=== PATIENT | female | born 1955 | race Caucasian/White ===

== ENCOUNTER 2019-02-15 06:41 | Inpatient (IN) | payer OTHER ==
[2019-02-15] MEDS ORDERED: IPRATROPIUM 0.5 MG/2.5 ML NEBU INHALATION STA (06:44)
[2019-02-15] MEDS ORDERED: ALBUTEROL NEBULIZED 2.5 MG/3 ML INHALATION STA (06:44)
--- NOTE | 2019-02-15 06:47 | ED ---
General Adult HPI - General Source: patient, EMS, RN notes reviewed, old records reviewed <Maciel Cabrera - Last Filed: 02/15/19 06:57> <Darrick Del Rio - Last Filed: 02/15/19 08:44> - General Stated complaint: EMMANUEL Time Seen by Provider: 02/15/19 06:44 - History of Present Illness Initial comments: 63-year-old female presents in severe respiratory distress. History is somewhat limited secondary. Patient was placed on BiPAP by EMS prior to arrival. Given albuterol, Atrovent, and IV Solu-Medrol. Patient is denying chest pain at the time my evaluation. She states she's had worsening cough and dyspnea for the past 2 days. She woke this morning with severe dyspnea. She does report subjective fever and chills. She has previous history of COPD. She states she previously was a heavy smoker but she has significantly cut back. Denies history of coronary artery disease or congestive heart failure. No history of DVT or PE. Denies lower extremity pain or swelling. Denies anterior chest pain. (Maciel Cabrera) - Related Data Allergies Allergy/AdvReac Type Severity Reaction Status Date / Time azithromycin [From Zithromax] Allergy Unknown Verified 02/15/19 07:16 naproxen [From Naprosyn] Allergy Unknown Verified 02/15/19 07:16 Sulfa (Sulfonamide Allergy Unknown Verified 02/15/19 07:16 Antibiotics) Review of Systems ROS Other: All systems not noted in ROS Statement are negative. <Maciel Cabrera - Last Filed: 02/15/19 06:57> ROS Other: All systems not noted in ROS Statement are negative. <Darrick Del Rio - Last Filed: 02/15/19 08:44> ROS Statement: Those systems with pertinent positive or pertinent negative responses have been documented in the HPI. General Exam General appearance: alert, in distress Head exam: Present: atraumatic, normocephalic Eye exam: Present: normal appearance, PERRL ENT exam: Present: mucous membranes dry Neck exam: Present: normal inspection. Absent: tenderness, meningismus Respiratory exam: Present: respiratory distress, wheezes, rhonchi, accessory mu scle use, decreased breath sounds, prolonged expiratory Cardiovascular Exam: Present: normal rhythm, tachycardia GI/Abdominal exam: Present: soft. Absent: distended, tenderness Extremities exam: Present: normal inspection, normal capillary refill. Absent: pedal edema, calf tenderness Neurological exam: Present: alert, oriented X3, CN II-XII intact. Absent: motor sensory deficit Psychiatric exam: Present: normal affect, normal mood Skin exam: Present: warm, dry, intact. Absent: cyanosis, diaphoretic <Maciel Cabrera - Last Filed: 02/15/19 06:57> Course <Maciel Cabrera - Last Filed: 02/15/19 06:57> Vital Signs 02/15/19 02/15/19 02/15/19 06:43 06:47 07:19 Pulse Rate 93 92 99 Respiratory 25 H Rate Blood Pressure 146/89 O2 Sat by Pulse 99 Oximetry 02/15/19 07:21 Pulse Rate 97 Respiratory 18 Rate Blood Pressure 154/78 O2 Sat by Pulse 97 Oximetry - Reevaluation(s) Reevaluation #1: 02/15/19 06:49 Patient's care is signed out at shift change to Dr. Del Rio, awaiting x-ray, laboratory testing and reevaluation. (Maciel Cabrera) EKG Findings - EKG Comments: EKG Findings:: EKG: Normal sinus rhythm, right atrial enlargement rate of 90, SC interval 184, QRS duration 78, QTC 428, no ST segment elevation <Maciel Cabrera - Last Filed: 02/15/19 06:57> Medical Decision Making - Lab Data Result diagrams: 02/15/19 06:56 02/15/19 06:56 <Darrick Del Rio - Last Filed: 02/15/19 08:44> - Medical Decision Making Patient care signed out to me by previous shift physician. Briefly, patient is 63-year-old female past medical history of COPD. Patient was initially placed on BiPAP by EMS per she is given breathing treatments and steroids. Patient was reevaluated upon arrival to the emergency Department with improvement of symptoms. Patient continues to smoke. She states she's been without her COPD medications for the last 1-2 weeks. Patient tolerating BiPAP well she is significantly improved while in the emergency department. Patient be admitted for COPD exacerbation. Patient be admitted to [facility]. Discussed patient case with Dr. Ferris (Darrick Del Rio) - Lab Data Lab Results 02/15/19 02/15/19 02/15/19 Range/Units 06:56 06:56 06:56 WBC 9.9 (3.8-10.6) k/uL RBC 5.33 (3.80-5.40) m/uL Hgb 14.6 (11.4-16.0) gm/dL Hct 46.9 H (34.0-46.0) % MCV 88.0 (80.0-100.0) fL MCH 27.4 (25.0-35.0) pg MCHC 31.1 (31.0-37.0) g/dL RDW 14.4 (11.5-15.5) % Plt Count 332 (150-450) k/uL Neutrophils % 57 % Lymphocytes % 21 % Monocytes % 4 % Eosinophils % 14 % Basophils % 1 % Neutrophils # 5.7 (1.3-7.7) k/uL Lymphocytes # 2.1 (1.0-4.8) k/uL Monocytes # 0.4 (0-1.0) k/uL Eosinophils # 1.4 H (0-0.7) k/uL Basophils # 0.1 (0-0.2) k/uL PT (9.0-12.0) sec INR (<1.2) APTT (22.0-30.0) sec Sodium 142 (137-145) mmol/L Potassium 4.8 (3.5-5.1) mmol/L Chloride 106 (98-107) mmol/L Carbon Dioxide 27 (22-30) mmol/L Anion Gap 9 mmol/L BUN 14 (7-17) mg/dL Creatinine 0.54 (0.52-1.04) mg/dL Est GFR (CKD-EPI)AfAm >90 (>60 ml/min/1.73 sqM) Est GFR (CKD-EPI)NonAf >90 (>60 ml/min/1.73 sqM) Glucose 134 H (74-99) mg/dL Plasma Lactic Acid Jack (0.7-2.0) mmol/L Calcium 9.8 (8.4-10.2) mg/dL Magnesium 2.0 (1.6-2.3) mg/dL Total Bilirubin 0.5 (0.2-1.3) mg/dL AST 20 (14-36) U/L ALT 22 (9-52) U/L Alkaline Phosphatase 71 (38-126) U/L Troponin I (0.000-0.034) ng/mL NT-Pro-B Natriuret Pep 153 pg/mL Total Protein 7.2 (6.3-8.2) g/dL Albumin 4.5 (3.5-5.0) g/dL 02/15/19 02/15/19 02/15/19 Range/Units 06:56 06:56 06:56 WBC (3.8-10.6) k/uL RBC (3.80-5.40) m/uL Hgb (11.4-16.0) gm/dL Hct (34.0-46.0) % MCV (80.0-100.0) fL MCH (25.0-35.0) pg MCHC (31.0-37.0) g/dL RDW (11.5-15.5) % Plt Count (150-450) k/uL Neutrophils % % Lymphocytes % % Monocytes % % Eosinophils % % Basophils % % Neutrophils # (1.3-7.7) k/uL Lymphocytes # (1.0-4.8) k/uL Monocytes # (0-1.0) k/uL Eosinophils # (0-0.7) k/uL Basophils # (0-0.2) k/uL PT 10.3 (9.0-12.0) sec INR 1.0 (<1.2) APTT 23.5 (22.0-30.0) sec Sodium (137-145) mmol/L Potassium (3.5-5.1) mmol/L Chloride (98-107) mmol/L Carbon Dioxide (22-30) mmol/L Anion Gap mmol/L BUN (7-17) mg/dL Creatinine (0.52-1.04) mg/dL Est GFR (CKD-EPI)AfAm (>60 ml/min/1.73 sqM) Est GFR (CKD-EPI)NonAf (>60 ml/min/1.73 sqM) Glucose (74-99) mg/dL Plasma Lactic Acid Jack 1.0 (0.7-2.0) mmol/L Calcium (8.4-10.2) mg/dL Magnesium (1.6-2.3) mg/dL Total Bilirubin (0.2-1.3) mg/dL AST (14-36) U/L ALT (9-52) U/L Alkaline Phosphatase (38-126) U/L Troponin I <0.012 (0.000-0.034) ng/mL NT-Pro-B Natriuret Pep pg/mL Total Protein (6.3-8.2) g/dL Albumin (3.5-5.0) g/dL Disposition <Maciel Cabrera - Last Filed: 02/15/19 06:57> Decision Time: 08:44 <Darrick Del Rio - Last Filed: 02/15/19 08:44> Clinical Impression: COPD (chronic obstructive pulmonary disease) Disposition: ADMITTED IP TO THIS HOSP Condition: Fair Referrals: None,Stated [Primary Care Provider] - 1-2 days
[2019-02-15 07:13] LABS: Basophils # (A) 0.1 k/uL (0-0.2); Basophils % (A) 1 %; Eosinophils # (A) 1.4 k/uL (0-0.7); Eosinophils % (A) 14 %; HCT 46.9 % (34.0-46.0); HGB 14.6 gm/dL (11.4-16.0); Lymphocytes # (A) 2.1 k/uL (1.0-4.8); Lymphocytes % (A) 21 %; MCH 27.4 pg (25.0-35.0); MCHC 31.1 g/dL (31.0-37.0); Mean Platelet Volume 7.1; Monocytes # (A) 0.4 k/uL (0-1.0); Monocytes % (A) 4 %; Neutrophils # (A) 5.7 k/uL (1.3-7.7); Neutrophils % (A) 57 %; Platelet Count 332 k/uL (150-450); RBC 5.33 m/uL (3.80-5.40); RDW 14.4 % (11.5-15.5); WBC 9.9 k/uL (3.8-10.6)
[2019-02-15 07:20] LABS: Partial Thromboplastin Time 23.5 sec (22.0-30.0); Prothrombin Time 10.3 sec (9.0-12.0)
[2019-02-15 07:22] LABS: ALT 22 U/L (9-52); AST 20 U/L (14-36); Albumin 4.5 g/dL (3.5-5.0); Alkaline Phosphatase 71 U/L (38-126); Anion Gap 9 mmol/L; Blood Urea Nitrogen 14 mg/dL (7-17); Calcium 9.8 mg/dL (8.4-10.2); Carbon Dioxide 27 mmol/L (22-30); Chloride 106 mmol/L (98-107); Glucose 134 mg/dL (74-99); Potassium 4.8 mmol/L (3.5-5.1); Sodium 142 mmol/L (137-145); Total Bilirubin 0.5 mg/dL (0.2-1.3); Total Protein 7.2 g/dL (6.3-8.2)
--- NOTE | 2019-02-15 07:59 | XR ---
EXAMINATION TYPE: XR chest 1V portable DATE OF EXAM: 02/15/2019 COMPARISON: NONE HISTORY: Difficulty breathing TECHNIQUE: Single frontal view of the chest is obtained. FINDINGS: Prominent lung volume could be indicative of underlying COPD. Patient is rotated, there are cardiac leads. Postop change noted at the left shoulder. The aorta is dense. There is no focal air s pace opacity, pleural effusion, or pneumothorax seen. The cardiac silhouette size is within normal l imits. The osseous structures are intact. IMPRESSION: No acute process.
[2019-02-15] MEDS ORDERED: IPRATROPIUM-ALBUTEROL 3 ML NEB INHALATION PRN (08:44)
[2019-02-15] MEDS ORDERED: predniSONE 20 MG TAB PO SCH (09:00)
[2019-02-15] MEDS ORDERED: PNEUMOCOCCAL VACC-PNEUMOVAX 23 25 MCG/0.5 ML VIAL IM ONE (09:38)
[2019-02-15] MEDS ORDERED: INFLUENZA VACCINE (6 MOS+) 60 MCG/0.5 ML SYRINGE IM ONE (09:38)
[2019-02-15] MEDS: ALPRAZolam 0.5 MG TAB PO PRN ×2 (10:55→20:59)
[2019-02-15] MEDS: DILTIAZEM CD 120 MG CAP.ER.24H PO SCH (10:59)
[2019-02-15] MEDS ORDERED: IPRATROPIUM-ALBUTEROL 3 ML NEB INHALATION SCH (13:00)
--- NOTE | 2019-02-15 14:56 | P.HPIM ---
History of Present Illness 63-year-old pleasant female with a known history of extensive nicotine abuse presently smoking only 2 cigarettes per day came in with complaints of shortness of breath going on for about 2-3 days patient required BiPAP and patient is presently on BiPAP was given albuterol ipratropium wound was started on oral prednisone which is now switched to IV steroids by pulmonology. There is no evidence of pneumonia on the chest x-ray patient doesn't use any oxygen at home denied any orthopnea proximal nocturnal dyspnea patient has significantly limited entry with extensive wheezing. Presently on BiPAP. Patient was also started on Augmentin by pulmonology and patient is ALLERGIC to azithromycin and sulfa drugs. Patient denied any fever chills doesn't have any leukocytosis. Patient is coughing unable to bring up anything, denied any chest pain Review of Systems REVIEW OF SYSTEMS: CONSTITUTIONAL: No fever, no malaise, no fatigue. HEENT: No recent visual problems or hearing problems. Denied any sore throat. CARDIOVASCULAR: No chest pain, orthopnea, PND, no palpitations, no syncope. PULMONARY:, No shortness of breath, no coug no hemoptysis. GASTROINTESTINAL: No diarrhea, no nausea, no vomiting, no abdominal pain. NEUROLOGICAL: No headaches, no weakness, no numbness. HEMATOLOGICAL: Denies any bleeding or petechiae. GENITOURINARY: Denies any burning micturition, frequency, or urgency. MUSCULOSKELETAL/RHEUMATOLOGICAL: Denies any joint pain, swelling, or any muscle pain. ENDOCRINE: Denies any polyuria or polydipsia. The rest of the 14-point review of systems is negative. Past Medical History Past Medical History: Atrial Fibrillation, Asthma, COPD, Osteoarthritis (OA) Additional Past Medical History / Comment(s): Brain aneurysum that is clipped, home oxygen at 2L/NC ATC, arthritis in several joints, chronic low back pain which involves L leg-numbness/tingling, scoliosis, seasonal allergies. History of Any Multi-Drug Resistant Organisms: None Reported Past Surgical History: Orthopedic Surgery, Tubal Ligation Additional Past Surgical History / Comment(s): Aneurysm brain surgery-clips, angiograms, lumbar surgery x 3-last surgery was a fusion, L shoulder rotator cuff repair and excision distal clavicle. Past Anesthesia/Blood Transfusion Reactions: No Reported Reaction Smoking Status: Current every day smoker - Past Family History Father Family Medical History: Coronary Artery Disease (CAD) Additional Family Medical History / Comment(s): Father had 3 vessel CABG. He at the age of 69 from heart disease. Mother Family Medical History: Myocardial Infarction (TN) Additional Family Medical History / Comment(s): Mother of a TN at the age of 42 yrs. Medications and Allergies Home Medications Medication Instructions Recorded Confirmed Type Budesonide-Formot 160-4.5 Mcg 1 puff INHALATION RT-BID 02/15/19 02/15/19 History [Symbicort 160-4.5 Mcg Inhaler] D-Methorphan/PE/Acetaminophen 1 cap PO ONCE PRN 02/15/19 02/15/19 History [Vicks Dayquil Liquicaps] Diltiazem HCl [Diltiazem 24Hr CD] 120 mg PO DAILY 02/15/19 02/15/19 History Ipratropium-Albuterol Nebulize 3 ml INHALATION RT-QID 02/15/19 02/15/19 History [Duoneb 0.5 mg-3 mg/3 ml Soln] Montelukast [Singulair] 10 mg PO HS 02/15/19 02/15/19 History Tiotropium 18 Mcg/Puff [Spiriva] 1 puff INHALATION RT-DAILY 02/15/19 02/15/19 History Allergies Allergy/AdvReac Type Severity Reaction Status Date / Time azithromycin [From Zithromax] Allergy Unknown Verified 02/15/19 07:16 naproxen [From Naprosyn] Allergy Unknown Verified 02/15/19 07:16 Sulfa (Sulfonamide Allergy Unknown Verified 02/15/19 07:16 Antibiotics) Physical Exam Vitals: Vital Signs Temp Pulse Pulse Resp BP BP Pulse Ox 02/15/19 13:01 104 H 02/15/19 12:50 104 H 02/15/19 12:11 97.2 F L 103 H 17 147/70 96 02/15/19 11:03 100 02/15/19 10:55 100 02/15/19 10:45 108 H 179/86 95 02/15/19 09:44 97.6 F 95 19 112/75 96 02/15/19 08:47 98 22 146/75 98 02/15/19 07:21 97 18 154/78 97 02/15/19 07:19 99 02/15/19 06:47 92 02/15/19 06:43 93 25 H 146/89 99 Intake and Output 02/14/19 02/15/19 02/15/19 22:59 06:59 14:59 Other: # Voids 2 Weight 79.379 kg PHYSICAL EXAMINATION: GENERAL: The patient is alert and oriented x3, not in any acute distress. Well developed, well nourished. HEENT: Pupils are round and equally reacting to light. EOMI. No scleral icterus. No conjunctival pallor. Normocephalic, atraumatic. No pharyngeal erythema. No thyromegaly. CARDIOVASCULAR: S1 and S2 present. No murmurs, rubs, or gallops. PULMONARY: Significant expiratory wheezing with limited air entry into bilateral lung coles ABDOMEN: Soft, nontender, nondistended, normoactive bowel sounds. No palpable organomegaly. MUSCULOSKELETAL: No joint swelling or deformity. EXTREMITIES: No cyanosis, clubbing, or pedal edema. NEUROLOGICAL: Gross neurological examination did not reveal any focal deficits. SKIN: No rashes. Results CBC & Chem 7: 02/15/19 06:56 02/15/19 06:56 Labs: Abnormal Lab Results - Last 24 Hours (Table) 02/15/19 02/15/19 Range/Units 06:56 06:56 Hct 46.9 H (34.0-46.0) % Eosinophils # 1.4 H (0-0.7) k/uL Glucose 134 H (74-99) mg/dL Thrombosis Risk Factor Assmnt - Choose All That Apply Any of the Below Risk Factors Present?: Yes Each Factor Represents 1 point: Abnormal pulmonary function (COPD), Obesity (BMI >25), Serious lung disease incl. pneumonia (< 1month) Other Risk Factors: Yes Each Risk Factor Represents 2 Points: Age 61-74 years Other congenital or acquired thrombophilia - If yes, enter type in comment: No Thrombosis Risk Factor Assessment Total Risk Factor Score: 5 Thrombosis Risk Factor Assessment Level: High Risk Assessment and Plan Plan: -Acute hypercapnic respiratory failure secondary to COPD exacerbation, patient was started on systemic steroids inhalational treatments and patient was started on Augmentin patient is on BiPAP try to wean off as tolerated to hyper high flow nasal cannula. -Continued nicotine use: Counseling was provided -Atrial fibrillation presently rate controlled patient is on diltiazem at home which will be continued patient was not started on the anticoagulation, will discuss with the patient regarding anticoagulation. -Gastroesophageal reflux disease continue with famotidine -Patient will need pharmacologic GI and DVT prophylaxis
[2019-02-15] MEDS: methylPREDNISolone SOD SUCCI 125 MG/2 ML VIAL IV SCH ×3 (15:06→23:12)
[2019-02-15] MEDS: HEPARIN SODIUM,PORCINE 5,000 UNIT/ML 1 ML VIAL SQ SCH ×2 (15:06→23:12)
[2019-02-15] MEDS: AMOXIC-POT CLAV 875-125MG 1 EACH TAB PO SCH ×2 (15:07→19:55)
[2019-02-15] MEDS: IPRATROPIUM-ALBUTEROL 3 ML NEB INHALATION SCH ×2 (15:19→19:19)
[2019-02-15] MEDS ORDERED: IPRATROPIUM 0.5 MG/2.5 ML NEBU INHALATION SCH (16:00)
--- NOTE | 2019-02-15 17:41 | CONS ---
CONSULTATION This is a pulmonary/critical care. REASON FOR CONSULTATION: COPD exacerbation. HISTORY OF PRESENT ILLNESS: This is a 63-year-old female who recently moved to [place] from [place]. 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 She apparently must have pretty significant COPD because she is on O2 2 L/minute . She was brought into the emergency room to see one of the ER doctors yesterday with shortness of breath. She had gabriella respiratory distress. She was placed on BiPAP by EMS prior to arrival and given IV Solu-Medrol, albuterol and Atrovent updraft treatments. She denied chest pain at the time of the evaluation. She had worsening cough and increasing shortness of breath for about 2 days prior to admission. She apparently did have some fever and chills. She does have a well-established history of COPD. Again, does not see any doctors in this area. She denies any nausea, vomiting or diarrhea. Denies any urinary symptoms. ALLERGIES: HER ALLERGIES ARE REVIEWED. SHE APPARENTLY IS ALLERGIC TO ZITHROMAX AND NAPROSYN. SHE IS ALSO ALLERGIC TO SULFA ANTIBIOTICS. HOME MEDICATIONS: Include: 1. Spiriva. 2. Singulair. 3. DuoNeb updrafts. 4. Cardizem. 5. Fixed DayQuil liquid caps. 6. Symbicort. PAST MEDICAL HISTORY: Includes COPD primarily and hypertension. SOCIAL HISTORY: Positive for ongoing tobacco use. She denies any significant alcohol use or any illicit drug use. OCCUPATIONAL HISTORY: Noncontributory. PAST SURGICAL HISTORY: Surgical history is mostly remote. REVIEW OF SYSTEMS: CONSTITUTIONAL: Negative. NEUROLOGIC: Negative. HEENT negative. CARDIOVASCULAR: Negative. PULMONARY: Shortness of breath, chest tightness, wheezing and cough with minimal phlegm production. GI negative. : Negative. RHEUMATOLOGIC negative. IMMUNOLOGIC negative. ENDOCRINOLOGIC negative. DERMATOLOGIC negative. PHYSICAL EXAMINATION: VITAL SIGNS: Vital signs are reviewed. Temperature is 97.2, heart rate 100, respiratory rate 17, blood pressure 147/70. She is currently on a BiPAP at 12 and 5 and 30%. Saturations are 96%. GENERAL: Appears in no acute distress. Mild conversational dyspnea. No audible wheezing. No use of accessory muscles. HEENT examination is grossly unremarkable. BiPAP mask in place. NECK: Supple. Full range of motion. No adenopathy, thyromegaly or neck vein distention. CARDIOVASCULAR EXAMINATION reveals regular rhythm rate. S1, S2 normal. No S3, S4, or murmur. LUNGS: Severely diminished breath sounds. There is diffuse inspiratory and expiratory wheezes and rhonchi. Breath sounds are coarse. No crackles. There is prolongation on forced maneuver. Adventitious lung sounds are more prominent on forced maneuver. ABDOMEN: Soft. Bowel sounds are heard. No masses or tenderness. EXTREMITIES: Are intact. No cyanosis, clubbing, or edema. SKIN: Without rash. NEUROLOGIC: Examination is brief but nonfocal. X-RAY: Done in the emergency department at 6 o'clock this morning shows no acute process. LAB DATA: Reviewed. White count 9.9, hemoglobin 14.6, hematocrit 46.9, platelet count normal. PT/INR, PTT normal. Electrolytes all normal. MEDICATIONS: Current medications include Xanax, Symbicort, diltiazem, famotidine, updrafts with albuterol and Atrovent, Singulair, and prednisone 40 mg a day. ASSESSMENT: 1. Chronic obstructive pulmonary disease exacerbation complicated by mild purulent tracheobronchitis. 2. History of ongoing tobacco use and nicotine addiction. 3. History of hypertension. PLAN: The patient's medications are reviewed. We will DC the oral prednisone and put her on IV Solu-Medrol. We will also make sure that she is on Pulmicort 1 mg mixed with formoterol twice a day. We will add an oral antibiotic. Additional recommendations and suggestions are forthcoming. We will also get her on a nicotine patch. Finally, she will see me in the office post discharge for pulmonary function tests and staging of her COPD. I also counseled about the importance of smoking cessation. MMODL / IJN: [id number] /
[2019-02-15] MEDS: FORMOTEROL FUMARATE 20 MCG/2 ML NEBU INHALATION SCH (19:19)
[2019-02-15] MEDS: BUDESONIDE 1 MG/2 ML NEBU INHALATION SCH (19:19)
[2019-02-15] MEDS: MONTELUKAST 10 MG TAB PO SCH (19:55)
[2019-02-15] MEDS: FAMOTIDINE 20 MG TAB PO SCH (19:55)
[2019-02-15] MEDS ORDERED: SYMBICORT 160-4.5 MCG INHALER INHALATION SCH (20:00)
[2019-02-16] MEDS: IPRATROPIUM-ALBUTEROL 3 ML NEB INHALATION PRN ×3 (00:06→23:07)
[2019-02-16] MEDS: methylPREDNISolone SOD SUCCI 125 MG/2 ML VIAL IV SCH ×4 (05:19→22:31)
[2019-02-16] MEDS: BUDESONIDE 1 MG/2 ML NEBU INHALATION SCH ×2 (07:21→18:42)
[2019-02-16] MEDS: FORMOTEROL FUMARATE 20 MCG/2 ML NEBU INHALATION SCH ×2 (07:21→18:56)
[2019-02-16] MEDS: IPRATROPIUM-ALBUTEROL 3 ML NEB INHALATION SCH ×4 (07:21→18:42)
[2019-02-16] MEDS: ALPRAZolam 0.5 MG TAB PO PRN ×2 (08:32→22:32)
[2019-02-16] MEDS: FAMOTIDINE 20 MG TAB PO SCH ×2 (08:35→20:21)
[2019-02-16] MEDS: DILTIAZEM CD 120 MG CAP.ER.24H PO SCH (08:35)
[2019-02-16] MEDS: AMOXIC-POT CLAV 875-125MG 1 EACH TAB PO SCH ×2 (08:35→20:22)
[2019-02-16] MEDS: HEPARIN SODIUM,PORCINE 5,000 UNIT/ML 1 ML VIAL SQ SCH ×3 (08:35→22:30)
--- NOTE | 2019-02-16 13:29 | P.PN ---
Subjective Progress Note Date: 02/16/19 Principal diagnosis: Acute exacerbation of chronic obstructive pulmonary disease The patient is seen again today in follow-up 02/16/2019 on the regular medical floor. She is awake and alert in no acute distress. She is tolerating her treatment for her COPD exacerbation. She is improved compared to yesterday. Not quite back to her baseline. Still somewhat bronchospastic and wheezy. Maintaining O2 saturations in the upper 90s on 3 L/m per nasal cannula. Afebrile. Hemodynamically stable. Blood cultures reveal no growth. He continues on DuoNeb inhalations, Pulmicort and Perforomist inhalations, Augmentin, Singulair, IV Solu-Medrol. Objective - Vital Signs Vital signs: Vital Signs Temp 96.7 F L 02/16/19 12:42 Pulse 68 02/16/19 12:42 Resp 18 02/16/19 12:42 BP 124/59 02/16/19 12:42 Pulse Ox 97 02/16/19 12:42 Intake & Output 02/15/19 02/16/19 02/16/19 18:59 06:59 18:59 Intake Total 590 Balance 590 Intake: Oral 590 Other: # Voids 2 2 - Exam GENERAL EXAM: Very pleasant 63-year-old female patient. Alert, active, comfortable in no apparent distress. On 3 L nasal cannula. HEAD: Normocephalic. EYES: Normal reaction of pupils, equal size. NOSE: Clear with pink turbinates. THROAT: No erythema or exudates. NECK: No masses, no JVD. CHEST: No chest wall deformity. LUNGS: Equal air entry with bilateral wheeze, diminished throughout. CVS: S1 and S2 normal with no audible murmur, regular rhythm. ABDOMEN: No hepatosplenomegaly, normal bowel sounds, no guarding or rigidity. SPINE: No scoliosis or deformity SKIN: No rashes CENTRAL NERVOUS SYSTEM: No focal deficits, tone is normal in all 4 extremities. EXTREMITIES: There is no peripheral edema. No clubbing, no cyanosis. Peripheral pulses are intact. - Labs CBC & Chem 7: 02/15/19 06:56 02/15/19 06:56 Labs: Microbiology - Last 24 Hours (Table) 02/15/19 07:20 Blood Culture - Preliminary Blood No Growth after 24 hours Assessment and Plan Assessment: Impression: #1 Acute exacerbation of chronic obstructive pulmonary disease, complicated by purulent tracheobronchitis. #2 Chronic and ongoing tobacco dependence. #3 Hypertension. Plan: The patient was seen and evaluated by Dr. Winn. She is improved today as compared to yesterday. Not quite back to her baseline. Continue with her current medications. Increase her activity as tolerated. Again educated regarding the importance of complete smoking cessation. NicoDerm patches in place. Probable discharge in the a.m. I, the cosigning physician, performed a history & physical examination of the patient. Lungs sounds with bilateral end expiratory wheeze, diminished. Maintaining good O2 saturations in the 90s on 3 L/m per nasal cannula. I dis cussed the assessment and plan of care with my nurse practitioner, Zoey Marks. I attest to the above note as dictated by her.
--- NOTE | 2019-02-16 16:08 | P.PN ---
Subjective Patient was admitted for COPD exacerbation and acute hypercapnic respiratory failure secondary to that patient does have significant wheezing off BiPAP now patient is presently on 3 L of onset uses 2-3 L at home. Patient is still wheezing quite a bit. Shortness of breath although significant improved. Constitutional: Denied any fatigue denied any fever. Cardio vascular: denied any chest pain, palpitations Gastrointestinal denied any nausea vomiting Pulmonary: As mentioned in HPI Neurologic denied any new focal deficits All inpatient medications were reviewed and appropriate changes in these medications as dictated in the interval history and assessment and plan. Objective - Vital Signs Vital signs: Vital Signs Temp 96.7 F L 02/16/19 12:42 Pulse 94 02/16/19 15:22 Resp 20 02/16/19 15:22 BP 124/59 02/16/19 12:42 Pulse Ox 93 L 02/16/19 15:11 Intake & Output 02/15/19 02/16/19 02/16/19 18:59 06:59 18:59 Intake Total 590 790 Balance 590 790 Intake: Oral 590 790 Other: # Voids 2 2 5 - Exam PHYSICAL EXAMINATION: GENERAL: The patient is alert and oriented x3, not in any acute distress. Well developed, well nourished. HEENT: Pupils are round and equally reacting to light. EOMI. No scleral icterus. No conjunctival pallor. Normocephalic, atraumatic. No pharyngeal erythema. No thyromegaly. CARDIOVASCULAR: S1 and S2 present. No murmurs, rubs, or gallops. PULMONARY: Significant expiratory wheezing with limited air entry into bilateral lung coles ABDOMEN: Soft, nontender, nondistended, normoactive bowel sounds. No palpable organomegaly. MUSCULOSKELETAL: No joint swelling or deformity. EXTREMITIES: No cyanosis, clubbing, or pedal edema. NEUROLOGICAL: Gross neurological examination did not reveal any focal deficits. SKIN: No rashes. - Labs CBC & Chem 7: 02/15/19 06:56 02/15/19 06:56 Labs: Microbiology - Last 24 Hours (Table) 02/15/19 07:20 Blood Culture - Preliminary Blood No Growth after 24 hours Assessment and Plan Plan: -Acute hypercapnic respiratory failure secondary to COPD exacerbation, patient was started on systemic steroids inhalational treatments and patient is on Augmentin patient is on BiPAP try to wean off as tolerated to hyper high flow nasal cannula. -Continued nicotine use: Counseling was provided -Atrial fibrillation presently rate controlled patient is on diltiazem at home which will be continued patient was not started on the anticoagulation, will discuss with the patient regarding anticoagulation. -Gastroesophageal reflux disease continue with famotidine -Patient will need pharmacologic GI and DVT prophylaxis
[2019-02-16] MEDS: MONTELUKAST 10 MG TAB PO SCH (20:21)
[2019-02-17] MEDS: methylPREDNISolone SOD SUCCI 125 MG/2 ML VIAL IV SCH ×4 (05:07→23:07)
[2019-02-17] MEDS: FORMOTEROL FUMARATE 20 MCG/2 ML NEBU INHALATION SCH ×2 (08:23→20:29)
[2019-02-17] MEDS: BUDESONIDE 1 MG/2 ML NEBU INHALATION SCH ×2 (08:23→20:29)
[2019-02-17] MEDS: IPRATROPIUM-ALBUTEROL 3 ML NEB INHALATION SCH ×4 (08:23→20:29)
[2019-02-17] MEDS: FAMOTIDINE 20 MG TAB PO SCH ×2 (08:42→20:52)
[2019-02-17] MEDS: DILTIAZEM CD 120 MG CAP.ER.24H PO SCH (08:42)
[2019-02-17] MEDS: AMOXIC-POT CLAV 875-125MG 1 EACH TAB PO SCH ×2 (08:42→20:51)
[2019-02-17] MEDS: HEPARIN SODIUM,PORCINE 5,000 UNIT/ML 1 ML VIAL SQ SCH ×3 (08:42→23:07)
[2019-02-17] MEDS ORDERED: INFLUENZA VACCINE (6 MOS+) 60 MCG/0.5 ML SYRINGE IM ONE (08:49)
[2019-02-17] MEDS: ALPRAZolam 0.5 MG TAB PO PRN ×2 (09:36→20:57)
--- NOTE | 2019-02-17 11:48 | P.PN ---
Subjective Progress Note Date: 02/17/19 Principal diagnosis: Acute exacerbation of chronic obstructive pulmonary disease The patient is seen again today in follow-up 02/16/2019 on the regular medical floor. She is awake and alert in no acute distress. She is tolerating her treatment for her COPD exacerbation. She is improved compared to yesterday. Not quite back to her baseline. Still somewhat bronchospastic and wheezy. Maintaining O2 saturations in the upper 90s on 3 L/m per nasal cannula. Afebrile. Hemodynamically stable. Blood cultures reveal no growth. He continues on DuoNeb inhalations, Pulmicort and Perforomist inhalations, Augmentin, Singulair, IV Solu-Medrol. On 02/17/2018 patient seen in follow-up on medical surgical floor. She continues to improve, breathing easier, still has some expiratory wheezing, but overall less bronchospastic, she remains on 3 L of oxygen, she did wear BiPAP ma sk last night, she's been afebrile, hemodynamically stable, no new labs today, or chest x-rays. No acute events overnight, patient has been treated with combination of 5 nebulized bronchodilators, IV steroids, Singulair, and empiric antibiotics. She is improving, from pulmonary perspective she stable for discharge home today, she will need to follow up with Dr. Winn in the office, she has requested Dr. Winn to be her primary care provider is well, we will rule out to check with her insurance and see if that is something they will allow. Objective - Vital Signs Vital signs: Vital Signs Temp 97.7 F 02/17/19 05:00 Pulse 88 02/17/19 08:50 Resp 18 02/17/19 05:00 BP 118/59 02/17/19 05:00 Pulse Ox 91 L 02/17/19 05:00 Intake & Output 02/16/19 02/17/19 02/17/19 18:59 06:59 18:59 Intake Total 790 500 Balance 790 500 Intake: Oral 790 500 Other: Voiding Method Toilet Toilet # Voids 5 2 - Exam GENERAL EXAM: Alert, pleasant, 63-year-old white female on 3 L of oxygen comfortable in no apparent distress. HEAD: Normocephalic/atraumatic. EYES: Normal reaction of pupils, equal size. Conjunctiva pink, sclera white. NOSE: Clear with pink turbinates. THROAT: No erythema or exudates. NECK: No masses, no JVD, no thyroid enlargement, no adenopathy. CHEST: No chest wall deformity. Symmetrical expansion. LUNGS: Equal air entry with diffuse end expiratory wheezes CVS: Regular rate and rhythm, normal S1 and S2, no gallops, no murmurs, no rubs ABDOMEN: Soft, nontender. No hepatosplenomegaly, normal bowel sounds, no guarding or rigidity. EXTREMITIES: No clubbing, no edema, no cyanosis, 2+ pulses and upper and lower extremities. MUSCULOSKELETAL: Muscle strength and tone normal. SPINE: No scoliosis or deformity SKIN: No rashes CENTRAL NERVOUS SYSTEM: Alert and oriented -3. No focal deficits, tone is normal in all 4 extremities. PSYCHIATRIC: Alert and oriented -3. Appropriate affect. Intact judgment and insight. - Labs CBC & Chem 7: 02/15/19 06:56 02/15/19 06:56 Labs: Microbiology - Last 24 Hours (Table) 02/15/19 07:20 Blood Culture - Preliminary Blood No Growth after 48 hours Assessment and Plan Plan: Assessment: #1 Acute exacerbation of chronic obstructive pulmonary disease, complicated by purulent tracheobronchitis. #2 Chronic and ongoing tobacco dependence. #3 Hypertension. Plan: Patient continues to improve, no acute events overnight, she is breathing easier. She still has some residual wheezing, but overall improved, she is stable for discharge home today, on a course of oral antibiotics, prednisone taper, she has oxygen and nebulized treatments at home, her insurance stopped covering Symbicort, we will have to decide on the maintenance inhaler during the follow-up visit, and I'll continue with DuoNeb's, no Spiriva. Follow-up with Dr. Dr. Winn in 7-10 days I performed a history & physical examination of the patient and discussed their management with my nurse practitioner, Darcy Mccartney. I reviewed the nurse practitioner's note and agree with the documented findings and plan of care. Lung sounds are and expiratory wheezes. The findings and the impression was discussed with the patient. I attest to the documentation by the nurse practitioner. Time with Patient: Less than 30
--- NOTE | 2019-02-17 14:19 | CDI ---
Documentation Clarification Form Date: 02/17/2019 1:53:00 PM From: Rosalie Stevens RN, CCDS Admit Date: 02/15/2019 8:44:00 AM Patient Name: Cholo Bhatt Visit Number: [id number] Discharge Date: ATTENTION: The Clinical Documentation Specialists (CDI) and [facility] Coding Staff appreciate your assistance in clarifying documentation. Please respond to the clarification below the line at the bottom and electronically sign. The CDI & [facility] Coding staff will review the response and follow-up if needed. Please note: Queries are made part of the Legal Health Record. If you have any questions, please contact the author of this message via ITS. Dr. Tram Mccarty Atrial Fibrillation is documented in your H/P and ongoing progress notes and additional clarification is needed. History/Risk Factors: Atrial Fibrillation, COPD, Current every day smoker, Home oxygen at 2/L ATC Clinical Indicators: 63-year-old female present with complaints of worsening cough and dyspnea for the past 2 days. She is on medication for ongoing treatment of atrial fibrillation. EKG/telemetry: Normal sinus rhythm, at 90 bpm Treatment: Cardizem PO Discussion r/t anticoagulation In your professional opinion, can you please clarify the type of Atrial Fibrillation, if known? Chronic/Permanent Paroxysmal Persistent Other, please specify Unable to determine (Last Revision: January 2018) Already dictated refer to the note MTDD
--- NOTE | 2019-02-17 14:33 | P.DS ---
Providers Date of admission: 02/15/19 08:44 Attending physician: Ghassan Bhatti Consults: 02/15/19 13:07 Consult Physician Routine Consulting Provider: Maciel Winn Consult Reason/Comments: COPD exac Do you want consulting provider notified?: Yes Primary care physician: Stated None Hospital Course: Patient was admitted for COPD exacerbation and acute hypercapnic respiratory failure secondary to that patient does have significant wheezing off BiPAP now patient is presently on 3 L of onset uses 2-3 L at home. Patient is still wheezing quite a bit. Shortness of breath although significant improved. 02/17/2019 Patient is still wheezing significantly although believes that she can go home and she is at her baseline will ablate the patient on 2 L if she is saturating well patient will be discharged. Patient is expected to wheeze for few days because of which pulmonary cleared her and patient feels comfortable going home. Patient will be discharged on Augmentin for bronchitis for few days and prednisone for few more days. PHYSICAL EXAMINATION: GENERAL: The patient is alert and oriented x3, not in any acute distress. Well developed, well nourished. HEENT: Pupils are round and equally reacting to light. EOMI. No scleral icterus. No conjunctival pallor. Normocephalic, atraumatic. No pharyngeal erythema. No thyromegaly. CARDIOVASCULAR: S1 and S2 present. No murmurs, rubs, or gallops. PULMONARY: Significant expiratory wheezing with limited air entry into bilateral lung coles ABDOMEN: Soft, nontender, nondistended, normoactive bowel sounds. No palpable organomegaly. MUSCULOSKELETAL: No joint swelling or deformity. EXTREMITIES: No cyanosis, clubbing, or pedal edema. NEUROLOGICAL: Gross neurological examination did not reveal any focal deficits. SKIN: No rashes. 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 Patient appears to have paroxysmal atrial fibrillation presently sinus rhythm -Gastroesophageal reflux disease continue with famotidine Patient Condition at Discharge: Fair Plan - Discharge Summary Discharge Rx Participant: No New Discharge Prescriptions: New Amoxic-Pot Clav 875-125Mg [Augmentin 875-125] 1 each PO Q12HR #6 tab Ranitidine HCl [Zantac] 150 mg PO BID #30 tab predniSONE 10 mg PO DAILY #30 tab Continue Tiotropium 18 Mcg/Puff [Spiriva] 1 puff INHALATION RT-DAILY Montelukast [Singulair] 10 mg PO HS Ipratropium-Albuterol Nebulize [Duoneb 0.5 mg-3 mg/3 ml Soln] 3 ml INHALATION RT-QID Diltiazem HCl [Diltiazem 24Hr CD] 120 mg PO DAILY Budesonide-Formot 160-4.5 Mcg [Symbicort 160-4.5 Mcg Inhaler] 1 puff INHALATION RT-BID D-Methorphan/PE/Acetaminophen [Vicks Dayquil Liquicaps] 1 cap PO ONCE PRN PRN Reason: Cold Symptoms Discharge Medication List Budesonide-Formot 160-4.5 Mcg [Symbicort 160-4.5 Mcg Inhaler] 1 puff INHALATION RT-BID 02/15/19 [History] D-Methorphan/PE/Acetaminophen [Vicks Dayquil Liquicaps] 1 cap PO ONCE PRN 02/15/19 [History] Diltiazem HCl [Diltiazem 24Hr CD] 120 mg PO DAILY 02/15/19 [History] Ipratropium-Albuterol Nebulize [Duoneb 0.5 mg-3 mg/3 ml Soln] 3 ml INHALATION RT-QID 02/15/19 [History] Montelukast [Singulair] 10 mg PO HS 02/15/19 [History] Tiotropium 18 Mcg/Puff [Spiriva] 1 puff INHALATION RT-DAILY 02/15/19 [History] Amoxic-Pot Clav 875-125Mg [Augmentin 875-125] 1 each PO Q12HR #6 tab 02/17/19 [Rx] Ranitidine HCl [Zantac] 150 mg PO BID #30 tab 02/17/19 [Rx] predniSONE 10 mg PO DAILY #30 tab 02/17/19 [Rx] Follow up Appointment(s)/Referral(s): Frankie Pichardo MD [REFERRING] - 1 Week Maciel Winn DO [Doctor of Osteopathic Medicine] - 1 Week None,Stated [Primary Care Provider] - 1-2 days Discharge Disposition: HOME SELF-CARE
[2019-02-17] MEDS: MONTELUKAST 10 MG TAB PO SCH (20:52)
[2019-02-18] MEDS: IPRATROPIUM-ALBUTEROL 3 ML NEB INHALATION PRN (03:10)
[2019-02-18 05:16] VITALS: RESP 16
[2019-02-18] MEDS: methylPREDNISolone SOD SUCCI 125 MG/2 ML VIAL IV SCH ×2 (06:04→12:34)
[2019-02-18] MEDS: IPRATROPIUM-ALBUTEROL 3 ML NEB INHALATION SCH ×3 (07:22→16:14)
[2019-02-18] MEDS: FORMOTEROL FUMARATE 20 MCG/2 ML NEBU INHALATION SCH (07:22)
[2019-02-18] MEDS: BUDESONIDE 1 MG/2 ML NEBU INHALATION SCH (07:22)
[2019-02-18] MEDS: HEPARIN SODIUM,PORCINE 5,000 UNIT/ML 1 ML VIAL SQ SCH (08:57)
[2019-02-18] MEDS: FAMOTIDINE 20 MG TAB PO SCH (08:58)
[2019-02-18] MEDS: DILTIAZEM CD 120 MG CAP.ER.24H PO SCH (08:58)
[2019-02-18] MEDS: AMOXIC-POT CLAV 875-125MG 1 EACH TAB PO SCH (08:58)
[2019-02-18] MEDS: ALPRAZolam 0.5 MG TAB PO PRN ×2 (09:04→17:01)
[2019-02-18 11:56] VITALS: BP 146/77; TEMP 97.8
--- NOTE | 2019-02-18 13:45 | P.PN ---
Subjective Progress Note Date: 02/18/19 Principal diagnosis: Acute exacerbation of chronic obstructive pulmonary disease The patient is seen today 02/18/2019 in follow-up on the regular medical floor. She is awake and alert in no acute distress. She is still not quite back to her baseline. She was out ambulating with assistance and developed significant shortness of breath and take her a bit to recover. She is still bronchus spastic and wheezy today. Not quite ready for discharge. We'll culture reveals no growth. She is maintained on DuoNeb inhalations, Pulmicort and Perforomist inhalations, IV Solu-Medrol, Singulair and antibiotics in the form of Augmentin. Maintaining O2 saturations in the 90s on 3 L/m per nasal cannula. Afebrile. Hemodynamically stable. Objective - Vital Signs Vital signs: Vital Signs Temp 97.8 F 02/18/19 11:29 Pulse 92 02/18/19 12:07 Resp 16 02/18/19 11:29 BP 146/77 02/18/19 11:29 Pulse Ox 91 L 02/18/19 13:30 Intake & Output 02/17/19 02/18/19 02/18/19 18:59 06:59 18:59 Intake Total 100 Balance 100 Intake: Oral 100 Other: Voiding Method Toilet Toilet # Voids 4 1 - Exam GENERAL EXAM: Very pleasant 63-year-old female patient. Alert, active, comfortable in no apparent distress. On 3 L nasal cannula. HEAD: Normocephalic. EYES: Normal reaction of pupils, equal size. NOSE: Clear with pink turbinates. THROAT: No erythema or exudates. NECK: No masses, no JVD. CHEST: No chest wall deformity. LUNGS: Equal air entry with bilateral wheeze, diminished throughout. CVS: S1 and S2 normal with no audible murmur, regular rhythm. ABDOMEN: No hepatosplenomegaly, normal bowel sounds, no guarding or rigidity. SPINE: No scoliosis or deformity SKIN: No rashes CENTRAL NERVOUS SYSTEM: No focal deficits, tone is normal in all 4 extremities. EXTREMITIES: There is no peripheral edema. No clubbing, no cyanosis. Periph eral pulses are intact. - Labs CBC & Chem 7: 02/15/19 06:56 02/15/19 06:56 Labs: Microbiology - Last 24 Hours (Table) 02/15/19 07:20 Blood Culture - Preliminary Blood No Growth after 72 hours Assessment and Plan Assessment: Impression: #1 Acute exacerbation of chronic obstructive pulmonary disease, complicated by purulent tracheobronchitis. #2 Chronic and ongoing tobacco dependence. #3 Hypertension. Plan: The patient was seen and evaluated by Dr. Winn. She has been slow to progress. Not quite back to her baseline. Continue with her current medications. Increase her activity as tolerated. Again educated regarding the importance of complete smoking cessation. NicoDerm patch is in place. We will continue to follow and make further recommendations based on her clinical status. I, the cosigning physician, performed a history & physical examination of the patient. Lungs sounds with bilateral end expiratory wheeze, diminished. Maintaining good O2 saturations in the 90s on 3 L/m per nasal cannula. I discussed the assessment and plan of care with my nurse practitioner, Zoey Marks. I attest to the above note as dictated by her.
--- NOTE | 2019-02-18 14:16 | P.DS ---
Providers Date of admission: 02/15/19 08:44 Attending physician: Ghassan Bhatti Consults: 02/15/19 13:07 Consult Physician Routine Consulting Provider: Maciel Winn Reason/Comments: COPD exac Do you want consulting provider notified?: Yes Primary care physician: Stated None Hospital Course: Patient desaturated upon ablation because of which the patient was not discharged yesterday. Patient is doing better today saturating well on 3 L of oxygen will be discharged today. Although patient still has significant wheezing, which apparently is her baseline and patient wanted to be discharged. Patient's FEV1 is only 17%, extensive counseling regarding nicotine use was provided patient is willing to completely quit smoking. Patient's prognosis is extremely poor high risk for readmission. PHYSICAL EXAMINATION: GENERAL: The patient is alert and oriented x3, not in any acute distress. Well developed, well nourished. HEENT: Pupils are round and equally reacting to light. EOMI. No scleral icterus. No conjunctival pallor. Normocephalic, atraumatic. No pharyngeal erythema. No thyromegaly. CARDIOVASCULAR: S1 and S2 present. No murmurs, rubs, or gallops. PULMONARY: Still has significant expiratory wheeze but better than yesterday ABDOMEN: Soft, nontender, nondistended, normoactive bowel sounds. No palpable organomegaly. MUSCULOSKELETAL: No joint swelling or deformity. EXTREMITIES: No cyanosis, clubbing, or pedal edema. NEUROLOGICAL: Gross neurological examination did not reveal any focal deficits. SKIN: No rashes. Please refer to my discharge summary from yesterday for further details Patient Condition at Discharge: Fair Plan - Discharge Summary Discharge Rx Participant: No New Discharge Prescriptions: New Amoxic-Pot Clav 875-125Mg [Augmentin 875-125] 1 each PO Q12HR #6 tab Ranitidine HCl [Zantac] 150 mg PO BID #30 tab predniSONE 10 mg PO DAILY #30 tab Continue Tiotropium 18 Mcg/Puff [Spiriva] 1 puff INHALATION RT-DAILY Montelukast [Singulair] 10 mg PO HS Ipratropium-Albuterol Nebulize [Duoneb 0.5 mg-3 mg/3 ml Soln] 3 ml INHALATION RT-QID Diltiazem HCl [Diltiazem 24Hr CD] 120 mg PO DAILY Budesonide-Formot 160-4.5 Mcg [Symbicort 160-4.5 Mcg Inhaler] 1 puff INHALATION RT-BID D-Methorphan/PE/Acetaminophen [Vicks Dayquil Liquicaps] 1 cap PO ONCE PRN PRN Reason: Cold Symptoms Discharge Medication List Budesonide-Formot 160-4.5 Mcg [Symbicort 160-4.5 Mcg Inhaler] 1 puff INHALATION RT-BID 02/15/19 [History] D-Methorphan/PE/Acetaminophen [Vicks Dayquil Liquicaps] 1 cap PO ONCE PRN 02/15/19 [History] Diltiazem HCl [Diltiazem 24Hr CD] 120 mg PO DAILY 02/15/19 [History] Ipratropium-Albuterol Nebulize [Duoneb 0.5 mg-3 mg/3 ml Soln] 3 ml INHALATION RT-QID 02/15/19 [History] Montelukast [Singulair] 10 mg PO HS 02/15/19 [History] Tiotropium 18 Mcg/Puff [Spiriva] 1 puff INHALATION RT-DAILY 02/15/19 [History] Amoxic-Pot Clav 875-125Mg [Augmentin 875-125] 1 each PO Q12HR #6 tab 02/17/19 [Rx] Ranitidine HCl [Zantac] 150 mg PO BID #30 tab 02/17/19 [Rx] predniSONE 10 mg PO DAILY #30 tab 02/17/19 [Rx] Follow up Appointment(s)/Referral(s): Frankie Pichardo MD [REFERRING] - 03/01/19 2:00 pm Maciel iWnn DO [Doctor of Osteopathic Medicine] - 03/10/19 2:00 pm None,Stated [Primary Care Provider] - 1-2 days Discharge Disposition: HOME SELF-CARE
[2019-02-18 16:17] VITALS: PULSE 98
== END 2019-02-18 17:29 | disposition home or self-care (01) | DRG 190 ==
LOC: EC 06:41 → 3NMEDONC 08:44
PROVIDERS: ADMIT Hospitalist; ATTEND Hospitalist
DX: J44.1 Chronic obstructive pulmonary disease with (acute) exacerbation (principal); J96.02 Acute respiratory failure with hypercapnia; F17.210 Nicotine dependence, cigarettes, uncomplicated; I10 Essential (primary) hypertension; I48.0 Paroxysmal atrial fibrillation; K21.9 Gastro-esophageal reflux disease without esophagitis; M41.9 Scoliosis, unspecified; G89.29 Other chronic pain; J30.2 Other seasonal allergic rhinitis; M54.5 Low back pain; M15.9 Polyosteoarthritis, unspecified; Z79.51 Long term (current) use of inhaled steroids; Z79.899 Other long term (current) drug therapy; Z88.1 Allergy status to other antibiotic agents; Z88.6 Allergy status to analgesic agent; Z88.2 Allergy status to sulfonamides; Z98.51 Tubal ligation status; Z82.49 Family history of ischemic heart disease and other diseases of the circulatory system
CPT/HCPCS: 36415; 71045; 80053; 83605; 83735; 83880; 84484; 85025; 85610; 85730; 87040; 90686; 93005; 94640; 94660; 94760; 99285

== ENCOUNTER 2019-02-20 22:04 | Emergency (ER) | payer OTHER ==
[2019-02-20 22:26] LABS: Glucose,Whole Blood 117 mg/dL (75-99)
--- NOTE | 2019-02-20 22:26 | CT ---
EXAM: CT Head Without Intravenous Contrast CLINICAL HISTORY: Neuro Deficits TECHNIQUE: Axial computed tomography images of the head/brain without intravenous contrast. CTDI is 49.27 mGy and DLP is 1113.4 mGy-cm. This CT exam was performed using one or more of the following dose reduction techniques: automated exposure control, adjustment of the mA and/or kV according to patient size, and/or use of iterative reconstruction technique. COMPARISON: No relevant prior studies available. FINDINGS: Brain: Unremarkable. No hemorrhage. No significant white matter disease. No edema. 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 No ventriculomegaly. Bones/joints: Unremarkable. No acute fracture. Soft tissues: Unremarkable. Sinuses: Unremarkable as visualized. No acute sinusitis. Mastoid air cells: Unremarkable as visualized. No mastoid effusion. IMPRESSION: No acute abnormality in the brain
[2019-02-20 22:35] LABS: Basophils % (A) 0 %; Eosinophils # (A) 0.1 k/uL (0-0.7); Eosinophils % (A) 1 %; Lymphocytes # (A) 0.8 k/uL (1.0-4.8); Lymphocytes % (A) 7 %; MCH 27.3 pg (25.0-35.0); MCHC 31.7 g/dL (31.0-37.0); MCV 86.1 fL (80.0-100.0); Mean Platelet Volume 6.8; Monocytes # (A) 0.4 k/uL (0-1.0); Monocytes % (A) 4 %; Neutrophils # (A) 9.8 k/uL (1.3-7.7); Neutrophils % (A) 87 %; Platelet Count 234 k/uL (150-450); RBC 5.11 m/uL (3.80-5.40); RDW 14.5 % (11.5-15.5); WBC 11.2 k/uL (3.8-10.6)
[2019-02-20 22:42] LABS: ALT 29 U/L (9-52); AST 18 U/L (14-36); Albumin 3.7 g/dL (3.5-5.0); Alkaline Phosphatase 61 U/L (38-126); Anion Gap 6 mmol/L; Blood Urea Nitrogen 16 mg/dL (7-17); Calcium 9.1 mg/dL (8.4-10.2); Carbon Dioxide 28 mmol/L (22-30); Chloride 105 mmol/L (98-107); Glucose 108 mg/dL (74-99); Potassium 4.5 mmol/L (3.5-5.1); Sodium 139 mmol/L (137-145); Total Bilirubin 0.4 mg/dL (0.2-1.3)
--- NOTE | 2019-02-20 22:44 | ED ---
Neuro HPI - General Chief Complaint: Neuro Symptoms/Deficit Stated Complaint: Confusion Time Seen by Provider: 02/20/19 22:10 Source: EMS Mode of arrival: EMS Limitations: altered mental status (History is limited as the patient has expressive aphasia though she is able to give some yes or no answers) - History of Present Illness Is the patient presenting with stroke symptoms?: Yes -: minutes(s) Location: speech History of same: No Place: home Severity: severe Improves With: none Worsens With: none On Anticoagulants: No Context: sudden onset Treatments Prior to Arrival: oxygen - Related Data Home Medications: Home Medications Medication Instructions Recorded Confirmed D-Methorphan/PE/Acetaminophen 1 cap PO ONCE PRN 02/15/19 02/20/19 [Vicks Dayquil Liquicaps] Diltiazem HCl [Diltiazem 24Hr CD] 120 mg PO DAILY 02/15/19 02/20/19 Ipratropium-Albuterol Nebulize 3 ml INHALATION RT-QID 02/15/19 02/20/19 [Duoneb 0.5 mg-3 mg/3 ml Soln] Montelukast [Singulair] 10 mg PO HS 02/15/19 02/20/19 Tiotropium 18 Mcg/Puff [Spiriva] 1 puff INHALATION RT-DAILY 02/15/19 02/20/19 Amoxic-Pot Clav 875-125Mg 1 tab PO Q12HR 02/20/19 02/20/19 [Augmentin 875-125] Budesonide-Formot 160-4.5 Mcg 2 puff INHALATION RT-BID 02/20/19 02/20/19 [Symbicort 160-4.5 Mcg Inhaler] Previous Rx's Medication Instructions Recorded Ranitidine HCl [Zantac] 150 mg PO BID #30 tab 02/17/19 predniSONE 10 mg PO DAILY #30 tab 02/17/19 Allergies/Adverse Reactions: Allergies Allergy/AdvReac Type Severity Reaction Status Date / Time azithromycin [From Zithromax] Allergy Unknown Verified 02/20/19 22:09 naproxen [From Naprosyn] Allergy Unknown Verified 02/20/19 22:09 Sulfa (Sulfonamide Allergy Unknown Verified 02/20/19 22:09 Antibiotics) Review of Systems ROS Statement: Those systems with pertinent positive or pertinent negative responses have been documented in the HPI. ROS Other: All systems not noted in ROS Statement are negative. Limitations: ROS unobtainable due to patients medical condition (Review of systems is limited, patient mainly able to give yes or no answers) Constitutional: Denies: fever Respiratory: Denies: cough, dyspnea Cardiovascular: Denies: chest pain Gastrointestinal: Denies: abdominal pain, vomiting Musculoskeletal: Denies: back pain Neurological: Denies: headache General Exam Limitations: altered mental status General appearance: alert, anxious Head exam: Present: atraumatic, normocephalic Eye exam: Present: normal appearance, PERRL, EOMI. Absent: scleral icterus, conjunctival injection, nystagmus ENT exam: Present: normal oropharynx Neck exam: Present: normal inspection, full ROM Respiratory exam: Present: wheezes (Trace expiratory wheeze). Absent: respiratory distress, rales, rhonchi, stridor, accessory muscle use, decreased breath sounds, prolonged expiratory Cardiovascular Exam: Present: regular rate, normal rhythm, normal heart sounds. Absent: systolic murmur, diastolic murmur, rubs, gallop GI/Abdominal exam: Present: soft. Absent: distended, tenderness, guarding, rebound, rigid, mass Extremities exam: Present: normal inspection, normal capillary refill. Absent: pedal edema, calf tenderness Back exam: Present: normal inspection Neurological exam: Present: alert, CN II-XII intact. Absent: motor sensory deficit Expanded Neurological exam: Present: expressive aphasia Speech: Present: expressive aphasia Cranial nerves: EOM's Intact: Normal, Tongue Deviation: Normal, Facial Sensation: Normal Motor strength exam: RUE: 5, LUE: 5, RLE: 5, LLE: 5 Eye Response: (4) open spontaneously Motor Response: (6) obeys commands Verbal Response: (3) inappropriate words Skin exam: Present: warm, dry, intact, normal color. Absent: rash Stroke MDM - Lab Data Result diagrams: 02/20/19 22:25 02/20/19 22:25 Lab Results 02/20/19 02/20/19 02/20/19 Range/Units 22:08 22:25 22:25 WBC 11.2 H (3.8-10.6) k/uL RBC 5.11 (3.80-5.40) m/uL Hgb 14.0 (11.4-16.0) gm/dL Hct 44.0 (34.0-46.0) % MCV 86.1 (80.0-100.0) fL MCH 27.3 (25.0-35.0) pg MCHC 31.7 (31.0-37.0) g/dL RDW 14.5 (11.5-15.5) % Plt Count 234 (150-450) k/uL Neutrophils % 87 % Lymphocytes % 7 % Monocytes % 4 % Eosinophils % 1 % Basophils % 0 % Neutrophils # 9.8 H (1.3-7.7) k/uL Lymphocytes # 0.8 L (1.0-4.8) k/uL Monocytes # 0.4 (0-1.0) k/uL Eosinophils # 0.1 (0-0.7) k/uL Basophils # 0.0 (0-0.2) k/uL PT (9.0-12.0) sec INR (<1.2) APTT (22.0-30.0) sec Sodium 139 (137-145) mmol/L Potassium 4.5 (3.5-5.1) mmol/L Chloride 105 (98-107) mmol/L Carbon Dioxide 28 (22-30) mmol/L Anion Gap 6 mmol/L BUN 16 (7-17) mg/dL Creatinine 0.68 (0.52-1.04) mg/dL Est GFR (CKD-EPI)AfAm >90 (>60 ml/min/1.73 sqM) Est GFR (CKD-EPI)NonAf >90 (>60 ml/min/1.73 sqM) Glucose 108 H (74-99) mg/dL POC Glucose (mg/dL) 117 H (75-99) mg/dL POC Glu Grounds Keeper ID Gorge Kaelyn Calcium 9.1 (8.4-10.2) mg/dL Total Bilirubin 0.4 (0.2-1.3) mg/dL AST 18 (14-36) U/L ALT 29 (9-52) U/L Alkaline Phosphatase 61 (38-126) U/L Total Creatine Kinase (30-135) U/L CK-MB (CK-2) (0.0-2.4) ng/mL CK-MB (CK-2) Rel Index Troponin I (0.000-0.034) ng/mL Total Protein 6.0 L (6.3-8.2) g/dL Albumin 3.7 (3.5-5.0) g/dL 02/20/19 02/20/19 Range/Units 22:25 22:25 WBC (3.8-10.6) k/uL RBC (3.80-5.40) m/uL Hgb (11.4-16.0) gm/dL Hct (34.0-46.0) % MCV (80.0-100.0) fL MCH (25.0-35.0) pg MCHC (31.0-37.0) g/dL RDW (11.5-15.5) % Plt Count (150-450) k/uL Neutrophils % % Lymphocytes % % Monocytes % % Eosinophils % % Basophils % % Neutrophils # (1.3-7.7) k/uL Lymphocytes # (1.0-4.8) k/uL Monocytes # (0-1.0) k/uL Eosinophils # (0-0.7) k/uL Basophils # (0-0.2) k/uL PT 10.3 (9.0-12.0) sec INR 1.0 (<1.2) APTT 22.2 (22.0-30.0) sec Sodium (137-145) mmol/L Potassium (3.5-5.1) mmol/L Chloride (98-107) mmol/L Carbon Dioxide (22-30) mmol/L Anion Gap mmol/L BUN (7-17) mg/dL Creatinine (0.52-1.04) mg/dL Est GFR (CKD-EPI)AfAm (>60 ml/min/1.73 sqM) Est GFR (CKD-EPI)NonAf (>60 ml/min/1.73 sqM) Glucose (74-99) mg/dL POC Glucose (mg/dL) (75-99) mg/dL POC Glu Grounds Keeper ID Calcium (8.4-10.2) mg/dL Total Bilirubin (0.2-1.3) mg/dL AST (14-36) U/L ALT (9-52) U/L Alkaline Phosphatase (38-126) U/L Total Creatine Kinase 50 (30-135) U/L CK-MB (CK-2) 3.6 H (0.0-2.4) ng/mL CK-MB (CK-2) Rel Index 7.2 Troponin I 0.028 (0.000-0.034) ng/mL Total Protein (6.3-8.2) g/dL Albumin (3.5-5.0) g/dL - Medical Decision Making Patient is a 63-year-old woman presenting with acute onset of aphasia. The patient was seen, evaluated, sent for computed tomography scan, and I discussed case with the stroke team (Dr. Singh). Patient evaluated using stroke robot, and the consensus of opinion is to administer TPA. Please note that there is a small delay in attempting to reach family members, who were initially not present, in order to elucidate the exact onset of the symptoms, as the patient is not able to communicate that directly herself. The TPA is still administered within the treatment window. The patient will be transferred to [facility]. I discussed the case there with Dr. Moore, in the emergency department, should the patient not be able to go directly to her room. - EKG Data -: EKG Interpreted by Me EKG shows normal: sinus rhythm, axis (Normal), intervals (Normal), QRS complexes (Possible old septal infarct, Q wave in V2.), ST-T waves (Normal) Rate: normal (Rate 75 bpm) Past Medical History Past Medical History: Atrial Fibrillation, Asthma, COPD, Osteoarthritis (OA) Additional Past Medical History / Comment(s): Brain aneurysum that is clipped, home oxygen at 2L/NC ATC, arthritis in several joints, chronic low back pain which involves L leg-numbness/tingling, scoliosis, seasonal allergies. History of Any Multi-Drug Resistant Organisms: None Reported Past Surgical History: Orthopedic Surgery, Tubal Ligation Additional Past Surgical History / Comment(s): Aneurysm brain surgery-clips, angiograms, lumbar surgery x 3-last surgery was a fusion, L shoulder rotator cuff repair and excision distal clavicle. Past Anesthesia/Blood Transfusion Reactions: No Reported Reaction Past Psychological History: No Psychological Hx Reported Smoking Status: Current every day smoker - Past Family History Father Family Medical History: Coronary Artery Disease (CAD) Additional Family Medical History / Comment(s): Father had 3 vessel CABG. He at the age of 69 from heart disease. Mother Family Medical History: Myocardial Infarction (VA) Additional Family Medical History / Comment(s): Mother of a VA at the age of 42 yrs. Course Vital Signs 02/20/19 02/20/19 02/20/19 22:10 22:25 22:40 Temperature 98.7 F 98.0 F 97.9 F Pulse Rate 74 Pulse Rate [ 72 68 Furniture Maker ] Respiratory 18 16 16 Rate Blood Pressure 119/57 Blood Pressure 119/57 161/65 [Right Arm] O2 Sat by Pulse 96 98 98 Oximetry 02/20/19 02/20/19 02/20/19 22:55 23:10 23:25 Temperature 98.0 F 97.9 F 98.0 F Pulse Rate Pulse Rate [ 70 81 77 Furniture Maker ] Respiratory 16 16 16 Rate Blood Pressure Blood Pressure 130/76 140/68 123/72 [Right Arm] O2 Sat by Pulse 97 98 98 Oximetry 02/20/19 23:38 Temperature 98.0 F Pulse Rate Pulse Rate [ 78 Furniture Maker ] Respiratory 16 Rate Blood Pressure Blood Pressure 125/84 [Right Arm] O2 Sat by Pulse 97 Oximetry Critical Care Time Critical Care Time: Yes (40 minutes) Disposition Clinical Impression: Aphasia, Acute CVA (cerebrovascular accident) Disposition: OTHER INSTITUTION NOT DEFINED Condition: Critical Is patient prescribed a controlled substance at d/c from ED?: No Referrals: None,Stated [Primary Care Provider] - 1-2 days - Out of Hospital Transfer - Req. Specs Out of Hospital Transfer - Requested Specifics: Neurological ICU
[2019-02-20 22:52] VITALS: RESP 16
[2019-02-20] MEDS ORDERED: ALTEPLASE 100 MG VIAL IV STA (22:55)
[2019-02-20] MEDS ORDERED: tPA (Alteplase) PER PHARMACY 1 EACH MISC MISCELLANE PRN (22:58)
[2019-02-20] MEDS ORDERED: ALTEPLASE IV STA ×2 (23:00→23:01)
[2019-02-20 23:02] LABS: Partial Thromboplastin Time 22.2 sec (22.0-30.0); Prothrombin Time 10.3 sec (9.0-12.0)
[2019-02-20 23:08] LABS: Creatine Kinase MB 3.6 ng/mL (0.0-2.4); Troponin I 0.028 ng/mL (0.000-0.034)
--- NOTE | 2019-02-20 23:25 | CT ---
EXAM: CT Angiography Head With Intravenous Contrast CLINICAL HISTORY: : Neuro Deficits TECHNIQUE: Axial computed tomographic angiography images of the head with intravenous contrast using CT angiography protocol. CTDI is 25.3 mGy and DLP is 389.4 mGy-cm. This CT exam was performed using one or more of the following dose reduction techniques: automated exposure control, adjustment of the mA and/or kV according to patient size, and/or use of iterative reconstruction technique. 3D and MIP reconstructed images were created and reviewed. Coronal and sagittal reformatted images were created and reviewed. Axial reformatted images were created and reviewed. COMPARISON: No relevant prior studies available. FINDINGS: Right internal carotid artery: No acute findings. Intracranial segment is patent with no significant stenosis. No aneurysm. Right anterior cerebral artery: Unremarkable. No occlusion or significant stenosis. No aneurysm. Right middle cerebral artery: Unremarkable. No occlusion or significant stenosis. No aneurysm. Right posterior cerebral artery: Unremarkable. No occlusion or significant stenosis. No aneurysm. Right vertebral artery: Unremarkable as visualized. Left internal carotid artery: No acute findings. Intracranial segment is patent with no significant stenosis. No aneurysm. Left anterior cerebral artery: Unremarkable. No occlusion or significant stenosis. No aneurysm. Left middle cerebral artery: Aneurysm clip obscures portions of the second and third portion of the middle cerebral artery on the left no evidence for occlusion with normal appearance to the distal [place]. No aneurysm. Left posterior cerebral artery: Unremarkable. No occlusion or significant stenosis. No aneurysm. Left vertebral artery: Unremarkable as visualized. Basilar artery: Unremarkable. No occlusion or significant stenosis. No aneurysm. IMPRESSION: Normal head CTA. EXAM: CT Angiography Neck With Intravenous Contrast CLINICAL HISTORY: Neuro Deficits TECHNIQUE: Axial computed tomographic angiography images of the neck with intravenous contrast using CT angiography protocol. CTDI is 25.3 mGy and DLP is 329.4 mGy-cm. This CT exam was performed using one or more of the following dose reduction techniques: automated exposure control, adjustment of the mA and/or kV according to patient size, and/or use of iterative reconstruction technique. 3D and MIP reconstructed images were created and reviewed. Coronal and sagittal reformatted images were created and reviewed. Axial reformatted images were created and reviewed. COMPARISON: No relevant prior studies available. FINDINGS: VASCULATURE: Right common carotid artery: Unremarkable. No significant stenosis. No dissection or occlusion. Right internal carotid artery: Unremarkable. Extracranial segment is patent with no significant stenosis. No dissection or occlusion. Right external carotid artery: Unremarkable. No occlusion. Right vertebral artery: The right vertebral artery is dominant No significant stenosis. No dissection or occlusion. Left common carotid artery: Unremarkable. No significant stenosis. No dissection or occlusion. Left internal carotid artery: Unremarkable. Extracranial segment is patent with no significant stenosis. No dissection or occlusion. Left external carotid artery: Unremarkable. No occlusion. Left vertebral artery: The left vertebral artery is diminutive compared to the right. No significant stenosis. No dissection or occlusion. NECK: Bones/joints: No acute fracture. No dislocation. Soft tissues: Unremarkable as visualized. No mass. CAROTID STENOSIS REFERENCE USING NASCET CRITERIA: % ICA stenosis = (1 - narrowest ICA diameter/diameter of distal cervical ICA) x 100. Mild - <50% stenosis. Moderate - 50-69% stenosis. Severe - 70-94% stenosis. Near occlusion - 95-99% stenosis. Occluded - 100% stenosis. IMPRESSION: No significant stenosis
[2019-02-20 23:27] VITALS: TEMP 98
--- NOTE | 2019-02-20 23:32 | XR ---
EXAM: XR Chest, 1 View CLINICAL HISTORY: altered mental status TECHNIQUE: Frontal view of the chest. COMPARISON: No relevant prior studies available. FINDINGS: Lungs: Possible early infiltrate in the left lower lobe which appears new compared to prior study Pleural space: Unremarkable. No pneumothorax. Heart: Unremarkable. No cardiomegaly. Mediastinum: Unremarkable. Bones/joints: Unremarkable. IMPRESSION: Early infiltrate left lower lobe new from prior study
[2019-02-20 23:43] VITALS: BP 125/84; PULSE 78
== END 2019-02-20 23:42 | disposition other institution (70) ==
LOC: EC 22:04
DX: I63.9 Cerebral infarction, unspecified (principal); I48.91 Unspecified atrial fibrillation; J44.9 Chronic obstructive pulmonary disease, unspecified; M19.90 Unspecified osteoarthritis, unspecified site; F17.200 Nicotine dependence, unspecified, uncomplicated; Z79.51 Long term (current) use of inhaled steroids; Z79.899 Other long term (current) drug therapy; Z88.2 Allergy status to sulfonamides; Z88.1 Allergy status to other antibiotic agents; Z88.6 Allergy status to analgesic agent; Z82.49 Family history of ischemic heart disease and other diseases of the circulatory system
CPT/HCPCS: 99285 ×2; 37195 ×2; 36415; 93005; 80053; 82550; 82553; 84484; 85025; 85610; 85730; 71045; 70496; 70450; 70498; J2997; Q9967

== ENCOUNTER → 2019-03-28 | Outpatient (CLI) | payer OTHER ==
[2019-03-28 13:54] LABS: Basophils # (A) 0.1 k/uL (0-0.2); Basophils % (A) 1 %; Eosinophils # (A) 0.6 k/uL (0-0.7); Eosinophils % (A) 7 %; HCT 41.7 % (34.0-46.0); HGB 13.1 gm/dL (11.4-16.0); Lymphocytes # (A) 2.2 k/uL (1.0-4.8); Lymphocytes % (A) 24 %; MCH 27.5 pg (25.0-35.0); MCHC 31.5 g/dL (31.0-37.0); MCV 87.4 fL (80.0-100.0); Monocytes # (A) 0.4 k/uL (0-1.0); Monocytes % (A) 4 %; Neutrophils # (A) 5.8 k/uL (1.3-7.7); Neutrophils % (A) 63 %; Platelet Count 249 k/uL (150-450); RBC 4.78 m/uL (3.80-5.40); RDW 15.5 % (11.5-15.5); WBC 9.2 k/uL (3.8-10.6)
[2019-03-28 14:27] LABS: Anion Gap 8 mmol/L; Blood Urea Nitrogen 16 mg/dL (7-17); Carbon Dioxide 27 mmol/L (22-30); Chloride 105 mmol/L (98-107); Potassium 4.3 mmol/L (3.5-5.1); Sodium 140 mmol/L (137-145)
== END ==
LOC: LABPAT 13:05
PROVIDERS: ATTEND Surgery
DX: Z01.812 Encounter for preprocedural laboratory examination (principal); I74.5 Embolism and thrombosis of iliac artery
CPT/HCPCS: 36415; 80051; 82565; 84520; 85025

== ENCOUNTER 2019-03-31 11:38 | Day surgery (SDC) | payer OTHER ==
[2019-03-28 14:21] VITALS: BMI 25.8
[~2019-03-31 11:38] MED LIST: ALPRAZolam 0.25 MG TAB PO PRN; SODIUM CHLORIDE 0.9% 1,000 ML in EMPTY BAG 1 BAG IV ONE
[2019-03-31] MEDS ORDERED: ALPRAZolam 0.5 MG TAB ONE (11:55)
[2019-03-31] MEDS ORDERED: ASPIRIN 325 MG TAB PO SCH (12:00)
[2019-03-31 12:09] VITALS: TEMP 97.7
[2019-03-31] MEDS ORDERED: LIDOCAINE 1% INJ 10MG/ML (20 ML MDV) SQ ONE (13:12)
[2019-03-31] MEDS ORDERED: MORPHINE SULFATE 4 MG/ML SYRINGE IV ONE (13:14)
[2019-03-31] MEDS ORDERED: MIDAZOLAM (PF) 2 MG/2 ML VIAL IV ONE (13:15)
[2019-03-31] MEDS ORDERED: IOPAMIDOL-250 100ML BTL INTRAARTER ONE (14:17)
--- NOTE | 2019-03-31 14:36 | P.OP ---
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 Procedure(s) Performed: Cannulation bilateral femoral artery with ultrasound guidance on the right. Catheter placement aorta bilaterally. Balloon dilation right common iliac artery. Covered stent placement right common iliac artery Implants: 8 mm x 29 mm the VBX covered stent system Anesthesia: local (With 2 mg of Versed and 2 mg of morphine sulfate for moderate conscious sedation purposes) Surgeon: Tien Stringer Estimated Blood Loss (ml): 30 IV fluids (ml): 75 Urine output (ml): 0 Pathology: none sent Condition: stable Disposition: other (ESU) Indications for Procedure: Patient is a 63-year-old female presented with a chief complaint is lifestyle limiting right lower externally claudication. Angiogram performed during intervention for a neurologic procedure a demonstrated a totally occluded right iliac artery and the patient was referred for possible percutaneous intervention Operative Findings: Totally occluded right common iliac artery Description of Procedure: Patient was brought the catheterization laboratory and placed in the supine position. Both groins were sterilely prepped and draped in usual manner. The patient received 2 mg of Versed and 2 mg of morphine sulfate for moderate conscious sedation. On the left 1% Xylocaine was lysed local anesthesia tissues overlying the femoral artery. Through this anesthetized area a multipurpose needle was utilized to cannulate the artery. Once cannulated soft-tip guidewire was advanced into the abdominal aorta. The needle was withdrawn and a 5-Russian sheath was placed. 5-Russian pigtail catheter and guidewire combinations were advanced into the abdominal aorta. Abdominal aortogram was performed. The occlusion of the right common iliac artery was confirmed. Multiple attempts with multiple guidewire and catheter combination were utilized to attempt to cannulate the right iliac artery. None were successful. It was decided to attempt at crossing the lesion via the right common femoral artery. 1% Xylocaine was utilized for local anesthesia of the tissues overlying the right femoral artery. Utilizing ultrasound the common femoral artery was identified. Through this anesthetized area and with the aid of ultrasound a multipurpose needle was utilized to cannulate the artery. Once cannulated Softip guidewire was advanced into the artery. The needle was withdrawn and a 5-Russian sheath was placed. Utilizing a angled glide catheter and guidewire the lesion was crossed and the guidewire and catheter combination were advanced into the aorta. Angiography confirmed intra-arterial position of the catheter. Planing angiogram via the pigtail catheter was performed. The artery measured 7 mm in diameter. As such a 7 mm x 60 mm balloon angioplasty catheter was selected and utilized to balloon dilate the area of previous occlusion. Completion angiogram demonstrated surgical proximal stenosis and this area of the artery was a balloon dilated. Completion angiogram demonstrated a small dissection proximally. This dissection did not appear to be hemodynamically significant however due to the generally calcified nature of the vessel it was felt appropriate to place a stent across this to help prevent any future issues. As such a 8 mm x 29 mm VBX covered stent system was deployed in the area of stenosis/dissection. Completion angiogram demonstrated control of the dissection with no flow- limiting lesion. With the above findings noted all guidewires and catheters were withdrawn. Each puncture site was closed with a Angio-Seal device. Patient tolerated procedure well and was taken to the ED you in satisfactory and stable condition. Total fluoroscopy time 14.8 minutes. Total contrast volume 120 ML's of Isovue 370. Total conscious sedation time 62 minutes.
[2019-03-31] MEDS ORDERED: HYDROcodone/APAP 5-325MG 1 EACH TAB PO PRN (14:42)
[2019-03-31] MEDS ORDERED: CLOPIDOGREL 75 MG TAB PO SCH (14:45)
[2019-03-31] MEDS ORDERED: SODIUM CHLORIDE 0.9% 1,000 ML IV SCH (14:45)
[2019-03-31 15:27] VITALS: PULSE 67
[2019-03-31 15:50] VITALS: BP 141/66; RESP 16
[2019-03-31] MEDS ORDERED: IPRATROPIUM-ALBUTEROL 3 ML NEB INHALATION SCH (16:00)
--- NOTE | 2019-03-31 16:00 | IR ---
EXAMINATION TYPE: IR stent intravas non coronary DATE OF EXAM: 03/31/2019 COMPARISON: NONE HISTORY: Fluoroscopy time. Fluoroscopy was provided to the referring clinician.
[2019-03-31] MEDS ORDERED: ATORVASTATIN 20 MG TAB PO SCH (21:00)
[2019-03-31] MEDS ORDERED: MONTELUKAST 10 MG TAB PO SCH (21:00)
[2019-04-01] MEDS ORDERED: SYMBICORT 160-4.5 MCG INHALER INHALATION SCH (08:00)
[2019-04-01] MEDS ORDERED: ASPIRIN 325 MG TAB PO SCH (09:00)
[2019-04-01] MEDS ORDERED: NON-FORMULARY DRUG (Umeclidinium Bromide [Incruse Ellipta] 1 PUFF) INHALATION SCH (09:00)
[2019-04-01] MEDS ORDERED: DILTIAZEM CD 180 MG CAP.ER.24H PO SCH (09:00)
[2019-04-01] MEDS ORDERED: ATORVASTATIN 40 MG TAB PO SCH (09:00)
== END 2019-03-31 17:30 | disposition home or self-care (01) ==
LOC: CATHCVL 11:38
PROVIDERS: ATTEND Surgery
DX: I70.211 Atherosclerosis of native arteries of extremities with intermittent claudication, right leg (principal); I48.91 Unspecified atrial fibrillation; J44.9 Chronic obstructive pulmonary disease, unspecified; Z99.81 Dependence on supplemental oxygen; M19.90 Unspecified osteoarthritis, unspecified site; F17.200 Nicotine dependence, unspecified, uncomplicated; Z98.51 Tubal ligation status; R32 Unspecified urinary incontinence; Z79.02 Long term (current) use of antithrombotics/antiplatelets; Z79.51 Long term (current) use of inhaled steroids; Z79.899 Other long term (current) drug therapy; Z88.6 Allergy status to analgesic agent; Z88.1 Allergy status to other antibiotic agents; Z88.2 Allergy status to sulfonamides
CPT/HCPCS: 37221; 75625; C1894 ×3; C1760; C1769 ×5; C1725; C1874; J2270; J2001; Q9966; J2250

== ENCOUNTER 2019-08-13 00:07 | Inpatient (IN) | payer OTHER ==
--- NOTE | 2019-08-13 00:37 | ED ---
SOB HPI - General Chief Complaint: Shortness of Breath Stated Complaint: afib Time Seen by Provider: 08/13/19 00:36 Source: EMS Mode of arrival: EMS Limitations: no limitations - History of Present Illness Initial Comments: This patient is a 64-year-old woman with history of COPD and also of paroxysmal atrial fibrillation. Patient states that she has felt like her COPD has been flaring up for approximately 10 days now. She states that the symptoms seem to be worsening tonight so she felt she should be evaluated. She states she has had wheezing, a nonproductive cough, and some mild dyspnea. She worsened tonight, in that she was not able to walk down the [address] from her bathroom in her home tonight. She felt like her heart was racing and she was becoming lightheaded, feeling she may pass out. She states that she felt that her heart rate was up to 170. MD Complaint: shortness of breath, cough Onset/Timin -: days(s) Severity: moderate Severity scale (1-10): 0 Consistency: constant Improves With: nothing Worsens With: exertion Known History Of: COPD, other (Atrial fibrillation) Associated Symptoms: palpitations, other (Lightheaded) Treatments Prior to Arrival: bronchodilator - Related Data Home Oxygen Therapy: Yes Home Oxygen Amount: 2 Liters Home Medications Medication Instructions Recorded Confirmed Montelukast [Singulair] 10 mg PO HS 02/15/19 03/31/19 Aspirin 325 mg PO DAILY 03/28/19 03/31/19 Atorvastatin [Lipitor] 40 mg PO DAILY 03/28/19 03/31/19 Diltiazem HCl [Diltiazem ER] 180 mg PO QAM 03/28/19 03/31/19 Fluticasone/Salmeterol 2 puff INHALATION BID 03/28/19 03/31/19 [Fluticasone-Salmeterol 113-14] Ipratropium-Albuterol Nebulize 1 applicate INHALATION QID 03/28/19 03/28/19 [Duoneb 0.5 mg-3 mg/3 ml Soln] Umeclidinium [place] [Incruse 1 puff INHALATION DAILY 03/28/19 03/31/19 Ellipta] Allergies Allergy/AdvReac Type Severity Reaction Status Date / Time azithromycin [From Zithromax] Allergy Unknown Verified 03/28/19 14:05 naproxen [From Naprosyn] Allergy diff Verified 03/28/19 14:05 breath, swelling Sulfa (Sulfonamide Allergy diff Verified 03/28/19 14:05 Antibiotics) breath, swelling Review of Systems ROS Statement: Those systems with pertinent positive or pertinent negative responses have been documented in the HPI. ROS Other: All systems not noted in ROS Statement are negative. Constitutional: Denies: fever, chills Respiratory: Reports: cough, dyspnea, wheezes. Denies: hemoptysis Cardiovascular: Reports: palpitations, dyspnea on exertion, syncope (Near syncope). 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 History of Any Multi-Drug Resistant Organisms: None Reported Past Surgical History: Orthopedic Surgery, Tubal Ligation Additional Past Surgical History / Comment(s): Brain aneurysum that is clipped, Past Anesthesia/Blood Transfusion Reactions: No Reported Reaction Past Psychological History: No Psychological Hx Reported Smoking Status: Former smoker Past Alcohol Use History: None Reported Past Drug Use History: None Reported - Past Family History Father Family Medical History: Coronary Artery Disease (CAD) Additional Family Medical History / Comment(s): Father had 3 vessel CABG. He at the age of 69 from heart disease. Mother Family Medical History: Myocardial Infarction ([place]) Additional Family Medical History / Comment(s): Mother of a [place] at the age of 42 yrs. General Exam Limitations: no limitations General appearance: alert, in no apparent distress Head exam: Present: atraumatic, normocephalic Eye exam: Present: normal appearance. Absent: scleral icterus, conjunctival injection ENT exam: Present: normal oropharynx Neck exam: Present: normal inspection Respiratory exam: Present: respiratory distress, wheezes, decreased breath sounds. Absent: rales, rhonchi, stridor, chest wall tenderness, accessory muscle use Cardiovascular Exam: Present: normal rhythm, tachycardia, normal heart sounds. Absent: systolic murmur, diastolic murmur, rubs, gallop GI/Abdominal exam: Present: soft. Absent: distended, tenderness, guarding, rebound, rigid, mass Extremities exam: Present: normal inspection, normal capillary refill. Absent: pedal edema, calf tenderness Back exam: Present: normal inspection. Absent: CVA tenderness (R), CVA tenderness (L) Neurological exam: Present: alert Skin exam: Present: warm, dry, intact, normal color. Absent: rash Course Vital Signs 08/13/19 08/13/19 00:07 02:39 Temperature 98.4 F 98.6 F Pulse Rate 110 H 96 Respiratory 22 18 Rate Blood Pressure 128/116 134/85 O2 Sat by Pulse 94 L 94 L Oximetry Medical Decision Making - Lab Data Result diagrams: 08/13/19 00:29 08/13/19 00:29 Lab Results 08/13/19 08/13/19 08/13/19 Range/Units 00:29 00:29 00:29 WBC 9.8 (3.8-10.6) k/uL RBC 5.05 (3.80-5.40) m/uL Hgb 14.5 (11.4-16.0) gm/dL Hct 43.4 (34.0-46.0) % MCV 86.0 (80.0-100.0) fL MCH 28.7 (25.0-35.0) pg MCHC 33.4 (31.0-37.0) g/dL RDW 13.0 (11.5-15.5) % Plt Count 267 (150-450) k/uL Neutrophils % 58 % Lymphocytes % 21 % Monocytes % 5 % Eosinophils % 13 % Basophils % 1 % Neutrophils # 5.7 (1.3-7.7) k/uL Lymphocytes # 2.0 (1.0-4.8) k/uL Monocytes # 0.5 (0-1.0) k/uL Eosinophils # 1.2 H (0-0.7) k/uL Basophils # 0.1 (0-0.2) k/uL PT 10.7 (9.0-12.0) sec INR 1.0 (<1.2) APTT 27.7 (22.0-30.0) sec D-Dimer 0.67 H (<0.60) mg/L FEU Sodium 139 (137-145) mmol/L Potassium 3.9 (3.5-5.1) mmol/L Chloride 103 (98-107) mmol/L Carbon Dioxide 26 (22-30) mmol/L Anion Gap 10 mmol/L BUN 18 H (7-17) mg/dL Creatinine 0.70 (0.52-1.04) mg/dL Est GFR (CKD-EPI)AfAm >90 (>60 ml/min/1.73 sqM) Est GFR (CKD-EPI)NonAf >90 (>60 ml/min/1.73 sqM) Glucose 131 H (74-99) mg/dL Calcium 9.9 (8.4-10.2) mg/dL Total Bilirubin 0.5 (0.2-1.3) mg/dL AST 21 (14-36) U/L ALT 14 (9-52) U/L Alkaline Phosphatase 83 (38-126) U/L Troponin I (0.000-0.034) ng/mL NT-Pro-B Natriuret Pep pg/mL Total Protein 6.9 (6.3-8.2) g/dL Albumin 4.2 (3.5-5.0) g/dL 08/13/19 08/13/19 Range/Units 00:29 00:29 WBC (3.8-10.6) k/uL RBC (3.80-5.40) m/uL Hgb (11.4-16.0) gm/dL Hct (34.0-46.0) % MCV (80.0-100.0) fL MCH (25.0-35.0) pg MCHC (31.0-37.0) g/dL RDW (11.5-15.5) % Plt Count (150-450) k/uL Neutrophils % % Lymphocytes % % Monocytes % % Eosinophils % % Basophils % % Neutrophils # (1.3-7.7) k/uL Lymphocytes # (1.0-4.8) k/uL Monocytes # (0-1.0) k/uL Eosinophils # (0-0.7) k/uL Basophils # (0-0.2) k/uL PT (9.0-12.0) sec INR (<1.2) APTT (22.0-30.0) sec D-Dimer (<0.60) mg/L FEU Sodium (137-145) mmol/L Potassium (3.5-5.1) mmol/L Chloride (98-107) mmol/L Carbon Dioxide (22-30) mmol/L Anion Gap mmol/L BUN (7-17) mg/dL Creatinine (0.52-1.04) mg/dL Est GFR (CKD-EPI)AfAm (>60 ml/min/1.73 sqM) Est GFR (CKD-EPI)NonAf (>60 ml/min/1.73 sqM) Glucose (74-99) mg/dL Calcium (8.4-10.2) mg/dL Total Bilirubin (0.2-1.3) mg/dL AST (14-36) U/L ALT (9-52) U/L Alkaline Phosphatase (38-126) U/L Troponin I <0.012 (0.000-0.034) ng/mL NT-Pro-B Natriuret Pep 86 pg/mL Total Protein (6.3-8.2) g/dL Albumin (3.5-5.0) g/dL - EKG Data EKG shows normal: sinus rhythm, axis (Normal), intervals (Normal), QRS complexes (Normal) Rate: tachycardia (Rate 117 bpm) Interpretation: nonspecific ST-T wave changes Disposition Clinical Impression: COPD (chronic obstructive pulmonary disease) Disposition: ADMITTED IP TO THIS HOSP Condition: Poor Referrals: Frankie Pichardo MD [Primary Care Provider] - 1-2 days
[2019-08-13 00:57] LABS: Basophils # (A) 0.1 k/uL (0-0.2); Basophils % (A) 1 %; Eosinophils # (A) 1.2 k/uL (0-0.7); Eosinophils % (A) 13 %; HCT 43.4 % (34.0-46.0); HGB 14.5 gm/dL (11.4-16.0); Lymphocytes % (A) 21 %; MCH 28.7 pg (25.0-35.0); MCHC 33.4 g/dL (31.0-37.0); Mean Platelet Volume 6.3; Monocytes # (A) 0.5 k/uL (0-1.0); Monocytes % (A) 5 %; Neutrophils # (A) 5.7 k/uL (1.3-7.7); Neutrophils % (A) 58 %; Platelet Count 267 k/uL (150-450); RBC 5.05 m/uL (3.80-5.40); WBC 9.8 k/uL (3.8-10.6)
--- NOTE | 2019-08-13 00:57 | XR ---
EXAMINATION TYPE: XR chest 1V DATE OF EXAM: 08/13/2019 COMPARISON: 02/20/2019 HISTORY: Difficulty breathing TECHNIQUE: Single frontal view of the chest is obtained. FINDINGS: Heart and mediastinum are normal. Lungs are clear. Diaphragm is normal. There are chest le ads. Bony thorax appears intact. IMPRESSION: No active cardiopulmonary disease. Normal heart. There is clearing of the small infiltra te left lung base compared to old exam.
[2019-08-13 01:17] LABS: Partial Thromboplastin Time 27.7 sec (22.0-30.0); Prothrombin Time 10.7 sec (9.0-12.0)
[2019-08-13 01:22] LABS: D-Dimer 0.67 mg/L FEU (<0.60)
[2019-08-13 01:25] LABS: ALT 14 U/L (9-52); AST 21 U/L (14-36); African American GFR (CKD) >90 (>60 ml/min/1.73 sqM); Albumin 4.2 g/dL (3.5-5.0); Alkaline Phosphatase 83 U/L (38-126); Anion Gap 10 mmol/L; Blood Urea Nitrogen 18 mg/dL (7-17); Calcium 9.9 mg/dL (8.4-10.2); Carbon Dioxide 26 mmol/L (22-30); Chloride 103 mmol/L (98-107); Glucose 131 mg/dL (74-99); Potassium 3.9 mmol/L (3.5-5.1); Sodium 139 mmol/L (137-145); Total Bilirubin 0.5 mg/dL (0.2-1.3); Total Protein 6.9 g/dL (6.3-8.2)
[2019-08-13] MEDS ORDERED: ALBUTEROL NEBULIZED 2.5 MG/3 ML INHALATION PRN (04:10)
[2019-08-13] MEDS ORDERED: methylPREDNISolone SOD SUCCI 125 MG/2 ML VIAL IV STA (04:10)
[2019-08-13] MEDS ORDERED: ENOXAPARIN 80 MG/0.8 ML SYRINGE SQ ONE (05:00)
[2019-08-13] MEDS: methylPREDNISolone SOD SUCCI 125 MG/2 ML VIAL IV SCH ×4 (05:48→23:26)
[2019-08-13 07:05] LABS: Glucose,Whole Blood 173 mg/dL (75-99)
[2019-08-13] MEDS: IPRATROPIUM-ALBUTEROL 3 ML NEB INHALATION SCH ×4 (07:21→20:16)
[2019-08-13] MEDS: SYMBICORT 160-4.5 MCG INHALER INHALATION SCH ×2 (07:21→20:16)
[2019-08-13] MEDS ORDERED: HEPARIN SODIUM,PORCINE 5,000 UNIT/ML 1 ML VIAL SQ SCH (08:00)
[2019-08-13] MEDS ORDERED: IPRATROPIUM 0.5 MG/2.5 ML NEBU INHALATION SCH (08:00)
[2019-08-13] MEDS: INSULIN ASPART (NovoLOG) 100 UNIT/ML VIAL SQ SCH ×4 (08:18→20:31)
[2019-08-13] MEDS: DILTIAZEM CD 180 MG CAP.ER.24H PO SCH (08:18)
[2019-08-13] MEDS: ATORVASTATIN 40 MG TAB PO SCH (08:18)
[2019-08-13] MEDS: ASPIRIN 325 MG TAB PO SCH (08:18)
[2019-08-13 11:48] LABS: Glucose,Whole Blood 199 mg/dL (75-99)
--- NOTE | 2019-08-13 13:39 | P.CNPUL ---
History of Present Illness Consult date: 08/13/19 Reason for consult: dyspnea, COPD History of present illness: A 62-year-old female patient, an ex-smoker with known history of COPD was oxygen dependent 2 L per minute nasal cannula maintained on a combination of Advair and Incruse on outpatient basis. The patient has been followed up in our office. The patient comes in yesterday to the intensive because of worsening shortness of breath of a week's duration. She had increased dyspnea cough chest tightness and wheezing. At the same time, she was feeling that her heart was racing as the patient is known to have underlying chronic atrial fibrillation. For all this reasons she came into the hospital. No angina. No palpitation. No swelling lower extremities. no altered mentation. White cell count was at 9.8. D-dimer was at 0.67. BUN 18 creatinine of 0.7. LFTs are within normal. First set of troponin is been negative. Chest exit showed no acute cardio pulmonary process. Review of Systems Eyes: denies as per HPI, denies blurred vision, denies bulging eye, denies decreased vision, denies diplopia, denies discharge, denies dry eye, denies irritation, denies itching, denies pain, denies photophobia, denies loss of peripheral vision, denies loss of vision, denies tunnel vision/blind spots Ears: deny: decreased hearing, ear discharge, earache, tinnitus Ears, nose, mouth and throat: Denies headache, Denies sore throat Breasts: absent: as per HPI, change in shape, gynecomastia, masses, nipple discharge, pain, skin changes, swelling Cardiovascular: Reports decreased exercise tolerance, Reports dyspnea on exertion, Reports palpitations, Reports shortness of breath Respiratory: Reports cough, Reports cough with sputum, Reports dyspnea Gastrointestinal: Reports as per HPI Genitourinary: Reports as per HPI Menstruation: Reports as per HPI Musculoskeletal: Reports as per HPI Musculoskeletal: absent: ankle pain, ankle stiffness, ankle swelling Integumentary: Reports as per HPI Neurological: Reports as per HPI Psychiatric: Reports as per HPI Endocrine: Reports as per HPI Hematologic/Lymphatic: Reports as per HPI Allergic/Immunologic: Reports as per HPI Past Medical History Past Medical History: Atrial Fibrillation, COPD, CVA/TIA, Osteoarthritis (OA) Additional Past Medical History / Comment(s): Brain aneurysum that is clipped, home oxygen at 2L/[place] ATC, arthritis in several joints, chronic low back pain which involves L leg-numbness/tingling, scoliosis, seasonal allergies. History of Any Multi-Drug Resistant Organisms: None Reported Past Surgical History: Orthopedic Surgery, Tubal Ligation Additional Past Surgical History / Comment(s): Brain aneurysum that is clipped, left shoulder rotator cuff repair, spine lumbar disc 3x Past Anesthesia/Blood Transfusion Reactions: No Reported Reaction Past Psychological History: No Psychological Hx Reported Additional Psychological History / Comment(s): Pt resides with her son. She uses no assistive device. She drives. She has home oxygen at 2L/NC ATC and a nebulizer. Smoking Status: Former smoker Past Alcohol Use History: None Reported Additional Past Alcohol Use History / Comment(s): Pt started smoking in 1975 and has cut down to 2 cigarettes a day. Past Drug Use History: None Reported - Past Family History Father Family Medical History: Coronary Artery Disease (CAD), Diabetes Mellitus Additional Family Medical History / Comment(s): Father had 3 vessel CABG. He at the age of 69 from heart disease. Mother Family Medical History: Myocardial Infarction ([place]) Additional Family Medical History / Comment(s): Mother of a [place] at the age of 42 yrs. Medications and Allergies Home Medications Medication Instructions Recorded Confirmed Type Montelukast [Singulair] 10 mg PO HS 02/15/19 08/13/19 History Diltiazem HCl [Diltiazem ER] 180 mg PO QAM 03/28/19 08/13/19 History Fluticasone/Salmeterol 2 puff INHALATION RT-BID 03/28/19 08/13/19 History [Fluticasone-Salmeterol 113-14] Ipratropium-Albuterol Nebulize 3 ml INHALATION RT-QID 03/28/19 08/13/19 History [Duoneb 0.5 mg-3 mg/3 ml Soln] Umeclidinium [place] [Incruse 1 puff INHALATION RT-DAILY 03/28/19 08/13/19 History Ellipta] Apixaban [Eliquis] 5 mg PO BID 08/13/19 08/13/19 History Magnesium 200 mg PO DAILY PRN 08/13/19 08/13/19 History Allergies Allergy/AdvReac Type Severity Reaction Status Date / Time naproxen [From Naprosyn] Allergy Rash/Hives Verified 08/13/19 08:42 Sulfa (Sulfonamide Allergy diff Verified 08/13/19 08:42 Antibiotics) breath, swelling azithromycin [From Zithromax] AdvReac Unknown Verified 08/13/19 08:42 Physical Exam Vitals: Vital Signs Temp Pulse Pulse Resp BP BP Pulse Ox 08/13/19 11:04 100 08/13/19 10:54 96 08/13/19 07:38 104 H 08/13/19 07:24 100 08/13/19 07:00 97.9 F 102 H 20 153/82 94 L 08/13/19 05:09 14 08/13/19 04:45 98.0 F 102 H 143/71 94 L 08/13/19 04:23 98 F 93 18 134/85 97 08/13/19 02:39 98.6 F 96 18 134/85 94 L 08/13/19 00:07 98.4 F 110 H 22 128/116 94 L Intake and Output 08/12/19 08/13/19 08/13/19 22:59 06:59 14:59 Intake Total 10 200 Balance 10 200 Intake: Oral 10 200 Other: # Voids 1 Weight 72.575 kg GENERAL EXAM: Very pleasant 63-year-old female patient. Alert, active, comfortable in no apparent distress. On 2 L nasal cannula. HEAD: Normocephalic. EYES: Normal reaction of pupils, equal size. NOSE: Clear with pink turbinates. THROAT: No erythema or exudates. NECK: No masses, no JVD. CHEST: No chest wall deformity. LUNGS: Equal air entry with bilateral wheeze, diminished throughout. CVS: S1 and S2 normal with no audible murmur, regular rhythm. ABDOMEN: No hepatosplenomegaly, normal bowel sounds, no guarding or rigidity. SPINE: No scoliosis or deformity SKIN: No rashes CENTRAL NERVOUS SYSTEM: No focal deficits, tone is normal in all 4 extremities. EXTREMITIES: There is no peripheral edema. No clubbing, no cyanosis. Peripheral pulses are intact. Results - Laboratory Findings CBC and BMP: 08/13/19 00:29 08/13/19 00:29 PT/INR, D-dimer PT 10.7 sec (9.0-12.0) 08/13/19 00:29 INR 1.0 (<1.2) 08/13/19 00:29 D-Dimer 0.67 mg/L FEU (<0.60) H 08/13/19 00:29 Abnormal lab findings: Abnormal Labs 08/13/19 08/13/19 08/13/19 00:29 00:29 00:29 Eosinophils # 1.2 H D-Dimer 0.67 H BUN 18 H Glucose 131 H POC Glucose (mg/dL) 08/13/19 08/13/19 06:56 11:33 Eosinophils # D-Dimer BUN Glucose POC Glucose (mg/dL) 173 H 199 H - Diagnostic Findings Chest x-ray: image reviewed Assessment and Plan Plan: #1 Acute exacerbation of chronic obstructive pulmonary disease, complicated by purulent tracheobronchitis. #2 Chronic and ongoing tobacco dependence. #3 Hypertension. #4 scoliosis #5 seasonal ALLERGIES #6 osteoarthritis 7 history of [employer] aneurysm that has been tapped #8 history of atrial fibrillation maintained on long-term and to coagulation with Eliquis. Her rate is well-controlled for the time being. Continue Cardizem. Plan Agree on the current management. Continue bronchodilators. Continue steroids. Chest x-ray was reviewed. The patient is not smoking for now. Outpatient medications including combination of Advair and Incruse is very appropriate. Continue Cardizem regarding the atrial fibrillation the patient is also on long- term and to coagulation with Eliquis.
--- NOTE | 2019-08-13 14:43 | P.HPIM ---
History of Present Illness H&P Date: 08/13/19 A 62-year-old female patient, an ex-smoker with known history of COPD was oxygen dependent 2 L per minute nasal cannula maintained on a combination of Advair and Incruse on outpatient basis. The patient has been followed up in our office. The patient comes in yesterday to the intensive because of worsening shortness of breath of a week's duration. She had increased dyspnea cough chest tightness and wheezing. At the same time, she was feeling that her heart was racing as the patient is known to have underlying chronic atrial fibrillation. For all this reasons she came into the hospital. No angina. No palpitation. No swelling lower extremities. no altered mentation. White cell count was at 9.8. D-dimer was at 0.67. BUN 18 creatinine of 0.7. LFTs are within normal. First set of troponin is been negative. Review of Systems Eyes: denies as per HPI, denies blurred vision, denies bulging eye, denies decreased vision, denies diplopia, denies discharge, denies dry eye, denies irritation, denies itching, denies pain, denies photophobia, denies loss of peripheral vision, denies loss of vision, denies tunnel vision/blind spots Ears: deny: decreased hearing, ear discharge, earache, tinnitus Ears, nose, mouth and throat: Denies headache, Denies sore throat Breasts: absent: as per HPI, change in shape, gynecomastia, masses, nipple discharge, pain, skin changes, swelling Cardiovascular: Reports decreased exercise tolerance, Reports dyspnea on exertion, Reports palpitations, Reports shortness of breath Respiratory: Reports cough, Reports cough with sputum, Reports dyspnea Gastrointestinal: Reports as per HPI Genitourinary: Reports as per HPI Menstruation: Reports as per HPI Musculoskeletal: Reports as per HPI Musculoskeletal: absent: ankle pain, ankle stiffness, ankle swelling Integumentary: Reports as per HPI Neurological: Reports as per HPI Psychiatric: Reports as per HPI Endocrine: Reports as per HPI Hematologic/Lymphatic: Reports as per HPI Past Medical History Past Medical History: Atrial Fibrillation, Asthma, COPD, CVA/TIA, Osteoarthritis (OA) Additional Past Medical History / Comment(s): Brain aneurysum that is clipped, home oxygen at 2L/[place] ATC, arthritis in several joints, chronic low back pain which involves L leg-numbness/tingling, scoliosis, seasonal allergies. History of Any Multi-Drug Resistant Organisms: None Reported Past Surgical History: Orthopedic Surgery, Tubal Ligation Additional Past Surgical History / Comment(s): Brain aneurysum that is clipped, left shoulder rotator cuff repair, spine lumbar disc 3x Past Anesthesia/Blood Transfusion Reactions: No Reported Reaction Past Psychological History: No Psychological Hx Reported Additional Psychological History / Comment(s): Pt resides with her son. She u ses no assistive device. She drives. She has home oxygen at 2L/[place] ATC and a nebulizer. Smoking Status: Former smoker Past Alcohol Use History: None Reported Additional Past Alcohol Use History / Comment(s): Pt started smoking in 1975 and has cut down to 2 cigarettes a day. Past Drug Use History: None Reported - Past Family History Father Family Medical History: Coronary Artery Disease (CAD), Diabetes Mellitus Additional Family Medical History / Comment(s): Father had 3 vessel CABG. He at the age of 69 from heart disease. Mother Family Medical History: Myocardial Infarction ([place]) Additional Family Medical History / Comment(s): Mother of a [place] at the age of 42 yrs. Medications and Allergies Home Medications Medication Instructions Recorded Confirmed Type Montelukast [Singulair] 10 mg PO HS 02/15/19 08/13/19 History Diltiazem HCl [Diltiazem ER] 180 mg PO QAM 03/28/19 08/13/19 History Fluticasone/Salmeterol 2 puff INHALATION RT-BID 03/28/19 08/13/19 History [Fluticasone-Salmeterol 113-14] Ipratropium-Albuterol Nebulize 3 ml INHALATION RT-QID 03/28/19 08/13/19 History [Duoneb 0.5 mg-3 mg/3 ml Soln] Umeclidinium [place] [Incruse 1 puff INHALATION RT-DAILY 03/28/19 08/13/19 History Ellipta] Apixaban [Eliquis] 5 mg PO BID 08/13/19 08/13/19 History Magnesium 200 mg PO DAILY PRN 08/13/19 08/13/19 History Allergies Allergy/AdvReac Type Severity Reaction Status Date / Time naproxen [From Naprosyn] Allergy Rash/Hives Verified 08/13/19 08:42 Sulfa (Sulfonamide Allergy diff Verified 08/13/19 08:42 Antibiotics) breath, swelling azithromycin [From Zithromax] AdvReac Unknown Verified 08/13/19 08:42 Physical Exam Vitals: Vital Signs Temp Pulse Pulse Resp BP BP Pulse Ox 08/13/19 11:04 100 08/13/19 10:54 96 08/13/19 07:38 104 H 08/13/19 07:24 100 08/13/19 07:00 97.9 F 102 H 20 153/82 94 L 08/13/19 05:09 14 08/13/19 04:45 98.0 F 102 H 143/71 94 L 08/13/19 04:23 98 F 93 18 134/85 97 08/13/19 02:39 98.6 F 96 18 134/85 94 L 08/13/19 00:07 98.4 F 110 H 22 128/116 94 L Intake and Output 08/12/19 08/13/19 08/13/19 22:59 06:59 14:59 Intake Total 10 200 Balance 10 200 Intake: Oral 10 200 Other: # Voids 1 Weight 72.575 kg GENERAL EXAM: Very pleasant 63-year-old female patient. Alert, active, c omfortable in no apparent distress. On 2 L nasal cannula. HEAD: Normocephalic. EYES: Normal reaction of pupils, equal size. NOSE: Clear with pink turbinates. THROAT: No erythema or exudates. NECK: No masses, no JVD. CHEST: No chest wall deformity. LUNGS: Equal air entry with bilateral wheeze, diminished throughout. CVS: S1 and S2 normal with no audible murmur, regular rhythm. ABDOMEN: No hepatosplenomegaly, normal bowel sounds, no guarding or rigidity. SPINE: No scoliosis or deformity SKIN: No rashes CENTRAL NERVOUS SYSTEM: No focal deficits, tone is normal in all 4 extremities. Results CBC & Chem 7: 08/13/19 00:29 08/13/19 00:29 Labs: Abnormal Lab Results - Last 24 Hours (Table) 08/13/19 08/13/19 08/13/19 Range/Units 00:29 00:29 00:29 Eosinophils # 1.2 H (0-0.7) k/uL D-Dimer 0.67 H (<0.60) mg/L FEU BUN 18 H (7-17) mg/dL Glucose 131 H (74-99) mg/dL POC Glucose (mg/dL) (75-99) mg/dL 08/13/19 08/13/19 Range/Units 06:56 11:33 Eosinophils # (0-0.7) k/uL D-Dimer (<0.60) mg/L FEU BUN (7-17) mg/dL Glucose (74-99) mg/dL POC Glucose (mg/dL) 173 H 199 H (75-99) mg/dL Thrombosis Risk Factor Assmnt - Choose All That Apply Each Factor Represents 1 point: Age 41-60 years Thrombosis Risk Factor Assessment Total Risk Factor Score: 1 Thrombosis Risk Factor Assessment Level: Low Risk Assessment and Plan Assessment: #1 Acute exacerbation of chronic obstructive pulmonary disease, complicated by purulent tracheobronchitis. - patient is started on IV Solu-Medrol, bronchodilator nebulizer treatments and O2 per nasal cannula keeping SpO2 greater than 92% - Pulmonary is following and recommending to continue current management 2 Chronic and ongoing tobacco dependence; counseling done; patient relates she quit smoking recently. 3 Hypertension. 4 scoliosis 5 seasonal ALLERGIES 6 osteoarthritis 7 history of [employer] aneurysm that has been tapped 8 history of atrial fibrillation maintained on long-term and to coagulation with Eliquis. Her rate is well-controlled for the time being. Continue Cardizem. DVT prophylaxis; systemic anticoagulation CODE STATUS; full code Time with Patient: Greater than 30
[2019-08-13 17:17] LABS: Glucose,Whole Blood 169 mg/dL (75-99)
[2019-08-13] MEDS: MONTELUKAST 10 MG TAB PO SCH (20:31)
[2019-08-14] MEDS: methylPREDNISolone SOD SUCCI 125 MG/2 ML VIAL IV SCH ×4 (05:39→23:47)
[2019-08-14 07:36] LABS: Glucose,Whole Blood 151 mg/dL (75-99)
[2019-08-14 08:23] LABS: Basophils % (A) 0 %; Eosinophils # (A) 0.1 k/uL (0-0.7); Eosinophils % (A) 1 %; HCT 42.3 % (34.0-46.0); HGB 13.4 gm/dL (11.4-16.0); Lymphocytes # (A) 0.9 k/uL (1.0-4.8); Lymphocytes % (A) 6 %; MCH 27.7 pg (25.0-35.0); MCHC 31.7 g/dL (31.0-37.0); MCV 87.3 fL (80.0-100.0); Mean Platelet Volume 7.1; Monocytes # (A) 0.3 k/uL (0-1.0); Monocytes % (A) 2 %; Neutrophils # (A) 14.2 k/uL (1.3-7.7); Neutrophils % (A) 91 %; Platelet Count 280 k/uL (150-450); RBC 4.85 m/uL (3.80-5.40); RDW 13.4 % (11.5-15.5); WBC 15.5 k/uL (3.8-10.6)
[2019-08-14 08:29] LABS: African American GFR (CKD) >90 (>60 ml/min/1.73 sqM); Anion Gap 9 mmol/L; Blood Urea Nitrogen 16 mg/dL (7-17); Calcium 10.1 mg/dL (8.4-10.2); Carbon Dioxide 27 mmol/L (22-30); Chloride 104 mmol/L (98-107); Glucose 157 mg/dL (74-99); Potassium 4.3 mmol/L (3.5-5.1); Sodium 140 mmol/L (137-145)
[2019-08-14] MEDS: IPRATROPIUM-ALBUTEROL 3 ML NEB INHALATION SCH ×4 (08:36→19:27)
[2019-08-14] MEDS: SYMBICORT 160-4.5 MCG INHALER INHALATION SCH ×2 (08:36→19:27)
[2019-08-14] MEDS: ASPIRIN 325 MG TAB PO SCH (08:51)
[2019-08-14] MEDS: ATORVASTATIN 40 MG TAB PO SCH (08:51)
[2019-08-14] MEDS: DILTIAZEM CD 180 MG CAP.ER.24H PO SCH (08:51)
[2019-08-14] MEDS: INSULIN ASPART (NovoLOG) 100 UNIT/ML VIAL SQ SCH ×4 (09:07→20:32)
[2019-08-14 11:14] LABS: Glucose,Whole Blood 134 mg/dL (75-99)
--- NOTE | 2019-08-14 14:32 | P.PN ---
Subjective Progress Note Date: 08/14/19 A 62-year-old female patient, an ex-smoker with known history of COPD was oxygen dependent 2 L per minute nasal cannula maintained on a combination of Advair and Incruse on outpatient basis. The patient has been followed up in our office. The patient comes in yesterday to the intensive because of worsening shortness of breath of a week's duration. She had increased dyspnea cough chest tightness and wheezing. At the same time, she was feeling that her heart was racing as the patient is known to have underlying chronic atrial fibrillation. For all this reasons she came into the hospital. No angina. No palpitation. No swelling lower extremities. no altered mentation. White cell count was at 9.8. D-dimer was at 0.67. BUN 18 creatinine of 0.7. LFTs are within normal. First set of troponin is been negative. Chest exit showed no acute cardio pulmonary process. On today's evaluation of 08/14/2019 I'm seeing this patient for a follow-up , is feeling better patient is less short of breath compared to yesterday. Cough and wheezing and shortness of breath has subsided. Nevertheless, on examination, she remains bronchus spastic and wheezy. No other new complaints otherwise for now. No angina. No palpitation and altered mentation. She is requesting a flu shot which will be given to her at time of discharge. We'll also check a magnesium level as she has a tendency to drop her magnesium level from previous visits. Objective - Vital Signs Vital signs: Vital Signs Temp 97.9 F 08/14/19 11:09 Pulse 84 08/14/19 12:05 Resp 20 08/14/19 11:09 BP 137/59 08/14/19 11:09 Pulse Ox 91 L 08/14/19 11:09 Intake & Output 08/13/19 08/14/19 08/14/19 18:59 06:59 18:59 Intake Total 200 400 Balance 200 400 Intake: Oral 200 400 Other: Voiding Method Toilet Toilet # Voids 2 2 2 - Exam GENERAL EXAM: Very pleasant 63-year-old female patient. Alert, active, comfortable in no apparent distress. On 2 L nasal cannula. HEAD: Normocephalic. EYES: Normal reaction of pupils, equal size. NOSE: Clear with pink turbinates. THROAT: No erythema or exudates. NECK: No masses, no JVD. CHEST: No chest wall deformity. LUNGS: Equal air entry with bilateral wheeze, diminished throughout. CVS: S1 and S2 normal with no audible murmur, regular rhythm. ABDOMEN: No hepatosplenomegaly, normal bowel sounds, no guarding or rigidity. SPINE: No scoliosis or deformity SKIN: No rashes CENTRAL NERVOUS SYSTEM: No focal deficits, tone is normal in all 4 extremities. EXTREMITIES: There is no peripheral edema. No clubbing, no cyanosis. Peripheral pulses are intact. - Labs CBC & Chem 7: 08/14/19 07:50 08/14/19 07:50 Labs: Abnormal Lab Results - Last 24 Hours (Table) 08/13/19 08/14/19 08/14/19 Range/Units 17:16 07:35 07:50 WBC 15.5 H (3.8-10.6) k/uL Neutrophils # 14.2 H (1.3-7.7) k/uL Lymphocytes # 0.9 L (1.0-4.8) k/uL Glucose (74-99) mg/dL POC Glucose (mg/dL) 169 H 151 H (75-99) mg/dL 08/14/19 08/14/19 Range/Units 07:50 11:12 WBC (3.8-10.6) k/uL Neutrophils # (1.3-7.7) k/uL Lymphocytes # (1.0-4.8) k/uL Glucose 157 H (74-99) mg/dL POC Glucose (mg/dL) 134 H (75-99) mg/dL Assessment and Plan Plan: #1 Acute exacerbation of chronic obstructive pulmonary disease, complicated by purulent tracheobronchitis. #2 Chronic and ongoing tobacco dependence. #3 Hypertension. 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 Her rate is well-controlled for the time being. Continue Cardizem. Plan Agree on the current management. Continue bronchodilators. Continue steroids. Chest x-ray was reviewed. The patient is not smoking for now. Outpatient medications including combination of Advair and Incruse is very appropriate. Continue Cardizem regarding the atrial fibrillation the patient is also on long- term and to coagulation with Eliquis. Activity patient is improving. I'll give her another 24 hours of breathing treatment and steroids and hopefully within next 24 hours she'll improve further I'm going to wean her down to prednisone burst taper. She will need a flu shot prior to her discharge. Medication will be continued including Advair, Incruse and/or nebulized treatments. She will need also a magnesium checked.
[2019-08-14] MEDS: ACETAMINOPHEN TAB 325 MG TAB PO PRN ×2 (15:10→20:33)
--- NOTE | 2019-08-14 16:55 | P.PN ---
Subjective Progress Note Date: 08/14/19 Principal diagnosis: Acute exacerbation COPD complicated by purulent tracheobronchitis 62-year-old female patient, an ex-smoker with known history of COPD was oxygen dependent 2 L per minute nasal cannula maintained on a combination of Advair and Incruse on outpatient basis. The patient has been followed up in our office. The patient comes in yesterday to the intensive because of worsening shortness of breath of a week's duration. She had increased dyspnea cough chest tightness and wheezing. At the same time, she was feeling that her heart was racing as the patient is known to have underlying chronic atrial fibrillation. For all this reasons she came into the hospital. No angina. No palpitation. No swelling lower extremities. no altered mentation. White cell count was at 9.8. D-dimer was at 0.67. BUN 18 creatinine of 0.7. LFTs are within normal. First set of troponin is been negativ 08/14/2019 Patient is seen and evaluated in room at bedside; does report slight improvement in symptoms Vital signs are reviewed and remained stable with a temperature of 97.9, pulse 82, respiration 20 and blood pressure 137/59 with SpO2 of 91% on 2 L Laboratory review shows elevated white blood count of 15.5, hemoglobin of 13.4 and platelet count of 280; sodium 140, potassium 4.3 and glucose ranging between 134 -157 Patient remains on Solu-Medrol 60 mg IV every 6 hours along with nebulizer treatments with DuoNeb and Symbicort inhaler; continue with Singulair 10 mg daily at bedtime; pulmonary service is following and recommending to continue current management and outpatient inhaler therapy Objective - Vital Signs Vital signs: Vital Signs Temp 97.9 F 08/14/19 11:09 Pulse 84 08/14/19 12:05 Resp 20 08/14/19 11:09 BP 137/59 08/14/19 11:09 Pulse Ox 91 L 08/14/19 11:09 Intake & Output 08/13/19 08/14/19 08/14/19 18:59 06:59 18:59 Intake Total 200 Balance 200 Intake: Oral 200 Other: Voiding Method Toilet Toilet # Voids 2 2 - Exam GENERAL EXAM: Very pleasant 63-year-old female patient. Alert, active, comfortable in no apparent distress. On 2 L nasal cannula. HEAD: Normocephalic. EYES: Normal reaction of pupils, equal size. NOSE: Clear with pink turbinates. THROAT: No erythema or exudates. NECK: No masses, no JVD. CHEST: No chest wall deformity. LUNGS: Equal air entry with bilateral wheeze, diminished throughout. CVS: S1 and S2 normal with no audible murmur, regular rhythm. ABDOMEN: No hepatosplenomegaly, normal bowel sounds, no guarding or rigidity. SPINE: No scoliosis or deformity SKIN: No rashes - Labs CBC & Chem 7: 08/14/19 07:50 08/14/19 07:50 Labs: Abnormal Lab Results - Last 24 Hours (Table) 08/13/19 08/14/19 08/14/19 Range/Units 17:16 07:35 07:50 WBC 15.5 H (3.8-10.6) k/uL Neutrophils # 14.2 H (1.3-7.7) k/uL Lymphocytes # 0.9 L (1.0-4.8) k/uL Glucose (74-99) mg/dL POC Glucose (mg/dL) 169 H 151 H (75-99) mg/dL 08/14/19 08/14/19 Range/Units 07:50 11:12 WBC (3.8-10.6) k/uL Neutrophils # (1.3-7.7) k/uL Lymphocytes # (1.0-4.8) k/uL Glucose 157 H (74-99) mg/dL POC Glucose (mg/dL) 134 H (75-99) mg/dL Assessment and Plan Assessment: #1 Acute exacerbation of chronic obstructive pulmonary disease, complicated by purulent tracheobronchitis. - patient is started on IV Solu-Medrol, bronchodilator nebulizer treatments and O2 per nasal cannula keeping SpO2 greater than 92% - Pulmonary is following and recommending to continue current management 2 Chronic and ongoing tobacco dependence; counseling done; patient relates she quit smoking recently. 3 Hypertension. 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 Her rate is well-controlled for the time being. Continue Cardizem. DVT prophylaxis; systemic anticoagulation CODE STATUS; full code Time with Patient: Greater than 30
[2019-08-14 17:01] LABS: Glucose,Whole Blood 155 mg/dL (75-99)
[2019-08-14 19:39] LABS: Glucose,Whole Blood 172 mg/dL (75-99)
[2019-08-14] MEDS: MONTELUKAST 10 MG TAB PO SCH (20:32)
[2019-08-14] MEDS: APIXABAN 5 MG TAB PO SCH (20:32)
[2019-08-15] MEDS: methylPREDNISolone SOD SUCCI 125 MG/2 ML VIAL IV SCH ×2 (06:05→12:47)
[2019-08-15 06:52] LABS: Glucose,Whole Blood 221 mg/dL (75-99)
[2019-08-15] MEDS: IPRATROPIUM-ALBUTEROL 3 ML NEB INHALATION SCH ×4 (07:18→20:57)
[2019-08-15] MEDS: SYMBICORT 160-4.5 MCG INHALER INHALATION SCH ×2 (07:18→20:57)
[2019-08-15] MEDS: INSULIN ASPART (NovoLOG) 100 UNIT/ML VIAL SQ SCH ×4 (07:33→20:59)
[2019-08-15] MEDS: APIXABAN 5 MG TAB PO SCH ×2 (07:34→20:59)
[2019-08-15] MEDS: ATORVASTATIN 40 MG TAB PO SCH (07:34)
[2019-08-15] MEDS: DILTIAZEM CD 180 MG CAP.ER.24H PO SCH (07:34)
[2019-08-15 07:35] LABS: Basophils % (A) 0 %; Eosinophils % (A) 0 %; HCT 41.3 % (34.0-46.0); HGB 12.6 gm/dL (11.4-16.0); Lymphocytes # (A) 0.8 k/uL (1.0-4.8); Lymphocytes % (A) 5 %; MCH 27.3 pg (25.0-35.0); MCHC 30.6 g/dL (31.0-37.0); MCV 89.3 fL (80.0-100.0); Mean Platelet Volume 6.8; Monocytes # (A) 0.2 k/uL (0-1.0); Monocytes % (A) 2 %; Neutrophils % (A) 93 %; Platelet Count 262 k/uL (150-450); RBC 4.62 m/uL (3.80-5.40); RDW 13.6 % (11.5-15.5); WBC 14.1 k/uL (3.8-10.6)
[2019-08-15 07:47] LABS: African American GFR (CKD) >90 (>60 ml/min/1.73 sqM); Anion Gap 11 mmol/L; Blood Urea Nitrogen 18 mg/dL (7-17); Calcium 9.9 mg/dL (8.4-10.2); Carbon Dioxide 27 mmol/L (22-30); Chloride 103 mmol/L (98-107); Glucose 207 mg/dL (74-99); Potassium 4.3 mmol/L (3.5-5.1); Sodium 141 mmol/L (137-145)
[2019-08-15 11:27] LABS: Glucose,Whole Blood 139 mg/dL (75-99)
--- NOTE | 2019-08-15 14:07 | P.PN ---
Subjective Progress Note Date: 08/15/19 Principal diagnosis: Acute exacerbation of COPD A 62-year-old female patient, an ex-smoker with known history of COPD was oxygen dependent 2 L per minute nasal cannula maintained on a combination of Advair and Incruse on outpatient basis. The patient has been followed up in our office. The patient comes in yesterday to the intensive because of worsening shortness of breath of a week's duration. She had increased dyspnea cough chest tightness and wheezing. At the same time, she was feeling that her heart was racing as the patient is known to have underlying chronic atrial fibrillation. For all this reasons she came into the hospital. No angina. No palpitation. No swelling lower extremities. no altered mentation. White cell count was at 9.8. D-dimer was at 0.67. BUN 18 creatinine of 0.7. LFTs are within normal. First set of troponin is been negative. Chest exit showed no acute cardio pulmonary process. On today's evaluation of 08/14/2019 I'm seeing this patient for a follow-up , is feeling better patient is less short of breath compared to yesterday. Cough and wheezing and shortness of breath has subsided. Nevertheless, on examination, she remains bronchus spastic and wheezy. No other new complaints otherwise for now. No angina. No palpitation and altered mentation. She is requesting a flu shot which will be given to her at time of discharge. We'll also check a magnesium level as she has a tendency to drop her magnesium level from previous visits. Reevaluated today on 08/15/2019, patient is still on treatment for acute exacerbation of COPD, definite improvement, less cough and less wheezing less shortness of breath, but definitely not back to her baseline. All her meds were reviewed, labs were reviewed, patient is improving but relatively slowly. WBC count is 14.1 hemoglobin 12.6 electrolytes and the profile are normal. Chest x- ray on admission showed no evidence of active disease Objective - Vital Signs Vital signs: Vital Signs Temp 98.2 F 08/15/19 11:34 Pulse 98 08/15/19 11:51 Resp 19 08/15/19 11:34 BP 146/78 08/15/19 11:34 Pulse Ox 97 08/15/19 11:34 Intake & Output 08/14/19 08/15/19 08/15/19 18:59 06:59 18:59 Intake Total 400 590 Balance 400 590 Intake: Oral 400 590 Other: Voiding Method Toilet Toilet Toilet # Voids 2 2 - Exam Physical Exam: Revealed a 64-year-old female slightly anxious in no distress. Head: Atraumatic normocephalic. HEENT:[Neck is supple.] [No neck masses.] [No thyromegaly.] [No JVD.] Chest: [Symmetrical chest expansion, wheezing on forced expiratory maneuver noted bilaterally.] Cardiac Exam: [Normal S1 and S2, no S3 gallop, no murmur.] Abdomen: [Soft, nontender, no megaly, no rebound, no guarding, normal bowel sounds.] Extremities: [No clubbing, no edema, no cyanosis.] Neurological Exam: [No focal neurologic deficit.] Alert oriented 3. Psychiatric: Normal mood affect and normal mental status examination. Skin: No rashes - Labs CBC & Chem 7: 08/15/19 07:15 08/15/19 07:15 Labs: Abnormal Lab Results - Last 24 Hours (Table) 08/14/19 08/14/19 08/15/19 Range/Units 16:56 19:38 06:50 WBC (3.8-10.6) k/uL MCHC (31.0-37.0) g/dL Neutrophils # (1.3-7.7) k/uL Lymphocytes # (1.0-4.8) k/uL BUN (7-17) mg/dL Glucose (74-99) mg/dL POC Glucose (mg/dL) 155 H 172 H 221 H (75-99) mg/dL 08/15/19 08/15/19 08/15/19 Range/Units 07:15 07:15 11:26 WBC 14.1 H (3.8-10.6) k/uL MCHC 30.6 L (31.0-37.0) g/dL Neutrophils # 13.0 H (1.3-7.7) k/uL Lymphocytes # 0.8 L (1.0-4.8) k/uL BUN 18 H (7-17) mg/dL Glucose 207 H (74-99) mg/dL POC Glucose (mg/dL) 139 H (75-99) mg/dL Assessment and Plan Assessment: Impression: Acute exacerbation of COPD Acute purulent tracheobronchitis Ongoing tobacco dependence syndrome Hypertension Scoliosis Seasonal ALLERGIC rhinitis Degenerative joint disease History of chronic atrial fibrillation maintained on anticoagulation therapy and on Cardizem. Continue present supportive care measures, consider switching patient from IV Solu-Medrol to oral prednisone, and possible discharge planning in the next 24 hours. Patient is to resume back her usual medications prior to admission along with a course of prednisone 30 mg tapered over 3 weeks. Time with Patient: Less than 30
--- NOTE | 2019-08-15 15:40 | P.PN ---
Subjective Progress Note Date: 08/15/19 Principal diagnosis: 62-year-old female patient, an ex-smoker with known history of COPD was oxygen dependent 2 L per minute nasal cannula maintained on a combination of Advair and Incruse on outpatient basis. The patient has been followed up in our office. The patient comes in yesterday to the intensive because of worsening shortness of breath of a week's duration. She had increased dyspnea cough chest tightness and wheezing. At the same time, she was feeling that her heart was racing as the patient is known to have underlying chronic atrial fibrillation. For all this reasons she came into the hospital. No angina. No palpitation. No swelling lower extremities. no altered mentation. White cell count was at 9.8. D-dimer was at 0.67. BUN 18 creatinine of 0.7. LFTs are within normal. First set of troponin is been negativ 08/14/2019 Patient is seen and evaluated in room at bedside; does report slight improvement in symptoms Vital signs are reviewed and remained stable with a temperature of 97.9, pulse 82, respiration 20 and blood pressure 137/59 with SpO2 of 91% on 2 L Laboratory review shows elevated white blood count of 15.5, hemoglobin of 13.4 and platelet count of 280; sodium 140, potassium 4.3 and glucose ranging between 134 -157 Patient remains on Solu-Medrol 60 mg IV every 6 hours along with nebulizer treatments with DuoNeb and Symbicort inhaler; continue with Singulair 10 mg daily at bedtime; pulmonary service is following and recommending to continue current management and outpatient inhaler therapy 08/15/2019 Recent is sitting up in bed in no acute distress. Patient states her breathing has much improved and is currently being transitioned to oral prednisone from IV steroids. Pulmonary is following. Patient denies chest pain, shortness of breath, or palpitations at this time. Patient is currently maintained on 2 L of oxygen via nasal cannula and that is her baseline. Patient denies any nausea or vomiting and is been tolerating diet. Patient is afebrile. Humidification has been placed on her 02 via nasal cannula. Patient would like to go home tomorrow if possible. No acute overnight issues. Guarded prognosis. Objective - Vital Signs Vital signs: Vital Signs Temp 98.2 F 08/15/19 11:34 Pulse 98 08/15/19 11:51 Resp 19 08/15/19 11:34 BP 146/78 08/15/19 11:34 Pulse Ox 97 08/15/19 11:34 Intake & Output 08/14/19 08/15/19 08/15/19 18:59 06:59 18:59 Intake Total 400 590 Balance 400 590 Intake: Oral 400 590 Other: Voiding Method Toilet Toilet Toilet # Voids 2 2 - Exam GENERAL EXAM: Very pleasant 63-year-old female patient. Alert, active, comfortable in no apparent distress. On 2 L nasal cannula. This is her baseline. HEAD: Normocephalic. EYES: Normal reaction of pupils, equal size. NOSE: Clear with pink turbinates. THROAT: No erythema or exudates. NECK: No masses, no JVD. CHEST: No chest wall deformity. LUNGS: Equal air entry with bilateral wheeze, diminished throughout. Slight improvement on the wheezing. CVS: S1 and S2 normal with no audible murmur, regular rhythm. ABDOMEN: No hepatosplenomegaly, normal bowel sounds, no guarding or rigidity. SPINE: No scoliosis or deformity SKIN: No rashes - Labs CBC & Chem 7: 08/15/19 07:15 08/15/19 07:15 Labs: Abnormal Lab Results - Last 24 Hours (Table) 08/14/19 08/14/19 08/15/19 Range/Units 16:56 19:38 06:50 WBC (3.8-10.6) k/uL MCHC (31.0-37.0) g/dL Neutrophils # (1.3-7.7) k/uL Lymphocytes # (1.0-4.8) k/uL BUN (7-17) mg/dL Glucose (74-99) mg/dL POC Glucose (mg/dL) 155 H 172 H 221 H (75-99) mg/dL 08/15/19 08/15/19 08/15/19 Range/Units 07:15 07:15 11:26 WBC 14.1 H (3.8-10.6) k/uL MCHC 30.6 L (31.0-37.0) g/dL Neutrophils # 13.0 H (1.3-7.7) k/uL Lymphocytes # 0.8 L (1.0-4.8) k/uL BUN 18 H (7-17) mg/dL Glucose 207 H (74-99) mg/dL POC Glucose (mg/dL) 139 H (75-99) mg/dL Assessment and Plan Assessment: 1 Acute exacerbation of chronic obstructive pulmonary disease, complicated by purulent tracheobronchitis. -Patient is being transitioned oral steroids and will continue bronchodilator nebulizer treatments and O2 per nasal cannula keeping SpO2 greater than 92% - Pulmonary is following and recommending to continue current management 2 Chronic and ongoing tobacco dependence; counseling done; patient relates she quit smoking recently. 3 Hypertension. 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 Her rate is well-controlled for the time being. Continue Cardizem. DVT prophylaxis; systemic anticoagulation CODE STATUS; full code Recommendations and discussion: Recommend continue current medications, management, and symptomatic treatment. Patient is being transitioned oral steroids today and will continue to monitor closely. Pulmonary is following closely. Patient would like to go home tomorrow. Guarded prognosis. Further recommendations to follow. Possible discharge in 24 hours.
[2019-08-15] MEDS: predniSONE 20 MG TAB PO SCH (16:13)
[2019-08-15 17:11] LABS: Glucose,Whole Blood 130 mg/dL (75-99)
[2019-08-15 20:38] LABS: Glucose,Whole Blood 172 mg/dL (75-99)
[2019-08-15] MEDS: MONTELUKAST 10 MG TAB PO SCH (20:59)
[2019-08-16 06:16] VITALS: BP 144/56; RESP 18; TEMP 97.3
[2019-08-16 07:12] LABS: Glucose,Whole Blood 116 mg/dL (75-99)
[2019-08-16] MEDS: IPRATROPIUM-ALBUTEROL 3 ML NEB INHALATION SCH ×2 (07:14→11:29)
[2019-08-16] MEDS: SYMBICORT 160-4.5 MCG INHALER INHALATION SCH (07:22)
[2019-08-16 07:37] LABS: African American GFR (CKD) >90 (>60 ml/min/1.73 sqM); Anion Gap 10 mmol/L; Blood Urea Nitrogen 18 mg/dL (7-17); Calcium 9.8 mg/dL (8.4-10.2); Carbon Dioxide 27 mmol/L (22-30); Chloride 105 mmol/L (98-107); Glucose 116 mg/dL (74-99); Potassium 4.5 mmol/L (3.5-5.1); Sodium 142 mmol/L (137-145)
[2019-08-16 07:45] LABS: Basophils % (A) 0 %; Eosinophils % (A) 0 %; HCT 40.8 % (34.0-46.0); HGB 13.1 gm/dL (11.4-16.0); Lymphocytes % (A) 9 %; MCH 28.2 pg (25.0-35.0); MCHC 32.1 g/dL (31.0-37.0); MCV 87.9 fL (80.0-100.0); Mean Platelet Volume 6.2; Monocytes # (A) 0.5 k/uL (0-1.0); Monocytes % (A) 4 %; Neutrophils # (A) 9.2 k/uL (1.3-7.7); Neutrophils % (A) 85 %; Platelet Count 262 k/uL (150-450); RBC 4.64 m/uL (3.80-5.40); RDW 13.2 % (11.5-15.5); WBC 10.9 k/uL (3.8-10.6)
[2019-08-16] MEDS: APIXABAN 5 MG TAB PO SCH (07:47)
[2019-08-16] MEDS: DILTIAZEM CD 180 MG CAP.ER.24H PO SCH (07:47)
[2019-08-16] MEDS: ATORVASTATIN 40 MG TAB PO SCH (07:47)
[2019-08-16] MEDS: predniSONE 20 MG TAB PO SCH (07:47)
[2019-08-16] MEDS: INSULIN ASPART (NovoLOG) 100 UNIT/ML VIAL SQ SCH (07:49)
[2019-08-16] MEDS ORDERED: INFLUENZA VACCINE (6 MOS+) 60 MCG/0.5 ML SYRINGE IM ONE (09:38)
[2019-08-16 11:17] LABS: Glucose,Whole Blood 111 mg/dL (75-99)
[2019-08-16 11:46] VITALS: PULSE 92
--- NOTE | 2019-08-16 11:57 | P.PN ---
Subjective Progress Note Date: 08/16/19 Principal diagnosis: Acute exacerbation of chronic obstructive pulmonary disease. A 62-year-old female patient, an ex-smoker with known history of COPD was oxygen dependent 2 L per minute nasal cannula maintained on a combination of Advair and Incruse on outpatient basis. The patient has been followed up in our office. The patient comes in yesterday to the intensive because of worsening shortness of breath of a week's duration. She had increased dyspnea cough chest tightness and wheezing. At the same time, she was feeling that her heart was racing as the patient is known to have underlying chronic atrial fibrillation. For all this reasons she came into the hospital. No angina. No palpitation. No swelling lower extremities. no altered mentation. White cell count was at 9.8. D-dimer was at 0.67. BUN 18 creatinine of 0.7. LFTs are within normal. First set of troponin is been negative. Chest exit showed no acute cardio pulmonary process. On today's evaluation of 08/14/2019 I'm seeing this patient for a follow-up , is feeling better patient is less short of breath compared to yesterday. Cough and wheezing and shortness of breath has subsided. Nevertheless, on examination, she remains bronchus spastic and wheezy. No other new complaints otherwise for now. No angina. No palpitation and altered mentation. She is requesting a flu shot which will be given to her at time of discharge. We'll also check a magnesium level as she has a tendency to drop her magnesium level from previous visits. Reevaluated today on 08/15/2019, patient is still on treatment for acute exacerbation of COPD, definite improvement, less cough and less wheezing less shortness of breath, but definitely not back to her baseline. All her meds were reviewed, labs were reviewed, patient is improving but relatively slowly. WBC count is 14.1 hemoglobin 12.6 electrolytes and the profile are normal. Chest x- ray on admission showed no evidence of active disease The patient is seen today 08/16/2019 in follow-up on the regular medical floor. She is awake and alert in no acute distress. Resting comfortably in bed. Feeling back to her baseline. No worsening shortness of breath, cough or congestion. No fever or chills. White count 10.9. Hemoglobin 13.1. Cre atinine 0.61. She remains on DuoNeb inhalations, Symbicort, prednisone taper, Singulair. Anticoagulated with Eliquis. Objective - Vital Signs Vital signs: Vital Signs Temp 97.3 F L 08/16/19 06:15 Pulse 92 08/16/19 11:42 Resp 18 08/16/19 06:15 BP 144/56 08/16/19 06:15 Pulse Ox 93 L 08/16/19 07:15 Intake & Output 08/15/19 08/16/19 08/16/19 18:59 06:59 18:59 Other: Voiding Method Toilet Toilet Toilet # Voids 3 2 - Exam GENERAL EXAM: Alert, pleasant 64-year-old female patient comfortable in no apparent distress. On 2 L nasal cannula. HEAD: Normocephalic. EYES: Normal reaction of pupils, equal size. NOSE: Clear with pink turbinates. THROAT: No erythema or exudates. NECK: No masses, no JVD. CHEST: No chest wall deformity. LUNGS: Equal air entry with faint end expiratory wheeze, diminished CVS: S1 and S2 normal with no audible murmur, regular rhythm. ABDOMEN: No hepatosplenomegaly, normal bowel sounds, no guarding or rigidity. SPINE: No scoliosis or deformity SKIN: No rashes CENTRAL NERVOUS SYSTEM: No focal deficits, tone is normal in all 4 extremities. EXTREMITIES: There is no peripheral edema. No clubbing, no cyanosis. Peripheral pulses are intact. - Labs CBC & Chem 7: 08/16/19 06:52 08/16/19 06:52 Labs: Abnormal Lab Results - Last 24 Hours (Table) 08/15/19 08/15/19 08/16/19 Range/Units 17:10 20:36 06:52 WBC 10.9 H (3.8-10.6) k/uL Neutrophils # 9.2 H (1.3-7.7) k/uL BUN (7-17) mg/dL Glucose (74-99) mg/dL POC Glucose (mg/dL) 130 H 172 H (75-99) mg/dL 08/16/19 08/16/19 08/16/19 Range/Units 06:52 07:10 11:15 WBC (3.8-10.6) k/uL Neutrophils # (1.3-7.7) k/uL BUN 18 H (7-17) mg/dL Glucose 116 H (74-99) mg/dL POC Glucose (mg/dL) 116 H 111 H (75-99) mg/dL Assessment and Plan Assessment: Impression: Acute exacerbation of COPD Acute purulent tracheobronchitis Ongoing tobacco dependence syndrome Hypertension Scoliosis Seasonal ALLERGIC rhinitis Degenerative joint disease History of chronic atrial fibrillation maintained on anticoagulation therapy and on Cardizem. Plan: The patient was seen and evaluated by Dr. Mercado. She is currently stable from the pulmonary standpoint. She could be discharged home on a prednisone burst and taper starting at 40 mg daily for 4 days. Follow-up in our office in 1-2 weeks' time. She is encouraged to call sooner with any recurrence of symptoms or other questions or concerns. I, the cosigning physician, performed a history & physical examination of the patient. Lungs sounds with faint end expiratory wheeze, diminished. Maintaining good O2 saturations in the 90s on 2 L/m per nasal cannula. I discussed the assessment and plan of care with my nurse practitioner, Zoey Marks. I attest to the above note as dictated by her.
--- NOTE | 2019-08-23 09:24 | P.DS ---
Providers Date of admission: 08/15/19 15:07 Expected date of discharge: 08/16/19 Attending physician: Ghassan Bhatti Consults: 08/13/19 04:10 Consult Physician Routine Consulting Provider: Maciel Winn Reason/Comments: Your patient. COPD exacerbation. Do you want consulting provider notified?: Yes Primary care physician: Marino Kamara [facility] Course: Final diagnosis Acute exacerbation of chronic obstructive pulmonary disease, complicated by purulent tracheobronchitis. 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 Will also be following up with pulmonary in the outpatient setting. Patient will continue on oral prednisone taper. Total time taken is 35 minutes. History of present illness This is a 64-year-old female who was recently admitted for COPD exacerbation along with purulent tracheobronchitis and was being closely monitored. Initially patient was started on some IV steroids which patient states it makes her feel very jittery and will prefer oral prednisone. Patient was transitioned oral prednisone and was tolerating well. Patient will continue the prednisone taper in the outpatient setting and follow-up with pulmonary upon discharge. Patient does have a history of atrial fibrillation and concerned that may cause her heart rate to beat very fast. Currently patient's condition is stable and would like to go home. Patient denies any chest pain or palpitations at this time. Patient's shortness of breath has improved. Patient has a slight cough and is not bringing anything up at this time. Remains afebrile. Patient denies any nausea or vomiting and is tolerating diet. Patient is ready for discharge today. Guarded prognosis. On exam vital signs are stable. Temp is 97.3F, pulse is 72, respirations are 18, blood pressure is 144/56, oxygen saturation is 95% on room air. Cardio S1 and S2 are present. Respiratory system shows diminished breath sounds at the bases with mild expiratory wheezing noted on exam. Abdomen is soft and nontender. Nervous system shows no focal deficits and gait is steady. Please refer to medication reconciliation sheet for a list of medications. Patient Condition at Discharge: Fair Plan - Discharge Summary New Discharge Prescriptions: New Atorvastatin [Lipitor] 40 mg PO DAILY 30 Days #30 tab predniSONE 10 mg PO DIRECTED #30 tab Continue Montelukast [Singulair] 10 mg PO HS Ipratropium-Albuterol Nebulize [Duoneb 0.5 mg-3 mg/3 ml Soln] 3 ml INHALATION RT-QID Umeclidinium [place] [Incruse Ellipta] 1 puff INHALATION RT-DAILY Apixaban [Eliquis] 5 mg PO BID Magnesium 200 mg PO DAILY PRN PRN Reason: LEG CRAMPS Diltiazem HCl [Diltiazem 24Hr ER] 180 mg PO QAM 30 Days #30 cap Fluticasone/Salmeterol [Fluticasone-Salmeterol 113-14] 2 puff INHALATION RT- BID 30 Days #1 inhalation Discharge Medication List Montelukast [Singulair] 10 mg PO HS 02/15/19 [History] Ipratropium-Albuterol Nebulize [Duoneb 0.5 mg-3 mg/3 ml Soln] 3 ml INHALATION RT -QID 03/28/19 [History] Umeclidinium [place] [Incruse Ellipta] 1 puff INHALATION RT-DAILY 03/28/19 [History] Apixaban [Eliquis] 5 mg PO BID 08/13/19 [History] Magnesium 200 mg PO DAILY PRN 08/13/19 [History] Atorvastatin [Lipitor] 40 mg PO DAILY 30 Days #30 tab 08/16/19 [Rx] Diltiazem HCl [Diltiazem 24Hr ER] 180 mg PO QAM 30 Days #30 cap 08/16/19 [Rx] Fluticasone/Salmeterol [Fluticasone-Salmeterol 113-14] 2 puff INHALATION RT-BID 30 Days #1 inhalation 08/16/19 [Rx] predniSONE 10 mg PO DIRECTED #30 tab 08/16/19 [Rx] Follow up Appointment(s)/Referral(s): Frankie Pichardo MD [Primary Care Provider] - 08/19/19 10:10 am Zoey Marks NPC [Nurse Practitioner] - 08/26/19 3:00 pm Ambulatory/Diagnostic Orders: Complete Blood Count w/diff [LAB.AMB] Time Frame: 3 Days, Location: None Selected Patient Instructions/Handouts: Prednisone (By mouth), Atorvastatin (By mouth), COPD (Chronic Obstructive Pulmonary Disease) (DC) Activity/Diet/Wound Care/Special Instructions: Activity Limited until follow-up Follow-up with primary care provider upon discharge Continue current diet Repeat labs in 2-3 days Continue with prednisone taper as directed Discharge Disposition: HOME SELF-CARE
== END 2019-08-16 12:23 | disposition home or self-care (01) | DRG 191 ==
LOC: EC 00:07 → 4SSUR 04:14 → 3NMEDONC 17:17 → OBSVTOIN 08-15 15:07
PROVIDERS: ADMIT Hospitalist; ATTEND Hospitalist
DX: J44.0 Chronic obstructive pulmonary disease with (acute) lower respiratory infection (principal); I48.20 Chronic atrial fibrillation, unspecified; J20.9 Acute bronchitis, unspecified; J44.1 Chronic obstructive pulmonary disease with (acute) exacerbation; F17.200 Nicotine dependence, unspecified, uncomplicated; I10 Essential (primary) hypertension; I48.0 Paroxysmal atrial fibrillation; J30.2 Other seasonal allergic rhinitis; M19.90 Unspecified osteoarthritis, unspecified site; M41.9 Scoliosis, unspecified; Z79.01 Long term (current) use of anticoagulants; Z79.82 Long term (current) use of aspirin; Z79.899 Other long term (current) drug therapy; Z82.49 Family history of ischemic heart disease and other diseases of the circulatory system; Z83.3 Family history of diabetes mellitus; Z86.73 Personal history of transient ischemic attack (TIA), and cerebral infarction without residual deficits; Z99.81 Dependence on supplemental oxygen; Z88.1 Allergy status to other antibiotic agents; Z88.2 Allergy status to sulfonamides; Z88.8 Allergy status to other drugs, medicaments and biological substances
CPT/HCPCS: 36415; 71045; 80048; 80053; 83735; 83880; 84484; 85025; 85379; 85610; 85730; 90686; 93005; 94640; 94760; 96374; 99285

== ENCOUNTER 2019-10-19 12:57 | Inpatient (IN) | payer OTHER ==
[2019-10-19] MEDS ORDERED: ONDANSETRON 4 MG/2 ML VIAL IVP STA (13:01)
[2019-10-19] MEDS ORDERED: HEPARIN SODIUM,PORCINE 5,000 UNIT/ML 1 ML VIAL IV STA (13:03)
[2019-10-19] MEDS ORDERED: ATORVASTATIN 80 MG TAB PO STA (13:04)
[2019-10-19] MEDS: MORPHINE SULFATE 4 MG/ML SYRINGE IVP STA ×2 (13:09→13:16)
--- NOTE | 2019-10-19 13:09 | ED ---
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 She was brought in by EMS. She was given 325 mg aspirin. She states the pain is very severe she cannot quantify it any further it's pressure. Some nausea with it no vomiting some slight shortness of breath with it. No other modifying factors no pain prior to this. MD Complaint: chest pain - Related Data Home Medications Medication Instructions Recorded Confirmed Montelukast [Singulair] 10 mg PO HS 02/15/19 08/13/19 Ipratropium-Albuterol Nebulize 3 ml INHALATION RT-QID 03/28/19 08/13/19 [Duoneb 0.5 mg-3 mg/3 ml Soln] Umeclidinium [place] [Incruse 1 puff INHALATION RT-DAILY 03/28/19 08/13/19 Ellipta] Apixaban [Eliquis] 5 mg PO BID 08/13/19 08/13/19 Magnesium 200 mg PO DAILY PRN 08/13/19 08/13/19 Previous Rx's Medication Instructions Recorded Atorvastatin [Lipitor] 40 mg PO DAILY 30 Days #30 tab 08/16/19 Diltiazem HCl [Diltiazem 24Hr ER] 180 mg PO QAM 30 Days #30 cap 08/16/19 Fluticasone/Salmeterol 2 puff INHALATION RT-BID 30 Days 08/16/19 [Fluticasone-Salmeterol 113-14] #1 inhalation predniSONE 10 mg PO DIRECTED #30 tab 08/16/19 Allergies Allergy/AdvReac Type Severity Reaction Status Date / Time naproxen [From Naprosyn] Allergy Rash/Hives Verified 08/13/19 08:42 Sulfa (Sulfonamide Allergy diff Verified 08/13/19 08:42 Antibiotics) breath, swelling azithromycin [From Zithromax] AdvReac Unknown Verified 08/13/19 08:42 Review of Systems ROS Statement: Those systems with pertinent positive or pertinent negative responses have been documented in the HPI. ROS Other: All systems not noted in ROS Statement are negative. EKG Findings - EKG Results: EKG: interpreted by MARIUSZ, sinus rhythm (Bradycardia 59. Interval 168 QRS duration 86 QT since QTC 46/401 evidence of acute STEMI with ST elevations in leads II, III, and F aVF reciprocal changes in aVL. Some septal changes of undetermined age) Past Medical History Past Medical History: Atrial Fibrillation, Asthma, COPD, CVA/TIA, Osteoarthritis (OA) Additional Past Medical History / Comment(s): Brain aneurysum that is clipped, home oxygen at 2L/NC ATC, arthritis in several joints, chronic low back pain which involves L leg-numbness/tingling, scoliosis, seasonal allergies. History of Any Multi-Drug Resistant Organisms: None Reported Past Surgical History: Orthopedic Surgery, Tubal Ligation Additional Past Surgical History / Comment(s): Brain aneurysum that is clipped, left shoulder rotator cuff repair, spine lumbar disc 3x Past Anesthesia/Blood Transfusion Reactions: No Reported Reaction Past Psychological History: No Psychological Hx Reported Additional Psychological History / Comment(s): Pt resides with her son. She uses no assistive device. She drives. She has home oxygen at 2L/NC ATC and a nebulizer. Smoking Status: Former smoker Past Alcohol Use History: None Reported Additional Past Alcohol Use History / Comment(s): Pt started smoking in 1975 and has cut down to 2 cigarettes a day. Past Drug Use History: None Reported - Past Family History Father Family Medical History: Coronary Artery Disease (CAD), Diabetes Mellitus Additional Family Medical History / Comment(s): Father had 3 vessel CABG. He at the age of 69 from heart disease. Mother Family Medical History: Myocardial Infarction ([place]) Additional Family Medical History / Comment(s): Mother of a NE at the age of 42 yrs. General Exam - General Exam Comments Initial Comments: This is a well-developed well-nourished awake alert oriented 3 female she does appear to be in distress General appearance: alert, anxious, in distress Head exam: Present: atraumatic, normocephalic, normal inspection Eye exam: Present: normal appearance, PERRL, EOMI. Absent: scleral icterus, conjunctival injection, periorbital swelling ENT exam: Present: normal exam, mucous membranes moist Neck exam: Present: normal inspection, full ROM, other (No stridor JVD or bruits). Absent: tenderness, meningismus, lymphadenopathy Respiratory exam: Present: normal lung sounds bilaterally. Absent: respiratory distress, wheezes, rales, rhonchi, stridor Cardiovascular Exam: Present: regular rate, normal rhythm, normal heart sounds. Absent: systolic murmur, diastolic murmur, rubs, gallop, clicks GI/Abdominal exam: Present: soft, normal bowel sounds. Absent: distended, tenderness, guarding, rebound, rigid Extremities exam: Present: normal inspection, full ROM, normal capillary refill. Absent: tenderness, pedal edema, joint swelling, calf tenderness Back exam: Present: normal inspection Neurological exam: Present: alert, oriented X3, CN II-XII intact Psychiatric exam: Present: normal affect, normal mood Skin exam: Present: warm, dry, intact, normal color, pallor. Absent: rash Course Vital Signs 10/19/19 13:02 Temperature 97.7 F Pulse Rate 57 L Respiratory 18 Rate Blood Pressure 137/82 O2 Sat by Pulse 97 Oximetry - Reevaluation(s) Reevaluation #1: 10/19/19 13:08 I did review the transmitted EKG submitted by EMS there is evidence of ST elevation in leads II, III, and F aVF with reciprocal aVL changes. The [employer] has been notified that a STEMI alert was started I did discuss the case with Dr. Oviedo. Reevaluation #2: 10/19/19 13:09 I did discuss the case also with Dr. Flores who is covering for Dr. Pichardo today. Reevaluation #3: 10/19/19 13:11 Patient is getting some relief with the morphine and was administered. Reevaluation #4: 10/19/19 13:21 I did review the x-ray imaging no evidence of acute findings or is evidence of COPD. Chest Pain MDM - MDM Patient does present with complaints of anterior chest pain is started prior to arrival. Patient will be admitted to the cardiac [employer] a similar was called I did discuss the case with Dr. Oviedo. I did discuss case with Dr. Flores. Critical Care Time Critical Care Time: Yes Critical Care Time: 31 minutes of critical care time which includes initial presentation with history physical lab work and x-rays multiple re-evaluations the patient also with responsive therapy discussion with the cardiac cath team as well as the admitting physician. Review of old charting was available documentation the above Disposition Clinical Impression: ST elevation myocardial infarction (STEMI), AMI inferior wall, History of COPD Disposition: ADMITTED IP TO THIS HOSP Condition: Serious
[2019-10-19 13:17] LABS: Basophils # (A) 0.1 k/uL (0-0.2); Basophils % (A) 1 %; Eosinophils # (A) 0.6 k/uL (0-0.7); Eosinophils % (A) 4 %; HCT 41.5 % (34.0-46.0); HGB 13.2 gm/dL (11.4-16.0); Lymphocytes # (A) 3.2 k/uL (1.0-4.8); Lymphocytes % (A) 24 %; MCH 28.3 pg (25.0-35.0); MCHC 31.7 g/dL (31.0-37.0); MCV 89.1 fL (80.0-100.0); Mean Platelet Volume 7.2; Monocytes # (A) 0.6 k/uL (0-1.0); Monocytes % (A) 5 %; Neutrophils # (A) 8.7 k/uL (1.3-7.7); Neutrophils % (A) 66 %; Platelet Count 334 k/uL (150-450); RBC 4.66 m/uL (3.80-5.40); RDW 14.6 % (11.5-15.5); WBC 13.2 k/uL (3.8-10.6)
[2019-10-19] MEDS ORDERED: fentaNYL (PF) 50 MCG/ML 2 ML AMP ONE (13:23)
[2019-10-19] MEDS ORDERED: VERAPAMIL 2.5 MG/ML 2 ML AMP ONE (13:23)
[2019-10-19] MEDS ORDERED: LIDOCAINE 1% INJ 10MG/ML (20 ML MDV) ONE (13:23)
[2019-10-19] MEDS ORDERED: HEPARIN SODIUM 1,000 UN/ML (10ML VL) ONE (13:23)
[2019-10-19] MEDS ORDERED: IV FLUID CONTINUATION 100 ML IV ONE (13:25)
[2019-10-19 13:27] LABS: ALT 9 U/L (4-34); AST 17 U/L (14-36); African American GFR (CKD) >90 (>60 ml/min/1.73 sqM); Albumin 3.7 g/dL (3.5-5.0); Alkaline Phosphatase 65 U/L (38-126); Anion Gap 5 mmol/L; Blood Urea Nitrogen 20 mg/dL (7-17); Calcium 9.2 mg/dL (8.4-10.2); Carbon Dioxide 30 mmol/L (22-30); Chloride 106 mmol/L (98-107); Creatine Kinase 34 U/L (30-135); Glucose 120 mg/dL (74-99); Magnesium 2.2 mg/dL (1.6-2.3); Non-African American GFR(CKD) 86 (>60 ml/min/1.73 sqM); Potassium 4.4 mmol/L (3.5-5.1); Sodium 141 mmol/L (137-145); Total Bilirubin 0.4 mg/dL (0.2-1.3); Total Protein 6.1 g/dL (6.3-8.2)
--- NOTE | 2019-10-19 13:31 | XR ---
EXAMINATION TYPE: XR chest 1V portable DATE OF EXAM: 10/19/2019 Comparison: 08/13/2019 Clinical History: 64-year-old female with chest pain Findings: Heart upper limits of normal in size. The cephalic arch calcifications. Hazy lung densities related to overlying soft tissue and AP portabl e technique. However, there seems to be some focal opacity within the inferior lingula partially silh ouetting the left heart margin. No pleural effusion. Impression: Some focal opacity in the inferior lingula could represent atelectasis or an early pneumonia. Clinica lly correlate.
[2019-10-19 13:38] LABS: INR 0.9 (<1.2); Prothrombin Time 9.7 sec (9.0-12.0)
[2019-10-19] MEDS ORDERED: LIDOCAINE 1% INJ 10MG/ML (20 ML MDV) SQ ONE ×2 (13:38→13:45)
[2019-10-19] MEDS ORDERED: fentaNYL (PF) 50 MCG/ML 2 ML AMP IVP ONE (13:38)
[2019-10-19] MEDS ORDERED: SODIUM CHLORIDE 0.9% 500 ML 500 ML IV ONE (13:42)
[2019-10-19 13:43] LABS: D-Dimer 1.19 mg/L FEU (<0.60); Partial Thromboplastin Time 19.9 sec (22.0-30.0)
[2019-10-19] MEDS ORDERED: ATORVASTATIN 80 MG TAB PO ONE (13:45)
[2019-10-19] MEDS ORDERED: CLOPIDOGREL 75 MG TAB PO ONE (13:45)
[2019-10-19] MEDS ORDERED: BIVALIRUDIN BOLUS 250 MG/50 ML IV ONE (13:50)
[2019-10-19] MEDS ORDERED: BIVALIRUDIN 250 MG in SODIUM CHLORIDE 0.9% 50 ML IV ONE (13:50)
[2019-10-19] MEDS ORDERED: CLOPIDOGREL 75 MG TAB ONE (13:54)
[2019-10-19] MEDS ORDERED: NITROGLYCERIN 1000MCG/10ML SYRINGE INTRACORON ONE ×2 (14:03→14:31)
[2019-10-19] MEDS ORDERED: IOPAMIDOL-370 125ML BTL INJ ONE (14:08)
--- NOTE | 2019-10-19 14:14 | P.EN ---
i came to see the pt and she is already on label stamper
[2019-10-19] MEDS ORDERED: IOPAMIDOL-370 100ML BTL INJ ONE ×2 (14:22→14:36)
[2019-10-19] MEDS ORDERED: MAG HYDROX/AL HYDROX/SIMETH 30 ML CUP PO PRN (15:01)
[2019-10-19] MEDS ORDERED: ZOLPIDEM 5 MG TAB PO PRN (15:01)
[2019-10-19] MEDS ORDERED: ATROPINE SULFATE 0.1 MG/ML 10ML SYRINGE IV PRN (15:01)
[2019-10-19] MEDS ORDERED: RX INFO: IV CONTRAST WAS GIVEN 1 EACH MISC MISCELLANE PRN (15:01)
[2019-10-19] MEDS ORDERED: NITROGLYCERIN SL TABS 0.4 MG TAB SUBLINGUAL PRN (15:01)
[2019-10-19 15:11] LABS: Glucose,Whole Blood 119 mg/dL (75-99)
[2019-10-19] MEDS ORDERED: SODIUM CHLORIDE 0.9% 1,000 ML IV SCH (15:15)
--- NOTE | 2019-10-19 17:26 | P.HPIM ---
History of Present Illness 62-year-old pleasant female with known history of COPD atrial fibrillation quit smoking in August came in with compensative chest pain nonexertional pressure- like sensation with diaphoresis and shortness of breath. Patient was nauseous as well. Patient is found to have ST elevation in lead in lead II and III with reciprocal changes in aVL and aVL. Patient underwent cardiac catheterization and angioplasty of right coronary artery did not receive any stents. First set of troponin is negative. Patient denied any fever chills. Review of Systems REVIEW OF SYSTEMS: CONSTITUTIONAL: No fever, no malaise, no fatigue. HEENT: No recent visual problems or hearing problems. Denied any sore throat. CARDIOVASCULAR: , no palpitations, no syncope. PULMONARY: no hemoptysis. GASTROINTESTINAL: No diarrhea, no vomiting, no abdominal pain. NEUROLOGICAL: No headaches, no weakness, no numbness. HEMATOLOGICAL: Denies any bleeding or petechiae. GENITOURINARY: Denies any burning micturition, frequency, or urgency. MUSCULOSKELETAL/RHEUMATOLOGICAL: Denies any joint pain, swelling, or any muscle pain. ENDOCRINE: Denies any polyuria or polydipsia. The rest of the 14-point review of systems is negative. Past Medical History Past Medical History: Atrial Fibrillation, Asthma, COPD, CVA/TIA, Myocardial Infarction ([place]), Osteoarthritis (OA) Additional Past Medical History / Comment(s): Brain aneurysum that is clipped, home oxygen at 2L/NC ATC, arthritis in several joints, chronic low back pain which involves L leg-numbness/tingling, scoliosis, seasonal allergies. Last Myocardial Infarction Date:: 10/19/2019 History of Any Multi-Drug Resistant Organisms: None Reported Past Surgical History: Orthopedic Surgery, Tubal Ligation Additional Past Surgical History / Comment(s): Brain aneurysum that is clipped, left shoulder rotator cuff repair, spine lumbar disc 3x Past Anesthesia/Blood Transfusion Reactions: No Reported Reaction Past Psychological History: Anxiety, Depression Additional Psychological History / Comment(s): Pt resides with her son. She uses no assistive device. She drives. She has home oxygen at 2L/NC ATC and a nebulizer. Smoking Status: Former smoker Past Alcohol Use History: None Reported Additional Past Alcohol Use History / Comment(s): Pt started smoking in 1975 and has quit august 2019 Past Drug Use History: None Reported - Past Family History Father Family Medical History: Coronary Artery Disease (CAD), Diabetes Mellitus Additional Family Medical History / Comment(s): Father had 3 vessel CABG. He at the age of 69 from heart disease. Mother Family Medical History: Myocardial Infarction ([place]) Additional Family Medical History / Comment(s): Mother of a [place] at the age o f 42 yrs. Medications and Allergies Home Medications Medication Instructions Recorded Confirmed Type Montelukast [Singulair] 10 mg PO HS 02/15/19 08/13/19 History Ipratropium-Albuterol Nebulize 3 ml INHALATION RT-QID 03/28/19 08/13/19 History [Duoneb 0.5 mg-3 mg/3 ml Soln] Umeclidinium [place] [Incruse 1 puff INHALATION RT-DAILY 03/28/19 08/13/19 History Ellipta] Apixaban [Eliquis] 5 mg PO BID 08/13/19 08/13/19 History Magnesium 200 mg PO DAILY PRN 08/13/19 08/13/19 History Atorvastatin [Lipitor] 40 mg PO DAILY 30 Days #30 tab 08/16/19 Rx Diltiazem HCl [Diltiazem 24Hr ER] 180 mg PO QAM 30 Days #30 cap 08/16/19 Rx Fluticasone/Salmeterol 2 puff INHALATION RT-BID 30 Days 08/16/19 Rx [Fluticasone-Salmeterol 113-14] #1 inhalation predniSONE 10 mg PO DIRECTED #30 tab 08/16/19 Rx Allergies Allergy/AdvReac Type Severity Reaction Status Date / Time naproxen [From Naprosyn] Allergy Rash/Hives Verified 08/13/19 08:42 Sulfa (Sulfonamide Allergy diff Verified 08/13/19 08:42 Antibiotics) breath, swelling azithromycin [From Zithromax] AdvReac Unknown Verified 08/13/19 08:42 Physical Exam Vitals: Vital Signs Temp Pulse Pulse Resp BP BP Pulse Ox 10/19/19 15:20 97.6 F 64 14 130/66 94 L 10/19/19 13:02 97.7 F 57 L 18 137/82 97 Intake and Output 10/19/19 10/19/19 10/19/19 06:59 14:59 22:59 Intake Total 155 Balance 155 Intake: IV 155 Other: Weight 74.843 kg 74.843 kg PHYSICAL EXAMINATION: GENERAL: The patient is alert and oriented x3, not in any acute distress. Well developed, well nourished. HEENT: Pupils are round and equally reacting to light. EOMI. No scleral icterus. No conjunctival pallor. Normocephalic, atraumatic. No pharyngeal erythema. No thyromegaly. CARDIOVASCULAR: S1 and S2 present. No murmurs, rubs, or gallops. PULMONARY: Patient does have expiratory wheezing on exam fairly good air entry into bilateral lung coles. ABDOMEN: Soft, nontender, nondistended, normoactive bowel sounds. No palpable organomegaly. MUSCULOSKELETAL: No joint swelling or deformity. EXTREMITIES: No cyanosis, clubbing, or pedal edema. NEUROLOGICAL: Gross neurological examination did not reveal any focal deficits. SKIN: No rashes. Results CBC & Chem 7: 10/19/19 13:07 10/19/19 13:07 Labs: Abnormal Lab Results - Last 24 Hours (Table) 10/19/19 10/19/19 10/19/19 Range/Units 13:07 13:07 13:07 WBC 13.2 H (3.8-10.6) k/uL Neutrophils # 8.7 H (1.3-7.7) k/uL APTT 19.9 L (22.0-30.0) sec D-Dimer 1.19 H (<0.60) mg/L FEU BUN 20 H (7-17) mg/dL Glucose 120 H (74-99) mg/dL POC Glucose (mg/dL) (75-99) mg/dL Total Protein 6.1 L (6.3-8.2) g/dL 10/19/19 Range/Units 15:00 WBC (3.8-10.6) k/uL Neutrophils # (1.3-7.7) k/uL APTT (22.0-30.0) sec D-Dimer (<0.60) mg/L FEU BUN (7-17) mg/dL Glucose (74-99) mg/dL POC Glucose (mg/dL) 119 H (75-99) mg/dL Total Protein (6.3-8.2) g/dL Thrombosis Risk Factor Assmnt - Choose All That Apply Each Factor Represents 1 point: Acute [place] Each Risk Factor Represents 2 Points: Age 61-74 years Thrombosis Risk Factor Assessment Total Risk Factor Score: 3 Thrombosis Risk Factor Assessment Level: Moderate Risk Assessment and Plan Plan: -Acute ST elevation myocardial infarction which is an inferior wall [place] patient underwent angioplasty without stenting patient on dual antiplatelet therapy lisinopril beta anna and a statin now. -Atrial fibrillation patient is rate controlled patient's heart rate is 57 patient was started on beta anna because of which I'll not start her on Cardizem at this time patient will be resumed on anticoagulation. Patient is sinus rhythm. -COPD with minimal exacerbation or wheezing is expected to improve with the inhaled steroids will not be started on any systemic steroids at this time -Depression
[2019-10-19] MEDS: IPRATROPIUM-ALBUTEROL 3 ML NEB INHALATION SCH (20:49)
[2019-10-19] MEDS: APIXABAN 5 MG TAB PO SCH (22:30)
[2019-10-19] MEDS: MONTELUKAST 10 MG TAB PO SCH (22:30)
[2019-10-19] MEDS: LISINOPRIL 5 MG TAB PO SCH (22:30)
[2019-10-19] MEDS: METOPROLOL TARTRATE 25 MG TAB PO SCH (22:30)
--- NOTE | 2019-10-19 22:32 | CONS ---
CONSULTATION ATTENDING DOCTOR: Dr. Pichardo. Mrs. Bhatt is a 64-year-old female with known history of hypertension, hyperlipidemia, chronic tobacco use, peripheral disease and paroxysmal atrial fibrillation who presented with symptoms of chest discomfort with electrocardiographic changes consistent with an inferior myocardial infarction. The patient had a revascularization of her right lower extremity done by Dr. Zimmerman recently. She has no documented history of obstructive coronary artery disease, but she has paroxysmal atrial fibrillation. She had some chest pain in the past, but much worse today. In view of that, she came into the emergency room. She has chronic dyspnea on exertion. No PND. No orthopnea. No dizziness. No palpitation. No syncope. She has no clear PND or orthopnea. Her coronary risk factors are remarkable for the chronic tobacco use, hypertension, hyperlipidemia. MEDICATION: Her medications at home include Eliquis, Lipitor, Cardizem. REVIEW OF SYSTEMS: RESPIRATORY system: She has chronic obstructive lung disease with episode of cough and wheezing. GI system: No recent GI bleed. No peptic ulcer disease. system: No dysuria or hematuria. Nervous system: No stroke or seizure. PHYSICAL EXAMINATION: She is a 64-year-old female, alert, oriented, appears older than stated age. Evaluated in cardiac catheterization laboratory. Blood pressure 170/70 with a heart rate in the 80s and 90s. HEAD: Normocephalic. Eyes sclerae anicteric. Neck: Good upstroke. No bruit. No jugular venous distention. Lungs with decreased air exchange anteriorly. No wheezes. Heart is regular rate and rhythm. S1, S2. No S3. No rub. ABDOMEN: Soft, nontender. Positive bowel sounds. No organomegaly. EXTREMITIES: No edema with decreased pulses on the right side. EKG sinus mechanism with ST elevation 2, 3 and AVF consistent with inferior myocardial infarction. IMPRESSION: 1. Acute inferior myocardial infarction. 2. Chronic tobacco use. 3. Chronic obstructive lung disease. 4. Peripheral disease. 5. Paroxysmal atrial fibrillation. 6. Hypertension. 7. Hyperlipidemia. RECOMMENDATIONS: I recommend proceeding with coronary angiography to assess her status and guide her treatment. The rationale behind the procedure as well as risks and complication were discussed with the patient who is in full understanding and agreement. Thank you for this consult. We will follow with you. MMODL / IJN: [id number] / MTDCandelario
--- NOTE | 2019-10-19 22:38 | CC ---
CARDIAC CATHETERIZATION REPORT Mrs. Bhatt is a 64-year-old female who presented with an acute episode of chest discomfort and ST elevation inferiorly. In view of that, recommendation made regarding cardiac catheterization. The procedure as well as risks and complications were discussed with the patient who is in full understanding and agreement. DESCRIPTION OF PROCEDURE: Patient was brought to label machine operator after receiving fentanyl and Benadryl and she was draped and prepped in the conventional fashion using Xylocaine anesthesia. Attempts to cannulate the right radial artery were unsuccessful. At that point, using Xylocaine anesthesia and Seldinger technique, a 6-[place] sheath was introduced in the left femoral artery. Selective right and left coronary angiography performed using 6- [place] 4 bend FR guiding catheter and an FL guiding catheter. After obtaining images of the coronaries, angioplasty was performed. Following that a 6-[place] tight pigtail catheter was introduced into the left ventricle and pressures were calculated. Following that, catheter and sheaths were removed. Hemostasis was obtained with deployment of an Angio-Seal. There was no immediate complication. Patient is returned to room in stable condition. FINDINGS: FLUOROSCOPY: There was severe significant calcification involving all the coronary arteries, more in the left, proximal LAD in the left main. SELECTIVE CORONARY ANGIOGRAM: LEFT MAIN: This is a large-sized vessel bifurcating left circumflex, left anterior descending artery. Left main coronary artery has a 10% plaque distally. LEFT ANTERIOR DESCENDING ARTERY: This vessel reaches toward the apex, tapers down in distal third, giving rise to a large diagonal branch. The left and descending artery is calcified proximally and in the mid after the takeoff of the diagonal branch that has a 40% to 50%. plaque. The rest of the vessel has no high-grade stenosis. LEFT CIRCUMFLEX: This is a nondominant vessel giving rise to 3 obtuse marginal branch. Left circumflex has mild intimal disease proximally without any evidence of high-grade stenosis. RIGHT CORONARY ARTERY: This is a large dominant vessel, calcified in the mid segment bifurcating into PDA segment branches. The PDA in the distal segment is totally occluded with no significant antegrade flow. LEFT VENTRICULOGRAM: Left ventriculogram was not performed. HEMODYNAMICS: There was no gradient across the aortic valve. The left ventricle end-diastolic pressure was 20-24 mmHg. CONCLUSION: 1. Acutely occluded distal segment of the right PDA. 2. Calcific coronary arteries. 3. Mild disease in the LAD and left circumflex. RECOMMENDATION: In view of findings and anatomy, I have recommended proceeding with angioplasty and stenting of the right PDA. The procedure as well as risks and complications were discussed with the patient who is in full understanding and agreement. JESENIA / IJN: [id number] /
--- NOTE | 2019-10-19 22:47 | PTCA ---
PERCUTANEOUSTRANS CORORONARY ANGIOGRAPHY Mrs. Bhatt is a 64-year-old female who presented with an acute inferior myocardial infarction, underwent cardiac catheterization was found to have totally occluded right PDA. In view of that, recommendation was made regarding angioplasty and stenting. The procedure as well as risks and complications were discussed with the patient who is in full understanding and agreement. DESCRIPTION OF PROCEDURE: Using the 6-St Helenian FR4 guiding catheter and after cannulating the right coronary ostium a 0.014 balanced medium weight J-wire was advanced across the lesion with the help of a 2.0 x 12 mm Trek balloon was advanced and multiple inflations at 8 atmospheres were done. Following that, the balloon was removed and a 1.5 x 8 mm Mini Trek balloon was advanced and multiple inflations at a maximum of 10 atmospheres were done. After the last inflation, after appropriate wait, the balloon and the guidewire were withdrawn back in the guiding catheter. Images were obtained, repeated. Following that, a a 6- [place] tight pigtail catheter was introduced in the left ventricle and pressures were calculated. Following that, catheter and sheath were removed. Hemostasis was obtained with deployment of an Angio-Seal. There was no immediate complication. Patient is returned to her room in stable condition. Of note, the patient received Angiomax per protocol as well as oral loading dose of clopidogrel. Her chest discomfort has resolved at the end of the procedure. RESULTS: Successful angioplasty of distal segment of the right PDA with reduction of stenosis from 100% to 0%. Beyond that, the vessel is very small and appears to have intracoronary thrombus. RECOMMENDATIONS: Patient will be continued on aspirin, Plavix, beta blockers and statin. The importance of dual antiplatelet treatment and smoking cessation were discussed with the patient and she was full understanding and agreement. Duration of procedure 62 minutes. Door to balloon time: 62 minutes. MMODL / IJN: [id number] /
[2019-10-20 06:21] LABS: African American GFR (CKD) >90 (>60 ml/min/1.73 sqM); Anion Gap 5 mmol/L; Blood Urea Nitrogen 12 mg/dL (7-17); Calcium 9.2 mg/dL (8.4-10.2); Carbon Dioxide 29 mmol/L (22-30); Chloride 101 mmol/L (98-107); Glucose 107 mg/dL (74-99); Non-African American GFR(CKD) >90 (>60 ml/min/1.73 sqM); Potassium 4.3 mmol/L (3.5-5.1); Sodium 135 mmol/L (137-145)
[2019-10-20] MEDS: IPRATROPIUM-ALBUTEROL 3 ML NEB INHALATION SCH ×4 (07:12→20:08)
[2019-10-20] MEDS: FLUTICASONE INHALATION SCH ×4 (08:04→21:35)
[2019-10-20] MEDS: SALMETEROL INHALATION SCH ×4 (08:04→21:35)
[2019-10-20] MEDS: METOPROLOL TARTRATE 25 MG TAB PO SCH ×2 (08:13→20:52)
[2019-10-20] MEDS: CLOPIDOGREL 75 MG TAB PO SCH (08:13)
[2019-10-20] MEDS: APIXABAN 5 MG TAB PO SCH ×2 (08:14→20:52)
[2019-10-20] MEDS: LISINOPRIL 5 MG TAB PO SCH ×2 (08:14→20:52)
[2019-10-20] MEDS: ASPIRIN 81 MG PO SCH (08:14)
--- NOTE | 2019-10-20 09:39 | P.PN ---
Subjective Progress Note Date: 10/20/19 This is a 64-year-old female with history of paroxysmal atrial fibrillation and peripheral vascular disease who was admitted to the hospital with chest pain and evidence of inferior wall [place]. Patient had a cardiac catheterization by Dr. Oviedo and was noted to have total occlusion of a small PDA branch. Patient had angioplasty without any stenting. Her troponin also went up to about 14. Patient is feeling better. No complaints of any chest pain or shortness of breath. She is maintaining sinus rhythm. Lungs appeared to be clear. Heart is regular. Patient will continue on aspirin and relent along with lipid-lowering agents and beta anna. Increase activity. Lab work is reviewed Objective - Vital Signs Vital signs: Vital Signs Temp 98.5 F 10/20/19 08:00 Pulse 68 10/20/19 08:00 Resp 19 10/20/19 08:00 BP 128/82 10/20/19 08:00 Pulse Ox 97 10/20/19 08:00 Intake & Output 10/19/19 10/20/19 10/20/19 18:59 06:59 18:59 Intake Total 740 850 Output Total 500 800 400 Balance 240 50 -400 Weight 74.843 kg 79.3 kg Intake: IV 380 600 Sodium Chloride 0.9% 1, 225 600 000 ml @ 75 mls/hr IV . [id number] [facility] Rx#:[id number] Oral 360 250 Output: Urine 500 800 400 Other: # Voids 1 - Exam GENERAL EXAM: Patient is alert and oriented and doesn't appear to be in any acute distress HEENT: Normocephalic. Normal reaction of pupils, equal size, normal range of extraocular motion. No erythema or exudates in the throat. NECK: No masses, no nuchal rigidity. CHEST: No chest wall deformity. LUNGS: Few rhonchi and rales HEART: S1 and S2 normal with no audible mumurs or gallops. Regular rhythm, femorals equal on both sides.. ABDOMEN: No hepatosplenomegaly, normal bowel sounds, no guarding or rigidity. SKIN: No rashes CENTRAL NERVOUS SYSTEM: No focal deficits. EXTREMITIES: No cyanosis, clubbing or edema. - Labs CBC & Chem 7: 10/19/19 13:07 10/20/19 04:59 Labs: Abnormal Lab Results - Last 24 Hours (Table) 10/19/19 10/19/1910/19/19 Range/Units 13:07 13:07 13:07 WBC 13.2 H (3.8-10.6) k/uL Neutrophils # 8.7 H (1.3-7.7) k/uL APTT 19.9 L (22.0-30.0) sec D-Dimer 1.19 H (<0.60) mg/L FEU Sodium (137-145) mmol/L BUN 20 H (7-17) mg/dL Glucose 120 H (74-99) mg/dL POC Glucose (mg/dL) (75-99) mg/dL Troponin I (0.000-0.034) ng/mL Total Protein 6.1 L (6.3-8.2) g/dL 10/19/19 10/19/19 10/20/19 Range/Units 15:00 19:17 00:45 WBC (3.8-10.6) k/uL Neutrophils # (1.3-7.7) k/uL APTT (22.0-30.0) sec D-Dimer (<0.60) mg/L FEU Sodium (137-145) mmol/L BUN (7-17) mg/dL Glucose (74-99) mg/dL POC Glucose (mg/dL) 119 H (75-99) mg/dL Troponin I 8.830 H* 18.200 H* (0.000-0.034) ng/mL Total Protein (6.3-8.2) g/dL 10/20/19 Range/Units 04:59 WBC (3.8-10.6) k/uL Neutrophils # (1.3-7.7) k/uL APTT (22.0-30.0) sec D-Dimer (<0.60) mg/L FEU Sodium 135 L (137-145) mmol/L BUN (7-17) mg/dL Glucose 107 H (74-99) mg/dL POC Glucose (mg/dL) (75-99) mg/dL Troponin I (0.000-0.034) ng/mL Total Protein (6.3-8.2) g/dL Assessment and Plan (1) AMI inferior wall Current Visit: Yes Status: Acute Code(s): I21.19 - STEMI INVOLVING OTH CORONARY ARTERY OF INFERIOR WALL SNOMED Code(s): 85615585 (2) History of COPD Current Visit: Yes Status: Acute Code(s): Z87.09 - PERSONAL HISTORY OF OTHER DISEASES OF THE RESPIRATORY SYSTEM SNOMED Code(s): 546328880 (3) Paroxysmal atrial fibrillation Current Visit: Yes Status: Acute Code(s): I48.0 - PAROXYSMAL ATRIAL FIBRILLATION SNOMED Code(s): 594379639 (4) Peripheral vascular disease Current Visit: Yes Status: Acute Code(s): I73.9 - PERIPHERAL VASCULAR DISEASE, UNSPECIFIED SNOMED Code(s): 404229770 Plan: Continue current medical therapy. Increase activity as tolerated. Ec hocardiogram.
--- NOTE | 2019-10-20 11:33 | ECHOF ---
Referral Reason:mi MEASUREMENTS -------- HEIGHT: 170.2 cm WEIGHT: 78.9 kg BP: 146/61 RVIDd: 3.4 cm (< 3.3) IVSd: 1.1 cm (0.6 - 1.1) LVIDd: 3.7 cm (3.9 - 5.3) LVPWd: 1.2 cm (0.6 - 1.1) IVSs: 1.6 cm LVIDs: 2.4 cm LVPWs: 1.4 cm LA Diam: 3.4 cm (2.7 - 3.8) LAESV Index (A-L): 22.25 ml/m Ao Diam: 3.1 cm (2.0 - 3.7) AV Cusp: 1.4 cm (1.5 - 2.6) MV EXCURSION: 14.577 mm (> 18.000) MV EF SLOPE: 98 mm/s (70 - 150) EPSS: 0.3 cm MV E Gibran: 0.60 m/s MV DecT: 222 ms MV A Gibran: 0.98 m/s MV E/A Ratio: 0.61 RAP: 5.00 mmHg RVSP: 19.22 mmHg FINDINGS -------- Sinus rhythm. This was a technically adequate study. The left ventricular size is normal. Left ventricular wall thickness is normal. Overall left vent ricular systolic function is normal with, an EF between 55 - 60 %. Basal inferior LV wall motion is hypokinetic. The right ventricle is normal in size. Normal LA size by volume 22+/-6 ml/m2. The right atrial size is normal. There is mild aortic valve sclerosis. There is no evidence of aortic regurgitation. Mild mitral annular calcification present. Mild mitral regurgitation is present. Mild tricuspid regurgitation present. Right ventricular systolic pressure is normal at < 35 mmHg. There is no evidence of pulmonary hypertension. There is no pulmonic regurgitation present. The aortic root size is normal. There is no pericardial effusion. CONCLUSIONS -------- 1. Sinus rhythm. 2. This was a technically adequate study. 3. The left ventricular size is normal. 4. Left ventricular wall thickness is normal. 5. Overall left ventricular systolic function is normal with, an EF between 55 - 60 %. 6. Basal inferior LV wall motion is hypokinetic. 7. Normal LA size by volume 22+/-6 ml/m2. 8. There is mild aortic valve sclerosis. 9. Mild mitral annular calcification present. 10. Mild mitral regurgitation is present. 11. Mild tricuspid regurgitation present. 12. Right ventricular systolic pressure is normal at < 35 mmHg. 13. There is no pulmonic regurgitation present. 14. The aortic root size is normal. 15. There is no pericardial effusion. HOTEL OFFICE MANAGER: Taina Siegel RDCS
[2019-10-20 11:52] VITALS: BMI 27.3
--- NOTE | 2019-10-20 12:58 | CDI ---
Documentation Clarification Form Date: 10/20/2019 12:45:05 PM From: Rosalie Stevens RN, CCDS Admit Date: 10/19/2019 01:07:00 PM Patient Name: Cholo Bhatt Visit Number: [id number] Discharge Date: ATTENTION: The Clinical Documentation Specialists (CDI) and [facility] Coding Staff appreciate your assistance in clarifying documentation. Please respond to the clarification below the line at the bottom and electronically sign. The CDI & [facility] Coding staff will review the response and follow-up if needed. Please note: Queries are made part of the Legal Health Record. If you have any questions, please contact the author of this message via ITS. Dr. Tram Mccarty The patient presented with chest pain nonexertional pressure-like with diaphoresis and shortness of breath. History/Risk Factors: COPD, Atrial Fibrillation, Former smoker Home oxygen: 2/L NC (ATC) Clinical Indicators: 64 year old female who has a past medical history of home oxygen use at 2L/NC ATC. She was ruled in for acute ST elevation myocardial infarction, inferior wall. On exam in the emergency department she was complaining of some shortness of breath, with lungs sound normal bilaterally. Vital signs on admission: 137/82 57 18 97 % 2/L NC, Treatment: Breathing tx: Duoneb's per orders Monitor O2 Sat's (titrate) Singulair PO In your professional opinion, can you please clarify if these findings signify one of the following conditions? Chronic hypoxic Respiratory Failure Other Diagnosis, please specify Unable to determine (Last Query Form Revision: June 2019) No respiratory failure MTDD
--- NOTE | 2019-10-20 15:01 | P.PN ---
Subjective 64-year-old female admitted with the estrogen elevation microinfarction underwent a angina past he without any stenting. Patient had total occlusion of small PDA. Constitutional: Denied any fatigue denied any fever. Cardio vascular: denied any chest pain, palpitations Gastrointestinal denied any nausea vomiting Pulmonary: Denied any shortness of breath cough Neurologic denied any new focal deficits All inpatient medications were reviewed and appropriate changes in these medications as dictated in the interval history and assessment and plan. Objective - Vital Signs Vital signs: Vital Signs Temp 99.5 F 10/20/19 12:00 Pulse 70 10/20/19 14:00 Resp 20 10/20/19 14:00 BP 120/53 10/20/19 14:00 Pulse Ox 98 10/20/19 14:00 Intake & Output 10/19/19 10/20/19 10/20/19 18:59 06:59 18:59 Intake Total 740 850 Output Total 669 270 1172 Balance 240 50 -1500 Weight 74.843 kg 79.3 kg 79.3 kg Intake: IV 380 600 Sodium Chloride 0.9% 1, 225 600 000 ml @ 75 mls/hr IV . [id number] [facility] Rx#:[id number] Oral 360 250 Output: Urine 460 699 8203 Other: # Voids 1 - Exam PHYSICAL EXAMINATION: GENERAL: The patient is alert and oriented x3, not in any acute distress. Well developed, well nourished. HEENT: Pupils are round and equally reacting to light. EOMI. No scleral icterus. No conjunctival pallor. Normocephalic, atraumatic. No pharyngeal erythema. No thyromegaly. CARDIOVASCULAR: S1 and S2 present. No murmurs, rubs, or gallops. PULMONARY: Chest is clear to auscultation, no wheezing or crackles. ABDOMEN: Soft, nontender, nondistended, normoactive bowel sounds. No palpable organomegaly. MUSCULOSKELETAL: No joint swelling or deformity. EXTREMITIES: No cyanosis, clubbing, or pedal edema. NEUROLOGICAL: Gross neurological examination did not reveal any focal deficits. SKIN: No rashes. - Labs CBC & Chem 7: 10/19/19 13:07 10/20/19 04:59 Labs: Abnormal Lab Results - Last 24 Hours (Table) 10/19/19 10/19/19 10/20/19 Range/Units 15:00 19:17 00:45 Sodium (137-145) mmol/L Glucose (74-99) mg/dL POC Glucose (mg/dL) 119 H (75-99) mg/dL Troponin I 8.830 H* 18.200 H* (0.000-0.034) ng/mL 10/20/19 Range/Units 04:59 Sodium 135 L (137-145) mmol/L Glucose 107 H (74-99) mg/dL POC Glucose (mg/dL) (75-99) mg/dL Troponin I (0.000-0.034) ng/mL Assessment and Plan Plan: -Acute ST elevation myocardial infarction which is an inferior wall [place] patient underwent angioplasty without stenting patient on dual antiplatelet therapy lisinopril beta anna and a statin now. -Atrial fibrillation patient is rate controlled, continue on beta anna,anticoagulation. Patient is sinus rhythm. -COPD with acute exacerbation patient was started on oral steroids and continue with inhalational treatments -Depression
[2019-10-20] MEDS: predniSONE 20 MG TAB PO SCH (15:03)
[2019-10-20] MEDS ORDERED: DEXTROSE 5% IN WATER 100 ML with AMIODARONE 150 MG IV ONE (18:55)
[2019-10-20] MEDS ORDERED: AMIODARONE 360 MG in DEXTROSE 5% IN WATER 200 ML IV ONE ×2 (19:10)
[2019-10-20] MEDS ORDERED: SYMBICORT 160-4.5 MCG INHALER INHALATION SCH (20:00)
[2019-10-20] MEDS: MONTELUKAST 10 MG TAB PO SCH (20:52)
[2019-10-20] MEDS ORDERED: ATORVASTATIN 80 MG TAB PO SCH (21:00)
[2019-10-21 00:23] LABS: Glucose,Whole Blood 129 mg/dL (75-99)
[2019-10-21] MEDS: AMIODARONE 300 MG in DEXTROSE 5% IN WATER 250 ML IV SCH ×4 (01:27→12:38)
[2019-10-21 05:39] LABS: Basophils % (A) 0 %; Eosinophils # (A) 0.2 k/uL (0-0.7); Eosinophils % (A) 2 %; HCT 38.5 % (34.0-46.0); HGB 12.3 gm/dL (11.4-16.0); Lymphocytes # (A) 1.4 k/uL (1.0-4.8); Lymphocytes % (A) 16 %; MCH 28.2 pg (25.0-35.0); MCV 88.1 fL (80.0-100.0); Mean Platelet Volume 7.1; Monocytes # (A) 0.5 k/uL (0-1.0); Monocytes % (A) 6 %; Neutrophils # (A) 6.5 k/uL (1.3-7.7); Neutrophils % (A) 74 %; Platelet Count 246 k/uL (150-450); RBC 4.37 m/uL (3.80-5.40); RDW 14.2 % (11.5-15.5); WBC 8.8 k/uL (3.8-10.6)
[2019-10-21 05:55] LABS: African American GFR (CKD) >90 (>60 ml/min/1.73 sqM); Anion Gap 4 mmol/L; Blood Urea Nitrogen 14 mg/dL (7-17); Calcium 9.4 mg/dL (8.4-10.2); Carbon Dioxide 28 mmol/L (22-30); Chloride 104 mmol/L (98-107); Glucose 104 mg/dL (74-99); Non-African American GFR(CKD) >90 (>60 ml/min/1.73 sqM); Potassium 4.2 mmol/L (3.5-5.1); Sodium 136 mmol/L (137-145)
[2019-10-21 06:04] LABS: Glucose,Whole Blood 93 mg/dL (75-99)
[2019-10-21] MEDS: IPRATROPIUM-ALBUTEROL 3 ML NEB INHALATION SCH ×4 (08:19→20:31)
[2019-10-21] MEDS: FLUTICASONE INHALATION SCH (08:23)
[2019-10-21] MEDS: SALMETEROL INHALATION SCH (08:23)
[2019-10-21] MEDS: CLOPIDOGREL 75 MG TAB PO SCH (08:26)
[2019-10-21] MEDS: LISINOPRIL 5 MG TAB PO SCH (08:26)
[2019-10-21] MEDS: ASPIRIN 81 MG PO SCH (08:26)
[2019-10-21] MEDS: METOPROLOL TARTRATE 25 MG TAB PO SCH (08:26)
[2019-10-21] MEDS: predniSONE 20 MG TAB PO SCH (08:26)
[2019-10-21] MEDS: APIXABAN 5 MG TAB PO SCH (08:26)
[2019-10-21] MEDS ORDERED: FAMOTIDINE 20 MG TAB PO SCH (09:00)
--- NOTE | 2019-10-21 09:56 | P.PN ---
Subjective Progress Note Date: 10/21/19 This is a 64-year-old female with history of paroxysmal atrial fibrillation and peripheral vascular disease who was admitted to the hospital with chest pain and evidence of inferior wall [place]. Patient had a cardiac catheterization by Dr. Oviedo and was noted to have total occlusion of a small PDA branch. Patient had angioplasty without any stenting. Her troponin also went up to about 14. Patient is feeling better. No complaints of any chest pain or shortness of breath. She is maintaining sinus rhythm. Lungs appeared to be clear. Heart is regular. Patient will continue on aspirin and relent along with lipid-lowering agents and beta anna. Increase activity. Lab work is reviewed. 10/21/2019. This patient was admitted with inferior wall SD. She has history of paroxysmal atrial fibrillation but maintaining sinus rhythm. She had an angioplasty of the small distal PDA branch. Patient has been stable since the procedure. Maintaining sinus rhythm. No complaints of any chest pain or shortness of breath. Tolerating activity. No arrhythmias noted. From cardiac standpoint, patient could be discharged home on current medical therapy. Follow-up with Dr. Oviedo . Objective - Vital Signs Vital signs: Vital Signs Temp 97.9 F 10/21/19 04:00 Pulse 88 10/21/19 08:29 Resp 20 10/21/19 05:00 BP 108/49 10/21/19 05:00 Pulse Ox 97 10/21/19 05:00 Intake & Output 10/20/19 10/21/19 10/21/19 18:59 06:59 18:59 Intake Total 180 330 Output Total 1700 1125 Balance -1700 -945 330 Weight 79.3 kg 78 kg Intake: IV 180 80 0.9 180 80 Oral 250 Output: Urine 1700 1125 Other: # Voids 1 0 2 - Exam GENERAL EXAM: Patient is alert and oriented and doesn't appear to be in any acute distress HEENT: Normocephalic. Normal reaction of pupils, equal size, normal range of extraocular motion. No erythema or exudates in the throat. NECK: No masses, no nuchal rigidity. CHEST: No chest wall deformity. LUNGS: Few rhonchi and rales HEART: S1 and S2 normal with no audible mumurs or gallops. Regular rhythm, femorals equal on both sides.. ABDOMEN: No hepatosplenomegaly, normal bowel sounds, no guarding or rigidity. SKIN: No rashes CENTRAL NERVOUS SYSTEM: No focal deficits. EXTREMITIES: No cyanosis, clubbing or edema. - Labs CBC & Chem 7: 10/21/19 05:07 10/21/19 05:07 Labs: Abnormal Lab Results - Last 24 Hours (Table) 10/21/19 10/21/19 Range/Units 00:02 05:07 Sodium 136 L (137-145) mmol/L Glucose 104 H (74-99) mg/dL POC Glucose (mg/dL) 129 H (75-99) mg/dL Assessment and Plan (1) AMI inferior wall Current Visit: Yes Status: Acute Code(s): I21.19 - STEMI INVOLVING OTH CORONARY ARTERY OF INFERIOR WALL SNOMED Code(s): 22972974 (2) History of COPD Current Visit: Yes Status: Acute Code(s): Z87.09 - PERSONAL HISTORY OF OTHER DISEASES OF THE RESPIRATORY SYSTEM SNOMED Code(s): 911174977 (3) Paroxysmal atrial fibrillation Current Visit: Yes Status: Acute Code(s): I48.0 - PAROXYSMAL ATRIAL FIBRILLATION SNOMED Code(s): 815761258 (4) Peripheral vascular disease Current Visit: Yes Status: Acute Code(s): I73.9 - PERIPHERAL VASCULAR DISEASE, UNSPECIFIED SNOMED Code(s): 438924368 Plan: Patient is clinically stable and tolerating activity. No arrhythmias. Echo showed fairly preserved LV function with mild hypokinesis of the inferior wall. Patient could be discharged home
--- NOTE | 2019-10-21 16:50 | P.DS ---
Providers Date of admission: 10/19/19 13:07 Attending physician: Jose Flores MD Consults: 10/19/19 15:01 Consult Physician Routine Consulting Provider: [facility] Consult Reason/Comments: Post Interventional patient Do you want consulting provider notified?: Already Contacted Primary care physician: Marino David [facility] Course: 64-year-old female admitted with the estrogen elevation microinfarction underwent a angina past he without any stenting. Patient had total occlusion of small PDA. 10/21/2019 Patient's wheezing completely resolved patient will be discharged on short cou rse of steroids patient doesn't have any chest pain patient is not in A. fib rate controlled patient will be discharged on amiodarone 200 twice a day along with dual antiplatelets metoprolol Cardizem will be discontinued patient blood pressure is low normal because of which I'm cutting down the JAYLAN inhibitor to 5 mg daily. PHYSICAL EXAMINATION: GENERAL: The patient is alert and oriented x3, not in any acute distress. Well developed, well nourished. HEENT: Pupils are round and equally reacting to light. EOMI. No scleral icterus. No conjunctival pallor. Normocephalic, atraumatic. No pharyngeal erythema. No thyromegaly. CARDIOVASCULAR: S1 and S2 present. No murmurs, rubs, or gallops. PULMONARY: Chest is clear to auscultation, no wheezing or crackles. ABDOMEN: Soft, nontender, nondistended, normoactive bowel sounds. No palpable organomegaly. MUSCULOSKELETAL: No joint swelling or deformity. EXTREMITIES: No cyanosis, clubbing, or pedal edema. NEUROLOGICAL: Gross neurological examination did not reveal any focal deficits. SKIN: No rashes. -ST elevation microinfarction -COPD exacerbation The rest of the medical problems please refer to my progress note from as today. Patient Condition at Discharge: Serious Plan - Discharge Summary Discharge Rx Participant: No New Discharge Prescriptions: New Fluticasone/Salmeterol [Advair 250-50 Diskus] 1 inhalation PO BID #1 inhaler predniSONE 10 mg PO DAILY #30 tab Aspirin 81 mg PO DAILY #30 chew Atorvastatin [Lipitor] 80 mg PO HS #30 tab Metoprolol Tartrate [Lopressor] 25 mg PO BID #60 tab Clopidogrel [Plavix] 75 mg PO DAILY #60 tab Lisinopril [Zestril] 5 mg PO HS #30 tab Ranitidine HCl [Zantac] 75 mg PO BID #10 tab Amiodarone [Cordarone] 200 mg PO BID #30 tab Continue Montelukast [Singulair] 10 mg PO HS Ipratropium-Albuterol Nebulize [Duoneb 0.5 mg-3 mg/3 ml Soln] 3 ml INHALATION RT-QID Umeclidinium Conrad [Incruse Ellipta] 1 puff INHALATION RT-DAILY Apixaban [Eliquis] 5 mg PO BID tiZANidine [Zanaflex] 4 mg PO HS PRN PRN Reason: Pain Discontinued Diltiazem HCl [Diltiazem 24Hr ER] 180 mg PO QAM 30 Days #30 cap Fluticasone Propion/Salmeterol [Fluticasone-Salmeterol 500-50] Discharge Medication List Montelukast [Singulair] 10 mg PO HS 02/15/19 [History] Ipratropium-Albuterol Nebulize [Duoneb 0.5 mg-3 mg/3 ml Soln] 3 ml INHALATION RT-QID 03/28/19 [History] Umeclidinium Conrad [Incruse Ellipta] 1 puff INHALATION RT-DAILY 03/28/19 [History] Apixaban [Eliquis] 5 mg PO BID 08/13/19 [History] tiZANidine [Zanaflex] 4 mg PO HS PRN 10/19/19 [History] Amiodarone [Cordarone] 200 mg PO BID #30 tab 10/21/19 [Rx] Aspirin 81 mg PO DAILY #30 chew 10/21/19 [Rx] Atorvastatin [Lipitor] 80 mg PO HS #30 tab 10/21/19 [Rx] Clopidogrel [Plavix] 75 mg PO DAILY #60 tab 10/21/19 [Rx] Fluticasone/Salmeterol [Advair 250-50 Diskus] 1 inhalation PO BID #1 inhaler 10/21/19 [Rx] Lisinopril [Zestril] 5 mg PO HS #30 tab 10/21/19 [Rx] Metoprolol Tartrate [Lopressor] 25 mg PO BID #60 tab 10/21/19 [Rx] Ranitidine HCl [Zantac] 75 mg PO BID #10 tab 10/21/19 [Rx] predniSONE 10 mg PO DAILY #30 tab 10/21/19 [Rx] Follow up Appointment(s)/Referral(s): Frankie Pichardo MD [Primary Care Provider] - 3 Days Patient Instructions/Handouts: Heart Attack (DC), COPD (Chronic Obstructive Pulmonary Disease) (DC)
[2019-10-21] MEDS ORDERED: AMIODARONE 200 MG TAB PO STA (17:30)
[2019-10-21 20:05] VITALS: BP 98/56; PULSE 66; RESP 18; TEMP 98
== END 2019-10-22 00:07 | disposition home or self-care (01) | DRG 251 ==
LOC: EC 12:57 → 2SICU 13:07 → EDLOC 13:07 → 2SICU 15:18
PROVIDERS: ADMIT Internal Medicine; ATTEND Internal Medicine
PROC: B2111ZZ Fluoroscopy of Multiple Coronary Arteries using Low Osmolar Contrast (ICD-10-PCS; 2019-10-19)
PROC: 02703ZZ Dilation of Coronary Artery, One Artery, Percutaneous Approach (ICD-10-PCS; principal; 2019-10-19 13:18)
PROC: 4A023N7 Measurement of Cardiac Sampling and Pressure, Left Heart, Percutaneous Approach (ICD-10-PCS; 2019-10-19 13:18)
DX: I21.19 ST elevation (STEMI) myocardial infarction involving other coronary artery of inferior wall (principal); J44.1 Chronic obstructive pulmonary disease with (acute) exacerbation; I73.9 Peripheral vascular disease, unspecified; E78.5 Hyperlipidemia, unspecified; F32.9 Major depressive disorder, single episode, unspecified; F41.9 Anxiety disorder, unspecified; I10 Essential (primary) hypertension; I48.0 Paroxysmal atrial fibrillation; F17.210 Nicotine dependence, cigarettes, uncomplicated; M41.9 Scoliosis, unspecified; G89.29 Other chronic pain; M54.5 Low back pain; I25.10 Atherosclerotic heart disease of native coronary artery without angina pectoris; M15.9 Polyosteoarthritis, unspecified; Z79.01 Long term (current) use of anticoagulants; Z79.899 Other long term (current) drug therapy; Z86.73 Personal history of transient ischemic attack (TIA), and cerebral infarction without residual deficits; Z99.81 Dependence on supplemental oxygen; Z88.6 Allergy status to analgesic agent; Z88.1 Allergy status to other antibiotic agents; Z88.2 Allergy status to sulfonamides; Z98.51 Tubal ligation status; Z82.49 Family history of ischemic heart disease and other diseases of the circulatory system; Z83.3 Family history of diabetes mellitus
CPT/HCPCS: 36415; 71045; 80048; 80053; 82550; 83735; 84484; 85025; 85347; 85379; 85610; 85730; 92920; 93005; 93306; 93458; 94640; 96374; 96375; 99291

== ENCOUNTER 2020-06-05 10:11 | Inpatient (IN) | payer OTHER ==
[2020-06-05] MEDS ORDERED: IPRATROPIUM-ALBUTEROL 3 ML NEB INHALATION STA (10:25)
[2020-06-05] MEDS ORDERED: methylPREDNISolone SOD SUCCI 125 MG/2 ML VIAL IV STA (10:26)
--- NOTE | 2020-06-05 10:44 | ED ---
General Adult HPI - General Source: EMS, RN notes reviewed Mode of arrival: EMS Limitations: no limitations <Shakeel Zuniga - Last Filed: 06/05/20 11:55> <Adrianne Soni - Last Filed: 06/07/20 01:31> - General Chief complaint: Shortness of Breath Stated complaint: SOB Time Seen by Provider: 06/05/20 10:20 - History of Present Illness Initial comments: 64-year-old female with a past medical history of atrial fibrillation, asthma, COPD, [place] presents to the emergency department for a chief complaint of shortness of breath. Patient reports that this morning she woke up and went to walk to the bathroom. She reports her oxygen was down to 83. Patient reports that it is normaly around 89 when she is walking. Patient is supposed to be on 2 L of home oxygen but states that since she has moved to this area she has trouble sitting it up so has not had home oxygen. Patient states she has been out of all her medications for at least 5 days. States she called the physician office and was told she needed to be seen before she had a refill. Patient does report that she has increased productive cough. Feels like this is a COPD exacerbation. Denies fevers or chills. Patient has no other complaints at this time including chest pain, abdominal pain, nausea or vomiting, headache, or visual changes. (Shakeel Zuniga) - Related Data Home Medications Medication Instructions Recorded Confirmed Montelukast [Singulair] 10 mg PO HS 02/15/19 06/05/20 Ipratropium-Albuterol Nebulize 3 ml INHALATION RT-QID 03/28/19 06/05/20 [Duoneb 0.5 mg-3 mg/3 ml Soln] Umeclidinium [place] [Incruse 1 puff INHALATION RT-DAILY 03/28/19 06/05/20 Ellipta] Apixaban [Eliquis] 5 mg PO BID 08/13/19 06/05/20 tiZANidine [Zanaflex] 4 mg PO HS PRN 10/19/19 06/05/20 Fluticasone/Salmeterol 2 puff INHALATION RT-BID 06/05/20 06/05/20 [Fluticasone-Salmeterol 113-14] Previous Rx's Medication Instructions Recorded Amiodarone [Cordarone] 200 mg PO BID #30 tab 10/21/19 Aspirin 81 mg PO DAILY #30 chew 10/21/19 Allergies Allergy/AdvReac Type Severity Reaction Status Date / Time naproxen [From Naprosyn] Allergy Anaphylaxis Verified 06/05/20 11:29 Sulfa (Sulfonamide Allergy Anaphylaxis Verified 06/05/20 11:29 Antibiotics) azithromycin [From Zithromax] AdvReac does not Verified 06/05/20 11:29 take due to A-Fib Review of Systems ROS Other: All systems not noted in ROS Statement are negative. <Shakeel Zuniga P - Last Filed: 06/05/20 11:55> ROS Other: All systems not noted in ROS Statement are negative. <Adrianne Soni - Last Filed: 06/07/20 01:31> ROS Statement: Those systems with pertinent positive or pertinent negative responses have been documented in the HPI. 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 He at the age of 69 from heart disease. Mother Family Medical History: Myocardial Infarction ([place]) Additional Family Medical History / Comment(s): Mother of a [place] at the age of 42 yrs. <Shakeel Zuniga P - Last Filed: 06/05/20 11:55> General Exam Limitations: no limitations General appearance: alert, in no apparent distress Head exam: Present: atraumatic, normocephalic, normal inspection Eye exam: Present: normal appearance, PERRL, EOMI. Absent: scleral icterus, conjunctival injection, periorbital swelling ENT exam: Present: normal exam, mucous membranes moist Neck exam: Present: normal inspection, full ROM. Absent: tenderness, meningismus, lymphadenopathy Respiratory exam: Present: wheezes (wheezing noted throughout lateral lung coles). Absent: respiratory distress, rales, rhonchi, stridor Cardiovascular Exam: Present: regular rate, normal rhythm, normal heart sounds. Absent: systolic murmur, diastolic murmur, rubs, gallop, clicks GI/Abdominal exam: Present: soft, normal bowel sounds. Absent: distended, tenderness, guarding, rebound, rigid Neurological exam: Present: alert <Shakeel Zuniga P - Last Filed: 06/05/20 11:55> Course Vital Signs 06/05/20 06/05/20 06/05/20 10:13 10:32 10:45 Temperature 99.5 F Pulse Rate 85 82 90 Pulse Rate [ Pulse Oximetery ] Respiratory 24 Rate Blood Pressure 193/104 193/104 Blood Pressure [Left Arm] O2 Sat by Pulse 94 L 97 Oximetry 06/05/20 06/05/20 06/05/20 10:49 10:57 11:00 Temperature Pulse Rate 92 84 84 Pulse Rate [ Pulse Oximetery ] Respiratory 20 Rate Blood Pressure 139/62 139/62 Blood Pressure [Left Arm] O2 Sat by Pulse 96 96 Oximetry 06/05/20 06/05/20 06/05/20 11:30 12:00 12:22 Temperature 98.3 F Pulse Rate 80 80 Pulse Rate [ 79 Pulse Oximetery ] Respiratory 16 Rate Blood Pressure 127/92 135/66 Blood Pressure 148/68 [Left Arm] O2 Sat by Pulse 93 L 93 L 92 L Oximetry 06/05/20 06/05/20 06/05/20 12:30 13:00 13:02 Temperature Pulse Rate 78 80 79 Pulse Rate [ Pulse Oximetery ] Respiratory 18 Rate Blood Pressure 142/51 145/63 Blood Pressure [Left Arm] O2 Sat by Pulse 93 L 91 L 93 L Oximetry 06/05/20 13:14 Temperature Pulse Rate 82 Pulse Rate [ Pulse Oximetery ] Respiratory Rate Blood Pressure Blood Pressure [Left Arm] O2 Sat by Pulse Oximetry EKG Findings - EKG Comments: EKG Findings:: normal sinus rhythm, ventricular rate 82, DC interval 194, QTC 493. This was compared to patient's previous EKG from 10/20/2019 which appears similar. It was also compared to patient's STEMI EKG from September 2019, does not appear similar to this. <Shakeel Zuniga - Last Filed: 06/05/20 11:55> Medical Decision Making - Lab Data Result diagrams: 06/05/20 10:34 06/05/20 10:34 <Shakeel Zuniga - Last Filed: 06/05/20 11:55> - Lab Data Result diagrams: 06/05/20 10:34 06/05/20 10:34 <Adrianne Soni - Last Filed: 06/07/20 01:31> - Medical Decision Making Patient initially presents 94% on 2 L. Patient has supraclavicular retractions with significant wheezing. Patient was given albuterol treatment by EMS. CBC CMP unremarkable. Troponin negative. EKG was reviewed and shows a normal sinus rhythm. This was compared to previous EKG from 10/20/2019 and appears similar. Patient was given 2 additional breathing treatments here in the emergency room and received IV site Medrol. She continued to be very short of breath desaturating at rest without oxygen. Patient does not have oxygen at home. Patient will be admitted for further management. 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 (Shakeel Zuniga) I was available for consultation in the emergency department. The history and physical exam were done by the midlevel provider. I was consulted for this patie nts care. I reviewed the case with the midlevel provider and based on their presentation of the patient, I agree with the assessment, medical decision making and plan of care as documented. Chart was dictated using [employer]ak[employer] dictation software. Attempts were made to correct any dictation errors however some typographical errors may persist. Patient was seen during a national state of emergency due to the Covid-19 pandemic. (Adrianne Soni) - Lab Data Lab Results 06/05/20 06/05/20 06/05/20 Range/Units 10:34 10:34 10:34 WBC 8.2 (3.8-10.6) k/uL RBC 5.31 (3.80-5.40) m/uL Hgb 13.5 (11.4-16.0) gm/dL Hct 43.8 (34.0-46.0) % MCV 82.4 (80.0-100.0) fL MCH 25.3 (25.0-35.0) pg MCHC 30.7 L (31.0-37.0) g/dL RDW 16.7 H (11.5-15.5) % Plt Count 303 (150-450) k/uL Neutrophils % 67 % Lymphocytes % 14 % Monocytes % 5 % Eosinophils % 12 % Basophils % 1 % Neutrophils # 5.5 (1.3-7.7) k/uL Lymphocytes # 1.1 (1.0-4.8) k/uL Monocytes # 0.4 (0-1.0) k/uL Eosinophils # 1.0 H (0-0.7) k/uL Basophils # 0.1 (0-0.2) k/uL Hypochromasia Slight Anisocytosis Slight PT 9.8 (9.0-12.0) sec INR 0.9 (<1.2) APTT 23.8 (22.0-30.0) sec Sodium 138 (137-145) mmol/L Potassium 4.8 (3.5-5.1) mmol/L Chloride 106 (98-107) mmol/L Carbon Dioxide 26 (22-30) mmol/L Anion Gap 6 mmol/L BUN 18 H (7-17) mg/dL Creatinine 0.99 (0.52-1.04) mg/dL Est GFR (CKD-EPI)AfAm 71 (>60 ml/min/1.73 sqM) Est GFR (CKD-EPI)NonAf 61 (>60 ml/min/1.73 sqM) Glucose 102 H (74-99) mg/dL Calcium 9.2 (8.4-10.2) mg/dL Total Bilirubin 0.5 (0.2-1.3) mg/dL AST 29 (14-36) U/L ALT 20 (4-34) U/L Alkaline Phosphatase 73 (38-126) U/L Troponin I (0.000-0.034) ng/mL NT-Pro-B Natriuret Pep pg/mL Total Protein 6.6 (6.3-8.2) g/dL Albumin 3.9 (3.5-5.0) g/dL Coronavirus (PCR) (Not Detected) 06/05/20 06/05/20 06/05/20 Range/Units 10:34 10:34 10:34 WBC (3.8-10.6) k/uL RBC (3.80-5.40) m/uL Hgb (11.4-16.0) gm/dL Hct (34.0-46.0) % MCV (80.0-100.0) fL MCH (25.0-35.0) pg MCHC (31.0-37.0) g/dL RDW (11.5-15.5) % Plt Count (150-450) k/uL Neutrophils % % Lymphocytes % % Monocytes % % Eosinophils % % Basophils % % Neutrophils # (1.3-7.7) k/uL Lymphocytes # (1.0-4.8) k/uL Monocytes # (0-1.0) k/uL Eosinophils # (0-0.7) k/uL Basophils # (0-0.2) k/uL Hypochromasia Anisocytosis PT (9.0-12.0) sec INR (<1.2) APTT (22.0-30.0) sec Sodium (137-145) mmol/L Potassium (3.5-5.1) mmol/L Chloride (98-107) mmol/L Carbon Dioxide (22-30) mmol/L Anion Gap mmol/L BUN (7-17) mg/dL Creatinine (0.52-1.04) mg/dL Est GFR (CKD-EPI)AfAm (>60 ml/min/1.73 sqM) Est GFR (CKD-EPI)NonAf (>60 ml/min/1.73 sqM) Glucose (74-99) mg/dL Calcium (8.4-10.2) mg/dL Total Bilirubin (0.2-1.3) mg/dL AST (14-36) U/L ALT (4-34) U/L Alkaline Phosphatase (38-126) U/L Troponin I <0.012 (0.000-0.034) ng/mL NT-Pro-B Natriuret Pep 205 pg/mL Total Protein (6.3-8.2) g/dL Albumin (3.5-5.0) g/dL Coronavirus (PCR) Not Detected (Not Detected) Disposition Is patient prescribed a controlled substance at d/c from ED?: No Time of Disposition: 11:56 <Shakeel Zuniga - Last Filed: 06/05/20 11:55> <Adrianne Soni - Last Filed: 06/07/20 01:31> Clinical Impression: COPD exacerbation Disposition: ADMITTED IP TO THIS HOSP
[2020-06-05 10:57] LABS: Anisocytosis Slight; Basophils # (A) 0.1 k/uL (0-0.2); Basophils % (A) 1 %; Eosinophils % (A) 12 %; HCT 43.8 % (34.0-46.0); HGB 13.5 gm/dL (11.4-16.0); Hypochromasia Slight; Lymphocytes # (A) 1.1 k/uL (1.0-4.8); Lymphocytes % (A) 14 %; MCH 25.3 pg (25.0-35.0); MCHC 30.7 g/dL (31.0-37.0); MCV 82.4 fL (80.0-100.0); Mean Platelet Volume 7.5; Monocytes # (A) 0.4 k/uL (0-1.0); Monocytes % (A) 5 %; Neutrophils # (A) 5.5 k/uL (1.3-7.7); Neutrophils % (A) 67 %; Platelet Count 303 k/uL (150-450); RBC 5.31 m/uL (3.80-5.40); RDW 16.7 % (11.5-15.5); WBC 8.2 k/uL (3.8-10.6)
[2020-06-05 11:02] LABS: INR 0.9 (<1.2); Partial Thromboplastin Time 23.8 sec (22.0-30.0); Prothrombin Time 9.8 sec (9.0-12.0)
[2020-06-05 11:13] LABS: Albumin 3.9 g/dL (3.5-5.0); Calcium 9.2 mg/dL (8.4-10.2); Potassium 4.8 mmol/L (3.5-5.1); Total Bilirubin 0.5 mg/dL (0.2-1.3); Total Protein 6.6 g/dL (6.3-8.2)
--- NOTE | 2020-06-05 11:23 | XR ---
EXAMINATION TYPE: XR chest 2V DATE OF EXAM: 06/05/2020 COMPARISON: Chest x-ray October 19, 2019. HISTORY: History of COPD with difficulty breathing and wheezing. TECHNIQUE: Frontal and lateral views of the chest are obtained. FINDINGS: There is background chronic emphysematous change without suspicious focal air space opacit y, pleural effusion, or pneumothorax seen. The cardiac silhouette size appears less prominent and wi thin normal limits with atherosclerotic change in the aortic knob redemonstrated. The osseous struc tures remain demineralized. IMPRESSION: Chronic changes without new acute pulmonary process.
[2020-06-05] MEDS: IPRATROPIUM-ALBUTEROL 3 ML NEB INHALATION SCH ×3 (13:02→20:33)
[2020-06-05] MEDS: methylPREDNISolone SOD SUCCI 125 MG/2 ML VIAL IV SCH ×2 (13:07→16:48)
[2020-06-05] MEDS: DOXYCYCLINE 100 MG CAP PO SCH ×2 (13:14→21:03)
[2020-06-05] MEDS: APIXABAN 5 MG TAB PO SCH ×2 (13:15→20:52)
[2020-06-05] MEDS: AMIODARONE 200 MG TAB PO SCH ×2 (13:15→21:03)
[2020-06-05] MEDS: ACETAMINOPHEN TAB 325 MG TAB PO PRN ×2 (16:48→20:52)
--- NOTE | 2020-06-05 17:04 | P.HPIM ---
History of Present Illness H&P Date: 06/05/20 Chief Complaint: SOB Mrs. Bhatt is a 64-year-old female with a past medical history of asthma, COPD, atrial fibrillation on anticoagulation coming into the hospital with a chief complaint of difficulty in breathing. Patient states that she is on 2 L of home oxygen but since November of this year she could not get refills on her oxygen so stopped using it. She states that she has been okay until one week back when she started to have mild difficulty in breathing that progressively worsened. Patient states during this time of the year her asthma flares up and she thinks it is one of those episodes. She denies having any chest pains. Patient denies having any fevers chills or rigors. No cough. No exposure to COVID 19 patients. Patient denies having any orthopnea, PND or lower extremity swelling. Patient also reports that she has been off of all her medications for the past 5 days. Patient denies having any abdominal pain nausea vomiting or diarrhea. No he adaches, changes in her vision or neck aches. She denies having any weakness in her extremities. In the emergency room patient had EKG - normal sinus rhythm with right bundle branch block, stable from previous EKG done in September 2019 and chest x-ray done showing- chronic changes without new acute pulmonary process. Her labs have been reviewed and are within normal limits. Review of Systems REVIEW OF SYSTEMS: CONSTITUTIONAL: No fever, no malaise, no fatigue. HEENT: No recent visual problems or hearing problems. Denied any sore throat. CARDIOVASCULAR: No chest pain, palpitations, orthopnea or PND PULMONARY: As per HPI GASTROINTESTINAL: No diarrhea, no nausea,no abdominal pain. NEUROLOGICAL: No headaches, no weakness, no numbness. HEMATOLOGICAL: Denies any bleeding or petechiae. GENITOURINARY: Denies any burning micturition, frequency, or urgency. MUSCULOSKELETAL/RHEUMATOLOGICAL: No joint swelling or pain ENDOCRINE: Denies any polyuria or polydipsia. The rest of the 13-point review of systems is negative. Past Medical History Past Medical History: Atrial Fibrillation, Asthma, COPD, CVA/TIA, Myocardial Infarction ([place]), Osteoarthritis ([place]) Additional Past Medical History / Comment(s): Brain aneurysum that is clipped 2000 HF, home oxygen at 2L/[place] ATC, arthritis in several joints, chronic low back pain which involves L leg-numbness/tingling, scoliosis, seasonal allergies. Last Myocardial Infarction Date:: 10/19/2019 History of Any Multi-Drug Resistant Organisms: None Reported Past Surgical History: Orthopedic Surgery, Tubal Ligation Additional Past Surgical History / Comment(s): Brain aneurysum that is clipped, left shoulder rotator cuff repair, spine lumbar disc 3x fused Past Anesthesia/Blood Transfusion Reactions: No Reported Reaction Past Psychological History: Anxiety, Depression Additional Psychological History / Comment(s): Pt resides with her son. She uses no assistive device. She drives. She has home oxygen at 2L/NC ATC and a nebulizer. Smoking Status: Former smoker Past Alcohol Use History: None Reported Additional Past Alcohol Use History / Comment(s): Pt started smoking in 1975 and has quit august 2019 Past Drug Use History: None Reported - Past Family History Father Family Medical History: Coronary Artery Disease (CAD), Diabetes Mellitus Additional Family Medical History / Comment(s): Father had 3 vessel CABG. He at the age of 69 from heart disease. Mother Family Medical History: Myocardial Infarction ([place]) Additional Family Medical History / Comment(s): Mother of a [place] at the age of 42 yrs. Medications and Allergies Home Medications Medication Instructions Recorded Confirmed Type Montelukast [Singulair] 10 mg PO HS 02/15/19 06/05/20 History Ipratropium-Albuterol Nebulize 3 ml INHALATION RT-QID 03/28/19 06/05/20 History [Duoneb 0.5 mg-3 mg/3 ml Soln] Umeclidinium [place] [Incruse 1 puff INHALATION RT-DAILY 03/28/19 06/05/20 History Ellipta] Apixaban [Eliquis] 5 mg PO BID 08/13/19 06/05/20 History tiZANidine [Zanaflex] 4 mg PO HS PRN 10/19/19 06/05/20 History Amiodarone [Cordarone] 200 mg PO BID #30 tab 10/21/19 06/05/20 Rx Aspirin 81 mg PO DAILY #30 chew 10/21/19 06/05/20 Rx Fluticasone/Salmeterol 2 puff INHALATION RT-BID 06/05/20 06/05/20 History [Fluticasone-Salmeterol 113-14] Allergies Allergy/AdvReac Type Severity Reaction Status Date / Time naproxen [From Naprosyn] Allergy Anaphylaxis Verified 06/05/20 11:29 Sulfa (Sulfonamide Allergy Anaphylaxis Verified 06/05/20 11:29 Antibiotics) azithromycin [From Zithromax] AdvReac does not Verified 06/05/20 11:29 take due to A-Fib Physical Exam Vitals: Vital Signs Temp Pulse Pulse Pulse Pulse Resp BP 06/05/20 15:50 80 06/05/20 15:37 78 06/05/20 13:40 80 90 06/05/20 13:14 82 06/05/20 13:02 79 06/05/20 13:00 80 18 145/63 06/05/20 12:30 78 142/51 06/05/20 12:22 98.3 F 79 16 06/05/20 12:00 80 135/66 06/05/20 11:30 80 127/92 06/05/20 11:00 84 139/62 06/05/20 10:57 84 20 139/62 06/05/20 10:49 92 06/05/20 10:45 90 193/104 06/05/20 10:32 82 06/05/20 10:13 99.5 F 85 24 193/104 BP Pulse Ox Pulse Ox Pulse Ox 06/05/20 15:50 06/05/20 15:37 94 L 06/05/20 13:40 92 L 87 L 06/05/20 13:14 06/05/20 13:02 93 L 06/05/20 13:00 91 L 06/05/20 12:30 93 L 06/05/20 12:22 148/68 92 L 06/05/20 12:00 93 L 06/05/20 11:30 93 L 06/05/20 11:00 96 06/05/20 10:57 96 06/05/20 10:49 06/05/20 10:45 97 06/05/20 10:32 06/05/20 10:13 94 L Intake and Output 06/05/20 06/05/20 06/05/20 06:59 14:59 22:59 Other: Weight 63.503 kg PHYSICAL EXAMINATION: Patient's blood pressure is 102/57, T-max 99.5, heart rate 66, saturating at 95% on 2 L of nasal cannula. GENERAL: appears to be in no acute distress. HEENT: Pupils are round and equally reacting to light. EOMI. mild scleral icterus. No conjunctival pallor. Normocephalic, atraumatic. No pharyngeal erythema. No thyromegaly. CARDIOVASCULAR: S1 and S2 heard. No additional sounds. PULMONARY: Rhonchi heard in bilateral lung coles. Mild expiratory wheezing. ABDOMEN: Soft, nontender, nondistended, normoactive bowel sounds. No palpable organomegaly. MUSCULOSKELETAL: No joint swelling or deformity. EXTREMITIES: No cyanosis, clubbing, or pedal edema. NEUROLOGICAL: Alert awake oriented 3, Gross neurological examination did not reveal any focal deficits. SKIN: No rash Results CBC & Chem 7: 06/05/20 10:34 06/05/20 10:34 Labs: Abnormal Lab Results - Last 24 Hours (Table) 06/05/20 06/05/20 Range/Units 10:34 10:34 MCHC 30.7 L (31.0-37.0) g/dL RDW 16.7 H (11.5-15.5) % Eosinophils # 1.0 H (0-0.7) k/uL BUN 18 H (7-17) mg/dL Glucose 102 H (74-99) mg/dL Thrombosis Risk Factor Assmnt - Choose All That Apply Each Risk Factor Represents 2 Points: Age 61-74 years Thrombosis Risk Factor Assessment Total Risk Factor Score: 2 Thrombosis Risk Factor Assessment Level: Low Risk Assessment and Plan Assessment: ASSESSMENT Acute on chronic hypoxic respiratory failure Acute COPD exacerbation History of atrial fibrillation on anticoagulation with Eliquis History of CVA/TIA Brain aneurysm clipped in 2000 Chronic low back pain Left rotated cough. Patient Final lumbar disc fusion done in the past PLAN: Patient received breathing treatments in the ER, she still was wheezing. So the patient was started on IV steroids and admitted to the floors. Patient is ALLERGIC to azithromycin so she was started on doxycycline for possible tracheitis. Patient has been restarted on her home medications. The treatment plan was discussed with the patient in detail. Further recommendations to follow depending on the progress of the patient.
[2020-06-05] MEDS: MONTELUKAST 10 MG TAB PO SCH (20:52)
[2020-06-06] MEDS: methylPREDNISolone SOD SUCCI 125 MG/2 ML VIAL IV SCH ×4 (00:30→16:30)
[2020-06-06] MEDS: IPRATROPIUM-ALBUTEROL 3 ML NEB INHALATION SCH ×4 (07:24→19:16)
[2020-06-06] MEDS: ASPIRIN 81 MG PO SCH (07:49)
[2020-06-06] MEDS: AMIODARONE 200 MG TAB PO SCH ×2 (07:49→21:05)
[2020-06-06] MEDS: APIXABAN 5 MG TAB PO SCH ×2 (07:49→21:05)
[2020-06-06] MEDS: DOXYCYCLINE 100 MG CAP PO SCH ×2 (07:49→21:05)
--- NOTE | 2020-06-06 15:13 | P.CNPUL ---
History of Present Illness Consult date: 06/06/20 Requesting physician: Genesis Smith Reason for consult: COPD Chief complaint: Shortness of breath, cough, wheezing History of present illness: This is a 64-year-old female with history of severe COPD, O2 dependent, maintained on 2 L/m, normally sees Dr. Booth in our office for her COPD, and t he last time she was seen in our office was in October. Patient is ex-smoker, she quit smoking in March of 2020, and she has smoked since she was 14 years old, on the average of one pack per day. Patient is also known to have history of chronic atrial fibrillation, degenerative joint disease, previous clipping of a brain aneurysm, seasonal ALLERGIC rhinitis. Patient presented to the ER today with 5 days history of cough, the cough is described as productive with whitish phlegm, shortness of breath, wheezing. Denies any fever no chills no hemoptysis and no chest pain. Chest x-ray on admission showed no evidence of active disease. Patient was admitted, placed on bronchodilators and steroids, as well as antibiotics, and this consult was initiated. Patient denies any exposure to any covid 19 patients. Review of Systems Eyes: denies blurred vision, denies bulging eye, denies decreased vision, denies diplopia, denies discharge, Ears: deny: decreased hearing, ear discharge, earache, tinnitus Ears, nose, mouth and throat: Denies headache, Denies sore throat Cardiovascular: History of atrial fibrillation, being followed by cardiology. Respiratory: As noted in HPI. Gastrointestinal: Negative Genitourinary: Negative Musculoskeletal: Negative Musculoskeletal: Symptoms of degenerative joint disease. Integumentary: Negative Neurological: Negative Psychiatric: Negative Endocrine: Denies any heat or cold intolerance, no polyuria no polydipsia. Hematologic/Lymphatic: Negative Allergic/Immunologic: History of seasonal ALLERGIC rhinitis Past Medical History Past Medical History: Atrial Fibrillation, Asthma, COPD, CVA/TIA, Myocardial Infarction ([place]), Osteoarthritis (OA) Additional Past Medical History / Comment(s): Brain aneurysum that is clipped 2000 HF, home oxygen at 2L/[place] ATC, arthritis in several joints, chronic low back pain which involves L leg-numbness/tingling, scoliosis, seasonal allergies. Last Myocardial Infarction Date:: 10/19/2019 History of Any Multi-Drug Resistant Organisms: None Reported Past Surgical History: Orthopedic Surgery, Tubal Ligation Additional Past Surgical History / Comment(s): Brain aneurysum that is clipped, left shoulder rotator cuff repair, spine lumbar disc 3x fused Past Anesthesia/Blood Transfusion Reactions: No Reported Reaction Past Psychological History: Anxiety, Depression Additional Psychological History / Comment(s): Pt resides with her son. She use s no assistive device. She drives. She has home oxygen at 2L/[place] ATC and a nebulizer. Smoking Status: Former smoker Past Alcohol Use History: None Reported Additional Past Alcohol Use History / Comment(s): Pt started smoking in 1975 and has quit august 2019 Past Drug Use History: None Reported - Past Family History Father Family Medical History: Coronary Artery Disease (CAD), Diabetes Mellitus Additional Family Medical History / Comment(s): Father had 3 vessel CABG. He at the age of 69 from heart disease. Mother Family Medical History: Myocardial Infarction ([place]) Additional Family Medical History / Comment(s): Mother of a [place] at the age of 42 yrs. Medications and Allergies Home Medications Medication Instructions Recorded Confirmed Type Montelukast [Singulair] 10 mg PO HS 02/15/19 06/05/20 History Ipratropium-Albuterol Nebulize 3 ml INHALATION RT-QID 03/28/19 06/05/20 History [Duoneb 0.5 mg-3 mg/3 ml Soln] Umeclidinium [place] [Incruse 1 puff INHALATION RT-DAILY 03/28/19 06/05/20 History Ellipta] Apixaban [Eliquis] 5 mg PO BID 08/13/19 06/05/20 History tiZANidine [Zanaflex] 4 mg PO HS PRN 10/19/19 06/05/20 History Amiodarone [Cordarone] 200 mg PO BID #30 tab 10/21/19 06/05/20 Rx Aspirin 81 mg PO DAILY #30 chew 10/21/19 06/05/20 Rx Fluticasone/Salmeterol 2 puff INHALATION RT-BID 06/05/20 06/05/20 History [Fluticasone-Salmeterol 113-14] Allergies Allergy/AdvReac Type Severity Reaction Status Date / Time naproxen [From Naprosyn] Allergy Anaphylaxis Verified 06/05/20 11:29 Sulfa (Sulfonamide Allergy Anaphylaxis Verified 06/05/20 11:29 Antibiotics) azithromycin [From Zithromax] AdvReac does not Verified 06/05/20 11:29 take due to A-Fib Physical Exam Vitals: Vital Signs Temp Pulse Pulse Resp BP Pulse Ox 06/06/20 11:34 84 06/06/20 11:22 84 06/06/20 07:56 18 06/06/20 07:55 98.2 F 84 18 174/77 91 L 06/06/20 07:36 90 06/06/20 07:24 90 92 L 06/06/20 03:00 98.0 F 82 22 123/71 91 L 06/05/20 20:47 82 06/05/20 20:33 78 06/05/20 20:30 97.9 F 83 22 170/75 91 L 06/05/20 15:50 80 06/05/20 15:37 78 94 L Intake and Output 06/06/20 06/06/20 06/06/20 06:59 14:59 22:59 Other: Voiding Method Toilet Toilet # Voids 2 2 GENERAL EXAM: Very pleasant 64-year-old female patient. Alert, active, comfortable in no apparent distress. On 2 L nasal cannula. HEENT: PERRLA, EOMI, no icterus, no neck masses, no JVD, no stridor, moist mucous membranes. CHEST: No chest wall deformity. LUNGS: Symmetrical chest expansion, diffuse wheezes bilaterally. CVS: Irregular irregular rhythm. S1 and S2 normal with no audible murmur ABDOMEN: No hepatosplenomegaly, normal bowel sounds, no guarding or rigidity. SPINE: No scoliosis or deformity SKIN: No rashes CENTRAL NERVOUS SYSTEM: No focal deficits, tone is normal in all 4 extremities. EXTREMITIES: There is no peripheral edema. No clubbing, no cyanosis. Peripheral pulses are intact. Psychiatric: Normal mood affect and normal mental status examination. Musculoskeletal: No deformities, no limitation in range of motion. Results - Laboratory Findings CBC and BMP: 06/05/20 10:34 06/05/20 10:34 PT/INR, D-dimer PT 9.8 sec (9.0-12.0) 06/05/20 10:34 INR 0.9 (<1.2) 06/05/20 10:34 Abnormal lab findings: Abnormal Labs 06/05/20 06/05/20 10:34 10:34 MCHC 30.7 L RDW 16.7 H Eosinophils # 1.0 H BUN 18 H Glucose 102 H - Diagnostic Findings Chest x-ray: image reviewed (No evidence of active disease) Assessment and Plan Assessment: Impression: Acute exacerbation of COPD. Acute tracheobronchitis. No evidence of pneumonia on chest x-ray. Chronic hypoxic respiratory failure. This is secondary to underlying COPD. History of coronary artery disease and previous angioplasty of distal segment of the right PDA. History of inferior wall [place]. History of peripheral vessel occlusive disease. Paroxysmal atrial fibrillation. Benign essential hypertension. Dyslipidemia. Chronic tobacco use, patient supposedly quit in March of 2020. History of seasonal ALLERGIC rhinitis. Degenerative joint disease. History of [employer] aneurysm, previous clipping. Recommendation: Agree with DuoNeb. Agree with doxycycline. Agree with Solu-Medrol. Will add Symbicort 160/4.52 puffs twice a day. Continue Singulair. Resume home meds including amiodarone, aspirin, and Eliquis. We'll continue to follow. Continue O2 at 2 L/m. Time with Patient: Greater than 30
[2020-06-06] MEDS: MONTELUKAST 10 MG TAB PO SCH (21:05)
[2020-06-06] MEDS: IPRATROPIUM-ALBUTEROL 3 ML NEB INHALATION PRN (21:31)
[2020-06-06] MEDS: SYMBICORT 160-4.5 MCG INHALER INHALATION SCH (21:56)
[2020-06-07] MEDS: methylPREDNISolone SOD SUCCI 125 MG/2 ML VIAL IV SCH ×4 (00:14→18:12)
[2020-06-07] MEDS: IPRATROPIUM-ALBUTEROL 3 ML NEB INHALATION PRN ×3 (01:19→23:14)
[2020-06-07 07:29] LABS: Anisocytosis Slight; Basophils % (A) 0 %; Eosinophils % (A) 0 %; HCT 43.5 % (34.0-46.0); HGB 13.2 gm/dL (11.4-16.0); Hypochromasia Moderate; Lymphocytes # (A) 0.5 k/uL (1.0-4.8); Lymphocytes % (A) 4 %; MCH 25.4 pg (25.0-35.0); MCHC 30.4 g/dL (31.0-37.0); MCV 83.6 fL (80.0-100.0); Mean Platelet Volume 7.4; Monocytes # (A) 0.5 k/uL (0-1.0); Monocytes % (A) 4 %; Neutrophils # (A) 12.4 k/uL (1.3-7.7); Neutrophils % (A) 92 %; Platelet Count 290 k/uL (150-450); RDW 16.8 % (11.5-15.5); WBC 13.5 k/uL (3.8-10.6)
[2020-06-07 07:45] LABS: African American GFR (CKD) >90 (>60 ml/min/1.73 sqM); Anion Gap 7 mmol/L; Blood Urea Nitrogen 23 mg/dL (7-17); Carbon Dioxide 29 mmol/L (22-30); Chloride 104 mmol/L (98-107); Glucose 156 mg/dL (74-99); Non-African American GFR(CKD) 88 (>60 ml/min/1.73 sqM); Potassium 4.8 mmol/L (3.5-5.1); Sodium 140 mmol/L (137-145)
[2020-06-07] MEDS: IPRATROPIUM-ALBUTEROL 3 ML NEB INHALATION SCH ×4 (07:47→19:19)
[2020-06-07] MEDS: SYMBICORT 160-4.5 MCG INHALER INHALATION SCH ×2 (07:48→19:20)
[2020-06-07] MEDS: AMIODARONE 200 MG TAB PO SCH ×2 (08:56→20:35)
[2020-06-07] MEDS: DOXYCYCLINE 100 MG CAP PO SCH ×2 (08:56→20:35)
[2020-06-07] MEDS: APIXABAN 5 MG TAB PO SCH ×2 (08:56→20:35)
[2020-06-07] MEDS: ASPIRIN 81 MG PO SCH (08:56)
--- NOTE | 2020-06-07 11:46 | P.PN ---
Subjective Progress Note Date: 06/07/20 Principal diagnosis: Acute exacerbation of COPD. This is a 64-year-old female with history of severe COPD, O2 dependent, maintained on 2 L/m, normally sees Dr. Booth in our office for her COPD, and the last time she was seen in our office was in October. Patient is ex-smoker, she quit smoking in March of 2020, and she has smoked since she was 14 years old, on the average of one pack per day. Patient is also known to have history of chronic atrial fibrillation, degenerative joint disease, previous clipping of a brain aneurysm, seasonal ALLERGIC rhinitis. Patient presented to the ER today with 5 days history of cough, the cough is described as productive with whitish phlegm, shortness of breath, wheezing. Denies any fever no chills no hemoptysis and no chest pain. Chest x-ray on admission showed no evidence of active disease. Patient was admitted, placed on bronchodilators and steroids, as well as antibiotics, and this consult was initiated. Patient denies any exposure to any covid 19 patients. Patient was reevaluated today on 06/07/20, patient was admitted yesterday with acute exacerbation of COPD, treated with multiple bronchodilators, antibiotics and steroids, she is feeling much better today, breathing a lot easier. Less cough and less wheezing less shortness of breath. Remains on 3 L of oxygen. Tolerating treatment quite well, and steadily improving. PCR for babb virus was negative. Labs were all reviewed including CBC showing a bit of l eukocytosis, and she had a basically normal metabolic profile. Objective - Vital Signs Vital signs: Vital Signs Temp 97.9 F 06/07/20 09:00 Pulse 88 06/07/20 11:31 Resp 18 06/07/20 09:00 BP 102/54 06/07/20 09:00 Pulse Ox 95 06/07/20 09:00 Intake & Output 06/06/20 06/07/20 06/07/20 18:59 06:59 18:59 Other: Voiding Method Toilet Toilet Toilet # Voids 2 1 1 - Exam GENERAL EXAM: Very pleasant 64-year-old female patient. Alert, active, comfortable in no apparent distress. On 2 L nasal cannula. HEENT: PERRLA, EOMI, no icterus, no neck masses, no JVD, no stridor, moist mucous membranes. CHEST: No chest wall deformity. LUNGS: Symmetrical chest expansion, wheezing on forced expiratory maneuver only significant improvement compared to yesterday. CVS: Irregular irregular rhythm. S1 and S2 normal with no audible murmur ABDOMEN: No hepatosplenomegaly, normal bowel sounds, no guarding or rigidity. SPINE: No scoliosis or deformity SKIN: No rashes CENTRAL NERVOUS SYSTEM: No focal deficits, tone is normal in all 4 extremities. EXTREMITIES: There is no peripheral edema. No clubbing, no cyanosis. Peripheral pulses are intact. Psychiatric: Normal mood affect and normal mental status examination. Musculoskeletal: No deformities, no limitation in range of motion. - Labs CBC & Chem 7: 06/07/20 07:09 06/07/20 07:09 Labs: Abnormal Lab Results - Last 24 Hours (Table) 06/07/20 06/07/20 Range/Units 07:09 07:09 WBC 13.5 H (3.8-10.6) k/uL MCHC 30.4 L (31.0-37.0) g/dL RDW 16.8 H (11.5-15.5) % Neutrophils # 12.4 H (1.3-7.7) k/uL Lymphocytes # 0.5 L (1.0-4.8) k/uL BUN 23 H (7-17) mg/dL Glucose 156 H (74-99) mg/dL Assessment and Plan Assessment: Impression: Acute exacerbation of COPD. Acute tracheobronchitis. No evidence of pneumonia on chest x-ray. Chronic hypoxic respiratory failure. This is secondary to underlying COPD. History of coronary artery disease and previous angioplasty of distal segment of the right PDA. History of inferior wall [place]. History of peripheral vessel occlusive disease. Paroxysmal atrial fibrillation. Benign essential hypertension. Dyslipidemia. Chronic tobacco use, patient supposedly quit in March of 2020. History of seasonal ALLERGIC rhinitis. Degenerative joint disease. History of BACK JOINER aneurysm, previous clipping. Recommendation: Agree with DuoNeb. Continue doxycycline. Continue Solu-Medrol. Continue Symbicort 160/4.52 puffs twice a day. Continue Singulair. Continue oxygen Consider switching the patient to prednisone tomorrow, and possibly discharge the patient home tomorrow if she continues to do well. Time with Patient: Less than 30
--- NOTE | 2020-06-07 12:50 | P.PN ---
Subjective Progress Note Date: 06/06/20 Principal diagnosis: Acute on chronic hypoxic respiratory failure Mrs. Bhatt is a 64-year-old female with a past medical history of asthma, COPD, atrial fibrillation on anticoagulation coming into the hospital with a chief complaint of difficulty in breathing. Patient states that she is on 2 L of home oxygen but since November of this year she could not get refills on her oxygen so stopped using it. She states that she has been okay until one week back when she started to have mild difficulty in breathing that progressively worsened. Patient states during this time of the year her asthma flares up and she thinks it is one of those episodes. She denies having any chest pains. Patient denies having any fevers chills or rigors. No cough. No exposure to COVID 19 devi ents. Patient denies having any orthopnea, PND or lower extremity swelling. Patient also reports that she has been off of all her medications for the past 5 days. Patient denies having any abdominal pain nausea vomiting or diarrhea. No headaches, changes in her vision or neck aches. She denies having any weakness in her extremities. In the emergency room patient had EKG - normal sinus rhythm with right bundle branch block, stable from previous EKG done in September 2019 and chest x-ray done showing- chronic changes without new acute pulmonary process. On 06/06/20 - Patient is sitting up in the bed. She states that she is having a lot of productive cough. Denies having any hemoptysis. Denies having any chills or fevers. Her difficulty in breathing is slightly worse compared to yesterday. On review of other systems patient denies having any chest pain or palpitations. No abdominal pain nausea vomiting or diarrhea. No dysuria or hematuria. On reviewing the vitals patient's saturations are above 90 with 2 L of nasal cannula, heart rate around 80s, T-max 98.2. No new labs from this morning. She is tested negative for COVID-19. Active Medications Acetaminophen (Tylenol Tab) 650 mg PO Q6HR PRN PRN Reason: Fever and/ or Pain Last Admin: 06/05/20 20:52 Dose: 650 mg Documented by: Albuterol/Ipratropium (Duoneb 0.5 Mg-3 Mg/3 Ml Soln) 3 ml INHALATION RT-QID [facility] Last Admin: 06/06/20 19:16 Dose: 3 ml Documented by: Albuterol/Ipratropium (Duoneb 0.5 Mg-3 Mg/3 Ml Soln) 3 ml INHALATION RT-Q2H PRN PRN Reason: Shortness Of Breath Or Wheezing Amiodarone HCl (Cordarone) 200 mg PO BID [facility] Last Admin: 06/06/20 21:05 Dose: 200 mg Documented by: Apixaban (Eliquis) 5 mg PO BID [facility] Last Admin: 06/06/20 21:05 Dose: 5 mg Documented by: Aspirin (Aspirin) 81 mg PO DAILY [facility] Last Admin: 06/06/20 07:49 Dose: 81 mg Documented by: Doxycycline Monohydrate (Vibramycin) 100 mg PO BID [facility] Last Admin: 06/06/20 21:05 Dose: 100 mg Documented by: Methylprednisolone Sodium Succinate (Solu-Medrol) 60 mg IV Q6HR [facility] Last Admin: 06/06/20 16:30 Dose: 60 mg Documented by: Montelukast Sodium (Singulair) 10 mg PO HS [facility] Last Admin: 06/06/20 21:05 Dose: 10 mg Documented by: Tizanidine HCl (Zanaflex) 4 mg PO HS PRN PRN Reason: Pain Objective - Vital Signs Vital signs: Vital Signs Temp 98.2 F 06/06/20 07:55 Pulse 84 06/06/20 11:34 Resp 18 06/06/20 07:56 BP 174/77 06/06/20 07:55 Pulse Ox 91 L 06/06/20 07:55 Intake & Output 06/05/20 06/06/20 06/06/20 18:59 06:59 18:59 Weight 63.503 kg Other: Voiding Method Toilet Toilet # Voids 2 2 - Exam PHYSICAL EXAMINATION: GENERAL: appears to be in no acute distress. HEENT: Pupils are round and equally reacting to light. EOMI. no scleral icterus. No conjunctival pallor. CARDIOVASCULAR: S1 and S2 heard. No additional sounds. PULMONARY: Rhonchi heard in bilateral lung coles - worse than yesterday . Expiratory wheezing. ABDOMEN: Soft, nontender, nondistended, normoactive bowel sounds. No palpable organomegaly. MUSCULOSKELETAL: No joint swelling or deformity. EXTREMITIES: No cyanosis, clubbing, or pedal edema. NEUROLOGICAL: Alert awake oriented 3, Gross neurological examination did not reveal any focal deficits. SKIN: No rash - Labs CBC & Chem 7: 06/07/20 07:09 06/07/20 07:09 Assessment and Plan Assessment: ASSESSMENT Acute on chronic hypoxic respiratory failure Acute COPD exacerbation History of atrial fibrillation on anticoagulation with Eliquis History of CVA/TIA Brain aneurysm clipped in 2000 Chronic low back pain Left rotator cuff tear H/o Spinal lumbar fusion PLAN: Continue the patient on IV Solu-Medrol, doxycycline and breathing treatments. Will obtain sputum cultures. Will have pulmonary consult. Continue with the rest of her current medication regimen. DVT prophylaxis devi ent is on Eliquis. Further recommendations to follow depending on the progress of the patient.
--- NOTE | 2020-06-07 12:54 | P.PN ---
Subjective Progress Note Date: 06/07/20 Principal diagnosis: Acute on chronic hypoxic respiratory failure Mrs. Bhatt is a 64-year-old female with a past medical history of asthma, COPD, atrial fibrillation on anticoagulation coming into the hospital with a chief complaint of difficulty in breathing. Patient states that she is on 2 L of home oxygen but since November of this year she could not get refills on her oxygen so stopped using it. She states that she has been okay until one week back when she started to have mild difficulty in breathing that progressively worsened. Patient states during this time of the year her asthma flares up and she thinks it is one of those episodes. She denies having any chest pains. Patient denies having any fevers chills or rigors. No cough. No exposure to COVID 19 devi ents. Patient denies having any orthopnea, PND or lower extremity swelling. Patient also reports that she has been off of all her medications for the past 5 days. Patient denies having any abdominal pain nausea vomiting or diarrhea. No headaches, changes in her vision or neck aches. She denies having any weakness in her extremities. In the emergency room patient had EKG - normal sinus rhythm with right bundle branch block, stable from previous EKG done in September 2019 and chest x-ray done showing- chronic changes without new acute pulmonary process. On 06/06/20 - Patient is sitting up in the bed. She states that she is having a lot of productive cough. Denies having any hemoptysis. Denies having any chills or fevers. Her difficulty in breathing is slightly worse compared to yesterday. On review of other systems patient denies having any chest pain or palpitations. No abdominal pain nausea vomiting or diarrhea. No dysuria or hematuria. On reviewing the vitals patient's saturations are above 90 with 2 L of nasal cannula, heart rate around 80s, T-max 98.2. No new labs from this morning. She is tested negative for COVID-19. On 06/07/2020- patient is sitting up in the bed. She states that her cough is much better compared to yesterday, and states that difficulty in breathing is improved after adding Singulair. Patient denies having any chest pain or palpitations. No abdominal pain nausea vomiting or diarrhea. No dysuria or hematuria. On reviewing the vitals patient has been saturating above 94 with 2 L of oxygen, blood pressure 10 2 x 54, T-max 97.0. Labs from this morning show slight increase in white count to 13.5, hemoglobin stable around 13.2 and electrolytes within normal limits. Active Medications Acetaminophen (Tylenol Tab) 650 mg PO Q6HR PRN PRN Reason: Fever and/ or Pain Last Admin: 06/05/20 20:52 Dose: 650 mg Documented by: Albuterol/Ipratropium (Duoneb 0.5 Mg-3 Mg/3 Ml Soln) 3 ml INHALATION RT-QID [facility] Last Admin: 06/07/20 11:19 Dose: 3 ml Documented by: Albuterol/Ipratropium (Duoneb 0.5 Mg-3 Mg/3 Ml Soln) 3 ml INHALATION RT-Q2H PRN PRN Reason: Shortness Of Breath Or Wheezing Last Admin: 06/07/20 04:22 Dose: 3 ml Documented by: Amiodarone HCl (Cordarone) 200 mg PO BID [facility] Last Admin: 06/07/20 08:56 Dose: 200 mg Documented by: Apixaban (Eliquis) 5 mg PO BID [facility] Last Admin: 06/07/20 08:56 Dose: 5 mg Documented by: Aspirin (Aspirin) 81 mg PO DAILY [facility] Last Admin: 06/07/20 08:56 Dose: 81 mg Documented by: Budesonide/Formoterol Fumarate (Symbicort 160-4.5 Mcg Inhaler) 2 puff INHALATION RT-BID [facility] Last Admin: 06/07/20 07:48 Dose: 2 puff Documented by: Doxycycline Monohydrate (Vibramycin) 100 mg PO BID [facility] Last Admin: 06/07/20 08:56 Dose: 100 mg Documented by: Methylprednisolone Sodium Succinate (Solu-Medrol) 60 mg IV Q6HR [facility] Last Admin: 06/07/20 11:48 Dose: 60 mg Documented by: Montelukast Sodium (Singulair) 10 mg PO HS [facility] Last Admin: 06/06/20 21:05 Dose: 10 mg Documented by: Tizanidine HCl (Zanaflex) 4 mg PO HS PRN PRN Reason: Pain Objective - Vital Signs Vital signs: Vital Signs Temp 97.9 F 06/07/20 09:00 Pulse 88 06/07/20 11:31 Resp 18 06/07/20 09:00 BP 102/54 08/13/20 09:00 Pulse Ox 95 06/07/20 09:00 Intake & Output 06/06/20 06/07/20 06/07/20 18:59 06:59 18:59 Intake Total 560 Balance 560 Intake: Oral 560 Other: Voiding Method Toilet Toilet Toilet # Voids 2 1 2 - Exam PHYSICAL EXAMINATION: GENERAL: appears to be in no acute distress. HEENT: Pupils are round and equally reacting to light. EOMI. no scleral icterus. No conjunctival pallor. CARDIOVASCULAR: Irregularly irregular, S1 and S2 heard. No additional sounds. PULMONARY: Expiratory wheezing in all lung coles, better compared to yesterday ABDOMEN: Soft, nontender, nondistended, normoactive bowel sounds. MUSCULOSKELETAL: No joint swelling or deformity. EXTREMITIES: No cyanosis, clubbing, or pedal edema. NEUROLOGICAL: Alert awake oriented 3, Gross neurological examination did not reveal any focal deficits. SKIN: No rash - Labs CBC & Chem 7: 06/07/20 07:09 06/07/20 07:09 Labs: Abnormal Lab Results - Last 24 Hours (Table) 06/07/20 06/07/20 Range/Units 07:09 07:09 WBC 13.5 H (3.8-10.6) k/uL MCHC 30.4 L (31.0-37.0) g/dL RDW 16.8 H (11.5-15.5) % Neutrophils # 12.4 H (1.3-7.7) k/uL Lymphocytes # 0.5 L (1.0-4.8) k/uL BUN 23 H (7-17) mg/dL Glucose 156 H (74-99) mg/dL Assessment and Plan Assessment: ASSESSMENT Acute on chronic hypoxic respiratory failure Acute COPD exacerbation Leukocytosis- to to steroids History of atrial fibrillation on anticoagulation with Eliquis History of CVA/TIA Brain aneurysm clipped in 2000 Chronic low back pain Left rotator cuff tear H/o Spinal lumbar fusion PLAN: Continue the patient on IV Solu-Medrol, doxycycline and breathing treatments. Singulair has been added to her regimen and she showed significant improvement in her symptoms, but still wheezing. Patient showed mild leukocytosis, could be due to additional steroids .Continue with the rest of her current medication regimen. DVT prophylaxis patient is on Eliquis. Further recommendations to follow depending on the progress of the patient.
[2020-06-07] MEDS: MONTELUKAST 10 MG TAB PO SCH (20:35)
[2020-06-08] MEDS: methylPREDNISolone SOD SUCCI 125 MG/2 ML VIAL IV SCH ×4 (00:17→18:20)
[2020-06-08] MEDS: IPRATROPIUM-ALBUTEROL 3 ML NEB INHALATION PRN ×2 (03:13→23:09)
[2020-06-08] MEDS: IPRATROPIUM-ALBUTEROL 3 ML NEB INHALATION SCH ×4 (07:16→19:14)
[2020-06-08] MEDS: SYMBICORT 160-4.5 MCG INHALER INHALATION SCH ×2 (07:16→19:14)
[2020-06-08] MEDS: APIXABAN 5 MG TAB PO SCH ×2 (07:59→20:06)
[2020-06-08] MEDS: DOXYCYCLINE 100 MG CAP PO SCH ×2 (07:59→20:06)
[2020-06-08] MEDS: AMIODARONE 200 MG TAB PO SCH ×2 (07:59→20:06)
[2020-06-08] MEDS: ASPIRIN 81 MG PO SCH (07:59)
--- NOTE | 2020-06-08 13:40 | P.PN ---
Subjective Progress Note Date: 06/08/20 Principal diagnosis: Acute exacerbation of COPD. This is a 64-year-old female with history of severe COPD, O2 dependent, maintained on 2 L/m, normally sees Dr. Booth in our office for her COPD, and the last time she was seen in our office was in October. Patient is ex-smoker, she quit smoking in March of 2020, and she has smoked since she was 14 years old, on the average of one pack per day. Patient is also known to have history of chronic atrial fibrillation, degenerative joint disease, previous clipping of a brain aneurysm, seasonal ALLERGIC rhinitis. Patient presented to the ER today with 5 days history of cough, the cough is described as productive with whitish phlegm, shortness of breath, wheezing. Denies any fever no chills no hemoptysis and no chest pain. Chest x-ray on admission showed no evidence of active disease. Patient was admitted, placed on bronchodilators and steroids, as well as antibiotics, and this consult was initiated. Patient denies any exposure to any covid 19 patients. Patient was reevaluated today on 06/07/20, patient was admitted yesterday with acute exacerbation of COPD, treated with multiple bronchodilators, antibiotics and steroids, she is feeling much better today, breathing a lot easier. Less cough and less wheezing less shortness of breath. Remains on 3 L of oxygen. Tolerating treatment quite well, and steadily improving. PCR for babb virus was negative. Labs were all reviewed including CBC showing a bit of l eukocytosis, and she had a basically normal metabolic profile. Patient was reevaluated today on 06/08/20, feeling much better, breathing a lot easier, patient is asking to be discharged home. Patient has home oxygen, she has bronchodilators at home, and I would recommend prednisone 30 mg tapered over 2-3 weeks, along with oral antibiotics for the next 10 days. And to follow-up with me in one week. Objective - Vital Signs Vital signs: Vital Signs Temp 98.4 F 06/08/20 07:53 Pulse 80 06/08/20 11:44 Resp 16 06/08/20 07:53 BP 148/75 06/08/20 07:53 Pulse Ox 87 L 06/08/20 11:30 Intake & Output 06/07/20 06/08/20 06/08/20 18:59 06:59 18:59 Intake Total 560 Balance 560 Intake: Oral 560 Other: Voiding Method Toilet Toilet Toilet # Voids 2 1 2 - Exam GENERAL EXAM: Very pleasant 64-year-old female patient. Alert, active, comfortable in no apparent distress. On 2 L nasal cannula. HEENT: PERRLA, EOMI, no icterus, no neck masses, no JVD, no stridor, moist mucous membranes. CHEST: No chest wall deformity. LUNGS: Symmetrical chest expansion, minimal wheezing on forced expiratory maneuver only. CVS: Irregular irregular rhythm. S1 and S2 normal with no audible murmur ABDOMEN: No hepatosplenomegaly, normal bowel sounds, no guarding or rigidity. SPINE: No scoliosis or deformity SKIN: No rashes CENTRAL NERVOUS SYSTEM: No focal deficits, tone is normal in all 4 extremities. EXTREMITIES: There is no peripheral edema. No clubbing, no cyanosis. Peripheral pulses are intact. Psychiatric: Normal mood affect and normal mental status examination. Musculoskeletal: No deformities, no limitation in range of motion. - Labs CBC & Chem 7: 06/07/20 07:09 06/07/20 07:09 Labs: Microbiology - Last 24 Hours (Table) 06/07/20 08:15 Gram Stain - Preliminary Sputum Assessment and Plan Assessment: Impression: Acute exacerbation of COPD. Acute tracheobronchitis. No evidence of pneumonia on chest x-ray. Chronic hypoxic respiratory failure. This is secondary to underlying COPD. History of coronary artery disease and previous angioplasty of distal segment of the right PDA. History of inferior wall AR. History of peripheral vessel occlusive disease. Paroxysmal atrial fibrillation. Benign essential hypertension. Dyslipidemia. Chronic tobacco use, patient supposedly quit in March of 2020. History of seasonal ALLERGIC rhinitis. Degenerative joint disease. History of [employer] aneurysm, previous clipping. Recommendation: Agree with DuoNeb. Continue doxycycline. Transition patient to prednisone 30 mg tapered over 2 weeks. Continue Symbicort 160/4.5 2 puffs twice a day. Continue Singulair. Continue oxygen Cleared to be discharged home today and follow up on outpatient basis. Time with Patient: Less than 30
[2020-06-08] MEDS: ACETAMINOPHEN TAB 325 MG TAB PO PRN (14:42)
--- NOTE | 2020-06-08 16:27 | P.PN ---
Subjective Progress Note Date: 06/08/20 Principal diagnosis: Acute on chronic hypoxic respiratory failure Mrs. Bhatt is a 64-year-old female with a past medical history of asthma, COPD, atrial fibrillation on anticoagulation coming into the hospital with a chief complaint of difficulty in breathing. Patient states that she is on 2 L of home oxygen but since November of this year she could not get refills on her oxygen so stopped using it. She states that she has been okay until one week back when she started to have mild difficulty in breathing that progressively worsened. Patient states during this time of the year her asthma flares up and she thinks it is one of those episodes. She denies having any chest pains. Patient denies having any fevers chills or rigors. No cough. No exposure to COVID 19 devi ents. Patient denies having any orthopnea, PND or lower extremity swelling. Patient also reports that she has been off of all her medications for the past 5 days. Patient denies having any abdominal pain nausea vomiting or diarrhea. No headaches, changes in her vision or neck aches. She denies having any weakness in her extremities. In the emergency room patient had EKG - normal sinus rhythm with right bundle branch block, stable from previous EKG done in September 2019 and chest x-ray done showing- chronic changes without new acute pulmonary process. On 06/06/20 - Patient is sitting up in the bed. She states that she is having a lot of productive cough. Denies having any hemoptysis. Denies having any chills or fevers. Her difficulty in breathing is slightly worse compared to yesterday. On review of other systems patient denies having any chest pain or palpitations. No abdominal pain nausea vomiting or diarrhea. No dysuria or hematuria. On reviewing the vitals patient's saturations are above 90 with 2 L of nasal cannula, heart rate around 80s, T-max 98.2. No new labs from this morning. She is tested negative for COVID-19. On 06/07/2020- patient is sitting up in the bed. She states that her cough is much better compared to yesterday, and states that difficulty in breathing is improved after adding Singulair. Patient denies having any chest pain or palpitations. No abdominal pain nausea vomiting or diarrhea. No dysuria or hematuria. On reviewing the vitals patient has been saturating above 94 with 2 L of oxygen, blood pressure 10 2 x 54, T-max 97.0. Labs from this morning show slight increase in white count to 13.5, hemoglobin stable around 13.2 and electrolytes within normal limits. On 06/08/2020- patient is sitting up in the bed appears to be in no acute distress. She states that her cough and difficulty in breathing are better but not back to her baseline yet. Patient denies having any chest pain or palpitations. No abdominal pain nausea vomiting or diarrhea. No dysuria or hematuria. She has been maintaining oxygen saturation about 96 on 2 L of nasal cannula, T-max afebrile in the past 24 hours, heart rate 70s to 80s. On reviewing her labs, no new labs from this morning. Active Medications Acetaminophen (Tylenol Tab) 650 mg PO Q6HR PRN PRN Reason: Fever and/ or Pain Last Admin: 06/08/20 14:42 Dose: 650 mg Documented by: Albuterol/Ipratropium (Duoneb 0.5 Mg-3 Mg/3 Ml Soln) 3 ml INHALATION RT-QID [facility] Last Admin: 06/08/20 15:35 Dose: 3 ml Documented by: Albuterol/Ipratropium (Duoneb 0.5 Mg-3 Mg/3 Ml Soln) 3 ml INHALATION RT-Q2H PRN PRN Reason: Shortness Of Breath Or Wheezing Last Admin: 06/08/20 03:13 Dose: 3 ml Documented by: Amiodarone HCl (Cordarone) 200 mg PO BID [facility] Last Admin: 06/08/20 07:59 Dose: 200 mg Documented by: Apixaban (Eliquis) 5 mg PO BID [facility] Last Admin: 06/08/20 07:59 Dose: 5 mg Documented by: Aspirin (Aspirin) 81 mg PO DAILY [facility] Last Admin: 06/08/20 07:59 Dose: 81 mg Documented by: Budesonide/Formoterol Fumarate (Symbicort 160-4.5 Mcg Inhaler) 2 puff INHALATION RT-BID [facility] Last Admin: 06/08/20 07:16 Dose: 2 puff Documented by: Doxycycline Monohydrate (Vibramycin) 100 mg PO BID [facility] Last Admin: 06/08/20 07:59 Dose: 100 mg Documented by: Methylprednisolone Sodium Succinate (Solu-Medrol) 60 mg IV Q6HR [facility] Last Admin: 06/08/20 11:28 Dose: 60 mg Documented by: Montelukast Sodium (Singulair) 10 mg PO HS [facility] Last Admin: 06/07/20 20:35 Dose: 10 mg Documented by: Tizanidine HCl (Zanaflex) 4 mg PO HS PRN PRN Reason: Pain Objective - Vital Signs Vital signs: Vital Signs Temp 97.4 F L 06/08/20 14:38 Pulse 78 06/08/20 14:38 Resp 18 06/08/20 14:38 BP 162/71 06/08/20 14:38 Pulse Ox 96 06/08/20 14:38 Intake & Output 06/07/20 06/08/20 06/08/20 18:59 06:59 18:59 Intake Total 560 Balance 560 Intake: Oral 560 Other: Voiding Method Toilet Toilet Toilet # Voids 2 1 2 - Exam PHYSICAL EXAMINATION: GENERAL: appears to be in no acute distress. HEENT: Pupils are round and equally reacting to light. EOMI. no scleral icterus. No conjunctival pallor. CARDIOVASCULAR: Irregularly irregular, S1 and S2 heard. No additional sounds. PULMONARY: Still has Expiratory wheezing in all lung coles ABDOMEN: Soft, nontender, nondistended, normoactive bowel sounds. MUSCULOSKELETAL: No joint swelling or deformity. EXTREMITIES: No cyanosis, clubbing, or pedal edema. NEUROLOGICAL: Alert awake oriented 3, Gross neurological examination did not r eveal any focal deficits. SKIN: No rash - Labs CBC & Chem 7: 06/07/20 07:09 06/07/20 07:09 Labs: Microbiology - Last 24 Hours (Table) 06/07/20 08:15 Gram Stain - Preliminary Sputum Assessment and Plan Assessment: ASSESSMENT Acute on chronic hypoxic respiratory failure Acute COPD exacerbation Leukocytosis- due to steroids History of atrial fibrillation on anticoagulation with Eliquis History of CVA/TIA Brain aneurysm clipped in 2000 Chronic low back pain Left rotator cuff tear H/o Spinal lumbar fusion PLAN: Continue the patient on IV Solu-Medrol, doxycycline and breathing treatments as she is still wheezing. Singulair has been added to her regimen and she showed significant improvement in her symptoms, but still wheezing. Patient showed mild leukocytosis, could be due to the addition of steroids .Continue with the rest of her current medication regimen. DVT prophylaxis patient is on Eliquis. Further recommendations to follow depending on the pro ebony of the patient.
[2020-06-08] MEDS: MONTELUKAST 10 MG TAB PO SCH (20:06)
[2020-06-08] MEDS: tiZANidine 4 MG TAB PO PRN (20:07)
[2020-06-09] MEDS: methylPREDNISolone SOD SUCCI 125 MG/2 ML VIAL IV SCH ×4 (00:11→17:39)
[2020-06-09] MEDS: IPRATROPIUM-ALBUTEROL 3 ML NEB INHALATION PRN ×2 (03:11→23:15)
[2020-06-09] MEDS: SYMBICORT 160-4.5 MCG INHALER INHALATION SCH ×2 (06:59→19:48)
[2020-06-09] MEDS: IPRATROPIUM-ALBUTEROL 3 ML NEB INHALATION SCH ×4 (06:59→19:48)
[2020-06-09] MEDS: APIXABAN 5 MG TAB PO SCH ×2 (08:38→21:39)
[2020-06-09] MEDS: DOXYCYCLINE 100 MG CAP PO SCH ×2 (08:38→22:02)
[2020-06-09] MEDS: ASPIRIN 81 MG PO SCH (08:38)
[2020-06-09] MEDS: AMIODARONE 200 MG TAB PO SCH ×2 (08:38→22:02)
[2020-06-09 09:20] LABS: Anisocytosis Slight; Basophils % (A) 0 %; Eosinophils % (A) 0 %; HCT 40.7 % (34.0-46.0); HGB 12.2 gm/dL (11.4-16.0); Hypochromasia Slight; Lymphocytes # (A) 0.3 k/uL (1.0-4.8); Lymphocytes % (A) 4 %; MCH 24.9 pg (25.0-35.0); MCV 83.2 fL (80.0-100.0); Mean Platelet Volume 7.4; Monocytes # (A) 0.2 k/uL (0-1.0); Monocytes % (A) 2 %; Neutrophils # (A) 7.7 k/uL (1.3-7.7); Neutrophils % (A) 93 %; Platelet Count 249 k/uL (150-450); RDW 16.6 % (11.5-15.5); WBC 8.2 k/uL (3.8-10.6)
[2020-06-09 09:30] LABS: African American GFR (CKD) >90 (>60 ml/min/1.73 sqM); Anion Gap 8 mmol/L; Blood Urea Nitrogen 24 mg/dL (7-17); Calcium 9.3 mg/dL (8.4-10.2); Carbon Dioxide 27 mmol/L (22-30); Chloride 101 mmol/L (98-107); Glucose 172 mg/dL (74-99); Non-African American GFR(CKD) 83 (>60 ml/min/1.73 sqM); Potassium 4.2 mmol/L (3.5-5.1); Sodium 136 mmol/L (137-145)
[2020-06-09] MEDS: MONTELUKAST 10 MG TAB PO SCH (21:39)
[2020-06-09] MEDS: tiZANidine 4 MG TAB PO PRN (21:39)
[2020-06-10] MEDS: methylPREDNISolone SOD SUCCI 125 MG/2 ML VIAL IV SCH ×5 (00:53→23:30)
[2020-06-10] MEDS: IPRATROPIUM-ALBUTEROL 3 ML NEB INHALATION PRN ×2 (03:07→23:56)
[2020-06-10] MEDS: ASPIRIN 81 MG PO SCH (07:48)
[2020-06-10] MEDS: AMIODARONE 200 MG TAB PO SCH ×2 (07:48→22:08)
[2020-06-10] MEDS: APIXABAN 5 MG TAB PO SCH ×2 (07:49→22:07)
[2020-06-10] MEDS: DOXYCYCLINE 100 MG CAP PO SCH ×2 (07:49→22:07)
[2020-06-10] MEDS: IPRATROPIUM-ALBUTEROL 3 ML NEB INHALATION SCH ×4 (08:41→19:02)
[2020-06-10] MEDS: SYMBICORT 160-4.5 MCG INHALER INHALATION SCH ×2 (08:41→19:02)
--- NOTE | 2020-06-10 12:45 | P.PN ---
Subjective Progress Note Date: 06/09/20 Principal diagnosis: Acute on chronic hypoxic respiratory failure Acute COPD exacerbation Mrs. Bhatt is a 64-year-old female with a past medical history of asthma, COPD, atrial fibrillation on anticoagulation coming into the hospital with a chief complaint of difficulty in breathing. Patient states that she is on 2 L of home oxygen but since November of this year she could not get refills on her oxygen so stopped using it. She states that she has been okay until one week back when she started to have mild difficulty in breathing that progressively worsened. Patient states during this time of the year her asthma flares up and she thinks it is one of those episodes. She denies having any chest pains. Patient denies having any fevers chills or rigors. No cough. No exposure to COVID 19 patients. Patient denies having any orthopnea, PND or lower extremity swelling. Patient also reports that she has been off of all her medications for the past 5 days. Patient denies having any abdominal pain nausea vomiting or diarrhea. No headaches, changes in her vision or neck aches. She denies having any weakness in her extremities. In the emergency room patient had EKG - normal sinus rhythm with right bundle branch block, stable from previous EKG done in September 2019 and chest x-ray done showing- chronic changes without new acute pulmonary process. On 06/06/20 - Patient is sitting up in the bed. She states that she is having a lot of productive cough. Denies having any hemoptysis. Denies having any chills or fevers. Her difficulty in breathing is slightly worse compared to yesterday. On review of other systems patient denies having any chest pain or palpitations. No abdominal pain nausea vomiting or diarrhea. No dysuria or hematuria. On reviewing the vitals patient's saturations are above 90 with 2 L of nasal cannula, heart rate around 80s, T-max 98.2. No new labs from this morning. She is tested negative for COVID-19. On 06/07/2020- patient is sitting up in the bed. She states that her cough is much better compared to yesterday, and states that difficulty in breathing is improved after adding Singulair. Patient denies having any chest pain or palpitations. No abdominal pain nausea vomiting or diarrhea. No dysuria or hematuria. On reviewing the vitals patient has been saturating above 94 with 2 L of oxygen, blood pressure 10 2 x 54, T-max 97.0. Labs from this morning show slight increase in white count to 13.5, hemoglobin stable around 13.2 and electrolytes within normal limits. On 06/08/2020- patient is sitting up in the bed appears to be in no acute distress. She states that her cough and difficulty in breathing are better but not back to her baseline yet. Patient denies having any chest pain or palpitations. No abdominal pain nausea vomiting or diarrhea. No dysuria or hematuria. She has been maintaining oxygen saturation about 96 on 2 L of nasal cannula, T-max afebrile in the past 24 hours, heart rate 70s to 80s. On reviewing her labs, no new labs from this morning. 06/09/2020 Patient is currently lying in the bed comfortably. Still having exertional dyspnea. Decreased wheezing on examination. No complaints of fever or chills. Does have cough without sputum production. Neck and now complains of nausea vomiting or abdominal pain. No diarrhea or dysuria. Patient has been afebrile. Pulmonary is following. Continued on IV steroids and breathing treatments and Symbicort. Current medications reviewed. Objective - Vital Signs Vital signs: Vital Signs Temp 98.6 F 06/09/20 15:00 Pulse 78 06/09/20 20:00 Resp 18 06/09/20 15:00 BP 143/70 06/09/20 15:00 Pulse Ox 96 06/09/20 02:38 Intake & Output 06/09/20 06/09/20 06/10/20 06:59 18:59 06:59 Intake Total 750 Balance 750 Intake: Oral 750 Other: Voiding Method Toilet Toilet # Voids 1 1 - Exam GENERAL: appears to be in no acute distress. HEENT: Pupils are round and equally reacting to light. EOMI. no scleral icterus. No conjunctival pallor. CARDIOVASCULAR: Irregularly irregular, S1 and S2 heard. No additional sounds. PULMONARY: Still has Expiratory wheezing in all lung coles ABDOMEN: Soft, nontender, nondistended, normoactive bowel sounds. MUSCULOSKELETAL: No joint swelling or deformity. EXTREMITIES: No cyanosis, clubbing, or pedal edema. NEUROLOGICAL: Alert awake oriented 3, Gross neurological examination did not reveal any focal deficits. SKIN: No rash - Labs CBC & Chem 7: 06/09/20 08:45 06/09/20 08:45 Labs: Abnormal Lab Results - Last 24 Hours (Table) 06/09/20 06/09/20 Range/Units 08:45 08:45 MCH 24.9 L (25.0-35.0) pg MCHC 30.0 L (31.0-37.0) g/dL RDW 16.6 H (11.5-15.5) % Lymphocytes # 0.3 L (1.0-4.8) k/uL Sodium 136 L (137-145) mmol/L BUN 24 H (7-17) mg/dL Glucose 172 H (74-99) mg/dL Microbiology - Last 24 Hours (Table) 06/07/20 08:15 Gram Stain - Final Sputum Sputum Culture - Final Assessment and Plan Assessment: Acute on chronic hypoxic respiratory failure Acute COPD exacerbation Leukocytosis- due to steroids History of atrial fibrillation on anticoagulation with Eliquis History of CVA/TIA Brain aneurysm clipped in 2000 Chronic low back pain Left rotator cuff tear H/o Spinal lumbar fusion PLAN: Continue the patient on IV Solu-Medrol, doxycycline and breathing treatments as she is still wheezing. Singulair has been added to her regimen and she showed significant improvement in her symptoms, but still wheezing. Patient showed mild leukocytosis, could be due to the addition of steroids .Continue with the rest of her current medication regimen. DVT prophylaxis patient is on Eliquis. Further recommendations to follow depending on the progress of the patient. Time with Patient: Greater than 30
[2020-06-10] MEDS: ACETAMINOPHEN TAB 325 MG TAB PO PRN (14:06)
--- NOTE | 2020-06-10 14:10 | XR ---
EXAMINATION TYPE: XR knee complete LT DATE OF EXAM: 06/10/2020 COMPARISON: NONE HISTORY: Knee pain TECHNIQUE: 3 views FINDINGS: There is no evidence of fracture nor dislocation. Joint spaces are normal. There is no sign of joint effusion. IMPRESSION: Negative left knee exam.
[2020-06-10] MEDS: MONTELUKAST 10 MG TAB PO SCH (22:07)
[2020-06-10] MEDS: tiZANidine 4 MG TAB PO PRN (22:07)
--- NOTE | 2020-06-10 23:40 | P.PN ---
Subjective Progress Note Date: 06/10/20 Principal diagnosis: Acute on chronic hypoxic respiratory failure Acute COPD exacerbation Mrs. Bhatt is a 64-year-old female with a past medical history of asthma, COPD, atrial fibrillation on anticoagulation coming into the hospital with a chief complaint of difficulty in breathing. Patient states that she is on 2 L of home oxygen but since November of this year she could not get refills on her oxygen so stopped using it. She states that she has been okay until one week back when she started to have mild difficulty in breathing that progressively worsened. Patient states during this time of the year her asthma flares up and she thinks it is one of those episodes. She denies having any chest pains. Patient denies having any fevers chills or rigors. No cough. No exposure to COVID 19 patients. Patient denies having any orthopnea, PND or lower extremity swelling. Patient also reports that she has been off of all her medications for the past 5 days. Patient denies having any abdominal pain nausea vomiting or diarrhea. No headaches, changes in her vision or neck aches. She denies having any weakness in her extremities. In the emergency room patient had EKG - normal sinus rhythm with right bundle branch block, stable from previous EKG done in September 2019 and chest x-ray done showing- chronic changes without new acute pulmonary process. On 06/06/20 - Patient is sitting up in the bed. She states that she is having a lot of productive cough. Denies having any hemoptysis. Denies having any chills or fevers. Her difficulty in breathing is slightly worse compared to yesterday. On review of other systems patient denies having any chest pain or palpitations. No abdominal pain nausea vomiting or diarrhea. No dysuria or hematuria. On reviewing the vitals patient's saturations are above 90 with 2 L of nasal cannula, heart rate around 80s, T-max 98.2. No new labs from this morning. She is tested negative for COVID-19. On 06/07/2020- patient is sitting up in the bed. She states that her cough is much better compared to yesterday, and states that difficulty in breathing is improved after adding Singulair. Patient denies having any chest pain or palpitations. No abdominal pain nausea vomiting or diarrhea. No dysuria or hematuria. On reviewing the vitals patient has been saturating above 94 with 2 L of oxygen, blood pressure 10 2 x 54, T-max 97.0. Labs from this morning show slight increase in white count to 13.5, hemoglobin stable around 13.2 and electrolytes within normal limits. On 06/08/2020- patient is sitting up in the bed appears to be in no acute distress. She states that her cough and difficulty in breathing are better but not back to her baseline yet. Patient denies having any chest pain or palpitations. No abdominal pain nausea vomiting or diarrhea. No dysuria or hematuria. She has been maintaining oxygen saturation about 96 on 2 L of nasal cannula, T-max afebrile in the past 24 hours, heart rate 70s to 80s. On reviewing her labs, no new labs from this morning. 06/09/2020 Patient is currently lying in the bed comfortably. Still having exertional dyspnea. Decreased wheezing on examination. No complaints of fever or chills. Does have cough without sputum production. Neck and now complains of nausea vomiting or abdominal pain. No diarrhea or dysuria. Patient has been afebrile. Pulmonary is following. Continued on IV steroids and breathing treatments and Symbicort. 06/10/2020 Patient is currently resting in the bed. Still having exertional dyspnea when g etting to the bathroom. Diffuse wheezing on exam. No fever no chills. No complaints of chest pain. No nausea vomiting or abdominal pain or diarrhea. No headache or dizziness. Patient is being continued on IV steroids, antibiotics, Symbicort and duo nebs. Pulmonary is following. Current medications reviewed. Objective - Vital Signs Vital signs: Vital Signs Temp 98.3 F 06/10/20 14:11 Pulse 86 06/10/20 15:22 Resp 16 06/10/20 15:00 BP 142/65 06/10/20 14:11 Pulse Ox 97 06/10/20 15:08 Intake & Output 06/09/20 06/10/20 06/10/20 18:59 06:59 18:59 Intake Total 750 450 400 Balance 750 450 400 Intake: Oral 750 450 400 Other: Voiding Method Toilet Toilet # Voids 1 1 2 - Exam GENERAL: appears to be in no acute distress. HEENT: Pupils are round and equally reacting to light. EOMI. no scleral icterus. No conjunctival pallor. CARDIOVASCULAR: Irregularly irregular, S1 and S2 heard. No additional sounds. PULMONARY: Still has Expiratory wheezing in all lung coles ABDOMEN: Soft, nontender, nondistended, normoactive bowel sounds. MUSCULOSKELETAL: No joint swelling or deformity. EXTREMITIES: No cyanosis, clubbing, or pedal edema. NEUROLOGICAL: Alert awake oriented 3, Gross neurological examination did not reveal any focal deficits. SKIN: No rash - Labs CBC & Chem 7: 06/09/20 08:45 06/09/20 08:45 Assessment and Plan Assessment: Acute on chronic hypoxic respiratory failure Acute COPD exacerbation Leukocytosis- due to steroids History of atrial fibrillation on anticoagulation with Eliquis History of CVA/TIA Brain aneurysm clipped in 2000 Chronic low back pain Left rotator cuff tear H/o Spinal lumbar fusion PLAN: Continue the patient on IV Solu-Medrol, doxycycline and breathing treatments as she is still wheezing. Singulair has been added to her regimen and she showed significant improvement in her symptoms, but still wheezing. Patient showed mild leukocytosis, could be due to the addition of steroids .Continue with the rest of her current medication regimen. DVT prophylaxis patient is on Eliquis. Further recommendations to follow depending on the progress of the patient.
[2020-06-11 05:39] LABS: Basophils % (A) 0 %; Eosinophils # (A) 0.1 k/uL (0-0.7); Eosinophils % (A) 1 %; HCT 43.4 % (34.0-46.0); HGB 13.2 gm/dL (11.4-16.0); Hypochromasia Marked; Lymphocytes # (A) 0.4 k/uL (1.0-4.8); Lymphocytes % (A) 4 %; MCH 25.9 pg (25.0-35.0); MCHC 30.5 g/dL (31.0-37.0); MCV 84.9 fL (80.0-100.0); Monocytes # (A) 0.3 k/uL (0-1.0); Monocytes % (A) 3 %; Neutrophils % (A) 91 %; Platelet Count 205 k/uL (150-450); RBC 5.11 m/uL (3.80-5.40); RDW 15.8 % (11.5-15.5); WBC 8.8 k/uL (3.8-10.6)
[2020-06-11 05:46] LABS: African American GFR (CKD) >90 (>60 ml/min/1.73 sqM); Anion Gap 5 mmol/L; Blood Urea Nitrogen 26 mg/dL (7-17); Calcium 9.6 mg/dL (8.4-10.2); Carbon Dioxide 29 mmol/L (22-30); Chloride 103 mmol/L (98-107); Glucose 140 mg/dL (74-99); Non-African American GFR(CKD) 86 (>60 ml/min/1.73 sqM); Sodium 137 mmol/L (137-145)
[2020-06-11] MEDS: methylPREDNISolone SOD SUCCI 125 MG/2 ML VIAL IV SCH ×2 (05:54→12:23)
[2020-06-11] MEDS: IPRATROPIUM-ALBUTEROL 3 ML NEB INHALATION SCH ×5 (06:05→19:00)
[2020-06-11] MEDS: AMIODARONE 200 MG TAB PO SCH ×2 (08:24→21:28)
[2020-06-11] MEDS: ASPIRIN 81 MG PO SCH (08:24)
[2020-06-11] MEDS: DOXYCYCLINE 100 MG CAP PO SCH ×2 (08:24→21:29)
[2020-06-11] MEDS: APIXABAN 5 MG TAB PO SCH ×2 (08:24→21:28)
[2020-06-11] MEDS: SYMBICORT 160-4.5 MCG INHALER INHALATION SCH ×2 (08:28→19:01)
--- NOTE | 2020-06-11 14:30 | P.PN ---
Subjective 64-year-old female was admitted with COPD exacerbation patient is still having significant wheezing on exam. Patient has elevated potassium will repeat the potassium was continues to have you so capsulate. Patient will be continued on steroids but will cut down the dose of steroids to 40 twice a day IV. Constitutional: Is coming of generalized weakness and fatigue Cardio vascular: denied any chest pain, palpitations Gastrointestinal denied any nausea vomiting Pulmonary: Denied any shortness of breath cough Neurologic denied any new focal deficits All inpatient medications were reviewed and appropriate changes in these medications as dictated in the interval history and assessment and plan. Objective - Vital Signs Vital signs: Vital Signs Temp 97.4 F L 06/11/20 09:00 Pulse 78 06/11/20 12:01 Resp 20 06/11/20 09:00 BP 123/62 06/11/20 09:00 Pulse Ox 87 L 06/11/20 14:00 Intake & Output 06/10/20 06/11/20 06/11/20 18:59 06:59 18:59 Intake Total 400 800 360 Balance 400 800 360 Intake: Oral 400 800 360 Other: Voiding Method Toilet Toilet Toilet # Voids 2 1 1 - Exam PHYSICAL EXAMINATION: GENERAL: The patient is alert and oriented x3, not in any acute distress. Well developed, well nourished. HEENT: Pupils are round and equally reacting to light. EOMI. No scleral icterus. No conjunctival pallor. Normocephalic, atraumatic. No pharyngeal erythema. No thyromegaly. CARDIOVASCULAR: S1 and S2 present. No murmurs, rubs, or gallops. PULMONARY: Chest is clear to auscultation, no wheezing or crackles. ABDOMEN: Soft, nontender, nondistended, normoactive bowel sounds. No palpable organomegaly. MUSCULOSKELETAL: No joint swelling or deformity. EXTREMITIES: No cyanosis, clubbing, or pedal edema. NEUROLOGICAL: Gross neurological examination did not reveal any focal deficits. SKIN: No rashes. - Labs CBC & Chem 7: 06/11/20 05:23 06/11/20 12:37 Labs: Abnormal Lab Results - Last 24 Hours (Table) 06/11/20 06/11/20 Range/Units 05:23 05:23 MCHC 30.5 L (31.0-37.0) g/dL RDW 15.8 H (11.5-15.5) % Neutrophils # 8.0 H (1.3-7.7) k/uL Lymphocytes # 0.4 L (1.0-4.8) k/uL Potassium 6.0 H (3.5-5.1) mmol/L BUN 26 H (7-17) mg/dL Glucose 140 H (74-99) mg/dL Assessment and Plan Plan: Assessment and Plan Assessment: Acute on chronic hypoxic and hypercapnic respiratory failure secondary to COPD exacerbation Acute COPD exacerbation Leukocytosis- due to steroids History of atrial fibrillation on anticoagulation with Eliquis History of CVA/TIA Brain aneurysm clipped in 2000 Chronic low back pain Left rotator cuff tear H/o Spinal lumbar fusion PLAN: Continue the patient on IV Solu-Medrol, doxycycline and breathing treatments as she is still wheezing. Singulair has been added to her regimen and she showed significant improvement in her symptoms, but still wheezing. P atient showed mild leukocytosis, could be due to steroids .Continue with the rest of her current medication regimen. DVT prophylaxis patient is on Eliquis. Further recommendations to follow depending on the progress of the patient.
[2020-06-11] MEDS: methylPREDNISolone SOD SUCCI 40 MG/ML 1 ML VIAL IV SCH (21:28)
[2020-06-11] MEDS: MONTELUKAST 10 MG TAB PO SCH (21:28)
[2020-06-11] MEDS: tiZANidine 4 MG TAB PO PRN (22:00)
[2020-06-11] MEDS: IPRATROPIUM-ALBUTEROL 3 ML NEB INHALATION PRN (23:21)
[2020-06-12] MEDS: IPRATROPIUM-ALBUTEROL 3 ML NEB INHALATION PRN (03:34)
[2020-06-12] MEDS: APIXABAN 5 MG TAB PO SCH ×2 (08:25→17:56)
[2020-06-12] MEDS: ASPIRIN 81 MG PO SCH (08:25)
[2020-06-12] MEDS: methylPREDNISolone SOD SUCCI 40 MG/ML 1 ML VIAL IV SCH (08:25)
[2020-06-12] MEDS: DOXYCYCLINE 100 MG CAP PO SCH (08:26)
[2020-06-12] MEDS: AMIODARONE 200 MG TAB PO SCH ×2 (08:26→17:56)
[2020-06-12] MEDS: IPRATROPIUM-ALBUTEROL 3 ML NEB INHALATION SCH ×3 (09:43→15:27)
[2020-06-12] MEDS: SYMBICORT 160-4.5 MCG INHALER INHALATION SCH (09:44)
[2020-06-12 14:16] VITALS: BP 137/65; TEMP 98.2
--- NOTE | 2020-06-12 15:21 | P.DS ---
Providers Date of admission: 06/07/20 09:59 Attending physician: Genesis Smith Consults: 06/06/20 14:22 Consult Physician Routine Consulting Provider: oDminic Mercado Consult Reason/Comments: copd short of breath Do you want consulting provider notified?: Yes Primary care physician: Marino David [facility] Course: 64-year-old female was admitted with COPD exacerbation patient is still having significant wheezing on exam. Patient has elevated potassium will repeat the potassium was continues to have you so capsulate. Patient will be continued on steroids but will cut down the dose of steroids to 40 twice a day IV. 06/12/2020 Patient is still wheezing probably this is her baseline, will ablate the patient and if she is doing feeling better patient will be discharged today patient although overall feels much better today. PHYSICAL EXAMINATION: GENERAL: The patient is alert and oriented x3, not in any acute distress. Well developed, well nourished. HEENT: Pupils are round and equally reacting to light. EOMI. No scleral icterus. No conjunctival pallor. Normocephalic, atraumatic. No pharyngeal erythema. No thyromegaly. CARDIOVASCULAR: S1 and S2 present. No murmurs, rubs, or gallops. PULMONARY: Chest is clear to auscultation, no wheezing or crackles. ABDOMEN: Soft, nontender, nondistended, normoactive bowel sounds. No palpable organomegaly. MUSCULOSKELETAL: No joint swelling or deformity. EXTREMITIES: No cyanosis, clubbing, or pedal edema. NEUROLOGICAL: Gross neurological examination did not reveal any focal deficits. SKIN: No rashes. Assessment and Plan Assessment: Acute on chronic hypoxic and hypercapnic respiratory failure secondary to COPD exacerbation Acute COPD exacerbation Leukocytosis- due to steroids History of atrial fibrillation on anticoagulation with Eliquis History of CVA/TIA Brain aneurysm clipped in 2000 Chronic low back pain Left rotator cuff tear H/o Spinal lumbar fusion -Hyperkalemia etiology is not clear probably lab her resolved without treatment Plan - Discharge Summary New Discharge Prescriptions: New predniSONE 10 mg PO DAILY #30 tab Famotidine [Pepcid] 20 mg PO BID #30 tablet No Action Montelukast [Singulair] 10 mg PO HS Ipratropium-Albuterol Nebulize [Duoneb 0.5 mg-3 mg/3 ml Soln] 3 ml INHALATION RT-QID Umeclidinium [place] [Incruse Ellipta] 1 puff INHALATION RT-DAILY Apixaban [Eliquis] 5 mg PO BID tiZANidine [Zanaflex] 4 mg PO HS PRN PRN Reason: Pain Aspirin 81 mg PO DAILY #30 chew Amiodarone [Cordarone] 200 mg PO BID #30 tab Fluticasone/Salmeterol [Fluticasone-Salmeterol 113-14] 2 puff INHALATION RT- BID Discharge Medication List Montelukast [Singulair] 10 mg PO HS 02/15/19 [History] Ipratropium-Albuterol Nebulize [Duoneb 0.5 mg-3 mg/3 ml Soln] 3 ml INHALATION RT-QID 03/28/19 [History] Umeclidinium [place] [Incruse Ellipta] 1 puff INHALATION RT-DAILY 03/28/19 [History] Apixaban [Eliquis] 5 mg PO BID 08/13/19 [History] tiZANidine [Zanaflex] 4 mg PO HS PRN 10/19/19 [History] Amiodarone [Cordarone] 200 mg PO BID #30 tab 10/21/19 [Rx] Aspirin 81 mg PO DAILY #30 chew 10/21/19 [Rx] Fluticasone/Salmeterol [Fluticasone-Salmeterol 113-14] 2 puff INHALATION RT-BID 06/05/20 [History] Famotidine [Pepcid] 20 mg PO BID #30 tablet 06/12/20 [Rx] predniSONE 10 mg PO DAILY #30 tab 06/12/20 [Rx] Follow up Appointment(s)/Referral(s): [facility] [NON-STAFF] - Frankie Pichardo MD [Primary Care Provider] - 3 Days Discharge Disposition: HOME SELF-CARE
[2020-06-12 15:28] VITALS: PULSE 88; RESP 18
[2020-06-12] MEDS: MONTELUKAST 10 MG TAB PO SCH (17:56)
== END 2020-06-12 18:30 | disposition home or self-care (01) | DRG 190 ==
LOC: EC 10:11 → 1SOBS 11:48 → OBSVTOIN 06-07 09:59
PROVIDERS: ADMIT Internal Medicine; ATTEND Internal Medicine
DX: J44.1 Chronic obstructive pulmonary disease with (acute) exacerbation (principal); J96.22 Acute and chronic respiratory failure with hypercapnia; J96.21 Acute and chronic respiratory failure with hypoxia; Z20.828 Contact with and (suspected) exposure to other viral communicable diseases; I25.10 Atherosclerotic heart disease of native coronary artery without angina pectoris; I10 Essential (primary) hypertension; F41.9 Anxiety disorder, unspecified; F32.9 Major depressive disorder, single episode, unspecified; F17.200 Nicotine dependence, unspecified, uncomplicated; E78.5 Hyperlipidemia, unspecified; M19.90 Unspecified osteoarthritis, unspecified site; J45.909 Unspecified asthma, uncomplicated; J30.2 Other seasonal allergic rhinitis; I48.0 Paroxysmal atrial fibrillation; J20.9 Acute bronchitis, unspecified; J44.0 Chronic obstructive pulmonary disease with (acute) lower respiratory infection; G89.29 Other chronic pain; T38.0X5A Adverse effect of glucocorticoids and synthetic analogues, initial encounter; M75.102 Unspecified rotator cuff tear or rupture of left shoulder, not specified as traumatic; M54.5 Low back pain; M41.9 Scoliosis, unspecified; Z98.1 Arthrodesis status; Z98.51 Tubal ligation status; Z79.82 Long term (current) use of aspirin; I25.2 Old myocardial infarction; Z79.51 Long term (current) use of inhaled steroids; Z79.01 Long term (current) use of anticoagulants; Z79.899 Other long term (current) drug therapy; Z88.6 Allergy status to analgesic agent; Z88.1 Allergy status to other antibiotic agents; Z88.2 Allergy status to sulfonamides; Z99.81 Dependence on supplemental oxygen; Z98.890 Other specified postprocedural states; Z83.3 Family history of diabetes mellitus; Z82.49 Family history of ischemic heart disease and other diseases of the circulatory system; Z86.73 Personal history of transient ischemic attack (TIA), and cerebral infarction without residual deficits
CPT/HCPCS: 36415; 71046; 80048; 80053; 83880; 84132; 84484; 85025; 85610; 85730; 87070; 87205; 93005; 94640; 94667; 94760; 96374; 99285

== ENCOUNTER 2020-08-04 18:13 | Inpatient (IN) | payer OTHER ==
--- NOTE | 2020-08-04 19:39 | ED ---
SOB HPI - General Chief Complaint: Shortness of Breath Stated Complaint: SOB Time Seen by Provider: 08/04/20 18:20 Source: patient Mode of arrival: wheelchair Limitations: no limitations - History of Present Illness Initial Comments: Patient is a 65-year-old female who presents emergency room with reported shortness of breath. She does have a history of COPD and is oxygen dependent. Normally wears 2 L oxygen at home. Sees Dr. Berry in the outpatient setting. Reports her last hospitalization was in May. Reports that over the past week she has had worsening shortness of breath. Breathing is worse when she exerts herself. States that she is out of her DuoNeb medication at home so she has been unable to do her treatments. Reports to a mild nonproductive cough. No sick contacts or similar symptoms. Denies any fevers or chills. No nausea or vomiting. Denies any chest pain. No history of congestive heart failure. No lower extremity edema. She does take eliquis. Denies history of DVT or PE. No other alleviating, precipitating or modifying factors - Related Data Home Medications Medication Instructions Recorded Confirmed Famotidine [Pepcid] 20 mg PO BID PRN 08/04/20 08/04/20 tiZANidine [Zanaflex] 4 mg PO HS 08/04/20 08/04/20 Previous Rx's Medication Instructions Recorded Amiodarone [Cordarone] 200 mg PO BID 30 Days #60 tab 06/12/20 Apixaban [Eliquis] 5 mg PO BID 30 Days #60 tab 06/12/20 Ipratropium-Albuterol Nebulize 3 ml INHALATION RT-QID ml 06/12/20 [Duoneb 0.5 mg-3 mg/3 ml Soln] Montelukast [Singulair] 10 mg PO HS 30 Days #30 tab 06/12/20 Umeclidinium [place] [Incruse 1 puff INHALATION RT-DAILY 30 Days 06/12/20 Ellipta] #1 device Levofloxacin [Levaquin] 750 mg PO DAILY #4 tab 08/08/20 predniSONE 10 mg PO DAILY #30 tab 08/08/20 Budesonide-Formot 160-4.5 Mcg 2 puff INHALATION BID 30 Days #1 08/10/20 [Symbicort 160-4.5 Mcg Inhaler] inhaler Theophylline 24 Hour [Damien-24] 200 mg PO DAILY 30 Days #30 08/10/20 cap.er.24h Allergies Allergy/AdvReac Type Severity Reaction Status Date / Time naproxen [From Naprosyn] Allergy Anaphylaxis Verified 08/04/20 21:03 Sulfa (Sulfonamide Allergy Anaphylaxis Verified 08/04/20 21:03 Antibiotics) azithromycin [From Zithromax] AdvReac does not Verified 08/04/20 21:03 take due to A-Fib Review of Systems ROS Statement: Those systems with pertinent positive or pertinent negative responses have been documented in the HPI. ROS Other: All systems not noted in ROS Statement are negative. Past Medical History Past Medical History: Atrial Fibrillation, Asthma, COPD, CVA/TIA, Myocardial Infarction (DC), Osteoarthritis (OA) Additional Past Medical History / Comment(s): Brain aneurysum that is clipped 2001 HF, home oxygen at 2L/NC ATC, arthritis in several joints, chronic low back pain which involves L leg-numbness/tingling, scoliosis, seasonal allergies. Last Myocardial Infarction Date:: 10/19/2019 History of Any Multi-Drug Resistant Organisms: None Reported Past Surgical History: Orthopedic Surgery, Tubal Ligation Additional Past Surgical History / Comment(s): Brain aneurysum that is clipped, left shoulder rotator cuff repair, spine lumbar disc 3x fused Past Anesthesia/Blood Transfusion Reactions: No Reported Reaction Past Psychological History: Anxiety, Depression Smoking Status: Former smoker Past Alcohol Use History: None Reported Past Drug Use History: None Reported - Past Family History Father Family Medical History: Coronary Artery Disease (CAD), Diabetes Mellitus Additional Family Medical History / Comment(s): Father had 3 vessel CABG. He at the age of 69 from heart disease. Mother Family Medical History: Myocardial Infarction (DC) Additional Family Medical History / Comment(s): Mother of a DC at the age of 42 yrs. General Exam Limitations: no limitations General appearance: alert, in no apparent distress Head exam: Present: atraumatic, normocephalic, normal inspection Eye exam: Present: normal appearance, PERRL, EOMI. Absent: scleral icterus, conjunctival injection, periorbital swelling ENT exam: Present: normal exam, mucous membranes moist Neck exam: Present: normal inspection. Absent: tenderness, meningismus, lymphadenopathy Respiratory exam: Present: wheezes, accessory muscle use, decreased breath sounds, other (conversational dyspnea). Absent: respiratory distress, rales, r honchi, stridor Cardiovascular Exam: Present: regular rate, normal rhythm, normal heart sounds. Absent: systolic murmur, diastolic murmur, rubs, gallop, clicks GI/Abdominal exam: Present: soft, normal bowel sounds. Absent: distended, tenderness, guarding, rebound, rigid Extremities exam: Present: normal inspection, full ROM, normal capillary refill. Absent: tenderness, pedal edema, joint swelling, calf tenderness Back exam: Present: normal inspection Neurological exam: Present: alert, oriented X3, CN II-XII intact Psychiatric exam: Present: normal affect, normal mood Skin exam: Present: warm, dry, intact, normal color. Absent: rash Course Vital Signs 08/04/20 08/04/20 08/04/20 18:19 20:35 20:41 Temperature 98.4 F Pulse Rate 88 69 88 Respiratory 22 Rate Blood Pressure 194/85 O2 Sat by Pulse 98 Oximetry 08/04/20 21:20 Temperature Pulse Rate 64 Respiratory 20 Rate Blood Pressure 160/77 O2 Sat by Pulse 95 Oximetry Medical Decision Making - Medical Decision Making Upon arrival the patient is placed into room 1. A thorough history and physical exam was performed. Patient does have conversational dyspnea. She was provided with a DuoNeb breathing treatment. Periphery is established patient is given 125 of Solu-Medrol and 1 g of magnesium. Lavatory says her conducted. Patient went for chest x-ray which does demonstrate a possible pneumonia in the lingula left upper lobe. Because the patient's reported symptoms of increased shortness of breath and cough she is given a dose of Rocephin. She does have an ALLERGY to azithromycin. Patient continues to be conversational dyspneic with x-ray wheezing and therefore did recommend overnight observation for which patient did agree. Discussed case with Al from [facility] [place] who agreed to admit the patient. I will consult pulmonology. Patient remained in stable condition awaiting a bed on the floor - Lab Data Result diagrams: 08/05/20 06:38 08/05/20 06:38 Lab Results 08/04/20 08/04/20 08/04/20 Range/Units 20:03 20:03 20:03 WBC 9.1 (3.8-10.6) k/uL RBC 4.94 (3.80-5.40) m/uL Hgb 13.2 (11.4-16.0) gm/dL Hct 41.9 (34.0-46.0) % MCV 84.8 (80.0-100.0) fL MCH 26.7 (25.0-35.0) pg MCHC 31.4 (31.0-37.0) g/dL RDW 16.9 H (11.5-15.5) % Plt Count 274 (150-450) k/uL Neutrophils % 81 % Lymphocytes % 11 % Monocytes % 7 % Eosinophils % 1 % Basophils % 0 % Neutrophils # 7.3 (1.3-7.7) k/uL Lymphocytes # 1.0 (1.0-4.8) k/uL Monocytes # 0.6 (0-1.0) k/uL Eosinophils # 0.1 (0-0.7) k/uL Basophils # 0.0 (0-0.2) k/uL Hypochromasia Anisocytosis Slight PT 10.0 (9.0-12.0) sec INR 1.0 (<1.2) APTT 22.2 (22.0-30.0) sec Sodium 137 (137-145) mmol/L Potassium 4.6 (3.5-5.1) mmol/L Chloride 103 (98-107) mmol/L Carbon Dioxide 29 (22-30) mmol/L Anion Gap 5 mmol/L BUN 20 H (7-17) mg/dL Creatinine 0.87 (0.52-1.04) mg/dL Est GFR (CKD-EPI)AfAm 82 (>60 ml/min/1.73 sqM) Est GFR (CKD-EPI)NonAf 71 (>60 ml/min/1.73 sqM) Glucose 117 H (74-99) mg/dL Plasma Lactic Acid Jack (0.7-2.0) mmol/L Calcium 9.7 (8.4-10.2) mg/dL Total Bilirubin 0.4 (0.2-1.3) mg/dL AST 22 (14-36) U/L ALT 26 (4-34) U/L Alkaline Phosphatase 73 (38-126) U/L Troponin I (0.000-0.034) ng/mL NT-Pro-B Natriuret Pep pg/mL Total Protein 6.5 (6.3-8.2) g/dL Albumin 3.9 (3.5-5.0) g/dL 08/04/20 08/04/20 08/04/20 Range/Units 20:03 20:03 20:03 WBC (3.8-10.6) k/uL RBC (3.80-5.40) m/uL Hgb (11.4-16.0) gm/dL Hct (34.0-46.0) % MCV (80.0-100.0) fL MCH (25.0-35.0) pg MCHC (31.0-37.0) g/dL RDW (11.5-15.5) % Plt Count (150-450) k/uL Neutrophils % % Lymphocytes % % Monocytes % % Eosinophils % % Basophils % % Neutrophils # (1.3-7.7) k/uL Lymphocytes # (1.0-4.8) k/uL Monocytes # (0-1.0) k/uL Eosinophils # (0-0.7) k/uL Basophils # (0-0.2) k/uL Hypochromasia Anisocytosis PT (9.0-12.0) sec INR (<1.2) APTT (22.0-30.0) sec Sodium (137-145) mmol/L Potassium (3.5-5.1) mmol/L Chloride (98-107) mmol/L Carbon Dioxide (22-30) mmol/L Anion Gap mmol/L BUN (7-17) mg/dL Creatinine (0.52-1.04) mg/dL Est GFR (CKD-EPI)AfAm (>60 ml/min/1.73 sqM) Est GFR (CKD-EPI)NonAf (>60 ml/min/1.73 sqM) Glucose (74-99) mg/dL Plasma Lactic Acid Jack 0.9 (0.7-2.0) mmol/L Calcium (8.4-10.2) mg/dL Total Bilirubin (0.2-1.3) mg/dL AST (14-36) U/L ALT (4-34) U/L Alkaline Phosphatase (38-126) U/L Troponin I <0.012 (0.000-0.034) ng/mL NT-Pro-B Natriuret Pep 482 pg/mL Total Protein (6.3-8.2) g/dL Albumin (3.5-5.0) g/dL 08/05/20 08/05/20 Range/Units 06:38 06:38 WBC 7.8 (3.8-10.6) k/uL RBC 4.79 (3.80-5.40) m/uL Hgb 12.8 (11.4-16.0) gm/dL Hct 41.1 (34.0-46.0) % MCV 85.7 (80.0-100.0) fL MCH 26.8 (25.0-35.0) pg MCHC 31.2 (31.0-37.0) g/dL RDW 17.0 H (11.5-15.5) % Plt Count 252 (150-450) k/uL Neutrophils % 89 % Lymphocytes % 8 % Monocytes % 2 % Eosinophils % 0 % Basophils % 0 % Neutrophils # 6.9 (1.3-7.7) k/uL Lymphocytes # 0.7 L (1.0-4.8) k/uL Monocytes # 0.2 (0-1.0) k/uL Eosinophils # 0.0 (0-0.7) k/uL Basophils # 0.0 (0-0.2) k/uL Hypochromasia Slight Anisocytosis Slight PT (9.0-12.0) sec INR (<1.2) APTT (22.0-30.0) sec Sodium 136 L (137-145) mmol/L Potassium 4.6 (3.5-5.1) mmol/L Chloride 101 (98-107) mmol/L Carbon Dioxide 30 (22-30) mmol/L Anion Gap 5 mmol/L BUN 20 H (7-17) mg/dL Creatinine 0.75 (0.52-1.04) mg/dL Est GFR (CKD-EPI)AfAm >90 (>60 ml/min/1.73 sqM) Est GFR (CKD-EPI)NonAf 85 (>60 ml/min/1.73 sqM) Glucose 142 H (74-99) mg/dL Plasma Lactic Acid Jack (0.7-2.0) mmol/L Calcium 9.2 (8.4-10.2) mg/dL Total Bilirubin (0.2-1.3) mg/dL AST (14-36) U/L ALT (4-34) U/L Alkaline Phosphatase (38-126) U/L Troponin I (0.000-0.034) ng/mL NT-Pro-B Natriuret Pep pg/mL Total Protein (6.3-8.2) g/dL Albumin (3.5-5.0) g/dL Disposition Clinical Impression: COPD (chronic obstructive pulmonary disease), COPD exacerbation, CAP (community acquired pneumonia) Disposition: ADMITTED IP TO THIS HOSP Condition: Stable Is patient prescribed a controlled substance at d/c from ED?: No Decision to Admit Reason: Admit from EC Decision Date: 08/04/20 Decision Time: 21:00
[2020-08-04] MEDS ORDERED: MAGNESIUM SULFATE-D5W PMX 1 GM in DEXTROSE/WATER 1 100ML.BAG IVPB ONE (19:51)
[2020-08-04] MEDS ORDERED: methylPREDNISolone SOD SUCCI 125 MG/2 ML VIAL IV STA (19:51)
[2020-08-04 20:25] LABS: Anisocytosis Slight; Basophils % (A) 0 %; Eosinophils # (A) 0.1 k/uL (0-0.7); Eosinophils % (A) 1 %; HCT 41.9 % (34.0-46.0); HGB 13.2 gm/dL (11.4-16.0); Lymphocytes % (A) 11 %; MCH 26.7 pg (25.0-35.0); MCHC 31.4 g/dL (31.0-37.0); MCV 84.8 fL (80.0-100.0); Mean Platelet Volume 6.9; Monocytes # (A) 0.6 k/uL (0-1.0); Monocytes % (A) 7 %; Neutrophils # (A) 7.3 k/uL (1.3-7.7); Neutrophils % (A) 81 %; Platelet Count 274 k/uL (150-450); RBC 4.94 m/uL (3.80-5.40); RDW 16.9 % (11.5-15.5); WBC 9.1 k/uL (3.8-10.6)
--- NOTE | 2020-08-04 20:26 | XR ---
EXAMINATION TYPE: XR chest 2V DATE OF EXAM: 08/04/2020 COMPARISON: 06/05/2020 HISTORY: Difficulty breathing TECHNIQUE: 2 views FINDINGS: Heart is normal. There is a small infiltrate in the lingula left upper lobe. The other lung coles are clear. There are chest leads. Bony thorax is intact. IMPRESSION: There is a mild pneumonia in the lingula left upper lobe that is mostly new compared to o ld exam.
[2020-08-04 20:36] LABS: Albumin 3.9 g/dL (3.5-5.0); Calcium 9.7 mg/dL (8.4-10.2); Potassium 4.6 mmol/L (3.5-5.1); Total Bilirubin 0.4 mg/dL (0.2-1.3); Total Protein 6.5 g/dL (6.3-8.2)
[2020-08-04 20:37] LABS: Partial Thromboplastin Time 22.2 sec (22.0-30.0)
[2020-08-04] MEDS ORDERED: cefTRIAXone IN SWFI 1,000 MG/10 ML SYRINGE IVP STA (20:58)
[2020-08-04] MEDS ORDERED: NALOXONE 0.4 MG/ML 1 ML VIAL IV PRN (21:00)
[2020-08-04] MEDS ORDERED: FAMOTIDINE 20 MG TAB PO PRN (23:00)
[2020-08-04] MEDS: MONTELUKAST 10 MG TAB PO SCH (23:32)
[2020-08-04] MEDS: tiZANidine 4 MG TAB PO SCH (23:32)
[2020-08-05] MEDS ORDERED: IPRATROPIUM-ALBUTEROL 3 ML NEB INHALATION SCH
[2020-08-05] MEDS: methylPREDNISolone SOD SUCCI 40 MG/ML 1 ML VIAL IV SCH ×2 (02:34→07:35)
[2020-08-05] MEDS: IPRATROPIUM-ALBUTEROL 3 ML NEB INHALATION SCH ×4 (07:01→19:49)
[2020-08-05 08:12] LABS: Anisocytosis Slight; Basophils % (A) 0 %; Eosinophils % (A) 0 %; HCT 41.1 % (34.0-46.0); HGB 12.8 gm/dL (11.4-16.0); Hypochromasia Slight; Lymphocytes # (A) 0.7 k/uL (1.0-4.8); Lymphocytes % (A) 8 %; MCH 26.8 pg (25.0-35.0); MCHC 31.2 g/dL (31.0-37.0); MCV 85.7 fL (80.0-100.0); Monocytes # (A) 0.2 k/uL (0-1.0); Monocytes % (A) 2 %; Neutrophils # (A) 6.9 k/uL (1.3-7.7); Neutrophils % (A) 89 %; Platelet Count 252 k/uL (150-450); RBC 4.79 m/uL (3.80-5.40); WBC 7.8 k/uL (3.8-10.6)
[2020-08-05 08:21] LABS: African American GFR (CKD) >90 (>60 ml/min/1.73 sqM); Anion Gap 5 mmol/L; Blood Urea Nitrogen 20 mg/dL (7-17); Calcium 9.2 mg/dL (8.4-10.2); Carbon Dioxide 30 mmol/L (22-30); Chloride 101 mmol/L (98-107); Glucose 142 mg/dL (74-99); Non-African American GFR(CKD) 85 (>60 ml/min/1.73 sqM); Potassium 4.6 mmol/L (3.5-5.1); Sodium 136 mmol/L (137-145)
[2020-08-05] MEDS: AMIODARONE 200 MG TAB PO SCH ×2 (08:44→21:47)
[2020-08-05] MEDS: APIXABAN 5 MG TAB PO SCH ×2 (08:47→21:47)
[2020-08-05] MEDS: methylPREDNISolone SOD SUCCI 125 MG/2 ML VIAL IV SCH ×2 (10:32→15:12)
--- NOTE | 2020-08-05 10:57 | P.CNPUL ---
History of Present Illness Consult date: 08/05/20 Reason for consult: dyspnea History of present illness: 65-year-old here patient with history of COPD hospitalized recently on 06/06/2021 acute COPD exacerbation and she was discharged home. She was diagnosed having an acute on chronic hypoxic and hypercapnic respiratory failure secondary to COPD. Unfortunately she was unable to follow up with us in the office. She is not using any maintenance inhalers other than Incruse. Her baseline spirometry has not been done. She is oxygen dependent 2 L per minute nasal cannula. She is not smoking. She comes in for another exacerbation with increased dyspnea chest tightness and wheezing. Note that she also has history of chronic atrial fibrillation. She has previous history of CVA and TIA. The patient has a normal white count of 7.8 with hemoglobin of 12.8. BUN is 20 mg creatinine of 0.7. Coags are within normal limits. Chest x-ray shows a small infiltration of the left upper lobe/lingular segment compared to the old x-ray. She is currently on DuoNeb nebulized treatments around the clock, she is also on IV Solu-Medrol. She has a T-max of 99.2 Review of Systems Constitutional: Denies chills, Denies fever Eyes: denies as per HPI, denies blurred vision, denies bulging eye, denies decreased vision, denies diplopia, denies discharge, denies dry eye, denies irritation, denies itching, denies pain, denies photophobia, denies loss of peripheral vision, denies loss of vision, denies tunnel vision/blind spots Ears: deny: decreased hearing, ear discharge, earache, tinnitus Ears, nose, mouth and throat: Denies headache, Denies sore throat Breasts: absent: as per HPI, change in shape, gynecomastia, masses, nipple discharge, pain, skin changes, swelling Cardiovascular: Reports as per HPI, Reports decreased exercise tolerance, Reports dyspnea on exertion Respiratory: Reports cough, Reports dyspnea, Reports wheezing Gastrointestinal: Reports as per HPI Genitourinary: Reports as per HPI Menstruation: Reports as per HPI Musculoskeletal: Reports as per HPI (scoliosis), Reports low back pain Musculoskeletal: absent: ankle pain, ankle stiffness, ankle swelling Integumentary: Reports as per HPI Neurological: Reports as per HPI Psychiatric: Reports as per HPI Endocrine: Reports as per HPI, Reports fatigue Hematologic/Lymphatic: Reports as per HPI Allergic/Immunologic: Reports as per HPI Past Medical History Past Medical History: Atrial Fibrillation, Asthma, COPD, CVA/TIA, Myocardial Infarction (VT), Osteoarthritis (OA) Additional Past Medical History / Comment(s): Brain aneurysum that is clipped 2000 HF, home oxygen at 2L/[place] ATC, arthritis in several joints, chronic low back pain which involves L leg-numbness/tingling, scoliosis, seasonal allergies, Previous history of coronary artery disease and angioplasty, previous inferior wall VT, PAD, PAF, hypertension, hyperlipidemia, history of 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 She drives. She has home oxygen at 2L/[place] ATC and a nebulizer. Smoking Status: Former smoker Past Alcohol Use History: None Reported Additional Past Alcohol Use History / Comment(s): Pt started smoking in 1975 and has quit august 2019 Past Drug Use History: None Reported - Past Family History Father Family Medical History: Coronary Artery Disease (CAD), Diabetes Mellitus Additional Family Medical History / Comment(s): Father had 3 vessel CABG. He at the age of 69 from heart disease. Mother Family Medical History: Myocardial Infarction (VT) Additional Family Medical History / Comment(s): Mother of a VT at the age of 42 yrs. Medications and Allergies Home Medications Medication Instructions Recorded Confirmed Type Amiodarone [Cordarone] 200 mg PO BID 30 Days #60 tab 06/12/20 08/04/20 Rx Apixaban [Eliquis] 5 mg PO BID 30 Days #60 tab 06/12/20 08/04/20 Rx Ipratropium-Albuterol Nebulize 3 ml INHALATION RT-QID ml 06/12/20 08/04/20 Rx [Duoneb 0.5 mg-3 mg/3 ml Soln] Montelukast [Singulair] 10 mg PO HS 30 Days #30 tab 06/12/20 08/04/20 Rx Umeclidinium [place] [Incruse 1 puff INHALATION RT-DAILY 30 Days 06/12/20 Rx Ellipta] #1 device Famotidine [Pepcid] 20 mg PO BID PRN 08/04/20 08/04/20 History tiZANidine [Zanaflex] 4 mg PO HS 08/04/20 08/04/20 History Allergies Allergy/AdvReac Type Severity Reaction Status Date / Time naproxen [From Naprosyn] Allergy Anaphylaxis Verified 08/04/20 21:03 Sulfa (Sulfonamide Allergy Anaphylaxis Verified 08/04/20 21:03 Antibiotics) azithromycin [From Zithromax] AdvReac does not Verified 08/04/20 21:03 take due to A-Fib Physical Exam Vitals: Vital Signs Temp Pulse Pulse Resp BP BP Pulse Ox 08/05/20 07:12 78 08/05/20 07:02 74 08/05/20 02:30 66 18 08/05/20 02:25 98.6 F 66 18 138/55 94 L 08/04/20 22:00 97.8 F 68 16 182/73 97 08/04/20 21:20 64 20 160/77 95 08/04/20 20:41 88 08/04/20 20:35 69 08/04/20 18:19 98.4 F 88 22 194/85 98 Intake and Output 08/04/20 08/05/20 08/05/20 22:59 06:59 14:59 Intake Total 480 Balance 480 Intake: Oral 480 Other: # Voids 1 1 1 Weight 81.647 kg GENERAL EXAM: Very pleasant 64-year-old female patient. Alert, active, comfortable in no apparent distress. On 2 L nasal cannula. HEENT: PERRLA, EOMI, no icterus, no neck masses, no JVD, no stridor, moist mucous membranes. CHEST: No chest wall deformity. LUNGS: Symmetrical chest expansion, wheezing on forced expiratory maneuver only significant improvement compared to yesterday. CVS: Irregular irregular rhythm. S1 and S2 normal with no audible murmur ABDOMEN: No hepatosplenomegaly, normal bowel sounds, no guarding or rigidity. SPINE: No scoliosis or deformity SKIN: No rashes CENTRAL NERVOUS SYSTEM: No focal deficits, tone is normal in all 4 extremities. EXTREMITIES: There is no peripheral edema. No clubbing, no cyanosis. Peripheral pulses are intact. Psychiatric: Normal mood affect and normal mental status examination. Musculoskeletal: No deformities, no limitation in range of motion. - Constitutional General appearance: average body habitus, mild distress, obese - EENT Eyes: EOMI Ears: negative: bulging, bullous, dull, erythema, fluid, myringotomy tube, obstructed by cerumen, scarring, unable to vistualize, other - Neck Neck: no lymphadenopathy Carotids: negative: upstroke normal, upstroke delayed, upstroke diminished, upstroke bounding, bruit absent, bruit present Thyroid: negative: normal size, enlarged, firm, nodule - Respiratory Respiratory: bilateral: diminished, wheezing, prolonged expiration, negative: dullness - Cardiovascular Rhythm: irregularly irregular Heart sounds: normal: S1, S2 - Gastrointestinal General gastrointestinal: no organomegaly, soft, no tenderness - Musculoskeletal Musculoskeletal: gait normal - Psychiatric Psychiatric: A&O x's 3 Results - Laboratory Findings CBC and BMP: 08/05/20 06:38 08/05/20 06:38 PT/INR, D-dimer PT 10.0 sec (9.0-12.0) 08/04/20 20:03 INR 1.0 (<1.2) 08/04/20 20:03 Abnormal lab findings: Abnormal Labs 08/04/20 08/04/20 08/05/20 20:03 20:03 06:38 RDW 16.9 H 17.0 H Lymphocytes # 0.7 L Sodium BUN 20 H Glucose 117 H 08/05/20 06:38 RDW Lymphocytes # Sodium 136 L BUN 20 H Glucose 142 H - Diagnostic Findings Chest x-ray: image reviewed Assessment and Plan Plan: 1 Acute exacerbation of COPD. 2 lingular infiltrate, consider again early left upper lobe pneumonia 3 Chronic hypoxic respiratory failure. This is secondary to underlying COPD. 4 History of coronary artery disease and previous angioplasty of distal segment of the right PDA. History of inferior wall VT. 5 History of peripheral vessel occlusive disease. 6 Paroxysmal atrial fibrillation. 7 Benign essential hypertension. 8 Dyslipidemia. 9 Chronic tobacco use, patient supposedly quit in March of 2020. 10 History of seasonal ALLERGIC rhinitis. 11 Degenerative joint disease. 12 History of MAIL FORWARDING SYSTEM MARKUP CLERK aneurysm, previous clipping. Plan Albuterol and ipratropium nebulized treatments around the clock IV Solu-Medrol 60 mg every 6 hours Levaquin 750 mg by mouth daily Outpatient management of COPD including the PFT and further adjustment in medication to include a combination of inhaled corticosteroids, long-acting cholinergic and bronchodilator. Oxygen therapy at 2 L per minute nasal cannula Un" resume all medications We'll continue to follow
[2020-08-05] MEDS: LEVOFLOXACIN 750 MG TAB PO SCH (11:41)
--- NOTE | 2020-08-05 13:14 | P.HPIM ---
History of Present Illness Patient is a pleasant 65-year-old female was recently discharged from the hospital about a month ago after she was treated for COPD exacerbation comes back again because of continued shortness of breath much worse last 3-4 days with yellowish sputum production. Patient does use 2 L of onset at home. Patient quit smoking used to smoke in the past. Patient doesn't have any leukocytosis doesn't have any fever chest x-ray was suspicious for small infiltrate in the left lingular area. Patient was evaluated by pulmonology and this started on systemic steroids and patient is on levofloxacin as per pulmonology. Review of Systems REVIEW OF SYSTEMS: CONSTITUTIONAL: No fever, no malaise, no fatigue. HEENT: No recent visual problems or hearing problems. Denied any sore throat. CARDIOVASCULAR: No chest pain, orthopnea, PND, no palpitations, no syncope. PULMONARY: As mentioned in HPI GASTROINTESTINAL: No diarrhea, no nausea, no vomiting, no abdominal pain. NEUROLOGICAL: No headaches, no weakness, no numbness. HEMATOLOGICAL: Denies any bleeding or petechiae. GENITOURINARY: Denies any burning micturition, frequency, or urgency. MUSCULOSKELETAL/RHEUMATOLOGICAL: Denies any joint pain, swelling, or any muscle pain. ENDOCRINE: Denies any polyuria or polydipsia. The rest of the 14-point review of systems is negative. 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 She drives. She has home oxygen at 2L/[place] ATC and a nebulizer. Smoking Status: Former smoker Past Alcohol Use History: None Reported Additional Past Alcohol Use History / Comment(s): Pt started smoking in 1975 and has quit august 2019 Past Drug Use History: None Reported - Past Family History Father Family Medical History: Coronary Artery Disease (CAD), Diabetes Mellitus Additional Family Medical History / Comment(s): Father had 3 vessel CABG. He at the age of 69 from heart disease. Mother Family Medical History: Myocardial Infarction (PR) Additional Family Medical History / Comment(s): Mother of a PR at the age of 42 yrs. Medications and Allergies Home Medications Medication Instructions Recorded Confirmed Type Amiodarone [Cordarone] 200 mg PO BID 30 Days #60 tab 06/12/20 08/04/20 Rx Apixaban [Eliquis] 5 mg PO BID 30 Days #60 tab 06/12/20 08/04/20 Rx Ipratropium-Albuterol Nebulize 3 ml INHALATION RT-QID ml 06/12/20 08/04/20 Rx [Duoneb 0.5 mg-3 mg/3 ml Soln] Montelukast [Singulair] 10 mg PO HS 30 Days #30 tab 06/12/20 08/04/20 Rx Umeclidinium [place] [Incruse 1 puff INHALATION RT-DAILY 30 Days 06/12/20 08/04/20 Rx Ellipta] #1 device Famotidine [Pepcid] 20 mg PO BID PRN 08/04/20 08/04/20 History tiZANidine [Zanaflex] 4 mg PO HS 08/04/20 08/04/20 History Allergies Allergy/AdvReac Type Severity Reaction Status Date / Time naproxen [From Naprosyn] Allergy Anaphylaxis Verified 08/04/20 21:03 Sulfa (Sulfonamide Allergy Anaphylaxis Verified 08/04/20 21:03 Antibiotics) azithromycin [From Zithromax] AdvReac does not Verified 08/04/20 21:03 take due to A-Fib Physical Exam Vitals: Vital Signs Temp Pulse Pulse Resp BP BP Pulse Ox 08/05/20 11:35 74 08/05/20 11:20 70 08/05/20 09:00 99.2 F 71 18 114/69 94 L 08/05/20 07:12 78 08/05/20 07:02 74 08/05/20 02:30 66 18 08/05/20 02:25 98.6 F 66 18 138/55 94 L 08/04/20 22:00 97.8 F 68 16 182/73 97 08/04/20 21:20 64 20 160/77 95 08/04/20 20:41 88 08/04/20 20:35 69 08/04/20 18:19 98.4 F 88 22 194/85 98 Intake and Output 08/04/20 08/05/20 08/05/20 22:59 06:59 14:59 Intake Total 480 Balance 480 Intake: Oral 480 Other: # Voids 1 1 1 Weight 81.647 kg PHYSICAL EXAMINATION: GENERAL: The patient is alert and oriented x3, not in any acute distress. Well developed, well nourished. HEENT: Pupils are round and equally reacting to light. EOMI. No scleral icterus. No conjunctival pallor. Normocephalic, atraumatic. No pharyngeal erythema. No thyromegaly. CARDIOVASCULAR: S1 and S2 present. No murmurs, rubs, or gallops. PULMONARY: Expiratory wheezing on exam decreased air entry bilateral lung coles. ABDOMEN: Soft, nontender, nondistended, normoactive bowel sounds. No palpable organomegaly. MUSCULOSKELETAL: No joint swelling or deformity. EXTREMITIES: No cyanosis, clubbing, or pedal edema. NEUROLOGICAL: Gross neurological examination did not reveal any focal deficits. SKIN: No rashes. Results CBC & Chem 7: 08/05/20 06:38 08/05/20 06:38 Labs: Abnormal Lab Results - Last 24 Hours (Table) 08/04/20 08/04/20 08/05/20 Range/Units 20:03 20:03 06:38 RDW 16.9 H 17.0 H (11.5-15.5) % Lymphocytes # 0.7 L (1.0-4.8) k/uL Sodium (137-145) mmol/L BUN 20 H (7-17) mg/dL Glucose 117 H (74-99) mg/dL 08/05/20 Range/Units 06:38 RDW (11.5-15.5) % Lymphocytes # (1.0-4.8) k/uL Sodium 136 L (137-145) mmol/L BUN 20 H (7-17) mg/dL Glucose 142 H (74-99) mg/dL Thrombosis Risk Factor Assmnt - Choose All That Apply Any of the Below Risk Factors Present?: Yes Each Factor Represents 1 point: Abnormal pulmonary function (COPD), Obesity (BMI >25) Other congenital or acquired thrombophilia - If yes, enter type in comment: No Thrombosis Risk Factor Assessment Total Risk Factor Score: 2 Thrombosis Risk Factor Assessment Level: Low Risk Assessment and Plan Plan: -Acute on chronic hypercapnic respiratory failure secondary to COPD exacerbation continue with systemic steroids inhalational treatments. Patient quit smoking about 3-4 months ago -Possible pneumonia community-acquired continued levofloxacin -Coronary artery disease with a previous angioplasty had an inferior wall PR and stenting to right PDA. -Peripheral vascular disease -Hyperlipidemia -Cerebral aneurysm with clipping in the past -History of atrial fibrillation presently rate controlled on anti-correlation at the request which is being continued GI prophylaxis with Pepcid
[2020-08-05] MEDS: tiZANidine 4 MG TAB PO SCH (21:47)
[2020-08-05] MEDS: MONTELUKAST 10 MG TAB PO SCH (21:47)
[2020-08-06] MEDS: methylPREDNISolone SOD SUCCI 125 MG/2 ML VIAL IV SCH ×3 (00:45→15:15)
[2020-08-06] MEDS: IPRATROPIUM-ALBUTEROL 3 ML NEB INHALATION SCH ×4 (07:17→20:10)
[2020-08-06] MEDS: APIXABAN 5 MG TAB PO SCH ×2 (08:18→21:34)
[2020-08-06] MEDS: LEVOFLOXACIN 750 MG TAB PO SCH (08:18)
[2020-08-06] MEDS: AMIODARONE 200 MG TAB PO SCH ×2 (08:18→21:35)
--- NOTE | 2020-08-06 12:31 | P.PN ---
Subjective Patient is admitted for COPD etc. she is still wheezing quite a bit. Patient will be continued on systemic steroids. Constitutional: Denied any fatigue denied any fever. Cardio vascular: denied any chest pain, palpitations Gastrointestinal denied any nausea vomiting Pulmonary: Still has shortness of breath Neurologic denied any new focal deficits All inpatient medications were reviewed and appropriate changes in these medications as dictated in the interval history and assessment and plan. Objective - Vital Signs Vital signs: Vital Signs Temp 98.0 F 08/06/20 09:00 Pulse 68 08/06/20 11:09 Resp 20 08/06/20 09:00 BP 158/72 08/06/20 09:00 Pulse Ox 94 L 08/06/20 09:00 Intake & Output 08/05/20 08/06/20 08/06/20 18:59 06:59 18:59 Output Total 200 400 Balance -200 -400 Output: Urine 200 400 Other: # Voids 1 1 - Exam PHYSICAL EXAMINATION: GENERAL: The patient is alert and oriented x3, not in any acute distress. Well developed, well nourished. HEENT: Pupils are round and equally reacting to light. EOMI. No scleral icterus. No conjunctival pallor. Normocephalic, atraumatic. No pharyngeal erythema. No thyromegaly. CARDIOVASCULAR: S1 and S2 present. No murmurs, rubs, or gallops. PULMONARY: Expiratory wheezing on exam decreased air entry bilateral lung coles. ABDOMEN: Soft, nontender, nondistended, normoactive bowel sounds. No palpable organomegaly. MUSCULOSKELETAL: No joint swelling or deformity. EXTREMITIES: No cyanosis, clubbing, or pedal edema. NEUROLOGICAL: Gross neurological examination did not reveal any focal deficits. SKIN: No rashes. - Labs CBC & Chem 7: 08/05/20 06:38 08/05/20 06:38 Assessment and Plan Plan: -Acute on chronic hypercapnic respiratory failure secondary to COPD exacerbation continue with systemic steroids inhalational treatments. Patient quit smoking about 3-4 months ago -Possible pneumonia community-acquired continued levofloxacin -Coronary artery disease with a previous angioplasty had an inferior wall [place] and stenting to right PDA. -Peripheral vascular disease -Hyperlipidemia -Cerebral aneurysm with clipping in the past -History of atrial fibrillation presently rate controlled on anti-correlation at the request which is being continued GI prophylaxis with Pepcid
--- NOTE | 2020-08-06 14:54 | P.PN ---
Subjective Progress Note Date: 08/06/20 Principal diagnosis: Acute exacerbation of COPD, lingular infiltrate 65-year-old here patient with history of COPD hospitalized recently on 06/06/2021 acute COPD exacerbation and she was discharged home. She was diagnosed having an acute on chronic hypoxic and hypercapnic respiratory failure secondary to COPD. Unfortunately she was unable to follow up with us in the office. She is not using any maintenance inhalers other than Incruse. Her baseline spirometry has not been done. She is oxygen dependent 2 L per minute nasal cannula. She is not smoking. She comes in for another exacerbation with increased dyspnea chest tightness and wheezing. Note that she also has history of chronic atrial fibrillation. She has previous history of CVA and TIA. The patient has a normal white count of 7.8 with hemoglobin of 12.8. BUN is 20 mg creatinine of 0.7. Coags are within normal limits. Chest x-ray shows a small infiltration of the left upper lobe/lingular segment compared to the old x-ray. She is currently on DuoNeb nebulized treatments around the clock, she is also on IV Solu-Medrol. She has a T-max of 99.2 On 08/06/2020 patient seen in follow-up in the observation unit. She is still bronchospastic, and dyspneic but doing better since admission, she is on Levaquin for antibiotic coverage, she is on nebulized bronchodilators have form of DuoNeb, she is on room air, earlier she was sat 92% on 2 L, vitals have been stable, she's been afebrile. She's had no complaints of chest pain, no hemoptysis. She continues on IV steroids at 60 mg every 8 hours, Levaquin, she is on oral anticoagulation and form of Eliquis, she is on Cordarone for heart rate control. Objective - Vital Signs Vital signs: Vital Signs Temp 98.0 F 08/06/20 09:00 Pulse 68 08/06/20 11:09 Resp 20 08/06/20 09:00 BP 158/72 08/06/20 09:00 Pulse Ox 94 L 08/06/20 09:00 Intake & Output 08/05/20 08/06/20 08/06/20 18:59 06:59 18:59 Output Total 200 400 Balance -200 -400 Output: Urine 200 400 Other: # Voids 1 1 - Exam GENERAL EXAM: Alert, very pleasant, 65-year-old white female, on room air, comfortable in no apparent distress. HEAD: Normocephalic/atraumatic. EYES: Normal reaction of pupils, equal size. Conjunctiva pink, sclera white. NOSE: Clear with pink turbinates. THROAT: No erythema or exudates. NECK: No masses, no JVD, no thyroid enlargement, no adenopathy. CHEST: No chest wall deformity. Symmetrical expansion. LUNGS: Equal air entry with scattered wheezes CVS: Regular rate and rhythm, normal S1 and S2, no gallops, no murmurs, no rubs ABDOMEN: Soft, nontender. No hepatosplenomegaly, normal bowel sounds, no guarding or rigidity. EXTREMITIES: No clubbing, no edema, no cyanosis, 2+ pulses and upper and lower extremities. MUSCULOSKELETAL: Muscle strength and tone normal. SPINE: No scoliosis or deformity SKIN: No rashes CENTRAL NERVOUS SYSTEM: Alert and oriented -3. No focal deficits, tone is normal in all 4 extremities. PSYCHIATRIC: Alert and oriented -3. Appropriate affect. Intact judgment and insight. - Labs CBC & Chem 7: 08/05/20 06:38 08/05/20 06:38 Assessment and Plan Plan: Assessment: 1 Acute exacerbation of COPD. 2 lingular infiltrate, consider again early left upper lobe pneumonia 3 Chronic hypoxic respiratory failure. This is secondary to underlying COPD. 4 History of coronary artery disease and previous angioplasty of distal segment of the right PDA. History of inferior wall CT. 5 History of peripheral vessel occlusive disease. 6 Paroxysmal atrial fibrillation. 7 Benign essential hypertension. 8 Dyslipidemia. 9 Chronic tobacco use, patient supposedly quit in March of 2020. 10 History of seasonal ALLERGIC rhinitis. 11 Degenerative joint disease. 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 Plan: Continue with current medical treatment, antibiotics, IV steroids and nebulized bronchodilators, will and Pulmicort, no Perforomist. Patient is doing better, will need 24 hours inpatient treatment, will continue to follow I performed a history & physical examination of the patient and discussed their management with my nurse practitioner, Darcy Mccartney. I reviewed the nurse practitioner's note and agree with the documented findings and plan of care. Lung sounds are positive for diffuse wheezes throughout the lung coles. The findings and the impression was discussed with the patient. I attest to the documentation by the nurse practitioner. Time with Patient: Less than 30
[2020-08-06] MEDS: BUDESONIDE 1 MG/2 ML NEBU INHALATION SCH (20:11)
[2020-08-06] MEDS: MONTELUKAST 10 MG TAB PO SCH (21:34)
[2020-08-06] MEDS: tiZANidine 4 MG TAB PO SCH (21:35)
[2020-08-06] MEDS: IPRATROPIUM-ALBUTEROL 3 ML NEB INHALATION PRN (23:45)
[2020-08-07] MEDS: methylPREDNISolone SOD SUCCI 125 MG/2 ML VIAL IV SCH ×4 (00:02→23:15)
[2020-08-07] MEDS: IPRATROPIUM-ALBUTEROL 3 ML NEB INHALATION PRN (03:23)
[2020-08-07] MEDS: LEVOFLOXACIN 750 MG TAB PO SCH (07:26)
[2020-08-07] MEDS: APIXABAN 5 MG TAB PO SCH ×2 (07:26→20:07)
[2020-08-07] MEDS: AMIODARONE 200 MG TAB PO SCH ×2 (07:26→20:07)
[2020-08-07] MEDS: BUDESONIDE 1 MG/2 ML NEBU INHALATION SCH ×2 (08:18→20:09)
[2020-08-07] MEDS: IPRATROPIUM-ALBUTEROL 3 ML NEB INHALATION SCH ×4 (08:18→20:09)
--- NOTE | 2020-08-07 13:51 | P.PN ---
Subjective Progress Note Date: 08/07/20 Principal diagnosis: Acute exacerbation of COPD 65-year-old here patient with history of COPD hospitalized recently on 06/06/2021 acute COPD exacerbation and she was discharged home. She was diagnosed having an acute on chronic hypoxic and hypercapnic respiratory failure secondary to COPD. Unfortunately she was unable to follow up with us in the office. She is not using any maintenance inhalers other than Incruse. Her baseline spirometry has not been done. She is oxygen dependent 2 L per minute nasal cannula. She is not smoking. She comes in for another exacerbation with increased dyspnea chest tightness and wheezing. Note that she also has history of chronic atrial fibrillation. She has previous history of CVA and TIA. The patient has a normal white count of 7.8 with hemoglobin of 12.8. BUN is 20 mg creatinine of 0.7. Coags are within normal limits. Chest x-ray shows a small infiltration of the left upper lobe/lingular segment compared to the old x-ray. She is currently on DuoNeb nebulized treatments around the clock, she is also on IV Solu-Medrol. She has a T-max of 99.2 On 08/06/2020 patient seen in follow-up in the observation unit. She is still bronchospastic, and dyspneic but doing better since admission, she is on Levaquin for antibiotic coverage, she is on nebulized bronchodilators have form of DuoNeb, she is on room air, earlier she was sat 92% on 2 L, vitals have been stable, she's been afebrile. She's had no complaints of chest pain, no hemoptysis. She continues on IV steroids at 60 mg every 8 hours, Levaquin, she is on oral anticoagulation and form of Eliquis, she is on Cordarone for heart rate control. Patient was reevaluated today on 08/07/20, remains in the observation unit, patient is still having episodes of cough and wheezing, improving however compared to the last 2 days. Patient is still not quite ready to be discharged home, but she is progressing and improving slowly but steadily. Patient is afebrile, heart rate is 76, and she is on 2 L nasal cannula. O2 saturation is ranging between 92-95%. Objective - Vital Signs Vital signs: Vital Signs Temp 97.9 F 08/07/20 07:28 Pulse 76 08/07/20 13:03 Resp 14 08/07/20 07:28 BP 132/62 08/07/20 07:28 Pulse Ox 95 08/07/20 07:28 Intake & Output 08/06/20 08/07/20 08/07/20 18:59 06:59 18:59 Other: # Voids 2 2 - Exam Physical Exam: Revealed 65-year-old female, pleasant, in no distress. On 2 L nasal cannula. Head: Atraumatic, normocephalic. HEENT:[Neck is supple.] [No neck masses.] [No thyromegaly.] [No JVD.] Chest: [Symmetrical chest expansion, rhonchi and wheezes noted bilaterally more so on forced expiratory maneuver. Cardiac Exam: [Normal S1 and S2, no S3 gallop, no murmur.] Abdomen: [Soft, nontender, no megaly, no rebound, no guarding, normal bowel sounds.] Extremities: [No clubbing, no edema, no cyanosis.] Neurological Exam: [No focal neurologic deficit.] Alert and oriented 3. Psychiatric: Normal mood, affect and normal mental status examination. Skin: No rashes. Musculoskeletal: Normal strength and normal tone no deformities and no limitation in range of motion. - Labs CBC & Chem 7: 08/05/20 06:38 08/05/20 06:38 Assessment and Plan Assessment: Impression: Acute exacerbation of COPD Acute community-acquired pneumonia Acute on chronic hypoxic respiratory failure secondary to above History of underlying coronary artery disease and previous angioplasty of distal segment of right PDA and history of inferior wall [place] paroxysmal atrial fibrillation Benign essential hypertension Degenerative joint disease History of LOAN EXAMINER aneurysm requiring clipping. Dyslipidemia. Recommendation: Continue bronchodilators. Continue antibiotics. Continue IV steroids. Continue cardiac meds. Not quite ready for discharge planning, We will assess again in a.m. for possible discharge planning in the next 24 hours. Time with Patient: Less than 30
--- NOTE | 2020-08-07 15:56 | P.PN ---
Subjective Patient is admitted for COPD etc. she is still wheezing quite a bit. Patient will be continued on systemic steroids. 08/07/2020 Patient is a still wheezing but significant improved compared to yesterday. Constitutional: Denied any fatigue denied any fever. Cardio vascular: denied any chest pain, palpitations Gastrointestinal denied any nausea vomiting Pulmonary: significant improvement in shortness of breath Neurologic denied any new focal deficits All inpatient medications were reviewed and appropriate changes in these medications as dictated in the interval history and assessment and plan. Objective - Vital Signs Vital signs: Vital Signs Temp 98 F 08/07/20 14:02 Pulse 78 08/07/20 14:02 Resp 20 08/07/20 14:02 BP 113/53 08/07/20 14:02 Pulse Ox 98 08/07/20 14:02 Intake & Output 08/06/20 08/07/20 08/07/20 18:59 06:59 18:59 Other: # Voids 2 3 - Exam PHYSICAL EXAMINATION: GENERAL: The patient is alert and oriented x3, not in any acute distress. Well developed, well nourished. HEENT: Pupils are round and equally reacting to light. EOMI. No scleral icterus. No conjunctival pallor. Normocephalic, atraumatic. No pharyngeal erythema. No thyromegaly. CARDIOVASCULAR: S1 and S2 present. No murmurs, rubs, or gallops. PULMONARY: Expiratory wheezing on exam decreased air entry bilateral lung coles. wheezing overall improved compared to admission ABDOMEN: Soft, nontender, nondistended, normoactive bowel sounds. No palpable organomegaly. MUSCULOSKELETAL: No joint swelling or deformity. EXTREMITIES: No cyanosis, clubbing, or pedal edema. NEUROLOGICAL: Gross neurological examination did not reveal any focal deficits. SKIN: No rashes. - Labs CBC & Chem 7: 08/05/20 06:38 08/05/20 06:38 Assessment and Plan Plan: -Acute on chronic hypercapnic respiratory failure secondary to COPD exacerbation continue with systemic steroids inhalational treatments. Patient quit smoking about 3-4 months ago -Possible pneumonia community-acquired continued levofloxacin -Coronary artery disease with a previous angioplasty had an inferior wall SD and stenting to right PDA. -Peripheral vascular disease -Hyperlipidemia -Cerebral aneurysm with clipping in the past -History of atrial fibrillation presently rate controlled on anti-correlation at the request which is being continued GI prophylaxis with Pepcid
[2020-08-07] MEDS: tiZANidine 4 MG TAB PO SCH (20:07)
[2020-08-07] MEDS: MONTELUKAST 10 MG TAB PO SCH (20:07)
[2020-08-08] MEDS: IPRATROPIUM-ALBUTEROL 3 ML NEB INHALATION PRN ×3 (01:14→23:30)
[2020-08-08] MEDS: APIXABAN 5 MG TAB PO SCH ×2 (07:29→20:34)
[2020-08-08] MEDS: LEVOFLOXACIN 750 MG TAB PO SCH (07:29)
[2020-08-08] MEDS: methylPREDNISolone SOD SUCCI 125 MG/2 ML VIAL IV SCH ×3 (07:30→23:52)
[2020-08-08] MEDS: AMIODARONE 200 MG TAB PO SCH ×2 (07:30→20:34)
--- NOTE | 2020-08-08 08:46 | P.DS ---
Providers Date of admission: 08/06/20 12:31 Attending physician: Ghassan Bhatti Consults: 08/04/20 21:01 Consult Physician Urgent Consulting Provider: Uma Artis Consult Reason/Comments: acute/chronic resp failure, aecopd Do you want consulting provider notified?: Yes Primary care physician: Marino David [facility] Course: Patient is admitted for COPD etc. she is still wheezing quite a bit. Patient will be continued on systemic steroids. 08/07/2020 Patient is a still wheezing but significant improved compared to yesterday. 08/08/2020 Patient is still wheezing but feels well and she believes she is at her baseline will ablate the patient if patient is doing okay after that we will be discharged if cleared by pulmonology patient will be discharged on for more days of levofloxacin and weaning dose of steroids. PHYSICAL EXAMINATION: GENERAL: The patient is alert and oriented x3, not in any acute distress. Well developed, well nourished. HEENT: Pupils are round and equally reacting to light. EOMI. No scleral icterus. No conjunctival pallor. Normocephalic, atraumatic. No pharyngeal erythema. No thyromegaly. CARDIOVASCULAR: S1 and S2 present. No murmurs, rubs, or gallops. PULMONARY:decreased air entry with mild expiratory wheezing ABDOMEN: Soft, nontender, nondistended, normoactive bowel sounds. No palpable organomegaly. MUSCULOSKELETAL: No joint swelling or deformity. EXTREMITIES: No cyanosis, clubbing, or pedal edema. NEUROLOGICAL: Gross neurological examination did not reveal any focal deficits. SKIN: No rashes. Assessment and Plan Plan: -Acute on chronic hypercapnic respiratory failure secondary to COPD exacerbation discharged on steroids inhalational treatments. Patient quit smoking about 3-4 months ago -Possible pneumonia community-acquired continued levofloxacinfor 4 more days -Coronary artery disease with a previous angioplasty had an inferior wall PR and stenting to right PDA. -Peripheral vascular disease -Hyperlipidemia -Cerebral aneurysm with clipping in the past -History of atrial fibrillation presently rate controlled on anti-correlation at the request which is being continued GI prophylaxis with Pepcid Patient Condition at Discharge: Stable Plan - Discharge Summary New Discharge Prescriptions: New Levofloxacin [Levaquin] 750 mg PO DAILY #4 tab predniSONE 10 mg PO DAILY #30 tab Continue Ipratropium-Albuterol Nebulize [Duoneb 0.5 mg-3 mg/3 ml Soln] 3 ml INHALATION RT-QID ml Amiodarone [Cordarone] 200 mg PO BID 30 Days #60 tab Apixaban [Eliquis] 5 mg PO BID 30 Days #60 tab Umeclidinium [place] [Incruse Ellipta] 1 puff INHALATION RT-DAILY 30 Days #1 device Montelukast [Singulair] 10 mg PO HS 30 Days #30 tab Famotidine [Pepcid] 20 mg PO BID PRN PRN Reason: Heartburn tiZANidine [Zanaflex] 4 mg PO HS Discharge Medication List Amiodarone [Cordarone] 200 mg PO BID 30 Days #60 tab 06/12/20 [Rx] Apixaban [Eliquis] 5 mg PO BID 30 Days #60 tab 06/12/20 [Rx] Ipratropium-Albuterol Nebulize [Duoneb 0.5 mg-3 mg/3 ml Soln] 3 ml INHALATION RT-QID ml 06/12/20 [Rx] Montelukast [Singulair] 10 mg PO HS 30 Days #30 tab 06/12/20 [Rx] Umeclidinium [place] [Incruse Ellipta] 1 puff INHALATION RT-DAILY 30 Days #1 device 06/12/20 [Rx] Famotidine [Pepcid] 20 mg PO BID PRN 08/04/20 [History] tiZANidine [Zanaflex] 4 mg PO HS 08/04/20 [History] Levofloxacin [Levaquin] 750 mg PO DAILY #4 tab 08/08/20 [Rx] predniSONE 10 mg PO DAILY #30 tab 08/08/20 [Rx] Follow up Appointment(s)/Referral(s): Frankie Pichardo MD [Primary Care Provider] - 3 Days [facility] [NON-STAFF] - As Needed Maciel Winn DO [Doctor of Osteopathic Medicine] - 1 Week Patient Instructions/Handouts: COPD (Chronic Obstructive Pulmonary Disease) (DC) Discharge Disposition: HOME SELF-CARE
[2020-08-08] MEDS: BUDESONIDE 1 MG/2 ML NEBU INHALATION SCH ×2 (09:05→19:00)
[2020-08-08] MEDS: IPRATROPIUM-ALBUTEROL 3 ML NEB INHALATION SCH ×4 (09:05→19:00)
--- NOTE | 2020-08-08 12:21 | P.PN ---
Subjective Progress Note Date: 08/08/20 Principal diagnosis: Acute exacerbation of COPD 65-year-old here patient with history of COPD hospitalized recently on 06/06/2021 acute COPD exacerbation and she was discharged home. She was diagnosed having an acute on chronic hypoxic and hypercapnic respiratory failure secondary to COPD. Unfortunately she was unable to follow up with us in the office. She is not using any maintenance inhalers other than Incruse. Her baseline spirometry has not been done. She is oxygen dependent 2 L per minute nasal cannula. She is not smoking. She comes in for another exacerbation with increased dyspnea chest tightness and wheezing. Note that she also has history of chronic atrial fibrillation. She has previous history of CVA and TIA. The patient has a normal white count of 7.8 with hemoglobin of 12.8. BUN is 20 mg creatinine of 0.7. Coags are within normal limits. Chest x-ray shows a small infiltration of the left upper lobe/lingular segment compared to the old x-ray. She is currently on DuoNeb nebulized treatments around the clock, she is also on IV Solu-Medrol. She has a T-max of 99.2 On 08/06/2020 patient seen in follow-up in the observation unit. She is still bronchospastic, and dyspneic but doing better since admission, she is on Levaquin for antibiotic coverage, she is on nebulized bronchodilators have form of DuoNeb, she is on room air, earlier she was sat 92% on 2 L, vitals have been stable, she's been afebrile. She's had no complaints of chest pain, no hemoptysis. She continues on IV steroids at 60 mg every 8 hours, Levaquin, she is on oral anticoagulation and form of Eliquis, she is on Cordarone for heart rate control. Patient was reevaluated today on 08/07/20, remains in the observation unit, patient is still having episodes of cough and wheezing, improving however compared to the last 2 days. Patient is still not quite ready to be discharged home, but she is progressing and improving slowly but steadily. Patient is afebrile, heart rate is 76, and she is on 2 L nasal cannula. O2 saturation is ranging between 92-95%. Patient was reevaluated today on 08/08/20, remains on the observation unit, patient is slightly improving but continues to have significant cough and wheezing. Today she is basically almost like yesterday, no fever no chills no hemoptysis, but definite coughing and wheezing. Denies any chest pain no nausea no vomiting no abdominal pain. Objective - Vital Signs Vital signs: Vital Signs Temp 97.7 F 08/08/20 07:36 Pulse 74 08/08/20 12:04 Resp 14 08/08/20 07:36 BP 166/67 08/08/20 07:36 Pulse Ox 96 08/08/20 11:50 Intake & Output 08/07/20 08/08/20 08/08/20 18:59 06:59 18:59 Intake Total 480 Output Total 800 Balance -320 Intake: Oral 480 Output: Urine 800 Other: Voiding Method Toilet # Voids 3 1 1 - Exam Physical Exam: Revealed 65-year-old female, pleasant, in no distress. On 2 L nasal cannula. Head: Atraumatic, normocephalic. HEENT:[Neck is supple.] [No neck masses.] [No thyromegaly.] [No JVD.] Chest: [Diffuse rhonchi and wheezes bilaterally. Cardiac Exam: [Normal S1 and S2, no S3 gallop, no murmur.] Abdomen: [Soft, nontender, no megaly, no rebound, no guarding, normal bowel sounds.] Extremities: [No clubbing, no edema, no cyanosis.] Neurological Exam: [No focal neurologic deficit.] Alert and oriented 3. Psychiatric: Normal mood, affect and normal mental status examination. Skin: No rashes. Musculoskeletal: Normal strength and normal tone no deformities and no limitation in range of motion. - Labs CBC & Chem 7: 08/05/20 06:38 08/05/20 06:38 Assessment and Plan Assessment: Impression: Acute exacerbation of COPD Acute community-acquired pneumonia Acute on chronic hypoxic respiratory failure secondary to above History of underlying coronary artery disease and previous angioplasty of distal segment of right PDA and history of inferior wall [place] paroxysmal atrial fibrillation Benign essential hypertension Degenerative joint disease History of CHEMIST ORGANIC aneurysm requiring clipping. Dyslipidemia. Recommendation: Continue bronchodilators. Continue antibiotics. Continue IV steroids. Continue cardiac meds. Again the patient is not quite ready for discharge today, We'll continue to treat for COPD exacerbation and reassess in the next 24 hours Time with Patient: Less than 30
[2020-08-08] MEDS: MONTELUKAST 10 MG TAB PO SCH (20:34)
[2020-08-08] MEDS: tiZANidine 4 MG TAB PO SCH (20:34)
[2020-08-09] MEDS: IPRATROPIUM-ALBUTEROL 3 ML NEB INHALATION PRN ×2 (03:30→23:31)
[2020-08-09] MEDS: IPRATROPIUM-ALBUTEROL 3 ML NEB INHALATION SCH ×4 (07:25→20:01)
[2020-08-09] MEDS: BUDESONIDE 1 MG/2 ML NEBU INHALATION SCH ×2 (07:25→20:01)
[2020-08-09] MEDS: methylPREDNISolone SOD SUCCI 125 MG/2 ML VIAL IV SCH ×4 (07:56→23:16)
[2020-08-09] MEDS: LEVOFLOXACIN 750 MG TAB PO SCH (08:40)
[2020-08-09] MEDS: APIXABAN 5 MG TAB PO SCH ×2 (08:41→22:04)
[2020-08-09] MEDS: AMIODARONE 200 MG TAB PO SCH ×2 (08:41→22:04)
[2020-08-09] MEDS: THEOPHYLLINE 24 HOUR 400 MG CAP.ER.24H PO SCH (11:51)
--- NOTE | 2020-08-09 11:51 | P.PN ---
Subjective Patient is admitted for COPD etc. she is still wheezing quite a bit. Patient will be continued on systemic steroids. 08/07/2020 Patient is a still wheezing but significant improved compared to yesterday. 08/09/2020 Patient still has expiratory wheezing and pulmonology believes patient will need continued hospitalization steroids. Constitutional: Denied any fatigue denied any fever. Cardio vascular: denied any chest pain, palpitations Gastrointestinal denied any nausea vomiting Pulmonary: significant improvement in shortness of breath Neurologic denied any new focal deficits All inpatient medications were reviewed and appropriate changes in these medications as dictated in the interval history and assessment and plan. Objective - Vital Signs Vital signs: Vital Signs Temp 98.1 F 08/09/20 09:00 Pulse 88 08/09/20 11:22 Resp 18 08/09/20 09:00 BP 122/57 08/09/20 09:00 Pulse Ox 95 08/09/20 09:00 Intake & Output 08/08/20 08/09/20 08/09/20 18:59 06:59 18:59 Intake Total 240 300 Output Total 400 Balance -160 300 Intake: Oral 240 Other 300 Output: Urine 400 Other: Voiding Method Toilet Toilet # Voids 1 1 - Exam PHYSICAL EXAMINATION: GENERAL: The patient is alert and oriented x3, not in any acute distress. Well developed, well nourished. HEENT: Pupils are round and equally reacting to light. EOMI. No scleral icterus. No conjunctival pallor. Normocephalic, atraumatic. No pharyngeal erythema. No thyromegaly. CARDIOVASCULAR: S1 and S2 present. No murmurs, rubs, or gallops. PULMONARY: Expiratory wheezing on exam decreased air entry bilateral lung coles. wheezing overall improved compared to admission ABDOMEN: Soft, nontender, nondistended, normoactive bowel sounds. No palpable organomegaly. MUSCULOSKELETAL: No joint swelling or deformity. EXTREMITIES: No cyanosis, clubbing, or pedal edema. NEUROLOGICAL: Gross neurological examination did not reveal any focal deficits. SKIN: No rashes. - Labs CBC & Chem 7: 08/05/20 06:38 08/05/20 06:38 Assessment and Plan Plan: -Acute on chronic hypercapnic respiratory failure secondary to COPD exacerbation continue with systemic steroids inhalational treatments. Patient quit smoking about 3-4 months ago -Possible pneumonia community-acquired continued levofloxacin -Coronary artery disease with a previous angioplasty had an inferior wall ID and stenting to right PDA. -Peripheral vascular disease -Hyperlipidemia -Cerebral aneurysm with clipping in the past -History of atrial fibrillation presently rate controlled on anti-correlation at the request which is being continued GI prophylaxis with Pepcid
--- NOTE | 2020-08-09 12:58 | P.PN ---
Subjective Progress Note Date: 08/09/20 Principal diagnosis: Acute exacerbation of COPD 65-year-old here patient with history of COPD hospitalized recently on 06/06/2021 acute COPD exacerbation and she was discharged home. She was diagnosed having an acute on chronic hypoxic and hypercapnic respiratory failure secondary to COPD. Unfortunately she was unable to follow up with us in the office. She is not using any maintenance inhalers other than Incruse. Her baseline spirometry has not been done. She is oxygen dependent 2 L per minute nasal cannula. She is not smoking. She comes in for another exacerbation with increased dyspnea chest tightness and wheezing. Note that she also has history of chronic atrial fibrillation. She has previous history of CVA and TIA. The patient has a normal white count of 7.8 with hemoglobin of 12.8. BUN is 20 mg creatinine of 0.7. Coags are within normal limits. Chest x-ray shows a small infiltration of the left upper lobe/lingular segment compared to the old x-ray. She is currently on DuoNeb nebulized treatments around the clock, she is also on IV Solu-Medrol. She has a T-max of 99.2 On 08/06/2020 patient seen in follow-up in the observation unit. She is still bronchospastic, and dyspneic but doing better since admission, she is on Levaquin for antibiotic coverage, she is on nebulized bronchodilators have form of DuoNeb, she is on room air, earlier she was sat 92% on 2 L, vitals have been stable, she's been afebrile. She's had no complaints of chest pain, no hemoptysis. She continues on IV steroids at 60 mg every 8 hours, Levaquin, she is on oral anticoagulation and form of Eliquis, she is on Cordarone for heart rate control. Patient was reevaluated today on 08/07/20, remains in the observation unit, patient is still having episodes of cough and wheezing, improving however compared to the last 2 days. Patient is still not quite ready to be discharged home, but she is progressing and improving slowly but steadily. Patient is afebrile, heart rate is 76, and she is on 2 L nasal cannula. O2 saturation is ranging between 92-95%. Patient was reevaluated today on 08/08/20, remains on the observation unit, patient is slightly improving but continues to have significant cough and wheezing. Today she is basically almost like yesterday, no fever no chills no hemoptysis, but definite coughing and wheezing. Denies any chest pain no nausea no vomiting no abdominal pain. Reevaluated today on 08/09/20, patient remains in the observation unit, continues to cough and wheeze, not much better since yesterday. On physical examination she had diffuse expiratory rhonchi and wheezes, hence I would recommend adding Perforomist, will add Eladio on a trial basis, increased the Solu-Medrol dose, and obviously not quite ready for discharge planning Objective - Vital Signs Vital signs: Vital Signs Temp 98.1 F 08/09/20 09:00 Pulse 88 08/09/20 11:22 Resp 18 08/09/20 09:00 BP 122/57 08/09/20 09:00 Pulse Ox 95 08/09/20 09:00 Intake & Output 08/08/20 08/09/20 08/09/20 18:59 06:59 18:59 Intake Total 240 300 Output Total 400 Balance -160 300 Intake: Oral 240 Other 300 Output: Urine 400 Other: Voiding Method Toilet Toilet # Voids 1 1 - Exam Physical Exam: Revealed 65-year-old female, pleasant, in no distress. On 2 L nasal cannula. Head: Atraumatic, normocephalic. HEENT:[Neck is supple.] [No neck masses.] [No thyromegaly.] [No JVD.] Chest: [Diffuse rhonchi and wheezes bilaterally. Cardiac Exam: [Normal S1 and S2, no S3 gallop, no murmur.] Abdomen: [Soft, nontender, no megaly, no rebound, no guarding, normal bowel sounds.] Extremities: [No clubbing, no edema, no cyanosis.] Neurological Exam: [No focal neurologic deficit.] Alert and oriented 3. Psychiatric: Normal mood, affect and normal mental status examination. Skin: No rashes. Musculoskeletal: Normal strength and normal tone no deformities and no limitation in range of motion. 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 Dyslipidemia. Recommendation: Continue bronchodilators. Add Damien-24 twice a day. Continue antibiotics. Continue IV steroids. Continue cardiac meds. Not cleared for discharge at We'll continue to treat for COPD exacerbation and reassess in the next 24 hours Time with Patient: Less than 30
[2020-08-09] MEDS: ACETAMINOPHEN TAB 325 MG TAB PO PRN ×2 (13:44→22:04)
[2020-08-09] MEDS: FORMOTEROL FUMARATE 20 MCG/2 ML NEBU INHALATION SCH (20:01)
[2020-08-09] MEDS: tiZANidine 4 MG TAB PO SCH (22:04)
[2020-08-09] MEDS: MONTELUKAST 10 MG TAB PO SCH (22:04)
[2020-08-10] MEDS: IPRATROPIUM-ALBUTEROL 3 ML NEB INHALATION PRN (03:34)
[2020-08-10] MEDS: methylPREDNISolone SOD SUCCI 125 MG/2 ML VIAL IV SCH ×2 (05:46→11:55)
[2020-08-10] MEDS: FORMOTEROL FUMARATE 20 MCG/2 ML NEBU INHALATION SCH (07:30)
[2020-08-10] MEDS: BUDESONIDE 1 MG/2 ML NEBU INHALATION SCH (07:30)
[2020-08-10] MEDS: IPRATROPIUM-ALBUTEROL 3 ML NEB INHALATION SCH ×2 (07:30→11:08)
[2020-08-10 07:54] VITALS: BP 99/61; RESP 14; TEMP 98
[2020-08-10] MEDS: LEVOFLOXACIN 750 MG TAB PO SCH (07:54)
[2020-08-10] MEDS: THEOPHYLLINE 24 HOUR 400 MG CAP.ER.24H PO SCH (07:54)
[2020-08-10] MEDS: AMIODARONE 200 MG TAB PO SCH (07:54)
[2020-08-10] MEDS: APIXABAN 5 MG TAB PO SCH (07:55)
[2020-08-10 11:22] VITALS: PULSE 82
[2020-08-10 11:47] VITALS: BMI 28.1
--- NOTE | 2020-08-10 12:06 | P.PN ---
Subjective Progress Note Date: 08/10/20 Principal diagnosis: Acute exacerbation of COPD 65-year-old here patient with history of COPD hospitalized recently on 06/06/2021 acute COPD exacerbation and she was discharged home. She was diagnosed having an acute on chronic hypoxic and hypercapnic respiratory failure secondary to COPD. Unfortunately she was unable to follow up with us in the office. She is not using any maintenance inhalers other than Incruse. Her baseline spirometry has not been done. She is oxygen dependent 2 L per minute nasal cannula. She is not smoking. She comes in for another exacerbation with increased dyspnea chest tightness and wheezing. Note that she also has history of chronic atrial fibrillation. She has previous history of CVA and TIA. The patient has a normal white count of 7.8 with hemoglobin of 12.8. BUN is 20 mg creatinine of 0.7. Coags are within normal limits. Chest x-ray shows a small infiltration of the left upper lobe/lingular segment compared to the old x-ray. She is currently on DuoNeb nebulized treatments around the clock, she is also on IV Solu-Medrol. She has a T-max of 99.2 On 08/06/2020 patient seen in follow-up in the observation unit. She is still bronchospastic, and dyspneic but doing better since admission, she is on Levaquin for antibiotic coverage, she is on nebulized bronchodilators have form of DuoNeb, she is on room air, earlier she was sat 92% on 2 L, vitals have been stable, she's been afebrile. She's had no complaints of chest pain, no hemoptysis. She continues on IV steroids at 60 mg every 8 hours, Levaquin, she is on oral anticoagulation and form of Eliquis, she is on Cordarone for heart rate control. Patient was reevaluated today on 08/07/20, remains in the observation unit, patient is still having episodes of cough and wheezing, improving however compared to the last 2 days. Patient is still not quite ready to be discharged home, but she is progressing and improving slowly but steadily. Patient is afebrile, heart rate is 76, and she is on 2 L nasal cannula. O2 saturation is ranging between 92-95%. Patient was reevaluated today on 08/08/20, remains on the observation unit, patient is slightly improving but continues to have significant cough and wheezing. Today she is basically almost like yesterday, no fever no chills no hemoptysis, but definite coughing and wheezing. Denies any chest pain no nausea no vomiting no abdominal pain. Reevaluated today on 08/09/20, patient remains in the observation unit, continues to cough and wheeze, not much better since yesterday. On physical examination she had diffuse expiratory rhonchi and wheezes, hence I would recommend adding Perforomist, will add Eladio on a trial basis, increased the Solu-Medrol dose, and obviously not quite ready for discharge planning in Patient was reevaluated today on 08/10/20, patient remains in the observation unit, significant improvement in the last 24 hours. Less cough and less wheezing less shortness of breath. On physical examination she had minimal wheezing on forced expiratory maneuver, decent airflow bilaterally, hence I would recommend discharging the patient home today and follow-up on outpatient basis. Objective - Vital Signs Vital signs: Vital Signs Temp 98.0 F 08/10/20 07:52 Pulse 82 08/10/20 11:21 Resp 14 08/10/20 07:52 BP 99/61 08/10/20 07:52 Pulse Ox 98 08/10/20 07:52 Intake & Output 08/09/20 08/10/20 08/10/20 18:59 06:59 18:59 Intake Total 300 Balance 300 Weight 81.647 kg Intake: Other 300 Other: Voiding Method Toilet Toilet # Voids 2 1 1 - Exam Physical Exam: Revealed 65-year-old female, pleasant, in no distress. On 2 L nasal cannula. Head: Atraumatic, normocephalic. HEENT:[Neck is supple.] [No neck masses.] [No thyromegaly.] [No JVD.] Chest: Diminished breath sounds at the bases, minimal wheezing on forced expiratory maneuver only. Cardiac Exam: [Normal S1 and S2, no S3 gallop, no murmur.] Abdomen: [Soft, nontender, no megaly, no rebound, no guarding, normal bowel sounds.] Extremities: [No clubbing, no edema, no cyanosis.] Neurological Exam: [No focal neurologic deficit.] Alert and oriented 3. Psychiatric: Normal mood, affect and normal mental status examination. Skin: No rashes. Musculoskeletal: Normal strength and normal tone no deformities and no limitation in range of motion. - Labs CBC & Chem 7: 08/05/20 06:38 08/05/20 06:38 Assessment and Plan Assessment: Impression: Acute exacerbation of COPD improved. 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 Dyslipidemia. Recommendation: Consider discharging the patient home today, cleared from my perspective. Placed patient on prednisone 30 mg tapered over 2 weeks. Continue updrafts at home albuterol/Atrovent. Symbicort 160/4.52 puffs twice a day. Continue Damien-24 400 mg daily. Oral antibiotics. Follow-up on outpatient basis. Again cleared for discharge today. Time with Patient: Greater than 30
--- NOTE | 2020-08-10 17:13 | P.DS ---
Providers Date of admission: 08/06/20 12:31 Expected date of discharge: 08/10/20 Attending physician: Ghassan Bhatti Consults: 08/04/20 21:01 Consult Physician Urgent Consulting Provider: Uma Artis Consult Reason/Comments: acute/chronic resp failure, aecopd Do you want consulting provider notified?: Yes Primary care physician: Marino Kamara [facility] Course: 65-year-old here patient with history of COPD hospitalized recently on 06/06/2021 acute COPD exacerbation and she was discharged home. She was diagnosed having an acute on chronic hypoxic and hypercapnic respiratory failure secondary to COPD. Unfortunately she was unable to follow up with us in the office. She is not using any maintenance inhalers other than Incruse. Her baseline spirometry has not been done. She is oxygen dependent 2 L per minute nasal cannula. She is not smoking. She comes in for another exacerbation with increased dyspnea chest tightness and wheezing. Note that she also has history of chronic atrial fibrillation. She has previous history of CVA and TIA. The patient has a normal white count of 7.8 with hemoglobin of 12.8. BUN is 20 mg creatinine of 0.7. Coags are within normal limits. Chest x-ray shows a small infiltration of the left upper lobe/lingular segment compared to the old x-ray. She is currently on DuoNeb nebulized treatments around the clock, she is also on IV Solu-Medrol. She has a T-max of 99.2 On 08/06/2020 patient seen in follow-up in the observation unit. She is still bronchospastic, and dyspneic but doing better since admission, she is on Lev aquin for antibiotic coverage, she is on nebulized bronchodilators have form of DuoNeb, she is on room air, earlier she was sat 92% on 2 L, vitals have been stable, she's been afebrile. She's had no complaints of chest pain, no hemoptysis. She continues on IV steroids at 60 mg every 8 hours, Levaquin, she is on oral anticoagulation and form of Eliquis, she is on Cordarone for heart rate control. Patient was reevaluated today on 08/07/20, remains in the observation unit, patient is still having episodes of cough and wheezing, improving however compared to the last 2 days. Patient is still not quite ready to be discharged home, but she is progressing and improving slowly but steadily. Patient is afebrile, heart rate is 76, and she is on 2 L nasal cannula. O2 saturation is ranging between 92-95%. Patient was reevaluated today on 08/08/20, remains on the observation unit, patient is slightly improving but continues to have significant cough and wheezing. Today she is basically almost like yesterday, no fever no chills no hemoptysis, but definite coughing and wheezing. Denies any chest pain no nausea no vomiting no abdominal pain. Reevaluated today on 08/09/20, patient remains in the observation unit, continues to cough and wheeze, not much better since yesterday. On physical examination she had diffuse expiratory rhonchi and wheezes, hence I would recommend adding Perforomist, will add Eladio on a trial basis, increased the Solu-Medrol dose, and obviously not quite ready for discharge planning in Patient was reevaluated today on 08/10/20, patient remains in the observation unit, significant improvement in the last 24 hours. Less cough and less wheezing less shortness of breath. On physical examination she had minimal wheezing on forced expiratory maneuver, decent airflow bilaterally, hence I would recommend discharging the patient home today and follow-up on outpatient basis. Patient Condition at Discharge: Stable Plan - Discharge Summary New Discharge Prescriptions: New Levofloxacin [Levaquin] 750 mg PO DAILY #4 tab predniSONE 10 mg PO DAILY #30 tab Budesonide-Formot 160-4.5 Mcg [Symbicort 160-4.5 Mcg Inhaler] 2 puff INHALATION BID 30 Days #1 inhaler Theophylline 24 Hour [Damien-24] 200 mg PO DAILY 30 Days #30 cap.er.24h Continue Amiodarone [Cordarone] 200 mg PO BID 30 Days #60 tab Apixaban [Eliquis] 5 mg PO BID 30 Days #60 tab Umeclidinium [place] [Incruse Ellipta] 1 puff INHALATION RT-DAILY 30 Days #1 device Montelukast [Singulair] 10 mg PO HS 30 Days #30 tab Famotidine [Pepcid] 20 mg PO BID PRN PRN Reason: Heartburn tiZANidine [Zanaflex] 4 mg PO HS Ipratropium-Albuterol Nebulize [Duoneb 0.5 mg-3 mg/3 ml Soln] 3 ml INHALATION RT-QID #120 ml Discharge Medication List Amiodarone [Cordarone] 200 mg PO BID 30 Days #60 tab 06/12/20 [Rx] Apixaban [Eliquis] 5 mg PO BID 30 Days #60 tab 06/12/20 [Rx] Montelukast [Singulair] 10 mg PO HS 30 Days #30 tab 06/12/20 [Rx] Umeclidinium [place] [Incruse Ellipta] 1 puff INHALATION RT-DAILY 30 Days #1 device 06/12/20 [Rx] Famotidine [Pepcid] 20 mg PO BID PRN 08/04/20 [History] tiZANidine [Zanaflex] 4 mg PO HS 08/04/20 [History] Levofloxacin [Levaquin] 750 mg PO DAILY #4 tab 08/08/20 [Rx] predniSONE 10 mg PO DAILY #30 tab 08/08/20 [Rx] Budesonide-Formot 160-4.5 Mcg [Symbicort 160-4.5 Mcg Inhaler] 2 puff INHALATION BID 30 Days #1 inhaler 08/10/20 [Rx] Ipratropium-Albuterol Nebulize [Duoneb 0.5 mg-3 mg/3 ml Soln] 3 ml INHALATION RT-QID #120 ml 08/10/20 [Rx] Theophylline 24 Hour [Damien-24] 200 mg PO DAILY 30 Days #30 cap.er.24h 08/10/20 [Rx] Follow up Appointment(s)/Referral(s): Frankie Pichardo MD [Primary Care Provider] - 3 Days [facility] [NON-STAFF] - As Needed Zoey Marks NPC [Nurse Practitioner] - 08/23/20 3:00 pm Patient Instructions/Handouts: COPD (Chronic Obstructive Pulmonary Disease) (DC) Activity/Diet/Wound Care/Special Instructions: activity as tolerated consistent carb diet as tolerated Home O2 continued Discharge Disposition: HOME SELF-CARE
== END 2020-08-10 14:50 | disposition home or self-care (01) | DRG 190 ==
LOC: EC 18:13 → 1SOBS 21:00 → OBSVTOIN 08-06 12:31
PROVIDERS: ADMIT Hospitalist; ATTEND Hospitalist
DX: J44.1 Chronic obstructive pulmonary disease with (acute) exacerbation (principal); J96.21 Acute and chronic respiratory failure with hypoxia; J18.9 Pneumonia, unspecified organism; J96.22 Acute and chronic respiratory failure with hypercapnia; Z99.81 Dependence on supplemental oxygen; I48.0 Paroxysmal atrial fibrillation; J44.0 Chronic obstructive pulmonary disease with (acute) lower respiratory infection; I73.9 Peripheral vascular disease, unspecified; I25.10 Atherosclerotic heart disease of native coronary artery without angina pectoris; I10 Essential (primary) hypertension; E78.5 Hyperlipidemia, unspecified; M19.90 Unspecified osteoarthritis, unspecified site; M41.9 Scoliosis, unspecified; J30.2 Other seasonal allergic rhinitis; G89.29 Other chronic pain; M54.5 Low back pain; F32.9 Major depressive disorder, single episode, unspecified; F41.9 Anxiety disorder, unspecified; I25.2 Old myocardial infarction; Z95.1 Presence of aortocoronary bypass graft; Z88.1 Allergy status to other antibiotic agents; Z88.2 Allergy status to sulfonamides; Z88.8 Allergy status to other drugs, medicaments and biological substances; Z79.899 Other long term (current) drug therapy; Z79.01 Long term (current) use of anticoagulants; Z86.718 Personal history of other venous thrombosis and embolism; Z87.891 Personal history of nicotine dependence; Z86.73 Personal history of transient ischemic attack (TIA), and cerebral infarction without residual deficits; Z83.3 Family history of diabetes mellitus; Z82.49 Family history of ischemic heart disease and other diseases of the circulatory system; Z79.51 Long term (current) use of inhaled steroids; Z98.51 Tubal ligation status; Z98.890 Other specified postprocedural states
CPT/HCPCS: 36415; 71046; 80048; 80053; 83605; 83880; 84484; 85025; 85610; 85730; 93005; 94640; 94760; 96365; 96375; 99285

== ENCOUNTER 2020-11-10 15:18 | Observation (INO) | payer OTHER ==
--- NOTE | 2020-11-10 15:32 | ED ---
SOB HPI - General Chief Complaint: Shortness of Breath Stated Complaint: SOB Time Seen by Provider: 11/10/20 15:18 Source: patient, EMS, RN notes reviewed Mode of arrival: EMS Limitations: no limitations - History of Present Illness Initial Comments: This is a 65-year-old female history of COPD who states she had the onset of shortness of breath last evening it was refractory to her home medication she did run out of her nebulizer solution. She had progressively worsening shortness of breath throughout the night and morning she has a cough with white is slightly yellow phlegm she denies any chest pain fevers chills or sweats no other symptoms reported at this time. She was brought in by EMS to feeling slightly better after 2 updrafts and a 50 mg prednisone tablets. MD Complaint: shortness of breath - Related Data Home Medications Medication Instructions Recorded Confirmed Famotidine [Pepcid] 20 mg PO BID PRN 08/04/20 08/04/20 tiZANidine [Zanaflex] 4 mg PO HS 08/04/20 08/04/20 Previous Rx's Medication Instructions Recorded Amiodarone [Cordarone] 200 mg PO BID 30 Days #60 tab 06/12/20 Apixaban [Eliquis] 5 mg PO BID 30 Days #60 tab 06/12/20 Montelukast [Singulair] 10 mg PO HS 30 Days #30 tab 06/12/20 Umeclidinium [place] [Incruse 1 puff INHALATION RT-DAILY 30 Days 06/12/20 Ellipta] #1 device Levofloxacin [Levaquin] 750 mg PO DAILY #4 tab 08/08/20 predniSONE 10 mg PO DAILY #30 tab 08/08/20 Budesonide-Formot 160-4.5 Mcg 2 puff INHALATION BID 30 Days #1 08/10/20 [Symbicort 160-4.5 Mcg Inhaler] inhaler Ipratropium-Albuterol Nebulize 3 ml INHALATION RT-QID #120 ml 08/10/20 [Duoneb 0.5 mg-3 mg/3 ml Soln] Theophylline 24 Hour [Damien-24] 200 mg PO DAILY 30 Days #30 08/10/20 cap.er.24h Allergies Allergy/AdvReac Type Severity Reaction Status Date / Time naproxen [From Naprosyn] Allergy Anaphylaxis Verified 11/10/20 15:25 Sulfa (Sulfonamide Allergy Anaphylaxis Verified 11/10/20 15:25 Antibiotics) azithromycin [From Zithromax] AdvReac does not Verified 11/10/20 15:25 take due to A-Fib Review of Systems ROS Statement: Those systems with pertinent positive or pertinent negative responses have been documented in the HPI. ROS Other: All systems not noted in ROS Statement are negative. Past Medical History Past Medical History: Atrial Fibrillation, Asthma, COPD, CVA/TIA, Myocardial Infarction ([place]), Osteoarthritis (OA) Additional Past Medical History / Comment(s): Brain aneurysum that is clipped 2001 HF, home oxygen at 2L/NC ATC, arthritis in several joints, chronic low back pain which involves L leg-numbness/tingling, scoliosis, seasonal allergies. Last Myocardial Infarction Date:: 10/19/2019 History of Any Multi-Drug Resistant Organisms: None Reported Past Surgical History: Orthopedic Surgery, Tubal Ligation Additional Past Surgical History / Comment(s): Brain aneurysum that is clipped, left shoulder rotator cuff repair, spine lumbar disc 3x fused Past Anesthesia/Blood Transfusion Reactions: No Reported Reaction Past Psychological History: Anxiety, Depression Smoking Status: Former smoker Past Alcohol Use History: None Reported Past Drug Use History: None Reported - Past Family History Father Family Medical History: Coronary Artery Disease (CAD), Diabetes Mellitus Additional Family Medical History / Comment(s): Father had 3 vessel CABG. He at the age of 69 from heart disease. Mother Family Medical History: Myocardial Infarction ([place]) Additional Family Medical History / Comment(s): Mother of a [place] at the age of 42 yrs. General Exam - General Exam Comments Initial Comments: This a well-developed well-nourished awake alert oriented 3 female Limitations: no limitations General appearance: alert, anxious, in distress Head exam: Present: atraumatic, normocephalic, normal inspection Eye exam: Present: normal appearance, PERRL, EOMI. Absent: scleral icterus, conjunctival injection, periorbital swelling ENT exam: Present: normal exam, mucous membranes moist Neck exam: Present: normal inspection. Absent: tenderness, meningismus, lymphadenopathy Respiratory exam: Present: wheezes, accessory muscle use. Absent: respiratory distress, rales, rhonchi, stridor Cardiovascular Exam: Present: regular rate, normal rhythm, normal heart sounds. Absent: systolic murmur, diastolic murmur, rubs, gallop, clicks GI/Abdominal exam: Present: soft, normal bowel sounds. Absent: distended, tenderness, guarding, rebound, rigid Extremities exam: Present: normal inspection, full ROM, normal capillary refill. Absent: tenderness, pedal edema, joint swelling, calf tenderness Back exam: Present: normal inspection Neurological exam: Present: alert, oriented X3, CN II-XII intact Psychiatric exam: Present: normal affect, normal mood Skin exam: Present: warm, dry, intact, normal color. Absent: rash Course Vital Signs 11/10/20 11/10/20 15:19 16:44 Temperature 98 F Pulse Rate 80 78 Respiratory 19 Rate Blood Pressure 165/60 O2 Sat by Pulse 100 Oximetry - Reevaluation(s) Reevaluation #1: 11/10/20 16:28 Reevaluation patient she does states she breathes better however she has diffuse wheezing and diminished breath sounds bilaterally. A nebulizer has been ordered. Reevaluation #2: 11/10/20 16:48 She get some relief after the last treatment she does demonstrate evidence of a right lower lobe infiltrate pneumonia. Due to the presentation and symptoms patient will be admitted for IV antibiotics and continued treatment. Medical Decision Making - Medical Decision Making I did discuss findings with the patient and with Dr. Champion the patient will be admitted for treatment of pneumonia and COPD exacerbation. - Lab Data Result diagrams: 11/10/20 15:32 11/10/20 15:32 Lab Results 11/10/20 11/10/20 11/10/20 Range/Units 15:32 15:32 15:32 WBC 9.4 (3.8-10.6) k/uL RBC 4.99 (3.80-5.40) m/uL Hgb 14.1 (11.4-16.0) gm/dL Hct 43.0 (34.0-46.0) % MCV 86.1 (80.0-100.0) fL MCH 28.3 (25.0-35.0) pg MCHC 32.9 (31.0-37.0) g/dL RDW 15.2 (11.5-15.5) % Plt Count 255 (150-450) k/uL MPV 6.7 Neutrophils % 74 % Lymphocytes % 13 % Monocytes % 5 % Eosinophils % 5 % Basophils % 2 % Neutrophils # 7.0 (1.3-7.7) k/uL Lymphocytes # 1.2 (1.0-4.8) k/uL Monocytes # 0.5 (0-1.0) k/uL Eosinophils # 0.5 (0-0.7) k/uL Basophils # 0.1 (0-0.2) k/uL PT 10.7 (9.0-12.0) sec INR 1.0 (<1.2) APTT 24.5 (22.0-30.0) sec D-Dimer 0.51 (<0.60) mg/L FEU Sodium 138 (137-145) mmol/L Potassium 4.9 (3.5-5.1) mmol/L Chloride 103 (98-107) mmol/L Carbon Dioxide 31 H (22-30) mmol/L Anion Gap 4 mmol/L BUN 18 H (7-17) mg/dL Creatinine 1.07 H (0.52-1.04) mg/dL Est GFR (CKD-EPI)AfAm 64 (>60 ml/min/1.73 sqM) Est GFR (CKD-EPI)NonAf 56 (>60 ml/min/1.73 sqM) Glucose 121 H (74-99) mg/dL Plasma Lactic Acid Jack (0.7-2.0) mmol/L Calcium 9.4 (8.4-10.2) mg/dL Magnesium 2.0 (1.6-2.3) mg/dL Total Bilirubin 0.5 (0.2-1.3) mg/dL AST 29 (14-36) U/L ALT 22 (4-34) U/L Alkaline Phosphatase 85 (38-126) U/L Creatine Kinase 119 (30-135) U/L Troponin I (0.000-0.034) ng/mL NT-Pro-B Natriuret Pep pg/mL Total Protein 6.8 (6.3-8.2) g/dL Albumin 4.0 (3.5-5.0) g/dL 11/10/20 11/10/20 11/10/20 Range/Units 15:32 15:32 15:32 WBC (3.8-10.6) k/uL RBC (3.80-5.40) m/uL Hgb (11.4-16.0) gm/dL Hct (34.0-46.0) % MCV (80.0-100.0) fL MCH (25.0-35.0) pg MCHC (31.0-37.0) g/dL RDW (11.5-15.5) % Plt Count (150-450) k/uL MPV Neutrophils % % Lymphocytes % % Monocytes % % Eosinophils % % Basophils % % Neutrophils # (1.3-7.7) k/uL Lymphocytes # (1.0-4.8) k/uL Monocytes # (0-1.0) k/uL Eosinophils # (0-0.7) k/uL Basophils # (0-0.2) k/uL PT (9.0-12.0) sec INR (<1.2) APTT (22.0-30.0) sec D-Dimer (<0.60) mg/L FEU Sodium (137-145) mmol/L Potassium (3.5-5.1) mmol/L Chloride (98-107) mmol/L Carbon Dioxide (22-30) mmol/L Anion Gap mmol/L BUN (7-17) mg/dL Creatinine (0.52-1.04) mg/dL Est GFR (CKD-EPI)AfAm (>60 ml/min/1.73 sqM) Est GFR (CKD-EPI)NonAf (>60 ml/min/1.73 sqM) Glucose (74-99) mg/dL Plasma Lactic Acid Jack 1.0 (0.7-2.0) mmol/L Calcium (8.4-10.2) mg/dL Magnesium (1.6-2.3) mg/dL Total Bilirubin (0.2-1.3) mg/dL AST (14-36) U/L ALT (4-34) U/L Alkaline Phosphatase (38-126) U/L Creatine Kinase (30-135) U/L Troponin I <0.012 (0.000-0.034) ng/mL NT-Pro-B Natriuret Pep 458 pg/mL Total Protein (6.3-8.2) g/dL Albumin (3.5-5.0) g/dL - Radiology Data Radiology results: image reviewed (Lower aspect right upper lobe infiltrate) Critical Care Time Critical Care Time: Yes Total Critical Care Time: 31 Critical Care Time: Critical care time includes initial presentation with history physical labs x- rays discussed with paramedics upon arrival for reevaluation the patient response to therapy discuss with the admitting physician Dr. Champion admission orders documentation the above. Disposition Clinical Impression: Pneumonia, Encounter for observation due to foreign body in airway, Dehydration, Acute respiratory distress syndrome in adult Disposition: ADMITTED IP TO THIS HOSP Condition: Fair Referrals: Frankie Pichardo MD [Primary Care Provider] - 1-2 days
[2020-11-10 15:43] LABS: Basophils # (A) 0.1 k/uL (0-0.2); Basophils % (A) 2 %; Eosinophils # (A) 0.5 k/uL (0-0.7); Eosinophils % (A) 5 %; HGB 14.1 gm/dL (11.4-16.0); Lymphocytes # (A) 1.2 k/uL (1.0-4.8); Lymphocytes % (A) 13 %; MCH 28.3 pg (25.0-35.0); MCHC 32.9 g/dL (31.0-37.0); MCV 86.1 fL (80.0-100.0); Mean Platelet Volume 6.7; Monocytes # (A) 0.5 k/uL (0-1.0); Monocytes % (A) 5 %; Neutrophils % (A) 74 %; Platelet Count 255 k/uL (150-450); RBC 4.99 m/uL (3.80-5.40); RDW 15.2 % (11.5-15.5); WBC 9.4 k/uL (3.8-10.6)
[2020-11-10 15:54] LABS: Calcium 9.4 mg/dL (8.4-10.2); Potassium 4.9 mmol/L (3.5-5.1); Total Bilirubin 0.5 mg/dL (0.2-1.3); Total Protein 6.8 g/dL (6.3-8.2)
[2020-11-10 15:57] LABS: D-Dimer 0.51 mg/L FEU (<0.60); Partial Thromboplastin Time 24.5 sec (22.0-30.0); Prothrombin Time 10.7 sec (9.0-12.0)
[2020-11-10] MEDS ORDERED: IPRATROPIUM-ALBUTEROL 3 ML NEB INHALATION STA (16:28)
[2020-11-10] MEDS ORDERED: cefTRIAXone IN SWFI 1,000 MG/10 ML SYRINGE IVP STA (16:47)
[2020-11-10] MEDS ORDERED: PNEUMONIA PROTOCOL UTILIZED 1 EACH MISC PO PRN (16:58)
[2020-11-10] MEDS ORDERED: FAMOTIDINE 20 MG TAB PO PRN (17:01)
--- NOTE | 2020-11-10 17:10 | XR ---
EXAMINATION TYPE: XR chest 2V DATE OF EXAM: 11/10/2020 COMPARISON: 08/04/2020. HISTORY: Shortness of breath. TECHNIQUE: Frontal and lateral views of the chest are obtained. FINDINGS: There are mild to moderate opacities in the right mid lung and and bilateral lower lungs. No pleural effusion, or pneumothorax seen. The cardiac silhouette size is within normal limits. Th e osseous structures are intact. IMPRESSION: Mild to moderate opacities, concerning for infiltrates.
[2020-11-10] MEDS: SODIUM CHLORIDE 0.9% 1,000 ML IV SCH (17:42)
[2020-11-10] MEDS: methylPREDNISolone SOD SUCCI 125 MG/2 ML VIAL IV SCH ×2 (18:45→23:34)
[2020-11-10] MEDS ORDERED: IPRATROPIUM-ALBUTEROL 3 ML NEB INHALATION PRN (19:24)
[2020-11-10] MEDS: IPRATROPIUM-ALBUTEROL 3 ML NEB INHALATION SCH (19:38)
[2020-11-10] MEDS ORDERED: IPRATROPIUM-ALBUTEROL 3 ML NEB INHALATION SCH (20:00)
[2020-11-10] MEDS: MONTELUKAST 10 MG TAB PO SCH (21:16)
[2020-11-10] MEDS: APIXABAN 5 MG TAB PO SCH (21:16)
[2020-11-10] MEDS: AMIODARONE 200 MG TAB PO SCH (21:16)
[2020-11-10] MEDS: tiZANidine 4 MG TAB PO SCH (21:16)
[2020-11-11] MEDS: SODIUM CHLORIDE 0.9% 1,000 ML IV SCH ×3 (02:26→22:36)
[2020-11-11] MEDS: methylPREDNISolone SOD SUCCI 125 MG/2 ML VIAL IV SCH ×2 (06:13→12:32)
[2020-11-11] MEDS: IPRATROPIUM-ALBUTEROL 3 ML NEB INHALATION SCH ×4 (07:03→20:25)
[2020-11-11] MEDS ORDERED: NON FORMULARY DRUG (Umeclidinium Bromide [Incruse Ellipta] 62.5 MCG Blst.W.Dev) INHALATION SCH (08:00)
[2020-11-11] MEDS: AMIODARONE 200 MG TAB PO SCH ×2 (08:48→22:32)
[2020-11-11] MEDS: THEOPHYLLINE 24 HOUR 200 MG CAP.ER.24H PO SCH (08:48)
[2020-11-11] MEDS: APIXABAN 5 MG TAB PO SCH ×2 (08:48→22:32)
--- NOTE | 2020-11-11 08:52 | XR ---
EXAMINATION TYPE: XR chest 2V DATE OF EXAM: 11/11/2020 COMPARISON: Chest x-ray 11/10/2020 HISTORY: Pneumonia TECHNIQUE: Frontal and lateral views of the chest are obtained. FINDINGS: There is some improvement in aeration prominent lung volumes suggest underlying COPD. in t he right upper lobe. No evident pneumothorax or pleural effusion. Cardiac mediastinal silhouette is s table. IMPRESSION: There is some improvement in aeration. Findings are consistent with pneumonia.
--- NOTE | 2020-11-11 14:27 | P.HPIM ---
History of Present Illness Patient is a pleasant 65-year-old female with known history of COPD on 2 L of oxygen and came in with complaints of shortness of breath that out of her nebulizer solution. Patient also having significant cough with yellowish sputum production patient had a chest x-ray which is suspicious for light lower lobe pneumonia although patient doesn't have any fever chills patient doesn't have any leukocytosis patient was started on Rocephin and azithromycin and was subsequently admitted. Patient was also started on high-dose systemic steroids which I'm cutting it down at this time. Patient had pneumonia in month of July. Patient alerted him is now whitish in color after the antibiotics. Patient quit smoking, presently not a smoker Review of Systems REVIEW OF SYSTEMS: CONSTITUTIONAL: No fever, no malaise, no fatigue. HEENT: No recent visual problems or hearing problems. Denied any sore throat. CARDIOVASCULAR: No chest pain, orthopnea, PND, no palpitations, no syncope. PULMONARY: no hemoptysis. GASTROINTESTINAL: No diarrhea, no nausea, no vomiting, no abdominal pain. NEUROLOGICAL: No headaches, no weakness, no numbness. HEMATOLOGICAL: Denies any bleeding or petechiae. GENITOURINARY: Denies any burning micturition, frequency, or urgency. MUSCULOSKELETAL/RHEUMATOLOGICAL: Denies any joint pain, swelling, or any muscle pain. ENDOCRINE: Denies any polyuria or polydipsia. The rest of the 14-point review of systems is negative. Past Medical History Past Medical History: Atrial Fibrillation, Asthma, COPD, CVA/TIA, Myocardial Infarction (MA), Osteoarthritis (OA) Additional Past Medical History / Comment(s): Brain aneurysum that is clipped 2001 HF, home oxygen at 2L/[place] ATC, arthritis in several joints, chronic low back pain which involves L leg-numbness/tingling, scoliosis, seasonal allergies. Last Myocardial Infarction Date:: 10/19/2019 History of Any Multi-Drug Resistant Organisms: None Reported Past Surgical History: Orthopedic Surgery, Tubal Ligation Additional Past Surgical History / Comment(s): Brain aneurysum that is clipped, left shoulder rotator cuff repair, spine lumbar disc 3x fused Past Anesthesia/Blood Transfusion Reactions: No Reported Reaction Past Psychological History: Anxiety, Depression Additional Psychological History / Comment(s): She uses no assistive device. She drives. She has home oxygen at 2L/NC ATC and a nebulizer. Smoking Status: Former smoker Past Alcohol Use History: None Reported Additional Past Alcohol Use History / Comment(s): Pt started smoking in 1975 and has quit august 2019 Past Drug Use History: None Reported - Past Family History Father Family Medical History: Coronary Artery Disease (CAD), Diabetes Mellitus Additional Family Medical History / Comment(s): Father had 3 vessel CABG. He at the age of 69 from heart disease. Mother Family Medical History: Myocardial Infarction (MA) Additional Family Medical History / Comment(s): Mother of a MA at the age of 42 yrs. Medications and Allergies Home Medications Medication Instructions Recorded Confirmed Type Amiodarone [Cordarone] 200 mg PO BID 30 Days #60 tab 06/12/20 11/10/20 Rx Apixaban [Eliquis] 5 mg PO BID 30 Days #60 tab 06/12/20 11/10/20 Rx Montelukast [Singulair] 10 mg PO HS 30 Days #30 tab 06/12/20 11/10/20 Rx Famotidine [Pepcid] 20 mg PO BID PRN 08/04/20 11/10/20 History Aspirin 81 mg PO DAILY 11/10/20 11/10/20 History Atorvastatin [Lipitor] 80 mg PO HS 11/10/20 11/10/20 History Budesonide-Formot 160-4.5 Mcg 2 puff INHALATION RT-BID 11/10/20 11/10/20 History [Symbicort 160-4.5 Mcg Inhaler] Tiotropium [place] [Spiriva] 1 cap INHALATION RT-DAILY 11/10/20 11/10/20 History lisinopriL [Zestril] 5 mg PO DAILY 11/10/20 11/10/20 History Allergies Allergy/AdvReac Type Severity Reaction Status Date / Time naproxen [From Naprosyn] Allergy Anaphylaxis Verified 11/10/20 17:14 Sulfa (Sulfonamide Allergy Anaphylaxis Verified 11/10/20 17:14 Antibiotics) azithromycin [From Zithromax] AdvReac does not Verified 11/10/20 17:14 take due to A-Fib Physical Exam Vitals: Vital Signs Temp Pulse Pulse Resp BP BP Pulse Ox 11/11/20 11:09 76 11/11/20 10:57 76 11/11/20 09:00 98 F 77 16 146/72 90 L 11/11/20 07:15 74 11/11/20 07:03 72 11/11/20 03:30 97.5 F L 67 147/73 94 L 11/10/20 19:45 98.5 F 76 153/75 95 11/10/20 19:32 72 11/10/20 19:22 69 11/10/20 18:31 98.1 F 69 16 154/72 93 L 11/10/20 17:25 92 18 147/55 95 11/10/20 16:56 78 11/10/20 16:44 78 11/10/20 15:19 98 F 80 19 165/60 100 Intake and Output 11/10/20 11/11/20 11/11/20 22:59 06:59 14:59 Intake Total 500 Balance 500 Intake: Intake, IV Titration 300 Amount Sodium Chloride 0.9% 1, 300 000 ml @ 100 mls/hr IV . Q10H JULIANE Rx#:[id number] Oral 200 Other: Voiding Method Toilet Toilet Toilet # Voids 1 2 Weight 86.183 kg PHYSICAL EXAMINATION: GENERAL: The patient is alert and oriented x3, not in any acute distress. Well developed, well nourished. HEENT: Pupils are round and equally reacting to light. EOMI. No scleral icterus. No conjunctival pallor. Normocephalic, atraumatic. No pharyngeal erythema. No thyromegaly. CARDIOVASCULAR: S1 and S2 present. No murmurs, rubs, or gallops. PULMONARY: Chest is clear to auscultation, no wheezing or crackles. ABDOMEN: Soft, nontender, nondistended, normoactive bowel sounds. No palpable organomegaly. MUSCULOSKELETAL: No joint swelling or deformity. EXTREMITIES: No cyanosis, clubbing, or pedal edema. NEUROLOGICAL: Gross neurological examination did not reveal any focal deficits. SKIN: No rashes. Results CBC & Chem 7: 11/10/20 15:32 11/10/20 15:32 Labs: Abnormal Lab Results - Last 24 Hours (Table) 11/10/20 Range/Units 15:32 Carbon Dioxide 31 H (22-30) mmol/L BUN 18 H (7-17) mg/dL Creatinine 1.07 H (0.52-1.04) mg/dL Glucose 121 H (74-99) mg/dL Microbiology - Last 24 Hours (Table) 11/11/20 07:00 Gram Stain - Preliminary Sputum Sputum Culture - Preliminary Thrombosis Risk Factor Assmnt - Choose All That Apply Any of the Below Risk Factors Present?: Yes Each Factor Represents 1 point: Abnormal pulmonary function (COPD), Obesity (BMI >25) Other Risk Factors: Yes Each Risk Factor Represents 2 Points: Age 61-74 years Thrombosis Risk Factor Assessment Total Risk Factor Score: 4 Thrombosis Risk Factor Assessment Level: Moderate Risk Assessment and Plan Plan: -Shadows of breath most probably secondary to COPD exacerbation patient has chronic hypercapnic respiratory failure. We'll cut down the stairs to 40 IV twice a day patient probably can be discharged tomorrow -Possibility of pneumonia community-acquired right lower lobe patient will be continued on Rocephin and azithromycin patient mostly has bronchitis the infiltrate in the right lower lobe of the chest x-ray is not convincing and patient doesn't have any fever or leukocytosis -Coronary artery disease with previous angioplasty and stenting -Peripheral vascular disease [place]-hyperlipidemia -Cerebral aneurysm with clipping in the past -Atrial fibrillation presently sinus rhythm, presently on Eliquis which will be continued
[2020-11-11] MEDS ORDERED: HYDROcodone/APAP 5-325MG 1 EACH TAB PO PRN (16:21)
[2020-11-11] MEDS: MONTELUKAST 10 MG TAB PO SCH (22:32)
[2020-11-11] MEDS: methylPREDNISolone SOD SUCCI 40 MG/ML 1 ML VIAL IV SCH (22:32)
[2020-11-11] MEDS: tiZANidine 4 MG TAB PO SCH (22:32)
[2020-11-12 06:23] VITALS: RESP 18
[2020-11-12] MEDS: IPRATROPIUM-ALBUTEROL 3 ML NEB INHALATION SCH ×2 (08:15→12:08)
[2020-11-12] MEDS: methylPREDNISolone SOD SUCCI 40 MG/ML 1 ML VIAL IV SCH (08:53)
[2020-11-12] MEDS: THEOPHYLLINE 24 HOUR 200 MG CAP.ER.24H PO SCH (08:53)
[2020-11-12] MEDS: AMIODARONE 200 MG TAB PO SCH (08:53)
[2020-11-12] MEDS: APIXABAN 5 MG TAB PO SCH (08:53)
[2020-11-12 09:44] VITALS: BP 161/81; TEMP 98
[2020-11-12] MEDS: SODIUM CHLORIDE 0.9% 1,000 ML IV SCH (11:24)
[2020-11-12 12:12] VITALS: PULSE 80
--- NOTE | 2020-11-12 15:15 | P.DS ---
Providers Date of admission: 11/10/20 16:58 Attending physician: Natividad Champion Primary care physician: Marino Kamara [facility] Course: 65-year-old female with known history of COPD on 2 L of oxygen and came in with complaints of shortness of breath that out of her nebulizer solution. Patient also having significant cough with yellowish sputum production patient had a chest x-ray which is suspicious for light lower lobe pneumonia although patient doesn't have any fever chills patient doesn't have any leukocytosis patient was started on Rocephin and azithromycin and was subsequently admitted. Patient was also started on high-dose systemic steroids which I'm cutting it down at this time. Patient had pneumonia in month of July. Patient alerted him is now whitish in color after the antibiotics. Patient quit smoking, presently not a smoker. 11/12/2020 Patient is feeling much better today. Patient will be discharged today to follow up with PCP and the residential property consultant outpatient. Patient will be discharged on Ceftin. PHYSICAL EXAMINATION: GENERAL: The patient is alert and oriented x3, not in any acute distress. Well developed, well nourished. HEENT: Pupils are round and equally reacting to light. EOMI. No scleral icterus. No conjunctival pallor. Normocephalic, atraumatic. No pharyngeal erythema. No thyromegaly. CARDIOVASCULAR: S1 and S2 present. No murmurs, rubs, or gallops. PULMONARY: Significant improvement in wheezing mild bilateral rhonchi was appreciated ABDOMEN: Soft, nontender, nondistended, normoactive bowel sounds. No palpable organomegaly. MUSCULOSKELETAL: No joint swelling or deformity. EXTREMITIES: No cyanosis, clubbing, or pedal edema. NEUROLOGICAL: Gross neurological examination did not reveal any focal deficits. SKIN: No rashes. Assessment and Plan Plan: -Shortness of breath most probably secondary to COPD exacerbation patient has chronic hypercapnic respiratory failure. We'll cut down the stairs to 40 IV twice a day patient probably can be discharged tomorrow -Possibility of pneumonia community-acquired right lower lobe patient is being discharged on Ceftin patient mostly has bronchitis the infiltrate in the right lower lobe of the chest x-ray is not convincing and patient doesn't have any fever or leukocytosis -Coronary artery disease with previous angioplasty and stenting -Peripheral vascular disease -hyperlipidemia -Cerebral aneurysm with clipping in the past -Atrial fibrillation presently sinus rhythm, presently on Eliquis which will be continued Patient Condition at Discharge: Fair Plan - Discharge Summary Discharge Rx Participant: No New Discharge Prescriptions: New Albuterol Nebulized [Ventolin Nebulized] 2.5 mg INHALATION Q6H PRN #90 nebu PRN Reason: Wheezing Cefuroxime Axetil [Ceftin] 500 mg PO BID 4 Days #8 tab Continue Amiodarone [Cordarone] 200 mg PO BID 30 Days #60 tab Apixaban [Eliquis] 5 mg PO BID 30 Days #60 tab Montelukast [Singulair] 10 mg PO HS 30 Days #30 tab Famotidine [Pepcid] 20 mg PO BID PRN PRN Reason: Heartburn lisinopriL [Zestril] 5 mg PO DAILY Tiotropium [place] [Spiriva] 1 cap INHALATION RT-DAILY Atorvastatin [Lipitor] 80 mg PO HS Aspirin 81 mg PO DAILY Budesonide-Formot 160-4.5 Mcg [Symbicort 160-4.5 Mcg Inhaler] 2 puff INHALATION RT-BID Discharge Medication List Amiodarone [Cordarone] 200 mg PO BID 30 Days #60 tab 06/12/20 [Rx] Apixaban [Eliquis] 5 mg PO BID 30 Days #60 tab 06/12/20 [Rx] Montelukast [Singulair] 10 mg PO HS 30 Days #30 tab 06/12/20 [Rx] Famotidine [Pepcid] 20 mg PO BID PRN 08/04/20 [History] Aspirin 81 mg PO DAILY 11/10/20 [History] Atorvastatin [Lipitor] 80 mg PO HS 11/10/20 [History] Budesonide-Formot 160-4.5 Mcg [Symbicort 160-4.5 Mcg Inhaler] 2 puff INHALATION RT-BID 11/10/20 [History] Tiotropium [place] [Spiriva] 1 cap INHALATION RT-DAILY 11/10/20 [History] lisinopriL [Zestril] 5 mg PO DAILY 11/10/20 [History] Albuterol Nebulized [Ventolin Nebulized] 2.5 mg INHALATION Q6H PRN #90 nebu 11/12/20 [Rx] Cefuroxime Axetil [Ceftin] 500 mg PO BID 4 Days #8 tab 11/12/20 [Rx] Follow up Appointment(s)/Referral(s): Frankie Pichardo MD [Primary Care Provider] - 11/15/20 10:10 am Uma Artis MD [STAFF PHYSICIAN] - 11/28/20 10:30 am Patient Instructions/Handouts: COPD (Chronic Obstructive Pulmonary Disease) (DC), Pneumonia (DC) Discharge Disposition: HOME SELF-CARE
== END 2020-11-12 13:23 | disposition home or self-care (01) ==
LOC: EC 15:18 → 1SOBS 16:58
PROVIDERS: ADMIT Internal Medicine; ATTEND Internal Medicine
DX: J44.1 Chronic obstructive pulmonary disease with (acute) exacerbation (principal); J96.12 Chronic respiratory failure with hypercapnia; R91.8 Other nonspecific abnormal finding of lung field; E86.0 Dehydration; I25.10 Atherosclerotic heart disease of native coronary artery without angina pectoris; I73.9 Peripheral vascular disease, unspecified; E78.5 Hyperlipidemia, unspecified; I48.91 Unspecified atrial fibrillation; I45.4 Nonspecific intraventricular block; I25.2 Old myocardial infarction; M19.90 Unspecified osteoarthritis, unspecified site; M89.49 Other hypertrophic osteoarthropathy, multiple sites; G89.29 Other chronic pain; M54.5 Low back pain; R20.0 Anesthesia of skin; R20.2 Paresthesia of skin; Z20.828 Contact with and (suspected) exposure to other viral communicable diseases; M41.9 Scoliosis, unspecified; J30.2 Other seasonal allergic rhinitis; F41.9 Anxiety disorder, unspecified; F32.9 Major depressive disorder, single episode, unspecified; E66.9 Obesity, unspecified; Z91.14 Patient's other noncompliance with medication regimen; Z79.899 Other long term (current) drug therapy; Z79.01 Long term (current) use of anticoagulants; Z79.52 Long term (current) use of systemic steroids; Z79.51 Long term (current) use of inhaled steroids; Z88.6 Allergy status to analgesic agent; Z88.2 Allergy status to sulfonamides; Z88.1 Allergy status to other antibiotic agents; Z86.73 Personal history of transient ischemic attack (TIA), and cerebral infarction without residual deficits; Z98.890 Other specified postprocedural states; Z99.81 Dependence on supplemental oxygen; Z98.51 Tubal ligation status; Z98.1 Arthrodesis status; Z87.891 Personal history of nicotine dependence; Z87.01 Personal history of pneumonia (recurrent); Z95.5 Presence of coronary angioplasty implant and graft; Z68.29 Body mass index [BMI] 29.0-29.9, adult; Z83.3 Family history of diabetes mellitus; Z82.49 Family history of ischemic heart disease and other diseases of the circulatory system
CPT/HCPCS: 96361 ×3; 96365; 96366; 96375; 96376 ×4; 99291; 36415; 94640 ×6; 93005; 85379; 83880; 80053; 82550; 83605; 83735; 84484; 85025; 85610; 85730; 87040; 87070; 87205; 87635; 71046 ×2; G0378 ×3; J2920 ×2; J2930 ×2; J0696 ×3

== ENCOUNTER 2021-01-08 17:28 | Inpatient (IN) | payer OTHER ==
[2021-01-08] MEDS ORDERED: ALBUTEROL NEBULIZED 2.5 MG/3 ML INHALATION STA (18:23)
[2021-01-08] MEDS ORDERED: IPRATROPIUM 0.5 MG/2.5 ML NEBU INHALATION STA (18:23)
--- NOTE | 2021-01-08 18:33 | ED ---
General Adult HPI - General Chief complaint: Shortness of Breath Stated complaint: SOB Time Seen by Provider: 01/08/21 17:40 Source: patient, EMS, RN notes reviewed, old records reviewed Mode of arrival: EMS Limitations: no limitations - History of Present Illness Initial comments: This is a 65-year-old female presents emergency department stating she has a past medical history for COPD per patient states she's been battling her COPD for a week now but the symptoms are worsening and any exertion even walking across the room causes her severe shortness of breath. Patient states she can no longer handle home by herself. Patient states she is on oxygen at home and she is increased it has not helped. Patient denies any chest pain or palpitations. Patient denies any fever chills or cough per patient denies any cold exposure. Patient denies any lightheadedness dizziness or near syncopal episode per patient denies abdominal pain patient denies any nausea vomiting diarrhea per patient denies any calf tenderness or leg swelling. - Related Data Home Medications Medication Instructions Recorded Confirmed Famotidine [Pepcid] 20 mg PO BID 08/04/20 01/08/21 Atorvastatin [Lipitor] 80 mg PO HS 11/10/20 01/08/21 Budesonide-Formot 160-4.5 Mcg 2 puff INHALATION RT-BID 11/10/20 01/08/21 [Symbicort 160-4.5 Mcg Inhaler] Tiotropium [place] [Spiriva] 1 cap INHALATION RT-DAILY 11/10/20 01/08/21 lisinopriL [Zestril] 5 mg PO DAILY 11/10/20 01/08/21 Albuterol Nebulized [Ventolin 2.5 mg INHALATION Q6H PRN 01/08/21 01/08/21 Nebulized] Previous Rx's Medication Instructions Recorded Amiodarone [Cordarone] 200 mg PO BID 30 Days #60 tab 06/12/20 Apixaban [Eliquis] 5 mg PO BID 30 Days #60 tab 06/12/20 Montelukast [Singulair] 10 mg PO HS 30 Days #30 tab 06/12/20 Allergies Allergy/AdvReac Type Severity Reaction Status Date / Time naproxen [From Naprosyn] Allergy Anaphylaxis Verified 01/08/21 18:59 Sulfa (Sulfonamide Allergy Anaphylaxis Verified 01/08/21 18:59 Antibiotics) azithromycin [From Zithromax] AdvReac does not Verified 01/08/21 18:59 take due to A-Fib Review of Systems ROS Statement: Those systems with pertinent positive or pertinent negative responses have been documented in the HPI. ROS Other: All systems not noted in ROS Statement are negative. Past Medical History Past Medical History: Atrial Fibrillation, Asthma, COPD, CVA/TIA, Myocardial Infarction (MT), Osteoarthritis (OA) Additional Past Medical History / Comment(s): Brain aneurysum that is clipped 2001 HF, home oxygen at 2L/[place] ATC, arthritis in several joints, chronic low back pain which involves L leg-numbness/tingling, scoliosis, seasonal allergies. Last Myocardial Infarction Date:: 10/19/2019 History of Any Multi-Drug Resistant Organisms: None Reported Past Surgical History: Orthopedic Surgery, Tubal Ligation Additional Past Surgical History / Comment(s): Brain aneurysum that is clipped, left shoulder rotator cuff repair, spine lumbar disc 3x fused Past Anesthesia/Blood Transfusion Reactions: No Reported Reaction Past Psychological History: Anxiety, Depression Smoking Status: Former smoker Past Alcohol Use History: None Reported Past Drug Use History: None Reported - Past Family History Father Family Medical History: Coronary Artery Disease (CAD), Diabetes Mellitus Additional Family Medical History / Comment(s): Father had 3 vessel CABG. He at the age of 69 from heart disease. Mother Family Medical History: Myocardial Infarction (MT) Additional Family Medical History / Comment(s): Mother of a MT at the age of 42 yrs. General Exam - General Exam Comments Initial Comments: GENERAL: Patient is well-developed and well-nourished. Patient is nontoxic and well- hydrated and is in moderate distress. ENT: Neck is soft and supple. No significant lymphadenopathy is noted. Oropharynx is clear. Moist mucous membranes. Neck has full range of motion without eliciting any pain. EYES: The sclera were anicteric and conjunctiva were pink and moist. Extraocular movements were intact and pupils were equal round and reactive to light. Eyelids were unremarkable. PULMONARY: Unlabored respirations. Good breath sounds bilaterally. Diffuse wheezing CARDIOVASCULAR: There is a regular rate and rhythm without any murmurs gallops or rubs. ABDOMEN: Soft and nontender with normal bowel sounds. No palpable organomegaly was noted. There is no palpable pulsatile mass. SKIN: Skin is clear with no lesions or rashes and otherwise unremarkable. NEUROLOGIC: Patient is alert and oriented x3. Cranial nerves II through XII are grossly intact. Motor and sensory are also intact. Normal speech, volume and content. Symmetrical smile. MUSCULOSKELETAL: Normal extremities with adequate strength and full range of motion. No lower extremity swelling or edema. No calf tenderness. LYMPHATICS: No significant lymphadenopathy is noted PSYCHIATRIC: Normal psychiatric evaluation. Limitations: no limitations Course Vital Signs 01/08/21 01/08/21 01/08/21 17:40 19:32 19:49 Temperature 98.0 F Pulse Rate 78 74 76 Respiratory 20 20 18 Rate Blood Pressure 167/66 O2 Sat by Pulse 94 L Oximetry Medical Decision Making - Medical Decision Making EKG shows normal sinus rhythm at 74 bpm OK interval 206 QRS is 146 QT interval 438 QTC is 46. Patient's EKG shows no ST segment elevation or depression. Patient has a right bundle kassandra block. Patient's oxygenation was 85 on 3 L when I first entered the room. X-ray shows increased interstitial infiltrates. Patient received 3 albuterol treatments in a row. Patient did feel better after those. Patient also received steroids. Patient will continue steroids on the floor. Patient will be admitted I spoke with Dr. rob he agreed to admit the patient I wrote admitting orders I consult the pulmonary - Lab Data Result diagrams: 01/08/21 18:31 01/08/21 18:31 Lab Results 01/08/21 01/08/21 01/08/21 Range/Units 18:31 18:31 18:31 WBC 8.4 (3.8-10.6) k/uL RBC 4.78 (3.80-5.40) m/uL Hgb 13.4 (11.4-16.0) gm/dL Hct 41.6 (34.0-46.0) % MCV 87.0 (80.0-100.0) fL MCH 28.0 (25.0-35.0) pg MCHC 32.2 (31.0-37.0) g/dL RDW 15.0 (11.5-15.5) % Plt Count 228 (150-450) k/uL MPV 7.8 Neutrophils % 61 % Lymphocytes % 12 % Monocytes % 5 % Eosinophils % 19 % Basophils % 1 % Neutrophils # 5.1 (1.3-7.7) k/uL Lymphocytes # 1.0 (1.0-4.8) k/uL Monocytes # 0.5 (0-1.0) k/uL Eosinophils # 1.6 H (0-0.7) k/uL Basophils # 0.1 (0-0.2) k/uL PT 10.6 (9.0-12.0) sec INR 1.0 (<1.2) APTT 24.1 (22.0-30.0) sec Sodium 140 (137-145) mmol/L Potassium 4.1 (3.5-5.1) mmol/L Chloride 103 (98-107) mmol/L Carbon Dioxide 28 (22-30) mmol/L Anion Gap 9 mmol/L BUN 18 H (7-17) mg/dL Creatinine 0.66 (0.52-1.04) mg/dL Est GFR (CKD-EPI)AfAm >90 (>60 ml/min/1.73 sqM) Est GFR (CKD-EPI)NonAf >90 (>60 ml/min/1.73 sqM) Glucose 98 (74-99) mg/dL Plasma Lactic Acid Jack (0.7-2.0) mmol/L Calcium 9.3 (8.4-10.2) mg/dL Total Bilirubin 0.7 (0.2-1.3) mg/dL AST 49 H (14-36) U/L ALT 62 H (4-34) U/L Alkaline Phosphatase 70 (38-126) U/L Troponin I (0.000-0.034) ng/mL Total Protein 6.6 (6.3-8.2) g/dL Albumin 3.9 (3.5-5.0) g/dL 01/08/21 01/08/21 Range/Units 18:31 18:31 WBC (3.8-10.6) k/uL RBC (3.80-5.40) m/uL Hgb (11.4-16.0) gm/dL Hct (34.0-46.0) % MCV (80.0-100.0) fL MCH (25.0-35.0) pg MCHC (31.0-37.0) g/dL RDW (11.5-15.5) % Plt Count (150-450) k/uL MPV Neutrophils % % Lymphocytes % % Monocytes % % Eosinophils % % Basophils % % Neutrophils # (1.3-7.7) k/uL Lymphocytes # (1.0-4.8) k/uL Monocytes # (0-1.0) k/uL Eosinophils # (0-0.7) k/uL Basophils # (0-0.2) k/uL PT (9.0-12.0) sec INR (<1.2) APTT (22.0-30.0) sec Sodium (137-145) mmol/L Potassium (3.5-5.1) mmol/L Chloride (98-107) mmol/L Carbon Dioxide (22-30) mmol/L Anion Gap mmol/L BUN (7-17) mg/dL Creatinine (0.52-1.04) mg/dL Est GFR (CKD-EPI)AfAm (>60 ml/min/1.73 sqM) Est GFR (CKD-EPI)NonAf (>60 ml/min/1.73 sqM) Glucose (74-99) mg/dL Plasma Lactic Acid Jack 1.0 (0.7-2.0) mmol/L Calcium (8.4-10.2) mg/dL Total Bilirubin (0.2-1.3) mg/dL AST (14-36) U/L ALT (4-34) U/L Alkaline Phosphatase (38-126) U/L Troponin I <0.012 (0.000-0.034) ng/mL Total Protein (6.3-8.2) g/dL Albumin (3.5-5.0) g/dL Critical Care Time Critical Care Time: Yes Total Critical Care Time: 35 Disposition Clinical Impression: COPD exacerbation Disposition: ADMITTED IP TO THIS HOSP Is patient prescribed a controlled substance at d/c from ED?: No Referrals: Frankie Pichardo MD [Primary Care Provider] - 1-2 days Time of Disposition: 20:53
[2021-01-08 18:40] LABS: Basophils # (A) 0.1 k/uL (0-0.2); Basophils % (A) 1 %; Eosinophils # (A) 1.6 k/uL (0-0.7); Eosinophils % (A) 19 %; HCT 41.6 % (34.0-46.0); HGB 13.4 gm/dL (11.4-16.0); Lymphocytes % (A) 12 %; MCHC 32.2 g/dL (31.0-37.0); Mean Platelet Volume 7.8; Monocytes # (A) 0.5 k/uL (0-1.0); Monocytes % (A) 5 %; Neutrophils # (A) 5.1 k/uL (1.3-7.7); Neutrophils % (A) 61 %; Platelet Count 228 k/uL (150-450); RBC 4.78 m/uL (3.80-5.40); WBC 8.4 k/uL (3.8-10.6)
[2021-01-08 18:46] LABS: Partial Thromboplastin Time 24.1 sec (22.0-30.0); Prothrombin Time 10.6 sec (9.0-12.0)
[2021-01-08 18:48] LABS: ALT 62 U/L (4-34); AST 49 U/L (14-36); African American GFR (CKD) >90 (>60 ml/min/1.73 sqM); Albumin 3.9 g/dL (3.5-5.0); Alkaline Phosphatase 70 U/L (38-126); Anion Gap 9 mmol/L; Blood Urea Nitrogen 18 mg/dL (7-17); Calcium 9.3 mg/dL (8.4-10.2); Carbon Dioxide 28 mmol/L (22-30); Chloride 103 mmol/L (98-107); Glucose 98 mg/dL (74-99); Non-African American GFR(CKD) >90 (>60 ml/min/1.73 sqM); Potassium 4.1 mmol/L (3.5-5.1); Sodium 140 mmol/L (137-145); Total Bilirubin 0.7 mg/dL (0.2-1.3); Total Protein 6.6 g/dL (6.3-8.2)
--- NOTE | 2021-01-08 19:36 | XR ---
EXAMINATION TYPE: XR chest 2V DATE OF EXAM: 01/08/2021 COMPARISON: 11/28/2020 HISTORY: Difficulty breathing TECHNIQUE: 2 views FINDINGS: There is diffuse pulmonary interstitial edema. There is some interstitial and airspace infi ltrate at both lung bases. There is no obvious heart failure. There are no hilar masses. Heart size i s normal. IMPRESSION: Bilateral interstitial and airspace pneumonia appears new compared to old exam.
[2021-01-08] MEDS: AMOXIC-POT CLAV 875-125MG 1 EACH TAB PO SCH (22:14)
[2021-01-09] MEDS: IPRATROPIUM-ALBUTEROL 3 ML NEB INHALATION PRN ×6 (00:29→18:54)
[2021-01-09] MEDS: methylPREDNISolone SOD SUCCI 125 MG/2 ML VIAL IV SCH ×2 (02:49→05:55)
[2021-01-09] MEDS: SYMBICORT 160-4.5 MCG INHALER INHALATION SCH ×2 (07:24→18:54)
[2021-01-09] MEDS: AMIODARONE 200 MG TAB PO SCH ×2 (08:36→20:44)
[2021-01-09] MEDS: AMOXIC-POT CLAV 875-125MG 1 EACH TAB PO SCH (08:36)
[2021-01-09] MEDS: lisinopriL 5 MG TAB PO SCH (08:36)
[2021-01-09] MEDS: FAMOTIDINE 20 MG TAB PO SCH ×2 (08:36→20:44)
[2021-01-09] MEDS: APIXABAN 5 MG TAB PO SCH ×2 (08:36→20:44)
[2021-01-09 09:13] LABS: African American GFR (CKD) 90.9 (60.0-200.0); Anion Gap 8.1 mmol/L (4.00-12.00); BUN/Creat Ratio 21.25 Ratio (12.00-20.00); Basophils # (A) 0.08 X 10*3/uL (0.00-0.10); Basophils % (A) 0.8 %; Calcium 8.9 mg/dL (8.7-10.3); Carbon Dioxide 30.9 mmol/L (21.6-31.8); Eosinophils # (A) 1.75 X 10*3/uL (0.04-0.35); Eosinophils % (A) 17.3 %; HCT 39.8 % (37.2-46.3); HGB 11.9 g/dL (12.0-15.0); Lymphocytes # (A) 0.68 X 10*3/uL (0.90-5.00); Lymphocytes % (A) 6.7 %; MCH 27.2 pg (27.0-32.0); MCHC 29.9 g/dL (32.0-37.0); MCV 90.9 fL (80.0-97.0); Magnesium 1.9 mg/dL (1.5-2.4); Monocytes # (A) 0.53 X 10*3/uL (0.20-1.00); Monocytes % (A) 5.2 %; Neutrophils # (A) 7.07 X 10*3/uL (1.80-7.70); Neutrophils % (A) 69.8 %; Non-African American GFR(CKD) 78.5 (60.0-200.0); Platelet Count 237 X 10*3/uL (140-440); RBC 4.38 X 10*6/uL (4.10-5.20); RDW 15.6 % (11.5-14.5); WBC 10.13 X 10*3/uL (4.50-10.00)
[2021-01-09] MEDS: PIPERACILLIN-TAZOBACTAM 3.375 GM in SODIUM CHLORIDE 0.9% 100 ML IVPB SCH ×2 (12:08→20:43)
--- NOTE | 2021-01-09 14:42 | P.CNPUL ---
History of Present Illness Consult date: 01/09/21 Requesting physician: Jose E Sheet Reason for consult: dyspnea, cough, COPD, hypoxemia, pneumonia, abnormal CXR/CT Chief complaint: Shortness of breath. History of present illness: 65-year-old female, who sees my partner in the office for her COPD. The patient states for about a week or so, she's been having plains of increasing shortness of breath, chest congestion, wheezing, chest tightness, cough, and phlegm production. She does use oxygen at home. Because over that period of time, she became worse, she decided to come in to be evaluated. She was so bad, that she actually called EMS who brought her in to the hospital. She was evaluated in the emergency room admitted with a diagnosis of COPD exacerbation, and pneumonia. She's feeling a bit better currently. She is on a couple liters of oxygen. She smoked for many years, maybe 40 or so, but does not smoke now. She denies any fever or chills. She denies any chest pain or chest discomfort. She denies any nausea, vomiting, diarrhea, or abdominal pain. She also denies all genitourinary complaints. Review of Systems REVIEW OF SYSTEMS: CONSTITUTIONAL: [Negative.] NEUROLOGIC: [ Negative.] HEENT: [ Negative.] CARDIAC: [Negative.] PULMONARY: Shortness of breath, cough, chest tightness, wheezing, and occasional phlegm production. GI: [Negative.] : [Negative.] RHEUMATOLOGIC: [ Negative.] IMMUNOLOGIC: [ Negative.] ENDOCRINE: [Negative. ] DERMATOLOGIC: [Negative.] Past Medical History Past Medical History: Atrial Fibrillation, Asthma, COPD, CVA/TIA, Myocardial Infarction ([place]), Osteoarthritis (OA) Additional Past Medical History / Comment(s): Brain aneurysum that is clipped 2000 HF, home oxygen at 2L/NC ATC, arthritis in several joints, chronic low back pain which involves L leg-numbness/tingling, scoliosis, seasonal allergies. Last Myocardial Infarction Date:: 10/19/2019 History of Any Multi-Drug Resistant Organisms: None Reported Past Surgical History: Orthopedic Surgery, Tubal Ligation Additional Past Surgical History / Comment(s): Brain aneurysum that is clipped, left shoulder rotator cuff repair, spine lumbar disc 3x fused Past Anesthesia/Blood Transfusion Reactions: No Reported Reaction Past Psychological History: Anxiety, Depression Additional Psychological History / Comment(s): She uses no assistive device. She drives. She has home oxygen at 2L/NC ATC and a nebulizer. Smoking Status: Former smoker Past Alcohol Use History: None Reported Additional Past Alcohol Use History / Comment(s): Pt started smoking in 1975 and has quit august 2019 Past Drug Use History: None Reported - Past Family History Father Family Medical History: Coronary Artery Disease (CAD), Diabetes Mellitus Additional Family Medical History / Comment(s): Father had 3 vessel CABG. He at the age of 69 from heart disease. Mother Family Medical History: Myocardial Infarction ([place]) Additional Family Medical History / Comment(s): Mother of a HI at the age of 42 yrs. Medications and Allergies Home Medications Medication Instructions Recorded Confirmed Type Amiodarone [Cordarone] 200 mg PO BID 30 Days #60 tab 06/12/20 01/08/21 Rx Apixaban [Eliquis] 5 mg PO BID 30 Days #60 tab 06/12/20 01/08/21 Rx Montelukast [Singulair] 10 mg PO HS 30 Days #30 tab 06/12/20 01/08/21 Rx Famotidine [Pepcid] 20 mg PO BID 08/04/20 01/08/21 History Atorvastatin [Lipitor] 80 mg PO HS 11/10/20 01/08/21 History Budesonide-Formot 160-4.5 Mcg 2 puff INHALATION RT-BID 11/10/20 01/08/21 History [Symbicort 160-4.5 Mcg Inhaler] Tiotropium [place] [Spiriva] 1 cap INHALATION RT-DAILY 11/10/20 01/08/21 History lisinopriL [Zestril] 5 mg PO DAILY 11/10/20 01/08/21 History Albuterol Nebulized [Ventolin 2.5 mg INHALATION Q6H PRN 01/08/21 01/08/21 History Nebulized] Allergies Allergy/AdvReac Type Severity Reaction Status Date / Time naproxen [From Naprosyn] Allergy Anaphylaxis Verified 01/08/21 18:59 Sulfa (Sulfonamide Allergy Anaphylaxis Verified 01/08/21 18:59 Antibiotics) azithromycin [From Zithromax] AdvReac does not Verified 01/08/21 18:59 take due to A-Fib Physical Exam Osteopathic Statement: *. No significant issues noted on an osteopathic structural exam other than those noted in the History and Physical/Consult. Vitals: Vital Signs Temp Pulse Pulse Resp BP BP Pulse Ox 01/09/21 14:18 98.2 F 81 26 H 158/69 92 L 01/09/21 11:12 77 01/09/21 10:59 76 01/09/21 07:37 84 01/09/21 07:24 82 01/09/21 07:18 93 20 01/09/21 06:43 98.0 F 79 28 H 156/76 92 L 01/09/21 05:00 84 01/09/21 04:40 80 01/09/21 03:00 93 16 01/09/21 02:30 98.0 F 93 16 01/09/21 02:01 92 L 01/09/21 00:50 80 01/09/21 00:29 76 01/08/21 22:15 74 18 138/65 95 01/08/21 21:02 75 16 155/68 96 01/08/21 19:49 76 18 01/08/21 19:32 74 20 01/08/21 17:44 20 01/08/21 17:40 98.0 F 78 20 167/66 94 L Intake and Output 01/08/21 01/09/21 01/09/21 22:59 06:59 14:59 Intake Total 240 Balance 240 Intake: Oral 240 Other: Voiding Method Toilet # Voids 1 1 Weight 86.183 kg 86.183 kg No acute distress, oriented 3. No conversational dyspnea, use of accessory muscles, or audible wheezing. Patient remains on O2 at 3 L, with a saturation of 92%. HEENT examination is grossly unremarkable. Mucous membranes are moist. No oral lesions. Neck supple. Full range of motion. No adenopathy thyromegaly or neck vein distention. Cardiovascular examination reveals regular rhythm rate. S1-S2 normal. No S3 or S4. No discernible murmur noted. Heart rate is 81 bpm. Lungs reveal coarse bilateral rhonchi and expiratory wheezes. There is prolongation on forced maneuver. No crackles. Breath sounds equal bilaterally but diminished throughout. Abdomen soft bowel sounds are heard. No masses or tenderness. Extremities are intact. No cyanosis clubbing or edema. Skin is without rash or lesion. Neurologic examination is brief but nonfocal. Results - Laboratory Findings CBC and BMP: 01/09/21 04:17 01/09/21 04:17 PT/INR, D-dimer PT 10.6 sec (9.0-12.0) 01/08/21 18:31 INR 1.0 (<1.2) 01/08/21 18:31 Abnormal lab findings: Abnormal Labs 01/08/21 01/08/21 01/09/21 18:31 18:31 04:17 WBC 10.13 H Hgb 11.9 L MCHC 29.9 L RDW 15.6 H Lymphocytes # 0.68 L Eosinophils # 1.6 H 1.75 H BUN 18 H BUN/Creatinine Ratio AST 49 H ALT 62 H 01/09/21 04:17 WBC Hgb MCHC RDW Lymphocytes # Eosinophils # BUN BUN/Creatinine Ratio 21.25 H AST ALT - Diagnostic Findings Chest x-ray: image reviewed Assessment and Plan Assessment: COPD exacerbation, complicated by purulent tracheobronchitis/bronchopneumonia. Prior history of significant tobacco use, with development of COPD. Hyperlipidemia by history. History of hypertension. History of atrial fibrillation. History of CVA. Prior history of myocardial infarction. History of osteoarthritis. Chronic hypoxemic respiratory failure. History of seasonal ALLERGIES. Prior history of brain aneurysm, status post clipping, 2000 Plan: Plan dated 01/09/2021. The patient's currently on albuterol sulfate and ipratropium bromide, 4 times a day and when necessary. In addition, she is getting Singulair 10 mg at bedtime, Zosyn, Solu-Medrol 40 mg IV push twice a day, and Symbicort 160/4.5, 2 puffs twice a day. Additional recommendations and suggestions are forthcoming. We will continue to follow. Prognosis is guarded. She will follow-up in the office with Dr. Artis post discharge. Prognosis is guarded. Time with Patient: Greater than 30
--- NOTE | 2021-01-09 14:53 | P.HPIM ---
History of Present Illness Patient is a pleasant the 65-year-old female with known history of COPD came in with complaints of shortness of breath, productive cough congestion, patient had a chest x-ray which is a showing possibility of bronchopneumonia and severe bronchitis. Patient is wheezing patient does use 2 L of onset at home presently on 3 L. Patient is on antibiotics for pneumonia at this time. Patient has a 40 year smoking history denied any fever chills patient and any chest pain. Review of Systems REVIEW OF SYSTEMS: CONSTITUTIONAL: No fever, no malaise, no fatigue. HEENT: No recent visual problems or hearing problems. Denied any sore throat. CARDIOVASCULAR: No chest pain, orthopnea, PND, no palpitations, no syncope. PULMONARY: no hemoptysis. GASTROINTESTINAL: No diarrhea, no nausea, no vomiting, no abdominal pain. NEUROLOGICAL: No headaches, no weakness, no numbness. HEMATOLOGICAL: Denies any bleeding or petechiae. GENITOURINARY: Denies any burning micturition, frequency, or urgency. MUSCULOSKELETAL/RHEUMATOLOGICAL: Denies any joint pain, swelling, or any muscle pain. ENDOCRINE: Denies any polyuria or polydipsia. The rest of the 14-point review of systems is negative. Past Medical History Past Medical History: Atrial Fibrillation, Asthma, COPD, CVA/TIA, Myocardial Infarction ([place]), Osteoarthritis (OA) Additional Past Medical History / Comment(s): Brain aneurysum that is clipped 2001 HF, home oxygen at 2L/NC ATC, arthritis in several joints, chronic low back pain which involves L leg-numbness/tingling, scoliosis, seasonal allergies. Last Myocardial Infarction Date:: 10/19/2019 History of Any Multi-Drug Resistant Organisms: None Reported Past Surgical History: Orthopedic Surgery, Tubal Ligation Additional Past Surgical History / Comment(s): Brain aneurysum that is clipped, left shoulder rotator cuff repair, spine lumbar disc 3x fused Past Anesthesia/Blood Transfusion Reactions: No Reported Reaction Past Psychological History: Anxiety, Depression Additional Psychological History / Comment(s): She uses no assistive device. She drives. She has home oxygen at 2L/NC ATC and a nebulizer. Smoking Status: Former smoker Past Alcohol Use History: None Reported Additional Past Alcohol Use History / Comment(s): Pt started smoking in 1975 and has quit august 2019 Past Drug Use History: None Reported - Past Family History Father Family Medical History: Coronary Artery Disease (CAD), Diabetes Mellitus Additional Family Medical History / Comment(s): Father had 3 vessel CABG. He at the age of 69 from heart disease. Mother Family Medical History: Myocardial Infarction ([place]) Additional Family Medical History / Comment(s): Mother of a [place] at the age of 42 yrs. Medications and Allergies Home Medications Medication Instructions Recorded Confirmed Type Amiodarone [Cordarone] 200 mg PO BID 30 Days #60 tab 06/12/20 01/08/21 Rx Apixaban [Eliquis] 5 mg PO BID 30 Days #60 tab 06/12/20 01/08/21 Rx Montelukast [Singulair] 10 mg PO HS 30 Days #30 tab 06/12/20 01/08/21 Rx Famotidine [Pepcid] 20 mg PO BID 08/04/20 01/08/21 History Atorvastatin [Lipitor] 80 mg PO HS 11/10/20 01/08/21 History Budesonide-Formot 160-4.5 Mcg 2 puff INHALATION RT-BID 11/10/20 01/08/21 History [Symbicort 160-4.5 Mcg Inhaler] Tiotropium [place] [Spiriva] 1 cap INHALATION RT-DAILY 11/10/20 01/08/21 History lisinopriL [Zestril] 5 mg PO DAILY 11/10/20 01/08/21 History Albuterol Nebulized [Ventolin 2.5 mg INHALATION Q6H PRN 01/08/21 01/08/21 History Nebulized] Allergies Allergy/AdvReac Type Severity Reaction Status Date / Time naproxen [From Naprosyn] Allergy Anaphylaxis Verified 01/08/21 18:59 Sulfa (Sulfonamide Allergy Anaphylaxis Verified 01/08/21 18:59 Antibiotics) azithromycin [From Zithromax] AdvReac does not Verified 01/08/21 18:59 take due to A-Fib Physical Exam Vitals: Vital Signs Temp Pulse Pulse Resp BP BP Pulse Ox 01/09/21 14:18 98.2 F 81 26 H 158/69 92 L 01/09/21 11:12 77 01/09/21 10:59 76 01/09/21 07:37 84 01/09/21 07:24 82 01/09/21 07:18 93 20 01/09/21 06:43 98.0 F 79 28 H 156/76 92 L 01/09/21 05:00 84 01/09/21 04:40 80 01/09/21 03:00 93 16 01/09/21 02:30 98.0 F 93 16 01/09/21 02:01 92 L 01/09/21 00:50 80 01/09/21 00:29 76 01/08/21 22:15 74 18 138/65 95 01/08/21 21:02 75 16 155/68 96 01/08/21 19:49 76 18 01/08/21 19:32 74 20 01/08/21 17:44 20 01/08/21 17:40 98.0 F 78 20 167/66 94 L Intake and Output 01/08/21 01/09/21 01/09/21 22:59 06:59 14:59 Intake Total 240 Balance 240 Intake: Oral 240 Other: Voiding Method Toilet # Voids 1 1 Weight 86.183 kg 86.183 kg PHYSICAL EXAMINATION: GENERAL: The patient is alert and oriented x3, not in any acute distress. Well developed, well nourished. HEENT: Pupils are round and equally reacting to light. EOMI. No scleral icterus. No conjunctival pallor. Normocephalic, atraumatic. No pharyngeal erythema. No thyromegaly. CARDIOVASCULAR: S1 and S2 present. No murmurs, rubs, or gallops. PULMONARY: Patient has expiratory wheezing bilateral diffuse rhonchi ABDOMEN: Soft, nontender, nondistended, normoactive bowel sounds. No palpable organomegaly. MUSCULOSKELETAL: No joint swelling or deformity. EXTREMITIES: No cyanosis, clubbing, or pedal edema. NEUROLOGICAL: Gross neurological examination did not reveal any focal deficits. SKIN: No rashes. Results CBC & Chem 7: 01/09/21 04:17 01/09/21 04:17 Labs: Abnormal Lab Results - Last 24 Hours (Table) 01/08/21 01/08/21 01/09/21 Range/Units 18:31 18:31 04:17 WBC 10.13 H (4.50-10.00) X 10*3/uL Hgb 11.9 L (12.0-15.0) g/dL MCHC 29.9 L (32.0-37.0) g/dL RDW 15.6 H (11.5-14.5) % Lymphocytes # 0.68 L (0.90-5.00) X 10*3/uL Eosinophils # 1.6 H 1.75 H (0-0.7) k/uL BUN 18 H (7-17) mg/dL BUN/Creatinine Ratio (12.00-20.00) Ratio AST 49 H (14-36) U/L ALT 62 H (4-34) U/L 01/09/ Range/Units 04:17 WBC (4.50-10.00) X 10*3/uL Hgb (12.0-15.0) g/dL MCHC (32.0-37.0) g/dL RDW (11.5-14.5) % Lymphocytes # (0.90-5.00) X 10*3/uL Eosinophils # (0-0.7) k/uL BUN (7-17) mg/dL BUN/Creatinine Ratio 21.25 H (12.00-20.00) Ratio AST (14-36) U/L ALT (4-34) U/L Thrombosis Risk Factor Assmnt - Choose All That Apply Each Factor Represents 1 point: Abnormal pulmonary function (COPD), Serious lung disease incl. pneumonia (< 1month) Other Risk Factors: Yes Each Risk Factor Represents 2 Points: Age 61-74 years Thrombosis Risk Factor Assessment Total Risk Factor Score: 4 Thrombosis Risk Factor Assessment Level: Moderate Risk Assessment and Plan Plan: -Acute on chronic hypoxic and hypercapnic respiratory failure secondary to COPD etc. patient continues systolic steroids inhalational treatments. -Thick of bronchitis severe or bronchopneumonia patient will be continued on antibiotics -Hypertension Paroxysmal atrial fibrillation presently rate controlled patient is on anticoagulation which will be continued -History of CVA in the past without any residual weakness -Coronary artery disease -History of brain aneurysm with clipping in the past. -GI prophylaxis with Pepcid
[2021-01-09] MEDS: methylPREDNISolone SOD SUCCI 40 MG/ML 1 ML VIAL IV SCH (18:49)
--- NOTE | 2021-01-09 20:39 | US ---
EXAMINATION TYPE: US venous doppler duplex LE LT DATE OF EXAM: 01/09/2021 8:32 PM COMPARISON: NONE CLINICAL HISTORY: left knee swelling and pain. Left knee swelling and pain. No hx of DVT. Patient on eliquis. SIDE PERFORMED: Left TECHNIQUE: The lower extremity deep venous system is examined utilizing real time linear array sonog twan with graded compression, doppler sonography and color-flow sonography. VESSELS IMAGED: Common Femoral Vein Deep Femoral Vein Greater Saphenous Vein * Femoral Vein Popliteal Vein Small Saphenous Vein * Proximal Calf Veins (* superficial vessels) Left Leg: No evidence of DVT in veins imaged at this time from prox calf veins to CFV/GSV. IMPRESSION: No sign of deep vein thrombosis in the left leg.
[2021-01-09] MEDS: ATORVASTATIN 80 MG TAB PO SCH (20:44)
[2021-01-09] MEDS: HYDROcodone/APAP 5-325MG 1 EACH TAB PO PRN (20:44)
[2021-01-09] MEDS: MONTELUKAST 10 MG TAB PO SCH (20:45)
[2021-01-09] MEDS ORDERED: methylPREDNISolone SOD SUCCI 40 MG/ML 1 ML VIAL IV SCH (21:00)
--- NOTE | 2021-01-09 21:11 | XR ---
EXAMINATION TYPE: XR knee limited LT DATE OF EXAM: 01/09/2021 COMPARISON: 06/10/2020 HISTORY: Knee pain TECHNIQUE: 2 views FINDINGS: There is no sign of fracture nor dislocation. Joint spaces are normal. There is no sign of joint effusion. IMPRESSION: Negative left knee exam. No fracture. No change.
[2021-01-10] MEDS: methylPREDNISolone SOD SUCCI 40 MG/ML 1 ML VIAL IV SCH ×5 (00:25→23:10)
[2021-01-10] MEDS: PIPERACILLIN-TAZOBACTAM 3.375 GM in SODIUM CHLORIDE 0.9% 100 ML IVPB SCH ×3 (03:26→19:31)
[2021-01-10] MEDS: IPRATROPIUM-ALBUTEROL 3 ML NEB INHALATION PRN ×5 (07:51→23:38)
[2021-01-10] MEDS: SYMBICORT 160-4.5 MCG INHALER INHALATION SCH ×2 (07:51→20:30)
[2021-01-10] MEDS: lisinopriL 5 MG TAB PO SCH (08:37)
[2021-01-10] MEDS: AMIODARONE 200 MG TAB PO SCH ×2 (08:37→19:32)
[2021-01-10] MEDS: FAMOTIDINE 20 MG TAB PO SCH ×2 (08:37→19:32)
[2021-01-10] MEDS: APIXABAN 5 MG TAB PO SCH ×2 (08:37→19:32)
[2021-01-10 09:37] LABS: HCT 38.6 % (37.2-46.3); HGB 12.1 g/dL (12.0-15.0); MCH 27.8 pg (27.0-32.0); MCHC 31.3 g/dL (32.0-37.0); MCV 88.5 fL (80.0-97.0); Mean Platelet Volume 11.1 fL (9.5-12.2); Platelet Count 249 X 10*3/uL (140-440); RBC 4.36 X 10*6/uL (4.10-5.20); RDW 15.3 % (11.5-14.5); WBC 10.11 X 10*3/uL (4.50-10.00)
[2021-01-10 09:51] LABS: African American GFR (CKD) 90.9 (60.0-200.0); Anion Gap 8.5 mmol/L (4.00-12.00); BUN/Creat Ratio 18.75 Ratio (12.00-20.00); Calcium 9.5 mg/dL (8.7-10.3); Carbon Dioxide 28.5 mmol/L (21.6-31.8); Non-African American GFR(CKD) 78.5 (60.0-200.0)
--- NOTE | 2021-01-10 14:29 | P.PN ---
Subjective Progress Note Date: 01/10/21 Principal diagnosis: Acute exacerbation of COPD 65-year-old female, who sees my partner in the office for her COPD. The patient states for about a week or so, she's been having plains of increasing shortness of breath, chest congestion, wheezing, chest tightness, cough, and phlegm production. She does use oxygen at home. Because over that period of time, she became worse, she decided to come in to be evaluated. She was so bad, that she actually called EMS who brought her in to the hospital. She was evaluated in the emergency room admitted with a diagnosis of COPD exacerbation, and pneumonia. She's feeling a bit better currently. She is on a couple liters of oxygen. She smoked for many years, maybe 40 or so, but does not smoke now. She denies any fever or chills. She denies any chest pain or chest discomfort. She denies any nausea, vomiting, diarrhea, or abdominal pain. She also denies all genitourinary complaints. On 01/10/2021 patient seen in follow-up on medical floor, breathing a lot easier today, however not back to baseline, she is on room air, pulse ox is 92%, she has been afebrile, lower extremity Doppler showed no evidence of DVT in the left leg. Left knee x-ray showed no acute fracture and normal joint spaces. COVID 19 test was negative, progesterone level was negative at 0.08, electrolytes and renal profile were within normal limits, white blood cell count was 10.1, hemoglobin was 12.1. Patient remains on IV steroids 40 mg every 6 hours of Solu-Medrol, and she is on Zosyn for antibiotic coverage. Sputum culture has been sent, pending at this time Objective - Vital Signs Vital signs: Vital Signs Temp 97.9 F 01/10/21 08:00 Pulse 77 01/10/21 11:33 Resp 22 01/10/21 08:00 BP 159/66 01/10/21 08:00 Pulse Ox 92 L 01/10/21 08:00 Intake & Output 01/09/21 01/10/21 01/10/21 18:59 06:59 18:59 Intake Total 240 200 Balance 240 200 Intake: Oral 240 200 Other: Voiding Method Toilet Toilet Toilet # Voids 2 1 - Exam GENERAL EXAM: Alert, very pleasant 65-year-old white female, on room air, with a pulse ox of 92% comfortable in no apparent distress. HEAD: Normocephalic/atraumatic. EYES: Normal reaction of pupils, equal size. Conjunctiva pink, sclera white. NOSE: Clear with pink turbinates. THROAT: No erythema or exudates. NECK: No masses, no JVD, no thyroid enlargement, no adenopathy. CHEST: No chest wall deformity. Symmetrical expansion. LUNGS: Equal air entry with diffuse wheezes CVS: Regular rate and rhythm, normal S1 and S2, no gallops, no murmurs, no rubs ABDOMEN: Soft, nontender. No hepatosplenomegaly, normal bowel sounds, no guarding or rigidity. EXTREMITIES: No clubbing, no edema, no cyanosis, 2+ pulses and upper and lower extremities. MUSCULOSKELETAL: Muscle strength and tone normal. SPINE: No scoliosis or deformity SKIN: No rashes CENTRAL NERVOUS SYSTEM: Alert and oriented -3. No focal deficits, tone is normal in all 4 extremities. PSYCHIATRIC: Alert and oriented -3. Appropriate affect. Intact judgment and insight. - Labs CBC & Chem 7: 01/10/21 06:31 01/10/21 06:31 Labs: Abnormal Lab Results - Last 24 Hours (Table) 01/10/21 01/10/21 Range/Units 06:31 06:31 WBC 10.11 H (4.50-10.00) X 10*3/uL MCHC 31.3 L (32.0-37.0) g/dL RDW 15.3 H (11.5-14.5) % Glucose 181 H (70-110) mg/dL Microbiology - Last 24 Hours (Table) 01/09/21 15:46 Gram Stain - Preliminary Sputum Sputum Culture - Preliminary Assessment and Plan Plan: Assessment: #1. Acute COPD exacerbation, complicated by periventricular bronchitis/bronchopneumonia #2.History of significant tobacco use #3. Hypertension #4. Hyperlipidemia #5. History of CVA #6. History of myocardial infarction #7. History of osteoarthritis #8. Chronic hypoxic respiratory failure related to COPD #9. History of seasonal ALLERGIES #10. Prior history of brain aneurysm, status post clipping in 2000 Plan: Continue current medical treatment, patient is doing slightly better however not back to baseline, continue antibiotics IV steroids and bronchodilators, we'll continue to follow and make recommendations based on clinical course I performed a history & physical examination of the patient and discussed their management with my nurse practitioner, Darcy Mccartney. I reviewed the nurse practitioner's note and agree with the documented findings and plan of care. Lung sounds are positive for diffuse wheezes throughout the lung coles. The findings and the impression was discussed with the patient. I attest to the documentation by the nurse practitioner. Time with Patient: Less than 30
--- NOTE | 2021-01-10 16:52 | P.PN ---
Subjective Progress Note Date: 01/10/21 Patient is a pleasant the 65-year-old female with known history of COPD came in with complaints of shortness of breath, productive cough congestion, patient had a chest x-ray which is a showing possibility of bronchopneumonia and severe bronchitis. Patient is wheezing patient does use 2 L of onset at home presently on 3 L. Patient is on antibiotics for pneumonia at this time. Patient has a 40 year smoking history denied any fever chills patient and any chest pain. 01/10/2021 Patient is Seen and evaluated this morning and follow-up continues to be dyspneic with exertion with cough and congestion and expiratory wheezing noted on exam. Pulmonary following. Patient is currently maintained on breathing inhalational treatments along with IV steroids and and will continue at this time. Labs today within normal limits. Review of systems: Constitutional: No reports of fatigue, fever, or chills Cardiovascular: No reports of chest pain or palpitations Respiratory: Reports continued shortness of breath and cough GI: No reports of nausea, vomiting, or diarrhea : No reports of dysuria or retention Neurovascular: No reports of weakness or numbness All medications have been reviewed Objective - Vital Signs Vital signs: Vital Signs Temp 97.8 F 01/10/21 14:34 Pulse 84 01/10/21 14:34 Resp 21 01/10/21 14:34 BP 162/75 01/10/21 14:34 Pulse Ox 92 L 01/10/21 14:34 Intake & Output 01/09/21 01/10/21 01/10/21 18:59 06:59 18:59 Intake Total 240 400 Balance 240 400 Intake: Oral 240 400 Other: Voiding Method Toilet Toilet Toilet # Voids 2 1 - Exam GENERAL: The patient is alert and oriented x3, not in any acute distress. Well developed, well nourished. HEENT: Pupils are round and equally reacting to light. EOMI. No scleral icterus. No conjunctival pallor. Normocephalic, atraumatic. No pharyngeal erythema. No thyromegaly. CARDIOVASCULAR: S1 and S2 present. No murmurs, rubs, or gallops. PULMONARY: Patient has expiratory wheezing bilateral diffuse rhonchi ABDOMEN: Soft, nontender, nondistended, normoactive bowel sounds. No palpable organomegaly. MUSCULOSKELETAL: No joint swelling or deformity. EXTREMITIES: No cyanosis, clubbing, or pedal edema. NEUROLOGICAL: Gross neurological examination did not reveal any focal deficits. SKIN: No rashes. - Labs CBC & Chem 7: 01/10/21 06:31 01/10/21 06:31 Labs: Abnormal Lab Results - Last 24 Hours (Table) 01/10/21 01/10/21 Range/Units 06:31 06:31 WBC 10.11 H (4.50-10.00) X 10*3/uL MCHC 31.3 L (32.0-37.0) g/dL RDW 15.3 H (11.5-14.5) % Glucose 181 H (70-110) mg/dL Microbiology - Last 24 Hours (Table) 01/09/21 15:46 Gram Stain - Preliminary Sputum Sputum Culture - Preliminary Assessment and Plan Assessment: -Acute on chronic hypoxic and hypercapnic respiratory failure secondary to COPD faster patient. patient continues systemic steroids and inhalational treatments. She is maintained on IV steroids which have been increased as she continues to have extreme expiratory wheezing noted on exam -Tracheo-bronchitis severe or bronchopneumonia patient will be continued on IV antibiotics -Hypertension -Paroxysmal atrial fibrillation presently rate controlled patient is on anticoagulation which will be continued -History of CVA in the past without any residual weakness -Coronary artery disease -History of brain aneurysm with clipping in the past. -GI prophylaxis with Pepcid Plan: Continue with IV antibiotics, breathing inhalational treatments along with IV steroids. Pulmonary Is following. Instructed the patient to increase activity as tolerated. Will continue to monitor closely.
[2021-01-10] MEDS: HYDROcodone/APAP 5-325MG 1 EACH TAB PO PRN (19:31)
[2021-01-10] MEDS: ATORVASTATIN 80 MG TAB PO SCH (19:32)
[2021-01-10] MEDS: MONTELUKAST 10 MG TAB PO SCH (19:32)
[2021-01-11] MEDS: IPRATROPIUM-ALBUTEROL 3 ML NEB INHALATION PRN ×5 (03:30→23:08)
[2021-01-11] MEDS: PIPERACILLIN-TAZOBACTAM 3.375 GM in SODIUM CHLORIDE 0.9% 100 ML IVPB SCH ×3 (04:00→20:07)
[2021-01-11] MEDS: HYDROcodone/APAP 5-325MG 1 EACH TAB PO PRN ×2 (04:06→20:45)
[2021-01-11] MEDS: methylPREDNISolone SOD SUCCI 40 MG/ML 1 ML VIAL IV SCH ×2 (05:13→12:37)
[2021-01-11] MEDS: SYMBICORT 160-4.5 MCG INHALER INHALATION SCH (07:21)
[2021-01-11] MEDS: APIXABAN 5 MG TAB PO SCH ×2 (09:03→20:05)
[2021-01-11] MEDS: FAMOTIDINE 20 MG TAB PO SCH ×2 (09:03→20:05)
[2021-01-11] MEDS: lisinopriL 5 MG TAB PO SCH (09:03)
[2021-01-11] MEDS: AMIODARONE 200 MG TAB PO SCH ×2 (09:03→20:05)
--- NOTE | 2021-01-11 14:56 | P.PN ---
Subjective Progress Note Date: 01/11/21 Patient is a pleasant the 65-year-old female with known history of COPD came in with complaints of shortness of breath, productive cough congestion, patient had a chest x-ray which is a showing possibility of bronchopneumonia and severe bronchitis. Patient is wheezing patient does use 2 L of onset at home presently on 3 L. Patient is on antibiotics for pneumonia at this time. Patient has a 40 year smoking history denied any fever chills patient and any chest pain. 01/10/2021 Patient is Seen and evaluated this morning and follow-up continues to be dyspneic with exertion with cough and congestion and expiratory wheezing noted on exam. Pulmonary following. Patient is currently maintained on breathing inhalational treatments along with IV steroids and and will continue at this time. Labs today within normal limits.. 01/11/2021 Patient is seen this morning continues to be extremely dyspneic with minimal exertion and cough with phlegm production and wheezing on exam. Michelle is following. Patient is maintained on breathing inhalational treatments along with IV steroids and will continue. Patient also has IV Zosyn on and will continue with this at this time. Review of systems: Constitutional: No reports of fatigue, fever, or chills Cardiovascular: No reports of chest pain or palpitations Respiratory: Reports continued shortness of breath and cough GI: No reports of nausea, vomiting, or diarrhea : No reports of dysuria or retention Neurovascular: No reports of weakness or numbness All medications have been reviewed Objective - Vital Signs Vital signs: Vital Signs Temp 97.9 F 01/11/21 02:00 Pulse 72 01/11/21 10:59 Resp 21 01/11/21 02:00 BP 138/72 01/11/21 02:00 Pulse Ox 97 01/11/21 02:00 Intake & Output 01/10/21 01/11/21 01/11/21 18:59 06:59 18:59 Intake Total 400 240 Balance 400 240 Intake: Oral 400 240 Other: Voiding Method Toilet Toilet # Voids 2 - Exam GENERAL: The patient is alert and oriented x3, not in any acute distress. Well developed, well nourished. HEENT: Pupils are round and equally reacting to light. EOMI. No scleral icterus. No conjunctival pallor. Normocephalic, atraumatic. No pharyngeal erythema. No thyromegaly. CARDIOVASCULAR: S1 and S2 present. No murmurs, rubs, or gallops. PULMONARY: Patient has expiratory wheezing with bilateral diffuse rhonchi ABDOMEN: Soft, nontender, nondistended, normoactive bowel sounds. No palpable organomegaly. MUSCULOSKELETAL: No joint swelling or deformity. EXTREMITIES: No cyanosis, clubbing, or pedal edema. NEUROLOGICAL: Gross neurological examination did not reveal any focal deficits. SKIN: No rashes. - Labs CBC & Chem 7: 01/10/21 06:31 01/10/21 06:31 Labs: Microbiology - Last 24 Hours (Table) 01/09/21 15:46 Gram Stain - Final Sputum Sputum Culture - Final Assessment and Plan Assessment: -Acute on chronic hypoxic and hypercapnic respiratory failure secondary to COPD exacerbation. patient continues systemic steroids and inhalational treatments. She is maintained on IV steroids which have been increased as she continues to have extreme expiratory wheezing noted on exam -Tracheo-bronchitis severe or bronchopneumonia patient will be continued on IV antibiotics -Hypertension -Paroxysmal atrial fibrillation presently rate controlled patient is on anticoagulation which will be continued -History of CVA in the past without any residual weakness -Coronary artery disease -History of brain aneurysm with clipping in the past. -GI prophylaxis with Pepcid Plan: Continue with IV antibiotics, breathing inhalational treatments along with IV steroids. Pulmonary Is following. Instructed the patient to increase activity as tolerated. Patient states she has been up and walking to the bathroom although continues to be dyspneic with minimal exertion. Will continue to monitor closely.
--- NOTE | 2021-01-11 15:54 | P.PN ---
Subjective Progress Note Date: 01/11/21 Principal diagnosis: Acute exacerbation of COPD 65-year-old female, who sees my partner in the office for her COPD. The patient states for about a week or so, she's been having plains of increasing shortness of breath, chest congestion, wheezing, chest tightness, cough, and phlegm production. She does use oxygen at home. Because over that period of time, she became worse, she decided to come in to be evaluated. She was so bad, that she actually called EMS who brought her in to the hospital. She was evaluated in the emergency room admitted with a diagnosis of COPD exacerbation, and pneumonia. She's feeling a bit better currently. She is on a couple liters of oxygen. She smoked for many years, maybe 40 or so, but does not smoke now. She denies any fever or chills. She denies any chest pain or chest discomfort. She denies any nausea, vomiting, diarrhea, or abdominal pain. She also denies all genitourinary complaints. On 01/10/2021 patient seen in follow-up on medical floor, breathing a lot easier today, however not back to baseline, she is on room air, pulse ox is 92%, she has been afebrile, lower extremity Doppler showed no evidence of DVT in the left leg. Left knee x-ray showed no acute fracture and normal joint spaces. COVID 19 test was negative, progesterone level was negative at 0.08, electrolytes and renal profile were within normal limits, white blood cell count was 10.1, hemoglobin was 12.1. Patient remains on IV steroids 40 mg every 6 hours of Solu-Medrol, and she is on Zosyn for antibiotic coverage. Sputum culture has been sent, pending at this time On 01/11/2021 patient seen in follow-up on medical floor. Still quite wheezy a nd dyspneic with exertion, she's been afebrile, she remains on Symbicort, IV steroids 40 mg every 8 hours, DuoNeb, and Zosyn for empiric antibiotics, sputum culture has been sent and has shown no growth. Today's labs have been reviewed, pro-calcitonin level was negative at 0.08, she was negative for COVID 19. Objective - Vital Signs Vital signs: Vital Signs Temp 97.9 F 01/11/21 02:00 Pulse 72 01/11/21 15:23 Resp 21 01/11/21 02:00 BP 138/72 01/11/21 02:00 Pulse Ox 97 01/11/21 02:00 Intake & Output 01/10/21 01/11/21 01/11/21 18:59 06:59 18:59 Intake Total 400 240 Balance 400 240 Intake: Oral 400 240 Other: Voiding Method Toilet Toilet # Voids 2 - Exam GENERAL EXAM: Alert, very pleasant 65-year-old white female, on 3 l/min, with a pulse ox of 97% comfortable in no apparent distress. HEAD: Normocephalic/atraumatic. EYES: Normal reaction of pupils, equal size. Conjunctiva pink, sclera white. NOSE: Clear with pink turbinates. THROAT: No erythema or exudates. NECK: No masses, no JVD, no thyroid enlargement, no adenopathy. CHEST: No chest wall deformity. Symmetrical expansion. LUNGS: Equal air entry with diffuse wheezes CVS: Regular rate and rhythm, normal S1 and S2, no gallops, no murmurs, no rubs ABDOMEN: Soft, nontender. No hepatosplenomegaly, normal bowel sounds, no guarding or rigidity. EXTREMITIES: No clubbing, no edema, no cyanosis, 2+ pulses and upper and lower extremities. MUSCULOSKELETAL: Muscle strength and tone normal. SPINE: No scoliosis or deformity SKIN: No rashes CENTRAL NERVOUS SYSTEM: Alert and oriented -3. No focal deficits, tone is normal in all 4 extremities. PSYCHIATRIC: Alert and oriented -3. Appropriate affect. Intact judgment and insight. - Labs CBC & Chem 7: 01/10/21 06:31 01/10/21 06:31 Labs: Microbiology - Last 24 Hours (Table) 01/09/21 15:46 Gram Stain - Final Sputum Sputum Culture - Final Assessment and Plan Plan: Assessment: #1. Acute COPD exacerbation, complicated by purulent bronchitis/bronchopneumonia #2.History of significant tobacco use #3. Hypertension #4. Hyperlipidemia #5. History of CVA #6. History of myocardial infarction #7. History of osteoarthritis #8. Chronic hypoxic respiratory failure related to COPD #9. History of seasonal ALLERGIES #10. Prior history of brain aneurysm, status post clipping in 2000 Plan: Continue current medical treatment, we will increase the IV steroids to 60 mg every 6 hours, continue DuoNeb, we'll switch Symbicort 2 nebulized Pulmicort and Perforomist. Not quite back to baseline, still quite dyspneic and bronchospastic, she will likely require inpatient treatment over the weekend I performed a history & physical examination of the patient and discussed their management with my nurse practitioner, Darcy Mccartney. I reviewed the nurse practitioner's note and agree with the documented findings and plan of care. Lung sounds are positive for diffuse wheezes throughout the lung coles. The findings and the impression was discussed with the patient. I attest to the d ocumentation by the nurse practitioner. Time with Patient: Less than 30
[2021-01-11] MEDS: methylPREDNISolone SOD SUCCI 125 MG/2 ML VIAL IV SCH ×2 (18:35→23:01)
[2021-01-11] MEDS: IPRATROPIUM-ALBUTEROL 3 ML NEB INHALATION SCH ×2 (19:10)
[2021-01-11] MEDS: BUDESONIDE 1 MG/2 ML NEBU INHALATION SCH (19:11)
[2021-01-11] MEDS: FORMOTEROL FUMARATE 20 MCG/2 ML NEBU INHALATION SCH (19:26)
[2021-01-11] MEDS: MONTELUKAST 10 MG TAB PO SCH (20:05)
[2021-01-11] MEDS: ATORVASTATIN 80 MG TAB PO SCH (20:05)
[2021-01-12] MEDS: IPRATROPIUM-ALBUTEROL 3 ML NEB INHALATION PRN ×2 (03:02→23:17)
[2021-01-12] MEDS: PIPERACILLIN-TAZOBACTAM 3.375 GM in SODIUM CHLORIDE 0.9% 100 ML IVPB SCH ×3 (04:15→20:10)
[2021-01-12] MEDS: methylPREDNISolone SOD SUCCI 125 MG/2 ML VIAL IV SCH ×4 (06:04→23:12)
[2021-01-12] MEDS: IPRATROPIUM-ALBUTEROL 3 ML NEB INHALATION SCH ×4 (07:15→19:24)
[2021-01-12] MEDS: BUDESONIDE 1 MG/2 ML NEBU INHALATION SCH ×2 (07:15→19:22)
[2021-01-12] MEDS: FORMOTEROL FUMARATE 20 MCG/2 ML NEBU INHALATION SCH ×2 (07:15→19:22)
[2021-01-12] MEDS: APIXABAN 5 MG TAB PO SCH ×2 (08:53→20:11)
[2021-01-12] MEDS: AMIODARONE 200 MG TAB PO SCH ×2 (08:53→20:11)
[2021-01-12] MEDS: lisinopriL 5 MG TAB PO SCH (08:53)
[2021-01-12] MEDS: FAMOTIDINE 20 MG TAB PO SCH ×2 (08:53→20:18)
[2021-01-12 09:13] LABS: Basophils # (A) 0.01 X 10*3/uL (0.00-0.10); Basophils % (A) 0.1 %; Eosinophils # (A) 0 X 10*3/uL (0.04-0.35); Eosinophils % (A) 0 %; HCT 41.1 % (37.2-46.3); HGB 12.2 g/dL (12.0-15.0); Lymphocytes # (A) 0.46 X 10*3/uL (0.90-5.00); Lymphocytes % (A) 4.4 %; MCH 27.3 pg (27.0-32.0); MCHC 29.7 g/dL (32.0-37.0); MCV 91.9 fL (80.0-97.0); Mean Platelet Volume 10.8 fL (9.5-12.2); Monocytes # (A) 0.44 X 10*3/uL (0.20-1.00); Monocytes % (A) 4.2 %; Neutrophils # (A) 9.39 X 10*3/uL (1.80-7.70); Neutrophils % (A) 90.3 %; Platelet Count 291 X 10*3/uL (140-440); RBC 4.47 X 10*6/uL (4.10-5.20); RDW 15.5 % (11.5-14.5)
[2021-01-12] MEDS ORDERED: polyethylene glycoL 3350 17 GM POWD.PACK PO PRN (09:33)
[2021-01-12 10:15] LABS: African American GFR (CKD) 78.9 (60.0-200.0); Anion Gap 11.9 mmol/L (4.00-12.00); BUN/Creat Ratio 23.33 Ratio (12.00-20.00); Calcium 9.4 mg/dL (8.7-10.3); Carbon Dioxide 28.1 mmol/L (21.6-31.8)
--- NOTE | 2021-01-12 10:34 | P.PN ---
Subjective Patient is a pleasant the 65-year-old female with known history of COPD came in with complaints of shortness of breath, productive cough congestion, patient had a chest x-ray which is a showing possibility of bronchopneumonia and severe bronchitis. Patient is wheezing patient does use 2 L of onset at home presently on 3 L. Patient is on antibiotics for pneumonia at this time. Patient has a 40 year smoking history denied any fever chills patient and any chest pain. 01/10/2021 Patient is Seen and evaluated this morning and follow-up continues to be dyspneic with exertion with cough and congestion and expiratory wheezing noted on exam. Pulmonary following. Patient is currently maintained on breathing inhalational treatments along with IV steroids and and will continue at this time. Labs today within normal limits.. 01/11/2021 Patient is seen this morning continues to be extremely dyspneic with minimal exertion and cough with phlegm production and wheezing on exam. Michelle is following. Patient is maintained on breathing inhalational treatments along with IV steroids and will continue. Patient also has IV Zosyn on and will co ntinue with this at this time. 01/12/2021 Patient is still wheezing does have oral thrush, started on nystatin, constipated started on MiraLAX complaining of sore throat ordered cepacol. Constitutional: Denied any fatigue denied any fever. Cardio vascular: denied any chest pain, palpitations Gastrointestinal denied any nausea vomiting Pulmonary: As mentioned in the interval history Neurologic denied any new focal deficits All inpatient medications were reviewed and appropriate changes in these medications as dictated in the interval history and assessment and plan. Objective - Vital Signs Vital signs: Vital Signs Temp 97.7 F 01/12/21 06:41 Pulse 82 01/12/21 07:44 Resp 22 01/12/21 07:20 BP 181/78 01/12/21 06:41 Pulse Ox 96 01/12/21 06:41 Intake & Output 01/11/21 01/12/21 01/12/21 18:59 06:59 18:59 Intake Total 240 240 240 Balance 240 240 240 Intake: Oral 240 240 240 Other: Voiding Method Toilet Toilet Toilet # Voids 4 - Exam GENERAL: The patient is alert and oriented x3, not in any acute distress. Well developed, well nourished. HEENT: Pupils are round and equally reacting to light. EOMI. No scleral icterus. No conjunctival pallor. Normocephalic, atraumatic. No pharyngeal erythema. No thyromegaly. CARDIOVASCULAR: S1 and S2 present. No murmurs, rubs, or gallops. PULMONARY: Patient has expiratory wheezing with bilateral diffuse rhonchi ABDOMEN: Soft, nontender, nondistended, normoactive bowel sounds. No palpable organomegaly. MUSCULOSKELETAL: No joint swelling or deformity. EXTREMITIES: No cyanosis, clubbing, or pedal edema. NEUROLOGICAL: Gross neurological examination did not reveal any focal deficits. SKIN: No rashes. - Labs CBC & Chem 7: 01/12/21 05:21 01/12/21 05:21 Labs: Abnormal Lab Results - Last 24 Hours (Table) 01/12/21 01/12/21 Range/Units 05:21 05:21 WBC 10.40 H (4.50-10.00) X 10*3/uL MCHC 29.7 L (32.0-37.0) g/dL RDW 15.5 H (11.5-14.5) % Immature Gran # 0.10 H (0.00-0.04) X 10*3/uL Neutrophils # 9.39 H (1.80-7.70) X 10*3/uL Lymphocytes # 0.46 L (0.90-5.00) X 10*3/uL Eosinophils # 0 L (0.04-0.35) X 10*3/uL BUN/Creatinine Ratio 23.33 H (12.00-20.00) Ratio Glucose 159 H (70-110) mg/dL Microbiology - Last 24 Hours (Table) 01/09/21 15:46 Gram Stain - Final Sputum Sputum Culture - Final Assessment and Plan Plan: Assessment and Plan Assessment: -Acute on chronic hypoxic and hypercapnic respiratory failure secondary to COPD exacerbation. patient continues systemic steroids and inhalational treatments. She is maintained on IV steroids which have been increased as she continues to have extreme expiratory wheezing noted on exam -Tracheo-bronchitis severe or bronchopneumonia patient will be continued on IV antibiotics -Hypertension -Paroxysmal atrial fibrillation presently rate controlled patient is on anticoagulation which will be continued -History of CVA in the past without any residual weakness -Coronary artery disease -History of brain aneurysm with clipping in the past. -GI prophylaxis with Pepcid
[2021-01-12] MEDS: BENZOCAINE/MENTHOL LOZENG 1 EACH LOZENGE MUCOUS MEM PRN ×2 (11:41→17:52)
[2021-01-12] MEDS: NYSTATIN 100,000 UNIT/ML SUSP 500,000 UNIT/5 ML CUP PO SCH ×3 (13:58→20:18)
--- NOTE | 2021-01-12 14:00 | P.PN ---
Subjective Progress Note Date: 01/12/21 Principal diagnosis: COPD exacerbation. On 01/10/2021 patient seen in follow-up on medical floor, breathing a lot easier today, however not back to baseline, she is on room air, pulse ox is 92%, she has been afebrile, lower extremity Doppler showed no evidence of DVT in the left leg. Left knee x-ray showed no acute fracture and normal joint spaces. COVID 19 test was negative, progesterone level was negative at 0.08, electrolytes and renal profile were within normal limits, white blood cell count was 10.1, hemoglobin was 12.1. Patient remains on IV steroids 40 mg every 6 hours of Solu-Medrol, and she is on Zosyn for antibiotic coverage. Sputum culture has been sent, pending at this time On 01/11/2021 patient seen in follow-up on medical floor. Still quite wheezy a nd dyspneic with exertion, she's been afebrile, she remains on Symbicort, IV steroids 40 mg every 8 hours, DuoNeb, and Zosyn for empiric antibiotics, sputum culture has been sent and has shown no growth. Today's labs have been reviewed, pro-calcitonin level was negative at 0.08, she was negative for COVID 19. Progress note dated 01/12/2021. The patient continues to be quite short of breath, wheezing, and congested. She remains in the 6 N. hour. She is improved only minimally. I did mention to her, that Dr. Artis may decide to do a bronchoscopy and BAL and her next week. She currently remains on all appropriate medications including short acting beta agonist, short acting muscarinic antagonist, long-acting beta agonist, inhaled corticosteroids, systemic corticosteroids, and antibiotics. White count is 10.4, hemoglobin 12.2, hematocrit 41.1, platelet count 291,000. Sodium 144, potassium 5, chloride 104, CO2 28.1, BUN 21, and creatinine 0.9. Thus far microbiology is negative. Pro-calcitonin level was 0.08. Objective - Vital Signs Vital signs: Vital Signs Temp 97.7 F 01/12/21 06:41 Pulse 88 01/12/21 11:14 Resp 22 01/12/21 07:20 BP 181/78 01/12/21 06:41 Pulse Ox 96 01/12/21 06:41 Intake & Output 01/11/21 01/12/21 01/12/21 18:59 06:59 18:59 Intake Total 240 240 240 Balance 240 240 240 Intake: Oral 240 240 240 Other: Voiding Method Toilet Toilet Toilet # Voids 4 - Exam No acute distress, oriented 3. The current remains on O2 at 4 L. Saturations are in the low 90s. Mild conversational dyspnea. Mild audible wheezing. HEENT examination is grossly unremarkable. Mucous membranes are moist. No oral lesions. Neck supple. Full range of motion. No adenopathy thyromegaly or neck vein distention. Cardiovascular examination reveals regular rhythm rate. S1-S2 normal. No S3 or S4. No discernible murmur noted. Heart sounds are distant. Heart rate 88 bpm. Lungs reveal bilateral inspiratory and expiratory wheezes and coarse inspiratory and expiratory rhonchi. No crackles. Breath sounds equal bilaterally. There is prolongation on forced maneuver. Abdomen soft bowel sounds are heard. No masses or tenderness. Extremities are intact. No cyanosis clubbing or edema. Skin is without rash or lesion. Neurologic examination is brief but nonfocal. - Labs CBC & Chem 7: 01/12/21 05:21 01/12/21 05:21 Labs: Abnormal Lab Results - Last 24 Hours (Table) 01/12/21 01/12/21 Range/Units 05:21 05:21 WBC 10.40 H (4.50-10.00) X 10*3/uL MCHC 29.7 L (32.0-37.0) g/dL RDW 15.5 H (11.5-14.5) % Immature Gran # 0.10 H (0.00-0.04) X 10*3/uL Neutrophils # 9.39 H (1.80-7.70) X 10*3/uL Lymphocytes # 0.46 L (0.90-5.00) X 10*3/uL Eosinophils # 0 L (0.04-0.35) X 10*3/uL BUN/Creatinine Ratio 23.33 H (12.00-20.00) Ratio Glucose 159 H (70-110) mg/dL Microbiology - Last 24 Hours (Table) 01/09/21 15:46 Gram Stain - Final Sputum Sputum Culture - Final Assessment and Plan Assessment: COPD exacerbation, complicated by purulent tracheobronchitis/bronchopneumonia. Prior history of significant tobacco use, with development of COPD. Hyperlipidemia by history. History of hypertension. History of atrial fibrillation. History of CVA. Prior history of myocardial infarction. History of osteoarthritis. Chronic hypoxemic respiratory failure. History of seasonal ALLERGIES. Prior history of brain aneurysm, status post clipping, 2000 Plan: Plan dated 01/12/2021. The patient continues on appropriate medications including Pulmicort, Per foromist, albuterol sulfate, ipratropium bromide, Singulair, and systemic corticosteroids. She is also on Zosyn. This can probably be de-escalated as her pro-calcitonin level is low. We will continue to follow, and make recommendations were appropriate. The patient is only minimally improved. I did mention to her, that Dr. Artis, follow with me on Thursday, may choose to do bronchoscopy and BAL on her. Additional recommendations and suggestions are forthcoming. Prognosis is guarded. Time with Patient: Less than 30
[2021-01-12] MEDS: MONTELUKAST 10 MG TAB PO SCH (20:11)
[2021-01-12] MEDS: ATORVASTATIN 80 MG TAB PO SCH (20:11)
[2021-01-13] MEDS: BENZOCAINE/MENTHOL LOZENG 1 EACH LOZENGE MUCOUS MEM PRN (00:40)
[2021-01-13] MEDS: IPRATROPIUM-ALBUTEROL 3 ML NEB INHALATION PRN (03:24)
[2021-01-13] MEDS: PIPERACILLIN-TAZOBACTAM 3.375 GM in SODIUM CHLORIDE 0.9% 100 ML IVPB SCH ×3 (03:34→20:45)
[2021-01-13] MEDS: methylPREDNISolone SOD SUCCI 125 MG/2 ML VIAL IV SCH ×4 (05:36→23:09)
[2021-01-13] MEDS: FORMOTEROL FUMARATE 20 MCG/2 ML NEBU INHALATION SCH ×2 (07:06→15:49)
[2021-01-13] MEDS: BUDESONIDE 1 MG/2 ML NEBU INHALATION SCH ×2 (07:06→15:48)
[2021-01-13] MEDS: IPRATROPIUM-ALBUTEROL 3 ML NEB INHALATION SCH ×4 (07:06→19:47)
[2021-01-13] MEDS: lisinopriL 5 MG TAB PO SCH (09:01)
[2021-01-13] MEDS: FAMOTIDINE 20 MG TAB PO SCH ×2 (09:01→20:44)
[2021-01-13] MEDS: APIXABAN 5 MG TAB PO SCH ×2 (09:01→20:44)
[2021-01-13] MEDS: AMIODARONE 200 MG TAB PO SCH ×2 (09:01→20:44)
[2021-01-13] MEDS: NYSTATIN 100,000 UNIT/ML SUSP 500,000 UNIT/5 ML CUP PO SCH ×4 (09:02→20:45)
--- NOTE | 2021-01-13 11:42 | P.PN ---
Subjective Patient is a pleasant the 65-year-old female with known history of COPD came in with complaints of shortness of breath, productive cough congestion, patient had a chest x-ray which is a showing possibility of bronchopneumonia and severe bronchitis. Patient is wheezing patient does use 2 L of onset at home presently on 3 L. Patient is on antibiotics for pneumonia at this time. Patient has a 40 year smoking history denied any fever chills patient and any chest pain. 01/10/2021 Patient is Seen and evaluated this morning and follow-up continues to be dyspneic with exertion with cough and congestion and expiratory wheezing noted on exam. Pulmonary following. Patient is currently maintained on breathing inhalational treatments along with IV steroids and and will continue at this time. Labs today within normal limits.. 01/11/2021 Patient is seen this morning continues to be extremely dyspneic with minimal exertion and cough with phlegm production and wheezing on exam. Michelle is following. Patient is maintained on breathing inhalational treatments along with IV steroids and will continue. Patient also has IV Zosyn on and will co ntinue with this at this time. 01/12/2021 Patient is still wheezing does have oral thrush, started on nystatin, constipated started on MiraLAX complaining of sore throat ordered cepacol. 01/13/2021 Patient is still wheezing and rhonchorous, may undergo bronchoscopy tomorrow after evaluation by pulmonary. Constitutional: Denied any fatigue denied any fever. Cardio vascular: denied any chest pain, palpitations Gastrointestinal denied any nausea vomiting Pulmonary: As mentioned in the interval history Neurologic denied any new focal deficits All inpatient medications were reviewed and appropriate changes in these medications as dictated in the interval history and assessment and plan. Objective - Vital Signs Vital signs: Vital Signs Temp 97.7 F 01/13/21 08:57 Pulse 86 01/13/21 11:08 Resp 18 01/13/21 08:57 BP 158/76 01/13/21 08:57 Pulse Ox 94 L 01/13/21 08:57 Intake & Output 01/12/21 01/13/21 01/13/21 18:59 06:59 18:59 Intake Total 720 240 Output Total 1 Balance 720 -1 240 Intake: Oral 720 240 Output: Urine/Stool Mix 1 Other: Voiding Method Toilet Bedside Commode Bedside Commode # Voids 2 # Bowel Movements 1 - Exam GENERAL: The patient is alert and oriented x3, not in any acute distress. Well developed, well nourished. HEENT: Pupils are round and equally reacting to light. EOMI. No scleral icterus. No conjunctival pallor. Normocephalic, atraumatic. No pharyngeal erythema. No thyromegaly. CARDIOVASCULAR: S1 and S2 present. No murmurs, rubs, or gallops. PULMONARY: Patient has expiratory wheezing with bilateral diffuse rhonchi ABDOMEN: Soft, nontender, nondistended, normoactive bowel sounds. No palpable organomegaly. MUSCULOSKELETAL: No joint swelling or deformity. EXTREMITIES: No cyanosis, clubbing, or pedal edema. NEUROLOGICAL: Gross neurological examination did not reveal any focal deficits. SKIN: No rashes. - Labs CBC & Chem 7: 01/12/21 05:21 01/12/21 05:21 Assessment and Plan Plan: Assessment and Plan Assessment: -Acute on chronic hypoxic and hypercapnic respiratory failure secondary to COPD exacerbation. patient continues systemic steroids and inhalational treatments. She is maintained on IV steroids which have been increased as she continues to have extreme expiratory wheezing noted on exam -Tracheo-bronchitis severe or bronchopneumonia patient will be continued on IV antibiotics -Hypertension -Paroxysmal atrial fibrillation presently rate controlled patient is on anticoagulation which will be continued -History of CVA in the past without any residual weakness -Coronary artery disease -History of brain aneurysm with clipping in the past. -GI prophylaxis with Pepcid
--- NOTE | 2021-01-13 13:59 | P.PN ---
Subjective Progress Note Date: 01/13/21 Principal diagnosis: COPD exacerbation. On 01/10/2021 patient seen in follow-up on medical floor, breathing a lot easier today, however not back to baseline, she is on room air, pulse ox is 92%, she has been afebrile, lower extremity Doppler showed no evidence of DVT in the left leg. Left knee x-ray showed no acute fracture and normal joint spaces. COVID 19 test was negative, progesterone level was negative at 0.08, electrolytes and renal profile were within normal limits, white blood cell count was 10.1, hemoglobin was 12.1. Patient remains on IV steroids 40 mg every 6 hours of Solu-Medrol, and she is on Zosyn for antibiotic coverage. Sputum culture has been sent, pending at this time On 01/11/2021 patient seen in follow-up on medical floor. Still quite wheezy a nd dyspneic with exertion, she's been afebrile, she remains on Symbicort, IV steroids 40 mg every 8 hours, DuoNeb, and Zosyn for empiric antibiotics, sputum culture has been sent and has shown no growth. Today's labs have been reviewed, pro-calcitonin level was negative at 0.08, she was negative for COVID 19. Progress note dated 01/12/2021. The patient continues to be quite short of breath, wheezing, and congested. She remains in the 6 N. hour. She is improved only minimally. I did mention to her, that Dr. Artis may decide to do a bronchoscopy and BAL and her next week. She currently remains on all appropriate medications including short acting beta agonist, short acting muscarinic antagonist, long-acting beta agonist, inhaled corticosteroids, systemic corticosteroids, and antibiotics. White count is 10.4, hemoglobin 12.2, hematocrit 41.1, platelet count 291,000. Sodium 144, potassium 5, chloride 104, CO2 28.1, BUN 21, and creatinine 0.9. Thus far microbiology is negative. Pro-calcitonin level was 0.08. Progress note dated 01/13/2021. 65-year-old female seen in follow-up on the North hour. She remains in room 616. The patient is only minimally improved today. She remains on oxygen therapy. Today, we talked her about the possibility that Dr. Artis may want to do bronchoscopy and BAL. Hence, we went ahead and kept her nothing by mouth. We will let him make that decision. Again, her primary issues included shortness of breath, tightness, chest congestion, coughing, and significant wheezing. White count 10.4, he will be 12.2, hematocrit 41.1, and platelet count 291,000. Sodium, potassium, chloride, CO2, anion gap, BUN, and creatinine are all normal. The patient remains on maximal medical therapy. Microbiology thus far negative. Objective - Vital Signs Vital signs: Vital Signs Temp 97.7 F 01/13/21 08:57 Pulse 86 01/13/21 11:08 Resp 18 01/13/21 08:57 BP 158/76 01/13/21 08:57 Pulse Ox 94 L 01/13/21 08:57 Intake & Output 01/12/21 01/13/21 01/13/21 18:59 06:59 18:59 Intake Total 720 240 Output Total 1 Balance 720 -1 240 Intake: Oral 720 240 Output: Urine/Stool Mix 1 Other: Voiding Method Toilet Bedside Commode Bedside Commode # Voids 2 # Bowel Movements 1 - Exam No acute distress, oriented 3. The current remains on O2 at 4 L. Saturations are in the low 90s. Mild conversational dyspnea. Mild audible wheezing. HEENT examination is grossly unremarkable. Mucous membranes are moist. Neck supple. Full range of motion. No adenopathy thyromegaly or neck vein distention. Cardiovascular examination reveals regular rhythm rate. S1-S2 normal. No S3 or S4. No discernible murmur noted. Heart sounds are distant. Heart rate 81 bpm. Lungs reveal bilateral inspiratory and expiratory wheezes and coarse inspiratory and expiratory rhonchi. No crackles. Breath sounds equal bilaterally. There is prolongation on forced maneuver. Abdomen soft bowel sounds are heard. No masses or tenderness. Extremities are intact. No cyanosis clubbing or edema. Skin is without rash or lesion. Neurologic examination is brief but nonfocal. - Labs CBC & Chem 7: 01/12/21 05:21 01/12/21 05:21 Assessment and Plan Assessment: COPD exacerbation, complicated by purulent tracheobronchitis/bronchopneumonia. Prior history of significant tobacco use, with development of COPD. Hyperlipidemia by history. History of hypertension. History of atrial fibrillation. History of CVA. Prior history of myocardial infarction. History of osteoarthritis. Chronic hypoxemic respiratory failure. History of seasonal ALLERGIES. Prior history of brain aneurysm, status post clipping, 2000 Plan: Plan dated 01/13/2021. The patient continues on appropriate medications including Pulmicort, Perforomist, albuterol sulfate, ipratropium bromide, Singulair, and systemic corticosteroids. She is also on Zosyn. The patient continues to have significant shortness of breath, chest tightness, cough, wheezing, and occasional phlegm production. This can probably be de-escalated as her pro- calcitonin level is low. We will continue to follow, and make recommendations were appropriate. The patient is only minimally improved. I did mention to her, that Dr. Artis, follow with me on Thursday, may choose to do bronchoscopy and BAL on her. Additional recommendations and suggestions are forthcoming. Prognosis is guarded. We did make the patient nothing by mouth for possible bronchoscopy in the morning. We will allow Dr. Artis to make that decision. Time with Patient: Less than 30
[2021-01-13] MEDS: HYDROcodone/APAP 5-325MG 1 EACH TAB PO PRN (20:43)
[2021-01-13] MEDS: ATORVASTATIN 80 MG TAB PO SCH (20:44)
[2021-01-13] MEDS: MONTELUKAST 10 MG TAB PO SCH (20:44)
[2021-01-14] MEDS: IPRATROPIUM-ALBUTEROL 3 ML NEB INHALATION PRN (00:51)
[2021-01-14] MEDS: BENZOCAINE/MENTHOL LOZENG 1 EACH LOZENGE MUCOUS MEM PRN ×2 (02:54→18:03)
[2021-01-14] MEDS: PIPERACILLIN-TAZOBACTAM 3.375 GM in SODIUM CHLORIDE 0.9% 100 ML IVPB SCH ×3 (03:45→20:47)
[2021-01-14] MEDS: IPRATROPIUM-ALBUTEROL 3 ML NEB INHALATION SCH ×5 (04:30→19:08)
[2021-01-14] MEDS: methylPREDNISolone SOD SUCCI 125 MG/2 ML VIAL IV SCH ×4 (05:47→23:40)
[2021-01-14] MEDS: FORMOTEROL FUMARATE 20 MCG/2 ML NEBU INHALATION SCH ×2 (07:25→19:08)
[2021-01-14] MEDS: BUDESONIDE 1 MG/2 ML NEBU INHALATION SCH ×2 (07:26→19:08)
[2021-01-14] MEDS: lisinopriL 5 MG TAB PO SCH (08:47)
[2021-01-14] MEDS: APIXABAN 5 MG TAB PO SCH ×2 (08:47→20:46)
[2021-01-14] MEDS: AMIODARONE 200 MG TAB PO SCH ×2 (08:47→20:47)
[2021-01-14] MEDS: FAMOTIDINE 20 MG TAB PO SCH ×2 (08:47→20:46)
[2021-01-14] MEDS: NYSTATIN 100,000 UNIT/ML SUSP 500,000 UNIT/5 ML CUP PO SCH ×4 (08:48→20:47)
[2021-01-14] MEDS ORDERED: PROPOFOL 10 MG/ML 20 ML VIAL IV ONE (12:34)
[2021-01-14] MEDS ORDERED: fentaNYL (PF) 50 MCG/ML 2 ML AMP ONE (12:34)
[2021-01-14] MEDS ORDERED: LIDOCAINE 1% INJ 10MG/ML (20 ML MDV) ONE (12:34)
[2021-01-14] MEDS ORDERED: GLYCOPYRROLATE 0.2 MG/ML 2 ML VIAL ONE (12:34)
[2021-01-14] MEDS ORDERED: MIDAZOLAM 2 MG/2 ML VIAL ONE (12:34)
[2021-01-14] MEDS ORDERED: KETAMINE 10 MG/ML 20 ML VIAL ONE (12:34)
[2021-01-14] MEDS ORDERED: IV FLUID CONTINUATION 1,000 ML IV ONE ×2 (12:38)
--- NOTE | 2021-01-14 12:41 | P.PN ---
Subjective Progress Note Date: 01/14/21 On 01/10/2021 patient seen in follow-up on medical floor, breathing a lot easier today, however not back to baseline, she is on room air, pulse ox is 92%, she has been afebrile, lower extremity Doppler showed no evidence of DVT in the left leg. Left knee x-ray showed no acute fracture and normal joint spaces. COVID 19 test was negative, progesterone level was negative at 0.08, electrolytes and renal profile were within normal limits, white blood cell count was 10.1, hemoglobin was 12.1. Patient remains on IV steroids 40 mg every 6 hours of Solu-Medrol, and she is on Zosyn for antibiotic coverage. Sputum culture has been sent, pending at this time On 01/11/2021 patient seen in follow-up on medical floor. Still quite wheezy and dyspneic with exertion, she's been afebrile, she remains on Symbicort, IV steroids 40 mg every 8 hours, DuoNeb, and Zosyn for empiric antibiotics, sputum culture has been sent and has shown no growth. Today's labs have been reviewed, pro-calcitonin level was negative at 0.08, she was negative for COVID 19. Progress note dated 01/12/2021. The patient continues to be quite short of breath, wheezing, and congested. She remains in the 6 N. hour. She is improved only minimally. I did mention to her, that Dr. Artis may decide to do a bronchoscopy and BAL and her next week. She currently remains on all appropriate medications including short acting beta agonist, short acting muscarinic antagonist, long-acting beta agonist, inhaled corticosteroids, systemic corticosteroids, and antibiotics. White count is 10.4, hemoglobin 12.2, hematocrit 41.1, platelet count 291,000. Sodium 144, potassium 5, chloride 104, CO2 28.1, BUN 21, and creatinine 0.9. Thus far microbiology is negative. Pro-calcitonin level was 0.08. Progress note dated 01/13/2021. 65-year-old female seen in follow-up on the [place] hour. She remains in room 616. The patient is only minimally improved today. She remains on oxygen therapy. Today, we talked her about the possibility that Dr. Artis may want to do bronchoscopy and BAL. Hence, we went ahead and kept her nothing by mouth. We will let him make that decision. Again, her primary issues included shortness of breath, tightness, chest congestion, coughing, and significant wheezing. White count 10.4, he will be 12.2, hematocrit 41.1, and platelet count 291,000. Sodium, potassium, chloride, CO2, anion gap, BUN, and creatinine are all normal. The patient remains on maximal medical therapy. Microbiology thus far negative. 01/15/2000 and the patient is going to have a bronchoscopy for therapeutic airwa y suctioning. The patient is known to have COPD. The patient is still struggling with breathing and has a congested cough and shortness of breath and chest tightness and wheezing. The patient has a gated Covid 19 testing. White cell count of 10.4. Electrolytes are all within normal limits. The BUN is at 21 with a creatinine of 0.9. In terms of medication, the patient is covered with DuoNeb nebulized treatments around the clock and he remains on IV Solu- Medrol and IV Zosyn as an empiric antibiotic coverage. The microbiology from his sputum culture has been negative. The plan is to proceed with a bronchoscopy and the BAL and the patient is on long-term anticoagulation with Eliquis. Objective - Vital Signs Vital signs: Vital Signs Temp 97.8 F 01/14/21 08:00 Pulse 82 01/14/21 11:05 Resp 20 01/14/21 08:00 BP 166/70 01/14/21 08:00 Pulse Ox 96 01/14/21 08:00 Intake & Output 01/13/21 01/14/21 01/14/21 18:59 06:59 18:59 Intake Total 720 Balance 720 Intake: Oral 720 Other: Voiding Method Bedside Commode Bedside Commode Bedside Commode # Voids 3 1 # Bowel Movements 1 - Exam No acute distress, oriented 3. The current remains on O2 at 4 L. Saturations are in the low 90s. Mild conversational dyspnea. HEENT examination is grossly unremarkable. Mucous membranes are moist. Neck supple. Full range of motion. No adenopathy thyromegaly or neck vein distention. Cardiovascular examination reveals regular rhythm rate. S1-S2 normal. No S3 or S4. No discernible murmur noted. Heart sounds are distant. bpm. Lungs reveal bilateral inspiratory and expiratory wheezes and coarse inspiratory and expiratory rhonchi. No crackles. Breath sounds equal bilaterally. There is prolongation on forced maneuver. Abdomen soft bowel sounds are heard. No masses or tenderness. Extremities are intact. No cyanosis clubbing or edema. Skin is without rash or lesion. Neurologic examination is brief but nonfocal. - Labs CBC & Chem 7: 01/12/21 05:21 01/12/21 05:21 Assessment and Plan Plan: COPD exacerbation, complicated by purulent tracheobronchitis/bronchopneumonia. Prior history of significant tobacco use, with development of COPD. Hyperlipidemia by history. History of hypertension. History of atrial fibrillation. History of CVA. Prior history of myocardial infarction. History of osteoarthritis. Chronic hypoxemic respiratory failure. History of seasonal ALLERGIES. Prior history of brain aneurysm, status post clipping, 2000 Plan Continue bronchodilators. Continue Zosyn. Continue steroids. Wean down the FiO2 as tolerated. Proceed with bronchoscopy and a bronchioloalveolar lavage. We'll continue to follow.
[2021-01-14] MEDS ORDERED: LIDOCAINE 2% INJ 20 MG/ML INTRATRACH ONE (12:50)
--- NOTE | 2021-01-14 13:04 | P.PCN ---
Date of Procedure: 01/14/21 Preoperative Diagnosis: COPD exacerbation Postoperative Diagnosis: COPD ecxacerbation, tacheobronchomalacia and mucus plugs Procedure(s) Performed: 'Bronchoscopy, therapeutic airway suctioning Anesthesia: MAC, local Surgeon: Uma Artis Pathology: other Condition: stable Disposition: floor Operative Findings: This procedure was done in the endoscopy suite. This procedure was under conscious sedation. After achieving adequate duration, the flexible scope was introduced through the left nostril was advanced upper airway. Examination of posterior oropharynx, larynx, epiglottis and vocal cords was done and all of the upper airway structures were within normal limits. Vocal cord abduction and adduction was within normal limits. His total of 2 mL of 1% lidocaine was applied to the vocal cords and following that the bronchoscope was advanced into the upper trachea. Examination the tracheal bronchial tree showed copious amount of mucous plugging and respiratory secretions are thin with the patient's airway. Therapeutic airway suctioning was done. 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 Saline was used to irrigate the secretions and following that the regular suctioning was done. Visualized airways included the entire trachea, bilateral mainstem bronchi, right upper lobe bronchus and right lower lobe bronchus regular lobe bronchus along with the 18 different right-sided segments and examination of the left-side included left upper lobe bronchus and left lower lobe bronchus along with its 10 different segment. No endobronchial tumors. No lesions. Bronchoscope was removed and the patient was transferred recovery in stable condition. The bronchial washings will be sent for microbial cultures and analysis.
--- NOTE | 2021-01-14 15:28 | P.PN ---
Subjective Progress Note Date: 01/14/21 Patient is a pleasant the 65-year-old female with known history of COPD came in with complaints of shortness of breath, productive cough congestion, patient had a chest x-ray which is a showing possibility of bronchopneumonia and severe bronchitis. Patient is wheezing patient does use 2 L of onset at home presently on 3 L. Patient is on antibiotics for pneumonia at this time. Patient has a 40 year smoking history denied any fever chills patient and any chest pain. 01/10/2021 Patient is Seen and evaluated this morning and follow-up continues to be dyspneic with exertion with cough and congestion and expiratory wheezing noted on exam. Pulmonary following. Patient is currently maintained on breathing inhalational treatments along with IV steroids and and will continue at this time. Labs today within normal limits.. 01/11/2021 Patient is seen this morning continues to be extremely dyspneic with minimal exertion and cough with phlegm production and wheezing on exam. Pulmonary is following. Patient is maintained on breathing inhalational treatments along with IV steroids and will continue. Patient also has IV Zosyn on and will continue with this at this time. 01/12/2021 Patient is still wheezing does have oral thrush, started on nystatin, constipated started on MiraLAX complaining of sore throat ordered cepacol. 01/13/2021 Patient is still wheezing and rhonchorous, may undergo bronchoscopy tomorrow after evaluation by pulmonary. 01/14/2021 Patient is seen and evaluated this morning currently awaiting to undergo bronchoscopy with BAL with Dr. Artis today. A continues to have expiratory wheezing along with a dry cough with some phlegm production although minimal and continued shortness of breath with minimal exertion. Patient is also maintained on IV antibiotic and will continue at this time. Patient to continue with breathing inhalational treatments along with IV steroids. Will repeat a.m. labs and continue to monitor closely. Review of systems: Constitutional: No reports of fatigue, fever, or chills Cardiovascular: No reports of chest pain or palpitations Respiratory: Reports continued shortness of breath and cough GI: No reports of nausea, vomiting, or diarrhea : No reports of dysuria or retention Neurovascular: No reports of weakness or numbness All medications have been reviewed Objective - Vital Signs Vital signs: Vital Signs Temp 97.8 F 01/14/21 08:00 Pulse 82 01/14/21 11:05 Resp 20 01/14/21 08:00 BP 166/70 01/14/21 08:00 Pulse Ox 96 01/14/21 08:00 Intake & Output 01/13/21 01/14/21 01/14/21 18:59 06:59 18:59 Intake Total 720 200 Balance 720 200 Intake: IV 200 Oral 720 Other: Voiding Method Bedside Commode Bedside Commode Bedside Commode # Voids 3 1 # Bowel Movements 1 - Exam GENERAL: The patient is alert and oriented x3, not in any acute distress. Well d eveloped, well nourished. HEENT: Pupils are round and equally reacting to light. EOMI. No scleral icterus. No conjunctival pallor. Normocephalic, atraumatic. No pharyngeal erythema. No thyromegaly. CARDIOVASCULAR: S1 and S2 present. No murmurs, rubs, or gallops. PULMONARY: Patient has expiratory wheezing with bilateral diffuse rhonchi ABDOMEN: Soft, nontender, nondistended, normoactive bowel sounds. No palpable organomegaly. MUSCULOSKELETAL: No joint swelling or deformity. EXTREMITIES: No cyanosis, clubbing, or pedal edema. NEUROLOGICAL: Gross neurological examination did not reveal any focal deficits. SKIN: No rashes. - Labs CBC & Chem 7: 01/12/21 05:21 01/12/21 05:21 Assessment and Plan Assessment: -Acute on chronic hypoxic and hypercapnic respiratory failure secondary to COPD exacerbation. patient continues systemic steroids and inhalational treatments. She is maintained on IV steroids. Pulmonary to do a bronchoscopy with BAL today -Tracheo-bronchitis severe or bronchopneumonia patient will be continued on IV antibiotics -Hypertension -Paroxysmal atrial fibrillation presently rate controlled patient is on anticoagulation which will be continued -History of CVA in the past without any residual weakness -Coronary artery disease -History of brain aneurysm with clipping in the past. -GI prophylaxis with Pepcid Plan: Continue with IV antibiotics, breathing inhalational treatments along with IV steroids. Pulmonary Is following. Patient is scheduled to undergo bronchoscopy with BAL with Dr. Artis today. Will await report. Instructed the patient to increase activity as tolerated. Will repeat a.m. labs. Will continue to monitor closely.
[2021-01-14] MEDS: ATORVASTATIN 80 MG TAB PO SCH (20:46)
[2021-01-14] MEDS: MONTELUKAST 10 MG TAB PO SCH (20:47)
[2021-01-15] MEDS: IPRATROPIUM-ALBUTEROL 3 ML NEB INHALATION SCH ×5 (00:28→19:07)
[2021-01-15] MEDS: PIPERACILLIN-TAZOBACTAM 3.375 GM in SODIUM CHLORIDE 0.9% 100 ML IVPB SCH ×3 (03:16→20:27)
[2021-01-15] MEDS: BENZOCAINE/MENTHOL LOZENG 1 EACH LOZENGE MUCOUS MEM PRN (03:21)
[2021-01-15] MEDS: IPRATROPIUM-ALBUTEROL 3 ML NEB INHALATION PRN ×2 (04:39→23:06)
[2021-01-15] MEDS: methylPREDNISolone SOD SUCCI 125 MG/2 ML VIAL IV SCH ×4 (05:26→23:06)
[2021-01-15] MEDS: BUDESONIDE 1 MG/2 ML NEBU INHALATION SCH ×2 (07:27→19:07)
[2021-01-15] MEDS: FORMOTEROL FUMARATE 20 MCG/2 ML NEBU INHALATION SCH ×2 (07:27→19:07)
[2021-01-15 08:36] LABS: Basophils # (A) 0.01 X 10*3/uL (0.00-0.10); Basophils % (A) 0.1 %; Eosinophils # (A) 0 X 10*3/uL (0.04-0.35); Eosinophils % (A) 0 %; HCT 37.4 % (37.2-46.3); HGB 11.2 g/dL (12.0-15.0); Lymphocytes # (A) 0.28 X 10*3/uL (0.90-5.00); Lymphocytes % (A) 2.5 %; MCH 27.1 pg (27.0-32.0); MCHC 29.9 g/dL (32.0-37.0); MCV 90.3 fL (80.0-97.0); Mean Platelet Volume 10.8 fL (9.5-12.2); Monocytes % (A) 5.4 %; Neutrophils # (A) 10.19 X 10*3/uL (1.80-7.70); Neutrophils % (A) 90.8 %; Platelet Count 230 X 10*3/uL (140-440); RBC 4.14 X 10*6/uL (4.10-5.20); RDW 15.4 % (11.5-14.5); WBC 11.21 X 10*3/uL (4.50-10.00)
[2021-01-15] MEDS: APIXABAN 5 MG TAB PO SCH ×2 (08:39→20:28)
[2021-01-15] MEDS: FAMOTIDINE 20 MG TAB PO SCH ×2 (08:39→20:28)
[2021-01-15] MEDS: AMIODARONE 200 MG TAB PO SCH ×2 (08:39→20:28)
[2021-01-15] MEDS: lisinopriL 5 MG TAB PO SCH (08:39)
[2021-01-15] MEDS: NYSTATIN 100,000 UNIT/ML SUSP 500,000 UNIT/5 ML CUP PO SCH ×4 (08:39→20:28)
[2021-01-15 09:30] LABS: African American GFR (CKD) 90.9 (60.0-200.0); Anion Gap 4.8 mmol/L (4.00-12.00); BUN/Creat Ratio 27.5 Ratio (12.00-20.00); Carbon Dioxide 35.2 mmol/L (21.6-31.8); Non-African American GFR(CKD) 78.5 (60.0-200.0); Potassium 4.7 mmol/L (3.5-5.5)
[2021-01-15] MEDS ORDERED: lisinopriL 5 MG TAB PO STA (10:40)
[2021-01-15 14:40] VITALS: BMI 29.7
--- NOTE | 2021-01-15 15:15 | P.PN ---
Subjective Progress Note Date: 01/15/21 Patient is a pleasant the 65-year-old female with known history of COPD came in with complaints of shortness of breath, productive cough congestion, patient had a chest x-ray which is a showing possibility of bronchopneumonia and severe bronchitis. Patient is wheezing patient does use 2 L of onset at home presently on 3 L. Patient is on antibiotics for pneumonia at this time. Patient has a 40 year smoking history denied any fever chills patient and any chest pain. 01/10/2021 Patient is Seen and evaluated this morning and follow-up continues to be dyspneic with exertion with cough and congestion and expiratory wheezing noted on exam. Pulmonary following. Patient is currently maintained on breathing inhalational treatments along with IV steroids and and will continue at this time. Labs today within normal limits.. 01/11/2021 Patient is seen this morning continues to be extremely dyspneic with minimal exertion and cough with phlegm production and wheezing on exam. Pulmonary is following. Patient is maintained on breathing inhalational treatments along with IV steroids and will continue. Patient also has IV Zosyn on and will continue with this at this time. 01/12/2021 Patient is still wheezing does have oral thrush, started on nystatin, constipated started on MiraLAX complaining of sore throat ordered cepacol. 01/13/2021 Patient is still wheezing and rhonchorous, may undergo bronchoscopy tomorrow after evaluation by pulmonary. 01/14/2021 Patient is seen and evaluated this morning currently awaiting to undergo bronchoscopy with BAL with Dr. Artis today. A continues to have expiratory wheezing along with a dry cough with some phlegm production although minimal and continued shortness of breath with minimal exertion. Patient is also maintained on IV antibiotic and will continue at this time. Patient to continue with breathing inhalational treatments along with IV steroids. Will repeat a.m. labs and continue to monitor closely. 01/15/2021 Patient is seen this morning in follow-up status post bronchoscopy with BAL. No acute overnight issues noted. Patient continues to have severe expiratory wheezing noted on exam and is currently maintained on 3 L of oxygen via nasal cannula. She does use oxygen in the outpatient setting. Patient is also maintained on IV antibiotics in the form of Zosyn and will continue with IV steroids along with breathing inhalational treatments. Patient states she feels somewhat better status post bronchoscopy but continues to have dyspnea with exertion. Encourage the patient to increase activity as tolerated. Repeat labs this morning within normal limits. Continue to wean FiO2 as tolerated. Review of systems: Constitutional: No reports of fatigue, fever, or chills Cardiovascular: No reports of chest pain or palpitations Respiratory: Reports continued shortness of breath and cough GI: No reports of nausea, vomiting, or diarrhea : No reports of dysuria or retention Neurovascular: No reports of weakness or numbness All medications have been reviewed Objective - Vital Signs Vital signs: Vital Signs Temp 98 F 01/15/21 07:01 Pulse 75 01/15/21 11:03 Resp 20 01/15/21 07:01 BP 170/76 01/15/21 07:01 Pulse Ox 95 01/15/21 07:28 Intake & Output 01/14/21 01/15/21 01/15/21 18:59 06:59 18:59 Intake Total 1000 200 Balance 1000 200 Intake: IV 200 Intake, IV Titration 800 200 Amount Piperacillin-Tazobactam 3 800 200 .375 gm In Sodium Chloride 0.9% 100 ml @ 25 mls/hr IVPB [facility] Rx#: [id number] Other: Voiding Method Bedside Commode Bedside Commode Bedside Commode # Voids 2 2 1 # Bowel Movements 1 - Exam GENERAL: The patient is alert and oriented x3, not in any acute distress. Well developed, well nourished. HEENT: Pupils are round and equally reacting to light. EOMI. No scleral icterus. No conjunctival pallor. Normocephalic, atraumatic. No pharyngeal erythema. No thyromegaly. CARDIOVASCULAR: S1 and S2 present. No murmurs, rubs, or gallops. PULMONARY: Patient has expiratory wheezing with bilateral diffuse rhonchi, lung sounds improved although continues with extreme expiratory wheezing noted ABDOMEN: Soft, nontender, nondistended, normoactive bowel sounds. No palpable organomegaly. MUSCULOSKELETAL: No joint swelling or deformity. EXTREMITIES: No cyanosis, clubbing, or pedal edema. NEUROLOGICAL: Gross neurological examination did not reveal any focal deficits. SKIN: No rashes. - Labs CBC & Chem 7: 01/15/21 04:35 01/15/21 04:35 Labs: Abnormal Lab Results - Last 24 Hours (Table) 03/23/21 03/23/21 Range/Units 04:35 04:35 WBC 11.21 H (4.50-10.00) X 10*3/uL Hgb 11.2 L (12.0-15.0) g/dL MCHC 29.9 L (32.0-37.0) g/dL RDW 15.4 H (11.5-14.5) % Immature Gran # 0.13 H (0.00-0.04) X 10*3/uL Neutrophils # 10.19 H (1.80-7.70) X 10*3/uL Lymphocytes # 0.28 L (0.90-5.00) X 10*3/uL Eosinophils # 0 L (0.04-0.35) X 10*3/uL Carbon Dioxide 35.2 H (21.6-31.8) mmol/L BUN/Creatinine Ratio 27.50 H (12.00-20.00) Ratio Glucose 164 H (70-110) mg/dL Microbiology - Last 24 Hours (Table) 01/14/21 12:51 Gram Stain - Preliminary Bronchial Washings - Left Bronchial Washings Culture - Preliminary 01/14/21 12:51 Fungal Culture - Preliminary Bronchial Washings - Left 01/14/21 12:51 Acid Fast Bacilli Culture - Preliminary Bronchial Washings - Left Assessment and Plan Assessment: -Acute on chronic hypoxic and hypercapnic respiratory failure secondary to COPD exacerbation. patient continues systemic steroids and inhalational treatments. She is maintained on IV steroids. She is status post bronchoscopy with BAL. Pulmonary following -Tracheo-bronchitis severe or bronchopneumonia patient will be continued on IV antibiotics -Hypertension -Paroxysmal atrial fibrillation presently rate controlled patient is on anticoagulation which will be continued -History of CVA in the past without any residual weakness -Coronary artery disease -History of brain aneurysm with clipping in the past. -GI prophylaxis with Pepcid Plan: Continue with IV antibiotics, breathing inhalational treatments along with IV steroids. Pulmonary Is following. Patient underwent bronchoscopy with BAL with Dr. Artis. Patient reports improvement in breathing although continues to be dyspneic with exertion and expiratory wheezing noted on exam. Instructed the patient to increase activity as tolerated. Continue to wean FiO2 as tolerated. Blood pressure slightly elevated and will increase dose of lisinopril to 10 mg daily. Will repeat a.m. labs. Will continue to monitor closely. Possible discharge in 24-48 hours.
[2021-01-15] MEDS: HYDROcodone/APAP 5-325MG 1 EACH TAB PO PRN ×2 (15:33→23:07)
--- NOTE | 2021-01-15 16:09 | P.PN ---
Subjective Progress Note Date: 01/15/21 On 01/10/2021 patient seen in follow-up on medical floor, breathing a lot easier today, however not back to baseline, she is on room air, pulse ox is 92%, she has been afebrile, lower extremity Doppler showed no evidence of DVT in the left leg. Left knee x-ray showed no acute fracture and normal joint spaces. COVID 19 test was negative, progesterone level was negative at 0.08, electrolytes and renal profile were within normal limits, white blood cell count was 10.1, hemoglobin was 12.1. Patient remains on IV steroids 40 mg every 6 hours of Solu-Medrol, and she is on Zosyn for antibiotic coverage. Sputum culture has been sent, pending at this time On 01/11/2021 patient seen in follow-up on medical floor. Still quite wheezy and dyspneic with exertion, she's been afebrile, she remains on Symbicort, IV steroids 40 mg every 8 hours, DuoNeb, and Zosyn for empiric antibiotics, sputum culture has been sent and has shown no growth. Today's labs have been reviewed, pro-calcitonin level was negative at 0.08, she was negative for COVID 19. Progress note dated 01/12/2021. The patient continues to be quite short of breath, wheezing, and congested. She remains in the 6 N. hour. She is improved only minimally. I did mention to her, that Dr. Artis may decide to do a bronchoscopy and BAL and her next week. She currently remains on all appropriate medications including short acting beta agonist, short acting muscarinic antagonist, long-acting beta agonist, inhaled corticosteroids, systemic corticosteroids, and antibiotics. White count is 10.4, hemoglobin 12.2, hematocrit 41.1, platelet count 291,000. Sodium 144, potassium 5, chloride 104, CO2 28.1, BUN 21, and creatinine 0.9. Thus far microbiology is negative. Pro-calcitonin level was 0.08. Progress note dated 01/13/2021. 65-year-old female seen in follow-up on the North hour. She remains in room 616. The patient is only minimally improved today. She remains on oxygen therapy. Today, we talked her about the possibility that Dr. Artis may want to do bronchoscopy and BAL. Hence, we went ahead and kept her nothing by mouth. We will let him make that decision. Again, her primary issues included shortness of breath, tightness, chest congestion, coughing, and significant wheezing. White count 10.4, he will be 12.2, hematocrit 41.1, and platelet count 291,000. Sodium, potassium, chloride, CO2, anion gap, BUN, and creatinine are all normal. The patient remains on maximal medical therapy. Microbiology thus far negative. 01/15/2000 and the patient is going to have a bronchoscopy for therapeutic airwa y suctioning. The patient is known to have COPD. The patient is still struggling with breathing and has a congested cough and shortness of breath and chest tightness and wheezing. The patient has a gated Covid 19 testing. White cell count of 10.4. Electrolytes are all within normal limits. The BUN is at 21 with a creatinine of 0.9. In terms of medication, the patient is covered with DuoNeb nebulized treatments around the clock and he remains on IV Solu- Medrol and IV Zosyn as an empiric antibiotic coverage. The microbiology from his sputum culture has been negative. The plan is to proceed with a bronchoscopy and the BAL and the patient is on long-term anticoagulation with Eliquis. 01/15 2021, the patient is post bronchoscopy. Immediately after the bronchoscopy, she felt better and subsequently some of the congestion is back. The culture are still negative for now. She remains on IV Solu-Medrol. She remains on IV Zosyn. Awaiting final cultures and she remains on Eliqui No other new complaints otherwise for now. Objective - Vital Signs Vital signs: Vital Signs Temp 98.4 F 01/15/21 15:11 Pulse 78 01/15/21 15:19 Resp 18 01/15/21 15:19 BP 146/73 01/15/21 15:11 Pulse Ox 93 L 01/15/21 15:11 Intake & Output 01/14/21 01/15/21 01/15/21 18:59 06:59 18:59 Intake Total 1000 200 Balance 1000 200 Weight 86.183 kg Intake: IV 200 Intake, IV Titration 800 200 Amount Piperacillin-Tazobactam 3 800 200 .375 gm In Sodium Chloride 0.9% 100 ml @ 25 mls/hr IVPB Q8H [facility] Rx#: [id number] Other: Voiding Method Bedside Commode Bedside Commode Bedside Commode # Voids 2 2 1 # Bowel Movements 1 - Exam No acute distress, oriented 3. The current remains on O2 at 4 L. Saturations are in the low 90s. Mild conversational dyspnea. HEENT examination is grossly unremarkable. Mucous membranes are moist. Neck supple. Full range of motion. No adenopathy thyromegaly or neck vein distention. Cardiovascular examination reveals regular rhythm rate. S1-S2 normal. No S3 or S4. No discernible murmur noted. Heart sounds are distant. bpm. Lungs reveal bilateral inspiratory and expiratory wheezes and coarse inspiratory and expiratory rhonchi. No crackles. Breath sounds equal bilaterally. There is prolongation on forced maneuver. Abdomen soft bowel sounds are heard. No masses or tenderness. Extremities are intact. No cyanosis clubbing or edema. Skin is without rash or lesion. Neurologic examination is brief but nonfocal. - Labs CBC & Chem 7: 01/15/21 04:35 01/15/21 04:35 Labs: Abnormal Lab Results - Last 24 Hours (Table) 01/15/21 01/15/21 Range/Units 04:35 04:35 WBC 11.21 H (4.50-10.00) X 10*3/uL Hgb 11.2 L (12.0-15.0) g/dL MCHC 29.9 L (32.0-37.0) g/dL RDW 15.4 H (11.5-14.5) % Immature Gran # 0.13 H (0.00-0.04) X 10*3/uL Neutrophils # 10.19 H (1.80-7.70) X 10*3/uL Lymphocytes # 0.28 L (0.90-5.00) X 10*3/uL Eosinophils # 0 L (0.04-0.35) X 10*3/uL Carbon Dioxide 35.2 H (21.6-31.8) mmol/L BUN/Creatinine Ratio 27.50 H (12.00-20.00) Ratio Glucose 164 H (70-110) mg/dL Microbiology - Last 24 Hours (Table) 01/14/21 12:51 Gram Stain - Preliminary Bronchial Washings - Left Bronchial Washings Culture - Preliminary 01/14/21 12:51 Fungal Culture - Preliminary Bronchial Washings - Left 01/14/21 12:51 Acid Fast Bacilli Culture - Preliminary Bronchial Washings - Left Assessment and Plan Plan: 1 COPD exacerbation, complicated by purulent tracheobronchitis/bronchopneumonia. 2 Hyperlipidemia by history. 3 History of hypertension. 4 History of atrial fibrillation. 5 History of CVA. 6 Prior history of myocardial infarction. 7 History of osteoarthritis. 8 Chronic hypoxemic respiratory failure. 9 History of seasonal ALLERGIES. 10 Prior history of brain aneurysm, status post clipping, 2000 Plan Continue bronchodilators. Continue Zosyn. Continue steroids. Wean down the FiO2 as tolerated. . The bronchoscopy has been completed successfully and the patient is already feeling better with therapeutic it was suctioning was done and the patient had significant amount of rest or secretions that were suctioned out. Awaiting final cultures. Meanwhile keep the same treatment. May start t apering steroids as of tomorrow depending on her overall condition. She is less bronchospastic and wheezy on today's evaluation.
[2021-01-15] MEDS: MONTELUKAST 10 MG TAB PO SCH (20:28)
[2021-01-15] MEDS: ATORVASTATIN 80 MG TAB PO SCH (20:28)
[2021-01-16] MEDS: IPRATROPIUM-ALBUTEROL 3 ML NEB INHALATION PRN (03:12)
[2021-01-16] MEDS: PIPERACILLIN-TAZOBACTAM 3.375 GM in SODIUM CHLORIDE 0.9% 100 ML IVPB SCH ×2 (03:31→13:58)
[2021-01-16] MEDS: methylPREDNISolone SOD SUCCI 125 MG/2 ML VIAL IV SCH ×2 (05:30→14:52)
[2021-01-16] MEDS: BUDESONIDE 1 MG/2 ML NEBU INHALATION SCH ×2 (07:19→19:46)
[2021-01-16] MEDS: IPRATROPIUM-ALBUTEROL 3 ML NEB INHALATION SCH ×4 (07:19→19:46)
[2021-01-16] MEDS: FORMOTEROL FUMARATE 20 MCG/2 ML NEBU INHALATION SCH ×2 (07:19→19:46)
[2021-01-16 08:48] LABS: Basophils # (A) 0.02 X 10*3/uL (0.00-0.10); Basophils % (A) 0.2 %; Eosinophils # (A) 0 X 10*3/uL (0.04-0.35); Eosinophils % (A) 0 %; HCT 37.6 % (37.2-46.3); HGB 11.4 g/dL (12.0-15.0); Lymphocytes # (A) 0.29 X 10*3/uL (0.90-5.00); Lymphocytes % (A) 2.7 %; MCHC 30.3 g/dL (32.0-37.0); MCV 88.9 fL (80.0-97.0); Mean Platelet Volume 10.8 fL (9.5-12.2); Monocytes # (A) 0.74 X 10*3/uL (0.20-1.00); Monocytes % (A) 6.8 %; Neutrophils # (A) 9.68 X 10*3/uL (1.80-7.70); Neutrophils % (A) 88.7 %; Platelet Count 221 X 10*3/uL (140-440); RBC 4.23 X 10*6/uL (4.10-5.20); RDW 15.4 % (11.5-14.5)
[2021-01-16] MEDS: APIXABAN 5 MG TAB PO SCH ×2 (08:52→20:48)
[2021-01-16] MEDS: NYSTATIN 100,000 UNIT/ML SUSP 500,000 UNIT/5 ML CUP PO SCH ×4 (08:52→21:47)
[2021-01-16] MEDS: FAMOTIDINE 20 MG TAB PO SCH ×2 (08:52→20:48)
[2021-01-16] MEDS: AMIODARONE 200 MG TAB PO SCH ×2 (08:52→20:49)
[2021-01-16] MEDS: lisinopriL 10 MG TAB PO SCH (08:53)
[2021-01-16 09:18] LABS: African American GFR (CKD) 90.9 (60.0-200.0); Anion Gap 7.2 mmol/L (4.00-12.00); Calcium 8.7 mg/dL (8.7-10.3); Carbon Dioxide 31.8 mmol/L (21.6-31.8); Non-African American GFR(CKD) 78.5 (60.0-200.0); Potassium 4.3 mmol/L (3.5-5.5)
--- NOTE | 2021-01-16 10:58 | P.PN ---
Subjective Progress Note Date: 01/16/21 Principal diagnosis: On 01/10/2021 patient seen in follow-up on medical floor, breathing a lot easier today, however not back to baseline, she is on room air, pulse ox is 92%, she has been afebrile, lower extremity Doppler showed no evidence of DVT in the left leg. Left knee x-ray showed no acute fracture and normal joint spaces. COVID 19 test was negative, progesterone level was negative at 0.08, electrolytes and renal profile were within normal limits, white blood cell count was 10.1, hemoglobin was 12.1. Patient remains on IV steroids 40 mg every 6 hours of Solu-Medrol, and she is on Zosyn for antibiotic coverage. Sputum culture has been sent, pending at this time On 01/11/2021 patient seen in follow-up on medical floor. Still quite wheezy and dyspneic with exertion, she's been afebrile, she remains on Symbicort, IV steroids 40 mg every 8 hours, DuoNeb, and Zosyn for empiric antibiotics, sputum culture has been sent and has shown no growth. Today's labs have been reviewed, pro-calcitonin level was negative at 0.08, she was negative for COVID 19. Progress note dated 01/12/2021. The patient continues to be quite short of breath, wheezing, and congested. She remains in the 6 N. hour. She is improved only minimally. I did mention to her, that Dr. Artis may decide to do a bronchoscopy and BAL and her next week. She currently remains on all appropriate medications including short acting beta agonist, short acting muscarinic antagonist, long-acting beta agonist, inhaled corticosteroids, systemic corticosteroids, and antibiotics. White count is 10.4, hemoglobin 12.2, hematocrit 41.1, platelet count 291,000. Sodium 144, potassium 5, chloride 104, CO2 28.1, BUN 21, and creatinine 0.9. Thus far microbiology is negative. Pro-calcitonin level was 0.08. Progress note dated 01/13/2021. 65-year-old female seen in follow-up on the [place] hour. She remains in room 616. The patient is only minimally improved today. She remains on oxygen therapy. Today, we talked her about the possibility that Dr. Artis may want to do bronchoscopy and BAL. Hence, we went ahead and kept her nothing by mouth. We will let him make that decision. Again, her primary issues included shortness of breath, tightness, chest congestion, coughing, and significant wheezing. White count 10.4, he will be 12.2, hematocrit 41.1, and platelet count 291,000. Sodium, potassium, chloride, CO2, anion gap, BUN, and creatinine are all normal. The patient remains on maximal medical therapy. Microbiology thus far negative. 01/15/2000 and the patient is going to have a bronchoscopy for therapeutic airway suctioning. The patient is known to have COPD. The patient is still struggling with breathing and has a congested cough and shortness of breath and chest tightness and wheezing. The patient has a gated Covid 19 testing. White cell count of 10.4. Electrolytes are all within normal limits. The BUN is at 21 with a creatinine of 0.9. In terms of medication, the patient is covered with DuoNeb nebulized treatments around the clock and he remains on IV Solu- Medrol and IV Zosyn as an empiric antibiotic coverage. The microbiology from his sputum culture has been negative. The plan is to proceed with a bronchoscopy and the BAL and the patient is on long-term anticoagulation with Eliquis. 01/15 2021, the patient is post bronchoscopy. Immediately after the bronchoscopy, she felt better and subsequently some of the congestion is back. The culture are still negative for now. She remains on IV Solu-Medrol. She remains on IV Zosyn. Awaiting final cultures and she remains on Eliqui No other new complaints otherwise for now. The patient is seen today 01/16/2021 in follow-up on the regular medical floor. She is currently resting quite comfortably in bed. Awake and alert in no acute distress. Breathing is nearly back to her baseline. Still with some mild dyspnea on exertion. Maintaining O2 saturations in the 90s on 3 L/m per nasal cannula. Bronchoscopy cultures pending. White count 10.9. Hemoglobin 11.4. Sodium 141. Potassium 4.3. Creatinine 0.8. She is continued on DuoNeb inhalations, Pulmicort and Perforomist inhalations, IV Solu-Medrol, Singulair. Antibiotics in the form of Zosyn. Anticoagulated with Eliquis. Objective - Vital Signs Vital signs: Vital Signs Temp 97.8 F 01/16/21 07:00 Pulse 74 01/16/21 07:50 Resp 16 01/16/21 07:00 BP 161/79 01/16/21 07:00 Pulse Ox 97 01/16/21 07:00 Intake & Output 01/15/21 01/16/21 01/16/21 18:59 06:59 18:59 Intake Total 400 Output Total 1 2 Balance -1 398 Weight 86.183 kg Intake: Oral 400 Output: Stool 1 2 Other: Voiding Method Bedside Commode Bedside Commode # Voids 1 3 # Bowel Movements 1 - Exam GENERAL EXAM: Alert, pleasant 65-year-old female patient, on 3 L nasal cannula, comfortable in no apparent distress. HEAD: Normocephalic. EYES: Normal reaction of pupils, equal size. NOSE: Clear with pink turbinates. THROAT: No erythema or exudates. NECK: No masses, no JVD. CHEST: No chest wall deformity. LUNGS: Equal air entry with faint end expiratory wheeze, diminished CVS: S1 and S2 normal with no audible murmur, regular rhythm. ABDOMEN: No hepatosplenomegaly, normal bowel sounds, no guarding or rigidity. SPINE: No scoliosis or deformity SKIN: No rashes CENTRAL NERVOUS SYSTEM: No focal deficits, tone is normal in all 4 extremities. EXTREMITIES: There is no peripheral edema. No clubbing, no cyanosis. Peripheral pulses are intact. - Labs CBC & Chem 7: 01/16/21 06:01 01/16/21 06:01 Labs: Abnormal Lab Results - Last 24 Hours (Table) 01/16/21 01/16/21 Range/Units 06:01 06:01 WBC 10.90 H (4.50-10.00) X 10*3/uL Hgb 11.4 L (12.0-15.0) g/dL MCHC 30.3 L (32.0-37.0) g/dL RDW 15.4 H (11.5-14.5) % Immature Gran # 0.17 H (0.00-0.04) X 10*3/uL Neutrophils # 9.68 H (1.80-7.70) X 10*3/uL Lymphocytes # 0.29 L (0.90-5.00) X 10*3/uL Eosinophils # 0 L (0.04-0.35) X 10*3/uL BUN/Creatinine Ratio 30.00 H (12.00-20.00) Ratio Glucose 153 H (70-110) mg/dL Microbiology - Last 24 Hours (Table) 01/14/21 12:51 Acid Fast Bacilli Smear - Final Bronchial Washings - Left Acid Fast Bacilli Culture - Preliminary 01/14/21 12:51 Gram Stain - Preliminary Bronchial Washings - Left Bronchial Washings Culture - Preliminary Assessment and Plan Assessment: 1 COPD exacerbation, complicated by purulent tracheobronchitis/bronchopneumonia. Status post bronchoscopy with BAL, cultures pending. 2 Hyperlipidemia by history. 3 History of hypertension. 4 History of atrial fibrillation. 5 History of CVA. 6 Prior history of myocardial infarction. 7 History of osteoarthritis. 8 Chronic hypoxemic respiratory failure. 9 History of seasonal ALLERGIES. 10 Prior history of brain aneurysm, status post clipping, 2000 Plan: The patient was seen and evaluated by Dr. Artis Bronchoscopy cultures pending Improved and back to her baseline Complete a prednisone taper Complete a course of antibiotics Follow up in our office in 1-2 weeks. I, the cosigning physician, performed a history & physical examination of the patient. Lungs sounds with faint end expiratory wheeze, diminished. Maintaining good O2 saturations in the 90s on 2 L/m per nasal cannula. I discussed the assessment and plan of care with my nurse practitioner, Zoey Marks. I attest to the above note as dictated by her.
--- NOTE | 2021-01-16 12:10 | P.PN ---
Subjective Progress Note Date: 01/16/21 Patient is a pleasant the 65-year-old female with known history of COPD came in with complaints of shortness of breath, productive cough congestion, patient had a chest x-ray which is a showing possibility of bronchopneumonia and severe bronchitis. Patient is wheezing patient does use 2 L of onset at home presently on 3 L. Patient is on antibiotics for pneumonia at this time. Patient has a 40 year smoking history denied any fever chills patient and any chest pain. 01/10/2021 Patient is Seen and evaluated this morning and follow-up continues to be dyspneic with exertion with cough and congestion and expiratory wheezing noted on exam. Pulmonary following. Patient is currently maintained on breathing inhalational treatments along with IV steroids and and will continue at this time. Labs today within normal limits.. 01/11/2021 Patient is seen this morning continues to be extremely dyspneic with minimal exertion and cough with phlegm production and wheezing on exam. Pulmonary is following. Patient is maintained on breathing inhalational treatments along with IV steroids and will continue. Patient also has IV Zosyn on and will continue with this at this time. 01/12/2021 Patient is still wheezing does have oral thrush, started on nystatin, constipated started on MiraLAX complaining of sore throat ordered cepacol. 01/13/2021 Patient is still wheezing and rhonchorous, may undergo bronchoscopy tomorrow after evaluation by pulmonary. 01/14/2021 Patient is seen and evaluated this morning currently awaiting to undergo bronchoscopy with BAL with Dr. Artis today. A continues to have expiratory wheezing along with a dry cough with some phlegm production although minimal and continued shortness of breath with minimal exertion. Patient is also maintained on IV antibiotic and will continue at this time. Patient to continue with breathing inhalational treatments along with IV steroids. Will repeat a.m. labs and continue to monitor closely. 01/15/2021 Patient is seen this morning in follow-up status post bronchoscopy with BAL. No acute overnight issues noted. Patient continues to have severe expiratory wheezing noted on exam and is currently maintained on 3 L of oxygen via nasal cannula. She does use oxygen in the outpatient setting. Patient is also maintained on IV antibiotics in the form of Zosyn and will continue with IV steroids along with breathing inhalational treatments. Patient states she feels somewhat better status post bronchoscopy but continues to have dyspnea with exertion. Encourage the patient to increase activity as tolerated. Repeat labs this morning within normal limits. Continue to wean FiO2 as tolerated. 01/16/2021 Patient is seen and evaluated this morning and follow-up continues to be dyspneic with exertion although feels much better today. Continues to be wheezing upon expiration is maintained on IV steroids. Will discuss with pulmonary about weaning or transitioning to oral steroids. Currently waiting for sputum culture along with BAL analysis cultures to finalize. Patient is maintained on IV Zosyn and will continue. White blood count trending down at 10.9 and hemoglobin is stable at 11.4. Sodium is 141 with a potassium of 4.3 and current creatinine is 0.8. Review of systems: Constitutional: No reports of fatigue, fever, or chills Cardiovascular: No reports of chest pain or palpitations Respiratory: Reports continued shortness of breath and cough GI: No reports of nausea, vomiting, or diarrhea : No reports of dysuria or retention Neurovascular: No reports of weakness or numbness All medications have been reviewed Objective - Vital Signs Vital signs: Vital Signs Temp 97.8 F 01/16/21 07:00 Pulse 74 01/16/21 07:50 Resp 16 01/16/21 07:00 BP 161/79 01/16/21 07:00 Pulse Ox 97 01/16/21 07:00 Intake & Output 01/15/21 01/16/21 01/16/21 18:59 06:59 18:59 Intake Total 400 Output Total 1 2 Balance -1 398 Weight 86.183 kg Intake: Oral 400 Output: Stool 1 2 Other: Voiding Method Bedside Commode Bedside Commode # Voids 1 3 # Bowel Movements 1 - Exam GENERAL: The patient is alert and oriented x3, not in any acute distress. Well developed, well nourished. HEENT: Pupils are round and equally reacting to light. EOMI. No scleral icterus. No conjunctival pallor. Normocephalic, atraumatic. No pharyngeal erythema. No thyromegaly. CARDIOVASCULAR: S1 and S2 present. No murmurs, rubs, or gallops. PULMONARY: Patient has expiratory wheezing with bilateral diffuse rhonchi, lung sounds improved although continues with expiratory wheezing noted ABDOMEN: Soft, nontender, nondistended, normoactive bowel sounds. No palpable organomegaly. MUSCULOSKELETAL: No joint swelling or deformity. EXTREMITIES: No cyanosis, clubbing, or pedal edema. NEUROLOGICAL: Gross neurological examination did not reveal any focal deficits. SKIN: No rashes. - Labs CBC & Chem 7: 01/16/21 06:01 01/16/21 06:01 Labs: Abnormal Lab Results - Last 24 Hours (Table) 01/15/21 01/16/21 Range/Units 04:35 06:01 WBC 10.90 H (4.50-10.00) X 10*3/uL Hgb 11.4 L (12.0-15.0) g/dL MCHC 30.3 L (32.0-37.0) g/dL RDW 15.4 H (11.5-14.5) % Immature Gran # 0.17 H (0.00-0.04) X 10*3/uL Neutrophils # 9.68 H (1.80-7.70) X 10*3/uL Lymphocytes # 0.29 L (0.90-5.00) X 10*3/uL Eosinophils # 0 L (0.04-0.35) X 10*3/uL Carbon Dioxide 35.2 H (21.6-31.8) mmol/L BUN/Creatinine Ratio 27.50 H (12.00-20.00) Ratio Glucose 164 H (70-110) mg/dL Microbiology - Last 24 Hours (Table) 01/14/21 12:51 Acid Fast Bacilli Smear - Final Bronchial Washings - Left Acid Fast Bacilli Culture - Preliminary 01/14/21 12:51 Gram Stain - Preliminary Bronchial Washings - Left Bronchial Washings Culture - Preliminary Assessment and Plan Assessment: -Acute on chronic hypoxic and hypercapnic respiratory failure secondary to COPD exacerbation. patient continues systemic steroids and inhalational treatments. She is maintained on IV steroids. She is status post bronchoscopy with BAL. Pulmonary following -Tracheo-bronchitis severe or bronchopneumonia patient will be continued on IV antibiotics -Hypertension -Paroxysmal atrial fibrillation presently rate controlled patient is on anticoagulation which will be continued -History of CVA in the past without any residual weakness -Coronary artery disease -History of brain aneurysm with clipping in the past. -GI prophylaxis with Pepcid Plan: Continue with current medications, breathing inhalational treatments along with IV steroids. Pulmonary Is following. Patient underwent bronchoscopy with BAL with Dr. Artis. Patient reports improvement in breathing although continues to be dyspneic with exertion and expiratory wheezing noted on exam. Instructed the patient to increase activity as tolerated. Continue to wean FiO2 as tolerated. Repeat labs within normal limits. Fluid analysis from BAL currently still pending. IV antibiotics discontinued. Will titrate steroids down a bit and transitioned oral for discharge area Will continue to monitor closely. Anticipate discharge in 24 hours.
[2021-01-16] MEDS: HYDROcodone/APAP 5-325MG 1 EACH TAB PO PRN ×2 (14:02→20:48)
[2021-01-16] MEDS: methylPREDNISolone SOD SUCCI 40 MG/ML 1 ML VIAL IV SCH ×2 (14:07→20:48)
[2021-01-16] MEDS: ATORVASTATIN 80 MG TAB PO SCH (20:48)
[2021-01-16] MEDS: MONTELUKAST 10 MG TAB PO SCH (20:49)
[2021-01-17] MEDS: IPRATROPIUM-ALBUTEROL 3 ML NEB INHALATION PRN ×2 (00:29→03:43)
[2021-01-17] MEDS: methylPREDNISolone SOD SUCCI 40 MG/ML 1 ML VIAL IV SCH (05:54)
[2021-01-17] MEDS: FORMOTEROL FUMARATE 20 MCG/2 ML NEBU INHALATION SCH (07:17)
[2021-01-17] MEDS: BUDESONIDE 1 MG/2 ML NEBU INHALATION SCH (07:17)
[2021-01-17] MEDS: IPRATROPIUM-ALBUTEROL 3 ML NEB INHALATION SCH ×2 (07:17→11:20)
[2021-01-17 07:52] VITALS: BP 174/76; RESP 18; TEMP 98.1
[2021-01-17] MEDS: AMIODARONE 200 MG TAB PO SCH (08:32)
[2021-01-17] MEDS: NYSTATIN 100,000 UNIT/ML SUSP 500,000 UNIT/5 ML CUP PO SCH (08:32)
[2021-01-17] MEDS: lisinopriL 10 MG TAB PO SCH (08:32)
[2021-01-17] MEDS: FAMOTIDINE 20 MG TAB PO SCH (08:32)
[2021-01-17] MEDS: APIXABAN 5 MG TAB PO SCH (08:32)
--- NOTE | 2021-01-17 11:00 | P.PN ---
Subjective Progress Note Date: 01/17/21 Principal diagnosis: On 01/10/2021 patient seen in follow-up on medical floor, breathing a lot easier today, however not back to baseline, she is on room air, pulse ox is 92%, she has been afebrile, lower extremity Doppler showed no evidence of DVT in the left leg. Left knee x-ray showed no acute fracture and normal joint spaces. COVID 19 test was negative, progesterone level was negative at 0.08, electrolytes and renal profile were within normal limits, white blood cell count was 10.1, hemoglobin was 12.1. Patient remains on IV steroids 40 mg every 6 hours of Solu-Medrol, and she is on Zosyn for antibiotic coverage. Sputum culture has been sent, pending at this time On 01/11/2021 patient seen in follow-up on medical floor. Still quite wheezy and dyspneic with exertion, she's been afebrile, she remains on Symbicort, IV steroids 40 mg every 8 hours, DuoNeb, and Zosyn for empiric antibiotics, sputum culture has been sent and has shown no growth. Today's labs have been reviewed, pro-calcitonin level was negative at 0.08, she was negative for COVID 19. Progress note dated 01/12/2021. The patient continues to be quite short of breath, wheezing, and congested. She remains in the 6 N. hour. She is improved only minimally. I did mention to her, that Dr. Artis may decide to do a bronchoscopy and BAL and her next week. She currently remains on all appropriate medications including short acting beta agonist, short acting muscarinic antagonist, long-acting beta agonist, inhaled corticosteroids, systemic corticosteroids, and antibiotics. White count is 10.4, hemoglobin 12.2, hematocrit 41.1, platelet count 291,000. Sodium 144, potassium 5, chloride 104, CO2 28.1, BUN 21, and creatinine 0.9. Thus far microbiology is negative. Pro-calcitonin level was 0.08. Progress note dated 01/13/2021. 65-year-old female seen in follow-up on the North hour. She remains in room 616. The patient is only minimally improved today. She remains on oxygen therapy. Today, we talked her about the possibility that Dr. Artis may want to do bronchoscopy and BAL. Hence, we went ahead and kept her nothing by mouth. We will let him make that decision. Again, her primary issues included shortness of breath, tightness, chest congestion, coughing, and significant wheezing. White count 10.4, he will be 12.2, hematocrit 41.1, and platelet count 291,000. Sodium, potassium, chloride, CO2, anion gap, BUN, and creatinine are all normal. The patient remains on maximal medical therapy. Microbiology thus far negative. 01/15/2000 and the patient is going to have a bronchoscopy for therapeutic airway suctioning. The patient is known to have COPD. The patient is still struggling with breathing and has a congested cough and shortness of breath and chest tightness and wheezing. The patient has a gated Covid 19 testing. White cell count of 10.4. Electrolytes are all within normal limits. The BUN is at 21 with a creatinine of 0.9. In terms of medication, the patient is covered with DuoNeb nebulized treatments around the clock and he remains on IV Solu- Medrol and IV Zosyn as an empiric antibiotic coverage. The microbiology from his sputum culture has been negative. The plan is to proceed with a bronchoscopy and the BAL and the patient is on long-term anticoagulation with Eliquis. 01/15 2021, the patient is post bronchoscopy. Immediately after the bronchoscopy, she felt better and subsequently some of the congestion is back. The culture are still negative for now. She remains on IV Solu-Medrol. She remains on IV Zosyn. Awaiting final cultures and she remains on Eliqui No other new complaints otherwise for now. The patient is seen today 01/16/2021 in follow-up on the regular medical floor. She is currently resting quite comfortably in bed. Awake and alert in no acute distress. Breathing is nearly back to her baseline. Still with some mild dyspnea on exertion. Maintaining O2 saturations in the 90s on 3 L/m per nasal cannula. Bronchoscopy cultures pending. White count 10.9. Hemoglobin 11.4. Sodium 141. Potassium 4.3. Creatinine 0.8. She is continued on DuoNeb inhalations, Pulmicort and Perforomist inhalations, IV Solu-Medrol, Singulair. Antibiotics in the form of Zosyn. Anticoagulated with Eliquis. The patient is seen today 01/17/2021 in follow-up on the regular medical floor. She is awake and alert in no acute distress. Resting comfortably in bed. She feels her breathing is nearly back to her baseline. Still somewhat bronchospastic and wheezy than 100% cleared. She is able to be up in her room without any significant shortness of breath. She is continued on Pulmicort, Perforomist, DuoNeb inhalations, IV site Medrol. Anticoagulated with Eliquis. Sputum culture reveals no growth. Bronchial wash reveals no growth. No new labs today. Objective - Vital Signs Vital signs: Vital Signs Temp 98.1 F 01/17/21 07:43 Pulse 74 01/17/21 07:43 Resp 18 01/17/21 07:43 BP 174/76 01/17/21 07:43 Pulse Ox 95 01/17/21 07:43 Intake & Output 01/16/21 01/17/21 01/17/21 18:59 06:59 18:59 Intake Total 250 Output Total 1 Balance 249 Intake: Oral 250 Output: Stool 1 Other: Voiding Method Bedside Commode Toilet # Voids 1 3 - Exam GENERAL EXAM: Alert, pleasant 65-year-old female patient, on room air, comfortable in no apparent distress. HEAD: Normocephalic. EYES: Normal reaction of pupils, equal size. NOSE: Clear with pink turbinates. THROAT: No erythema or exudates. NECK: No masses, no JVD. CHEST: No chest wall deformity. LUNGS: Equal air entry with faint end expiratory wheeze, diminished CVS: S1 and S2 normal with no audible murmur, regular rhythm. ABDOMEN: No hepatosplenomegaly, normal bowel sounds, no guarding or rigidity. SPINE: No scoliosis or deformity SKIN: No rashes CENTRAL NERVOUS SYSTEM: No focal deficits, tone is normal in all 4 extremities. EXTREMITIES: There is no peripheral edema. No clubbing, no cyanosis. Peripheral pulses are intact. - Labs CBC & Chem 7: 01/16/21 06:01 01/16/21 06:01 Labs: Microbiology - Last 24 Hours (Table) 01/14/21 12:51 Gram Stain - Final Bronchial Washings - Left Bronchial Washings Culture - Final Assessment and Plan Assessment: 1 COPD exacerbation, complicated by purulent tracheobronchitis/bronchopneumonia. Status post bronchoscopy with BAL, cultures reveal no growth. 2 Hyperlipidemia by history. 3 History of hypertension. 4 History of atrial fibrillation. 5 History of CVA. 6 Prior history of myocardial infarction. 7 History of osteoarthritis. 8 Chronic hypoxemic respiratory failure. 9 History of seasonal ALLERGIES. 10 Prior history of brain aneurysm, status post clipping, 2000 Plan: The patient was seen and evaluated by Dr. Artis Bronchoscopy cultures available no growth Improved and back to her baseline, on room air Complete a prednisone taper upon discharge Follow up in our office in 1-2 weeks. I, the cosigning physician, performed a history & physical examination of the patient. Lungs sounds with faint end expiratory wheeze, diminished. Maintaining good O2 saturations in the 90s on room air. I discussed the assessment and plan of care with my nurse practitioner, Zoey Marks. I attest to the above note as dictated by her.
[2021-01-17 11:26] VITALS: PULSE 80
--- NOTE | 2021-01-17 16:35 | P.DS ---
Providers Date of admission: 01/08/21 20:54 Expected date of discharge: 01/17/21 Attending physician: Jose Flores MD Consults: 01/08/21 21:02 Consult Physician Urgent Consulting Provider: Maciel Winn Reason/Comments: pneumonia Do you want consulting provider notified?: Yes Primary care physician: Marino David [facility] Course: Final Diagnosis -Acute on chronic hypoxic and hypercapnic respiratory failure secondary to COPD exacerbation -Tracheo-bronchitis severe or bronchopneumonia -Hypertension -Paroxysmal atrial fibrillation presently rate controlled -History of CVA in the past without any residual weakness -Coronary artery disease -History of brain aneurysm with clipping in the past. -GI prophylaxis Discharge disposition Patient is being discharged in a stable condition with guarded prognosis to home and will have home care services in the outpatient setting. Patient will follow-up with Dr. Pichardo in the outpatient setting upon discharge. Patient is also to follow-up with pulmonary in the outpatient setting. Patient will continue on oral Augmentin twice daily for the next 5 days along with a prednisone taper to complete the course. Total time taken is greater than 35 minutes. Hospital course This is a 65-year-old female who was recently admitted with increasing shortness of breath, productive cough, congestion and underwent chest x-ray showing possibility of bronchopneumonia and severe bronchitis. Patient does have a history of COPD and currently does use 2-3 L of oxygen in the outpatient setting. She was started on IV antibiotics in the form of Zosyn and was slow to respond. Patient was also maintained on broncho-dilators along with IV steroids and pulmonary was following closely. Patient underwent bronchoscopy with BAL and fluid analysis cultures pending. No growth to date. 01/17/2021 Patient is seen and evaluated in follow-up this morning with no acute overnight issues. She feels she is back to her baseline although continues to have wheezing and cough but feels much better status post bronchoscopy with BAL. Cultures preliminary have been negative and patient will continue on oral Augmentin twice daily for the next 5 days to complete the course. Patient will also continue with the prednisone taper upon discharge. Patient instructed to follow-up with pulmonary in the outpatient setting along with her primary care provider. Currently no reports of chest pain, worsening shortness of breath, or palpitations. Patient is afebrile. No reports of nausea or vomiting and patient is tolerating diet. Patient will be discharged home today. On exam vital signs are stable. Cardio S1, S2 are muffled. Respiratory system shows diminished breath sounds at the bases with no wheezing or rhonchi noted. Abdomen is soft and nontender. Nervous system shows no focal deficits. Please refer to medication reconciliation sheet for a list of medications. Patient Condition at Discharge: Stable Plan - Discharge Summary New Discharge Prescriptions: New Amoxic-Pot Clav 875-125Mg [Augmentin 875-125] 1 tab PO Q12HR 5 Days #10 tab Benzocaine/Menthol Lozeng [Cepacol lozenge] 1 each MUCOUS MEM Q4HR PRN #12 lozenge PRN Reason: Sore Throat predniSONE 10 mg PO DIRECTED #30 tab Ipratropium-Albuterol Nebulize [Duoneb 0.5 mg-3 mg/3 ml Soln] 3 ml INHALATION RT-QID 30 Days #120 ml Ipratropium-Albuterol Nebulize [Duoneb 0.5 mg-3 mg/3 ml Soln] 3 ml INHALATION RT-Q4H PRN ml PRN Reason: Shortness Of Breath Or Wheezing Nystatin 100,000 Unit/ml Susp [Mycostatin Oral Susp] 500,000 unit PO QID 7 Days #140 ml Continue Amiodarone [Cordarone] 200 mg PO BID 30 Days #60 tab Apixaban [Eliquis] 5 mg PO BID 30 Days #60 tab Montelukast [Singulair] 10 mg PO HS 30 Days #30 tab Famotidine [Pepcid] 20 mg PO BID lisinopriL [Zestril] 5 mg PO DAILY Tiotropium [place] [Spiriva] 1 cap INHALATION RT-DAILY Atorvastatin [Lipitor] 80 mg PO HS Budesonide-Formot 160-4.5 Mcg [Symbicort 160-4.5 Mcg Inhaler] 2 puff INHALATION RT-BID Albuterol Nebulized [Ventolin Nebulized] 2.5 mg INHALATION Q6H PRN PRN Reason: Shortness Of Breath Discharge Medication List Amiodarone [Cordarone] 200 mg PO BID 30 Days #60 tab 06/12/20 [Rx] Apixaban [Eliquis] 5 mg PO BID 30 Days #60 tab 06/12/20 [Rx] Montelukast [Singulair] 10 mg PO HS 30 Days #30 tab 06/12/20 [Rx] Famotidine [Pepcid] 20 mg PO BID 08/04/20 [History] Atorvastatin [Lipitor] 80 mg PO HS 11/10/20 [History] Budesonide-Formot 160-4.5 Mcg [Symbicort 160-4.5 Mcg Inhaler] 2 puff INHALATION RT-BID 11/10/20 [History] Tiotropium [place] [Spiriva] 1 cap INHALATION RT-DAILY 11/10/20 [History] lisinopriL [Zestril] 5 mg PO DAILY 11/10/20 [History] Albuterol Nebulized [Ventolin Nebulized] 2.5 mg INHALATION Q6H PRN 01/08/21 [History] Amoxic-Pot Clav 875-125Mg [Augmentin 875-125] 1 tab PO Q12HR 5 Days #10 tab 01/17/21 [Rx] Benzocaine/Menthol Lozeng [Cepacol lozenge] 1 each MUCOUS MEM Q4HR PRN #12 lozenge 01/17/21 [Rx] Ipratropium-Albuterol Nebulize [Duoneb 0.5 mg-3 mg/3 ml Soln] 3 ml INHALATION RT-Q4H PRN ml 01/17/21 [Rx] Ipratropium-Albuterol Nebulize [Duoneb 0.5 mg-3 mg/3 ml Soln] 3 ml INHALATION RT-QID 30 Days #120 ml 01/17/21 [Rx] Nystatin 100,000 Unit/ml Susp [Mycostatin Oral Susp] 500,000 unit PO QID 7 Days #140 ml 01/17/21 [Rx] predniSONE 10 mg PO DIRECTED #30 tab 01/17/21 [Rx] Follow up Appointment(s)/Referral(s): Frankie Pichardo MD [Primary Care Provider] - 1-2 days [facility], [NON-STAFF] - 1-2 Days Uma Artis MD [Family Provider] - 1 Week Patient Instructions/Handouts: COPD (Chronic Obstructive Pulmonary Disease) (GEN) Activity/Diet/Wound Care/Special Instructions: Activity Limited until follow-up Follow-up with primary care provider upon discharge Continue current diet Continue with prednisone taper Continue with antibiotics until finished Follow-up with pulminary in the outpatient setting in 1-2 weeks Discharge Disposition: HOME WITH HOME HEALTH SERVICES
== END 2021-01-17 14:13 | disposition home health service (06) | DRG 193 ==
LOC: EC 17:28 → 4SSUR 20:54 → 6NMEDSUR 01-09 00:26
PROVIDERS: ADMIT Internal Medicine; ATTEND Internal Medicine
PROC: 0BJ08ZZ Inspection of Tracheobronchial Tree, Via Natural or Artificial Opening Endoscopic (ICD-10-PCS; principal; 2021-01-14 09:45)
PROC: 0B948ZZ Drainage of Right Upper Lobe Bronchus, Via Natural or Artificial Opening Endoscopic (ICD-10-PCS; principal; 2021-01-14 09:45)
DX: J18.0 Bronchopneumonia, unspecified organism (principal); J96.21 Acute and chronic respiratory failure with hypoxia; J96.22 Acute and chronic respiratory failure with hypercapnia; B37.0 Candidal stomatitis; J44.0 Chronic obstructive pulmonary disease with (acute) lower respiratory infection; J44.1 Chronic obstructive pulmonary disease with (acute) exacerbation; T17.890A Other foreign object in other parts of respiratory tract causing asphyxiation, initial encounter; I10 Essential (primary) hypertension; E78.5 Hyperlipidemia, unspecified; F32.9 Major depressive disorder, single episode, unspecified; F41.9 Anxiety disorder, unspecified; I25.10 Atherosclerotic heart disease of native coronary artery without angina pectoris; I25.2 Old myocardial infarction; I48.0 Paroxysmal atrial fibrillation; J98.09 Other diseases of bronchus, not elsewhere classified; K59.00 Constipation, unspecified; M41.9 Scoliosis, unspecified; G89.29 Other chronic pain; Z20.822 Contact with and (suspected) exposure to COVID-19; Z79.01 Long term (current) use of anticoagulants; Z79.51 Long term (current) use of inhaled steroids; Z79.52 Long term (current) use of systemic steroids; Z79.899 Other long term (current) drug therapy; Z82.49 Family history of ischemic heart disease and other diseases of the circulatory system; Z83.3 Family history of diabetes mellitus; Z86.73 Personal history of transient ischemic attack (TIA), and cerebral infarction without residual deficits; Z87.891 Personal history of nicotine dependence; Z88.6 Allergy status to analgesic agent; Z88.1 Allergy status to other antibiotic agents; Z88.2 Allergy status to sulfonamides; Z98.51 Tubal ligation status; I45.10 Unspecified right bundle-branch block; M15.9 Polyosteoarthritis, unspecified; Z86.79 Personal history of other diseases of the circulatory system; J45.909 Unspecified asthma, uncomplicated; Z99.81 Dependence on supplemental oxygen
CPT/HCPCS: 31624; 36415; 71046; 80048; 80053; 83605; 83735; 83880; 84145; 84484; 85025; 85027; 85610; 85730; 87070; 87102; 87116; 87205; 87206; 87252; 87496; 87498; 87502; 87529; 87634; 87635; 87798; 93005; 94640; 94760; 99285

== ENCOUNTER 2021-01-30 12:43 | Inpatient (IN) | payer OTHER ==
[2021-01-30] MEDS ORDERED: SODIUM CHLORIDE 0.9% 500 ML 500 ML IV STA (13:00)
[2021-01-30] MEDS ORDERED: ACETAMINOPHEN TAB 325 MG TAB PO STA (13:00)
--- NOTE | 2021-01-30 13:10 | ED ---
General Adult HPI - General Source: patient, EMS, RN notes reviewed, old records reviewed Mode of arrival: EMS Limitations: no limitations <Maciel Cabrera - Last Filed: 01/30/21 14:07> <Gail oDshi - Last Filed: 01/30/21 17:42> - General Chief complaint: Weakness Stated complaint: weakness Time Seen by Provider: 01/30/21 12:49 - History of Present Illness Initial comments: 55-year-old female history of COPD, recent admission for pneumonia presenting with generalized weakness, fatigue, and diarrhea. Patient states her breathing is at baseline. No worsening cough or dyspnea. She does report fever and chills. No vomiting. She's had diffuse watery diarrhea. And has had exposure to recent antibiotics. She has not had coronavirus and has not been vaccinated. (Maciel Cabrera) - Related Data Home Medications Medication Instructions Recorded Confirmed Famotidine [Pepcid] 20 mg PO BID 08/04/20 01/30/21 Atorvastatin [Lipitor] 80 mg PO HS 11/10/20 01/30/21 Budesonide-Formot 160-4.5 Mcg 2 puff INHALATION RT-BID 11/10/20 01/30/21 [Symbicort 160-4.5 Mcg Inhaler] Tiotropium [place] [Spiriva] 1 cap INHALATION RT-DAILY 11/10/20 01/30/21 lisinopriL [Zestril] 5 mg PO DAILY 11/10/20 01/30/21 Albuterol Nebulized [Ventolin 2.5 mg INHALATION RT-QID PRN 01/08/21 01/30/21 Nebulized] Benzocaine/Menthol Lozeng [Cepacol 1 lozenge MUCOUS MEM Q4HR PRN 01/30/21 01/30/21 lozenge] predniSONE See Taper PO DIRECTED 01/30/21 01/30/21 Previous Rx's Medication Instructions Recorded Amiodarone [Cordarone] 200 mg PO BID 30 Days #60 tab 06/12/20 Apixaban [Eliquis] 5 mg PO BID 30 Days #60 tab 06/12/20 Montelukast [Singulair] 10 mg PO HS 30 Days #30 tab 06/12/20 Ipratropium-Albuterol Nebulize 3 ml INHALATION RT-Q4H PRN ml 01/17/21 [Duoneb 0.5 mg-3 mg/3 ml Soln] Ipratropium-Albuterol Nebulize 3 ml INHALATION RT-QID 30 Days 01/17/21 [Duoneb 0.5 mg-3 mg/3 ml Soln] #120 ml Allergies Allergy/AdvReac Type Severity Reaction Status Date / Time naproxen [From Naprosyn] Allergy Anaphylaxis Verified 01/30/21 14:42 Sulfa (Sulfonamide Allergy Anaphylaxis Verified 01/30/21 14:42 Antibiotics) azithromycin [From Zithromax] AdvReac does not Verified 01/30/21 14:42 take due to A-Fib Review of Systems ROS Other: All systems not noted in ROS Statement are negative. <Maciel Cabrera - Last Filed: 01/30/21 14:07> ROS Other: All systems not noted in ROS Statement are negative. <Gail Doshi - Last Filed: 01/30/21 17:42> ROS Statement: Those systems with pertinent positive or pertinent negative responses have been documented in the HPI. Past Medical History Past Medical History: Atrial Fibrillation, Asthma, COPD, CVA/TIA, Myocardial Infarction ([place]), Osteoarthritis ([place]) Additional Past Medical History / Comment(s): Brain aneurysum that is clipped 2001 HF, home oxygen at 2L/NC ATC, arthritis in several joints, chronic low back pain which involves L leg-numbness/tingling, scoliosis, seasonal allergies. Last Myocardial Infarction Date:: 10/19/2019 History of Any Multi-Drug Resistant Organisms: None Reported Past Surgical History: Orthopedic Surgery, Tubal Ligation Additional Past Surgical History / Comment(s): Brain aneurysum that is clipped, left shoulder rotator cuff repair, spine lumbar disc 3x fused Past Anesthesia/Blood Transfusion Reactions: No Reported Reaction Past Psychological History: Anxiety, Depression Smoking Status: Former smoker Past Alcohol Use History: None Reported Past Drug Use History: None Reported - Past Family History Father Family Medical History: Coronary Artery Disease (CAD), Diabetes Mellitus Additional Family Medical History / Comment(s): Father had 3 vessel CABG. He at the age of 69 from heart disease. Mother Family Medical History: Myocardial Infarction ([place]) Additional Family Medical History / Comment(s): Mother of a [place] at the age of 42 yrs. <Maciel Cabrera Lobo - Last Filed: 01/30/21 14:07> General Exam Limitations: no limitations General appearance: alert, in no apparent distress Head exam: Present: atraumatic, normocephalic Eye exam: Present: normal appearance, PERRL ENT exam: Present: mucous membranes dry Neck exam: Present: normal inspection. Absent: tenderness, meningismus Respiratory exam: Present: decreased breath sounds. Absent: respiratory distress, wheezes Cardiovascular Exam: Present: regular rate, normal rhythm GI/Abdominal exam: Present: soft. Absent: distended, tenderness, guarding, rebound Extremities exam: Present: normal inspection, normal capillary refill. Absent: pedal edema Neurological exam: Present: alert, oriented X3, CN II-XII intact. Absent: motor sensory deficit Psychiatric exam: Present: normal affect, normal mood Skin exam: Present: warm, dry, intact. Absent: cyanosis, diaphoretic <Maciel Cabrera Lobo - Last Filed: 01/30/21 14:07> Course Vital Signs 01/30/21 01/30/21 12:47 15:16 Temperature 100.2 F H Pulse Rate 105 H 112 H Respiratory 18 18 Rate Blood Pressure 94/60 95/62 O2 Sat by Pulse 97 97 Oximetry EKG Findings - EKG Comments: EKG Findings:: EKG: Sinus tachycardia very poor quality EKG with baseline artif act, QRS is narrow at 76, ventricular rate of 110. CA interval 176, QTC may be prolonged 550. There is no perceived ST segment elevation although this is a very poor quality EKG. <PaveltanyaMaciel Lobo - Last Filed: 01/30/21 14:07> Medical Decision Making - Lab Data Result diagrams: 01/30/21 13:35 01/30/21 13:35 <Gail Doshi - Last Filed: 01/30/21 17:42> - Medical Decision Making She care was signed out to me pending gallbladder ultrasound with the plan for admission Patient is COVID positive her gallbladder and liver ultrasound a relatively unremarkable Patient will be admitted for COVID with transaminitis Patient care was discussed with Dr. Bhatti who accepts the admission (Gail Doshi) - Lab Data Lab Results 01/30/21 01/30/21 01/30/21 Range/Units 13:35 13:35 13:35 WBC 5.4 (3.8-10.6) k/uL RBC 4.49 (3.80-5.40) m/uL Hgb 12.7 (11.4-16.0) gm/dL Hct 37.5 (34.0-46.0) % MCV 83.4 (80.0-100.0) fL MCH 28.2 (25.0-35.0) pg MCHC 33.8 (31.0-37.0) g/dL RDW 15.5 (11.5-15.5) % Plt Count 60 L D (150-450) k/uL MPV 8.9 Neutrophils % 91 % Lymphocytes % 6 % Monocytes % 2 % Eosinophils % 0 % Basophils % 0 % Neutrophils # 4.9 (1.3-7.7) k/uL Lymphocytes # 0.3 L (1.0-4.8) k/uL Monocytes # 0.1 (0-1.0) k/uL Eosinophils # 0.0 (0-0.7) k/uL Basophils # 0.0 (0-0.2) k/uL Manual Slide Review Performed Poikilocytosis (manual Present Anisocytosis (manual) Present PT 11.8 (9.0-12.0) sec INR 1.1 (<1.2) APTT 25.1 (22.0-30.0) sec Sodium 135 L (137-145) mmol/L Potassium 3.5 (3.5-5.1) mmol/L Chloride 103 (98-107) mmol/L Carbon Dioxide 27 (22-30) mmol/L Anion Gap 5 mmol/L BUN 25 H (7-17) mg/dL Creatinine 0.92 (0.52-1.04) mg/dL Est GFR (CKD-EPI)AfAm 77 (>60 ml/min/1.73 sqM) Est GFR (CKD-EPI)NonAf 67 (>60 ml/min/1.73 sqM) Glucose 95 (74-99) mg/dL Plasma Lactic Acid Jack (0.7-2.0) mmol/L Calcium 7.8 L (8.4-10.2) mg/dL Magnesium 1.9 (1.6-2.3) mg/dL Total Bilirubin 0.9 (0.2-1.3) mg/dL AST 1441 H (14-36) U/L ALT 2054 H (4-34) U/L Alkaline Phosphatase 79 (38-126) U/L Lactate Dehydrogenase (313-618) U/L Troponin I (0.000-0.034) ng/mL C-Reactive Protein (<10.0) mg/L Total Protein 4.8 L (6.3-8.2) g/dL Albumin 2.6 L (3.5-5.0) g/dL Urine Color Urine Appearance (Clear) Urine pH (5.0-8.0) Ur Specific [place] (1.001-1.035) Urine Protein (Negative) Urine Glucose (UA) (Negative) Urine Ketones (Negative) Urine Blood (Negative) Urine Nitrite (Negative) Urine Bilirubin (Negative) Urine Urobilinogen (<2.0) mg/dL Ur Leukocyte Esterase (Negative) Urine RBC (0-5) /hpf Urine WBC (0-5) /hpf Ur Squamous Epith Cells (0-4) /hpf Urine Bacteria (None) /hpf Urine Mucus (None) /hpf Acetaminophen ug/mL Coronavirus (PCR) (Not Detectd) 01/30/21 01/30/21 01/30/21 Range/Units 13:35 13:35 13:35 WBC (3.8-10.6) k/uL RBC (3.80-5.40) m/uL Hgb (11.4-16.0) gm/dL Hct (34.0-46.0) % MCV (80.0-100.0) fL MCH (25.0-35.0) pg MCHC (31.0-37.0) g/dL RDW (11.5-15.5) % Plt Count (150-450) k/uL MPV Neutrophils % % Lymphocytes % % Monocytes % % Eosinophils % % Basophils % % Neutrophils # (1.3-7.7) k/uL Lymphocytes # (1.0-4.8) k/uL Monocytes # (0-1.0) k/uL Eosinophils # (0-0.7) k/uL Basophils # (0-0.2) k/uL Manual Slide Review Poikilocytosis (manual Anisocytosis (manual) PT (9.0-12.0) sec INR (<1.2) APTT (22.0-30.0) sec Sodium (137-145) mmol/L Potassium (3.5-5.1) mmol/L Chloride (98-107) mmol/L Carbon Dioxide (22-30) mmol/L Anion Gap mmol/L BUN (7-17) mg/dL Creatinine (0.52-1.04) mg/dL Est GFR (CKD-EPI)AfAm (>60 ml/min/1.73 sqM) Est GFR (CKD-EPI)NonAf (>60 ml/min/1.73 sqM) Glucose (74-99) mg/dL Plasma Lactic Acid Jack 1.4 (0.7-2.0) mmol/L Calcium (8.4-10.2) mg/dL Magnesium (1.6-2.3) mg/dL Total Bilirubin (0.2-1.3) mg/dL AST (14-36) U/L ALT (4-34) U/L Alkaline Phosphatase (38-126) U/L Lactate Dehydrogenase 4970 H (313-618) U/L Troponin I 0.021 (0.000-0.034) ng/mL C-Reactive Protein 203.5 H (<10.0) mg/L Total Protein (6.3-8.2) g/dL Albumin (3.5-5.0) g/dL Urine Color Urine Appearance (Clear) Urine pH (5.0-8.0) Ur Specific [place] (1.001-1.035) Urine Protein (Negative) Urine Glucose (UA) (Negative) Urine Ketones (Negative) Urine Blood (Negative) Urine Nitrite (Negative) Urine Bilirubin (Negative) Urine Urobilinogen (<2.0) mg/dL Ur Leukocyte Esterase (Negative) Urine RBC (0-5) /hpf Urine WBC (0-5) /hpf Ur Squamous Epith Cells (0-4) /hpf Urine Bacteria (None) /hpf Urine Mucus (None) /hpf Acetaminophen <10.0 ug/mL Coronavirus (PCR) (Not Detectd) 01/30/21 01/30/21 Range/Units 14:31 15:36 WBC (3.8-10.6) k/uL RBC (3.80-5.40) m/uL Hgb (11.4-16.0) gm/dL Hct (34.0-46.0) % MCV (80.0-100.0) fL MCH (25.0-35.0) pg MCHC (31.0-37.0) g/dL RDW (11.5-15.5) % Plt Count (150-450) k/uL MPV Neutrophils % % Lymphocytes % % Monocytes % % Eosinophils % % Basophils % % Neutrophils # (1.3-7.7) k/uL Lymphocytes # (1.0-4.8) k/uL Monocytes # (0-1.0) k/uL Eosinophils # (0-0.7) k/uL Basophils # (0-0.2) k/uL Manual Slide Review Poikilocytosis (manual Anisocytosis (manual) PT (9.0-12.0) sec INR (<1.2) APTT (22.0-30.0) sec Sodium (137-145) mmol/L Potassium (3.5-5.1) mmol/L Chloride (98-107) mmol/L Carbon Dioxide (22-30) mmol/L Anion Gap mmol/L BUN (7-17) mg/dL Creatinine (0.52-1.04) mg/dL Est GFR (CKD-EPI)AfAm (>60 ml/min/1.73 sqM) Est GFR (CKD-EPI)NonAf (>60 ml/min/1.73 sqM) Glucose (74-99) mg/dL Plasma Lactic Acid Jack (0.7-2.0) mmol/L Calcium (8.4-10.2) mg/dL Magnesium (1.6-2.3) mg/dL Total Bilirubin (0.2-1.3) mg/dL AST (14-36) U/L ALT (4-34) U/L Alkaline Phosphatase (38-126) U/L Lactate Dehydrogenase (313-618) U/L Troponin I (0.000-0.034) ng/mL C-Reactive Protein (<10.0) mg/L Total Protein (6.3-8.2) g/dL Albumin (3.5-5.0) g/dL Urine Color Yellow Urine Appearance Cloudy H (Clear) Urine pH 6.0 (5.0-8.0) Ur Specific [place] 1.018 (1.001-1.035) Urine Protein 2+ H (Negative) Urine Glucose (UA) Negative (Negative) Urine Ketones Negative (Negative) Urine Blood Small H (Negative) Urine Nitrite Positive H (Negative) Urine Bilirubin Negative (Negative) Urine Urobilinogen <2.0 (<2.0) mg/dL Ur Leukocyte Esterase Negative (Negative) Urine RBC 1 (0-5) /hpf Urine WBC 6 H (0-5) /hpf Ur Squamous Epith Cells 13 H (0-4) /hpf Urine Bacteria Many H (None) /hpf Urine Mucus Many H (None) /hpf Acetaminophen ug/mL Coronavirus (PCR) Detected A (Not Detectd) Disposition <Maciel Cabrera N - Last Filed: 01/30/21 14:07> Is patient prescribed a controlled substance at d/c from ED?: No <Gail Doshi P - Last Filed: 01/30/21 17:42> Clinical Impression: COVID-19, Transaminitis Disposition: ADMITTED IP TO THIS HOSP Condition: Stable Referrals: Frankie Pichardo MD [Primary Care Provider] - 1-2 days
[2021-01-30 13:59] LABS: INR 1.1 (<1.2); Partial Thromboplastin Time 25.1 sec (22.0-30.0); Prothrombin Time 11.8 sec (9.0-12.0)
[2021-01-30 14:05] LABS: Albumin 2.6 g/dL (3.5-5.0); Calcium 7.8 mg/dL (8.4-10.2); Magnesium 1.9 mg/dL (1.6-2.3); Potassium 3.5 mmol/L (3.5-5.1); Total Bilirubin 0.9 mg/dL (0.2-1.3); Total Protein 4.8 g/dL (6.3-8.2)
[2021-01-30 14:18] LABS: Basophils % (A) 0 %; Eosinophils % (A) 0 %; HCT 37.5 % (34.0-46.0); HGB 12.7 gm/dL (11.4-16.0); Lymphocytes # (A) 0.3 k/uL (1.0-4.8); Lymphocytes % (A) 6 %; MCH 28.2 pg (25.0-35.0); MCHC 33.8 g/dL (31.0-37.0); MCV 83.4 fL (80.0-100.0); Mean Platelet Volume 8.9; Monocytes # (A) 0.1 k/uL (0-1.0); Monocytes % (A) 2 %; Neutrophils # (A) 4.9 k/uL (1.3-7.7); Neutrophils % (A) 91 %; RBC 4.49 m/uL (3.80-5.40); RDW 15.5 % (11.5-15.5); WBC 5.4 k/uL (3.8-10.6)
[2021-01-30] MEDS: SODIUM CHLORIDE 0.9% 1,000 ML IV STA ×2 (14:32→20:25)
--- NOTE | 2021-01-30 14:32 | XR ---
EXAMINATION TYPE: XR chest 2V DATE OF EXAM: 01/30/2021 COMPARISON: 01/08/2021 TECHNIQUE: PA and lateral views submitted. HISTORY: Fever and weakness FINDINGS: Hyperinflation. Heart size normal. Bibasilar and right perihilar areas of infiltrate. Coarsened inter stitium. No pneumothorax. Metallic density overlying the left humeral head. Tiny bilateral effusions. Degenerative change of the spine. IMPRESSION: 1. COPD correlate for interstitial pneumonitis or venous congestion with small bilateral effusion and basilar consolidation.
[2021-01-30 14:39] LABS: Platelet Count 60 k/uL (150-450)
[2021-01-30 14:40] LABS: Anisocytosis (M) Present; Poikilocytosis (M) Present
[2021-01-30] MEDS ORDERED: DEXAMETHASONE SOD PHOSPHATE 10 MG/ML 1 ML VIAL IV STA (15:17)
[2021-01-30 15:34] LABS: Acetaminophen <10.0 ug/mL
[2021-01-30 16:02] LABS: Appearance,Urine Cloudy (Clear); Bacteria,Urine Many /hpf; Bilirubin,Urine Negative (Negative); Blood,Urine Small (Negative); Color,Urine Yellow; Glucose,Urine (UA) Negative (Negative); Ketones,Urine Negative (Negative); Leukocyte Esterase,Urine Negative (Negative); Mucus,Urine Many /hpf; Nitrite,Urine Positive (Negative); Protein,Urine 2+ (Negative); RBC,Urine 1 /hpf (0-5); Specific Gravity,Urine 1.018 (1.001-1.035); Squamous Epithelial Cell,Urine 13 /hpf (0-4); Urobilinogen,Urine <2.0 mg/dL (<2.0); WBC,Urine 6 /hpf (0-5)
--- NOTE | 2021-01-30 16:29 | US ---
EXAMINATION TYPE: US gallbladder DATE OF EXAM: 01/30/2021 COMPARISON: NONE CLINICAL HISTORY: transaminitis. EXAM MEASUREMENTS: Liver Length: 17.7 cm Gallbladder Wall: 0.3 cm CBD: 0.3 cm Right Kidney: 9.4 x 4.8 x 5.5 cm Extensive overlying bowel gas, limited visualization of organs. Pancreas: Partially obscured by bowel gas, portions visualized wnl Liver: patient unable to take a deep breath, limited views appear wnl Gallbladder: cholelithiasis Evidence for sonographic Arteaga's sign:no CBD: wnl Right Kidney: limited views appear wnl IMPRESSION: 1. Hepatomegaly. 2. There appears to be sludge within the gallbladder. Gallbladder wall is at the upper limits of norm al.
[2021-01-30 16:46] LABS: C Reactive Protein 203.5 mg/L (<10.0); LDH 4970 U/L (313-618)
[2021-01-30] MEDS ORDERED: NALOXONE 0.4 MG/ML 1 ML VIAL IV PRN (17:41)
[2021-01-30] MEDS: methylPREDNISolone SOD SUCCI 125 MG/2 ML VIAL IV SCH ×2 (18:30→23:51)
[2021-01-30 19:12] LABS: African American GFR (CKD) >90 (>60 ml/min/1.73 sqM); Albumin 2.2 g/dL (3.5-5.0); Alkaline Phosphatase 71 U/L (38-126); Anion Gap 4 mmol/L; Blood Urea Nitrogen 25 mg/dL (7-17); Calcium 7.6 mg/dL (8.4-10.2); Carbon Dioxide 25 mmol/L (22-30); Chloride 106 mmol/L (98-107); Glucose 97 mg/dL (74-99); Non-African American GFR(CKD) 84 (>60 ml/min/1.73 sqM); Potassium 3.4 mmol/L (3.5-5.1); Sodium 135 mmol/L (137-145); Total Bilirubin 0.8 mg/dL (0.2-1.3); Total Protein 4.3 g/dL (6.3-8.2)
[2021-01-30 19:18] LABS: AST 1446 U/L (14-36)
[2021-01-30 19:19] LABS: ALT 1798 U/L (4-34)
--- NOTE | 2021-01-30 20:23 | HP ---
HISTORY AND PHYSICAL DATE OF SERVICE: 01/30/2021 CHIEF COMPLAINT: Shortness of breath. HISTORY OF PRESENT ILLNESS: This is a 62-year-old woman with a past medical history of atrial fibrillation, asthma, COPD, CVA, myocardial infarction, history of brain aneurysm, being followed by Dr. Pichardo and Dr. Artis in the outpatient setting was recently admitted with COPD exacerbation as well as purulent tracheobronchitis. Currently the patient has been complaining of increased shortness of breath over the past several days. Patient has some cough, fatigue and diarrhea also. The patient came to [facility]. COVID-19 was positive. The patient does not have any contact with COVID-19. Interestingly the patient's LFTs also significantly elevated, AST was 1441, ALT was 2054, and previous numbers were normal and Tylenol level was also normal. Ultrasound abdomen showed gallbladder did not show any acute abnormality. Inflammatory markers of COVID-19 are elevated. There is no history of any rigors, chills at this time. PAST MEDICAL HISTORY: COPD, history of asthma, atrial fibrillation, myocardial infarction, DJD, brain aneurysm. MEDICATIONS: Medications prior to admission home medications are prednisone, Zestril, Spiriva, Singulair, DuoNeb, Symbicort, Cepacol, Lipitor, Eliquis, Cordarone. ALLERGIES: NAPROSYN, SULFA, ZITHROMAX. FAMILY HISTORY: History of CAD, diabetes in the family. SOCIAL HISTORY: Previous history of smoking. No history of smoking or alcohol currently. REVIEW OF SYSTEMS: ENT: No diminished hearing or diminished vision. CARDIOVASCULAR: As mentioned earlier. RESPIRATORY: As mentioned earlier. GI: As mentioned earlier. : No dysuria. NERVOUS SYSTEM: No numbness or weakness. ALLERGY/IMMUNOLOGY: No asthma or hayfever. MUSCULOSKELETAL: As mentioned earlier. HEMATOLOGY: No history of anemia. ENDOCRINE: No history of diabetes or hypothyroidism. CONSTITUTIONAL: As mentioned earlier. DERMATOLOGY: Negative. RHEUMATOLOGY: Negative. PSYCHIATRY: As mentioned earlier. PHYSICAL EXAMINATION: GENERAL: Patient is alert and oriented times three. VITAL SIGNS: Pulse 112, blood pressure 94/62, respirations 18, temperature 100.2, pulse ox 97% on 3 liters. HEENT: Conjunctivae normal. NECK: No jugular venous distention. No carotid bruits. No lymph node enlargement. RESPIRATORY: Breath sounds diminished at the bases. A few scattered rhonchi and crackles. HEART: S1 and S2, muffled. ABDOMEN: Soft, no tenderness. No masses palpable. EXTREMITIES: No edema, no swelling. NERVOUS: Higher functions as mentioned earlier. Moves all four limbs. No focal motor or sensory deficits. LYMPHATICS: No lymph nodes palpable in the neck or axillae. SKIN: No rashes. JOINTS: No active deforming arthropathy. LABS: WBC 5.4, and platelets 60. Sodium 132, potassium 3.5, AST is 1441, ALT is 2054, LDH 4970. Chest x-ray which was reviewed personally by me showed COPD and interstitial pneumonia. ASSESSMENT: 1. Acute chronic obstructive pulmonary disease exacerbation with acute purulent tracheobronchitis. 2. Acute COVID-19 pneumonia with possibly acute bilateral interstitial pneumonia with acute hypoxic respiratory failure. 3. Continued fever. 4. Elevated AST, ALT possibly hepatitis possibly related to COVID-19. 5. Tachycardia. 6. History of recent bronchitis. 7. Atrial fibrillation. 8. History of asthma and chronic obstructive pulmonary disease. 9. History of myocardial infarction. 10.History of degenerative joint disease. 11.History of brain aneurysm. 12.History of tubal ligation. 13.History of anxiety, depression. 14.History of nicotine dependence. 15.FULL CODE. RECOMMENDATIONS AND DISCUSSION: In this 65-year-old woman who presented with multiple complex medical issues, we will monitor the patient closely. Continue the current medications, continue symptomatic treatment, initiate bronchodilators and IV steroids. Consult Dr. Winn and Dr. Tomlinson. The patient might be a candidate for remdesivir. Resume the home medications and Lovenox. I would also check D-dimer. If the D-dimer is positive, I would also recommend a CT angio of the chest. Prognosis guarded because of multiple complex medical issues. Further recommendations to follow. The LFTs are also elevated, which could be related to COVID-19. We will continue to monitor. Prognosis guarded because of multiple complex medical issues. Further recommendations to follow. A copy of this dictation will be forwarded to Dr. Pichardo who is the primary physician. MMODL / IJN: [id number] /
[2021-01-30] MEDS: AMIODARONE 200 MG TAB PO SCH (21:33)
[2021-01-30] MEDS: MONTELUKAST 10 MG TAB PO SCH (21:33)
[2021-01-30] MEDS: ATORVASTATIN 80 MG TAB PO SCH (21:33)
[2021-01-30] MEDS: APIXABAN 5 MG TAB PO SCH (21:33)
[2021-01-30] MEDS: ALBUTEROL HFA INHALER INHALATION SCH (22:27)
[2021-01-30] MEDS: SYMBICORT 160-4.5 MCG INHALER INHALATION SCH (22:27)
[2021-01-31] MEDS: ALBUTEROL HFA INHALER INHALATION SCH ×5 (01:27→19:31)
[2021-01-31 05:07] LABS: Hepatitis A Antibody IgM Non-Reactive (Non-Reactive); Hepatitis B Core IgM Non-Reactive (Non-Reactive); Hepatitis B Surface Antigen Non-Reactive (Non-Reactive); Hepatitis C IgG Antibody Non-Reactive (Non-Reactive)
[2021-01-31] MEDS: SODIUM CHLORIDE 0.9% 1,000 ML IV STA (05:29)
[2021-01-31] MEDS: methylPREDNISolone SOD SUCCI 125 MG/2 ML VIAL IV SCH (05:30)
[2021-01-31] MEDS: SYMBICORT 160-4.5 MCG INHALER INHALATION SCH ×2 (08:40→19:31)
--- NOTE | 2021-01-31 08:48 | CT ---
EXAMINATION TYPE: CT angio chest DATE OF EXAM: 01/31/2021 COMPARISON: Radiograph 01/30/2021 HISTORY: 65-year-old female shortness of breath, Positive D-dimer TECHNIQUE: Contiguous axial scanning of the chest performed with IV Contrast, patient injected with 1 00 ml mL of Isovue 370. Coronal/sagittal MIP reconstructions performed. CT DLP: 331.7 mGycm Automated exposure control for dose reduction was used. FINDINGS: Heart normal size without pericardial effusion. No flattening of the interventricular septum or reflu x of contrast into the hepatic veins. Scattered three-vessel coronary artery calcifications are prese nt. Ectatic aortic root at 3.7 cm. Mild atherosclerotic arch calcifications with conventional branching a natomy. There may be mild episodic narrowing at the origin of the left common carotid artery. While there is satisfactory opacification of the pulmonary arterial system, there is diffuse breathin g motion artifact. No large central or lobar branch pulmonary embolus. Many of the segmental and more distal arterial branches are nondiagnostic due to the motion and emboli in these locations cannot be excluded on the basis of this exam. Mildly enlarged 1.2 cm low right paratracheal lymph node and borderline sized 1.0 cm right paratrache al lymph node, likely reactive. Moderate centrilobular emphysema. Patchy and confluent groundglass changes bilaterally. There is trac e pleural effusions with prominent dependent consolidation or atelectasis. Small hiatal hernia. Prominent breathing motion in the upper abdomen as well. Bones: No osseous destructive process. IMPRESSION: 1. BREATHING MOTION DEGRADING THE EXAM. NO LARGE CENTRAL OR LOBAR BRANCH PULMONARY EMBOLUS. MANY OF T HE SEGMENTAL AND MORE DISTAL ARTERIAL BRANCHES ARE NONDIAGNOSTIC AND EMBOLI IN THESE LOCATIONS CANNOT BE EXCLUDED ON THE BASIS OF THIS EXAM. 2. MULTIFOCAL BILATERAL PATCHY AND CONFLUENT GROUNDGLASS OPACITIES ON A BACKGROUND OF MODERATE COPD. TRACE PLEURAL EFFUSIONS. CORRELATE FOR PATCHY PULMONARY EDEMA VERSUS ATYPICAL PNEUMONIA. 3. PROMINENT OPACITIES ADJACENT TO THE PLEURAL EFFUSIONS. ATELECTASIS IS FAVORED. 4. SMALL HIATAL HERNIA.
[2021-01-31] MEDS: AMIODARONE 200 MG TAB PO SCH ×2 (09:00→22:04)
[2021-01-31] MEDS: APIXABAN 5 MG TAB PO SCH ×2 (09:00→22:04)
[2021-01-31] MEDS: PANTOPRAZOLE 40 MG/10 ML VIAL IVP SCH (09:00)
[2021-01-31] MEDS: lisinopriL 5 MG TAB PO SCH (09:00)
[2021-01-31 09:07] LABS: Amylase 43 U/L (30-110); Lipase 53 U/L (23-300)
[2021-01-31] MEDS ORDERED: POTASSIUM CHLORIDE ER 20 MEQ TAB.ER PO STA (10:03)
[2021-01-31 10:20] LABS: Basophils # (A) 0 X 10*3/uL (0.00-0.10); Basophils % (A) 0 %; Eosinophils # (A) 0 X 10*3/uL (0.04-0.35); Eosinophils % (A) 0 %; HGB 11.3 g/dL (12.0-15.0); Lymphocytes # (A) 0.17 X 10*3/uL (0.90-5.00); Lymphocytes % (A) 3.8 %; MCH 27.2 pg (27.0-32.0); MCHC 30.5 g/dL (32.0-37.0); MCV 88.9 fL (80.0-97.0); Mean Platelet Volume 11.4 fL (9.5-12.2); Monocytes # (A) 0.08 X 10*3/uL (0.20-1.00); Monocytes % (A) 1.8 %; Neutrophils % (A) 93.7 %; Platelet Count 84 X 10*3/uL (140-440); RBC 4.16 X 10*6/uL (4.10-5.20); RDW 16.4 % (11.5-14.5); WBC 4.48 X 10*3/uL (4.50-10.00)
[2021-01-31 10:21] LABS: Acanthocytes 2+
[2021-01-31] MEDS: dexAMETHasone 2 MG TAB PO SCH (10:37)
[2021-01-31] MEDS ORDERED: traMADol 50 MG TAB PO STA (10:51)
--- NOTE | 2021-01-31 13:18 | P.CNPUL ---
History of Present Illness Consult date: 01/31/21 Requesting physician: Maciel Cabrera Reason for consult: dyspnea Chief complaint: Weakness, chest discomfort, diarrhea History of present illness: 65-year-old white female patient who is familiar to our service from her previous history of hospitalizations for complications related to her underlying history of COPD stage III, on home oxygen. She follows with Dr. Artis in the pulmonary clinic. She is normally on 2 L of oxygen on a regular basis, patient had recent hospitalization for acute exacerbation of COPD complicated by purulent tracheal bronchitis. Her other medical history significant for hypertension, history of A. fib, previous history of CVA, VT, osteoarthritis, previous history of brain aneurysm with clipping, and previous history of smoking. She was discharged home on 01/17/2021, and was feeling well for a while, last week on she started feeling worse, denied any worsening dyspnea, she is chronically short of breath and that did not seem to get any worse, however she is feeling very weak, she developed profuse diarrhea which she states is uncontrollable, and overall she feels quite rundown. She is also having some chest discomfort in the anterior sternal area which is worse with coughing and moving around, and some abdominal tenderness in the right upper and lower quadrants, but no nausea or vomiting, abdomen is soft. Chest x-ray in the emergency department shows COPD interstitial pneumonitis small bilateral pleural effusions, and a basilar consolidation. COVID 19 PCR was positive. Admission labs showed white blood cell count 5.4, hemoglobin is 12.7, platelet count is 60, d-dimer was increased at 9.7 to the patient is on Eliquis on a regular basis for history of A. fib, CTA chest was completed, however there was breathing motion artifact, but no evidence of large central or lobar branch pulmonary embolus, many segmental and more distal arterial branches were nondiagnostic, there were multifocal bilateral patchy and confluent groundglass opacities and a trace pleural effusions. There was a small hiatal hernia. Her enzymes were significantly elevated and ultrasound of the gallbladder was completely showing hepatomegaly, and sludge within the gallbladder. Currently patient is up to 8 L of oxygen, her pulse ox is 93%, hemodynamically she stable, she is in sinus mechanism, slightly tachycardic on the monitor. Troponin was 0.021. Her inflammatory markers were significantly elevated with LDH of 4970, and CRP is 203.5. AST was 1441, and ALT was 2054, total bilirubin was 0.9, and alk phos was 79. Urinalysis was positive for 2+ protein, nitrates, many bacteria. She is on Rocephin for empiric coverage, hepatitis panel was nonreactive, Tylenol level was less than 10. Amylase and lipase were negative at 43 and 53 r espectively. Patient was started on Decadron 6 milligram daily, her Eliquis continues, and patient is on amiodarone and Lipitor. Stool for C. diff has been ordered, cultures have been sent Review of Systems All systems: negative Constitutional: Reports fatigue, Reports malaise, Reports weakness, Denies chills, Denies fever Eyes: denies blurred vision, denies pain Ears, nose, mouth and throat: Denies headache, Denies sore throat Cardiovascular: Denies chest pain, Denies shortness of breath Respiratory: Denies cough Gastrointestinal: Reports diarrhea, Denies abdominal pain, Denies nausea, Denies vomiting Genitourinary: Denies dysuria, Denies hematuria Musculoskeletal: Denies myalgias Integumentary: Denies pruritus, Denies rash Neurological: Denies numbness, Denies weakness Psychiatric: Denies anxiety, Denies depression Endocrine: Denies fatigue, Denies weight change Past Medical History Past Medical History: Atrial Fibrillation, Asthma, Coronary Artery Disease (CAD), COPD, CVA/TIA, GERD/Reflux, Hyperlipidemia, Myocardial Infarction (VT), Osteoarthritis (OA), Vascular Disorder Additional Past Medical History / Comment(s): Pt tested covid + 01/30/21 [facility] ER. Pt recently admitted to [facility] on 01/08/21 with acute on chronic respiratory failure/tracheobronchitis severe or bronchopneumonia. 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 Last Myocardial Infarction Date:: 10/19/2019 History of Any Multi-Drug Resistant Organisms: None Reported Past Surgical History: Heart Catheterization With Stent, Orthopedic Surgery, Tubal Ligation Additional Past Surgical History / Comment(s): 2019 PCI/stent R PDA, 2000 angiogram/brain aneurysum that is clipped, abdominal aortogram with R common il iac artery PTBA/stent, left shoulder rotator cuff repair, spine lumbar disc 3x fused Past Anesthesia/Blood Transfusion Reactions: No Reported Reaction Date of Last Stent Placement:: 10/19/19 Smoking Status: Former smoker - Past Family History Father Family Medical History: Coronary Artery Disease (CAD), Diabetes Mellitus Additional Family Medical History / Comment(s): Father had 3 vessel CABG. He at the age of 69 from heart disease. Mother Family Medical History: Myocardial Infarction (VT) Additional Family Medical History / Comment(s): Mother of a VT at the age of 42 yrs. Medications and Allergies Home Medications Medication Instructions Recorded Confirmed Type Amiodarone [Cordarone] 200 mg PO BID 30 Days #60 tab 06/12/20 01/30/21 Rx Apixaban [Eliquis] 5 mg PO BID 30 Days #60 tab 06/12/20 01/30/21 Rx Montelukast [Singulair] 10 mg PO HS 30 Days #30 tab 06/12/20 01/30/21 Rx Famotidine [Pepcid] 20 mg PO BID 08/04/20 01/30/21 History Atorvastatin [Lipitor] 80 mg PO HS 11/10/20 01/30/21 History Budesonide-Formot 160-4.5 Mcg 2 puff INHALATION RT-BID 11/10/20 01/30/21 History [Symbicort 160-4.5 Mcg Inhaler] Tiotropium Napoleon [Spiriva] 1 cap INHALATION RT-DAILY 11/10/20 01/30/21 History lisinopriL [Zestril] 5 mg PO DAILY 11/10/20 01/30/21 History Albuterol Nebulized [Ventolin 2.5 mg INHALATION RT-QID PRN 01/08/21 01/30/21 History Nebulized] Ipratropium-Albuterol Nebulize 3 ml INHALATION RT-Q4H PRN ml 01/17/21 01/30/21 Rx [Duoneb 0.5 mg-3 mg/3 ml Soln] Ipratropium-Albuterol Nebulize 3 ml INHALATION RT-QID 30 Days 01/17/21 01/30/21 Rx [Duoneb 0.5 mg-3 mg/3 ml Soln] #120 ml Benzocaine/Menthol Lozeng [Cepacol 1 lozenge MUCOUS MEM Q4HR PRN 01/30/21 01/30/21 History lozenge] predniSONE See Taper PO DIRECTED 01/30/21 01/30/21 History Allergies Allergy/AdvReac Type Severity Reaction Status Date / Time naproxen [From Naprosyn] Allergy Anaphylaxis Verified 01/30/21 14:42 Sulfa (Sulfonamide Allergy Anaphylaxis Verified 01/30/21 14:42 Antibiotics) azithromycin [From Zithromax] AdvReac does not Verified 01/30/21 14:42 take due to A-Fib Physical Exam Vitals: Vital Signs Temp Pulse Resp BP Pulse Ox 01/31/21 12:35 78 18 123/73 93 L 01/31/21 12:03 90 L 01/31/21 11:31 98.1 F 70 18 131/56 90 L 01/31/21 05:19 98.0 F 76 20 116/58 90 L 01/31/21 04:00 86 23 134/65 94 L 01/31/21 03:01 98.9 F 88 22 126/63 94 L 01/31/21 02:00 69 23 133/66 97 01/31/21 01:00 68 22 135/64 97 01/31/21 00:00 81 22 131/65 95 01/30/21 23:00 99.1 F 98 20 116/69 95 01/30/21 22:00 81 22 133/66 96 01/30/21 21:00 98.9 F 74 20 120/57 97 01/30/21 20:00 73 20 125/59 99 01/30/21 19:00 81 20 106/56 98 01/30/21 18:00 68 20 110/55 97 01/30/21 17:00 67 20 111/56 97 01/30/21 16:00 99.1 F 62 20 112/68 95 01/30/21 15:16 112 H 18 95/62 97 Intake and Output 01/30/21 01/31/21 01/31/21 22:59 06:59 14:59 Other: Weight 81.647 kg GENERAL EXAM: Alert, pleasant, 65-year-old white female, currently in A. fib is of oxygen, with pulse ox of 93%, comfortable in no apparent distress. HEAD: Normocephalic/atraumatic. EYES: Normal reaction of pupils, equal size. Conjunctiva pink, sclera white. NOSE: Clear with pink turbinates. THROAT: No erythema or exudates. NECK: No masses, no JVD, no thyroid enlargement, no adenopathy. CHEST: No chest wall deformity. Symmetrical expansion. LUNGS: Equal air entry with bilateral crackles CVS: Regular rate and rhythm, normal S1 and S2, no gallops, no murmurs, no rubs ABDOMEN: Soft, nontender. No hepatosplenomegaly, normal bowel sounds, no guarding or rigidity. Mild tenderness with palpation in the right upper and lower quadrant EXTREMITIES: No clubbing, no edema, no cyanosis, 2+ pulses and upper and lower extremities. MUSCULOSKELETAL: Muscle strength and tone normal. SPINE: No scoliosis or deformity SKIN: No rashes CENTRAL NERVOUS SYSTEM: Alert and oriented -3. No focal deficits, tone is normal in all 4 extremities. PSYCHIATRIC: Alert and oriented -3. Appropriate affect. Intact judgment and insight. Results - Laboratory Findings CBC and BMP: 01/31/21 05:15 01/30/21 18:49 PT/INR, D-dimer PT 11.8 sec (9.0-12.0) 01/30/21 13:35 INR 1.1 (<1.2) 01/30/21 13:35 D-Dimer 9.72 mg/L FEU (<0.60) H 01/30/21 18:49 Abnormal lab findings: Abnormal Labs 01/30/21 01/30/21 01/30/21 13:35 13:35 13:35 WBC Hgb Hct MCHC RDW Plt Count 60 L D Plt Count Comment Lymphocytes # 0.3 L Monocytes # Eosinophils # D-Dimer Sodium 135 L Potassium BUN 25 H Calcium 7.8 L AST 1441 H ALT 2054 H Lactate Dehydrogenase 4970 H C-Reactive Protein 203.5 H Total Protein 4.8 L Albumin 2.6 L Urine Appearance Urine Protein Urine Blood Urine Nitrite Urine WBC Ur Squamous Epith Cells Urine Bacteria Urine Mucus Coronavirus (PCR) 01/30/21 01/30/21 01/30/21 14:31 15:36 18:49 WBC Hgb Hct MCHC RDW Plt Count Plt Count Comment Lymphocytes # Monocytes # Eosinophils # D-Dimer 9.72 H Sodium Potassium BUN Calcium AST ALT Lactate Dehydrogenase C-Reactive Protein Total Protein Albumin Urine Appearance Cloudy H Urine Protein 2+ H Urine Blood Small H Urine Nitrite Positive H Urine WBC 6 H Ur Squamous Epith Cells 13 H Urine Bacteria Many H Urine Mucus Many H Coronavirus (PCR) Detected A 01/30/21 01/31/21 18:49 05:15 WBC 4.48 L Hgb 11.3 L Hct 37.0 L MCHC 30.5 L RDW 16.4 H Plt Count 84 L Plt Count Comment DECREASED A Lymphocytes # 0.17 L Monocytes # 0.08 L Eosinophils # 0 L D-Dimer Sodium 135 L Potassium 3.4 L BUN 25 H Calcium 7.6 L AST 1446 H ALT 1798 H Lactate Dehydrogenase C-Reactive Protein Total Protein 4.3 L Albumin 2.2 L Urine Appearance Urine Protein Urine Blood Urine Nitrite Urine WBC Ur Squamous Epith Cells Urine Bacteria Urine Mucus Coronavirus (PCR) - Diagnostic Findings Chest x-ray: report reviewed, image reviewed CT scan - chest: report reviewed, image reviewed Additional studies: Abdominal ultrasound reviewed Assessment and Plan Plan: Assessment: #1. Acute on chronic hypoxic respiratory failure related to acute COVID 19 pneumonia, patient's symptoms started last week on with 7 days of presentation, she tested positive on 01/30/2021 in the emergency department #2. Recent hospitalization for acute exacerbation of COPD, was negative for COVID 19 at that time, discharged home on 01/17/2021 #3. Elevated transaminases, possibly related to acute COVID 19 infection, lipase and amylase were negative, gallbladder ultrasound showing some sludge, gallbladder lorenzana within normal limits #4. Elevated d-dimer, patient is on Eliquis for history of A. fib, no evidence of PE on the CT chest #5. Possible urinary tract infection, send a urine culture #6. Diarrhea, rule out C. diff #7. History of COPD, stage III at baseline, with chronic hypoxic respiratory failure #8. Significantly elevated inflammatory markers related to COVID 19 #9. History of A. fib on Eliquis #10. Myocardial infarction #11. History of brain aneurysm with clippings #12. DJD Plan: Patient is a within the window for Remdesivir however her liver enzymes are significantly elevated and for that reason we will hold the Remdesivir and continue monitoring her LFTs. Although requiring more oxygen she denies dyspnea that is much worse from her baseline. We'll continue Decadron, continue Symbicort and albuterol, continue supportive treatment, continue oral anticoagulation. We'll continue to follow I performed a history & physical examination of the patient and discussed their management with my nurse practitioner, Darcy Mccartney. I reviewed the nurse practitioner's note and agree with the documented findings and plan of care. Lung sounds are positive for diminished breath sounds. The findings and the impression was discussed with the patient. I attest to the documentation by the nurse practitioner. Time with Patient: Greater than 30
--- NOTE | 2021-01-31 21:24 | P.PN ---
Subjective this is a pleasant 65 yo F with past medical history of atrial fibrillation on eliquis, coronary artery disease, COPD ON home oxygen ( 2 L/m), and f/u with , she quit smoking last august 2020, GERD, hyperlipidemia, osteoartheritis , chronic low back pain ,involving left leg numbness , scoliosis and seasonal ALLERGIES. She presents with some tachypnea, and covered with phlegm for more than 6-7 days associated with diarrhea for 3 days. No chest pain or abdominal pain. No nausea vomiting. She is hypoxemic needing a liter of oxygen via nasal cannula, she has low grade temperature of 100.2. Lap showing mild pancytopenia with WBC 4.4K, hemoglobin 11.3 and platelet 84. D-dimer is elevated 9.7, sodium 135, potassium 3.4, liver enzymes are elevated with normal total bilirubin of 0.8, AST is 1446 and ALT 1798. Amylase and lipase are normal. Urine analysis is mildly abnormal most likely due to dehydration. Sputum cultures pending EKG shows sinus tachycardia at [address]-T changes. QTC is 557. CT of the chest is negative for PE, showing emphysema and patchy ground glass appearance CT on both lungs. Gallbladder ultrasound showing gallbladder sludge and hepatomegaly, acute hepatitis panel is negative She is currently started on dexamethasone, she is already on Eliquis. She received fluids in the emergency room Review of systems CONSTITUTIONAL: No fever, no malaise, no fatigue. HEENT: No recent visual problems or hearing problems. Denied any sore throat. CARDIOVASCULAR: No orthopnea, PND, no palpitations, no syncope. PULMONARY: No chest wall tenderness no cough, no hemoptysis. GASTROINTESTINAL: No diarrhea, no nausea, no vomiting, no abdominal pain. Normoactive bowel sounds. Active Medications Generic Name Dose Route Start Last Admin Trade Name Freq PRN Reason Stop Dose Admin Albuterol Sulfate 2 puff 01/30/21 18:30 01/31/21 19:31 Albuterol Hfa Inhaler INHALATION 2 puff QID JULIANE Administration Amiodarone HCl 200 mg 01/30/21 21:00 01/31/21 09:00 Amiodarone 200 Mg Tab PO 200 mg BID JULIANE Administration Apixaban 5 mg 01/30/21 21:00 01/31/21 09:00 Apixaban 5 Mg Tab PO 5 mg BID JULIANE Administration Ascorbic Acid 500 mg 01/31/21 21:15 Ascorbic Acid 500 Mg Tab PO BID JULIANE Atorvastatin Calcium 80 mg 01/30/21 21:00 01/30/21 21:33 Atorvastatin 80 Mg Tab PO 80 mg HS [facility] [place] Administration Benzocaine/Menthol 1 each 01/30/21 18:26 Benzocaine/Menthol Lozeng 1 Each Lozenge MUCOUS MEM Q4HR PRN Sore Throat Budesonide/Formoterol Fumarate 2 puff 01/30/21 20:00 01/31/21 19:31 Symbicort 160-4.5 Mcg Inhaler INHALATION 2 puff RT-BID JULIANE Administration Cholecalciferol 50 mcg 01/31/21 21:15 Cholecalciferol 25 Mcg (1000 Iu) Tablet PO DAILY [facility] Dexamethasone 6 mg 01/31/21 10:15 01/31/21 10:37 Dexamethasone 2 Mg Tab PO 6 mg DAILY JULIANE Administration Lisinopril 5 mg 01/31/21 09:00 01/31/21 09:00 Lisinopril 5 Mg Tab PO 5 mg DAILY [facility] Administration Montelukast Sodium 10 mg 01/30/21 21:00 01/30/21 21:33 Montelukast 10 Mg Tab PO 10 mg HS [facility] Administration Naloxone HCl 0.2 mg 01/30/21 17:41 Naloxone 0.4 Mg/Ml 1 Ml Vial IV Q2M PRN Opioid Reversal Pantoprazole Sodium 40 mg 01/31/21 09:00 01/31/21 09:00 Pantoprazole 40 Mg/10 Ml Vial IVP 40 mg DAILY JULIANE Administration Zinc Sulfate 220 mg 01/31/21 21:15 Zinc Sulfate 220 Mg Cap PO DAILY [facility] Objective - Vital Signs Vital signs: Vital Signs Temp 98.1 F 01/31/21 11:31 Pulse 78 01/31/21 12:35 Resp 18 01/31/21 12:35 BP 123/73 01/31/21 12:35 Pulse Ox 93 L 01/31/21 12:35 Intake & Output 01/30/21 01/31/21 01/31/21 18:59 06:59 18:59 Weight 81.647 kg 81.647 kg - Exam GENERAL: The patient is alert and oriented x3, not in any acute distress. Well developed, well nourished. HEENT: Pupils are round and equally reacting to light. EOMI. No scleral icterus. No conjunctival pallor. Normocephalic, atraumatic. No pharyngeal erythema. No thyromegaly. CARDIOVASCULAR: S1 and S2 present. No murmurs, rubs, or gallops. PULMONARY: Chest is clear to auscultation, no wheezing or crackles. ABDOMEN: Soft, nontender, nondistended, normoactive bowel sounds. No palpable organomegaly. MUSCULOSKELETAL: No joint swelling or deformity. EXTREMITIES: No cyanosis, clubbing, or pedal edema. NEUROLOGICAL: Gross neurological examination did not reveal any focal deficits. SKIN: No rashes. no petechiae. - Labs CBC & Chem 7: 01/31/21 05:15 01/30/21 18:49 Labs: Abnormal Lab Results - Last 24 Hours (Table) 01/30/21 01/30/21 01/30/21 Range/Units 13:35 13:35 13:35 WBC (4.50-10.00) X 10*3/uL Hgb (12.0-15.0) g/dL Hct (37.2-46.3) % MCHC (32.0-37.0) g/dL RDW (11.5-14.5) % Plt Count 60 L D (150-450) k/uL Plt Count Comment Lymphocytes # 0.3 L (1.0-4.8) k/uL Monocytes # (0.20-1.00) X 10*3/uL Eosinophils # (0.04-0.35) X 10*3/uL D-Dimer (<0.60) mg/L FEU Sodium 135 L (137-145) mmol/L Potassium (3.5-5.1) mmol/L BUN 25 H (7-17) mg/dL Calcium 7.8 L (8.4-10.2) mg/dL AST 1441 H (14-36) U/L ALT 2054 H (4-34) U/L Lactate Dehydrogenase 4970 H (313-618) U/L C-Reactive Protein 203.5 H (<10.0) mg/L Total Protein 4.8 L (6.3-8.2) g/dL Albumin 2.6 L (3.5-5.0) g/dL Urine Appearance (Clear) Urine Protein (Negative) Urine Blood (Negative) Urine Nitrite (Negative) Urine WBC (0-5) /hpf Ur Squamous Epith Cells (0-4) /hpf Urine Bacteria (None) /hpf Urine Mucus (None) /hpf Coronavirus (PCR) (Not Detectd) 01/30/21 01/30/21 01/30/21 Range/Units 14:31 15:36 18:49 WBC (4.50-10.00) X 10*3/uL Hgb (12.0-15.0) g/dL Hct (37.2-46.3) % MCHC (32.0-37.0) g/dL RDW (11.5-14.5) % Plt Count (150-450) k/uL Plt Count Comment Lymphocytes # (1.0-4.8) k/uL Monocytes # (0.20-1.00) X 10*3/uL Eosinophils # (0.04-0.35) X 10*3/uL D-Dimer 9.72 H (<0.60) mg/L FEU Sodium (137-145) mmol/L Potassium (3.5-5.1) mmol/L BUN (7-17) mg/dL Calcium (8.4-10.2) mg/dL AST (14-36) U/L ALT (4-34) U/L Lactate Dehydrogenase (313-618) U/L C-Reactive Protein (<10.0) mg/L Total Protein (6.3-8.2) g/dL Albumin (3.5-5.0) g/dL Urine Appearance Cloudy H (Clear) Urine Protein 2+ H (Negative) Urine Blood Small H (Negative) Urine Nitrite Positive H (Negative) Urine WBC 6 H (0-5) /hpf Ur Squamous Epith Cells 13 H (0-4) /hpf Urine Bacteria Many H (None) /hpf Urine Mucus Many H (None) /hpf Coronavirus (PCR) Detected A (Not Detectd) 01/30/21 01/31/21 Range/Units 18:49 05:15 WBC 4.48 L (4.50-10.00) X 10*3/uL Hgb 11.3 L (12.0-15.0) g/dL Hct 37.0 L (37.2-46.3) % MCHC 30.5 L (32.0-37.0) g/dL RDW 16.4 H (11.5-14.5) % Plt Count 84 L (150-450) k/uL Plt Count Comment DECREASED A Lymphocytes # 0.17 L (1.0-4.8) k/uL Monocytes # 0.08 L (0.20-1.00) X 10*3/uL Eosinophils # 0 L (0.04-0.35) X 10*3/uL D-Dimer (<0.60) mg/L FEU Sodium 135 L (137-145) mmol/L Potassium 3.4 L (3.5-5.1) mmol/L BUN 25 H (7-17) mg/dL Calcium 7.6 L (8.4-10.2) mg/dL AST 1446 H (14-36) U/L ALT 1798 H (4-34) U/L Lactate Dehydrogenase (313-618) U/L C-Reactive Protein (<10.0) mg/L Total Protein 4.3 L (6.3-8.2) g/dL Albumin 2.2 L (3.5-5.0) g/dL Urine Appearance (Clear) Urine Protein (Negative) Urine Blood (Negative) Urine Nitrite (Negative) Urine WBC (0-5) /hpf Ur Squamous Epith Cells (0-4) /hpf Urine Bacteria (None) /hpf Urine Mucus (None) /hpf Coronavirus (PCR) (Not Detectd) Assessment and Plan Assessment: acute bilateral covid pneumonia Acute hypoxic respiratory failure secondary to above, on chronic hypoxic respiratory failure Elevated inflammatory markers Covid gastroenteritis and hepatitis Elevated d-dimer with negative CTPA for pulmonary embolism. Patient is already on Eliquis Atrial fibrillation with history of stroke, on Eliquis History of coronary artery disease COPD, not in acute exacerbation Chronic hypoxic respiratory failure on 2 L of oxygen via nasal cannula History of GERD Hyperlipidemia Osteoarthritis Chronic low back pain Plan: this is a pleasant 65 years old female who presents with Covid pneumonia and hypoxia. Continue with Eliquis and dexamethasone, start the patient on vitamin C, vitamin D and zinc. Pulmonary team evaluated the patient who decided patient is outside the window for remdesivir. Labs and medication were reviewed.. Continue same treatment. Continue with symptomatic treatment. Resume home medication. Monitor lytes and vitals. DVT and GI prophylaxis. Further recommendationsas per clinical course of the patient DVT prophylaxis: Eliquis GI Prophylaxis: Ppi PT/OT: Pending Prognosis is guarded
[2021-01-31] MEDS: ATORVASTATIN 80 MG TAB PO SCH (22:04)
[2021-01-31] MEDS: ASCORBIC ACID 500 MG TAB PO SCH (22:04)
[2021-01-31] MEDS: CHOLECALCIFEROL 25 MCG (1000 IU) TABLET PO SCH (22:04)
[2021-01-31] MEDS: ZINC SULFATE 220 MG CAP PO SCH (22:04)
[2021-01-31] MEDS: MONTELUKAST 10 MG TAB PO SCH (22:04)
[2021-01-31] MEDS: ACETAMINOPHEN TAB 325 MG TAB PO PRN (22:17)
--- NOTE | 2021-02-01 06:21 | CONS ---
CONSULTATION DATE OF SERVICE: 01/31/2021 REASON FOR CONSULTATION: COVID-19 infection. HISTORY OF PRESENT ILLNESS: The patient is a 65-year-old female with past medical history significant for COPD on home O2 2 L nasal cannula. This patient was recently admitted at this facility for COPD exacerbation and tracheobronchitis. The patient is now presenting back to the hospital with increasing shortness of breath that has been getting worse for the last one week. The patient complaining of shortness of breath on minimal exertion, even at rest. The patient also has a cough of moderate intensity with occasional sputum production. No hemoptysis. Some nausea, no vomiting. No abdominal pain. Did have some diarrhea but no blood or mucous in the stool. With these symptoms, the patient was evaluated by the ER physician. On arrival to the ER the patient did have a low- grade fever of 100.2 degrees Fahrenheit. The patient was hypoxic requiring supplemental oxygen. The patient did have a normal white count with lymphopenia. Creatinine was normal. He did have significant elevated liver enzymes. CRP was elevated. Urine was only 6 WBC, babb PCR came back positive. Hepatitis serology was negative. The patient did have a chest x-ray followed by a CT angiogram of the chest which was negative for PE, however did show multifocal bilateral patchy and ground- glass opacities. The patient has been admitted to the hospital. Infectious Disease was consulted for further management. REVIEW OF SYSTEMS: Positive points have been mentioned in HPI. Rest of systems are negative. PAST MEDICAL HISTORY: COPD on home O2, atrial fibrillation, asthma, CVA, TIA, CA, osteoarthritis, brain aneurysm. PAST SURGICAL HISTORY: Clipping of the brain aneurysm, left shoulder rotator cuff repair and spine surgery . SOCIAL HISTORY: Remote history of smoking. No drinking or drug use. FAMILY HISTORY: No pertinent findings noticed. ALLERGIES: SULFA, AZITHROMYCIN AND NAPROXEN. MEDICATIONS: Include the patient is currently on Tylenol, Ventolin, amiodarone, Eliquis, vitamin C, Lipitor, Cepacol lozenges, vitamin D3, dexamethasone, Zestril, Singulair, Narcan, Protonix, and zinc sulfate. PHYSICAL EXAMINATION: VITAL SIGNS: Blood pressure 121/72 with a pulse of 68, temperature 97.8, she is 95% on 8 L high flow oxygen. GENERAL DESCRIPTION: Patient is a middle-aged female lying in bed in no distress. No tachypnea or accessory muscles of respiration use. HEENT: Examination shows slight pallor, no scleral icterus. Oral mucous membrane is dry. NECK: Trachea central, no thyromegaly. LUNGS: Unlabored breathing, coarse breath sounds bilaterally, no wheeze. HEART: S1-S2, regular rate and rhythm. ABDOMEN: Soft, no tenderness. No guarding or rigidity. EXTREMITIES: No edema of the feet. SKIN: No rash or mass palpable. NEUROLOGICAL: Patient is awake, alert, oriented times three. Mood and affect normal. LABS: Hemoglobin is 11.3, white count 4.4, BUN of 25, creatinine 0.76, AST is 1441, ALT 2054, LDH 4970. CRP is 203. Chest x-ray, as well as CT angiogram, shows bilateral extensive ground-glass opacity. DIAGNOSTIC IMPRESSION: 1. Patient admitted to the hospital with increasing shortness of breath, cough. This patient did have fever with evidence of extensive bilateral interstitial infiltrate secondary to acute COVID-19 pneumonia in this patient who does have underlying COPD on home O2 with low pulmonary reserve. 2. Patient did have significantly elevated liver enzymes. Hepatitis panel has been negative. PLAN: 1. The patient is in therapy to continue for remdesivir, however, the patient did have significantly elevated liver enzymes that will contraindicate the use of remdesivir. 2. The patient to continue with Eliquis, dexamethasone, zinc and ascorbic acid. 3. Droplet isolation and respiratory support. 4. We will follow on clinical condition and further adjust medication if needed. Thank you for this consultation. Will follow this patient along with you. MMODL / IJN: [id number] /
[2021-02-01] MEDS: ALBUTEROL HFA INHALER INHALATION SCH ×5 (08:43→19:31)
[2021-02-01] MEDS: SYMBICORT 160-4.5 MCG INHALER INHALATION SCH ×2 (08:43→19:31)
[2021-02-01] MEDS: AMIODARONE 200 MG TAB PO SCH ×2 (08:47→21:24)
[2021-02-01] MEDS: CHOLECALCIFEROL 25 MCG (1000 IU) TABLET PO SCH (08:47)
[2021-02-01] MEDS: ZINC SULFATE 220 MG CAP PO SCH (08:47)
[2021-02-01] MEDS: ASCORBIC ACID 500 MG TAB PO SCH ×2 (08:48→21:24)
[2021-02-01] MEDS: PANTOPRAZOLE 40 MG/10 ML VIAL IVP SCH (08:48)
[2021-02-01] MEDS: lisinopriL 5 MG TAB PO SCH (08:48)
[2021-02-01] MEDS: APIXABAN 5 MG TAB PO SCH ×2 (08:48→21:25)
[2021-02-01] MEDS: dexAMETHasone 2 MG TAB PO SCH (08:48)
--- NOTE | 2021-02-01 10:31 | P.PN ---
Subjective Progress Note Date: 02/01/21 Principal diagnosis: Acute on chronic hypoxic respiratory failure secondary to acute covid 19 pneumonia and history of underlying COPD. 65-year-old white female patient who is familiar to our service from her previous history of hospitalizations for complications related to her underlying history of COPD stage III, on home oxygen. She follows with Dr. Artis in the pulmonary clinic. She is normally on 2 L of oxygen on a regular basis, patient had recent hospitalization for acute exacerbation of COPD complicated by purulent tracheal bronchitis. Her other medical history significant for hypertension, history of A. fib, previous history of CVA, CT, osteoarthritis, previous history of brain aneurysm with clipping, and previous history of smoking. She was discharged home on 01/17/2021, and was feeling well for a while, last week on she started feeling worse, denied any worsening dyspnea, she is chronically short of breath and that did not seem to get any w orse, however she is feeling very weak, she developed profuse diarrhea which she states is uncontrollable, and overall she feels quite rundown. She is also having some chest discomfort in the anterior sternal area which is worse with coughing and moving around, and some abdominal tenderness in the right upper and lower quadrants, but no nausea or vomiting, abdomen is soft. Chest x-ray in the emergency department shows COPD interstitial pneumonitis small bilateral pleural effusions, and a basilar consolidation. COVID 19 PCR was positive. Admission labs showed white blood cell count 5.4, hemoglobin is 12.7, platelet count is 60, d-dimer was increased at 9.7 to the patient is on Eliquis on a regular basis for history of A. fib, CTA chest was completed, however there was breathing motion artifact, but no evidence of large central or lobar branch pulmonary embolus, many segmental and more distal arterial branches were nondiagnostic, there were multifocal bilateral patchy and confluent groundglass opacities and a trace pleural effusions. There was a small hiatal hernia. Her enzymes were significantly elevated and ultrasound of the gallbladder was completely showing hepatomegaly, and sludge within the gallbladder. Currently patient is up to 8 L of oxygen, her pulse ox is 93%, hemodynamically she stable, she is in sinus mechanism, slightly tachycardic on the monitor. Troponin was 0.021. Her inflammatory markers were significantly elevated with LDH of 4970, and CRP is 203.5. AST was 1441, and ALT was 2054, total bilirubin was 0.9, and alk phos was 79. Urinalysis was positive for 2+ protein, nitrates, many bacteria. She is on Rocephin for empiric coverage, hepatitis panel was nonreactive, Tylenol level was less than 10. Amylase and lipase were negative at 43 and 53 re spectively. Patient was started on Decadron 6 milligram daily, her Eliquis continues, and patient is on amiodarone and Lipitor. Stool for C. diff has been ordered, cultures have been sent Reevaluated today on 02/01/21, patient seems to be doing fairly well, her O2 saturations 91% on 2 L nasal cannula. Patient was on 8 L on admission. Patient is normally on oxygen and home, she does have underlying COPD. Remains on the Covid 19 cocktail. Remains on bronchodilators. Patient did not receive REM mostly because of her liver enzymes being quite elevated. Remain elevated today but trending admitted down especially her ALT is down to 1798 from 2053 Objective - Vital Signs Vital signs: Vital Signs Temp 98.1 F 02/01/21 09:53 Pulse 75 02/01/21 09:53 Resp 16 02/01/21 09:53 BP 125/73 02/01/21 09:53 Pulse Ox 91 L 02/01/21 09:53 Intake & Output 01/31/21 02/01/21 02/01/21 18:59 06:59 18:59 Weight 81.647 kg Other: Voiding Method Bedpan # Voids 1 2 - Exam Physical Exam: Revealed a 65-year-old female in no distress. On 2 L nasal cannula. Head: Atraumatic, normocephalic. Eyes PERRLA, EOMI, nonicteric. HEENT:[Neck is supple.] [No neck masses.] [No thyromegaly.] [No JVD.] Chest: [Diminished breath sounds and crackles at the bases. Symmetrical chest expansion. Cardiac Exam: [Normal S1 and S2, no S3 gallop, no murmur.] Abdomen: [Soft, nontender, no megaly, no rebound, no guarding, normal bowel sounds.] Extremities: [No clubbing, no edema, no cyanosis.] Good pulses bilaterally. Musculoskeletal: No deformities noted limitation range of motion. Psychiatric: Normal mood affect and normal mental status examination. Skin: No rashes. Neurological Exam: [No focal neurologic deficit.] Alert and oriented 3. - Labs CBC & Chem 7: 01/31/21 05:15 01/30/21 18:49 Labs: Microbiology - Last 24 Hours (Table) 01/31/21 10:29 Gram Stain - Preliminary Sputum Sputum Culture - Preliminary 01/30/21 13:35 Blood Culture - Preliminary Blood No Growth after 24 hours 01/30/21 13:15 Blood Culture - Preliminary Blood No Growth after 24 hours Assessment and Plan Assessment: Impression: Acute on chronic hypoxic respiratory failure secondary to acute covid 19 pneumonia and underlying COPD. History of chronic hypoxic respiratory failure secondary to COPD. Patient was last admitted for her COPD couple of weeks ago, and she was discharged on 01/17/2021. Elevated transaminases secondary to Covid 19 infection Elevated d-dimer however the patient is chronically on Eliquis for atrial fibrillation. Gold stage III COPD Elevated inflammatory markers secondary to Covid 19 History of coronary artery disease and previous CT. History of brain aneurysm with clipping Degenerative joint disease. Recommendation: Continue present supportive care measures. Continue the Covid 19 cocktail. Continue oxygen and titrate accordingly. Continue bronchodilators including Symbicort and albuterol. Continue anticoagulation therapy. Continue to monitor liver enzymes daily Again the patient did not receive REM mostly because of her elevated liver enzymes. We will continue to follow. Prognosis is relatively guarded. Time with Patient: Less than 30
[2021-02-01 12:12] LABS: African American GFR (CKD) 78.9 (60.0-200.0); Albumin 2.9 g/dL (3.80-4.90); Albumin/Globulin Ratio 2.07 (1.60-3.17); Anion Gap 7.3 mmol/L (4.00-12.00); BUN/Creat Ratio 36.67 Ratio (12.00-20.00); Calcium 8.1 mg/dL (8.7-10.3); Carbon Dioxide 25.7 mmol/L (21.6-31.8); Globulin 1.4 g/dL (1.6-3.3); Total Bilirubin 0.5 mg/dL (0.2-1.2); Total Protein 4.3 g/dL (6.2-8.2)
[2021-02-01] MEDS: ACETAMINOPHEN TAB 325 MG TAB PO PRN ×2 (16:46→21:25)
[2021-02-01] MEDS: MONTELUKAST 10 MG TAB PO SCH (21:24)
[2021-02-01] MEDS: ATORVASTATIN 80 MG TAB PO SCH (21:25)
--- NOTE | 2021-02-01 21:36 | P.PN ---
Subjective this is a pleasant 65 yo F with past medical history of atrial fibrillation on eliquis, coronary artery disease, COPD ON home oxygen ( 2 L/m), and f/u with , she quit smoking last august 2020, GERD, hyperlipidemia, osteoartheritis , chronic low back pain ,involving left leg numbness , scoliosis and seasonal ALLERGIES. She presents with some tachypnea, and covered with phlegm for more than 6-7 days associated with diarrhea for 3 days. No chest pain or abdominal pain. No nausea vomiting. She is hypoxemic needing a liter of oxygen via nasal cannula, she has low grade temperature of 100.2. Lap showing mild pancytopenia with WBC 4.4K, hemoglobin 11.3 and platelet 84. D-dimer is elevated 9.7, sodium 135, potassium 3.4, liver enzymes are elevated with normal total bilirubin of 0.8, AST is 1446 and ALT 1798. Amylase and lipase are normal. Urine analysis is mildly abnormal most likely due to dehydration. Sputum cultures pending EKG shows sinus tachycardia at [address]-T changes. QTC is 557. CT of the chest is negative for PE, showing emphysema and patchy ground glass appearance CT on both lungs. Gallbladder ultrasound showing gallbladder sludge and hepatomegaly, acute hepatitis panel is negative She is currently started on dexamethasone, she is already on Eliquis. She received fluids in the emergency room 02/01/2021 Patient respiratory distress is mild. No chest pain, no cough, diarrhea stop ped. Oxygen saturation is stable on 8 L/m of oxygen via nasal cannula. showing improvement liver enzymes however they're still elevated. Patient remains on Eliquis, dexamethasone and multiple vitamins protocol with. No remdesivir due to elevated enzymes. Review of systems CONSTITUTIONAL: No fever, no malaise, no fatigue. HEENT: No recent visual problems or hearing problems. Denied any sore throat. CARDIOVASCULAR: No orthopnea, PND, no palpitations, no syncope. PULMONARY: No chest wall tenderness no cough, no hemoptysis. GASTROINTESTINAL: No diarrhea, no nausea, no vomiting, no abdominal pain. Normoactive bowel sounds. Active Medications Generic Name Dose Route Start Last Admin Trade Name Freq PRN Reason Stop Dose Admin Acetaminophen 650 mg 01/31/21 22:02 02/01/21 21:25 Acetaminophen Tab 325 Mg Tab PO 650 mg Q4HR PRN Administration Fever and/ or Pain Albuterol Sulfate 2 puff 01/30/21 18:30 02/01/21 19:31 Albuterol Hfa Inhaler INHALATION 2 puff QID JULIANE Administration Amiodarone HCl 200 mg 01/30/21 21:00 02/01/21 21:24 Amiodarone 200 Mg Tab PO 200 mg BID JULIANE Administration Apixaban 5 mg 01/30/21 21:00 02/01/21 21:25 Apixaban 5 Mg Tab PO 5 mg BID JULIANE Administration Ascorbic Acid 500 mg 01/31/21 21:15 02/01/21 21:24 Ascorbic Acid 500 Mg Tab PO 500 mg BID JULIANE Administration Atorvastatin Calcium 80 mg 01/30/21 21:00 02/01/21 21:25 Atorvastatin 80 Mg Tab PO 80 mg HS JULIANE Administration Benzocaine/Menthol 1 each 01/30/21 18:26 Benzocaine/Menthol Lozeng 1 Each Lozenge MUCOUS MEM Q4HR PRN Sore Throat Budesonide/Formoterol Fumarate 2 puff 01/30/21 20:00 02/01/21 19:31 Symbicort 160-4.5 Mcg Inhaler INHALATION 2 puff RT-BID JULIANE Administration Cholecalciferol 50 mcg 01/31/21 21:15 02/01/21 08:47 Cholecalciferol 25 Mcg (1000 Iu) Tablet PO 50 mcg DAILY JULIANE Administration Dexamethasone 6 mg 01/31/21 10:15 02/01/21 08:48 Dexamethasone 2 Mg Tab PO 6 mg DAILY JULIANE Administration Lisinopril 5 mg 01/31/21 09:00 02/01/21 08:48 Lisinopril 5 Mg Tab PO 5 mg DAILY JULIANE Administration Montelukast Sodium 10 mg 01/30/21 21:00 02/01/21 21:24 Montelukast 10 Mg Tab PO 10 mg HS JULIANE Administration Naloxone HCl 0.2 mg 01/30/21 17:41 Naloxone 0.4 Mg/Ml 1 Ml Vial IV Q2M PRN Opioid Reversal Pantoprazole Sodium 40 mg 01/31/21 09:00 02/01/21 08:48 Pantoprazole 40 Mg/10 Ml Vial IVP 40 mg DAILY JULIANE Administration Zinc Sulfate 220 mg 01/31/21 21:15 02/01/21 08:47 Zinc Sulfate 220 Mg Cap PO 220 mg DAILY JULIANE Administration Objective - Vital Signs Vital signs: Vital Signs Temp 98.2 F 02/01/21 14:30 Pulse 76 02/01/21 14:30 Resp 16 02/01/21 14:30 BP 102/48 02/01/21 14:30 Pulse Ox 90 L 02/01/21 15:50 Intake & Output 01/31/21 02/01/21 02/01/21 18:59 06:59 18:59 Weight 81.647 kg Other: Voiding Method Bedpan Bedpan # Voids 1 2 - Exam GENERAL: The patient is alert and oriented x3, not in any acute distress. Well developed, well nourished. HEENT: Pupils are round and equally reacting to light. EOMI. No scleral icterus. No conjunctival pallor. Normocephalic, atraumatic. No pharyngeal erythema. No thyromegaly. CARDIOVASCULAR: S1 and S2 present. No murmurs, rubs, or gallops. PULMONARY: Chest is clear to auscultation, no wheezing or crackles. ABDOMEN: Soft, nontender, nondistended, normoactive bowel sounds. No palpable organomegaly. MUSCULOSKELETAL: No joint swelling or deformity. EXTREMITIES: No cyanosis, clubbing, or pedal edema. NEUROLOGICAL: Gross neurological examination did not reveal any focal deficits. SKIN: No rashes. no petechiae. - Labs CBC & Chem 7: 01/31/21 05:15 02/01/21 05:13 Labs: Abnormal Lab Results - Last 24 Hours (Table) 02/01/21 Range/Units 05:13 Chloride 111 H (96-109) mmol/L BUN 33.0 H (9.0-27.0) mg/dL BUN/Creatinine Ratio 36.67 H (12.00-20.00) Ratio Glucose 139 H (70-110) mg/dL Calcium 8.1 L (8.7-10.3) mg/dL AST 758 H (13-35) U/L ALT 1534 H (8-44) U/L Total Protein 4.3 L (6.2-8.2) g/dL Albumin 2.90 L (3.80-4.90) g/dL Globulin 1.4 L (1.6-3.3) g/dL Microbiology - Last 24 Hours (Table) 01/30/21 13:15 Blood Culture - Preliminary Blood No Growth after 48 hours 01/30/21 13:35 Blood Culture - Preliminary Blood No Growth after 48 hours 01/31/21 10:29 Gram Stain - Preliminary Sputum Sputum Culture - Preliminary Assessment and Plan Assessment: acute bilateral covid pneumonia Acute hypoxic respiratory failure secondary to above, on chronic hypoxic respiratory failure Elevated inflammatory markers Covid gastroenteritis and hepatitis Elevated d-dimer with negative CTPA for pulmonary embolism. Patient is already on Eliquis Atrial fibrillation with history of stroke, on Eliquis History of coronary artery disease COPD, not in acute exacerbation Chronic hypoxic respiratory failure on 2 L of oxygen via nasal cannula History of GERD Hyperlipidemia Osteoarthritis Chronic low back pain Plan: this is a pleasant 65 years old female who presents with Covid pneumonia and hypoxia. Continue with Eliquis and dexamethasone, start the patient on vitamin C, vitamin D and zinc. Pulmonary team evaluated the patient who decided patient is outside the window for remdesivir. Labs and medication were reviewed.. Continue same treatment. Continue with symptomatic treatment. Resume home medication. Monitor lytes and vitals. DVT and GI prophylaxis. Further recommendationsas per clinical course of the patient DVT prophylaxis: Eliquis GI Prophylaxis: Ppi PT/OT: Pending Prognosis is guarded
--- NOTE | 2021-02-02 06:14 | PN ---
PROGRESS NOTE DATE OF SERVICE: 02/01/2021 REASON FOR FOLLOWUP: COVID-19 pneumonia. INTERVAL HISTORY: Patient is currently afebrile. Patient is breathing more comfortably. The patient did have a cough and is bringing up sputum. No hemoptysis. No chest pain. No abdominal pain. No diarrhea. PHYSICAL EXAMINATION: Blood pressure 117/62 with a pulse of 72, temperature 97.9. She is 96% on 8 L nasal cannula. General description is a middle-aged female up in the bed in no distress. Respiratory system: Unlabored breathing, decreased intensity of breath sounds. No wheeze. HEART: S1, S2. Regular rate and rhythm. ABDOMEN: Soft, no tenderness. LABS: Hemoglobin 9.8, white count 4.48, BUN of 33, creatinine 0.9. Liver enzymes mildly improved. IMPRESSION/PLAN: Patient with acute COVID-19 pneumonia. This patient did have elevated liver enzymes and did not qualify for remdesivir or Actemra. The patient is covered with Eliquis, dexamethasone, zinc and ascorbic acid to continue and monitor clinical course closely. Continue supportive care. MMODL / IJN: [id number] /
[2021-02-02] MEDS: ZINC SULFATE 220 MG CAP PO SCH (07:58)
[2021-02-02] MEDS: lisinopriL 5 MG TAB PO SCH (07:58)
[2021-02-02] MEDS: CHOLECALCIFEROL 25 MCG (1000 IU) TABLET PO SCH (07:58)
[2021-02-02] MEDS: AMIODARONE 200 MG TAB PO SCH ×2 (07:58→19:40)
[2021-02-02] MEDS: APIXABAN 5 MG TAB PO SCH ×2 (07:58→19:41)
[2021-02-02] MEDS: dexAMETHasone 2 MG TAB PO SCH (07:58)
[2021-02-02] MEDS: ASCORBIC ACID 500 MG TAB PO SCH ×2 (07:59→19:39)
[2021-02-02] MEDS: PANTOPRAZOLE 40 MG/10 ML VIAL IVP SCH (07:59)
[2021-02-02] MEDS: ALBUTEROL HFA INHALER INHALATION SCH ×4 (08:09→20:15)
[2021-02-02] MEDS: SYMBICORT 160-4.5 MCG INHALER INHALATION SCH ×2 (08:09→20:15)
[2021-02-02] MEDS ORDERED: methylPREDNISolone SOD SUCCI 125 MG/2 ML VIAL IV STA (10:25)
--- NOTE | 2021-02-02 12:17 | P.PN ---
Subjective Progress Note Date: 02/02/21 Principal diagnosis: Acute on chronic hypoxic respiratory failure secondary to acute covid 19 pneumonia and history of underlying COPD. 65-year-old white female patient who is familiar to our service from her previous history of hospitalizations for complications related to her underlying history of COPD stage III, on home oxygen. She follows with Dr. Artis in the pulmonary clinic. She is normally on 2 L of oxygen on a regular basis, patient had recent hospitalization for acute exacerbation of COPD complicated by purulent tracheal bronchitis. Her other medical history significant for hypertension, history of A. fib, previous history of CVA, PR, osteoarthritis, previous history of brain aneurysm with clipping, and previous history of smoking. She was discharged home on 01/17/2021, and was feeling well for a while, last week on she started feeling worse, denied any worsening dyspnea, she is chronically short of breath and that did not seem to get any w orse, however she is feeling very weak, she developed profuse diarrhea which she states is uncontrollable, and overall she feels quite rundown. She is also having some chest discomfort in the anterior sternal area which is worse with coughing and moving around, and some abdominal tenderness in the right upper and lower quadrants, but no nausea or vomiting, abdomen is soft. Chest x-ray in the emergency department shows COPD interstitial pneumonitis small bilateral pleural effusions, and a basilar consolidation. COVID 19 PCR was positive. Admission labs showed white blood cell count 5.4, hemoglobin is 12.7, platelet count is 60, d-dimer was increased at 9.7 to the patient is on Eliquis on a regular basis for history of A. fib, CTA chest was completed, however there was breathing motion artifact, but no evidence of large central or lobar branch pulmonary embolus, many segmental and more distal arterial branches were nondiagnostic, there were multifocal bilateral patchy and confluent groundglass opacities and a trace pleural effusions. There was a small hiatal hernia. Her enzymes were significantly elevated and ultrasound of the gallbladder was completely showing hepatomegaly, and sludge within the gallbladder. Currently patient is up to 8 L of oxygen, her pulse ox is 93%, hemodynamically she stable, she is in sinus mechanism, slightly tachycardic on the monitor. Troponin was 0.021. Her inflammatory markers were significantly elevated with LDH of 4970, and CRP is 203.5. AST was 1441, and ALT was 2053, total bilirubin was 0.9, and alk phos was 79. Urinalysis was positive for 2+ protein, nitrates, many bacteria. She is on Rocephin for empiric coverage, hepatitis panel was nonreactive, Tylenol level was less than 10. Amylase and lipase were negative at 43 and 53 re spectively. Patient was started on Decadron 6 milligram daily, her Eliquis continues, and patient is on amiodarone and Lipitor. Stool for C. diff has been ordered, cultures have been sent Reevaluated today on 02/01/21, patient seems to be doing fairly well, her O2 saturations 91% on 2 L nasal cannula. Patient was on 8 L on admission. Patient is normally on oxygen and home, she does have underlying COPD. Remains on the Covid 19 cocktail. Remains on bronchodilators. Patient did not receive REM mostly because of her liver enzymes being quite elevated. Remain elevated today but trending admitted down especially her ALT is down to 1798 from 2053 Patient was reevaluated today on 02/02/2021, remains on high flow oxygen, now she is on 8 L, O2 sats is ranging anywhere between 91% up to 97%. Today it is 94%. Patient looks comfortable, not in any distress. No labs were drawn today, but her labs from yesterday were reviewed, liver enzymes are improving a bit with ALT down to 1534 and AST is down to 758. Her last CT angiogram was on 01/31 which I have noted above. Objective - Vital Signs Vital signs: Vital Signs Temp 97.8 F 02/02/21 10:41 Pulse 70 02/02/21 10:41 Resp 22 02/02/21 10:41 BP 147/61 02/02/21 10:41 Pulse Ox 94 L 02/02/21 10:41 Intake & Output 02/01/21 02/02/21 02/02/21 18:59 06:59 18:59 Intake Total 120 Output Total 200 Balance -80 Intake: Oral 120 Output: Urine 200 Other: Voiding Method Bedpan Bedside Commode # Voids 2 - Exam Physical Exam: Revealed a 65-year-old female in no distress. On 8 L high flow cannula. Head: Atraumatic, normocephalic. Eyes PERRLA, EOMI, nonicteric. HEENT:[Neck is supple.] [No neck masses.] [No thyromegaly.] [No JVD.] Chest: [Diminished breath sounds and crackles at the bases. Symmetrical chest expansion. Cardiac Exam: [Normal S1 and S2, no S3 gallop, no murmur.] Abdomen: [Soft, nontender, no megaly, no rebound, no guarding, normal bowel sounds.] Extremities: [No clubbing, no edema, no cyanosis.] Good pulses bilaterally. Musculoskeletal: No deformities noted limitation range of motion. Psychiatric: Normal mood affect and normal mental status examination. Skin: No rashes. Neurological Exam: [No focal neurologic deficit.] Alert and oriented 3. - Labs CBC & Chem 7: 01/31/21 05:15 02/01/21 05:13 Labs: Microbiology - Last 24 Hours (Table) 01/31/21 10:29 Gram Stain - Final Sputum Sputum Culture - Final 01/30/21 13:15 Blood Culture - Preliminary Blood No Growth after 48 hours 01/30/21 13:35 Blood Culture - Preliminary Blood No Growth after 48 hours Assessment and Plan Assessment: Impression: Acute on chronic hypoxic respiratory failure secondary to acute covid 19 pneumonia and underlying COPD. History of chronic hypoxic respiratory failure secondary to COPD. Patient was last admitted for her COPD couple of weeks ago, and she was discharged on 01/17/2021. Elevated transaminases secondary to Covid 19 infection, beginning to improve. Elevated d-dimer however the patient is chronically on Eliquis for atrial fibrillation. Gold stage III COPD Elevated inflammatory markers secondary to Covid 19 History of coronary artery disease and previous PR. History of brain aneurysm with clipping Degenerative joint disease. Recommendation: Continue present supportive care measures. Continue the Covid 19 cocktail. Continue oxygen and titrate accordingly. Continue bronchodilators including Symbicort and albuterol. Continue anticoagulation therapy. Continue to monitor liver enzymes daily Again the patient did not receive REM mostly because of her elevated liver enzymes. We will continue to follow. Prognosis is relatively guarded. Time with Patient: Less than 30
--- NOTE | 2021-02-02 15:00 | P.PN ---
Subjective this is a pleasant 65 yo F with past medical history of atrial fibrillation on eliquis, coronary artery disease, COPD ON home oxygen ( 2 L/m), and f/u with , she quit smoking last august 2020, GERD, hyperlipidemia, osteoartheritis , chronic low back pain ,involving left leg numbness , scoliosis and seasonal ALLERGIES. She presents with some tachypnea, and covered with phlegm for more than 6-7 days associated with diarrhea for 3 days. No chest pain or abdominal pain. No nausea vomiting. She is hypoxemic needing a liter of oxygen via nasal cannula, she has low grade temperature of 100.2. Lap showing mild pancytopenia with WBC 4.4K, hemoglobin 11.3 and platelet 84. D-dimer is elevated 9.7, sodium 135, potassium 3.4, liver enzymes are elevated with normal total bilirubin of 0.8, AST is 1446 and ALT 1798. Amylase and lipase are normal. Urine analysis is mildly abnormal most likely due to dehydration. Sputum cultures pending EKG shows sinus tachycardia at [address]-T changes. QTC is 557. CT of the chest is negative for PE, showing emphysema and patchy ground glass appearance CT on both lungs. Gallbladder ultrasound showing gallbladder sludge and hepatomegaly, acute hepatitis panel is negative She is currently started on dexamethasone, she is already on Eliquis. She received fluids in the emergency room 02/01/2021 Patient respiratory distress is mild. No chest pain, no cough, diarrhea stop ped. Oxygen saturation is stable on 8 L/m of oxygen via nasal cannula. showing improvement liver enzymes however they're still elevated. Patient remains on Eliquis, dexamethasone and multiple vitamins protocol with. No remdesivir due to elevated enzymes. 02/02/2021 Patient as a level of dyspnea as yesterday. No significant cough or chest pain and her diarrhea stopped. Her oxygen requirement is the same at 8 L/m via high flow nasal cannula. No labs from today. Patient remains on dexamethasone 6 mg daily, 1 dose OF MEDROL IS ADMITTED TODAY BECAUSE SHE WAS WHEEZING IN THE MORNING. PATIENT IS KNOWN CASE OF COPD SHE IS ON HOME OXYGEN AT 2 L/M AND SHE FOLLOWS UP WITH DR. ELLIS IN THE OUTPATIENT SETTING. CHECK LABS TOMORROW INCLUDING INFLAMMATORY MARKERS Chief continue with dexamethasone, Eliquis, multiple vitamins protocol that. Objective - Vital Signs Vital signs: Vital Signs Temp 97.8 F 02/02/21 10:41 Pulse 70 02/02/21 10:41 Resp 22 02/02/21 10:41 BP 147/61 02/02/21 10:41 Pulse Ox 94 L 02/02/21 10:41 Intake & Output 02/01/21 02/02/21 02/02/21 18:59 06:59 18:59 Intake Total 120 120 Output Total 200 Balance -80 120 Intake: Oral 120 120 Output: Urine 200 Other: Voiding Method Bedpan Bedside Commode # Voids 2 - Exam GENERAL: The patient is alert and oriented x3, not in any acute distress. Well developed, well nourished. HEENT: Pupils are round and equally reacting to light. EOMI. No scleral icterus. No conjunctival pallor. Normocephalic, atraumatic. No pharyngeal erythema. No thyromegaly. CARDIOVASCULAR: S1 and S2 present. No murmurs, rubs, or gallops. PULMONARY: Chest is clear to auscultation, no wheezing or crackles. ABDOMEN: Soft, nontender, nondistended, normoactive bowel sounds. No palpable organomegaly. MUSCULOSKELETAL: No joint swelling or deformity. EXTREMITIES: No cyanosis, clubbing, or pedal edema. NEUROLOGICAL: Gross neurological examination did not reveal any focal deficits. SKIN: No rashes. no petechiae. - Labs CBC & Chem 7: 01/31/21 05:15 02/01/21 05:13 Labs: Microbiology - Last 24 Hours (Table) 01/31/21 10:29 Gram Stain - Final Sputum Sputum Culture - Final 01/30/21 13:15 Blood Culture - Preliminary Blood No Growth after 48 hours 01/30/21 13:35 Blood Culture - Preliminary Blood No Growth after 48 hours Assessment and Plan Assessment: acute bilateral covid pneumonia Acute hypoxic respiratory failure secondary to above, on chronic hypoxic respiratory failure Elevated inflammatory markers Covid gastroenteritis and hepatitis Elevated d-dimer with negative CTPA for pulmonary embolism. Patient is already on Eliquis Atrial fibrillation with history of stroke, on Eliquis History of coronary artery disease COPD, not in acute exacerbation Chronic hypoxic respiratory failure on 2 L of oxygen via nasal cannula History of GERD Hyperlipidemia Osteoarthritis Chronic low back pain Plan: this is a pleasant 65 years old female who presents with Covid pneumonia and hypoxia. Continue with Eliquis and dexamethasone, start the patient on vitamin C, vitamin D and zinc. Pulmonary team evaluated the patient who decided patient is outside the window for remdesivir. Labs and medication were reviewed.. Continue same treatment. Continue with symptomatic treatment. Resume home medication. Monitor lytes and vitals. DVT and GI prophylaxis. Further recommendationsas per clinical course of the patient DVT prophylaxis: Eliquis GI Prophylaxis: Ppi PT/OT: Pending Prognosis is guarded
[2021-02-02] MEDS: ATORVASTATIN 80 MG TAB PO SCH (19:39)
[2021-02-02] MEDS: MONTELUKAST 10 MG TAB PO SCH (19:40)
[2021-02-02] MEDS: ACETAMINOPHEN TAB 325 MG TAB PO PRN (19:41)
--- NOTE | 2021-02-02 20:08 | PN ---
PROGRESS NOTE DATE OF SERVICE: 02/02/2021 REASON FOR FOLLOWUP: COVID-19 pneumonia. INTERVAL HISTORY: Patient is currently afebrile. The patient is feeling slightly better, breathing slightly comfortably. The patient denies having any chest pain. She did have a cough with occasional sputum production. No hemoptysis. No abdominal pain or diarrhea. PHYSICAL EXAMINATION: Blood pressure 139/65, pulse of 74, temperature 98.4. She is 92% on 8 L nasal cannula. GENERAL description is a middle-aged female lying in bed in no distress. RESPIRATORY system: Unlabored breathing, clear to auscultation anteriorly. HEART S1, S2. Regular rate and rhythm. ABDOMEN: Soft, no tenderness. LABS: Creatinine is 9.1, white count 4.48, BUN of 33, creatinine 0.9. Sputum culture so far negative. DIAGNOSTIC IMPRESSION AND PLAN: Patient admitted in the hospital with acute COVID-19 pneumonia, did have elevated liver enzymes use of Remdesivir. The patient is currently on dexamethasone, zinc, Eliquis and ascorbic acid to continue while monitoring clinical course closely. MMODL / IJN: [id number] /
[2021-02-03 07:38] LABS: Calcium 8.3 mg/dL (8.4-10.2)
[2021-02-03 07:40] LABS: African American GFR (CKD) >90 (>60 ml/min/1.73 sqM); Anion Gap 1 mmol/L; Blood Urea Nitrogen 22 mg/dL (7-17); C Reactive Protein 57.6 mg/L (<10.0); Carbon Dioxide 30 mmol/L (22-30); Chloride 105 mmol/L (98-107); Glucose 96 mg/dL (74-99); Non-African American GFR(CKD) >90 (>60 ml/min/1.73 sqM); Potassium 4.8 mmol/L (3.5-5.1); Sodium 136 mmol/L (137-145)
[2021-02-03 07:55] LABS: LDH 4001 U/L (313-618)
[2021-02-03] MEDS: ASCORBIC ACID 500 MG TAB PO SCH ×2 (08:22→21:22)
[2021-02-03] MEDS: dexAMETHasone 2 MG TAB PO SCH (08:22)
[2021-02-03] MEDS: lisinopriL 5 MG TAB PO SCH (08:22)
[2021-02-03] MEDS: ZINC SULFATE 220 MG CAP PO SCH (08:22)
[2021-02-03] MEDS: CHOLECALCIFEROL 25 MCG (1000 IU) TABLET PO SCH (08:22)
[2021-02-03] MEDS: PANTOPRAZOLE 40 MG/10 ML VIAL IVP SCH (08:22)
[2021-02-03] MEDS: APIXABAN 5 MG TAB PO SCH ×2 (08:22→21:21)
[2021-02-03] MEDS: AMIODARONE 200 MG TAB PO SCH ×2 (08:22→21:21)
[2021-02-03 09:07] LABS: HCT 35.1 % (37.2-46.3); MCH 26.9 pg (27.0-32.0); MCHC 31.3 g/dL (32.0-37.0); MCV 85.8 fL (80.0-97.0); Mean Platelet Volume 11.5 fL (9.5-12.2); Platelet Count 198 X 10*3/uL (140-440); RBC 4.09 X 10*6/uL (4.10-5.20); RDW 16.6 % (11.5-14.5); WBC 5.03 X 10*3/uL (4.50-10.00)
[2021-02-03] MEDS: SYMBICORT 160-4.5 MCG INHALER INHALATION SCH ×2 (09:07→20:53)
[2021-02-03] MEDS: ALBUTEROL HFA INHALER INHALATION SCH ×4 (09:07→20:53)
[2021-02-03] MEDS ORDERED: guaiFENesin-DM 100-10MG/5ML 10 ML CUP PO PRN (09:38)
[2021-02-03 10:48] LABS: Basophils # (A) 0.02 X 10*3/uL (0.00-0.10); Basophils % (A) 0.4 %; Eosinophils # (A) 0 X 10*3/uL (0.04-0.35); Eosinophils % (A) 0 %; Lymphocytes # (A) 0.44 X 10*3/uL (0.90-5.00); Lymphocytes % (A) 8.7 %; Monocytes # (A) 0.31 X 10*3/uL (0.20-1.00); Monocytes % (A) 6.2 %; Neutrophils # (A) 4.11 X 10*3/uL (1.80-7.70); Neutrophils % (A) 81.7 %
--- NOTE | 2021-02-03 16:02 | P.PN ---
Subjective this is a pleasant 65 yo F with past medical history of atrial fibrillation on eliquis, coronary artery disease, COPD ON home oxygen ( 2 L/m), and f/u with , she quit smoking last august 2020, GERD, hyperlipidemia, osteoartheritis , chronic low back pain ,involving left leg numbness , scoliosis and seasonal ALLERGIES. She presents with some tachypnea, and covered with phlegm for more than 6-7 days associated with diarrhea for 3 days. No chest pain or abdominal pain. No nausea vomiting. She is hypoxemic needing a liter of oxygen via nasal cannula, she has low grade temperature of 100.2. Lap showing mild pancytopenia with WBC 4.4K, hemoglobin 11.3 and platelet 84. D-dimer is elevated 9.7, sodium 135, potassium 3.4, liver enzymes are elevated with normal total bilirubin of 0.8, AST is 1446 and ALT 1798. Amylase and lipase are normal. Urine analysis is mildly abnormal most likely due to dehydration. Sputum cultures pending EKG shows sinus tachycardia at [address]-T changes. QTC is 557. CT of the chest is negative for PE, showing emphysema and patchy ground glass appearance CT on both lungs. Gallbladder ultrasound showing gallbladder sludge and hepatomegaly, acute hepatitis panel is negative She is currently started on dexamethasone, she is already on Eliquis. She received fluids in the emergency room 02/01/2021 Patient respiratory distress is mild. No chest pain, no cough, diarrhea stop ped. Oxygen saturation is stable on 8 L/m of oxygen via nasal cannula. showing improvement liver enzymes however they're still elevated. Patient remains on Eliquis, dexamethasone and multiple vitamins protocol with. No remdesivir due to elevated enzymes. 02/02/2021 Patient as a level of dyspnea as yesterday. No significant cough or chest pain and her diarrhea stopped. Her oxygen requirement is the same at 8 L/m via high flow nasal cannula. No labs from today. Patient remains on dexamethasone 6 mg daily, 1 dose OF MEDROL IS ADMITTED TODAY BECAUSE SHE WAS WHEEZING IN THE MORNING. PATIENT IS KNOWN CASE OF COPD SHE IS ON HOME OXYGEN AT 2 L/M AND SHE FOLLOWS UP WITH DR. ELLIS IN THE OUTPATIENT SETTING. CHECK LABS TOMORROW INCLUDING INFLAMMATORY MARKERS Chief continue with dexamethasone, Eliquis, multiple vitamins protocol that. 02/03/2021 Patient still with some dyspnea and needing 8 L of oxygen per minute to keep her saturation above 90%. No chest pain or significant diarrhea. Patient still have some cough and treated symptomatically. Patient hemodynamically stable other than that. Her labs included significant improvement with CBC with normal WBC and platelet count, hemoglobin stable at 11. LDH is trending down slowly to 4001 and C-reactive protein improved to 57. Liver enzymes are trending down. Patient remains on Eliquis, dexamethasone and multiple vitamins for covid Objective - Vital Signs Vital signs: Vital Signs Temp 98.3 F 02/03/21 14:00 Pulse 71 02/03/21 14:00 Resp 16 02/03/21 14:00 BP 153/73 02/03/21 14:00 Pulse Ox 93 L 02/03/21 14:00 Intake & Output 02/02/21 02/03/21 02/03/21 18:59 06:59 18:59 Intake Total 120 300 Output Total 100 Balance 120 200 Intake: IV 240 0.9 NS 20ml/hr 240 Oral 120 60 Output: Urine 100 Other: Voiding Method Bedpan # Voids 3 2 3 - Exam GENERAL: The patient is alert and oriented x3, not in any acute distress. Well developed, well nourished. HEENT: Pupils are round and equally reacting to light. EOMI. No scleral icterus. No conjunctival pallor. Normocephalic, atraumatic. No pharyngeal erythema. No thyromegaly. CARDIOVASCULAR: S1 and S2 present. No murmurs, rubs, or gallops. PULMONARY: Chest is clear to auscultation, no wheezing or crackles. ABDOMEN: Soft, nontender, nondistended, normoactive bowel sounds. No palpable organomegaly. MUSCULOSKELETAL: No joint swelling or deformity. EXTREMITIES: No cyanosis, clubbing, or pedal edema. NEUROLOGICAL: Gross neurological examination did not reveal any focal deficits. SKIN: No rashes. no petechiae. - Labs CBC & Chem 7: 02/03/21 06:22 02/03/21 06:22 Labs: Abnormal Lab Results - Last 24 Hours (Table) 02/03/21 02/03/21 02/03/21 Range/Units 06:22 06:22 06:22 RBC 4.09 L (4.10-5.20) X 10*6/uL Hgb 11.0 L (12.0-15.0) g/dL Hct 35.1 L (37.2-46.3) % MCH 26.9 L (27.0-32.0) pg MCHC 31.3 L (32.0-37.0) g/dL RDW 16.6 H (11.5-14.5) % Absolute Nucleated RBC 0.02 H (0.00-0.00) X 10*3/uL Immature Gran # 0.15 H (0.00-0.04) X 10*3/uL Lymphocytes # 0.44 L (0.90-5.00) X 10*3/uL Eosinophils # 0 L (0.04-0.35) X 10*3/uL NRBC/100 WBC Diff 0.4 H (0.0-0.0) /100 WBCS Sodium 136 L (137-145) mmol/L BUN 22 H (7-17) mg/dL Calcium 8.3 L (8.4-10.2) mg/dL Lactate Dehydrogenase 4001 H (313-618) U/L C-Reactive Protein 57.6 H (<10.0) mg/L Procalcitonin 0.22 H (0.02-0.09) ng/mL Microbiology - Last 24 Hours (Table) 01/30/21 13:15 Blood Culture - Preliminary Blood No Growth after 96 hours 01/30/21 13:35 Blood Culture - Preliminary Blood No Growth after 96 hours Assessment and Plan Assessment: acute bilateral covid pneumonia Acute hypoxic respiratory failure secondary to above, on chronic hypoxic respiratory failure Elevated inflammatory markers Covid gastroenteritis and hepatitis Elevated d-dimer with negative CTPA for pulmonary embolism. Patient is already on Eliquis Atrial fibrillation with history of stroke, on Eliquis History of coronary artery disease COPD, not in acute exacerbation Chronic hypoxic respiratory failure on 2 L of oxygen via nasal cannula History of GERD Hyperlipidemia Osteoarthritis Chronic low back pain Plan: this is a pleasant 65 years old female who presents with Covid pneumonia and hypoxia. Continue with Eliquis and dexamethasone, start the patient on vitamin C, vitamin D and zinc. Pulmonary team evaluated the patient who decided patient is outside the window for remdesivir. Labs and medication were reviewed.. Continue same treatment. Continue with symptomatic treatment. Resume home medication. Monitor lytes and vitals. DVT and GI prophylaxis. Further recommendationsas per clinical course of the patient DVT prophylaxis: Eliquis GI Prophylaxis: Ppi PT/OT: Pending Prognosis is guarded
--- NOTE | 2021-02-03 16:09 | P.PN ---
Subjective Progress Note Date: 02/03/21 Principal diagnosis: Acute on chronic hypoxic respiratory failure secondary to acute COVID 19 pneumonia and history of underlying COPD 65-year-old white female patient who is familiar to our service from her previous history of hospitalizations for complications related to her underlying history of COPD stage III, on home oxygen. She follows with Dr. Artis in the pulmonary clinic. She is normally on 2 L of oxygen on a regular basis, patient had recent hospitalization for acute exacerbation of COPD complicated by purulent tracheal bronchitis. Her other medical history significant for hypertension, history of A. fib, previous history of CVA, [place], osteoarthritis, previous history of brain aneurysm with clipping, and previous history of smoking. She was discharged home on 01/17/2021, and was feeling well for a while, last week on she started feeling worse, denied any worsening dyspnea, she is chronically short of breath and that did not seem to get any w orse, however she is feeling very weak, she developed profuse diarrhea which she states is uncontrollable, and overall she feels quite rundown. She is also having some chest discomfort in the anterior sternal area which is worse with coughing and moving around, and some abdominal tenderness in the right upper and lower quadrants, but no nausea or vomiting, abdomen is soft. Chest x-ray in the emergency department shows COPD interstitial pneumonitis small bilateral pleural effusions, and a basilar consolidation. COVID 19 PCR was positive. Admission labs showed white blood cell count 5.4, hemoglobin is 12.7, platelet count is 60, d-dimer was increased at 9.7 to the patient is on Eliquis on a regular basis for history of A. fib, CTA chest was completed, however there was breathing motion artifact, but no evidence of large central or lobar branch pulmonary embolus, many segmental and more distal arterial branches were nondiagnostic, there were multifocal bilateral patchy and confluent groundglass opacities and a trace pleural effusions. There was a small hiatal hernia. Her enzymes were significantly elevated and ultrasound of the gallbladder was completely showing hepatomegaly, and sludge within the gallbladder. Currently patient is up to 8 L of oxygen, her pulse ox is 93%, hemodynamically she stable, she is in sinus mechanism, slightly tachycardic on the monitor. Troponin was 0.021. Her inflammatory markers were significantly elevated with LDH of 4970, and CRP is 203.5. AST was 1441, and ALT was 2053, total bilirubin was 0.9, and alk phos was 79. Urinalysis was positive for 2+ protein, nitrates, many bacteria. She is on Rocephin for empiric coverage, hepatitis panel was nonreactive, Tylenol level was less than 10. Amylase and lipase were negative at 43 and 53 re spectively. Patient was started on Decadron 6 milligram daily, her Eliquis continues, and patient is on amiodarone and Lipitor. Stool for C. diff has been ordered, cultures have been sent Reevaluated today on 02/01/21, patient seems to be doing fairly well, her O2 saturations 91% on 2 L nasal cannula. Patient was on 8 L on admission. Patient is normally on oxygen and home, she does have underlying COPD. Remains on the Covid 19 cocktail. Remains on bronchodilators. Patient did not receive REM mostly because of her liver enzymes being quite elevated. Remain elevated today but trending admitted down especially her ALT is down to 1798 from 2053 Patient was reevaluated today on 02/02/2021, remains on high flow oxygen, now she is on 8 L, O2 sats is ranging anywhere between 91% up to 97%. Today it is 94%. Patient looks comfortable, not in any distress. No labs were drawn today, but her labs from yesterday were reviewed, liver enzymes are improving a bit with ALT down to 1534 and AST is down to 758. Her last CT angiogram was on 01/31 which I have noted above. On 02/03/2021 patient seen in follow-up on medical floor, she is currently at 8 L of oxygen pulse ox is 91%, she is doing better, her LDH and CRP remain elevated but improving, her cough has improved, she started to bring up some yellowish colored phlegm, no hemoptysis, pro-calcitonin was 0.22, she is currently on oral Decadron, she continues on Robitussin, she is on inhalers, she is on oral anticoagulation in the form of Eliquis for her history of A. fib. Her liver enzymes were starting to improve. No acute events overnight. Patient was not a candidate for Remdesivir related to elevated liver enzymes. She cont inues on supportive treatment. Objective - Vital Signs Vital signs: Vital Signs Temp 98.3 F 02/03/21 14:00 Pulse 71 02/03/21 14:00 Resp 16 02/03/21 14:00 BP 153/73 02/03/21 14:00 Pulse Ox 93 L 02/03/21 14:00 Intake & Output 02/02/21 02/03/21 02/03/21 18:59 06:59 18:59 Intake Total 120 300 Output Total 100 Balance 120 200 Intake: IV 240 0.9 NS 20ml/hr 240 Oral 120 60 Output: Urine 100 Other: Voiding Method Bedpan # Voids 3 2 3 - Exam GENERAL EXAM: Alert, pleasant, 65-year-old white female, currently on 8 L of oxygen, with a pulse ox of 91-93% HEAD: Normocephalic/atraumatic. EYES: Normal reaction of pupils, equal size. Conjunctiva pink, sclera white. NOSE: Clear with pink turbinates. THROAT: No erythema or exudates. NECK: No masses, no JVD, no thyroid enlargement, no adenopathy. CHEST: No chest wall deformity. Symmetrical expansion. LUNGS: Equal air entry with bilateral crackles CVS: Regular rate and rhythm, normal S1 and S2, no gallops, no murmurs, no rubs ABDOMEN: Soft, nontender. No hepatosplenomegaly, normal bowel sounds, no guarding or rigidity. Mild tenderness with palpation in the right upper and lower quadrant EXTREMITIES: No clubbing, no edema, no cyanosis, 2+ pulses and upper and lower extremities. MUSCULOSKELETAL: Muscle strength and tone normal. SPINE: No scoliosis or deformity SKIN: No rashes CENTRAL NERVOUS SYSTEM: Alert and oriented -3. No focal deficits, tone is n ormal in all 4 extremities. PSYCHIATRIC: Alert and oriented -3. Appropriate affect. Intact judgment and insight. - Labs CBC & Chem 7: 02/03/21 06:22 02/03/21 06:22 Labs: Abnormal Lab Results - Last 24 Hours (Table) 02/03/21 02/03/21 02/03/21 Range/Units 06:22 06:22 06:22 RBC 4.09 L (4.10-5.20) X 10*6/uL Hgb 11.0 L (12.0-15.0) g/dL Hct 35.1 L (37.2-46.3) % MCH 26.9 L (27.0-32.0) pg MCHC 31.3 L (32.0-37.0) g/dL RDW 16.6 H (11.5-14.5) % Absolute Nucleated RBC 0.02 H (0.00-0.00) X 10*3/uL Immature Gran # 0.15 H (0.00-0.04) X 10*3/uL Lymphocytes # 0.44 L (0.90-5.00) X 10*3/uL Eosinophils # 0 L (0.04-0.35) X 10*3/uL NRBC/100 WBC Diff 0.4 H (0.0-0.0) /100 WBCS Sodium 136 L (137-145) mmol/L BUN 22 H (7-17) mg/dL Calcium 8.3 L (8.4-10.2) mg/dL Lactate Dehydrogenase 4001 H (313-618) U/L C-Reactive Protein 57.6 H (<10.0) mg/L Procalcitonin 0.22 H (0.02-0.09) ng/mL Microbiology - Last 24 Hours (Table) 01/30/21 13:15 Blood Culture - Preliminary Blood No Growth after 96 hours 01/30/21 13:35 Blood Culture - Preliminary Blood No Growth after 96 hours Assessment and Plan Plan: Assessment: #1. Acute on chronic hypoxic respiratory failure related to acute COVID 19 pneumonia, patient's symptoms started last week on with 7 days of presentation, she tested positive on 01/30/2021 in the emergency department #2. Recent hospitalization for acute exacerbation of COPD, was negative for COVID 19 at that time, discharged home on 01/17/2021 #3. Elevated transaminases, possibly related to acute COVID 19 infection, lipase and amylase were negative, gallbladder ultrasound showing some sludge, gallbladder lorenzana within normal limits #4. Elevated d-dimer, patient is on Eliquis for history of A. fib, no evidence of PE on the CT chest #5. Possible urinary tract infection, send a urine culture #6. Diarrhea, rule out C. diff #7. History of COPD, stage III at baseline, with chronic hypoxic respiratory failure #8. Significantly elevated inflammatory markers related to COVID 19 #9. History of A. fib on Eliquis #10. Myocardial infarction #11. History of brain aneurysm with clippings #12. DJD Plan: Patient feels like she is improving, will continue with current medical treatment, she has been converted to oral Decadron, continue with Symbicort, Robitussin, continue oral anticoagulation, her liver enzymes were improving yesterday's labs, we will obtain follow-up labs in the morning, continue weaning FiO2 to keep O2 sat between 89-90%. I performed a history & physical examination of the patient and discussed their management with my nurse practitioner, Darcy Mccartney. I reviewed the nurse practitioner's note and agree with the documented findings and plan of care. Lung sounds are positive for diminished breath sounds. The findings and the impression was discussed with the patient. I attest to the documentation by the nurse practitioner. Time with Patient: Less than 30
--- NOTE | 2021-02-03 20:33 | PN ---
PROGRESS NOTE DATE OF SERVICE: 02/03/2021 REASON FOR FOLLOWUP: Pneumonia. INTERVAL HISTORY: The patient is currently afebrile. The patient is feeling slightly better today. Still requiring 8 L high-flow oxygen. The patient denies any chest pain. She did have a cough with occasional sputum. No hemoptysis. No abdominal pain and no diarrhea. PHYSICAL EXAMINATION: Blood pressure 175/76, pulse of 69, temperature 98.8. She is 94% on 8 L high-flow oxygen. General description is a middle-aged female up in the bed in no distress. Respiratory system: Unlabored breathing, decreased intensity of breath sounds. No wheeze. Heart: S1, S2. Regular rate and rhythm. Abdomen soft, no tenderness. LABS: Hemoglobin is 11.9, white count 5.03, BUN of 22, creatinine 0.65. LDH up to 4001. DIAGNOSTIC IMPRESSION AND PLAN: Patient with acute COVID-19 infection in this patient who did have significant elevated LDH as well as elevated liver enzymes. She was unable to get Remdesivir, currently on dexamethasone, zinc and ascorbic acid and may benefit from a dose of Actemra. Continue supportive care. MMODL / IJN: [id number] /
[2021-02-03] MEDS: ATORVASTATIN 80 MG TAB PO SCH (21:21)
[2021-02-03] MEDS: MONTELUKAST 10 MG TAB PO SCH (21:21)
[2021-02-04 07:18] LABS: C Reactive Protein 41.8 mg/L (<10.0)
[2021-02-04] MEDS: APIXABAN 5 MG TAB PO SCH ×2 (07:43→20:28)
[2021-02-04] MEDS: lisinopriL 5 MG TAB PO SCH (07:43)
[2021-02-04] MEDS: AMIODARONE 200 MG TAB PO SCH ×2 (07:44→20:28)
[2021-02-04] MEDS: ASCORBIC ACID 500 MG TAB PO SCH ×2 (07:44→20:28)
[2021-02-04] MEDS: PANTOPRAZOLE 40 MG/10 ML VIAL IVP SCH (07:44)
[2021-02-04] MEDS: CHOLECALCIFEROL 25 MCG (1000 IU) TABLET PO SCH (07:44)
[2021-02-04] MEDS: dexAMETHasone 2 MG TAB PO SCH (07:44)
[2021-02-04] MEDS: ZINC SULFATE 220 MG CAP PO SCH (07:56)
--- NOTE | 2021-02-04 09:17 | XR ---
EXAMINATION TYPE: XR chest 1V portable DATE OF EXAM: 02/04/2021 COMPARISON: 01/30/2021 HISTORY: Cough TECHNIQUE: Single frontal view of the chest is obtained. FINDINGS: Diffuse interstitial infiltrates are stable with small right effusion and perihilar basila r infiltrate. Postsurgical change left shoulder suspected solid density overlying the humeral head co rrelate clinically. Heart size normal. Underlying COPD suspected. No pneumothorax. IMPRESSION: 1. Diffuse interstitial infiltrate and basilar infiltrate stable.
[2021-02-04] MEDS: ALBUTEROL HFA INHALER INHALATION SCH ×4 (09:25→20:30)
[2021-02-04] MEDS: SYMBICORT 160-4.5 MCG INHALER INHALATION SCH ×2 (09:26→17:56)
[2021-02-04] MEDS: amLODIPine 5 MG TAB PO SCH (12:35)
--- NOTE | 2021-02-04 12:38 | P.PN ---
Subjective Progress Note Date: 02/04/21 65-year-old white female patient who is familiar to our service from her previous history of hospitalizations for complications related to her underlying history of COPD stage III, on home oxygen. She follows with Dr. Artis in the pulmonary clinic. She is normally on 2 L of oxygen on a regular basis, patient had recent hospitalization for acute exacerbation of COPD complicated by purulent tracheal bronchitis. Her other medical history significant for hypertension, history of A. fib, previous history of CVA, [place], osteoarthritis, previous history of brain aneurysm with clipping, and previous history of smoking. She was discharged home on 01/17/2021, and was feeling well for a while, last week on she started feeling worse, denied any worsening dyspnea, she is chronically short of breath and that did not seem to get any worse, however she is feeling very weak, she developed profuse diarrhea which she states is uncontrollable, and overall she feels quite rundown. She is also having some chest discomfort in the anterior sternal area which is worse with coughing and moving around, and some abdominal tenderness in the right upper and lower quadrants, but no nausea or vomiting, abdomen is soft. Chest x-ray in the emergency department shows COPD interstitial pneumonitis small bilateral pleural effusions, and a basilar consolidation. COVID 19 PCR was positive. Admission labs showed white blood cell count 5.4, hemoglobin is 12.7, platelet count is 60, d-dimer was increased at 9.7 to the patient is on Eliquis on a regular basis for history of A. fib, CTA chest was completed, however there was breathing motion artifact, but no evidence of large central or lobar branch pulmonary embolus, many segmental and more distal arterial branches were nondiagnostic, there were multifocal bilateral patchy and confluent groundglass opacities and a trace pleural effusions. There was a small hiatal hernia. Her enzymes were significantly elevated and ultrasound of the gallbladder was completely showing hepatomegaly, and sludge within the gallbladder. Currently patient is up to 8 L of oxygen, her pulse ox is 93%, hemodynamically she stable, she is in sinus mechanism, slightly tachycardic on the monitor. Troponin was 0.021. Her inflammatory markers were significantly elevated with LDH of 4970, and CRP is 203.5. AST was 1441, and ALT was 2054, total bilirubin was 0.9, and alk phos was 79. Urinalysis was positive for 2+ protein, nitrates, many bacteria. She is on Rocephin for empiric coverage, hepatitis panel was nonreactive, Tylenol level was less than 10. Amylase and lipase were negative at 43 and 53 respectively. Patient was started on Decadron 6 milligram daily, her Eliquis continues, and patient is on amiodarone and Lipitor. Stool for C. diff has been ordered, cultures have been sent Reevaluated today on 02/01/21, patient seems to be doing fairly well, her O2 saturations 91% on 2 L nasal cannula. Patient was on 8 L on admission. Patient is normally on oxygen and home, she does have underlying COPD. Remains on the Covid 19 cocktail. Remains on bronchodilators. Patient did not receive REM mostly because of her liver enzymes being quite elevated. Remain elevated today but trending admitted down especially her ALT is down to 1798 from 2053 Patient was reevaluated today on 02/02/2021, remains on high flow oxygen, now she is on 8 L, O2 sats is ranging anywhere between 91% up to 97%. Today it is 94%. Patient looks comfortable, not in any distress. No labs were drawn today, but her labs from yesterday were reviewed, liver enzymes are improving a bit with ALT down to 1534 and AST is down to 758. Her last CT angiogram was on 01/31 which I have noted above. On 02/03/2021 patient seen in follow-up on medical floor, she is currently at 8 L of oxygen pulse ox is 91%, she is doing better, her LDH and CRP remain elevated but improving, her cough has improved, she started to bring up some yellowish colored phlegm, no hemoptysis, pro-calcitonin was 0.22, she is currently on oral Decadron, she continues on Robitussin, she is on inhalers, she is on oral anticoagulation in the form of Eliquis for her history of A. fib. Her liver enzymes were starting to improve. No acute events overnight. Patient was not a candidate for Remdesivir related to elevated liver enzymes. She continues on supportive treatment. On 02/04/2021, the patient is on 10 L of oxygen by nasal cannula. She is known to have COPD and the patient also was diagnosed having Covid associated pneumonia. The patient is chest x-ray showed stable bilateral pulmonary inf iltrates. Last x-ray was done today and the patient is infiltration of the lung bases bilaterally and there is some interval progression and worsening of the lower lobe pulmonary infiltrates. The patient had some abnormal LFTs and transaminitis. For that reason, the patient was not given Remdesivir and she received steroids and the patient is on Decadron 6 mg on a daily basis. The patient also has chronic atrial fibrillation. She remains on amiodarone. She remains on long-term and to coagulation with Eliquis. In terms of the inflammatory markers, the LDH is elevated at 3527 with a CRP of 41. The patient also has significant elevation of the liver function tests which improved. I think it's reasonable to repeat the LFTs. The patient had a d-dimer of 6.83. CT angiogram that was done at time of admission showed no evidence of any pulmonary embolism. There was however bilateral pulmonary infiltrates and motion artifact in addition to patchy bibasilar airspace / groundglass changes in addition to background COPD. Objective - Vital Signs Vital signs: Vital Signs Temp 97.9 F 02/04/21 10:00 Pulse 70 02/04/21 10:00 Resp 20 02/04/21 10:00 BP 151/77 02/04/21 10:00 Pulse Ox 91 L 02/04/21 10:00 Intake & Output 02/03/21 02/04/21 02/04/21 18:59 06:59 18:59 Other: Voiding Method Bedpan # Voids 3 3 - Exam GENERAL EXAM: Alert, pleasant, 65-year-old white female, currently on 10 L of oxygen, with a pulse ox of 91-93% HEAD: Normocephalic/atraumatic. EYES: Normal reaction of pupils, equal size. Conjunctiva pink, sclera white. NOSE: Clear with pink turbinates. THROAT: No erythema or exudates. NECK: No masses, no JVD, no thyroid enlargement, no adenopathy. CHEST: No chest wall deformity. Symmetrical expansion. LUNGS: Equal air entry with bilateral crackles CVS: Regular rate and rhythm, normal S1 and S2, no gallops, no murmurs, no rubs ABDOMEN: Soft, nontender. No hepatosplenomegaly, normal bowel sounds, no guarding or rigidity. Mild tenderness with palpation in the right upper and lower quadrant EXTREMITIES: No clubbing, no edema, no cyanosis, 2+ pulses and upper and lower extremities. MUSCULOSKELETAL: Muscle strength and tone normal. SPINE: No scoliosis or deformity SKIN: No rashes CENTRAL NERVOUS SYSTEM: Alert and oriented -3. No focal deficits, tone is normal in all 4 extremities. PSYCHIATRIC: Alert and oriented -3. Appropriate affect. Intact judgment and insight. - Labs CBC & Chem 7: 02/03/21 06:22 02/03/21 06:22 Labs: Abnormal Lab Results - Last 24 Hours (Table) 02/04/21 02/04/21 Range/Units 05:41 05:41 D-Dimer 6.83 H (<0.60) mg/L FEU Lactate Dehydrogenase 3527 H (313-618) U/L C-Reactive Protein 41.8 H (<10.0) mg/L Microbiology - Last 24 Hours (Table) 01/30/21 13:15 Blood Culture - Preliminary Blood No Growth after 96 hours 01/30/21 13:35 Blood Culture - Preliminary Blood No Growth after 96 hours Assessment and Plan Plan: #1. Acute on chronic hypoxic respiratory failure related to acute COVID 19 pneumonia, patient's symptoms started last week on with 7 days of prese ntation, she tested positive on 01/30/2021 in the emergency department chest x- ray from today showing some interval worsening in the lower lobe pulmonary infiltrates and the patient is currently on 10 L about 2 by nasal cannula. The patient remains on oral Decadron 6 mg by mouth daily. #2. Recent hospitalization for acute exacerbation of COPD, was negative for COVID 19 at that time, discharged home on 01/17/2021 #3. Elevated transaminases, possibly related to acute COVID 19 infection, lipas e and amylase were negative, gallbladder ultrasound showing some sludge, gallbladder lorenzana within normal limits #4. Elevated d-dimer, patient is on Eliquis for history of A. fib, no evidence of PE on the CT chest #5. Possible urinary tract infection, send a urine culture #6. Diarrhea, rule out C. diff #7. History of COPD, stage III at baseline, with chronic hypoxic respiratory failure #8. Significantly elevated inflammatory markers related to COVID 19 #9. History of A. fib on Eliquis #10. Myocardial infarction #11. History of brain aneurysm with clippings #12. DJD Plan: Continue Decadron 6 mg by mouth daily Continue Symbicort and Monitor LFTs Monitor inflammatory markers, monitor LFTs in a.m. Attempt to wean down the FiO2 currently on 10 L Eliquis 5 mg by mouth twice a day We'll continue to follow
--- NOTE | 2021-02-04 18:48 | PN ---
PROGRESS NOTE DATE OF SERVICE: 02/04/2021 REASON FOR FOLLOWUP: COVID-19 infection. INTERVAL HISTORY: The patient is currently afebrile. The patient is breathing slightly comfortably, still requiring high-flow nasal cannula oxygen. The patient denies having any chest pain. She did have a cough with occasional sputum. No abdominal pain or diarrhea. PHYSICAL EXAMINATION: Blood pressure 130/72 with a pulse of 77, temperature 98.4. She is 90% on 10 L high- flow oxygen. General description is a middle-aged female lying in bed in no distress. RESPIRATORY SYSTEM: Unlabored breathing with decreased intensity of breath sounds. No wheeze. HEART: S1, S2. Regular rate and rhythm. ABDOMEN: Soft. No tenderness. LABS: D-dimer is down to 6.83. LDH is down to 3527 with CRP 41.8. DIAGNOSTIC IMPRESSION AND PLAN: Patient with acute respiratory failure secondary to COVID-19 infection in this patient who did not receive remdesivir because of elevated liver enzymes but has shown overall improvement. Patient is currently on Eliquis, dexamethasone, zinc and ascorbic acid. Clinically no evidence of any secondary bacterial pneumonia; hence will hold on any systemic antibiotic therapy. MMODL / IJN: [id number] /
[2021-02-04] MEDS: ATORVASTATIN 80 MG TAB PO SCH (20:28)
[2021-02-04] MEDS: MONTELUKAST 10 MG TAB PO SCH (20:28)
[2021-02-04] MEDS: ACETAMINOPHEN TAB 325 MG TAB PO PRN (20:31)
--- NOTE | 2021-02-05 00:03 | P.PN ---
Subjective this is a pleasant 65 yo F with past medical history of atrial fibrillation on eliquis, coronary artery disease, COPD ON home oxygen ( 2 L/m), and f/u with , she quit smoking last august 2020, GERD, hyperlipidemia, osteoartheritis , chronic low back pain ,involving left leg numbness , scoliosis and seasonal ALLERGIES. She presents with some tachypnea, and covered with phlegm for more than 6-7 days associated with diarrhea for 3 days. No chest pain or abdominal pain. No nausea vomiting. She is hypoxemic needing a liter of oxygen via nasal cannula, she has low grade temperature of 100.2. Lap showing mild pancytopenia with WBC 4.4K, hemoglobin 11.3 and platelet 84. D-dimer is elevated 9.7, sodium 135, potassium 3.4, liver enzymes are elevated with normal total bilirubin of 0.8, AST is 1446 and ALT 1798. Amylase and lipase are normal. Urine analysis is mildly abnormal most likely due to dehydration. Sputum cultures pending EKG shows sinus tachycardia at [address]-T changes. QTC is 557. CT of the chest is negative for PE, showing emphysema and patchy ground glass appearance CT on both lungs. Gallbladder ultrasound showing gallbladder sludge and hepatomegaly, acute hepatitis panel is negative She is currently started on dexamethasone, she is already on Eliquis. She received fluids in the emergency room 02/01/2021 Patient respiratory distress is mild. No chest pain, no cough, diarrhea stop ped. Oxygen saturation is stable on 8 L/m of oxygen via nasal cannula. showing improvement liver enzymes however they're still elevated. Patient remains on Eliquis, dexamethasone and multiple vitamins protocol with. No remdesivir due to elevated enzymes. 02/02/2021 Patient as a level of dyspnea as yesterday. No significant cough or chest pain and her diarrhea stopped. Her oxygen requirement is the same at 8 L/m via high flow nasal cannula. No labs from today. Patient remains on dexamethasone 6 mg daily, 1 dose OF MEDROL IS ADMITTED TODAY BECAUSE SHE WAS WHEEZING IN THE MORNING. PATIENT IS KNOWN CASE OF COPD SHE IS ON HOME OXYGEN AT 2 L/M AND SHE FOLLOWS UP WITH DR. ELLIS IN THE OUTPATIENT SETTING. CHECK LABS TOMORROW INCLUDING INFLAMMATORY MARKERS Chief continue with dexamethasone, Eliquis, multiple vitamins protocol that. 02/03/2021 Patient still with some dyspnea and needing 8 L of oxygen per minute to keep her saturation above 90%. No chest pain or significant diarrhea. Patient still have some cough and treated symptomatically. Patient hemodynamically stable other than that. Her labs included significant improvement with CBC with normal WBC and platelet count, hemoglobin stable at 11. LDH is trending down slowly to 4001 and C-reactive protein improved to 57. Liver enzymes are trending down. Patient remains on Eliquis, dexamethasone and multiple vitamins for covid 02/04/2021 Patient today is limited more wheezy and dyspneic with oxygen saturation went up to 2 L/m via nasal cannula. [place] with no chest pain or significant diarrhea. She is coughing somewhat phlegm and she refuses cough medicine because she was to clear her lungs as she states. D-dimer is coming down 9.7 down to 6.8, slightly improving inflammatory markers with LDH down to 35-7 and C-reactive protein to 41 0.8. Pulmonary team, and to continue same medication and check LFTs in the morning Patient remains on dexamethasone, vitamin C, D and zinc and Eliquis 5 mg. Norvasc added for better blood pressure control today Objective - Vital Signs Vital signs: Vital Signs Temp 98.4 F 02/04/21 13:53 Pulse 77 02/04/21 13:53 Resp 18 02/04/21 13:53 BP 130/72 02/04/21 13:53 Pulse Ox 90 L 02/04/21 13:53 Intake & Output 02/03/21 02/04/21 02/04/21 18:59 06:59 18:59 Intake Total 60 Balance 60 Intake: Oral 60 Other: Voiding Method Bedpan # Voids 3 3 - Exam GENERAL: The patient is alert and oriented x3, not in any acute distress. Well developed, well nourished. HEENT: Pupils are round and equally reacting to light. EOMI. No scleral icterus. No conjunctival pallor. Normocephalic, atraumatic. No pharyngeal erythema. No th yromegaly. CARDIOVASCULAR: S1 and S2 present. No murmurs, rubs, or gallops. PULMONARY: Chest is clear to auscultation, no wheezing or crackles. ABDOMEN: Soft, nontender, nondistended, normoactive bowel sounds. No palpable organomegaly. MUSCULOSKELETAL: No joint swelling or deformity. EXTREMITIES: No cyanosis, clubbing, or pedal edema. NEUROLOGICAL: Gross neurological examination did not reveal any focal deficits. SKIN: No rashes. no petechiae. - Labs CBC & Chem 7: 02/03/21 06:22 02/03/21 06:22 Labs: Abnormal Lab Results - Last 24 Hours (Table) 02/04/21 02/04/21 Range/Units 05:41 05:41 D-Dimer 6.83 H (<0.60) mg/L FEU Lactate Dehydrogenase 3527 H (313-618) U/L C-Reactive Protein 41.8 H (<10.0) mg/L Microbiology - Last 24 Hours (Table) 01/30/21 13:15 Blood Culture - Preliminary Blood No Growth after 96 hours 01/30/21 13:35 Blood Culture - Preliminary Blood No Growth after 96 hours Assessment and Plan Assessment: acute bilateral covid pneumonia Acute hypoxic respiratory failure secondary to above, on chronic hypoxic respiratory failure Elevated inflammatory markers Covid gastroenteritis and hepatitis Elevated d-dimer with negative CTPA for pulmonary embolism. Patient is already on Eliquis Atrial fibrillation with history of stroke, on Eliquis History of coronary artery disease COPD, not in acute exacerbation Chronic hypoxic respiratory failure on 2 L of oxygen via nasal cannula History of GERD Hyperlipidemia Osteoarthritis Chronic low back pain Plan: this is a pleasant 65 years old female who presents with Covid pneumonia and hypoxia. Continue with Eliquis and dexamethasone, start the patient on vitamin C, vitamin D and zinc. Pulmonary team evaluated the patient who decided patient is outside the window for remdesivir. Monitored liver enzymes Labs and medication were reviewed.. Continue same treatment. Continue with symptomatic treatment. Resume home medication. Monitor lytes and vitals. DVT and GI prophylaxis. Further recommendationsas per clinical course of the patient DVT prophylaxis: Eliquis GI Prophylaxis: Ppi PT/OT: Pending Prognosis is guarded
[2021-02-05] MEDS: dexAMETHasone 2 MG TAB PO SCH (07:41)
[2021-02-05] MEDS: ZINC SULFATE 220 MG CAP PO SCH (07:41)
[2021-02-05] MEDS: ASCORBIC ACID 500 MG TAB PO SCH ×2 (07:42→20:20)
[2021-02-05] MEDS: AMIODARONE 200 MG TAB PO SCH ×2 (07:42→20:21)
[2021-02-05] MEDS: PANTOPRAZOLE 40 MG/10 ML VIAL IVP SCH (07:42)
[2021-02-05] MEDS: lisinopriL 5 MG TAB PO SCH (07:42)
[2021-02-05] MEDS: amLODIPine 5 MG TAB PO SCH (07:42)
[2021-02-05] MEDS: APIXABAN 5 MG TAB PO SCH ×2 (07:42→20:20)
[2021-02-05] MEDS: CHOLECALCIFEROL 25 MCG (1000 IU) TABLET PO SCH (07:42)
[2021-02-05] MEDS: ALBUTEROL HFA INHALER INHALATION SCH ×4 (07:50→21:29)
[2021-02-05] MEDS: SYMBICORT 160-4.5 MCG INHALER INHALATION SCH ×2 (07:50→21:29)
--- NOTE | 2021-02-05 12:50 | P.PN ---
Subjective Progress Note Date: 02/05/21 65-year-old white female patient who is familiar to our service from her previous history of hospitalizations for complications related to her underlying history of COPD stage III, on home oxygen. She follows with Dr. Artis in the pulmonary clinic. She is normally on 2 L of oxygen on a regular basis, patient had recent hospitalization for acute exacerbation of COPD complicated by purulent tracheal bronchitis. Her other medical history significant for hypertension, history of A. fib, previous history of CVA, MS, osteoarthritis, previous history of brain aneurysm with clipping, and previous history of smoking. She was discharged home on 01/17/2021, and was feeling well for a while, last week on she started feeling worse, denied any worsening dyspnea, she is chronically short of breath and that did not seem to get any worse, however she is feeling very weak, she developed profuse diarrhea which she states is uncontrollable, and overall she feels quite rundown. She is also having some chest discomfort in the anterior sternal area which is worse with coughing and moving around, and some abdominal tenderness in the right upper and lower quadrants, but no nausea or vomiting, abdomen is soft. Chest x-ray in the emergency department shows COPD interstitial pneumonitis small bilateral pleural effusions, and a basilar consolidation. COVID 19 PCR was positive. Admission labs showed white blood cell count 5.4, hemoglobin is 12.7, platelet count is 60, d-dimer was increased at 9.7 to the patient is on Eliquis on a regular basis for history of A. fib, CTA chest was completed, however there was breathing motion artifact, but no evidence of large central or lobar branch pulmonary embolus, many segmental and more distal arterial branches were nondiagnostic, there were multifocal bilateral patchy and confluent groundglass opacities and a trace pleural effusions. There was a small hiatal hernia. Her enzymes were significantly elevated and ultrasound of the gallbladder was completely showing hepatomegaly, and sludge within the gallbladder. Currently patient is up to 8 L of oxygen, her pulse ox is 93%, hemodynamically she stable, she is in sinus mechanism, slightly tachycardic on the monitor. Troponin was 0.021. Her inflammatory markers were significantly elevated with LDH of 4970, and CRP is 203.5. AST was 1441, and ALT was 2054, total bilirubin was 0.9, and alk phos was 79. Urinalysis was positive for 2+ protein, nitrates, many bacteria. She is on Rocephin for empiric coverage, hepatitis panel was nonreactive, Tylenol level was less than 10. Amylase and lipase were negative at 43 and 53 respectively. Patient was started on Decadron 6 milligram daily, her Eliquis continues, and patient is on amiodarone and Lipitor. Stool for C. diff has been ordered, cultures have been sent Reevaluated today on 02/01/21, patient seems to be doing fairly well, her O2 saturations 91% on 2 L nasal cannula. Patient was on 8 L on admission. Patient is normally on oxygen and home, she does have underlying COPD. Remains on the Covid 19 cocktail. Remains on bronchodilators. Patient did not receive REM mostly because of her liver enzymes being quite elevated. Remain elevated today but trending admitted down especially her ALT is down to 1798 from 2053 Patient was reevaluated today on 02/02/2021, remains on high flow oxygen, now she is on 8 L, O2 sats is ranging anywhere between 91% up to 97%. Today it is 94%. Patient looks comfortable, not in any distress. No labs were drawn today, but her labs from yesterday were reviewed, liver enzymes are improving a bit with ALT down to 1534 and AST is down to 758. Her last CT angiogram was on 01/31 which I have noted above. On 02/03/2021 patient seen in follow-up on medical floor, she is currently at 8 L of oxygen pulse ox is 91%, she is doing better, her LDH and CRP remain elevated but improving, her cough has improved, she started to bring up some yellowish colored phlegm, no hemoptysis, pro-calcitonin was 0.22, she is currently on oral Decadron, she continues on Robitussin, she is on inhalers, she is on oral anticoagulation in the form of Eliquis for her history of A. fib. Her liver enzymes were starting to improve. No acute events overnight. Patient was not a candidate for Remdesivir related to elevated liver enzymes. She continues on supportive treatment. On 02/04/2021, the patient is on 10 L of oxygen by nasal cannula. She is known to have COPD and the patient also was diagnosed having Covid associated pneumonia. The patient is chest x-ray showed stable bilateral pulmonary inf iltrates. Last x-ray was done today and the patient is infiltration of the lung bases bilaterally and there is some interval progression and worsening of the lower lobe pulmonary infiltrates. The patient had some abnormal LFTs and transaminitis. For that reason, the patient was not given Remdesivir and she received steroids and the patient is on Decadron 6 mg on a daily basis. The patient also has chronic atrial fibrillation. She remains on amiodarone. She remains on long-term and to coagulation with Eliquis. In terms of the inflammatory markers, the LDH is elevated at 3527 with a CRP of 41. The patient also has significant elevation of the liver function tests which improved. I think it's reasonable to repeat the LFTs. The patient had a d-dimer of 6.83. CT angiogram that was done at time of admission showed no evidence of any pulmonary embolism. There was however bilateral pulmonary infiltrates and motion artifact in addition to patchy bibasilar airspace / groundglass changes in addition to background COPD. On today's evaluation of 02/05/2021, I'm seeing the patient for a follow-up. She is a case of COVID 19 related pneumonia. The patient is currently on 10 L of oxygen by nasal cannula. She remains on Decadron 6 mg by mouth daily. She also has COPD. She has history of atrial fibrillation.. The patient has been on long-term anticoagulation with Eliquis regarding her chronic atrial fibrillation. She is weak. She has limited reserve as the patient desaturates with activity. She needs help for moving around and she was able to go to the bathroom with the help of nursing staff and this made her quite hypoxic. D- dimer is at 6, LDH level was 3527 from yesterday in addition to a CRP of 41. LEVEL IS AT 0.22. MOST RECENT CHEST X-RAYS FROM YESTERDAY THERE IS STILL SHOWING PATCHY BILATERAL AIRSPACE DISEASE AND GROUNDGLASS PULMONARY CHANGES IN ADDITION TO SOME BACKGROUND COPD. Objective - Vital Signs Vital signs: Vital Signs Temp 98.5 F 02/05/21 10:00 Pulse 66 02/05/21 10:00 Resp 18 02/05/21 10:00 BP 140/65 02/05/21 10:00 Pulse Ox 93 L 02/05/21 10:00 Intake & Output 02/04/21 02/05/21 02/05/21 18:59 06:59 18:59 Intake Total 60 Balance 60 Intake: Oral 60 Other: Voiding Method Bedpan # Voids 3 4 3 - Exam GENERAL EXAM: Alert, pleasant, 65-year-old white female, currently on 10 L of oxygen, with a pulse ox of 91-93% HEAD: Normocephalic/atraumatic. EYES: Normal reaction of pupils, equal size. Conjunctiva pink, sclera white. NOSE: Clear with pink turbinates. THROAT: No erythema or exudates. NECK: No masses, no JVD, no thyroid enlargement, no adenopathy. CHEST: No chest wall deformity. Symmetrical expansion. LUNGS: Equal air entry with bilateral crackles CVS: Regular rate and rhythm, normal S1 and S2, no gallops, no murmurs, no rubs ABDOMEN: Soft, nontender. No hepatosplenomegaly, normal bowel sounds, no guarding or rigidity. Mild tenderness with palpation in the right upper and lower quadrant EXTREMITIES: No clubbing, no edema, no cyanosis, 2+ pulses and upper and lower extremities. MUSCULOSKELETAL: Muscle strength and tone normal. SPINE: No scoliosis or deformity SKIN: No rashes CENTRAL NERVOUS SYSTEM: Alert and oriented -3. No focal deficits, tone is normal in all 4 extremities. PSYCHIATRIC: Alert and oriented -3. Appropriate affect. Intact judgment and insight. - Labs CBC & Chem 7: 02/03/21 06:22 02/03/21 06:22 Labs: Abnormal Lab Results - Last 24 Hours (Table) 02/05/21 Range/Units 05:32 D-Dimer 6.00 H (<0.60) mg/L FEU Microbiology - Last 24 Hours (Table) 01/30/21 13:35 Blood Culture - Preliminary Blood No Growth after 120 hours 01/30/21 13:15 Blood Culture - Preliminary Blood No Growth after 120 hours Assessment and Plan Plan: #1. Acute on chronic hypoxic respiratory failure related to acute COVID 19 pneumonia, patient's symptoms started last week on with 7 days of presentation, she tested positive on 01/30/2021 in the emergency department chest x-ray from today showing some interval worsening in the lower lobe pulmonary infiltrates and the patient is currently on 10 L about 2 by nasal cannula. The patient remains on oral Decadron 6 mg by mouth daily. Overall condition is stable and unchanged compared to yesterday with limited reserve and every desaturations of oxygen with activity. We started on today's evaluation s he is having significant COPD exacerbation of bronchospasm wheezing. We decided to switch her steroids IV Solu-Medrol. #2. Recent hospitalization for acute exacerbation of COPD, was negative for CO VID 19 at that time, discharged home on 01/17/2021 #3. Elevated transaminases, possibly related to acute COVID 19 infection, lipase and amylase were negative, gallbladder ultrasound showing some sludge, gallbladder lorenzana within normal limits #4. Elevated d-dimer, patient is on Eliquis for history of A. fib, no evidence of PE on the CT chest #5. Possible urinary tract infection, send a urine culture #6. Diarrhea, rule out C. diff #7. History of COPD, stage III at baseline, with chronic hypoxic respiratory failure #8. Significantly elevated inflammatory markers related to COVID 19 #9. History of A. fib on Eliquis #10. Myocardial infarction #11. History of brain aneurysm with clippings #12, medical debility and generalized weakness. #13. DJD Plan: Continue steroids in the form of IV Solu-Medrol and stop the Decadron Continue Symbicort and Monitor LFTs Monitor inflammatory markers, monitor LFTs in a.m. Attempt to wean down the FiO2 currently on 10 L Eliquis 5 mg by mouth twice a day Liver function tests tomorrow, levels were down trending We'll continue to follow no other changes from the pulmonary standpoint on today's evaluation.
[2021-02-05] MEDS: ACETAMINOPHEN TAB 325 MG TAB PO PRN (14:04)
[2021-02-05 14:23] LABS: African American GFR (CKD) 112.4 (60.0-200.0); Albumin 2.9 g/dL (3.80-4.90); Albumin/Globulin Ratio 1.81 (1.60-3.17); Anion Gap 8.1 mmol/L (4.00-12.00); BUN/Creat Ratio 31.67 Ratio (12.00-20.00); Calcium 8.1 mg/dL (8.7-10.3); Carbon Dioxide 30.9 mmol/L (21.6-31.8); Globulin 1.6 g/dL (1.6-3.3); Potassium 4.6 mmol/L (3.5-5.5); Total Bilirubin 0.8 mg/dL (0.2-1.2); Total Protein 4.5 g/dL (6.2-8.2)
[2021-02-05] MEDS: methylPREDNISolone SOD SUCCI 125 MG/2 ML VIAL IV SCH ×2 (17:05→23:52)
[2021-02-05] MEDS: MONTELUKAST 10 MG TAB PO SCH (20:20)
[2021-02-05] MEDS: ATORVASTATIN 80 MG TAB PO SCH (20:20)
--- NOTE | 2021-02-05 21:44 | PN ---
PROGRESS NOTE DATE OF SERVICE: 02/05/2021 REASON FOR FOLLOWUP: COVID-19 infection. INTERVAL HISTORY: The patient is afebrile. She is breathing slightly comfortably, still requiring 10 L high-flow oxygen. Denies having any chest pain. She still has a cough with occasional sputum that is yellow. No hemoptysis. No nausea, no vomiting, no abdominal pain or diarrhea. PHYSICAL EXAMINATION: Blood pressure is 142/76, pulse of 69, temperature of 99.5. She is 94% on 10 L high- flow oxygen. General description is a middle-aged female lying in bed in no distress. RESPIRATORY SYSTEM: Unlabored breathing with decreased intensity of breath sounds. No wheeze. HEART: S1, S2. Regular rate and rhythm. ABDOMEN: Soft. No tenderness. LABS: D-dimer is 6, down from yesterday at 6.83. BUN of 19, creatinine 0.60. DIAGNOSTIC IMPRESSION AND PLAN: Patient with acute COVID-19 infection in this patient who has shown some clinical improvement, though minimal. Patient to continue with Eliquis, zinc, Solu-Medrol and monitor clinical course closely. Continue with supportive care. MMODL / IJN: [id number] /
[2021-02-06] MEDS: methylPREDNISolone SOD SUCCI 125 MG/2 ML VIAL IV SCH ×3 (06:01→17:15)
[2021-02-06] MEDS: PANTOPRAZOLE 40 MG TABLET PO SCH (07:09)
[2021-02-06] MEDS: APIXABAN 5 MG TAB PO SCH ×2 (07:09→20:45)
[2021-02-06] MEDS: lisinopriL 5 MG TAB PO SCH (07:09)
[2021-02-06] MEDS: AMIODARONE 200 MG TAB PO SCH ×2 (07:09→20:45)
[2021-02-06] MEDS: amLODIPine 5 MG TAB PO SCH (07:09)
[2021-02-06] MEDS: ASCORBIC ACID 500 MG TAB PO SCH ×2 (07:09→20:45)
[2021-02-06] MEDS: CHOLECALCIFEROL 25 MCG (1000 IU) TABLET PO SCH (07:09)
[2021-02-06] MEDS: ZINC SULFATE 220 MG CAP PO SCH (07:09)
[2021-02-06] MEDS: ALBUTEROL HFA INHALER INHALATION SCH ×4 (08:46→21:47)
[2021-02-06] MEDS: SYMBICORT 160-4.5 MCG INHALER INHALATION SCH ×2 (08:46→21:47)
[2021-02-06 11:58] LABS: HCT 36.6 % (37.2-46.3); HGB 11.3 g/dL (12.0-15.0); MCH 26.5 pg (27.0-32.0); MCHC 30.9 g/dL (32.0-37.0); MCV 85.9 fL (80.0-97.0); Mean Platelet Volume 11.1 fL (9.5-12.2); Platelet Count 310 X 10*3/uL (140-440); RBC 4.26 X 10*6/uL (4.10-5.20); RDW 16.6 % (11.5-14.5); WBC 8.33 X 10*3/uL (4.50-10.00)
[2021-02-06 12:56] LABS: African American GFR (CKD) 112.4 (60.0-200.0); Albumin/Globulin Ratio 1.67 (1.60-3.17); Anion Gap 8.6 mmol/L (4.00-12.00); BUN/Creat Ratio 36.67 Ratio (12.00-20.00); C Reactive Protein 4.2 mg/dL (0.0-0.8); Calcium 8.4 mg/dL (8.7-10.3); Carbon Dioxide 28.4 mmol/L (21.6-31.8); Globulin 1.8 g/dL (1.6-3.3); Potassium 4.7 mmol/L (3.5-5.5); Total Bilirubin 0.7 mg/dL (0.3-1.2); Total Protein 4.8 g/dL (6.2-8.2)
[2021-02-06 13:57] LABS: Basophils # (M) 0 X 10*3/uL (0.00-0.10); Eosinophils # (M) 0 X 10*3/uL (0.04-0.35); Lymphocytes # (M) 0.17 X 10*3/uL (0.90-5.00); Metamyelocytes % 3 % (0-0); Monocytes # (M) 0.25 X 10*3/uL (0.20-1.00); Myelocytes % 5 % (0-0); Neutrophils # (M) 7.25 X 10*3/uL (2.00-8.90); Neutrophils % (M) 87 %
[2021-02-06 15:11] VITALS: BMI 28.1
--- NOTE | 2021-02-06 15:41 | XR ---
EXAMINATION TYPE: XR chest 1V portable DATE OF EXAM: 02/06/2021 COMPARISON: Chest x-ray 02/04/2021 HISTORY: Covid infection, abnormal chest x-ray TECHNIQUE: Single frontal view of the chest is obtained. FINDINGS: Bilateral airspace disease is again noted, the interstitium is prominent. No evident pneum othorax or pleural effusion. Cardiac mediastinal silhouette is stable. Post procedural change noted t o the proximal left humerus. IMPRESSION: Correlate for pneumonia.
--- NOTE | 2021-02-06 16:59 | P.PN ---
Subjective Progress Note Date: 02/06/21 Principal diagnosis: Acute on chronic hypoxic respiratory failure secondary to acute COVID 19 pneumonia and history of underlying COPD 65-year-old white female patient who is familiar to our service from her previous history of hospitalizations for complications related to her underlying history of COPD stage III, on home oxygen. She follows with Dr. Artis in the pulmonary clinic. She is normally on 2 L of oxygen on a regular basis, patient had recent hospitalization for acute exacerbation of COPD complicated by purulent tracheal bronchitis. Her other medical history significant for hypertension, history of A. fib, previous history of CVA, CO, osteoarthritis, previous history of brain aneurysm with clipping, and previous history of smoking. She was discharged home on 01/17/2021, and was feeling well for a while, last week on she started feeling worse, denied any worsening dyspnea, she is chronically short of breath and that did not seem to get any w orse, however she is feeling very weak, she developed profuse diarrhea which she states is uncontrollable, and overall she feels quite rundown. She is also having some chest discomfort in the anterior sternal area which is worse with coughing and moving around, and some abdominal tenderness in the right upper and lower quadrants, but no nausea or vomiting, abdomen is soft. Chest x-ray in the emergency department shows COPD interstitial pneumonitis small bilateral pleural effusions, and a basilar consolidation. COVID 19 PCR was positive. Admission labs showed white blood cell count 5.4, hemoglobin is 12.7, platelet count is 60, d-dimer was increased at 9.7 to the patient is on Eliquis on a regular basis for history of A. fib, CTA chest was completed, however there was breathing motion artifact, but no evidence of large central or lobar branch pulmonary embolus, many segmental and more distal arterial branches were nondiagnostic, there were multifocal bilateral patchy and confluent groundglass opacities and a trace pleural effusions. There was a small hiatal hernia. Her enzymes were significantly elevated and ultrasound of the gallbladder was completely showing hepatomegaly, and sludge within the gallbladder. Currently patient is up to 8 L of oxygen, her pulse ox is 93%, hemodynamically she stable, she is in sinus mechanism, slightly tachycardic on the monitor. Troponin was 0.021. Her inflammatory markers were significantly elevated with LDH of 4970, and CRP is 203.5. AST was 1441, and ALT was 2053, total bilirubin was 0.9, and alk phos was 79. Urinalysis was positive for 2+ protein, nitrates, many bacteria. She is on Rocephin for empiric coverage, hepatitis panel was nonreactive, Tylenol level was less than 10. Amylase and lipase were negative at 43 and 53 re spectively. Patient was started on Decadron 6 milligram daily, her Eliquis continues, and patient is on amiodarone and Lipitor. Stool for C. diff has been ordered, cultures have been sent Reevaluated today on 02/01/21, patient seems to be doing fairly well, her O2 saturations 91% on 2 L nasal cannula. Patient was on 8 L on admission. Patient is normally on oxygen and home, she does have underlying COPD. Remains on the Covid 19 cocktail. Remains on bronchodilators. Patient did not receive REM mostly because of her liver enzymes being quite elevated. Remain elevated today but trending admitted down especially her ALT is down to 1798 from 2053 Patient was reevaluated today on 02/02/2021, remains on high flow oxygen, now she is on 8 L, O2 sats is ranging anywhere between 91% up to 97%. Today it is 94%. Patient looks comfortable, not in any distress. No labs were drawn today, but her labs from yesterday were reviewed, liver enzymes are improving a bit with ALT down to 1534 and AST is down to 758. Her last CT angiogram was on 01/31 which I have noted above. On 02/03/2021 patient seen in follow-up on medical floor, she is currently at 8 L of oxygen pulse ox is 91%, she is doing better, her LDH and CRP remain elevated but improving, her cough has improved, she started to bring up some yellowish colored phlegm, no hemoptysis, pro-calcitonin was 0.22, she is currently on oral Decadron, she continues on Robitussin, she is on inhalers, she is on oral anticoagulation in the form of Eliquis for her history of A. fib. Her liver enzymes were starting to improve. No acute events overnight. Patient was not a candidate for Remdesivir related to elevated liver enzymes. She cont inues on supportive treatment. On 02/06/2021 patient seen in follow-up on medical surgical floor, she continues to be on high flow oxygen chronically at 10 L, and her pulse ox is between 93- 98%, this can probably be weaned down. Appears to be breathing comfortably, she is afebrile, hemodynamically stable, no chest discomfort. Still has a cough with occasional sputum, no hemoptysis, no nausea vomiting or abdominal pain. She continues on Eliquis, Solu-Medrol, and multivitamins. She is clinically improving. Today's d-dimer is 5.46, electrolytes are unremarkable, liver enzymes are improving, AST is down to 305, ALT is 1001, alkaline phosphatase is 212, pro-calcitonin level is low at 0.22. She's had no fever or chills. No nausea vomiting or diarrhea. Objective - Vital Signs Vital signs: Vital Signs Temp 98.1 F 02/06/21 14:00 Pulse 63 02/06/21 14:00 Resp 21 02/06/21 14:00 BP 111/55 02/06/21 14:00 Pulse Ox 98 02/06/21 14:00 Intake & Output 02/05/21 02/06/21 02/06/21 18:59 06:59 18:59 Intake Total 460 Balance 460 Weight 81.647 kg Intake: Oral 460 Other: Voiding Method Bedpan # Voids 3 2 - Exam GENERAL EXAM: Alert, pleasant, 65-year-old white female, currently on 10 L of oxygen, with a pulse ox of 98% HEAD: Normocephalic/atraumatic. EYES: Normal reaction of pupils, equal size. Conjunctiva pink, sclera white. NOSE: Clear with pink turbinates. THROAT: No erythema or exudates. NECK: No masses, no JVD, no thyroid enlargement, no adenopathy. CHEST: No chest wall deformity. Symmetrical expansion. LUNGS: Equal air entry with bilateral crackles CVS: Regular rate and rhythm, normal S1 and S2, no gallops, no murmurs, no rubs ABDOMEN: Soft, nontender. No hepatosplenomegaly, normal bowel sounds, no guarding or rigidity. Mild tenderness with palpation in the right upper and lower quadrant EXTREMITIES: No clubbing, no edema, no cyanosis, 2+ pulses and upper and lower extremities. MUSCULOSKELETAL: Muscle strength and tone normal. SPINE: No scoliosis or deformity SKIN: No rashes CENTRAL NERVOUS SYSTEM: Alert and oriented -3. No focal deficits, tone is normal in all 4 extremities. PSYCHIATRIC: Alert and oriented -3. Appropriate affect. Intact judgment and insight. - Labs CBC & Chem 7: 02/06/21 06:37 02/06/21 06:37 Labs: Abnormal Lab Results - Last 24 Hours (Table) 02/06/21 02/06/21 02/06/21 Range/Units 06:37 06:37 06:37 Hgb 11.3 L (12.0-15.0) g/dL Hct 36.6 L (37.2-46.3) % MCH 26.5 L (27.0-32.0) pg MCHC 30.9 L (32.0-37.0) g/dL RDW 16.6 H (11.5-14.5) % Metamyelocytes % 3 H (0-0) % Myelocytes % 5 H (0-0) % Lymphocytes # (Manual) 0.17 L (0.90-5.00) X 10*3/uL Eosinophils # (Manual) 0 L (0.04-0.35) X 10*3/uL D-Dimer 5.46 H (<0.60) mg/L FEU BUN/Creatinine Ratio 36.67 H (12.00-20.00) Ratio Glucose 157 H (70-110) mg/dL Calcium 8.4 L (8.7-10.3) mg/dL AST 305 H (13-35) U/L ALT 1001 H (8-44) U/L Alkaline Phosphatase 212 H (41-126) U/L Lactate Dehydrogenase 717 H (120-246) U/L C-Reactive Protein 4.2 H (0.0-0.8) mg/dL Total Protein 4.8 L (6.2-8.2) g/dL Albumin 3.00 L (3.80-4.90) g/dL Microbiology - Last 24 Hours (Table) 01/30/21 13:15 Blood Culture - Final Blood No Growth after 144 hours 01/30/21 13:35 Blood Culture - Final Blood No Growth after 144 hours Assessment and Plan Plan: Assessment: #1. Acute on chronic hypoxic respiratory failure related to acute COVID 19 pneumonia, patient's symptoms started last week on with 7 days of presentation, she tested positive on 01/30/2021 in the emergency department #2. Recent hospitalization for acute exacerbation of COPD, was negative for COVID 19 at that time, discharged home on 01/17/2021 #3. Elevated transaminases, possibly related to acute COVID 19 infection, lipase and amylase were negative, gallbladder ultrasound showing some sludge, gallbladder lorenzana within normal limits #4. Elevated d-dimer, patient is on Eliquis for history of A. fib, no evidence of PE on the CT chest #5. Possible urinary tract infection, send a urine culture #6. Diarrhea, rule out C. diff #7. History of COPD, stage III at baseline, with chronic hypoxic respiratory failure #8. Significantly elevated inflammatory markers related to COVID 19 #9. History of A. fib on Eliquis #10. Myocardial infarction #11. History of brain aneurysm with clippings #12. DJD Plan: Continue current medical treatment, wean FiO2, clinically improving, chest x-ray has been reviewed showing stable bilateral lower lobe infiltrates. No acute events overnight, increase activity as tolerated, continue to follow d-dimer on a daily basis, continue oral anticoagulation, and IV Solu-Medrol. Continue to follow I performed a history & physical examination of the patient and discussed their management with my nurse practitioner, Darcy Mccartney. I reviewed the nurse practitioner's note and agree with the documented findings and plan of care. Lung sounds are positive for diminished breath sounds. The findings and the impression was discussed with the patient. I attest to the documentation by the nurse practitioner. Time with Patient: Less than 30
--- NOTE | 2021-02-06 18:11 | PN ---
PROGRESS NOTE DATE OF SERVICE: 02/06/2021 REASON FOR FOLLOWUP: COVID-19 pneumonia. INTERVAL HISTORY: The patient is afebrile. The patient is breathing slightly comfortably. The patient's FiO2 is down to 8 L. Denies having any chest pain. She continues to have a cough but no worsening. No abdominal pain or diarrhea. PHYSICAL EXAMINATION: Blood pressure 111/55, pulse of 63, temperature 98.1. She is 94% on 8 L nasal cannula. General description is a middle-aged female lying in bed in no distress. RESPIRATORY SYSTEM: Unlabored breathing. Clear to auscultation anteriorly. HEART: S1, S2. Regular rate and rhythm. ABDOMEN: Soft. No tenderness. LABS: Hemoglobin is 11.3, white count 8.33, BUN of 22, creatinine 0.6. DIAGNOSTIC IMPRESSION AND PLAN: Patient with acute COVID-19 infection in this patient who did not qualify for remdesivir because of elevated liver enzymes. The patient seems to have overall clinical improvement, currently on Eliquis, Solu-Medrol, zinc and ascorbic acid. Monitor clinical course closely. MMODL / IJN: [id number] /
[2021-02-06] MEDS: MONTELUKAST 10 MG TAB PO SCH (20:45)
[2021-02-06] MEDS: ATORVASTATIN 80 MG TAB PO SCH (20:45)
--- NOTE | 2021-02-06 23:33 | P.PN ---
Subjective Progress Note Date: 02/05/21 Principal diagnosis: Acute hypoxic respiratory failure secondary to Covid pneumonia this is a pleasant 65 yo F with past medical history of atrial fibrillation on eliquis, coronary artery disease, COPD ON home oxygen ( 2 L/m), and f/u with , she quit smoking last august 2020, GERD, hyperlipidemia, osteoartheritis , chronic low back pain ,involving left leg numbness , scoliosis and seasonal ALLERGIES. She presents with some tachypnea, and covered with phlegm for more than 6-7 days associated with diarrhea for 3 days. No chest pain or abdominal pain. No nausea vomiting. She is hypoxemic needing a liter of oxygen via nasal cannula, she has low grade temperature of 100.2. Lap showing mild pancytopenia with WBC 4.4K, hemoglobin 11.3 and platelet 84. D-dimer is elevated 9.7, sodium 135, potassium 3.4, liver enzymes are elevated with normal total bilirubin of 0.8, AST is 1446 and ALT 1798. Amylase and lipase are normal. Urine analysis is mildly abnormal most likely due to dehydration. Sputum cultures pending EKG shows sinus tachycardia at [address]-T changes. QTC is 557. CT of the chest is negative for PE, showing emphysema and patchy ground glass appearance CT on both lungs. Gallbladder ultrasound showing gallbladder sludge and hepatomegaly, acute hepatitis panel is negative She is currently started on dexamethasone, she is already on Eliquis. She received fluids in the emergency room 02/01/2021 Patient respiratory distress is mild. No chest pain, no cough, diarrhea stopped. Oxygen saturation is stable on 8 L/m of oxygen via nasal cannula. showing improvement liver enzymes however they're still elevated. Patient remains on Eliquis, dexamethasone and multiple vitamins protocol with. No remdesivir due to elevated enzymes. 02/02/2021 Patient as a level of dyspnea as yesterday. No significant cough or chest pain and her diarrhea stopped. Her oxygen requirement is the same at 8 L/m via high flow nasal cannula. No labs from today. Patient remains on dexamethasone 6 mg daily, 1 dose OF MEDROL IS ADMITTED TODAY BECAUSE SHE WAS WHEEZING IN THE MORNING. PATIENT IS KNOWN CASE OF COPD SHE IS ON HOME OXYGEN AT 2 L/M AND SHE FOLLOWS UP WITH DR. ELLIS IN THE OUTPATIENT SETTING. CHECK LABS TOMORROW INCLUDING INFLAMMATORY MARKERS Chief continue with dexamethasone, Eliquis, multiple vitamins protocol that. 02/03/2021 Patient still with some dyspnea and needing 8 L of oxygen per minute to keep her saturation above 90%. No chest pain or significant diarrhea. Patient still have some cough and treated symptomatically. Patient hemodynamically stable other than that. Her labs included significant improvement with CBC with normal WBC and platelet count, hemoglobin stable at 11. LDH is trending down slowly to 4001 and C-reactive protein improved to 57. Liver enzymes are trending down. Patient remains on Eliquis, dexamethasone and multiple vitamins for covid 02/04/2021 Patient today is limited more wheezy and dyspneic with oxygen saturation went up to 2 L/m via nasal cannula. Cele with no chest pain or significant diarrhea. She is coughing somewhat phlegm and she refuses cough medicine because she was to clear her lungs as she states. D-dimer is coming down 9.7 down to 6.8, slightly improving inflammatory markers with LDH down to 35-7 and C-reactive protein to 41 0.8. Pulmonary team, and to continue same medication and check LFTs in the morning Patient remains on dexamethasone, vitamin C, D and zinc and Eliquis 5 mg. Norvasc added for better blood pressure control today 02/05/2021 Patient is currently lying in the bed awake alert and oriented. Feeling anxio us. Still dyspneic with ambulation. No fever no chills. Currently on 10 L oxygen via nasal cannula. No complaints of chest pain. Patient is being continued on dexamethasone 6 mg daily and also anticoagulation with Eliquis due to chronic atrial fibrillation. Laboratory data showed AST 513, ALT 1252 and alk phos 203 and LDH was 3527. Pulmonary is on board. Current medications reviewed. Objective - Vital Signs Vital signs: Vital Signs Temp 97.4 F L 02/05/21 13:33 Pulse 66 02/05/21 13:33 Resp 19 02/05/21 13:33 BP 124/71 02/05/21 13:33 Pulse Ox 94 L 02/05/21 13:33 Intake & Output 02/04/21 02/05/21 02/05/21 18:59 06:59 18:59 Intake Total 60 Balance 60 Intake: Oral 60 Other: Voiding Method Bedpan # Voids 3 4 3 - Exam - Exam GENERAL: The patient is alert and oriented x3, not in any acute distress. Well developed, well nourished. HEENT: Pupils are round and equally reacting to light. EOMI. No scleral icterus. No conjunctival pallor. Normocephalic, atraumatic. No pharyngeal erythema. No thyromegaly. CARDIOVASCULAR: S1 and S2 present. No murmurs, rubs, or gallops. PULMONARY: Chest is clear to auscultation, no wheezing or crackles. ABDOMEN: Soft, nontender, nondistended, normoactive bowel sounds. No palpable organomegaly. MUSCULOSKELETAL: No joint swelling or deformity. EXTREMITIES: No cyanosis, clubbing, or pedal edema. NEUROLOGICAL: Gross neurological examination did not reveal any focal deficits. SKIN: No rashes. no petechiae. - Labs CBC & Chem 7: 02/06/21 06:37 02/06/21 06:37 Labs: Abnormal Lab Results - Last 24 Hours (Table) 02/05/21 02/05/21 Range/Units 05:32 05:32 D-Dimer 6.00 H (<0.60) mg/L FEU BUN/Creatinine Ratio 31.67 H (12.00-20.00) Ratio Calcium 8.1 L (8.7-10.3) mg/dL AST 513 H (13-35) U/L ALT 1252 H (8-44) U/L Alkaline Phosphatase 203 H (41-126) U/L Total Protein 4.5 L (6.2-8.2) g/dL Albumin 2.90 L (3.80-4.90) g/dL Microbiology - Last 24 Hours (Table) 01/30/21 13:15 Blood Culture - Final Blood No Growth after 144 hours 01/30/21 13:35 Blood Culture - Final Blood No Growth after 144 hours Assessment and Plan Assessment: acute bilateral covid pneumonia Acute hypoxic respiratory failure secondary to above, on chronic hypoxic respiratory failure Elevated inflammatory markers Covid gastroenteritis and hepatitis Elevated d-dimer with negative CTPA for pulmonary embolism. Patient is already on Eliquis Atrial fibrillation with history of stroke, on Eliquis History of coronary artery disease COPD, not in acute exacerbation Chronic hypoxic respiratory failure on 2 L of oxygen via nasal cannula History of GERD Hyperlipidemia Osteoarthritis Chronic low back pain Plan: this is a pleasant 65 years old female who presents with Covid pneumonia and hypoxia. Continue with Eliquis and dexamethasone, start the patient on vitamin C, vitamin D and zinc. Pulmonary team evaluated the patient who decided patient is outside the window for remdesivir. Monitored liver enzymes Labs and medication were reviewed..Continue with symptomatic treatment. Resume home medication. Monitor lytes and vitals. DVT and GI prophylaxis. Further recommendationsas per clinical course of the patient DVT prophylaxis: Eliquis GI Prophylaxis: Ppi PT/OT: Pending Prognosis is guarded Time with Patient: Greater than 30
--- NOTE | 2021-02-06 23:36 | P.PN ---
Subjective Progress Note Date: 02/06/21 Principal diagnosis: Acute hypoxic respiratory failure secondary to Covid pneumonia this is a pleasant 65 yo F with past medical history of atrial fibrillation on eliquis, coronary artery disease, COPD ON home oxygen ( 2 L/m), and f/u with , she quit smoking last august 2020, GERD, hyperlipidemia, osteoartheritis , chronic low back pain ,involving left leg numbness , scoliosis and seasonal ALLERGIES. She presents with some tachypnea, and covered with phlegm for more than 6-7 days associated with diarrhea for 3 days. No chest pain or abdominal pain. No nausea vomiting. She is hypoxemic needing a liter of oxygen via nasal cannula, she has low grade temperature of 100.2. Lap showing mild pancytopenia with WBC 4.4K, hemoglobin 11.3 and platelet 84. D-dimer is elevated 9.7, sodium 135, potassium 3.4, liver enzymes are elevated with normal total bilirubin of 0.8, AST is 1446 and ALT 1798. Amylase and lipase are normal. Urine analysis is mildly abnormal most likely due to dehydration. Sputum cultures pending EKG shows sinus tachycardia at [address]-T changes. QTC is 557. CT of the chest is negative for PE, showing emphysema and patchy ground glass appearance CT on both lungs. Gallbladder ultrasound showing gallbladder sludge and hepatomegaly, acute hepatitis panel is negative She is currently started on dexamethasone, she is already on Eliquis. She received fluids in the emergency room 02/01/2021 Patient respiratory distress is mild. No chest pain, no cough, diarrhea stopped. Oxygen saturation is stable on 8 L/m of oxygen via nasal cannula. showing improvement liver enzymes however they're still elevated. Patient remains on Eliquis, dexamethasone and multiple vitamins protocol with. No remdesivir due to elevated enzymes. 02/02/2021 Patient as a level of dyspnea as yesterday. No significant cough or chest pain and her diarrhea stopped. Her oxygen requirement is the same at 8 L/m via high flow nasal cannula. No labs from today. Patient remains on dexamethasone 6 mg daily, 1 dose OF MEDROL IS ADMITTED TODAY BECAUSE SHE WAS WHEEZING IN THE MORNING. PATIENT IS KNOWN CASE OF COPD SHE IS ON HOME OXYGEN AT 2 L/M AND SHE FOLLOWS UP WITH DR. ELLIS IN THE OUTPATIENT SETTING. CHECK LABS TOMORROW INCLUDING INFLAMMATORY MARKERS Chief continue with dexamethasone, Eliquis, multiple vitamins protocol that. 02/03/2021 Patient still with some dyspnea and needing 8 L of oxygen per minute to keep her saturation above 90%. No chest pain or significant diarrhea. Patient still have some cough and treated symptomatically. Patient hemodynamically stable other than that. Her labs included significant improvement with CBC with normal WBC and platelet count, hemoglobin stable at 11. LDH is trending down slowly to 4001 and C-reactive protein improved to 57. Liver enzymes are trending down. Patient remains on Eliquis, dexamethasone and multiple vitamins for covid 02/04/2021 Patient today is limited more wheezy and dyspneic with oxygen saturation went up to 2 L/m via nasal cannula. Cele with no chest pain or significant diarrhea. She is coughing somewhat phlegm and she refuses cough medicine because she was to clear her lungs as she states. D-dimer is coming down 9.7 down to 6.8, slightly improving inflammatory markers with LDH down to 35-7 and C-reactive protein to 41 0.8. Pulmonary team, and to continue same medication and check LFTs in the morning Patient remains on dexamethasone, vitamin C, D and zinc and Eliquis 5 mg. Norvasc added for better blood pressure control today 02/05/2021 Patient is currently lying in the bed awake alert and oriented. Feeling anxio us. Still dyspneic with ambulation. No fever no chills. Currently on 10 L oxygen via nasal cannula. No complaints of chest pain. Patient is being continued on dexamethasone 6 mg daily and also anticoagulation with Eliquis due to chronic atrial fibrillation. Laboratory data showed AST 513, ALT 1252 and alk phos 203 and LDH was 3527. Pulmonary is on board. 02/06/2021 Patient is lying in the bed awake alert and oriented. Still requiring high flow oxygen at 10 L via nasal cannula. Patient states that she feels slightly better today. Still having exertional dyspnea. No complaints of fever or chills. No cough or sputum production. No nausea vomiting abdominal pain or diarrhea. Patient being continued on dexamethasone and Eliquis for chronic atrial fibrillation. Laboratory data showed D-dimer 5.46 and AST 305 ALT 1001 and alk phos 212 and LDH trending down to 717 and CRP is 4.2 today. Pulmonary and ID is following. Chest x-ray showed correlate for pneumonia. Current medications reviewed. Objective - Vital Signs Vital signs: Vital Signs Temp 98.7 F 02/06/21 17:56 Pulse 73 02/06/21 19:52 Resp 17 02/06/21 19:52 BP 141/58 02/06/21 17:56 Pulse Ox 93 L 02/06/21 17:56 Intake & Output 02/06/21 02/06/21 02/07/21 06:59 18:59 06:59 Intake Total 460 Balance 460 Weight 81.647 kg Intake: Oral 460 Other: Voiding Method Bedpan Bedpan # Voids 2 - Exam - Exam GENERAL: The patient is alert and oriented x3, not in any acute distress. Well developed, well nourished. HEENT: Pupils are round and equally reacting to light. EOMI. No scleral icterus. No conjunctival pallor. Normocephalic, atraumatic. No pharyngeal erythema. No thyromegaly. CARDIOVASCULAR: S1 and S2 present. No murmurs, rubs, or gallops. PULMONARY: Chest is clear to auscultation, no wheezing or crackles. ABDOMEN: Soft, nontender, nondistended, normoactive bowel sounds. No palpable organomegaly. MUSCULOSKELETAL: No joint swelling or deformity. EXTREMITIES: No cyanosis, clubbing, or pedal edema. NEUROLOGICAL: Gross neurological examination did not reveal any focal deficits. SKIN: No rashes. no petechiae. - Labs CBC & Chem 7: 02/06/21 06:37 02/06/21 06:37 Labs: Abnormal Lab Results - Last 24 Hours (Table) 02/06/21 02/06/21 02/06/21 Range/Units 06:37 06:37 06:37 Hgb 11.3 L (12.0-15.0) g/dL Hct 36.6 L (37.2-46.3) % MCH 26.5 L (27.0-32.0) pg MCHC 30.9 L (32.0-37.0) g/dL RDW 16.6 H (11.5-14.5) % Metamyelocytes % 3 H (0-0) % Myelocytes % 5 H (0-0) % Lymphocytes # (Manual) 0.17 L (0.90-5.00) X 10*3/uL Eosinophils # (Manual) 0 L (0.04-0.35) X 10*3/uL D-Dimer 5.46 H (<0.60) mg/L FEU BUN/Creatinine Ratio 36.67 H (12.00-20.00) Ratio Glucose 157 H (70-110) mg/dL Calcium 8.4 L (8.7-10.3) mg/dL AST 305 H (13-35) U/L ALT 1001 H (8-44) U/L Alkaline Phosphatase 212 H (41-126) U/L Lactate Dehydrogenase 717 H (120-246) U/L C-Reactive Protein 4.2 H (0.0-0.8) mg/dL Total Protein 4.8 L (6.2-8.2) g/dL Albumin 3.00 L (3.80-4.90) g/dL Assessment and Plan Assessment: acute bilateral covid pneumonia Acute hypoxic respiratory failure secondary to above, on chronic hypoxic respiratory failure Elevated inflammatory markers Covid gastroenteritis and hepatitis Elevated d-dimer with negative CTPA for pulmonary embolism. Patient is already on Eliquis Atrial fibrillation with history of stroke, on Eliquis History of coronary artery disease COPD, not in acute exacerbation Chronic hypoxic respiratory failure on 2 L of oxygen via nasal cannula History of GERD Hyperlipidemia Osteoarthritis Chronic low back pain Plan: this is a pleasant 65 years old female who presents with Covid pneumonia and hypoxia. Continue with Eliquis and dexamethasone, c/w vitamin C, vitamin D and zinc. Pulmonary team evaluated the patient who decided patient is outside the window for remdesivir. Monitored liver enzymes Labs and medication were reviewed..Continue with symptomatic treatment. Resume home medication. Monitor lytes and vitals. DVT and GI prophylaxis. Further recommendationsas per clinical course of the patient DVT prophylaxis: Eliquis GI Prophylaxis: Ppi PT/OT: Pending Prognosis is guarded Time with Patient: Greater than 30
[2021-02-07] MEDS: methylPREDNISolone SOD SUCCI 125 MG/2 ML VIAL IV SCH ×5 (00:20→23:26)
[2021-02-07] MEDS: APIXABAN 5 MG TAB PO SCH ×2 (07:21→19:43)
[2021-02-07] MEDS: ASCORBIC ACID 500 MG TAB PO SCH ×2 (07:21→19:44)
[2021-02-07] MEDS: lisinopriL 5 MG TAB PO SCH (07:21)
[2021-02-07] MEDS: amLODIPine 5 MG TAB PO SCH (07:21)
[2021-02-07] MEDS: ZINC SULFATE 220 MG CAP PO SCH (07:21)
[2021-02-07] MEDS: PANTOPRAZOLE 40 MG TABLET PO SCH (07:21)
[2021-02-07] MEDS: CHOLECALCIFEROL 25 MCG (1000 IU) TABLET PO SCH (07:21)
[2021-02-07] MEDS: AMIODARONE 200 MG TAB PO SCH ×2 (07:21→19:43)
[2021-02-07] MEDS: SYMBICORT 160-4.5 MCG INHALER INHALATION SCH ×2 (07:38→20:44)
[2021-02-07] MEDS: ALBUTEROL HFA INHALER INHALATION SCH ×4 (07:38→20:44)
[2021-02-07 09:36] LABS: Basophils # (A) 0.1 k/uL (0-0.2); Basophils % (A) 0 %; Eosinophils % (A) 0 %; HCT 39.1 % (34.0-46.0); HGB 12.1 gm/dL (11.4-16.0); Lymphocytes # (A) 0.8 k/uL (1.0-4.8); Lymphocytes % (A) 5 %; MCH 26.4 pg (25.0-35.0); MCHC 30.8 g/dL (31.0-37.0); MCV 85.6 fL (80.0-100.0); Mean Platelet Volume 7.8; Monocytes # (A) 0.5 k/uL (0-1.0); Monocytes % (A) 3 %; Neutrophils # (A) 13.3 k/uL (1.3-7.7); Neutrophils % (A) 89 %; RBC 4.57 m/uL (3.80-5.40); WBC 14.8 k/uL (3.8-10.6)
[2021-02-07 09:41] LABS: Platelet Count 418 k/uL (150-450)
[2021-02-07 09:44] LABS: AST 332 U/L (14-36); African American GFR (CKD) >90 (>60 ml/min/1.73 sqM); Albumin 2.6 g/dL (3.5-5.0); Alkaline Phosphatase 218 U/L (38-126); Anion Gap 3 mmol/L; Blood Urea Nitrogen 25 mg/dL (7-17); Calcium 8.5 mg/dL (8.4-10.2); Carbon Dioxide 34 mmol/L (22-30); Chloride 100 mmol/L (98-107); Globulin 2.5 g/dL; Glucose 164 mg/dL (74-99); Non-African American GFR(CKD) >90 (>60 ml/min/1.73 sqM); Potassium 4.7 mmol/L (3.5-5.1); Sodium 137 mmol/L (137-145); Total Bilirubin 0.6 mg/dL (0.2-1.3); Total Protein 5.1 g/dL (6.3-8.2)
[2021-02-07 10:05] LABS: ALT 905 U/L (4-34)
[2021-02-07] MEDS: ACETAMINOPHEN TAB 325 MG TAB PO PRN ×2 (14:01→19:43)
--- NOTE | 2021-02-07 14:38 | P.PN ---
Subjective Progress Note Date: 02/07/21 Principal diagnosis: Acute on chronic hypoxic respiratory failure secondary to acute COVID 19 pneumonia and history of underlying COPD 65-year-old white female patient who is familiar to our service from her previous history of hospitalizations for complications related to her underlying history of COPD stage III, on home oxygen. She follows with Dr. Artis in the pulmonary clinic. She is normally on 2 L of oxygen on a regular basis, patient had recent hospitalization for acute exacerbation of COPD complicated by purulent tracheal bronchitis. Her other medical history significant for hypertension, history of A. fib, previous history of CVA, [place], osteoarthritis, previous history of brain aneurysm with clipping, and previous history of smoking. She was discharged home on 01/17/2021, and was feeling well for a while, last week on she started feeling worse, denied any worsening dyspnea, she is chronically short of breath and that did not seem to get any w orse, however she is feeling very weak, she developed profuse diarrhea which she states is uncontrollable, and overall she feels quite rundown. She is also having some chest discomfort in the anterior sternal area which is worse with coughing and moving around, and some abdominal tenderness in the right upper and lower quadrants, but no nausea or vomiting, abdomen is soft. Chest x-ray in the emergency department shows COPD interstitial pneumonitis small bilateral pleural effusions, and a basilar consolidation. COVID 19 PCR was positive. Admission labs showed white blood cell count 5.4, hemoglobin is 12.7, platelet count is 60, d-dimer was increased at 9.7 to the patient is on Eliquis on a regular basis for history of A. fib, CTA chest was completed, however there was breathing motion artifact, but no evidence of large central or lobar branch pulmonary embolus, many segmental and more distal arterial branches were nondiagnostic, there were multifocal bilateral patchy and confluent groundglass opacities and a trace pleural effusions. There was a small hiatal hernia. Her enzymes were significantly elevated and ultrasound of the gallbladder was completely showing hepatomegaly, and sludge within the gallbladder. Currently patient is up to 8 L of oxygen, her pulse ox is 93%, hemodynamically she stable, she is in sinus mechanism, slightly tachycardic on the monitor. Troponin was 0.021. Her inflammatory markers were significantly elevated with LDH of 4970, and CRP is 203.5. AST was 1441, and ALT was 2053, total bilirubin was 0.9, and alk phos was 79. Urinalysis was positive for 2+ protein, nitrates, many bacteria. She is on Rocephin for empiric coverage, hepatitis panel was nonreactive, Tylenol level was less than 10. Amylase and lipase were negative at 43 and 53 re spectively. Patient was started on Decadron 6 milligram daily, her Eliquis continues, and patient is on amiodarone and Lipitor. Stool for C. diff has been ordered, cultures have been sent Reevaluated today on 02/01/21, patient seems to be doing fairly well, her O2 saturations 91% on 2 L nasal cannula. Patient was on 8 L on admission. Patient is normally on oxygen and home, she does have underlying COPD. Remains on the Covid 19 cocktail. Remains on bronchodilators. Patient did not receive REM mostly because of her liver enzymes being quite elevated. Remain elevated today but trending admitted down especially her ALT is down to 1798 from 2053 Patient was reevaluated today on 02/02/2021, remains on high flow oxygen, now she is on 8 L, O2 sats is ranging anywhere between 91% up to 97%. Today it is 94%. Patient looks comfortable, not in any distress. No labs were drawn today, but her labs from yesterday were reviewed, liver enzymes are improving a bit with ALT down to 1534 and AST is down to 758. Her last CT angiogram was on 01/31 which I have noted above. On 02/03/2021 patient seen in follow-up on medical floor, she is currently at 8 L of oxygen pulse ox is 91%, she is doing better, her LDH and CRP remain elevated but improving, her cough has improved, she started to bring up some yellowish colored phlegm, no hemoptysis, pro-calcitonin was 0.22, she is currently on oral Decadron, she continues on Robitussin, she is on inhalers, she is on oral anticoagulation in the form of Eliquis for her history of A. fib. Her liver enzymes were starting to improve. No acute events overnight. Patient was not a candidate for Remdesivir related to elevated liver enzymes. She cont inues on supportive treatment. On 02/06/2021 patient seen in follow-up on medical surgical floor, she continues to be on high flow oxygen chronically at 10 L, and her pulse ox is between 93- 98%, this can probably be weaned down. Appears to be breathing comfortably, she is afebrile, hemodynamically stable, no chest discomfort. Still has a cough with occasional sputum, no hemoptysis, no nausea vomiting or abdominal pain. She continues on Eliquis, Solu-Medrol, and multivitamins. She is clinically improving. Today's d-dimer is 5.46, electrolytes are unremarkable, liver enzymes are improving, AST is down to 305, ALT is 1001, alkaline phosphatase is 212, pro-calcitonin level is low at 0.22. She's had no fever or chills. No nausea vomiting or diarrhea. On 02/07/2021 patient seen in follow-up on medical surgical floor, she is improving, she is up in the chair, less bronchospastic less dyspneic, peripheral 6 L of oxygen, her pulse ox is 96%, this can probably be weaned little bit furth er, looks comfortable, breathing comfortably, denies any chest discomfort, no new chest x-ray today, today's labs have been noted, her last d-dimer from yesterday was still elevated although trending down at 5.46, BUN was 25, creatinine was 0.6, CO2 is 36, the rest of electrolytes were unremarkable, her LDH was also trending down, and was down to 717 on yesterday's labs, and CRP was down to 4.2, pro-calcitonin level was low at 0.22, and her LFTs are improving. She remains on being treatments, IV steroids 60 mg every 6 hours, and oral anticoagulation in the form of Eliquis. Objective - Vital Signs Vital signs: Vital Signs Temp 99.4 F 02/07/21 14:00 Pulse 72 02/07/21 14:00 Resp 18 02/07/21 14:00 BP 129/66 02/07/21 14:00 Pulse Ox 96 02/07/21 14:00 Intake & Output 02/06/21 02/07/21 02/07/21 18:59 06:59 18:59 Intake Total 700 Balance 700 Weight 81.647 kg Intake: Oral 700 Other: Voiding Method Bedpan # Voids 2 1 # Bowel Movements 1 - Exam GENERAL EXAM: Alert, pleasant, 65-year-old white female, currently on 6 L of oxygen, with a pulse ox of 96% HEAD: Normocephalic/atraumatic. EYES: Normal reaction of pupils, equal size. Conjunctiva pink, sclera white. NOSE: Clear with pink turbinates. THROAT: No erythema or exudates. NECK: No masses, no JVD, no thyroid enlargement, no adenopathy. CHEST: No chest wall deformity. Symmetrical expansion. LUNGS: Equal air entry with bilateral crackles CVS: Regular rate and rhythm, normal S1 and S2, no gallops, no murmurs, no rubs ABDOMEN: Soft, nontender. No hepatosplenomegaly, normal bowel sounds, no guarding or rigidity. Mild tenderness with palpation in the right upper and lower quadrant EXTREMITIES: No clubbing, no edema, no cyanosis, 2+ pulses and upper and lower extremities. MUSCULOSKELETAL: Muscle strength and tone normal. SPINE: No scoliosis or deformity SKIN: No rashes CENTRAL NERVOUS SYSTEM: Alert and oriented -3. No focal deficits, tone is normal in all 4 extremities. PSYCHIATRIC: Alert and oriented -3. Appropriate affect. Intact judgment and insight. - Labs CBC & Chem 7: 02/07/21 07:54 02/07/21 07:54 Labs: Abnormal Lab Results - Last 24 Hours (Table) 02/07/21 02/07/21 Range/Units 07:54 07:54 WBC 14.8 H (3.8-10.6) k/uL MCHC 30.8 L (31.0-37.0) g/dL RDW 16.0 H (11.5-15.5) % Neutrophils # 13.3 H (1.3-7.7) k/uL Lymphocytes # 0.8 L (1.0-4.8) k/uL Carbon Dioxide 34 H (22-30) mmol/L BUN 25 H (7-17) mg/dL Glucose 164 H (74-99) mg/dL AST 332 H (14-36) U/L ALT 905 H (4-34) U/L Alkaline Phosphatase 218 H (38-126) U/L Total Protein 5.1 L (6.3-8.2) g/dL Albumin 2.6 L (3.5-5.0) g/dL Assessment and Plan Plan: Assessment: #1. Acute on chronic hypoxic respiratory failure related to acute COVID 19 pneumonia, patient's symptoms started last week on with 7 days of presentation, she tested positive on 01/30/2021 in the emergency department #2. Recent hospitalization for acute exacerbation of COPD, was negative for COVID 19 at that time, discharged home on 01/17/2021 #3. Elevated transaminases, possibly related to acute COVID 19 infection, lipase and amylase were negative, gallbladder ultrasound showing some sludge, gallbladder lorenzana within normal limits #4. Elevated d-dimer, patient is on Eliquis for history of A. fib, no evidence of PE on the CT chest #5. Possible urinary tract infection, send a urine culture #6. Diarrhea, rule out C. diff #7. History of COPD, stage III at baseline, with chronic hypoxic respiratory failure #8. Significantly elevated inflammatory markers related to COVID 19 #9. History of A. fib on Eliquis #10. Myocardial infarction #11. History of brain aneurysm with clippings #12. DJD Plan: Continue current medical treatment, continue current dose IV Solu-Medrol, oral anticoagulation, slowly improving, wean FiO2 to keep pulse ox at 89-90%. Continues to improve may consider discharge home next 24-48 hours I performed a history & physical examination of the patient and discussed their management with my nurse practitioner, Darcy Mccartney. I reviewed the nurse pra ctitioner's note and agree with the documented findings and plan of care. Lung sounds are positive for diminished breath sounds. The findings and the impression was discussed with the patient. I attest to the documentation by the nurse practitioner. Time with Patient: Less than 30
--- NOTE | 2021-02-07 15:34 | PN ---
PROGRESS NOTE DATE OF SERVICE: 02/07/2021 REASON FOR FOLLOWUP: Pneumonia. INTERVAL HISTORY: The patient is afebrile. The patient is breathing slightly easily and more comfortably. FiO2 is down to 6 L. The patient denies having any chest pain. Did have a cough; no worsening. No vomiting or diarrhea. PHYSICAL EXAMINATION: Blood pressure 129/66, pulse of 72, temperature 99.4. She is 96% on 6 L nasal cannula. General description is a middle-aged female lying in bed in no distress. RESPIRATORY SYSTEM: Unlabored breathing. Clear to auscultation anteriorly. HEART: S1, S2. Regular rate and rhythm. ABDOMEN: Soft. No tenderness. LABS: Hemoglobin is 12.1, white count 14.8, BUN of 25, creatinine 0.60. Liver enzymes have been slightly improved. DIAGNOSTIC IMPRESSION AND PLAN: Patient with acute COVID-19 infection in this patient who has shown overall clinical improvement on the current treatment protocol of the Solu-Medrol, zinc, ascorbic acid and Eliquis. Monitor clinical course closely. MMRODRICKL / CARIEN: [id number] /
[2021-02-07] MEDS: ATORVASTATIN 80 MG TAB PO SCH (19:43)
[2021-02-07] MEDS: MONTELUKAST 10 MG TAB PO SCH (19:43)
--- NOTE | 2021-02-07 21:26 | P.PN ---
Subjective Progress Note Date: 02/07/21 Principal diagnosis: Acute hypoxic respiratory failure secondary to Covid pneumonia this is a pleasant 65 yo F with past medical history of atrial fibrillation on eliquis, coronary artery disease, COPD ON home oxygen ( 2 L/m), and f/u with , she quit smoking last august 2020, GERD, hyperlipidemia, osteoartheritis , chronic low back pain ,involving left leg numbness , scoliosis and seasonal ALLERGIES. She presents with some tachypnea, and covered with phlegm for more than 6-7 days associated with diarrhea for 3 days. No chest pain or abdominal pain. No nausea vomiting. She is hypoxemic needing a liter of oxygen via nasal cannula, she has low grade temperature of 100.2. Lap showing mild pancytopenia with WBC 4.4K, hemoglobin 11.3 and platelet 84. D-dimer is elevated 9.7, sodium 135, potassium 3.4, liver enzymes are elevated with normal total bilirubin of 0.8, AST is 1446 and ALT 1798. Amylase and lipase are normal. Urine analysis is mildly abnormal most likely due to dehydration. Sputum cultures pending EKG shows sinus tachycardia at [address]-T changes. QTC is 557. CT of the chest is negative for PE, showing emphysema and patchy ground glass appearance CT on both lungs. Gallbladder ultrasound showing gallbladder sludge and hepatomegaly, acute hepatitis panel is negative She is currently started on dexamethasone, she is already on Eliquis. She received fluids in the emergency room 02/01/2021 Patient respiratory distress is mild. No chest pain, no cough, diarrhea stopped. Oxygen saturation is stable on 8 L/m of oxygen via nasal cannula. showing improvement liver enzymes however they're still elevated. Patient remains on Eliquis, dexamethasone and multiple vitamins protocol with. No remdesivir due to elevated enzymes. 02/02/2021 Patient as a level of dyspnea as yesterday. No significant cough or chest pain and her diarrhea stopped. Her oxygen requirement is the same at 8 L/m via high flow nasal cannula. No labs from today. Patient remains on dexamethasone 6 mg daily, 1 dose OF MEDROL IS ADMITTED TODAY BECAUSE SHE WAS WHEEZING IN THE MORNING. PATIENT IS KNOWN CASE OF COPD SHE IS ON HOME OXYGEN AT 2 L/M AND SHE FOLLOWS UP WITH DR. ELLIS IN THE OUTPATIENT SETTING. CHECK LABS TOMORROW INCLUDING INFLAMMATORY MARKERS Chief continue with dexamethasone, Eliquis, multiple vitamins protocol that. 02/03/2021 Patient still with some dyspnea and needing 8 L of oxygen per minute to keep her saturation above 90%. No chest pain or significant diarrhea. Patient still have some cough and treated symptomatically. Patient hemodynamically stable other than that. Her labs included significant improvement with CBC with normal WBC and platelet count, hemoglobin stable at 11. LDH is trending down slowly to 4001 and C-reactive protein improved to 57. Liver enzymes are trending down. Patient remains on Eliquis, dexamethasone and multiple vitamins for covid 02/04/2021 Patient today is limited more wheezy and dyspneic with oxygen saturation went up to 2 L/m via nasal cannula. Cele with no chest pain or significant diarrhea. She is coughing somewhat phlegm and she refuses cough medicine because she was to clear her lungs as she states. D-dimer is coming down 9.7 down to 6.8, slightly improving inflammatory markers with LDH down to 35-7 and C-reactive protein to 41 0.8. Pulmonary team, and to continue same medication and check LFTs in the morning Patient remains on dexamethasone, vitamin C, D and zinc and Eliquis 5 mg. Norvasc added for better blood pressure control today 02/05/2021 Patient is currently lying in the bed awake alert and oriented. Feeling anxio us. Still dyspneic with ambulation. No fever no chills. Currently on 10 L oxygen via nasal cannula. No complaints of chest pain. Patient is being continued on dexamethasone 6 mg daily and also anticoagulation with Eliquis due to chronic atrial fibrillation. Laboratory data showed AST 513, ALT 1252 and alk phos 203 and LDH was 3527. Pulmonary is on board. 02/06/2021 Patient is lying in the bed awake alert and oriented. Still requiring high flow oxygen at 10 L via nasal cannula. Patient states that she feels slightly better today. Still having exertional dyspnea. No complaints of fever or chills. No cough or sputum production. No nausea vomiting abdominal pain or diarrhea. Patient being continued on dexamethasone and Eliquis for chronic atrial fibrillation. Laboratory data showed D-dimer 5.46 and AST 305 ALT 1001 and alk phos 212 and LDH trending down to 717 and CRP is 4.2 today. Pulmonary and ID is following. Chest x-ray showed correlate for pneumonia. 02/07/2021 Patient is currently sitting the chair comfortably. Patient states that her breathing is better. Oxygen requirement is trending down to 6 L via nasal cannula. No complaints of chest pain or shortness of the. Laboratory data showed WBC 14.8 hemoglobin 12.1 and platelets 418 Sodium 137 potassium 4.7 BUN 25 and creatinine 0.60 AST 332 ALT 905 alk phos 218. LFTs are improving. Patient is being continued on IV Solu-Medrol 60 mg every 6 hourly and anticoagulation in the form of Eliquis. Currently on mu ltivitamins. Patient has been afebrile. Tolerating oral diet. No nausea vomiting or abdominal pain. Current medications reviewed. Objective - Vital Signs Vital signs: Vital Signs Temp 99.4 F 02/07/21 14:00 Pulse 72 02/07/21 14:00 Resp 18 02/07/21 14:00 BP 129/66 02/07/21 14:00 Pulse Ox 96 02/07/21 14:00 Intake & Output 02/06/21 02/07/21 02/07/21 18:59 06:59 18:59 Intake Total 700 Balance 700 Weight 81.647 kg Intake: Oral 700 Other: Voiding Method Bedpan # Voids 2 1 # Bowel Movements 1 - Exam - Exam GENERAL: The patient is alert and oriented x3, not in any acute distress. Well developed, well nourished. HEENT: Pupils are round and equally reacting to light. EOMI. No scleral icterus. No conjunctival pallor. Normocephalic, atraumatic. No pharyngeal erythema. No thyromegaly. CARDIOVASCULAR: S1 and S2 present. No murmurs, rubs, or gallops. PULMONARY: Chest is clear to auscultation, no wheezing or crackles. ABDOMEN: Soft, nontender, nondistended, normoactive bowel sounds. No palpable organomegaly. MUSCULOSKELETAL: No joint swelling or deformity. EXTREMITIES: No cyanosis, clubbing, or pedal edema. NEUROLOGICAL: Gross neurological examination did not reveal any focal deficits. SKIN: No rashes. no petechiae. - Labs CBC & Chem 7: 02/07/21 07:54 02/07/21 07:54 Labs: Abnormal Lab Results - Last 24 Hours (Table) 02/07/21 02/07/21 Range/Units 07:54 07:54 WBC 14.8 H (3.8-10.6) k/uL MCHC 30.8 L (31.0-37.0) g/dL RDW 16.0 H (11.5-15.5) % Neutrophils # 13.3 H (1.3-7.7) k/uL Lymphocytes # 0.8 L (1.0-4.8) k/uL Carbon Dioxide 34 H (22-30) mmol/L BUN 25 H (7-17) mg/dL Glucose 164 H (74-99) mg/dL AST 332 H (14-36) U/L ALT 905 H (4-34) U/L Alkaline Phosphatase 218 H (38-126) U/L Total Protein 5.1 L (6.3-8.2) g/dL Albumin 2.6 L (3.5-5.0) g/dL Assessment and Plan Assessment: acute bilateral covid pneumonia Acute hypoxic respiratory failure secondary to above, on chronic hypoxic respiratory failure Elevated inflammatory markers Covid gastroenteritis and hepatitis Elevated d-dimer with negative CTPA for pulmonary embolism. Patient is already on Eliquis Atrial fibrillation with history of stroke, on Eliquis History of coronary artery disease COPD, not in acute exacerbation Chronic hypoxic respiratory failure on 2 L of oxygen via nasal cannula History of GERD Hyperlipidemia Osteoarthritis Chronic low back pain Plan: this is a pleasant 65 years old female who presents with Covid pneumonia and hypoxia. Continue with Eliquis and dexamethasone, c/w vitamin C, vitamin D and zinc. Pulmonary team evaluated the patient who decided patient is outside the window for remdesivir. Monitored liver enzymes Labs and medication were reviewed..Continue with symptomatic treatment. Resume home medication. Monitor lytes and vitals. DVT and GI prophylaxis. Further recommendationsas per clinical course of the patient DVT prophylaxis: Eliquis GI Prophylaxis: Ppi PT/OT: Pending Prognosis is guarded Time with Patient: Greater than 30
[2021-02-08] MEDS: methylPREDNISolone SOD SUCCI 125 MG/2 ML VIAL IV SCH ×3 (05:08→17:12)
[2021-02-08] MEDS: ALBUTEROL HFA INHALER INHALATION SCH ×4 (07:48→20:32)
[2021-02-08] MEDS: SYMBICORT 160-4.5 MCG INHALER INHALATION SCH ×2 (07:48→20:31)
[2021-02-08] MEDS: CHOLECALCIFEROL 25 MCG (1000 IU) TABLET PO SCH (08:52)
[2021-02-08] MEDS: ASCORBIC ACID 500 MG TAB PO SCH ×2 (08:52→20:09)
[2021-02-08] MEDS: lisinopriL 5 MG TAB PO SCH (08:52)
[2021-02-08] MEDS: ZINC SULFATE 220 MG CAP PO SCH (08:52)
[2021-02-08] MEDS: APIXABAN 5 MG TAB PO SCH ×2 (08:52→20:09)
[2021-02-08] MEDS: AMIODARONE 200 MG TAB PO SCH ×2 (08:52→20:09)
[2021-02-08] MEDS: PANTOPRAZOLE 40 MG TABLET PO SCH (08:53)
[2021-02-08] MEDS: amLODIPine 5 MG TAB PO SCH (08:53)
[2021-02-08] MEDS: ACETAMINOPHEN TAB 325 MG TAB PO PRN (08:53)
[2021-02-08] MEDS ORDERED: NITROGLYCERIN OINT 1 INCH/GM PACKET TOPICAL ONE (09:40)
[2021-02-08] MEDS ORDERED: NITROGLYCERIN SL TABS 0.4 MG TAB SUBLINGUAL ONE (09:40)
[2021-02-08] MEDS: LORazepam 0.5 MG TAB PO PRN ×2 (09:45→20:09)
[2021-02-08 09:52] LABS: Basophils # (A) 0.1 k/uL (0-0.2); Basophils % (A) 0 %; Eosinophils # (A) 0.1 k/uL (0-0.7); Eosinophils % (A) 0 %; HGB 11.4 gm/dL (11.4-16.0); Lymphocytes # (A) 0.6 k/uL (1.0-4.8); Lymphocytes % (A) 3 %; MCH 26.7 pg (25.0-35.0); MCHC 30.8 g/dL (31.0-37.0); MCV 86.5 fL (80.0-100.0); Mean Platelet Volume 7.5; Monocytes # (A) 0.5 k/uL (0-1.0); Monocytes % (A) 3 %; Neutrophils # (A) 15.5 k/uL (1.3-7.7); Neutrophils % (A) 92 %; Platelet Count 373 k/uL (150-450); RBC 4.27 m/uL (3.80-5.40); WBC 16.9 k/uL (3.8-10.6)
[2021-02-08 10:00] LABS: Anisocytosis Slight; Basophils % (A) 0 %; Eosinophils % (A) 0 %; HCT 45.2 % (34.0-46.0); HGB 13.7 gm/dL (11.4-16.0); Lymphocytes # (A) 0.5 k/uL (1.0-4.8); Lymphocytes % (A) 4 %; MCH 26.2 pg (25.0-35.0); MCHC 30.4 g/dL (31.0-37.0); MCV 86.3 fL (80.0-100.0); Mean Platelet Volume 8.3; Monocytes # (A) 0.5 k/uL (0-1.0); Monocytes % (A) 4 %; Neutrophils # (A) 11.1 k/uL (1.3-7.7); Neutrophils % (A) 91 %; Platelet Count 312 k/uL (150-450); RBC 5.23 m/uL (3.80-5.40); RDW 16.1 % (11.5-15.5); WBC 12.2 k/uL (3.8-10.6)
--- NOTE | 2021-02-08 10:01 | XR ---
EXAMINATION TYPE: XR chest 1V portable DATE OF EXAM: 02/08/2021 COMPARISON: 02/06/2021 HISTORY: Chest pain TECHNIQUE: Single frontal view of the chest is obtained. FINDINGS: Diffuse interstitial pattern with by basilar and right upper lobe infiltrate. Heart size n ormal. Atherosclerotic change aorta. No pneumothorax. Hyperinflation suggests COPD. IMPRESSION: Bilateral interstitial and alveolar infiltrates are stable correlate for interstitial pn eumonia with superimposed consolidative pneumonia
[2021-02-08 10:58] LABS: African American GFR (CKD) >90 (>60 ml/min/1.73 sqM); Anion Gap 5 mmol/L; Blood Urea Nitrogen 28 mg/dL (7-17); Calcium 8.4 mg/dL (8.4-10.2); Carbon Dioxide 32 mmol/L (22-30); Chloride 101 mmol/L (98-107); Glucose 172 mg/dL (74-99); Non-African American GFR(CKD) >90 (>60 ml/min/1.73 sqM); Potassium 4.9 mmol/L (3.5-5.1); Sodium 138 mmol/L (137-145)
--- NOTE | 2021-02-08 15:47 | P.PN ---
Subjective Progress Note Date: 02/08/21 65-year-old white female patient who is familiar to our service from her previous history of hospitalizations for complications related to her underlying history of COPD stage III, on home oxygen. She follows with Dr. Artis in the pulmonary clinic. She is normally on 2 L of oxygen on a regular basis, patient had recent hospitalization for acute exacerbation of COPD complicated by purulent tracheal bronchitis. Her other medical history significant for hypertension, history of A. 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 She was discharged home on 01/17/2021, and was feeling well for a while, last week on she started feeling worse, denied any worsening dyspnea, she is chronically short of breath and that did not seem to get any worse, however she is feeling very weak, she developed profuse diarrhea which she states is uncontrollable, and overall she feels quite rundown. She is also having some chest discomfort in the anterior sternal area which is worse with coughing and moving around, and some abdominal tenderness in the right upper and lower quadrants, but no nausea or vomiting, abdomen is soft. Chest x-ray in the emergency department shows COPD interstitial pneumonitis small bilateral pleural effusions, and a basilar consolidation. COVID 19 PCR was positive. Admission labs showed white blood cell count 5.4, hemoglobin is 12.7, platelet count is 60, d-dimer was increased at 9.7 to the patient is on Eliquis on a regular basis for history of A. fib, CTA chest was completed, however there was breathing motion artifact, but no evidence of large central or lobar branch pulmonary embolus, many segmental and more distal arterial branches were nondiagnostic, there were multifocal bilateral patchy and confluent groundglass opacities and a trace pleural effusions. There was a small hiatal hernia. Her enzymes were significantly elevated and ultrasound of the gallbladder was completely showing hepatomegaly, and sludge within the gallbladder. Currently patient is up to 8 L of oxygen, her pulse ox is 93%, hemodynamically she stable, she is in sinus mechanism, slightly tachycardic on the monitor. Troponin was 0.021. Her inflammatory markers were significantly elevated with LDH of 4970, and CRP is 203.5. AST was 1441, and ALT was 2054, total bilirubin was 0.9, and alk phos was 79. Urinalysis was positive for 2+ protein, nitrates, many bacteria. She is on Rocephin for empiric coverage, hepatitis panel was nonreactive, Tylenol level was less than 10. Amylase and lipase were negative at 43 and 53 respectively. Patient was started on Decadron 6 milligram daily, her Eliquis continues, and patient is on amiodarone and Lipitor. Stool for C. diff has been ordered, cultures have been sent Reevaluated today on 02/01/21, patient seems to be doing fairly well, her O2 saturations 91% on 2 L nasal cannula. Patient was on 8 L on admission. Patient is normally on oxygen and home, she does have underlying COPD. Remains on the Covid 19 cocktail. Remains on bronchodilators. Patient did not receive REM mostly because of her liver enzymes being quite elevated. Remain elevated today but trending admitted down especially her ALT is down to 1798 from 2053 Patient was reevaluated today on 02/02/2021, remains on high flow oxygen, now she is on 8 L, O2 sats is ranging anywhere between 91% up to 97%. Today it is 94%. Patient looks comfortable, not in any distress. No labs were drawn today, but her labs from yesterday were reviewed, liver enzymes are improving a bit with ALT down to 1534 and AST is down to 758. Her last CT angiogram was on 01/31 which I have noted above. On 02/03/2021 patient seen in follow-up on medical floor, she is currently at 8 L of oxygen pulse ox is 91%, she is doing better, her LDH and CRP remain elevated but improving, her cough has improved, she started to bring up some yellowish colored phlegm, no hemoptysis, pro-calcitonin was 0.22, she is currently on oral Decadron, she continues on Robitussin, she is on inhalers, she is on oral anticoagulation in the form of Eliquis for her history of A. fib. Her liver enzymes were starting to improve. No acute events overnight. Patient was not a candidate for Remdesivir related to elevated liver enzymes. She continues on supportive treatment. On 02/06/2021 patient seen in follow-up on medical surgical floor, she continues to be on high flow oxygen chronically at 10 L, and her pulse ox is between 93- 98%, this can probably be weaned down. Appears to be breathing comfortably, she is afebrile, hemodynamically stable, no chest discomfort. Still has a cough with occasional sputum, no hemoptysis, no nausea vomiting or abdominal pain. She continues on Eliquis, Solu-Medrol, and multivitamins. She is clinically improving. Today's d-dimer is 5.46, electrolytes are unremarkable, liver enzymes are improving, AST is down to 305, ALT is 1001, alkaline phosphatase is 212, pro-calcitonin level is low at 0.22. She's had no fever or chills. No nausea vomiting or diarrhea. On 02/07/2021 patient seen in follow-up on medical surgical floor, she is improving, she is up in the chair, less bronchospastic less dyspneic, peripheral 6 L of oxygen, her pulse ox is 96%, this can probably be weaned little bit further, looks comfortable, breathing comfortably, denies any chest discomfort, no new chest x-ray today, today's labs have been noted, her last d-dimer from yesterday was still elevated although trending down at 5.46, BUN was 25, creatinine was 0.6, CO2 is 36, the rest of electrolytes were unremarkable, her LDH was also trending down, and was down to 717 on yesterday's labs, and CRP was down to 4.2, pro-calcitonin level was low at 0.22, and her LFTs are improving. She remains on being treatments, IV steroids 60 mg every 6 hours, and oral anticoagulation in the form of Eliquis. 02/08/2021, I'm seeing the patient for a follow-up. The patient is a 65-year- old female patient with COVID-19 related pneumonia and the patient was hospitalized/for worsening shortness of breath and hypoxemia. The patient also had an acute on top of chronic respiratory failure. Typically the patient on 2 L about 2 by nasal cannula and currently is at 6 L. Earlier this morning, the patient is episodes of chest pain. Further workup was done including a cardiac enzymes that came back negative. Her chest pain has subsided for now. Overall pulmonary status is stable probably somewhat improved compared to yesterday. No nausea. No vomiting. No diarrhea. No abdominal pain. She is free of any chest pain for now. She remains on IV Solu Medrol 60 mg every 6 hours and she is also on long-term and to coagulation with Eliquis. The white cell count is at 16.9. Objective - Vital Signs Vital signs: Vital Signs Temp 97.8 F 02/08/21 13:59 Pulse 70 02/08/21 13:59 Resp 20 02/08/21 13:59 BP 146/69 02/08/21 13:59 Pulse Ox 96 02/08/21 13:59 Intake & Output 02/07/21 02/08/21 02/08/21 18:59 06:59 18:59 Other: Voiding Method Bedpan Bedpan # Voids 1 1 # Bowel Movements 1 - Exam GENERAL EXAM: Alert, pleasant, 65-year-old white female, currently on 6 L of oxygen, with a pulse ox of 96% HEAD: Normocephalic/atraumatic. EYES: Normal reaction of pupils, equal size. Conjunctiva pink, sclera white. NOSE: Clear with pink turbinates. THROAT: No erythema or exudates. NECK: No masses, no JVD, no thyroid enlargement, no adenopathy. CHEST: No chest wall deformity. Symmetrical expansion. LUNGS: Equal air entry with bilateral crackles CVS: Regular rate and rhythm, normal S1 and S2, no gallops, no murmurs, no rubs ABDOMEN: Soft, nontender. No hepatosplenomegaly, normal bowel sounds, no guarding or rigidity. Mild tenderness with palpation in the right upper and lower quadrant EXTREMITIES: No clubbing, no edema, no cyanosis, 2+ pulses and upper and lower extremities. MUSCULOSKELETAL: Muscle strength and tone normal. SPINE: No scoliosis or deformity SKIN: No rashes CENTRAL NERVOUS SYSTEM: Alert and oriented -3. No focal deficits, tone is normal in all 4 extremities. PSYCHIATRIC: Alert and oriented -3. Appropriate affect. Intact judgment and insight. - Labs CBC & Chem 7: 02/08/21 09:42 02/08/21 07:46 Labs: Abnormal Lab Results - Last 24 Hours (Table) 02/08/21 02/08/21 02/08/21 Range/Units 07:46 07:46 09:42 WBC 12.2 H 16.9 H (3.8-10.6) k/uL MCHC 30.4 L 30.8 L (31.0-37.0) g/dL RDW 16.1 H 16.0 H (11.5-15.5) % Neutrophils # 11.1 H 15.5 H (1.3-7.7) k/uL Lymphocytes # 0.5 L 0.6 L (1.0-4.8) k/uL Carbon Dioxide 32 H (22-30) mmol/L BUN 28 H (7-17) mg/dL Glucose 172 H (74-99) mg/dL Assessment and Plan Plan: #1. Acute on chronic hypoxic respiratory failure related to acute COVID 19 pneumonia, with a component of an acute on top of chronic hypoxic respiratory failure and the patient is currently on 6 L of oxygen by nasal cannula, clinically stable. She does have a component of COPD exacerbation. #2. Recent hospitalization for acute exacerbation of COPD, was negative for COVID 19 at that time, discharged home on 01/17/2021 #3. Elevated transaminases, possibly related to acute COVID 19 infection, lipase and amylase were negative, gallbladder ultrasound showing some sludge, gallbladder lorenzana within normal limits #4. Elevated d-dimer, patient is on Eliquis for history of A. fib, no evidence of PE on the CT chest #5. Possible urinary tract infection, send a urine culture #6. Diarrhea, rule out C. diff #7. History of COPD, stage III at baseline, with chronic hypoxic respiratory failure #8. Significantly elevated inflammatory markers related to COVID 19 #9. History of A. fib on Eliquis #10. Myocardial infarction #11. History of brain aneurysm with clippings #12. DJD Plan Dropped FiO2 down to 5 L Continue IV Solu Medrol for another 24 hours Continue anticoagulation Deep breathing incentive spirometer She has home oxygen at 2 L We'll continue to follow
[2021-02-08] MEDS: ATORVASTATIN 80 MG TAB PO SCH (20:09)
[2021-02-08] MEDS: MONTELUKAST 10 MG TAB PO SCH (20:09)
--- NOTE | 2021-02-08 20:14 | PN ---
PROGRESS NOTE DATE OF SERVICE: 02/08/2021 REASON FOR FOLLOWUP: COVID-19 pneumonia. INTERVAL HISTORY: The patient is afebrile. She is breathing slightly comfortably today. FiO2 is down to 5 L. Patient denies having any did have some cough but no sputum. No abdominal pain and no diarrhea. PHYSICAL EXAMINATION: Blood pressure 160/72 with a pulse of 69, temperature 98.2. She is 95% on 5 L nasal cannula. General description is a middle-aged female lying in bed in no distress. RESPIRATORY SYSTEM: Unlabored breathing. Clear to auscultation anteriorly. HEART: S1, S2. Regular rate and rhythm. ABDOMEN: Soft. No tenderness. LABS: Hemoglobin is 11.4, white count 16.9. DIAGNOSTIC IMPRESSION AND PLAN: Patient with acute COVID-19 pneumonia in this patient who seems to have shown overall clinical improvement with slow clinical response. FiO2 is down to 5 L. The patient is currently covered with Solu-Medrol, Eliquis, zinc, ascorbic acid. That will be continued. Will monitor clinical course closely. MMODL / IJN: [id number] /
--- NOTE | 2021-02-08 22:21 | P.PN ---
Subjective Progress Note Date: 02/08/21 Principal diagnosis: Acute hypoxic respiratory failure secondary to Covid pneumonia this is a pleasant 65 yo F with past medical history of atrial fibrillation on eliquis, coronary artery disease, COPD ON home oxygen ( 2 L/m), and f/u with , she quit smoking last august 2020, GERD, hyperlipidemia, osteoartheritis , chronic low back pain ,involving left leg numbness , scoliosis and seasonal ALLERGIES. She presents with some tachypnea, and covered with phlegm for more than 6-7 days associated with diarrhea for 3 days. No chest pain or abdominal pain. No nausea vomiting. She is hypoxemic needing a liter of oxygen via nasal cannula, she has low grade temperature of 100.2. Lap showing mild pancytopenia with WBC 4.4K, hemoglobin 11.3 and platelet 84. D-dimer is elevated 9.7, sodium 135, potassium 3.4, liver enzymes are elevated with normal total bilirubin of 0.8, AST is 1446 and ALT 1798. Amylase and lipase are normal. Urine analysis is mildly abnormal most likely due to dehydration. Sputum cultures pending EKG shows sinus tachycardia at [address]-T changes. QTC is 557. CT of the chest is negative for PE, showing emphysema and patchy ground glass appearance CT on both lungs. Gallbladder ultrasound showing gallbladder sludge and hepatomegaly, acute hepatitis panel is negative She is currently started on dexamethasone, she is already on Eliquis. She received fluids in the emergency room 02/01/2021 Patient respiratory distress is mild. No chest pain, no cough, diarrhea stopped. Oxygen saturation is stable on 8 L/m of oxygen via nasal cannula. showing improvement liver enzymes however they're still elevated. Patient remains on Eliquis, dexamethasone and multiple vitamins protocol with. No remdesivir due to elevated enzymes. 02/02/2021 Patient as a level of dyspnea as yesterday. No significant cough or chest pain and her diarrhea stopped. Her oxygen requirement is the same at 8 L/m via high flow nasal cannula. No labs from today. Patient remains on dexamethasone 6 mg daily, 1 dose OF MEDROL IS ADMITTED TODAY BECAUSE SHE WAS WHEEZING IN THE MORNING. PATIENT IS KNOWN CASE OF COPD SHE IS ON HOME OXYGEN AT 2 L/M AND SHE FOLLOWS UP WITH DR. ELLIS IN THE OUTPATIENT SETTING. CHECK LABS TOMORROW INCLUDING INFLAMMATORY MARKERS Chief continue with dexamethasone, Eliquis, multiple vitamins protocol that. 02/03/2021 Patient still with some dyspnea and needing 8 L of oxygen per minute to keep her saturation above 90%. No chest pain or significant diarrhea. Patient still have some cough and treated symptomatically. Patient hemodynamically stable other than that. Her labs included significant improvement with CBC with normal WBC and platelet count, hemoglobin stable at 11. LDH is trending down slowly to 4001 and C-reactive protein improved to 57. Liver enzymes are trending down. Patient remains on Eliquis, dexamethasone and multiple vitamins for covid 02/04/2021 Patient today is limited more wheezy and dyspneic with oxygen saturation went up to 2 L/m via nasal cannula. Cele with no chest pain or significant diarrhea. She is coughing somewhat phlegm and she refuses cough medicine because she was to clear her lungs as she states. D-dimer is coming down 9.7 down to 6.8, slightly improving inflammatory markers with LDH down to 35-7 and C-reactive protein to 41 0.8. Pulmonary team, and to continue same medication and check LFTs in the morning Patient remains on dexamethasone, vitamin C, D and zinc and Eliquis 5 mg. Norvasc added for better blood pressure control today 02/05/2021 Patient is currently lying in the bed awake alert and oriented. Feeling anxio us. Still dyspneic with ambulation. No fever no chills. Currently on 10 L oxygen via nasal cannula. No complaints of chest pain. Patient is being continued on dexamethasone 6 mg daily and also anticoagulation with Eliquis due to chronic atrial fibrillation. Laboratory data showed AST 513, ALT 1252 and alk phos 203 and LDH was 3527. Pulmonary is on board. 02/06/2021 Patient is lying in the bed awake alert and oriented. Still requiring high flow oxygen at 10 L via nasal cannula. Patient states that she feels slightly better today. Still having exertional dyspnea. No complaints of fever or chills. No cough or sputum production. No nausea vomiting abdominal pain or diarrhea. Patient being continued on dexamethasone and Eliquis for chronic atrial fibrillation. Laboratory data showed D-dimer 5.46 and AST 305 ALT 1001 and alk phos 212 and LDH trending down to 717 and CRP is 4.2 today. Pulmonary and ID is following. Chest x-ray showed correlate for pneumonia. 02/07/2021 Patient is currently sitting the chair comfortably. Patient states that her breathing is better. Oxygen requirement is trending down to 6 L via nasal cannula. No complaints of chest pain or shortness of the. Laboratory data showed WBC 14.8 hemoglobin 12.1 and platelets 418 Sodium 137 potassium 4.7 BUN 25 and creatinine 0.60 AST 332 ALT 905 alk phos 218. LFTs are improving. Patient is being continued on IV Solu-Medrol 60 mg every 6 hourly and anticoagulation in the form of Eliquis. Currently on mu ltivitamins. Patient has been afebrile. Tolerating oral diet. No nausea vomiting or abdominal pain. 02/08/2021 Patient is currently resting in the bed comfortably. Patient did complain of chest pain this morning. EKG showed normal sinus rhythm and troponin x1 -. Otherwise patient has been afebrile. Chest x-ray showed bilateral interstitial and alveolar infiltrates are stable correlate for interstitial pneumonia with superimposed consolidative pneumonia. Laboratory showed WBC 16.9, hemoglobin 11.4 and platelets 373 lymphocytes 0.6 and troponin x1 - Current medications reviewed. Objective - Vital Signs Vital signs: Vital Signs Temp 97.8 F 02/08/21 13:59 Pulse 70 02/08/21 13:59 Resp 20 02/08/21 13:59 BP 146/69 02/08/21 13:59 Pulse Ox 96 02/08/21 13:59 Intake & Output 02/07/21 02/08/21 02/08/21 18:59 06:59 18:59 Other: Voiding Method Bedpan Bedpan # Voids 1 1 # Bowel Movements 1 - Exam - Exam GENERAL: The patient is alert and oriented x3, not in any acute distress. Well developed, well nourished. HEENT: Pupils are round and equally reacting to light. EOMI. No scleral icterus. No conjunctival pallor. Normocephalic, atraumatic. No pharyngeal erythema. No thyromegaly. CARDIOVASCULAR: S1 and S2 present. No murmurs, rubs, or gallops. PULMONARY: Chest is clear to auscultation, no wheezing or crackles. ABDOMEN: Soft, nontender, nondistended, normoactive bowel sounds. No palpable organomegaly. MUSCULOSKELETAL: No joint swelling or deformity. EXTREMITIES: No cyanosis, clubbing, or pedal edema. NEUROLOGICAL: Gross neurological examination did not reveal any focal deficits. SKIN: No rashes. no petechiae. - Labs CBC & Chem 7: 02/08/21 09:42 02/08/21 07:46 Labs: Abnormal Lab Results - Last 24 Hours (Table) 02/08/21 02/08/21 02/08/21 Range/Units 07:46 07:46 09:42 WBC 12.2 H 16.9 H (3.8-10.6) k/uL MCHC 30.4 L 30.8 L (31.0-37.0) g/dL RDW 16.1 H 16.0 H (11.5-15.5) % Neutrophils # 11.1 H 15.5 H (1.3-7.7) k/uL Lymphocytes # 0.5 L 0.6 L (1.0-4.8) k/uL Carbon Dioxide 32 H (22-30) mmol/L BUN 28 H (7-17) mg/dL Glucose 172 H (74-99) mg/dL Assessment and Plan Assessment: acute bilateral covid pneumonia Acute hypoxic respiratory failure secondary to above, on chronic hypoxic respiratory failure Elevated inflammatory markers Covid gastroenteritis and hepatitis Elevated d-dimer with negative CTPA for pulmonary embolism. Patient is already on Eliquis Atrial fibrillation with history of stroke, on Eliquis History of coronary artery disease COPD, not in acute exacerbation Chronic hypoxic respiratory failure on 2 L of oxygen via nasal cannula History of GERD Hyperlipidemia Osteoarthritis Chronic low back pain Plan: this is a pleasant 65 years old female who presents with Covid pneumonia and hypoxia. Continue with Eliquis and dexamethasone, c/w vitamin C, vitamin D and zinc. Continue to titrate down oxygen. Incentive spirometry. Patient is currently on 6 L oxygen via nasal cannula. Pulmonary team evaluated the patient who decided patient is outside the window for remdesivir. Monitored liver enzymes Labs and medication were reviewed..Continue with symptomatic treatment. Monitor lytes and vitals. DVT and GI prophylaxis. Further recommendationsas per clinical course of the patient DVT prophylaxis: Eliquis GI Prophylaxis: Ppi PT/OT: Pending Prognosis is guarded Time with Patient: Greater than 30
[2021-02-09] MEDS: methylPREDNISolone SOD SUCCI 125 MG/2 ML VIAL IV SCH ×5 (01:05→23:16)
[2021-02-09 07:29] LABS: Glucose,Whole Blood 183 mg/dL (75-99)
[2021-02-09] MEDS: ASCORBIC ACID 500 MG TAB PO SCH ×2 (08:00→20:09)
[2021-02-09] MEDS: CHOLECALCIFEROL 25 MCG (1000 IU) TABLET PO SCH (08:00)
[2021-02-09] MEDS: PANTOPRAZOLE 40 MG TABLET PO SCH (08:00)
[2021-02-09] MEDS: INSULIN ASPART (NovoLOG) 100 UNIT/ML VIAL SQ SCH ×4 (08:01→20:08)
[2021-02-09] MEDS: ZINC SULFATE 220 MG CAP PO SCH (08:01)
[2021-02-09] MEDS: amLODIPine 5 MG TAB PO SCH (08:01)
[2021-02-09] MEDS: APIXABAN 5 MG TAB PO SCH ×2 (08:01→20:08)
[2021-02-09] MEDS: lisinopriL 5 MG TAB PO SCH (08:01)
[2021-02-09] MEDS: AMIODARONE 200 MG TAB PO SCH ×2 (08:01→20:09)
[2021-02-09 08:43] LABS: Basophils % (A) 0 %; Eosinophils % (A) 0 %; HCT 36.9 % (34.0-46.0); Lymphocytes # (A) 0.6 k/uL (1.0-4.8); Lymphocytes % (A) 3 %; MCH 27.4 pg (25.0-35.0); MCHC 32.4 g/dL (31.0-37.0); MCV 84.7 fL (80.0-100.0); Mean Platelet Volume 7.6; Monocytes # (A) 0.6 k/uL (0-1.0); Monocytes % (A) 4 %; Neutrophils # (A) 15.6 k/uL (1.3-7.7); Neutrophils % (A) 92 %; Platelet Count 385 k/uL (150-450); RBC 4.36 m/uL (3.80-5.40); RDW 15.8 % (11.5-15.5); WBC 16.9 k/uL (3.8-10.6)
--- NOTE | 2021-02-09 08:46 | XR ---
EXAMINATION TYPE: XR chest 1V portable DATE OF EXAM: 02/09/2021 CLINICAL HISTORY: Difficulty breathing and covid progress study. TECHNIQUE: Single AP portable upright view of the chest is obtained. COMPARISON: Chest x-ray from one day earlier and older studies. FINDINGS: Background chronic parenchymal changes with increased opacities in the periphery mid to lo wer lungs and basilar regions bilaterally redemonstrated. Cardiac silhouette size stable and mildly e nlarged. Osseous structures are intact. IMPRESSION: Mild cardiomegaly and chronic emphysematous change with bilateral multifocal mid to lower lung opacities are redemonstrated consistent with covid-19 infection, no significant change from one day earlier.
[2021-02-09 08:52] LABS: ALT 744 U/L (4-34); AST 240 U/L (14-36); African American GFR (CKD) >90 (>60 ml/min/1.73 sqM); Albumin 2.7 g/dL (3.5-5.0); Albumin/Globulin Ratio 1.1; Alkaline Phosphatase 208 U/L (38-126); Anion Gap 2 mmol/L; Blood Urea Nitrogen 27 mg/dL (7-17); Calcium 8.7 mg/dL (8.4-10.2); Carbon Dioxide 36 mmol/L (22-30); Chloride 101 mmol/L (98-107); Globulin 2.4 g/dL; Glucose 171 mg/dL (74-99); Non-African American GFR(CKD) >90 (>60 ml/min/1.73 sqM); Potassium 4.9 mmol/L (3.5-5.1); Sodium 139 mmol/L (137-145); Total Bilirubin 0.6 mg/dL (0.2-1.3); Total Protein 5.1 g/dL (6.3-8.2)
[2021-02-09] MEDS: ALBUTEROL HFA INHALER INHALATION SCH ×4 (09:37→21:08)
[2021-02-09] MEDS: SYMBICORT 160-4.5 MCG INHALER INHALATION SCH ×2 (09:37→21:09)
[2021-02-09 11:20] LABS: Glucose,Whole Blood 196 mg/dL (75-99)
--- NOTE | 2021-02-09 14:28 | P.PN ---
Subjective Progress Note Date: 02/09/21 Principal diagnosis: Acute on chronic hypoxic respiratory failure secondary to acute COVID 19 pneumonia and history of underlying COPD 65-year-old white female patient who is familiar to our service from her previous history of hospitalizations for complications related to her underlying history of COPD stage III, on home oxygen. She follows with Dr. Artis in the pulmonary clinic. She is normally on 2 L of oxygen on a regular basis, patient had recent hospitalization for acute exacerbation of COPD complicated by purulent tracheal bronchitis. Her other medical history significant for hypertension, history of A. fib, previous history of CVA, [place], osteoarthritis, previous history of brain aneurysm with clipping, and previous history of smoking. She was discharged home on 01/17/2021, and was feeling well for a while, last week on she started feeling worse, denied any worsening dyspnea, she is chronically short of breath and that did not seem to get any w orse, however she is feeling very weak, she developed profuse diarrhea which she states is uncontrollable, and overall she feels quite rundown. She is also having some chest discomfort in the anterior sternal area which is worse with coughing and moving around, and some abdominal tenderness in the right upper and lower quadrants, but no nausea or vomiting, abdomen is soft. Chest x-ray in the emergency department shows COPD interstitial pneumonitis small bilateral pleural effusions, and a basilar consolidation. COVID 19 PCR was positive. Admission labs showed white blood cell count 5.4, hemoglobin is 12.7, platelet count is 60, d-dimer was increased at 9.7 to the patient is on Eliquis on a regular basis for history of A. fib, CTA chest was completed, however there was breathing motion artifact, but no evidence of large central or lobar branch pulmonary embolus, many segmental and more distal arterial branches were nondiagnostic, there were multifocal bilateral patchy and confluent groundglass opacities and a trace pleural effusions. There was a small hiatal hernia. Her enzymes were significantly elevated and ultrasound of the gallbladder was completely showing hepatomegaly, and sludge within the gallbladder. Currently patient is up to 8 L of oxygen, her pulse ox is 93%, hemodynamically she stable, she is in sinus mechanism, slightly tachycardic on the monitor. Troponin was 0.021. Her inflammatory markers were significantly elevated with LDH of 4970, and CRP is 203.5. AST was 1441, and ALT was 2053, total bilirubin was 0.9, and alk phos was 79. Urinalysis was positive for 2+ protein, nitrates, many bacteria. She is on Rocephin for empiric coverage, hepatitis panel was nonreactive, Tylenol level was less than 10. Amylase and lipase were negative at 43 and 53 re spectively. Patient was started on Decadron 6 milligram daily, her Eliquis continues, and patient is on amiodarone and Lipitor. Stool for C. diff has been ordered, cultures have been sent Reevaluated today on 02/01/21, patient seems to be doing fairly well, her O2 saturations 91% on 2 L nasal cannula. Patient was on 8 L on admission. Patient is normally on oxygen and home, she does have underlying COPD. Remains on the Covid 19 cocktail. Remains on bronchodilators. Patient did not receive REM mostly because of her liver enzymes being quite elevated. Remain elevated today but trending admitted down especially her ALT is down to 1798 from 2053 Patient was reevaluated today on 02/02/2021, remains on high flow oxygen, now she is on 8 L, O2 sats is ranging anywhere between 91% up to 97%. Today it is 94%. Patient looks comfortable, not in any distress. No labs were drawn today, but her labs from yesterday were reviewed, liver enzymes are improving a bit with ALT down to 1534 and AST is down to 758. Her last CT angiogram was on 01/31 which I have noted above. On 02/03/2021 patient seen in follow-up on medical floor, she is currently at 8 L of oxygen pulse ox is 91%, she is doing better, her LDH and CRP remain elevated but improving, her cough has improved, she started to bring up some yellowish colored phlegm, no hemoptysis, pro-calcitonin was 0.22, she is currently on oral Decadron, she continues on Robitussin, she is on inhalers, she is on oral anticoagulation in the form of Eliquis for her history of A. fib. Her liver enzymes were starting to improve. No acute events overnight. Patient was not a candidate for Remdesivir related to elevated liver enzymes. She cont inues on supportive treatment. On 02/06/2021 patient seen in follow-up on medical surgical floor, she continues to be on high flow oxygen chronically at 10 L, and her pulse ox is between 93- 98%, this can probably be weaned down. Appears to be breathing comfortably, she is afebrile, hemodynamically stable, no chest discomfort. Still has a cough with occasional sputum, no hemoptysis, no nausea vomiting or abdominal pain. She continues on Eliquis, Solu-Medrol, and multivitamins. She is clinically improving. Today's d-dimer is 5.46, electrolytes are unremarkable, liver enzymes are improving, AST is down to 305, ALT is 1001, alkaline phosphatase is 212, pro-calcitonin level is low at 0.22. She's had no fever or chills. No nausea vomiting or diarrhea. On 02/07/2021 patient seen in follow-up on medical surgical floor, she is improving, she is up in the chair, less bronchospastic less dyspneic, peripheral 6 L of oxygen, her pulse ox is 96%, this can probably be weaned little bit furth er, looks comfortable, breathing comfortably, denies any chest discomfort, no new chest x-ray today, today's labs have been noted, her last d-dimer from yesterday was still elevated although trending down at 5.46, BUN was 25, creatinine was 0.6, CO2 is 36, the rest of electrolytes were unremarkable, her LDH was also trending down, and was down to 717 on yesterday's labs, and CRP was down to 4.2, pro-calcitonin level was low at 0.22, and her LFTs are improving. She remains on being treatments, IV steroids 60 mg every 6 hours, and oral anticoagulation in the form of Eliquis. On 02/09/2021 patient seen in follow-up. Currently down to 4 L of oxygen, she feels that she is improving, breathing much easier, although generally remains weak, she was up to the chair, lung sounds reveal some diffuse wheezes, and coarse crackles, no fever or chills, overall feeling better, taste chest x-ray shows mild cardiomegaly and chronic emphysematous changes with bilateral multifocal lung opacities, consistent with COVID-19 pneumonia, stable in appearance. Today's labs have been reviewed showing d-dimer of 1.82, white blood cell count 16.9, stable, LFTs are improving, and inflammatory markers were improving, and we'll obtain follow-up inflammatory markers today. She is on oral anticoagulation in the form of Eliquis, she remains on pulmonary treatments, IV Solu-Medrol 60 every 6 hours. Objective - Vital Signs Vital signs: Vital Signs Temp 97.4 F L 02/09/21 10:00 Pulse 72 02/09/21 10:00 Resp 18 02/09/21 10:00 BP 115/68 02/09/21 10:00 Pulse Ox 94 L 02/09/21 10:00 Intake & Output 02/08/21 02/09/21 02/09/21 18:59 06:59 18:59 Intake Total 700 Balance 700 Intake: Oral 700 Other: Voiding Method Bedpan Bedside Commode Bedpan # Voids 2 1 2 - Exam GENERAL EXAM: Alert, pleasant, 65-year-old white female, currently on 4 L of oxygen, with a pulse ox of 94% HEAD: Normocephalic/atraumatic. EYES: Normal reaction of pupils, equal size. Conjunctiva pink, sclera white. NOSE: Clear with pink turbinates. THROAT: No erythema or exudates. NECK: No masses, no JVD, no thyroid enlargement, no adenopathy. CHEST: No chest wall deformity. Symmetrical expansion. LUNGS: Equal air entry with bilateral crackles CVS: Regular rate and rhythm, normal S1 and S2, no gallops, no murmurs, no rubs ABDOMEN: Soft, nontender. No hepatosplenomegaly, normal bowel sounds, no guarding or rigidity. Mild tenderness with palpation in the right upper and lower quadrant EXTREMITIES: No clubbing, no edema, no cyanosis, 2+ pulses and upper and lower extremities. MUSCULOSKELETAL: Muscle strength and tone normal. SPINE: No scoliosis or deformity SKIN: No rashes CENTRAL NERVOUS SYSTEM: Alert and oriented -3. No focal deficits, tone is normal in all 4 extremities. PSYCHIATRIC: Alert and oriented -3. Appropriate affect. Intact judgment and insight. - Labs CBC & Chem 7: 02/09/21 07:40 02/09/21 07:40 Labs: Abnormal Lab Results - Last 24 Hours (Table) 02/09/21 02/09/21 02/09/21 Range/Units 07:26 07:40 07:40 WBC 16.9 H (3.8-10.6) k/uL RDW 15.8 H (11.5-15.5) % Neutrophils # 15.6 H (1.3-7.7) k/uL Lymphocytes # 0.6 L (1.0-4.8) k/uL D-Dimer (<0.60) mg/L FEU Carbon Dioxide 36 H (22-30) mmol/L BUN 27 H (7-17) mg/dL Glucose 171 H (74-99) mg/dL POC Glucose (mg/dL) 183 H (75-99) mg/dL AST 240 H (14-36) U/L ALT 744 H (4-34) U/L Alkaline Phosphatase 208 H (38-126) U/L Total Protein 5.1 L (6.3-8.2) g/dL Albumin 2.7 L (3.5-5.0) g/dL 02/09/21 02/09/21 Range/Units 07:40 11:18 WBC (3.8-10.6) k/uL RDW (11.5-15.5) % Neutrophils # (1.3-7.7) k/uL Lymphocytes # (1.0-4.8) k/uL D-Dimer 1.82 H (<0.60) mg/L FEU Carbon Dioxide (22-30) mmol/L BUN (7-17) mg/dL Glucose (74-99) mg/dL POC Glucose (mg/dL) 196 H (75-99) mg/dL AST (14-36) U/L ALT (4-34) U/L Alkaline Phosphatase (38-126) U/L Total Protein (6.3-8.2) g/dL Albumin (3.5-5.0) g/dL Assessment and Plan Plan: Assessment: #1. Acute on chronic hypoxic respiratory failure related to acute COVID 19 pneumonia, patient's symptoms started last week on with 7 days of presentation, she tested positive on 01/30/2021 in the emergency department #2. Recent hospitalization for acute exacerbation of COPD, was negative for COVID 19 at that time, discharged home on 01/17/2021 #3. Elevated transaminases, possibly related to acute COVID 19 infection, lipase and amylase were negative, gallbladder ultrasound showing some sludge, gallbladder lorenzana within normal limits #4. Elevated d-dimer, patient is on Eliquis for history of A. fib, no evidence of PE on the CT chest #5. Possible urinary tract infection, send a urine culture #6. Diarrhea, rule out C. diff #7. History of COPD, stage III at baseline, with chronic hypoxic respiratory failure #8. Significantly elevated inflammatory markers related to COVID 19 #9. History of A. fib on Eliquis #10. Myocardial infarction #11. History of brain aneurysm with clippings #12. DJD Plan: We will decrease IV Solu-Medrol 40 mg every 8 hours hours Continue weaning FiO2 Continue oral anticoagulation Physical therapy consultation Patient is critically improving but generally weak Discharge planning is for subacute rehab after discharge likely on Thursday to on the [facility] I performed a history & physical examination of the patient and discussed their management with my nurse practitioner, Darcy Mccartney. I reviewed the nurse practitioner's note and agree with the documented findings and plan of care. Lung sounds are positive for diminished breath sounds. The findings and the impression was discussed with the patient. I attest to the documentation by the nurse practitioner. Time with Patient: Less than 30
[2021-02-09 16:46] LABS: Glucose,Whole Blood 160 mg/dL (75-99)
--- NOTE | 2021-02-09 18:45 | PN ---
PROGRESS NOTE DATE OF SERVICE: 02/09/2021 REASON FOR FOLLOWUP VISIT: Covid 19 pneumonia. INTERVAL HISTORY: Patient is afebrile. The patient is breathing comfortably down to 4 L nasal cannula. Denies any chest pain or any worsening cough. No abdominal pain or diarrhea. PHYSICAL EXAMINATION: Blood pressure 125/74, pulse of 65. Temp is 97.8. She is 92% on 4 L nasal cannula. General description is a middle-aged female lying in bed in no distress. Respiratory system: Unlabored breathing, clear to auscultation anteriorly. Heart S1, S2. Regular rate and rhythm. Abdomen soft, no tenderness. LABORATORY DATA: Hemoglobin is 12.7, white count 16.8. BUN of 10, creatinine 0.85. DIAGNOSTIC IMPRESSION AND PLAN: Patient with acute COVID-19 pneumonia in this patient who has shown overall clinical improvement. The patient with no significant change. The patient to continue with Eliquis, Solu-Medrol, zinc and ascorbic acid and monitor clinical course closely. MMODL / IJN: [id number] /
[2021-02-09 20:07] LABS: Glucose,Whole Blood 189 mg/dL (75-99)
[2021-02-09] MEDS: MONTELUKAST 10 MG TAB PO SCH (20:09)
[2021-02-09] MEDS: ATORVASTATIN 80 MG TAB PO SCH (20:09)
[2021-02-09] MEDS: ACETAMINOPHEN TAB 325 MG TAB PO PRN (20:11)
[2021-02-10] MEDS: methylPREDNISolone SOD SUCCI 125 MG/2 ML VIAL IV SCH ×2 (05:00→12:46)
[2021-02-10 07:09] LABS: Glucose,Whole Blood 189 mg/dL (75-99)
[2021-02-10] MEDS: ZINC SULFATE 220 MG CAP PO SCH (08:07)
[2021-02-10] MEDS: ASCORBIC ACID 500 MG TAB PO SCH ×2 (08:07→20:40)
[2021-02-10] MEDS: APIXABAN 5 MG TAB PO SCH ×2 (08:07→20:40)
[2021-02-10] MEDS: CHOLECALCIFEROL 25 MCG (1000 IU) TABLET PO SCH (08:07)
[2021-02-10] MEDS: lisinopriL 5 MG TAB PO SCH (08:07)
[2021-02-10] MEDS: AMIODARONE 200 MG TAB PO SCH ×2 (08:07→20:40)
[2021-02-10] MEDS: amLODIPine 5 MG TAB PO SCH (08:07)
[2021-02-10] MEDS: INSULIN ASPART (NovoLOG) 100 UNIT/ML VIAL SQ SCH ×4 (08:07→21:57)
[2021-02-10] MEDS: PANTOPRAZOLE 40 MG TABLET PO SCH (08:08)
[2021-02-10] MEDS: SYMBICORT 160-4.5 MCG INHALER INHALATION SCH ×2 (08:28→20:30)
[2021-02-10] MEDS: ALBUTEROL HFA INHALER INHALATION SCH ×4 (08:28→20:30)
[2021-02-10 11:22] LABS: Basophils # (A) 0.04 X 10*3/uL (0.00-0.10); Basophils % (A) 0.2 %; Eosinophils # (A) 0 X 10*3/uL (0.04-0.35); Eosinophils % (A) 0 %; HCT 35.1 % (37.2-46.3); HGB 10.8 g/dL (12.0-15.0); Lymphocytes # (A) 0.59 X 10*3/uL (0.90-5.00); Lymphocytes % (A) 3.2 %; MCH 26.8 pg (27.0-32.0); MCHC 30.8 g/dL (32.0-37.0); MCV 87.1 fL (80.0-97.0); Mean Platelet Volume 10.5 fL (9.5-12.2); Monocytes # (A) 1.03 X 10*3/uL (0.20-1.00); Monocytes % (A) 5.6 %; Neutrophils # (A) 16.09 X 10*3/uL (1.80-7.70); Neutrophils % (A) 86.8 %; Platelet Count 369 X 10*3/uL (140-440); RBC 4.03 X 10*6/uL (4.10-5.20); RDW 16.7 % (11.5-14.5); WBC 18.52 X 10*3/uL (4.50-10.00)
[2021-02-10 11:42] LABS: Glucose,Whole Blood 144 mg/dL (75-99)
[2021-02-10 11:47] LABS: African American GFR (CKD) 112.4 (60.0-200.0); Anion Gap 5.6 mmol/L (4.00-12.00); Calcium 8.6 mg/dL (8.7-10.3); Carbon Dioxide 35.4 mmol/L (21.6-31.8); Potassium 5.3 mmol/L (3.5-5.5)
--- NOTE | 2021-02-10 15:29 | P.PN ---
Subjective Progress Note Date: 02/10/21 Principal diagnosis: Acute on chronic hypoxic respiratory failure secondary to acute COVID 19 pneumonia and history of underlying COPD 65-year-old white female patient who is familiar to our service from her previous history of hospitalizations for complications related to her underlying history of COPD stage III, on home oxygen. She follows with Dr. Artis in the pulmonary clinic. She is normally on 2 L of oxygen on a regular basis, patient had recent hospitalization for acute exacerbation of COPD complicated by purulent tracheal bronchitis. Her other medical history significant for hypertension, history of A. fib, previous history of CVA, ND, osteoarthritis, previous history of brain aneurysm with clipping, and previous history of smoking. She was discharged home on 01/17/2021, and was feeling well for a while, last week on she started feeling worse, denied any worsening dyspnea, she is chronically short of breath and that did not seem to get any w orse, however she is feeling very weak, she developed profuse diarrhea which she states is uncontrollable, and overall she feels quite rundown. She is also having some chest discomfort in the anterior sternal area which is worse with coughing and moving around, and some abdominal tenderness in the right upper and lower quadrants, but no nausea or vomiting, abdomen is soft. Chest x-ray in the emergency department shows COPD interstitial pneumonitis small bilateral pleural effusions, and a basilar consolidation. COVID 19 PCR was positive. Admission labs showed white blood cell count 5.4, hemoglobin is 12.7, platelet count is 60, d-dimer was increased at 9.7 to the patient is on Eliquis on a regular basis for history of A. fib, CTA chest was completed, however there was breathing motion artifact, but no evidence of large central or lobar branch pulmonary embolus, many segmental and more distal arterial branches were nondiagnostic, there were multifocal bilateral patchy and confluent groundglass opacities and a trace pleural effusions. There was a small hiatal hernia. Her enzymes were significantly elevated and ultrasound of the gallbladder was completely showing hepatomegaly, and sludge within the gallbladder. Currently patient is up to 8 L of oxygen, her pulse ox is 93%, hemodynamically she stable, she is in sinus mechanism, slightly tachycardic on the monitor. Troponin was 0.021. Her inflammatory markers were significantly elevated with LDH of 4970, and CRP is 203.5. AST was 1441, and ALT was 2053, total bilirubin was 0.9, and alk phos was 79. Urinalysis was positive for 2+ protein, nitrates, many bacteria. She is on Rocephin for empiric coverage, hepatitis panel was nonreactive, Tylenol level was less than 10. Amylase and lipase were negative at 43 and 53 re spectively. Patient was started on Decadron 6 milligram daily, her Eliquis continues, and patient is on amiodarone and Lipitor. Stool for C. diff has been ordered, cultures have been sent Reevaluated today on 02/01/21, patient seems to be doing fairly well, her O2 saturations 91% on 2 L nasal cannula. Patient was on 8 L on admission. Patient is normally on oxygen and home, she does have underlying COPD. Remains on the Covid 19 cocktail. Remains on bronchodilators. Patient did not receive REM mostly because of her liver enzymes being quite elevated. Remain elevated today but trending admitted down especially her ALT is down to 1798 from 2053 Patient was reevaluated today on 02/02/2021, remains on high flow oxygen, now she is on 8 L, O2 sats is ranging anywhere between 91% up to 97%. Today it is 94%. Patient looks comfortable, not in any distress. No labs were drawn today, but her labs from yesterday were reviewed, liver enzymes are improving a bit with ALT down to 1534 and AST is down to 758. Her last CT angiogram was on 01/31 which I have noted above. On 02/03/2021 patient seen in follow-up on medical floor, she is currently at 8 L of oxygen pulse ox is 91%, she is doing better, her LDH and CRP remain elevated but improving, her cough has improved, she started to bring up some yellowish colored phlegm, no hemoptysis, pro-calcitonin was 0.22, she is currently on oral Decadron, she continues on Robitussin, she is on inhalers, she is on oral anticoagulation in the form of Eliquis for her history of A. fib. Her liver enzymes were starting to improve. No acute events overnight. Patient was not a candidate for Remdesivir related to elevated liver enzymes. She cont inues on supportive treatment. On 02/06/2021 patient seen in follow-up on medical surgical floor, she continues to be on high flow oxygen chronically at 10 L, and her pulse ox is between 93- 98%, this can probably be weaned down. Appears to be breathing comfortably, she is afebrile, hemodynamically stable, no chest discomfort. Still has a cough with occasional sputum, no hemoptysis, no nausea vomiting or abdominal pain. She continues on Eliquis, Solu-Medrol, and multivitamins. She is clinically improving. Today's d-dimer is 5.46, electrolytes are unremarkable, liver enzymes are improving, AST is down to 305, ALT is 1001, alkaline phosphatase is 212, pro-calcitonin level is low at 0.22. She's had no fever or chills. No nausea vomiting or diarrhea. On 02/07/2021 patient seen in follow-up on medical surgical floor, she is improving, she is up in the chair, less bronchospastic less dyspneic, peripheral 6 L of oxygen, her pulse ox is 96%, this can probably be weaned little bit furth er, looks comfortable, breathing comfortably, denies any chest discomfort, no new chest x-ray today, today's labs have been noted, her last d-dimer from yesterday was still elevated although trending down at 5.46, BUN was 25, creatinine was 0.6, CO2 is 36, the rest of electrolytes were unremarkable, her LDH was also trending down, and was down to 717 on yesterday's labs, and CRP was down to 4.2, pro-calcitonin level was low at 0.22, and her LFTs are improving. She remains on being treatments, IV steroids 60 mg every 6 hours, and oral anticoagulation in the form of Eliquis. On 02/09/2021 patient seen in follow-up. Currently down to 4 L of oxygen, she feels that she is improving, breathing much easier, although generally remains weak, she was up to the chair, lung sounds reveal some diffuse wheezes, and coarse crackles, no fever or chills, overall feeling better, taste chest x-ray shows mild cardiomegaly and chronic emphysematous changes with bilateral multifocal lung opacities, consistent with COVID-19 pneumonia, stable in appearance. Today's labs have been reviewed showing d-dimer of 1.82, white blood cell count 16.9, stable, LFTs are improving, and inflammatory markers were improving, and we'll obtain follow-up inflammatory markers today. She is on oral anticoagulation in the form of Eliquis, she remains on pulmonary treatments, IV Solu-Medrol 60 every 6 hours. On 02/10/2001 patient seen in follow-up on medical surgical floor, she is improving, she is breathing easier, today she is at 4 L, and her pulse ox is 95%, she is still coughing, her cough is nonproductive, without chest pain, she continues on IV Solu-Medrol 60 mg every 6 hours, today's exam revealed some scattered wheezing, the patient is less bronchospastic on today's exam, overall she is improving, today's labs have been reviewed , blood cell count is 18.5, hemoglobin is 10.8, her last d-dimer from yesterday was 1.82, sodium is 146, respiratory lites are unremarkable, CO2 is 35.4. Her LFTs were improving, troponin is negative, we'll obtain a follow-up LDH and CRP. She's had no fever or chills. Objective - Vital Signs Vital signs: Vital Signs Temp 97.6 F 02/10/21 14:00 Pulse 71 02/10/21 14:00 Resp 18 02/10/21 14:00 BP 155/75 02/10/21 14:00 Pulse Ox 95 02/10/21 14:00 Intake & Output 02/09/21 02/10/21 02/10/21 18:59 06:59 18:59 Intake Total 1100 800 Balance 1100 800 Intake: Oral 1100 800 Other: Voiding Method Bedpan # Voids 2 1 - Exam GENERAL EXAM: Alert, pleasant, 65-year-old white female, currently on 4 L of oxygen, with a pulse ox of 95% HEAD: Normocephalic/atraumatic. EYES: Normal reaction of pupils, equal size. Conjunctiva pink, sclera white. NOSE: Clear with pink turbinates. THROAT: No erythema or exudates. NECK: No masses, no JVD, no thyroid enlargement, no adenopathy. CHEST: No chest wall deformity. Symmetrical expansion. LUNGS: Equal air entry with bilateral crackles and some scattered wheezes CVS: Regular rate and rhythm, normal S1 and S2, no gallops, no murmurs, no rubs ABDOMEN: Soft, nontender. No hepatosplenomegaly, normal bowel sounds, no guarding or rigidity. Mild tenderness with palpation in the right upper and lower quadrant EXTREMITIES: No clubbing, no edema, no cyanosis, 2+ pulses and upper and lower extremities. MUSCULOSKELETAL: Muscle strength and tone normal. SPINE: No scoliosis or deformity SKIN: No rashes CENTRAL NERVOUS SYSTEM: Alert and oriented -3. No focal deficits, tone is normal in all 4 extremities. PSYCHIATRIC: Alert and oriented -3. Appropriate affect. Intact judgment and insight. - Labs CBC & Chem 7: 02/10/21 07:09 02/10/21 07:09 Labs: Abnormal Lab Results - Last 24 Hours (Table) 02/09/21 02/09/21 02/10/21 Range/Units 16:33 20:05 07:06 WBC (4.50-10.00) X 10*3/uL RBC (4.10-5.20) X 10*6/uL Hgb (12.0-15.0) g/dL Hct (37.2-46.3) % MCH (27.0-32.0) pg MCHC (32.0-37.0) g/dL RDW (11.5-14.5) % Immature Gran # (0.00-0.04) X 10*3/uL Neutrophils # (1.80-7.70) X 10*3/uL Lymphocytes # (0.90-5.00) X 10*3/uL Monocytes # (0.20-1.00) X 10*3/uL Eosinophils # (0.04-0.35) X 10*3/uL Sodium (135-145) mmol/L Carbon Dioxide (21.6-31.8) mmol/L BUN (9.0-27.0) mg/dL BUN/Creatinine Ratio (12.00-20.00) Ratio Glucose (70-110) mg/dL POC Glucose (mg/dL) 160 H 189 H 189 H (75-99) mg/dL Calcium (8.7-10.3) mg/dL 02/10/21 02/10/21 02/10/21 Range/Units 07:09 07:09 11:40 WBC 18.52 H (4.50-10.00) X 10*3/uL RBC 4.03 L (4.10-5.20) X 10*6/uL Hgb 10.8 L (12.0-15.0) g/dL Hct 35.1 L (37.2-46.3) % MCH 26.8 L (27.0-32.0) pg MCHC 30.8 L (32.0-37.0) g/dL RDW 16.7 H (11.5-14.5) % Immature Gran # 0.77 H (0.00-0.04) X 10*3/uL Neutrophils # 16.09 H (1.80-7.70) X 10*3/uL Lymphocytes # 0.59 L (0.90-5.00) X 10*3/uL Monocytes # 1.03 H (0.20-1.00) X 10*3/uL Eosinophils # 0 L (0.04-0.35) X 10*3/uL Sodium 146 H (135-145) mmol/L Carbon Dioxide 35.4 H (21.6-31.8) mmol/L BUN 30.0 H (9.0-27.0) mg/dL BUN/Creatinine Ratio 50.00 H (12.00-20.00) Ratio Glucose 188 H (70-110) mg/dL POC Glucose (mg/dL) 144 H (75-99) mg/dL Calcium 8.6 L (8.7-10.3) mg/dL Assessment and Plan Plan: Assessment: #1. Acute on chronic hypoxic respiratory failure related to acute COVID 19 pneumonia, patient's symptoms started last week on with 7 days of presentation, she tested positive on 01/30/2021 in the emergency department #2. Recent hospitalization for acute exacerbation of COPD, was negative for COV ID 19 at that time, discharged home on 01/17/2021 #3. Elevated transaminases, possibly related to acute COVID 19 infection, lipase and amylase were negative, gallbladder ultrasound showing some sludge, gallbladder lorenzana within normal limits #4. Elevated d-dimer, patient is on Eliquis for history of A. fib, no evidence of PE on the CT chest #5. Possible urinary tract infection, send a urine culture #6. Diarrhea, rule out C. diff #7. History of COPD, stage III at baseline, with chronic hypoxic respiratory failure #8. Significantly elevated inflammatory markers related to COVID 19 #9. History of A. fib on Eliquis #10. Myocardial infarction #11. History of brain aneurysm with clippings #12. DJD Plan: We will obtain follow-up chest x-ray Follow-up inflammatory markers LFTs, electrolyte and renal profile We will decrease IV Solu-Medrol 40 mg every 8 hours hours Continue weaning FiO2 Continue oral anticoagulation Physical therapy consultation Patient is critically improving but generally weak Discharge planning is for subacute rehab after discharge likely on Thursday to [facility] on the [facility] Time with Patient: Less than 30
[2021-02-10] MEDS: methylPREDNISolone SOD SUCCI 40 MG/ML 1 ML VIAL IV SCH (15:50)
[2021-02-10 16:58] LABS: Glucose,Whole Blood 175 mg/dL (75-99)
[2021-02-10] MEDS: NYSTATIN 100,000 UNIT/ML SUSP 500,000 UNIT/5 ML CUP PO SCH ×2 (17:27→20:40)
--- NOTE | 2021-02-10 18:17 | PN ---
PROGRESS NOTE DATE OF SERVICE: 02/10/2021 REASON FOR FOLLOWUP: COVID-19 pneumonia. INTERVAL HISTORY: Patient is afebrile. The patient is breathing comfortably. Still complaining of cough, bringing up some sputum. Did mention has some more congestion this morning. No vomiting. No abdominal pain or diarrhea. PHYSICAL EXAMINATION: Blood pressure 137/77, pulse of 69, temperature of 98. She is 95% on 4 L nasal cannula. General description is a middle-aged female lying in bed in no distress. Respiratory system: Unlabored breathing. Clear to auscultation anteriorly. Heart S1, S2. Regular rate and rhythm. ABDOMEN: Soft, no tenderness. LABS: Hemoglobin 10, white count of 18.8. BUN of 30, creatinine 0.6. DIAGNOSTIC IMPRESSION AND PLAN: 1. Patient with acute COVID-19 infection in this patient seemed to have clinically responded to the current supportive treatment of Eliquis, Solu-Medrol , zinc and ascorbic acid. 2. Patient elevated white count more likely steroid effect, plus/minus oral thrush. Will add nystatin swish and swallow. Diflucan could not be patient is on amiodarone and we will monitor clinical course closely. MMODL / IJN: [id number] /
[2021-02-10] MEDS: MONTELUKAST 10 MG TAB PO SCH (20:40)
[2021-02-10] MEDS: ATORVASTATIN 80 MG TAB PO SCH (20:40)
[2021-02-10 21:52] LABS: Glucose,Whole Blood 166 mg/dL (75-99)
[2021-02-11] MEDS: methylPREDNISolone SOD SUCCI 40 MG/ML 1 ML VIAL IV SCH ×4 (00:22→23:18)
[2021-02-11 07:02] LABS: Glucose,Whole Blood 144 mg/dL (75-99)
[2021-02-11] MEDS: INSULIN ASPART (NovoLOG) 100 UNIT/ML VIAL SQ SCH ×4 (07:49→20:02)
[2021-02-11] MEDS: PANTOPRAZOLE 40 MG TABLET PO SCH (07:49)
[2021-02-11] MEDS: amLODIPine 5 MG TAB PO SCH (07:49)
[2021-02-11] MEDS: APIXABAN 5 MG TAB PO SCH ×2 (07:50→20:00)
[2021-02-11] MEDS: ASCORBIC ACID 500 MG TAB PO SCH ×2 (07:50→20:00)
[2021-02-11] MEDS: ZINC SULFATE 220 MG CAP PO SCH (07:50)
[2021-02-11] MEDS: CHOLECALCIFEROL 25 MCG (1000 IU) TABLET PO SCH (07:50)
[2021-02-11] MEDS: AMIODARONE 200 MG TAB PO SCH ×2 (07:50→20:00)
[2021-02-11] MEDS: NYSTATIN 100,000 UNIT/ML SUSP 500,000 UNIT/5 ML CUP PO SCH ×4 (07:50→20:00)
[2021-02-11] MEDS: lisinopriL 5 MG TAB PO SCH (07:50)
[2021-02-11] MEDS: ALBUTEROL HFA INHALER INHALATION SCH ×4 (08:26→21:23)
[2021-02-11] MEDS: SYMBICORT 160-4.5 MCG INHALER INHALATION SCH ×2 (08:26→21:23)
--- NOTE | 2021-02-11 09:11 | XR ---
EXAMINATION TYPE: XR chest 1V portable DATE OF EXAM: 02/11/2021 COMPARISON: Chest x-ray 02/09/2021 HISTORY: Covid pneumonia TECHNIQUE: Single frontal view of the chest is obtained. FINDINGS: Bilateral airspace disease is again seen. Interstitium is increased. There is no evident p neumothorax or pleural effusion. Cardiac mediastinal silhouette is unchanged. IMPRESSION: Findings consistent with patient's history of Covid pneumonia.
[2021-02-11 10:30] LABS: Basophils # (A) 0.03 X 10*3/uL (0.00-0.10); Basophils % (A) 0.2 %; Eosinophils # (A) 0 X 10*3/uL (0.04-0.35); Eosinophils % (A) 0 %; HCT 34.1 % (37.2-46.3); HGB 10.6 g/dL (12.0-15.0); Lymphocytes # (A) 0.57 X 10*3/uL (0.90-5.00); Lymphocytes % (A) 3.4 %; MCHC 31.1 g/dL (32.0-37.0); MCV 86.8 fL (80.0-97.0); Mean Platelet Volume 10.4 fL (9.5-12.2); Monocytes # (A) 0.83 X 10*3/uL (0.20-1.00); Monocytes % (A) 4.9 %; Neutrophils # (A) 14.94 X 10*3/uL (1.80-7.70); Neutrophils % (A) 88.3 %; Platelet Count 304 X 10*3/uL (140-440); RBC 3.93 X 10*6/uL (4.10-5.20); RDW 16.6 % (11.5-14.5); WBC 16.91 X 10*3/uL (4.50-10.00)
[2021-02-11 10:49] LABS: ALT 594 U/L (8-44); AST 129 U/L (13-35); African American GFR (CKD) 112.4 (60.0-200.0); Alkaline Phosphatase 172 U/L (41-126); C Reactive Protein <0.4 mg/dL (0.0-0.8); Calcium 8.8 mg/dL (8.7-10.3); Carbon Dioxide 32.2 mmol/L (21.6-31.8); Chloride 103 mmol/L (96-109); Globulin 1.6 g/dL (1.6-3.3); Glucose 144 mg/dL (70-110); LDH 538 U/L (120-246); Potassium 4.6 mmol/L (3.5-5.5); Sodium 141 mmol/L (135-145); Total Bilirubin 0.4 mg/dL (0.3-1.2); Total Protein 4.8 g/dL (6.2-8.2)
[2021-02-11 11:30] LABS: Glucose,Whole Blood 173 mg/dL (75-99)
--- NOTE | 2021-02-11 15:34 | P.PN ---
Subjective Progress Note Date: 02/11/21 Principal diagnosis: Acute on chronic hypoxic respiratory failure secondary to acute COVID 19 pneumonia and history of underlying COPD 65-year-old white female patient who is familiar to our service from her previous history of hospitalizations for complications related to her underlying history of COPD stage III, on home oxygen. She follows with Dr. Artis in the pulmonary clinic. She is normally on 2 L of oxygen on a regular basis, patient had recent hospitalization for acute exacerbation of COPD complicated by purulent tracheal bronchitis. Her other medical history significant for hypertension, history of A. fib, previous history of CVA, CO, osteoarthritis, previous history of brain aneurysm with clipping, and previous history of smoking. She was discharged home on 01/17/2021, and was feeling well for a while, last week on she started feeling worse, denied any worsening dyspnea, she is chronically short of breath and that did not seem to get any w orse, however she is feeling very weak, she developed profuse diarrhea which she states is uncontrollable, and overall she feels quite rundown. She is also having some chest discomfort in the anterior sternal area which is worse with coughing and moving around, and some abdominal tenderness in the right upper and lower quadrants, but no nausea or vomiting, abdomen is soft. Chest x-ray in the emergency department shows COPD interstitial pneumonitis small bilateral pleural effusions, and a basilar consolidation. COVID 19 PCR was positive. Admission labs showed white blood cell count 5.4, hemoglobin is 12.7, platelet count is 60, d-dimer was increased at 9.7 to the patient is on Eliquis on a regular basis for history of A. fib, CTA chest was completed, however there was breathing motion artifact, but no evidence of large central or lobar branch pulmonary embolus, many segmental and more distal arterial branches were nondiagnostic, there were multifocal bilateral patchy and confluent groundglass opacities and a trace pleural effusions. There was a small hiatal hernia. Her enzymes were significantly elevated and ultrasound of the gallbladder was completely showing hepatomegaly, and sludge within the gallbladder. Currently patient is up to 8 L of oxygen, her pulse ox is 93%, hemodynamically she stable, she is in sinus mechanism, slightly tachycardic on the monitor. Troponin was 0.021. Her inflammatory markers were significantly elevated with LDH of 4970, and CRP is 203.5. AST was 1441, and ALT was 2053, total bilirubin was 0.9, and alk phos was 79. Urinalysis was positive for 2+ protein, nitrates, many bacteria. She is on Rocephin for empiric coverage, hepatitis panel was nonreactive, Tylenol level was less than 10. Amylase and lipase were negative at 43 and 53 re spectively. Patient was started on Decadron 6 milligram daily, her Eliquis continues, and patient is on amiodarone and Lipitor. Stool for C. diff has been ordered, cultures have been sent Reevaluated today on 02/01/21, patient seems to be doing fairly well, her O2 saturations 91% on 2 L nasal cannula. Patient was on 8 L on admission. Patient is normally on oxygen and home, she does have underlying COPD. Remains on the Covid 19 cocktail. Remains on bronchodilators. Patient did not receive REM mostly because of her liver enzymes being quite elevated. Remain elevated today but trending admitted down especially her ALT is down to 1798 from 2053 Patient was reevaluated today on 02/02/2021, remains on high flow oxygen, now she is on 8 L, O2 sats is ranging anywhere between 91% up to 97%. Today it is 94%. Patient looks comfortable, not in any distress. No labs were drawn today, but her labs from yesterday were reviewed, liver enzymes are improving a bit with ALT down to 1534 and AST is down to 758. Her last CT angiogram was on 01/31 which I have noted above. On 02/03/2021 patient seen in follow-up on medical floor, she is currently at 8 L of oxygen pulse ox is 91%, she is doing better, her LDH and CRP remain elevated but improving, her cough has improved, she started to bring up some yellowish colored phlegm, no hemoptysis, pro-calcitonin was 0.22, she is currently on oral Decadron, she continues on Robitussin, she is on inhalers, she is on oral anticoagulation in the form of Eliquis for her history of A. fib. Her liver enzymes were starting to improve. No acute events overnight. Patient was not a candidate for Remdesivir related to elevated liver enzymes. She cont inues on supportive treatment. On 02/06/2021 patient seen in follow-up on medical surgical floor, she continues to be on high flow oxygen chronically at 10 L, and her pulse ox is between 93- 98%, this can probably be weaned down. Appears to be breathing comfortably, she is afebrile, hemodynamically stable, no chest discomfort. Still has a cough with occasional sputum, no hemoptysis, no nausea vomiting or abdominal pain. She continues on Eliquis, Solu-Medrol, and multivitamins. She is clinically improving. Today's d-dimer is 5.46, electrolytes are unremarkable, liver enzymes are improving, AST is down to 305, ALT is 1001, alkaline phosphatase is 212, pro-calcitonin level is low at 0.22. She's had no fever or chills. No nausea vomiting or diarrhea. On 02/07/2021 patient seen in follow-up on medical surgical floor, she is improving, she is up in the chair, less bronchospastic less dyspneic, peripheral 6 L of oxygen, her pulse ox is 96%, this can probably be weaned little bit furth er, looks comfortable, breathing comfortably, denies any chest discomfort, no new chest x-ray today, today's labs have been noted, her last d-dimer from yesterday was still elevated although trending down at 5.46, BUN was 25, creatinine was 0.6, CO2 is 36, the rest of electrolytes were unremarkable, her LDH was also trending down, and was down to 717 on yesterday's labs, and CRP was down to 4.2, pro-calcitonin level was low at 0.22, and her LFTs are improving. She remains on being treatments, IV steroids 60 mg every 6 hours, and oral anticoagulation in the form of Eliquis. On 02/09/2021 patient seen in follow-up. Currently down to 4 L of oxygen, she feels that she is improving, breathing much easier, although generally remains weak, she was up to the chair, lung sounds reveal some diffuse wheezes, and coarse crackles, no fever or chills, overall feeling better, taste chest x-ray shows mild cardiomegaly and chronic emphysematous changes with bilateral multifocal lung opacities, consistent with COVID-19 pneumonia, stable in appearance. Today's labs have been reviewed showing d-dimer of 1.82, white blood cell count 16.9, stable, LFTs are improving, and inflammatory markers were improving, and we'll obtain follow-up inflammatory markers today. She is on oral anticoagulation in the form of Eliquis, she remains on pulmonary treatments, IV Solu-Medrol 60 every 6 hours. On 02/10/2001 patient seen in follow-up on medical surgical floor, she is improving, she is breathing easier, today she is at 4 L, and her pulse ox is 95%, she is still coughing, her cough is nonproductive, without chest pain, she continues on IV Solu-Medrol 60 mg every 6 hours, today's exam revealed some scattered wheezing, the patient is less bronchospastic on today's exam, overall she is improving, today's labs have been reviewed , blood cell count is 18.5, hemoglobin is 10.8, her last d-dimer from yesterday was 1.82, sodium is 146, respiratory lites are unremarkable, CO2 is 35.4. Her LFTs were improving, troponin is negative, we'll obtain a follow-up LDH and CRP. She's had no fever or chills. On 02/12/2020 patient seen in follow-up on medical surgical floor, she is currently on 4 L of oxygen pulse ox of 96%, she normally wears 2 L of home, she seems to be breathing comfortably, lung sounds reveal minimal wheezing, she denies any creased dyspnea and cough or congestion, she remains on Solu-Medrol 40 mg every 8 hours, she is on inhalers, and she is on oral anticoagulation the form of Eliquis. Today's labs have been reviewed, her white count is improving, down to 16.9, patient has had no fever, hemoglobin is 10.6, CO2 is 32, the rest of electrolytes are unremarkable, BUN is 30 creatinine 0.6, inflammatory markers are improving, LDH is 538, and CRP is less than 0.4 on today's labs. Objective - Vital Signs Vital signs: Vital Signs Temp 98.7 F 02/11/21 13:00 Pulse 69 02/11/21 13:00 Resp 18 02/11/21 13:00 BP 132/65 02/11/21 13:00 Pulse Ox 96 02/11/21 13:00 Intake & Output 02/10/21 02/11/21 02/11/21 18:59 06:59 18:59 Intake Total 800 840 Output Total 1000 Balance 800 -160 Intake: Oral 800 840 Output: Urine 1000 Other: # Voids 2 3 # Bowel Movements 1 - Exam GENERAL EXAM: Alert, pleasant, 65-year-old white female, currently on 4 L of oxygen, with a pulse ox of 95% HEAD: Normocephalic/atraumatic. EYES: Normal reaction of pupils, equal size. Conjunctiva pink, sclera white. NOSE: Clear with pink turbinates. THROAT: No erythema or exudates. NECK: No masses, no JVD, no thyroid enlargement, no adenopathy. CHEST: No chest wall deformity. Symmetrical expansion. LUNGS: Equal air entry with bilateral crackles and some scattered wheezes CVS: Regular rate and rhythm, normal S1 and S2, no gallops, no murmurs, no rubs ABDOMEN: Soft, nontender. No hepatosplenomegaly, normal bowel sounds, no guard ing or rigidity. Mild tenderness with palpation in the right upper and lower quadrant EXTREMITIES: No clubbing, no edema, no cyanosis, 2+ pulses and upper and lower extremities. MUSCULOSKELETAL: Muscle strength and tone normal. SPINE: No scoliosis or deformity SKIN: No rashes CENTRAL NERVOUS SYSTEM: Alert and oriented -3. No focal deficits, tone is normal in all 4 extremities. PSYCHIATRIC: Alert and oriented -3. Appropriate affect. Intact judgment and insight. - Labs CBC & Chem 7: 02/11/21 06:17 02/11/21 06:17 Labs: Abnormal Lab Results - Last 24 Hours (Table) 02/10/21 02/10/21 02/11/21 Range/Units 16:52 21:50 06:17 WBC 16.91 H (4.50-10.00) X 10*3/uL RBC 3.93 L (4.10-5.20) X 10*6/uL Hgb 10.6 L (12.0-15.0) g/dL Hct 34.1 L (37.2-46.3) % MCHC 31.1 L (32.0-37.0) g/dL RDW 16.6 H (11.5-14.5) % Immature Gran # 0.54 H (0.00-0.04) X 10*3/uL Neutrophils # 14.94 H (1.80-7.70) X 10*3/uL Lymphocytes # 0.57 L (0.90-5.00) X 10*3/uL Eosinophils # 0 L (0.04-0.35) X 10*3/uL Carbon Dioxide (21.6-31.8) mmol/L BUN (9.0-27.0) mg/dL BUN/Creatinine Ratio (12.00-20.00) Ratio Glucose (70-110) mg/dL POC Glucose (mg/dL) 175 H 166 H (75-99) mg/dL AST (13-35) U/L ALT (8-44) U/L Alkaline Phosphatase (41-126) U/L Lactate Dehydrogenase (120-246) U/L Total Protein (6.2-8.2) g/dL Albumin (3.80-4.90) g/dL 02/11/21 02/11/21 02/11/21 Range/Units 06:17 06:56 11:24 WBC (4.50-10.00) X 10*3/uL RBC (4.10-5.20) X 10*6/uL Hgb (12.0-15.0) g/dL Hct (37.2-46.3) % MCHC (32.0-37.0) g/dL RDW (11.5-14.5) % Immature Gran # (0.00-0.04) X 10*3/uL Neutrophils # (1.80-7.70) X 10*3/uL Lymphocytes # (0.90-5.00) X 10*3/uL Eosinophils # (0.04-0.35) X 10*3/uL Carbon Dioxide 32.2 H (21.6-31.8) mmol/L BUN 30.0 H (9.0-27.0) mg/dL BUN/Creatinine Ratio 50.00 H (12.00-20.00) Ratio Glucose 144 H (70-110) mg/dL POC Glucose (mg/dL) 144 H 173 H (75-99) mg/dL AST 129 H (13-35) U/L ALT 594 H (8-44) U/L Alkaline Phosphatase 172 H (41-126) U/L Lactate Dehydrogenase 538 H (120-246) U/L Total Protein 4.8 L (6.2-8.2) g/dL Albumin 3.20 L (3.80-4.90) g/dL Microbiology - Last 24 Hours (Table) 02/10/21 20:33 Gram Stain - Preliminary Sputum Sputum Culture - Preliminary Assessment and Plan Plan: Assessment: #1. Acute on chronic hypoxic respiratory failure related to acute COVID 19 pneumonia, patient's symptoms started last week on with 7 days of presentation, she tested positive on 01/30/2021 in the emergency department #2. Recent hospitalization for acute exacerbation of COPD, was negative for COVID 19 at that time, discharged home on 01/17/2021 #3. Elevated transaminases, possibly related to acute COVID 19 infection, lipase and amylase were negative, gallbladder ultrasound showing some sludge, gallbladder lorenzana within normal limits #4. Elevated d-dimer, patient is on Eliquis for history of A. fib, no evidence of PE on the CT chest #5. Possible urinary tract infection, send a urine culture #6. Diarrhea, rule out C. diff #7. History of COPD, stage III at baseline, with chronic hypoxic respiratory failure #8. Significantly elevated inflammatory markers related to COVID 19 #9. History of A. fib on Eliquis #10. Myocardial infarction #11. History of brain aneurysm with clippings #12. DJD Plan: Today's chest x-ray reviewed showing stable bilateral airspace disease related to COVID-19 pneumonia Inflammatory markers are improving The rest of labs have been noted May switch Solu-Medrol to prednisone 40 mg daily Continue weaning FiO2 Continue oral anticoagulation Physical therapy consultation Patient is stable for discharge to rehab today I performed a history & physical examination of the patient and discussed their management with my nurse practitioner, Darcy Mccartney. I reviewed the nurse practitioner's note and agree with the documented findings and plan of care. Lung sounds are positive for diminished breath sounds with bibasilar crackles. The findings and the impression was discussed with the patient. I attest to the documentation by the nurse practitioner. Time with Patient: Less than 30
--- NOTE | 2021-02-11 16:12 | PN ---
PROGRESS NOTE DATE OF SERVICE: 02/11/2021 REASON FOR FOLLOWUP: COVID-19 pneumonia. INTERVAL HISTORY: The patient is currently afebrile. Patient is breathing more comfortably. Patient denies having any chest pain. Cough, occasional sputum. No vomiting. No abdominal pain or diarrhea. PHYSICAL EXAMINATION: Blood pressure 132/65, pulse of 69, temperature 98.7. She is 96% on 4 L nasal cannula. General description is a middle-aged female up in the bed in no distress. RESPIRATORY SYSTEM: Unlabored breathing, decreased intensity of breath sounds. No wheeze. HEART: S1, S2. Regular rate and rhythm. ABDOMEN: Soft, no tenderness. LAB: Hemoglobin 10.6, white count 16.91. BUN of 30, creatinine 0.6. DIAGNOSTIC IMPRESSION AND PLAN: Patient with acute COVID-19 infection in this patient who has shown overall clinical improvement to the current supportive treatment and FiO2 is currently down to 4 L. Patient to continue with Solu-Medrol, Eliquis, zinc, ascorbic acid and monitor clinical course closely. MMODL / IJN: [id number] /
[2021-02-11 16:26] LABS: Glucose,Whole Blood 187 mg/dL (75-99)
[2021-02-11] MEDS: MONTELUKAST 10 MG TAB PO SCH (20:00)
[2021-02-11] MEDS: ATORVASTATIN 80 MG TAB PO SCH (20:00)
[2021-02-11 20:02] LABS: Glucose,Whole Blood 154 mg/dL (75-99)
--- NOTE | 2021-02-11 23:04 | P.PN ---
Subjective Progress Note Date: 02/09/21 Principal diagnosis: Acute hypoxic respiratory failure secondary to Covid pneumonia this is a pleasant 65 yo F with past medical history of atrial fibrillation on eliquis, coronary artery disease, COPD ON home oxygen ( 2 L/m), and f/u with , she quit smoking last august 2020, GERD, hyperlipidemia, osteoartheritis , chronic low back pain ,involving left leg numbness , scoliosis and seasonal ALLERGIES. She presents with some tachypnea, and covered with phlegm for more than 6-7 days associated with diarrhea for 3 days. No chest pain or abdominal pain. No nausea vomiting. She is hypoxemic needing a liter of oxygen via nasal cannula, she has low grade temperature of 100.2. Lap showing mild pancytopenia with WBC 4.4K, hemoglobin 11.3 and platelet 84. D-dimer is elevated 9.7, sodium 135, potassium 3.4, liver enzymes are elevated with normal total bilirubin of 0.8, AST is 1446 and ALT 1798. Amylase and lipase are normal. Urine analysis is mildly abnormal most likely due to dehydration. Sputum cultures pending EKG shows sinus tachycardia at [address]-T changes. QTC is 557. CT of the chest is negative for PE, showing emphysema and patchy ground glass appearance CT on both lungs. Gallbladder ultrasound showing gallbladder sludge and hepatomegaly, acute hepatitis panel is negative She is currently started on dexamethasone, she is already on Eliquis. She received fluids in the emergency room 02/01/2021 Patient respiratory distress is mild. No chest pain, no cough, diarrhea stopped. Oxygen saturation is stable on 8 L/m of oxygen via nasal cannula. showing improvement liver enzymes however they're still elevated. Patient remains on Eliquis, dexamethasone and multiple vitamins protocol with. No remdesivir due to elevated enzymes. 02/02/2021 Patient as a level of dyspnea as yesterday. No significant cough or chest pain and her diarrhea stopped. Her oxygen requirement is the same at 8 L/m via high flow nasal cannula. No labs from today. Patient remains on dexamethasone 6 mg daily, 1 dose OF MEDROL IS ADMITTED TODAY BECAUSE SHE WAS WHEEZING IN THE MORNING. PATIENT IS KNOWN CASE OF COPD SHE IS ON HOME OXYGEN AT 2 L/M AND SHE FOLLOWS UP WITH DR. ELLIS IN THE OUTPATIENT SETTING. CHECK LABS TOMORROW INCLUDING INFLAMMATORY MARKERS Chief continue with dexamethasone, Eliquis, multiple vitamins protocol that. 02/03/2021 Patient still with some dyspnea and needing 8 L of oxygen per minute to keep her saturation above 90%. No chest pain or significant diarrhea. Patient still have some cough and treated symptomatically. Patient hemodynamically stable other than that. Her labs included significant improvement with CBC with normal WBC and platelet count, hemoglobin stable at 11. LDH is trending down slowly to 4001 and C-reactive protein improved to 57. Liver enzymes are trending down. Patient remains on Eliquis, dexamethasone and multiple vitamins for covid 02/04/2021 Patient today is limited more wheezy and dyspneic with oxygen saturation went up to 2 L/m via nasal cannula. Cele with no chest pain or significant diarrhea. She is coughing somewhat phlegm and she refuses cough medicine because she was to clear her lungs as she states. D-dimer is coming down 9.7 down to 6.8, slightly improving inflammatory markers with LDH down to 35-7 and C-reactive protein to 41 0.8. Pulmonary team, and to continue same medication and check LFTs in the morning Patient remains on dexamethasone, vitamin C, D and zinc and Eliquis 5 mg. Norvasc added for better blood pressure control today 02/05/2021 Patient is currently lying in the bed awake alert and oriented. Feeling anxio us. Still dyspneic with ambulation. No fever no chills. Currently on 10 L oxygen via nasal cannula. No complaints of chest pain. Patient is being continued on dexamethasone 6 mg daily and also anticoagulation with Eliquis due to chronic atrial fibrillation. Laboratory data showed AST 513, ALT 1252 and alk phos 203 and LDH was 3527. Pulmonary is on board. 02/06/2021 Patient is lying in the bed awake alert and oriented. Still requiring high flow oxygen at 10 L via nasal cannula. Patient states that she feels slightly better today. Still having exertional dyspnea. No complaints of fever or chills. No cough or sputum production. No nausea vomiting abdominal pain or diarrhea. Patient being continued on dexamethasone and Eliquis for chronic atrial fibrillation. Laboratory data showed D-dimer 5.46 and AST 305 ALT 1001 and alk phos 212 and LDH trending down to 717 and CRP is 4.2 today. Pulmonary and ID is following. Chest x-ray showed correlate for pneumonia. 02/07/2021 Patient is currently sitting the chair comfortably. Patient states that her breathing is better. Oxygen requirement is trending down to 6 L via nasal cannula. No complaints of chest pain or shortness of the. Laboratory data showed WBC 14.8 hemoglobin 12.1 and platelets 418 Sodium 137 potassium 4.7 BUN 25 and creatinine 0.60 AST 332 ALT 905 alk phos 218. LFTs are improving. Patient is being continued on IV Solu-Medrol 60 mg every 6 hourly and anticoagulation in the form of Eliquis. Currently on mu ltivitamins. Patient has been afebrile. Tolerating oral diet. No nausea vomiting or abdominal pain. 02/08/2021 Patient is currently resting in the bed comfortably. Patient did complain of chest pain this morning. EKG showed normal sinus rhythm and troponin x1 -. Otherwise patient has been afebrile. Chest x-ray showed bilateral interstitial and alveolar infiltrates are stable correlate for interstitial pneumonia with superimposed consolidative pneumonia. Laboratory showed WBC 16.9, hemoglobin 11.4 and platelets 373 lymphocytes 0.6 and troponin x1 - 02/09/2021 Patient is currently lying in the bed comfortably. Requiring oxygen at 4 L via nasal cannula. Patient still having diffuse wheezing and coarse breath sounds. Patient has been afebrile. Chest x-ray today showed mild cardiomegaly and chronic emphysematous change with bilateral multifocal mid to lower lung opacities are redemonstrated consistent with COVID-19 infection. No significant change. Laboratory data showed WBC 16.9 hemoglobin 12.0 D-dimer 1.82 Sodium 139 BUN 27 creatinine 0.58 bicarb is 36, AST 2240 ALT 44 alk phos 208, liver functions are improving. Denied any nausea vomiting. Tolerating oral diet. Patient is being continued on IV Solu-Medrol and Eliquis Current medications reviewed. Objective - Vital Signs Vital signs: Vital Signs Temp 97.8 F 02/09/21 14:00 Pulse 65 02/09/21 14:00 Resp 18 02/09/21 14:00 BP 125/74 02/09/21 14:00 Pulse Ox 92 L 02/09/21 14:00 Intake & Output 02/08/21 02/09/21 02/09/21 18:59 06:59 18:59 Intake Total 700 Balance 700 Intake: Oral 700 Other: Voiding Method Bedpan Bedside Commode Bedpan # Voids 2 1 2 - Exam - Exam GENERAL: The patient is alert and oriented x3, not in any acute distress. Well developed, well nourished. HEENT: Pupils are round and equally reacting to light. EOMI. No scleral icterus. No conjunctival pallor. Normocephalic, atraumatic. No pharyngeal erythema. No thyromegaly. CARDIOVASCULAR: S1 and S2 present. No murmurs, rubs, or gallops. PULMONARY:Bilateral diffuse wheezing and coarse breath sounds. Nonlabored breathing.. ABDOMEN: Soft, nontender, nondistended, normoactive bowel sounds. No palpable organomegaly. MUSCULOSKELETAL: No joint swelling or deformity. EXTREMITIES: No cyanosis, clubbing, or pedal edema. NEUROLOGICAL: Gross neurological examination did not reveal any focal deficits. SKIN: No rashes. no petechiae. - Labs CBC & Chem 7: 02/11/21 06:17 02/11/21 06:17 Labs: Abnormal Lab Results - Last 24 Hours (Table) 02/09/21 02/09/21 02/09/21 Range/Units 07:26 07:40 07:40 WBC 16.9 H (3.8-10.6) k/uL RDW 15.8 H (11.5-15.5) % Neutrophils # 15.6 H (1.3-7.7) k/uL Lymphocytes # 0.6 L (1.0-4.8) k/uL D-Dimer (<0.60) mg/L FEU Carbon Dioxide 36 H (22-30) mmol/L BUN 27 H (7-17) mg/dL Glucose 171 H (74-99) mg/dL POC Glucose (mg/dL) 183 H (75-99) mg/dL AST 240 H (14-36) U/L ALT 744 H (4-34) U/L Alkaline Phosphatase 208 H (38-126) U/L Total Protein 5.1 L (6.3-8.2) g/dL Albumin 2.7 L (3.5-5.0) g/dL 02/09/21 02/09/21 02/09/21 Range/Units 07:40 11:18 16:33 WBC (3.8-10.6) k/uL RDW (11.5-15.5) % Neutrophils # (1.3-7.7) k/uL Lymphocytes # (1.0-4.8) k/uL D-Dimer 1.82 H (<0.60) mg/L FEU Carbon Dioxide (22-30) mmol/L BUN (7-17) mg/dL Glucose (74-99) mg/dL POC Glucose (mg/dL) 196 H 160 H (75-99) mg/dL AST (14-36) U/L ALT (4-34) U/L Alkaline Phosphatase (38-126) U/L Total Protein (6.3-8.2) g/dL Albumin (3.5-5.0) g/dL Assessment and Plan Assessment: acute bilateral covid pneumonia Acute hypoxic respiratory failure secondary to above, on chronic hypoxic respiratory failure Elevated inflammatory markers Covid gastroenteritis and hepatitis Elevated d-dimer with negative CTPA for pulmonary embolism. Patient is already on Eliquis Atrial fibrillation with history of stroke, on Eliquis History of coronary artery disease COPD, not in acute exacerbation Chronic hypoxic respiratory failure on 2 L of oxygen via nasal cannula History of GERD Hyperlipidemia Osteoarthritis Chronic low back pain Plan: this is a pleasant 65 years old female who presents with Covid pneumonia and hypoxia. Continue with Eliquis and dexamethasone, c/w vitamin C, vitamin D and zinc. Continue to titrate down oxygen. Incentive spirometry. Patient is currently on 6 L oxygen via nasal cannula. Pulmonary team evaluated the patient who decided patient is outside the window for remdesivir. Monitored liver enzymes Labs and medication were reviewed..Continue with symptomatic treatment. Monitor lytes and vitals. DVT and GI prophylaxis. Further recommendationsas per clinical course of the patient DVT prophylaxis: Eliquis GI Prophylaxis: Ppi PT/OT: Pending Prognosis is guarded Time with Patient: Greater than 30
[2021-02-11] MEDS ORDERED: ALBUTEROL HFA INHALER INHALATION PRN (23:05)
--- NOTE | 2021-02-11 23:06 | P.PN ---
Subjective Progress Note Date: 02/10/21 Principal diagnosis: Acute hypoxic respiratory failure secondary to Covid pneumonia this is a pleasant 65 yo F with past medical history of atrial fibrillation on eliquis, coronary artery disease, COPD ON home oxygen ( 2 L/m), and f/u with , she quit smoking last august 2020, GERD, hyperlipidemia, osteoartheritis , chronic low back pain ,involving left leg numbness , scoliosis and seasonal ALLERGIES. She presents with some tachypnea, and covered with phlegm for more than 6-7 days associated with diarrhea for 3 days. No chest pain or abdominal pain. No nausea vomiting. She is hypoxemic needing a liter of oxygen via nasal cannula, she has low grade temperature of 100.2. Lap showing mild pancytopenia with WBC 4.4K, hemoglobin 11.3 and platelet 84. D-dimer is elevated 9.7, sodium 135, potassium 3.4, liver enzymes are elevated with normal total bilirubin of 0.8, AST is 1446 and ALT 1798. Amylase and lipase are normal. Urine analysis is mildly abnormal most likely due to dehydration. Sputum cultures pending EKG shows sinus tachycardia at [address]-T changes. QTC is 557. CT of the chest is negative for PE, showing emphysema and patchy ground glass appearance CT on both lungs. Gallbladder ultrasound showing gallbladder sludge and hepatomegaly, acute hepatitis panel is negative She is currently started on dexamethasone, she is already on Eliquis. She received fluids in the emergency room 02/01/2021 Patient respiratory distress is mild. No chest pain, no cough, diarrhea stopped. Oxygen saturation is stable on 8 L/m of oxygen via nasal cannula. showing improvement liver enzymes however they're still elevated. Patient remains on Eliquis, dexamethasone and multiple vitamins protocol with. No remdesivir due to elevated enzymes. 02/02/2021 Patient as a level of dyspnea as yesterday. No significant cough or chest pain and her diarrhea stopped. Her oxygen requirement is the same at 8 L/m via high flow nasal cannula. No labs from today. Patient remains on dexamethasone 6 mg daily, 1 dose OF MEDROL IS ADMITTED TODAY BECAUSE SHE WAS WHEEZING IN THE MORNING. PATIENT IS KNOWN CASE OF COPD SHE IS ON HOME OXYGEN AT 2 L/M AND SHE FOLLOWS UP WITH DR. ELLIS IN THE OUTPATIENT SETTING. CHECK LABS TOMORROW INCLUDING INFLAMMATORY MARKERS Chief continue with dexamethasone, Eliquis, multiple vitamins protocol that. 02/03/2021 Patient still with some dyspnea and needing 8 L of oxygen per minute to keep her saturation above 90%. No chest pain or significant diarrhea. Patient still have some cough and treated symptomatically. Patient hemodynamically stable other than that. Her labs included significant improvement with CBC with normal WBC and platelet count, hemoglobin stable at 11. LDH is trending down slowly to 4001 and C-reactive protein improved to 57. Liver enzymes are trending down. Patient remains on Eliquis, dexamethasone and multiple vitamins for covid 02/04/2021 Patient today is limited more wheezy and dyspneic with oxygen saturation went up to 2 L/m via nasal cannula. Cele with no chest pain or significant diarrhea. She is coughing somewhat phlegm and she refuses cough medicine because she was to clear her lungs as she states. D-dimer is coming down 9.7 down to 6.8, slightly improving inflammatory markers with LDH down to 35-7 and C-reactive protein to 41 0.8. Pulmonary team, and to continue same medication and check LFTs in the morning Patient remains on dexamethasone, vitamin C, D and zinc and Eliquis 5 mg. Norvasc added for better blood pressure control today 02/05/2021 Patient is currently lying in the bed awake alert and oriented. Feeling anxio us. Still dyspneic with ambulation. No fever no chills. Currently on 10 L oxygen via nasal cannula. No complaints of chest pain. Patient is being continued on dexamethasone 6 mg daily and also anticoagulation with Eliquis due to chronic atrial fibrillation. Laboratory data showed AST 513, ALT 1252 and alk phos 203 and LDH was 3527. Pulmonary is on board. 02/06/2021 Patient is lying in the bed awake alert and oriented. Still requiring high flow oxygen at 10 L via nasal cannula. Patient states that she feels slightly better today. Still having exertional dyspnea. No complaints of fever or chills. No cough or sputum production. No nausea vomiting abdominal pain or diarrhea. Patient being continued on dexamethasone and Eliquis for chronic atrial fibrillation. Laboratory data showed D-dimer 5.46 and AST 305 ALT 1001 and alk phos 212 and LDH trending down to 717 and CRP is 4.2 today. Pulmonary and ID is following. Chest x-ray showed correlate for pneumonia. 02/07/2021 Patient is currently sitting the chair comfortably. Patient states that her breathing is better. Oxygen requirement is trending down to 6 L via nasal cannula. No complaints of chest pain or shortness of the. Laboratory data showed WBC 14.8 hemoglobin 12.1 and platelets 418 Sodium 137 potassium 4.7 BUN 25 and creatinine 0.60 AST 332 ALT 905 alk phos 218. LFTs are improving. Patient is being continued on IV Solu-Medrol 60 mg every 6 hourly and anticoagulation in the form of Eliquis. Currently on mu ltivitamins. Patient has been afebrile. Tolerating oral diet. No nausea vomiting or abdominal pain. 02/08/2021 Patient is currently resting in the bed comfortably. Patient did complain of chest pain this morning. EKG showed normal sinus rhythm and troponin x1 -. Otherwise patient has been afebrile. Chest x-ray showed bilateral interstitial and alveolar infiltrates are stable correlate for interstitial pneumonia with superimposed consolidative pneumonia. Laboratory showed WBC 16.9, hemoglobin 11.4 and platelets 373 lymphocytes 0.6 and troponin x1 - 02/09/2021 Patient is currently lying in the bed comfortably. Requiring oxygen at 4 L via nasal cannula. Patient still having diffuse wheezing and coarse breath sounds. Patient has been afebrile. Chest x-ray today showed mild cardiomegaly and chronic emphysematous change with bilateral multifocal mid to lower lung opacities are redemonstrated consistent with COVID-19 infection. No significant change. Laboratory data showed WBC 16.9 hemoglobin 12.0 D-dimer 1.82 Sodium 139 BUN 27 creatinine 0.58 bicarb is 36, AST 2240 ALT 44 alk phos 208, liver functions are improving. Denied any nausea vomiting. Tolerating oral diet. Patient is being continued on IV Solu-Medrol and Eliquis 02/10/2021 Patient is currently lying in the bed and requiring 4 L oxygen via nasal cannula. Seems anxious. No complaints of chest pain or worsening shortness of breath. Patient has been getting IV Solu-Medrol. Original WBC count increased to 18.52 today. Hemoglobin 10.8 and platelets 369 neutrophils 16.09 sodium 146 potassium 5.3 chloride 105 bicarb is 35 and BUN 30 and creatinine 0.6 blood sugar is 188 and calcium 8.6 Patient is doing fine IV Solu-Medrol, Eliquis, Protonix and multivitamins and breathing treatments. Patient pulmonary is following. Current medications reviewed. Objective - Vital Signs Vital signs: Vital Signs Temp 97.6 F 02/10/21 14:00 Pulse 71 02/10/21 14:00 Resp 18 02/10/21 14:00 BP 155/75 02/10/21 14:00 Pulse Ox 95 02/10/21 14:00 Intake & Output 02/09/21 02/10/21 02/10/21 18:59 06:59 18:59 Intake Total 1100 800 Balance 1100 800 Intake: Oral 1100 800 Other: Voiding Method Bedpan # Voids 2 1 1 # Bowel Movements 1 - Exam - Exam GENERAL: The patient is alert and oriented x3, not in any acute distress. Well developed, well nourished. HEENT: Pupils are round and equally reacting to light. EOMI. No scleral icterus. No conjunctival pallor. Normocephalic, atraumatic. No pharyngeal erythema. No thyromegaly. CARDIOVASCULAR: S1 and S2 present. No murmurs, rubs, or gallops. PULMONARY:Bilateral diffuse wheezing and coarse breath sounds. Nonlabored breathing.. ABDOMEN: Soft, nontender, nondistended, normoactive bowel sounds. No palpable organomegaly. MUSCULOSKELETAL: No joint swelling or deformity. EXTREMITIES: No cyanosis, clubbing, or pedal edema. NEUROLOGICAL: Gross neurological examination did not reveal any focal deficits. SKIN: No rashes. no petechiae. - Labs CBC & Chem 7: 02/11/21 06:17 02/11/21 06:17 Labs: Abnormal Lab Results - Last 24 Hours (Table) 02/09/21 02/09/21 02/10/21 Range/Units 16:33 20:05 07:06 WBC (4.50-10.00) X 10*3/uL RBC (4.10-5.20) X 10*6/uL Hgb (12.0-15.0) g/dL Hct (37.2-46.3) % MCH (27.0-32.0) pg MCHC (32.0-37.0) g/dL RDW (11.5-14.5) % Immature Gran # (0.00-0.04) X 10*3/uL Neutrophils # (1.80-7.70) X 10*3/uL Lymphocytes # (0.90-5.00) X 10*3/uL Monocytes # (0.20-1.00) X 10*3/uL Eosinophils # (0.04-0.35) X 10*3/uL Sodium (135-145) mmol/L Carbon Dioxide (21.6-31.8) mmol/L BUN (9.0-27.0) mg/dL BUN/Creatinine Ratio (12.00-20.00) Ratio Glucose (70-110) mg/dL POC Glucose (mg/dL) 160 H 189 H 189 H (75-99) mg/dL Calcium (8.7-10.3) mg/dL 02/10/21 02/10/21 02/10/21 Range/Units 07:09 07:09 11:40 WBC 18.52 H (4.50-10.00) X 10*3/uL RBC 4.03 L (4.10-5.20) X 10*6/uL Hgb 10.8 L (12.0-15.0) g/dL Hct 35.1 L (37.2-46.3) % MCH 26.8 L (27.0-32.0) pg MCHC 30.8 L (32.0-37.0) g/dL RDW 16.7 H (11.5-14.5) % Immature Gran # 0.77 H (0.00-0.04) X 10*3/uL Neutrophils # 16.09 H (1.80-7.70) X 10*3/uL Lymphocytes # 0.59 L (0.90-5.00) X 10*3/uL Monocytes # 1.03 H (0.20-1.00) X 10*3/uL Eosinophils # 0 L (0.04-0.35) X 10*3/uL Sodium 146 H (135-145) mmol/L Carbon Dioxide 35.4 H (21.6-31.8) mmol/L BUN 30.0 H (9.0-27.0) mg/dL BUN/Creatinine Ratio 50.00 H (12.00-20.00) Ratio Glucose 188 H (70-110) mg/dL POC Glucose (mg/dL) 144 H (75-99) mg/dL Calcium 8.6 L (8.7-10.3) mg/dL Assessment and Plan Assessment: acute bilateral covid pneumonia Acute hypoxic respiratory failure secondary to above, on chronic hypoxic respiratory failure Elevated inflammatory markers Covid gastroenteritis and hepatitis Elevated liver enzymes. Trending down. Elevated d-dimer with negative CTPA for pulmonary embolism. Patient is already on Eliquis Atrial fibrillation with history of stroke, on Eliquis History of coronary artery disease COPD, not in acute exacerbation Chronic hypoxic respiratory failure on 2 L of oxygen via nasal cannula History of GERD Hyperlipidemia Osteoarthritis Chronic low back pain Plan: this is a pleasant 65 years old female who presents with Covid pneumonia and hypoxia. Continue with Eliquis and dexamethasone, c/w vitamin C, vitamin D and zinc. Continue to titrate down oxygen. Incentive spirometry. Patient is currently on 6 L oxygen via nasal cannula. Pulmonary team evaluated the patient who decided patient is outside the window for remdesivir. Monitored liver enzymes Labs and medication were reviewed..Continue with symptomatic treatment. Monitor lytes and vitals. DVT and GI prophylaxis. Further recommendationsas per clinical course of the patient DVT prophylaxis: Eliquis GI Prophylaxis: Ppi PT/OT: Pending Prognosis is guarded Time with Patient: Greater than 30
--- NOTE | 2021-02-11 23:10 | P.PN ---
Subjective Progress Note Date: 02/11/21 Principal diagnosis: Acute hypoxic respiratory failure secondary to Covid pneumonia this is a pleasant 65 yo F with past medical history of atrial fibrillation on eliquis, coronary artery disease, COPD ON home oxygen ( 2 L/m), and f/u with , she quit smoking last august 2020, GERD, hyperlipidemia, osteoartheritis , chronic low back pain ,involving left leg numbness , scoliosis and seasonal ALLERGIES. She presents with some tachypnea, and covered with phlegm for more than 6-7 days associated with diarrhea for 3 days. No chest pain or abdominal pain. No nausea vomiting. She is hypoxemic needing a liter of oxygen via nasal cannula, she has low grade temperature of 100.2. Lap showing mild pancytopenia with WBC 4.4K, hemoglobin 11.3 and platelet 84. D-dimer is elevated 9.7, sodium 135, potassium 3.4, liver enzymes are elevated with normal total bilirubin of 0.8, AST is 1446 and ALT 1798. Amylase and lipase are normal. Urine analysis is mildly abnormal most likely due to dehydration. Sputum cultures pending EKG shows sinus tachycardia at [address]-T changes. QTC is 557. CT of the chest is negative for PE, showing emphysema and patchy ground glass appearance CT on both lungs. Gallbladder ultrasound showing gallbladder sludge and hepatomegaly, acute hepatitis panel is negative She is currently started on dexamethasone, she is already on Eliquis. She received fluids in the emergency room 02/01/2021 Patient respiratory distress is mild. No chest pain, no cough, diarrhea stopped. Oxygen saturation is stable on 8 L/m of oxygen via nasal cannula. showing improvement liver enzymes however they're still elevated. Patient remains on Eliquis, dexamethasone and multiple vitamins protocol with. No remdesivir due to elevated enzymes. 02/02/2021 Patient as a level of dyspnea as yesterday. No significant cough or chest pain and her diarrhea stopped. Her oxygen requirement is the same at 8 L/m via high flow nasal cannula. No labs from today. Patient remains on dexamethasone 6 mg daily, 1 dose OF MEDROL IS ADMITTED TODAY BECAUSE SHE WAS WHEEZING IN THE MORNING. PATIENT IS KNOWN CASE OF COPD SHE IS ON HOME OXYGEN AT 2 L/M AND SHE FOLLOWS UP WITH DR. ELLIS IN THE OUTPATIENT SETTING. CHECK LABS TOMORROW INCLUDING INFLAMMATORY MARKERS Chief continue with dexamethasone, Eliquis, multiple vitamins protocol that. 02/03/2021 Patient still with some dyspnea and needing 8 L of oxygen per minute to keep her saturation above 90%. No chest pain or significant diarrhea. Patient still have some cough and treated symptomatically. Patient hemodynamically stable other than that. Her labs included significant improvement with CBC with normal WBC and platelet count, hemoglobin stable at 11. LDH is trending down slowly to 4001 and C-reactive protein improved to 57. Liver enzymes are trending down. Patient remains on Eliquis, dexamethasone and multiple vitamins for covid 02/04/2021 Patient today is limited more wheezy and dyspneic with oxygen saturation went up to 2 L/m via nasal cannula. Cele with no chest pain or significant diarrhea. She is coughing somewhat phlegm and she refuses cough medicine because she was to clear her lungs as she states. D-dimer is coming down 9.7 down to 6.8, slightly improving inflammatory markers with LDH down to 35-7 and C-reactive protein to 41 0.8. Pulmonary team, and to continue same medication and check LFTs in the morning Patient remains on dexamethasone, vitamin C, D and zinc and Eliquis 5 mg. Norvasc added for better blood pressure control today 02/05/2021 Patient is currently lying in the bed awake alert and oriented. Feeling anxio us. Still dyspneic with ambulation. No fever no chills. Currently on 10 L oxygen via nasal cannula. No complaints of chest pain. Patient is being continued on dexamethasone 6 mg daily and also anticoagulation with Eliquis due to chronic atrial fibrillation. Laboratory data showed AST 513, ALT 1252 and alk phos 203 and LDH was 3527. Pulmonary is on board. 02/06/2021 Patient is lying in the bed awake alert and oriented. Still requiring high flow oxygen at 10 L via nasal cannula. Patient states that she feels slightly better today. Still having exertional dyspnea. No complaints of fever or chills. No cough or sputum production. No nausea vomiting abdominal pain or diarrhea. Patient being continued on dexamethasone and Eliquis for chronic atrial fibrillation. Laboratory data showed D-dimer 5.46 and AST 305 ALT 1001 and alk phos 212 and LDH trending down to 717 and CRP is 4.2 today. Pulmonary and ID is following. Chest x-ray showed correlate for pneumonia. 02/07/2021 Patient is currently sitting the chair comfortably. Patient states that her breathing is better. Oxygen requirement is trending down to 6 L via nasal cannula. No complaints of chest pain or shortness of the. Laboratory data showed WBC 14.8 hemoglobin 12.1 and platelets 418 Sodium 137 potassium 4.7 BUN 25 and creatinine 0.60 AST 332 ALT 905 alk phos 218. LFTs are improving. Patient is being continued on IV Solu-Medrol 60 mg every 6 hourly and anticoagulation in the form of Eliquis. Currently on mu ltivitamins. Patient has been afebrile. Tolerating oral diet. No nausea vomiting or abdominal pain. 02/08/2021 Patient is currently resting in the bed comfortably. Patient did complain of chest pain this morning. EKG showed normal sinus rhythm and troponin x1 -. Otherwise patient has been afebrile. Chest x-ray showed bilateral interstitial and alveolar infiltrates are stable correlate for interstitial pneumonia with superimposed consolidative pneumonia. Laboratory showed WBC 16.9, hemoglobin 11.4 and platelets 373 lymphocytes 0.6 and troponin x1 - 02/09/2021 Patient is currently lying in the bed comfortably. Requiring oxygen at 4 L via nasal cannula. Patient still having diffuse wheezing and coarse breath sounds. Patient has been afebrile. Chest x-ray today showed mild cardiomegaly and chronic emphysematous change with bilateral multifocal mid to lower lung opacities are redemonstrated consistent with COVID-19 infection. No significant change. Laboratory data showed WBC 16.9 hemoglobin 12.0 D-dimer 1.82 Sodium 139 BUN 27 creatinine 0.58 bicarb is 36, AST 2240 ALT 44 alk phos 208, liver functions are improving. Denied any nausea vomiting. Tolerating oral diet. Patient is being continued on IV Solu-Medrol and Eliquis 02/10/2021 Patient is currently lying in the bed and requiring 4 L oxygen via nasal cannula. Seems anxious. No complaints of chest pain or worsening shortness of breath. Patient has been getting IV Solu-Medrol. Original WBC count increased to 18.52 today. Hemoglobin 10.8 and platelets 369 neutrophils 16.09 sodium 146 potassium 5.3 chloride 105 bicarb is 35 and BUN 30 and creatinine 0.6 blood sugar is 188 and calcium 8.6 Patient is doing fine IV Solu-Medrol, Eliquis, Protonix and multivitamins and breathing treatments. Patient pulmonary is following. 02/11/2021 Patient is able to sit in the chair comfortably. Still requiring oxygen at 4 L via nasal cannula. Still having bilateral expiratory wheezing and scattered rhonchi. Patient is being continued on IV Solu-Medrol 40 mg every 8 hourly. On anticoagulation with Eliquis. Patient does have history of paroxysmal atrial fibrillation. Laboratory data showed WBC trending down to 16.9 today. Hemoglobin 10.6 and platelets 304 BUN 13 creatinine 0.6 sodium level improved to 141 and potassium 4.6. Chest x-ray showed findings consistent with prior history of Covid pneumonia. Pulmonary is on board. Anticipate discharge in the next 24 to 48 hours. Current medications reviewed. Objective - Vital Signs Vital signs: Vital Signs Temp 98.3 F 02/11/21 17:46 Pulse 70 02/11/21 19:45 Resp 17 02/11/21 19:45 BP 126/59 02/11/21 17:46 Pulse Ox 95 02/11/21 17:46 Intake & Output 02/11/21 02/11/21 02/12/21 06:59 18:59 06:59 Intake Total 840 480 Output Total 1000 Balance -160 480 Intake: Oral 840 480 Output: Urine 1000 Other: Voiding Method Bedpan # Voids 3 1 - Exam - Exam GENERAL: The patient is alert and oriented x3, not in any acute distress. Well developed, well nourished. HEENT: Pupils are round and equally reacting to light. EOMI. No scleral icterus. No conjunctival pallor. Normocephalic, atraumatic. No pharyngeal erythema. No thyromegaly. CARDIOVASCULAR: S1 and S2 present. No murmurs, rubs, or gallops. PULMONARY:Bilateral exp wheezing and scattered coarse breath sounds. Nonlabored breathing.. ABDOMEN: Soft, nontender, nondistended, normoactive bowel sounds. No palpable organomegaly. MUSCULOSKELETAL: No joint swelling or deformity. EXTREMITIES: No cyanosis, clubbing, or pedal edema. NEUROLOGICAL: Gross neurological examination did not reveal any focal deficits. SKIN: No rashes. no petechiae. - Labs CBC & Chem 7: 02/11/21 06:17 02/11/21 06:17 Labs: Abnormal Lab Results - Last 24 Hours (Table) 02/11/21 02/11/21 02/11/21 Range/Units 06:17 06:17 06:56 WBC 16.91 H (4.50-10.00) X 10*3/uL RBC 3.93 L (4.10-5.20) X 10*6/uL Hgb 10.6 L (12.0-15.0) g/dL Hct 34.1 L (37.2-46.3) % MCHC 31.1 L (32.0-37.0) g/dL RDW 16.6 H (11.5-14.5) % Immature Gran # 0.54 H (0.00-0.04) X 10*3/uL Neutrophils # 14.94 H (1.80-7.70) X 10*3/uL Lymphocytes # 0.57 L (0.90-5.00) X 10*3/uL Eosinophils # 0 L (0.04-0.35) X 10*3/uL D-Dimer (<0.60) mg/L FEU Carbon Dioxide 32.2 H (21.6-31.8) mmol/L BUN 30.0 H (9.0-27.0) mg/dL BUN/Creatinine Ratio 50.00 H (12.00-20.00) Ratio Glucose 144 H (70-110) mg/dL POC Glucose (mg/dL) 144 H (75-99) mg/dL AST 129 H (13-35) U/L ALT 594 H (8-44) U/L Alkaline Phosphatase 172 H (41-126) U/L Lactate Dehydrogenase 538 H (120-246) U/L Total Protein 4.8 L (6.2-8.2) g/dL Albumin 3.20 L (3.80-4.90) g/dL 02/11/21 02/11/21 02/11/21 Range/Units 11:24 16:25 17:11 WBC (4.50-10.00) X 10*3/uL RBC (4.10-5.20) X 10*6/uL Hgb (12.0-15.0) g/dL Hct (37.2-46.3) % MCHC (32.0-37.0) g/dL RDW (11.5-14.5) % Immature Gran # (0.00-0.04) X 10*3/uL Neutrophils # (1.80-7.70) X 10*3/uL Lymphocytes # (0.90-5.00) X 10*3/uL Eosinophils # (0.04-0.35) X 10*3/uL D-Dimer 1.53 H (<0.60) mg/L FEU Carbon Dioxide (21.6-31.8) mmol/L BUN (9.0-27.0) mg/dL BUN/Creatinine Ratio (12.00-20.00) Ratio Glucose (70-110) mg/dL POC Glucose (mg/dL) 173 H 187 H (75-99) mg/dL AST (13-35) U/L ALT (8-44) U/L Alkaline Phosphatase (41-126) U/L Lactate Dehydrogenase (120-246) U/L Total Protein (6.2-8.2) g/dL Albumin (3.80-4.90) g/dL 02/11/21 Range/Units 20:01 WBC (4.50-10.00) X 10*3/uL RBC (4.10-5.20) X 10*6/uL Hgb (12.0-15.0) g/dL Hct (37.2-46.3) % MCHC (32.0-37.0) g/dL RDW (11.5-14.5) % Immature Gran # (0.00-0.04) X 10*3/uL Neutrophils # (1.80-7.70) X 10*3/uL Lymphocytes # (0.90-5.00) X 10*3/uL Eosinophils # (0.04-0.35) X 10*3/uL D-Dimer (<0.60) mg/L FEU Carbon Dioxide (21.6-31.8) mmol/L BUN (9.0-27.0) mg/dL BUN/Creatinine Ratio (12.00-20.00) Ratio Glucose (70-110) mg/dL POC Glucose (mg/dL) 154 H (75-99) mg/dL AST (13-35) U/L ALT (8-44) U/L Alkaline Phosphatase (41-126) U/L Lactate Dehydrogenase (120-246) U/L Total Protein (6.2-8.2) g/dL Albumin (3.80-4.90) g/dL Microbiology - Last 24 Hours (Table) 02/10/21 20:33 Gram Stain - Preliminary Sputum Sputum Culture - Preliminary Assessment and Plan Assessment: acute bilateral covid pneumonia Acute hypoxic respiratory failure secondary to above, on chronic hypoxic respiratory failure Elevated inflammatory markers Covid gastroenteritis and hepatitis Elevated liver enzymes. Trending down. Elevated d-dimer with negative CTPA for pulmonary embolism. Patient is already on Eliquis Atrial fibrillation with history of stroke, on Eliquis History of coronary artery disease COPD, not in acute exacerbation Chronic hypoxic respiratory failure on 2 L of oxygen via nasal cannula History of GERD Hyperlipidemia Osteoarthritis Chronic low back pain Plan: this is a pleasant 65 years old female who presents with Covid pneumonia and hypoxia. Continue with Eliquis and IV solumedrol, c/w vitamin C, vitamin D and zinc. Continue to titrate down oxygen. Incentive spirometry. Patient is currently on 4 L oxygen via nasal cannula. Patient was out of window for remdesivir therapy. Monitored liver enzymes Labs and medication were reviewed..Continue with symptomatic treatment. Monitor lytes and vitals. DVT and GI prophylaxis. Further recommendationsas per clinical course of the patient DVT prophylaxis: Eliquis GI Prophylaxis: Ppi PT/OT: Pending Prognosis is guarded Time with Patient: Greater than 30
[2021-02-12 06:53] LABS: Glucose,Whole Blood 150 mg/dL (75-99)
[2021-02-12] MEDS: CHOLECALCIFEROL 25 MCG (1000 IU) TABLET PO SCH (07:57)
[2021-02-12] MEDS: amLODIPine 5 MG TAB PO SCH (07:57)
[2021-02-12] MEDS: lisinopriL 5 MG TAB PO SCH (07:57)
[2021-02-12] MEDS: ASCORBIC ACID 500 MG TAB PO SCH ×2 (07:57→20:32)
[2021-02-12] MEDS: AMIODARONE 200 MG TAB PO SCH ×2 (07:57→20:33)
[2021-02-12] MEDS: PANTOPRAZOLE 40 MG TABLET PO SCH (07:57)
[2021-02-12] MEDS: NYSTATIN 100,000 UNIT/ML SUSP 500,000 UNIT/5 ML CUP PO SCH ×4 (07:57→20:41)
[2021-02-12] MEDS: ZINC SULFATE 220 MG CAP PO SCH (07:57)
[2021-02-12] MEDS: APIXABAN 5 MG TAB PO SCH ×2 (07:57→20:33)
[2021-02-12] MEDS: methylPREDNISolone SOD SUCCI 40 MG/ML 1 ML VIAL IV SCH ×2 (07:58→16:47)
[2021-02-12] MEDS: INSULIN ASPART (NovoLOG) 100 UNIT/ML VIAL SQ SCH ×4 (07:58→20:33)
[2021-02-12] MEDS: SYMBICORT 160-4.5 MCG INHALER INHALATION SCH ×2 (08:02→21:14)
[2021-02-12] MEDS: ALBUTEROL HFA INHALER INHALATION SCH ×4 (08:02→21:14)
[2021-02-12 10:42] LABS: Basophils # (A) 0.03 X 10*3/uL (0.00-0.10); Basophils % (A) 0.2 %; Eosinophils # (A) 0 X 10*3/uL (0.04-0.35); Eosinophils % (A) 0 %; HCT 34.8 % (37.2-46.3); HGB 10.8 g/dL (12.0-15.0); Lymphocytes # (A) 0.48 X 10*3/uL (0.90-5.00); Lymphocytes % (A) 2.6 %; MCH 27.1 pg (27.0-32.0); MCV 87.2 fL (80.0-97.0); Mean Platelet Volume 10.8 fL (9.5-12.2); Monocytes # (A) 0.89 X 10*3/uL (0.20-1.00); Monocytes % (A) 4.8 %; Neutrophils # (A) 16.78 X 10*3/uL (1.80-7.70); Platelet Count 296 X 10*3/uL (140-440); RBC 3.99 X 10*6/uL (4.10-5.20); RDW 16.7 % (11.5-14.5); WBC 18.62 X 10*3/uL (4.50-10.00)
[2021-02-12 11:22] LABS: Glucose,Whole Blood 135 mg/dL (75-99)
[2021-02-12] MEDS: TIOTROPIUM 2.5 MCG INHALER INHALATION SCH (12:19)
[2021-02-12] MEDS ORDERED: RX INFO: IV CONTRAST WAS GIVEN 1 EACH MISC MISCELLANE PRN (12:34)
[2021-02-12] MEDS ORDERED: VORICONAZOLE 500 MG in SODIUM CHLORIDE 0.9% 250 ML IVPB SCH (13:00)
[2021-02-12 13:07] LABS: African American GFR (CKD) >90 (>60 ml/min/1.73 sqM); Anion Gap 1 mmol/L; Blood Urea Nitrogen 29 mg/dL (7-17); Calcium 8.4 mg/dL (8.4-10.2); Carbon Dioxide 36 mmol/L (22-30); Chloride 101 mmol/L (98-107); Glucose 139 mg/dL (74-99); Non-African American GFR(CKD) >90 (>60 ml/min/1.73 sqM); Potassium 4.6 mmol/L (3.5-5.1); Sodium 138 mmol/L (137-145)
--- NOTE | 2021-02-12 15:54 | CT ---
EXAMINATION TYPE: CT chest w con DATE OF EXAM: 02/12/2021 COMPARISON: CTA chest January 31, 2021 HISTORY: Aspergillus pneumonia, COVID 01-31-2021 CT DLP: 388.9 mGycm. Automated Exposure Control for Dose Reduction was Utilized. TECHNIQUE: CT scan of the thorax is performed following with IV Contrast, patient injected with 100 mL of Isovue 300. FINDINGS: LUNGS: Background moderate underlying emphysematous change. Persistent groundglass opacities and some irregular consolidations involving inferior aspect bilateral upper lobes and background mild atelect asis and reticular interstitial changes. Dependent atelectasis bilateral lower lobes right greater th an left is present. Some patchy groundglass opacities remain present in the right middle lobe and jose gula. Findings show improvement from prior study. No pleural effusion or pneumothorax. No cavitary le sions or nodules. MEDIASTINUM: There are no new greater than 1 cm hilar or mediastinal lymph nodes. No cardiomegaly o r pericardial effusion is seen. Moderate to severe three-vessel coronary artery calcification and/or stents. Moderate mixed plaque in the aorta is redemonstrated. OTHER: Low dense thickening to both adrenal glands favors benign lipid rich hyperplasia. IMPRESSION: Moderate emphysematous change. Mild/moderate parenchymal fibrotic changes greatest in the mid lungs. Improved bilateral multifocal groundglass opacities and organizing consolidations consist ent with resolving covid-19 infection. No new significant focal consolidation or cavitary lesion.
[2021-02-12] MEDS: ACETAMINOPHEN TAB 325 MG TAB PO PRN ×2 (16:16→20:37)
[2021-02-12 16:19] LABS: Glucose,Whole Blood 158 mg/dL (75-99)
--- NOTE | 2021-02-12 17:14 | P.PN ---
Subjective Progress Note Date: 02/12/21 Principal diagnosis: Acute on chronic hypoxic respiratory failure secondary to acute COVID 19 pneumonia and history of underlying COPD 65-year-old white female patient who is familiar to our service from her previous history of hospitalizations for complications related to her underlying history of COPD stage III, on home oxygen. She follows with Dr. Artis in the pulmonary clinic. She is normally on 2 L of oxygen on a regular basis, patient had recent hospitalization for acute exacerbation of COPD complicated by purulent tracheal bronchitis. Her other medical history significant for hypertension, history of A. fib, previous history of CVA, [place], osteoarthritis, previous history of brain aneurysm with clipping, and previous history of smoking. She was discharged home on 01/17/2021, and was feeling well for a while, last week on she started feeling worse, denied any worsening dyspnea, she is chronically short of breath and that did not seem to get any w orse, however she is feeling very weak, she developed profuse diarrhea which she states is uncontrollable, and overall she feels quite rundown. She is also having some chest discomfort in the anterior sternal area which is worse with coughing and moving around, and some abdominal tenderness in the right upper and lower quadrants, but no nausea or vomiting, abdomen is soft. Chest x-ray in the emergency department shows COPD interstitial pneumonitis small bilateral pleural effusions, and a basilar consolidation. COVID 19 PCR was positive. Admission labs showed white blood cell count 5.4, hemoglobin is 12.7, platelet count is 60, d-dimer was increased at 9.7 to the patient is on Eliquis on a regular basis for history of A. fib, CTA chest was completed, however there was breathing motion artifact, but no evidence of large central or lobar branch pulmonary embolus, many segmental and more distal arterial branches were nondiagnostic, there were multifocal bilateral patchy and confluent groundglass opacities and a trace pleural effusions. There was a small hiatal hernia. Her enzymes were significantly elevated and ultrasound of the gallbladder was completely showing hepatomegaly, and sludge within the gallbladder. Currently patient is up to 8 L of oxygen, her pulse ox is 93%, hemodynamically she stable, she is in sinus mechanism, slightly tachycardic on the monitor. Troponin was 0.021. Her inflammatory markers were significantly elevated with LDH of 4970, and CRP is 203.5. AST was 1441, and ALT was 2053, total bilirubin was 0.9, and alk phos was 79. Urinalysis was positive for 2+ protein, nitrates, many bacteria. She is on Rocephin for empiric coverage, hepatitis panel was nonreactive, Tylenol level was less than 10. Amylase and lipase were negative at 43 and 53 re spectively. Patient was started on Decadron 6 milligram daily, her Eliquis continues, and patient is on amiodarone and Lipitor. Stool for C. diff has been ordered, cultures have been sent Reevaluated today on 02/01/21, patient seems to be doing fairly well, her O2 saturations 91% on 2 L nasal cannula. Patient was on 8 L on admission. Patient is normally on oxygen and home, she does have underlying COPD. Remains on the Covid 19 cocktail. Remains on bronchodilators. Patient did not receive REM mostly because of her liver enzymes being quite elevated. Remain elevated today but trending admitted down especially her ALT is down to 1798 from 2053 Patient was reevaluated today on 02/02/2021, remains on high flow oxygen, now she is on 8 L, O2 sats is ranging anywhere between 91% up to 97%. Today it is 94%. Patient looks comfortable, not in any distress. No labs were drawn today, but her labs from yesterday were reviewed, liver enzymes are improving a bit with ALT down to 1534 and AST is down to 758. Her last CT angiogram was on 01/31 which I have noted above. On 02/03/2021 patient seen in follow-up on medical floor, she is currently at 8 L of oxygen pulse ox is 91%, she is doing better, her LDH and CRP remain elevated but improving, her cough has improved, she started to bring up some yellowish colored phlegm, no hemoptysis, pro-calcitonin was 0.22, she is currently on oral Decadron, she continues on Robitussin, she is on inhalers, she is on oral anticoagulation in the form of Eliquis for her history of A. fib. Her liver enzymes were starting to improve. No acute events overnight. Patient was not a candidate for Remdesivir related to elevated liver enzymes. She cont inues on supportive treatment. On 02/06/2021 patient seen in follow-up on medical surgical floor, she continues to be on high flow oxygen chronically at 10 L, and her pulse ox is between 93- 98%, this can probably be weaned down. Appears to be breathing comfortably, she is afebrile, hemodynamically stable, no chest discomfort. Still has a cough with occasional sputum, no hemoptysis, no nausea vomiting or abdominal pain. She continues on Eliquis, Solu-Medrol, and multivitamins. She is clinically improving. Today's d-dimer is 5.46, electrolytes are unremarkable, liver enzymes are improving, AST is down to 305, ALT is 1001, alkaline phosphatase is 212, pro-calcitonin level is low at 0.22. She's had no fever or chills. No nausea vomiting or diarrhea. On 02/07/2021 patient seen in follow-up on medical surgical floor, she is improving, she is up in the chair, less bronchospastic less dyspneic, peripheral 6 L of oxygen, her pulse ox is 96%, this can probably be weaned little bit furth er, looks comfortable, breathing comfortably, denies any chest discomfort, no new chest x-ray today, today's labs have been noted, her last d-dimer from yesterday was still elevated although trending down at 5.46, BUN was 25, creatinine was 0.6, CO2 is 36, the rest of electrolytes were unremarkable, her LDH was also trending down, and was down to 717 on yesterday's labs, and CRP was down to 4.2, pro-calcitonin level was low at 0.22, and her LFTs are improving. She remains on being treatments, IV steroids 60 mg every 6 hours, and oral anticoagulation in the form of Eliquis. On 02/09/2021 patient seen in follow-up. Currently down to 4 L of oxygen, she feels that she is improving, breathing much easier, although generally remains weak, she was up to the chair, lung sounds reveal some diffuse wheezes, and coarse crackles, no fever or chills, overall feeling better, taste chest x-ray shows mild cardiomegaly and chronic emphysematous changes with bilateral multifocal lung opacities, consistent with COVID-19 pneumonia, stable in appearance. Today's labs have been reviewed showing d-dimer of 1.82, white blood cell count 16.9, stable, LFTs are improving, and inflammatory markers were improving, and we'll obtain follow-up inflammatory markers today. She is on oral anticoagulation in the form of Eliquis, she remains on pulmonary treatments, IV Solu-Medrol 60 every 6 hours. On 02/10/2001 patient seen in follow-up on medical surgical floor, she is improving, she is breathing easier, today she is at 4 L, and her pulse ox is 95%, she is still coughing, her cough is nonproductive, without chest pain, she continues on IV Solu-Medrol 60 mg every 6 hours, today's exam revealed some scattered wheezing, the patient is less bronchospastic on today's exam, overall she is improving, today's labs have been reviewed , blood cell count is 18.5, hemoglobin is 10.8, her last d-dimer from yesterday was 1.82, sodium is 146, respiratory lites are unremarkable, CO2 is 35.4. Her LFTs were improving, troponin is negative, we'll obtain a follow-up LDH and CRP. She's had no fever or chills. On 02/12/2020 patient seen in follow-up on medical surgical floor, she is currently on 4 L of oxygen pulse ox of 96%, she normally wears 2 L of home, she seems to be breathing comfortably, lung sounds reveal minimal wheezing, she denies any creased dyspnea and cough or congestion, she remains on Solu-Medrol 40 mg every 8 hours, she is on inhalers, and she is on oral anticoagulation the form of Eliquis. Today's labs have been reviewed, her white count is improving, down to 16.9, patient has had no fever, hemoglobin is 10.6, CO2 is 32, the rest of electrolytes are unremarkable, BUN is 30 creatinine 0.6, inflammatory markers are improving, LDH is 538, and CRP is less than 0.4 on today's labs. On 02/12/2021 patient seen in follow-up on medical surgical floor, she is improving, she is breathing easier, she is currently down to 2 L of oxygen, her pulse ox is 94-95%, she is afebrile, she looks very comfortable, breathing comfortably, her sputum culture showed Aspergillus, final culture is pending, ID service is on and has added voriconazole. The patient remains on Solu-Medrol 40 mg every 8 hours. She is on oral anticoagulation with Eliquis, likely looks pretty stable. His labs show white blood cell count of 18.6, hemoglobin is 10.8, last d-dimer from yesterday was 1.53, CO2 is up to 36 with electrolytes and renal profile were unremarkable. Her LFTs were improving on yesterday's labs. Objective - Vital Signs Vital signs: Vital Signs Temp 98.3 F 02/12/21 14:00 Pulse 70 02/12/21 14:00 Resp 20 02/12/21 14:00 BP 117/57 02/12/21 14:00 Pulse Ox 94 L 02/12/21 16:05 Intake & Output 02/11/21 02/12/21 02/12/21 18:59 06:59 18:59 Intake Total 480 Balance 480 Intake: Oral 480 Other: Voiding Method Bedpan # Voids 3 2 3 # Bowel Movements 1 - Exam GENERAL EXAM: Alert, pleasant, 65-year-old white female, currently on 2 L of oxygen, with a pulse ox of 95% HEAD: Normocephalic/atraumatic. EYES: Normal reaction of pupils, equal size. Conjunctiva pink, sclera white. NOSE: Clear with pink turbinates. THROAT: No erythema or exudates. NECK: No masses, no JVD, no thyroid enlargement, no adenopathy. CHEST: No chest wall deformity. Symmetrical expansion. LUNGS: Equal air entry with bilateral crackles and some scattered wheezes CVS: Regular rate and rhythm, normal S1 and S2, no gallops, no murmurs, no rubs ABDOMEN: Soft, nontender. No hepatosplenomegaly, normal bowel sounds, no guarding or rigidity. Mild tenderness with palpation in the right upper and lower quadrant EXTREMITIES: No clubbing, no edema, no cyanosis, 2+ pulses and upper and lower extremities. MUSCULOSKELETAL: Muscle strength and tone normal. SPINE: No scoliosis or deformity SKIN: No rashes CENTRAL NERVOUS SYSTEM: Alert and oriented -3. No focal deficits, tone is normal in all 4 extremities. PSYCHIATRIC: Alert and oriented -3. Appropriate affect. Intact judgment and insight. - Labs CBC & Chem 7: 02/12/21 07:04 02/12/21 07:06 Labs: Abnormal Lab Results - Last 24 Hours (Table) 02/11/21 02/11/21 02/12/21 Range/Units 17:11 20:01 06:52 WBC (4.50-10.00) X 10*3/uL RBC (4.10-5.20) X 10*6/uL Hgb (12.0-15.0) g/dL Hct (37.2-46.3) % MCHC (32.0-37.0) g/dL RDW (11.5-14.5) % Immature Gran # (0.00-0.04) X 10*3/uL Neutrophils # (1.80-7.70) X 10*3/uL Lymphocytes # (0.90-5.00) X 10*3/uL Eosinophils # (0.04-0.35) X 10*3/uL D-Dimer 1.53 H (<0.60) mg/L FEU Carbon Dioxide (22-30) mmol/L BUN (7-17) mg/dL Glucose (74-99) mg/dL POC Glucose (mg/dL) 154 H 150 H (75-99) mg/dL 02/12/21 02/12/21 02/12/21 Range/Units 07:04 07:06 11:21 WBC 18.62 H (4.50-10.00) X 10*3/uL RBC 3.99 L (4.10-5.20) X 10*6/uL Hgb 10.8 L (12.0-15.0) g/dL Hct 34.8 L (37.2-46.3) % MCHC 31.0 L (32.0-37.0) g/dL RDW 16.7 H (11.5-14.5) % Immature Gran # 0.44 H (0.00-0.04) X 10*3/uL Neutrophils # 16.78 H (1.80-7.70) X 10*3/uL Lymphocytes # 0.48 L (0.90-5.00) X 10*3/uL Eosinophils # 0 L (0.04-0.35) X 10*3/uL D-Dimer (<0.60) mg/L FEU Carbon Dioxide 36 H (22-30) mmol/L BUN 29 H (7-17) mg/dL Glucose 139 H (74-99) mg/dL POC Glucose (mg/dL) 135 H (75-99) mg/dL 02/12/21 Range/Units 16:18 WBC (4.50-10.00) X 10*3/uL RBC (4.10-5.20) X 10*6/uL Hgb (12.0-15.0) g/dL Hct (37.2-46.3) % MCHC (32.0-37.0) g/dL RDW (11.5-14.5) % Immature Gran # (0.00-0.04) X 10*3/uL Neutrophils # (1.80-7.70) X 10*3/uL Lymphocytes # (0.90-5.00) X 10*3/uL Eosinophils # (0.04-0.35) X 10*3/uL D-Dimer (<0.60) mg/L FEU Carbon Dioxide (22-30) mmol/L BUN (7-17) mg/dL Glucose (74-99) mg/dL POC Glucose (mg/dL) 158 H (75-99) mg/dL Microbiology - Last 24 Hours (Table) 02/10/21 20:33 Gram Stain - Preliminary Sputum Sputum Culture - Preliminary Aspergillus species Assessment and Plan Plan: Assessment: #1. Acute on chronic hypoxic respiratory failure related to acute COVID 19 pneumonia, patient's symptoms started last week on with 7 days of presentation, she tested positive on 01/30/2021 in the emergency department #2. Recent hospitalization for acute exacerbation of COPD, was negative for COVID 19 at that time, discharged home on 01/17/2021 #3. Elevated transaminases, possibly related to acute COVID 19 infection, lip ase and amylase were negative, gallbladder ultrasound showing some sludge, gallbladder lorenzana within normal limits #4. Elevated d-dimer, patient is on Eliquis for history of A. fib, no evidence of PE on the CT chest #5. Possible urinary tract infection, send a urine culture #6. Diarrhea, rule out C. diff #7. History of COPD, stage III at baseline, with chronic hypoxic respiratory failure #8. Significantly elevated inflammatory markers related to COVID 19 #9. History of A. fib on Eliquis #10. Myocardial infarction #11. History of brain aneurysm with clippings #12. DJD #13. Aspergillus in the sputum, although we don't believe there is active pneumonia or pulmonary infection related to this organism, patient looks nontoxic, her breathing is actually improving, nevertheless patient is being covered with voriconazole and ID service is following Plan: Clinical stable, continue weaning FiO2 Sputum cultures have been noted and we doubt there is active pulmonary infection related to Aspergillus ID services recommending voriconazole If she continues to improve and remained clinically stable may be considered for discharge to subacute rehab or home tomorrow Continue oral anticoagulation Physical therapy consultation Patient is stable for discharge to rehab today I performed a history & physical examination of the patient and discussed their management with my nurse practitioner, Darcy Mccartney. I reviewed the nurse practitioner's note and agree with the documented findings and plan of care. Lung sounds are positive for diminished breath sounds with bibasilar crackles. The findings and the impression was discussed with the patient. I attest to the documentation by the nurse practitioner. Time with Patient: Less than 30
[2021-02-12 20:25] LABS: Glucose,Whole Blood 194 mg/dL (75-99)
[2021-02-12] MEDS: ATORVASTATIN 80 MG TAB PO SCH (20:32)
[2021-02-12] MEDS: MONTELUKAST 10 MG TAB PO SCH (20:33)
[2021-02-12] MEDS: BENZOCAINE/MENTHOL LOZENG 1 EACH LOZENGE MUCOUS MEM PRN (20:37)
--- NOTE | 2021-02-13 02:02 | PN ---
PROGRESS NOTE DATE OF SERVICE: 02/12/2021 REASON FOR FOLLOWUP: 1. COVID-19 pneumonia. 2. Sputum positive for Aspergillus. INTERVAL HISTORY: The patient was seen on rounds this morning. The patient is complaining of more shortness of breath and cough. The patient denies having any chest pain. No nausea, no vomiting. No abdominal pain or diarrhea. PHYSICAL EXAMINATION: Blood pressure 148/75, pulse of 74, temperature 98.5. She is 96% on 2 L nasal cannula. General description is a middle-aged female lying in bed in no distress. Respiratory system: Unlabored breathing, with decreased intensity of breath sounds. No wheeze. HEART: S1, S2. Regular rate and rhythm. ABDOMEN: Soft, no tenderness. LABS: Hemoglobin is 10.1, white count 18.62, BUN of 29, creatinine 0.62. Sputum showing Aspergillus. DIAGNOSTIC IMPRESSION AND PLAN: Patient with admission to the hospital for COVID-19 pneumonia in this patient showed initially clinical improvement, now with sputum showing Aspergillus species. I did order a CT of the chest to see if there is any evidence of pneumonia or cavitating lesion usually associated with Aspergillus and the patient was started on voriconazole. However, the CT came back negative for showing any consolidating changes show improvement. Clinically not behaving as Covid 19 with the patient being on amiodarone and recently liver enzymes, we will discontinue the voriconazole. Continue the patient on the Solu-Medrol, zinc, ascorbic acid, Eliquis and monitor clinical course closely. MMODL / IJN: [id number] /
[2021-02-13] MEDS: methylPREDNISolone SOD SUCCI 40 MG/ML 1 ML VIAL IV SCH ×3 (02:06→16:14)
[2021-02-13] MEDS: BENZOCAINE/MENTHOL LOZENG 1 EACH LOZENGE MUCOUS MEM PRN ×2 (02:06→09:34)
[2021-02-13 06:53] LABS: Glucose,Whole Blood 155 mg/dL (75-99)
[2021-02-13] MEDS: SYMBICORT 160-4.5 MCG INHALER INHALATION SCH (08:35)
[2021-02-13] MEDS: TIOTROPIUM 2.5 MCG INHALER INHALATION SCH (08:35)
[2021-02-13] MEDS: ALBUTEROL HFA INHALER INHALATION SCH ×3 (08:35→15:48)
[2021-02-13] MEDS: ACETAMINOPHEN TAB 325 MG TAB PO PRN (09:34)
[2021-02-13] MEDS: amLODIPine 5 MG TAB PO SCH (09:35)
[2021-02-13] MEDS: CHOLECALCIFEROL 25 MCG (1000 IU) TABLET PO SCH (09:35)
[2021-02-13] MEDS: ZINC SULFATE 220 MG CAP PO SCH (09:35)
[2021-02-13] MEDS: AMIODARONE 200 MG TAB PO SCH (09:35)
[2021-02-13] MEDS: ASCORBIC ACID 500 MG TAB PO SCH (09:35)
[2021-02-13] MEDS: APIXABAN 5 MG TAB PO SCH (09:35)
[2021-02-13] MEDS: PANTOPRAZOLE 40 MG TABLET PO SCH (09:35)
[2021-02-13] MEDS: INSULIN ASPART (NovoLOG) 100 UNIT/ML VIAL SQ SCH ×3 (09:35→17:28)
[2021-02-13] MEDS: lisinopriL 5 MG TAB PO SCH (09:35)
[2021-02-13] MEDS: NYSTATIN 100,000 UNIT/ML SUSP 500,000 UNIT/5 ML CUP PO SCH ×3 (09:36→17:28)
[2021-02-13 10:47] VITALS: RESP 16
[2021-02-13 11:00] LABS: Basophils # (A) 0.01 X 10*3/uL (0.00-0.10); Basophils % (A) 0.1 %; Eosinophils # (A) 0 X 10*3/uL (0.04-0.35); Eosinophils % (A) 0 %; HGB 10.9 g/dL (12.0-15.0); Lymphocytes # (A) 0.46 X 10*3/uL (0.90-5.00); Lymphocytes % (A) 2.7 %; MCH 26.5 pg (27.0-32.0); MCHC 30.3 g/dL (32.0-37.0); MCV 87.6 fL (80.0-97.0); Mean Platelet Volume 10.5 fL (9.5-12.2); Monocytes # (A) 0.62 X 10*3/uL (0.20-1.00); Monocytes % (A) 3.6 %; Neutrophils # (A) 15.84 X 10*3/uL (1.80-7.70); Neutrophils % (A) 91.3 %; Platelet Count 258 X 10*3/uL (140-440); RBC 4.11 X 10*6/uL (4.10-5.20); WBC 17.32 X 10*3/uL (4.50-10.00)
[2021-02-13 11:41] LABS: African American GFR (CKD) 112.4 (60.0-200.0); BUN/Creat Ratio 43.33 Ratio (12.00-20.00); Calcium 8.6 mg/dL (8.7-10.3); Potassium 5.5 mmol/L (3.5-5.5)
[2021-02-13 11:46] LABS: Glucose,Whole Blood 238 mg/dL (75-99)
--- NOTE | 2021-02-13 14:19 | P.PN ---
Subjective Progress Note Date: 02/12/21 Principal diagnosis: Acute hypoxic respiratory failure secondary to Covid pneumonia this is a pleasant 65 yo F with past medical history of atrial fibrillation on eliquis, coronary artery disease, COPD ON home oxygen ( 2 L/m), and f/u with , she quit smoking last august 2020, GERD, hyperlipidemia, osteoartheritis , chronic low back pain ,involving left leg numbness , scoliosis and seasonal ALLERGIES. She presents with some tachypnea, and covered with phlegm for more than 6-7 days associated with diarrhea for 3 days. No chest pain or abdominal pain. No nausea vomiting. She is hypoxemic needing a liter of oxygen via nasal cannula, she has low grade temperature of 100.2. Lap showing mild pancytopenia with WBC 4.4K, hemoglobin 11.3 and platelet 84. D-dimer is elevated 9.7, sodium 135, potassium 3.4, liver enzymes are elevated with normal total bilirubin of 0.8, AST is 1446 and ALT 1798. Amylase and lipase are normal. Urine analysis is mildly abnormal most likely due to dehydration. Sputum cultures pending EKG shows sinus tachycardia at [address]-T changes. QTC is 557. CT of the chest is negative for PE, showing emphysema and patchy ground glass appearance CT on both lungs. Gallbladder ultrasound showing gallbladder sludge and hepatomegaly, acute hepatitis panel is negative She is currently started on dexamethasone, she is already on Eliquis. She received fluids in the emergency room 02/01/2021 Patient respiratory distress is mild. No chest pain, no cough, diarrhea stopped. Oxygen saturation is stable on 8 L/m of oxygen via nasal cannula. showing improvement liver enzymes however they're still elevated. Patient remains on Eliquis, dexamethasone and multiple vitamins protocol with. No remdesivir due to elevated enzymes. 02/02/2021 Patient as a level of dyspnea as yesterday. No significant cough or chest pain and her diarrhea stopped. Her oxygen requirement is the same at 8 L/m via high flow nasal cannula. No labs from today. Patient remains on dexamethasone 6 mg daily, 1 dose OF MEDROL IS ADMITTED TODAY BECAUSE SHE WAS WHEEZING IN THE MORNING. PATIENT IS KNOWN CASE OF COPD SHE IS ON HOME OXYGEN AT 2 L/M AND SHE FOLLOWS UP WITH DR. ELLIS IN THE OUTPATIENT SETTING. CHECK LABS TOMORROW INCLUDING INFLAMMATORY MARKERS Chief continue with dexamethasone, Eliquis, multiple vitamins protocol that. 02/03/2021 Patient still with some dyspnea and needing 8 L of oxygen per minute to keep her saturation above 90%. No chest pain or significant diarrhea. Patient still have some cough and treated symptomatically. Patient hemodynamically stable other than that. Her labs included significant improvement with CBC with normal WBC and platelet count, hemoglobin stable at 11. LDH is trending down slowly to 4001 and C-reactive protein improved to 57. Liver enzymes are trending down. Patient remains on Eliquis, dexamethasone and multiple vitamins for covid 02/04/2021 Patient today is limited more wheezy and dyspneic with oxygen saturation went up to 2 L/m via nasal cannula. Cele with no chest pain or significant diarrhea. She is coughing somewhat phlegm and she refuses cough medicine because she was to clear her lungs as she states. D-dimer is coming down 9.7 down to 6.8, slightly improving inflammatory markers with LDH down to 35-7 and C-reactive protein to 41 0.8. Pulmonary team, and to continue same medication and check LFTs in the morning Patient remains on dexamethasone, vitamin C, D and zinc and Eliquis 5 mg. Norvasc added for better blood pressure control today 02/05/2021 Patient is currently lying in the bed awake alert and oriented. Feeling anxio us. Still dyspneic with ambulation. No fever no chills. Currently on 10 L oxygen via nasal cannula. No complaints of chest pain. Patient is being continued on dexamethasone 6 mg daily and also anticoagulation with Eliquis due to chronic atrial fibrillation. Laboratory data showed AST 513, ALT 1252 and alk phos 203 and LDH was 3527. Pulmonary is on board. 02/06/2021 Patient is lying in the bed awake alert and oriented. Still requiring high flow oxygen at 10 L via nasal cannula. Patient states that she feels slightly better today. Still having exertional dyspnea. No complaints of fever or chills. No cough or sputum production. No nausea vomiting abdominal pain or diarrhea. Patient being continued on dexamethasone and Eliquis for chronic atrial fibrillation. Laboratory data showed D-dimer 5.46 and AST 305 ALT 1001 and alk phos 212 and LDH trending down to 717 and CRP is 4.2 today. Pulmonary and ID is following. Chest x-ray showed correlate for pneumonia. 02/07/2021 Patient is currently sitting the chair comfortably. Patient states that her breathing is better. Oxygen requirement is trending down to 6 L via nasal cannula. No complaints of chest pain or shortness of the. Laboratory data showed WBC 14.8 hemoglobin 12.1 and platelets 418 Sodium 137 potassium 4.7 BUN 25 and creatinine 0.60 AST 332 ALT 905 alk phos 218. LFTs are improving. Patient is being continued on IV Solu-Medrol 60 mg every 6 hourly and anticoagulation in the form of Eliquis. Currently on mu ltivitamins. Patient has been afebrile. Tolerating oral diet. No nausea vomiting or abdominal pain. 02/08/2021 Patient is currently resting in the bed comfortably. Patient did complain of chest pain this morning. EKG showed normal sinus rhythm and troponin x1 -. Otherwise patient has been afebrile. Chest x-ray showed bilateral interstitial and alveolar infiltrates are stable correlate for interstitial pneumonia with superimposed consolidative pneumonia. Laboratory showed WBC 16.9, hemoglobin 11.4 and platelets 373 lymphocytes 0.6 and troponin x1 - 02/09/2021 Patient is currently lying in the bed comfortably. Requiring oxygen at 4 L via nasal cannula. Patient still having diffuse wheezing and coarse breath sounds. Patient has been afebrile. Chest x-ray today showed mild cardiomegaly and chronic emphysematous change with bilateral multifocal mid to lower lung opacities are redemonstrated consistent with COVID-19 infection. No significant change. Laboratory data showed WBC 16.9 hemoglobin 12.0 D-dimer 1.82 Sodium 139 BUN 27 creatinine 0.58 bicarb is 36, AST 2240 ALT 44 alk phos 208, liver functions are improving. Denied any nausea vomiting. Tolerating oral diet. Patient is being continued on IV Solu-Medrol and Eliquis 02/10/2021 Patient is currently lying in the bed and requiring 4 L oxygen via nasal cannula. Seems anxious. No complaints of chest pain or worsening shortness of breath. Patient has been getting IV Solu-Medrol. Original WBC count increased to 18.52 today. Hemoglobin 10.8 and platelets 369 neutrophils 16.09 sodium 146 potassium 5.3 chloride 105 bicarb is 35 and BUN 30 and creatinine 0.6 blood sugar is 188 and calcium 8.6 Patient is doing fine IV Solu-Medrol, Eliquis, Protonix and multivitamins and breathing treatments. Patient pulmonary is following. 02/11/2021 Patient is able to sit in the chair comfortably. Still requiring oxygen at 4 L via nasal cannula. Still having bilateral expiratory wheezing and scattered rhonchi. Patient is being continued on IV Solu-Medrol 40 mg every 8 hourly. On anticoagulation with Eliquis. Patient does have history of paroxysmal atrial fibrillation. Laboratory data showed WBC trending down to 16.9 today. Hemoglobin 10.6 and platelets 304 BUN 13 creatinine 0.6 sodium level improved to 141 and potassium 4.6. Chest x-ray showed findings consistent with prior history of Covid pneumonia. Pulmonary is on board. Anticipate discharge in the next 24 to 48 hours. 02/12/2021 Patient is currently sitting in the chair comfortably. Requiring oxygen at 2 L with other clinic. Bilateral wheezing is much improved and we will expiratory wheezing is still present. Sputum cultures grew Aspergillus species. CT of the chest was ordered to rule out any Lesions. ID and Pulmonary Is on Board. Patient Was Started on Voriconazole. Final Recommendations As per ID Service. Blood Pressure Is Stable and Continued on Anticoagulation with Eliquis. Laboratory data reviewed. WBC count 18.3 Current medications reviewed. Objective - Vital Signs Vital signs: Vital Signs Temp 98.5 F 02/12/21 21:24 Pulse 64 02/12/21 21:24 Resp 18 02/12/21 21:24 BP 148/75 02/12/21 21:24 Pulse Ox 96 02/12/21 21:24 Intake & Output 02/12/21 02/12/21 02/13/21 06:59 18:59 06:59 Intake Total 480 480 Balance 480 480 Intake: Oral 480 480 Other: Voiding Method Bedpan Bedpan # Voids 2 3 # Bowel Movements 1 - Exam - Exam GENERAL: The patient is alert and oriented x3, not in any acute distress. Well developed, well nourished. HEENT: Pupils are round and equally reacting to light. EOMI. No scleral icterus. No conjunctival pallor. Normocephalic, atraumatic. No pharyngeal erythema. No thyromegaly. CARDIOVASCULAR: S1 and S2 present. No murmurs, rubs, or gallops. PULMONARY:Bilateral exp wheezing and scattered coarse breath sounds. Nonlabored breathing.. ABDOMEN: Soft, nontender, nondistended, normoactive bowel sounds. No palpable organomegaly. MUSCULOSKELETAL: No joint swelling or deformity. EXTREMITIES: No cyanosis, clubbing, or pedal edema. NEUROLOGICAL: Gross neurological examination did not reveal any focal deficits. SKIN: No rashes. no petechiae. - Labs CBC & Chem 7: 02/13/21 06:40 02/13/21 06:40 Labs: Abnormal Lab Results - Last 24 Hours (Table) 02/12/21 02/12/21 02/12/21 Range/Units 06:52 07:04 07:06 WBC 18.62 H (4.50-10.00) X 10*3/uL RBC 3.99 L (4.10-5.20) X 10*6/uL Hgb 10.8 L (12.0-15.0) g/dL Hct 34.8 L (37.2-46.3) % MCHC 31.0 L (32.0-37.0) g/dL RDW 16.7 H (11.5-14.5) % Immature Gran # 0.44 H (0.00-0.04) X 10*3/uL Neutrophils # 16.78 H (1.80-7.70) X 10*3/uL Lymphocytes # 0.48 L (0.90-5.00) X 10*3/uL Eosinophils # 0 L (0.04-0.35) X 10*3/uL Carbon Dioxide 36 H (22-30) mmol/L BUN 29 H (7-17) mg/dL Glucose 139 H (74-99) mg/dL POC Glucose (mg/dL) 150 H (75-99) mg/dL 02/12/21 02/12/21 02/12/21 Range/Units 11:21 16:18 20:23 WBC (4.50-10.00) X 10*3/uL RBC (4.10-5.20) X 10*6/uL Hgb (12.0-15.0) g/dL Hct (37.2-46.3) % MCHC (32.0-37.0) g/dL RDW (11.5-14.5) % Immature Gran # (0.00-0.04) X 10*3/uL Neutrophils # (1.80-7.70) X 10*3/uL Lymphocytes # (0.90-5.00) X 10*3/uL Eosinophils # (0.04-0.35) X 10*3/uL Carbon Dioxide (22-30) mmol/L BUN (7-17) mg/dL Glucose (74-99) mg/dL POC Glucose (mg/dL) 135 H 158 H 194 H (75-99) mg/dL Microbiology - Last 24 Hours (Table) 02/10/21 20:33 Gram Stain - Preliminary Sputum Sputum Culture - Preliminary Aspergillus species Assessment and Plan Assessment: acute bilateral covid pneumonia Acute hypoxic respiratory failure secondary to above, on chronic hypoxic respiratory failure Elevated inflammatory markers Aspergillus species in the sputum cultures. CT of the chest showed no evidence of cavitary lesions. Covid gastroenteritis and hepatitis Elevated liver enzymes. Trending down. Elevated d-dimer with negative CTPA for pulmonary embolism. Patient is already on Eliquis Atrial fibrillation with history of stroke, on Eliquis History of coronary artery disease COPD, not in acute exacerbation Chronic hypoxic respiratory failure on 2 L of oxygen via nasal cannula History of GERD Hyperlipidemia Osteoarthritis Chronic low back pain Plan: this is a pleasant 65 years old female who presents with Covid pneumonia and hypoxia. Continue with Eliquis and IV solumedrol, c/w vitamin C, vitamin D and zinc. Continue to titrate down oxygen. Incentive spirometry. Patient is currently on 2 L oxygen via nasal cannula. Sputum cultures grew Aspergillus species. No evidence of cavitary lesion in the computed tomography scan. Patient was initially started on voriconazole but currently discontinued. ID is on board. Patient was out of window for remdesivir therapy. Monitored liver enzymes Labs and medication were reviewed..Continue with symptomatic treatment. Monitor lytes and vitals. DVT and GI prophylaxis. Further recommendationsas per clinical course of the patient DVT prophylaxis: Eliquis GI Prophylaxis: Ppi PT/OT: Pending Prognosis is guarded Time with Patient: Greater than 30
[2021-02-13 15:48] VITALS: TEMP 98
--- NOTE | 2021-02-13 15:55 | P.DS ---
Providers Date of admission: 01/30/21 17:41 Expected date of discharge: 02/13/21 Attending physician: Ghassan Bhatti Consults: 01/30/21 18:25 Consult Physician Routine Consulting Provider: Maciel Winn Consult Reason/Comments: covid pneumonia Do you want consulting provider notified?: Yes Consult Physician Routine Consulting Provider: Stevenson Tomlinson Consult Reason/Comments: covid Do you want consulting provider notified?: Yes Primary care physician: Marino David Hospital Course: Discharge diagnosis acute bilateral covid pneumonia Acute hypoxic respiratory failure secondary to above, on chronic hypoxic respiratory failure Elevated inflammatory markers Aspergillus species in the sputum cultures. CT of the chest showed no evidence of cavitary lesions. Covid gastroenteritis and hepatitis Elevated liver enzymes. Trending down. Elevated d-dimer with negative CTPA for pulmonary embolism. Patient is already on Eliquis Atrial fibrillation with history of stroke, on Eliquis History of coronary artery disease COPD, not in acute exacerbation Chronic hypoxic respiratory failure on 2 L of oxygen via nasal cannula History of GERD Hyperlipidemia Osteoarthritis Chronic low back pain Hospital course Patient is a pleasant 65 yo F with past medical history of atrial fibrillation on eliquis, coronary artery disease, COPD ON home oxygen ( 2 L/m), and f/u with , she quit smoking last august 2020, GERD, hyperlipidemia, osteoartheritis , chronic low back pain ,involving left leg numbness , scoliosis and seasonal ALLERGIES. She presents with some tachypnea, and covered with phlegm for more than 6-7 days associated with diarrhea for 3 days. No chest pain or abdominal pain. No nausea vomiting. She is hypoxemic needing a liter of oxygen via nasal cannula, she has low grade temperature of 100.2. Lap showing mild pancytopenia with WBC 4.4K, hemoglobin 11.3 and platelet 84. D-dimer is elevated 9.7, sodium 135, potassium 3.4, liver enzymes are elevated with normal total bilirubin of 0.8, AST is 1446 and ALT 1798. Amylase and lipase are normal. Urine analysis is mildly abnormal most likely due to dehydration. Sputum cultures pending EKG shows sinus tachycardia at [address]-T changes. QTC is 557. CT of the chest is negative for PE, showing emphysema and patchy ground glass appearance CT on both lungs. Gallbladder ultrasound showing gallbladder sludge and hepatomegaly, acute hepatitis panel is negative She is currently started on dexamethasone, she is already on Eliquis. She received fluids in the emergency room 02/01/2021 Patient respiratory distress is mild. No chest pain, no cough, diarrhea stopped. Oxygen saturation is stable on 8 L/m of oxygen via nasal cannula. showing improvement liver enzymes however they're still elevated. Patient remains on Eliquis, dexamethasone and multiple vitamins protocol with. No remdesivir due to elevated enzymes. 02/02/2021 Patient as a level of dyspnea as yesterday. No significant cough or chest pain and her diarrhea stopped. Her oxygen requirement is the same at 8 L/m via high flow nasal cannula. No labs from today. Patient remains on dexamethasone 6 mg daily, 1 dose OF MEDROL IS ADMITTED TODAY BECAUSE SHE WAS WHEEZING IN THE MORNING. PATIENT IS KNOWN CASE OF COPD SHE IS ON HOME OXYGEN AT 2 L/M AND SHE FOLLOWS UP WITH DR. ELLIS IN THE OUTPATIENT SETTING. CHECK LABS TOMORROW INCLUDING INFLAMMATORY MARKERS Chief continue with dexamethasone, Eliquis, multiple vitamins protocol that. 02/03/2021 Patient still with some dyspnea and needing 8 L of oxygen per minute to keep her saturation above 90%. No chest pain or significant diarrhea. Patient still have some cough and treated symptomatically. Patient hemodynamically stable other than that. Her labs included significant improvement with CBC with normal WBC and platelet count, hemoglobin stable at 11. LDH is trending down slowly to 4001 and C-reactive protein improved to 57. Liver enzymes are trending down. Patient remains on Eliquis, dexamethasone and multiple vitamins for covid 02/04/2021 Patient today is limited more wheezy and dyspneic with oxygen saturation went up to 2 L/m via nasal cannula. Jay with no chest pain or significant diarrhea. She is coughing somewhat phlegm and she refuses cough medicine because she was to clear her lungs as she states. D-dimer is coming down 9.7 down to 6.8, slightly improving inflammatory markers with LDH down to 35-7 and C-reactive protein to 41 0.8. Pulmonary team, and to continue same medication and check LFTs in the morning Patient remains on dexamethasone, vitamin C, D and zinc and Eliquis 5 mg. Norvasc added for better blood pressure control today 02/05/2021 Patient is currently lying in the bed awake alert and oriented. Feeling anxious. Still dyspneic with ambulation. No fever no chills. Currently on 10 L oxygen via nasal cannula. No complaints of chest pain. Patient is being continued on dexamethasone 6 mg daily and also anticoagulation with Eliquis due to chronic atrial fibrillation. Laboratory data showed AST 513, ALT 1252 and alk phos 203 and LDH was 3527. Pulmonary is on board. 02/06/2021 Patient is lying in the bed awake alert and oriented. Still requiring high flow oxygen at 10 L via nasal cannula. Patient states that she feels slightly better today. Still having exertional dyspnea. No complaints of fever or chills. No cough or sputum production. No nausea vomiting abdominal pain or diarrhea. Patient being continued on dexamethasone and Eliquis for chronic atrial fibrillation. Laboratory data showed D-dimer 5.46 and AST 305 ALT 1001 and alk phos 212 and LDH trending down to 717 and CRP is 4.2 today. Pulmonary and ID is following. Chest x-ray showed correlate for pneumonia. 02/07/2021 Patient is currently sitting the chair comfortably. Patient states that her breathing is better. Oxygen requirement is trending down to 6 L via nasal cannula. No complaints of chest pain or shortness of the. Laboratory data showed WBC 14.8 hemoglobin 12.1 and platelets 418 Sodium 137 potassium 4.7 BUN 25 and creatinine 0.60 AST 332 ALT 905 alk phos 218. LFTs are improving. Patient is being continued on IV Solu-Medrol 60 mg every 6 hourly and anticoagulation in the form of Eliquis. Currently on multivitamins. Patient has been afebrile. Tolerating oral diet. No nausea vomiting or abdominal pain. 02/08/2021 Patient is currently resting in the bed comfortably. Patient did complain of chest pain this morning. EKG showed normal sinus rhythm and troponin x1 -. Otherwise patient has been afebrile. Chest x-ray showed bilateral interstitial and alveolar infiltrates are stable correlate for interstitial pneumonia with superimposed consolidative pneumonia. Laboratory showed WBC 16.9, hemoglobin 11.4 and platelets 373 lymphocytes 0.6 and troponin x1 - 02/09/2021 Patient is currently lying in the bed comfortably. Requiring oxygen at 4 L via nasal cannula. Patient still having diffuse wheezing and coarse breath sounds. Patient has been afebrile. Chest x-ray today showed mild cardiomegaly and chronic emphysematous change with bilateral multifocal mid to lower lung opacities are redemonstrated consistent with COVID-19 infection. No significant change. Laboratory data showed WBC 16.9 hemoglobin 12.0 D-dimer 1.82 Sodium 139 BUN 27 creatinine 0.58 bicarb is 36, AST 2240 ALT 44 alk phos 208, liver functions are improving. Denied any nausea vomiting. Tolerating oral diet. Patient is being continued on IV Solu-Medrol and Eliquis 02/10/2021 Patient is currently lying in the bed and requiring 4 L oxygen via nasal cannula. Seems anxious. No complaints of chest pain or worsening shortness of breath. Patient has been getting IV Solu-Medrol. Original WBC count increased to 18.52 today. Hemoglobin 10.8 and platelets 369 neutrophils 16.09 sodium 146 potassium 5.3 chloride 105 bicarb is 35 and BUN 30 and creatinine 0.6 blood sugar is 188 and calcium 8.6 Patient is doing fine IV Solu-Medrol, Eliquis, Protonix and multivitamins and breathing treatments. Patient pulmonary is following. 02/11/2021 Patient is able to sit in the chair comfortably. Still requiring oxygen at 4 L via nasal cannula. Still having bilateral expiratory wheezing and scattered rhonchi. Patient is being continued on IV Solu-Medrol 40 mg every 8 hourly. On anticoagulation with Eliquis. Patient does have history of paroxysmal atrial fibrillation. Laboratory data showed WBC trending down to 16.9 today. Hemoglobin 10.6 and platelets 304 BUN 13 creatinine 0.6 sodium level improved to 141 and potassium 4.6. Chest x-ray showed findings consistent with prior history of Covid pneumonia. Pulmonary is on board. Anticipate discharge in the next 24 to 48 hours. 02/12/2021 Patient is currently sitting in the chair comfortably. Requiring oxygen at 2 L with other clinic. Bilateral wheezing is much improved and we will expiratory wheezing is still present. Sputum cultures grew Aspergillus species. CT of the chest was ordered to rule out any Lesions. ID and Pulmonary Is on Board. Patient Was Started on Voriconazole. Final Recommendations As per ID Service. Blood Pressure Is Stable and Continued on Anticoagulation with Eliquis. Laboratory data reviewed. WBC count 18.3 02/13/2021 Patient is currently sitting the chair comfortably. No complaints of chest pain or shortness of breath. Bilateral air entry is much improved. On 2 L oxygen with another cannula. Patient is being continued on Solu-Medrol changed to prednisone tapering course. Patient was initially started on voriconazole due to Aspergillus species in the sputum culture on 02/10/2021. CT showed no cavitary lesions. Voriconazole has been discontinued. Denied any complains of fever or chills. No nausea vomiting or abdominal pain. Tolerating oral diet. Patient did improve clinically. Able to be discharged to rehab and continue to titrate down oxygen to room air. PHYSICAL EXAMINATION: Patient is lying in the bed comfortably, no acute distress, awake alert and oriented.. HEENT: Normocephalic. Neck is supple. Pupils reactive. Nostrils clear. Oral cavity is moist. Ears reveal no drainage. Neck reveals no JVD, carotid bruits, or thyromegaly. CHEST EXAMINATION: Trachea is central. Symmetrical expansion. Expiratory wheezing and scattered rhonchi.. CARDIAC: Normal S1, S2 with no gallops. No murmurs ABDOMEN: Soft. Bowel sounds normal. No organomegaly. No abdominal bruits. Extremities: reveal no edema. No clubbing or cyanosis Neurologically awake, alert, oriented x3 with well-coordinated movements. No focal deficits noted Skin: No rash or skin lesions. Psychiatric: Coperative. Nonsuicidal Musculoskeletal: No joint swelling or deformity. Normal range of motion. Vital Signs 02/13/21 10:00 Temperature 98.3 F Pulse Rate [ 72 Pulse Oximetery ] Respiratory 16 Rate Blood Pressure 121/66 [Left Arm] O2 Sat by Pulse 94 L Oximetry Total time taken greater than 35 minutes including 18 minutes for counseling and coordination of care. Patient Condition at Discharge: Stable Plan - Discharge Summary Discharge Rx Participant: No New Discharge Prescriptions: New predniSONE See Taper PO DIRECTED #30 tab amLODIPine [Norvasc] 5 mg PO DAILY #30 tab Nystatin 100,000 Unit/ml Susp [Mycostatin Oral Susp] 500,000 unit PO QID 7 Days ml Continue Amiodarone [Cordarone] 200 mg PO BID 30 Days #60 tab Apixaban [Eliquis] 5 mg PO BID 30 Days #60 tab Montelukast [Singulair] 10 mg PO HS 30 Days #30 tab Famotidine [Pepcid] 20 mg PO BID lisinopriL [Zestril] 5 mg PO DAILY Tiotropium [place] [Spiriva] 1 cap INHALATION RT-DAILY Atorvastatin [Lipitor] 80 mg PO HS Budesonide-Formot 160-4.5 Mcg [Symbicort 160-4.5 Mcg Inhaler] 2 puff INHALATION RT-BID Albuterol Nebulized [Ventolin Nebulized] 2.5 mg INHALATION RT-QID PRN PRN Reason: Shortness Of Breath Benzocaine/Menthol Lozeng [Cepacol lozenge] 1 lozenge MUCOUS MEM Q4HR PRN PRN Reason: Sore Throat Ipratropium-Albuterol Nebulize [Duoneb 0.5 mg-3 mg/3 ml Soln] 3 ml INHALATION RT-QID 30 Days #120 ml Ipratropium-Albuterol Nebulize [Duoneb 0.5 mg-3 mg/3 ml Soln] 3 ml INHALATION RT-Q4H PRN ml PRN Reason: Shortness Of Breath Or Wheezing Discontinued predniSONE See Taper PO DIRECTED Discharge Medication List Amiodarone [Cordarone] 200 mg PO BID 30 Days #60 tab 06/12/20 [Rx] Apixaban [Eliquis] 5 mg PO BID 30 Days #60 tab 06/12/20 [Rx] Montelukast [Singulair] 10 mg PO HS 30 Days #30 tab 06/12/20 [Rx] Famotidine [Pepcid] 20 mg PO BID 08/04/20 [History] Atorvastatin [Lipitor] 80 mg PO HS 11/10/20 [History] Budesonide-Formot 160-4.5 Mcg [Symbicort 160-4.5 Mcg Inhaler] 2 puff INHALATION RT-BID 11/10/20 [History] Tiotropium [place] [Spiriva] 1 cap INHALATION RT-DAILY 11/10/20 [History] lisinopriL [Zestril] 5 mg PO DAILY 11/10/20 [History] Albuterol Nebulized [Ventolin Nebulized] 2.5 mg INHALATION RT-QID PRN 01/08/21 [History] Ipratropium-Albuterol Nebulize [Duoneb 0.5 mg-3 mg/3 ml Soln] 3 ml INHALATION RT-Q4H PRN ml 01/17/21 [Rx] Ipratropium-Albuterol Nebulize [Duoneb 0.5 mg-3 mg/3 ml Soln] 3 ml INHALATION RT-QID 30 Days #120 ml 01/17/21 [Rx] Benzocaine/Menthol Lozeng [Cepacol lozenge] 1 lozenge MUCOUS MEM Q4HR PRN 01/30/21 [History] Nystatin 100,000 Unit/ml Susp [Mycostatin Oral Susp] 500,000 unit PO QID 7 Days ml 02/13/21 [Rx] amLODIPine [Norvasc] 5 mg PO DAILY #30 tab 02/13/21 [Rx] predniSONE See Taper PO DIRECTED #30 tab 02/13/21 [Rx] Follow up Appointment(s)/Referral(s): Frankie Pichardo MD [Primary Care Provider] - 1-2 days Leobardo Funez [NON-STAFF] - As Needed Uma Ellis MD [STAFF PHYSICIAN] - 2 Weeks Patient Instructions/Handouts: Coronavirus Disease 2019 (COVID-19), COPD (Chronic Obstructive Pulmonary Disease) (ED) Discharge Disposition: TRANSFER TO SNF/ECF
--- NOTE | 2021-02-13 16:21 | PN ---
PROGRESS NOTE DATE OF SERVICE: 02/13/2021 REASON FOR FOLLOWUP: COVID-19 pneumonia. INTERVAL HISTORY: The patient is afebrile. The patient is feeling better. She is breathing more comfortably. The patient did have a cough with sputum, but no worsening. No hemoptysis. No abdominal pain. No diarrhea. EXAMINATION: Blood pressure 120/66, pulse of 72, temperature 98.3, she is 94% on 2 L nasal cannula. General description is a middle-aged female up in the chair in no distress. Respiratory system: Unlabored breathing, decreased intensity of breath sounds. No wheeze. HEART: S1, S2. Regular rate and rhythm. ABDOMEN: Soft, no tenderness. LABS: Hemoglobin is 10.8, white count 17.2, BUN of 26, creatinine 0.6. Sputum with . DIAGNOSTIC IMPRESSION AND PLAN: 1. Patient with COVID-19 infection in this patient who has shown overall clinical improvement. Finish therapy with short course of prednisone on discharge. 2. Oral thrush. Nystatin swish and swallow for 7 days. No need for systemic antifungals or antibiotics. MMODL / IJN: [id number] /
--- NOTE | 2021-02-13 16:42 | P.PN ---
Subjective Progress Note Date: 02/13/21 Principal diagnosis: Acute on chronic hypoxic respiratory failure secondary to acute COVID 19 pneumonia and history of underlying COPD 65-year-old white female patient who is familiar to our service from her previous history of hospitalizations for complications related to her underlying history of COPD stage III, on home oxygen. She follows with Dr. Artis in the pulmonary clinic. She is normally on 2 L of oxygen on a regular basis, patient had recent hospitalization for acute exacerbation of COPD complicated by purulent tracheal bronchitis. Her other medical history significant for hypertension, history of A. fib, previous history of CVA, [place], osteoarthritis, previous history of brain aneurysm with clipping, and previous history of smoking. She was discharged home on 01/17/2021, and was feeling well for a while, last week on she started feeling worse, denied any worsening dyspnea, she is chronically short of breath and that did not seem to get any w orse, however she is feeling very weak, she developed profuse diarrhea which she states is uncontrollable, and overall she feels quite rundown. She is also having some chest discomfort in the anterior sternal area which is worse with coughing and moving around, and some abdominal tenderness in the right upper and lower quadrants, but no nausea or vomiting, abdomen is soft. Chest x-ray in the emergency department shows COPD interstitial pneumonitis small bilateral pleural effusions, and a basilar consolidation. COVID 19 PCR was positive. Admission labs showed white blood cell count 5.4, hemoglobin is 12.7, platelet count is 60, d-dimer was increased at 9.7 to the patient is on Eliquis on a regular basis for history of A. fib, CTA chest was completed, however there was breathing motion artifact, but no evidence of large central or lobar branch pulmonary embolus, many segmental and more distal arterial branches were nondiagnostic, there were multifocal bilateral patchy and confluent groundglass opacities and a trace pleural effusions. There was a small hiatal hernia. Her enzymes were significantly elevated and ultrasound of the gallbladder was completely showing hepatomegaly, and sludge within the gallbladder. Currently patient is up to 8 L of oxygen, her pulse ox is 93%, hemodynamically she stable, she is in sinus mechanism, slightly tachycardic on the monitor. Troponin was 0.021. Her inflammatory markers were significantly elevated with LDH of 4970, and CRP is 203.5. AST was 1441, and ALT was 2053, total bilirubin was 0.9, and alk phos was 79. Urinalysis was positive for 2+ protein, nitrates, many bacteria. She is on Rocephin for empiric coverage, hepatitis panel was nonreactive, Tylenol level was less than 10. Amylase and lipase were negative at 43 and 53 re spectively. Patient was started on Decadron 6 milligram daily, her Eliquis continues, and patient is on amiodarone and Lipitor. Stool for C. diff has been ordered, cultures have been sent Reevaluated today on 02/01/21, patient seems to be doing fairly well, her O2 saturations 91% on 2 L nasal cannula. Patient was on 8 L on admission. Patient is normally on oxygen and home, she does have underlying COPD. Remains on the Covid 19 cocktail. Remains on bronchodilators. Patient did not receive REM mostly because of her liver enzymes being quite elevated. Remain elevated today but trending admitted down especially her ALT is down to 1798 from 2053 Patient was reevaluated today on 02/02/2021, remains on high flow oxygen, now she is on 8 L, O2 sats is ranging anywhere between 91% up to 97%. Today it is 94%. Patient looks comfortable, not in any distress. No labs were drawn today, but her labs from yesterday were reviewed, liver enzymes are improving a bit with ALT down to 1534 and AST is down to 758. Her last CT angiogram was on 01/31 which I have noted above. On 02/03/2021 patient seen in follow-up on medical floor, she is currently at 8 L of oxygen pulse ox is 91%, she is doing better, her LDH and CRP remain elevated but improving, her cough has improved, she started to bring up some yellowish colored phlegm, no hemoptysis, pro-calcitonin was 0.22, she is currently on oral Decadron, she continues on Robitussin, she is on inhalers, she is on oral anticoagulation in the form of Eliquis for her history of A. fib. Her liver enzymes were starting to improve. No acute events overnight. Patient was not a candidate for Remdesivir related to elevated liver enzymes. She cont inues on supportive treatment. On 02/06/2021 patient seen in follow-up on medical surgical floor, she continues to be on high flow oxygen chronically at 10 L, and her pulse ox is between 93- 98%, this can probably be weaned down. Appears to be breathing comfortably, she is afebrile, hemodynamically stable, no chest discomfort. Still has a cough with occasional sputum, no hemoptysis, no nausea vomiting or abdominal pain. She continues on Eliquis, Solu-Medrol, and multivitamins. She is clinically improving. Today's d-dimer is 5.46, electrolytes are unremarkable, liver enzymes are improving, AST is down to 305, ALT is 1001, alkaline phosphatase is 212, pro-calcitonin level is low at 0.22. She's had no fever or chills. No nausea vomiting or diarrhea. On 02/07/2021 patient seen in follow-up on medical surgical floor, she is improving, she is up in the chair, less bronchospastic less dyspneic, peripheral 6 L of oxygen, her pulse ox is 96%, this can probably be weaned little bit furth er, looks comfortable, breathing comfortably, denies any chest discomfort, no new chest x-ray today, today's labs have been noted, her last d-dimer from yesterday was still elevated although trending down at 5.46, BUN was 25, creatinine was 0.6, CO2 is 36, the rest of electrolytes were unremarkable, her LDH was also trending down, and was down to 717 on yesterday's labs, and CRP was down to 4.2, pro-calcitonin level was low at 0.22, and her LFTs are improving. She remains on being treatments, IV steroids 60 mg every 6 hours, and oral anticoagulation in the form of Eliquis. On 02/09/2021 patient seen in follow-up. Currently down to 4 L of oxygen, she feels that she is improving, breathing much easier, although generally remains weak, she was up to the chair, lung sounds reveal some diffuse wheezes, and coarse crackles, no fever or chills, overall feeling better, taste chest x-ray shows mild cardiomegaly and chronic emphysematous changes with bilateral multifocal lung opacities, consistent with COVID-19 pneumonia, stable in appearance. Today's labs have been reviewed showing d-dimer of 1.82, white blood cell count 16.9, stable, LFTs are improving, and inflammatory markers were improving, and we'll obtain follow-up inflammatory markers today. She is on oral anticoagulation in the form of Eliquis, she remains on pulmonary treatments, IV Solu-Medrol 60 every 6 hours. On 02/10/2001 patient seen in follow-up on medical surgical floor, she is improving, she is breathing easier, today she is at 4 L, and her pulse ox is 95%, she is still coughing, her cough is nonproductive, without chest pain, she continues on IV Solu-Medrol 60 mg every 6 hours, today's exam revealed some scattered wheezing, the patient is less bronchospastic on today's exam, overall she is improving, today's labs have been reviewed , blood cell count is 18.5, hemoglobin is 10.8, her last d-dimer from yesterday was 1.82, sodium is 146, respiratory lites are unremarkable, CO2 is 35.4. Her LFTs were improving, troponin is negative, we'll obtain a follow-up LDH and CRP. She's had no fever or chills. On 02/12/2020 patient seen in follow-up on medical surgical floor, she is currently on 4 L of oxygen pulse ox of 96%, she normally wears 2 L of home, she seems to be breathing comfortably, lung sounds reveal minimal wheezing, she denies any creased dyspnea and cough or congestion, she remains on Solu-Medrol 40 mg every 8 hours, she is on inhalers, and she is on oral anticoagulation the form of Eliquis. Today's labs have been reviewed, her white count is improving, down to 16.9, patient has had no fever, hemoglobin is 10.6, CO2 is 32, the rest of electrolytes are unremarkable, BUN is 30 creatinine 0.6, inflammatory markers are improving, LDH is 538, and CRP is less than 0.4 on today's labs. On 02/12/2021 patient seen in follow-up on medical surgical floor, she is improving, she is breathing easier, she is currently down to 2 L of oxygen, her pulse ox is 94-95%, she is afebrile, she looks very comfortable, breathing comfortably, her sputum culture showed Aspergillus, final culture is pending, ID service is on and has added voriconazole. The patient remains on Solu-Medrol 40 mg every 8 hours. She is on oral anticoagulation with Eliquis, likely looks pretty stable. His labs show white blood cell count of 18.6, hemoglobin is 10.8, last d-dimer from yesterday was 1.53, CO2 is up to 36 with electrolytes and renal profile were unremarkable. Her LFTs were improving on yesterday's labs. On 02/13/2021 patient seen in follow-up on medical surgical floor, she is breathing very comfortably, appears to be no acute distress, FiO2 is currently down to 2 L, pulse ox is 96%, she has no fever or chills, hemodynamically she stable, no cough, no significant chest congestion, no wheezing on today's exam. Voriconazole has been discontinued, and nystatin was added for oral thrush, clin ically stable, improving, his charge is pending for today to [facility] on the [place]. Today's labs have been noted Objective - Vital Signs Vital signs: Vital Signs Temp 98.0 F 02/13/21 14:00 Pulse 71 02/13/21 14:00 Resp 16 02/13/21 14:00 BP 137/69 02/13/21 14:00 Pulse Ox 96 02/13/21 14:00 Intake & Output 02/12/21 02/13/21 02/13/21 18:59 06:59 18:59 Intake Total 880 Balance 880 Intake: Oral 880 Other: Voiding Method Bedpan # Voids 3 2 - Exam GENERAL EXAM: Alert, pleasant, 65-year-old white female, currently on 2 L of oxygen, with a pulse ox of 95% HEAD: Normocephalic/atraumatic. EYES: Normal reaction of pupils, equal size. Conjunctiva pink, sclera white. NOSE: Clear with pink turbinates. THROAT: No erythema or exudates. NECK: No masses, no JVD, no thyroid enlargement, no adenopathy. CHEST: No chest wall deformity. Symmetrical expansion. LUNGS: Equal air entry with bilateral crackles and some scattered wheezes CVS: Regular rate and rhythm, normal S1 and S2, no gallops, no murmurs, no rubs ABDOMEN: Soft, nontender. No hepatosplenomegaly, normal bowel sounds, no guarding or rigidity. Mild tenderness with palpation in the right upper and lower quadrant EXTREMITIES: No clubbing, no edema, no cyanosis, 2+ pulses and upper and lower extremities. MUSCULOSKELETAL: Muscle strength and tone normal. SPINE: No scoliosis or deformity SKIN: No rashes CENTRAL NERVOUS SYSTEM: Alert and oriented -3. No focal deficits, tone is normal in all 4 extremities. PSYCHIATRIC: Alert and oriented -3. Appropriate affect. Intact judgment and insight. - Labs CBC & Chem 7: 02/13/21 06:40 02/13/21 06:40 Labs: Abnormal Lab Results - Last 24 Hours (Table) 02/12/21 02/13/21 02/13/21 Range/Units 20:23 06:40 06:40 WBC 17.32 H (4.50-10.00) X 10*3/uL Hgb 10.9 L (12.0-15.0) g/dL Hct 36.0 L (37.2-46.3) % MCH 26.5 L (27.0-32.0) pg MCHC 30.3 L (32.0-37.0) g/dL RDW 17.0 H (11.5-14.5) % Immature Gran # 0.39 H (0.00-0.04) X 10*3/uL Neutrophils # 15.84 H (1.80-7.70) X 10*3/uL Lymphocytes # 0.46 L (0.90-5.00) X 10*3/uL Eosinophils # 0 L (0.04-0.35) X 10*3/uL BUN/Creatinine Ratio 43.33 H (12.00-20.00) Ratio Glucose 141 H (70-110) mg/dL POC Glucose (mg/dL) 194 H (75-99) mg/dL Calcium 8.6 L (8.7-10.3) mg/dL 02/13/21 02/13/21 Range/Units 06:51 11:44 WBC (4.50-10.00) X 10*3/uL Hgb (12.0-15.0) g/dL Hct (37.2-46.3) % MCH (27.0-32.0) pg MCHC (32.0-37.0) g/dL RDW (11.5-14.5) % Immature Gran # (0.00-0.04) X 10*3/uL Neutrophils # (1.80-7.70) X 10*3/uL Lymphocytes # (0.90-5.00) X 10*3/uL Eosinophils # (0.04-0.35) X 10*3/uL BUN/Creatinine Ratio (12.00-20.00) Ratio Glucose (70-110) mg/dL POC Glucose (mg/dL) 155 H 238 H (75-99) mg/dL Calcium (8.7-10.3) mg/dL Microbiology - Last 24 Hours (Table) 02/10/21 20:33 Gram Stain - Final Sputum Sputum Culture - Final Aspergillus fumigatus Assessment and Plan Plan: Assessment: #1. Acute on chronic hypoxic respiratory failure related to acute COVID 19 pneumonia, patient's symptoms started last week on with 7 days of presentation, she tested positive on 01/30/2021 in the emergency department #2. Recent hospitalization for acute exacerbation of COPD, was negative for COVID 19 at that time, discharged home on 01/17/2021 #3. Elevated transaminases, possibly related to acute COVID 19 infection, lipase and amylase were negative, gallbladder ultrasound showing some sludge, gallbladder lorenzana within normal limits #4. Elevated d-dimer, patient is on Eliquis for history of A. fib, no evidence of PE on the CT chest #5. Possible urinary tract infection, send a urine culture #6. Diarrhea, rule out C. diff #7. History of COPD, stage III at baseline, with chronic hypoxic respiratory failure #8. Significantly elevated inflammatory markers related to COVID 19 #9. History of A. fib on Eliquis #10. Myocardial infarction #11. History of brain aneurysm with clippings #12. DJD #13. Aspergillus in the sputum, although we don't believe there is active pneumonia or pulmonary infection related to this organism, patient looks nontoxic, her breathing is actually improving, nevertheless patient is being covered with voriconazole and ID service is following Plan: Patient continues to improve, no acute events overnight, currently down to 2 L, maintaining O2 saturations above 92% Systemic antifungals have been discontinued, patient was placed on nystatin No fever or chills Patient can finish outpatient course of prednisone taper Patient is stable for discharge Patient is being discharged to the [facility] on the [place] sometime today I performed a history & physical examination of the patient and discussed their management with my nurse practitioner, Darcy Mccartney. I reviewed the nurse practitioner's note and agree with the documented findings and plan of care. Lung sounds are positive for diminished breath sounds with bibasilar crackles. The findings and the impression was discussed with the patient. I attest to the documentation by the nurse practitioner. Time with Patient: Less than 30
[2021-02-13 16:45] LABS: Glucose,Whole Blood 149 mg/dL (75-99)
[2021-02-13 17:55] VITALS: BP 139/73; PULSE 70
== END 2021-02-13 18:26 | DRG 177 ==
LOC: EC 12:43 → 4SSUR 17:41
PROVIDERS: ADMIT Hospitalist; ATTEND Hospitalist
PROC: 05HC33Z Insertion of Infusion Device into Left Basilic Vein, Percutaneous Approach (ICD-10-PCS; principal; 2021-02-04 12:05)
DX: U07.1 COVID-19 (principal); J12.82 Pneumonia due to coronavirus disease 2019; J96.21 Acute and chronic respiratory failure with hypoxia; J44.0 Chronic obstructive pulmonary disease with (acute) lower respiratory infection; A08.39 Other viral enteritis; B37.0 Candidal stomatitis; D61.818 Other pancytopenia; M15.9 Polyosteoarthritis, unspecified; M41.9 Scoliosis, unspecified; G89.29 Other chronic pain; M54.5 Low back pain; F32.9 Major depressive disorder, single episode, unspecified; K75.9 Inflammatory liver disease, unspecified; K44.9 Diaphragmatic hernia without obstruction or gangrene; I10 Essential (primary) hypertension; R16.0 Hepatomegaly, not elsewhere classified; E86.0 Dehydration; R74.01 Elevation of levels of liver transaminase levels; I25.10 Atherosclerotic heart disease of native coronary artery without angina pectoris; I48.0 Paroxysmal atrial fibrillation; K21.9 Gastro-esophageal reflux disease without esophagitis; E78.5 Hyperlipidemia, unspecified; J20.9 Acute bronchitis, unspecified; F41.9 Anxiety disorder, unspecified; Z79.01 Long term (current) use of anticoagulants; Z79.51 Long term (current) use of inhaled steroids; Z79.899 Other long term (current) drug therapy; Z88.6 Allergy status to analgesic agent; Z88.1 Allergy status to other antibiotic agents; Z88.2 Allergy status to sulfonamides; Z86.73 Personal history of transient ischemic attack (TIA), and cerebral infarction without residual deficits; I25.2 Old myocardial infarction; Z87.891 Personal history of nicotine dependence; Z98.51 Tubal ligation status; Z99.81 Dependence on supplemental oxygen; Z98.890 Other specified postprocedural states; Z98.1 Arthrodesis status; Z83.3 Family history of diabetes mellitus; Z82.49 Family history of ischemic heart disease and other diseases of the circulatory system; Z86.79 Personal history of other diseases of the circulatory system
CPT/HCPCS: 36410; 36415; 71045; 71046; 71260; 71275; 76705; 76937; 80048; 80053; 80074; 80143; 81001; 82150; 83605; 83615; 83690; 83735; 84145; 84484; 85025; 85379; 85610; 85730; 86140; 87040; 87070; 87205; 87635; 93005; 94640; 94760; 96374; 99285

== ENCOUNTER 2021-02-27 16:05 | Inpatient (IN) | payer OTHER ==
[2021-02-27] MEDS ORDERED: ACETAMINOPHEN TAB 325 MG TAB PO STA (16:47)
--- NOTE | 2021-02-27 16:57 | ED ---
SOB HPI - General Chief Complaint: Shortness of Breath Stated Complaint: EMMANUEL Time Seen by Provider: 02/27/21 16:47 Source: patient, EMS, RN notes reviewed Mode of arrival: EMS Limitations: no limitations - History of Present Illness Initial Comments: Patient is a 65-year-old female presents to emergency department complaining of increased dyspnea and increased oxygen need. She notes that she was Covid- positive spent some time in the hospital and recently discharged to [facility] approximately a week and half ago. She noted over the last several days it has been gradually increase her oxygen from 2 L to 4 L/m. She notes that the shortness of breath increases on exertion. She denied any other symptoms or complaints at this point. She is on a make sure she wasn't developing any pneumonias. She denied any chest pain headache nausea vomiting diarrhea constipation fatigue chills. - Related Data Home Medications Medication Instructions Recorded Confirmed Famotidine [Pepcid] 20 mg PO BID@0900,1700 08/04/20 02/27/21 lisinopriL [Zestril] 5 mg PO DAILY@0900 11/10/20 02/27/21 Albuterol Nebulized [Ventolin 2.5 mg INHALATION RT-DAILY PRN 01/08/21 02/27/21 Nebulized] Benzocaine/Menthol Lozeng [Cepacol 1 lozenge MUCOUS MEM Q4HR PRN 01/30/21 02/27/21 lozenge] Acetaminophen [Acetaminophen 8 650 mg PO DAILY@0600 02/27/21 02/27/21 Hour] Acetaminophen [Tylenol 8 Hour] 650 mg PO Q6H PRN 02/27/21 02/27/21 Acetaminophen-Codeine 300-30mg 1 tab PO Q6H PRN 02/27/21 02/27/21 [Tylenol w/codeine #3] Amiodarone [Cordarone] 200 mg PO BID@0900,209902/27/21 02/27/21 Apixaban [Eliquis] 5 mg PO BID@0900,209902/27/21 02/27/21 Atorvastatin Calcium [Lipitor] 40 mg PO HS@209902/27/21 02/27/21 Budesonide/Formoterol Fumarate 2 puff INHALATION RT-BID@0900,209902/27/21 02/27/21 [Symbicort 160-4.5 Mcg Inhaler] Ipratropium-Albuterol Nebulize 3 ml INHALATION RT-QID@00,06,12,18 02/27/21 02/27/21 [Duoneb 0.5 mg-3 mg/3 ml Soln] Montelukast [Singulair] 10 mg PO HS@2100 02/27/21 02/27/21 amLODIPine [Norvasc] 5 mg PO DAILY@0900 02/27/21 02/27/21 Allergies Allergy/AdvReac Type Severity Reaction Status Date / Time naproxen [From Naprosyn] Allergy Anaphylaxis Verified 02/27/21 17:45 Sulfa (Sulfonamide Allergy Anaphylaxis Verified 02/27/21 17:45 Antibiotics) azithromycin [From Zithromax] AdvReac does not Verified 02/27/21 17:45 take due to A-Fib Review of Systems ROS Statement: Those systems with pertinent positive or pertinent negative responses have been documented in the HPI. ROS Other: All systems not noted in ROS Statement are negative. Past Medical History Past Medical History: Atrial Fibrillation, Asthma, Coronary Artery Disease (CAD), COPD, CVA/TIA, GERD/Reflux, Hyperlipidemia, Myocardial Infarction (IN), Osteoarthritis (OA), Vascular Disorder Additional Past Medical History / Comment(s): Pt tested covid + 01/30/21 [facility] ER. Pt recently admitted to [facility] on 01/08/21 with acute on chronic respiratory failure/tracheobronchitis severe or bronchopneumonia. 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 Last Myocardial Infarction Date:: 10/19/2019 History of Any Multi-Drug Resistant Organisms: None Reported Past Surgical History: Heart Catheterization With Stent, Orthopedic Surgery, Tubal Ligation Additional Past Surgical History / Comment(s): 2019 PCI/stent R PDA, 2000 a ngiogram/brain aneurysum that is clipped, abdominal aortogram with R common iliac artery PTBA/stent, left shoulder rotator cuff repair, spine lumbar disc 3x fused Past Anesthesia/Blood Transfusion Reactions: No Reported Reaction Date of Last Stent Placement:: 10/19/19 Past Psychological History: Anxiety, Depression Smoking Status: Former smoker - Past Family History Father Family Medical History: Coronary Artery Disease (CAD), Diabetes Mellitus Additional Family Medical History / Comment(s): Father had 3 vessel CABG. He at the age of 69 from heart disease. Mother Family Medical History: Myocardial Infarction (IN) Additional Family Medical History / Comment(s): Mother of a IN at the age of 42 yrs. General Exam Limitations: no limitations General appearance: alert, in no apparent distress, obese Head exam: Present: atraumatic, normocephalic, normal inspection Eye exam: Present: normal appearance, PERRL, EOMI. Absent: scleral icterus, conjunctival injection, periorbital swelling Neck exam: Present: normal inspection Respiratory exam: Present: wheezes (Bilaterally). Absent: respiratory distress, rales, rhonchi, stridor Cardiovascular Exam: Present: regular rate, normal rhythm, normal heart sounds. Absent: systolic murmur, diastolic murmur, rubs, gallop, clicks GI/Abdominal exam: Present: soft, normal bowel sounds. Absent: distended, tenderness, guarding, rebound, rigid Extremities exam: Present: normal inspection, full ROM, normal capillary refill. Absent: tenderness, pedal edema, joint swelling, calf tenderness Neurological exam: Present: alert, oriented X3, CN II-XII intact Psychiatric exam: Present: normal affect, normal mood Skin exam: Present: warm, dry, intact, normal color. Absent: rash Course Vital Signs 02/27/21 02/27/21 02/27/21 16:10 17:06 18:07 Temperature 100.0 F H 101.6 F H 101.5 F H Pulse Rate 82 80 84 Respiratory 20 20 20 Rate Blood Pressure 107/95 131/53 O2 Sat by Pulse 95 93 L 93 L Oximetry Medical Decision Making - Medical Decision Making 65-year-old male complaining of increased dyspnea while recovering from Covid at [facility]. Labs, EKG, quality assurance monitor, 4 L of oxygen via nasal cannula, chest x-ray ordered. 650 mg of Tylenol ordered for mild fever. Labs unremarkable. Chest x-ray shows decreasing patchy infiltrates. Case discussed with Dr. Traore, patient will be admitted inpatient. Al Villalobos was consult and will accept the admission for Dr. Champion. With Dr. Winn on consult for pulmonology. - Lab Data Result diagrams: 02/27/21 16:52 02/27/21 16:52 Lab Results 02/27/21 02/27/21 02/27/21 Range/Units 16:52 16:52 16:52 WBC 7.3 (3.8-10.6) k/uL RBC 3.64 L (3.80-5.40) m/uL Hgb 10.0 L D (11.4-16.0) gm/dL Hct 30.8 L (34.0-46.0) % MCV 84.7 (80.0-100.0) fL MCH 27.4 (25.0-35.0) pg MCHC 32.3 (31.0-37.0) g/dL RDW 17.7 H (11.5-15.5) % Plt Count 147 L D (150-450) k/uL MPV 7.5 Neutrophils % 84 % Lymphocytes % 7 % Monocytes % 3 % Eosinophils % 5 % Basophils % 0 % Neutrophils # 6.2 (1.3-7.7) k/uL Lymphocytes # 0.5 L (1.0-4.8) k/uL Monocytes # 0.2 (0-1.0) k/uL Eosinophils # 0.4 (0-0.7) k/uL Basophils # 0.0 (0-0.2) k/uL Anisocytosis Slight PT 11.9 (9.0-12.0) sec INR 1.1 (<1.2) APTT 26.3 (22.0-30.0) sec D-Dimer 0.54 (<0.60) mg/L FEU Sodium 133 L (137-145) mmol/L Potassium 3.6 (3.5-5.1) mmol/L Chloride 98 (98-107) mmol/L Carbon Dioxide 30 (22-30) mmol/L Anion Gap 5 mmol/L BUN 17 (7-17) mg/dL Creatinine 0.48 L (0.52-1.04) mg/dL Est GFR (CKD-EPI)AfAm >90 (>60 ml/min/1.73 sqM) Est GFR (CKD-EPI)NonAf >90 (>60 ml/min/1.73 sqM) Glucose 106 H (74-99) mg/dL Plasma Lactic Acid Jack (0.7-2.0) mmol/L Calcium 8.2 L (8.4-10.2) mg/dL Magnesium 1.6 (1.6-2.3) mg/dL Total Bilirubin 0.6 (0.2-1.3) mg/dL AST 25 (14-36) U/L ALT 51 H (4-34) U/L Alkaline Phosphatase 97 (38-126) U/L Lactate Dehydrogenase 876 H (313-618) U/L C-Reactive Protein 25.8 H (<1.0) mg/dL Total Protein 5.1 L (6.3-8.2) g/dL Albumin 2.6 L (3.5-5.0) g/dL 02/27/21 Range/Units 16:52 WBC (3.8-10.6) k/uL RBC (3.80-5.40) m/uL Hgb (11.4-16.0) gm/dL Hct (34.0-46.0) % MCV (80.0-100.0) fL MCH (25.0-35.0) pg MCHC (31.0-37.0) g/dL RDW (11.5-15.5) % Plt Count (150-450) k/uL MPV Neutrophils % % Lymphocytes % % Monocytes % % Eosinophils % % Basophils % % Neutrophils # (1.3-7.7) k/uL Lymphocytes # (1.0-4.8) k/uL Monocytes # (0-1.0) k/uL Eosinophils # (0-0.7) k/uL Basophils # (0-0.2) k/uL Anisocytosis PT (9.0-12.0) sec INR (<1.2) APTT (22.0-30.0) sec D-Dimer (<0.60) mg/L FEU Sodium (137-145) mmol/L Potassium (3.5-5.1) mmol/L Chloride (98-107) mmol/L Carbon Dioxide (22-30) mmol/L Anion Gap mmol/L BUN (7-17) mg/dL Creatinine (0.52-1.04) mg/dL Est GFR (CKD-EPI)AfAm (>60 ml/min/1.73 sqM) Est GFR (CKD-EPI)NonAf (>60 ml/min/1.73 sqM) Glucose (74-99) mg/dL Plasma Lactic Acid Jack 1.3 (0.7-2.0) mmol/L Calcium (8.4-10.2) mg/dL Magnesium (1.6-2.3) mg/dL Total Bilirubin (0.2-1.3) mg/dL AST (14-36) U/L ALT (4-34) U/L Alkaline Phosphatase (38-126) U/L Lactate Dehydrogenase (313-618) U/L C-Reactive Protein (<1.0) mg/dL Total Protein (6.3-8.2) g/dL Albumin (3.5-5.0) g/dL - EKG Data -: EKG Interpreted by Me EKG shows normal: sinus rhythm Rate: normal EKG Comments: Ventricular rate 83 bpm, ID interval 182 ms, QRS duration 128 ms, QT/QTc 414/486 no seconds, PRT axes 65/40/42. Normal sinus rhythm, right bundle branch block, abnormal ECG. Disposition Clinical Impression: COPD (chronic obstructive pulmonary disease), COVID-19, Hypoxemia Disposition: ADMITTED IP TO THIS HOSP Condition: Stable Is patient prescribed a controlled substance at d/c from ED?: No Referrals: Frankie Pichardo MD [Primary Care Provider] - 1-2 days Time of Disposition: 18:28
[2021-02-27 17:02] LABS: Anisocytosis Slight; Basophils % (A) 0 %; Eosinophils # (A) 0.4 k/uL (0-0.7); Eosinophils % (A) 5 %; HCT 30.8 % (34.0-46.0); Lymphocytes # (A) 0.5 k/uL (1.0-4.8); Lymphocytes % (A) 7 %; MCH 27.4 pg (25.0-35.0); MCHC 32.3 g/dL (31.0-37.0); MCV 84.7 fL (80.0-100.0); Mean Platelet Volume 7.5; Monocytes # (A) 0.2 k/uL (0-1.0); Monocytes % (A) 3 %; Neutrophils # (A) 6.2 k/uL (1.3-7.7); Neutrophils % (A) 84 %; RBC 3.64 m/uL (3.80-5.40); RDW 17.7 % (11.5-15.5); WBC 7.3 k/uL (3.8-10.6)
[2021-02-27 17:13] LABS: ALT 51 U/L (4-34); AST 25 U/L (14-36); African American GFR (CKD) >90 (>60 ml/min/1.73 sqM); Albumin 2.6 g/dL (3.5-5.0); Alkaline Phosphatase 97 U/L (38-126); Anion Gap 5 mmol/L; Blood Urea Nitrogen 17 mg/dL (7-17); Calcium 8.2 mg/dL (8.4-10.2); Carbon Dioxide 30 mmol/L (22-30); Chloride 98 mmol/L (98-107); Glucose 106 mg/dL (74-99); LDH 876 U/L (313-618); Magnesium 1.6 mg/dL (1.6-2.3); Non-African American GFR(CKD) >90 (>60 ml/min/1.73 sqM); Potassium 3.6 mmol/L (3.5-5.1); Sodium 133 mmol/L (137-145); Total Bilirubin 0.6 mg/dL (0.2-1.3); Total Protein 5.1 g/dL (6.3-8.2)
[2021-02-27 17:28] LABS: Platelet Count 147 k/uL (150-450)
[2021-02-27 17:29] LABS: INR 1.1 (<1.2); Partial Thromboplastin Time 26.3 sec (22.0-30.0); Prothrombin Time 11.9 sec (9.0-12.0)
[2021-02-27 17:31] LABS: C Reactive Protein 25.8 mg/dL (<1.0)
--- NOTE | 2021-02-27 18:03 | XR ---
EXAM: XR Chest, 2 Views CLINICAL HISTORY: ITS.REASON XR Reason: Suspected COVID-19 pneumonia TECHNIQUE: Frontal and lateral views of the chest. COMPARISON: Chest radiograph on 02/11/2021 FINDINGS: Hardware: None. Lungs/pleura: Decreased patchy opacities bilaterally. No pleural effusion or pneumothorax. Heart/mediastinum: Normal. No cardiomegaly. Soft tissues: Unremarkable. Bones: No acute fracture. Upper abdomen: Normal. IMPRESSION: Decreased patchy opacities bilaterally, suggestive of decreasing Covid 19 infection changes.
[2021-02-27] MEDS ORDERED: NALOXONE 0.4 MG/ML 1 ML VIAL IV PRN (18:26)
[2021-02-27] MEDS: SODIUM CHLORIDE 0.9% 1,000 ML IV SCH (18:52)
[2021-02-27] MEDS ORDERED: MONTELUKAST 10 MG TAB PO SCH (23:00)
[2021-02-27] MEDS: APIXABAN 5 MG TAB PO SCH (23:00)
[2021-02-27] MEDS ORDERED: ATORVASTATIN 40 MG TAB PO SCH (23:00)
[2021-02-28] MEDS ORDERED: ALBUTEROL NEBULIZED 2.5 MG/3 ML INHALATION PRN (03:47)
[2021-02-28] MEDS: ALBUTEROL HFA INHALER INHALATION SCH ×5 (04:16→20:25)
[2021-02-28] MEDS ORDERED: VANCOMYCIN IV PER PHARMACY 1 EACH MISC MISCELLANE PRN (08:05)
[2021-02-28] MEDS ORDERED: IPRATROPIUM-ALBUTEROL 3 ML NEB INHALATION PRN (08:08)
[2021-02-28] MEDS: FAMOTIDINE 20 MG TAB PO SCH ×2 (08:27→16:31)
[2021-02-28] MEDS: APIXABAN 5 MG TAB PO SCH ×2 (08:27→20:20)
[2021-02-28] MEDS: AMIODARONE 200 MG TAB PO SCH ×2 (08:27→20:21)
[2021-02-28] MEDS: SODIUM CHLORIDE 0.9% 1,000 ML IV SCH ×2 (08:28→23:52)
[2021-02-28] MEDS: SYMBICORT 160-4.5 MCG INHALER INHALATION SCH ×2 (09:02→20:25)
--- NOTE | 2021-02-28 09:39 | P.HPIM ---
History of Present Illness Patient is a 65-year-old female was discharged from the hospital recently on 13 of February after about 15 days of hospitalization for Covid 19. Patient appears to have been discharged on 2 L of oxygen patient is wasn't in folds of a deborah and patient was sent to back here from [facility] as she is hypoxic into saturations of around 60%. Patient had high-grade fevers as well. Patient was complaining of cough. Patient denied any nausea vomiting. Patient chest x-ray showing improving infiltrates. Blood cultures, urine cultures urine analysis will be obtained sputum cultures will be obtain. There is a concern for second tobacco pneumonia because of which I'll start have the patient on vancomycin and Rocephin and the pulmonary and infectious disease will be consulted. She will not be started on any systemic steroids although has mild obese patient will be started on inhaled steroids patient probably will not benefit from any systemic steroids at this point of time. Review of Systems REVIEW OF SYSTEMS: CONSTITUTIONAL: No fever, no malaise, no fatigue. HEENT: No recent visual problems or hearing problems. Denied any sore throat. CARDIOVASCULAR: No chest pain, orthopnea, PND, no palpitations, no syncope. PULMONARY: As mentioned in HPI GASTROINTESTINAL: No diarrhea, no nausea, no vomiting, no abdominal pain. NEUROLOGICAL: No headaches, no weakness, no numbness. HEMATOLOGICAL: Denies any bleeding or petechiae. GENITOURINARY: Denies any burning micturition, frequency, or urgency. MUSCULOSKELETAL/RHEUMATOLOGICAL: Denies any joint pain, swelling, or any muscle pain. ENDOCRINE: Denies any polyuria or polydipsia. The rest of the 14-point review of systems is negative. Past Medical History Past Medical History: Atrial Fibrillation, Asthma, Coronary Artery Disease (CAD), COPD, CVA/TIA, GERD/Reflux, Hyperlipidemia, Myocardial Infarction (OK), Osteoarthritis (OA), Vascular Disorder Additional Past Medical History / Comment(s): Pt tested covid + 01/30/21 [facility] ER. Pt recently admitted to [facility] on 01/08/21 with acute on chronic respiratory failure/tracheobronchitis severe or bronchopneumonia. 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 Last Myocardial Infarction Date:: 10/19/2019 History of Any Multi-Drug Resistant Organisms: None Reported Past Surgical History: Heart Catheterization With Stent, Orthopedic Surgery, Tubal Ligation Additional Past Surgical History / Comment(s): 2019 PCI/stent R PDA, 2000 angiog concepcion/brain aneurysum that is clipped, abdominal aortogram with R common iliac artery PTBA/stent, left shoulder rotator cuff repair, spine lumbar disc 3x fused Past Anesthesia/Blood Transfusion Reactions: No Reported Reaction Date of Last Stent Placement:: 10/19/19 Past Psychological History: Anxiety, Depression Additional Psychological History / Comment(s): Pt resides alone. She has oxygen and a nebulizer. She does not drive, she uses a cab to get places. Smoking Status: Former smoker Past Alcohol Use History: None Reported Additional Past Alcohol Use History / Comment(s): Pt started smoking in 1975 and has quit august 2019 Past Drug Use History: None Reported - Past Family History Father Family Medical History: Coronary Artery Disease (CAD), Diabetes Mellitus Additional Family Medical History / Comment(s): Father had 3 vessel CABG. He at the age of 69 from heart disease. Mother Family Medical History: Myocardial Infarction (OK) Additional Family Medical History / Comment(s): Mother of a OK at the age of 42 yrs. Medications and Allergies Home Medications Medication Instructions Recorded Confirmed Type Famotidine [Pepcid] 20 mg PO BID@0900,1700 08/04/20 02/27/21 History lisinopriL [Zestril] 5 mg PO DAILY@0900 11/10/20 02/27/21 History Albuterol Nebulized [Ventolin 2.5 mg INHALATION RT-DAILY PRN 01/08/21 02/27/21 History Nebulized] Benzocaine/Menthol Lozeng [Cepacol 1 lozenge MUCOUS MEM Q4HR PRN 01/30/21 02/27/21 History lozenge] Acetaminophen [Acetaminophen 8 650 mg PO DAILY@0600 02/27/21 02/27/21 History Hour] Acetaminophen [Tylenol 8 Hour] 650 mg PO Q6H PRN 02/27/21 02/27/21 History Acetaminophen-Codeine 300-30mg 1 tab PO Q6H PRN 02/27/21 02/27/21 History [Tylenol w/codeine #3] Amiodarone [Cordarone] 200 mg PO BID@0900,209902/27/21 02/27/21 History Apixaban [Eliquis] 5 mg PO BID@0900,209902/27/21 02/27/21 History Atorvastatin Calcium [Lipitor] 40 mg PO HS@209902/27/21 02/27/21 History Budesonide/Formoterol Fumarate 2 puff INHALATION RT-BID@0900,209902/27/21 02/27/21 History [Symbicort 160-4.5 Mcg Inhaler] Ipratropium-Albuterol Nebulize 3 ml INHALATION RT-QID@00,06,12,18 02/27/21 02/27/21 History [Duoneb 0.5 mg-3 mg/3 ml Soln] Montelukast [Singulair] 10 mg PO HS@209902/27/21 02/27/21 History amLODIPine [Norvasc] 5 mg PO DAILY@0900 02/27/21 02/27/21 History Allergies Allergy/AdvReac Type Severity Reaction Status Date / Time naproxen [From Naprosyn] Allergy Anaphylaxis Verified 02/27/21 17:45 Sulfa (Sulfonamide Allergy Anaphylaxis Verified 02/27/21 17:45 Antibiotics) azithromycin [From Zithromax] AdvReac does not Verified 02/27/21 17:45 take due to A-Fib Physical Exam Vitals: Vital Signs Temp Pulse Pulse Resp BP BP Pulse Ox 02/28/21 01:28 98.5 F 82 17 139/54 96 02/27/21 20:55 97.7 F 79 15 113/66 93 L 02/27/21 20:17 99.3 F 108 H 18 127/59 95 02/27/21 20:00 15 02/27/21 19:21 99.3 F 108 H 18 127/59 95 02/27/21 18:14 20 02/27/21 18:07 101.5 F H 84 20 131/53 93 L 02/27/21 17:06 101.6 F H 80 20 93 L 02/27/21 16:10 100.0 F H 82 20 107/95 95 Intake and Output 02/27/21 02/28/21 02/28/21 22:59 06:59 14:59 Other: Voiding Method Toilet Bedside Commode Bedpan # Voids 2 Weight 90.718 kg PHYSICAL EXAMINATION: GENERAL: The patient is alert and oriented x3, not in any acute distress. Well developed, well nourished. HEENT: Pupils are round and equally reacting to light. EOMI. No scleral icterus. No conjunctival pallor. Normocephalic, atraumatic. No pharyngeal erythema. No thyromegaly. CARDIOVASCULAR: S1 and S2 present. No murmurs, rubs, or gallops. PULMONARY: Decreased air entry and mild expiratory wheezing on exam. ABDOMEN: Soft, nontender, nondistended, normoactive bowel sounds. No palpable organomegaly. MUSCULOSKELETAL: No joint swelling or deformity. EXTREMITIES: No cyanosis, clubbing, or pedal edema. NEUROLOGICAL: Gross neurological examination did not reveal any focal deficits. SKIN: No rashes. Results CBC & Chem 7: 02/27/21 16:52 02/27/21 16:52 Labs: Abnormal Lab Results - Last 24 Hours (Table) 02/27/21 02/27/21 02/27/21 Range/Units 16:52 16:52 16:52 RBC 3.64 L (3.80-5.40) m/uL Hgb 10.0 L D (11.4-16.0) gm/dL Hct 30.8 L (34.0-46.0) % RDW 17.7 H (11.5-15.5) % Plt Count 147 L D (150-450) k/uL Lymphocytes # 0.5 L (1.0-4.8) k/uL Sodium 133 L (137-145) mmol/L Creatinine 0.48 L (0.52-1.04) mg/dL Glucose 106 H (74-99) mg/dL Calcium 8.2 L (8.4-10.2) mg/dL ALT 51 H (4-34) U/L Lactate Dehydrogenase 876 H (313-618) U/L C-Reactive Protein 25.8 H (<1.0) mg/dL Total Protein 5.1 L (6.3-8.2) g/dL Albumin 2.6 L (3.5-5.0) g/dL Procalcitonin 0.29 H (0.02-0.09) ng/mL SARS-CoV-2 (PCR) (Not Detectd) 02/27/21 Range/Units 18:45 RBC (3.80-5.40) m/uL Hgb (11.4-16.0) gm/dL Hct (34.0-46.0) % RDW (11.5-15.5) % Plt Count (150-450) k/uL Lymphocytes # (1.0-4.8) k/uL Sodium (137-145) mmol/L Creatinine (0.52-1.04) mg/dL Glucose (74-99) mg/dL Calcium (8.4-10.2) mg/dL ALT (4-34) U/L Lactate Dehydrogenase (313-618) U/L C-Reactive Protein (<1.0) mg/dL Total Protein (6.3-8.2) g/dL Albumin (3.5-5.0) g/dL Procalcitonin (0.02-0.09) ng/mL SARS-CoV-2 (PCR) Detected A (Not Detectd) Thrombosis Risk Factor Assmnt - Choose All That Apply Any of the Below Risk Factors Present?: Yes Each Factor Represents 1 point: Abnormal pulmonary function (COPD), Acute [place] Other Risk Factors: Yes Each Risk Factor Represents 2 Points: Age 61-74 years Thrombosis Risk Factor Assessment Total Risk Factor Score: 4 Thrombosis Risk Factor Assessment Level: Moderate Risk Assessment and Plan Plan: -Acute on chronic hypoxic respiratory failure: Patient was recently treated for Covid 19 possibility of second rectal pneumonia cannot be ruled out patient will be started on vancomycin pharmacy dose, Rocephin. Pulmonary and infectious disease will be consulted. Patient was started on inhaled steroids continue wit h inhalational treatments. She apparently has had Aspergillus species in the sputum cultures during her previous hospitalization CT did not show any cavitary lesions -Mildly elevated liver enzymes which appears to be trend down from her previous hospitalization. -Atrial fibrillation with history of stroke on Eliquis which will be continued -Coronary artery disease -COPD without any acute exacerbation -chronic hypoxic and hypercapnic respiratory failure probably because of COPD patient does COPD exacerbation at this time as well. -Gastroesophageal reflux disease -Hyperlipidemia -Chronic low back pain. -GI prophylaxis with Pepcid
[2021-02-28] MEDS: VANCOMYCIN 1,500 MG in SODIUM CHLORIDE 0.9% 250 ML IVPB SCH ×2 (10:02→16:30)
[2021-02-28 11:40] LABS: Appearance,Urine Clear (Clear); Bacteria,Urine Rare /hpf; Bilirubin,Urine Negative (Negative); Blood,Urine Negative (Negative); Color,Urine Yellow; Glucose,Urine (UA) Negative (Negative); Ketones,Urine Negative (Negative); Leukocyte Esterase,Urine Small (Negative); Mucus,Urine Few /hpf; Nitrite,Urine Negative (Negative); Protein,Urine 1+ (Negative); RBC,Urine 3 /hpf (0-5); Specific Gravity,Urine 1.019 (1.001-1.035); Squamous Epithelial Cell,Urine 6 /hpf (0-4); WBC,Urine 4 /hpf (0-5)
[2021-02-28] MEDS: IPRATROPIUM-ALBUTEROL 3 ML NEB INHALATION SCH ×2 (12:03→17:25)
[2021-02-28] MEDS: ACETAMINOPHEN TAB 325 MG TAB PO SCH (12:12)
--- NOTE | 2021-02-28 15:28 | P.CNPUL ---
History of Present Illness Consult date: 02/28/21 Reason for consult: dyspnea History of present illness: 65-year-old female patient, sent over again from [facility] on the banda where she was recuperating from her COVID-19 related pneumonia/infection. The patient was sent back to the emergency as there was some reported worsening shortness of breath and hypoxemia. At the longterm, the patient was utilizing oxygen at 2 L per minute nasal cannula and she had to be placed on dual 4 L along with the shortness of breath and for that reason she was sent in the hospital for further evaluation. The patient is reporting weakness pH she declines having any major recovery at the longterm. She still having some shortness of breath. She has a congested cough and also that his sputum production. He is in the hospital, the patient was found to her white cell count of 7.3 with a hemoglobin of 10 and a platelet 147. The electrodes are normal. Renal function was normal. LFTs were normal. Focused on level was 0.29. Urinalysis was essentially negative balance of +1 glucose. She was still positive for COVID- 19. Sodium level was 133. Chest x-ray was done and it showed patchy pulmonary opacities and infiltrates bilaterally consistent with COVID-19 related pneumonia with infiltrates probably stable compared to the previous x-ray from 02/11/2021. There may be some interval improvement upon detailed comparison.. Inflammatory markers showed a CRP of 25, LDH was 876 and the liver functions were essentially within normal limits. Review of Systems Constitutional: Reports fatigue, Reports lethargy, Reports weakness Eyes: denies as per HPI, denies blurred vision, denies bulging eye, denies decreased vision, denies diplopia, denies discharge, denies dry eye, denies irritation, denies itching, denies pain, denies photophobia, denies loss of peripheral vision, denies loss of vision, denies tunnel vision/blind spots Ears: deny: decreased hearing, ear discharge, earache, tinnitus Ears, nose, mouth and throat: Reports as per HPI Breasts: absent: as per HPI, change in shape, gynecomastia, masses, nipple discharge, pain, skin changes, swelling Cardiovascular: Reports decreased exercise tolerance Respiratory: Reports cough, Reports dyspnea, Reports home oxygen Gastrointestinal: Reports as per HPI Genitourinary: Reports as per HPI Menstruation: Reports as per HPI Musculoskeletal: Reports as per HPI, Reports muscle weakness Musculoskeletal: absent: ankle pain, ankle stiffness, ankle swelling, as per HPI, elbow pain, elbow stiffness, elbow swelling, foot pain, foot stiffness, foot swelling, hand pain, hand stiffness, hand swelling, hip pain, hip stiffness , hip swelling, knee pain, knee stiffness, knee swelling, shoulder pain, shoulder stiffness, shoulder swelling, wrist pain, wrist stiffness, wrist swelling Integumentary: Reports as per HPI Neurological: Reports gait dysfunction, Reports weakness Psychiatric: Reports as per HPI Endocrine: Reports as per HPI Hematologic/Lymphatic: Reports as per HPI Allergic/Immunologic: Reports as per HPI Past Medical History Past Medical History: Atrial Fibrillation, Asthma, Coronary Artery Disease (CAD), COPD, CVA/TIA, GERD/Reflux, Hyperlipidemia, Myocardial Infarction (DC), Osteoarthritis (OA), Vascular Disorder Additional Past Medical History / Comment(s): Pt tested covid + 01/30/21 [facility] ER. Pt recently admitted to [facility] on 01/08/21 with acute on chronic respiratory failure/tracheobronchitis severe or bronchopneumonia. 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 Last Myocardial Infarction Date:: 10/19/2019 History of Any Multi-Drug Resistant Organisms: None Reported Past Surgical History: Heart Catheterization With Stent, Orthopedic Surgery, Tubal Ligation Additional Past Surgical History / Comment(s): 2019 PCI/stent R PDA, 2000 angiogram/brain aneurysum that is clipped, abdominal aortogram with R common iliac artery PTBA/stent, left shoulder rotator cuff repair, spine lumbar disc 3x fused Past Anesthesia/Blood Transfusion Reactions: No Reported Reaction Date of Last Stent Placement:: 10/19/19 Past Psychological History: Anxiety, Depression Additional Psychological History / Comment(s): Pt resides alone. She has oxygen and a nebulizer. She does not drive, she uses a cab to get places. Smoking Status: Former smoker Past Alcohol Use History: None Reported Additional Past Alcohol Use History / Comment(s): Pt started smoking in 1975 and has quit august 2019 Past Drug Use History: None Reported - Past Family History Father Family Medical History: Coronary Artery Disease (CAD), Diabetes Mellitus Additional Family Medical History / Comment(s): Father had 3 vessel CABG. He at the age of 69 from heart disease. Mother Family Medical History: Myocardial Infarction (DC) Additional Family Medical History / Comment(s): Mother of a DC at the age of 42 yrs. Medications and Allergies Home Medications Medication Instructions Recorded Confirmed Type Famotidine [Pepcid] 20 mg PO BID@0900,1700 08/04/20 02/27/21 History lisinopriL [Zestril] 5 mg PO DAILY@0900 11/10/20 02/27/21 History Albuterol Nebulized [Ventolin 2.5 mg INHALATION RT-DAILY PRN 01/08/21 02/27/21 History Nebulized] Benzocaine/Menthol Lozeng [Cepacol 1 lozenge MUCOUS MEM Q4HR PRN 01/30/21 02/27/21 History lozenge] Acetaminophen [Acetaminophen 8 650 mg PO DAILY@0600 02/27/21 02/27/21 History Hour] Acetaminophen [Tylenol 8 Hour] 650 mg PO Q6H PRN 02/27/21 02/27/21 History Acetaminophen-Codeine 300-30mg 1 tab PO Q6H PRN 02/27/21 02/27/21 History [Tylenol w/codeine #3] Amiodarone [Cordarone] 200 mg PO BID@0900,209902/27/21 02/27/21 History Apixaban [Eliquis] 5 mg PO BID@0900,209902/27/21 02/27/21 History Atorvastatin Calcium [Lipitor] 40 mg PO HS@209902/27/21 02/27/21 History Budesonide/Formoterol Fumarate 2 puff INHALATION RT-BID@0900,209902/27/21 02/27/21 History [Symbicort 160-4.5 Mcg Inhaler] Ipratropium-Albuterol Nebulize 3 ml INHALATION RT-QID@00,06,12,18 02/27/21 02/27/21 History [Duoneb 0.5 mg-3 mg/3 ml Soln] Montelukast [Singulair] 10 mg PO HS@209902/27/21 02/27/21 History amLODIPine [Norvasc] 5 mg PO DAILY@0900 02/27/21 02/27/21 History Allergies Allergy/AdvReac Type Severity Reaction Status Date / Time naproxen [From Naprosyn] Allergy Anaphylaxis Verified 02/27/21 17:45 Sulfa (Sulfonamide Allergy Anaphylaxis Verified 02/27/21 17:45 Antibiotics) azithromycin [From Zithromax] AdvReac does not Verified 02/27/21 17:45 take due to A-Fib Physical Exam Vitals: Vital Signs Temp Pulse Pulse Resp BP BP Pulse Ox 02/28/21 14:00 98.5 F 83 18 118/63 94 L 02/28/21 08:00 98.5 F 83 18 96/57 95 02/28/21 01:28 98.5 F 82 17 139/54 96 02/27/21 20:55 97.7 F 79 15 113/66 93 L 02/27/21 20:17 99.3 F 108 H 18 127/59 95 02/27/21 20:00 15 02/27/21 19:21 99.3 F 108 H 18 127/59 95 02/27/21 18:14 20 02/27/21 18:07 101.5 F H 84 20 131/53 93 L 02/27/21 17:06 101.6 F H 80 20 93 L 02/27/21 16:10 100.0 F H 82 20 107/95 95 Intake and Output 02/28/21 02/28/21 02/28/21 06:59 14:59 22:59 Other: Voiding Method Bedside Commode Bedpan # Voids 2 GENERAL EXAM: Alert, pleasant, 65-year-old white female, currently on 4 L of oxygen, with a pulse ox of 94% HEAD: Normocephalic/atraumatic. EYES: Normal reaction of pupils, equal size. Conjunctiva pink, sclera white. NOSE: Clear with pink turbinates. THROAT: No erythema or exudates. NECK: No masses, no JVD, no thyroid enlargement, no adenopathy. CHEST: No chest wall deformity. Symmetrical expansion. LUNGS: Equal air entry with bilateral crackles CVS: Regular rate and rhythm, normal S1 and S2, no gallops, no murmurs, no rubs ABDOMEN: Soft, nontender. No hepatosplenomegaly, normal bowel sounds, no guarding or rigidity. Mild tenderness with palpation in the right upper and lower quadrant EXTREMITIES: No clubbing, no edema, no cyanosis, 2+ pulses and upper and lower extremities. MUSCULOSKELETAL: Muscle strength and tone normal. SPINE: No scoliosis or deformity SKIN: No rashes CENTRAL NERVOUS SYSTEM: Alert and oriented -3. No focal deficits, tone is normal in all 4 extremities. PSYCHIATRIC: Alert and oriented -3. Appropriate affect. Intact judgment and insight. Results 1 COVID-19 related pneumonia with hypoxic respiratory failure, subacute. The patient was originally diagnosed on 01/30/2021. She was discharged to longterm on 02/13/2021 after being treated for coronary 19 related pneumonia. She was discharged on oxygen at 2 L per minute nasal cannula. She was readmitted for worsening shortness of breath. Her rehabilitation longterm has been quite limited. Chest x-ray showing some interval improvement in the pulmonary infiltrates associated with COVID-19 pneumonia. No other exacerbating or decompensating fact identified on today's evaluation. Superinfection with pneumonia is felt to be less likely. No signs of any decompensated heart failure. 2 COPD with chronic hypoxic respiratory failure, last hospital physician. Awa floydtion was back in December 2020. 3 chronic atrial fibrillation 4 hypertension 5 hyperlipidemia 6 history of CVA 7 coronary artery disease with previous DC 8 chronic hypoxic respiratory failure 9 history of [employer] aneurysm post clipping back in 2000 Plan The patient is a focused insulin level of 0.29 Inflammatory markers are mildly elevated Continue same treatment Continue current antibiotic coverage. My overall suspicion for underlying bacterial infection or superinfection is low. In fact I feel that the patient's pulmonary infiltrates have improved on the follow-up chest x-ray and for that reason I'm going to order a computed tomography scan of the chest, noncontrast study to evaluate the progression and compare with the previous CAT scan of the chest was done early in January and assess the patient disease progression terms of COVID-19 pneumonia. She is currently on 4 L of oxygen by nasal cannula. Continue long-term articulation with Eliquis Continue supportive care We'll continue to follow make further recommendations based on her progression - Laboratory Findings CBC and BMP: 02/27/21 16:52 02/27/21 16:52 PT/INR, D-dimer PT 11.9 sec (9.0-12.0) 02/27/21 16:52 INR 1.1 (<1.2) 02/27/21 16:52 D-Dimer 0.54 mg/L FEU (<0.60) 02/27/21 16:52 Abnormal lab findings: Abnormal Labs 02/27/21 02/27/21 02/27/21 16:52 16:52 16:52 RBC 3.64 L Hgb 10.0 L D Hct 30.8 L RDW 17.7 H Plt Count 147 L D Lymphocytes # 0.5 L Sodium 133 L Creatinine 0.48 L Glucose 106 H Calcium 8.2 L ALT 51 H Lactate Dehydrogenase 876 H C-Reactive Protein 25.8 H Total Protein 5.1 L Albumin 2.6 L Procalcitonin 0.29 H Urine Protein Ur Leukocyte Esterase Ur Squamous Epith Cells Urine Bacteria Urine Mucus SARS-CoV-2 (PCR) 02/27/21 02/28/21 18:45 11:00 RBC Hgb Hct RDW Plt Count Lymphocytes # Sodium Creatinine Glucose Calcium ALT Lactate Dehydrogenase C-Reactive Protein Total Protein Albumin Procalcitonin Urine Protein 1+ H Ur Leukocyte Esterase Small H Ur Squamous Epith Cells 6 H Urine Bacteria Rare H Urine Mucus Few H SARS-CoV-2 (PCR) Detected A - Diagnostic Findings Chest x-ray: image reviewed
--- NOTE | 2021-02-28 16:11 | CT ---
EXAMINATION TYPE: CT chest wo con DATE OF EXAM: 02/28/2021 COMPARISON: 02/12/2021 HISTORY: Continued chest discomfort. CT DLP: 401.1 mGycm Automated exposure control for dose reduction was used. Images were obtained from the thoracic inlet to the diaphragm with no contrast. There is extensive interstitial patchy infiltrates in both lungs which is worse in the right lung com pared to the left. There are patchy areas of atelectasis in the mid and lower lung coles. There is n o pleural effusion. Heart size is normal. There is no pericardial effusion. There is 2 cm pretracheal lymph node. Thoracic aorta is atheromatous. There are no hilar masses. Thoracic spine is intact. There is no compression fracture. Sternum is intact. There is slight thorac ic dextroscoliosis. There are calcified multiple small gallstones. IMPRESSION: Extensive patchy predominantly interstitial pulmonary infiltrates are increased compared to recent ex am. There is also patchy atelectasis in both lungs also slightly increased. This is likely inflammato ry disease. There is enlarged pretracheal lymph node slightly increased compared to old exam.
[2021-02-28] MEDS: MONTELUKAST 10 MG TAB PO SCH (20:20)
[2021-02-28] MEDS: ATORVASTATIN 40 MG TAB PO SCH (20:21)
[2021-03-01] MEDS: VANCOMYCIN 1,500 MG in SODIUM CHLORIDE 0.9% 250 ML IVPB SCH ×3 (00:44→16:03)
--- NOTE | 2021-03-01 07:12 | P.CONS ---
History of Present Illness - Reason for Consult Consult date: 02/28/21 Fever/pneumonia Requesting physician: Tram Mccarty - Chief Complaint shortness of breath and low oxygen x 1 day - History of Present Illness Patient is a 65-year-old female who was recently admitted at this facility and was treated for COVID-19 pneumonia patient was subsequent stabilized and was discharged to the [facility] patient pr esenting back to [facility] ER yesterday afternoon for evaluation of increasing shortness of breath and need for increasing oxygen apparently the patient was on 2 L of nasal cannula oxygen and that has to be increased up to 4 L nasal cannula patient was still complaining of increasing shortness of breath on exertion the patient denies having any chest pain patient did have a cough which is moderate intensity with occasional sputum production some nausea but no vomiting no abdominal pain or diarrhea with the symptom the patient was evaluated by ER physician on arrival to the ER patient did have a fever of 101.6 F patient did not have significant tachycardia she was satting 9395% on 4 L nasal cannula patient did have a normal white count with lymphopenia D-dimer was normal creatinine was 0.48 AST was mildly elevated LDH CRP were elevated procalcitonin was also mildly elevated babb PCR came back positive RSV and influenza PCR were negative patient did have a chest x-ray decreased patchy opacity bilaterally suggestive of decreasing COVID-19 infection changes with concern for possible secondary bacterial pneumonia patient was started on Rocephin and vancomycin infectious disease was consulted for further management of antibiotic therapy Review of Systems Positive point has been mentioned in the HPI rest of the systems are negative Past Medical History Past Medical History: Atrial Fibrillation, Asthma, Coronary Artery Disease (CAD), COPD, CVA/TIA, GERD/Reflux, Hyperlipidemia, Myocardial Infarction (DE), Osteoarthritis (OA), Vascular Disorder Additional Past Medical History / Comment(s): Pt tested covid + 01/30/21 [facility] ER. Pt recently admitted to [facility] on 01/08/21 with acute on chronic respiratory failure/tracheobronchitis severe or bronchopneumonia. 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 Last Myocardial Infarction Date:: 10/19/2019 History of Any Multi-Drug Resistant Organisms: None Reported Past Surgical History: Heart Catheterization With Stent, Orthopedic Surgery, Tubal Ligation Additional Past Surgical History / Comment(s): 2019 PCI/stent R PDA, 2001 angiogram/brain aneurysum that is clipped, abdominal aortogram with R common iliac artery PTBA/stent, left shoulder rotator cuff repair, spine lumbar disc 3x fused Past Anesthesia/Blood Transfusion Reactions: No Reported Reaction Date of Last Stent Placement:: 10/19/19 Past Psychological History: Anxiety, Depression Additional Psychological History / Comment(s): Pt resides alone. She has oxygen and a nebulizer. She does not drive, she uses a cab to get places. Smoking Status: Former smoker Past Alcohol Use History: None Reported Additional Past Alcohol Use History / Comment(s): Pt started smoking in 1975 and has quit august 2019 Past Drug Use History: None Reported - Past Family History Father Family Medical History: Coronary Artery Disease (CAD), Diabetes Mellitus Additional Family Medical History / Comment(s): Father had 3 vessel CABG. He at the age of 69 from heart disease. Mother Family Medical History: Myocardial Infarction (DE) Additional Family Medical History / Comment(s): Mother of a DE at the age of 42 yrs. Medications and Allergies Home Medications Medication Instructions Recorded Confirmed Type Famotidine [Pepcid] 20 mg PO BID@0900,1700 08/04/20 02/27/21 History lisinopriL [Zestril] 5 mg PO DAILY@0900 11/10/20 02/27/21 History Albuterol Nebulized [Ventolin 2.5 mg INHALATION RT-DAILY PRN 01/08/21 02/27/21 History Nebulized] Benzocaine/Menthol Lozeng [Cepacol 1 lozenge MUCOUS MEM Q4HR PRN 01/30/21 02/27/21 History lozenge] Acetaminophen [Acetaminophen 8 650 mg PO DAILY@0600 02/27/21 02/27/21 History Hour] Acetaminophen [Tylenol 8 Hour] 650 mg PO Q6H PRN 02/27/21 02/27/21 History Acetaminophen-Codeine 300-30mg 1 tab PO Q6H PRN 02/27/21 02/27/21 History [Tylenol w/codeine #3] Amiodarone [Cordarone] 200 mg PO BID@0900,209902/27/21 02/27/21 History Apixaban [Eliquis] 5 mg PO BID@0900,209902/27/21 02/27/21 History Atorvastatin Calcium [Lipitor] 40 mg PO HS@209902/27/21 02/27/21 History Budesonide/Formoterol Fumarate 2 puff INHALATION RT-BID@00,209902/27/21 02/27/21 History [Symbicort 160-4.5 Mcg Inhaler] Ipratropium-Albuterol Nebulize 3 ml INHALATION RT-QID@00,06,12,18 02/27/21 02/27/21 History [Duoneb 0.5 mg-3 mg/3 ml Soln] Montelukast [Singulair] 10 mg PO HS@209902/27/21 02/27/21 History amLODIPine [Norvasc] 5 mg PO DAILY@0900 02/27/21 02/27/21 History Allergies Allergy/AdvReac Type Severity Reaction Status Date / Time naproxen [From Naprosyn] Allergy Anaphylaxis Verified 02/27/21 17:45 Sulfa (Sulfonamide Allergy Anaphylaxis Verified 02/27/21 17:45 Antibiotics) azithromycin [From Zithromax] AdvReac does not Verified 02/27/21 17:45 take due to A-Fib Physical Exam Vitals: Vital Signs Temp Pulse Pulse Resp BP BP Pulse Ox 02/28/21 08:00 98.5 F 83 18 96/57 95 02/28/21 01:28 98.5 F 82 17 139/54 96 02/27/21 20:55 97.7 F 79 15 113/66 93 L 02/27/21 20:17 99.3 F 108 H 18 127/59 95 02/27/21 20:00 15 02/27/21 19:21 99.3 F 108 H 18 127/59 95 02/27/21 18:14 20 02/27/21 18:07 101.5 F H 84 20 131/53 93 L 02/27/21 17:06 101.6 F H 80 20 93 L 02/27/21 16:10 100.0 F H 82 20 107/95 95 Intake and Output 02/27/21 02/28/21 02/28/21 22:59 06:59 14:59 Other: Voiding Method Toilet Bedside Commode Bedpan # Voids 2 Weight 90.718 kg GENERAL DESCRIPTION: Middle-aged female lying in bed, no distress. No tachypnea or accessory muscle of respiration use. HEENT: Shows Pallor , no scleral icterus. Oral mucous membrane is dry. No pharyngeal erythema or thrush NECK: Trachea central, no thyromegaly. LUNGS: Unlabored breathing. Coarse breath sounds bilaterally. HEART: S1, S2, regular rate and rhythm. No loud murmur ABDOMEN: Soft, no tenderness , guarding or rigidity, no organomegaly EXTREMITIES: No edema of feet. SKIN: No rash, no masses palpable. NEUROLOGICAL: The patient is awake, alert, oriented x3, mood and affect normal. Results CBC & Chem 7: 02/27/21 16:52 02/27/21 16:52 Labs: Abnormal Lab Results - Last 24 Hours (Table) 02/27/21 02/27/21 02/27/21 Range/Units 16:52 16:52 16:52 RBC 3.64 L (3.80-5.40) m/uL Hgb 10.0 L D (11.4-16.0) gm/dL Hct 30.8 L (34.0-46.0) % RDW 17.7 H (11.5-15.5) % Plt Count 147 L D (150-450) k/uL Lymphocytes # 0.5 L (1.0-4.8) k/uL Sodium 133 L (137-145) mmol/L Creatinine 0.48 L (0.52-1.04) mg/dL Glucose 106 H (74-99) mg/dL Calcium 8.2 L (8.4-10.2) mg/dL ALT 51 H (4-34) U/L Lactate Dehydrogenase 876 H (313-618) U/L C-Reactive Protein 25.8 H (<1.0) mg/dL Total Protein 5.1 L (6.3-8.2) g/dL Albumin 2.6 L (3.5-5.0) g/dL Procalcitonin 0.29 H (0.02-0.09) ng/mL SARS-CoV-2 (PCR) (Not Detectd) 05/05/21 Range/Units 18:45 RBC (3.80-5.40) m/uL Hgb (11.4-16.0) gm/dL Hct (34.0-46.0) % RDW (11.5-15.5) % Plt Count (150-450) k/uL Lymphocytes # (1.0-4.8) k/uL Sodium (137-145) mmol/L Creatinine (0.52-1.04) mg/dL Glucose (74-99) mg/dL Calcium (8.4-10.2) mg/dL ALT (4-34) U/L Lactate Dehydrogenase (313-618) U/L C-Reactive Protein (<1.0) mg/dL Total Protein (6.3-8.2) g/dL Albumin (3.5-5.0) g/dL Procalcitonin (0.02-0.09) ng/mL SARS-CoV-2 (PCR) Detected A (Not Detectd) Assessment and Plan Assessment: -patient presenting to the hospital with a increasing shortness of breath she did have a cough with productive sputum did have a fever this patient was recently treated for COVID-19 infection now with concern for possible secondary bacterial pneumonia did have mild elevated procalcitonin and no other obvious focus of infection (1) Pneumonia Current Visit: No Status: Acute Code(s): J18.9 - PNEUMONIA, UNSPECIFIED ORGANISM SNOMED Code(s): 027199912 Plan: 1-sputum for Gram stain and culture 2-CT of the chest has been ordered we will follow results 3-Rocephin 2 g daily and vancomycin pharmacy to dose to continue while waiting for the culture to finalize We will follow on clinical condition and cultures to further adjust medication if needed Thank you for this consultation we will follow the patient along with you
[2021-03-01] MEDS: ALBUTEROL HFA INHALER INHALATION SCH ×4 (08:35→20:44)
[2021-03-01] MEDS: SYMBICORT 160-4.5 MCG INHALER INHALATION SCH ×2 (08:36→20:44)
[2021-03-01] MEDS: AMIODARONE 200 MG TAB PO SCH ×2 (09:35→21:44)
[2021-03-01] MEDS: APIXABAN 5 MG TAB PO SCH ×2 (09:35→21:44)
[2021-03-01] MEDS: FAMOTIDINE 20 MG TAB PO SCH ×2 (09:35→16:03)
[2021-03-01 11:36] LABS: HCT 26.9 % (37.2-46.3); HGB 8.5 g/dL (12.0-15.0); MCH 27.7 pg (27.0-32.0); MCHC 31.6 g/dL (32.0-37.0); MCV 87.6 fL (80.0-97.0); Mean Platelet Volume 9.6 fL (9.5-12.2); Platelet Count 203 X 10*3/uL (140-440); RBC 3.07 X 10*6/uL (4.10-5.20); RDW 18.5 % (11.5-14.5); WBC 6.58 X 10*3/uL (4.50-10.00)
[2021-03-01 12:00] LABS: African American GFR (CKD) 128.5 (60.0-200.0); Anion Gap 5.8 mmol/L (4.00-12.00); BUN/Creat Ratio 22.5 Ratio (12.00-20.00); Calcium 7.5 mg/dL (8.7-10.3); Carbon Dioxide 29.2 mmol/L (21.6-31.8); Non-African American GFR(CKD) 110.8 (60.0-200.0); Potassium 3.4 mmol/L (3.5-5.5)
[2021-03-01] MEDS ORDERED: Potassium Replacement Protocol 1 EACH MISC MISCELLANE PRN (12:21)
[2021-03-01] MEDS: SODIUM CHLORIDE 0.9% 1,000 ML IV SCH (12:24)
--- NOTE | 2021-03-01 12:32 | P.PN ---
Subjective Patient is a 65-year-old female was discharged from the hospital recently on 13 of February after about 15 days of hospitalization for Covid 19. Patient appears to have been discharged on 2 L of oxygen patient is wasn't in folds of arms and patient was sent to back here from [facility] as she is hypoxic into saturations of around 60%. Patient had high-grade fevers as well. Patient was complaining of cough. Patient denied any nausea vomiting. Patient chest x-ray showing improving infiltrates. Blood cultures, urine cultures urine analysis will be obtained sputum cultures will be obtain. There is a concern for second tobacco pneumonia because of which I'll start have the patient on vancomycin and Rocephin and the pulmonary and infectious disease will be consulted. She will not be started on any systemic steroids although has mild obese patient will be started on inhaled steroids patient probably will not benefit from any systemic steroids at this point of time. 03/01/[address] of the chest which showed a significant infiltrate but there is no lobar infiltrate pulmonology valid the patient and I do not believe patient had bacterial superinfection.. Patient's fevers resolved although patient is on antibiotics we will continue to wait for the sputum cultures. Patient is presently on 2 L of oxygen. Patient has significant wheezing COPD may be the reason why patient had a hypoxic respiratory failure, will continue the inhaled steroids. Constitutional: Denied any fatigue denied any fever. Cardio vascular: denied any chest pain, palpitations Gastrointestinal denied any nausea vomiting Pulmonary: As mentioned in HPI Neurologic denied any new focal deficits All inpatient medications were reviewed and appropriate changes in these medications as dictated in the interval history and assessment and plan. Objective - Vital Signs Vital signs: Vital Signs Temp 98.3 F 03/01/21 05:26 Pulse 83 03/01/21 05:26 Resp 15 03/01/21 08:00 BP 136/61 03/01/21 05:26 Pulse Ox 94 L 03/01/21 05:26 Intake & Output 02/28/21 03/01/21 03/01/21 18:59 06:59 18:59 Other: Voiding Method Bedside Commode Bedpan # Voids 2 - Exam PHYSICAL EXAMINATION: GENERAL: The patient is alert and oriented x3, not in any acute distress. Well developed, well nourished. HEENT: Pupils are round and equally reacting to light. EOMI. No scleral icterus. No conjunctival pallor. Normocephalic, atraumatic. No pharyngeal erythema. No thyromegaly. CARDIOVASCULAR: S1 and S2 present. No murmurs, rubs, or gallops. PULMONARY: Significant expiratory wheezing on exam. ABDOMEN: Soft, nontender, nondistended, normoactive bowel sounds. No palpable organomegaly. MUSCULOSKELETAL: No joint swelling or deformity. EXTREMITIES: No cyanosis, clubbing, or pedal edema. NEUROLOGICAL: Gross neurological examination did not reveal any focal deficits. SKIN: No rashes. - Labs CBC & Chem 7: 03/01/21 06:46 03/01/21 06:46 Labs: Abnormal Lab Results - Last 24 Hours (Table) 02/27/21 03/01/21 03/01/21 Range/Units 16:52 06:46 06:46 RBC 3.07 L (4.10-5.20) X 10*6/uL Hgb 8.5 L (12.0-15.0) g/dL Hct 26.9 L (37.2-46.3) % MCHC 31.6 L (32.0-37.0) g/dL RDW 18.5 H (11.5-14.5) % Potassium 3.4 L (3.5-5.5) mmol/L Creatinine 0.4 L (0.6-1.5) mg/dL BUN/Creatinine Ratio 22.50 H (12.00-20.00) Ratio Calcium 7.5 L (8.7-10.3) mg/dL Ferritin 1122.0 H (10.0-291.0) ng/mL Microbiology - Last 24 Hours (Table) 02/28/21 08:21 Blood Culture - Preliminary Blood No Growth after 24 hours 02/28/21 08:15 Blood Culture - Preliminary Blood No Growth after 24 hours 02/28/21 20:28 Gram Stain - Preliminary Sputum Sputum Culture - Preliminary Assessment and Plan Plan: -Acute on chronic hypoxic respiratory failure: Patient was recently treated for Covid 19 patient is on vancomycin pharmacy dose, Rocephin for possible secondary bacterial pneumonia.. Pulmonary and infectious disease evaluated the patient. Patient was started on inhaled steroids continue with inhalational treatments. had had Aspergillus species in the sputum cultures during her previous hospitalization CT did not show any cavitary lesions he did patient's fevers resolved at this time patient has significant wheezing probably COPD exacerbation we'll continue to hold off on systemic steroids will continue with inhaled steroids. Patient doesn't have any significant improvement in wheezing by tomorrow patient will be started on oral steroids at the time -Mildly elevated liver enzymes which appears to be trend down from her previous hospitalization. -Atrial fibrillation with history of stroke on Eliquis which will be continued -Coronary artery disease -COPD without any acute exacerbation -chronic hypoxic and hypercapnic respiratory failure probably because of COPD, patient does have COPD exacerbation. -Gastroesophageal reflux disease -Hyperlipidemia -Chronic low back pain. -GI prophylaxis with Pepcid
[2021-03-01 13:00] VITALS: BMI 31.3
[2021-03-01] MEDS: POTASSIUM CHLORIDE ER 20 MEQ TAB.ER PO SCH ×2 (13:00→16:04)
[2021-03-01] MEDS ORDERED: ONDANSETRON 4 MG/2 ML VIAL IVP PRN (13:01)
[2021-03-01] MEDS: methylPREDNISolone SOD SUCCI 125 MG/2 ML VIAL IV SCH ×3 (16:03→22:58)
--- NOTE | 2021-03-01 16:29 | P.PN ---
Subjective Progress Note Date: 03/01/21 Principal diagnosis: Dyspnea, acute on chronic hypoxic respiratory failure 65-year-old female patient, sent over again from [facility] on the banda where she was recuperating from her COVID-19 related pneumonia/infection. The patient was sent back to the emergency as there was some reported worsening shortness of breath and hypoxemia. At the [facility], the patient was utilizing oxygen at 2 L per minute nasal cannula and she had to be placed on dual 4 L along with the shortness of breath and for that reason she was sent in the hospital for further evaluation. The patient is reporting weakness pH she declines having any major recovery at the [facility]. She still having some shortness of breath. She has a congested cough and also that his sputum production. He is in the hospital, the patient was found to her white cell count of 7.3 with a hemoglobin of 10 and a platelet 147. The electrodes are normal. Renal function was normal. LFTs were normal. Focused on level was 0.29. Urinalysis was essentially negative balance of +1 glucose. She was still positive for COVID- 19. Sodium level was 133. Chest x-ray was done and it showed patchy pulmonary opacities and infiltrates bilaterally consistent with COVID-19 related pneumonia with infiltrates probably stable compared to the previous x-ray from 02/11/2021. There may be some interval improvement upon detailed comparison.. Inflammatory markers showed a CRP of 25, LDH was 876 and the liver functions were essentially within normal limits. On March 01, 2021 patient seen in follow-up on medical surgical floor. She is more dyspneic on today's exam, bronchospastic, she feels nauseous. SHe is on 3 L of oxygen pulse ox 90%, she is afebrile, hemodynamically she is stable, not bringing up much in the way of sputum. CT chest shows extensive patchy predominantly interstitial pulmonary infiltrates increased compared to most recent CT scan, with an area of patchy atelectasis in both lungs, which is like ly related to inflammatory disease. And there is slight enlargement of the pretracheal lymph nodes compared to old exam. Patient is on inhalers he is on empiric antibiotics in the form of Rocephin, she is on oral anticoagulation in the form of Eliquis. She remains on empiric antibiotics in the form of Rocephin and vancomycin, and sputum cultures have been sent and remain negative thus far. Objective - Vital Signs Vital signs: Vital Signs Temp 98.2 F 03/01/21 14:56 Pulse 84 03/01/21 14:56 Resp 18 03/01/21 14:56 BP 116/67 03/01/21 14:56 Pulse Ox 90 L 03/01/21 14:56 Intake & Output 02/28/21 03/01/21 03/01/21 18:59 06:59 18:59 Weight 90.718 kg Other: Voiding Method Bedside Commode Bedpan # Voids 2 - Exam GENERAL EXAM: Alert, very pleasant 65-year-old white female, on 3 L of oxygen with a pulse ox of 90% comfortable in no apparent distress. HEAD: Normocephalic/atraumatic. EYES: Normal reaction of pupils, equal size. Conjunctiva pink, sclera white. NOSE: Clear with pink turbinates. THROAT: No erythema or exudates. NECK: No masses, no JVD, no thyroid enlargement, no adenopathy. CHEST: No chest wall deformity. Symmetrical expansion. LUNGS: Equal air entry with diffuse wheezes throughout the lung coles CVS: Regular rate and rhythm, normal S1 and S2, no gallops, no murmurs, no rubs ABDOMEN: Soft, nontender. No hepatosplenomegaly, normal bowel sounds, no guarding or rigidity. EXTREMITIES: No clubbing, no edema, no cyanosis, 2+ pulses and upper and lower extremities. MUSCULOSKELETAL: Muscle strength and tone normal. SPINE: No scoliosis or deformity SKIN: No rashes CENTRAL NERVOUS SYSTEM: Alert and oriented -3. No focal deficits, tone is normal in all 4 extremities. PSYCHIATRIC: Alert and oriented -3. Appropriate affect. Intact judgment and insight. - Labs CBC & Chem 7: 03/01/21 06:46 03/01/21 06:46 Labs: Abnormal Lab Results - Last 24 Hours (Table) 02/27/21 03/01/21 03/01/21 Range/Units 16:52 06:46 06:46 RBC 3.07 L (4.10-5.20) X 10*6/uL Hgb 8.5 L (12.0-15.0) g/dL Hct 26.9 L (37.2-46.3) % MCHC 31.6 L (32.0-37.0) g/dL RDW 18.5 H (11.5-14.5) % Potassium 3.4 L (3.5-5.5) mmol/L Creatinine 0.4 L (0.6-1.5) mg/dL BUN/Creatinine Ratio 22.50 H (12.00-20.00) Ratio Calcium 7.5 L (8.7-10.3) mg/dL Ferritin 1122.0 H (10.0-291.0) ng/mL Microbiology - Last 24 Hours (Table) 02/28/21 08:21 Blood Culture - Preliminary Blood No Growth after 24 hours 02/28/21 08:15 Blood Culture - Preliminary Blood No Growth after 24 hours 02/28/21 20:28 Gram Stain - Preliminary Sputum Sputum Culture - Preliminary Assessment and Plan Plan: Assessment: 1 COVID-19 related pneumonia with hypoxic respiratory failure, subacute. The patient was originally diagnosed on 01/30/2021. She was discharged to [facility] on 02/13/2021 after being treated for coronary 19 related pneumonia. She was discharged on oxygen at 2 L per minute nasal cannula. She was readmitted for worsening shortness of breath. Her rehabilitation [facility] has been quite limited. Chest x-ray showing some interval improvement in the pulmonary infiltrates associated with COVID-19 pneumonia. No other exacerbating or decompensating fact identified on today's evaluation. Superinfection with pneumonia is felt to be less likely. No signs of any decompensated heart failure. 2 COPD with chronic hypoxic respiratory failure, last hospital stay. Exacerbation was back in December 2020. 3 chronic atrial fibrillation 4 hypertension 5 hyperlipidemia 6 history of CVA 7 coronary artery disease with previous [place] 8 chronic hypoxic respiratory failure 9 history of MA[employer]MENT aneurysm post clipping back in 2000 10 acute exacerbation of COPD Plan: Continue antibiotics Continue inhalers breathing treatments We will add IV Solu-Medrol Continue oral anticoagulation We'll continue to follow I performed a history & physical examination of the patient and discussed their management with my nurse practitioner, Darcy Mccartney. I reviewed the nurse practitioner's note and agree with the documented findings and plan of care. Lung sounds are positive for diffuse wheezes throughout the lung coles. The findings and the impression was discussed with the patient. I attest to the documentation by the nurse practitioner. Time with Patient: Less than 30
--- NOTE | 2021-03-01 16:31 | PN ---
PROGRESS NOTE DATE OF SERVICE: 03/01/2021 REASON FOR FOLLOWUP: Pneumonia. INTERVAL HISTORY: The patient is currently afebrile. The patient is breathing slightly comfortably. Still complaining of shortness of breath on minimal exertion. She also has a cough and bringing up some sputum. No nausea, no vomiting. No abdominal pain or diarrhea. PHYSICAL EXAMINATION: Blood pressure 115/67, pulse of 84, temperature 98.2. She is 90% on 3 L nasal cannula. General description is a middle-aged female lying in bed in no distress. Respiratory system: Unlabored breathing, decreased intensity of breath sounds. No wheeze. Heart: S1, S2. Regular rate and rhythm. Abdomen soft. No tenderness. LABS: Hemoglobin is 8.5, white count 6.5, and BUN of 9, creatinine 0.4. Urine is negative. Sputum currently pending. Blood culture so far negative. DIAGNOSTIC IMPRESSION AND PLAN: Patient admitted to the hospital with a fever, hypoxemia. Concern for possible pneumonia. Did not show any consolidation on the x-ray. However, the patient has responded to the vancomycin and Zosyn to continue while waiting for the sputum culture to finalize and monitor clinical course closely. Discussed with the admitting physician. MMODL / IJN: [id number] /
[2021-03-01] MEDS: ATORVASTATIN 40 MG TAB PO SCH (21:44)
[2021-03-01] MEDS: MONTELUKAST 10 MG TAB PO SCH (21:44)
[2021-03-01 21:52] LABS: Glucose,Whole Blood 200 mg/dL (75-99)
[2021-03-02] MEDS: VANCOMYCIN 1,500 MG in SODIUM CHLORIDE 0.9% 250 ML IVPB SCH ×3 (01:27→16:19)
[2021-03-02] MEDS: ACETAMINOPHEN TAB 325 MG TAB PO SCH (05:40)
[2021-03-02] MEDS: methylPREDNISolone SOD SUCCI 125 MG/2 ML VIAL IV SCH ×2 (05:42→11:29)
[2021-03-02] MEDS: AMIODARONE 200 MG TAB PO SCH ×2 (07:41→21:40)
[2021-03-02] MEDS: APIXABAN 5 MG TAB PO SCH ×2 (07:41→21:40)
[2021-03-02] MEDS: FAMOTIDINE 20 MG TAB PO SCH ×2 (07:42→16:19)
[2021-03-02] MEDS: SYMBICORT 160-4.5 MCG INHALER INHALATION SCH ×2 (08:41→19:51)
[2021-03-02] MEDS: ALBUTEROL HFA INHALER INHALATION SCH ×4 (08:41→19:51)
[2021-03-02 11:36] LABS: Glucose,Whole Blood 158 mg/dL (75-99)
[2021-03-02 12:32] LABS: African American GFR (CKD) 128.5 (60.0-200.0); Albumin 2.7 g/dL (3.80-4.90); Albumin/Globulin Ratio 1.5 (1.60-3.17); Anion Gap 9.2 mmol/L (4.00-12.00); BUN/Creat Ratio 27.5 Ratio (12.00-20.00); Calcium 7.8 mg/dL (8.7-10.3); Carbon Dioxide 28.8 mmol/L (21.6-31.8); Globulin 1.8 g/dL (1.6-3.3); Non-African American GFR(CKD) 110.8 (60.0-200.0); Potassium 4.1 mmol/L (3.5-5.5); Total Bilirubin 0.3 mg/dL (0.2-1.2); Total Protein 4.5 g/dL (6.2-8.2)
--- NOTE | 2021-03-02 13:14 | P.PN ---
Subjective Progress Note Date: 03/02/21 Principal diagnosis: Acute on chronic hypoxic respiratory failure 65-year-old female patient, sent over again from [facility] on the banda where she was recuperating from her COVID-19 related pneumonia/infection. The patient was sent back to the emergency as there was some reported worsening shortness of breath and hypoxemia. At the group home, the patient was utilizing oxygen at 2 L per minute nasal cannula and she had to be placed on dual 4 L along with the shortness of breath and for that reason she was sent in the hospital for further evaluation. The patient is reporting weakness pH she declines having any major recovery at the group home. She still having some shortness of breath. She has a congested cough and also that his sputum production. He is in the [facility], the patient was found to her white cell count of 7.3 with a hemoglobin of 10 and a platelet 147. The electrodes are normal. Renal function was normal. LFTs were normal. Focused on level was 0.29. Urinalysis was essentially negative balance of +1 glucose. She was still positive for COVID- 19. Sodium level was 133. Chest x-ray was done and it showed patchy pulmonary opacities and infiltrates bilaterally consistent with COVID-19 related pneumonia with infiltrates probably stable compared to the previous x-ray from 02/11/2021. There may be some interval improvement upon detailed comparison.. Inflammatory markers showed a CRP of 25, LDH was 876 and the liver functions were essentially within normal limits. On March 01, 2021 patient seen in follow-up on medical surgical floor. She is more dyspneic on today's exam, bronchospastic, she feels nauseous. SHe is on 3 L of oxygen pulse ox 90%, she is afebrile, hemodynamically she is stable, not bringing up much in the way of sputum. CT chest shows extensive patchy predominantly interstitial pulmonary infiltrates increased compared to most recent CT scan, with an area of patchy atelectasis in both lungs, which is likely related to inflammatory disease. And there is slight enlargement of the pretracheal lymph nodes compared to old exam. Patient is on inhalers he is on empiric antibiotics in the form of Rocephin, she is on oral anticoagulation in the form of Eliquis. She remains on empiric antibiotics in the form of Rocephin and vancomycin, and sputum cultures have been sent and remain negative thus far. The patient is seen today 03/02/2021 follow-up on the regular medical floor. She is currently sitting up in bed. Awake and alert in no acute distress. Breathing easier today compared to yesterday. Maintaining good O2 saturations in the low 90s on 3 L/m per nasal cannula. She's afebrile. Hemodynamically st able. Blood cultures reveal no growth. Sputum culture pending. Sodium 141. Potassium 4.1. Creatinine 0.4. Glucose 135. She is continued on Symbicort, albuterol, anticoagulated with Eliquis. Antibiotics in the form of ceftriaxone and vancomycin. Remains on IV Solu-Medrol. Objective - Vital Signs Vital signs: Vital Signs Temp 97.6 F 03/02/21 10:00 Pulse 78 03/02/21 10:00 Resp 19 03/02/21 10:00 BP 138/65 03/02/21 10:00 Pulse Ox 91 L 03/02/21 10:00 Intake & Output 03/01/21 03/02/21 03/02/21 18:59 06:59 18:59 Weight 90.718 kg Other: Voiding Method Bedside Commode Bedside Commode Bedpan Bedpan # Voids 4 1 - Exam GENERAL EXAM: Alert, very pleasant 65-year-old female patient, on 3 L of oxygen with a pulse ox of 91% comfortable in no apparent distress. HEAD: Normocephalic/atraumatic. EYES: Normal reaction of pupils, equal size. Conjunctiva pink, sclera white. NOSE: Clear with pink turbinates. THROAT: No erythema or exudates. NECK: No masses, no JVD, no thyroid enlargement, no adenopathy. CHEST: No chest wall deformity. Symmetrical expansion. LUNGS: Equal air entry with bilateral end expiratory wheezing CVS: Regular rate and rhythm, normal S1 and S2, no gallops, no murmurs, no rubs ABDOMEN: Soft, nontender. No hepatosplenomegaly, normal bowel sounds, no guarding or rigidity. EXTREMITIES: No clubbing, no edema, no cyanosis, 2+ pulses and upper and lower extremities. MUSCULOSKELETAL: Muscle strength and tone normal. SPINE: No scoliosis or deformity SKIN: No rashes CENTRAL NERVOUS SYSTEM: Alert and oriented -3. No focal deficits, tone is normal in all 4 extremities. PSYCHIATRIC: Alert and oriented -3. Appropriate affect. Intact judgment and insight. - Labs CBC & Chem 7: 03/01/21 06:46 03/02/21 06:37 Labs: Abnormal Lab Results - Last 24 Hours (Table) 03/01/21 03/02/21 03/02/21 Range/Units 21:49 06:37 11:35 Creatinine 0.4 L (0.6-1.5) mg/dL BUN/Creatinine Ratio 27.50 H (12.00-20.00) Ratio Glucose 135 H (70-110) mg/dL POC Glucose (mg/dL) 200 H 158 H (75-99) mg/dL Calcium 7.8 L (8.7-10.3) mg/dL Total Protein 4.5 L (6.2-8.2) g/dL Albumin 2.70 L (3.80-4.90) g/dL Albumin/Globulin Ratio 1.50 L (1.60-3.17) g/dL Microbiology - Last 24 Hours (Table) 02/28/21 08:21 Blood Culture - Preliminary Blood No Growth after 48 hours 02/28/21 08:15 Blood Culture - Preliminary Blood No Growth after 48 hours Assessment and Plan Assessment: 1 COVID-19 related pneumonia with hypoxic respiratory failure, subacute. The patient was originally diagnosed on 01/30/2021. She was discharged to group home on 02/13/2021 after being treated for coronary 19 related pneumonia. She was discharged on oxygen at 2 L per minute nasal cannula. She was readmitted for worsening shortness of breath. 2 COPD with chronic hypoxic respiratory failure, last hospital stay. Exacerbation was back in December 2020. 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 Artis Currently stable from the pulmonary standpoint Awaiting final cultures Continue the current treatment plan for now Titrate the FiO2 as tolerated We will continue to follow
--- NOTE | 2021-03-02 14:19 | P.PN ---
Subjective Patient is a 65-year-old female was discharged from the hospital recently on 13 of February after about 15 days of hospitalization for Covid 19. Patient appears to have been discharged on 2 L of oxygen patient is wasn't in folds of arms and patient was sent to back here from [facility] as she is hypoxic into saturations of around 60%. Patient had high-grade fevers as well. Patient was complaining of cough. Patient denied any nausea vomiting. Patient chest x-ray showing improving infiltrates. Blood cultures, urine cultures urine analysis will be obtained sputum cultures will be obtain. There is a concern for second tobacco pneumonia because of which I'll start have the patient on vancomycin and Rocephin and the pulmonary and infectious disease will be consulted. She will not be started on any systemic steroids although has mild obese patient will be started on inhaled steroids patient probably will not benefit from any systemic steroids at this point of time. 03/01/[address] of the chest which showed a significant infiltrate but there is no lobar infiltrate pulmonology valid the patient and I do not believe patient had bacterial superinfection.. Patient's fevers resolved although patient is on antibiotics we will continue to wait for the sputum cultures. Patient is presently on 2 L of oxygen. Patient has significant wheezing COPD may be the reason why patient had a hypoxic respiratory failure, will continue the inhaled steroids. 03/02/2021 Patient is feeling much better patient is at her baseline still has some expiratory wheezing. Patient wanted to be discharged today but the infectious disease is getting and sputum cultures. Patient has significant improvement in the chest x-ray findings Constitutional: Denied any fatigue denied any fever. Cardio vascular: denied any chest pain, palpitations Gastrointestinal denied any nausea vomiting Pulmonary: As mentioned in HPI Neurologic denied any new focal deficits All inpatient medications were reviewed and appropriate changes in these medications as dictated in the interval history and assessment and plan. Objective - Vital Signs Vital signs: Vital Signs Temp 97.6 F 03/02/21 10:00 Pulse 78 03/02/21 10:00 Resp 19 03/02/21 10:00 BP 138/65 03/02/21 10:00 Pulse Ox 91 L 03/02/21 10:00 Intake & Output 03/01/21 03/02/21 03/02/21 18:59 06:59 18:59 Weight 90.718 kg Other: Voiding Method Bedside Commode Bedside Commode Bedpan Bedpan # Voids 4 1 - Exam PHYSICAL EXAMINATION: GENERAL: The patient is alert and oriented x3, not in any acute distress. Well developed, well nourished. HEENT: Pupils are round and equally reacting to light. EOMI. No scleral icterus. No conjunctival pallor. Normocephalic, atraumatic. No pharyngeal erythema. No thyromegaly. CARDIOVASCULAR: S1 and S2 present. No murmurs, rubs, or gallops. PULMONARY: Significant expiratory wheezing on exam. ABDOMEN: Soft, nontender, nondistended, normoactive bowel sounds. No palpable organomegaly. MUSCULOSKELETAL: No joint swelling or deformity. EXTREMITIES: No cyanosis, clubbing, or pedal edema. NEUROLOGICAL: Gross neurological examination did not reveal any focal deficits. SKIN: No rashes. - Labs CBC & Chem 7: 03/01/21 06:46 03/02/21 06:37 Labs: Abnormal Lab Results - Last 24 Hours (Table) 03/01/21 03/02/21 03/02/21 Range/Units 21:49 06:37 11:35 Creatinine 0.4 L (0.6-1.5) mg/dL BUN/Creatinine Ratio 27.50 H (12.00-20.00) Ratio Glucose 135 H (70-110) mg/dL POC Glucose (mg/dL) 200 H 158 H (75-99) mg/dL Calcium 7.8 L (8.7-10.3) mg/dL Total Protein 4.5 L (6.2-8.2) g/dL Albumin 2.70 L (3.80-4.90) g/dL Albumin/Globulin Ratio 1.50 L (1.60-3.17) g/dL Microbiology - Last 24 Hours (Table) 02/28/21 08:21 Blood Culture - Preliminary Blood No Growth after 48 hours 02/28/21 08:15 Blood Culture - Preliminary Blood No Growth after 48 hours Assessment and Plan Plan: -Acute on chronic hypoxic respiratory failure: Patient was recently treated for Covid 19 patient is on vancomycin pharmacy dose, Rocephin for possible secondary bacterial pneumonia.. Pulmonary and infectious disease evaluated the patient. Patient was started on inhaled steroids continue with inhalational treatments. had had Aspergillus species in the sputum cultures during her previous hospitalization CT did not show any cavitary lesions he did patient's fevers resolved at this time patient has significant wheezing probably COPD exacerbation we'll continue to hold off on systemic steroids will continue with inhaled steroids. Patient doesn't have any significant improvement in wheezing by tomorrow patient will be started on oral steroids at the time -Mildly elevated liver enzymes which appears to be trend down from her previous hospitalization. -Atrial fibrillation with history of stroke on Eliquis which will be continued -Coronary artery disease -COPD without any acute exacerbation -chronic hypoxic and hypercapnic respiratory failure probably because of COPD, patient does have COPD exacerbation. -Gastroesophageal reflux disease -Hyperlipidemia -Chronic low back pain. -GI prophylaxis with Pepcid
[2021-03-02] MEDS ORDERED: VANCOMYCIN TROUGH DUE 1 EACH MISC MISCELLANE ONE (16:00)
[2021-03-02] MEDS: methylPREDNISolone SOD SUCCI 40 MG/ML 1 ML VIAL IV SCH (21:40)
[2021-03-02] MEDS: MONTELUKAST 10 MG TAB PO SCH (21:40)
[2021-03-02] MEDS: ATORVASTATIN 40 MG TAB PO SCH (21:40)
[2021-03-02] MEDS: ACETAMINOPHEN TAB 325 MG TAB PO PRN (21:47)
--- NOTE | 2021-03-02 22:01 | PN ---
PROGRESS NOTE DATE OF SERVICE: 03/02/2021 REASON FOR FOLLOWUP: Pneumonia. INTERVAL HISTORY: The patient is currently afebrile. The patient mentioned she is feeling better. Breathing comfortably. Patient denies having any chest pain. No shortness of breath. Cough has decreased in intensity, still bringing up some sputum. No nausea, no vomiting. No abdominal pain. No diarrhea. PHYSICAL EXAMINATION: Blood pressure 125/70 with a pulse of 76, temperature 97.6. She is 90% on 2 L nasal cannula. General description is a middle-aged female lying in bed in no distress. Respiratory system: Unlabored breathing, decreased intensity of breath sounds. No wheeze. HEART: S1, S2. Regular rate and rhythm. ABDOMEN: Soft, no tenderness. LABS: BUN of 11, creatinine 0.4. Sputum pending. Blood culture so far negative. DIAGNOSTIC IMPRESSION AND PLAN: Patient admitted to the hospital with fever, shortness of breath and hypoxemia concerning for pneumonia. Patient clinically responded to vancomycin and Rocephin to continue while waiting for the sputum culture to finalize to determine her discharge antibiotics. Plan of care discussed with admitting physician. MMODL / CARIEN: [id number] /
[2021-03-03] MEDS: Acetaminophen-Codeine 300-30mg TAB PO PRN (01:04)
[2021-03-03] MEDS ORDERED: VANCOMYCIN 1,500 MG in SODIUM CHLORIDE 0.9% 250 ML IVPB SCH (06:00)
[2021-03-03] MEDS: ACETAMINOPHEN TAB 325 MG TAB PO SCH (06:12)
[2021-03-03] MEDS: ALBUTEROL HFA INHALER INHALATION SCH ×4 (08:10→19:33)
[2021-03-03] MEDS: SYMBICORT 160-4.5 MCG INHALER INHALATION SCH ×2 (08:10→19:33)
[2021-03-03] MEDS: AMIODARONE 200 MG TAB PO SCH ×2 (08:52→20:41)
[2021-03-03] MEDS: FAMOTIDINE 20 MG TAB PO SCH ×2 (08:52→17:29)
[2021-03-03] MEDS: APIXABAN 5 MG TAB PO SCH ×2 (08:52→20:41)
[2021-03-03] MEDS: ACETAMINOPHEN TAB 325 MG TAB PO PRN (08:55)
[2021-03-03] MEDS: methylPREDNISolone SOD SUCCI 40 MG/ML 1 ML VIAL IV SCH ×2 (09:42→22:45)
--- NOTE | 2021-03-03 11:16 | P.PN ---
Subjective Progress Note Date: 03/03/21 65-year-old female patient, sent over again from [facility] on the [facility] where she was recuperating from her COVID-19 related pneumonia/infection. The patient was sent back to the emergency as there was some reported worsening shortness of breath and hypoxemia. At the [facility], the patient was utilizing oxygen at 2 L per minute nasal cannula and she had to be placed on dual 4 L along with the shortness of breath and for that reason she was sent in the hospital for further evaluation. The patient is reporting weakness pH she declines having any major recovery at the [facility]. She still having some shortness of breath. She has a congested cough and also that his sputum production. He is in the hospital, the patient was found to her white cell count of 7.3 with a hemoglobin of 10 and a platelet 147. The electrodes are normal. Renal function was normal. LFTs were normal. Focused on level was 0.29. Urinalysis was essentially negative balance of +1 glucose. She was still positive for COVID- 19. Sodium level was 133. Chest x-ray was done and it showed patchy pulmonary opacities and infiltrates bilaterally consistent with COVID-19 related pneumonia with infiltrates probably stable compared to the previous x-ray from 02/11/2021. There may be some interval improvement upon detailed comparison.. Inflammatory markers showed a CRP of 25, LDH was 876 and the liver functions were essentially within normal limits. On March 01, 2021 patient seen in follow-up on medical surgical floor. She is more dyspneic on today's exam, bronchospastic, she feels nauseous. SHe is on 3 L of oxygen pulse ox 90%, she is afebrile, hemodynamically she is stable, not bringing up much in the way of sputum. CT chest shows extensive patchy predominantly interstitial pulmonary infiltrates increased compared to most recent CT scan, with an area of patchy atelectasis in both lungs, which is likel y related to inflammatory disease. And there is slight enlargement of the pretracheal lymph nodes compared to old exam. Patient is on inhalers he is on empiric antibiotics in the form of Rocephin, she is on oral anticoagulation in the form of Eliquis. She remains on empiric antibiotics in the form of Rocephin and vancomycin, and sputum cultures have been sent and remain negative thus far. The patient is seen today 03/02/2021 follow-up on the regular medical floor. She is currently sitting up in bed. Awake and alert in no acute distress. Breathing easier today compared to yesterday. Maintaining good O2 saturations in the low 90s on 3 L/m per nasal cannula. She's afebrile. Hemodynamically stable. Blood cultures reveal no growth. Sputum culture pending. Sodium 141. Potassium 4.1. Creatinine 0.4. Glucose 135. She is continued on Symbicort, albuterol, anticoagulated with Eliquis. Antibiotics in the form of ceftriaxone and vancomycin. Remains on IV Solu-Medrol. 9 2020, patient is being seen for a follow-up. She is currently on oxygen at 4 L with a pulse ox of 94%. Obviously she is afebrile. As mentioned earlier, her COVID-19 pulmonary infiltrates as noted on the CAT scan of the chest with improving. The patient was hospitalized because of worsening shortness of breath. She went home and she came back for some ongoing respiratory difficulties. Chest x-ray showed patchy pulmonary infiltrates consistent with COVID-19 related pneumonia. The CAT scan was improving and comparison. She was placed on empiric antibiotics. ID is on the case. Pneumonia on top of her COVID-19 is felt to be doubtful. Sputum Gram stain cultures been negative. Blood cultures been negative. Her white cell count is at 6.8. Pro-calcitonin level was at 0.29. No other issues for now. Objective - Vital Signs Vital signs: Vital Signs Temp 97.7 F 03/03/21 10:00 Pulse 75 03/03/21 10:00 Resp 20 03/03/21 10:00 BP 121/56 03/03/21 10:00 Pulse Ox 94 L 03/03/21 10:00 Intake & Output 03/02/21 03/03/21 03/03/21 18:59 06:59 18:59 Intake Total 540 Balance 540 Intake: Oral 540 Other: Voiding Method Bedside Commode Bedpan Bedpan # Voids 3 3 - Exam GENERAL EXAM: Alert, very pleasant 65-year-old female patient, on 4 L of oxygen with a pulse ox of 91% comfortable in no apparent distress. HEAD: Normocephalic/atraumatic. EYES: Normal reaction of pupils, equal size. Conjunctiva pink, sclera white. NOSE: Clear with pink turbinates. THROAT: No erythema or exudates. NECK: No masses, no JVD, no thyroid enlargement, no adenopathy. CHEST: No chest wall deformity. Symmetrical expansion. LUNGS: Equal air entry with bilateral end expiratory wheezing CVS: Regular rate and rhythm, normal S1 and S2, no gallops, no murmurs, no rubs ABDOMEN: Soft, nontender. No hepatosplenomegaly, normal bowel sounds, no guarding or rigidity. EXTREMITIES: No clubbing, no edema, no cyanosis, 2+ pulses and upper and lower extremities. MUSCULOSKELETAL: Muscle strength and tone normal. SPINE: No scoliosis or deformity SKIN: No rashes CENTRAL NERVOUS SYSTEM: Alert and oriented -3. No focal deficits, tone is normal in all 4 extremities. PSYCHIATRIC: Alert and oriented -3. Appropriate affect. Intact judgment and insight. - Labs CBC & Chem 7: 03/01/21 06:46 03/02/21 06:37 Labs: Abnormal Lab Results - Last 24 Hours (Table) 03/02/21 03/02/21 Range/Units 06:37 11:35 Creatinine 0.4 L (0.6-1.5) mg/dL BUN/Creatinine Ratio 27.50 H (12.00-20.00) Ratio Glucose 135 H (70-110) mg/dL POC Glucose (mg/dL) 158 H (75-99) mg/dL Calcium 7.8 L (8.7-10.3) mg/dL Total Protein 4.5 L (6.2-8.2) g/dL Albumin 2.70 L (3.80-4.90) g/dL Albumin/Globulin Ratio 1.50 L (1.60-3.17) g/dL Microbiology - Last 24 Hours (Table) 02/28/21 08:15 Blood Culture - Preliminary Blood No Growth after 72 hours 02/28/21 08:21 Blood Culture - Preliminary Blood No Growth after 72 hours 02/28/21 20:28 Gram Stain - Final Sputum Sputum Culture - Final Assessment and Plan Plan: 1 COVID-19 related pneumonia with hypoxic respiratory failure, subacute. The patient was originally diagnosed on 01/30/2021. She was discharged to [facility] on 02/13/2021 after being treated for coronary 19 related pneumonia. She was discharged on oxygen at 2 L per minute nasal cannula. She was readmitted for worsening shortness of breath. The patient is currently on 4 L by nasal cannula 2 COPD with chronic hypoxic respiratory failure, last hospital stay. Exacerbation was back in December 2020. 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 All of the cultures are negative. Pro-calcitonin is minimally elevated. Currently stable from the pulmonary standpoint Awaiting final cultures Continue the current treatment plan for now Titrate the FiO2 as tolerated [facility]
--- NOTE | 2021-03-03 13:49 | P.PN ---
Subjective Patient is a 65-year-old female was discharged from the hospital recently on 13 of February after about 15 days of hospitalization for Covid 19. Patient appears to have been discharged on 2 L of oxygen patient is wasn't in folds of arms and patient was sent to back here from [facility] as she is hypoxic into saturations of around 60%. Patient had high-grade fevers as well. Patient was complaining of cough. Patient denied any nausea vomiting. Patient chest x-ray showing improving infiltrates. Blood cultures, urine cultures urine analysis will be obtained sputum cultures will be obtain. There is a concern for second tobacco pneumonia because of which I'll start have the patient on vancomycin and Rocephin and the pulmonary and infectious disease will be consulted. She will not be started on any systemic steroids although has mild obese patient will be started on inhaled steroids patient probably will not benefit from any systemic steroids at this point of time. 03/01/[address] of the chest which showed a significant infiltrate but there is no lobar infiltrate pulmonology valid the patient and I do not believe patient had bacterial superinfection.. Patient's fevers resolved although patient is on antibiotics we will continue to wait for the sputum cultures. Patient is presently on 2 L of oxygen. Patient has significant wheezing COPD may be the reason why patient had a hypoxic respiratory failure, will continue the inhaled steroids. 03/02/2021 Patient is feeling much better patient is at her baseline still has some expiratory wheezing. Patient wanted to be discharged today but the infectious disease is getting and sputum cultures. Patient has significant improvement in the chest x-ray findings. 03/03/2021 Patient still has minimal wheeze which appears to be her baseline. Patient is comparing of pain in the right ankle right ankle is actually swollen probably osteoarthritis patient is already on steroids I'll give her [place] for pain. Patient probably can be discharged to subacute rehabilitation tomorrow. Patient's blood cultures are negative patient probably can be discharged on Ceftin. Constitutional: Denied any fatigue denied any fever. Cardio vascular: denied any chest pain, palpitations Gastrointestinal denied any nausea vomiting Pulmonary: As mentioned in HPI Neurologic denied any new focal deficits All inpatient medications were reviewed and appropriate changes in these medications as dictated in the interval history and assessment and plan. Objective - Vital Signs Vital signs: Vital Signs Temp 97.7 F 03/03/21 10:00 Pulse 75 03/03/21 10:00 Resp 20 03/03/21 10:00 BP 121/56 03/03/21 10:00 Pulse Ox 94 L 03/03/21 10:00 Intake & Output 03/02/21 03/03/21 03/03/21 18:59 06:59 18:59 Intake Total 540 Balance 540 Intake: Oral 540 Other: Voiding Method Bedside Commode Bedpan Bedpan # Voids 3 3 - Exam PHYSICAL EXAMINATION: GENERAL: The patient is alert and oriented x3, not in any acute distress. Well developed, well nourished. HEENT: Pupils are round and equally reacting to light. EOMI. No scleral icterus. No conjunctival pallor. Normocephalic, atraumatic. No pharyngeal erythema. No thyromegaly. CARDIOVASCULAR: S1 and S2 present. No murmurs, rubs, or gallops. PULMONARY: Mild expiratory wheezing on exam. ABDOMEN: Soft, nontender, nondistended, normoactive bowel sounds. No palpable organomegaly. MUSCULOSKELETAL: No joint swelling or deformity. EXTREMITIES: No cyanosis, clubbing, or pedal edema. NEUROLOGICAL: Gross neurological examination did not reveal any focal deficits. SKIN: No rashes. - Labs CBC & Chem 7: 03/01/21 06:46 03/02/21 06:37 Labs: Microbiology - Last 24 Hours (Table) 02/28/21 08:15 Blood Culture - Preliminary Blood No Growth after 72 hours 02/28/21 08:21 Blood Culture - Preliminary Blood No Growth after 72 hours 02/28/21 20:28 Gram Stain - Final Sputum Sputum Culture - Final Assessment and Plan Plan: -Acute on chronic hypoxic respiratory failure: Patient was recently treated for Covid 19 patient is on vancomycin pharmacy dose, Rocephin for possible secondary bacterial pneumonia.. Pulmonary and infectious disease evaluated the patient. Patient was started on inhaled steroids continue with inhalational treatments. had had Aspergillus species in the sputum cultures during her previous hospitalization CT did not show any cavitary lesions he did patient's fevers resolved at this time patient has significant wheezing probably COPD exacerbation for which patient is on IV steroids patient can be discharged tomorrow on empiric antibiotics pending cultures are negative -Transaminitis: Resolved -Right ankle pain and swelling: Secondary to possibly osteoarthritis -Atrial fibrillation with history of stroke on Eliquis which will be continued -Coronary artery disease -COPD without any acute exacerbation -chronic hypoxic and hypercapnic respiratory failure probably because of COPD, patient does have COPD exacerbation. -Gastroesophageal reflux disease -Hyperlipidemia -Chronic low back pain. -GI prophylaxis with Pepcid
--- NOTE | 2021-03-03 14:41 | XR ---
Right ankle. HISTORY: Pain. COMPARISON: None. TECHNIQUE: 3 views the right ankle were obtained. FINDINGS: There is no fracture, dislocation, intraosseous or intra-articular abnormality. The ankle mortise is intact. There is no radiopaque foreign body or abnormal soft tissue calcification. IMPRESSION: No significant abnormality seen.
[2021-03-03] MEDS: HYDROcodone/APAP 5-325MG 1 EACH TAB PO PRN ×2 (14:42→20:41)
--- NOTE | 2021-03-03 16:04 | PN ---
PROGRESS NOTE DATE OF SERVICE: 03/03/2021 REASON FOR FOLLOWUP: Pneumonia. INTERVAL HISTORY: The patient is currently afebrile. The patient is breathing more comfortably. The patient denies having any chest pain or shortness of breath. Cough with decreased intensity. No abdominal pain, no diarrhea. PHYSICAL EXAMINATION: Her blood pressure is 124/55 with a pulse of 69, temperature 98. She is 97% on 4 L nasal cannula. General description is a middle-aged female lying in bed in no distress. Respiratory system: Unlabored breathing, clear to auscultation anteriorly. Heart S1, S2. Regular rate and rhythm. Abdomen soft, no tenderness. Extremities: No edema of the feet. LABS: Vanco trough is slightly on the high side. Sputum is usual respiratory luis. Blood culture negative. DIAGNOSTIC IMPRESSION AND PLAN: Patient admitted to hospital with shortness of breath, fever, hypoxemia with evidence of pneumonia. Overall improvement on Rocephin and vancomycin with sputum negative for resistant pathogen. Vancomycin will be discontinued. Continue Rocephin. Finish therapy with short course of oral Ceftin and close outpatient followup. MMODL / IJN: [id number] /
[2021-03-03] MEDS: MONTELUKAST 10 MG TAB PO SCH (20:41)
[2021-03-03] MEDS: ATORVASTATIN 40 MG TAB PO SCH (20:41)
[2021-03-04] MEDS: ACETAMINOPHEN TAB 325 MG TAB PO SCH (05:36)
--- NOTE | 2021-03-04 08:21 | XR ---
EXAMINATION TYPE: XR chest 1V portable DATE OF EXAM: 03/04/2021 COMPARISON: Chest x-ray 02/27/2021 HISTORY: Covid pneumonia TECHNIQUE: Single frontal view of the chest is obtained. FINDINGS: Bilateral prominent interstitial changed, patchy airspace disease is again noted. No evide nt pneumothorax or pleural effusion. Cardiac mediastinal silhouette is stable. Aorta is dense. There are overlying artifacts. IMPRESSION: Correlate for pneumonia, there is underlying COPD, interstitial change
[2021-03-04] MEDS: ALBUTEROL HFA INHALER INHALATION SCH ×4 (09:01→20:20)
[2021-03-04] MEDS: SYMBICORT 160-4.5 MCG INHALER INHALATION SCH ×2 (09:01→20:20)
[2021-03-04] MEDS: HYDROcodone/APAP 5-325MG 1 EACH TAB PO PRN (09:10)
[2021-03-04] MEDS: AMIODARONE 200 MG TAB PO SCH ×2 (09:11→21:07)
[2021-03-04] MEDS: APIXABAN 5 MG TAB PO SCH ×2 (09:11→21:07)
[2021-03-04] MEDS: FAMOTIDINE 20 MG TAB PO SCH ×2 (09:11→17:07)
[2021-03-04] MEDS: methylPREDNISolone SOD SUCCI 40 MG/ML 1 ML VIAL IV SCH ×2 (09:11→21:07)
[2021-03-04] MEDS ORDERED: IBUPROFEN 200 MG TAB PO PRN (11:25)
[2021-03-04] MEDS: Acetaminophen-Codeine 300-30mg TAB PO PRN ×2 (13:58→21:14)
--- NOTE | 2021-03-04 18:41 | PN ---
PROGRESS NOTE DATE OF SERVICE: 03/04/2021 This 65-year-old woman who was admitted with acute respiratory failure secondary to COVID-19 is being closely monitored at this time. The patient's most recent chest x- ray, which was reviewed personally by me, showed acute bilateral interstitial pneumonia. The inflammatory markers are still elevated. Multiple consultants are following the patient closely at this time. The patient is on broad-spectrum IV antibiotics and IV steroids, also. Past medical history reviewed. The patient is complaining of some feeling lonesome. REVIEW OF SYSTEMS: CARDIOVASCULAR SYSTEM: No angina, palpitations. RESPIRATORY SYSTEM: As mentioned earlier. GI: As mentioned earlier. : No dysuria or retention. NERVOUS SYSTEM: No numbness, weakness. CURRENT MEDICATIONS: Reviewed. They include Tylenol, Tylenol No.3, Tatum, Ventolin, Cordarone, Eliquis, Lipitor, Symbicort, Rocephin. Doses are reviewed. PHYSICAL EXAMINATION: Patient alert and oriented x3. Pulse 71, blood pressure 132/60, respirations 16, temperature 97.8, pulse ox 96% on 3 L. HEENT: Conjunctivae normal. NECK: No jugular venous distention. CARDIOVASCULAR SYSTEM: S1, S2 muffled. RESPIRATORY SYSTEM: Breath sounds diminished at the bases. A few scattered rhonchi and crackles. ABDOMEN: Soft, non-tender. No mass palpable. LEGS: No edema. No swelling. NERVOUS SYSTEM: No focal deficit. LABS: Labs at this time show WBC 6.58, hemoglobin 8.5, potassium 3.4. Other labs are reviewed. ASSESSMENT: 1. Acute COVID-19 pneumonia, acute bilateral interstitial pneumonia with acute hypoxic respiratory failure. 2. Chronic obstructive pulmonary disease, acute exacerbation. 3. Right ankle pain. 4. Anemia, normocytic anemia of chronic disease. 5. Elevated inflammatory markers of COVID-19. 6. Hypocalcemia. 7. Elevated procalcitonin. 8. Right ankle pain. 9. History of atrial fibrillation. 10.History of asthma. 11.History of cerebrovascular accident, transient ischemic attack. 12.History of degenerative joint disease. 13.Gait dysfunction. 14.History of brain aneurysm and clipping. 15.Chronic hypoxic respiratory failure secondary to chronic obstructive pulmonary disease, on home oxygen 2 L nasal cannula. 16.History of coronary artery disease, stent. 17.History of anxiety, depression. 18.Remote history of nicotine dependence. 19.Obesity with body mass index of 31.6. 20.FULL CODE. RECOMMENDATIONS AND DISCUSSION: I recommend to continue current medications, continue with the monitoring, symptomatic treatment. Continue with the bronchodilators. Continue with steroids and empiric antibiotics. Otherwise, continue to monitor. PT/OT evaluation. I would also recommend a serum uric acid. We will continue to monitor. We will also check for rheumatoid arthritis and rheumatoid factor and lupus markers. Prognosis guarded. Further recommendations to follow. MMODL / IJN: [id number] / MTDD
--- NOTE | 2021-03-04 18:43 | P.PN ---
Subjective Progress Note Date: 03/04/21 Principal diagnosis: Dyspnea, acute on chronic hypoxic respiratory failure 65-year-old female patient, sent over again from [facility] on the banda where she was recuperating from her COVID-19 related pneumonia/infection. The patient was sent back to the emergency as there was some reported worsening shortness of breath and hypoxemia. At the snf, the patient was utilizing oxygen at 2 L per minute nasal cannula and she had to be placed on dual 4 L along with the shortness of breath and for that reason she was sent in the hospital for further evaluation. The patient is reporting weakness pH she declines having any major recovery at the snf. She still having some shortness of breath. She has a congested cough and also that his sputum production. He is in the hospital, the patient was found to her white cell count of 7.3 with a hemoglobin of 10 and a platelet 147. The electrodes are normal. Renal function was normal. LFTs were normal. Focused on level was 0.29. Urinalysis was essentially negative balance of +1 glucose. She was still positive for COVID- 19. Sodium level was 133. Chest x-ray was done and it showed patchy pulmonary opacities and infiltrates bilaterally consistent with COVID-19 related pneumonia with infiltrates probably stable compared to the previous x-ray from 02/11/2021. There may be some interval improvement upon detailed comparison.. Inflammatory markers showed a CRP of 25, LDH was 876 and the liver functions were essentially within normal limits. On March 01, 2021 patient seen in follow-up on medical surgical floor. She is more dyspneic on today's exam, bronchospastic, she feels nauseous. SHe is on 3 L of oxygen pulse ox 90%, she is afebrile, hemodynamically she is stable, not bringing up much in the way of sputum. CT chest shows extensive patchy predominantly interstitial pulmonary infiltrates increased compared to most recent CT scan, with an area of patchy atelectasis in both lungs, which is like ly related to inflammatory disease. And there is slight enlargement of the pretracheal lymph nodes compared to old exam. Patient is on inhalers he is on empiric antibiotics in the form of Rocephin, she is on oral anticoagulation in the form of Eliquis. She remains on empiric antibiotics in the form of Rocephin and vancomycin, and sputum cultures have been sent and remain negative thus far. On 03/04/2021 patient seen in follow-up on medical surgical floor. She is currently on 3 L of oxygen, still quite wheezy and bronchospastic and her pulse oximetry 96%, she's been afebrile, hemodynamics she is been stable. Today's chest x-ray shows bilateral prominent interstitial changes, pH airspace disease, assisted with patient's recent history of COVID-19 pneumonia. Overall she is breathing easier, she continues on IV steroids currently on Solu-Medrol 40 mg every 12 hours, and she continues on Eliquis 5 mg twice daily. She is complaining of pain in her right ankle, and x-ray of the right ankle showed no significant abnormality. His labs have been reviewed, her ESR was elevated at 93, uric acid was 3.3. Patient continues on Rocephin for empiric antibiotic coverage. Sputum and blood cultures have been negative, she's been afebrile. Objective - Vital Signs Vital signs: Vital Signs Temp 97.8 F 03/04/21 15:01 Pulse 71 03/04/21 15:01 Resp 16 03/04/21 15:01 BP 132/66 03/04/21 15:01 Pulse Ox 96 03/04/21 15:01 Intake & Output 03/03/21 03/04/21 03/04/21 18:59 06:59 18:59 Weight 90.718 kg Other: Voiding Method Bedpan Bedpan # Voids 2 4 - Exam GENERAL EXAM: Alert, very pleasant 65-year-old white female, on 3 L of oxygen with a pulse ox of 96% comfortable in no apparent distress. HEAD: Normocephalic/atraumatic. EYES: Normal reaction of pupils, equal size. Conjunctiva pink, sclera white. NOSE: Clear with pink turbinates. THROAT: No erythema or exudates. NECK: No masses, no JVD, no thyroid enlargement, no adenopathy. CHEST: No chest wall deformity. Symmetrical expansion. LUNGS: Equal air entry with diffuse wheezes throughout the lung coles CVS: Regular rate and rhythm, normal S1 and S2, no gallops, no murmurs, no rubs ABDOMEN: Soft, nontender. No hepatosplenomegaly, normal bowel sounds, no guarding or rigidity. EXTREMITIES: No clubbing, no edema, no cyanosis, 2+ pulses and upper and lower extremities. MUSCULOSKELETAL: Muscle strength and tone normal. SPINE: No scoliosis or deformity SKIN: No rashes CENTRAL NERVOUS SYSTEM: Alert and oriented -3. No focal deficits, tone is normal in all 4 extremities. PSYCHIATRIC: Alert and oriented -3. Appropriate affect. Intact judgment and insight. - Labs CBC & Chem 7: 03/01/21 06:46 03/02/21 06:37 Labs: Abnormal Lab Results - Last 24 Hours (Table) 03/04/21 03/04/21 Range/Units 11:42 11:42 ESR 93 H (0-20) mm/hr Uric Acid 3.3 L (3.7-7.4) mg/dL Microbiology - Last 24 Hours (Table) 02/28/21 08:21 Blood Culture - Preliminary Blood No Growth after 96 hours 02/28/21 08:15 Blood Culture - Preliminary Blood No Growth after 96 hours Assessment and Plan Plan: Assessment: 1 COVID-19 related pneumonia with hypoxic respiratory failure, subacute. The patient was originally diagnosed on 01/30/2021. She was discharged to snf on 02/13/2021 after being treated for coronary 19 related pneumonia. She was discharged on oxygen at 2 L per minute nasal cannula. She was readmitted fo r worsening shortness of breath. Her rehabilitation snf has been quite limited. Chest x-ray showing some interval improvement in the pulmonary infiltrates associated with COVID-19 pneumonia. No other exacerbating or decompensating fact identified on today's evaluation. Superinfection with pneumonia is felt to be less likely. No signs of any decompensated heart failure. 2 COPD with chronic hypoxic respiratory failure, last hospital stay. Exacerbation was back in December 2020. 3 chronic atrial fibrillation 4 hypertension 5 hyperlipidemia 6 history of CVA 7 coronary artery disease with previous [place] 8 chronic hypoxic respiratory failure 9 history of [employer] aneurysm post clipping back in 2000 10 acute exacerbation of COPD Plan: Continue current medical management Chest x-ray shows residual patchy airspace infiltrates consistent with recent history of COVID-19 pneumonia Continue weaning FiO2 to keep O2 sat sure she is at or above 90% Overall breathing easier, still bronchospastic Continue current dose IV steroids Continue Symbicort and albuterol Continue oral anticoagulation We'll continue to follow I performed a history & physical examination of the patient and discussed their management with my nurse practitioner, Darcy Mccartney. I reviewed the nurse practitioner's note and agree with the documented findings and plan of care. Lung sounds are positive for diffuse wheezes throughout the lung coles. The findings and the impression was discussed with the patient. I attest to the documentation by the nurse practitioner. Time with Patient: Less than 30
[2021-03-04] MEDS: MONTELUKAST 10 MG TAB PO SCH (21:07)
[2021-03-04] MEDS: ATORVASTATIN 40 MG TAB PO SCH (21:07)
[2021-03-05] MEDS: Acetaminophen-Codeine 300-30mg TAB PO PRN ×3 (03:15→17:10)
[2021-03-05] MEDS: ACETAMINOPHEN TAB 325 MG TAB PO SCH (05:42)
[2021-03-05] MEDS: SYMBICORT 160-4.5 MCG INHALER INHALATION SCH ×2 (07:13→21:33)
[2021-03-05] MEDS: ALBUTEROL HFA INHALER INHALATION SCH ×4 (07:13→21:32)
[2021-03-05] MEDS: methylPREDNISolone SOD SUCCI 40 MG/ML 1 ML VIAL IV SCH ×2 (08:26→21:49)
[2021-03-05] MEDS: APIXABAN 5 MG TAB PO SCH ×2 (08:26→21:49)
[2021-03-05] MEDS: AMIODARONE 200 MG TAB PO SCH ×2 (08:26→21:49)
[2021-03-05] MEDS: FAMOTIDINE 20 MG TAB PO SCH ×2 (08:26→17:10)
[2021-03-05 09:10] LABS: HGB 8.4 g/dL (12.0-15.0); MCH 26.7 pg (27.0-32.0); MCV 88.9 fL (80.0-97.0); Mean Platelet Volume 9.6 fL (9.5-12.2); Platelet Count 423 X 10*3/uL (140-440); RBC 3.15 X 10*6/uL (4.10-5.20); RDW 18.8 % (11.5-14.5); WBC 11.22 X 10*3/uL (4.50-10.00)
[2021-03-05 09:54] LABS: Basophils # (M) 0 X 10*3/uL (0.00-0.10); Eosinophils # (M) 0 X 10*3/uL (0.04-0.35); Lymphocytes # (M) 0.67 X 10*3/uL (0.90-5.00); Monocytes # (M) 0.34 X 10*3/uL (0.20-1.00); Myelocytes % 1 % (0-0); Neutrophils # (M) 9.99 X 10*3/uL (2.00-8.90); Neutrophils % (M) 89 %; Promyelocytes % 1 % (0-0)
[2021-03-05 10:16] LABS: African American GFR (CKD) 119.4 (60.0-200.0); Anion Gap 8.8 mmol/L (4.00-12.00); Calcium 8.2 mg/dL (8.7-10.3); Carbon Dioxide 28.2 mmol/L (21.6-31.8); Potassium 4.7 mmol/L (3.5-5.5)
--- NOTE | 2021-03-05 13:57 | PN ---
PROGRESS NOTE DATE OF SERVICE: 03/05/2021 REASON FOR FOLLOWUP: Pneumonia. INTERVAL HISTORY: The patient is currently afebrile. The patient is breathing more comfortably. No chest pain, shortness of breath or cough. No abdominal pain or diarrhea. PHYSICAL EXAMINATION: Blood pressure 125/65, pulse of 68, temperature 98, she is 94% on 2 L nasal cannula. General description is a middle-aged female lying in bed in no distress. Respiratory system: Unlabored breathing, clear to auscultation anteriorly. Heart S1, S2. Regular rate and rhythm. Abdomen soft, no tenderness. LABS: Hemoglobin is 8.1, white count 11.2, BUN of 25, creatinine 0.5. Sputum has been usual respiratory luis. Blood culture has been negative. DIAGNOSTIC IMPRESSION AND PLAN: Patient admitted to the hospital with fever, concerning for pneumonia. Sputum has been negative for any resistant pathogen. Patient is covered with Rocephin with the plan to finish therapy with oral Ceftin and close outpatient followup. MMODL / IJN: [id number] /
--- NOTE | 2021-03-05 15:02 | P.PN ---
Subjective Progress Note Date: 03/05/21 Principal diagnosis: Dyspnea, acute on chronic hypoxic respiratory failure 65-year-old female patient, sent over again from [facility] on the [place] where she was recuperating from her COVID-19 related pneumonia/infection. The patient was sent back to the emergency as there was some reported worsening shortness of breath and hypoxemia. At the detention, the patient was utilizing oxygen at 2 L per minute nasal cannula and she had to be placed on dual 4 L along with the shortness of breath and for that reason she was sent in the hospital for further evaluation. The patient is reporting weakness pH she declines having any major recovery at the detention. She still having some shortness of breath. She has a congested cough and also that his sputum production. He is in the hospital, the patient was found to her white cell count of 7.3 with a hemoglobin of 10 and a platelet 147. The electrodes are normal. Renal function was normal. LFTs were normal. Focused on level was 0.29. Urinalysis was essentially negative balance of +1 glucose. She was still positive for COVID- 19. Sodium level was 133. Chest x-ray was done and it showed patchy pulmonary opacities and infiltrates bilaterally consistent with COVID-19 related pneumonia with infiltrates probably stable compared to the previous x-ray from 02/11/2021. There may be some interval improvement upon detailed comparison.. Inflammatory markers showed a CRP of 25, LDH was 876 and the liver functions were essentially within normal limits. On March 01, 2021 patient seen in follow-up on medical surgical floor. She is more dyspneic on today's exam, bronchospastic, she feels nauseous. SHe is on 3 L of oxygen pulse ox 90%, she is afebrile, hemodynamically she is stable, not bringing up much in the way of sputum. CT chest shows extensive patchy predominantly interstitial pulmonary infiltrates increased compared to most recent CT scan, with an area of patchy atelectasis in both lungs, which is like ly related to inflammatory disease. And there is slight enlargement of the pretracheal lymph nodes compared to old exam. Patient is on inhalers he is on empiric antibiotics in the form of Rocephin, she is on oral anticoagulation in the form of Eliquis. She remains on empiric antibiotics in the form of Rocephin and vancomycin, and sputum cultures have been sent and remain negative thus far. On 03/04/2021 patient seen in follow-up on medical surgical floor. She is currently on 3 L of oxygen, still quite wheezy and bronchospastic and her pulse oximetry 96%, she's been afebrile, hemodynamics she is been stable. Today's chest x-ray shows bilateral prominent interstitial changes, pH airspace disease, assisted with patient's recent history of COVID-19 pneumonia. Overall she is breathing easier, she continues on IV steroids currently on Solu-Medrol 40 mg every 12 hours, and she continues on Eliquis 5 mg twice daily. She is complaining of pain in her right ankle, and x-ray of the right ankle showed no significant abnormality. His labs have been reviewed, her ESR was elevated at 93, uric acid was 3.3. Patient continues on Rocephin for empiric antibiotic coverage. Sputum and blood cultures have been negative, she's been afebrile. On 03/05/2021 patient seen in follow-up on medical surgical floor. She is breathing comfortably, she is currently down to 2 L, her pulse ox is 95%, much less bronchospastic and dyspneic on today's exam, she is resting comfortably in bed, she's had no fever or chills, no acute events overnight, overall she states she is feeling much better, her last chest x-ray was yesterday showing bilateral prominent interstitial changes and patchy airspace disease related to recent history of COVID pneumonia. Today's labs have been reviewed, white blood cell count is 11.2, hemoglobin is 8.4, electrolytes and renal profile are unremarkable. Patient has received several days of Rocephin for empiric antibiotic coverage, IV Solu-Medrol is at 40 mg twice daily, she is on inhalers including Symbicort and albuterol. Overall clinically has improved since a dmission, and discharge planning is in progress for transfer to [facility] Objective - Vital Signs Vital signs: Vital Signs Temp 97.8 F 03/05/21 14:00 Pulse 69 03/05/21 14:00 Resp 16 03/05/21 14:00 BP 134/70 03/05/21 14:00 Pulse Ox 95 03/05/21 14:00 Intake & Output 03/04/21 03/05/21 03/05/21 18:59 06:59 18:59 Weight 90.718 kg Other: Voiding Method Bedpan Bedpan Bedpan # Voids 1 - Exam GENERAL EXAM: Alert, very pleasant 65-year-old white female, on 2 L of oxygen with a pulse ox of 96% comfortable in no apparent distress. HEAD: Normocephalic/atraumatic. EYES: Normal reaction of pupils, equal size. Conjunctiva pink, sclera white. NOSE: Clear with pink turbinates. THROAT: No erythema or exudates. NECK: No masses, no JVD, no thyroid enlargement, no adenopathy. CHEST: No chest wall deformity. Symmetrical expansion. LUNGS: Equal air entry with diffuse wheezes throughout the lung coles CVS: Regular rate and rhythm, normal S1 and S2, no gallops, no murmurs, no rubs ABDOMEN: Soft, nontender. No hepatosplenomegaly, normal bowel sounds, no guar ding or rigidity. EXTREMITIES: No clubbing, no edema, no cyanosis, 2+ pulses and upper and lower extremities. MUSCULOSKELETAL: Muscle strength and tone normal. SPINE: No scoliosis or deformity SKIN: No rashes CENTRAL NERVOUS SYSTEM: Alert and oriented -3. No focal deficits, tone is normal in all 4 extremities. PSYCHIATRIC: Alert and oriented -3. Appropriate affect. Intact judgment and insight. - Labs CBC & Chem 7: 03/05/21 06:15 03/05/21 06:15 Labs: Abnormal Lab Results - Last 24 Hours (Table) 03/05/21 03/05/21 Range/Units 06:15 06:15 WBC 11.22 H (4.50-10.00) X 10*3/uL RBC 3.15 L (4.10-5.20) X 10*6/uL Hgb 8.4 L (12.0-15.0) g/dL Hct 28.0 L (37.2-46.3) % MCH 26.7 L (27.0-32.0) pg MCHC 30.0 L (32.0-37.0) g/dL RDW 18.8 H (11.5-14.5) % Absolute Nucleated RBC 0.04 H (0.00-0.00) X 10*3/uL Myelocytes % 1 H (0-0) % Promyelocytes % 1 H (0-0) % Neutrophils # (Manual) 9.99 H (2.00-8.90) X 10*3/uL Lymphocytes # (Manual) 0.67 L (0.90-5.00) X 10*3/uL Eosinophils # (Manual) 0 L (0.04-0.35) X 10*3/uL NRBC/100 WBC Diff 0.4 H (0.0-0.0) /100 WBCS Creatinine 0.5 L (0.6-1.5) mg/dL BUN/Creatinine Ratio 50.00 H (12.00-20.00) Ratio Glucose 134 H (70-110) mg/dL Calcium 8.2 L (8.7-10.3) mg/dL Microbiology - Last 24 Hours (Table) 02/28/21 08:21 Blood Culture - Preliminary Blood No Growth after 120 hours 02/28/21 08:15 Blood Culture - Preliminary Blood No Growth after 120 hours Assessment and Plan Plan: Assessment: 1 COVID-19 related pneumonia with hypoxic respiratory failure, subacute. The patient was originally diagnosed on 01/30/2021. She was discharged to detention on 02/13/2021 after being treated for coronary 19 related pneumonia. She was discharged on oxygen at 2 L per minute nasal cannula. She was readmitted for worsening shortness of breath. Her rehabilitation detention has been quite limited. Chest x-ray showing some interval improvement in the pulmonary infiltrates associated with COVID-19 pneumonia. No other exacerbating or decompensating fact identified on today's evaluation. Superinfection with pneumonia is felt to be less likely. No signs of any decompensated heart failure. 2 COPD with chronic hypoxic respiratory failure, last hospital stay. Exacerbation was back in December 2020. 3 chronic atrial fibrillation 4 hypertension 5 hyperlipidemia 6 history of CVA 7 coronary artery disease with previous TN 8 chronic hypoxic respiratory failure 9 history of RANGE RIDER aneurysm post clipping back in 2000 10 acute exacerbation of COPD Plan: Patient is improving, breathing much easier, less bronchospastic Vital signs have been stable overnight No fever or chills FiO2 is down to 2 L Yesterday's chest x-ray shows stable bilateral patchy airspace disease related to recent COVID pneumonia Patient came in transition to oral prednisone She has completed a course of Rocephin Stable from pulmonary perspective, and improved Stable for transfer back to [facility] today I performed a history & physical examination of the patient and discussed their management with my nurse practitioner, Darcy Mccartney. I reviewed the nurse practitioner's note and agree with the documented findings and plan of care. Lung sounds are positive for diffuse wheezes throughout the lung coles. The findings and the impression was discussed with the patient. I attest to the documentation by the nurse practitioner. Time with Patient: Less than 30
--- NOTE | 2021-03-05 15:33 | PN ---
PROGRESS NOTE DATE OF SERVICE: 03/05/2021 This 65-year-old woman who was admitted with acute respiratory failure secondary to COVID-19 pneumonia, is being closely monitored at this time. The patient also had acute hypoxic respiratory failure. The patient also had COPD acute exacerbation also. Pulmonary is following the patient closely. The patient on bronchodilators. Most recent chest x-ray showed bilateral interstitial pneumonia, suggestive of Covid-19 pneumonia. PAST MEDICAL HISTORY: Reviewed. REVIEW OF SYSTEMS: CARDIOVASCULAR: As mentioned earlier. RESPIRATORY: As mentioned earlier. GI: As mentioned earlier. : No dysuria. Nervous system: No numbness, weakness. MEDICATIONS: Reviewed include Tylenol, Oak, Ventolin, Eliquis, Symbicort, Rocephin, doses reviewed. PHYSICAL EXAM: Patient is alert, oriented x3. Pulse 69, blood pressure 130/70, respirations 16, temperature 97.8, pulse ox 94% on 2 L. HEENT: Conjunctivae normal. NECK: No JVD. CARDIOVASCULAR: S1, S2 muffled. RESPIRATORY: Breath sounds diminished in the bases. A few scattered rhonchi and crackles. Expiratory wheezing also present. ABDOMEN: Soft. Nontender. NERVOUS SYSTEM: No focal deficits. LABS: WBC 11.2, hemoglobin 8.4. ESR is 93. Calcium is 8.2. SARAH rheumatoid factor is negative. ASSESSMENT: 1. Acute Covid 19 pneumonia, bilateral, with acute bilateral interstitial pneumonia with acute hypoxic respiratory failure. 2. Chronic obstructive pulmonary disease acute exacerbation. 3. Right ankle pain. 4. Anemia, normocytic anemia of chronic disease. 5. Elevated inflammatory markers of COVID-19. 6. Hypocalcemia. 7. Elevated procalcitonin. 8. Right ankle pain. 9. History of atrial fibrillation. 10.History of asthma. 11.History of cerebrovascular accident, transient ischemic attack. 12.History of degenerative joint disease. 13.Gait dysfunction. 14.History of brain aneurysm and clipping. 15.Chronic hypoxic respiratory failure secondary to chronic obstructive pulmonary disease, on oxygen 2 L nasal cannula at home. 16.History of coronary artery disease/ stent. 17.History of anxiety/depression. 18.Remote history of nicotine dependence. 19.Obesity with body mass index of 31.6. 20.FULL CODE. RECOMMENDATIONS AND DISCUSSION: Continue current medications, symptomatic treatment. Otherwise, at this time, continue the antibiotics. Continue the bronchodilators. Continue the rest of medications. The patient is already on apixaban. Prognosis guarded. Further recommendations to follow. MMODL / IJN: [id number] /
[2021-03-05] MEDS: MONTELUKAST 10 MG TAB PO SCH (21:49)
[2021-03-05] MEDS: ATORVASTATIN 40 MG TAB PO SCH (21:49)
[2021-03-06] MEDS: Acetaminophen-Codeine 300-30mg TAB PO PRN ×2 (01:45→08:12)
[2021-03-06] MEDS: ACETAMINOPHEN TAB 325 MG TAB PO SCH (06:09)
[2021-03-06] MEDS: FAMOTIDINE 20 MG TAB PO SCH (08:10)
[2021-03-06] MEDS: AMIODARONE 200 MG TAB PO SCH (08:10)
[2021-03-06] MEDS: methylPREDNISolone SOD SUCCI 40 MG/ML 1 ML VIAL IV SCH (08:10)
[2021-03-06] MEDS: APIXABAN 5 MG TAB PO SCH (08:10)
[2021-03-06] MEDS: SYMBICORT 160-4.5 MCG INHALER INHALATION SCH (08:35)
[2021-03-06] MEDS: ALBUTEROL HFA INHALER INHALATION SCH ×3 (08:35→16:22)
--- NOTE | 2021-03-06 13:00 | P.DS ---
Providers Date of admission: 03/01/21 08:19 Expected date of discharge: 03/06/21 Attending physician: Natividad Champion Consults: 02/27/21 18:26 Consult Physician Stat Consulting Provider: Maciel Winn Consult Reason/Comments: hypoxemia, covid Do you want consulting provider notified?: Yes 02/28/21 10:15 Consult Physician Routine Consulting Provider: Stevenson Tomlinson Consult Reason/Comments: Pneumonia Do you want consulting provider notified?: Yes Primary care physician: Marino David Hospital Course: Final diagnosis Acute COVID-19 pneumonia, bilateral, with acute bilateral interstitial pneumonia with acute hypoxic respiratory failure Chronic obstructive pulmonary disease acute exacerbation Right ankle pain Anemia, normocytic anemia of chronic disease Elevated inflammatory markers of COVID-19 Hypocalcemia Elevated pro calcitonin History of atrial fibrillation History of asthma History of CVA, TIA History of degenerative joint disease Gait dysfunction History of brain aneurysm and being Chronic hypoxic respiratory failure secondary to chronic obstructive pulmonary disease, on oxygen 2 L nasal cannula at home History of coronary artery disease, stent history of anxiety depression remote history of nicotine dependence obesity with a BMI of 31.6 Full code Discharge disposition Patient is being discharged in a stable condition with guarded prognosis to [facility] for continued PT/OT therapy. Patient will follow-up with Dr. Pichardo in the outpatient setting upon discharge. Patient is to continue with oral antibiotics in the form of Ceftin 500 mg twice daily for the next 7 days and then may discontinue. Patient will also continue with prednisone taper upon discharge. Total time taken is greater than 35 minutes. Hospital course As is a 65-year-old female who was admitted with acute respiratory failure secondary to COVID-19 pneumonia and was being closely monitored. Infectious disease along with pulmonary following. Patient also had acute hypoxic respiratory failure along with COPD acute exacerbation. She will continue with inhalers along with oral antibiotics in the form of Ceftin 500 mg twice daily for the next 7 days and also a prednisone taper upon discharge. Patient instructed to follow-up with pulmonary in the outpatient setting. Due to multiple complex medical issues and continued weakness patient will be going to [facility]. Recommend repeat labs in a few days. Currently no reports of chest pain, worsening shortness of breath, or palpitations. Patient is afebrile. No reports of nausea or vomiting and patient is tolerating diet. Patient will be going to [facility] on the [facility] today. On exam vital signs are stable. Cardio S1, S2 are muffled. Respiratory system shows diminished breath sounds at the bases with no wheezing or rhonchi noted. Abdomen is soft and obese, and nontender. Nervous system shows diffuse weakness. Please refer to medication reconciliation sheet for a list of medications. Patient Condition at Discharge: Stable Plan - Discharge Summary Discharge Rx Participant: No New Discharge Prescriptions: New Cefuroxime Axetil [Ceftin] 500 mg PO BID 7 Days #14 tab Ibuprofen [Advil] 200 mg PO TID PRN tab PRN Reason: Mild Pain predniSONE 10 mg PO DIRECTED #30 tab Albuterol Inhaler [Ventolin Hfa Inhaler] 2 puff INHALATION RT-QID puff Continue Famotidine [Pepcid] 20 mg PO BID@0900,1700 lisinopriL [Zestril] 5 mg PO DAILY@0900 Albuterol Nebulized [Ventolin Nebulized] 2.5 mg INHALATION RT-DAILY PRN PRN Reason: Shortness Of Breath Benzocaine/Menthol Lozeng [Cepacol lozenge] 1 lozenge MUCOUS MEM Q4HR PRN PRN Reason: Sore Throat Ipratropium-Albuterol Nebulize [Duoneb 0.5 mg-3 mg/3 ml Soln] 3 ml INHALATION RT-QID@00,06,12,18 Budesonide/Formoterol Fumarate [Symbicort 160-4.5 Mcg Inhaler] 2 puff INHALATION RT-BID@0900,2100 Atorvastatin Calcium [Lipitor] 40 mg PO HS@2100 Amiodarone [Cordarone] 200 mg PO BID@0900,2100 Acetaminophen [Tylenol 8 Hour] 650 mg PO Q6H PRN PRN Reason: Pain Acetaminophen [Acetaminophen 8 Hour] 650 mg PO DAILY@0600 Acetaminophen-Codeine 300-30mg [Tylenol w/codeine #3] 1 tab PO Q6H PRN #6 tab PRN Reason: Pain Montelukast [Singulair] 10 mg PO HS@2100 Apixaban [Eliquis] 5 mg PO BID@0900,2100 Discontinued amLODIPine [Norvasc] 5 mg PO DAILY@0900 Discharge Medication List Famotidine [Pepcid] 20 mg PO BID@0900,1700 08/04/20 [History] lisinopriL [Zestril] 5 mg PO DAILY@0900 11/10/20 [History] Albuterol Nebulized [Ventolin Nebulized] 2.5 mg INHALATION RT-DAILY PRN 01/08/21 [History] Benzocaine/Menthol Lozeng [Cepacol lozenge] 1 lozenge MUCOUS MEM Q4HR PRN 01/30/21 [History] Acetaminophen [Acetaminophen 8 Hour] 650 mg PO DAILY@0600 02/27/21 [History] Acetaminophen [Tylenol 8 Hour] 650 mg PO Q6H PRN 02/27/21 [History] Amiodarone [Cordarone] 200 mg PO BID@0900,209902/27/21 [History] Apixaban [Eliquis] 5 mg PO BID@0900,209902/27/21 [History] Atorvastatin Calcium [Lipitor] 40 mg PO HS@209902/27/21 [History] Budesonide/Formoterol Fumarate [Symbicort 160-4.5 Mcg Inhaler] 2 puff INHALATION RT-BID@0900,209902/27/21 [History] Ipratropium-Albuterol Nebulize [Duoneb 0.5 mg-3 mg/3 ml Soln] 3 ml INHALATION RT-QID@00,06,12,18 02/27/21 [History] Montelukast [Singulair] 10 mg PO HS@209902/27/21 [History] Acetaminophen-Codeine 300-30mg [Tylenol w/codeine #3] 1 tab PO Q6H PRN #6 tab 03/06/21 [Rx] Albuterol Inhaler [Ventolin Hfa Inhaler] 2 puff INHALATION RT-QID puff 03/06/21 [Rx] Cefuroxime Axetil [Ceftin] 500 mg PO BID 7 Days #14 tab 03/06/21 [Rx] Ibuprofen [Advil] 200 mg PO TID PRN tab 03/06/21 [Rx] predniSONE 10 mg PO DIRECTED #30 tab 03/06/21 [Rx] Follow up Appointment(s)/Referral(s): Frankie Pichardo MD [Primary Care Provider] - 1-2 days [facility] on the [address], [NON-STAFF] - As Needed Ambulatory/Diagnostic Orders: Complete Blood Count w/diff [LAB.AMB] Time Frame: 2 Days, Location: None Selected Patient Instructions/Handouts: Coronavirus Disease 2019 (COVID-19) Activity/Diet/Wound Care/Special Instructions: Patient is going to [facility] on the [place] [employer] as tolerated Continue with heart healthy diet repeat labs in 2-3 days CBC and CMP Follow-up pulmonary outpatient Continue with antibiotics 7 days then may discontinue continue the with prednisone taper Discharge Disposition: TRANSFER TO SNF/ECF
[2021-03-06 16:09] VITALS: BP 144/68; PULSE 69; RESP 19; TEMP 97.5
--- NOTE | 2021-03-06 19:50 | P.PN ---
Progress Note - Text Progress Note Date: 03/06/21 REASON FOR FOLLOWUP: Pneumonia. INTERVAL HISTORY: The patient is afebrile. The patient is breathing comfortably. the pt denies chest pain, shortness of breath or cough. No abdominal pain or diarrhea. PHYSICAL EXAMINATION: Blood pressure 120/60, pulse of 68, temperature 98, she is 94% on 2 L nasal cannula. General description is a middle-aged female lying in bed in no distress. Respiratory system: Unlabored breathing, clear to auscultation anteriorly. Heart S1, S2. Regular rate and rhythm. Abdomen soft, no tenderness. LABS: Sputum has been usual respiratory luis. Blood culture has been negative. DIAGNOSTIC IMPRESSION AND PLAN: Patient admitted to the hospital with fever, concerning for pneumonia. Sputum has been negative for any resistant pathogen. Patient is covered with Rocephin with the plan to finish therapy with oral Ceftin 500mg bid x 5 days and close outpatient follo wup.
== END 2021-03-06 17:34 | DRG 177 ==
LOC: EC 16:05 → 4SSUR 18:42 → OBSVTOIN 03-01 08:19 → 4SSUR 03-05 02:55
PROVIDERS: ADMIT Internal Medicine; ATTEND Internal Medicine
DX: U07.1 COVID-19 (principal); J12.82 Pneumonia due to coronavirus disease 2019; J96.21 Acute and chronic respiratory failure with hypoxia; J96.22 Acute and chronic respiratory failure with hypercapnia; I48.20 Chronic atrial fibrillation, unspecified; J44.0 Chronic obstructive pulmonary disease with (acute) lower respiratory infection; J44.1 Chronic obstructive pulmonary disease with (acute) exacerbation; D63.8 Anemia in other chronic diseases classified elsewhere; E83.51 Hypocalcemia; I25.10 Atherosclerotic heart disease of native coronary artery without angina pectoris; K21.9 Gastro-esophageal reflux disease without esophagitis; E78.5 Hyperlipidemia, unspecified; I10 Essential (primary) hypertension; I99.9 Unspecified disorder of circulatory system; I25.2 Old myocardial infarction; M41.9 Scoliosis, unspecified; M25.571 Pain in right ankle and joints of right foot; R26.9 Unspecified abnormalities of gait and mobility; J30.2 Other seasonal allergic rhinitis; G89.29 Other chronic pain; M54.5 Low back pain; M19.90 Unspecified osteoarthritis, unspecified site; E66.9 Obesity, unspecified; Z68.31 Body mass index [BMI] 31.0-31.9, adult; Z99.81 Dependence on supplemental oxygen; Z79.01 Long term (current) use of anticoagulants; Z79.51 Long term (current) use of inhaled steroids; Z79.899 Other long term (current) drug therapy; Z87.891 Personal history of nicotine dependence; Z86.73 Personal history of transient ischemic attack (TIA), and cerebral infarction without residual deficits; Z86.79 Personal history of other diseases of the circulatory system; Z87.74 Personal history of (corrected) congenital malformations of heart and circulatory system; Z95.5 Presence of coronary angioplasty implant and graft; Z95.828 Presence of other vascular implants and grafts; Z87.39 Personal history of other diseases of the musculoskeletal system and connective tissue; Z86.59 Personal history of other mental and behavioral disorders; Z98.51 Tubal ligation status; Z98.1 Arthrodesis status; Z98.890 Other specified postprocedural states; Z88.6 Allergy status to analgesic agent; Z88.1 Allergy status to other antibiotic agents; Z88.2 Allergy status to sulfonamides; Z82.49 Family history of ischemic heart disease and other diseases of the circulatory system; Z83.3 Family history of diabetes mellitus; Z71.3 Dietary counseling and surveillance
CPT/HCPCS: 36415; 71045; 71046; 71250; 80048; 80053; 80202; 81001; 82728; 83605; 83615; 83735; 84145; 84550; 85025; 85027; 85379; 85610; 85652; 85730; 86038; 86140; 86431; 87040; 87070; 87205; 87636; 93005; 94640; 94760; 99285

== ENCOUNTER 2021-05-13 07:02 | Inpatient (IN) | payer OTHER ==
[2021-05-13 07:47] LABS: Anisocytosis Slight; Basophils # (A) 0.1 k/uL (0-0.2); Basophils % (A) 1 %; Eosinophils # (A) 2.7 k/uL (0-0.7); Eosinophils % (A) 27 %; HCT 34.8 % (34.0-46.0); HGB 11.3 gm/dL (11.4-16.0); Hypochromasia Slight; Lymphocytes # (A) 1.1 k/uL (1.0-4.8); Lymphocytes % (A) 11 %; MCH 27.1 pg (25.0-35.0); MCHC 32.4 g/dL (31.0-37.0); MCV 83.7 fL (80.0-100.0); Monocytes # (A) 0.7 k/uL (0-1.0); Monocytes % (A) 7 %; Neutrophils # (A) 5.1 k/uL (1.3-7.7); Neutrophils % (A) 52 %; Platelet Count 327 k/uL (150-450); RBC 4.16 m/uL (3.80-5.40); RDW 16.2 % (11.5-15.5); WBC 9.8 k/uL (3.8-10.6)
--- NOTE | 2021-05-13 07:53 | XR ---
EXAMINATION TYPE: XR chest 1V portable DATE OF EXAM: 05/13/2021 COMPARISON: 03/04/2021 HISTORY: Cough TECHNIQUE: Single frontal view of the chest is obtained. FINDINGS: Extensive bilateral patchy airspace disease and prominence of the interstitium has worsene d since the prior exam. Cardiac silhouette is unchanged in size. IMPRESSION: Extensive bilateral patchy airspace disease and prominence of the interstitium has worsened since the prior exam.
[2021-05-13 08:03] LABS: ALT 106 U/L (4-34); AST 107 U/L (14-36); African American GFR (CKD) >90 (>60 ml/min/1.73 sqM); Albumin 3.2 g/dL (3.5-5.0); Alkaline Phosphatase 98 U/L (38-126); Anion Gap 5 mmol/L; Blood Urea Nitrogen 12 mg/dL (7-17); C Reactive Protein 3.3 mg/dL (<1.0); Calcium 9.3 mg/dL (8.4-10.2); Carbon Dioxide 33 mmol/L (22-30); Chloride 99 mmol/L (98-107); Glucose 98 mg/dL (74-99); LDH 576 U/L (313-618); Magnesium 1.8 mg/dL (1.6-2.3); Non-African American GFR(CKD) >90 (>60 ml/min/1.73 sqM); Potassium 4.7 mmol/L (3.5-5.1); Sodium 137 mmol/L (137-145); Total Bilirubin 0.2 mg/dL (0.2-1.3); Total Protein 6.5 g/dL (6.3-8.2)
[2021-05-13 08:07] LABS: Partial Thromboplastin Time 23.2 sec (22.0-30.0); Prothrombin Time 10.6 sec (9.0-12.0)
--- NOTE | 2021-05-13 08:07 | ED ---
SOB HPI - General Chief Complaint: Shortness of Breath Stated Complaint: SOB Time Seen by Provider: 05/13/21 07:04 Source: patient, EMS Mode of arrival: EMS Limitations: no limitations - History of Present Illness Initial Comments: Patient is a 65-year-old female with history of A. fib, COPD, normally on 2 L of home O2, presenting to the emergency department via EMS from [facility] for increasing shortness of breath and chest tightness when she coughs. She states she is normally only on 2 L of oxygen but they have been bumping up to 3 L over the past week secondary to her increasing coughing and shortness of breath. She states she only gets chest pain when she breathes in deeply or when she coughs, feels like burning. She denies any recent fevers. She denies any nausea or vomiting, no abdominal pain. She did finish a course of Levaquin about 2 weeks ago. She is not currently on antibiotics. She has no further complaints at this time. Upon arrival to the ER, she is at 92% on 3 L, rest of vitals within normal limits. - Related Data Home Medications Medication Instructions Recorded Confirmed Famotidine [Pepcid] 20 mg PO BID@0900,1700 08/04/20 02/27/21 Albuterol Nebulized [Ventolin 2.5 mg INHALATION RT-DAILY PRN 01/08/21 02/27/21 Nebulized] Benzocaine/Menthol Lozeng [Cepacol 1 lozenge MUCOUS MEM Q4HR PRN 01/30/21 02/27/21 lozenge] Acetaminophen [Acetaminophen 8 650 mg PO DAILY@0600 02/27/21 02/27/21 Hour] Acetaminophen [Tylenol 8 Hour] 650 mg PO Q6H PRN 02/27/21 02/27/21 Amiodarone [Cordarone] 200 mg PO BID@0900,209902/27/21 02/27/21 Apixaban [Eliquis] 5 mg PO BID@0900,209902/27/21 02/27/21 Atorvastatin Calcium [Lipitor] 40 mg PO HS@209902/27/21 02/27/21 Budesonide/Formoterol Fumarate 2 puff INHALATION RT-BID@0900,209902/27/21 02/27/21 [Symbicort 160-4.5 Mcg Inhaler] Ipratropium-Albuterol Nebulize 3 ml INHALATION RT-QID@00,06,12,18 02/27/21 02/27/21 [Duoneb 0.5 mg-3 mg/3 ml Soln] Montelukast [Singulair] 10 mg PO HS@2100 02/27/21 02/27/21 Albuterol Inhaler [Ventolin Hfa 2 puff INHALATION 05/13/21 05/13/21 Inhaler] RT-QID@,,, Depo-Medrol 40mg/Ml 40 mg IM DAILY PRN 05/13/21 05/13/21 Diclofenac Sodium [Voltaren Gel] 1 applic TOPICAL TID@0900,1300,2100 05/13/21 05/13/21 Ibuprofen [Motrin Ib] 200 mg PO Q8H PRN 05/13/21 05/13/21 Losartan [Cozaar] 25 mg PO DAILY 05/13/21 05/13/21 Methyl Salicylate/Menth/Camph 1 patch TRANSDERM DAILY 05/13/21 05/13/21 [Salonpas 3.1%-6.0%-10.0% Patch] Previous Rx's Medication Instructions Recorded Acetaminophen-Codeine 300-30mg 1 tab PO Q6H PRN #6 tab 03/06/21 [Tylenol w/codeine #3] Allergies Allergy/AdvReac Type Severity Reaction Status Date / Time naproxen [From Naprosyn] Allergy Anaphylaxis Verified 05/13/21 08:34 Sulfa (Sulfonamide Allergy Anaphylaxis Verified 05/13/21 08:34 Antibiotics) azithromycin [From Zithromax] AdvReac does not Verified 05/13/21 08:34 take due to A-Fib Review of Systems ROS Statement: Those systems with pertinent positive or pertinent negative responses have been documented in the HPI. ROS Other: All systems not noted in ROS Statement are negative. Past Medical History Past Medical History: Atrial Fibrillation, Asthma, Coronary Artery Disease (CAD), COPD, CVA/TIA, GERD/Reflux, Hyperlipidemia, Myocardial Infarction ([place]), Osteoarthritis (OA), Vascular Disorder Additional Past Medical History / Comment(s): Pt tested covid + 01/30/21 [facility]. Pt recently admitted to [facility] on 01/08/21 with acute on chronic respiratory failure/tracheobronchitis severe or bronchopneumonia. 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 Last Myocardial Infarction Date:: 10/19/2019 History of Any Multi-Drug Resistant Organisms: None Reported Past Surgical History: Heart Catheterization With Stent, Orthopedic Surgery, Tubal Ligation Additional Past Surgical History / Comment(s): 2019 PCI/stent R PDA, 2000 angiogram/brain aneurysum that is clipped, abdominal aortogram with R common iliac artery PTBA/stent, left shoulder rotator cuff repair, spine lumbar disc 3x fused Past Anesthesia/Blood Transfusion Reactions: No Reported Reaction Date of Last Stent Placement:: 10/19/19 Past Psychological History: Anxiety, Depression Smoking Status: Former smoker Past Alcohol Use History: None Reported Past Drug Use History: None Reported - Past Family History Father Family Medical History: Coronary Artery Disease (CAD), Diabetes Mellitus Additional Family Medical History / Comment(s): Father had 3 vessel CABG. He at the age of 69 from heart disease. Mother Family Medical History: Myocardial Infarction ([place]) Additional Family Medical History / Comment(s): Mother of a [place] at the age of 42 yrs. General Exam - General Exam Comments Initial Comments: GENERAL: Patient is well-developed and well-nourished. Patient is nontoxic and in mild distress. HEAD: Atraumatic, normocephalic. EYES: Pupils equal round and reactive to light, extraocular movements intact, sclera anicteric, conjunctiva are normal. Eyelids were unremarkable. ENT: TMs normal, nares patent, oropharynx clear without exudates. Moist mucous membranes. NECK: Normal range of motion, supple without lymphadenopathy or JVD. LUNGS: Mildly labored respirations, scattered wheezes and rhonchi throughout. HEART: Regular rate and rhythm without murmurs, rubs or gallops. ABDOMEN: Soft, nontender, normoactive bowel sounds. No guarding, no rebound. No masses appreciated. : Deferred MUSCULOSKELETAL: Normal extremities with adequate strength and normal range of motion, no pitting or edema. No clubbing or cyanosis. NEUROLOGICAL: Patient is alert and oriented x 3. Motor and sensory are also intact. Cranial nerves II through XII grossly intact. Symmetrical smile. Normal speech, normal gait. PSYCH: Normal mood, normal affect. SKIN: Warm, Dry, normal turgor, no rashes or lesions noted. Limitations: no limitations Course Vital Signs 05/13/21 05/13/21 05/13/21 07:05 08:22 08:25 Temperature 97.9 F Pulse Rate 75 81 Respiratory 24 22 18 Rate Blood Pressure 133/64 O2 Sat by Pulse 92 L Oximetry 05/13/21 08:33 Temperature Pulse Rate 87 Respiratory 18 Rate Blood Pressure O2 Sat by Pulse Oximetry Medical Decision Making - Medical Decision Making Patient is a 65-year-old female with history of COPD, normally at 2 L, presenting from [facility] for increased shortness of breath and chest tightness when she coughs. She is currently on 3 L of O2 92%, rest of vitals within normal limits. EKG shows normal sinus rhythm, no acute ST segment elevation. Labs show a normal white count, slight transaminitis, troponin is negative. Chest x-ray showing extensive bilateral patchy airspace disease. Patient was started on Decadron and given breathing treatment. Patient be admitted for COPD exacerbation, pulmonary on consult. Patient accepted by Dr. Flores. Case discussed with Dr. Freitas. - Lab Data Result diagrams: 05/13/21 07:00 05/13/21 07:00 Lab Results 05/13/21 05/13/21 05/13/21 Range/Units 07:00 07:00 07:00 WBC 9.8 (3.8-10.6) k/uL RBC 4.16 (3.80-5.40) m/uL Hgb 11.3 L (11.4-16.0) gm/dL Hct 34.8 (34.0-46.0) % MCV 83.7 (80.0-100.0) fL MCH 27.1 (25.0-35.0) pg MCHC 32.4 (31.0-37.0) g/dL RDW 16.2 H (11.5-15.5) % Plt Count 327 (150-450) k/uL MPV 7.0 Neutrophils % 52 % Lymphocytes % 11 % Monocytes % 7 % Eosinophils % 27 % Basophils % 1 % Neutrophils # 5.1 (1.3-7.7) k/uL Lymphocytes # 1.1 (1.0-4.8) k/uL Monocytes # 0.7 (0-1.0) k/uL Eosinophils # 2.7 H (0-0.7) k/uL Basophils # 0.1 (0-0.2) k/uL Manual Slide Review Performed Hypochromasia Slight Anisocytosis Slight PT 10.6 (9.0-12.0) sec INR 1.0 (<1.2) APTT 23.2 (22.0-30.0) sec Sodium 137 (137-145) mmol/L Potassium 4.7 (3.5-5.1) mmol/L Chloride 99 (98-107) mmol/L Carbon Dioxide 33 H (22-30) mmol/L Anion Gap 5 mmol/L BUN 12 (7-17) mg/dL Creatinine 0.57 (0.52-1.04) mg/dL Est GFR (CKD-EPI)AfAm >90 (>60 ml/min/1.73 sqM) Est GFR (CKD-EPI)NonAf >90 (>60 ml/min/1.73 sqM) Glucose 98 (74-99) mg/dL Plasma Lactic Acid Jack (0.7-2.0) mmol/L Calcium 9.3 (8.4-10.2) mg/dL Magnesium 1.8 (1.6-2.3) mg/dL Total Bilirubin 0.2 (0.2-1.3) mg/dL AST 107 H (14-36) U/L ALT 106 H (4-34) U/L Alkaline Phosphatase 98 (38-126) U/L Lactate Dehydrogenase 576 (313-618) U/L Troponin I (0.000-0.034) ng/mL C-Reactive Protein 3.3 H (<1.0) mg/dL NT-Pro-B Natriuret Pep pg/mL Total Protein 6.5 (6.3-8.2) g/dL Albumin 3.2 L (3.5-5.0) g/dL 05/13/21 05/13/21 05/13/21 Range/Units 07:00 07:00 07:00 WBC (3.8-10.6) k/uL RBC (3.80-5.40) m/uL Hgb (11.4-16.0) gm/dL Hct (34.0-46.0) % MCV (80.0-100.0) fL MCH (25.0-35.0) pg MCHC (31.0-37.0) g/dL RDW (11.5-15.5) % Plt Count (150-450) k/uL MPV Neutrophils % % Lymphocytes % % Monocytes % % Eosinophils % % Basophils % % Neutrophils # (1.3-7.7) k/uL Lymphocytes # (1.0-4.8) k/uL Monocytes # (0-1.0) k/uL Eosinophils # (0-0.7) k/uL Basophils # (0-0.2) k/uL Manual Slide Review Hypochromasia Anisocytosis PT (9.0-12.0) sec INR (<1.2) APTT (22.0-30.0) sec Sodium (137-145) mmol/L Potassium (3.5-5.1) mmol/L Chloride (98-107) mmol/L Carbon Dioxide (22-30) mmol/L Anion Gap mmol/L BUN (7-17) mg/dL Creatinine (0.52-1.04) mg/dL Est GFR (CKD-EPI)AfAm (>60 ml/min/1.73 sqM) Est GFR (CKD-EPI)NonAf (>60 ml/min/1.73 sqM) Glucose (74-99) mg/dL Plasma Lactic Acid Jack 0.9 (0.7-2.0) mmol/L Calcium (8.4-10.2) mg/dL Magnesium (1.6-2.3) mg/dL Total Bilirubin (0.2-1.3) mg/dL AST (14-36) U/L ALT (4-34) U/L Alkaline Phosphatase (38-126) U/L Lactate Dehydrogenase (313-618) U/L Troponin I <0.012 (0.000-0.034) ng/mL C-Reactive Protein (<1.0) mg/dL NT-Pro-B Natriuret Pep 234 pg/mL Total Protein (6.3-8.2) g/dL Albumin (3.5-5.0) g/dL - EKG Data EKG Comments: Normal sinus rhythm, RBBB, no signs of acute ST segment elevation. Similar to previous EKG on 02/27/2021. Ventricular rate 74, MO interval 204, QT 438. Disposition Clinical Impression: COPD exacerbation, Hypoxemia Disposition: ADMITTED IP TO THIS HOSP Condition: Stable Is patient prescribed a controlled substance at d/c from ED?: No Referrals: Frankie Pichardo MD [Primary Care Provider] - 1-2 days Decision Date: 05/13/21 Decision Time: 08:48
[2021-05-13] MEDS ORDERED: IPRATROPIUM-ALBUTEROL 3 ML NEB INHALATION STA (08:17)
[2021-05-13] MEDS ORDERED: IPRATROPIUM-ALBUTEROL 3 ML NEB INHALATION PRN (08:48)
[2021-05-13] MEDS ORDERED: DEXAMETHASONE SOD PHOSPHATE 10 MG/ML 1 ML VIAL IV SCH (09:00)
--- NOTE | 2021-05-13 10:06 | P.CNPUL ---
History of Present Illness Consult date: 05/13/21 Requesting physician: Frankie Pichardo Reason for consult: dyspnea, cough, hypoxemia, pneumonia, abnormal CXR/CT Chief complaint: Cough, shortness of breath, phlegm production. History of present illness: Pulmonary consultation dated 05/13/2021. 65-year-old female who resides at [facility] the [facility]. She presents to the emergency room by EMS, with complaints of increasing shortness of breath, chest tightness, cough, and phlegm production. The patient has a history of atrial fibrillation, COPD, and prior episode of coronavirus pneumonia. Typically she is on 2 L nasal cannula. They apparently increased her up to 3 L when she was having shortness of breath. She hasn't been feeling well for about 2-1/2 weeks. No chest pain or chest discomfort. No nausea, vomiting, diarrhea or abdominal pain. She recently finished a course of Levaquin. Currently not on any antibiotics. She has not been vaccinated against coronavirus. The chest x-ray shows diffuse bilateral infiltrates, some of which may be related to previous episode of coronavirus pneumonia. 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 This a few other areas which are a bit more dense. White count 9.8, hemoglobin 11.3, hematocrit 34.8, and platelet count is normal. PT, INR, and PTT are normal. Sodium potassium chloride normal. CO2 is 33. Anion gap 5, BUN 12, creatinine 0.57. The patient's N-terminal proBNP is 234. Troponin is negative. Review of Systems REVIEW OF SYSTEMS: CONSTITUTIONAL: [Negative.] NEUROLOGIC: [ Negative.] HEENT: [ Negative.] CARDIAC: [Negative.] PULMONARY: Shortness of breath, chest tightness, chest congestion, cough, oc casional phlegm production over the period of about 2 weeks to a bit longer, getting worse. GI: [Negative.] : [Negative.] RHEUMATOLOGIC: [ Negative.] IMMUNOLOGIC: [ Negative.] ENDOCRINE: [Negative. ] DERMATOLOGIC: [Negative.] Past Medical History Past Medical History: Atrial Fibrillation, Asthma, Coronary Artery Disease (CAD), COPD, CVA/TIA, GERD/Reflux, Hyperlipidemia, Myocardial Infarction ([place]), Osteoarthritis (OA), Vascular Disorder Additional Past Medical History / Comment(s): Pt tested covid + 01/30/21 [facility] ER. Pt recently admitted to [facility] on 01/08/21 with acute on chronic respiratory failure/tracheobronchitis severe or bronchopneumonia. 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 Last Myocardial Infarction Date:: 10/19/2019 History of Any Multi-Drug Resistant Organisms: None Reported Past Surgical History: Heart Catheterization With Stent, Orthopedic Surgery, Tubal Ligation Additional Past Surgical History / Comment(s): 2019 PCI/stent R PDA, 2000 angiogram/brain aneurysum that is clipped, abdominal aortogram with R common iliac artery PTBA/stent, left shoulder rotator cuff repair, spine lumbar disc 3x fused Past Anesthesia/Blood Transfusion Reactions: No Reported Reaction Date of Last Stent Placement:: 10/19/19 Past Psychological History: Anxiety, Depression Smoking Status: Former smoker Past Alcohol Use History: None Reported Past Drug Use History: None Reported - Past Family History Father Family Medical History: Coronary Artery Disease (CAD), Diabetes Mellitus Additional Family Medical History / Comment(s): Father had 3 vessel CABG. He at the age of 69 from heart disease. Mother Family Medical History: Myocardial Infarction ([place]) Additional Family Medical History / Comment(s): Mother of a [place] at the age of 42 yrs. Medications and Allergies Home Medications Medication Instructions Recorded Confirmed Type Famotidine [Pepcid] 20 mg PO BID@0900,1700 08/04/20 05/13/21 History Albuterol Nebulized [Ventolin 2.5 mg INHALATION RT-DAILY PRN 01/08/21 05/13/21 History Nebulized] Benzocaine/Menthol Lozeng [Cepacol 1 lozenge MUCOUS MEM Q4HR PRN 01/30/21 05/13/21 History lozenge] Acetaminophen [Acetaminophen 8 650 mg PO DAILY@0600 02/27/21 05/13/21 History Hour] Acetaminophen [Tylenol 8 Hour] 650 mg PO Q6H PRN 02/27/21 05/13/21 History Amiodarone [Cordarone] 200 mg PO BID 02/27/21 05/13/21 History Apixaban [Eliquis] 5 mg PO BID 02/27/21 05/13/21 History Atorvastatin Calcium [Lipitor] 40 mg PO HS@2100 02/27/21 05/13/21 History Budesonide/Formoterol Fumarate 2 puff INHALATION RT-BID 02/27/21 05/13/21 History [Symbicort 160-4.5 Mcg Inhaler] Ipratropium-Albuterol Nebulize 3 ml INHALATION RT-QID@00,06,12,18 02/27/21 05/13/21 History [Duoneb 0.5 mg-3 mg/3 ml Soln] Montelukast [Singulair] 10 mg PO HS 02/27/21 05/13/21 History Acetaminophen-Codeine 300-30mg 1 tab PO Q6H PRN #6 tab 03/06/21 05/13/21 Rx [Tylenol w/codeine #3] Albuterol Inhaler [Ventolin Hfa 2 puff INHALATION 05/13/21 05/13/21 History Inhaler] RT-QID@,,, Depo-Medrol 40mg/Ml 40 mg IM DAILY PRN 05/13/21 05/13/21 History Diclofenac Sodium [Voltaren Gel] 1 applic TOPICAL TID@0900,1300,2100 05/13/21 05/13/21 History Ibuprofen [Motrin Ib] 200 mg PO Q8H PRN 05/13/21 05/13/21 History Losartan [Cozaar] 25 mg PO DAILY 05/13/21 05/13/21 History Methyl Salicylate/Menth/Camph 1 patch TRANSDERM DAILY 05/13/21 05/13/21 History [Salonpas 3.1%-6.0%-10.0% Patch] Allergies Allergy/AdvReac Type Severity Reaction Status Date / Time naproxen [From Naprosyn] Allergy Anaphylaxis Verified 05/13/21 08:34 Sulfa (Sulfonamide Allergy Anaphylaxis Verified 05/13/21 08:34 Antibiotics) azithromycin [From Zithromax] AdvReac does not Verified 05/13/21 08:34 take due to A-Fib Physical Exam Osteopathic Statement: *. No significant issues noted on an osteopathic structural exam other than those noted in the History and Physical/Consult. Vitals: Vital Signs Temp Pulse Resp BP Pulse Ox 05/13/21 09:12 72 16 148/69 94 L 05/13/21 08:33 87 18 05/13/21 08:30 82 23 148/59 97 05/13/21 08:25 81 18 05/13/21 08:22 22 05/13/21 08:19 83 26 H 148/59 94 L 05/13/21 07:05 97.9 F 75 24 133/64 92 L Intake and Output 05/12/21 05/13/21 05/13/21 22:59 06:59 14:59 Other: Weight 82.554 kg No acute distress, oriented 3. Currently on 3 L nasal O2, with a saturation of 94%. No audible wheezing, use of accessory muscles, or conversational dyspnea. HEENT examination is grossly unremarkable. Neck supple. Full range of motion. No adenopathy thyromegaly or neck vein distention. Cardiovascular examination reveals regular rhythm rate. S1-S2 normal. No S3 or S4. No discernible murmur noted. Heart sounds are distant. Heart rate 72 bpm. Lungs reveal scattered bilateral rhonchi. A few scattered crackles. No wheezes. Breath sounds equal bilaterally. Abdomen soft bowel sounds are heard. No masses or tenderness. Extremities are intact. No cyanosis clubbing or edema. Skin is without rash or lesion. Neurologic examination is brief but nonfocal. Results - Laboratory Findings CBC and BMP: 05/13/21 07:00 05/13/21 07:00 PT/INR, D-dimer PT 10.6 sec (9.0-12.0) 05/13/21 07:00 INR 1.0 (<1.2) 05/13/21 07:00 Abnormal lab findings: Abnormal Labs 05/13/21 05/13/21 07:00 07:00 Hgb 11.3 L RDW 16.2 H Eosinophils # 2.7 H Carbon Dioxide 33 H AST 107 H ALT 106 H C-Reactive Protein 3.3 H Albumin 3.2 L - Diagnostic Findings Chest x-ray: image reviewed Assessment and Plan Assessment: COPD exacerbation complicated by possible purulent tracheobronchitis/bronchopneumonia. Recent history of COVID 19 pneumonia, with possible postinflammatory pulmonary fibrotic changes on chest x-ray. History of atrial fibrillation. History of CAD. History of CVA. History of gastroesophageal reflux disease. Hyperlipidemia. Myocardial infarction. Status post clipping of a brain aneurysm, 2000. Chronic hypoxemic respiratory failure. History of scoliosis. CAD with previous stent placement. Plan: Plan dated 05/13/2021. The patient will be placed on DuoNeb's, Symbicort, and Solu-Medrol. In addition, she should get antibiotic. A pro-calcitonin level be done. Addit ional recommendations and suggestions are forthcoming. Prognosis is guarded. The patient has not yet been vaccinated. It has been more than 90 days since she tested positive for coronavirus. She could receive the vaccine at this time. We will continue to follow make recommendations where appropriate. Time with Patient: Greater than 30
[2021-05-13] MEDS: IPRATROPIUM-ALBUTEROL 3 ML NEB INHALATION SCH ×3 (10:48→20:09)
[2021-05-13 11:42] LABS: Ferritin 37.8 ng/mL (10.0-291.0)
[2021-05-13] MEDS: methylPREDNISolone SOD SUCCI 40 MG/ML 1 ML VIAL IV SCH ×3 (11:46→22:19)
[2021-05-13] MEDS ORDERED: IBUPROFEN 200 MG TAB PO PRN (15:35)
[2021-05-13] MEDS ORDERED: ACETAMINOPHEN TAB 325 MG TAB PO PRN (15:35)
--- NOTE | 2021-05-13 17:53 | HP ---
HISTORY AND PHYSICAL DATE OF SERVICE: 05/13/2021. CHIEF COMPLAINT: Shortness of breath. HISTORY OF PRESENT ILLNESS: This 65-year-old woman with a past medical history of recent Covid 19 pneumonia with bilateral interstitial pneumonia, COPD exacerbation, history of atrial fibrillation, history of asthma, COPD, CVA, TIA, GERD, hypertension, myocardial infarction, being followed by Dr. Pichardo and was admitted with Covid 19 pneumonia about a month ago. The patient was treated symptomatically, improving significantly. The patient to [facility] on the [place] and currently the patient complaining of increased shortness of breath and cough and sputum production. Patient taken to [facility] and admitted for further evaluation and treatment. The chest x-ray showed evidence of bilateral interstitial shadows, possibly super added bronchopneumonia. The patient admitted to the hospital for further evaluation and treatment. There is no history of fever, rigors or chills. No history of headache, loss of consciousness, seizures. PAST MEDICAL HISTORY: History of Covid 19 pneumonia, history of asthma, atrial fibrillation, CAD, COPD, CVA, TIA, GERD, hyperlipidemia, myocardial infarction, DJD. MEDICATIONS: Home medications are: Singulair, methyl salicylate, losartan, DuoNeb, Pepcid, Voltaren, Depo-Medrol, Symbicort, Cepacol, Lipitor, Eliquis, Cordarone, Ventolin. Tylenol #3, acetaminophen. ALLERGIES: NAPROSYN, ANTIBIOTICS, ZITHROMAX. FAMILY HISTORY: History of CAD, history of diabetes type 2, history of CAD/CABG. SOCIAL HISTORY: Previous history of smoking. No history of alcohol intake. REVIEW OF SYSTEMS: ENT: No diminished hearing. No diminished vision. CARDIOVASCULAR system: As mentioned earlier. RESPIRATORY: As mentioned earlier. GI: As mentioned earlier. : No dysuria. NERVOUS SYSTEM: No numbness or weakness. ALLERGY/IMMUNOLOGY: As mentioned earlier. HEMATOLOGY/ONCOLOGY: No anemia. ENDOCRINE: No history of diabetes or hypothyroidism. CONSTITUTIONAL: As mentioned earlier. DERMATOLOGY: Negative. RHEUMATOLOGY: Negative. PSYCHIATRIC: As mentioned earlier. PHYSICAL EXAMINATION: The patient is alert, oriented x3. The pulse is 74. Blood pressure 140/69, respiration 16, temperature normal. Pulse ox currently 94% on 3L. HEENT: Conjunctivae normal. Oral mucosa moist. NECK is no jugular venous distention. No carotid bruit. No lymph node enlargement. CARDIOVASCULAR systems: S1, S2 muffled. RESPIRATION: Breath sounds diminished in the bases. A few scattered rhonchi and crackles. ABDOMEN: Soft, obese, nontender. No mass palpable. LEGS: No edema. No swelling. NERVOUS SYSTEM: Higher functions as mentioned earlier. Moves all 4 limbs. No focal motor or sensory deficits. LYMPHATICS: No lymph nodes palpable in the neck, axillae or groin. SKIN: No ulcer, no rash and no bleeding. JOINTS: No active deforming arthropathy. LABS: WBC 9.3, hemoglobin 11.3. Eosinophils 2.7. ASSESSMENT: 1. Chronic obstructive pulmonary disease acute exacerbation, acute bilateral pneumonia possibly bronchopneumonia. 2. Recent COVID-19 pneumonia. 3. Elevated procalcitonin. 4. Elevated AST/ALT, possibly mild hepatitis. 5. History of atrial fibrillation, chronic. 6. History of asthma. 7. Chronic obstructive pulmonary disease. 8. History of coronary artery disease. 9. History of cerebrovascular accident/transient ischemic attack. 10.History of gastroesophageal reflux disease. 11.Hyperlipidemia. 12.Myocardial infarction. 13.History of degenerative joint disease. 14.History of recent COVID-19 pneumonia. 15.History of coronary artery disease/stent. 16.History of anxiety, depression. 17.Chronic hypoxic respiratory failure. 18.FULL CODE. RECOMMENDATIONS AND DISCUSSION: This 65-year-old woman who presented with multiple complex medical issues, recommend to the current medications, symptomatic treatment. Intensive bronchodilator treatment. Resume the home medications, IV steroids, empiric antibiotics. Guarded prognosis because of multiple complex medical issues. Further recommendations to follow. A copy of dictation being forwarded to Dr. Crystal who is following the patient in the outpatient setting as well as Dr. Pichardo. MMODL / IJN: [id number] /
[2021-05-13] MEDS: FAMOTIDINE 20 MG TAB PO SCH (18:15)
[2021-05-13] MEDS: FORMOTEROL FUMARATE 20 MCG/2 ML NEBU INHALATION SCH (20:09)
[2021-05-13] MEDS: BUDESONIDE 1 MG/2 ML NEBU INHALATION SCH (20:09)
[2021-05-13] MEDS: MONTELUKAST 10 MG TAB PO SCH (22:19)
[2021-05-13] MEDS: APIXABAN 5 MG TAB PO SCH (22:19)
[2021-05-13] MEDS: ATORVASTATIN 40 MG TAB PO SCH (22:19)
[2021-05-13 22:30] LABS: Appearance,Urine Clear (Clear); Bilirubin,Urine Negative (Negative); Blood,Urine Negative (Negative); Color,Urine Yellow; Glucose,Urine (UA) Negative (Negative); Ketones,Urine Negative (Negative); Leukocyte Esterase,Urine Negative (Negative); Nitrite,Urine Negative (Negative); PH, Urine 6.5 (5.0-8.0); Protein,Urine Trace (Negative); Specific Gravity,Urine 1.019 (1.001-1.035)
[2021-05-14] MEDS: AMIODARONE 200 MG TAB PO SCH ×3 (00:02→22:08)
[2021-05-14] MEDS: AMOXIC-POT CLAV 875-125MG 1 EACH TAB PO SCH ×4 (00:02→22:12)
[2021-05-14] MEDS: IPRATROPIUM-ALBUTEROL 3 ML NEB INHALATION PRN ×2 (01:56→23:28)
[2021-05-14 01:59] LABS: African American GFR (CKD) 119.4 (60.0-200.0); Albumin 3.6 g/dL (3.80-4.90); Albumin/Globulin Ratio 1.16 (1.60-3.17); Anion Gap 9.9 mmol/L (4.00-12.00); Calcium 8.9 mg/dL (8.7-10.3); Carbon Dioxide 27.1 mmol/L (21.6-31.8); Globulin 3.1 g/dL (1.6-3.3); Potassium 4.6 mmol/L (3.5-5.5); Total Bilirubin 0.2 mg/dL (0.2-1.2); Total Protein 6.7 g/dL (6.2-8.2)
[2021-05-14] MEDS: methylPREDNISolone SOD SUCCI 40 MG/ML 1 ML VIAL IV SCH ×4 (05:28→23:53)
[2021-05-14] MEDS: BUDESONIDE 1 MG/2 ML NEBU INHALATION SCH ×2 (07:42→19:14)
[2021-05-14] MEDS: IPRATROPIUM-ALBUTEROL 3 ML NEB INHALATION SCH ×4 (07:42→19:14)
[2021-05-14] MEDS: FORMOTEROL FUMARATE 20 MCG/2 ML NEBU INHALATION SCH ×2 (07:44→19:21)
[2021-05-14] MEDS: APIXABAN 5 MG TAB PO SCH ×2 (09:05→22:08)
[2021-05-14] MEDS: LOSARTAN 25 MG TAB PO SCH (09:05)
[2021-05-14] MEDS: FAMOTIDINE 20 MG TAB PO SCH ×2 (09:06→17:29)
[2021-05-14] MEDS: [UNRECOGNIZED DRUG - OTHER] TRANSDERM SCH (09:07)
--- NOTE | 2021-05-14 09:31 | P.PN ---
Subjective Progress Note Date: 05/14/21 Principal diagnosis: Shortness of breath. Pulmonary consultation dated 05/13/2021. 65-year-old female who resides at [facility] on the [facility]. She presents to the emergency room by EMS, with complaints of increasing shortness of breath, chest tightness, cough, and phlegm production. The patient has a history of atrial fibrillation, COPD, and prior episode of coronavirus pneumonia. Typically she is on 2 L nasal cannula. They apparently increased her up to 3 L when she was having shortness of breath. She hasn't been feeling well for about 2-1/2 weeks. No chest pain or chest discomfort. No nausea, vomiting, diarrhea or abdominal pain. She recently finished a course of Levaquin. Currently not on any antibiotics. She has not been vaccinated against coronavirus. The chest x-ray shows diffuse bilateral infiltrates, some of which may be related to previous episode of coronavirus pneumonia. 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 This a few other areas which are a bit more dense. White count 9.8, hemoglobin 11.3, hematocrit 34.8, and platelet count is normal. PT, INR, and PTT are normal. Sodium potassium chloride normal. CO2 is 33. Anion gap 5, BUN 12, creatinine 0.57. The patient's N-terminal proBNP is 234. Troponin is negative. Progress note dated 05/14/2021. 65-year-old female who we saw yesterday in consultation. She was in the emergency Department we saw her with complaints of increasing shortness of hortencia th, chest tightness, cough, and phlegm production. The patient was essentially admitted with a diagnosis of COPD exacerbation. 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 No new labs today other than she was screened for coronavirus infection. Chest x-ray, and medications were all reviewed yesterday. Objective - Vital Signs Vital signs: Vital Signs Temp 98.1 F 05/14/21 07:00 Pulse 79 05/14/21 07:44 Resp 16 05/14/21 07:00 BP 151/54 05/14/21 07:00 Pulse Ox 94 L 05/14/21 07:00 Intake & Output 05/13/21 05/14/21 05/14/21 18:59 06:59 18:59 Intake Total 240 100 Output Total 151 Balance 89 100 Weight 82.554 kg Intake: Oral 240 100 Output: Urine 150 Stool 1 Other: Voiding Method Diaper Incontinent # Voids 2 - Exam No acute distress, oriented 3. Currently on 3 L nasal O2, with a saturation of 94%. No audible wheezing, use of accessory muscles, or conversational dyspnea. Her cough is wet and congested. HEENT examination is grossly unremarkable. Neck supple. Full range of motion. No adenopathy thyromegaly or neck vein distention. Cardiovascular examination reveals regular rhythm rate. S1-S2 normal. No S3 or S4. No discernible murmur noted. Heart sounds are distant. Heart rate 79 bpm. Lungs reveal scattered bilateral rhonchi. A few scattered crackles. No wheezes. Breath sounds equal bilaterally. Abdomen soft bowel sounds are heard. No masses or tenderness. Extremities are intact. No cyanosis clubbing or edema. Skin is without rash or lesion. Neurologic examination is brief but nonfocal. - Labs CBC & Chem 7: 05/13/21 07:00 05/13/21 16:29 Labs: Abnormal Lab Results - Last 24 Hours (Table) 05/13/21 05/13/21 05/13/21 Range/Units 10:08 16:29 17:20 Creatinine 0.5 L (0.6-1.5) mg/dL BUN/Creatinine Ratio 28.00 H (12.00-20.00) Ratio Glucose 160 H (70-110) mg/dL AST 125 H (13-35) U/L ALT 130 H (8-44) U/L Albumin 3.60 L (3.80-4.90) g/dL Albumin/Globulin Ratio 1.16 L (1.60-3.17) g/dL Procalcitonin 0.17 H (0.02-0.09) ng/mL Urine Protein Trace H (Negative) Microbiology - Last 24 Hours (Table) 05/13/21 11:00 Gram Stain - Preliminary Sputum Sputum Culture - Preliminary Assessment and Plan Assessment: COPD exacerbation complicated by possible purulent tracheobronchitis/broncho pneumonia. Recent history of COVID 19 pneumonia, with possible postinflammatory pulmonary fibrotic changes on chest x-ray. History of atrial fibrillation. History of CAD. History of CVA. History of gastroesophageal reflux disease. Hyperlipidemia. Myocardial infarction. Status post clipping of a brain aneurysm, 2000. Chronic hypoxemic respiratory failure. History of scoliosis. CAD with previous stent placement. Plan: Plan dated 05/13/2021. The patient will be placed on DuoNeb's, Symbicort, and Solu-Medrol. In addition, she should get antibiotic. A pro-calcitonin level be done. Additional recommendations and suggestions are forthcoming. Prognosis is guarded. The patient has not yet been vaccinated. It has been more than 90 days since she tested positive for coronavirus. She could receive the vaccine at this time. We will continue to follow make recommendations where appropriate. Plan dated 05/14/2021. The patient seemed to be doing a bit better today than yesterday. She remains on DuoNeb's, Symbicort, and Solu-Medrol. We will continue to follow make recommendations where appropriate. We will see her in the office post discharge, for complete pulmonary function testing. Some of her changes on chest x-ray may be chronic in nature and related to postinflammatory pulmonary fibrosis. Her coronavirus screen on this admission was negative. Time with Patient: Less than 30
[2021-05-14 10:24] LABS: Basophils # (A) 0.01 X 10*3/uL (0.00-0.10); Basophils % (A) 0.1 %; Eosinophils # (A) 0 X 10*3/uL (0.04-0.35); Eosinophils % (A) 0 %; HCT 36.3 % (37.2-46.3); Lymphocytes # (A) 0.81 X 10*3/uL (0.90-5.00); Lymphocytes % (A) 9.5 %; MCH 26.4 pg (27.0-32.0); MCHC 30.3 g/dL (32.0-37.0); MCV 87.1 fL (80.0-97.0); Mean Platelet Volume 11.1 fL (9.5-12.2); Monocytes # (A) 0.38 X 10*3/uL (0.20-1.00); Monocytes % (A) 4.5 %; Neutrophils # (A) 7.26 X 10*3/uL (1.80-7.70); Neutrophils % (A) 85.1 %; Platelet Count 345 X 10*3/uL (140-440); RBC 4.17 X 10*6/uL (4.10-5.20); RDW 16.6 % (11.5-14.5); WBC 8.53 X 10*3/uL (4.50-10.00)
[2021-05-14 12:16] LABS: African American GFR (CKD) 119.4 (60.0-200.0); Anion Gap 11.2 mmol/L (4.00-12.00); Calcium 9.4 mg/dL (8.7-10.3); Carbon Dioxide 26.8 mmol/L (21.6-31.8)
--- NOTE | 2021-05-14 15:59 | P.PN ---
Subjective Progress Note Date: 05/14/21 This is a 65-year-old female who was recently admitted with increased shortness of breath and chronic obstructive pulmonary disease acute exacerbation and is being closely monitored. Pulmonary following. Patient is maintained on breathing inhalational treatments along with IV steroids and will continue at this time. She was also started on oral Augmentin as chest x-ray showed evidence of bilateral interstitial shadows possibly bronchopneumonia. Patient continues to be extremely short of breath and dyspneic with minimal exertion. Patient was staying at [facility] on the [place] for PT/OT therapy status post COVID- 19 pneumonia and developed extreme weakness and gait dysfunction. Patient is currently afebrile. Patient does have a cough with phlegm production and audible expiratory wheezing noted on exam. Review of systems: Constitutional: No reports of fatigue, fever, or chills Cardiovascular: No reports of chest pain or palpitations Respiratory: Reports continued shortness of breath and cough with increased shortness of breath on exertion GI: No reports of nausea, vomiting, or diarrhea : No reports of dysuria or retention Neurovascular: Reports continued generalized weakness All medications have been reviewed Objective - Vital Signs Vital signs: Vital Signs Temp 98.1 F 05/14/21 07:00 Pulse 79 05/14/21 07:44 Resp 16 05/14/21 07:00 BP 151/54 05/14/21 07:00 Pulse Ox 94 L 05/14/21 07:00 Intake & Output 05/13/21 05/14/21 05/14/21 18:59 06:59 18:59 Intake Total 240 100 Output Total 151 Balance 89 100 Weight 82.554 kg Intake: Oral 240 100 Output: Urine 150 Stool 1 Other: Voiding Method Diaper Incontinent # Voids 2 - Exam Gen: This is a 65-year-old female sitting up in bed awake, alert and oriented 3, well-developed, well-nourished. HEENT: Head is atraumatic, normocephalic. Pupils equal, round. Sclerae is anicteric. NECK: Supple. No JVD. No lymphadenopathy. No thyromegaly. LUNGS: Diminished breath sounds bilaterally with some scattered rhonchi and expiratory wheezing noted on exam No intercostal retractions. HEART: S1, S2 are muffled ABDOMEN: Soft. Bowel sounds are present. No masses. No tenderness. EXTREMITIES: No pedal edema. No calf tenderness. NEUROLOGICAL: Patient is awake, alert and oriented x3. Diffusely weak. - Labs CBC & Chem 7: 05/14/21 06:32 05/14/21 06:32 Labs: Abnormal Lab Results - Last 24 Hours (Table) 05/13/21 05/13/21 05/13/21 Range/Units 10:08 16:29 17:20 Creatinine 0.5 L (0.6-1.5) mg/dL BUN/Creatinine Ratio 28.00 H (12.00-20.00) Ratio Glucose 160 H (70-110) mg/dL AST 125 H (13-35) U/L ALT 130 H (8-44) U/L Albumin 3.60 L (3.80-4.90) g/dL Albumin/Globulin Ratio 1.16 L (1.60-3.17) g/dL Procalcitonin 0.17 H (0.02-0.09) ng/mL Urine Protein Trace H (Negative) Microbiology - Last 24 Hours (Table) 05/13/21 11:00 Gram Stain - Preliminary Sputum Sputum Culture - Preliminary Assessment and Plan Assessment: Chronic obstructive pulmonary disease acute exacerbation, acute bilateral pneumonia possibly bronchopneumonia Reason: 19 pneumonia Elevated pro calcitonin Elevated AST, ALT, possibly mild hepatitis History of atrial fibrillation, chronic COPD/asthma history History of coronary artery disease History of CVA, TIA Gastroesophageal reflux disease Hyperlipidemia history of degenerative joint disease Anxiety/depression Chronic hypoxic respiratory failure Full code Plan: Continue with current medications and continued with breathing inhalational treatments along with IV steroids. Pulmonary following. First the patient increase activity as tolerated and will have PT/OT reevaluate the patient. She continues to be weak and states she is very unsteady and unable to walk since her recent history of COVID-19 pneumonia. She was staying at [facility] on [facility] and would like to return there on discharge for continued PT/OT therapy for strength and mobility. Patient is currently on 3 L oxygen via nasal cannula which is her baseline. She is extremely dyspneic with minimal exertion and will continue to monitor closely. Social work to follow this patient will be returning to [facility] on [facility] once discharged.
[2021-05-14] MEDS: Acetaminophen-Codeine 300-30mg TAB PO PRN (22:07)
[2021-05-14] MEDS: MONTELUKAST 10 MG TAB PO SCH (22:08)
[2021-05-14] MEDS: BENZOCAINE/MENTHOL LOZENG 1 EACH LOZENGE MUCOUS MEM PRN (22:08)
[2021-05-14] MEDS: ATORVASTATIN 40 MG TAB PO SCH (22:08)
[2021-05-15] MEDS: IPRATROPIUM-ALBUTEROL 3 ML NEB INHALATION PRN (04:34)
[2021-05-15] MEDS: BENZOCAINE/MENTHOL LOZENG 1 EACH LOZENGE MUCOUS MEM PRN ×2 (04:43→20:19)
[2021-05-15] MEDS: Acetaminophen-Codeine 300-30mg TAB PO PRN ×3 (05:56→20:19)
[2021-05-15] MEDS: methylPREDNISolone SOD SUCCI 40 MG/ML 1 ML VIAL IV SCH ×4 (05:56→23:22)
[2021-05-15] MEDS: BUDESONIDE 1 MG/2 ML NEBU INHALATION SCH ×2 (07:48→19:50)
[2021-05-15] MEDS: IPRATROPIUM-ALBUTEROL 3 ML NEB INHALATION SCH ×4 (07:48→19:50)
[2021-05-15] MEDS: FORMOTEROL FUMARATE 20 MCG/2 ML NEBU INHALATION SCH ×2 (07:48→19:50)
[2021-05-15] MEDS: AMIODARONE 200 MG TAB PO SCH ×2 (08:32→20:19)
[2021-05-15] MEDS: APIXABAN 5 MG TAB PO SCH ×2 (08:32→20:18)
[2021-05-15] MEDS: FAMOTIDINE 20 MG TAB PO SCH ×2 (08:32→17:35)
[2021-05-15] MEDS: AMOXIC-POT CLAV 875-125MG 1 EACH TAB PO SCH ×2 (08:32→20:19)
[2021-05-15] MEDS: LOSARTAN 25 MG TAB PO SCH (08:32)
[2021-05-15] MEDS: [UNRECOGNIZED DRUG - OTHER] TRANSDERM SCH (08:33)
--- NOTE | 2021-05-15 10:42 | P.PN ---
Subjective Progress Note Date: 05/15/21 Principal diagnosis: Shortness of breath. Pulmonary consultation dated 05/13/2021. 65-year-old female who resides at [facility] on the [facility]. She presents to the emergency room by EMS, with complaints of increasing shortness of breath, chest tightness, cough, and phlegm production. The patient has a history of atrial fibrillation, COPD, and prior episode of coronavirus pneumonia. Typically she is on 2 L nasal cannula. They apparently increased her up to 3 L when she was having shortness of breath. She hasn't been feeling well for about 2-1/2 weeks. No chest pain or chest discomfort. No nausea, vomiting, diarrhea or abdominal pain. She recently finished a course of Levaquin. Currently not on any antibiotics. She has not been vaccinated against coronavirus. The chest x-ray shows diffuse bilateral infiltrates, some of which may be related to previous episode of coronavirus pneumonia. 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 This a few other areas which are a bit more dense. White count 9.8, hemoglobin 11.3, hematocrit 34.8, and platelet count is normal. PT, INR, and PTT are normal. Sodium potassium chloride normal. CO2 is 33. Anion gap 5, BUN 12, creatinine 0.57. The patient's N-terminal proBNP is 234. Troponin is negative. Progress note dated 05/14/2021. 65-year-old female who we saw yesterday in consultation. She was in the emergency Department we saw her with complaints of increasing shortness of hortencia th, chest tightness, cough, and phlegm production. The patient was essentially admitted with a diagnosis of COPD exacerbation. 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 No new labs today other than she was screened for coronavirus infection. Chest x-ray, and medications were all reviewed yesterday. Progress note dated 05/15/2021. 65-year-old female admitted with a diagnosis of COPD exacerbation. The patient is feeling better. 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 The patient still coughing up phlegm. She is much less bronchospastic. She states that her shortness of breath is improved. She denies any fever or chills. No chest pain or chest discomfort. She denies hemoptysis. No new lab data today. The lab data from May 14 is reviewed. The patient's on appropriate medications including DuoNeb, Solu-Medrol, Singulair, Pulmicort, and formoterol. In addition, the patient's on Augmentin. Objective - Vital Signs Vital signs: Vital Signs Temp 98.2 F 05/15/21 07:00 Pulse 74 05/15/21 08:07 Resp 18 05/15/21 07:00 BP 137/71 05/15/21 07:00 Pulse Ox 94 L 05/15/21 07:49 Intake & Output 05/14/21 05/15/21 05/15/21 18:59 06:59 18:59 Intake Total 300 540 200 Balance 300 540 200 Intake: Oral 300 540 200 Other: Voiding Method Diaper Incontinent # Voids 1 3 # Bowel Movements 1 - Exam No acute distress, oriented 3. Currently on 3 L nasal O2, with a saturation of 94%. No audible wheezing, use of accessory muscles, or conversational dyspnea. Her cough is wet and congested. HEENT examination is grossly unremarkable. Neck supple. Full range of motion. No adenopathy thyromegaly or neck vein distention. Cardiovascular examination reveals regular rhythm rate. S1-S2 normal. No S3 or S4. No discernible murmur noted. Heart sounds are distant. Heart rate 74 bpm. Lungs reveal scattered bilateral rhonchi. A few scattered crackles. No wheezes. Breath sounds equal bilaterally. Breath sounds are bit improved today. Abdomen soft bowel sounds are heard. No masses or tenderness. Extremities are intact. No cyanosis clubbing or edema. Skin is without rash or lesion. Neurologic examination is brief but nonfocal. - Labs CBC & Chem 7: 05/14/21 06:32 05/14/21 06:32 Labs: Abnormal Lab Results - Last 24 Hours (Table) 05/14/21 Range/Units 06:32 Creatinine 0.5 L (0.6-1.5) mg/dL BUN/Creatinine Ratio 34.00 H (12.00-20.00) Ratio Glucose 133 H (70-110) mg/dL Microbiology - Last 24 Hours (Table) 05/13/21 11:00 Gram Stain - Final Sputum Sputum Culture - Final Assessment and Plan Assessment: COPD exacerbation complicated by possible purulent tracheobron chitis/bronchopneumonia. Recent history of COVID 19 pneumonia, with possible postinflammatory pulmonary fibrotic changes on chest x-ray. History of atrial fibrillation. History of CAD. History of CVA. History of gastroesophageal reflux disease. Hyperlipidemia. Myocardial infarction. Status post clipping of a brain aneurysm, 2000. Chronic hypoxemic respiratory failure. History of scoliosis. CAD with previous stent placement. Plan: Plan dated 05/13/2021. The patient will be placed on DuoNeb's, Symbicort, and Solu-Medrol. In addition, she should get antibiotic. A pro-calcitonin level be done. Additional recommendations and suggestions are forthcoming. Prognosis is guarded. The patient has not yet been vaccinated. It has been more than 90 days since she tested positive for coronavirus. She could receive the vaccine at this time. We will continue to follow make recommendations where appropriate. Plan dated 05/14/2021. The patient seemed to be doing a bit better today than yesterday. She remains on DuoNeb's, Symbicort, and Solu-Medrol. We will continue to follow make recommendations where appropriate. We will see her in the office post discharge, for complete pulmonary function testing. Some of her changes on chest x-ray may be chronic in nature and related to postinflammatory pulmonary fibrosis. Her coronavirus screen on this admission was negative. Plan dated 05/15/2021. Currently, the patient's doing much better. She still has a way to go. I suspect she'll be likely discharge on Thursday. No additional recommendations are made. Medications are appropriate. No changes were made to her medications today. Overall prognosis is guarded. We will continue to follow the patient and make recommendations where appropriate. Time with Patient: Less than 30
--- NOTE | 2021-05-15 15:27 | P.PN ---
Subjective Progress Note Date: 05/15/21 This is a 65-year-old female who was recently admitted with increased shortness of breath and chronic obstructive pulmonary disease acute exacerbation and is being closely monitored. Pulmonary following. Patient is maintained on breathing inhalational treatments along with IV steroids and will continue at this time. She was also started on oral Augmentin as chest x-ray showed evidence of bilateral interstitial shadows possibly bronchopneumonia. Patient continues to be extremely short of breath and dyspneic with minimal exertion. Patient was staying at [facility] on the [place] for PT/OT therapy status post COVID- 19 pneumonia and developed extreme weakness and gait dysfunction. Patient is currently afebrile. Patient does have a cough with phlegm production and audible expiratory wheezing noted on exam. 05/15/2021 Patient is seen in follow-up this morning with no acute overnight issues. Pat jamal continues to be dyspneic with exertion with a cough and phlegm production noted. Sputum culture showing no staph aureus or pseudomonas aeruginosa with some moderate gram-positive bacilli and moderate normal respiratory luis patient is maintained on oral Augmentin and will continue. Patient also continues on breathing inhalational treatments and IV steroids and will continue. Pulmonary following closely. Patient denies any chest pain or palpitations. Patient continues to be weak and requiring assistance. [facility] and will be returning to [facility] once more stable. Review of systems: Constitutional: No reports of fatigue, fever, or chills Cardiovascular: No reports of chest pain or palpitations Respiratory: Reports continued shortness of breath and cough with shortness of breath on exertion GI: No reports of nausea, vomiting, or diarrhea : No reports of dysuria or retention Neurovascular: Reports continued generalized weakness All medications have been reviewed Physical exam: Gen: This is a 65-year-old female sitting up in bed awake, alert and oriented 3, well-developed, well-nourished. HEENT: Head is atraumatic, normocephalic. Pupils equal, round. Sclerae is anicteric. NECK: Supple. No JVD. No lymphadenopathy. No thyromegaly. LUNGS: Diminished breath sounds bilaterally with some scattered rhonchi and expiratory wheezing noted on exam No intercostal retractions. HEART: S1, S2 are muffled ABDOMEN: Soft. Bowel sounds are present. No masses. No tenderness. EXTREMITIES: No pedal edema. No calf tenderness. NEUROLOGICAL: Patient is awake, alert and oriented x3. Diffusely weak. Assessment and plan: Chronic obstructive pulmonary disease acute exacerbation, acute bilateral pneumonia possibly bronchopneumonia Recent Covid 19 pneumonia Elevated pro calcitonin Elevated AST, ALT, possibly mild hepatitis History of atrial fibrillation, chronic COPD/asthma history History of coronary artery disease History of CVA, TIA Gastroesophageal reflux disease Hyperlipidemia history of degenerative joint disease Anxiety/depression Chronic hypoxic respiratory failure Full code Plan: Continue with current medications and continued with breathing inhalational treatments along with IV steroids. Pulmonary following. Patient continues to be weak and states she is very unsteady and unable to walk since her recent history of COVID-19 pneumonia. She was staying at [facility] on [facility] and would like to return there on discharge for continued PT/OT therapy for strength and mobility. Patient is currently on 3 L oxygen via nasal cannula which is her baseline. Patient is not back to her baseline respiratory reese and will continue with current medication regimen and breathing treatments as needed as well. She is extremely dyspneic with minimal exertion and will continue to monitor closely. Social work to follow as this patient will be returning to [facility] once stabilized and discharged. Will repeat a.m. labs and continue to monitor closely. Objective - Vital Signs Vital signs: Vital Signs Temp 98.2 F 05/15/21 07:00 Pulse 74 05/15/21 08:07 Resp 18 05/15/21 07:00 BP 137/71 05/15/21 07:00 Pulse Ox 94 L 05/15/21 07:49 Intake & Output 05/14/21 05/15/21 05/15/21 18:59 06:59 18:59 Intake Total 300 540 Balance 300 540 Intake: Oral 300 540 Other: Voiding Method Diaper Incontinent # Voids 1 3 # Bowel Movements 1 - Labs CBC & Chem 7: 05/14/21 06:32 05/14/21 06:32 Labs: Abnormal Lab Results - Last 24 Hours (Table) 05/14/21 05/14/21 Range/Units 06:32 06:32 Hgb 11.0 L (12.0-15.0) g/dL Hct 36.3 L (37.2-46.3) % MCH 26.4 L (27.0-32.0) pg MCHC 30.3 L (32.0-37.0) g/dL RDW 16.6 H (11.5-14.5) % Immature Gran # 0.07 H (0.00-0.04) X 10*3/uL Lymphocytes # 0.81 L (0.90-5.00) X 10*3/uL Eosinophils # 0 L (0.04-0.35) X 10*3/uL Creatinine 0.5 L (0.6-1.5) mg/dL BUN/Creatinine Ratio 34.00 H (12.00-20.00) Ratio Glucose 133 H (70-110) mg/dL
[2021-05-15] MEDS: MONTELUKAST 10 MG TAB PO SCH (20:18)
[2021-05-15] MEDS: ATORVASTATIN 40 MG TAB PO SCH (20:19)
[2021-05-16] MEDS: IPRATROPIUM-ALBUTEROL 3 ML NEB INHALATION PRN ×2 (00:53→04:20)
[2021-05-16] MEDS: BENZOCAINE/MENTHOL LOZENG 1 EACH LOZENGE MUCOUS MEM PRN (01:42)
[2021-05-16] MEDS: Acetaminophen-Codeine 300-30mg TAB PO PRN ×3 (01:42→19:19)
[2021-05-16] MEDS: methylPREDNISolone SOD SUCCI 40 MG/ML 1 ML VIAL IV SCH ×4 (05:31→23:18)
[2021-05-16] MEDS: IPRATROPIUM-ALBUTEROL 3 ML NEB INHALATION SCH ×4 (07:42→19:38)
[2021-05-16] MEDS: BUDESONIDE 1 MG/2 ML NEBU INHALATION SCH ×2 (07:42→19:38)
[2021-05-16] MEDS: FORMOTEROL FUMARATE 20 MCG/2 ML NEBU INHALATION SCH ×2 (07:42→19:38)
[2021-05-16] MEDS: APIXABAN 5 MG TAB PO SCH ×2 (08:15→21:52)
[2021-05-16] MEDS: AMOXIC-POT CLAV 875-125MG 1 EACH TAB PO SCH ×2 (08:15→21:53)
[2021-05-16] MEDS: LOSARTAN 25 MG TAB PO SCH (08:15)
[2021-05-16] MEDS: FAMOTIDINE 20 MG TAB PO SCH ×2 (08:16→18:32)
[2021-05-16] MEDS: AMIODARONE 200 MG TAB PO SCH ×2 (08:16→21:53)
[2021-05-16] MEDS: [UNRECOGNIZED DRUG - OTHER] TRANSDERM SCH (08:16)
--- NOTE | 2021-05-16 13:01 | P.PN ---
Subjective Progress Note Date: 05/16/21 Principal diagnosis: Shortness of breath. Pulmonary consultation dated 05/13/2021. 65-year-old female who resides at [facility] on the [facility]. She presents to the emergency room by EMS, with complaints of increasing shortness of breath, chest tightness, cough, and phlegm production. The patient has a history of atrial fibrillation, COPD, and prior episode of coronavirus pneumonia. Typically she is on 2 L nasal cannula. They apparently increased her up to 3 L when she was having shortness of breath. She hasn't been feeling well for about 2-1/2 weeks. No chest pain or chest discomfort. No nausea, vomiting, diarrhea or abdominal pain. She recently finished a course of Levaquin. Currently not on any antibiotics. She has not been vaccinated against coronavirus. The chest x-ray shows diffuse bilateral infiltrates, some of which may be related to previous episode of coronavirus pneumonia. 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 This a few other areas which are a bit more dense. White count 9.8, hemoglobin 11.3, hematocrit 34.8, and platelet count is normal. PT, INR, and PTT are normal. Sodium potassium chloride normal. CO2 is 33. Anion gap 5, BUN 12, creatinine 0.57. The patient's N-terminal proBNP is 234. Troponin is negative. Progress note dated 05/14/2021. 65-year-old female who we saw yesterday in consultation. She was in the emergency Department we saw her with complaints of increasing shortness of hortencia th, chest tightness, cough, and phlegm production. The patient was essentially admitted with a diagnosis of COPD exacerbation. 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 No new labs today other than she was screened for coronavirus infection. Chest x-ray, and medications were all reviewed yesterday. Progress note dated 05/15/2021. 65-year-old female admitted with a diagnosis of COPD exacerbation. The patient is feeling better. 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 The patient still coughing up phlegm. She is much less bronchospastic. She states that her shortness of breath is improved. She denies any fever or chills. No chest pain or chest discomfort. She denies hemoptysis. No new lab data today. The lab data from May 14 is reviewed. The patient's on appropriate medications including DuoNeb, Solu-Medrol, Singulair, Pulmicort, and formoterol. In addition, the patient's on Augmentin. Progress note dated 05/16/2021. 65-year-old female admitted with a diagnosis of COPD exacerbation. She is again seen today, in room 625. She sitting in a chair at the bedside. She appears in no acute distress. She still has quite a bit of wheezing tightness and congestion the chest, and she is not coughing up much or any phlegm when she does cough. 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 No recent labs today to speak of. Vital signs are stable, within normal blood pressure, heart rate, and respiratory rate. In addition, the patient remains on excellent medications including DuoNeb, Solu-Medrol, Singulair, Pulmicort, and formoterol. Finally, the patient remains on Augmentin twice a day. Objective - Vital Signs Vital signs: Vital Signs Temp 97.7 F 05/16/21 07:00 Pulse 79 05/16/21 11:55 Resp 18 05/16/21 08:00 BP 145/60 05/16/21 07:00 Pulse Ox 98 05/16/21 07:00 Intake & Output 05/15/21 05/16/21 05/16/21 18:59 06:59 18:59 Intake Total 600 540 Balance 600 540 Intake: Oral 600 540 Other: Voiding Method Bedpan Bedpan Diaper Diaper # Voids 1 1 - Exam No acute distress, oriented 3. Currently on 3 L nasal O2, with a saturation of 98%. No audible wheezing, use of accessory muscles, or conversational dyspnea. Her cough is wet and congested. HEENT examination is grossly unremarkable. Neck supple. Full range of motion. No adenopathy thyromegaly or neck vein distention. Cardiovascular examination reveals regular rhythm rate. S1-S2 normal. No S3 or S4. No discernible murmur noted. Heart sounds are distant. Heart rate 79 bpm. Lungs reveal scattered bilateral rhonchi. A few scattered crackles. Bilateral expiratory wheezes are appreciated today. Breath sounds equal bilaterally. Breath sounds are bit improved today. Abdomen soft bowel sounds are heard. No masses or tenderness. Extremities are intact. No cyanosis clubbing or edema. Skin is without rash or lesion. Neurologic examination is brief but nonfocal. - Labs CBC & Chem 7: 05/14/21 06:32 05/14/21 06:32 Labs: Microbiology - Last 24 Hours (Table) 05/13/21 11:00 Gram Stain - Final Sputum Sputum Culture - Final Assessment and Plan Assessment: COPD exacerbation complicated by possible purulent tracheobronchitis/bronchopneumonia. Recent history of COVID 19 pneumonia, with possible postinflammatory pulmonary fibrotic changes on chest x-ray. History of atrial fibrillation. History of CAD. History of CVA. History of gastroesophageal reflux disease. Hyperlipidemia. Myocardial infarction. Status post clipping of a brain aneurysm, 2000. Chronic hypoxemic respiratory failure. History of scoliosis. CAD with previous stent placement. Plan: Plan dated 05/13/2021. The patient will be placed on DuoNeb's, Symbicort, and Solu-Medrol. In addition, she should get antibiotic. A pro-calcitonin level be done. Additional recommendations and suggestions are forthcoming. Prognosis is guarded. The patient has not yet been vaccinated. It has been more than 90 days since she tested positive for coronavirus. She could receive the vaccine at this time. We will continue to follow make recommendations where appropriate. Plan dated 05/14/2021. The patient seemed to be doing a bit better today than yesterday. She remains on DuoNeb's, Symbicort, and Solu-Medrol. We will continue to follow make recomm endations where appropriate. We will see her in the office post discharge, for complete pulmonary function testing. Some of her changes on chest x-ray may be chronic in nature and related to postinflammatory pulmonary fibrosis. Her coronavirus screen on this admission was negative. Plan dated 05/15/2021. Currently, the patient's doing much better. She still has a way to go. I suspect she'll be likely discharge on Thursday. No additional recommendations are made. Medications are appropriate. No changes were made to her medications today. Overall prognosis is guarded. We will continue to follow the patient and make recommendations where appropriate. Plan dated 05/16/2021. Currently, the patient remains on excellent medications. She is improving albeit slowly. We will continue with all the same medications without change. Additional recommendations and suggestions are forthcoming. Prognosis is guarded. We will continue to follow the patient and make accommodations where a ppropriate. Time with Patient: Less than 30
--- NOTE | 2021-05-16 16:46 | P.PN ---
Subjective 65-year-old female who was recently admitted with increased shortness of breath and chronic obstructive pulmonary disease acute exacerbation and is being closely monitored. Pulmonary following. Patient is maintained on breathing inhalational treatments along with IV steroids and will continue at this time. She was also started on oral Augmentin as chest x-ray showed evidence of bilateral interstitial shadows possibly bronchopneumonia. Patient continues to be extremely short of breath and dyspneic with minimal exertion. Patient was staying at [facility] [place] the [place] for PT/OT therapy status post COVID-19 pneumonia and developed extreme weakness and gait dysfunction. Patient is currently afebrile. Patient does have a cough with phlegm production and audible expiratory wheezing noted on exam. 05/15/2021 Patient is seen in follow-up this morning with no acute overnight issues. Patient continues to be dyspneic with exertion with a cough and phlegm production noted. Sputum culture showing no staph aureus or pseudomonas aeruginosa with some moderate gram-positive bacilli and moderate normal respiratory luis patient is maintained on oral Augmentin and will continue. Patient also continues on breathing inhalational treatments and IV steroids and will continue. Pulmonary following closely. Patient denies any chest pain or palpitations. Patient continues to be weak and requiring assistance. Patient has not walked much since Covid and will be returning to [facility] once more stable. 05/16/2021 Continue to have significant wheezing although his respiratory status improved in the sense her saturations are better on 3 L of oxygen. Review of systems: Constitutional: No reports of fatigue, fever, or chills Cardiovascular: No reports of chest pain or palpitations Respiratory: Reports continued shortness of breath and cough with shortness of breath on exertion GI: No reports of nausea, vomiting, or diarrhea : No reports of dysuria or retention Neurovascular: Reports continued generalized weakness All medications have been reviewed Physical exam: Gen: This is a 65-year-old female sitting up in bed awake, alert and oriented 3, well-developed, well-nourished. HEENT: Head is atraumatic, normocephalic. Pupils equal, round. Sclerae is anicteric. NECK: Supple. No JVD. No lymphadenopathy. No thyromegaly. LUNGS: Diminished breath sounds bilaterally with some scattered rhonchi and expiratory wheezing noted on exam No intercostal retractions. HEART: S1, S2 are muffled ABDOMEN: Soft. Bowel sounds are present. No masses. No tenderness. EXTREMITIES: No pedal edema. No calf tenderness. NEUROLOGICAL: Patient is awake, alert and oriented x3. Diffusely weak. Assessment and plan: Chronic obstructive pulmonary disease acute exacerbation, acute bilateral pneumonia possibly bronchopneumonia and use to have significant wheezing and uses steroids inhalational treatments. Patient is presently on 3 L of nasal ca nnula. History of atrial fibrillation, chronic presently rate controlled COPD acute exacerbation History of coronary artery disease History of CVA, TIA Gastroesophageal reflux disease Hyperlipidemia history of degenerative joint disease Anxiety/depression Chronic hypoxic respiratory failure Full code Objective - Vital Signs Vital signs: Vital Signs Temp 97.7 F 05/16/21 15:00 Pulse 79 05/16/21 15:38 Resp 18 05/16/21 15:00 BP 132/70 05/16/21 15:00 Pulse Ox 96 05/16/21 15:00 Intake & Output 05/15/21 05/16/21 05/16/21 18:59 06:59 18:59 Intake Total 600 540 Balance 600 540 Intake: Oral 600 540 Other: Voiding Method Bedpan Bedpan Diaper Diaper # Voids 1 1 1 - Labs CBC & Chem 7: 05/14/21 06:32 05/14/21 06:32
[2021-05-16] MEDS: MONTELUKAST 10 MG TAB PO SCH (21:52)
[2021-05-16] MEDS: ATORVASTATIN 40 MG TAB PO SCH (21:52)
[2021-05-17] MEDS: IPRATROPIUM-ALBUTEROL 3 ML NEB INHALATION PRN ×2 (00:10→03:13)
[2021-05-17] MEDS: Acetaminophen-Codeine 300-30mg TAB PO PRN ×3 (04:16→18:19)
[2021-05-17] MEDS: methylPREDNISolone SOD SUCCI 40 MG/ML 1 ML VIAL IV SCH ×2 (05:34→11:58)
[2021-05-17] MEDS: IPRATROPIUM-ALBUTEROL 3 ML NEB INHALATION SCH ×4 (05:51→20:07)
[2021-05-17] MEDS: BUDESONIDE 1 MG/2 ML NEBU INHALATION SCH ×2 (05:51→20:07)
[2021-05-17] MEDS: FORMOTEROL FUMARATE 20 MCG/2 ML NEBU INHALATION SCH ×2 (05:51→20:20)
[2021-05-17] MEDS: FAMOTIDINE 20 MG TAB PO SCH ×2 (08:52→18:18)
[2021-05-17] MEDS: AMOXIC-POT CLAV 875-125MG 1 EACH TAB PO SCH ×2 (08:53→21:18)
[2021-05-17] MEDS: AMIODARONE 200 MG TAB PO SCH ×2 (08:53→21:18)
[2021-05-17] MEDS: LOSARTAN 25 MG TAB PO SCH (08:53)
[2021-05-17] MEDS: APIXABAN 5 MG TAB PO SCH ×2 (08:53→21:18)
[2021-05-17] MEDS: [UNRECOGNIZED DRUG - OTHER] TRANSDERM SCH (08:53)
--- NOTE | 2021-05-17 13:49 | P.PN ---
Subjective Progress Note Date: 05/17/21 Principal diagnosis: Shortness of breath. Pulmonary consultation dated 05/13/2021. 65-year-old female who resides at [facility] on the [facility]. She presents to the emergency room by EMS, with complaints of increasing shortness of breath, chest tightness, cough, and phlegm production. The patient has a history of atrial fibrillation, COPD, and prior episode of coronavirus pneumonia. Typically she is on 2 L nasal cannula. They apparently increased her up to 3 L when she was having shortness of breath. She hasn't been feeling well for about 2-1/2 weeks. No chest pain or chest discomfort. No nausea, vomiting, diarrhea or abdominal pain. She recently finished a course of Levaquin. Currently not on any antibiotics. She has not been vaccinated against coronavirus. The chest x-ray shows diffuse bilateral infiltrates, some of which may be related to previous episode of coronavirus pneumonia. 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 This a few other areas which are a bit more dense. White count 9.8, hemoglobin 11.3, hematocrit 34.8, and platelet count is normal. PT, INR, and PTT are normal. Sodium potassium chloride normal. CO2 is 33. Anion gap 5, BUN 12, creatinine 0.57. The patient's N-terminal proBNP is 234. Troponin is negative. Progress note dated 05/14/2021. 65-year-old female who we saw yesterday in consultation. She was in the emergency Department we saw her with complaints of increasing shortness of hortencia th, chest tightness, cough, and phlegm production. The patient was essentially admitted with a diagnosis of COPD exacerbation. 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 No new labs today other than she was screened for coronavirus infection. Chest x-ray, and medications were all reviewed yesterday. Progress note dated 05/15/2021. 65-year-old female admitted with a diagnosis of COPD exacerbation. The patient is feeling better. 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 The patient still coughing up phlegm. She is much less bronchospastic. She states that her shortness of breath is improved. She denies any fever or chills. No chest pain or chest discomfort. She denies hemoptysis. No new lab data today. The lab data from May 14 is reviewed. The patient's on appropriate medications including DuoNeb, Solu-Medrol, Singulair, Pulmicort, and formoterol. In addition, the patient's on Augmentin. Progress note dated 05/16/2021. 65-year-old female admitted with a diagnosis of COPD exacerbation. She is again seen today, in room 625. She sitting in a chair at the bedside. She appears in no acute distress. She still has quite a bit of wheezing tightness and congestion the chest, and she is not coughing up much or any phlegm when she does cough. 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 No recent labs today to speak of. Vital signs are stable, within normal blood pressure, heart rate, and respiratory rate. In addition, the patient remains on excellent medications including DuoNeb, Solu-Medrol, Singulair, Pulmicort, and formoterol. Finally, the patient remains on Augmentin twice a day. Progress note dated 05/17/2021. 65-year-old female admitted with a diagnosis of COPD exacerbation. She is again seen in room 625. Her progress has been slow. She does appear to be improving. She is less short of breath. Her primary issues included shortness of breath, chest tightness, wheezing and cough. She is coughing up a small amount of phlegm. She is on appropriate medications. No new labs to report today. No recent chest x-ray to report. Objective - Vital Signs Vital signs: Vital Signs Temp 97.8 F 05/17/21 07:00 Pulse 93 05/17/21 11:15 Resp 18 05/17/21 08:00 BP 134/69 05/17/21 07:00 Pulse Ox 98 05/17/21 07:00 Intake & Output 05/16/21 05/17/21 05/17/21 18:59 06:59 18:59 Intake Total 1080 Balance 1080 Intake: Oral 1080 Other: Voiding Method Bedpan Bedpan Bedpan Diaper Diaper Diaper # Voids 1 3 - Exam No acute distress, oriented 3. Currently on 3 L nasal O2, with a saturation of 98%. No audible wheezing, use of accessory muscles, or conversational dyspnea. Her cough is wet and congested. HEENT examination is grossly unremarkable. Neck supple. Full range of motion. No adenopathy thyromegaly or neck vein distention. Cardiovascular examination reveals regular rhythm rate. S1-S2 normal. No S3 or S4. No discernible murmur noted. Heart sounds are distant. Heart rate 93 bpm. Lungs reveal scattered bilateral rhonchi. A few scattered crackles. Bilateral expiratory wheezes are appreciated today. Breath sounds equal bilaterally. Breath sounds are bit improved today. Abdomen soft bowel sounds are heard. No masses or tenderness. Extremities are intact. No cyanosis clubbing or edema. Skin is without rash or lesion. Neurologic examination is brief but nonfocal. - Labs CBC & Chem 7: 05/14/21 06:32 05/14/21 06:32 Assessment and Plan Assessment: COPD exacerbation complicated by possible purulent tracheobron chitis/bronchopneumonia. Recent history of COVID 19 pneumonia, with possible postinflammatory pulmonary fibrotic changes on chest x-ray. History of atrial fibrillation. History of CAD. History of CVA. History of gastroesophageal reflux disease. Hyperlipidemia. Myocardial infarction. Status post clipping of a brain aneurysm, 2000. Chronic hypoxemic respiratory failure. History of scoliosis. CAD with previous stent placement. Plan: Plan dated 05/13/2021. The patient will be placed on DuoNeb's, Symbicort, and Solu-Medrol. In addition, she should get antibiotic. A pro-calcitonin level be done. Additional recommendations and suggestions are forthcoming. Prognosis is guarded. The patient has not yet been vaccinated. It has been more than 90 days since she tested positive for coronavirus. She could receive the vaccine at this time. We will continue to follow make recommendations where appropriate. Plan dated 05/14/2021. The patient seemed to be doing a bit better today than yesterday. She remains on DuoNeb's, Symbicort, and Solu-Medrol. We will continue to follow make recommendations where appropriate. We will see her in the office post discharge, for complete pulmonary function testing. Some of her changes on chest x-ray may be chronic in nature and related to postinflammatory pulmonary fibrosis. Her coronavirus screen on this admission was negative. Plan dated 05/15/2021. Currently, the patient's doing much better. She still has a way to go. I suspect she'll be likely discharge on Thursday. No additional recommendations are made. Medications are appropriate. No changes were made to her medications today. Overall prognosis is guarded. We will continue to follow the patient and make recommendations where appropriate. Plan dated 05/16/2021. Currently, the patient remains on excellent medications. She is improving albeit slowly. We will continue with all the same medications without change. Additional recommendations and suggestions are forthcoming. Prognosis is guarded. We will continue to follow the patient and make accommodations where appropriate. Plan dated 05/17/2021. The patient continues to show daily improvement. She's less bronchospastic. She is coughing less. She's less short of breath. We will continue with current medications. Prognosis is guarded. Additional recommendations and suggestions are forthcoming. We will continue to follow this patient and make recommendations where appropriate. Time with Patient: Less than 30
[2021-05-17 13:54] LABS: ALT 144 U/L (4-34); AST 82 U/L (14-36); African American GFR (CKD) >90 (>60 ml/min/1.73 sqM); Albumin 3.4 g/dL (3.5-5.0); Albumin/Globulin Ratio 1.1; Alkaline Phosphatase 78 U/L (38-126); Anion Gap 7 mmol/L; Blood Urea Nitrogen 23 mg/dL (7-17); Calcium 9.4 mg/dL (8.4-10.2); Carbon Dioxide 30 mmol/L (22-30); Chloride 98 mmol/L (98-107); Glucose 161 mg/dL (74-99); Non-African American GFR(CKD) >90 (>60 ml/min/1.73 sqM); Potassium 4.4 mmol/L (3.5-5.1); Sodium 135 mmol/L (137-145); Total Bilirubin 0.2 mg/dL (0.2-1.3); Total Protein 6.4 g/dL (6.3-8.2)
--- NOTE | 2021-05-17 14:24 | P.PN ---
Subjective 65-year-old female who was recently admitted with increased shortness of breath and chronic obstructive pulmonary disease acute exacerbation and is being closely monitored. Pulmonary following. Patient is maintained on breathing inhalational treatments along with IV steroids and will continue at this time. She was also started on oral Augmentin as chest x-ray showed evidence of bilateral interstitial shadows possibly bronchopneumonia. Patient continues to be extremely short of breath and dyspneic with minimal exertion. Patient was staying at [facility] on the [place] for PT/OT therapy status post COVID-19 pneumonia and developed extreme weakness and gait dysfunction. Patient is currently afebrile. Patient does have a cough with phlegm production and audible expiratory wheezing noted on exam. 05/15/2021 Patient is seen in follow-up this morning with no acute overnight issues. Patient continues to be dyspneic with exertion with a cough and phlegm production noted. Sputum culture showing no staph aureus or pseudomonas aeruginosa with some moderate gram-positive bacilli and moderate normal respiratory luis patient is maintained on oral Augmentin and will continue. Patient also continues on breathing inhalational treatments and IV steroids and will continue. Pulmonary following closely. Patient denies any chest pain or palpitations. Patient continues to be weak and requiring assistance. Patient has not walked much since Covid and will be returning to [facility] once more stable. 05/16/2021 Continue to have significant wheezing although his respiratory status improved in the sense her saturations are better on 3 L of oxygen. 05/17/2021 Patient has significant improvement in her COPD today but still wheezing patient may require one 1 or 2 more days of hospitalization. Patient's liver enzymes are improving at this time. Review of systems: Constitutional: No reports of fatigue, fever, or chills Cardiovascular: No reports of chest pain or palpitations Respiratory: Significant improvement in her shortness of breath GI: No reports of nausea, vomiting, or diarrhea : No reports of dysuria or retention Neurovascular: Reports continued generalized weakness All medications have been reviewed Physical exam: Gen: This is a 65-year-old female sitting up in bed awake, alert and oriented 3, well-developed, well-nourished. HEENT: Head is atraumatic, normocephalic. Pupils equal, round. Sclerae is anicteric. NECK: Supple. No JVD. No lymphadenopathy. No thyromegaly. LUNGS: significantly improved air entry into bilateral lung coles, still has excision can expiratory wheezing HEART: S1, S2 are muffled ABDOMEN: Soft. Bowel sounds are present. No masses. No tenderness. EXTREMITIES: No pedal edema. No calf tenderness. NEUROLOGICAL: Patient is awake, alert and oriented x3. Diffusely weak. Assessment and plan: Chronic obstructive pulmonary disease acute exacerbation, acute bilateral pneumonia possibly bronchopneumonia and use to have significant wheezing and uses steroids inhalational treatments. Patient is presently on 3 L of nasal cannula. Continue systemic steroids and inhalational treatments History of atrial fibrillation, chronic presently rate controlled COPD acute exacerbation History of coronary artery disease History of CVA, TIA Gastroesophageal reflux disease Hyperlipidemia history of degenerative joint disease Anxiety/depression Chronic hypoxic respiratory failure Full code Objective - Vital Signs Vital signs: Vital Signs Temp 97.8 F 05/17/21 07:00 Pulse 93 05/17/21 11:15 Resp 18 05/17/21 08:00 BP 134/69 05/17/21 07:00 Pulse Ox 98 05/17/21 07:00 Intake & Output 05/16/21 05/17/21 05/17/21 18:59 06:59 18:59 Intake Total 1080 Balance 1080 Intake: Oral 1080 Other: Voiding Method Bedpan Bedpan Bedpan Diaper Diaper Diaper # Voids 1 3 - Labs CBC & Chem 7: 05/14/21 06:32 05/17/21 13:06 Labs: Abnormal Lab Results - Last 24 Hours (Table) 05/17/21 Range/Units 13:06 Sodium 135 L (137-145) mmol/L BUN 23 H (7-17) mg/dL Glucose 161 H (74-99) mg/dL AST 82 H (14-36) U/L ALT 144 H (4-34) U/L Albumin 3.4 L (3.5-5.0) g/dL
--- NOTE | 2021-05-17 15:26 | XR ---
EXAMINATION TYPE: XR chest 2V DATE OF EXAM: 05/17/2021 COMPARISON: Chest x-ray 05/13/2021 HISTORY: Pneumonia, COPD TECHNIQUE: Frontal and lateral views of the chest are obtained. FINDINGS: Dominant lung volumes are consistent with patient's history of underlying COPD, interstiti um is increased. No evident pneumothorax or pleural effusion. Cardiac mediastinal silhouette shows a stable appearance. There is some improvement in aeration, less confluent density within the lungs as compared to prior. Aorta is dense. IMPRESSION: Improvement in volume status, aeration within the lungs.
[2021-05-17] MEDS: methylPREDNISolone SOD SUCCI 125 MG/2 ML VIAL IV SCH (18:17)
[2021-05-17] MEDS: ATORVASTATIN 40 MG TAB PO SCH (21:18)
[2021-05-17] MEDS: MONTELUKAST 10 MG TAB PO SCH (21:18)
[2021-05-18] MEDS: IPRATROPIUM-ALBUTEROL 3 ML NEB INHALATION PRN ×2 (00:07→04:37)
[2021-05-18] MEDS: methylPREDNISolone SOD SUCCI 125 MG/2 ML VIAL IV SCH ×4 (00:10→17:51)
[2021-05-18] MEDS: Acetaminophen-Codeine 300-30mg TAB PO PRN ×3 (00:32→19:11)
[2021-05-18] MEDS: FORMOTEROL FUMARATE 20 MCG/2 ML NEBU INHALATION SCH ×2 (07:52→22:09)
[2021-05-18] MEDS: IPRATROPIUM-ALBUTEROL 3 ML NEB INHALATION SCH ×4 (07:52→22:09)
[2021-05-18] MEDS: BUDESONIDE 1 MG/2 ML NEBU INHALATION SCH ×2 (07:52→22:09)
[2021-05-18] MEDS: [UNRECOGNIZED DRUG - OTHER] TRANSDERM SCH (08:29)
[2021-05-18] MEDS: AMIODARONE 200 MG TAB PO SCH ×2 (08:33→21:00)
[2021-05-18] MEDS: LOSARTAN 25 MG TAB PO SCH (08:33)
[2021-05-18] MEDS: APIXABAN 5 MG TAB PO SCH ×2 (08:33→21:00)
[2021-05-18] MEDS: AMOXIC-POT CLAV 875-125MG 1 EACH TAB PO SCH ×2 (08:33→21:00)
[2021-05-18] MEDS: FAMOTIDINE 20 MG TAB PO SCH ×2 (08:33→17:51)
[2021-05-18 09:21] LABS: African American GFR (CKD) 112.4 (60.0-200.0); Albumin 3.3 g/dL (3.80-4.90); Albumin/Globulin Ratio 1.38 (1.60-3.17); Anion Gap 6.6 mmol/L (4.00-12.00); Calcium 8.8 mg/dL (8.7-10.3); Carbon Dioxide 32.4 mmol/L (21.6-31.8); Globulin 2.4 g/dL (1.6-3.3); Potassium 4.2 mmol/L (3.5-5.5); Total Bilirubin 0.2 mg/dL (0.3-1.2); Total Protein 5.7 g/dL (6.2-8.2)
--- NOTE | 2021-05-18 12:08 | P.PN ---
Subjective Progress Note Date: 05/18/21 Principal diagnosis: Shortness of breath. Pulmonary consultation dated 05/13/2021. 65-year-old female who resides at [facility] on the [facility]. She presents to the emergency room by EMS, with complaints of increasing shortness of breath, chest tightness, cough, and phlegm production. The patient has a history of atrial fibrillation, COPD, and prior episode of coronavirus pneumonia. Typically she is on 2 L nasal cannula. They apparently increased her up to 3 L when she was having shortness of breath. She hasn't been feeling well for about 2-1/2 weeks. No chest pain or chest discomfort. No nausea, vomiting, diarrhea or abdominal pain. She recently finished a course of Levaquin. Currently not on any antibiotics. She has not been vaccinated against coronavirus. The chest x-ray shows diffuse bilateral infiltrates, some of which may be related to previous episode of coronavirus pneumonia. 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 This a few other areas which are a bit more dense. White count 9.8, hemoglobin 11.3, hematocrit 34.8, and platelet count is normal. PT, INR, and PTT are normal. Sodium potassium chloride normal. CO2 is 33. Anion gap 5, BUN 12, creatinine 0.57. The patient's N-terminal proBNP is 234. Troponin is negative. Progress note dated 05/14/2021. 65-year-old female who we saw yesterday in consultation. She was in the emergency Department we saw her with complaints of increasing shortness of hortencia th, chest tightness, cough, and phlegm production. The patient was essentially admitted with a diagnosis of COPD exacerbation. 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 No new labs today other than she was screened for coronavirus infection. Chest x-ray, and medications were all reviewed yesterday. Progress note dated 05/15/2021. 65-year-old female admitted with a diagnosis of COPD exacerbation. The patient is feeling better. 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 The patient still coughing up phlegm. She is much less bronchospastic. She states that her shortness of breath is improved. She denies any fever or chills. No chest pain or chest discomfort. She denies hemoptysis. No new lab data today. The lab data from May 14 is reviewed. The patient's on appropriate medications including DuoNeb, Solu-Medrol, Singulair, Pulmicort, and formoterol. In addition, the patient's on Augmentin. Progress note dated 05/16/2021. 65-year-old female admitted with a diagnosis of COPD exacerbation. She is again seen today, in room 625. She sitting in a chair at the bedside. She appears in no acute distress. She still has quite a bit of wheezing tightness and congestion the chest, and she is not coughing up much or any phlegm when she does cough. 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 No recent labs today to speak of. Vital signs are stable, within normal blood pressure, heart rate, and respiratory rate. In addition, the patient remains on excellent medications including DuoNeb, Solu-Medrol, Singulair, Pulmicort, and formoterol. Finally, the patient remains on Augmentin twice a day. Progress note dated 05/17/2021. 65-year-old female admitted with a diagnosis of COPD exacerbation. She is again seen in room 625. Her progress has been slow. She does appear to be improving. She is less short of breath. Her primary issues included shortness of breath, chest tightness, wheezing and cough. She is coughing up a small amount of phlegm. She is on appropriate medications. No new labs to report today. No recent chest x-ray to report. Progress note dated 05/18/2021. 65-year-old female admitted with a diagnosis of COPD exacerbation. She is again seen in room 625. Her progress has been slow, but she has improved since she was first admitted. She is less short of breath. She still coughs. Producing some phlegm. This also chest tightness, wheezing, and chest congestion. The patient's chest x-ray is improved. Labs today include a sodium 140, potassium 4.2, chlorides 101, CO2 32.4, anion gap 6.6, BUN 24, and creatinine 0.6. Objective - Vital Signs Vital signs: Vital Signs Temp 98.0 F 05/18/21 07:00 Pulse 86 05/18/21 11:47 Resp 16 05/18/21 07:00 BP 147/73 05/18/21 07:00 Pulse Ox 97 05/18/21 07:55 Intake & Output 05/17/21 05/18/21 05/18/21 18:59 06:59 18:59 Intake Total 800 Balance 800 Intake: Oral 800 Other: Voiding Method Bedpan Bedside Commode Diaper Bedpan # Voids 2 1 - Exam No acute distress, oriented 3. Currently on 3 L nasal O2, with a saturation of 98%. No audible wheezing, use of accessory muscles, or conversational dyspnea. Her cough is wet and congested. HEENT examination is grossly unremarkable. Neck supple. Full range of motion. No adenopathy thyromegaly or neck vein distention. Cardiovascular examination reveals regular rhythm rate. S1-S2 normal. No S3 or S4. No discernible murmur noted. Heart sounds are distant. Heart rate 85 bpm. Lungs reveal scattered bilateral rhonchi. A few scattered crackles. Bilateral expiratory wheezes are appreciated today. Breath sounds equal bilaterally. Breath sounds have improved daily. Abdomen soft bowel sounds are heard. No masses or tenderness. Extremities are intact. No cyanosis clubbing or edema. Skin is without rash or lesion. Neurologic examination is brief but nonfocal. - Labs CBC & Chem 7: 05/14/21 06:32 05/18/21 05:33 Labs: Abnormal Lab Results - Last 24 Hours (Table) 05/17/21 05/18/21 Range/Units 13:06 05:33 Sodium 135 L (137-145) mmol/L Carbon Dioxide 32.4 H (21.6-31.8) mmol/L BUN 23 H (7-17) mg/dL BUN/Creatinine Ratio 40.00 H (12.00-20.00) Ratio Glucose 161 H 184 H (74-99) mg/dL Total Bilirubin 0.2 L (0.3-1.2) mg/dL AST 82 H 55 H (14-36) U/L ALT 144 H 134 H (4-34) U/L Total Protein 5.7 L (6.2-8.2) g/dL Albumin 3.4 L 3.30 L (3.5-5.0) g/dL Albumin/Globulin Ratio 1.38 L (1.60-3.17) g/dL Assessment and Plan Assessment: COPD exacerbation complicated by possible purulent tracheobronchitis/bronchopneumonia. Recent history of COVID 19 pneumonia, with possible postinflammatory pulmonary fibrotic changes on chest x-ray. History of atrial fibrillation. History of CAD. History of CVA. History of gastroesophageal reflux disease. Hyperlipidemia. Myocardial infarction. Status post clipping of a brain aneurysm, 2000. Chronic hypoxemic respiratory failure. History of scoliosis. CAD with previous stent placement. Plan: Plan dated 05/13/2021. The patient will be placed on DuoNeb's, Symbicort, and Solu-Medrol. In addition, she should get antibiotic. A pro-calcitonin level be done. Additional recommendations and suggestions are forthcoming. Prognosis is guarded. The patient has not yet been vaccinated. It has been more than 90 days since she tested positive for coronavirus. She could receive the vaccine at this time. We will continue to follow make recommendations where appropriate. Plan dated 05/14/2021. The patient seemed to be doing a bit better today than yesterday. She remains on DuoNeb's, Symbicort, and Solu-Medrol. We will continue to follow make recommendations where appropriate. We will see her in the office post discharge, for complete pulmonary function testing. Some of her changes on chest x-ray may be chronic in nature and related to postinflammatory pulmonary fibrosis. Her coronavirus screen on this admission was negative. Plan dated 05/15/2021. Currently, the patient's doing much better. She still has a way to go. I suspect she'll be likely discharge on Thursday. No additional recommendations are made. Medications are appropriate. No changes were made to her medications today. Overall prognosis is guarded. We will continue to follow the patient and make recommendations where appropriate. Plan dated 05/16/2021. Currently, the patient remains on excellent medications. She is improving albeit slowly. We will continue with all the same medications without change. Additional recommendations and suggestions are forthcoming. Prognosis is guarded. We will continue to follow the patient and make accommodations where appropriate. Plan dated 05/17/2021. The patient continues to show daily improvement. She's less bronchospastic. She is coughing less. She's less short of breath. We will continue with current medications. Prognosis is guarded. Additional recommendations and suggestions are forthcoming. We will continue to follow this patient and make recommendations where appropriate. Plan dated 05/18/2021. The patient continues to improve. Her improvement has been slow. Her chest x- ray is improved. Her breathing is better. She's less bronchospastic. She still is having chest congestion and cough. I suspect she will be discharged until Thursday. Her medications are reviewed. From the pulmonary standpoint, she is on Singulair, Solu-Medrol, DuoNeb, formoterol, Pulmicort, and Augmentin. Time with Patient: Less than 30
[2021-05-18 17:43] LABS: Glucose,Whole Blood 139 mg/dL (75-99)
[2021-05-18] MEDS: INSULIN ASPART (NovoLOG) 100 UNIT/ML VIAL SQ SCH ×2 (17:51→20:59)
--- NOTE | 2021-05-18 18:05 | P.PN ---
Subjective 65-year-old female who was recently admitted with increased shortness of breath and chronic obstructive pulmonary disease acute exacerbation and is being closely monitored. Pulmonary following. Patient is maintained on breathing inhalational treatments along with IV steroids and will continue at this time. She was also started on oral Augmentin as chest x-ray showed evidence of bilateral interstitial shadows possibly bronchopneumonia. Patient continues to be extremely short of breath and dyspneic with minimal exertion. Patient was staying at [facility] on the [place] for PT/OT therapy status post COVID-19 pneumonia and developed extreme weakness and gait dysfunction. Patient is currently afebrile. Patient does have a cough with phlegm production and audible expiratory wheezing noted on exam. 05/15/2021 Patient is seen in follow-up this morning with no acute overnight issues. Patient continues to be dyspneic with exertion with a cough and phlegm production noted. Sputum culture showing no staph aureus or pseudomonas aeruginosa with some moderate gram-positive bacilli and moderate normal respiratory luis patient is maintained on oral Augmentin and will continue. Patient also continues on breathing inhalational treatments and IV steroids and will continue. Pulmonary following closely. Patient denies any chest pain or palpitations. Patient continues to be weak and requiring assistance. Patient has not walked much since Covid and will be returning to [facility] once more stable. 05/16/2021 Continue to have significant wheezing although his respiratory status improved in the sense her saturations are better on 3 L of oxygen. 05/17/2021 Patient has significant improvement in her COPD today but still wheezing patient may require one 1 or 2 more days of hospitalization. Patient's liver enzymes are improving at this time. 05/18/2021 Patient has significant wheezing today appears to be bit worse compared to yesterday it Review of systems: Constitutional: No reports of fatigue, fever, or chills Cardiovascular: No reports of chest pain or palpitations Respiratory: Significant improvement in her shortness of breath GI: No reports of nausea, vomiting, or diarrhea : No reports of dysuria or retention Neurovascular: Reports continued generalized weakness All medications have been reviewed Physical exam: Gen: This is a 65-year-old female sitting up in bed awake, alert and oriented 3, well-developed, well-nourished. HEENT: Head is atraumatic, normocephalic. Pupils equal, round. Sclerae is anicteric. NECK: Supple. No JVD. No lymphadenopathy. No thyromegaly. LUNGS: Decreased air entry with significant wheezing today HEART: S1, S2 are muffled ABDOMEN: Soft. Bowel sounds are present. No masses. No tenderness. EXTREMITIES: No pedal edema. No calf tenderness. NEUROLOGICAL: Patient is awake, alert and oriented x3. Diffusely weak. Assessment and plan: Chronic obstructive pulmonary disease acute exacerbation, acute bilateral pneumonia possibly bronchopneumonia and use to have significant wheezing and uses steroids inhalational treatments. Patient is presently on 3 L of nasal cannula. Continue systemic steroids and inhalational treatments History of atrial fibrillation, chronic presently rate controlled COPD acute exacerbation History of coronary artery disease History of CVA, TIA Gastroesophageal reflux disease Hyperlipidemia history of degenerative joint disease Anxiety/depression Chronic hypoxic respiratory failure Full code Objective - Vital Signs Vital signs: Vital Signs Temp 98.0 F 05/18/21 14:35 Pulse 80 05/18/21 16:07 Resp 18 05/18/21 14:35 BP 102/62 05/18/21 14:35 Pulse Ox 95 05/18/21 14:35 Intake & Output 05/17/21 05/18/21 05/18/21 18:59 06:59 18:59 Intake Total 800 Balance 800 Intake: Oral 800 Other: Voiding Method Bedpan Bedside Commode Bedside Commode Diaper Bedpan Bedpan # Voids 2 1 1 - Labs CBC & Chem 7: 05/14/21 06:32 05/18/21 05:33 Labs: Abnormal Lab Results - Last 24 Hours (Table) 05/18/21 05/18/21 Range/Units 05:33 17:42 Carbon Dioxide 32.4 H (21.6-31.8) mmol/L BUN/Creatinine Ratio 40.00 H (12.00-20.00) Ratio Glucose 184 H (70-110) mg/dL POC Glucose (mg/dL) 139 H (75-99) mg/dL Total Bilirubin 0.2 L (0.3-1.2) mg/dL AST 55 H (13-35) U/L ALT 134 H (8-44) U/L Total Protein 5.7 L (6.2-8.2) g/dL Albumin 3.30 L (3.80-4.90) g/dL Albumin/Globulin Ratio 1.38 L (1.60-3.17) g/dL
[2021-05-18 19:23] LABS: Glucose,Whole Blood 163 mg/dL (75-99)
[2021-05-18] MEDS: ATORVASTATIN 40 MG TAB PO SCH (21:00)
[2021-05-18] MEDS: MONTELUKAST 10 MG TAB PO SCH (21:00)
[2021-05-19] MEDS: methylPREDNISolone SOD SUCCI 125 MG/2 ML VIAL IV SCH ×4 (00:16→18:03)
[2021-05-19] MEDS: IPRATROPIUM-ALBUTEROL 3 ML NEB INHALATION PRN (03:08)
[2021-05-19] MEDS: IPRATROPIUM-ALBUTEROL 3 ML NEB INHALATION SCH ×4 (07:36→20:00)
[2021-05-19] MEDS: FORMOTEROL FUMARATE 20 MCG/2 ML NEBU INHALATION SCH ×2 (07:36→20:13)
[2021-05-19] MEDS: BUDESONIDE 1 MG/2 ML NEBU INHALATION SCH ×2 (07:36→20:00)
[2021-05-19 07:41] LABS: Glucose,Whole Blood 157 mg/dL (75-99)
[2021-05-19] MEDS: INSULIN ASPART (NovoLOG) 100 UNIT/ML VIAL SQ SCH ×4 (08:22→20:40)
[2021-05-19] MEDS: FAMOTIDINE 20 MG TAB PO SCH ×2 (08:22→18:03)
[2021-05-19] MEDS: AMIODARONE 200 MG TAB PO SCH ×2 (08:22→20:37)
[2021-05-19] MEDS: LOSARTAN 25 MG TAB PO SCH (08:22)
[2021-05-19] MEDS: APIXABAN 5 MG TAB PO SCH ×2 (08:22→20:37)
[2021-05-19] MEDS: AMOXIC-POT CLAV 875-125MG 1 EACH TAB PO SCH ×2 (08:23→20:37)
[2021-05-19] MEDS: [UNRECOGNIZED DRUG - OTHER] TRANSDERM SCH (08:23)
--- NOTE | 2021-05-19 11:10 | P.PN ---
Subjective Progress Note Date: 05/19/21 Principal diagnosis: Shortness of breath. Pulmonary consultation dated 05/13/2021. 65-year-old female who resides at [facility] on the [facility]. She presents to the emergency room by EMS, with complaints of increasing shortness of breath, chest tightness, cough, and phlegm production. The patient has a history of atrial fibrillation, COPD, and prior episode of coronavirus pneumonia. Typically she is on 2 L nasal cannula. They apparently increased her up to 3 L when she was having shortness of breath. She hasn't been feeling well for about 2-1/2 weeks. No chest pain or chest discomfort. No nausea, vomiting, diarrhea or abdominal pain. She recently finished a course of Levaquin. Currently not on any antibiotics. She has not been vaccinated against coronavirus. The chest x-ray shows diffuse bilateral infiltrates, some of which may be related to previous episode of coronavirus pneumonia. 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 This a few other areas which are a bit more dense. White count 9.8, hemoglobin 11.3, hematocrit 34.8, and platelet count is normal. PT, INR, and PTT are normal. Sodium potassium chloride normal. CO2 is 33. Anion gap 5, BUN 12, creatinine 0.57. The patient's N-terminal proBNP is 234. Troponin is negative. Progress note dated 05/14/2021. 65-year-old female who we saw yesterday in consultation. She was in the emergency Department we saw her with complaints of increasing shortness of hortencia th, chest tightness, cough, and phlegm production. The patient was essentially admitted with a diagnosis of COPD exacerbation. 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 No new labs today other than she was screened for coronavirus infection. Chest x-ray, and medications were all reviewed yesterday. Progress note dated 05/15/2021. 65-year-old female admitted with a diagnosis of COPD exacerbation. The patient is feeling better. 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 The patient still coughing up phlegm. She is much less bronchospastic. She states that her shortness of breath is improved. She denies any fever or chills. No chest pain or chest discomfort. She denies hemoptysis. No new lab data today. The lab data from May 14 is reviewed. The patient's on appropriate medications including DuoNeb, Solu-Medrol, Singulair, Pulmicort, and formoterol. In addition, the patient's on Augmentin. Progress note dated 05/16/2021. 65-year-old female admitted with a diagnosis of COPD exacerbation. She is again seen today, in room 625. She sitting in a chair at the bedside. She appears in no acute distress. She still has quite a bit of wheezing tightness and congestion the chest, and she is not coughing up much or any phlegm when she does cough. 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 No recent labs today to speak of. Vital signs are stable, within normal blood pressure, heart rate, and respiratory rate. In addition, the patient remains on excellent medications including DuoNeb, Solu-Medrol, Singulair, Pulmicort, and formoterol. Finally, the patient remains on Augmentin twice a day. Progress note dated 05/17/2021. 65-year-old female admitted with a diagnosis of COPD exacerbation. She is again seen in room 625. Her progress has been slow. She does appear to be improving. She is less short of breath. Her primary issues included shortness of breath, chest tightness, wheezing and cough. She is coughing up a small amount of phlegm. She is on appropriate medications. No new labs to report today. No recent chest x-ray to report. Progress note dated 05/18/2021. 65-year-old female admitted with a diagnosis of COPD exacerbation. She is again seen in room 625. Her progress has been slow, but she has improved since she was first admitted. She is less short of breath. She still coughs. Producing some phlegm. This also chest tightness, wheezing, and chest congestion. The patient's chest x-ray is improved. Labs today include a sodium 140, potassium 4.2, chlorides 101, CO2 32.4, anion gap 6.6, BUN 24, and creatinine 0.6. Progress note dated 05/19/2021. 65-year-old female admitted with a diagnosis of COPD exacerbation. She is again seen in room 625. She's doing much better today, and is hoping to be able to be discharged tomorrow. Her progress has been slow but steady. No new labs today. The patient states that her breathing is much improved, and cough, and wheezing, much better. The patient's chest x-ray from the , shows an improvement in the patient's overall volume status. Objective - Vital Signs Vital signs: Vital Signs Temp 97.7 F 05/19/21 07:00 Pulse 74 05/19/21 08:04 Resp 20 05/19/21 08:00 BP 120/64 05/19/21 07:00 Pulse Ox 98 05/19/21 07:38 Intake & Output 05/18/21 05/19/21 05/19/21 18:59 06:59 18:59 Intake Total 800 Balance 800 Intake: Oral 800 Other: Voiding Method Bedside Commode Bedside Commode Bedside Commode Bedpan # Voids 1 1 - Exam No acute distress, oriented 3. Currently on 3 L nasal O2, with a saturation of 98%. No audible wheezing, use of accessory muscles, or conversational dyspnea. Her cough is wet and congested. HEENT examination is grossly unremarkable. Neck supple. Full range of motion. No adenopathy thyromegaly or neck vein distention. Cardiovascular examination reveals regular rhythm rate. S1-S2 normal. No S3 or S4. No discernible murmur noted. Heart sounds are distant. Heart rate 74 bpm. Lungs reveal bilateral scattered rhonchi and a few scattered crackles and wheezes. Breath sounds are much improved. Breath sounds are equal bilaterally. There is prolongation on forced maneuver. Adventitious lung sounds are more prominent on forced maneuver. Abdomen soft bowel sounds are heard. No masses or tenderness. Extremities are intact. No cyanosis clubbing or edema. Skin is without rash or lesion. Neurologic examination is brief but nonfocal. - Labs CBC & Chem 7: 05/14/21 06:32 05/18/21 05:33 Labs: Abnormal Lab Results - Last 24 Hours (Table) 05/18/21 05/18/21 05/19/21 Range/Units 17:42 19:22 07:39 POC Glucose (mg/dL) 139 H 163 H 157 H (75-99) mg/dL Assessment and Plan Assessment: COPD exacerbation complicated by possible purulent tracheobronchitis/bronchopneumonia. Recent history of COVID 19 pneumonia, with possible postinflammatory pulmonary fibrotic changes on chest x-ray. History of atrial fibrillation. History of CAD. History of CVA. History of gastroesophageal reflux disease. Hyperlipidemia. Myocardial infarction. Status post clipping of a brain aneurysm, 2000. Chronic hypoxemic respiratory failure. History of scoliosis. CAD with previous stent placement. Plan: Plan dated 05/13/2021. The patient will be placed on DuoNeb's, Symbicort, and Solu-Medrol. In addition, she should get antibiotic. A pro-calcitonin level be done. Additional recommendations and suggestions are forthcoming. Prognosis is guarded. The patient has not yet been vaccinated. It has been more than 90 days since she tested positive for coronavirus. She could receive the vaccine at this time. We will continue to follow make recommendations where appropriate . Plan dated 05/14/2021. The patient seemed to be doing a bit better today than yesterday. She remains on DuoNeb's, Symbicort, and Solu-Medrol. We will continue to follow make recommendations where appropriate. We will see her in the office post discharge, for complete pulmonary function testing. Some of her changes on chest x-ray may be chronic in nature and related to postinflammatory pulmonary fibrosis. Her coronavirus screen on this admission was negative. Plan dated 05/15/2021. Currently, the patient's doing much better. She still has a way to go. I suspect she'll be likely discharge on Thursday. No additional recommendations are made. Medications are appropriate. No changes were made to her medications today. Overall prognosis is guarded. We will continue to follow the patient and make recommendations where appropriate. Plan dated 05/16/2021. Currently, the patient remains on excellent medications. She is improving albeit slowly. We will continue with all the same medications without change. Additional recommendations and suggestions are forthcoming. Prognosis is guarded. We will continue to follow the patient and make accommodations where appropriate. Plan dated 05/17/2021. The patient continues to show daily improvement. She's less bronchospastic. She is coughing less. She's less short of breath. We will continue with current medications. Prognosis is guarded. Additional recommendations and suggestions are forthcoming. We will continue to follow this patient and make recommendations where appropriate. Plan dated 05/18/2021. The patient continues to improve. Her improvement has been slow. Her chest x- ray is improved. Her breathing is better. She's less bronchospastic. She still is having chest congestion and cough. I suspect she will be discharged until Thursday. Her medications are reviewed. From the pulmonary standpoint, she is on Singulair, Solu-Medrol, DuoNeb, formoterol, Pulmicort, and Augmentin. Plan dated 05/19/2021. The patient continues to show steady albeit slow improvement. Chest x-ray from the is improved. She remains on it appropriate medications including Singulair, Solu-Medrol, duo nebs, long-acting beta agonist, and inhaled corticosteroids. She also remains on Augmentin. Hopeful discharge within the next 24-48 hours. Prognosis is guarded. Time with Patient: Less than 30
--- NOTE | 2021-05-19 12:01 | P.PN ---
Subjective Progress Note Date: 05/19/21 Patient still wheezing, air entry into lungs is better today. Remains on 3L Nasal Canula, continues on IV steroids, bronchodilators. Chronic obstructive pulmonary disease acute exacerbation, acute bilateral pneumonia possibly bronchopneumonia and use to have significant wheezing and uses steroids inhalational treatments. Patient is presently on 3 L of nasal cannula. Continue systemic steroids and inhalational treatments History of atrial fibrillation, chronic presently rate controlled COPD acute exacerbation History of coronary artery disease History of CVA, TIA Gastroesophageal reflux disease Hyperlipidemia history of degenerative joint disease Anxiety/depression Chronic hypoxic respiratory failure Full code Original Note: Subjective 65-year-old female who was recently admitted with increased shortness of breath and chronic obstructive pulmonary disease acute exacerbation and is being closely monitored. Pulmonary following. Patient is maintained on breathing inhalational treatments along with IV steroids and will continue at this time. She was also started on oral Augmentin as chest x-ray showed evidence of bilateral interstitial shadows possibly bronchopneumonia. Patient continues to be extremely short of breath and dyspneic with minimal exertion. Patient was staying at [facility] on the [place] for PT/OT therapy status post COVID-19 pneumonia and developed extreme weakness and gait dysfunction. Patient is currently afeb rile. Patient does have a cough with phlegm production and audible expiratory wheezing noted on exam. 05/15/2021 Patient is seen in follow-up this morning with no acute overnight issues. Patient continues to be dyspneic with exertion with a cough and phlegm production noted. Sputum culture showing no staph aureus or pseudomonas aeruginosa with some moderate gram-positive bacilli and moderate normal respiratory luis patient is maintained on oral Augmentin and will continue. Patient also continues on breathing inhalational treatments and IV steroids and will continue. Pulmonary following closely. Patient denies any chest pain or palpitations. Patient continues to be weak and requiring assistance. Patient has not walked much since Covid and will be returning to [facility] once more sta ble. 05/16/2021 Continue to have significant wheezing although his respiratory status improved in the sense her saturations are better on 3 L of oxygen. 05/17/2021 Patient has significant improvement in her COPD today but still wheezing patient may require one 1 or 2 more days of hospitalization. Patient's liver enzymes are improving at this time. 05/18/2021 Patient has significant wheezing today appears to be bit worse compared to yesterday it 05/19/2021 Patient still wheezing, better air entry into lungs today, still dypspneic with exertion. Remains on 3L nasal canula. Continues on IV steroids and nebulized bronchodilators Review of systems: Constitutional: No reports of fatigue, fever, or chills Cardiovascular: No reports of chest pain or palpitations Respiratory: Significant improvement in her shortness of breath GI: No reports of nausea, vomiting, or diarrhea : No reports of dysuria or retention Neurovascular: Reports continued generalized weakness All medications have been reviewed Physical exam: Gen: This is a 65-year-old female sitting up in bed awake, alert and oriented 3, well-developed, well-nourished. HEENT: Head is atraumatic, normocephalic. Pupils equal, round. Sclerae is anicteric. NECK: Supple. No JVD. No lymphadenopathy. No thyromegaly. LUNGS: Decreased air entry with significant wheezing today HEART: S1, S2 are muffled ABDOMEN: Soft. Bowel sounds are present. No masses. No tenderness. EXTREMITIES: No pedal edema. No calf tenderness. NEUROLOGICAL: Patient is awake, alert and oriented x3. Diffusely weak. Assessment and plan: Chronic obstructive pulmonary disease acute exacerbation, acute bilateral pneumonia possibly bronchopneumonia and use to have significant wheezing and uses steroids inhalational treatments. Patient is presently on 3 L of nasal cannula. Continue systemic steroids and inhalational treatments History of atrial fibrillation, chronic presently rate controlled COPD acute exacerbation History of coronary artery disease History of CVA, TIA Gastroesophageal reflux disease Hyperlipidemia history of degenerative joint disease Anxiety/depression Chronic hypoxic respiratory failure Full code Objective - Vital Signs Vital signs: Vital Signs Temp 97.7 F 05/19/21 07:00 Pulse 74 05/19/21 08:04 Resp 20 05/19/21 08:00 BP 120/64 05/19/21 07:00 Pulse Ox 98 05/19/21 07:38 Intake & Output 05/18/21 05/19/21 05/19/21 18:59 06:59 18:59 Intake Total 800 Balance 800 Intake: Oral 800 Other: Voiding Method Bedside Commode Bedside Commode Bedside Commode Bedpan # Voids 1 1 - Labs CBC & Chem 7: 05/14/21 06:32 05/18/21 05:33 Labs: Abnormal Lab Results - Last 24 Hours (Table) 0705/18/21 05/19/21 Range/Units 17:42 19:22 07:39 POC Glucose (mg/dL) 139 H 163 H 157 H (75-99) mg/dL
[2021-05-19 12:04] LABS: Glucose,Whole Blood 152 mg/dL (75-99)
[2021-05-19] MEDS: Acetaminophen-Codeine 300-30mg TAB PO PRN ×2 (13:06→20:37)
[2021-05-19 17:28] LABS: Glucose,Whole Blood 175 mg/dL (75-99)
[2021-05-19 20:15] LABS: Glucose,Whole Blood 125 mg/dL (75-99)
[2021-05-19] MEDS: MONTELUKAST 10 MG TAB PO SCH (20:37)
[2021-05-19] MEDS: ATORVASTATIN 40 MG TAB PO SCH (20:37)
[2021-05-20] MEDS: methylPREDNISolone SOD SUCCI 125 MG/2 ML VIAL IV SCH ×5 (00:27→23:32)
[2021-05-20] MEDS: IPRATROPIUM-ALBUTEROL 3 ML NEB INHALATION PRN ×2 (00:50→04:30)
[2021-05-20 07:25] LABS: Glucose,Whole Blood 176 mg/dL (75-99)
[2021-05-20] MEDS: Acetaminophen-Codeine 300-30mg TAB PO PRN ×3 (07:46→22:01)
[2021-05-20] MEDS: FAMOTIDINE 20 MG TAB PO SCH ×2 (07:47→16:50)
[2021-05-20] MEDS: LOSARTAN 25 MG TAB PO SCH (07:47)
[2021-05-20] MEDS: AMOXIC-POT CLAV 875-125MG 1 EACH TAB PO SCH ×2 (07:47→22:01)
[2021-05-20] MEDS: APIXABAN 5 MG TAB PO SCH ×2 (07:47→22:02)
[2021-05-20] MEDS: AMIODARONE 200 MG TAB PO SCH ×2 (07:47→22:01)
[2021-05-20] MEDS: IPRATROPIUM-ALBUTEROL 3 ML NEB INHALATION SCH ×4 (07:47→19:17)
[2021-05-20] MEDS: BUDESONIDE 1 MG/2 ML NEBU INHALATION SCH ×2 (07:47→19:17)
[2021-05-20] MEDS: FORMOTEROL FUMARATE 20 MCG/2 ML NEBU INHALATION SCH ×2 (07:47→19:17)
[2021-05-20] MEDS: INSULIN ASPART (NovoLOG) 100 UNIT/ML VIAL SQ SCH ×4 (07:48→22:02)
[2021-05-20] MEDS: [UNRECOGNIZED DRUG - OTHER] TRANSDERM SCH (07:53)
[2021-05-20 11:21] LABS: Glucose,Whole Blood 171 mg/dL (75-99)
--- NOTE | 2021-05-20 14:41 | P.PN ---
Subjective Progress Note Date: 05/20/21 On today's evaluation of 05/20/2021 I'm seeing this patient in follow-up regarding her COPD exacerbation worsening shortness of breath. Clinically the patient is improving and she reports that she is at least 50% better in terms of her shortness of breath as the patient is being treated with a combination of bronchodilators and steroids. No chest pain. She remains on oxygen 3 L per minute nasal cannula. She has other comorbidities including chronic atrial fibrillation, coronary artery disease, CVA, hyperlipidemia, degenerative arthritis, chronic anxiety and depression. The patient also has chronic hypoxemic respiratory failure. She is also obese. No fever. No chills. The sputum sample has been negative for any microbial cultures. The patient remains on DuoNeb nebulized treatment [id number], she is currently on Augmentin 875 mg by mouth twice a day. The patient is also on IV Solu-Medrol 60 mg every 6 hours. She remains on long-term medical condition with Eliquis 5 mg by mouth twice a day. She is on Novolin extensive coverage for blood sugar control. No new labs are available from today. Objective - Vital Signs Vital signs: Vital Signs Temp 98.3 F 05/20/21 07:20 Pulse 86 05/20/21 11:52 Resp 16 05/20/21 07:20 BP 132/71 05/20/21 07:20 Pulse Ox 94 L 05/20/21 07:20 Intake & Output 05/19/21 05/20/21 05/20/21 18:59 06:59 18:59 Intake Total 240 Output Total 1 1 Balance 240 -1 -1 Intake: Oral 240 Output: Stool 1 1 Other: Voiding Method Bedside Commode Bedside Commode Bedside Commode # Voids 3 2 - Exam No acute distress, oriented 3. Currently on 3 L nasal O2, with a saturation of 98%. No audible wheezing, use of accessory muscles, or conversational dyspnea. Her cough is wet and congested. HEENT examination is grossly unremarkable. Neck supple. Full range of motion. No adenopathy thyromegaly or neck vein distention. Cardiovascular examination reveals regular rhythm rate. S1-S2 normal. No S3 or S4. No discernible murmur noted. Heart sounds are distant. Heart rate 74 bpm. Lungs reveal bilateral scattered rhonchi and a few scattered crackles and wheezes. Breath sounds are much improved. Breath sounds are equal bilaterally. There is prolongation on forced maneuver. Adventitious lung sounds are more prominent on forced maneuver. Abdomen soft bowel sounds are heard. No masses or tenderness. Extremities are intact. No cyanosis clubbing or edema. Skin is without rash or lesion. Neurologic examination is brief but nonfocal. - Labs CBC & Chem 7: 05/14/21 06:32 05/18/21 05:33 Labs: Abnormal Lab Results - Last 24 Hours (Table) 05/19/21 05/19/21 05/20/21 Range/Units 17:27 20:13 07:22 POC Glucose (mg/dL) 175 H 125 H 176 H (75-99) mg/dL 05/20/21 Range/Units 11:19 POC Glucose (mg/dL) 171 H (75-99) mg/dL Assessment and Plan Plan: 1 COPD exacerbation complicated by possible purulent tracheobronchitis/bronchopneumonia. 2 Recent history of COVID 19 pneumonia, with possible postinflammatory pulmonary fibrotic changes on chest x-ray. 3 History of atrial fibrillation. 4 History of CAD. 5 History of CVA. 6 History of gastroesophageal reflux disease. 7 Hyperlipidemia. 8 coronary artery disease with previous Myocardial infarction. 9 Status post clipping of a brain aneurysm, 2000. 10 Chronic hypoxemic respiratory failure. 11 History of scoliosis. 12 CAD with previous stent placement. Plan: Plan Continue to improve. Clinically improving. Less bronchospastic and wheezy. May potentially transfer this patient back to [facility] on the [place] on a prednisone burst taper, oral Augmentin to complete a total of seven-day course and DuoNeb nebulized treatments. The patient has chronic hypoxemic respiratory failure and the patient is oxygen dependent. Continue Eliquis for long-term and to coagulation regarding chronic atrial fibrillation. Rest of the medication will be kept unchanged.
[2021-05-20 17:31] LABS: Glucose,Whole Blood 151 mg/dL (75-99)
[2021-05-20 20:53] LABS: Glucose,Whole Blood 164 mg/dL (75-99)
[2021-05-20] MEDS: MONTELUKAST 10 MG TAB PO SCH (22:02)
[2021-05-20] MEDS: ATORVASTATIN 40 MG TAB PO SCH (22:02)
[2021-05-21] MEDS: IPRATROPIUM-ALBUTEROL 3 ML NEB INHALATION PRN ×2 (00:47→05:13)
[2021-05-21] MEDS: methylPREDNISolone SOD SUCCI 125 MG/2 ML VIAL IV SCH ×2 (05:48→11:46)
[2021-05-21] MEDS: Acetaminophen-Codeine 300-30mg TAB PO PRN ×4 (05:53→22:45)
[2021-05-21 07:10] LABS: Glucose,Whole Blood 173 mg/dL (75-99)
[2021-05-21] MEDS: BUDESONIDE 1 MG/2 ML NEBU INHALATION SCH ×2 (07:43→19:42)
[2021-05-21] MEDS: FORMOTEROL FUMARATE 20 MCG/2 ML NEBU INHALATION SCH ×2 (07:44→19:55)
[2021-05-21] MEDS: IPRATROPIUM-ALBUTEROL 3 ML NEB INHALATION SCH ×4 (07:44→19:41)
[2021-05-21] MEDS: [UNRECOGNIZED DRUG - OTHER] TRANSDERM SCH (08:13)
[2021-05-21] MEDS: APIXABAN 5 MG TAB PO SCH ×2 (08:17→20:15)
[2021-05-21] MEDS: FAMOTIDINE 20 MG TAB PO SCH ×2 (08:18→17:31)
[2021-05-21] MEDS: AMIODARONE 200 MG TAB PO SCH ×2 (08:18→20:15)
[2021-05-21] MEDS: INSULIN ASPART (NovoLOG) 100 UNIT/ML VIAL SQ SCH ×4 (08:18→20:46)
[2021-05-21] MEDS: LOSARTAN 25 MG TAB PO SCH (08:18)
[2021-05-21 10:30] LABS: Basophils # (A) 0.01 X 10*3/uL (0.00-0.10); Basophils % (A) 0.1 %; Eosinophils # (A) 0 X 10*3/uL (0.04-0.35); Eosinophils % (A) 0 %; HCT 34.7 % (37.2-46.3); HGB 10.4 g/dL (12.0-15.0); Lymphocytes # (A) 0.38 X 10*3/uL (0.90-5.00); Lymphocytes % (A) 3.9 %; MCH 26.1 pg (27.0-32.0); Mean Platelet Volume 10.8 fL (9.5-12.2); Monocytes # (A) 0.51 X 10*3/uL (0.20-1.00); Monocytes % (A) 5.2 %; Neutrophils # (A) 8.77 X 10*3/uL (1.80-7.70); Neutrophils % (A) 89.2 %; Platelet Count 275 X 10*3/uL (140-440); RBC 3.99 X 10*6/uL (4.10-5.20); RDW 16.6 % (11.5-14.5); WBC 9.83 X 10*3/uL (4.50-10.00)
[2021-05-21 10:36] LABS: African American GFR (CKD) 106.9 (60.0-200.0); BUN/Creat Ratio 37.14 Ratio (12.00-20.00); Calcium 8.5 mg/dL (8.7-10.3); Non-African American GFR(CKD) 92.2 (60.0-200.0); Potassium 4.5 mmol/L (3.5-5.5)
[2021-05-21 11:36] LABS: Glucose,Whole Blood 126 mg/dL (75-99)
--- NOTE | 2021-05-21 12:43 | P.PN ---
Subjective Progress Note Date: 05/21/21 05/21/2021, clinically the patient is feeling better. She is less short of breath and less bronchospastic and wheezy. She remains on IV Solu-Medrol and she will be also tapered off and be switched to oral prednisone. She is on oxygen at 3 L per minute nasal cannula and she has chronic hypoxic respiratory failure. She is currently on Augmentin. She is on long-term anticoagulation with Eliquis. No other significant events overnight. The plan is to discharge this patient back to [facility] on the [place] for further rehabilitation. Angios have edema lower extremities bilaterally. She would benefit from additional diuretics. Objective - Vital Signs Vital signs: Vital Signs Temp 98.2 F 05/21/21 07:00 Pulse 80 05/21/21 11:45 Resp 16 05/21/21 07:00 BP 118/66 05/21/21 07:00 Pulse Ox 95 05/21/21 07:00 Intake & Output 05/20/21 05/21/21 05/21/21 18:59 06:59 18:59 Intake Total 300 350 236 Output Total 2 2 Balance 298 348 236 Intake: Oral 300 350 236 Output: Stool 2 2 Other: Voiding Method Bedside Commode Bedside Commode Bedside Commode # Voids 1 2 - Exam No acute distress, oriented 3. Currently on 3 L nasal O2, with a saturation of 98%. Ablle to speak full sentences and there are no signs of any apparent respiratory distress HEENT examination is grossly unremarkable. Neck supple. Full range of motion. No adenopathy thyromegaly or neck vein distention. Cardiovascular examination reveals regular rhythm rate. S1-S2 normal. No S3 or S4. No discernible murmur noted. Heart sounds are distant. Lungs reveal bilateral scattered rhonchi and a few scattered crackles and wheezes. Breath sounds are much improved. Breath sounds are equal bilaterally. There is prolongation on forced maneuver. Adventitious lung sounds are more prominent on forced maneuver. Abdomen soft bowel sounds are heard. No masses or tenderness. Extremities are intact. No cyanosis clubbing and there is +1-2 pitting edema in lower extremities bilaterally Skin is without rash or lesion. Neurologic examination is brief but nonfocal. - Labs CBC & Chem 7: 05/21/21 06:37 05/21/21 06:37 Labs: Abnormal Lab Results - Last 24 Hours (Table) 05/20/21 05/20/21 05/21/21 Range/Units 17:30 20:52 06:37 RBC 3.99 L (4.10-5.20) X 10*6/uL Hgb 10.4 L (12.0-15.0) g/dL Hct 34.7 L (37.2-46.3) % MCH 26.1 L (27.0-32.0) pg MCHC 30.0 L (32.0-37.0) g/dL RDW 16.6 H (11.5-14.5) % Immature Gran # 0.16 H (0.00-0.04) X 10*3/uL Neutrophils # 8.77 H (1.80-7.70) X 10*3/uL Lymphocytes # 0.38 L (0.90-5.00) X 10*3/uL Eosinophils # 0 L (0.04-0.35) X 10*3/uL BUN/Creatinine Ratio (12.00-20.00) Ratio Glucose (70-110) mg/dL POC Glucose (mg/dL) 151 H 164 H (75-99) mg/dL Calcium (8.7-10.3) mg/dL 05/21/21 05/21/21 05/21/21 Range/Units 06:37 07:08 11:33 RBC (4.10-5.20) X 10*6/uL Hgb (12.0-15.0) g/dL Hct (37.2-46.3) % MCH (27.0-32.0) pg MCHC (32.0-37.0) g/dL RDW (11.5-14.5) % Immature Gran # (0.00-0.04) X 10*3/uL Neutrophils # (1.80-7.70) X 10*3/uL Lymphocytes # (0.90-5.00) X 10*3/uL Eosinophils # (0.04-0.35) X 10*3/uL BUN/Creatinine Ratio 37.14 H (12.00-20.00) Ratio Glucose 162 H (70-110) mg/dL POC Glucose (mg/dL) 173 H 126 H (75-99) mg/dL Calcium 8.5 L (8.7-10.3) mg/dL Assessment and Plan Plan: 1 COPD exacerbation complicated by possible purulent tracheobronchitis/bronchopneumonia. Improving and she is less bronchospastic and wheezy 2 Recent history of COVID 19 pneumonia, with possible postinflammatory pulmonary fibrotic changes on chest x-ray. 3 History of atrial fibrillation. 4 History of CAD. 5 History of CVA. 6 History of gastroesophageal reflux disease. 7 Hyperlipidemia. 8 coronary artery disease with previous Myocardial infarction. 9 Status post clipping of a brain aneurysm, 2000. 10 Chronic hypoxemic respiratory failure. 11 History of scoliosis. 12 CAD with previous stent placement. Plan: Plan Continue to improve. Stop IV Solu Medrol start the patient prednisone burst taper Start the patient on Lasix 40 mg by mouth twice a day regarding lower extremity edema [facility] on the [place] for further rehabilitation possibly today.
--- NOTE | 2021-05-21 15:14 | P.PN ---
Subjective Progress Note Date: 05/21/21 This is a 65-year-old female who was recently admitted with increased shortness of breath and chronic obstructive pulmonary disease acute exacerbation and is being closely monitored. Pulmonary following. Patient is maintained on breathing inhalational treatments along with IV steroids and will continue at this time. She was also started on oral Augmentin as chest x-ray showed evidence of bilateral interstitial shadows possibly bronchopneumonia. Patient continues to be extremely short of breath and dyspneic with minimal exertion. Patient was staying at [facility] on the [place] for PT/OT therapy status post COVID- 19 pneumonia and developed extreme weakness and gait dysfunction. Patient is currently afebrile. Patient does have a cough with phlegm production and audible expiratory wheezing noted on exam. 05/15/2021 Patient is seen in follow-up this morning with no acute overnight issues. Pat jamal continues to be dyspneic with exertion with a cough and phlegm production noted. Sputum culture showing no staph aureus or pseudomonas aeruginosa with some moderate gram-positive bacilli and moderate normal respiratory luis patient is maintained on oral Augmentin and will continue. Patient also continues on breathing inhalational treatments and IV steroids and will continue. Pulmonary following closely. Patient denies any chest pain or palpitations. Patient continues to be weak and requiring assistance. [facility] be [facility] once more stable. 05/16/2021 Continue to have significant wheezing although his respiratory status improved in the sense her saturations are better on 3 L of oxygen. 05/17/2021 Patient has significant improvement in her COPD today but still wheezing patient may require one 1 or 2 more days of hospitalization. Patient's liver enzymes are improving at this time. 05/18/2021 Patient has significant wheezing today appears to be bit worse compared to yesterday it 05/19/2021 Patient still wheezing, better air entry into lungs today, still dypspneic with exertion. Remains on 3L nasal canula. Continues on IV steroids and nebulized bronchodilators 05/20/2021 Patient still wheezing, air entry into lungs is better today. Remains on 3L Nasal Canula, continues on IV steroids, bronchodilators. 05/21/2021 Patient is seen in follow-up this morning continues on 3 L via nasal cannula at baseline and IV steroids and will decrease the dose and transitioned to oral prednisone in the morning as wheezing is significantly improved. Patient continues on breathing inhalational treatments and will continue. Patient has completed a course of antibiotics in the form of Augmentin and pulmonary is following closely. Basic labs within normal limits today. Patient is afebrile. Review of systems: Constitutional: No reports of fatigue, fever, or chills Cardiovascular: No reports of chest pain or palpitations Respiratory: Reports continued shortness of breath and cough although feels is improved GI: No reports of nausea, vomiting, or diarrhea : No reports of dysuria or retention Neurovascular: Reports continued generalized weakness All medications have been reviewed Physical exam: Gen: This is a 65-year-old female sitting up in bed awake, alert and oriented 3, well-developed, well-nourished. HEENT: Head is atraumatic, normocephalic. Pupils equal, round. Sclerae is anicteric. NECK: Supple. No JVD. No lymphadenopathy. No thyromegaly. LUNGS: Diminished breath sounds bilaterally with some scattered rhonchi noted on exam No intercostal retractions. Expiratory wheezing significantly improved HEART: S1, S2 are muffled ABDOMEN: Soft. Bowel sounds are present. No masses. No tenderness. EXTREMITIES: No pedal edema. No calf tenderness. NEUROLOGICAL: Patient is awake, alert and oriented x3. Diffusely weak. Assessment and plan: Chronic obstructive pulmonary disease acute exacerbation, acute bilateral pneumonia possibly bronchopneumonia Recent Covid 19 pneumonia Elevated pro calcitonin Elevated AST, ALT, possibly mild hepatitis History of atrial fibrillation, chronic COPD/asthma history History of coronary artery disease History of CVA, TIA Gastroesophageal reflux disease Hyperlipidemia history of degenerative joint disease Anxiety/depression Chronic hypoxic respiratory failure Full code Plan: Continue with current medications and continued with breathing inhalational lazara tments along with IV steroids. Pulmonary following. Patient is currently on 3 L oxygen via nasal cannula which is her baseline. Expiratory wheezing improving and we'll transition to oral prednisone on discharge and have decreased IV steroids. Social work following as this patient will be returning to [facility] on the [place] once stabilized and discharged. Possible discharge in 24 hours. Objective - Vital Signs Vital signs: Vital Signs Temp 98.2 F 05/21/21 07:00 Pulse 74 05/21/21 08:05 Resp 16 05/21/21 07:00 BP 118/66 05/21/21 07:00 Pulse Ox 95 05/21/21 07:00 Intake & Output 05/20/21 05/21/21 05/21/21 18:59 06:59 18:59 Intake Total 300 350 236 Output Total 2 2 Balance 298 348 236 Intake: Oral 300 350 236 Output: Stool 2 2 Other: Voiding Method Bedside Commode Bedside Commode Bedside Commode # Voids 1 2 - Labs CBC & Chem 7: 05/21/21 06:37 05/21/21 06:37 Labs: Abnormal Lab Results - Last 24 Hours (Table) 05/20/21 05/20/21 05/20/21 Range/Units 11:19 17:30 20:52 RBC (4.10-5.20) X 10*6/uL Hgb (12.0-15.0) g/dL Hct (37.2-46.3) % MCH (27.0-32.0) pg MCHC (32.0-37.0) g/dL RDW (11.5-14.5) % Immature Gran # (0.00-0.04) X 10*3/uL Neutrophils # (1.80-7.70) X 10*3/uL Lymphocytes # (0.90-5.00) X 10*3/uL Eosinophils # (0.04-0.35) X 10*3/uL BUN/Creatinine Ratio (12.00-20.00) Ratio Glucose (70-110) mg/dL POC Glucose (mg/dL) 171 H 151 H 164 H (75-99) mg/dL Calcium (8.7-10.3) mg/dL 05/21/21 05/21/21 05/21/21 Range/Units 06:37 06:37 07:08 RBC 3.99 L (4.10-5.20) X 10*6/uL Hgb 10.4 L (12.0-15.0) g/dL Hct 34.7 L (37.2-46.3) % MCH 26.1 L (27.0-32.0) pg MCHC 30.0 L (32.0-37.0) g/dL RDW 16.6 H (11.5-14.5) % Immature Gran # 0.16 H (0.00-0.04) X 10*3/uL Neutrophils # 8.77 H (1.80-7.70) X 10*3/uL Lymphocytes # 0.38 L (0.90-5.00) X 10*3/uL Eosinophils # 0 L (0.04-0.35) X 10*3/uL BUN/Creatinine Ratio 37.14 H (12.00-20.00) Ratio Glucose 162 H (70-110) mg/dL POC Glucose (mg/dL) 173 H (75-99) mg/dL Calcium 8.5 L (8.7-10.3) mg/dL
[2021-05-21 17:24] LABS: Glucose,Whole Blood 155 mg/dL (75-99)
[2021-05-21] MEDS: ATORVASTATIN 40 MG TAB PO SCH (20:15)
[2021-05-21] MEDS: MONTELUKAST 10 MG TAB PO SCH (20:15)
[2021-05-21] MEDS: methylPREDNISolone SOD SUCCI 40 MG/ML 1 ML VIAL IV SCH (20:15)
[2021-05-21 20:38] LABS: Glucose,Whole Blood 279 mg/dL (75-99)
[2021-05-22 07:30] LABS: Glucose,Whole Blood 121 mg/dL (75-99)
[2021-05-22] MEDS: INSULIN ASPART (NovoLOG) 100 UNIT/ML VIAL SQ SCH ×2 (07:40→12:51)
[2021-05-22] MEDS: BUDESONIDE 1 MG/2 ML NEBU INHALATION SCH (07:45)
[2021-05-22] MEDS: FORMOTEROL FUMARATE 20 MCG/2 ML NEBU INHALATION SCH (07:45)
[2021-05-22] MEDS: IPRATROPIUM-ALBUTEROL 3 ML NEB INHALATION SCH ×3 (07:46→15:40)
[2021-05-22] MEDS: methylPREDNISolone SOD SUCCI 40 MG/ML 1 ML VIAL IV SCH (07:55)
[2021-05-22] MEDS: LOSARTAN 25 MG TAB PO SCH (07:57)
[2021-05-22] MEDS: APIXABAN 5 MG TAB PO SCH (07:57)
[2021-05-22] MEDS: Acetaminophen-Codeine 300-30mg TAB PO PRN ×2 (07:57→13:50)
[2021-05-22] MEDS: FAMOTIDINE 20 MG TAB PO SCH (07:57)
[2021-05-22] MEDS: AMIODARONE 200 MG TAB PO SCH (07:58)
[2021-05-22] MEDS: [UNRECOGNIZED DRUG - OTHER] TRANSDERM SCH (08:23)
[2021-05-22 11:59] LABS: Glucose,Whole Blood 169 mg/dL (75-99)
[2021-05-22] MEDS ORDERED: FUROSEMIDE 20 MG TAB PO STA (13:28)
--- NOTE | 2021-05-22 15:10 | P.DS ---
Providers Date of admission: 05/16/21 07:52 Expected date of discharge: 05/22/21 Attending physician: Jose Flores MD Consults: 05/13/21 08:50 Consult Physician Urgent Consulting Provider: Dominic Mercado Consult Reason/Comments: COPD exacerbation Do you want consulting provider notified?: Yes Primary care physician: Marino David [facility] Hospital Course: Final diagnosis Chronic obstructive pulmonary disease acute exacerbation, acute bilateral pneumonia possibly bronchopneumonia Recent Covid 19 pneumonia Elevated pro calcitonin Elevated AST, ALT, possibly mild hepatitis History of atrial fibrillation, chronic COPD/asthma history History of coronary artery disease History of CVA, TIA Gastroesophageal reflux disease Hyperlipidemia history of degenerative joint disease Anxiety/depression Chronic hypoxic respiratory failure Full code Discharge disposition Patient is being discharged in a stable condition with guarded prognosis to [facility] for continued PT/OT therapy. Patient will follow-up with in the outpatient setting upon discharge. Patient is to continue with prednisone taper as scheduled until finished. Patient will also need outpatient follow-up with pulmonary in 2-3 weeks. Total time taken is greater than 35 minutes. Hospital course This is a 65-year-old female who was recently admitted with increased shortness of breath and chronic obstructive pulmonary disease acute exacerbation and is being closely monitored. Pulmonary following. Patient is maintained on breathing inhalational treatments along with IV steroids and will continue at this time. She was also started on oral Augmentin as chest x-ray showed evidence of bilateral interstitial shadows possibly bronchopneumonia. Patient continues to be extremely short of breath and dyspneic with minimal exertion. Patient was staying at [facility] for PT/OT therapy status post COVID- 19 pneumonia and developed extreme weakness and gait dysfunction. Patient is cu rrently afebrile. Patient does have a cough with phlegm production and audible expiratory wheezing noted on exam. 05/15/2021 Patient is seen in follow-up this morning with no acute overnight issues. Patient continues to be dyspneic with exertion with a cough and phlegm production noted. Sputum culture showing no staph aureus or pseudomonas aeruginosa with some moderate gram-positive bacilli and moderate normal respiratory luis patient is maintained on oral Augmentin and will continue. Patient also continues on breathing inhalational treatments and IV steroids and will continue. Pulmonary following closely. Patient denies any chest pain or palpitations. Patient continues to be weak and requiring assistance. Patient has not walked much since [facility] and will be returning to [facility] once more stable. 05/22/2021 Issue is seen in follow-up this morning breathing back to baseline continues to have some mild expiratory wheezing and will continue with prednisone taper along with breathing inhalational treatments and inhalers on discharge. Also having some bilateral lower extremity swelling and will start low-dose Lasix 20 mg daily and also recommend compression stockings to bilateral lower extremities and elevating lower extremities while at rest with recommended repeat labs in one week to monitor kidney functions. Patient does not normally take Lasix. Patient did complete a course of oral antibiotics during hospitalization. Patient will be returning to [facility] for continued PT/OT therapy. Patient will need follow-up outpatient with pulmonary in the next 2-3 weeks. Currently no reports of chest pain, shortness of breath, or palpitations. Patient is afebrile. No reports of nausea or vomiting and patient is tolerating diet. Patient will be going to [facility] on the banda today. On exam vital signs are stable. Cardio S1, S2 are muffled. Respiratory system shows diminished breath sounds at the bases with no wheezing or rhonchi noted. Abdomen is soft and nontender. Nervous system shows diffuse weakness. Please refer to medication reconciliation sheet for a list of medications. Patient Condition at Discharge: Stable Plan - Discharge Summary Discharge Rx Participant: Yes New Discharge Prescriptions: New Ipratropium-Albuterol Nebulize [Duoneb 0.5 mg-3 mg/3 ml Soln] 3 ml INHALATION RT-Q2H PRN ml PRN Reason: Shortness Of Breath Or Wheezing Furosemide [Lasix] 20 mg PO DAILY #14 tablet predniSONE 10 mg PO DIRECTED #30 tab Budesonide [Pulmicort] 1 mg INHALATION RT-BID ml Continue Famotidine [Pepcid] 20 mg PO BID@0900,1700 Albuterol Nebulized [Ventolin Nebulized] 2.5 mg INHALATION RT-DAILY PRN PRN Reason: Shortness Of Breath Benzocaine/Menthol Lozeng [Cepacol lozenge] 1 lozenge MUCOUS MEM Q4HR PRN PRN Reason: Sore Throat Ipratropium-Albuterol Nebulize [Duoneb 0.5 mg-3 mg/3 ml Soln] 3 ml INHALATION RT-QID@00,06,12,18 Budesonide/Formoterol Fumarate [Symbicort 160-4.5 Mcg Inhaler] 2 puff INHALATION RT-BID Atorvastatin Calcium [Lipitor] 40 mg PO HS@2100 Amiodarone [Cordarone] 200 mg PO BID Acetaminophen [Tylenol 8 Hour] 650 mg PO Q6H PRN PRN Reason: Pain Acetaminophen [Acetaminophen 8 Hour] 650 mg PO DAILY@0600 Diclofenac Sodium [Voltaren Gel] 1 applic TOPICAL TID@0900,1300,2100 Methyl Salicylate/Menth/Camph [Salonpas 3.1%-6.0%-10.0% Patch] 1 patch TRANSDERM DAILY Montelukast [Singulair] 10 mg PO HS Apixaban [Eliquis] 5 mg PO BID Ibuprofen [Motrin Ib] 200 mg PO Q8H PRN PRN Reason: Pain Depo-Medrol 40mg/Ml 40 mg IM DAILY PRN PRN Reason: left shoulder pain Losartan [Cozaar] 25 mg PO DAILY Albuterol Inhaler [Ventolin Hfa Inhaler] 2 puff INHALATION RT-QID@,,, Acetaminophen-Codeine 300-30mg [Tylenol w/codeine #3] 1 tab PO Q6H PRN #6 tab PRN Reason: Pain Discharge Medication List Famotidine [Pepcid] 20 mg PO BID@0900,1700 08/04/20 [History] Albuterol Nebulized [Ventolin Nebulized] 2.5 mg INHALATION RT-DAILY PRN 01/08/21 [History] Benzocaine/Menthol Lozeng [Cepacol lozenge] 1 lozenge MUCOUS MEM Q4HR PRN 01/30/21 [History] Acetaminophen [Acetaminophen 8 Hour] 650 mg PO DAILY@0600 02/27/21 [History] Acetaminophen [Tylenol 8 Hour] 650 mg PO Q6H PRN 02/27/21 [History] Amiodarone [Cordarone] 200 mg PO BID 02/27/21 [History] Apixaban [Eliquis] 5 mg PO BID 02/27/21 [History] Atorvastatin Calcium [Lipitor] 40 mg PO HS@2100 02/27/21 [History] Budesonide/Formoterol Fumarate [Symbicort 160-4.5 Mcg Inhaler] 2 puff INHALATION RT-BID 02/27/21 [History] Ipratropium-Albuterol Nebulize [Duoneb 0.5 mg-3 mg/3 ml Soln] 3 ml INHALATION RT-QID@00,06,12,18 02/27/21 [History] Montelukast [Singulair] 10 mg PO HS 02/27/21 [History] Albuterol Inhaler [Ventolin Hfa Inhaler] 2 puff INHALATION RT-QID@09,13,17,21 05/13/21 [History] Depo-Medrol 40mg/Ml 40 mg IM DAILY PRN 05/13/21 [History] Diclofenac Sodium [Voltaren Gel] 1 applic TOPICAL TID@0900,1300,2100 05/13/21 [History] Ibuprofen [Motrin Ib] 200 mg PO Q8H PRN 05/13/21 [History] Losartan [Cozaar] 25 mg PO DAILY 05/13/21 [History] Methyl Salicylate/Menth/Camph [Salonpas 3.1%-6.0%-10.0% Patch] 1 patch TRANSDERM DAILY 05/13/21 [History] Acetaminophen-Codeine 300-30mg [Tylenol w/codeine #3] 1 tab PO Q6H PRN #6 tab 05/22/21 [Rx] Budesonide [Pulmicort] 1 mg INHALATION RT-BID ml 05/22/21 [Rx] Furosemide [Lasix] 20 mg PO DAILY #14 tablet 05/22/21 [Rx] Ipratropium-Albuterol Nebulize [Duoneb 0.5 mg-3 mg/3 ml Soln] 3 ml INHALATION RT-Q2H PRN ml 05/22/21 [Rx] predniSONE 10 mg PO DIRECTED #30 tab 05/22/21 [Rx] Follow up Appointment(s)/Referral(s): Frankie Pichardo MD [Primary Care Provider] - 1-2 days Uma Artis MD [STAFF PHYSICIAN] - 2 Weeks Ambulatory/Diagnostic Orders: Basic Metabolic Panel [LAB.AMB] Time Frame: 1 Week, Location: None Selected Activity/Diet/Wound Care/Special Instructions: Patient is going to [facility] Activity as tolerated Follow-up with Dr. Crystal Continue medications as prescribed Continue with prednisone taper until finished Patient started on Lasix 20 mg daily and recommend BMP labs in one week to monitor electrolytes and kidney functions for bilateral lower extremity swelling Continue with compression stockings or Cedric wraps from toes up to knees and elevating well at rest Continue regular diet Continue with physical therapy Continue with breathing inhalational treatments Discharge Disposition: TRANSFER TO SNF/ECF
[2021-05-22 15:27] VITALS: BP 114/66; RESP 20; TEMP 98
--- NOTE | 2021-05-22 15:33 | P.PN ---
Subjective Progress Note Date: 05/22/21 Principal diagnosis: Acute exacerbation of COPD On 05/22/2021 patient seen in follow-up on medical surgical floor. She is awake and alert, in no acute distress, she states her breathing has improved significantly since admission, she is currently on 3 L of oxygen the pulse ox of 96-97%, she's had no fever or chills, no cough but chest pain, lung sounds are essentially clear on today's exam, breathing is nonlabored, she has been up with a walker, using the bedside commode, and get herself in the recliner, able to tolerate activity much better, she is however still having ongoing lower extremity edema, she received a dose of IV Lasix this morning. She has been on IV steroids with Solu-Medrol 40 every 12 hours, nebulized bronchodilators, Eliquis. Fluid balance is difficult to estimate, no weights were recorded, no accurate I&O's. No new labs today, yesterday's labs have been reviewed, showing no evidence of leukocytosis, hemoglobin of 10.4, electrolytes and renal profile were within normal limits. Objective - Vital Signs Vital signs: Vital Signs Temp 98.1 F 05/22/21 07:00 Pulse 69 05/22/21 11:32 Resp 18 05/22/21 07:00 BP 122/69 05/22/21 07:00 Pulse Ox 96 05/22/21 07:00 Intake & Output 05/21/21 05/22/21 05/22/21 18:59 06:59 18:59 Intake Total 236 Output Total 1 2 1 Balance 235 -2 -1 Intake: Oral 236 Output: Stool 1 2 1 Other: Voiding Method Bedside Commode Bedside Commode Bedside Commode # Voids 2 2 - Exam GENERAL EXAM: Alert, very pleasant, 65-year-old comfortable in no apparent distress. HEAD: Normocephalic/atraumatic. EYES: Normal reaction of pupils, equal size. Conjunctiva pink, sclera white. NOSE: Clear with pink turbinates. THROAT: No erythema or exudates. NECK: No masses, no JVD, no thyroid enlargement, no adenopathy. CHEST: No chest wall deformity. Symmetrical expansion. LUNGS: Equal air entry with no crackles, wheeze, rhonchi or dullness. CVS: Regular rate and rhythm, normal S1 and S2, no gallops, no murmurs, no rubs ABDOMEN: Soft, nontender. No hepatosplenomegaly, normal bowel sounds, no guarding or rigidity. EXTREMITIES: No clubbing, 1+ lower extremity edema no cyanosis, 2+ pulses and upper and lower extremities. MUSCULOSKELETAL: Muscle strength and tone normal. SPINE: No scoliosis or deformity SKIN: No rashes CENTRAL NERVOUS SYSTEM: Alert and oriented -3. No focal deficits, tone is normal in all 4 extremities. PSYCHIATRIC: Alert and oriented -3. Appropriate affect. Intact judgment and insight. - Labs CBC & Chem 7: 05/21/21 06:37 05/21/21 06:37 Labs: Abnormal Lab Results - Last 24 Hours (Table) 05/21/21 05/21/21 05/22/21 Range/Units 17:22 20:37 07:28 POC Glucose (mg/dL) 155 H 279 H 121 H (75-99) mg/dL 05/22/21 Range/Units 11:58 POC Glucose (mg/dL) 169 H (75-99) mg/dL Assessment and Plan Plan: Assessment: 1 COPD exacerbation complicated by possible purulent tracheobronchitis/broncho pneumonia. Improving and she is less bronchospastic and wheezy 2 Recent history of COVID 19 pneumonia, with possible postinflammatory pulmonary fibrotic changes on chest x-ray. 3 History of atrial fibrillation. 4 History of CAD. 5 History of CVA. 6 History of gastroesophageal reflux disease. 7 Hyperlipidemia. 8 coronary artery disease with previous Myocardial infarction. 9 Status post clipping of a brain aneurysm, 2000. 10 Chronic hypoxemic respiratory failure. 11 History of scoliosis. 12 CAD with previous stent placement. Plan: Breathing is improving Vital signs are stable Tolerated activity, up out of bed, dyspnea is improving Patient has been diuresed Stable for discharge to [facility] today I performed a history & physical examination of the patient and discussed their management with my nurse practitioner, Darcy Mccartney. I reviewed the nurse practitioner's note and agree with the documented findings and plan of care. Lung sounds are positive for diminished breath sounds The findings and the impression was discussed with the patient. I attest to the documentation by the nurse practitioner. Time with Patient: Less than 30
[2021-05-22 15:49] VITALS: PULSE 66
== END 2021-05-22 17:27 | DRG 194 ==
LOC: EC 07:02 → 6NMEDSUR 07:41 → OBSVTOIN 05-16 07:52
PROVIDERS: ADMIT Internal Medicine; ATTEND Internal Medicine
DX: J18.9 Pneumonia, unspecified organism (principal); J44.0 Chronic obstructive pulmonary disease with (acute) lower respiratory infection; J44.1 Chronic obstructive pulmonary disease with (acute) exacerbation; I48.20 Chronic atrial fibrillation, unspecified; J96.11 Chronic respiratory failure with hypoxia; J84.10 Pulmonary fibrosis, unspecified; Z99.81 Dependence on supplemental oxygen; I73.9 Peripheral vascular disease, unspecified; K75.9 Inflammatory liver disease, unspecified; I10 Essential (primary) hypertension; I25.10 Atherosclerotic heart disease of native coronary artery without angina pectoris; I25.2 Old myocardial infarction; M19.90 Unspecified osteoarthritis, unspecified site; F32.9 Major depressive disorder, single episode, unspecified; F41.9 Anxiety disorder, unspecified; E66.9 Obesity, unspecified; Z68.28 Body mass index [BMI] 28.0-28.9, adult; E78.5 Hyperlipidemia, unspecified; J30.2 Other seasonal allergic rhinitis; K21.9 Gastro-esophageal reflux disease without esophagitis; M41.9 Scoliosis, unspecified; G89.29 Other chronic pain; M54.5 Low back pain; Q24.9 Congenital malformation of heart, unspecified; R26.9 Unspecified abnormalities of gait and mobility; Z79.01 Long term (current) use of anticoagulants; Z79.51 Long term (current) use of inhaled steroids; Z79.899 Other long term (current) drug therapy; Z86.16 Personal history of COVID-19; Z95.5 Presence of coronary angioplasty implant and graft; Z87.891 Personal history of nicotine dependence; Z87.01 Personal history of pneumonia (recurrent); Z98.51 Tubal ligation status; Z95.828 Presence of other vascular implants and grafts; Z86.73 Personal history of transient ischemic attack (TIA), and cerebral infarction without residual deficits; Z98.1 Arthrodesis status; Z87.39 Personal history of other diseases of the musculoskeletal system and connective tissue; Z86.79 Personal history of other diseases of the circulatory system; Z98.890 Other specified postprocedural states; Z88.6 Allergy status to analgesic agent; Z88.1 Allergy status to other antibiotic agents; Z88.2 Allergy status to sulfonamides; Z83.3 Family history of diabetes mellitus; Z82.49 Family history of ischemic heart disease and other diseases of the circulatory system
CPT/HCPCS: 36415; 71045; 71046; 80048; 80053; 81003; 82728; 83605; 83615; 83735; 83880; 84145; 84484; 85025; 85610; 85730; 86140; 87070; 87205; 87635; 93005; 94640; 94760; 96374; 96375; 99285

== ENCOUNTER 2022-02-06 03:25 | Inpatient (IN) | payer OTHER ==
--- NOTE | 2022-02-06 03:50 | XR ---
EXAMINATION TYPE: XR chest 1V portable DATE OF EXAM: 02/06/2022 COMPARISON: 07/10/2021 HISTORY: Short of breath TECHNIQUE: FINDINGS: Heart is normal. There is no heart failure. There is slight coarsening of the interstitial markings there are chest leads. No pleural effusion. There are no hilar masses. Bony thorax appears i ntact. IMPRESSION: Mild increased interstitial density could relate to some mild fibrosis. There is probably COPD. There is significant improvement in the pulmonary interstitial infiltrates compared to last ex am.
[2022-02-06] MEDS ORDERED: methylPREDNISolone SOD SUCCI 125 MG/2 ML VIAL IV STA (03:52)
[2022-02-06 03:57] LABS: Basophils # (A) 0.1 k/uL (0-0.2); Basophils % (A) 2 %; Eosinophils # (A) 1.9 k/uL (0-0.7); Eosinophils % (A) 21 %; HGB 10.2 gm/dL (11.4-16.0); Hypochromasia Marked; Lymphocytes # (A) 1.4 k/uL (1.0-4.8); Lymphocytes % (A) 15 %; MCH 24.2 pg (25.0-35.0); MCHC 29.9 g/dL (31.0-37.0); MCV 80.9 fL (80.0-100.0); Mean Platelet Volume 7.9; Monocytes # (A) 0.6 k/uL (0-1.0); Monocytes % (A) 6 %; Neutrophils # (A) 4.9 k/uL (1.3-7.7); Neutrophils % (A) 54 %; Platelet Count 229 k/uL (150-450); RDW 15.7 % (11.5-15.5)
[2022-02-06 04:11] LABS: Partial Thromboplastin Time 25.1 sec (22.0-30.0); Prothrombin Time 10.8 sec (9.0-12.0)
[2022-02-06 04:58] LABS: Albumin 3.6 g/dL (3.5-5.0); Calcium 8.7 mg/dL (8.4-10.2); Total Bilirubin 0.4 mg/dL (0.2-1.3); Total Protein 6.3 g/dL (6.3-8.2)
[2022-02-06] MEDS ORDERED: ALBUTEROL NEBULIZED 2.5 MG/3 ML INHALATION STA (05:09)
[2022-02-06] MEDS ORDERED: NITROGLYCERIN SL TABS 0.4 MG TAB SUBLINGUAL STA (05:09)
[2022-02-06] MEDS ORDERED: NITROGLYCERIN OINT 1 INCH/GM PACKET TOPICAL STA (05:10)
[2022-02-06] MEDS ORDERED: IPRATROPIUM-ALBUTEROL 3 ML NEB INHALATION STA (05:10)
[2022-02-06] MEDS: Acetaminophen-Codeine 300-30mg TAB PO PRN ×2 (07:18→16:41)
[2022-02-06] MEDS: SYMBICORT 160-4.5 MCG INHALER INHALATION SCH ×2 (07:20→20:14)
[2022-02-06] MEDS: IPRATROPIUM-ALBUTEROL 3 ML NEB INHALATION SCH ×4 (07:20→20:14)
--- NOTE | 2022-02-06 07:26 | ED ---
SOB HPI - General Chief Complaint: Shortness of Breath Stated Complaint: EMMANUEL Time Seen by Provider: 02/06/22 03:28 Source: patient Mode of arrival: EMS Limitations: no limitations - History of Present Illness Initial Comments: This patient is 66-year-old woman with history of COPD and CHF who presents to have evaluation for dyspnea and cough. MD Complaint: shortness of breath, cough Onset/Timin -: days(s) Severity: moderate Consistency: constant Improves With: nothing Worsens With: nothing Known History Of: COPD, congestive heart failure Associated Symptoms: cough, lower extremity pain (Leg swelling no pain) Treatments Prior to Arrival: none - Related Data Home Oxygen Therapy: Yes Home Oxygen Amount: 2 Liters Home Medications Medication Instructions Recorded Confirmed Famotidine [Pepcid] 20 mg PO BID PRN 08/04/20 02/06/22 Amiodarone [Cordarone] 200 mg PO BID 02/27/21 02/06/22 Apixaban [Eliquis] 5 mg PO BID 02/27/21 02/06/22 Budesonide/Formoterol Fumarate 2 puff INHALATION RT-BID 02/27/21 02/06/22 [Symbicort 160-4.5 Mcg Inhaler] Ipratropium-Albuterol Nebulize 3 ml INHALATION RT-QID@00,06,12,18 02/27/21 02/06/22 [Duoneb 0.5 mg-3 mg/3 ml Soln] Montelukast [Singulair] 10 mg PO DAILY 02/27/21 02/06/22 Albuterol Inhaler [Ventolin Hfa 2 puff INHALATION RT-QID PRN 05/13/21 02/06/22 Inhaler] Atorvastatin [Lipitor] 80 mg PO DAILY 02/06/22 02/06/22 Diclofenac Sodium [Voltaren] 50 mg PO BID 02/06/22 02/06/22 Potassium Chloride [Klor-Con 10 ER] 10 meq PO DAILY 02/06/22 02/06/22 lisinopriL [Zestril] 5 mg PO DAILY 02/06/22 02/06/22 Allergies Allergy/AdvReac Type Severity Reaction Status Date / Time naproxen [From Naprosyn] Allergy Anaphylaxis Verified 02/06/22 07:09 Sulfa (Sulfonamide Allergy Anaphylaxis Verified 02/06/22 07:09 Antibiotics) azithromycin [From Zithromax] AdvReac does not Verified 02/06/22 07:09 take due to A-Fib Review of Systems ROS Statement: Those systems with pertinent positive or pertinent negative responses have been documented in the HPI. ROS Other: All systems not noted in ROS Statement are negative. Constitutional: Denies: fever, chills Respiratory: Reports: cough, dyspnea, wheezes. Denies: hemoptysis Cardiovascular: Reports: edema. Denies: chest pain, palpitations, orthopnea Gastrointestinal: Denies: abdominal pain, vomiting, diarrhea Genitourinary: Denies: dysuria, hematuria Musculoskeletal: Denies: back pain Skin: Denies: rash Neurological: Denies: headache, weakness Past Medical History Past Medical History: Atrial Fibrillation, Asthma, Coronary Artery Disease (CAD) , COPD, CVA/TIA, GERD/Reflux, Hyperlipidemia, Myocardial Infarction ([place]), Osteoarthritis (OA), Vascular Disorder Additional Past Medical History / Comment(s): Pt tested covid + 01/30/21 [facility] ER. Pt recently admitted to [facility] on 01/08/21 with acute on chronic respiratory failure/tracheobronchitis severe or bronchopneumonia. 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 Last Myocardial Infarction Date:: 10/19/2019 History of Any Multi-Drug Resistant Organisms: None Reported Past Surgical History: Heart Catheterization With Stent, Orthopedic Surgery, Tubal Ligation Additional Past Surgical History / Comment(s): 2019 PCI/stent R PDA, 2000 angiogram/brain aneurysum that is clipped, abdominal aortogram with R common iliac artery PTBA/stent, left shoulder rotator cuff repair, spine lumbar disc 3x fused Past Anesthesia/Blood Transfusion Reactions: No Reported Reaction Date of Last Stent Placement:: 10/19/19 Past Psychological History: Anxiety, Depression Smoking Status: Former smoker Past Alcohol Use History: None Reported Past Drug Use History: None Reported - Past Family History Father Family Medical History: Coronary Artery Disease (CAD), Diabetes Mellitus Additional Family Medical History / Comment(s): Father had 3 vessel CABG. He at the age of 69 from heart disease. Mother Family Medical History: Myocardial Infarction ([place]) Additional Family Medical History / Comment(s): Mother of a [place] at the age of 42 yrs. General Exam Limitations: no limitations General appearance: alert, in distress Head exam: Present: atraumatic, normocephalic Eye exam: Present: normal appearance. Absent: scleral icterus, conjunctival injection Neck exam: Present: normal inspection Respiratory exam: Present: respiratory distress, wheezes, rales. Absent: rhonchi, chest wall tenderness, accessory muscle use Cardiovascular Exam: Present: regular rate, normal rhythm, normal heart sounds. Absent: systolic murmur, diastolic murmur, rubs, gallop GI/Abdominal exam: Present: soft. Absent: distended, tenderness, guarding, rebound, rigid Extremities exam: Present: normal inspection, normal capillary refill. Absent: pedal edema, calf tenderness Back exam: Present: normal inspection. Absent: CVA tenderness (R), CVA tender ness (L) Neurological exam: Present: alert Skin exam: Present: warm, dry, intact, normal color. Absent: rash Course Vital Signs 02/06/22 02/06/22 02/06/22 03:31 03:36 04:03 Pulse Rate 75 73 Respiratory 28 H 26 H Rate Blood Pressure 208/93 177/70 167/83 O2 Sat by Pulse 98 98 98 Oximetry 02/06/22 02/06/22 02/06/22 05:00 05:59 06:45 Pulse Rate 75 73 73 Respiratory 26 H 24 Rate Blood Pressure 191/79 O2 Sat by Pulse 97 97 Oximetry 02/06/22 02/06/22 07:17 07:22 Pulse Rate 72 Respiratory Rate Blood Pressure O2 Sat by Pulse 99 Oximetry Medical Decision Making - Lab Data Result diagrams: 02/06/22 03:47 02/06/22 03:47 Lab Results 02/06/22 02/06/22 02/06/22 Range/Units 03:47 03:47 03:47 WBC 9.0 (3.8-10.6) k/uL RBC 4.20 (3.80-5.40) m/uL Hgb 10.2 L (11.4-16.0) gm/dL Hct 34.0 (34.0-46.0) % MCV 80.9 (80.0-100.0) fL MCH 24.2 L (25.0-35.0) pg MCHC 29.9 L (31.0-37.0) g/dL RDW 15.7 H (11.5-15.5) % Plt Count 229 (150-450) k/uL MPV 7.9 Neutrophils % 54 % Lymphocytes % 15 % Monocytes % 6 % Eosinophils % 21 % Basophils % 2 % Neutrophils # 4.9 (1.3-7.7) k/uL Lymphocytes # 1.4 (1.0-4.8) k/uL Monocytes # 0.6 (0-1.0) k/uL Eosinophils # 1.9 H (0-0.7) k/uL Basophils # 0.1 (0-0.2) k/uL Manual Slide Review Performed Hypochromasia Marked PT 10.8 (9.0-12.0) sec INR 1.0 (<1.2) APTT 25.1 (22.0-30.0) sec D-Dimer 0.82 H (<0.60) mg/L FEU Sodium 136 L (137-145) mmol/L Potassium 4.0 (3.5-5.1) mmol/L Chloride 101 (98-107) mmol/L Carbon Dioxide 30 (22-30) mmol/L Anion Gap 5 mmol/L BUN 21 H (7-17) mg/dL Creatinine 1.00 (0.52-1.04) mg/dL Est GFR (CKD-EPI)AfAm 69 (>60 ml/min/1.73 sqM) Est GFR (CKD-EPI)NonAf 60 (>60 ml/min/1.73 sqM) Glucose 114 H (74-99) mg/dL Plasma Lactic Acid Jack (0.7-2.0) mmol/L Calcium 8.7 (8.4-10.2) mg/dL Total Bilirubin 0.4 (0.2-1.3) mg/dL AST 39 H (14-36) U/L ALT 44 H (4-34) U/L Alkaline Phosphatase 82 (38-126) U/L Troponin I (0.000-0.034) ng/mL NT-Pro-B Natriuret Pep pg/mL Total Protein 6.3 (6.3-8.2) g/dL Albumin 3.6 (3.5-5.0) g/dL 02/06/22 02/06/22 02/06/22 Range/Units 03:47 03:47 03:47 WBC (3.8-10.6) k/uL RBC (3.80-5.40) m/uL Hgb (11.4-16.0) gm/dL Hct (34.0-46.0) % MCV (80.0-100.0) fL MCH (25.0-35.0) pg MCHC (31.0-37.0) g/dL RDW (11.5-15.5) % Plt Count (150-450) k/uL MPV Neutrophils % % Lymphocytes % % Monocytes % % Eosinophils % % Basophils % % Neutrophils # (1.3-7.7) k/uL Lymphocytes # (1.0-4.8) k/uL Monocytes # (0-1.0) k/uL Eosinophils # (0-0.7) k/uL Basophils # (0-0.2) k/uL Manual Slide Review Hypochromasia PT (9.0-12.0) sec INR (<1.2) APTT (22.0-30.0) sec D-Dimer (<0.60) mg/L FEU Sodium (137-145) mmol/L Potassium (3.5-5.1) mmol/L Chloride (98-107) mmol/L Carbon Dioxide (22-30) mmol/L Anion Gap mmol/L BUN (7-17) mg/dL Creatinine (0.52-1.04) mg/dL Est GFR (CKD-EPI)AfAm (>60 ml/min/1.73 sqM) Est GFR (CKD-EPI)NonAf (>60 ml/min/1.73 sqM) Glucose (74-99) mg/dL Plasma Lactic Acid Jack 0.8 (0.7-2.0) mmol/L Calcium (8.4-10.2) mg/dL Total Bilirubin (0.2-1.3) mg/dL AST (14-36) U/L ALT (4-34) U/L Alkaline Phosphatase (38-126) U/L Troponin I <0.012 (0.000-0.034) ng/mL NT-Pro-B Natriuret Pep 407 pg/mL Total Protein (6.3-8.2) g/dL Albumin (3.5-5.0) g/dL - EKG Data -: EKG Interpreted by Me EKG shows normal: sinus rhythm, axis (Normal), intervals (First-degree AV block, the KS interval is 214 ms. There is an intraventricular conduction delay, QRS duration is 145 ms. QTC normal at 454 ms.), QRS complexes (Intraventricular conduction delay), ST-T waves (Normal) Rate: normal (Rate 73 bpm) Disposition Clinical Impression: Congestive heart failure, COPD exacerbation Disposition: ADMITTED IP TO THIS HOSP Condition: Fair
[2022-02-06] MEDS ORDERED: HEPARIN SODIUM,PORCINE/PF 5,000 UNIT/0.5 ML SYRINGE SQ SCH (08:00)
[2022-02-06] MEDS ORDERED: LOSARTAN 25 MG TAB PO SCH (09:00)
[2022-02-06] MEDS: predniSONE 20 MG TAB PO SCH (09:06)
[2022-02-06] MEDS: FAMOTIDINE 20 MG TAB PO SCH ×2 (09:06→16:39)
[2022-02-06] MEDS: APIXABAN 5 MG TAB PO SCH ×2 (09:06→20:46)
[2022-02-06] MEDS: AMIODARONE 200 MG TAB PO SCH ×2 (09:06→20:46)
[2022-02-06] MEDS: FUROSEMIDE 20 MG TAB PO SCH (09:06)
--- NOTE | 2022-02-06 15:58 | P.HPIM ---
History of Present Illness H&P Date: 02/06/22 Chief Complaint: Shortness of breath Patient is a 66-year-old female with a known history of atrial fibrillation on anticoagulation with Eliquis, coronary artery disease status post stent placement, COPD, history of COVID-19 infection in January 2021, CVA/TIA, hyperlipidemia, GERD, history of brain aneurysm s/p clipping in 2000, chronic hypoxic respiratory failure on 2 L oxygen via nasal cannula and chronic low back pain, anxiety/depression and previous history of smoking presents to ER with complaints of worsening shortness of breath and cough. Patient has been having symptoms for the past 3 to 4 days. Patient has been having bilateral leg swelling after COVID-19 infection and has been in the same. Patient is using compression stockings at home. Denies any fever or chills. No sputum production. No chest pain. No headache or dizziness or lightheadedness. Chest x-ray showed mild increase in interstitial density could relate to some mild fibrosis. There is probably COPD. There is significant improvement in the pulmonary interstitial infiltrates compared to last exam. EKG showed sinus rhythm with first-degree AV block. Laboratory data showed WBC 9.0, hemoglobin 10.1 and platelets 229 D-dimer 0.82, sodium 136 potassium 4.0 chloride 101 BUN 21 and creatinine 1.0 and AST 39 ALT 44 and alk phos 82 troponin 0.012 and proBNP 407. Patient was tachypneic with respiratory rate 28 on admission and blood pressure was 208/93. Review of Systems Constitutional: Patient denies any fever or chills . No generalized weakness or weight loss. Abdomen: Patient denied nausea vomiting and diarrhea and abdominal pain. Cardiovascular: Patient denies any chest pain. Positive short of breath no palpitations. Leg swelling. Respiratory: Patient does have cough without sputum production. Does have shortness of breath Neurologic: Patient denied any numbness or tingling headache. Musculoskeletal: Patient denies any complaints of joint swelling or deformity. Skin: Negative Psychiatric: Negative Endocrine: No heat or cold intolerance. No recent weight gain. Genitourinary: No dysuria or hematuria. All other 14 point ROS negative except the above Past Medical History Past Medical History: Atrial Fibrillation, Asthma, Coronary Artery Disease (CAD), COPD, CVA/TIA, GERD/Reflux, Hyperlipidemia, Myocardial Infarction (NH), Osteoarthritis (OA), Vascular Disorder Additional Past Medical History / Comment(s): Pt tested covid + 01/30/21 [facility] ER. Pt recently admitted to [facility] on 01/08/21 with acute on chronic respiratory failure/tracheobronchitis severe or bronchopneumonia. 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 Last Myocardial Infarction Date:: 10/19/2019 History of Any Multi-Drug Resistant Organisms: None Reported Past Surgical History: Heart Catheterization With Stent, Orthopedic Surgery, Tubal Ligation Additional Past Surgical History / Comment(s): 2019 PCI/stent R PDA, 2000 angiogram/brain aneurysum that is clipped, abdominal aortogram with R common iliac artery PTBA/stent, left shoulder rotator cuff repair, spine lumbar disc 3x fused Past Anesthesia/Blood Transfusion Reactions: No Reported Reaction Date of Last Stent Placement:: 10/19/19 Past Psychological History: Anxiety, Depression Smoking Status: Former smoker Past Alcohol Use History: None Reported Past Drug Use History: None Reported - Past Family History Father Family Medical History: Coronary Artery Disease (CAD), Diabetes Mellitus Additional Family Medical History / Comment(s): Father had 3 vessel CABG. He at the age of 69 from heart disease. Mother Family Medical History: Myocardial Infarction (NH) Additional Family Medical History / Comment(s): Mother of a NH at the age of 42 yrs. Medications and Allergies Home Medications Medication Instructions Recorded Confirmed Type Famotidine [Pepcid] 20 mg PO BID PRN 08/04/20 02/06/22 History Amiodarone [Cordarone] 200 mg PO BID 02/27/21 02/06/22 History Apixaban [Eliquis] 5 mg PO BID 02/27/21 02/06/22 History Budesonide/Formoterol Fumarate 2 puff INHALATION RT-BID 02/27/21 02/06/22 History [Symbicort 160-4.5 Mcg Inhaler] Ipratropium-Albuterol Nebulize 3 ml INHALATION RT-QID@00,06,12,18 02/27/21 02/06/22 History [Duoneb 0.5 mg-3 mg/3 ml Soln] Montelukast [Singulair] 10 mg PO DAILY 02/27/21 02/06/22 History Albuterol Inhaler [Ventolin Hfa 2 puff INHALATION RT-QID PRN 05/13/21 02/06/22 History Inhaler] Atorvastatin [Lipitor] 80 mg PO DAILY 02/06/22 02/06/22 History Diclofenac Sodium [Voltaren] 50 mg PO BID 02/06/22 02/06/22 History Potassium Chloride [Klor-Con 10 ER] 10 meq PO DAILY 02/06/22 02/06/22 History lisinopriL [Zestril] 5 mg PO DAILY 02/06/22 02/06/22 History Allergies Allergy/AdvReac Type Severity Reaction Status Date / Time naproxen [From Naprosyn] Allergy Anaphylaxis Verified 02/06/22 07:09 Sulfa (Sulfonamide Allergy Anaphylaxis Verified 02/06/22 07:09 Antibiotics) azithromycin [From Zithromax] AdvReac does not Verified 02/06/22 07:09 take due to A-Fib Physical Exam Vitals: Vital Signs Pulse Resp BP Pulse Ox 02/06/22 07:35 78 02/06/22 07:22 72 02/06/22 07:17 99 02/06/22 06:45 73 24 97 02/06/22 05:59 73 02/06/22 05:00 75 26 H 191/79 97 02/06/22 04:03 167/83 98 02/06/22 03:36 73 26 H 177/70 98 02/06/22 03:31 75 28 H 208/93 98 Intake and Output 02/05/22 02/06/22 02/06/22 22:59 06:59 14:59 Other: Weight 104.326 kg 104.326 kg PHYSICAL EXAMINATION: Patient is lying in the bed comfortably, mild distress,wake alert and oriented.. HEENT: Normocephalic. Neck is supple. Pupils reactive. Nostrils clear. Oral cavity is moist. Neck reveals no JVD, carotid bruits, or thyromegaly. CHEST EXAMINATION: Trachea is central. Symmetrical expansion. bilateral diffuse wheezing and scattered rhonchi. Nonlabored breathing.DIAC: Normal S1, S2 with no gallops. No murmurs ABDOMEN: Soft. Bowel sounds normal. No organomegaly. No abdominal bruits. ExtremitiBilateral 2+ pedal edema. No clubbing or cyanosis Neurologically awake, alert, oriented x3 with well-coordinated movements. No focal deficits noted Skin: No rash or skin lesions. Psychiatric: Coperative. Nonsuicidal, anxious. Musculoskeletal: No joint swelling or deformity. Normal range of motion. Results CBC & Chem 7: 02/06/22 03:47 02/06/22 03:47 Labs: Abnormal Lab Results - Last 24 Hours (Table) 02/06/22 02/06/22 02/06/22 Range/Units 03:47 03:47 03:47 Hgb 10.2 L (11.4-16.0) gm/dL MCH 24.2 L (25.0-35.0) pg MCHC 29.9 L (31.0-37.0) g/dL RDW 15.7 H (11.5-15.5) % Eosinophils # 1.9 H (0-0.7) k/uL D-Dimer 0.82 H (<0.60) mg/L FEU Sodium 136 L (137-145) mmol/L BUN 21 H (7-17) mg/dL Glucose 114 H (74-99) mg/dL AST 39 H (14-36) U/L ALT 44 H (4-34) U/L Thrombosis Risk Factor Assmnt - DVT/VTE Prophylaxis DVT/VTE Prophylaxis: Pharmacologic Prophylaxis ordered - Choose All That Apply Each Factor Represents 1 point: Abnormal pulmonary function (COPD), Obesity (BMI >25) Other Risk Factors: Yes Each Risk Factor Represents 2 Points: Age 61-74 years Other congenital or acquired thrombophilia - If yes, enter type in comment: No Thrombosis Risk Factor Assessment Total Risk Factor Score: 4 Thrombosis Risk Factor Assessment Level: Moderate Risk Assessment and Plan Assessment: Shortness of breath secondary to acute COPD exacerbation Acute on chronic hypoxic respiratory failure. On oxygen at 2 L via nasal cannula Hypertensive urgency on admission History of COVID-19 infection in January 2021 with mild fibrotic changes on x-ray. Paroxysmal atrial fibrillation on anticoagulation with Eliquis. Also on amiodarone. History of CVA/TIA Bilateral lower extremity swelling Coronary artery disease with history of stent placement Hyperlipidemia GERD History of brain aneurysm status post clipping in 2000 Chronic low back pain, scoliosis Anxiety/depression DVT prophylaxis patient is already on Eliquis Plan: Patient was given a dose of methylprednisolone IV in the ER. Continue with p rednisone 40 mg daily. Continue with duo nebs and Symbicort. Oxygen supplementation currently at 4 L via nasal cannula. Continue with Lasix and losartan and titrate dose as needed. Continue pain me dications and follow-up closely. We will consult pulmonary due to fibrotic changes of the lung and hypoxemic respiratory failure. Time with Patient: Greater than 30
[2022-02-06] MEDS: MONTELUKAST 10 MG TAB PO SCH (20:46)
[2022-02-06] MEDS: ATORVASTATIN 40 MG TAB PO SCH (20:46)
[2022-02-06] MEDS: ALBUTEROL NEBULIZED 2.5 MG/3 ML INHALATION PRN (23:48)
[2022-02-07] MEDS: ALBUTEROL NEBULIZED 2.5 MG/3 ML INHALATION PRN ×2 (03:50→23:08)
[2022-02-07] MEDS: IPRATROPIUM-ALBUTEROL 3 ML NEB INHALATION SCH ×4 (08:07→19:36)
[2022-02-07] MEDS: SYMBICORT 160-4.5 MCG INHALER INHALATION SCH ×2 (08:07→19:36)
[2022-02-07] MEDS: predniSONE 20 MG TAB PO SCH (08:24)
[2022-02-07] MEDS: FAMOTIDINE 20 MG TAB PO SCH ×2 (08:24→17:22)
[2022-02-07] MEDS: Acetaminophen-Codeine 300-30mg TAB PO PRN ×2 (08:24→22:29)
[2022-02-07] MEDS: AMIODARONE 200 MG TAB PO SCH ×2 (08:25→22:30)
[2022-02-07] MEDS: APIXABAN 5 MG TAB PO SCH ×2 (08:25→22:30)
[2022-02-07] MEDS: LOSARTAN 50 MG TAB PO SCH (08:25)
[2022-02-07] MEDS: FUROSEMIDE 20 MG TAB PO SCH (08:25)
[2022-02-07] MEDS: ALPRAZolam 0.5 MG TAB PO PRN ×2 (09:20→16:27)
[2022-02-07] MEDS: methylPREDNISolone SOD SUCCI 125 MG/2 ML VIAL IV SCH ×3 (09:20→17:22)
[2022-02-07 09:24] LABS: African American GFR (CKD) 83.7 (60.0-200.0); Anion Gap 11.4 mmol/L (10.00-18.00); BUN/Creat Ratio 29.34 Ratio (12.00-20.00); Calcium 9.3 mg/dL (8.7-10.3); Carbon Dioxide 27.3 mmol/L (20.0-27.5); Non-African American GFR(CKD) 72.2 (60.0-200.0); Potassium 3.9 mmol/L (3.5-5.5)
[2022-02-07 09:25] LABS: Basophils # (A) 0.03 X 10*3/uL (0.00-0.10); Basophils % (A) 0.4 %; Eosinophils # (A) 0 X 10*3/uL (0.04-0.35); Eosinophils % (A) 0 %; HCT 32.5 % (37.2-46.3); HGB 9.5 g/dL (12.0-15.0); Immature Grans, Automated 0.5 %; Lymphocytes # (A) 1.02 X 10*3/uL (0.90-5.00); Lymphocytes % (A) 12.4 %; MCH 23.6 pg (27.0-32.0); MCHC 29.2 g/dL (32.0-37.0); MCV 80.8 fL (80.0-97.0); Monocytes # (A) 0.88 X 10*3/uL (0.20-1.00); Monocytes % (A) 10.7 %; NRBC Per 100 WBC 0 /100 WBCS (0.0-0.0); Neutrophils # (A) 6.26 X 10*3/uL (1.80-7.70); Platelet Count 266 X 10*3/uL (140-440); RBC 4.02 X 10*6/uL (4.10-5.20); RDW 16.8 % (11.5-14.5); WBC 8.23 X 10*3/uL (4.50-10.00)
--- NOTE | 2022-02-07 11:26 | P.CNPUL ---
History of Present Illness Consult date: 02/07/22 Requesting physician: Natividad Champion Reason for consult: dyspnea, COPD, abnormal CXR/CT Chief complaint: Shortness of breath, cough History of present illness: This is a very pleasant 66-year-old female patient with a known history of oxygen dependent chronic obstructive pulmonary disease, previous COVID-19 pneumonia, atrial fibrillation anticoagulated with Eliquis, coronary artery disease with previous stent placements, brain aneurysm status post clip, PT/PTT stenting of the right common iliac artery, hyperlipidemia, CVA/TIA, osteoarthritis. She was brought into the emergency room early yesterday morning by EMS with increasing shortness of breath cough and congestion. She did have some lower extremity edema. No pain. This x-ray reveals mild increased interstitial density along with some mild fibrosis. Evidence of COPD. Actual improvement in the pulmonary interstitial infiltrates compared to previous in June 2021. White count 8.2. Hemoglobin 9.5. Platelets 266. Sodium 139. Potassium 3.9. BUN 25. Creatinine 0.9. AST 39. ALT 44. Troponin negative times one. ProBNP 407. She is seen today in consultation on the regular medical floor. Currently sitting up in bed. Awake and alert. She has developed some hoarseness. She has some chest tightness and wheezing. She is maintaining O2 saturations at 90% on 4 L nasal cannula. He's been initiated on Symbicort, DuoNeb inhalations, IV Solu-Medrol. Continued on Singulair. Anticoagulated with Eliquis. Review of Systems REVIEW OF SYSTEMS: CONSTITUTIONAL: Denies any recent significant weight loss or weight gain. EYES: Denies change in vision. EARS, NOSE, MOUTH, THROAT: Denies headaches, positive for hoarseness. CARDIOVASCULAR: Denies chest pain, palpitations or syncopal episodes. RESPIRATORY: Positive for shortness of breath, cough, congestion no hemoptysis. GASTROINTESTINAL: Denies change in appetite, denies abdominal pain GENITOURINARY: Denies hematuria, denies infections. MUSKULOSKELETAL: Denies pain, positive for minor swelling. INTEGUMENTARY: Denies rash, denies eczema. NEUROLOGICAL: Denies recent memory loss, no recent seizure activity. PSYCHIATRIC: Denies anxiety, denies depression. HEMATOLOGIC/LYMPHATIC: Denies anemia, denies enlarged lymph nodes. Past Medical History Past Medical History: Atrial Fibrillation, Asthma, Coronary Artery Disease (CAD), COPD, CVA/TIA, GERD/Reflux, Hyperlipidemia, Myocardial Infarction (MS), Osteoarthritis (OA), Vascular Disorder Additional Past Medical History / Comment(s): Pt tested covid + 01/30/21 [facility] ER. Pt recently admitted to [facility] on 01/08/21 with acute on chronic respiratory failure/tracheobronchitis severe or bronchopneumonia. 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 Last Myocardial Infarction Date:: 10/19/2019 History of Any Multi-Drug Resistant Organisms: None Reported Past Surgical History: Heart Catheterization With Stent, Orthopedic Surgery, Tubal Ligation Additional Past Surgical History / Comment(s): 2019 PCI/stent R PDA, 2000 angiog concepcion/brain aneurysum that is clipped, abdominal aortogram with R common iliac artery PTBA/stent, left shoulder rotator cuff repair, spine lumbar disc 3x fused Past Anesthesia/Blood Transfusion Reactions: No Reported Reaction Date of Last Stent Placement:: 10/19/19 Past Psychological History: Anxiety, Depression Smoking Status: Former smoker Past Alcohol Use History: None Reported Past Drug Use History: None Reported - Past Family History Father Family Medical History: Coronary Artery Disease (CAD), Diabetes Mellitus Additional Family Medical History / Comment(s): Father had 3 vessel CABG. He at the age of 69 from heart disease. Mother Family Medical History: Myocardial Infarction (MS) Additional Family Medical History / Comment(s): Mother of a MS at the age of 42 yrs. Medications and Allergies Home Medications Medication Instructions Recorded Confirmed Type Famotidine [Pepcid] 20 mg PO BID PRN 08/04/20 02/06/22 History Amiodarone [Cordarone] 200 mg PO BID 02/27/21 02/06/22 History Apixaban [Eliquis] 5 mg PO BID 02/27/21 02/06/22 History Budesonide/Formoterol Fumarate 2 puff INHALATION RT-BID 02/27/21 02/06/22 History [Symbicort 160-4.5 Mcg Inhaler] Ipratropium-Albuterol Nebulize 3 ml INHALATION RT-QID@00,06,12,18 02/27/21 02/06/22 History [Duoneb 0.5 mg-3 mg/3 ml Soln] Montelukast [Singulair] 10 mg PO DAILY 02/27/21 02/06/22 History Albuterol Inhaler [Ventolin Hfa 2 puff INHALATION RT-QID PRN 05/13/21 02/06/22 History Inhaler] Atorvastatin [Lipitor] 80 mg PO DAILY 02/06/22 02/06/22 History Diclofenac Sodium [Voltaren] 50 mg PO BID 02/06/22 02/06/22 History Potassium Chloride [Klor-Con 10 ER] 10 meq PO DAILY 02/06/22 02/06/22 History lisinopriL [Zestril] 5 mg PO DAILY 02/06/22 02/06/22 History Allergies Allergy/AdvReac Type Severity Reaction Status Date / Time naproxen [From Naprosyn] Allergy Anaphylaxis Verified 02/06/22 07:09 Sulfa (Sulfonamide Allergy Anaphylaxis Verified 02/06/22 07:09 Antibiotics) azithromycin [From Zithromax] AdvReac does not Verified 02/06/22 07:09 take due to A-Fib Physical Exam Vitals: Vital Signs Temp Pulse Pulse Resp BP BP Pulse Ox 02/07/22 08:21 74 02/07/22 08:10 98 02/07/22 08:07 76 02/07/22 07:13 97.9 F 74 17 128/65 98 02/07/22 04:01 80 02/07/22 03:51 78 02/07/22 00:35 98.5 F 78 18 144/66 98 02/07/22 00:00 80 02/06/22 23:49 80 02/06/22 20:28 80 02/06/22 20:17 78 02/06/22 19:28 98.5 F 73 17 156/68 95 02/06/22 16:14 87 02/06/22 16:00 80 02/06/22 15:52 98.2 F 82 22 134/78 97 02/06/22 15:17 96 02/06/22 13:00 81 18 168/70 02/06/22 11:39 73 02/06/22 11:30 75 Intake and Output 02/06/22 02/07/22 02/07/22 22:59 06:59 14:59 Intake Total 1080 Balance 1080 Intake: Oral 1080 Other: Voiding Method Toilet Toilet # Voids 1 GENERAL EXAM: Alert, pleasant 66-year-old female, on 4 L nasal cannula, fairly comfortable in no apparent distress. HEAD: Normocephalic. EYES: Normal reaction of pupils, equal size. NOSE: Clear with pink turbinates. THROAT: No erythema or exudates. NECK: No masses, no JVD. CHEST: No chest wall deformity. LUNGS: Equal air entry with bilateral end expiratory wheeze. CVS: S1 and S2 normal with no audible murmur, regular rhythm. ABDOMEN: No hepatosplenomegaly, normal bowel sounds, no guarding or rigidity. SPINE: No scoliosis or deformity SKIN: No rashes CENTRAL NERVOUS SYSTEM: No focal deficits, tone is normal in all 4 extremities. EXTREMITIES: There is 1+ peripheral edema. No clubbing, no cyanosis. Peripheral pulses are intact. Results - Laboratory Findings CBC and BMP: 02/07/22 04:45 02/07/22 04:45 PT/INR, D-dimer PT 10.8 sec (9.0-12.0) 02/06/22 03:47 INR 1.0 (<1.2) 02/06/22 03:47 D-Dimer 0.82 mg/L FEU (<0.60) H 02/06/22 03:47 Abnormal lab findings: Abnormal Labs 02/06/22 02/06/22 02/06/22 03:47 03:47 03:47 RBC Hgb 10.2 L Hct MCH 24.2 L MCHC 29.9 L RDW 15.7 H Eosinophils # 1.9 H D-Dimer 0.82 H Sodium 136 L BUN 21 H BUN/Creatinine Ratio Glucose 114 H AST 39 H ALT 44 H 02/07/22 02/07/22 04:45 04:45 RBC 4.02 L Hgb 9.5 L Hct 32.5 L MCH 23.6 L MCHC 29.2 L RDW 16.8 H Eosinophils # 0 L D-Dimer Sodium BUN BUN/Creatinine Ratio 29.34 H Glucose AST ALT - Diagnostic Findings Chest x-ray: image reviewed Assessment and Plan Assessment: 1 Acute exacerbation of severe oxygen dependent chronic obstructive pulmonary disease 2 History of COVID 19 pneumonia, with possible postinflammatory pulmonary fibrotic changes on chest x-ray. 3 History of atrial fibrillation. Currently in sinus rhythm. Anticoagulated with Eliquis. 4 History of CAD. 5 History of CVA. 6 History of gastroesophageal reflux disease. 7 Hyperlipidemia. 8 Myocardial infarction. 9 Status post clipping of a brain aneurysm, 2000. 10 Chronic hypoxemic respiratory failure. 11 Scoliosis. 12 CAD with previous stent placement. 13 Peripheral vascular disease Plan: The patient was seen and evaluated Chest x-ray and labs reviewed Continue IV Solu-Medrol, Symbicort, DuoNeb inhalations Obtain a pro-calcitonin Check for COVID-19, RSV, influenza Titrate the FiO2 as tolerated We will continue to follow and make further recommendations based on her clinical status I have personally seen and examined the patient, performed the documentation and the assessment and plan as written. Number of minutes spent on the visit: 20.
[2022-02-07] MEDS: ATORVASTATIN 40 MG TAB PO SCH (22:30)
[2022-02-07] MEDS: MONTELUKAST 10 MG TAB PO SCH (22:30)
[2022-02-08] MEDS: methylPREDNISolone SOD SUCCI 125 MG/2 ML VIAL IV SCH ×5 (01:00→23:48)
--- NOTE | 2022-02-08 03:06 | P.PN ---
Subjective Progress Note Date: 02/07/22 Patient is a 66-year-old female with a known history of atrial fibrillation on anticoagulation with Eliquis, coronary artery disease status post stent placement, COPD, history of COVID-19 infection in January 2021, CVA/TIA, hyperlipidemia, GERD, history of brain aneurysm s/p clipping in 2000, chronic hypoxic respiratory failure on 2 L oxygen via nasal cannula and chronic low back pain, anxiety/depression and previous history of smoking presents to ER with complaints of worsening shortness of breath and cough. Patient has been having symptoms for the past 3 to 4 days. Patient has been having bilateral leg swelling after COVID-19 infection and has been in the same. Patient is using compression stockings at home. Denies any fever or chills. No sputum production. No chest pain. No headache or dizziness or lightheadedness. Chest x-ray showed mild increase in interstitial density could relate to some mild fibrosis. There is probably COPD. There is significant improvement in the pulmonary interstitial infiltrates compared to last exam. EKG showed sinus rhythm with first-degree AV block. Laboratory data showed WBC 9.0, hemoglobin 10.1 and platelets 229 D-dimer 0.82, sodium 136 potassium 4.0 chloride 101 BUN 21 and creatinine 1.0 and AST 39 ALT 44 and alk phos 82 troponin 0.012 and proBNP 407. Patient was tachypneic with respiratory rate 28 on admission and blood pressure was 208/93. 02/07/2022 Patient is seen and evaluated in follow up today and is being closely monitored with pulmonary following. Patient is continued on IV steroids along with breathing inhalational treatments and will continue. Patient with significant wheezing on inspiration and expiration with coughing spells noted on exam. Patient normally wears 2 liters at home chronically and has been requiring more oxygen and currently on 4-5L via [place]. Patient is afebrile and denies chest pain. Review of systems: Constitutional: Denies chills, Denies fever Cardiovascular: Denies chest pain, Denies palpitations Respiratory: reports continued dyspnea and wheezing with continued frequent coughing spells Gastrointestinal: Denies abdominal pain, Denies nausea, Denies vomiting Genitourinary: Denies dysuria or retention Neuro: No reports of weakness or numbness Active Medications Acetaminophen/Codeine Phosphate (Acetaminophen-Codeine 300-30mg Tab) 1 each PO Q6H PRN PRN Reason: Pain Last Admin: 02/07/22 22:29 Dose: 1 each Documented by: Albuterol Sulfate (Albuterol Nebulized 2.5 Mg/3 Ml) 2.5 mg INHALATION RT-Q4H PRN PRN Reason: Dyspnea Last Admin: 02/07/22 23:08 Dose: 2.5 mg Documented by: Albuterol/Ipratropium (Ipratropium-Albuterol 3 Ml Neb) 3 ml INHALATION RT-QID [facility] Last Admin: 02/07/22 19:36 Dose: 3 ml Documented by: Alprazolam (Alprazolam 0.5 Mg Tab) 0.5 mg PO BID PRN PRN Reason: Anxiety Last Admin: 02/07/22 16:27 Dose: 0.5 mg Documented by: Amiodarone HCl (Amiodarone 200 Mg Tab) 200 mg PO BID [facility] Last Admin: 02/07/22 22:30 Dose: 200 mg Documented by: Apixaban (Apixaban 5 Mg Tab) 5 mg PO BID [facility]; Protocol Last Admin: 02/07/22 22:30 Dose: 5 mg Documented by: Atorvastatin Calcium (Atorvastatin 40 Mg Tab) 40 mg PO HS@2100 [facility] Last Admin: 02/07/22 22:30 Dose: 40 mg Documented by: Budesonide/Formoterol Fumarate (Symbicort 160-4.5 Mcg Inhaler) 2 puff INHALATION RT-BID [facility] Last Admin: 02/07/22 19:36 Dose: 2 puff Documented by: Famotidine (Famotidine 20 Mg Tab) 20 mg PO BID@0900,1700 [facility] Last Admin: 02/07/22 17:22 Dose: 20 mg Documented by: Furosemide (Furosemide 20 Mg Tab) 20 mg PO DAILY [facility] Last Admin: 02/07/22 08:25 Dose: 20 mg Documented by: Losartan Potassium (Losartan 50 Mg Tab) 50 mg PO DAILY [facility] Last Admin: 02/07/22 08:25 Dose: 50 mg Documented by: Methylprednisolone Sodium Succinate (Methylprednisolone Sod Succi 125 Mg/2 Ml Vial) 60 mg IV Q6HR [facility] Last Admin: 02/08/22 01:00 Dose: 60 mg Documented by: Montelukast Sodium (Montelukast 10 Mg Tab) 10 mg PO HS [facility] Last Admin: 04/15/22 22:30 Dose: 10 mg Documented by: PHYSICAL EXAMINATION: Patient is lying in the bed comfortably, no acute distress, sleeping although easily arousable, alert and oriented x3.. HEENT: Normocephalic. Neck is supple. Pupils reactive. Nostrils clear. Oral cavity is moist. Neck reveals no JVD, carotid bruits, or thyromegaly. CHEST EXAMINATION: Trachea is central. Symmetrical expansion. Normal S1, S2 with no gallops. No murmurs Respiratory: bilateral diffuse wheezing and scattered rhonchi. Nonlabored breathing ABDOMEN: Soft. Bowel sounds normal. No organomegaly. No abdominal bruits. Extremities: Bilateral 2+ pedal edema. No clubbing or cyanosis Neurologically awake, alert, oriented x3 with well-coordinated movements. No focal deficits noted Skin: No rash or skin lesions. Psychiatric: Cooperative. Non-suicidal, anxious. Musculoskeletal: No joint swelling or deformity. Normal range of motion. Assessment: Shortness of breath secondary to acute COPD exacerbation Acute on chronic hypoxic respiratory failure. On oxygen at 2 L via nasal cannula at home Hypertensive urgency on admission, improving History of COVID-19 infection in January 2021 with mild fibrotic changes on x-ray. Paroxysmal atrial fibrillation on anticoagulation with Eliquis. Also on amiodarone. History of CVA/TIA Bilateral lower extremity swelling Coronary artery disease with history of stent placement Hyperlipidemia GERD History of brain aneurysm status post clipping in 2000 Chronic low back pain, scoliosis Anxiety/depression DVT prophylaxis patient is already on Eliquis GI prophylaxis Full code Plan: Patient was given a dose of methylprednisolone IV in the ER. Continued on oral prednisone 40 mg daily although patient was evaluated by pulmonary and being transitioned to IV steroids 60mg q6 hours. Continues with duo nebs and Symbicort. Oxygen supplementation currently at 4 L via nasal cannula. Wean as tolerated. Continue with Lasix and losartan and titrate dose as needed. Continue pain medications and follow-up closely. pulmonary consulted due to fibrotic changes of the lung and hypoxemic respiratory failure. Appreciate input and recommendations. Encouraged the patient to elevate lower extremities while at rest and continue with compression stockings. Recommend repeat am labs and close monitoring. The impression and plan of care has been dictated by Gail Giraldo, Nurse Practitioner as directed. Dr. Jaycee MD I have performed a history and examination and MDM of this patient, discussed the same with the dictator, and agree with the dictator's assessment and plan as written ,documented as a scribe. Based on total visit time, I have performed more than 50% of the visit. Objective - Vital Signs Vital signs: Vital Signs Temp 98.4 F 02/07/22 17:41 Pulse 76 02/07/22 23:20 Resp 18 02/07/22 19:50 BP 103/56 02/07/22 17:41 Pulse Ox 98 02/07/22 17:41 Intake & Output 02/07/22 02/07/22 02/08/22 06:59 18:59 06:59 Other: Voiding Method Toilet Toilet # Voids 3 # Bowel Movements 1 - Labs CBC & Chem 7: 02/07/22 04:45 02/07/22 04:45 Labs: Abnormal Lab Results - Last 24 Hours (Table) 02/07/22 02/07/22 Range/Units 04:45 04:45 RBC 4.02 L (4.10-5.20) X 10*6/uL Hgb 9.5 L (12.0-15.0) g/dL Hct 32.5 L (37.2-46.3) % MCH 23.6 L (27.0-32.0) pg MCHC 29.2 L (32.0-37.0) g/dL RDW 16.8 H (11.5-14.5) % Eosinophils # 0 L (0.04-0.35) X 10*3/uL BUN/Creatinine Ratio 29.34 H (12.00-20.00) Ratio
[2022-02-08] MEDS: ALBUTEROL NEBULIZED 2.5 MG/3 ML INHALATION PRN ×2 (03:31→23:22)
[2022-02-08 05:35] LABS: Basophils % (A) 0 %; Eosinophils % (A) 0 %; HCT 33.5 % (34.0-46.0); HGB 10.1 gm/dL (11.4-16.0); Hypochromasia Marked; Lymphocytes # (A) 0.4 k/uL (1.0-4.8); Lymphocytes % (A) 7 %; MCH 24.5 pg (25.0-35.0); MCHC 30.2 g/dL (31.0-37.0); MCV 81.1 fL (80.0-100.0); Mean Platelet Volume 7.2; Monocytes # (A) 0.2 k/uL (0-1.0); Monocytes % (A) 3 %; Neutrophils # (A) 4.8 k/uL (1.3-7.7); Neutrophils % (A) 89 %; Platelet Count 235 k/uL (150-450); RBC 4.13 m/uL (3.80-5.40); WBC 5.3 k/uL (3.8-10.6)
[2022-02-08 05:52] LABS: African American GFR (CKD) >90 (>60 ml/min/1.73 sqM); Anion Gap 3 mmol/L; Blood Urea Nitrogen 24 mg/dL (7-17); Calcium 8.9 mg/dL (8.4-10.2); Carbon Dioxide 33 mmol/L (22-30); Chloride 100 mmol/L (98-107); Glucose 138 mg/dL (74-99); Non-African American GFR(CKD) >90 (>60 ml/min/1.73 sqM); Potassium 3.9 mmol/L (3.5-5.1); Sodium 136 mmol/L (137-145)
[2022-02-08 07:13] LABS: Glucose,Whole Blood 136 mg/dL (75-99)
[2022-02-08] MEDS: SYMBICORT 160-4.5 MCG INHALER INHALATION SCH ×2 (07:25→19:40)
[2022-02-08] MEDS: IPRATROPIUM-ALBUTEROL 3 ML NEB INHALATION SCH ×4 (07:25→19:40)
[2022-02-08] MEDS: FAMOTIDINE 20 MG TAB PO SCH ×2 (09:08→16:55)
[2022-02-08] MEDS: FUROSEMIDE 20 MG TAB PO SCH (09:08)
[2022-02-08] MEDS: APIXABAN 5 MG TAB PO SCH ×2 (09:08→19:51)
[2022-02-08] MEDS: AMIODARONE 200 MG TAB PO SCH ×2 (09:08→19:52)
[2022-02-08] MEDS: LOSARTAN 50 MG TAB PO SCH (09:09)
[2022-02-08] MEDS: Acetaminophen-Codeine 300-30mg TAB PO PRN ×2 (09:25→21:21)
--- NOTE | 2022-02-08 11:01 | P.PN ---
Subjective Progress Note Date: 02/08/22 Principal diagnosis: COPD exacerbation This is a very pleasant 66-year-old female patient with a known history of oxygen dependent chronic obstructive pulmonary disease, previous COVID-19 pneumonia, atrial fibrillation anticoagulated with Eliquis, coronary artery disease with previous stent placements, brain aneurysm status post clip, PT/PTT stenting of the right common iliac artery, hyperlipidemia, CVA/TIA, osteoarthritis. She was brought into the emergency room early yesterday morning by EMS with increasing shortness of breath cough and congestion. She did have some lower extremity edema. No pain. This x-ray reveals mild increased interstitial density along with some mild fibrosis. Evidence of COPD. Actual improvement in the pulmonary interstitial infiltrates compared to previous in June 2021. White count 8.2. Hemoglobin 9.5. Platelets 266. Sodium 139. Potassium 3.9. BUN 25. Creatinine 0.9. AST 39. ALT 44. Troponin negative times one. ProBNP 407. She is seen today in consultation on the regular medical floor. Currently sitting up in bed. Awake and alert. She has developed some hoarseness. She has some chest tightness and wheezing. She is maintaining O2 saturations at 90% on 4 L nasal cannula. He's been initiated on Symbicort, DuoNeb inhalations, IV Solu-Medrol. Continued on Singulair. Anticoagulated with Eliquis. The patient is seen today 02/08/2022 in follow-up on the regular medical floor. She is improved today compared to yesterday. A bit less bronchospastic and wheezy. She is still not quite back to her baseline. Dyspneic on exertion. Dyspneic with conversation. Anxious. She is maintaining good O2 saturations in the 90s on 3 L/m per nasal cannula. She's been afebrile. White count 5.3. Hemoglobin 10.1. Platelets 235. Sodium 136. Potassium 3.9. Bicarb 33. BUN 24. Creatinine 0.64. Glucose 138. Influenza, RSV and COVID-19 screen were all negative. Pro-calcitonin 0.11. She remains on Symbicort, DuoNeb inhalations, IV Solu-Medrol and Singulair. Anticoagulated with Eliquis. Objective - Vital Signs Vital signs: Vital Signs Temp 98.0 F 02/08/22 08:00 Pulse 81 02/08/22 08:00 Resp 18 02/08/22 08:00 BP 171/65 02/08/22 08:00 Pulse Ox 93 L 02/08/22 08:00 Intake & Output 02/07/22 02/08/22 02/08/22 18:59 06:59 18:59 Other: Voiding Method Toilet Toilet Toilet # Voids 3 1 # Bowel Movements 1 - Exam GENERAL EXAM: Alert, 66-year-old female, on 3 L nasal cannula, comfortable in no apparent distress. HEAD: Normocephalic. EYES: Normal reaction of pupils, equal size. NOSE: Clear with pink turbinates. THROAT: No erythema or exudates. NECK: No masses, no JVD. CHEST: No chest wall deformity. LUNGS: Equal air entry with bilateral end expiratory wheeze. CVS: S1 and S2 normal with no audible murmur, regular rhythm. ABDOMEN: No hepatosplenomegaly, normal bowel sounds, no guarding or rigidity. SPINE: No scoliosis or deformity SKIN: No rashes CENTRAL NERVOUS SYSTEM: No focal deficits, tone is normal in all 4 extremities. EXTREMITIES: There is no peripheral edema. No clubbing, no cyanosis. Peripheral pulses are intact. - Labs CBC & Chem 7: 02/08/22 05:15 02/08/22 05:15 Labs: Abnormal Lab Results - Last 24 Hours (Table) 02/07/22 02/08/22 02/08/22 Range/Units 04:45 05:15 05:15 Hgb 10.1 L (11.4-16.0) gm/dL Hct 33.5 L (34.0-46.0) % MCH 24.5 L (25.0-35.0) pg MCHC 30.2 L (31.0-37.0) g/dL RDW 16.0 H (11.5-15.5) % Lymphocytes # 0.4 L (1.0-4.8) k/uL Sodium 136 L (137-145) mmol/L Carbon Dioxide 33 H (22-30) mmol/L BUN 24 H (7-17) mg/dL Glucose 138 H (74-99) mg/dL POC Glucose (mg/dL) (75-99) mg/dL Procalcitonin 0.11 H (0.02-0.09) ng/mL 02/08/22 Range/Units 07:11 Hgb (11.4-16.0) gm/dL Hct (34.0-46.0) % MCH (25.0-35.0) pg MCHC (31.0-37.0) g/dL RDW (11.5-15.5) % Lymphocytes # (1.0-4.8) k/uL Sodium (137-145) mmol/L Carbon Dioxide (22-30) mmol/L BUN (7-17) mg/dL Glucose (74-99) mg/dL POC Glucose (mg/dL) 136 H (75-99) mg/dL Procalcitonin (0.02-0.09) ng/mL Assessment and Plan Assessment: 1 Acute exacerbation of severe oxygen dependent chronic obstructive pulmonary di sease 2 History of COVID 19 pneumonia, with possible postinflammatory pulmonary fibrotic changes on chest x-ray. 3 History of atrial fibrillation. Currently in sinus rhythm. Anticoagulated with Eliquis. 4 History of CAD. 5 History of CVA. 6 History of gastroesophageal reflux disease. 7 Hyperlipidemia. 8 Myocardial infarction. 9 Status post clipping of a brain aneurysm, 2000. 10 Chronic hypoxemic respiratory failure. 11 Scoliosis. 12 CAD with previous stent placement. 13 Peripheral vascular disease Plan: The patient was seen and evaluated Improved but not back to baseline Continue IV Solu-Medrol, Symbicort, DuoNeb inhalations Titrate the FiO2 as tolerated We will continue to follow I have personally seen and examined the patient, performed the documentation and the assessment and plan as written. Number of minutes spent on the visit: 10.
[2022-02-08] MEDS: ALPRAZolam 0.5 MG TAB PO PRN ×2 (11:25→23:52)
[2022-02-08 11:35] LABS: Glucose,Whole Blood 164 mg/dL (75-99)
[2022-02-08 16:43] LABS: Glucose,Whole Blood 172 mg/dL (75-99)
[2022-02-08] MEDS: ATORVASTATIN 40 MG TAB PO SCH (19:51)
[2022-02-08] MEDS: MONTELUKAST 10 MG TAB PO SCH (19:52)
[2022-02-08 20:39] LABS: Glucose,Whole Blood 190 mg/dL (75-99)
[2022-02-08] MEDS: BENZONATATE 100 MG CAP PO SCH (21:21)
[2022-02-09] MEDS: ALBUTEROL NEBULIZED 2.5 MG/3 ML INHALATION PRN ×2 (03:15→23:36)
[2022-02-09] MEDS: methylPREDNISolone SOD SUCCI 125 MG/2 ML VIAL IV SCH ×4 (05:55→23:19)
[2022-02-09 07:02] LABS: Glucose,Whole Blood 143 mg/dL (75-99)
[2022-02-09] MEDS: IPRATROPIUM-ALBUTEROL 3 ML NEB INHALATION SCH ×4 (08:15→19:09)
[2022-02-09] MEDS: SYMBICORT 160-4.5 MCG INHALER INHALATION SCH ×2 (08:15→19:09)
[2022-02-09 08:49] LABS: Basophils # (A) 0.01 X 10*3/uL (0.00-0.10); Basophils % (A) 0.1 %; Eosinophils # (A) 0 X 10*3/uL (0.04-0.35); Eosinophils % (A) 0 %; HCT 33.5 % (37.2-46.3); HGB 9.6 g/dL (12.0-15.0); Immature Grans, Automated 0.3 %; Lymphocytes # (A) 0.36 X 10*3/uL (0.90-5.00); Lymphocytes % (A) 4.1 %; MCHC 28.7 g/dL (32.0-37.0); MCV 80.3 fL (80.0-97.0); Monocytes # (A) 0.38 X 10*3/uL (0.20-1.00); Monocytes % (A) 4.3 %; NRBC Per 100 WBC 0 /100 WBCS (0.0-0.0); Neutrophils # (A) 7.99 X 10*3/uL (1.80-7.70); Neutrophils % (A) 91.2 %; Platelet Count 270 X 10*3/uL (140-440); RBC 4.17 X 10*6/uL (4.10-5.20); WBC 8.77 X 10*3/uL (4.50-10.00)
[2022-02-09] MEDS: BENZONATATE 100 MG CAP PO SCH ×2 (08:55→20:02)
[2022-02-09] MEDS: LOSARTAN 50 MG TAB PO SCH (08:55)
[2022-02-09] MEDS: APIXABAN 5 MG TAB PO SCH ×2 (08:55→20:02)
[2022-02-09] MEDS: FUROSEMIDE 20 MG TAB PO SCH (08:55)
[2022-02-09] MEDS: AMIODARONE 200 MG TAB PO SCH ×2 (08:55→20:02)
[2022-02-09] MEDS: Acetaminophen-Codeine 300-30mg TAB PO PRN ×2 (08:56→20:02)
[2022-02-09] MEDS: FAMOTIDINE 20 MG TAB PO SCH ×2 (08:56→17:28)
[2022-02-09 08:58] LABS: African American GFR (CKD) 106.1 (60.0-200.0); Anion Gap 22.1 mmol/L (10.00-18.00); BUN/Creat Ratio 34.57 Ratio (12.00-20.00); Blood Urea Nitrogen 24.2 mg/dL (9.0-27.0); Calcium 9.2 mg/dL (8.7-10.3); Carbon Dioxide 17.9 mmol/L (20.0-27.5); Non-African American GFR(CKD) 91.6 (60.0-200.0); Potassium 4.1 mmol/L (3.5-5.5)
[2022-02-09 10:56] LABS: Glucose,Whole Blood 137 mg/dL (75-99)
[2022-02-09] MEDS: ALPRAZolam 0.5 MG TAB PO PRN ×2 (11:17→23:19)
--- NOTE | 2022-02-09 11:19 | P.PN ---
Subjective Progress Note Date: 02/09/22 Principal diagnosis: Shortness of breath This is a very pleasant 66-year-old female patient with a known history of oxygen dependent chronic obstructive pulmonary disease, previous COVID-19 pneumonia, atrial fibrillation anticoagulated with Eliquis, coronary artery disease with previous stent placements, brain aneurysm status post clip, PT/PTT stenting of the right common iliac artery, hyperlipidemia, CVA/TIA, osteoarthritis. She was brought into the emergency room early yesterday morning by EMS with increasing shortness of breath cough and congestion. She did have some lower extremity edema. No pain. This x-ray reveals mild increased interstitial density along with some mild fibrosis. Evidence of COPD. Actual improvement in the pulmonary interstitial infiltrates compared to previous in June 2021. White count 8.2. Hemoglobin 9.5. Platelets 266. Sodium 139. Potassium 3.9. BUN 25. Creatinine 0.9. AST 39. ALT 44. Troponin negative times one. ProBNP 407. She is seen today in consultation on the regular medical floor. Currently sitting up in bed. Awake and alert. She has developed some hoarseness. She has some chest tightness and wheezing. She is maintaining O2 saturations at 90% on 4 L nasal cannula. He's been initiated on Symbicort, DuoNeb inhalations, IV Solu-Medrol. Continued on Singulair. Anticoagulated with Eliquis. The patient is seen today 02/08/2022 in follow-up on the regular medical floor. She is improved today compared to yesterday. A bit less bronchospastic and wheezy. She is still not quite back to her baseline. Dyspneic on exertion. Dyspneic with conversation. Anxious. She is maintaining good O2 saturations in the 90s on 3 L/m per nasal cannula. She's been afebrile. White count 5.3. Hemoglobin 10.1. Platelets 235. Sodium 136. Potassium 3.9. Bicarb 33. BUN 24. Creatinine 0.64. Glucose 138. Influenza, RSV and COVID-19 screen were all negative. Pro-calcitonin 0.11. She remains on Symbicort, DuoNeb inhalations, IV Solu-Medrol and Singulair. Anticoagulated with Eliquis. On 02/09/2022 patient seen in follow-up on medical surgical floor, she still tight and wheezy, but feeling a bit better. Short of breath with exertion, she remains on 3 L of oxygen her pulse ox is above 92%, she is afebrile, hemodynamically she's been stable, no chest discomfort, no worsening dyspnea. Appears to be breathing comfortably at rest. Remains on Symbicort, DuoNeb, she is on IV Solu-Medrol 60 mg every 6 hours. Today's labs have been reviewed, white blood cell count is 8.7, hemoglobin is 9.6, sodium is 139, potassium is 4.1, chloride is 99, CO2 is 17.9, anion gap was 22, BUN is 24, creatinine 0.7. Pro-calcitonin level was negative at 0.11, patient tested negative for COVID-19, influenza A and RSV. Chest x-ray showed mild increased interstitial density. Objective - Vital Signs Vital signs: Vital Signs Temp 98.2 F 02/09/22 08:00 Pulse 72 02/09/22 11:05 Resp 18 02/09/22 08:00 BP 173/69 02/09/22 08:00 Pulse Ox 96 02/09/22 08:00 Intake & Output 02/08/22 02/09/22 02/09/22 18:59 06:59 18:59 Intake Total 1080 Balance 1080 Intake: Oral 1080 Other: Voiding Method Toilet Toilet Toilet # Voids 3 2 - Exam GENERAL EXAM: Alert, very pleasant, 66-year-old white female, resting comfortably in bed, on 3 L of oxygen pulse ox of 96% comfortable in no apparent distress. HEAD: Normocephalic/atraumatic. EYES: Normal reaction of pupils, equal size. Conjunctiva pink, sclera white. NOSE: Clear with pink turbinates. THROAT: No erythema or exudates. NECK: No masses, no JVD, no thyroid enlargement, no adenopathy. CHEST: No chest wall deformity. Symmetrical expansion. LUNGS: Equal air entry with diffuse wheezes and crackles CVS: Regular rate and rhythm, normal S1 and S2, no gallops, no murmurs, no rubs ABDOMEN: Soft, nontender. No hepatosplenomegaly, normal bowel sounds, no guarding or rigidity. EXTREMITIES: No clubbing, no edema, no cyanosis, 2+ pulses and upper and lower extremities. MUSCULOSKELETAL: Muscle strength and tone normal. SPINE: No scoliosis or deformity SKIN: No rashes CENTRAL NERVOUS SYSTEM: Alert and oriented -3. No focal deficits, tone is normal in all 4 extremities. PSYCHIATRIC: Alert and oriented -3. Appropriate affect. Intact judgment and insight. - Labs CBC & Chem 7: 02/09/22 05:06 02/09/22 05:06 Labs: Abnormal Lab Results - Last 24 Hours (Table) 02/08/22 02/08/22 02/08/22 Range/Units 11:34 16:41 20:37 Hgb (12.0-15.0) g/dL Hct (37.2-46.3) % MCH (27.0-32.0) pg MCHC (32.0-37.0) g/dL RDW (11.5-14.5) % Neutrophils # (1.80-7.70) X 10*3/uL Lymphocytes # (0.90-5.00) X 10*3/uL Eosinophils # (0.04-0.35) X 10*3/uL Carbon Dioxide (20.0-27.5) mmol/L Anion Gap (10.00-18.00) mmol/L BUN/Creatinine Ratio (12.00-20.00) Ratio Glucose (70-110) mg/dL POC Glucose (mg/dL) 164 H 172 H 190 H (75-99) mg/dL 02/09/22 02/09/22 02/09/22 Range/Units 05:06 05:06 07:01 Hgb 9.6 L (12.0-15.0) g/dL Hct 33.5 L (37.2-46.3) % MCH 23.0 L (27.0-32.0) pg MCHC 28.7 L (32.0-37.0) g/dL RDW 17.0 H (11.5-14.5) % Neutrophils # 7.99 H (1.80-7.70) X 10*3/uL Lymphocytes # 0.36 L (0.90-5.00) X 10*3/uL Eosinophils # 0 L (0.04-0.35) X 10*3/uL Carbon Dioxide 17.9 L (20.0-27.5) mmol/L Anion Gap 22.10 H (10.00-18.00) mmol/L BUN/Creatinine Ratio 34.57 H (12.00-20.00) Ratio Glucose 150 H (70-110) mg/dL POC Glucose (mg/dL) 143 H (75-99) mg/dL 02/09/22 Range/Units 10:55 Hgb (12.0-15.0) g/dL Hct (37.2-46.3) % MCH (27.0-32.0) pg MCHC (32.0-37.0) g/dL RDW (11.5-14.5) % Neutrophils # (1.80-7.70) X 10*3/uL Lymphocytes # (0.90-5.00) X 10*3/uL Eosinophils # (0.04-0.35) X 10*3/uL Carbon Dioxide (20.0-27.5) mmol/L Anion Gap (10.00-18.00) mmol/L BUN/Creatinine Ratio (12.00-20.00) Ratio Glucose (70-110) mg/dL POC Glucose (mg/dL) 137 H (75-99) mg/dL Assessment and Plan Plan: Assessment: #1. Acute on chronic dyspnea, related to acute exacerbation of severe oxygen- dependent COPD #2. History of COVID-19 pneumonia with possible postinflammatory fibrotic changes on chest x-ray #3. History of atrial fibrillation, paroxysmal, currently in sinus mechanism, on [place] #4. History of COPD #5. History of CVA #6. History of GERD #7. Hyperlipidemia #8. Myocardial infarction, history of #9. History of brain aneurysm clipping in 2000 #10. Chronic hypoxic respiratory failure related to COPD #11. Scoliosis #12. Peripheral vascular disease #13. History of CAD with previous PCI and stenting Plan: Continue current medical treatment Continue steroids Continue nebulized bronchodilators Vital signs are stable Patient reports improvement in her breathing No acute events overnight We'll continue to follow I have personally seen and examined the patient, performed the documentation and the assessment and plan as written. Number of minutes spent on the visit: [10] Time with Patient: Less than 30
[2022-02-09 16:19] LABS: Glucose,Whole Blood 163 mg/dL (75-99)
[2022-02-09] MEDS: ATORVASTATIN 40 MG TAB PO SCH (20:02)
[2022-02-09] MEDS: MONTELUKAST 10 MG TAB PO SCH (20:02)
[2022-02-09 20:28] LABS: Glucose,Whole Blood 158 mg/dL (75-99)
[2022-02-10] MEDS: ALBUTEROL NEBULIZED 2.5 MG/3 ML INHALATION PRN (03:12)
[2022-02-10] MEDS: methylPREDNISolone SOD SUCCI 125 MG/2 ML VIAL IV SCH ×4 (05:35→23:51)
[2022-02-10 07:12] LABS: Glucose,Whole Blood 134 mg/dL (75-99)
[2022-02-10] MEDS: IPRATROPIUM-ALBUTEROL 3 ML NEB INHALATION SCH ×4 (07:42→20:52)
[2022-02-10] MEDS: SYMBICORT 160-4.5 MCG INHALER INHALATION SCH (07:42)
[2022-02-10] MEDS: ALPRAZolam 0.5 MG TAB PO PRN ×2 (08:20→20:32)
[2022-02-10] MEDS: BENZONATATE 100 MG CAP PO SCH ×2 (08:20→20:32)
[2022-02-10] MEDS: APIXABAN 5 MG TAB PO SCH ×2 (08:21→20:32)
[2022-02-10] MEDS: FUROSEMIDE 20 MG TAB PO SCH (08:21)
[2022-02-10] MEDS: FAMOTIDINE 20 MG TAB PO SCH ×2 (08:21→18:24)
[2022-02-10] MEDS: AMIODARONE 200 MG TAB PO SCH ×2 (08:21→20:32)
[2022-02-10] MEDS: LOSARTAN 50 MG TAB PO SCH (08:21)
[2022-02-10] MEDS: Acetaminophen-Codeine 300-30mg TAB PO PRN ×2 (11:03→18:23)
[2022-02-10 11:57] LABS: Glucose,Whole Blood 148 mg/dL (75-99)
--- NOTE | 2022-02-10 13:21 | P.PN ---
Subjective Progress Note Date: 02/10/22 Principal diagnosis: Shortness of breath This is a very pleasant 66-year-old female patient with a known history of oxygen dependent chronic obstructive pulmonary disease, previous COVID-19 pneumonia, atrial fibrillation anticoagulated with Eliquis, coronary artery disease with previous stent placements, brain aneurysm status post clip, PT/PTT stenting of the right common iliac artery, hyperlipidemia, CVA/TIA, osteoarthritis. She was brought into the emergency room early yesterday morning by EMS with increasing shortness of breath cough and congestion. She did have some lower extremity edema. No pain. This x-ray reveals mild increased interstitial density along with some mild fibrosis. Evidence of COPD. Actual improvement in the pulmonary interstitial infiltrates compared to previous in June 2021. White count 8.2. Hemoglobin 9.5. Platelets 266. Sodium 139. Potassium 3.9. BUN 25. Creatinine 0.9. AST 39. ALT 44. Troponin negative times one. ProBNP 407. She is seen today in consultation on the regular medical floor. Currently sitting up in bed. Awake and alert. She has developed some hoarseness. She has some chest tightness and wheezing. She is maintaining O2 saturations at 90% on 4 L nasal cannula. He's been initiated on Symbicort, DuoNeb inhalations, IV Solu-Medrol. Continued on Singulair. Anticoagulated with Eliquis. The patient is seen today 02/08/2022 in follow-up on the regular medical floor. She is improved today compared to yesterday. A bit less bronchospastic and wheezy. She is still not quite back to her baseline. Dyspneic on exertion. Dyspneic with conversation. Anxious. She is maintaining good O2 saturations in the 90s on 3 L/m per nasal cannula. She's been afebrile. White count 5.3. Hemoglobin 10.1. Platelets 235. Sodium 136. Potassium 3.9. Bicarb 33. BUN 24. Creatinine 0.64. Glucose 138. Influenza, RSV and COVID-19 screen were all negative. Pro-calcitonin 0.11. She remains on Symbicort, DuoNeb inhalations, IV Solu-Medrol and Singulair. Anticoagulated with Eliquis. On 02/09/2022 patient seen in follow-up on medical surgical floor, she still tight and wheezy, but feeling a bit better. Short of breath with exertion, she remains on 3 L of oxygen her pulse ox is above 92%, she is afebrile, hemodynamically she's been stable, no chest discomfort, no worsening dyspnea. Appears to be breathing comfortably at rest. Remains on Symbicort, DuoNeb, she is on IV Solu-Medrol 60 mg every 6 hours. Today's labs have been reviewed, white blood cell count is 8.7, hemoglobin is 9.6, sodium is 139, potassium is 4.1, chloride is 99, CO2 is 17.9, anion gap was 22, BUN is 24, creatinine 0.7. Pro-calcitonin level was negative at 0.11, patient tested negative for COVID-19, influenza A and RSV. Chest x-ray showed mild increased interstitial density. On 02/10/2022 patient seen in follow-up on medical surgical floor. She still bronchospastic, congested, coughing a lot, she remains on nebulized bronchodilators in the form of DuoNeb, Pulmicort and Perforomist, she is on IV Solu-Medrol 60 mg every 6 hours, remains on Singulair, she is on Tessalon Perles. Patient tested negative for COVID-19, RSV and influenza A and B. She has been slow to improve. Objective - Vital Signs Vital signs: Vital Signs Temp 97.3 F L 02/10/22 08:00 Pulse 73 02/10/22 11:48 Resp 20 02/10/22 08:00 BP 183/73 02/10/22 08:00 Pulse Ox 94 L 02/10/22 10:00 Intake & Output 02/09/22 02/10/22 02/10/22 18:59 06:59 18:59 Intake Total 1270 Output Total 300 Balance 1270 -300 Intake: Oral 1270 Output: Urine 300 Other: Voiding Method Toilet Toilet Toilet # Voids 3 - Exam GENERAL EXAM: Alert, very pleasant, 66-year-old white female, resting comfortably in bed, on 3 L of oxygen pulse ox of 96% comfortable in no apparent distress. HEAD: Normocephalic/atraumatic. EYES: Normal reaction of pupils, equal size. Conjunctiva pink, sclera white. NOSE: Clear with pink turbinates. THROAT: No erythema or exudates. NECK: No masses, no JVD, no thyroid enlargement, no adenopathy. CHEST: No chest wall deformity. Symmetrical expansion. LUNGS: Equal air entry with diffuse wheezes and crackles CVS: Regular rate and rhythm, normal S1 and S2, no gallops, no murmurs, no rubs ABDOMEN: Soft, nontender. No hepatosplenomegaly, normal bowel sounds, no guarding or rigidity. EXTREMITIES: No clubbing, no edema, no cyanosis, 2+ pulses and upper and lower extremities. MUSCULOSKELETAL: Muscle strength and tone normal. SPINE: No scoliosis or deformity SKIN: No rashes CENTRAL NERVOUS SYSTEM: Alert and oriented -3. No focal deficits, tone is nor mal in all 4 extremities. PSYCHIATRIC: Alert and oriented -3. Appropriate affect. Intact judgment and insight. - Labs CBC & Chem 7: 02/09/22 05:06 02/09/22 05:06 Labs: Abnormal Lab Results - Last 24 Hours (Table) 02/09/22 02/09/22 02/10/22 Range/Units 16:17 20:27 07:10 POC Glucose (mg/dL) 163 H 158 H 134 H (75-99) mg/dL 02/10/22 Range/Units 11:56 POC Glucose (mg/dL) 148 H (75-99) mg/dL Assessment and Plan Plan: Assessment: #1. Acute on chronic dyspnea, related to acute exacerbation of severe oxygen- dependent COPD #2. History of COVID-19 pneumonia with possible postinflammatory fibrotic changes on chest x-ray #3. History of atrial fibrillation, paroxysmal, currently in sinus mechanism, on Ahlquist #4. History of COPD #5. History of CVA #6. History of GERD #7. Hyperlipidemia #8. Myocardial infarction, history of #9. History of brain aneurysm clipping in 2000 #10. Chronic hypoxic respiratory failure related to COPD #11. Scoliosis #12. Peripheral vascular disease #13. History of CAD with previous PCI and stenting Plan: Patient has been slow to improve We discussed bronchoscopy with BAL with the patient today Patient is agreeable to proceed on , 02/12/2022 Continue current medical treatment Continue steroids Continue nebulized bronchodilators Vital signs are stable I have personally seen and examined the patient, performed the documentation and the assessment and plan as written. Number of minutes spent on the visit: [10] Time with Patient: Less than 30
[2022-02-10 17:05] LABS: Glucose,Whole Blood 179 mg/dL (75-99)
[2022-02-10] MEDS: MONTELUKAST 10 MG TAB PO SCH (20:32)
[2022-02-10] MEDS: ATORVASTATIN 40 MG TAB PO SCH (20:32)
[2022-02-10 20:37] LABS: Glucose,Whole Blood 140 mg/dL (75-99)
[2022-02-10] MEDS: BUDESONIDE 1 MG/2 ML NEBU INHALATION SCH (20:52)
[2022-02-10] MEDS: FORMOTEROL FUMARATE 20 MCG/2 ML NEBU INHALATION SCH (20:52)
--- NOTE | 2022-02-11 02:50 | P.PN ---
Subjective Progress Note Date: 02/10/22 Patient is a 66-year-old female with a known history of atrial fibrillation on anticoagulation with Eliquis, coronary artery disease status post stent placement, COPD, history of COVID-19 infection in January 2021, CVA/TIA, hyperlipidemia, GERD, history of brain aneurysm s/p clipping in 2000, chronic hypoxic respiratory failure on 2 L oxygen via nasal cannula and chronic low back pain, anxiety/depression and previous history of smoking presents to ER with complaints of worsening shortness of breath and cough. Patient has been having symptoms for the past 3 to 4 days. Patient has been having bilateral leg swelling after COVID-19 infection and has been in the same. Patient is using compression stockings at home. Denies any fever or chills. No sputum production. No chest pain. No headache or dizziness or lightheadedness. Chest x-ray showed mild increase in interstitial density could relate to some mild fibrosis. There is probably COPD. There is significant improvement in the pulmonary interstitial infiltrates compared to last exam. EKG showed sinus rhythm with first-degree AV block. Laboratory data showed WBC 9.0, hemoglobin 10.1 and platelets 229 D-dimer 0.82, sodium 136 potassium 4.0 chloride 101 BUN 21 and creatinine 1.0 and AST 39 ALT 44 and alk phos 82 troponin 0.012 and proBNP 407. Patient was tachypneic with respiratory rate 28 on admission and blood pressure was 208/93. 02/07/2022 Patient is seen and evaluated in follow up today and is being closely monitored with pulmonary following. Patient is continued on IV steroids along with breathing inhalational treatments and will continue. Patient with significant wheezing on inspiration and expiration with coughing spells noted on exam. Patient normally wears 2 liters at home chronically and has been requiring more oxygen and currently on 4-5L via [place]. Patient is afebrile and denies chest pain. 02/10/2022 Patient is seen this morning in follow-up continues to be bronchospastic and extremely wheezing with expiration and inspiration. Pulmonary following the patient is continued on IV steroids along with breathing inhalational treatments and plan is for possible bronchoscopy tomorrow. Patient continued with increased anxiety with coughing spells and will increase xanax to TID prn. Patient denies chest pain and is afebrile. Review of systems: Constitutional: Denies chills, Denies fever, reports anxiety Cardiovascular: Denies chest pain, Denies palpitations Respiratory: reports continued dyspnea and wheezing with continued frequent coughing spells Gastrointestinal: Denies abdominal pain, Denies nausea, Denies vomiting Genitourinary: Denies dysuria or retention Neuro: No reports of weakness or numbness Active Medications Acetaminophen/Codeine Phosphate (Acetaminophen-Codeine 300-30mg Tab) 1 each PO Q6H PRN PRN Reason: Pain Last Admin: 02/10/22 11:03 Dose: 1 each Documented by: Albuterol/Ipratropium (Ipratropium-Albuterol 3 Ml Neb) 3 ml INHALATION RT-QID [facility] Last Admin: 02/10/22 14:51 Dose: 3 ml Documented by: Alprazolam (Alprazolam 0.5 Mg Tab) 0.5 mg PO TID PRN PRN Reason: Anxiety Amiodarone HCl (Amiodarone 200 Mg Tab) 200 mg PO BID [facility] Last Admin: 02/10/22 08:21 Dose: 200 mg Documented by: Apixaban (Apixaban 5 Mg Tab) 5 mg PO BID [facility]; Protocol Last Admin: 02/10/22 08:21 Dose: 5 mg Documented by: Atorvastatin Calcium (Atorvastatin 40 Mg Tab) 40 mg PO HS@2100 [facility] Last Admin: 02/09/22 20:02 Dose: 40 mg Documented by: Benzonatate (Benzonatate 100 Mg Cap) 100 mg PO BID [facility] Last Admin: 02/10/22 08:20 Dose: 100 mg Documented by: Budesonide (Budesonide 1 Mg/2 Ml Nebu) 1 mg INHALATION RT-BID [facility] Famotidine (Famotidine 20 Mg Tab) 20 mg PO BID@0900,1700 [facility] Last Admin: 02/10/22 08:21 Dose: 20 mg Documented by: Formoterol Fumarate (Formoterol Fumarate 20 Mcg/2 Ml Nebu) 20 mcg INHALATION RT-BID [facility] Furosemide (Furosemide 20 Mg Tab) 20 mg PO DAILY [facility] Last Admin: 02/10/22 08:21 Dose: 20 mg Documented by: Losartan Potassium (Losartan 50 Mg Tab) 50 mg PO DAILY [facility] Last Admin: 02/10/22 08:21 Dose: 50 mg Documented by: Methylprednisolone Sodium Succinate (Methylprednisolone Sod Succi 125 Mg/2 Ml Vial) 60 mg IV Q6HR [facility] Last Admin: 02/10/22 11:02 Dose: 60 mg Documented by: Montelukast Sodium (Montelukast 10 Mg Tab) 10 mg PO HS [facility] Last Admin: 02/09/22 20:02 Dose: 10 mg Documented by: PHYSICAL EXAMINATION: Patient is lying in the bed comfortably, no acute distress, sleeping although easily arousable, alert and oriented x3.. HEENT: Normocephalic. Neck is supple. Pupils reactive. Nostrils clear. Oral cavity is moist. Neck reveals no JVD, carotid bruits, or thyromegaly. CHEST EXAMINATION: Trachea is central. Symmetrical expansion. Normal S1, S2 with no gallops. No murmurs Respiratory: bilateral diffuse wheezing and scattered rhonchi. Nonlabored breathing ABDOMEN: Soft. Bowel sounds normal. No organomegaly. No abdominal bruits. Extremities: Bilateral 2+ pedal edema. No clubbing or cyanosis Neurologically awake, alert, oriented x3 with well-coordinated movements. No focal deficits noted Skin: No rash or skin lesions. Psychiatric: Cooperative. Non-suicidal, anxious. Musculoskeletal: No joint swelling or deformity. Normal range of motion. Assessment: Shortness of breath secondary to acute COPD exacerbation Acute on chronic hypoxic respiratory failure. On oxygen at 2 L via nasal cannula at home Hypertensive urgency on admission, improving History of COVID-19 infection in January 2021 with mild fibrotic changes on x-ray. Paroxysmal atrial fibrillation on anticoagulation with Eliquis. Also on amiodarone. History of CVA/TIA Bilateral lower extremity swelling Coronary artery disease with history of stent placement Hyperlipidemia GERD History of brain aneurysm status post clipping in 2000 Chronic low back pain, scoliosis Anxiety/depression DVT prophylaxis patient is already on Eliquis GI prophylaxis Full code Plan: Patient continued on IV steroids 60mg q6 hours. Continues with duo nebs and Symbicort. Oxygen supplementation currently at 4 L via nasal cannula. Wean as tolerated. Pulmonary following and patient not really improving clinically and plan is for possible bronchoscopy in the am. Patient with continued anxiety during coughing spells and will increase xanax to TID and monitor closely. Encouraged the patient to elevate lower extremities while at rest and continue with compression stockings. Recommend repeat am labs and close monitoring. Prognosis is guarded. The impression and plan of care has been dictated by Gail Giraldo, Nurse Practitioner as directed. Dr. Jaycee MD I have performed a history and examination and MDM of this patient, discussed the same with the dictator, and agree with the dictator's assessment and plan as written ,documented as a scribe. Based on total visit time, I have performed more than 50% of the visit. Objective - Vital Signs Vital signs: Vital Signs Temp 97.3 F L 02/10/22 08:00 Pulse 75 02/10/22 08:00 Resp 20 02/10/22 08:00 BP 183/73 02/10/22 08:00 Pulse Ox 96 02/10/22 08:00 Intake & Output 02/09/22 02/10/22 02/10/22 18:59 06:59 18:59 Intake Total 1270 Output Total 300 Balance 1270 -300 Intake: Oral 1270 Output: Urine 300 Other: Voiding Method Toilet Toilet # Voids 3 - Labs CBC & Chem 7: 02/09/22 05:06 02/09/22 05:06 Labs: Abnormal Lab Results - Last 24 Hours (Table) 02/09/22 02/09/22 02/09/22 Range/Units 10:55 16:17 20:27 POC Glucose (mg/dL) 137 H 163 H 158 H (75-99) mg/dL 02/10/22 Range/Units 07:10 POC Glucose (mg/dL) 134 H (75-99) mg/dL
[2022-02-11] MEDS: ALBUTEROL NEBULIZED 2.5 MG/3 ML INHALATION PRN (03:39)
[2022-02-11] MEDS: methylPREDNISolone SOD SUCCI 125 MG/2 ML VIAL IV SCH ×4 (05:21→23:04)
[2022-02-11 06:17] LABS: African American GFR (CKD) >90 (>60 ml/min/1.73 sqM); Anion Gap 4 mmol/L; Blood Urea Nitrogen 29 mg/dL (7-17); Calcium 8.7 mg/dL (8.4-10.2); Carbon Dioxide 34 mmol/L (22-30); Chloride 98 mmol/L (98-107); Glucose 153 mg/dL (74-99); Non-African American GFR(CKD) >90 (>60 ml/min/1.73 sqM); Potassium 4.1 mmol/L (3.5-5.1); Sodium 136 mmol/L (137-145)
[2022-02-11 07:16] LABS: Glucose,Whole Blood 140 mg/dL (75-99)
[2022-02-11] MEDS: BUDESONIDE 1 MG/2 ML NEBU INHALATION SCH ×2 (09:30→20:31)
[2022-02-11] MEDS: IPRATROPIUM-ALBUTEROL 3 ML NEB INHALATION SCH ×4 (09:30→20:31)
[2022-02-11] MEDS: FORMOTEROL FUMARATE 20 MCG/2 ML NEBU INHALATION SCH ×2 (09:30→20:31)
[2022-02-11] MEDS: FUROSEMIDE 20 MG TAB PO SCH (10:11)
[2022-02-11] MEDS: AMIODARONE 200 MG TAB PO SCH ×2 (10:11→19:53)
[2022-02-11] MEDS: APIXABAN 5 MG TAB PO SCH ×2 (10:11→19:53)
[2022-02-11] MEDS: FAMOTIDINE 20 MG TAB PO SCH ×2 (10:11→16:58)
[2022-02-11] MEDS: LOSARTAN 50 MG TAB PO SCH (10:12)
[2022-02-11] MEDS: BENZONATATE 100 MG CAP PO SCH ×2 (10:12→19:53)
[2022-02-11] MEDS: ALPRAZolam 0.5 MG TAB PO PRN ×2 (10:13→16:58)
--- NOTE | 2022-02-11 10:53 | P.PN ---
Subjective Progress Note Date: 02/11/22 Principal diagnosis: Shortness of breath This is a very pleasant 66-year-old female patient with a known history of oxygen dependent chronic obstructive pulmonary disease, previous COVID-19 pneumonia, atrial fibrillation anticoagulated with Eliquis, coronary artery disease with previous stent placements, brain aneurysm status post clip, PT/PTT stenting of the right common iliac artery, hyperlipidemia, CVA/TIA, osteoarthritis. She was brought into the emergency room early yesterday morning by EMS with increasing shortness of breath cough and congestion. She did have some lower extremity edema. No pain. This x-ray reveals mild increased interstitial density along with some mild fibrosis. Evidence of COPD. Actual improvement in the pulmonary interstitial infiltrates compared to previous in June 2021. White count 8.2. Hemoglobin 9.5. Platelets 266. Sodium 139. Potassium 3.9. BUN 25. Creatinine 0.9. AST 39. ALT 44. Troponin negative times one. ProBNP 407. She is seen today in consultation on the regular medical floor. Currently sitting up in bed. Awake and alert. She has developed some hoarseness. She has some chest tightness and wheezing. She is maintaining O2 saturations at 90% on 4 L nasal cannula. He's been initiated on Symbicort, DuoNeb inhalations, IV Solu-Medrol. Continued on Singulair. Anticoagulated with Eliquis. The patient is seen today 02/08/2022 in follow-up on the regular medical floor. She is improved today compared to yesterday. A bit less bronchospastic and wheezy. She is still not quite back to her baseline. Dyspneic on exertion. Dyspneic with conversation. Anxious. She is maintaining good O2 saturations in the 90s on 3 L/m per nasal cannula. She's been afebrile. White count 5.3. Hemoglobin 10.1. Platelets 235. Sodium 136. Potassium 3.9. Bicarb 33. BUN 24. Creatinine 0.64. Glucose 138. Influenza, RSV and COVID-19 screen were all negative. Pro-calcitonin 0.11. She remains on Symbicort, DuoNeb inhalations, IV Solu-Medrol and Singulair. Anticoagulated with Eliquis. On 02/09/2022 patient seen in follow-up on medical surgical floor, she still tight and wheezy, but feeling a bit better. Short of breath with exertion, she remains on 3 L of oxygen her pulse ox is above 92%, she is afebrile, hemodynamically she's been stable, no chest discomfort, no worsening dyspnea. Appears to be breathing comfortably at rest. Remains on Symbicort, DuoNeb, she is on IV Solu-Medrol 60 mg every 6 hours. Today's labs have been reviewed, white blood cell count is 8.7, hemoglobin is 9.6, sodium is 139, potassium is 4.1, chloride is 99, CO2 is 17.9, anion gap was 22, BUN is 24, creatinine 0.7. Pro-calcitonin level was negative at 0.11, patient tested negative for COVID-19, influenza A and RSV. Chest x-ray showed mild increased interstitial density. On 02/10/2022 patient seen in follow-up on medical surgical floor. She still bronchospastic, congested, coughing a lot, she remains on nebulized bronchodilators in the form of DuoNeb, Pulmicort and Perforomist, she is on IV Solu-Medrol 60 mg every 6 hours, remains on Singulair, she is on Tessalon Perles. Patient tested negative for COVID-19, RSV and influenza A and B. She has been slow to improve. On 02/11/2022 patient seen in follow-up on medical surgical floor. She is awake and alert, still congested and wheezy, coughing, but no acute distress noted, she remains on 4 L of oxygen pulse ox is 96%, she's been afebrile. She remains on nebulized bronchodilators, remains on IV steroids with Solu-Medrol 60 mg every 6 hours, she is on Pulmicort and Perforomist. Patient has been slow to improve, we discussed possibility of bronchoscopy with BAL with her yesterday and patient is agreeable to proceed and she was placed on a schedule for 02/12/[address] Winn Objective - Vital Signs Vital signs: Vital Signs Temp 97.5 F L 02/11/22 06:54 Pulse 71 02/11/22 09:48 Resp 18 02/11/22 06:54 BP 176/74 02/11/22 06:54 Pulse Ox 96 02/11/22 09:33 Intake & Output 02/10/22 02/11/22 02/11/22 18:59 06:59 18:59 Other: Voiding Method Toilet Toilet Toilet # Voids 3 - Exam GENERAL EXAM: Alert, very pleasant, 66-year-old white female, resting comfortably in bed, on 4 L of oxygen pulse ox of 96% comfortable in no apparent distress. HEAD: Normocephalic/atraumatic. EYES: Normal reaction of pupils, equal size. Conjunctiva pink, sclera white. NOSE: Clear with pink turbinates. THROAT: No erythema or exudates. NECK: No masses, no JVD, no thyroid enlargement, no adenopathy. CHEST: No chest wall deformity. Symmetrical expansion. LUNGS: Equal air entry with diffuse wheezes and crackles CVS: Regular rate and rhythm, normal S1 and S2, no gallops, no murmurs, no rubs ABDOMEN: Soft, nontender. No hepatosplenomegaly, normal bowel sounds, no guarding or rigidity. EXTREMITIES: No clubbing, no edema, no cyanosis, 2+ pulses and upper and lower extremities. MUSCULOSKELETAL: Muscle strength and tone normal. SPINE: No scoliosis or deformity SKIN: No rashes CENTRAL NERVOUS SYSTEM: Alert and oriented -3. No focal deficits, tone is normal in all 4 extremities. PSYCHIATRIC: Alert and oriented -3. Appropriate affect. Intact judgment and insight. - Labs CBC & Chem 7: 02/09/22 05:06 02/11/22 05:07 Labs: Abnormal Lab Results - Last 24 Hours (Table) 02/10/22 02/10/22 02/10/22 Range/Units 11:56 17:03 20:35 Sodium (137-145) mmol/L Carbon Dioxide (22-30) mmol/L BUN (7-17) mg/dL Glucose (74-99) mg/dL POC Glucose (mg/dL) 148 H 179 H 140 H (75-99) mg/dL 02/11/22 02/11/22 Range/Units 05:07 07:14 Sodium 136 L (137-145) mmol/L Carbon Dioxide 34 H (22-30) mmol/L BUN 29 H (7-17) mg/dL Glucose 153 H (74-99) mg/dL POC Glucose (mg/dL) 140 H (75-99) mg/dL Assessment and Plan Plan: Assessment: #1. Acute on chronic dyspnea, related to acute exacerbation of severe oxygen- dependent COPD #2. History of COVID-19 pneumonia with possible postinflammatory fibrotic changes on chest x-ray #3. History of atrial fibrillation, paroxysmal, currently in sinus mechanism, on A[place]quist #4. History of COPD #5. History of CVA #6. History of GERD #7. Hyperlipidemia #8. Myocardial infarction, history of #9. History of brain aneurysm clipping in 2000 #10. Chronic hypoxic respiratory failure related to COPD #11. Scoliosis #12. Peripheral vascular disease #13. History of CAD with previous PCI and stenting Plan: Continue current medical treatment Continue nebulized bronchodilators and IV steroids Patient has been slow to improve We'll plan on bronchoscopy with BAL tomorrow on 02/12/[address] Winn Nothing by mouth after midnight This was discussed with the patient and she is agreeable to proceed I have personally seen and examined the patient, performed the documentation and the assessment and plan as written. Number of minutes spent on the visit: [10] Time with Patient: Less than 30
[2022-02-11 11:52] LABS: Glucose,Whole Blood 179 mg/dL (75-99)
[2022-02-11] MEDS: Acetaminophen-Codeine 300-30mg TAB PO PRN ×2 (12:21→19:55)
[2022-02-11] MEDS: LACTATED RINGERS 1,000 ML IV SCH (16:09)
[2022-02-11 16:41] LABS: Glucose,Whole Blood 147 mg/dL (75-99)
[2022-02-11] MEDS: MONTELUKAST 10 MG TAB PO SCH (19:53)
[2022-02-11] MEDS: ATORVASTATIN 40 MG TAB PO SCH (19:53)
[2022-02-11 20:10] LABS: Glucose,Whole Blood 194 mg/dL (75-99)
--- NOTE | 2022-02-11 22:36 | P.PN ---
Subjective Progress Note Date: 02/11/22 Patient is a 66-year-old female with a known history of atrial fibrillation on anticoagulation with Eliquis, coronary artery disease status post stent placement, COPD, history of COVID-19 infection in January 2021, CVA/TIA, hyperlipidemia, GERD, history of brain aneurysm s/p clipping in 2000, chronic hypoxic respiratory failure on 2 L oxygen via nasal cannula and chronic low back pain, anxiety/depression and previous history of smoking presents to ER with complaints of worsening shortness of breath and cough. Patient has been having symptoms for the past 3 to 4 days. Patient has been having bilateral leg swelling after COVID-19 infection and has been in the same. Patient is using compression stockings at home. Denies any fever or chills. No sputum production. No chest pain. No headache or dizziness or lightheadedness. Chest x-ray showed mild increase in interstitial density could relate to some mild fibrosis. There is probably COPD. There is significant improvement in the pulmonary interstitial infiltrates compared to last exam. EKG showed sinus rhythm with first-degree AV block. Laboratory data showed WBC 9.0, hemoglobin 10.1 and platelets 229 D-dimer 0.82, sodium 136 potassium 4.0 chloride 101 BUN 21 and creatinine 1.0 and AST 39 ALT 44 and alk phos 82 troponin 0.012 and proBNP 407. Patient was tachypneic with respiratory rate 28 on admission and blood pressure was 208/93. 02/07/2022 Patient is seen and evaluated in follow up today and is being closely monitored with pulmonary following. Patient is continued on IV steroids along with breathing inhalational treatments and will continue. Patient with significant wheezing on inspiration and expiration with coughing spells noted on exam. Patient normally wears 2 liters at home chronically and has been requiring more oxygen and currently on 4-5L via [place]. Patient is afebrile and denies chest pain. 02/10/2022 Patient is seen this morning in follow-up continues to be bronchospastic and extremely wheezing with expiration and inspiration. Pulmonary following the patient is continued on IV steroids along with breathing inhalational treatments and plan is for possible bronchoscopy tomorrow. Patient continued with increased anxiety with coughing spells and will increase xanax to TID prn. Patient denies chest pain and is afebrile. 02/11/2022 Patient is seen and evaluated today currently being followed closely by pulmonary. Patient is maintained on IV steroids along with breathing inhalational treatments and supplemental oxygen of 4 L. Patient continues to be extremely bronchospastic with severe wheezing on inspiration and expiration. Plan is for bronchoscopy tomorrow. Patient denies chest pain or worsening shortness of breath. Patient reports to continued frequent coughing attacks and feeling more dyspneic and denies much phlegm or sputum production. Encouraged increased activity as tolerated. Patient is afebrile. Tolerating diet with no reports of nausea or vomiting. Review of systems: Constitutional: Denies chills, Denies fever, reports anxiety Cardiovascular: Denies chest pain, Denies palpitations Respiratory: reports continued dyspnea and wheezing with continued frequent coughing spells Gastrointestinal: Denies abdominal pain, Denies nausea, Denies vomiting Genitourinary: Denies dysuria or retention Neuro: No reports of weakness or numbness Active Medications Acetaminophen/Codeine Phosphate (Acetaminophen-Codeine 300-30mg Tab) 1 each PO Q6H PRN PRN Reason: Pain Last Admin: 02/11/22 12:21 Dose: 1 each Documented by: Albuterol Sulfate (Albuterol Nebulized 2.5 Mg/3 Ml) 2.5 mg INHALATION RT-QID PRN PRN Reason: Shortness Of Breath Or Wheezing Last Admin: 02/11/22 03:39 Dose: 2.5 mg Documented by: Albuterol/Ipratropium (Ipratropium-Albuterol 3 Ml Neb) 3 ml INHALATION RT-QID [facility] Last Admin: 02/11/22 12:14 Dose: 3 ml Documented by: Alprazolam (Alprazolam 0.5 Mg Tab) 0.5 mg PO TID PRN PRN Reason: Anxiety Last Admin: 02/11/22 10:13 Dose: 0.5 mg Documented by: Amiodarone HCl (Amiodarone 200 Mg Tab) 200 mg PO BID [facility] Last Admin: 02/11/22 10:11 Dose: 200 mg Documented by: Apixaban (Apixaban 5 Mg Tab) 5 mg PO BID [facility]; Protocol Last Admin: 02/11/22 10:11 Dose: 5 mg Documented by: Atorvastatin Calcium (Atorvastatin 40 Mg Tab) 40 mg PO HS@2100 [facility] Last Admin: 02/10/22 20:32 Dose: 40 mg Documented by: Benzonatate (Benzonatate 100 Mg Cap) 100 mg PO BID [facility] Last Admin: 02/11/22 10:12 Dose: 100 mg Documented by: Budesonide (Budesonide 1 Mg/2 Ml Nebu) 1 mg INHALATION RT-BID [facility] Last Admin: 02/11/22 09:30 Dose: 1 mg Documented by: Famotidine (Famotidine 20 Mg Tab) 20 mg PO BID@0900,1700 [facility] Last Admin: 02/11/22 10:11 Dose: 20 mg Documented by: Formoterol Fumarate (Formoterol Fumarate 20 Mcg/2 Ml Nebu) 20 mcg INHALATION RT-BID [facility] Last Admin: 02/11/22 09:30 Dose: 20 mcg Documented by: Furosemide (Furosemide 20 Mg Tab) 20 mg PO DAILY [facility] Last Admin: 02/11/22 10:11 Dose: 20 mg Documented by: Lactated Ringer's (Lactated Ringers) 1,000 mls @ 20 mls/hr IV .Q24H [facility] Losartan Potassium (Losartan 50 Mg Tab) 50 mg PO DAILY [facility] Last Admin: 02/11/22 10:12 Dose: 50 mg Documented by: Methylprednisolone Sodium Succinate (Methylprednisolone Sod Succi 125 Mg/2 Ml Vial) 60 mg IV Q6HR [facility] Last Admin: 02/11/22 12:22 Dose: 60 mg Documented by: Montelukast Sodium (Montelukast 10 Mg Tab) 10 mg PO HS [facility] Last Admin: 02/10/22 20:32 Dose: 10 mg Documented by: PHYSICAL EXAMINATION: Patient is lying in the bed comfortably, no acute distress, sleeping although easily arousable, alert and oriented x3.. HEENT: Normocephalic. Neck is supple. Pupils reactive. Nostrils clear. Oral cavity is moist. Neck reveals no JVD, carotid bruits, or thyromegaly. CHEST EXAMINATION: Trachea is central. Symmetrical expansion. Normal S1, S2 with no gallops. No murmurs Respiratory: bilateral diffuse wheezing and scattered rhonchi. Nonlabored breathing ABDOMEN: Soft. Bowel sounds normal. No organomegaly. No abdominal bruits. Extremities: Bilateral 2+ pedal edema. No clubbing or cyanosis Neurologically awake, alert, oriented x3 with well-coordinated movements. No focal deficits noted Skin: No rash or skin lesions. Psychiatric: Cooperative. Non-suicidal, anxious. Musculoskeletal: No joint swelling or deformity. Normal range of motion. Assessment: Shortness of breath secondary to acute COPD exacerbation Acute on chronic hypoxic respiratory failure. On oxygen at 2 L via nasal cannula at home Hypertensive urgency on admission, improving History of COVID-19 infection in January 2021 with mild fibrotic changes on x-ray. Paroxysmal atrial fibrillation on anticoagulation with Eliquis. Also on amiodarone. History of CVA/TIA Bilateral lower extremity swelling Coronary artery disease with history of stent placement Hyperlipidemia GERD History of brain aneurysm status post clipping in 2000 Chronic low back pain, scoliosis Anxiety/depression DVT prophylaxis patient is already on Eliquis GI prophylaxis Full code Plan: Patient continued on IV steroids 60mg q6 hours. Continues with duo nebs and Symbicort. Oxygen supplementation currently at 4 L via nasal cannula. Wean as tolerated. Pulmonary following and patient not really improving clinically and plan is for possible bronchoscopy in the am. Patient with continued anxiety during coughing spells and doing somewhat better with xanax TID and monitor closely. Encouraged the patient to elevate lower extremities while at rest and continue with compression stockings. Recommend close monitoring. Prognosis is guarded. The impression and plan of care has been dictated by Gail Giraldo, Nurse Practitioner as directed. Dr. Jaycee MD I have performed a history and examination and MDM of this patient, discussed the same with the dictator, and agree with the dictator's assessment and plan as written ,documented as a scribe. Based on total visit time, I have performed more than 50% of the visit. Objective - Vital Signs Vital signs: Vital Signs Temp 97.5 F L 02/11/22 06:54 Pulse 74 02/11/22 12:24 Resp 18 02/11/22 06:54 BP 176/74 02/11/22 06:54 Pulse Ox 96 02/11/22 09:33 Intake & Output 02/10/22 02/11/22 02/11/22 18:59 06:59 18:59 Other: Voiding Method Toilet Toilet Toilet # Voids 3 - Labs CBC & Chem 7: 02/09/22 05:06 02/11/22 05:07 Labs: Abnormal Lab Results - Last 24 Hours (Table) 02/10/22 02/10/22 02/11/22 Range/Units 17:03 20:35 05:07 Sodium 136 L (137-145) mmol/L Carbon Dioxide 34 H (22-30) mmol/L BUN 29 H (7-17) mg/dL Glucose 153 H (74-99) mg/dL POC Glucose (mg/dL) 179 H 140 H (75-99) mg/dL 02/11/22 02/11/22 Range/Units 07:14 11:51 Sodium (137-145) mmol/L Carbon Dioxide (22-30) mmol/L BUN (7-17) mg/dL Glucose (74-99) mg/dL POC Glucose (mg/dL) 140 H 179 H (75-99) mg/dL
[2022-02-12] MEDS: ALBUTEROL NEBULIZED 2.5 MG/3 ML INHALATION PRN ×2 (00:07→04:31)
[2022-02-12] MEDS: ALPRAZolam 0.5 MG TAB PO PRN ×2 (00:23→10:35)
[2022-02-12] MEDS: methylPREDNISolone SOD SUCCI 125 MG/2 ML VIAL IV SCH ×3 (05:45→17:11)
[2022-02-12 07:02] LABS: Glucose,Whole Blood 159 mg/dL (75-99)
[2022-02-12] MEDS: IPRATROPIUM-ALBUTEROL 3 ML NEB INHALATION SCH ×4 (07:12→20:38)
[2022-02-12] MEDS: BUDESONIDE 1 MG/2 ML NEBU INHALATION SCH ×2 (07:13→20:38)
[2022-02-12] MEDS: FORMOTEROL FUMARATE 20 MCG/2 ML NEBU INHALATION SCH ×2 (07:13→20:38)
[2022-02-12] MEDS: Acetaminophen-Codeine 300-30mg TAB PO PRN ×2 (07:58→16:10)
[2022-02-12] MEDS: FUROSEMIDE 20 MG TAB PO SCH (08:00)
[2022-02-12] MEDS: FAMOTIDINE 20 MG TAB PO SCH ×2 (08:00→16:10)
[2022-02-12] MEDS: APIXABAN 5 MG TAB PO SCH ×2 (08:00→20:20)
[2022-02-12] MEDS: AMIODARONE 200 MG TAB PO SCH ×2 (08:01→20:20)
[2022-02-12] MEDS: LOSARTAN 50 MG TAB PO SCH (08:01)
[2022-02-12] MEDS: BENZONATATE 100 MG CAP PO SCH ×2 (08:01→20:20)
--- NOTE | 2022-02-12 10:35 | P.PN ---
Subjective Progress Note Date: 02/12/22 Principal diagnosis: Shortness of breath This is a very pleasant 66-year-old female patient with a known history of oxygen dependent chronic obstructive pulmonary disease, previous COVID-19 pneumonia, atrial fibrillation anticoagulated with Eliquis, coronary artery disease with previous stent placements, brain aneurysm status post clip, PT/PTT stenting of the right common iliac artery, hyperlipidemia, CVA/TIA, osteoarthritis. She was brought into the emergency room early yesterday morning by EMS with increasing shortness of breath cough and congestion. She did have some lower extremity edema. No pain. This x-ray reveals mild increased interstitial density along with some mild fibrosis. Evidence of COPD. Actual improvement in the pulmonary interstitial infiltrates compared to previous in June 2021. White count 8.2. Hemoglobin 9.5. Platelets 266. Sodium 139. Potassium 3.9. BUN 25. Creatinine 0.9. AST 39. ALT 44. Troponin negative times one. ProBNP 407. She is seen today in consultation on the regular medical floor. Currently sitting up in bed. Awake and alert. She has developed some hoarseness. She has some chest tightness and wheezing. She is maintaining O2 saturations at 90% on 4 L nasal cannula. He's been initiated on Symbicort, DuoNeb inhalations, IV Solu-Medrol. Continued on Singulair. Anticoagulated with Eliquis. The patient is seen today 02/08/2022 in follow-up on the regular medical floor. She is improved today compared to yesterday. A bit less bronchospastic and wheezy. She is still not quite back to her baseline. Dyspneic on exertion. Dyspneic with conversation. Anxious. She is maintaining good O2 saturations in the 90s on 3 L/m per nasal cannula. She's been afebrile. White count 5.3. Hemoglobin 10.1. Platelets 235. Sodium 136. Potassium 3.9. Bicarb 33. BUN 24. Creatinine 0.64. Glucose 138. Influenza, RSV and COVID-19 screen were all negative. Pro-calcitonin 0.11. She remains on Symbicort, DuoNeb inhalations, IV Solu-Medrol and Singulair. Anticoagulated with Eliquis. On 02/09/2022 patient seen in follow-up on medical surgical floor, she still tight and wheezy, but feeling a bit better. Short of breath with exertion, she remains on 3 L of oxygen her pulse ox is above 92%, she is afebrile, hemodynamically she's been stable, no chest discomfort, no worsening dyspnea. Appears to be breathing comfortably at rest. Remains on Symbicort, DuoNeb, she is on IV Solu-Medrol 60 mg every 6 hours. Today's labs have been reviewed, white blood cell count is 8.7, hemoglobin is 9.6, sodium is 139, potassium is 4.1, chloride is 99, CO2 is 17.9, anion gap was 22, BUN is 24, creatinine 0.7. Pro-calcitonin level was negative at 0.11, patient tested negative for COVID-19, influenza A and RSV. Chest x-ray showed mild increased interstitial density. On 02/10/2022 patient seen in follow-up on medical surgical floor. She still bronchospastic, congested, coughing a lot, she remains on nebulized bronchodilators in the form of DuoNeb, Pulmicort and Perforomist, she is on IV Solu-Medrol 60 mg every 6 hours, remains on Singulair, she is on Tessalon Perles. Patient tested negative for COVID-19, RSV and influenza A and B. She has been slow to improve. On 02/11/2022 patient seen in follow-up on medical surgical floor. She is awake and alert, still congested and wheezy, coughing, but no acute distress noted, she remains on 4 L of oxygen pulse ox is 96%, she's been afebrile. She remains on nebulized bronchodilators, remains on IV steroids with Solu-Medrol 60 mg every 6 hours, she is on Pulmicort and Perforomist. Patient has been slow to improve, we discussed possibility of bronchoscopy with BAL with her yesterday and patient is agreeable to proceed and she was placed on a schedule for 02/12/[address] Winn On 02/12/2022 patient seen in follow-up on medical surgical floor. She still quite congested, continues to cough significantly, and wheeze. Patient remains on IV Solu-Medrol 60 mg every 6 hours, nebulized bronchodilators, remains on Pulmicort and Perforomist. She remains on 20 mg of oral Lasix once daily, no sign of any significant fluid overload, slight wrinkling of her skin in bilateral lower extremities. Today's labs are pending. No new CXR. Patient has been nothing by mouth after midnight for bronchoscopy with bronchoalveolar lavage Objective - Vital Signs Vital signs: Vital Signs Temp 97.7 F 02/12/22 07:00 Pulse 76 02/12/22 07:36 Resp 18 02/12/22 07:49 BP 123/66 02/12/22 07:00 Pulse Ox 97 02/12/22 07:15 Intake & Output 02/11/22 02/12/22 02/12/22 18:59 06:59 18:59 Other: Voiding Method Toilet Toilet # Voids 0 3 - Exam GENERAL EXAM: Alert, very pleasant, 66-year-old white female, resting comfortably in bed, on 4 L of oxygen pulse ox of 97% comfortable in no apparent distress. HEAD: Normocephalic/atraumatic. EYES: Normal reaction of pupils, equal size. Conjunctiva pink, sclera white. NOSE: Clear with pink turbinates. THROAT: No erythema or exudates. NECK: No masses, no JVD, no thyroid enlargement, no adenopathy. CHEST: No chest wall deformity. Symmetrical expansion. LUNGS: Equal air entry with diffuse wheezes and crackles CVS: Regular rate and rhythm, normal S1 and S2, no gallops, no murmurs, no rubs ABDOMEN: Soft, nontender. No hepatosplenomegaly, normal bowel sounds, no g uarding or rigidity. EXTREMITIES: No clubbing, no edema, no cyanosis, 2+ pulses and upper and lower extremities. MUSCULOSKELETAL: Muscle strength and tone normal. SPINE: No scoliosis or deformity SKIN: No rashes CENTRAL NERVOUS SYSTEM: Alert and oriented -3. No focal deficits, tone is normal in all 4 extremities. PSYCHIATRIC: Alert and oriented -3. Appropriate affect. Intact judgment and insight. - Labs CBC & Chem 7: 02/09/22 05:06 02/11/22 05:07 Labs: Abnormal Lab Results - Last 24 Hours (Table) 02/11/22 02/11/22 02/11/22 Range/Units 11:51 16:40 20:08 POC Glucose (mg/dL) 179 H 147 H 194 H (75-99) mg/dL 04/20/22 Range/Units 07:01 POC Glucose (mg/dL) 159 H (75-99) mg/dL Assessment and Plan Plan: Assessment: #1. Acute on chronic dyspnea, related to acute exacerbation of severe oxygen- dependent COPD #2. History of COVID-19 pneumonia with possible postinflammatory fibrotic changes on chest x-ray #3. History of atrial fibrillation, paroxysmal, currently in sinus mechanism, on [place] #4. History of COPD #5. History of CVA #6. History of GERD #7. Hyperlipidemia #8. Myocardial infarction, history of #9. History of brain aneurysm clipping in 2000 #10. Chronic hypoxic respiratory failure related to COPD #11. Scoliosis #12. Peripheral vascular disease #13. History of CAD with previous PCI and stenting Plan: Continue current medical treatment Continue IV steroids and nebulized bronchodilators Proceed with bronchoscopy with BAL today BAL specimens will be sent for cultures, and cytology We anticipate that the bronchoscopy may speed up patient's recovery and help her clear retained secretions I have personally seen and examined the patient, performed the documentation and the assessment and plan as written. Number of minutes spent on the visit: [10] Time with Patient: Less than 30
[2022-02-12 11:43] LABS: Glucose,Whole Blood 138 mg/dL (75-99)
[2022-02-12] MEDS: LACTATED RINGERS 1,000 ML IV SCH (11:50)
[2022-02-12] MEDS ORDERED: fentaNYL (PF) 50 MCG/ML 2 ML AMP ONE (13:55)
[2022-02-12] MEDS ORDERED: MIDAZOLAM 2 MG/2 ML VIAL ONE (13:55)
[2022-02-12] MEDS ORDERED: PROPOFOL 10 MG/ML 20 ML VIAL IV ONE (13:55)
[2022-02-12] MEDS ORDERED: KETAMINE 10 MG/ML 20 ML VIAL ONE (13:55)
[2022-02-12] MEDS ORDERED: LIDOCAINE 2% INJ 20 MG/ML (2 ML VIAL) ONE (13:55)
[2022-02-12] MEDS ORDERED: GLYCOPYRROLATE 0.2 MG/ML 2 ML VIAL ONE (13:55)
[2022-02-12] MEDS ORDERED: LACTATED RINGERS 1,000 ML IV ONE ×2 (14:03)
[2022-02-12] MEDS ORDERED: LIDOCAINE 2% INJ 20 MG/ML INTRATRACH ONE (14:17)
--- NOTE | 2022-02-12 14:55 | PCN ---
PROCEDURE NOTE PROCEDURE: Bronchoscopy, airway examination, therapeutic lavage, BAL. PREOPERATIVE DIAGNOSIS: Chronic obstructive pulmonary disease exacerbation, retained secretions. POSTOPERATIVE DIAGNOSIS: Chronic obstructive pulmonary disease exacerbation, retained secretions. OPERATORS: 1. Dr. Winn. 2. Dr. Mccartney. PROCEDURE DESCRIPTION: There was informed consent and universal timeout. Anesthesia provided general anesthesia. The patient's procedure was done in room #1 [facility]. After the patient was adequately sedated and being fully monitored, the bronchoscope was inserted through the right nostril. It passed through the right nasopharynx into the oropharynx. Then the hypopharynx was identified. The hypopharyngeal structures, including anterior commissure, true cords, false cords, arytenoids, valleculae, epiglottis, piriform sinuses, right and left, all appeared normal. Next the glottic opening was topicalized. The bronchoscope was pushed through the glottic opening into the trachea. There were secretions noted in the mid to distal trachea. In fact, thick secretions were seen saddling over the tracheal live. A picture was taken. The right and left mainstem were topicalized. Next there was a thorough evaluation of the right upper lobe and its 3 segments, including apical, anterior and posterior segments, the right middle lobe, including the medial lateral segments, and the right lower lobe, including the superior basal, medial basal, anterior lateral and posterior basal segments. The mucosa was erythematous and hyperemic. There was some mucosal friability. There were thick secretions noted throughout. There was no dominant mass or tumor. On the left side, similarly after topicalization, the left upper lobe proper with the apical posterior and anterior segments, the lingula with its superior and inferior segments, and the left lower lobe with the anteromedial, lateral and posterior segments as well as the superior basal segments, were evaluated. Likewise, diffuse airway erythema and hyperemia. There was some mucosal friability. There was some vascular engorgement. No dominant mass or tumor. Thick secretions were noted throughout. The secretions were suctioned. The bronchoscope was wedged into the lingula. We did a formal BAL. Thirty mL of purulent-looking fluid was recovered. It will be sent to the laboratory for analysis. There was no immediate complication. Additional secretions were suctioned with the aid of saline, and the bronchoscope was withdrawn. The patient will be recovered. There was no immediate complication. MMODL / IJN: [id number] /
[2022-02-12 16:16] LABS: Glucose,Whole Blood 163 mg/dL (75-99)
[2022-02-12] MEDS: MONTELUKAST 10 MG TAB PO SCH (20:20)
[2022-02-12] MEDS: ATORVASTATIN 40 MG TAB PO SCH (20:20)
--- NOTE | 2022-02-12 23:03 | P.PN ---
Subjective Progress Note Date: 02/12/22 Patient is a 66-year-old female with a known history of atrial fibrillation on anticoagulation with Eliquis, coronary artery disease status post stent placement, COPD, history of COVID-19 infection in January 2021, CVA/TIA, hyperlipidemia, GERD, history of brain aneurysm s/p clipping in 2000, chronic hypoxic respiratory failure on 2 L oxygen via nasal cannula and chronic low back pain, anxiety/depression and previous history of smoking presents to ER with complaints of worsening shortness of breath and cough. Patient has been having symptoms for the past 3 to 4 days. Patient has been having bilateral leg swelling after COVID-19 infection and has been in the same. Patient is using compression stockings at home. Denies any fever or chills. No sputum production. No chest pain. No headache or dizziness or lightheadedness. Chest x-ray showed mild increase in interstitial density could relate to some mild fibrosis. There is probably COPD. There is significant improvement in the pulmonary interstitial infiltrates compared to last exam. EKG showed sinus rhythm with first-degree AV block. Laboratory data showed WBC 9.0, hemoglobin 10.1 and platelets 229 D-dimer 0.82, sodium 136 potassium 4.0 chloride 101 BUN 21 and creatinine 1.0 and AST 39 ALT 44 and alk phos 82 troponin 0.012 and proBNP 407. Patient was tachypneic with respiratory rate 28 on admission and blood pressure was 208/93. 02/07/2022 Patient is seen and evaluated in follow up today and is being closely monitored with pulmonary following. Patient is continued on IV steroids along with breathing inhalational treatments and will continue. Patient with significant wheezing on inspiration and expiration with coughing spells noted on exam. Patient normally wears 2 liters at home chronically and has been requiring more oxygen and currently on 4-5L via NC. Patient is afebrile and denies chest pain. 02/10/2022 Patient is seen this morning in follow-up continues to be bronchospastic and extremely wheezing with expiration and inspiration. Pulmonary following the patient is continued on IV steroids along with breathing inhalational treatments and plan is for possible bronchoscopy tomorrow. Patient continued with increased anxiety with coughing spells and will increase xanax to TID prn. Patient denies chest pain and is afebrile. 02/11/2022 Patient is seen and evaluated today currently being followed closely by pulmonary. Patient is maintained on IV steroids along with breathing inhalational treatments and supplemental oxygen of 4 L. Patient continues to be extremely bronchospastic with severe wheezing on inspiration and expiration. Plan is for bronchoscopy tomorrow. Patient denies chest pain or worsening shortness of breath. Patient reports to continued frequent coughing attacks and feeling more dyspneic and denies much phlegm or sputum production. Encouraged increased activity as tolerated. Patient is afebrile. Tolerating diet with no reports of nausea or vomiting. 02/12/2022 Patient is still having shortness of breath and congested cough and diffuse wheezing on exam. Patient is scheduled for bronchoscopy today. Otherwise the patient is IV Solu-Medrol, Pulmicort, Perforomist and oxygen supplementation at 4 L via nasal cannula. Pulmonary is on board. Patient has been afebrile. No nausea vomiting abdominal pain or diarrhea. No fever no chills. No other acute overnight issues. Review of systems: Constitutional: Denies chills, Denies fever, reports anxiety Cardiovascular: Denies chest pain, Denies palpitations Respiratory: reports continued dyspnea and wheezing with continued frequent coughing spells Gastrointestinal: Denies abdominal pain, Denies nausea, Denies vomiting Genitourinary: Denies dysuria or retention Neuro: No reports of weakness or numbness Active Medications Generic Name Dose Route Start Last Admin Trade Name Freq PRN Reason Stop Dose Admin Acetaminophen/Codeine Phosphate 1 each 02/06/22 06:24 02/12/22 16:10 Acetaminophen-Codeine 300-30mg Tab PO 1 each Q6H PRN Administration Pain Albuterol Sulfate 2.5 mg 02/10/22 23:23 02/12/22 04:31 Albuterol Nebulized 2.5 Mg/3 Ml INHALATION 2.5 mg RT-QID PRN Administration Shortness Of Breath Or Wheezing Albuterol/Ipratropium 3 ml 02/06/22 08:00 02/12/22 20:38 Ipratropium-Albuterol 3 Ml Neb INHALATION 3 ml RT-QID JULIANE Administration Alprazolam 0.5 mg 02/10/22 12:40 02/12/22 10:35 Alprazolam 0.5 Mg Tab PO 0.5 mg TID PRN Administration Anxiety Amiodarone HCl 200 mg 02/06/22 09:00 02/12/22 20:20 Amiodarone 200 Mg Tab PO 200 mg BID JULIANE Administration Apixaban 5 mg 02/06/22 09:00 02/12/22 20:20 Apixaban 5 Mg Tab PO 5 mg BID JULIANE Administration Protocol Atorvastatin Calcium 40 mg 02/06/22 21:00 02/12/22 20:20 Atorvastatin 40 Mg Tab PO 40 mg HS@2100 JULIANE Administration Benzonatate 100 mg 02/08/22 21:00 02/12/22 20:20 Benzonatate 100 Mg Cap PO 100 mg BID JULIANE Administration Budesonide 1 mg 02/10/22 20:00 02/12/22 20:38 Budesonide 1 Mg/2 Ml Nebu INHALATION 1 mg RT-BID JULIANE Administration Famotidine 20 mg 02/06/22 09:00 02/12/22 16:10 Famotidine 20 Mg Tab PO 20 mg BID@0900,1700 JULIANE Administration Formoterol Fumarate 20 mcg 02/10/22 20:00 02/12/22 20:38 Formoterol Fumarate 20 Mcg/2 Ml Nebu INHALATION 20 mcg RT-BID JULIANE Administration Furosemide 20 mg 02/06/22 09:00 02/12/22 08:00 Furosemide 20 Mg Tab PO 20 mg DAILY JULIANE Administration Lactated Ringer's 1,000 mls @ 20 mls/hr 02/11/22 12:30 02/12/22 11:50 Lactated Ringers IV Not Given .Q24H JULIANE Losartan Potassium 50 mg 02/07/22 09:00 02/12/22 08:01 Losartan 50 Mg Tab PO 50 mg DAILY JULIANE Administration Methylprednisolone Sodium Succinate 60 mg 02/07/22 08:45 02/12/22 17:11 Methylprednisolone Sod Succi 125 Mg/2 Ml Vial IV 60 mg Q6HR JULIANE Administration Montelukast Sodium 10 mg 02/06/22 21:00 02/12/22 20:20 Montelukast 10 Mg Tab PO 10 mg HS JULIANE Administration Objective - Vital Signs Vital signs: Vital Signs Temp 97.7 F 02/12/22 07:00 Pulse 74 02/12/22 21:02 Resp 18 02/12/22 07:49 BP 123/66 02/12/22 07:00 Pulse Ox 97 02/12/22 20:39 Intake & Output 02/12/22 02/12/22 02/13/22 06:59 18:59 06:59 Intake Total 200 Balance 200 Intake: IV 200 Other: Voiding Method Toilet # Voids 3 4 - Exam PHYSICAL EXAMINATION: Patient is lying in the bed comfortably, no acute distress, sleeping although easily arousable, alert and oriented x3.. HEENT: Normocephalic. Neck is supple. Pupils reactive. Nostrils clear. Oral cavity is moist. Neck reveals no JVD, carotid bruits, or thyromegaly. CHEST EXAMINATION: Trachea is central. Symmetrical expansion. Normal S1, S2 with no gallops. No murmurs Respiratory: bilateral diffuse wheezing and scattered rhonchi. Nonlabored breathing ABDOMEN: Soft. Bowel sounds normal. No organomegaly. No abdominal bruits. Extremities: Bilateral 2+ pedal edema. No clubbing or cyanosis Neurologically awake, alert, oriented x3 with well-coordinated movements. No focal deficits noted Skin: No rash or skin lesions. Psychiatric: Cooperative. Non-suicidal, anxious. Musculoskeletal: No joint swelling or deformity. Normal range of motion. - Labs CBC & Chem 7: 02/09/22 05:06 02/11/22 05:07 Labs: Abnormal Lab Results - Last 24 Hours (Table) 02/12/22 02/12/22 02/12/22 Range/Units 07:01 11:42 16:14 POC Glucose (mg/dL) 159 H 138 H 163 H (75-99) mg/dL Assessment and Plan Assessment: Shortness of breath secondary to acute COPD exacerbation Acute on chronic hypoxic respiratory failure. On oxygen at 2 L via nasal cannula at home Hypertensive urgency on admission, improving History of COVID-19 infection in January 2021 with mild fibrotic changes on x-ray. Paroxysmal atrial fibrillation on anticoagulation with Eliquis. Also on amiodarone. History of CVA/TIA Bilateral lower extremity swelling Coronary artery disease with history of stent placement Hyperlipidemia GERD History of brain aneurysm status post clipping in 2000 Chronic low back pain, scoliosis Anxiety/depression DVT prophylaxis patient is already on Eliquis GI prophylaxis Full code Plan: Patient continued on IV steroids 60mg q6 hours. Continues with duo nebs and Symbicort. Oxygen supplementation currently at 4 L via nasal cannula. Wean as tolerated. bronchoscopy today. Patient with continued anxiety during coughing spells and doing somewhat better with xanax TID and monitor closely. Encouraged the patient to elevate lower extremities while at rest and continue with compression stockings. Recommend close monitoring. Prognosis is guarded. Time with Patient: Greater than 30
[2022-02-13 00:16] LABS: Appearance,BF Cloudy
[2022-02-13] MEDS: methylPREDNISolone SOD SUCCI 125 MG/2 ML VIAL IV SCH ×5 (00:26→23:39)
[2022-02-13] MEDS: ALBUTEROL NEBULIZED 2.5 MG/3 ML INHALATION PRN ×2 (00:58→04:48)
[2022-02-13] MEDS: Acetaminophen-Codeine 300-30mg TAB PO PRN ×2 (08:02→19:30)
[2022-02-13] MEDS: FORMOTEROL FUMARATE 20 MCG/2 ML NEBU INHALATION SCH ×2 (09:27→21:14)
[2022-02-13] MEDS: BUDESONIDE 1 MG/2 ML NEBU INHALATION SCH ×2 (09:27→21:14)
[2022-02-13] MEDS: IPRATROPIUM-ALBUTEROL 3 ML NEB INHALATION SCH ×4 (09:27→21:14)
[2022-02-13 09:38] LABS: Basophils # (A) 0.01 X 10*3/uL (0.00-0.10); Basophils % (A) 0.1 %; Eosinophils # (A) 0 X 10*3/uL (0.04-0.35); Eosinophils % (A) 0 %; HCT 34.4 % (37.2-46.3); HGB 10.1 g/dL (12.0-15.0); Immature Grans, Automated 0.7 %; Lymphocytes % (A) 1.8 %; MCH 23.9 pg (27.0-32.0); MCHC 29.4 g/dL (32.0-37.0); MCV 81.3 fL (80.0-97.0); Mean Platelet Volume 11.8 fL (9.5-12.2); Monocytes # (A) 0.48 X 10*3/uL (0.20-1.00); Monocytes % (A) 4.4 %; NRBC Per 100 WBC 0 /100 WBCS (0.0-0.0); Neutrophils # (A) 10.16 X 10*3/uL (1.80-7.70); Platelet Count 238 X 10*3/uL (140-440); RBC 4.23 X 10*6/uL (4.10-5.20); RDW 16.8 % (11.5-14.5); WBC 10.93 X 10*3/uL (4.50-10.00)
[2022-02-13 09:58] VITALS: BMI 36.0
[2022-02-13] MEDS: BENZONATATE 100 MG CAP PO SCH ×2 (09:59→19:30)
[2022-02-13] MEDS: LOSARTAN 50 MG TAB PO SCH (10:00)
[2022-02-13] MEDS: AMIODARONE 200 MG TAB PO SCH ×2 (10:00→19:31)
[2022-02-13] MEDS: APIXABAN 5 MG TAB PO SCH ×2 (10:00→19:31)
[2022-02-13] MEDS: FAMOTIDINE 20 MG TAB PO SCH ×2 (10:00→17:22)
[2022-02-13] MEDS: FUROSEMIDE 20 MG TAB PO SCH (10:00)
[2022-02-13] MEDS: ALPRAZolam 0.5 MG TAB PO PRN (10:04)
[2022-02-13 10:40] LABS: African American GFR (CKD) 108.5 (60.0-200.0); Anion Gap 7.6 mmol/L (10.00-18.00); BUN/Creat Ratio 32.52 Ratio (12.00-20.00); Blood Urea Nitrogen 21.3 mg/dL (9.0-27.0); Calcium 8.6 mg/dL (8.7-10.3); Carbon Dioxide 32.7 mmol/L (20.0-27.5); Non-African American GFR(CKD) 93.6 (60.0-200.0)
--- NOTE | 2022-02-13 10:48 | P.PN ---
Subjective Progress Note Date: 02/13/22 Principal diagnosis: COPD exacerbation This is a very pleasant 66-year-old female patient with a known history of oxygen dependent chronic obstructive pulmonary disease, previous COVID-19 pneumonia, atrial fibrillation anticoagulated with Eliquis, coronary artery disease with previous stent placements, brain aneurysm status post clip, PT/PTT stenting of the right common iliac artery, hyperlipidemia, CVA/TIA, osteoarthritis. She was brought into the emergency room early yesterday morning by EMS with increasing shortness of breath cough and congestion. She did have some lower extremity edema. No pain. This x-ray reveals mild increased interstitial density along with some mild fibrosis. Evidence of COPD. Actual improvement in the pulmonary interstitial infiltrates compared to previous in June 2021. White count 8.2. Hemoglobin 9.5. Platelets 266. Sodium 139. Potassium 3.9. BUN 25. Creatinine 0.9. AST 39. ALT 44. Troponin negative times one. ProBNP 407. She is seen today in consultation on the regular medical floor. Currently sitting up in bed. Awake and alert. She has developed some hoarseness. She has some chest tightness and wheezing. She is maintaining O2 saturations at 90% on 4 L nasal cannula. He's been initiated on Symbicort, DuoNeb inhalations, IV Solu-Medrol. Continued on Singulair. Anticoagulated with Eliquis. The patient is seen today 02/08/2022 in follow-up on the regular medical floor. She is improved today compared to yesterday. A bit less bronchospastic and wheezy. She is still not quite back to her baseline. Dyspneic on exertion. Dyspneic with conversation. Anxious. She is maintaining good O2 saturations in the 90s on 3 L/m per nasal cannula. She's been afebrile. White count 5.3. Hemoglobin 10.1. Platelets 235. Sodium 136. Potassium 3.9. Bicarb 33. BUN 24. Creatinine 0.64. Glucose 138. Influenza, RSV and COVID-19 screen were all negative. Pro-calcitonin 0.11. She remains on Symbicort, DuoNeb inhalations, IV Solu-Medrol and Singulair. Anticoagulated with Eliquis. The patient is seen today 02/13/2022 in follow-up on the regular medical floor. She is status post bronchoscopy with BAL yesterday. Cultures are pending. She is feeling better today. Awake and alert in no acute distress. Maintaining O2 saturations in the 90s on 3 L/m per nasal cannula. She does have home oxygen. White count 10.9. Hemoglobin 10.1. Platelets 238. Sodium 141. Potassium 4.0. BUN 21. Creatinine 0.7. She's been afebrile. Hemodynamically stable. Continued on DuoNeb inhalations, Pulmicort and Perforomist inhalations, IV Solu- Medrol. She remains on Singulair, Tessalon Perles. Anticoagulated with Eliquis. Objective - Vital Signs Vital signs: Vital Signs Temp 97.4 F L 02/13/22 07:50 Pulse 75 02/13/22 09:47 Resp 18 02/13/22 08:03 BP 144/66 02/13/22 07:50 Pulse Ox 95 02/13/22 07:50 Intake & Output 02/12/22 02/13/22 02/13/22 18:59 06:59 18:59 Intake Total 200 Balance 200 Weight 104.326 kg Intake: IV 200 Other: Voiding Method Toilet Toilet # Voids 4 - Exam GENERAL EXAM: Alert, 66-year-old female, on 3 L nasal cannula, comfortable in no apparent distress. HEAD: Normocephalic. EYES: Normal reaction of pupils, equal size. NOSE: Clear with pink turbinates. THROAT: No erythema or exudates. NECK: No masses, no JVD. CHEST: No chest wall deformity. LUNGS: Equal air entry with bilateral end expiratory wheeze. CVS: S1 and S2 normal with no audible murmur, regular rhythm. ABDOMEN: No hepatosplenomegaly, normal bowel sounds, no guarding or rigidity. SPINE: No scoliosis or deformity SKIN: No rashes CENTRAL NERVOUS SYSTEM: No focal deficits, tone is normal in all 4 extremities. EXTREMITIES: There is no peripheral edema. No clubbing, no cyanosis. Peripheral pulses are intact. - Labs CBC & Chem 7: 02/13/22 05:27 02/13/22 05:27 Labs: Abnormal Lab Results - Last 24 Hours (Table) 02/12/22 02/12/22 02/13/22 Range/Units 11:42 16:14 05:27 WBC 10.93 H (4.50-10.00) X 10*3/uL Hgb 10.1 L (12.0-15.0) g/dL Hct 34.4 L (37.2-46.3) % MCH 23.9 L (27.0-32.0) pg MCHC 29.4 L (32.0-37.0) g/dL RDW 16.8 H (11.5-14.5) % Immature Gran # 0.08 H (0.00-0.04) X 10*3/uL Neutrophils # 10.16 H (1.80-7.70) X 10*3/uL Lymphocytes # 0.20 L (0.90-5.00) X 10*3/uL Eosinophils # 0 L (0.04-0.35) X 10*3/uL Carbon Dioxide (20.0-27.5) mmol/L Anion Gap (10.00-18.00) mmol/L BUN/Creatinine Ratio (12.00-20.00) Ratio Glucose (70-110) mg/dL POC Glucose (mg/dL) 138 H 163 H (75-99) mg/dL Calcium (8.7-10.3) mg/dL 02/13/22 Range/Units 05:27 WBC (4.50-10.00) X 10*3/uL Hgb (12.0-15.0) g/dL Hct (37.2-46.3) % MCH (27.0-32.0) pg MCHC (32.0-37.0) g/dL RDW (11.5-14.5) % Immature Gran # (0.00-0.04) X 10*3/uL Neutrophils # (1.80-7.70) X 10*3/uL Lymphocytes # (0.90-5.00) X 10*3/uL Eosinophils # (0.04-0.35) X 10*3/uL Carbon Dioxide 32.7 H (20.0-27.5) mmol/L Anion Gap 7.60 L (10.00-18.00) mmol/L BUN/Creatinine Ratio 32.52 H (12.00-20.00) Ratio Glucose 152 H (70-110) mg/dL POC Glucose (mg/dL) (75-99) mg/dL Calcium 8.6 L (8.7-10.3) mg/dL Microbiology - Last 24 Hours (Table) 02/12/22 14:16 Fungal Culture - Preliminary Bronchial Washings - Random 02/12/22 14:16 Acid Fast Bacilli Culture - Preliminary Bronchial Washings - Random 02/12/22 14:16 Bronchial Washings Culture - Preliminary Bronchial Washings - Random Assessment and Plan Assessment: 1 Acute exacerbation of severe oxygen dependent chronic obstructive pulmonary disease with retained secretions. Status post bronchoscopy with BAL on 02/12/2022 2 History of COVID 19 pneumonia, with possible postinflammatory pulmonary fibrotic changes on chest x-ray. 3 History of atrial fibrillation. Currently in sinus rhythm. Anticoagulated with Eliquis. 4 History of CAD. 5 History of CVA. 6 History of gastroesophageal reflux disease. 7 Hyperlipidemia. 8 Myocardial infarction. 9 Status post clipping of a brain aneurysm, 2000. 10 Chronic hypoxemic respiratory failure. 11 Scoliosis. 12 CAD with previous stent placement. 13 Peripheral vascular disease Plan: The patient was seen and evaluated Stable and on home oxygen of 3 L She is cleared for discharge from the pulmonary system Complete a prednisone taper starting at 40 mg daily for 4 days Follow-up in the office in 1-2 weeks' I have personally seen and examined the patient, performed the documentation and the assessment and plan as written. Number of minutes spent on the visit: 10.
[2022-02-13] MEDS: MONTELUKAST 10 MG TAB PO SCH (19:30)
[2022-02-13] MEDS: ATORVASTATIN 40 MG TAB PO SCH (19:31)
[2022-02-13] MEDS: LACTATED RINGERS 1,000 ML IV SCH (23:41)
[2022-02-14] MEDS: ALBUTEROL NEBULIZED 2.5 MG/3 ML INHALATION PRN ×2 (00:53→04:08)
[2022-02-14] MEDS: methylPREDNISolone SOD SUCCI 125 MG/2 ML VIAL IV SCH (05:18)
[2022-02-14] MEDS: AMIODARONE 200 MG TAB PO SCH ×2 (07:36→19:50)
[2022-02-14] MEDS: APIXABAN 5 MG TAB PO SCH ×2 (07:36→19:50)
[2022-02-14] MEDS: LOSARTAN 50 MG TAB PO SCH (07:37)
[2022-02-14] MEDS: FAMOTIDINE 20 MG TAB PO SCH ×2 (07:37→16:35)
[2022-02-14] MEDS: FUROSEMIDE 20 MG TAB PO SCH (07:37)
[2022-02-14] MEDS: BENZONATATE 100 MG CAP PO SCH ×2 (07:37→19:50)
[2022-02-14] MEDS: FORMOTEROL FUMARATE 20 MCG/2 ML NEBU INHALATION SCH ×2 (07:50→21:25)
[2022-02-14] MEDS: BUDESONIDE 1 MG/2 ML NEBU INHALATION SCH ×2 (07:50→21:26)
[2022-02-14] MEDS: IPRATROPIUM-ALBUTEROL 3 ML NEB INHALATION SCH ×4 (07:50→21:25)
[2022-02-14 09:15] LABS: Basophils # (A) 0.01 X 10*3/uL (0.00-0.10); Basophils % (A) 0.1 %; Eosinophils # (A) 0 X 10*3/uL (0.04-0.35); Eosinophils % (A) 0 %; HCT 33.2 % (37.2-46.3); HGB 9.6 g/dL (12.0-15.0); Lymphocytes # (A) 0.22 X 10*3/uL (0.90-5.00); Lymphocytes % (A) 2.4 %; MCHC 28.9 g/dL (32.0-37.0); MCV 79.6 fL (80.0-97.0); Monocytes # (A) 0.45 X 10*3/uL (0.20-1.00); NRBC Per 100 WBC 0 /100 WBCS (0.0-0.0); Neutrophils % (A) 91.5 %; Platelet Count 211 X 10*3/uL (140-440); RBC 4.17 X 10*6/uL (4.10-5.20); RDW 16.9 % (11.5-14.5); WBC 9.07 X 10*3/uL (4.50-10.00)
[2022-02-14] MEDS: Acetaminophen-Codeine 300-30mg TAB PO PRN ×2 (09:45→16:35)
[2022-02-14 09:50] LABS: % Iron Saturation 26.45 (12.00-45.00); African American GFR (CKD) 90.3 (60.0-200.0); Anion Gap 8.2 mmol/L (10.00-18.00); Blood Urea Nitrogen 21.6 mg/dL (9.0-27.0); Calcium 8.5 mg/dL (8.7-10.3); Carbon Dioxide 32.8 mmol/L (20.0-27.5); Non-African American GFR(CKD) 77.9 (60.0-200.0); Potassium 3.9 mmol/L (3.5-5.5)
[2022-02-14] MEDS: predniSONE 20 MG TAB PO SCH (10:07)
--- NOTE | 2022-02-14 12:12 | P.PN ---
Subjective Progress Note Date: 02/14/22 Principal diagnosis: COPD exacerbation This is a very pleasant 66-year-old female patient with a known history of oxygen dependent chronic obstructive pulmonary disease, previous COVID-19 pneumonia, atrial fibrillation anticoagulated with Eliquis, coronary artery disease with previous stent placements, brain aneurysm status post clip, PT/PTT stenting of the right common iliac artery, hyperlipidemia, CVA/TIA, osteoarthritis. She was brought into the emergency room early yesterday morning by EMS with increasing shortness of breath cough and congestion. She did have some lower extremity edema. No pain. This x-ray reveals mild increased interstitial density along with some mild fibrosis. Evidence of COPD. Actual improvement in the pulmonary interstitial infiltrates compared to previous in June 2021. White count 8.2. Hemoglobin 9.5. Platelets 266. Sodium 139. Potassium 3.9. BUN 25. Creatinine 0.9. AST 39. ALT 44. Troponin negative times one. ProBNP 407. She is seen today in consultation on the regular medical floor. Currently sitting up in bed. Awake and alert. She has developed some hoarseness. She has some chest tightness and wheezing. She is maintaining O2 saturations at 90% on 4 L nasal cannula. He's been initiated on Symbicort, DuoNeb inhalations, IV Solu-Medrol. Continued on Singulair. Anticoagulated with Eliquis. The patient is seen today 02/08/2022 in follow-up on the regular medical floor. She is improved today compared to yesterday. A bit less bronchospastic and wheezy. She is still not quite back to her baseline. Dyspneic on exertion. Dyspneic with conversation. Anxious. She is maintaining good O2 saturations in the 90s on 3 L/m per nasal cannula. She's been afebrile. White count 5.3. Hemoglobin 10.1. Platelets 235. Sodium 136. Potassium 3.9. Bicarb 33. BUN 24. Creatinine 0.64. Glucose 138. Influenza, RSV and COVID-19 screen were all negative. Pro-calcitonin 0.11. She remains on Symbicort, DuoNeb inhalations, IV Solu-Medrol and Singulair. Anticoagulated with Eliquis. The patient is seen today 02/13/2022 in follow-up on the regular medical floor. She is status post bronchoscopy with BAL yesterday. Cultures are pending. She is feeling better today. Awake and alert in no acute distress. Maintaining O2 saturations in the 90s on 3 L/m per nasal cannula. She does have home oxygen. White count 10.9. Hemoglobin 10.1. Platelets 238. Sodium 141. Potassium 4.0. BUN 21. Creatinine 0.7. She's been afebrile. Hemodynamically stable. Continued on DuoNeb inhalations, Pulmicort and Perforomist inhalations, IV Solu- Medrol. She remains on Singulair, Tessalon Perles. Anticoagulated with Eliquis. The patient is seen today 02/14/2022 in follow-up on the regular medical floor. She is sitting up in bed. Awake and alert in no acute distress. She is maintaining good O2 saturations in the 90s on 3 L/m per nasal cannula. She is feeling nearly back to her baseline. Bronchial wash cultures are still pending. Pathology pending. White count 9.0. Hemoglobin 9.6. Platelets 211. Sodium 140. Potassium 3.9. BUN 21. Creatinine 0.8. Glucose 149. She is continued on DuoNeb inhalations, according Perforomist inhalations, prednisone, Tessalon Perles. Anticoagulated with Eliquis Objective - Vital Signs Vital signs: Vital Signs Temp 98.3 F 02/14/22 08:00 Pulse 69 02/14/22 11:14 Resp 18 02/14/22 08:00 BP 125/63 02/14/22 08:00 Pulse Ox 94 L 02/14/22 08:00 Intake & Output 02/13/22 02/14/22 02/14/22 18:59 06:59 18:59 Intake Total 1080 Balance 1080 Weight 104.326 kg Intake: Oral 1080 Other: Voiding Method Toilet Toilet # Voids 2 # Bowel Movements 1 - Exam GENERAL EXAM: Alert, 66-year-old female, on 3 L nasal cannula, comfortable in no apparent distress. HEAD: Normocephalic. EYES: Normal reaction of pupils, equal size. NOSE: Clear with pink turbinates. THROAT: No erythema or exudates. NECK: No masses, no JVD. CHEST: No chest wall deformity. LUNGS: Equal air entry with bilateral end expiratory wheeze. CVS: S1 and S2 normal with no audible murmur, regular rhythm. ABDOMEN: No hepatosplenomegaly, normal bowel sounds, no guarding or rigidity. SPINE: No scoliosis or deformity SKIN: No rashes CENTRAL NERVOUS SYSTEM: No focal deficits, tone is normal in all 4 extremities. EXTREMITIES: There is no peripheral edema. No clubbing, no cyanosis. Peripheral pulses are intact. - Labs CBC & Chem 7: 02/14/22 05:54 02/14/22 05:54 Labs: Abnormal Lab Results - Last 24 Hours (Table) 02/12/22 02/14/22 02/14/22 Range/Units 14:16 05:54 05:54 Hgb 9.6 L (12.0-15.0) g/dL Hct 33.2 L (37.2-46.3) % MCV 79.6 L (80.0-97.0) fL MCH 23.0 L (27.0-32.0) pg MCHC 28.9 L (32.0-37.0) g/dL RDW 16.9 H (11.5-14.5) % Immature Gran # 0.09 H (0.00-0.04) X 10*3/uL Neutrophils # 8.30 H (1.80-7.70) X 10*3/uL Lymphocytes # 0.22 L (0.90-5.00) X 10*3/uL Eosinophils # 0 L (0.04-0.35) X 10*3/uL Carbon Dioxide 32.8 H (20.0-27.5) mmol/L Anion Gap 8.20 L (10.00-18.00) mmol/L BUN/Creatinine Ratio 27.00 H (12.00-20.00) Ratio Glucose 149 H (70-110) mg/dL Calcium 8.5 L (8.7-10.3) mg/dL Viral Test See Below A Microbiology - Last 24 Hours (Table) 02/12/22 14:16 Acid Fast Bacilli Smear - Final Bronchial Washings - Random Acid Fast Bacilli Culture - Preliminary 02/12/22 14:16 Gram Stain - Preliminary Bronchial Washings - Random Bronchial Washings Culture - Preliminary Assessment and Plan Assessment: 1 Acute exacerbation of severe oxygen dependent chronic obstructive pulmonary disease with retained secretions. Status post bronchoscopy with BAL on 02/12/2022 2 History of COVID 19 pneumonia, with possible postinflammatory pulmonary fibrotic changes on chest x-ray. 3 History of atrial fibrillation. Currently in sinus rhythm. Anticoagulated with Eliquis. 4 History of CAD. 5 History of CVA. 6 History of gastroesophageal reflux disease. 7 Hyperlipidemia. 8 Myocardial infarction. 9 Status post clipping of a brain aneurysm, 2000. 10 Chronic hypoxemic respiratory failure. 11 Scoliosis. 12 CAD with previous stent placement. 13 Peripheral vascular disease Plan: The patient was seen and evaluated She is cleared for discharge Complete a prednisone taper starting at 40 mg daily for 4 days Follow-up in the office in 1-2 weeks' I have personally seen and examined the patient, performed the documentation and the assessment and plan as written. Number of minutes spent on the visit: 10.
[2022-02-14] MEDS: ATORVASTATIN 40 MG TAB PO SCH (19:50)
[2022-02-14] MEDS: MONTELUKAST 10 MG TAB PO SCH (19:50)
[2022-02-14] MEDS: ALPRAZolam 0.5 MG TAB PO PRN (19:51)
[2022-02-14] MEDS: LACTATED RINGERS 1,000 ML IV SCH (23:53)
[2022-02-15] MEDS: IPRATROPIUM-ALBUTEROL 3 ML NEB INHALATION SCH ×5 (01:08→19:55)
[2022-02-15] MEDS: Acetaminophen-Codeine 300-30mg TAB PO PRN ×4 (01:21→22:26)
[2022-02-15] MEDS: ALBUTEROL NEBULIZED 2.5 MG/3 ML INHALATION PRN ×2 (04:57→23:31)
[2022-02-15] MEDS: FAMOTIDINE 20 MG TAB PO SCH ×2 (08:00→17:12)
[2022-02-15] MEDS: FUROSEMIDE 20 MG TAB PO SCH (08:00)
[2022-02-15] MEDS: LOSARTAN 50 MG TAB PO SCH (08:00)
[2022-02-15] MEDS: BENZONATATE 100 MG CAP PO SCH ×2 (08:00→22:06)
[2022-02-15] MEDS: AMIODARONE 200 MG TAB PO SCH ×2 (08:00→22:06)
[2022-02-15] MEDS: predniSONE 20 MG TAB PO SCH (08:01)
[2022-02-15] MEDS: APIXABAN 5 MG TAB PO SCH ×2 (08:01→22:06)
[2022-02-15] MEDS: FORMOTEROL FUMARATE 20 MCG/2 ML NEBU INHALATION SCH ×2 (08:20→19:55)
[2022-02-15] MEDS: BUDESONIDE 1 MG/2 ML NEBU INHALATION SCH ×2 (08:20→19:55)
[2022-02-15 09:00] LABS: Basophils # (A) 0.02 X 10*3/uL (0.00-0.10); Basophils % (A) 0.2 %; Eosinophils # (A) 0 X 10*3/uL (0.04-0.35); Eosinophils % (A) 0 %; HCT 34.9 % (37.2-46.3); HGB 10.1 g/dL (12.0-15.0); Immature Grans, Automated 1.4 %; Lymphocytes # (A) 0.81 X 10*3/uL (0.90-5.00); Lymphocytes % (A) 6.9 %; MCH 23.2 pg (27.0-32.0); MCHC 28.9 g/dL (32.0-37.0); MCV 80.2 fL (80.0-97.0); Mean Platelet Volume 11.8 fL (9.5-12.2); Monocytes # (A) 0.93 X 10*3/uL (0.20-1.00); Monocytes % (A) 7.9 %; NRBC Per 100 WBC 0 /100 WBCS (0.0-0.0); Neutrophils # (A) 9.79 X 10*3/uL (1.80-7.70); Neutrophils % (A) 83.6 %; Platelet Count 211 X 10*3/uL (140-440); RBC 4.35 X 10*6/uL (4.10-5.20); RDW 17.1 % (11.5-14.5); WBC 11.71 X 10*3/uL (4.50-10.00)
[2022-02-15 09:08] LABS: African American GFR (CKD) 90.3 (60.0-200.0); Anion Gap 7.8 mmol/L (10.00-18.00); BUN/Creat Ratio 27.5 Ratio (12.00-20.00); Calcium 8.5 mg/dL (8.7-10.3); Carbon Dioxide 32.2 mmol/L (20.0-27.5); Non-African American GFR(CKD) 77.9 (60.0-200.0); Potassium 3.9 mmol/L (3.5-5.5)
--- NOTE | 2022-02-15 10:40 | P.PN ---
Subjective Progress Note Date: 02/13/22 Patient is a 66-year-old female with a known history of atrial fibrillation on anticoagulation with Eliquis, coronary artery disease status post stent placement, COPD, history of COVID-19 infection in January 2021, CVA/TIA, hyperlipidemia, GERD, history of brain aneurysm s/p clipping in 2000, chronic hypoxic respiratory failure on 2 L oxygen via nasal cannula and chronic low back pain, anxiety/depression and previous history of smoking presents to ER with complaints of worsening shortness of breath and cough. Patient has been having symptoms for the past 3 to 4 days. Patient has been having bilateral leg swelling after COVID-19 infection and has been in the same. Patient is using compression stockings at home. Denies any fever or chills. No sputum production. No chest pain. No headache or dizziness or lightheadedness. Chest x-ray showed mild increase in interstitial density could relate to some mild fibrosis. There is probably COPD. There is significant improvement in the pulmonary interstitial infiltrates compared to last exam. EKG showed sinus rhythm with first-degree AV block. Laboratory data showed WBC 9.0, hemoglobin 10.1 and platelets 229 D-dimer 0.82, sodium 136 potassium 4.0 chloride 101 BUN 21 and creatinine 1.0 and AST 39 ALT 44 and alk phos 82 troponin 0.012 and proBNP 407. Patient was tachypneic with respiratory rate 28 on admission and blood pressure was 208/93. 02/07/2022 Patient is seen and evaluated in follow up today and is being closely monitored with pulmonary following. Patient is continued on IV steroids along with breathing inhalational treatments and will continue. Patient with significant wheezing on inspiration and expiration with coughing spells noted on exam. Patient normally wears 2 liters at home chronically and has been requiring more oxygen and currently on 4-5L via NC. Patient is afebrile and denies chest pain. 02/10/2022 Patient is seen this morning in follow-up continues to be bronchospastic and extremely wheezing with expiration and inspiration. Pulmonary following the patient is continued on IV steroids along with breathing inhalational treatments and plan is for possible bronchoscopy tomorrow. Patient continued with increased anxiety with coughing spells and will increase xanax to TID prn. Patient denies chest pain and is afebrile. 02/11/2022 Patient is seen and evaluated today currently being followed closely by pulmonary. Patient is maintained on IV steroids along with breathing inhalational treatments and supplemental oxygen of 4 L. Patient continues to be extremely bronchospastic with severe wheezing on inspiration and expiration. Plan is for bronchoscopy tomorrow. Patient denies chest pain or worsening shortness of breath. Patient reports to continued frequent coughing attacks and feeling more dyspneic and denies much phlegm or sputum production. Encouraged increased activity as tolerated. Patient is afebrile. Tolerating diet with no reports of nausea or vomiting. 02/12/2022 Patient is still having shortness of breath and congested cough and diffuse wheezing on exam. Patient is scheduled for bronchoscopy today. Otherwise the patient is IV Solu-Medrol, Pulmicort, Perforomist and oxygen supplementation at 4 L via nasal cannula. Pulmonary is on board. Patient has been afebrile. No nausea vomiting abdominal pain or diarrhea. No fever no chills. No other acute overnight issues. 02/13/2022 Patient is currently resting and there. Anicteric hematemesis. Requiring oxygen at 3 L via nasal cannula. Patient is status post bronchoscopy and BAL fluid culture is pending. Otherwise patient is being continued on IV steroids, DuoNeb's and single A. Laboratory data showed WBC 10.9 hemoglobin 10.1 and platelets 238 sodium 141 potassium 4.0, BUN 21 and creatinine 0.7 patient has been afebrile. Pulmonary is on board. Review of systems: Constitutional: Denies chills, Denies fever, reports anxiety Cardiovascular: Denies chest pain, Denies palpitations Respiratory: reports continued dyspnea and wheezing with continued frequent coughing spells Gastrointestinal: Denies abdominal pain, Denies nausea, Denies vomiting Genitourinary: Denies dysuria or retention Neuro: No reports of weakness or numbness Active Medications Generic Name Dose Route Start Last Admin Trade Name Freq PRN Reason Stop Dose Admin Acetaminophen/Codeine Phosphate 1 each 02/06/22 06:24 02/12/22 16:10 Acetaminophen-Codeine 300-30mg Tab PO 1 each Q6H PRN Administration Pain Albuterol Sulfate 2.5 mg 02/10/22 23:23 02/12/22 04:31 Albuterol Nebulized 2.5 Mg/3 Ml INHALATION 2.5 mg RT-QID PRN Administration Shortness Of Breath Or Wheezing Albuterol/Ipratropium 3 ml 02/06/22 08:00 02/12/22 20:38 Ipratropium-Albuterol 3 Ml Neb INHALATION 3 ml RT-QID JULIANE Administration Alprazolam 0.5 mg 02/10/22 12:40 02/12/22 10:35 Alprazolam 0.5 Mg Tab PO 0.5 mg TID PRN Administration Anxiety Amiodarone HCl 200 mg 02/06/22 09:00 02/12/22 20:20 Amiodarone 200 Mg Tab PO 200 mg BID JUILANE Administration Apixaban 5 mg 02/06/22 09:00 02/12/22 20:20 Apixaban 5 Mg Tab PO 5 mg BID JULIANE Administration Protocol Atorvastatin Calcium 40 mg 02/06/22 21:00 02/12/22 20:20 Atorvastatin 40 Mg Tab PO 40 mg HS@2100 JULIANE Administration Benzonatate 100 mg 02/08/22 21:00 02/12/22 20:20 Benzonatate 100 Mg Cap PO 100 mg BID JULIANE Administration Budesonide 1 mg 02/10/22 20:00 02/12/22 20:38 Budesonide 1 Mg/2 Ml Nebu INHALATION 1 mg RT-BID JULIANE Administration Famotidine 20 mg 02/06/22 09:00 02/12/22 16:10 Famotidine 20 Mg Tab PO 20 mg BID@0900,1700 JULIANE Administration Formoterol Fumarate 20 mcg 02/10/22 20:00 02/12/22 20:38 Formoterol Fumarate 20 Mcg/2 Ml Nebu INHALATION 20 mcg RT-BID JULIANE Administration Furosemide 20 mg 02/06/22 09:00 02/12/22 08:00 Furosemide 20 Mg Tab PO 20 mg DAILY JULIANE Administration Lactated Ringer's 1,000 mls @ 20 mls/hr 02/11/22 12:30 02/12/22 11:50 Lactated Ringers IV Not Given .Q24H JULIANE Losartan Potassium 50 mg 02/07/22 09:00 02/12/22 08:01 Losartan 50 Mg Tab PO 50 mg DAILY JULIANE Administration Methylprednisolone Sodium Succinate 60 mg 02/07/22 08:45 02/12/22 17:11 Methylprednisolone Sod Succi 125 Mg/2 Ml Vial IV 60 mg Q6HR JULIANE Administration Montelukast Sodium 10 mg 02/06/22 21:00 02/12/22 20:20 Montelukast 10 Mg Tab PO 10 mg HS JULIANE Administration Objective - Vital Signs Vital signs: Vital Signs Temp 97.7 F 02/13/22 14:00 Pulse 77 02/13/22 14:00 Resp 19 02/13/22 14:00 BP 112/55 02/13/22 14:00 Pulse Ox 95 02/13/22 14:00 Intake & Output 02/12/22 02/13/22 02/13/22 18:59 06:59 18:59 Intake Total 200 Balance 200 Weight 104.326 kg Intake: IV 200 Other: Voiding Method Toilet Toilet # Voids 4 - Exam PHYSICAL EXAMINATION: Patient is lying in the bed comfortably, no acute distress, sleeping although e asily arousable, alert and oriented x3.. HEENT: Normocephalic. Neck is supple. Pupils reactive. Nostrils clear. Oral cavity is moist. Neck reveals no JVD, carotid bruits, or thyromegaly. CHEST EXAMINATION: Trachea is central. Symmetrical expansion. Normal S1, S2 with no gallops. No murmurs Respiratory: Bilateral expiratory wheezing and scattered rhonchi. Nonlabored breathing ABDOMEN: Soft. Bowel sounds normal. No organomegaly. No abdominal bruits. Extremities: Bilateral 2+ pedal edema. No clubbing or cyanosis Neurologically awake, alert, oriented x3 with well-coordinated movements. No focal deficits noted Skin: No rash or skin lesions. Psychiatric: Cooperative. Non-suicidal, anxious. Musculoskeletal: No joint swelling or deformity. Normal range of motion. - Labs CBC & Chem 7: 02/15/22 05:32 02/15/22 05:32 Labs: Abnormal Lab Results - Last 24 Hours (Table) 02/12/22 02/12/22 02/13/22 Range/Units 14:16 16:14 05:27 WBC 10.93 H (4.50-10.00) X 10*3/uL Hgb 10.1 L (12.0-15.0) g/dL Hct 34.4 L (37.2-46.3) % MCH 23.9 L (27.0-32.0) pg MCHC 29.4 L (32.0-37.0) g/dL RDW 16.8 H (11.5-14.5) % Immature Gran # 0.08 H (0.00-0.04) X 10*3/uL Neutrophils # 10.16 H (1.80-7.70) X 10*3/uL Lymphocytes # 0.20 L (0.90-5.00) X 10*3/uL Eosinophils # 0 L (0.04-0.35) X 10*3/uL Carbon Dioxide (20.0-27.5) mmol/L Anion Gap (10.00-18.00) mmol/L BUN/Creatinine Ratio (12.00-20.00) Ratio Glucose (70-110) mg/dL POC Glucose (mg/dL) 163 H (75-99) mg/dL Calcium (8.7-10.3) mg/dL Viral Test See Below A 02/13/22 Range/Units 05:27 WBC (4.50-10.00) X 10*3/uL Hgb (12.0-15.0) g/dL Hct (37.2-46.3) % MCH (27.0-32.0) pg MCHC (32.0-37.0) g/dL RDW (11.5-14.5) % Immature Gran # (0.00-0.04) X 10*3/uL Neutrophils # (1.80-7.70) X 10*3/uL Lymphocytes # (0.90-5.00) X 10*3/uL Eosinophils # (0.04-0.35) X 10*3/uL Carbon Dioxide 32.7 H (20.0-27.5) mmol/L Anion Gap 7.60 L (10.00-18.00) mmol/L BUN/Creatinine Ratio 32.52 H (12.00-20.00) Ratio Glucose 152 H (70-110) mg/dL POC Glucose (mg/dL) (75-99) mg/dL Calcium 8.6 L (8.7-10.3) mg/dL Viral Test Microbiology - Last 24 Hours (Table) 02/12/22 14:16 Fungal Culture - Preliminary Bronchial Washings - Random 02/12/22 14:16 Acid Fast Bacilli Culture - Preliminary Bronchial Washings - Random 02/12/22 14:16 Bronchial Washings Culture - Preliminary Bronchial Washings - Random Assessment and Plan Assessment: Shortness of breath secondary to acute COPD exacerbation Acute on chronic hypoxic respiratory failure. On oxygen at 2 L via nasal cannula at home Hypertensive urgency on admission, improving History of COVID-19 infection in January 2021 with mild fibrotic changes on x-ray. Paroxysmal atrial fibrillation on anticoagulation with Eliquis. Also on amiodarone. History of CVA/TIA Bilateral lower extremity swelling Coronary artery disease with history of stent placement Hyperlipidemia GERD History of brain aneurysm status post clipping in 2000 Chronic low back pain, scoliosis Anxiety/depression DVT prophylaxis patient is already on Eliquis GI prophylaxis Full code Plan: Patient continued on IV steroids 60mg q6 hours. Continues with duo nebs and Symbicort. Oxygen supplementation currently at 3 L via nasal cannula. Wean as tolerated. Status post bronchoscopy yesterday.. Patient with continued anxiety during coughing spells and doing somewhat better with xanax TID and monitor closely. Encouraged the patient to elevate lower extremities while at rest and continue with compression stockings. Recommend close monitoring. Prognosis is guarded. Time with Patient: Greater than 30
--- NOTE | 2022-02-15 10:42 | P.PN ---
Subjective Progress Note Date: 02/14/22 Patient is a 66-year-old female with a known history of atrial fibrillation on anticoagulation with Eliquis, coronary artery disease status post stent placement, COPD, history of COVID-19 infection in January 2021, CVA/TIA, hyperlipidemia, GERD, history of brain aneurysm s/p clipping in 2000, chronic hypoxic respiratory failure on 2 L oxygen via nasal cannula and chronic low back pain, anxiety/depression and previous history of smoking presents to ER with complaints of worsening shortness of breath and cough. Patient has been having symptoms for the past 3 to 4 days. Patient has been having bilateral leg swelling after COVID-19 infection and has been in the same. Patient is using compression stockings at home. Denies any fever or chills. No sputum production. No chest pain. No headache or dizziness or lightheadedness. Chest x-ray showed mild increase in interstitial density could relate to some mild fibrosis. There is probably COPD. There is significant improvement in the pulmonary interstitial infiltrates compared to last exam. EKG showed sinus rhythm with first-degree AV block. Laboratory data showed WBC 9.0, hemoglobin 10.1 and platelets 229 D-dimer 0.82, sodium 136 potassium 4.0 chloride 101 BUN 21 and creatinine 1.0 and AST 39 ALT 44 and alk phos 82 troponin 0.012 and proBNP 407. Patient was tachypneic with respiratory rate 28 on admission and blood pressure was 208/93. 02/07/2022 Patient is seen and evaluated in follow up today and is being closely monitored with pulmonary following. Patient is continued on IV steroids along with breathing inhalational treatments and will continue. Patient with significant wheezing on inspiration and expiration with coughing spells noted on exam. Patient normally wears 2 liters at home chronically and has been requiring more oxygen and currently on 4-5L via [place]. Patient is afebrile and denies chest pain. 02/10/2022 Patient is seen this morning in follow-up continues to be bronchospastic and extremely wheezing with expiration and inspiration. Pulmonary following the patient is continued on IV steroids along with breathing inhalational treatments and plan is for possible bronchoscopy tomorrow. Patient continued with increased anxiety with coughing spells and will increase xanax to TID prn. Patient denies chest pain and is afebrile. 02/11/2022 Patient is seen and evaluated today currently being followed closely by pulmonary. Patient is maintained on IV steroids along with breathing inhalational treatments and supplemental oxygen of 4 L. Patient continues to be extremely bronchospastic with severe wheezing on inspiration and expiration. Plan is for bronchoscopy tomorrow. Patient denies chest pain or worsening shortness of breath. Patient reports to continued frequent coughing attacks and feeling more dyspneic and denies much phlegm or sputum production. Encouraged increased activity as tolerated. Patient is afebrile. Tolerating diet with no reports of nausea or vomiting. 02/12/2022 Patient is still having shortness of breath and congested cough and diffuse wheezing on exam. Patient is scheduled for bronchoscopy today. Otherwise the patient is IV Solu-Medrol, Pulmicort, Perforomist and oxygen supplementation at 4 L via nasal cannula. Pulmonary is on board. Patient has been afebrile. No nausea vomiting abdominal pain or diarrhea. No fever no chills. No other acute overnight issues. 02/13/2022 Patient is currently resting and there. Anicteric hematemesis. Requiring oxygen at 3 L via nasal cannula. Patient is status post bronchoscopy and BAL fluid culture is pending. Otherwise patient is being continued on IV steroids, DuoNeb's and single A. Laboratory data showed WBC 10.9 hemoglobin 10.1 and platelets 238 sodium 141 potassium 4.0, BUN 21 and creatinine 0.7 patient has been afebrile. Pulmonary is on board. 02/14/2022 Patient is currently resting in bed. Breathing status is better. No complaints of chest pain or shortness of breath. Requiring 3 L oxygen with another tele metry. Patient still having expiratory wheezing. Patient is status post bronchoscopy and bronchial fluid culture is pending. No gross O4. Fluid cytology is pending. Laboratory data showed no recent 9.0 hemoglobin 9.6 and platelets 211 Sodium 140 potassium 3.9, BUN 21 and creatinine 0.8 and blood sugar is 149. Patient is being treated on prednisone and Pulmicort and Perforomist. Continued on DuoNeb's. On antibiotics with the decrease. Anticipate discharge next 24 hours. Review of systems: Constitutional: Denies chills, Denies fever, reports anxiety Cardiovascular: Denies chest pain, Denies palpitations Respiratory: reports continued dyspnea and wheezing with continued frequent coughing spells Gastrointestinal: Denies abdominal pain, Denies nausea, Denies vomiting Genitourinary: Denies dysuria or retention Neuro: No reports of weakness or numbness Current medications reviewed. Objective - Vital Signs Vital signs: Vital Signs Temp 98.1 F 02/14/22 14:00 Pulse 74 02/14/22 21:50 Resp 18 02/14/22 20:07 BP 130/67 02/14/22 14:00 Pulse Ox 93 L 02/14/22 14:00 Intake & Output 02/14/22 02/14/22 02/15/22 06:59 18:59 06:59 Other: Voiding Method Toilet Toilet # Voids 3 - Exam PHYSICAL EXAMINATION: Patient is lying in the bed comfortably, no acute distress, sleeping although easily arousable, alert and oriented x3.. HEENT: Normocephalic. Neck is supple. Pupils reactive. Nostrils clear. Oral cavity is moist. Neck reveals no JVD, carotid bruits, or thyromegaly. CHEST EXAMINATION: Trachea is central. Symmetrical expansion. Normal S1, S2 with no gallops. No murmurs Respiratory: Bilateral expiratory wheezing and scattered rhonchi. Nonlabored breathing ABDOMEN: Soft. Bowel sounds normal. No organomegaly. No abdominal bruits. Extremities: Bilateral 2+ pedal edema. No clubbing or cyanosis Neurologically awake, alert, oriented x3 with well-coordinated movements. No focal deficits noted Skin: No rash or skin lesions. Psychiatric: Cooperative. Non-suicidal, anxious. Musculoskeletal: No joint swelling or deformity. Normal range of motion. - Labs CBC & Chem 7: 02/15/22 05:32 02/15/22 05:32 Labs: Abnormal Lab Results - Last 24 Hours (Table) 02/14/22 02/14/22 Range/Units 05:54 05:54 Hgb 9.6 L (12.0-15.0) g/dL Hct 33.2 L (37.2-46.3) % MCV 79.6 L (80.0-97.0) fL MCH 23.0 L (27.0-32.0) pg MCHC 28.9 L (32.0-37.0) g/dL RDW 16.9 H (11.5-14.5) % Immature Gran # 0.09 H (0.00-0.04) X 10*3/uL Neutrophils # 8.30 H (1.80-7.70) X 10*3/uL Lymphocytes # 0.22 L (0.90-5.00) X 10*3/uL Eosinophils # 0 L (0.04-0.35) X 10*3/uL Carbon Dioxide 32.8 H (20.0-27.5) mmol/L Anion Gap 8.20 L (10.00-18.00) mmol/L BUN/Creatinine Ratio 27.00 H (12.00-20.00) Ratio Glucose 149 H (70-110) mg/dL Calcium 8.5 L (8.7-10.3) mg/dL Microbiology - Last 24 Hours (Table) 02/12/22 14:16 Acid Fast Bacilli Smear - Final Bronchial Washings - Random Acid Fast Bacilli Culture - Preliminary 02/12/22 14:16 Gram Stain - Preliminary Bronchial Washings - Random Bronchial Washings Culture - Preliminary Assessment and Plan Assessment: Shortness of breath secondary to acute COPD exacerbation Acute on chronic hypoxic respiratory failure. On oxygen at 2 L via nasal cannula at home Hypertensive urgency on admission, improving History of COVID-19 infection in January 2021 with mild fibrotic changes on x-ray. Paroxysmal atrial fibrillation on anticoagulation with Eliquis. Also on amiodarone. History of CVA/TIA Bilateral lower extremity swelling Coronary artery disease with history of stent placement Hyperlipidemia GERD History of brain aneurysm status post clipping in 2000 Chronic low back pain, scoliosis Anxiety/depression DVT prophylaxis patient is already on Eliquis GI prophylaxis Full code Plan: Patient continued on IV steroids 60mg q6 hours. Continues with duo nebs and Symbicort. Oxygen supplementation currently at 3 L via nasal cannula. Wean as tolerated. Status post bronchoscopy yesterday.. Patient with continued anxiety during coughing spells and doing somewhat better with xanax TID and monitor closely. Encouraged the patient to elevate lower extremities while at rest and continue with compression stockings. Recommend close monitoring. Prognosis is guarded. Time with Patient: Greater than 30
[2022-02-15] MEDS: MAG HYDROX/AL HYDROX/SIMETH 30 ML CUP PO SCH ×3 (12:24→22:26)
[2022-02-15] MEDS: LACTATED RINGERS 1,000 ML IV SCH (12:24)
--- NOTE | 2022-02-15 14:39 | P.PN ---
Subjective Progress Note Date: 02/15/22 Principal diagnosis: COPD exacerbation This is a very pleasant 66-year-old female patient with a known history of oxygen dependent chronic obstructive pulmonary disease, previous COVID-19 pneumonia, atrial fibrillation anticoagulated with Eliquis, coronary artery disease with previous stent placements, brain aneurysm status post clip, PT/PTT stenting of the right common iliac artery, hyperlipidemia, CVA/TIA, osteoarthritis. She was brought into the emergency room early yesterday morning by EMS with increasing shortness of breath cough and congestion. She did have some lower extremity edema. No pain. This x-ray reveals mild increased interstitial density along with some mild fibrosis. Evidence of COPD. Actual improvement in the pulmonary interstitial infiltrates compared to previous in June 2021. White count 8.2. Hemoglobin 9.5. Platelets 266. Sodium 139. Potassium 3.9. BUN 25. Creatinine 0.9. AST 39. ALT 44. Troponin negative times one. ProBNP 407. She is seen today in consultation on the regular medical floor. Currently sitting up in bed. Awake and alert. She has developed some hoarseness. She has some chest tightness and wheezing. She is maintaining O2 saturations at 90% on 4 L nasal cannula. He's been initiated on Symbicort, DuoNeb inhalations, IV Solu-Medrol. Continued on Singulair. Anticoagulated with Eliquis. The patient is seen today 02/08/2022 in follow-up on the regular medical floor. She is improved today compared to yesterday. A bit less bronchospastic and wheezy. She is still not quite back to her baseline. Dyspneic on exertion. Dyspneic with conversation. Anxious. She is maintaining good O2 saturations in the 90s on 3 L/m per nasal cannula. She's been afebrile. White count 5.3. Hemoglobin 10.1. Platelets 235. Sodium 136. Potassium 3.9. Bicarb 33. BUN 24. Creatinine 0.64. Glucose 138. Influenza, RSV and COVID-19 screen were all negative. Pro-calcitonin 0.11. She remains on Symbicort, DuoNeb inhalations, IV Solu-Medrol and Singulair. Anticoagulated with Eliquis. The patient is seen today 02/13/2022 in follow-up on the regular medical floor. She is status post bronchoscopy with BAL yesterday. Cultures are pending. She is feeling better today. Awake and alert in no acute distress. Maintaining O2 saturations in the 90s on 3 L/m per nasal cannula. She does have home oxygen. White count 10.9. Hemoglobin 10.1. Platelets 238. Sodium 141. Potassium 4.0. BUN 21. Creatinine 0.7. She's been afebrile. Hemodynamically stable. Continued on DuoNeb inhalations, Pulmicort and Perforomist inhalations, IV Solu- Medrol. She remains on Singulair, Tessalon Perles. Anticoagulated with Eliquis. The patient is seen today 02/14/2022 in follow-up on the regular medical floor. She is sitting up in bed. Awake and alert in no acute distress. She is maintaining good O2 saturations in the 90s on 3 L/m per nasal cannula. She is feeling nearly back to her baseline. Bronchial wash cultures are still pending. Pathology pending. White count 9.0. Hemoglobin 9.6. Platelets 211. Sodium 140. Potassium 3.9. BUN 21. Creatinine 0.8. Glucose 149. She is continued on DuoNeb inhalations, according Perforomist inhalations, prednisone, Tessalon Perles. Anticoagulated with Eliquis. Patient is seen today 02/15/2022 in follow-up on the regular medical floor. She is currently resting comfortably in bed. She is maintaining good O2 saturations in the 90s on 3 L/m per nasal cannula. White count 11.7. Hemoglobin 10.1. Sodium 140. Potassium 3.9. BUN 22. Creatinine 0.8. Bronchial wash cultures are pending. Cytology pending. She is continued on prednisone taper, bronchodilators. Anticoagulated with Eliquis. Objective - Vital Signs Vital signs: Vital Signs Temp 98.4 F 02/15/22 08:00 Pulse 76 02/15/22 11:43 Resp 16 02/15/22 08:00 BP 137/68 02/15/22 08:00 Pulse Ox 95 02/15/22 08:00 Intake & Output 02/14/22 02/15/22 02/15/22 18:59 06:59 18:59 Intake Total 400 Balance 400 Intake: Oral 400 Other: Voiding Method Toilet Toilet Toilet # Voids 3 2 - Exam GENERAL EXAM: Alert, 66-year-old female, on 3 L nasal cannula, comfortable in no apparent distress. HEAD: Normocephalic. EYES: Normal reaction of pupils, equal size. NOSE: Clear with pink turbinates. THROAT: No erythema or exudates. NECK: No masses, no JVD. CHEST: No chest wall deformity. LUNGS: Equal air entry with bilateral end expiratory wheeze. CVS: S1 and S2 normal with no audible murmur, regular rhythm. ABDOMEN: No hepatosplenomegaly, normal bowel sounds, no guarding or rigidity. SPINE: No scoliosis or deformity SKIN: No rashes CENTRAL NERVOUS SYSTEM: No focal deficits, tone is normal in all 4 extremities. EXTREMITIES: There is no peripheral edema. No clubbing, no cyanosis. Peripheral pulses are intact. - Labs CBC & Chem 7: 02/15/22 05:32 02/15/22 05:32 Labs: Abnormal Lab Results - Last 24 Hours (Table) 02/15/22 02/15/22 Range/Units 05:32 05:32 WBC 11.71 H (4.50-10.00) X 10*3/uL Hgb 10.1 L (12.0-15.0) g/dL Hct 34.9 L (37.2-46.3) % MCH 23.2 L (27.0-32.0) pg MCHC 28.9 L (32.0-37.0) g/dL RDW 17.1 H (11.5-14.5) % Immature Gran # 0.16 H (0.00-0.04) X 10*3/uL Neutrophils # 9.79 H (1.80-7.70) X 10*3/uL Lymphocytes # 0.81 L (0.90-5.00) X 10*3/uL Eosinophils # 0 L (0.04-0.35) X 10*3/uL Carbon Dioxide 32.2 H (20.0-27.5) mmol/L Anion Gap 7.80 L (10.00-18.00) mmol/L BUN/Creatinine Ratio 27.50 H (12.00-20.00) Ratio Calcium 8.5 L (8.7-10.3) mg/dL Assessment and Plan Assessment: 1 Acute exacerbation of severe oxygen dependent chronic obstructive pulmonary disease with retained secretions. Status post bronchoscopy with BAL on 02/12/2022 2 History of COVID 19 pneumonia, with possible postinflammatory pulmonary fib rotic changes on chest x-ray. 3 History of atrial fibrillation. Currently in sinus rhythm. Anticoagulated with Eliquis. 4 History of CAD. 5 History of CVA. 6 History of gastroesophageal reflux disease. 7 Hyperlipidemia. 8 Myocardial infarction. 9 Status post clipping of a brain aneurysm, 2000. 10 Chronic hypoxemic respiratory failure. 11 Scoliosis. 12 CAD with previous stent placement. 13 Peripheral vascular disease Plan: The patient was seen and evaluated She is cleared for discharge Complete a prednisone taper Follow-up in the office in 1-2 weeks' I have personally seen and examined the patient, performed the documentation and the assessment and plan as written. Number of minutes spent on the visit: 10.
[2022-02-15] MEDS: ATORVASTATIN 40 MG TAB PO SCH (22:04)
[2022-02-15] MEDS: MONTELUKAST 10 MG TAB PO SCH (22:06)
--- NOTE | 2022-02-15 23:01 | P.PN ---
Subjective Progress Note Date: 02/15/22 Patient is a 66-year-old female with a known history of atrial fibrillation on anticoagulation with Eliquis, coronary artery disease status post stent placement, COPD, history of COVID-19 infection in January 2021, CVA/TIA, hyperlipidemia, GERD, history of brain aneurysm s/p clipping in 2000, chronic hypoxic respiratory failure on 2 L oxygen via nasal cannula and chronic low back pain, anxiety/depression and previous history of smoking presents to ER with complaints of worsening shortness of breath and cough. Patient has been having symptoms for the past 3 to 4 days. Patient has been having bilateral leg swelling after COVID-19 infection and has been in the same. Patient is using compression stockings at home. Denies any fever or chills. No sputum production. No chest pain. No headache or dizziness or lightheadedness. Chest x-ray showed mild increase in interstitial density could relate to some mild fibrosis. There is probably COPD. There is significant improvement in the pulmonary interstitial infiltrates compared to last exam. EKG showed sinus rhythm with first-degree AV block. Laboratory data showed WBC 9.0, hemoglobin 10.1 and platelets 229 D-dimer 0.82, sodium 136 potassium 4.0 chloride 101 BUN 21 and creatinine 1.0 and AST 39 ALT 44 and alk phos 82 troponin 0.012 and proBNP 407. Patient was tachypneic with respiratory rate 28 on admission and blood pressure was 208/93. 02/07/2022 Patient is seen and evaluated in follow up today and is being closely monitored with pulmonary following. Patient is continued on IV steroids along with breathing inhalational treatments and will continue. Patient with significant wheezing on inspiration and expiration with coughing spells noted on exam. Patient normally wears 2 liters at home chronically and has been requiring more oxygen and currently on 4-5L via [place]. Patient is afebrile and denies chest pain. 02/10/2022 Patient is seen this morning in follow-up continues to be bronchospastic and extremely wheezing with expiration and inspiration. Pulmonary following the patient is continued on IV steroids along with breathing inhalational treatments and plan is for possible bronchoscopy tomorrow. Patient continued with increased anxiety with coughing spells and will increase xanax to TID prn. Patient denies chest pain and is afebrile. 02/11/2022 Patient is seen and evaluated today currently being followed closely by pulmonary. Patient is maintained on IV steroids along with breathing inhalational treatments and supplemental oxygen of 4 L. Patient continues to be extremely bronchospastic with severe wheezing on inspiration and expiration. Plan is for bronchoscopy tomorrow. Patient denies chest pain or worsening shortness of breath. Patient reports to continued frequent coughing attacks and feeling more dyspneic and denies much phlegm or sputum production. Encouraged increased activity as tolerated. Patient is afebrile. Tolerating diet with no reports of nausea or vomiting. 02/12/2022 Patient is still having shortness of breath and congested cough and diffuse wheezing on exam. Patient is scheduled for bronchoscopy today. Otherwise the patient is IV Solu-Medrol, Pulmicort, Perforomist and oxygen supplementation at 4 L via nasal cannula. Pulmonary is on board. Patient has been afebrile. No nausea vomiting abdominal pain or diarrhea. No fever no chills. No other acute overnight issues. 02/13/2022 Patient is currently resting and there. Anicteric hematemesis. Requiring oxygen at 3 L via nasal cannula. Patient is status post bronchoscopy and BAL fluid culture is pending. Otherwise patient is being continued on IV steroids, DuoNeb's and single A. Laboratory data showed WBC 10.9 hemoglobin 10.1 and platelets 238 sodium 141 potassium 4.0, BUN 21 and creatinine 0.7 patient has been afebrile. Pulmonary is on board. 02/14/2022 Patient is currently resting in bed. Breathing status is better. No complaints of chest pain or shortness of breath. Requiring 3 L oxygen with another tele metry. Patient still having expiratory wheezing. Patient is status post bronchoscopy and bronchial fluid culture is pending. No gross O4. Fluid cytology is pending. Laboratory data showed no recent 9.0 hemoglobin 9.6 and platelets 211 Sodium 140 potassium 3.9, BUN 21 and creatinine 0.8 and blood sugar is 149. Patient is being treated on prednisone and Pulmicort and Perforomist. Continued on DuoNeb's. On antibiotics with the decrease. Anticipate discharge next 24 hours. 02/15/2022 Patient is currently in the medical floor. Awake alert and oriented x3. Patient is complaining of throat pain and fullness of the neck today afternoon. Also complains of burning pain in the epigastric region. No complaints of chest pain. Denies any worsening shortness of breath. Patient is still having bilateral wheezing but improved air entry. Patient has been afebrile. Laboratory data showed WBC 11.7 hemoglobin 10.1 and platelets 211 Sodium 140 potassium 3.9 chloride 100 bicarb is 32.3 and BUN 22.0 and creatinine 0.8 and calcium 8.5. Spent discharge in the next 24 hours with more clinical improvement. Review of systems: Constitutional: Denies chills, Denies fever, reports anxiety Cardiovascular: Denies chest pain, Denies palpitations Gastrointestinal: Denies abdominal pain, Denies nausea, Denies vomiting Genitourinary: Denies dysuria or retention Neuro: No reports of weakness or numbness Current medications reviewed. Objective - Vital Signs Vital signs: Vital Signs Temp 98.8 F 02/15/22 14:00 Pulse 78 02/15/22 20:12 Resp 18 02/15/22 16:02 BP 139/59 02/15/22 14:00 Pulse Ox 96 02/15/22 14:00 Intake & Output 02/15/22 02/15/22 02/16/22 06:59 18:59 06:59 Intake Total 400 Balance 400 Intake: Oral 400 Other: Voiding Method Toilet Toilet # Voids 2 5 - Exam PHYSICAL EXAMINATION: Patient is lying in the bed comfortably, no acute distress, sleeping although easily arousable, alert and oriented x3.. HEENT: Normocephalic. Neck is supple. Pupils reactive. Nostrils clear. Oral cavity is moist. Neck reveals no JVD, carotid bruits, or thyromegaly. CHEST EXAMINATION: Trachea is central. Symmetrical expansion. Normal S1, S2 with no gallops. No murmurs Respiratory: Bilateral expiratory wheezing and scattered rhonchi. Nonlabored breathing ABDOMEN: Soft. Bowel sounds normal. No organomegaly. No abdominal bruits. Extremities: Bilateral 2+ pedal edema. No clubbing or cyanosis Neurologically awake, alert, oriented x3 with well-coordinated movements. No focal deficits noted Skin: No rash or skin lesions. Psychiatric: Cooperative. Non-suicidal, anxious. Musculoskeletal: No joint swelling or deformity. Normal range of motion. - Labs CBC & Chem 7: 02/15/22 05:32 02/15/22 05:32 Labs: Abnormal Lab Results - Last 24 Hours (Table) 02/15/22 02/15/22 Range/Units 05:32 05:32 WBC 11.71 H (4.50-10.00) X 10*3/uL Hgb 10.1 L (12.0-15.0) g/dL Hct 34.9 L (37.2-46.3) % MCH 23.2 L (27.0-32.0) pg MCHC 28.9 L (32.0-37.0) g/dL RDW 17.1 H (11.5-14.5) % Immature Gran # 0.16 H (0.00-0.04) X 10*3/uL Neutrophils # 9.79 H (1.80-7.70) X 10*3/uL Lymphocytes # 0.81 L (0.90-5.00) X 10*3/uL Eosinophils # 0 L (0.04-0.35) X 10*3/uL Carbon Dioxide 32.2 H (20.0-27.5) mmol/L Anion Gap 7.80 L (10.00-18.00) mmol/L BUN/Creatinine Ratio 27.50 H (12.00-20.00) Ratio Calcium 8.5 L (8.7-10.3) mg/dL Microbiology - Last 24 Hours (Table) 02/12/22 14:16 Gram Stain - Preliminary Bronchial Washings - Random Bronchial Washings Culture - Preliminary Corynebacterium striatum Assessment and Plan Assessment: Shortness of breath secondary to acute COPD exacerbation Acute on chronic hypoxic respiratory failure. On oxygen at 2 L via nasal cannula at home Hypertensive urgency on admission, improving History of COVID-19 infection in January 2021 with mild fibrotic changes on x-ray. Paroxysmal atrial fibrillation on anticoagulation with Eliquis. Also on amiodarone. History of CVA/TIA Bilateral lower extremity swelling Coronary artery disease with history of stent placement Hyperlipidemia GERD History of brain aneurysm status post clipping in 2000 Chronic low back pain, scoliosis Anxiety/depression DVT prophylaxis patient is already on Eliquis GI prophylaxis Full code Plan: IV methylprednisolone changed to prednisone 40 mg daily.. Continues with duo nebs and Symbicort. Oxygen supplementation currently at 3 L via nasal cannula. Wean as tolerated. Status post bronchoscopy. BAL culture showed Corynebacterium species.. Patient with continued anxiety during coughing spells and doing somewhat better with xanax TID and monitor closely. Encouraged the patient to elevate lower extremities while at rest and continue with compression stockings. GI prophylaxis. Anticipate discharge in next 24 hours. Time with Patient: Greater than 30
[2022-02-16] MEDS: ALBUTEROL NEBULIZED 2.5 MG/3 ML INHALATION PRN (03:05)
[2022-02-16] MEDS: Acetaminophen-Codeine 300-30mg TAB PO PRN ×2 (05:14→13:34)
[2022-02-16] MEDS: AMIODARONE 200 MG TAB PO SCH (08:04)
[2022-02-16] MEDS: APIXABAN 5 MG TAB PO SCH (08:04)
[2022-02-16] MEDS: FAMOTIDINE 20 MG TAB PO SCH ×2 (08:04→18:23)
[2022-02-16] MEDS: FUROSEMIDE 20 MG TAB PO SCH (08:04)
[2022-02-16] MEDS: predniSONE 20 MG TAB PO SCH (08:04)
[2022-02-16] MEDS: MAG HYDROX/AL HYDROX/SIMETH 30 ML CUP PO SCH ×3 (08:05→18:23)
[2022-02-16] MEDS: LOSARTAN 50 MG TAB PO SCH (08:05)
[2022-02-16] MEDS: BENZONATATE 100 MG CAP PO SCH (08:05)
[2022-02-16] MEDS: BUDESONIDE 1 MG/2 ML NEBU INHALATION SCH (08:13)
[2022-02-16] MEDS: FORMOTEROL FUMARATE 20 MCG/2 ML NEBU INHALATION SCH (08:13)
[2022-02-16] MEDS: IPRATROPIUM-ALBUTEROL 3 ML NEB INHALATION SCH ×3 (08:13→16:30)
[2022-02-16 09:07] VITALS: TEMP 98.2
[2022-02-16 09:09] LABS: Basophils # (A) 0.01 X 10*3/uL (0.00-0.10); Basophils % (A) 0.1 %; Eosinophils # (A) 0.02 X 10*3/uL (0.04-0.35); Eosinophils % (A) 0.2 %; HCT 33.2 % (37.2-46.3); HGB 9.7 g/dL (12.0-15.0); Immature Grans, Automated 2.2 %; Lymphocytes # (A) 0.79 X 10*3/uL (0.90-5.00); Lymphocytes % (A) 8.3 %; MCH 23.5 pg (27.0-32.0); MCHC 29.2 g/dL (32.0-37.0); MCV 80.4 fL (80.0-97.0); Mean Platelet Volume 11.5 fL (9.5-12.2); Monocytes # (A) 0.94 X 10*3/uL (0.20-1.00); Monocytes % (A) 9.9 %; NRBC Per 100 WBC 0 /100 WBCS (0.0-0.0); Neutrophils % (A) 79.3 %; Platelet Count 175 X 10*3/uL (140-440); RBC 4.13 X 10*6/uL (4.10-5.20); RDW 17.2 % (11.5-14.5); WBC 9.47 X 10*3/uL (4.50-10.00)
[2022-02-16 09:38] LABS: African American GFR (CKD) 106.8 (60.0-200.0); Anion Gap 8.4 mmol/L (10.00-18.00); BUN/Creat Ratio 24.93 Ratio (12.00-20.00); Blood Urea Nitrogen 17.1 mg/dL (9.0-27.0); Calcium 8.3 mg/dL (8.7-10.3); Carbon Dioxide 29.5 mmol/L (20.0-27.5); Non-African American GFR(CKD) 92.2 (60.0-200.0); Potassium 3.9 mmol/L (3.5-5.5)
[2022-02-16] MEDS: LACTATED RINGERS 1,000 ML IV SCH (11:53)
--- NOTE | 2022-02-16 15:11 | P.PN ---
Subjective Progress Note Date: 02/16/22 Principal diagnosis: COPD exacerbation This is a very pleasant 66-year-old female patient with a known history of oxygen dependent chronic obstructive pulmonary disease, previous COVID-19 pneumonia, atrial fibrillation anticoagulated with Eliquis, coronary artery disease with previous stent placements, brain aneurysm status post clip, PT/PTT stenting of the right common iliac artery, hyperlipidemia, CVA/TIA, osteoarthritis. She was brought into the emergency room early yesterday morning by EMS with increasing shortness of breath cough and congestion. She did have some lower extremity edema. No pain. This x-ray reveals mild increased interstitial density along with some mild fibrosis. Evidence of COPD. Actual improvement in the pulmonary interstitial infiltrates compared to previous in June 2021. White count 8.2. Hemoglobin 9.5. Platelets 266. Sodium 139. Potassium 3.9. BUN 25. Creatinine 0.9. AST 39. ALT 44. Troponin negative times one. ProBNP 407. She is seen today in consultation on the regular medical floor. Currently sitting up in bed. Awake and alert. She has developed some hoarseness. She has some chest tightness and wheezing. She is maintaining O2 saturations at 90% on 4 L nasal cannula. He's been initiated on Symbicort, DuoNeb inhalations, IV Solu-Medrol. Continued on Singulair. Anticoagulated with Eliquis. The patient is seen today 02/08/2022 in follow-up on the regular medical floor. She is improved today compared to yesterday. A bit less bronchospastic and wheezy. She is still not quite back to her baseline. Dyspneic on exertion. Dyspneic with conversation. Anxious. She is maintaining good O2 saturations in the 90s on 3 L/m per nasal cannula. She's been afebrile. White count 5.3. Hemoglobin 10.1. Platelets 235. Sodium 136. Potassium 3.9. Bicarb 33. BUN 24. Creatinine 0.64. Glucose 138. Influenza, RSV and COVID-19 screen were all negative. Pro-calcitonin 0.11. She remains on Symbicort, DuoNeb inhalations, IV Solu-Medrol and Singulair. Anticoagulated with Eliquis. The patient is seen today 02/13/2022 in follow-up on the regular medical floor. She is status post bronchoscopy with BAL yesterday. Cultures are pending. She is feeling better today. Awake and alert in no acute distress. Maintaining O2 saturations in the 90s on 3 L/m per nasal cannula. She does have home oxygen. White count 10.9. Hemoglobin 10.1. Platelets 238. Sodium 141. Potassium 4.0. BUN 21. Creatinine 0.7. She's been afebrile. Hemodynamically stable. Continued on DuoNeb inhalations, Pulmicort and Perforomist inhalations, IV Solu- Medrol. She remains on Singulair, Tessalon Perles. Anticoagulated with Eliquis. The patient is seen today 02/14/2022 in follow-up on the regular medical floor. She is sitting up in bed. Awake and alert in no acute distress. She is maintaining good O2 saturations in the 90s on 3 L/m per nasal cannula. She is feeling nearly back to her baseline. Bronchial wash cultures are still pending. Pathology pending. White count 9.0. Hemoglobin 9.6. Platelets 211. Sodium 140. Potassium 3.9. BUN 21. Creatinine 0.8. Glucose 149. She is continued on DuoNeb inhalations, according Perforomist inhalations, prednisone, Tessalon Perles. Anticoagulated with Eliquis. Patient is seen today 02/15/2022 in follow-up on the regular medical floor. She is currently resting comfortably in bed. She is maintaining good O2 saturations in the 90s on 3 L/m per nasal cannula. White count 11.7. Hemoglobin 10.1. Sodium 140. Potassium 3.9. BUN 22. Creatinine 0.8. Bronchial wash cultures are pending. Cytology pending. She is continued on prednisone taper, bronchodilators. Anticoagulated with Eliquis. The patient is seen today 02/16/2022 in follow-up on the regular medical floor. She remains awake and alert. Resting comfortably in bed. Maintain O2 saturations in the 90s on 4 L/m per nasal cannula. She's been afebrile. Hemodynamically stable. Bronchial wash findings are positive for Corynebacterium striatum thus far. Suspect contaminant. White count 9.4. Hemoglobin 9.7. Platelets 175. Sodium 1:30. Potassium 3.9. BUN 17. Creatinine 0.7. She remains on DuoNeb inhalations, Pulmicort and Perforomist inhalations, prednisone taper. Anticoagulated with Eliquis. Objective - Vital Signs Vital signs: Vital Signs Temp 98.2 F 02/16/22 08:00 Pulse 84 02/16/22 12:29 Resp 18 02/16/22 12:29 BP 146/68 02/16/22 08:00 Pulse Ox 94 L 02/16/22 08:13 Intake & Output 02/15/22 02/16/22 02/16/22 18:59 06:59 18:59 Other: Voiding Method Toilet Toilet # Voids 5 4 # Bowel Movements 0 - Exam GENERAL EXAM: Alert, very pleasant 66-year-old female, on 4 L nasal cannula, comfortable in no apparent distress. HEAD: Normocephalic. EYES: Normal reaction of pupils, equal size. NOSE: Clear with pink turbinates. THROAT: No erythema or exudates. NECK: No masses, no JVD. CHEST: No chest wall deformity. LUNGS: Equal air entry with faint bilateral end expiratory wheeze. Diminished CVS: S1 and S2 normal with no audible murmur, regular rhythm. ABDOMEN: No hepatosplenomegaly, normal bowel sounds, no guarding or rigidity. SPINE: No scoliosis or deformity SKIN: No rashes CENTRAL NERVOUS SYSTEM: No focal deficits, tone is normal in all 4 extremities. EXTREMITIES: There is no peripheral edema. No clubbing, no cyanosis. Peripheral pulses are intact. - Labs CBC & Chem 7: 02/16/22 04:33 02/16/22 04:33 Labs: Abnormal Lab Results - Last 24 Hours (Table) 02/16/22 02/16/22 Range/Units 04:33 04:33 Hgb 9.7 L (12.0-15.0) g/dL Hct 33.2 L (37.2-46.3) % MCH 23.5 L (27.0-32.0) pg MCHC 29.2 L (32.0-37.0) g/dL RDW 17.2 H (11.5-14.5) % Immature Gran # 0.21 H (0.00-0.04) X 10*3/uL Lymphocytes # 0.79 L (0.90-5.00) X 10*3/uL Eosinophils # 0.02 L (0.04-0.35) X 10*3/uL Carbon Dioxide 29.5 H (20.0-27.5) mmol/L Anion Gap 8.40 L (10.00-18.00) mmol/L BUN/Creatinine Ratio 24.93 H (12.00-20.00) Ratio Calcium 8.3 L (8.7-10.3) mg/dL Microbiology - Last 24 Hours (Table) 02/12/22 14:16 Gram Stain - Final Bronchial Washings - Random Bronchial Washings Culture - Final Corynebacterium striatum Assessment and Plan Assessment: 1 Acute exacerbation of severe oxygen dependent chronic obstructive pulmonary disease with retained secretions. Status post bronchoscopy with BAL on 02/12/2022 2 History of COVID 19 pneumonia, with possible postinflammatory pulmonary fibrotic changes on chest x-ray. 3 History of atrial fibrillation. Currently in sinus rhythm. Anticoagulated with Eliquis. 4 History of CAD. 5 History of CVA. 6 History of gastroesophageal reflux disease. 7 Hyperlipidemia. 8 Myocardial infarction. 9 Status post clipping of a brain aneurysm, 2000. 10 Chronic hypoxemic respiratory failure. 11 Scoliosis. 12 CAD with previous stent placement. 13 Peripheral vascular disease Plan: The patient was seen and evaluated Home once cleared by medicine Complete a prednisone taper Follow-up in the office in 1-2 weeks' I have personally seen and examined the patient, performed the documentation and the assessment and plan as written. Number of minutes spent on the visit: 10.
[2022-02-16 15:38] VITALS: BP 131/73; RESP 14
[2022-02-16 16:40] VITALS: PULSE 79
== END 2022-02-16 19:26 | disposition home or self-care (01) | DRG 190 ==
LOC: EC 03:25 → 4SSUR 06:21
PROVIDERS: ADMIT Internal Medicine; ATTEND Internal Medicine
PROC: 0B9H8ZZ Drainage of Lung Lingula, Via Natural or Artificial Opening Endoscopic (ICD-10-PCS; principal; 2022-02-12 13:35)
PROC: 0BJ08ZZ Inspection of Tracheobronchial Tree, Via Natural or Artificial Opening Endoscopic (ICD-10-PCS; principal; 2022-02-12 13:35)
DX: J44.1 Chronic obstructive pulmonary disease with (acute) exacerbation (principal); J96.21 Acute and chronic respiratory failure with hypoxia; K92.0 Hematemesis; K21.9 Gastro-esophageal reflux disease without esophagitis; M41.9 Scoliosis, unspecified; Z20.822 Contact with and (suspected) exposure to COVID-19; Z28.310 Unvaccinated for COVID-19; Z86.16 Personal history of COVID-19; E78.5 Hyperlipidemia, unspecified; F32.A Depression, unspecified; F41.9 Anxiety disorder, unspecified; I25.2 Old myocardial infarction; I25.10 Atherosclerotic heart disease of native coronary artery without angina pectoris; I44.0 Atrioventricular block, first degree; I48.0 Paroxysmal atrial fibrillation; I50.9 Heart failure, unspecified; I16.0 Hypertensive urgency; Q24.9 Congenital malformation of heart, unspecified; I73.9 Peripheral vascular disease, unspecified; G89.29 Other chronic pain; M15.9 Polyosteoarthritis, unspecified; Z99.81 Dependence on supplemental oxygen; Z79.01 Long term (current) use of anticoagulants; Z79.51 Long term (current) use of inhaled steroids; Z79.899 Other long term (current) drug therapy; Z82.49 Family history of ischemic heart disease and other diseases of the circulatory system; Z83.3 Family history of diabetes mellitus; Z86.73 Personal history of transient ischemic attack (TIA), and cerebral infarction without residual deficits; Z87.01 Personal history of pneumonia (recurrent); Z95.5 Presence of coronary angioplasty implant and graft; Z87.891 Personal history of nicotine dependence; Z98.890 Other specified postprocedural states; Z98.51 Tubal ligation status; Z88.6 Allergy status to analgesic agent; Z88.1 Allergy status to other antibiotic agents; Z88.2 Allergy status to sulfonamides; Z86.79 Personal history of other diseases of the circulatory system; Z98.1 Arthrodesis status
CPT/HCPCS: 31624; 36415; 71045; 80048; 80053; 82607; 82747; 83540; 83550; 83605; 83880; 84145; 84484; 85025; 85379; 85610; 85730; 87070; 87102; 87116; 87205; 87206; 87252; 87496; 87498; 87502; 87529; 87634; 87636; 87798; 88108; 88305; 89050; 93005; 94640; 94667; 94668; 94760; 96374; 99285

== ENCOUNTER 2023-04-13 14:12 | Inpatient (IN) | payer MEDICARE, OTHER ==
[2023-04-13] MEDS ORDERED: IPRATROPIUM-ALBUTEROL 3 ML NEB INHALATION STA (14:37)
--- NOTE | 2023-04-13 14:40 | ED ---
General Adult HPI - General Chief complaint: Shortness of Breath Stated complaint: EMMANUEL Time Seen by Provider: 04/13/23 14:19 Source: patient, EMS, RN notes reviewed Mode of arrival: EMS Limitations: no limitations - History of Present Illness Initial comments: Patient is a pleasant 67-year-old female presenting to the emergency department with difficulty breathing. Onset of symptoms was just a couple days ago. Patient does have cough with occasional yellow sputum. Symptoms are similar to previous COPD. Patient did receive 1 nebulizer and slightly medical by EMS. Patient took 2 nebulizers on her own this morning. No leg pain or leg swelling. No chest pain or fever - Related Data Home Medications Medication Instructions Recorded Confirmed Famotidine [Pepcid] 20 mg PO BID 08/04/20 12/08/22 Amiodarone [Cordarone] 200 mg PO BID 02/27/21 12/08/22 Apixaban [Eliquis] 5 mg PO BID 02/27/21 12/08/22 Budesonide/Formoterol Fumarate 2 puff INHALATION RT-BID 02/27/21 12/08/22 [Symbicort 160-4.5 Mcg Inhaler] Montelukast [Singulair] 10 mg PO HS 02/27/21 12/08/22 Atorvastatin [Lipitor] 80 mg PO HS 02/06/22 12/08/22 Potassium Chloride [Klor-Con 10 ER] 10 meq PO DAILY 02/06/22 12/08/22 lisinopriL [Zestril] 5 mg PO DAILY 02/06/22 12/08/22 Albuterol Nebulized [Ventolin 2.5 mg INHALATION RT-QID 12/08/22 12/08/22 Nebulized] Ibuprofen [Motrin Ib] 600 mg PO Q6H PRN 12/08/22 12/08/22 Previous Rx's Medication Instructions Recorded Cephalexin [Keflex] 500 mg PO Q8HR 10 Days #30 cap 12/12/22 Colchicine [Colcrys] 0.6 mg PO DAILY 30 Days #30 each 12/12/22 HYDROcodone/APAP 5-325MG [[place] 1 each PO Q6HR PRN #6 tab 12/12/22 5-325] amLODIPine [Norvasc] 5 mg PO DAILY 30 Days #30 tab 12/12/22 HYDROcodone/APAP 5-325MG [[place] 1 tab PO Q6HR PRN 3 Days #12 tab 02/27/23 5-325] Allergies Allergy/AdvReac Type Severity Reaction Status Date / Time naproxen [From Naprosyn] Allergy Anaphylaxis Verified 04/13/23 14:27 Sulfa (Sulfonamide Allergy Anaphylaxis Verified 04/13/23 14:27 Antibiotics) azithromycin [From Zithromax] AdvReac does not Verified 04/13/23 14:27 take due to A-Fib Review of Systems ROS Statement: Those systems with pertinent positive or pertinent negative responses have been documented in the HPI. ROS Other: All systems not noted in ROS Statement are negative. Constitutional: Denies: fever Eyes: Denies: eye pain ENT: Denies: ear pain Respiratory: Reports: as per HPI, cough, dyspnea Cardiovascular: Denies: chest pain Endocrine: Denies: fatigue Gastrointestinal: Denies: abdominal pain Genitourinary: Denies: dysuria Musculoskeletal: Denies: back pain Skin: Denies: rash Neurological: Denies: weakness Past Medical History Past Medical History: Atrial Fibrillation, Asthma, Coronary Artery Disease (CAD), COPD, CVA/TIA, GERD/Reflux, Hyperlipidemia, Myocardial Infarction (SD), Osteoarthritis (OA), Vascular Disorder Additional Past Medical History / Comment(s): Pt tested covid + 01/30/21 [facility] ER. Pt recently admitted to [facility] on 01/08/21 with acute on chronic respiratory failure/tracheobronchitis severe or bronchopneumonia. 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 Last Myocardial Infarction Date:: 10/19/2019 History of Any Multi-Drug Resistant Organisms: None Reported Past Surgical History: Heart Catheterization With Stent, Orthopedic Surgery, Tubal Ligation Additional Past Surgical History / Comment(s): 2019 PCI/stent R PDA, 2000 angiogram/brain aneurysum that is clipped, abdominal aortogram with R common iliac artery PTBA/stent, left shoulder rotator cuff repair, spine lumbar disc 3x fused Past Anesthesia/Blood Transfusion Reactions: No Reported Reaction Date of Last Stent Placement:: 10/19/19 Past Psychological History: Anxiety, Depression Smoking Status: Former smoker Past Alcohol Use History: None Reported Past Drug Use History: None Reported - Past Family History Father Family Medical History: Coronary Artery Disease (CAD), Diabetes Mellitus Additional Family Medical History / Comment(s): Father had 3 vessel CABG. He at the age of 69 from heart disease. Mother Family Medical History: Myocardial Infarction (SD) Additional Family Medical History / Comment(s): Mother of a SD at the age of 42 yrs. General Exam Limitations: no limitations General appearance: alert, in no apparent distress Head exam: Present: normocephalic Eye exam: Present: normal appearance Neck exam: Present: normal inspection Respiratory exam: Present: wheezes, decreased breath sounds Cardiovascular Exam: Present: regular rate, normal rhythm GI/Abdominal exam: Present: soft. Absent: tenderness Extremities exam: Present: normal inspection. Absent: pedal edema, calf tenderness Neurological exam: Present: alert Psychiatric exam: Present: normal affect, normal mood Skin exam: Present: normal color Course Vital Signs 04/13/23 04/13/23 04/13/23 14:21 15:42 15:47 Temperature 99.2 F Pulse Rate 82 68 70 Respiratory 26 H Rate Blood Pressure 156/127 O2 Sat by Pulse 98 Oximetry 04/13/23 16:08 Temperature Pulse Rate 66 Respiratory 16 Rate Blood Pressure 153/55 O2 Sat by Pulse 97 Oximetry EKG Findings - EKG Results: EKG: interpreted by MONTEZD (First-degree AV block with a NH of 227. Q waves V1 and V2.), sinus rhythm, normal axis, normal ST/T Medical Decision Making - Medical Decision Making Was pt. sent in by a medical professional or institution (, PA, SHOT CORE DRILL OPERATOR HELPER, urgent care, hospital, or [facility]...) When possible be specific @ -No Did you speak to anyone other than the patient for history (EMS, parent, family, police, friend...)? What history was obtained from this source @ -No Did you review nursing and triage notes (agree or disagree)? Why? @ -I reviewed and agree with nursing and triage notes Were old charts reviewed (outside hosp., previous admission, EMS record, old EKG, old radiological studies, urgent care reports/EKG's, [facility] records)? Report findings @ -No old charts were reviewed Differential Diagnosis (chest pain, altered mental status, abdominal pain women, abdominal pain men, vaginal bleeding, weakness, fever, dyspnea, syncope, headache, dizziness, GI bleed, back pain, seizure, CVA, palpatations, mental health)? @ -Differential Dyspnea: Coronary syndrome, arrhythmia, tamponade, asthma, COPD, pulmonary embolism, pneumonia, pneumothorax, pulmonary effusion, anaphylaxis, diabetic ketoacidosis, flailed chest, pulmonary contusion, diaphragmatic rupture, anemia, neuromuscular, this is not meant to be an all-inclusive list. EKG interpreted by me (3pts min.). @ -As above X-rays interpreted by me (1pt min.). @ -Chest x-ray shows no acute process CT interpreted by me (1pt min.). @ -None done U/S interpreted by me (1pt. min.). @ -None done What testing was considered but not performed or refused? (CT, X-rays, U/S, la bs)? Why? @ -None What meds were considered but not given or refused? Why? @ -None Did you discuss the management of the patient with other professionals (professionals i.e. , PA, SHOT CORE DRILL OPERATOR HELPER, lab, RT, psych nurse, social and political studies professor, security incident handler, teacher, safety patrol officer, senior case manager)? Give summary @ -Case was discussed with Dr. Alfaro, who will admit covered Dr. Juárez Was smoking cessation discussed for >3mins.? @ -No Was critical care preformed (if so, how long)? @ -No Were there social determinants of health that impacted care today? How? (Homelessness, low income, unemployed, alcoholism, drug addiction, transportatio n, low edu. Level, literacy, decrease access to med. care, nursing home, rehab)? @ -No Was there de-escalation of care discussed even if they declined (Discuss DNR or withdrawal of care, Hospice)? DNR status @ -No What co-morbidities impacted this encounter? (DM, HTN, Smoking, COPD, CAD, Cancer, CVA, ARF, Chemo, Hep., AIDS, mental health diagnosis, sleep apnea, morbid obesity)? @ -None Was patient admitted / discharged? Hospital course, mention meds given and route, prescriptions, significant lab abnormalities, going to OR and other pertinent info. @ -Patient reevaluated and feels slightly better. Patient updated on results and plan. Case discussed with Dr. Alfaro who will admit covering Dr. Juárez. Patient will be admitted for COPD. Patient states she does see Dr. Slade. Undiagnosed new problem with uncertain prognosis? @ -No Drug Therapy requiring intensive monitoring for toxicity (Heparin, Nitro, Ins ulin, Cardizem)? @ -No Were any procedures done? @ -No Diagnosis/symptom? @ -COPD exacerbation Acute, or Chronic, or Acute on Chronic? @ -Acute Uncomplicated (without systemic symptoms) or Complicated (systemic symptoms)? @ - Side effects of treatment? @ -No Exacerbation, Progression, or Severe Exacerbation? @ -Exacerbation Poses a threat to life or bodily function? How? (Chest pain, [place], SD, pneumonia, PE, COPD, DKA, ARF, appy, cholecystitis, CVA, Diverticulitis, Homicidal, Suicidal, threat to staff... and all critical care pts) @ -No - Lab Data Result diagrams: 04/13/23 15:22 04/13/23 15:22 Lab Results 04/13/23 04/13/23 04/13/23 Range/Units 15:22 15:22 15:22 WBC 6.3 (3.8-10.6) k/uL RBC 4.12 (3.80-5.40) m/uL Hgb 11.0 L (11.4-16.0) gm/dL Hct 35.3 (34.0-46.0) % MCV 85.6 (80.0-100.0) fL MCH 26.7 (25.0-35.0) pg MCHC 31.2 (31.0-37.0) g/dL RDW 15.9 H (11.5-15.5) % Plt Count 182 (150-450) k/uL MPV 8.0 Neutrophils % 73 % Lymphocytes % 10 % Monocytes % 4 % Eosinophils % 11 % Basophils % 1 % Neutrophils # 4.6 (1.3-7.7) k/uL Lymphocytes # 0.7 L (1.0-4.8) k/uL Monocytes # 0.2 (0-1.0) k/uL Eosinophils # 0.7 (0-0.7) k/uL Basophils # 0.0 (0-0.2) k/uL Hypochromasia Moderate PT 10.9 (9.0-12.0) sec INR 1.0 (<1.2) APTT 23.7 (22.0-30.0) sec VBG pH (7.31-7.41) VBG pCO2 (37-51) mmHg VBG HCO3 (24-28) mmol/L Sodium 139 (137-145) mmol/L Potassium 4.3 (3.5-5.1) mmol/L Chloride 102 (98-107) mmol/L Carbon Dioxide 33 H (22-30) mmol/L Anion Gap 4 mmol/L BUN 17 (7-17) mg/dL Creatinine 0.62 (0.52-1.04) mg/dL Est GFR (CKD-EPI)AfAm >90 (>60 ml/min/1.73 sqM) Est GFR (CKD-EPI)NonAf >90 (>60 ml/min/1.73 sqM) Glucose 96 (74-99) mg/dL Plasma Lactic Acid Jack (0.7-2.0) mmol/L Calcium 8.6 (8.4-10.2) mg/dL Magnesium 1.9 (1.6-2.3) mg/dL Total Bilirubin 0.4 (0.2-1.3) mg/dL AST 85 H (14-36) U/L ALT 113 H (4-34) U/L Alkaline Phosphatase 47 (38-126) U/L Troponin I (0.000-0.034) ng/mL Total Protein 5.9 L (6.3-8.2) g/dL Albumin 3.2 L (3.5-5.0) g/dL 04/13/23 04/13/23 04/13/23 Range/Units 15:22 15:22 16:08 WBC (3.8-10.6) k/uL RBC (3.80-5.40) m/uL Hgb (11.4-16.0) gm/dL Hct (34.0-46.0) % MCV (80.0-100.0) fL MCH (25.0-35.0) pg MCHC (31.0-37.0) g/dL RDW (11.5-15.5) % Plt Count (150-450) k/uL MPV Neutrophils % % Lymphocytes % % Monocytes % % Eosinophils % % Basophils % % Neutrophils # (1.3-7.7) k/uL Lymphocytes # (1.0-4.8) k/uL Monocytes # (0-1.0) k/uL Eosinophils # (0-0.7) k/uL Basophils # (0-0.2) k/uL Hypochromasia PT (9.0-12.0) sec INR (<1.2) APTT (22.0-30.0) sec VBG pH 7.41 (7.31-7.41) VBG pCO2 49 (37-51) mmHg VBG HCO3 30 H (24-28) mmol/L Sodium (137-145) mmol/L Potassium (3.5-5.1) mmol/L Chloride (98-107) mmol/L Carbon Dioxide (22-30) mmol/L Anion Gap mmol/L BUN (7-17) mg/dL Creatinine (0.52-1.04) mg/dL Est GFR (CKD-EPI)AfAm (>60 ml/min/1.73 sqM) Est GFR (CKD-EPI)NonAf (>60 ml/min/1.73 sqM) Glucose (74-99) mg/dL Plasma Lactic Acid Jack 0.9 (0.7-2.0) mmol/L Calcium (8.4-10.2) mg/dL Magnesium (1.6-2.3) mg/dL Total Bilirubin (0.2-1.3) mg/dL AST (14-36) U/L ALT (4-34) U/L Alkaline Phosphatase (38-126) U/L Troponin I <0.012 (0.000-0.034) ng/mL Total Protein (6.3-8.2) g/dL Albumin (3.5-5.0) g/dL Disposition Clinical Impression: COPD (chronic obstructive pulmonary disease) Disposition: ADMITTED IP TO THIS HOSP Is patient prescribed a controlled substance at d/c from ED?: No Referrals: Tello Juárez MD [Primary Care Provider] - 1-2 days Time of Disposition: 17:05
[2023-04-13 15:31] LABS: Basophils % (A) 1 %; Eosinophils # (A) 0.7 k/uL (0-0.7); Eosinophils % (A) 11 %; HCT 35.3 % (34.0-46.0); Hypochromasia Moderate; Lymphocytes # (A) 0.7 k/uL (1.0-4.8); Lymphocytes % (A) 10 %; MCH 26.7 pg (25.0-35.0); MCHC 31.2 g/dL (31.0-37.0); MCV 85.6 fL (80.0-100.0); Monocytes # (A) 0.2 k/uL (0-1.0); Monocytes % (A) 4 %; Neutrophils # (A) 4.6 k/uL (1.3-7.7); Neutrophils % (A) 73 %; Platelet Count 182 k/uL (150-450); RBC 4.12 m/uL (3.80-5.40); RDW 15.9 % (11.5-15.5); WBC 6.3 k/uL (3.8-10.6)
[2023-04-13 15:45] LABS: Partial Thromboplastin Time 23.7 sec (22.0-30.0); Prothrombin Time 10.9 sec (9.0-12.0)
[2023-04-13 15:53] LABS: ALT 113 U/L (4-34); AST 85 U/L (14-36); African American GFR (CKD) >90 (>60 ml/min/1.73 sqM); Albumin 3.2 g/dL (3.5-5.0); Alkaline Phosphatase 47 U/L (38-126); Anion Gap 4 mmol/L; Blood Urea Nitrogen 17 mg/dL (7-17); Calcium 8.6 mg/dL (8.4-10.2); Carbon Dioxide 33 mmol/L (22-30); Chloride 102 mmol/L (98-107); Glucose 96 mg/dL (74-99); Magnesium 1.9 mg/dL (1.6-2.3); Non-African American GFR(CKD) >90 (>60 ml/min/1.73 sqM); Potassium 4.3 mmol/L (3.5-5.1); Sodium 139 mmol/L (137-145); Total Bilirubin 0.4 mg/dL (0.2-1.3); Total Protein 5.9 g/dL (6.3-8.2)
[2023-04-13 16:24] LABS: VBG PH 7.41 (7.31-7.41)
--- NOTE | 2023-04-13 16:36 | XR ---
EXAMINATION TYPE: XR chest 2V DATE OF EXAM: 04/13/2023 4:20 PM COMPARISON: Chest radiographs from 02/06/2022 TECHNIQUE: XR chest 2V Frontal and lateral views of the chest. CLINICAL INDICATION:Female, 67 years old with history of difficulty breathing; FINDINGS: Lungs/Pleura: Prominent interstitial lung markings are seen scattered throughout the lungs. No eviden ce of focal consolidation, pneumothorax or pleural effusion. Pulmonary vascularity: Unremarkable. Heart/mediastinum: Cardiomediastinal silhouette is unremarkable. Atherosclerotic calcifications are seen in the aorta. Musculoskeletal: No acute osseous pathology. IMPRESSION: Chronic changes without acute pulmonary process. No significant change from prior.
[2023-04-13] MEDS ORDERED: ACETAMINOPHEN TAB 325 MG TAB PO PRN (17:05)
[2023-04-13] MEDS ORDERED: NALOXONE 0.4 MG/ML 1 ML VIAL IVP PRN (17:05)
[2023-04-13] MEDS: methylPREDNISolone SOD SUCCI 125 MG/2 ML VIAL IV SCH ×2 (18:30→23:37)
[2023-04-13] MEDS: IPRATROPIUM-ALBUTEROL 3 ML NEB INHALATION SCH ×2 (20:15→22:31)
[2023-04-13] MEDS: SYMBICORT 160-4.5 MCG INHALER INHALATION SCH (20:15)
--- NOTE | 2023-04-13 22:28 | HP ---
HISTORY AND PHYSICAL CHIEF COMPLAINT: Shortness of breath. HISTORY OF PRESENT ILLNESS: This is a 67-year-old woman with a past medical history of multiple medical problems including COPD, was complaining of increasing shortness of breath for the last 2 days. The patient had occasionally yellow sputum also. The patient took 2 nebulizers without any improvement and the patient came to [facility]. The patient's short of breath after treatment is slightly feeling better. The chest x-ray is not available. There is no history of any fever, rigors, or chills. PAST MEDICAL HISTORY: Reviewed, include COPD, asthma, atrial fibrillation. The rest of the history and rest of the chart is also reviewed. HOME MEDICATIONS: Reviewed include Zestril. Dose and rest of medications reviewed. Not confirmed yet. ALLERGIES: Include Naprosyn. FAMILY HISTORY: History of CAD, diabetes. SOCIAL HISTORY: Previous history of smoking. No history of current smoking or alcohol. REVIEW OF SYSTEMS: A 14-point review is negative except as mentioned earlier. PHYSICAL EXAMINATION: VITAL SIGNS: Pulse 66, blood pressure 153/58, respirations 16. HEENT: Conjunctivae normal. NECK: No jugular venous distention. CARDIOVASCULAR: S1, S2. RESPIRATIONS: Bilateral scattered rhonchi and crackles. Expiratory wheezing. ABDOMEN: Soft, nontender. LEGS: No edema. NERVOUS SYSTEM: Nonfocal. SKIN: No ulcer, rash, bleeding. JOINTS: No active deforming arthropathy. LABORATORY DATA: Noted. ASSESSMENT: 1. Chronic obstructive pulmonary disease acute exacerbation with acute PURULENT TRACHEO bronchitis. 2. History of asthma. 3. History of cerebrovascular accident, transient ischemic attack. 4. Hypertension. 5. History of atrial fibrillation. 6. Multiple medical issues. RECOMMENDATIONS AND DISCUSSION: In this 67-year-old woman who presented with multiple complex medical issues, we will monitor the patient closely, continue the current medications, continue symptomatic treatment. Continue the bronchodilators. We will check for COVID also. Otherwise, we will consult Dr. Artis for continued management. Prognosis guarded. Further recommendations to follow. See orders for further details. Home medications will be continued once they are confirmed. MMODL / IJN: [id number] / MTDD
[2023-04-13] MEDS: lisinopriL 5 MG TAB PO SCH (23:37)
[2023-04-13] MEDS: APIXABAN 5 MG TAB PO SCH (23:37)
[2023-04-13] MEDS: ATORVASTATIN 80 MG TAB PO SCH (23:37)
[2023-04-13] MEDS: FAMOTIDINE 20 MG TAB PO SCH (23:37)
[2023-04-13] MEDS: MONTELUKAST 10 MG TAB PO SCH (23:37)
[2023-04-13] MEDS: AMIODARONE 200 MG TAB PO SCH (23:37)
[2023-04-14] MEDS ORDERED: SODIUM CHLORIDE 0.9% 500 ML 500 ML IV ONE (00:46)
--- NOTE | 2023-04-14 03:05 | P.CNPUL ---
History of Present Illness Consult date: 04/14/23 Requesting physician: Ghassan Bhatti Reason for consult: COPD Chief complaint: Shortness of breath History of present illness: I am seeing this patient in new consultation today 04/14/2023 for a COPD exacerbation. Patient is a 67-year-old female with past medical history significant for severe oxygen dependent COPD with an FEV1 40% of predicted, atrial fibrillation anticoagulated with Eliquis, hypertension, hyperlipidemia, coronary artery disease with prior stent placement, CVA, brain aneurysms with previous clipping, GERD, and scoliosis. She does follow in the office for management of her severe COPD which she takes Symbicort inhaler and albuterol nebulizations. Her primary care provider is Dr. Juárez. Patient came to the emergency room yesterday afternoon complaining of shortness of breath and wheezing for the last 2 days. She also reports an associated cough with initially yellow sputum production, which is now clear. She denies any fever, chills, chest pain, hemoptysis. Denies sick contacts or recent travel. Patient is currently sitting up in bed, on 3 L nasal cannula, in no acute distress. She does utilize 3 L/m nasal cannula at home. She states that her breathing has improved since her admission. She is still quite bronchospastic on examination. Chest x-ray on arrival shows chronic COPD-like changes without any acute cardiopulmonary process. CBC and BMP on arrival were unremarkable. Patient does have some mild LFT elevation. Troponins were negative 1. Negative for influenza, RSV, COVID-19. Currently on empiric Rocephin. She is afebrile. Vital signs are stable. Review of Systems REVIEW OF SYSTEMS: CONSTITUTIONAL: Denies any recent significant weight loss or weight gain. EYES: Denies change in vision. EARS, NOSE, MOUTH, THROAT: Denies headaches, denies sore throat. CARDIOVASCULAR: Denies chest pain, palpitations or syncopal episodes. RESPIRATORY: See HPI GASTROINTESTINAL: Denies change in appetite, abdominal pain, nausea and vomiting, or diarrhea GENITOURINARY: Denies hematuria, denies infections. MUSKULOSKELETAL: Denies pain, denies swelling. INTEGUMENTARY: Denies rash, denies eczema. NEUROLOGICAL: Denies recent memory loss, no recent seizure activity. PSYCHIATRIC: Denies anxiety, denies depression. HEMATOLOGIC/LYMPHATIC: Denies anemia, denies enlarged lymph node Past Medical History Past Medical History: Atrial Fibrillation, Asthma, Coronary Artery Disease (CAD), COPD, CVA/TIA, GERD/Reflux, Hyperlipidemia, Myocardial Infarction ([place]), Osteoarthritis (OA), Vascular Disorder Additional Past Medical History / Comment(s): Pt tested covid + 01/30/21 [facility] ER. Pt recently admitted to [facility] on 01/08/21 with acute on chronic respiratory failure/tracheobronchitis severe or bronchopneumonia. 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 Last Myocardial Infarction Date:: 10/19/2019 History of Any Multi-Drug Resistant Organisms: None Reported Past Surgical History: Heart Catheterization With Stent, Orthopedic Surgery, Tubal Ligation Additional Past Surgical History / Comment(s): 2019 PCI/stent R PDA, 2000 angiog concepcion/brain aneurysum that is clipped, abdominal aortogram with R common iliac artery PTBA/stent, left shoulder rotator cuff repair, spine lumbar disc 3x fused Past Anesthesia/Blood Transfusion Reactions: No Reported Reaction Date of Last Stent Placement:: 10/19/19 Past Psychological History: Anxiety, Depression Additional Psychological History / Comment(s): Pt resides alone. She has oxygen and a nebulizer. She does not drive, she uses a cab to get places. Smoking Status: Former smoker Past Alcohol Use History: None Reported Additional Past Alcohol Use History / Comment(s): Pt started smoking in 1975 and has quit august 2021 Past Drug Use History: None Reported - Past Family History Father Family Medical History: Coronary Artery Disease (CAD), Diabetes Mellitus Additional Family Medical History / Comment(s): Father had 3 vessel CABG. He at the age of 69 from heart disease. Mother Family Medical History: Myocardial Infarction (AK) Additional Family Medical History / Comment(s): Mother of a [place] at the age of 42 yrs. Medications and Allergies Home Medications Medication Instructions Recorded Confirmed Type Famotidine [Pepcid] 20 mg PO BID 08/04/20 04/13/23 History Amiodarone [Cordarone] 200 mg PO BID 02/27/21 04/13/23 History Apixaban [Eliquis] 5 mg PO BID 02/27/21 04/13/23 History Budesonide/Formoterol Fumarate 2 puff INHALATION RT-BID 02/27/21 04/13/23 History [Symbicort 160-4.5 Mcg Inhaler] Montelukast [Singulair] 10 mg PO HS 02/27/21 04/13/23 History Atorvastatin [Lipitor] 80 mg PO HS 02/06/22 04/13/23 History Potassium Chloride [Klor-Con 10 ER] 10 meq PO DAILY 02/06/22 04/13/23 History lisinopriL [Zestril] 5 mg PO HS 02/06/22 04/13/23 History Albuterol Nebulized [Ventolin 2.5 mg INHALATION RT-QID 12/08/22 04/13/23 History Nebulized] Allergies Allergy/AdvReac Type Severity Reaction Status Date / Time naproxen [From Naprosyn] Allergy Anaphylaxis Verified 04/13/23 17:55 Sulfa (Sulfonamide Allergy Anaphylaxis Verified 04/13/23 17:55 Antibiotics) azithromycin [From Zithromax] AdvReac does not Verified 04/13/23 17:55 take due to A-Fib Physical Exam Vitals: Vital Signs Temp Pulse Pulse Resp BP BP Pulse Ox 04/13/23 22:42 76 04/13/23 22:39 67 18 04/13/23 22:32 74 04/13/23 20:28 72 04/13/23 20:16 67 04/13/23 18:14 98.1 F 67 16 151/71 98 04/13/23 17:30 99.1 F 67 20 155/53 98 04/13/23 17:01 66 18 98 04/13/23 16:08 66 16 153/55 97 04/13/23 15:47 70 04/13/23 15:42 68 04/13/23 14:21 99.2 F 82 26 H 156/127 98 Intake and Output 04/13/23 04/13/23 04/14/23 14:59 22:59 06:59 Other: Voiding Method Bedside Commode # Voids 1 Weight 79.379 kg 79.379 kg GENERAL EXAM: Alert, 67-year-old white female, comfortable in no apparent distress. HEAD: Normocephalic and atraumatic EYES: Normal reaction of pupils, equal size. NOSE: Clear with pink turbinates. THROAT: No erythema or exudates. NECK: No masses, no JVD. CHEST: No chest wall deformity. LUNGS: Equal air entry with expiratory wheezes heard throughout. no crackles, rhonchi or dullness. On 3 L nasal cannula. No conversational dyspnea or accessory muscle use.. CVS: S1 and S2 normal with no audible murmur, regular rhythm. No extra heart sounds ABDOMEN: No hepatosplenomegaly, active bowel sounds, no guarding or rigidity. SPINE: No scoliosis or deformity SKIN: No rashes CENTRAL NERVOUS SYSTEM: No focal deficits, tone is normal in all 4 extremities. EXTREMITIES: There is no peripheral edema, clubbing, or cyanosis. Peripheral pulses are intact. Results - Laboratory Findings CBC and BMP: 04/13/23 15:22 04/13/23 15:22 PT/INR, D-dimer PT 10.9 sec (9.0-12.0) 04/13/23 15: INR 1.0 (<1.2) 04/13/23 15:22 Abnormal lab findings: Abnormal Labs 04/13/23 04/13/23 04/13/23 15:22 15:22 16:08 Hgb 11.0 L RDW 15.9 H Lymphocytes # 0.7 L VBG HCO3 30 H Carbon Dioxide 33 H AST 85 H ALT 113 H Total Protein 5.9 L Albumin 3.2 L - Diagnostic Findings Chest x-ray: image reviewed Assessment and Plan Assessment: Acute COPD exacerbation. Chest x-ray on arrival shows no acute cardiopulmonary process or evidence of pneumonia. Negative for influenza, RSV, COVID-19. Chronic hypoxemic respiratory failure, currently on 3 L/m nasal cannula History of atrial fibrillation, currently anticoagulated on Eliquis, in normal sinus rhythm. Essential hypertension Hyperlipidemia Coronary artery disease, with prior stent placement History of CVA/TIA History of brain aneurysm status post clipping GERD without esophagitis Scoliosis Plan: Patient's medications, labs, chest x-ray reviewed Continue supplemental oxygen Continue empiric antibiotics for now, check procalcitonin level Start the patient on a combination of bronchodilators, Symbicort inhaler, IV Solu-Medrol Resume home medications We will continue to follow I have personally seen and examined the patient, performed the documentation and the assessment and plan as written. Number of minutes spent on the visit:20 Joint evaluation that was done along with the nurse practitioner. The patient is known to have severe COPD with an FEV1 of 40% of predicted hospital for an acute COPD exacerbation. She remains short of breath bronchospastic and wheezy and will continue the same combination of oxygen therapy, IV Solu-Medrol and the blood treatments [id number]. Chest x-ray is free of any acute pulmonary infiltrates. The vital screening was negative. We'll continue to follow. No altered mentation. Home medications have been resumed.no smoking for 3 year. Evaluation was done in > 30 min Time with Patient: Greater than 30
[2023-04-14] MEDS: methylPREDNISolone SOD SUCCI 125 MG/2 ML VIAL IV SCH ×3 (06:16→18:19)
[2023-04-14] MEDS ORDERED: PANTOPRAZOLE 40 MG TABLET PO SCH (07:30)
[2023-04-14] MEDS ORDERED: SYMBICORT 160-4.5 MCG INHALER INHALATION SCH (08:00)
[2023-04-14] MEDS: IPRATROPIUM-ALBUTEROL 3 ML NEB INHALATION SCH ×4 (08:35→20:37)
[2023-04-14] MEDS: ALBUTEROL NEBULIZED 2.5 MG/3 ML INHALATION SCH ×4 (08:36→19:48)
[2023-04-14] MEDS: SYMBICORT 160-4.5 MCG INHALER INHALATION SCH (08:36)
[2023-04-14] MEDS: APIXABAN 5 MG TAB PO SCH ×2 (09:00→21:05)
[2023-04-14] MEDS: POTASSIUM CHLORIDE ER 10 MEQ TAB.ER.PRT PO SCH (09:00)
[2023-04-14] MEDS: AMIODARONE 200 MG TAB PO SCH ×2 (09:00→21:06)
[2023-04-14] MEDS: FAMOTIDINE 20 MG TAB PO SCH ×2 (09:00→21:06)
--- NOTE | 2023-04-14 11:07 | PN ---
PROGRESS NOTE DATE OF SERVICE: 04/14/2023 SUBJECTIVE: This 67-year-old woman was admitted with COPD exacerbation. She still has significant shortness of breath. No chest pain. No palpitations. No fever. PHYSICAL EXAMINATION: VITAL SIGNS: Pulse 76, blood pressure 114/67, respirations 16. CHEST: Bilateral scattered rhonchi with expiratory wheezing. CARDIOVASCULAR: S1, S2. ABDOMEN: Soft. NERVOUS SYSTEM: Nonfocal. LABORATORY DATA: Reviewed. ASSESSMENT: 1. Chronic obstructive pulmonary disease, acute exacerbation with acute purulent tracheobronchitis. 2. History of asthma. 3. History of cerebrovascular accident and transient ischemic attack. 4. Hypertension. 5. History of atrial fibrillation. 6. Multiple medical issues. RECOMMENDATIONS: Recommend to continue current management and treatment. Otherwise at this time, I will recommend initiating Pulmicort. Pulmonary consultation. Prognosis is guarded because of multiple complex medical issues. Further recommendations to follow. MMODL / IJN: [id number] /
[2023-04-14] MEDS ORDERED: DEXTROSE 50% SYRINGE 50 ML IVP PRN ×2 (14:08)
[2023-04-14] MEDS: ALBUTEROL NEBULIZED 2.5 MG/3 ML INHALATION PRN ×2 (15:56→22:50)
[2023-04-14 17:23] LABS: Glucose,Whole Blood 166 mg/dL (70-110)
[2023-04-14] MEDS: INSULIN ASPART (NovoLOG) 100 UNIT/ML VIAL SQ SCH ×2 (18:09→21:06)
[2023-04-14] MEDS: FORMOTEROL FUMARATE 20 MCG/2 ML NEBU INHALATION SCH (19:48)
[2023-04-14] MEDS: BUDESONIDE 1 MG/2 ML NEBU INHALATION SCH (19:48)
[2023-04-14 20:37] LABS: Glucose,Whole Blood 153 mg/dL (70-110)
[2023-04-14] MEDS: MONTELUKAST 10 MG TAB PO SCH (21:05)
[2023-04-14] MEDS: ATORVASTATIN 80 MG TAB PO SCH (21:05)
[2023-04-14] MEDS: lisinopriL 5 MG TAB PO SCH (21:06)
[2023-04-15] MEDS: ALBUTEROL NEBULIZED 2.5 MG/3 ML INHALATION PRN (03:18)
[2023-04-15] MEDS: methylPREDNISolone SOD SUCCI 125 MG/2 ML VIAL IV SCH ×5 (06:02→23:50)
[2023-04-15 06:09] LABS: Glucose,Whole Blood 142 mg/dL (70-110)
[2023-04-15] MEDS: INSULIN ASPART (NovoLOG) 100 UNIT/ML VIAL SQ SCH ×4 (06:13→21:08)
[2023-04-15] MEDS: ALBUTEROL NEBULIZED 2.5 MG/3 ML INHALATION SCH ×4 (08:06→19:52)
[2023-04-15] MEDS: BUDESONIDE 1 MG/2 ML NEBU INHALATION SCH (08:07)
[2023-04-15] MEDS: FORMOTEROL FUMARATE 20 MCG/2 ML NEBU INHALATION SCH (08:08)
[2023-04-15] MEDS: APIXABAN 5 MG TAB PO SCH ×2 (08:14→21:03)
[2023-04-15] MEDS: AMIODARONE 200 MG TAB PO SCH ×2 (08:14→21:04)
[2023-04-15] MEDS: POTASSIUM CHLORIDE ER 10 MEQ TAB.ER.PRT PO SCH (08:14)
[2023-04-15] MEDS: FAMOTIDINE 20 MG TAB PO SCH ×2 (08:15→21:03)
[2023-04-15 12:19] LABS: Glucose,Whole Blood 133 mg/dL (70-110)
--- NOTE | 2023-04-15 13:10 | PN ---
PROGRESS NOTE DATE OF SERVICE: 04/15/2023 SUBJECTIVE: This is a 67-year-old woman who was admitted with significant COPD exacerbation, is being closely monitored. The patient is extremely short of breath. The patient is able to bring up some sputum, but the patient is probably unable to tolerate Perforomist. OBJECTIVE: VITAL SIGNS: Pulse is 76, blood pressure 130/82, respirations 18. CHEST: Bilateral scattered rhonchi. Expiratory wheezing. CARDIOVASCULAR: S1, S2 normal. ABDOMEN: Soft. LABORATORY DATA: Reviewed. ASSESSMENT: 1. Chronic obstructive pulmonary disease acute exacerbation with acute purulent tracheobronchitis. 2. History of asthma. 3. History of cerebrovascular accident and transient ischemic attack. 4. Hypertension. 5. History of atrial fibrillation. 6. Multiple medical issues. RECOMMENDATIONS: Recommend to continue current medications, continue symptomatic treatment. Otherwise, repeat labs. Continue with Pulmicort and further recommendations to follow. MMODL / IJN: [id number] /
[2023-04-15] MEDS: ALPRAZolam 0.25 MG TAB PO PRN (16:41)
--- NOTE | 2023-04-15 17:04 | P.PN ---
Subjective Progress Note Date: 04/15/23 I am seeing this patient in new consultation today 04/14/2023 for a COPD exacerbation. Patient is a 67-year-old female with past medical history significant for severe oxygen dependent COPD with an FEV1 40% of predicted, atrial fibrillation anticoagulated with Eliquis, hypertension, hyperlipidemia, coronary artery disease with prior stent placement, CVA, brain aneurysms with previous clipping, GERD, and scoliosis. She does follow in the office for management of her severe COPD which she takes Symbicort inhaler and albuterol nebulizations. Her primary care provider is Dr. Juárez. Patient came to the emergency room yesterday afternoon complaining of shortness of breath and wheezing for the last 2 days. She also reports an associated cough with initially yellow sputum production, which is now clear. She denies any fever, chills, chest pain, hemoptysis. Denies sick contacts or recent travel. Patient is currently sitting up in bed, on 3 L nasal cannula, in no acute distress. She does utilize 3 L/m nasal cannula at home. She states that her breathing has improved since her admission. She is still quite bronchospastic on examination. Chest x-ray on arrival shows chronic COPD-like changes without any acute cardiopulmonary process. CBC and BMP on arrival were unremarkable. Patient does have some mild LFT elevation. Troponins were negative 1. Negative for influenza, RSV, COVID-19. Currently on empiric Rocephin. She is afebrile. Vital signs are stable. On today's evaluation of 07/26/2023, the patient remains bronchospastic wheezing and shortness of breath. Limited improvement since yesterday. She did experience some side effects to Perforomist and based on a combination Perforomist and Pulmicort will be discontinued and the patient will be started on Symbicort as maintenance. Otherwise, no new complaints for now. She'll be continued on albuterol neb treatments [id number] and IV Solu-Medrol. As mentioned, she remains actively bronchospastic and wheezy. No signs of any CO2 narcosis. Oxygen requirements remain unchanged and the patient remains on oxy gen at 3 L per minute nasal cannula. Objective - Vital Signs Vital signs: Vital Signs Temp 98.0 F 04/15/23 14:00 Pulse 86 04/15/23 16:09 Resp 24 04/15/23 14:00 BP 124/51 04/15/23 14:00 Pulse Ox 95 04/15/23 14:00 FiO2 Intake & Output 04/14/23 04/15/23 04/15/23 18:59 06:59 18:59 Intake Total 236 Balance 236 Intake: Oral 236 Other: Voiding Method Bedside Commode Bedside Commode # Voids 2 2 - Exam GENERAL EXAM: Alert, 67-year-old white female, comfortable in no apparent distress., Still on 3 L of O2 nasal cannula HEAD: Normocephalic and atraumatic EYES: Normal reaction of pupils, equal size. NOSE: Clear with pink turbinates. THROAT: No erythema or exudates. NECK: No masses, no JVD. CHEST: No chest wall deformity. LUNGS: Equal air entry with expiratory wheezes heard throughout. no crackles, rhonchi or dullness. On 3 L nasal cannula. No conversational dyspnea or accessory muscle use.. CVS: S1 and S2 normal with no audible murmur, regular rhythm. No extra heart sounds ABDOMEN: No hepatosplenomegaly, active bowel sounds, no guarding or rigidity. SPINE: No scoliosis or deformity SKIN: No rashes CENTRAL NERVOUS SYSTEM: No focal deficits, tone is normal in all 4 extremities. EXTREMITIES: There is no peripheral edema, clubbing, or cyanosis. Peripheral pulses are intact. - Labs CBC & Chem 7: 04/13/23 15:22 04/13/23 15:22 Labs: Abnormal Lab Results - Last 24 Hours (Table) 04/14/23 04/14/23 04/15/23 Range/Units 17:21 20:35 06:08 POC Glucose (mg/dL) 166 H 153 H 142 H (70-110) mg/dL 04/15/23 Range/Units 12:16 POC Glucose (mg/dL) 133 H (70-110) mg/dL Microbiology - Last 24 Hours (Table) 04/13/23 16:20 Blood Culture - Preliminary Blood 04/13/23 16:47 Blood Culture - Preliminary Blood Assessment and Plan Assessment: Acute COPD exacerbation. Chest x-ray on arrival shows no acute cardiopulmonary process or evidence of pneumonia. Negative for influenza, RSV, COVID-19. Chronic hypoxemic respiratory failure, currently on 3 L/m nasal cannula History of atrial fibrillation, currently anticoagulated on Eliquis, in normal sinus rhythm. Essential hypertension Hyperlipidemia Coronary artery disease, with prior stent placement History of CVA/TIA History of brain aneurysm status post clipping GERD without esophagitis Scoliosis Ex-smoker,no smoking for 3 year. Plan: Continue Symbicort Stop the Perforomist and Pulmicort neb treatments Continue bronchodilators and steroids patient on a combination of broncho dilators, Symbicort inhaler, IV Solu-Medrol The patient will be kept on IV Solu-Medrol for another 24 hours and a higher dose We will continue to follow The patient is known to have severe COPD with an FEV1 of 40% of predicted hospital for an acute COPD exacerbation. She remains short of breath bro nchospastic and wheezy and will continue the same combination of oxygen therapy, IV Solu-Medrol and the blood treatments [id number]. Chest x-ray is free of any acute pulmonary infiltrates. We'll continue to follow. No altered mentation.
[2023-04-15 17:25] LABS: Glucose,Whole Blood 139 mg/dL (70-110)
[2023-04-15] MEDS: SYMBICORT 160-4.5 MCG INHALER INHALATION SCH (19:52)
[2023-04-15 20:43] LABS: Glucose,Whole Blood 171 mg/dL (70-110)
[2023-04-15] MEDS: MONTELUKAST 10 MG TAB PO SCH (21:04)
[2023-04-15] MEDS: ATORVASTATIN 80 MG TAB PO SCH (21:04)
[2023-04-15] MEDS: lisinopriL 5 MG TAB PO SCH (21:04)
[2023-04-16] MEDS: ALPRAZolam 0.25 MG TAB PO PRN ×3 (04:18→22:50)
[2023-04-16] MEDS: ALBUTEROL NEBULIZED 2.5 MG/3 ML INHALATION PRN ×2 (04:40→22:21)
[2023-04-16 06:05] LABS: Glucose,Whole Blood 139 mg/dL (70-110)
[2023-04-16] MEDS: INSULIN ASPART (NovoLOG) 100 UNIT/ML VIAL SQ SCH ×4 (06:26→22:19)
[2023-04-16] MEDS: methylPREDNISolone SOD SUCCI 125 MG/2 ML VIAL IV SCH ×3 (06:27→18:05)
[2023-04-16] MEDS: SYMBICORT 160-4.5 MCG INHALER INHALATION SCH ×2 (08:11→18:23)
[2023-04-16] MEDS: ALBUTEROL NEBULIZED 2.5 MG/3 ML INHALATION SCH ×4 (08:11→18:23)
[2023-04-16] MEDS: POTASSIUM CHLORIDE ER 10 MEQ TAB.ER.PRT PO SCH (08:31)
[2023-04-16] MEDS: AMIODARONE 200 MG TAB PO SCH ×2 (08:31→22:19)
[2023-04-16] MEDS: APIXABAN 5 MG TAB PO SCH ×2 (08:31→22:18)
[2023-04-16] MEDS: FAMOTIDINE 20 MG TAB PO SCH ×2 (08:31→22:19)
[2023-04-16 11:05] LABS: Basophils # (A) 0 X 10*3/uL (0.00-0.10); Basophils % (A) 0 %; Eosinophils # (A) 0 X 10*3/uL (0.04-0.35); Eosinophils % (A) 0 %; HCT 37.1 % (37.2-46.3); HGB 11.1 d/dL (12.0-15.0); Lymphocytes # (A) 0.31 X 10*3/uL (0.90-5.00); Lymphocytes % (A) 3.9 %; MCH 25.8 pg (27.0-32.0); MCHC 29.9 d/dL (32.0-37.0); MCV 86.1 FL (80.0-97.0); Mean Platelet Volume 11.4 FL (9.5-12.2); Monocytes # (A) 0.44 X 10*3/uL (0.20-1.00); Monocytes % (A) 5.5 %; NRBC Per 100 WBC 0 X 10*3/uL (0.00-0.01); Neutrophils # (A) 7.24 X 10*3/uL (1.80-7.70); Platelet Count 225 X 10*3/uL (140-440); RBC 4.31 X 10*6/uL (4.10-5.20); RDW 16.4 % (11.5-14.5); WBC 8.04 X 10*3/uL (4.50-10.00)
[2023-04-16 11:10] LABS: BUN/Creat Ratio 34.71 Ratio (12.00-20.00); Blood Urea Nitrogen 24.3 mg/dL (9.0-27.0); Calcium 9.2 mg/dL (8.7-10.3); Carbon Dioxide 28.4 mmol/L (21.6-31.8); Chloride 104 mmol/L (96-109); Glucose 144 mg/dL (70-110); Potassium 4.2 mmol/L (3.5-5.5); Sodium 142 mmol/L (135-145)
[2023-04-16 12:34] LABS: Glucose,Whole Blood 143 mg/dL (70-110)
--- NOTE | 2023-04-16 16:24 | P.PN ---
Subjective Progress Note Date: 04/16/23 I am seeing this patient in new consultation today 04/14/2023 for a COPD exacerbation. Patient is a 67-year-old female with past medical history significant for severe oxygen dependent COPD with an FEV1 40% of predicted, atrial fibrillation anticoagulated with Eliquis, hypertension, hyperlipidemia, coronary artery disease with prior stent placement, CVA, brain aneurysms with previous clipping, GERD, and scoliosis. She does follow in the office for management of her severe COPD which she takes Symbicort inhaler and albuterol nebulizations. Her primary care provider is Dr. Juárez. Patient came to the emergency room yesterday afternoon complaining of shortness of breath and wheezing for the last 2 days. She also reports an associated cough with initially yellow sputum production, which is now clear. She denies any fever, chills, chest pain, hemoptysis. Denies sick contacts or recent travel. Patient is currently sitting up in bed, on 3 L nasal cannula, in no acute distress. She does utilize 3 L/m nasal cannula at home. She states that her breathing has improved since her admission. She is still quite bronchospastic on examination. Chest x-ray on arrival shows chronic COPD-like changes without any acute cardiopulmonary process. CBC and BMP on arrival were unremarkable. Patient does have some mild LFT elevation. Troponins were negative 1. Negative for influenza, RSV, COVID-19. Currently on empiric Rocephin. She is afebrile. Vital signs are stable. On today's evaluation of 07/26/2023, the patient remains bronchospastic wheezing and shortness of breath. Limited improvement since yesterday. She did experience some side effects to Perforomist and based on a combination Perforomist and Pulmicort will be discontinued and the patient will be started on Symbicort as maintenance. Otherwise, no new complaints for now. She'll be continued on albuterol neb treatments [id number] and IV Solu-Medrol. As mentioned, she remains actively bronchospastic and wheezy. No signs of any CO2 narcosis. Oxygen requirements remain unchanged and the patient remains on oxy gen at 3 L per minute nasal cannula. On today's evaluation of 04/16/2023, the patient is feeling slightly better compared to yesterday. No new complaints. Remains on broke about it since steroids. No new labs from today. Remains on IV Solu-Medrol 60 mg every 6 hours. She remains on oxygen at 2 L with a pulse ox of 98%. Objective - Vital Signs Vital signs: Vital Signs Temp 97.6 F 04/16/23 07:41 Pulse 76 04/16/23 11:24 Resp 22 04/16/23 07:41 BP 151/60 04/16/23 07:41 Pulse Ox 96 04/16/23 08:12 FiO2 Intake & Output 04/15/23 04/16/23 04/16/23 18:59 06:59 18:59 Intake Total 118 Balance 118 Intake: Oral 118 Other: Voiding Method Bedside Commode Bedside Commode Bedside Commode # Voids 2 2 - Exam GENERAL EXAM: Alert, 67-year-old white female, comfortable in no apparent distress., Still on 3 L of O2 nasal cannula HEAD: Normocephalic and atraumatic EYES: Normal reaction of pupils, equal size. NOSE: Clear with pink turbinates. THROAT: No erythema or exudates. NECK: No masses, no JVD. CHEST: No chest wall deformity. LUNGS: Equal air entry with expiratory wheezes heard throughout. no crackles, rhonchi or dullness. On 3 L nasal cannula. No conversational dyspnea or accessory muscle use.. CVS: S1 and S2 normal with no audible murmur, regular rhythm. No extra heart sounds ABDOMEN: No hepatosplenomegaly, active bowel sounds, no guarding or rigidity. SPINE: No scoliosis or deformity SKIN: No rashes CENTRAL NERVOUS SYSTEM: No focal deficits, tone is normal in all 4 extremities. EXTREMITIES: There is no peripheral edema, clubbing, or cyanosis. Peripheral pulses are intact. - Labs CBC & Chem 7: 04/16/23 06:33 04/16/23 06:33 Labs: Abnormal Lab Results - Last 24 Hours (Table) 04/15/23 04/15/23 04/15/23 Range/Units 12:16 17:23 20:41 Hgb (12.0-15.0) d/dL Hct (37.2-46.3) % MCH (27.0-32.0) pg MCHC (32.0-37.0) d/dL RDW (11.5-14.5) % Lymphocytes # (0.90-5.00) X 10*3/uL Eosinophils # (0.04-0.35) X 10*3/uL BUN/Creatinine Ratio (12.00-20.00) Ratio Glucose (70-110) mg/dL POC Glucose (mg/dL) 133 H 139 H 171 H (70-110) mg/dL 04/16/23 04/16/23 04/16/23 Range/Units 06:01 06:33 06:33 Hgb 11.1 L (12.0-15.0) d/dL Hct 37.1 L (37.2-46.3) % MCH 25.8 L (27.0-32.0) pg MCHC 29.9 L (32.0-37.0) d/dL RDW 16.4 H (11.5-14.5) % Lymphocytes # 0.31 L (0.90-5.00) X 10*3/uL Eosinophils # 0 L (0.04-0.35) X 10*3/uL BUN/Creatinine Ratio 34.71 H (12.00-20.00) Ratio Glucose 144 H (70-110) mg/dL POC Glucose (mg/dL) 139 H (70-110) mg/dL Microbiology - Last 24 Hours (Table) 04/15/23 08:50 Gram Stain - Preliminary Sputum 04/13/23 16:20 Blood Culture - Preliminary Blood 04/13/23 16:47 Blood Culture - Preliminary Blood Assessment and Plan Assessment: Acute COPD exacerbation. Chest x-ray on arrival shows no acute cardiopulmonary process or evidence of pneumonia. Negative for influenza, RSV, COVID-19. Chronic hypoxemic respiratory failure, currently on 3 L/m nasal cannula History of atrial fibrillation, currently anticoagulated on Eliquis, in normal sinus rhythm. Essential hypertension Hyperlipidemia Coronary artery disease, with prior stent placement History of CVA/TIA History of brain aneurysm status post clipping GERD without esophagitis Scoliosis Ex-smoker,no smoking for 3 year. Plan: Continue same treatment Some improvement compared to yesterday Continue Symbicort Continue bronchodilators and steroids patient on a combination of bronchodilators, Symbicort inhaler, IV Solu-Medrol The patient will be kept on IV Solu-Medrol for another 24 hours and a higher dose We will continue to follow The patient is known to have severe COPD with an FEV1 of 40% of predicted hospital for an acute COPD exacerbation. She remains short of breath bronchospastic and wheezy and will continue the same combination of oxygen therapy, IV Solu-Medrol and the blood treatments [id number]. Chest x-ray is free of any acute pulmonary infiltrates. We'll continue to follow. No altered mentation.
[2023-04-16 17:24] LABS: Glucose,Whole Blood 133 mg/dL (70-110)
[2023-04-16 20:19] LABS: Glucose,Whole Blood 160 mg/dL (70-110)
[2023-04-16] MEDS: lisinopriL 5 MG TAB PO SCH (22:19)
[2023-04-16] MEDS: MONTELUKAST 10 MG TAB PO SCH (22:19)
[2023-04-16] MEDS: ATORVASTATIN 80 MG TAB PO SCH (22:19)
--- NOTE | 2023-04-16 23:04 | PN ---
PROGRESS NOTE DATE OF SERVICE: 04/16/2023 SUBJECTIVE: This is a 67-year-old woman who was admitted with COPD acute exacerbation, also had history of asthma. The patient also had history of CVA, TIA. The patient is still having significant shortness of breath. Patient of Dr. Artis who is following the patient closely. OBJECTIVE: VITAL SIGNS: Pulse is 70, blood pressure 151/60, respirations 22. CHEST: Few scattered rhonchi and crackles, expiratory wheezing. ABDOMEN: Soft. NERVOUS SYSTEM: No focal deficits. LABORATORY DATA: Noted, reviewed. ASSESSMENT: 1. COPD acute exacerbation with acute purulent tracheobronchitis with slow improvement. 2. History of asthma. 3. History of CVA, TIA. 4. Hypertension. 5. History of atrial fibrillation. 6. Multiple medical issues. RECOMMENDATIONS AND DISCUSSION: Continue current management and symptomatic treatment. Continue with bronchodilators. Continue steroids. Continue rest of medications. Prognosis guarded. Further recommendations to follow. MMODL / IJN: [id number] /
[2023-04-17] MEDS: methylPREDNISolone SOD SUCCI 125 MG/2 ML VIAL IV SCH ×5 (00:33→23:07)
[2023-04-17] MEDS: ALBUTEROL NEBULIZED 2.5 MG/3 ML INHALATION PRN ×2 (03:41→23:45)
[2023-04-17 06:08] LABS: Glucose,Whole Blood 138 mg/dL (70-110)
[2023-04-17] MEDS: INSULIN ASPART (NovoLOG) 100 UNIT/ML VIAL SQ SCH ×4 (06:08→21:20)
[2023-04-17] MEDS: SYMBICORT 160-4.5 MCG INHALER INHALATION SCH ×2 (08:29→18:24)
[2023-04-17] MEDS: ALBUTEROL NEBULIZED 2.5 MG/3 ML INHALATION SCH ×4 (08:29→18:21)
[2023-04-17] MEDS: POTASSIUM CHLORIDE ER 10 MEQ TAB.ER.PRT PO SCH (08:56)
[2023-04-17] MEDS: APIXABAN 5 MG TAB PO SCH ×2 (08:56→20:10)
[2023-04-17] MEDS: AMIODARONE 200 MG TAB PO SCH ×2 (08:56→20:10)
[2023-04-17] MEDS: FAMOTIDINE 20 MG TAB PO SCH ×2 (08:56→20:10)
[2023-04-17] MEDS: ALPRAZolam 0.25 MG TAB PO PRN ×2 (08:59→17:56)
[2023-04-17 11:20] LABS: Glucose,Whole Blood 134 mg/dL (70-110)
--- NOTE | 2023-04-17 16:17 | P.PN ---
Subjective Progress Note Date: 04/17/23 I am seeing this patient in new consultation today 04/14/2023 for a COPD exacerbation. Patient is a 67-year-old female with past medical history significant for severe oxygen dependent COPD with an FEV1 40% of predicted, atrial fibrillation anticoagulated with Eliquis, hypertension, hyperlipidemia, coronary artery disease with prior stent placement, CVA, brain aneurysms with previous clipping, GERD, and scoliosis. She does follow in the office for management of her severe COPD which she takes Symbicort inhaler and albuterol nebulizations. Her primary care provider is Dr. Juárez. Patient came to the emergency room yesterday afternoon complaining of shortness of breath and wheezing for the last 2 days. She also reports an associated cough with initially yellow sputum production, which is now clear. She denies any fever, chills, chest pain, hemoptysis. Denies sick contacts or recent travel. Patient is currently sitting up in bed, on 3 L nasal cannula, in no acute distress. She does utilize 3 L/m nasal cannula at home. She states that her breathing has improved since her admission. She is still quite bronchospastic on examination. Chest x-ray on arrival shows chronic COPD-like changes without any acute cardiopulmonary process. CBC and BMP on arrival were unremarkable. Patient does have some mild LFT elevation. Troponins were negative 1. Negative for influenza, RSV, COVID-19. Currently on empiric Rocephin. She is afebrile. Vital signs are stable. On today's evaluation of 07/26/2023, the patient remains bronchospastic wheezing and shortness of breath. Limited improvement since yesterday. She did experience some side effects to Perforomist and based on a combination Perforomist and Pulmicort will be discontinued and the patient will be started on Symbicort as maintenance. Otherwise, no new complaints for now. She'll be continued on albuterol neb treatments [id number] and IV Solu-Medrol. As mentioned, she remains actively bronchospastic and wheezy. No signs of any CO2 narcosis. Oxygen requirements remain unchanged and the patient remains on oxy gen at 3 L per minute nasal cannula. On today's evaluation of 04/16/2023, the patient is feeling slightly better compared to yesterday. No new complaints. Remains on broke about it since steroids. No new labs from today. Remains on IV Solu-Medrol 60 mg every 6 hours. She remains on oxygen at 2 L with a pulse ox of 98%. On today's evaluation of 04/17/2023, the patient is essentially untreated and the patient is still having cough congestion chest that is wheezing and minimal exercise capacity as the patient gets short of breath even while walking in her room. Objective - Vital Signs Vital signs: Vital Signs Temp 97.7 F 04/17/23 14:00 Pulse 70 04/17/23 15:33 Resp 18 04/17/23 14:00 BP 148/66 04/17/23 14:00 Pulse Ox 94 L 04/17/23 14:00 FiO2 Intake & Output 04/16/23 04/17/23 04/17/23 18:59 06:59 18:59 Intake Total 236 240 Output Total 300 Balance 236 -60 Intake: Oral 236 240 Output: Urine 300 Other: Voiding Method Bedside Commode Bedside Commode # Voids 2 1 - Exam GENERAL EXAM: Alert, 67-year-old white female, comfortable in no apparent distress., Still on 3 L of O2 nasal cannula HEAD: Normocephalic and atraumatic EYES: Normal reaction of pupils, equal size. NOSE: Clear with pink turbinates. THROAT: No erythema or exudates. NECK: No masses, no JVD. CHEST: No chest wall deformity. LUNGS: Equal air entry with expiratory wheezes heard throughout. no crackles, rhonchi or dullness. On 3 L nasal cannula. No conversational dyspnea or accessory muscle use.. CVS: S1 and S2 normal with no audible murmur, regular rhythm. No extra heart sounds ABDOMEN: No hepatosplenomegaly, active bowel sounds, no guarding or rigidity. SPINE: No scoliosis or deformity SKIN: No rashes CENTRAL NERVOUS SYSTEM: No focal deficits, tone is normal in all 4 extremities. EXTREMITIES: There is no peripheral edema, clubbing, or cyanosis. Peripheral pulses are intact. - Labs CBC & Chem 7: 04/16/23 06:33 04/16/23 06:33 Labs: Abnormal Lab Results - Last 24 Hours (Table) 04/16/23 04/16/23 04/17/23 Range/Units 17:22 20:18 06:06 POC Glucose (mg/dL) 133 H 160 H 138 H (70-110) mg/dL 04/17/23 Range/Units 11:13 POC Glucose (mg/dL) 134 H (70-110) mg/dL Microbiology - Last 24 Hours (Table) 04/13/23 16:20 Blood Culture - Preliminary Blood 04/13/23 16:47 Blood Culture - Preliminary Blood Assessment and Plan Assessment: Acute COPD exacerbation. Chest x-ray on arrival shows no acute cardiopulmonary process or evidence of pneumonia. Negative for influenza, RSV, COVID-19. Chronic hypoxemic respiratory failure, currently on 3 L/m nasal cannula History of atrial fibrillation, currently anticoagulated on Eliquis, in normal sinus rhythm. Essential hypertension Hyperlipidemia Coronary artery disease, with prior stent placement History of CVA/TIA History of brain aneurysm status post clipping GERD without esophagitis Scoliosis Ex-smoker,no smoking for 3 year. Plan: Active COPD exacerbation No major change compared to yesterday Continue same treatment Some improvement compared to yesterday Continue Symbicort Continue bronchodilators and steroids patient on a combination of bronchodilators, Symbicort inhaler, IV Solu-Medrol The patient will be kept on IV Solu-Medrol for another 24 hours and a higher dose We will continue to follow The patient is known to have severe COPD with an FEV1 of 40% of predicted [facility] for an acute COPD exacerbation. She remains short of breath bronchospastic and wheezy and will continue the same combination of oxygen therapy, IV Solu-Medrol and the blood treatments [id number]. Chest x-ray is free of any acute pulmonary infiltrates. We'll continue to follow. No altered mentation.
[2023-04-17 17:12] LABS: Glucose,Whole Blood 147 mg/dL (70-110)
[2023-04-17] MEDS: lisinopriL 5 MG TAB PO SCH (20:10)
[2023-04-17] MEDS: MONTELUKAST 10 MG TAB PO SCH (20:10)
[2023-04-17] MEDS: ATORVASTATIN 80 MG TAB PO SCH (20:10)
[2023-04-17 20:37] LABS: Glucose,Whole Blood 180 mg/dL (70-110)
--- NOTE | 2023-04-17 22:05 | P.PN ---
Subjective This is a pleasant 67 years old female with acute COPD exacerbation with significant history of paroxysmal atrial fibrillation on liquids Patient currently not hypoxic, on home dose of oxygen through the car per minute, she is mildly tachypneic at rest but she has decreased air entry and significant wheezing She remains on ampicillin Medrol 60 mg, also from gastrostomy and is negative at 0.09. DC ceftriaxone. Patient on doxycycline for COPD. Objective - Vital Signs Vital signs: Vital Signs Temp 97.7 F 04/17/23 14:00 Pulse 70 04/17/23 15:33 Resp 18 04/17/23 14:00 BP 148/66 04/17/23 14:00 Pulse Ox 94 L 04/17/23 14:00 FiO2 Intake & Output 04/16/23 04/17/23 04/17/23 18:59 06:59 18:59 Intake Total 236 240 Output Total 300 Balance 236 -60 Intake: Oral 236 240 Output: Urine 300 Other: Voiding Method Bedside Commode Bedside Commode # Voids 2 1 - Exam GENERAL: The patient is alert and oriented x3, not in any acute distress. Well developed, well nourished. HEENT: Pupils are round and equally reacting to light. EOMI. No scleral icterus. No conjunctival pallor. Normocephalic, atraumatic. No pharyngeal erythema. No thyromegaly. CARDIOVASCULAR: S1 and S2 present. No murmurs, rubs, or gallops. PULMONARY: Chest is clear to auscultation, no wheezing . no crackles. ABDOMEN: Soft, nontender, nondistended, normoactive bowel sounds. No palpable organomegaly. MUSCULOSKELETAL: No joint swelling or deformity. EXTREMITIES: No cyanosis, clubbing, or pedal edema. NEUROLOGICAL: Gross neurological examination did not reveal any focal deficits. SKIN: No rashes. no petechiae. - Labs CBC & Chem 7: 04/16/23 06:33 04/16/23 06:33 Labs: Abnormal Lab Results - Last 24 Hours (Table) 04/16/23 04/16/23 04/17/23 Range/Units 17:22 20:18 06:06 POC Glucose (mg/dL) 133 H 160 H 138 H (70-110) mg/dL 04/17/23 Range/Units 11:13 POC Glucose (mg/dL) 134 H (70-110) mg/dL Microbiology - Last 24 Hours (Table) 04/13/23 16:20 Blood Culture - Preliminary Blood 04/13/23 16:47 Blood Culture - Preliminary Blood Assessment and Plan Assessment: acute COPD exacerbation Chronic hypoxic respiratory failure Mild transaminitis Paroxysmal atrial fibrillation on liquids Plan: Continuous epidural 60 mg Start doxycycline Continue with Eliquis Pulmonary team on the case Labs and medication were reviewed.. Continue same treatment. Continue with symptomatic treatment. Resume home medication. Monitor labs and vitals. DVT and GI prophylaxis. Further recommendations as per clinical course of the patient DVT prophylaxis: Eliquis GI Prophylaxis: Pepcid Prognosis is guarded
[2023-04-17] MEDS: DOXYCYCLINE 100 MG CAP PO SCH (23:07)
[2023-04-18] MEDS: ALBUTEROL NEBULIZED 2.5 MG/3 ML INHALATION PRN (03:48)
[2023-04-18 06:13] LABS: Glucose,Whole Blood 127 mg/dL (70-110)
[2023-04-18] MEDS: INSULIN ASPART (NovoLOG) 100 UNIT/ML VIAL SQ SCH ×4 (06:18→21:25)
[2023-04-18] MEDS: methylPREDNISolone SOD SUCCI 125 MG/2 ML VIAL IV SCH ×3 (06:27→18:18)
[2023-04-18] MEDS: ALPRAZolam 0.25 MG TAB PO PRN ×2 (06:30→18:18)
[2023-04-18] MEDS: ALBUTEROL NEBULIZED 2.5 MG/3 ML INHALATION SCH ×4 (08:31→20:46)
[2023-04-18] MEDS: SYMBICORT 160-4.5 MCG INHALER INHALATION SCH ×2 (08:31→20:46)
[2023-04-18] MEDS: APIXABAN 5 MG TAB PO SCH ×2 (09:14→21:24)
[2023-04-18] MEDS: FAMOTIDINE 20 MG TAB PO SCH ×2 (09:14→21:25)
[2023-04-18] MEDS: AMIODARONE 200 MG TAB PO SCH ×2 (09:14→21:24)
[2023-04-18] MEDS: DOXYCYCLINE 100 MG CAP PO SCH ×2 (09:14→21:25)
[2023-04-18] MEDS: POTASSIUM CHLORIDE ER 10 MEQ TAB.ER.PRT PO SCH (09:15)
[2023-04-18 12:22] LABS: ALT 127 U/L (8-44); AST 51 U/L (13-35); Albumin 3.2 d/dL (3.8-4.9); Albumin/Globulin Ratio 1.52 Ratio (1.60-3.17); Alkaline Phosphatase 34 U/L (41-126); BUN/Creat Ratio 40.67 Ratio (12.00-20.00); Bilirubin, Conjugated <0.20 mg/dL (0.20-0.40); Blood Urea Nitrogen 24.4 mg/dL (9.0-27.0); Calcium 8.8 mg/dL (8.7-10.3); Carbon Dioxide 30.2 mmol/L (21.6-31.8); Chloride 103 mmol/L (96-109); Globulin 2.1 d/dL (1.6-3.3); Glucose 146 mg/dL (70-110); Potassium 4.2 mmol/L (3.5-5.5); Sodium 141 mmol/L (135-145); Total Bilirubin <0.2 mg/dL (0.3-1.2); Total Protein 5.3 d/dL (6.2-8.2)
[2023-04-18 13:05] LABS: Glucose,Whole Blood 106 mg/dL (70-110)
--- NOTE | 2023-04-18 14:34 | P.PN ---
Subjective Progress Note Date: 04/18/23 I am seeing this patient in new consultation today 04/14/2023 for a COPD exacerbation. Patient is a 67-year-old female with past medical history significant for severe oxygen dependent COPD with an FEV1 40% of predicted, atrial fibrillation anticoagulated with Eliquis, hypertension, hyperlipidemia, coronary artery disease with prior stent placement, CVA, brain aneurysms with previous clipping, GERD, and scoliosis. She does follow in the office for management of her severe COPD which she takes Symbicort inhaler and albuterol nebulizations. Her primary care provider is Dr. Juárez. Patient came to the emergency room yesterday afternoon complaining of shortness of breath and wheezing for the last 2 days. She also reports an associated cough with initially yellow sputum production, which is now clear. She denies any fever, chills, chest pain, hemoptysis. Denies sick contacts or recent travel. Patient is currently sitting up in bed, on 3 L nasal cannula, in no acute distress. She does utilize 3 L/m nasal cannula at home. She states that her breathing has improved since her admission. She is still quite bronchospastic on examination. Chest x-ray on arrival shows chronic COPD-like changes without any acute cardiopulmonary process. CBC and BMP on arrival were unremarkable. Patient does have some mild LFT elevation. Troponins were negative 1. Negative for influenza, RSV, COVID-19. Currently on empiric Rocephin. She is afebrile. Vital signs are stable. On today's evaluation of 07/26/2023, the patient remains bronchospastic wheezing and shortness of breath. Limited improvement since yesterday. She did experience some side effects to Perforomist and based on a combination Perforomist and Pulmicort will be discontinued and the patient will be started on Symbicort as maintenance. Otherwise, no new complaints for now. She'll be continued on albuterol neb treatments [id number] and IV Solu-Medrol. As mentioned, she remains actively bronchospastic and wheezy. No signs of any CO2 narcosis. Oxygen requirements remain unchanged and the patient remains on oxy gen at 3 L per minute nasal cannula. On today's evaluation of 04/16/2023, the patient is feeling slightly better compared to yesterday. No new complaints. Remains on broke about it since steroids. No new labs from today. Remains on IV Solu-Medrol 60 mg every 6 hours. She remains on oxygen at 2 L with a pulse ox of 98%. On today's evaluation of 04/17/2023, the patient is essentially untreated and the patient is still having cough congestion chest that is wheezing and minimal exercise capacity as the patient gets short of breath even while walking in her room. On 04/18/2023, patient is stable. No new complaints. She reports ongoing slow improvement. Labs from today are unchanged. Sodium is at 141 and a potassium level is at 4.2 that chloride of 103 and a bicarb of 30. BUN is at 24 and a creatinine is at 0.6. There is some mild transaminitis with AST of 51, LDL 127 and a alkaline phosphatase of 127. The sputum sample was positive for stenotrophomonas, the patient is ALLERGIC to sulfa. The patient will be started on IV Fortaz. I'm not sure this patient is infected. Nevertheless, based on her very borderline respiratory status and lack of recovery, I think is reasonable to cover this patient for underlying tracheobronchitis. Objective - Vital Signs Vital signs: Vital Signs Temp 97.5 F L 04/18/23 07:00 Pulse 75 04/18/23 12:25 Resp 19 04/18/23 07:00 BP 153/65 04/18/23 07:00 Pulse Ox 97 04/18/23 07:00 FiO2 Intake & Output 04/17/23 04/18/23 04/18/23 18:59 06:59 18:59 Intake Total 360 Output Total 300 Balance 60 Intake: Oral 360 Output: Urine 300 Other: Voiding Method Bedside Commode # Voids 1 2 # Bowel Movements 1 - Exam GENERAL EXAM: Alert, 67-year-old white female, comfortable in no apparent distress., Still on 3 L of O2 nasal cannula HEAD: Normocephalic and atraumatic EYES: Normal reaction of pupils, equal size. NOSE: Clear with pink turbinates. THROAT: No erythema or exudates. NECK: No masses, no JVD. CHEST: No chest wall deformity. LUNGS: Equal air entry with expiratory wheezes heard throughout. no crackles, rhonchi or dullness. On 3 L nasal cannula. No conversational dyspnea or accessory muscle use.. CVS: S1 and S2 normal with no audible murmur, regular rhythm. No extra heart sounds ABDOMEN: No hepatosplenomegaly, active bowel sounds, no guarding or rigidity. SPINE: No scoliosis or deformity SKIN: No rashes CENTRAL NERVOUS SYSTEM: No focal deficits, tone is normal in all 4 extremities. EXTREMITIES: There is no peripheral edema, clubbing, or cyanosis. Peripheral pulses are intact. - Labs CBC & Chem 7: 04/16/23 06:33 04/18/23 05:30 Labs: Abnormal Lab Results - Last 24 Hours (Table) 04/17/23 04/17/23 04/18/23 Range/Units 17:07 20:35 05:30 BUN/Creatinine Ratio 40.67 H (12.00-20.00) Ratio Glucose 146 H (70-110) mg/dL POC Glucose (mg/dL) 147 H 180 H (70-110) mg/dL Total Bilirubin <0.2 L (0.3-1.2) mg/dL AST 51 H (13-35) U/L ALT 127 H (8-44) U/L Alkaline Phosphatase 34 L (41-126) U/L Total Protein 5.3 L (6.2-8.2) d/dL Albumin 3.2 L (3.8-4.9) d/dL Albumin/Globulin Ratio 1.52 L (1.60-3.17) Ratio 04/18/23 Range/Units 06:12 BUN/Creatinine Ratio (12.00-20.00) Ratio Glucose (70-110) mg/dL POC Glucose (mg/dL) 127 H (70-110) mg/dL Total Bilirubin (0.3-1.2) mg/dL AST (13-35) U/L ALT (8-44) U/L Alkaline Phosphatase (41-126) U/L Total Protein (6.2-8.2) d/dL Albumin (3.8-4.9) d/dL Albumin/Globulin Ratio (1.60-3.17) Ratio Microbiology - Last 24 Hours (Table) 04/15/23 08:50 Gram Stain - Final Sputum Sputum Culture - Final Stenotrophomonas maltophilia Assessment and Plan Assessment: Acute COPD exacerbation. Chest x-ray on arrival shows no acute cardiopulmonary process or evidence of pneumonia. Negative for influenza, RSV, COVID-19. Consider possibility of underlying no Trichomonas tracheal bronchitis Chronic hypoxemic respiratory failure, currently on 3 L/m nasal cannula History of atrial fibrillation, currently anticoagulated on Eliquis, in normal sinus rhythm. Essential hypertension Hyperlipidemia Coronary artery disease, with prior stent placement History of CVA/TIA History of brain aneurysm status post clipping GERD without esophagitis Scoliosis Ex-smoker,no smoking for 3 year. Plan: Start The patient IV Fortaz Active COPD exacerbation Slow but ongoing improvement Continue bronchodilators and steroids patient on a combination of bronchodilators, Symbicort inhaler, IV Solu-Medrol The patient will be kept on IV Solu-Medrol for another 24 hours and a higher dose We will continue to follow The patient is known to have severe COPD with an FEV1 of 40% of predicted hospital for an acute COPD exacerbation. She remains short of breath bronchospastic and wheezy and will continue the same combination of oxygen ther apy, IV Solu-Medrol and the blood treatments [id number]. Chest x-ray is free of any acute pulmonary infiltrates. We'll continue to follow. No altered mentation.
[2023-04-18 17:34] LABS: Glucose,Whole Blood 163 mg/dL (70-110)
[2023-04-18 20:50] LABS: Glucose,Whole Blood 155 mg/dL (70-110)
[2023-04-18] MEDS: lisinopriL 5 MG TAB PO SCH (21:25)
[2023-04-18] MEDS: MONTELUKAST 10 MG TAB PO SCH (21:25)
[2023-04-18] MEDS: ATORVASTATIN 80 MG TAB PO SCH (21:25)
--- NOTE | 2023-04-18 22:24 | P.PN ---
Subjective This is a pleasant 67 years old female with acute COPD exacerbation with significant history of paroxysmal atrial fibrillation on liquids Patient currently not hypoxic, on home dose of oxygen through the car per minute, she is mildly tachypneic at rest but she has decreased air entry and significant wheezing She remains on ampicillin Medrol 60 mg, also from gastrostomy and is negative at 0.09. DC ceftriaxone. Patient on doxycycline for COPD. 04/18/2023 Wheezing today still present but looks slightly better. She is kept on IV Solu-Medrol and doxycycline. Ceftazidime is admitted today. Patient has positive sputum culture. Chest x-ray is negative for infiltrate. Broadcalcitonin is negative. She is also on liquids Objective - Vital Signs Vital signs: Vital Signs Temp 98.1 F 04/18/23 14:00 Pulse 74 04/18/23 20:56 Resp 19 04/18/23 14:00 BP 149/68 04/18/23 14:00 Pulse Ox 96 04/18/23 14:00 FiO2 Intake & Output 04/18/23 04/18/23 04/19/23 06:59 18:59 06:59 Intake Total 236 Balance 236 Intake: Oral 236 Other: Voiding Method Bedside Commode # Voids 2 2 1 # Bowel Movements 1 1 1 - Exam GENERAL: The patient is alert and oriented x3, not in any acute distress. Well developed, well nourished. HEENT: Pupils are round and equally reacting to light. EOMI. No scleral icterus. No conjunctival pallor. Normocephalic, atraumatic. No pharyngeal erythema. No thyromegaly. CARDIOVASCULAR: S1 and S2 present. No murmurs, rubs, or gallops. PULMONARY: Chest is clear to auscultation, no wheezing . no crackles. ABDOMEN: Soft, nontender, nondistended, normoactive bowel sounds. No palpable organomegaly. MUSCULOSKELETAL: No joint swelling or deformity. EXTREMITIES: No cyanosis, clubbing, or pedal edema. NEUROLOGICAL: Gross neurological examination did not reveal any focal deficits. SKIN: No rashes. no petechiae. - Labs CBC & Chem 7: 04/16/23 06:33 04/18/23 05:30 Labs: Abnormal Lab Results - Last 24 Hours (Table) 04/18/23 04/18/23 04/18/23 Range/Units 05:30 06:12 17:31 BUN/Creatinine Ratio 40.67 H (12.00-20.00) Ratio Glucose 146 H (70-110) mg/dL POC Glucose (mg/dL) 127 H 163 H (70-110) mg/dL Total Bilirubin <0.2 L (0.3-1.2) mg/dL AST 51 H (13-35) U/L ALT 127 H (8-44) U/L Alkaline Phosphatase 34 L (41-126) U/L Total Protein 5.3 L (6.2-8.2) d/dL Albumin 3.2 L (3.8-4.9) d/dL Albumin/Globulin Ratio 1.52 L (1.60-3.17) Ratio 04/18/23 Range/Units 20:48 BUN/Creatinine Ratio (12.00-20.00) Ratio Glucose (70-110) mg/dL POC Glucose (mg/dL) 155 H (70-110) mg/dL Total Bilirubin (0.3-1.2) mg/dL AST (13-35) U/L ALT (8-44) U/L Alkaline Phosphatase (41-126) U/L Total Protein (6.2-8.2) d/dL Albumin (3.8-4.9) d/dL Albumin/Globulin Ratio (1.60-3.17) Ratio Microbiology - Last 24 Hours (Table) 04/13/23 16:20 Blood Culture - Final Blood 04/13/23 16:47 Blood Culture - Final Blood 04/15/23 08:50 Gram Stain - Final Sputum Sputum Culture - Final Stenotrophomonas maltophilia Assessment and Plan Assessment: acute COPD exacerbation Acute tracheobronchitis is suspected with positive sputum culture Chronic hypoxic respiratory failure Mild transaminitis Paroxysmal atrial fibrillation on liquids Plan: Continuous IV Solu-Medrol 60 mg Start doxycycline and ceftazidime Continue with Eliquis Pulmonary team on the case Labs and medication were reviewed.. Continue same treatment. Continue with symptomatic treatment. Resume home medication. Monitor labs and vitals. DVT and GI prophylaxis. Further recommendations as per clinical course of the patient DVT prophylaxis: Eliquis GI Prophylaxis: Pepcid Prognosis is guarded
[2023-04-19] MEDS: methylPREDNISolone SOD SUCCI 125 MG/2 ML VIAL IV SCH ×4 (00:22→17:55)
[2023-04-19] MEDS: ALBUTEROL NEBULIZED 2.5 MG/3 ML INHALATION PRN ×2 (00:23→04:11)
[2023-04-19 06:01] LABS: Glucose,Whole Blood 142 mg/dL (70-110)
[2023-04-19] MEDS: INSULIN ASPART (NovoLOG) 100 UNIT/ML VIAL SQ SCH ×4 (06:01→20:58)
[2023-04-19] MEDS: SYMBICORT 160-4.5 MCG INHALER INHALATION SCH ×2 (08:16→21:16)
[2023-04-19] MEDS: ALBUTEROL NEBULIZED 2.5 MG/3 ML INHALATION SCH ×4 (08:16→21:16)
[2023-04-19] MEDS: AMIODARONE 200 MG TAB PO SCH ×2 (09:28→20:47)
[2023-04-19] MEDS: ALPRAZolam 0.25 MG TAB PO PRN ×2 (09:28→18:06)
[2023-04-19] MEDS: POTASSIUM CHLORIDE ER 10 MEQ TAB.ER.PRT PO SCH (09:28)
[2023-04-19] MEDS: APIXABAN 5 MG TAB PO SCH ×2 (09:28→20:47)
[2023-04-19] MEDS: FAMOTIDINE 20 MG TAB PO SCH ×2 (09:28→20:47)
[2023-04-19] MEDS: DOXYCYCLINE 100 MG CAP PO SCH ×2 (09:28→20:47)
[2023-04-19 12:22] LABS: Glucose,Whole Blood 147 mg/dL (70-110)
--- NOTE | 2023-04-19 13:18 | P.PN ---
Subjective Progress Note Date: 04/19/23 I am seeing this patient in new consultation today 04/14/2023 for a COPD exacerbation. Patient is a 67-year-old female with past medical history significant for severe oxygen dependent COPD with an FEV1 40% of predicted, atrial fibrillation anticoagulated with Eliquis, hypertension, hyperlipidemia, coronary artery disease with prior stent placement, CVA, brain aneurysms with previous clipping, GERD, and scoliosis. She does follow in the office for management of her severe COPD which she takes Symbicort inhaler and albuterol nebulizations. Her primary care provider is Dr. Juárez. Patient came to the emergency room yesterday afternoon complaining of shortness of breath and wheezing for the last 2 days. She also reports an associated cough with initially yellow sputum production, which is now clear. She denies any fever, chills, chest pain, hemoptysis. Denies sick contacts or recent travel. Patient is currently sitting up in bed, on 3 L nasal cannula, in no acute distress. She does utilize 3 L/m nasal cannula at home. She states that her breathing has improved since her admission. She is still quite bronchospastic on examination. Chest x-ray on arrival shows chronic COPD-like changes without any acute cardiopulmonary process. CBC and BMP on arrival were unremarkable. Patient does have some mild LFT elevation. Troponins were negative 1. Negative for influenza, RSV, COVID-19. Currently on empiric Rocephin. She is afebrile. Vital signs are stable. On today's evaluation of 07/26/2023, the patient remains bronchospastic wheezing and shortness of breath. Limited improvement since yesterday. She did experience some side effects to Perforomist and based on a combination Perforomist and Pulmicort will be discontinued and the patient will be started on Symbicort as maintenance. Otherwise, no new complaints for now. She'll be continued on albuterol neb treatments [id number] and IV Solu-Medrol. As mentioned, she remains actively bronchospastic and wheezy. No signs of any CO2 narcosis. Oxygen requirements remain unchanged and the patient remains on oxy gen at 3 L per minute nasal cannula. On today's evaluation of 04/16/2023, the patient is feeling slightly better compared to yesterday. No new complaints. Remains on broke about it since steroids. No new labs from today. Remains on IV Solu-Medrol 60 mg every 6 hours. She remains on oxygen at 2 L with a pulse ox of 98%. On today's evaluation of 04/17/2023, the patient is essentially untreated and the patient is still having cough congestion chest that is wheezing and minimal exercise capacity as the patient gets short of breath even while walking in her room. On 04/18/2023, patient is stable. No new complaints. She reports ongoing slow improvement. Labs from today are unchanged. Sodium is at 141 and a potassium level is at 4.2 that chloride of 103 and a bicarb of 30. BUN is at 24 and a creatinine is at 0.6. There is some mild transaminitis with AST of 51, LDL 127 and a alkaline phosphatase of 127. The sputum sample was positive for stenotrophomonas, the patient is ALLERGIC to sulfa. The patient will be started on IV Fortaz. I'm not sure this patient is infected. Nevertheless, based on her very borderline respiratory status and lack of recovery, I think is reasonable to cover this patient for underlying tracheobronchitis. 04/19/2023, no new complaints and the patient's condition is improving. She was started on IV antibiotics With IV Fortaz and the patient was found to have Pseudomonas in her sputum. I believe she is improving. She is on bronchodilators. She is on steroids patient is ambulating. No fever or chills. Objective - Vital Signs Vital signs: Vital Signs Temp 97.3 F L 04/19/23 08:00 Pulse 75 04/19/23 12:11 Resp 20 04/19/23 08:00 BP 141/69 04/19/23 08:00 Pulse Ox 96 04/19/23 08:00 FiO2 Intake & Output 04/18/23 04/19/23 04/19/23 18:59 06:59 18:59 Intake Total 236 0 Balance 236 0 Intake: Oral 236 0 Other: Voiding Method Bedside Commode Bedside Commode # Voids 2 1 # Bowel Movements 1 1 - Exam GENERAL EXAM: Alert, 67-year-old white female, comfortable in no apparent distress., Still on 3 L of O2 nasal cannula HEAD: Normocephalic and atraumatic EYES: Normal reaction of pupils, equal size. NOSE: Clear with pink turbinates. THROAT: No erythema or exudates. NECK: No masses, no JVD. CHEST: No chest wall deformity. LUNGS: Equal air entry with expiratory wheezes heard throughout. no crackles, rhonchi or dullness. On 3 L nasal cannula. No conversational dyspnea or accessory muscle use.. CVS: S1 and S2 normal with no audible murmur, regular rhythm. No extra heart sounds ABDOMEN: No hepatosplenomegaly, active bowel sounds, no guarding or rigidity. SPINE: No scoliosis or deformity SKIN: No rashes CENTRAL NERVOUS SYSTEM: No focal deficits, tone is normal in all 4 extremities. EXTREMITIES: There is no peripheral edema, clubbing, or cyanosis. Peripheral pulses are intact. - Labs CBC & Chem 7: 04/16/23 06:33 04/18/23 05:30 Labs: Abnormal Lab Results - Last 24 Hours (Table) 04/18/23 04/18/23 04/19/23 Range/Units 17:31 20:48 05:58 POC Glucose (mg/dL) 163 H 155 H 142 H (70-110) mg/dL 04/19/23 Range/Units 12:21 POC Glucose (mg/dL) 147 H (70-110) mg/dL Microbiology - Last 24 Hours (Table) 04/13/23 16:20 Blood Culture - Final Blood 04/13/23 16:47 Blood Culture - Final Blood 04/15/23 08:50 Gram Stain - Final Sputum Sputum Culture - Final Stenotrophomonas maltophilia Assessment and Plan Assessment: Acute COPD exacerbation. Chest x-ray on arrival shows no acute cardiopulmonary process or evidence of pneumonia. Negative for influenza, RSV, COVID-19. Consider possibility of underlying stenotrophomonasal bronchitis Chronic hypoxemic respiratory failure, currently on 3 L/m nasal cannula History of atrial fibrillation, currently anticoagulated on Eliquis, in normal sinus rhythm. Essential hypertension Hyperlipidemia Coronary artery disease, with prior stent placement History of CVA/TIA History of brain aneurysm status post clipping GERD without esophagitis Scoliosis Ex-smoker,no smoking for 3 year. Plan: Clinically improving Continue The patient IV Fortaz Continue bronchodilators and steroids patient on a combination of bronchod ilators, Symbicort inhaler, IV Solu-Medrol The patient will be kept on IV Solu-Medrol for another 24 hours and a higher dose We will continue to follow The patient is known to have severe COPD with an FEV1 of 40% of predicted hospital for an acute COPD exacerbation. She remains short of breath bron chospastic and wheezy and will continue the same combination of oxygen therapy, IV Solu-Medrol and the blood treatments [id number]. Chest x-ray is free of any acute pulmonary infiltrates. We'll continue to follow. No altered mentation.
[2023-04-19 17:24] LABS: Glucose,Whole Blood 168 mg/dL (70-110)
[2023-04-19 20:43] LABS: Glucose,Whole Blood 174 mg/dL (70-110)
[2023-04-19] MEDS: ATORVASTATIN 80 MG TAB PO SCH (20:47)
[2023-04-19] MEDS: MONTELUKAST 10 MG TAB PO SCH (20:47)
[2023-04-19] MEDS: lisinopriL 5 MG TAB PO SCH (20:47)
--- NOTE | 2023-04-19 21:16 | P.PN ---
Subjective This is a pleasant 67 years old female with acute COPD exacerbation with significant history of paroxysmal atrial fibrillation on liquids Patient currently not hypoxic, on home dose of oxygen through the car per minute, she is mildly tachypneic at rest but she has decreased air entry and significant wheezing She remains on ampicillin Medrol 60 mg, also from gastrostomy and is negative at 0.09. DC ceftriaxone. Patient on doxycycline for COPD. 04/18/2023 Wheezing today still present but looks slightly better. She is kept on IV Solu-Medrol and doxycycline. Ceftazidime is admitted today. Patient has positive sputum culture. Chest x-ray is negative for infiltrate. Broadcalcitonin is negative. She is also on liquids 04/19/2023 Patient today is improving compared to yesterday as she has less wheezing and the secretion although not completely resolved I would estimate improvement by 30-40%. No significant respiratory distress at rest. Patient remains on IV salmeterol 60 mg and Eliquis 5 mg dose home Her sputum culture was growing stenotrphomonas, acute tracheobronchitis is suspected and patient was placed on doxycycline and ceftazidime Objective - Vital Signs Vital signs: Vital Signs Temp 97.3 F L 04/19/23 08:00 Pulse 75 04/19/23 12:11 Resp 20 04/19/23 08:00 BP 141/69 04/19/23 08:00 Pulse Ox 96 04/19/23 08:00 FiO2 Intake & Output 04/18/23 04/19/23 04/19/23 18:59 06:59 18:59 Intake Total 236 0 Balance 236 0 Intake: Oral 236 0 Other: Voiding Method Bedside Commode Bedside Commode # Voids 2 1 # Bowel Movements 1 1 - Exam GENERAL: The patient is alert and oriented x3, not in any acute distress. Well developed, well nourished. HEENT: Pupils are round and equally reacting to light. EOMI. No scleral icterus. No conjunctival pallor. Normocephalic, atraumatic. No pharyngeal erythema. No thyromegaly. CARDIOVASCULAR: S1 and S2 present. No murmurs, rubs, or gallops. PULMONARY: Chest is clear to auscultation, no wheezing . no crackles. ABDOMEN: Soft, nontender, nondistended, normoactive bowel sounds. No palpable organomegaly. MUSCULOSKELETAL: No joint swelling or deformity. EXTREMITIES: No cyanosis, clubbing, or pedal edema. NEUROLOGICAL: Gross neurological examination did not reveal any focal deficits. SKIN: No rashes. no petechiae. - Labs CBC & Chem 7: 04/16/23 06:33 04/18/23 05:30 Labs: Abnormal Lab Results - Last 24 Hours (Table) 04/18/23 04/18/23 04/19/23 Range/Units 17:31 20:48 05:58 POC Glucose (mg/dL) 163 H 155 H 142 H (70-110) mg/dL 04/19/23 Range/Units 12:21 POC Glucose (mg/dL) 147 H (70-110) mg/dL Microbiology - Last 24 Hours (Table) 04/13/23 16:20 Blood Culture - Final Blood 04/13/23 16:47 Blood Culture - Final Blood 04/15/23 08:50 Gram Stain - Final Sputum Sputum Culture - Final Stenotrophomonas maltophilia Assessment and Plan Assessment: acute COPD exacerbation Acute tracheobronchitis is suspected with positive sputum culture Chronic hypoxic respiratory failure Mild transaminitis Paroxysmal atrial fibrillation on liquids Plan: Continuous IV Solu-Medrol 60 mg Start doxycycline and ceftazidime Continue with Eliquis Pulmonary team on the case Labs and medication were reviewed.. Continue same treatment. Continue with symptomatic treatment. Resume home medication. Monitor labs and vitals. DVT and GI prophylaxis. Further recommendations as per clinical course of the patient DVT prophylaxis: Eliquis GI Prophylaxis: Pepcid Prognosis is guarded
[2023-04-20] MEDS: ALBUTEROL NEBULIZED 2.5 MG/3 ML INHALATION PRN ×2 (00:05→03:50)
[2023-04-20] MEDS: methylPREDNISolone SOD SUCCI 125 MG/2 ML VIAL IV SCH ×5 (00:16→23:16)
[2023-04-20 05:45] LABS: Glucose,Whole Blood 157 mg/dL (70-110)
[2023-04-20] MEDS: INSULIN ASPART (NovoLOG) 100 UNIT/ML VIAL SQ SCH ×4 (05:49→23:13)
[2023-04-20] MEDS: APIXABAN 5 MG TAB PO SCH ×2 (08:21→23:08)
[2023-04-20] MEDS: DOXYCYCLINE 100 MG CAP PO SCH ×2 (08:21→23:08)
[2023-04-20] MEDS: FAMOTIDINE 20 MG TAB PO SCH ×2 (08:22→23:08)
[2023-04-20] MEDS: POTASSIUM CHLORIDE ER 10 MEQ TAB.ER.PRT PO SCH (08:22)
[2023-04-20] MEDS: AMIODARONE 200 MG TAB PO SCH ×2 (08:22→23:08)
[2023-04-20] MEDS: ALPRAZolam 0.25 MG TAB PO PRN ×2 (08:27→23:16)
[2023-04-20] MEDS: SYMBICORT 160-4.5 MCG INHALER INHALATION SCH ×2 (09:16→19:52)
[2023-04-20] MEDS: ALBUTEROL NEBULIZED 2.5 MG/3 ML INHALATION SCH ×4 (09:16→19:52)
--- NOTE | 2023-04-20 12:07 | P.PN ---
Subjective Progress Note Date: 04/20/23 I am seeing this patient in new consultation today 04/14/2023 for a COPD exacerbation. Patient is a 67-year-old female with past medical history significant for severe oxygen dependent COPD with an FEV1 40% of predicted, atrial fibrillation anticoagulated with Eliquis, hypertension, hyperlipidemia, coronary artery disease with prior stent placement, CVA, brain aneurysms with previous clipping, GERD, and scoliosis. She does follow in the office for management of her severe COPD which she takes Symbicort inhaler and albuterol nebulizations. Her primary care provider is Dr. Juárez. Patient came to the emergency room yesterday afternoon complaining of shortness of breath and wheezing for the last 2 days. She also reports an associated cough with initially yellow sputum production, which is now clear. She denies any fever, chills, chest pain, hemoptysis. Denies sick contacts or recent travel. Patient is currently sitting up in bed, on 3 L nasal cannula, in no acute distress. She does utilize 3 L/m nasal cannula at home. She states that her breathing has improved since her admission. She is still quite bronchospastic on examination. Chest x-ray on arrival shows chronic COPD-like changes without any acute cardiopulmonary process. CBC and BMP on arrival were unremarkable. Patient does have some mild LFT elevation. Troponins were negative 1. Negative for influenza, RSV, COVID-19. Currently on empiric Rocephin. She is afebrile. Vital signs are stable. On today's evaluation of 07/26/2023, the patient remains bronchospastic wheezing and shortness of breath. Limited improvement since yesterday. She did experience some side effects to Perforomist and based on a combination Perforomist and Pulmicort will be discontinued and the patient will be started on Symbicort as maintenance. Otherwise, no new complaints for now. She'll be continued on albuterol neb treatments [id number] and IV Solu-Medrol. As mentioned, she remains actively bronchospastic and wheezy. No signs of any CO2 narcosis. Oxygen requirements remain unchanged and the patient remains on oxyg en at 3 L per minute nasal cannula. On today's evaluation of 04/16/2023, the patient is feeling slightly better compared to yesterday. No new complaints. Remains on broke about it since steroids. No new labs from today. Remains on IV Solu-Medrol 60 mg every 6 hours. She remains on oxygen at 2 L with a pulse ox of 98%. On today's evaluation of 04/17/2023, the patient is essentially untreated and the patient is still having cough congestion chest that is wheezing and minimal exercise capacity as the patient gets short of breath even while walking in her room. On 04/18/2023, patient is stable. No new complaints. She reports ongoing slow improvement. Labs from today are unchanged. Sodium is at 141 and a potassium level is at 4.2 that chloride of 103 and a bicarb of 30. BUN is at 24 and a creatinine is at 0.6. There is some mild transaminitis with AST of 51, LDL 127 and a alkaline phosphatase of 127. The sputum sample was positive for stenotrophomonas, the patient is ALLERGIC to sulfa. The patient will be started on IV Fortaz. I'm not sure this patient is infected. Nevertheless, based on her very borderline respiratory status and lack of recovery, I think is reasonable to cover this patient for underlying tracheobronchitis. 04/19/2023, no new complaints and the patient's condition is improving. She was started on IV antibiotics With IV Fortaz and the patient was found to have Pseudomonas in her sputum. I believe she is improving. She is on bronchodilators. She is on steroids patient is ambulating. No fever or chills. The patient is seen today 04/20/2023 in follow-up on the regular medical floor. She is awake and alert in no acute distress. She continues with a loose productive cough. Some end expiratory wheeze. She remains on Fortaz and doxycycline. Sputum culture was positive for stenotrophomonas maltophilia. Blood cultures revealed no growth. Blood glucose 157. Continued on Symbicort, albuterol, Singulair and Solu-Medrol. Anticoagulated with Eliquis. Objective - Vital Signs Vital signs: Vital Signs Temp 98.2 F 04/20/23 08:00 Pulse 76 04/20/23 11:06 Resp 18 04/20/23 08:00 BP 159/72 04/20/23 08:00 Pulse Ox 97 04/20/23 09:16 FiO2 Intake & Output 04/19/23 04/20/23 04/20/23 18:59 06:59 18:59 Intake Total 236 298 Output Total 0 Balance 236 298 Intake: Oral 236 298 Output: Stool 0 Other: Voiding Method Bedside Commode # Voids 3 1 - Exam GENERAL EXAM: Alert, oriented, very pleasant 67-year-old female, on 3 L nasal cannula, comfortable in no apparent distress. HEAD: Normocephalic. EYES: Normal reaction of pupils, equal size. NOSE: Clear with pink turbinates. THROAT: No erythema or exudates. NECK: No masses, no JVD. CHEST: No chest wall deformity. LUNGS: Equal air entry with bilateral end expiratory wheeze, diminished. CVS: S1 and S2 normal with no audible murmur, regular rhythm. ABDOMEN: No hepatosplenomegaly, normal bowel sounds, no guarding or rigidity. SPINE: No scoliosis or deformity SKIN: No rashes CENTRAL NERVOUS SYSTEM: No focal deficits, tone is normal in all 4 extremities. EXTREMITIES: There is no peripheral edema. No clubbing, no cyanosis. Peripheral pulses are intact. - Labs CBC & Chem 7: 04/16/23 06:33 04/18/23 05:30 Labs: Abnormal Lab Results - Last 24 Hours (Table) 04/19/23 04/19/23 04/19/23 Range/Units 12:21 17:22 20:42 POC Glucose (mg/dL) 147 H 168 H 174 H (70-110) mg/dL 04/20/23 Range/Units 05:44 POC Glucose (mg/dL) 157 H (70-110) mg/dL Assessment and Plan Assessment: Acute on chronic hypoxemic respiratory failure secondary to an acute exacerbation of chronic obstructive pulmonary disease. Chest x-ray shows no acute cardiopulmonary process or evidence of pneumonia. Negative for influenza, RSV, COVID-19. Consider possibility of underlying stenotrophomonasal bronchitis Chronic hypoxemic respiratory failure, on 3 L/m nasal cannula, FEV1 value 40% of predicted History of atrial fibrillation, currently anticoagulated on Eliquis, in normal sinus rhythm Essential hypertension Hyperlipidemia Coronary artery disease, with prior stent placement History of CVA/TIA History of brain aneurysm status post clipping GERD without esophagitis Scoliosis Ex-smoker, no smoking for 3 years Plan: The patient was seen and evaluated Labs and medications reviewed Improved but not back to her baseline Continue the current treatment plan Titrate the FiO2 as tolerated We will continue to follow I have personally seen and examined the patient, performed the documentation and the assessment and plan as written. Number of minutes spent on the visit: 10.
[2023-04-20 12:28] LABS: Glucose,Whole Blood 147 mg/dL (70-110)
[2023-04-20 17:23] LABS: Glucose,Whole Blood 153 mg/dL (70-110)
[2023-04-20 20:31] LABS: Glucose,Whole Blood 164 mg/dL (70-110)
--- NOTE | 2023-04-20 21:01 | P.PN ---
Subjective This is a pleasant 67 years old female with acute COPD exacerbation with significant history of paroxysmal atrial fibrillation on liquids Patient currently not hypoxic, on home dose of oxygen through the car per minute, she is mildly tachypneic at rest but she has decreased air entry and significant wheezing She remains on ampicillin Medrol 60 mg, also from gastrostomy and is negative at 0.09. DC ceftriaxone. Patient on doxycycline for COPD. 04/18/2023 Wheezing today still present but looks slightly better. She is kept on IV Solu-Medrol and doxycycline. Ceftazidime is admitted today. Patient has positive sputum culture. Chest x-ray is negative for infiltrate. Broadcalcitonin is negative. She is also on liquids 04/19/2023 Patient today is improving compared to yesterday as she has less wheezing and the secretion although not completely resolved I would estimate improvement by 30-40%. No significant respiratory distress at rest. Patient remains on IV salmeterol 60 mg and Eliquis 5 mg dose home Her sputum culture was growing stenotrphomonas, acute tracheobronchitis is suspected and patient was placed on doxycycline and ceftazidime 04/20/2023 Patient still on salmeterol 60 mg, doxycycline and ceftazidime She is improving slowly and gradually Still has wheezing Pulmonary input is appreciated Objective - Vital Signs Vital signs: Vital Signs Temp 98.2 F 04/20/23 08:00 Pulse 76 04/20/23 11:06 Resp 18 04/20/23 08:00 BP 159/72 04/20/23 08:00 Pulse Ox 97 04/20/23 09:16 FiO2 Intake & Output 04/19/23 04/20/23 04/20/23 18:59 06:59 18:59 Intake Total 236 298 Output Total 0 Balance 236 298 Intake: Oral 236 298 Output: Stool 0 Other: Voiding Method Bedside Commode # Voids 3 1 - Exam GENERAL: The patient is alert and oriented x3, not in any acute distress. Well developed, well nourished. HEENT: Pupils are round and equally reacting to light. EOMI. No scleral icterus. No conjunctival pallor. Normocephalic, atraumatic. No pharyngeal erythema. No thyromegaly. CARDIOVASCULAR: S1 and S2 present. No murmurs, rubs, or gallops. PULMONARY: Chest is clear to auscultation, no wheezing . no crackles. ABDOMEN: Soft, nontender, nondistended, normoactive bowel sounds. No palpable organomegaly. MUSCULOSKELETAL: No joint swelling or deformity. EXTREMITIES: No cyanosis, clubbing, or pedal edema. NEUROLOGICAL: Gross neurological examination did not reveal any focal deficits. SKIN: No rashes. no petechiae. - Labs CBC & Chem 7: 04/16/23 06:33 04/18/23 05:30 Labs: Abnormal Lab Results - Last 24 Hours (Table) 04/19/23 04/19/23 04/19/23 Range/Units 12:21 17:22 20:42 POC Glucose (mg/dL) 147 H 168 H 174 H (70-110) mg/dL 04/20/23 Range/Units 05:44 POC Glucose (mg/dL) 157 H (70-110) mg/dL Assessment and Plan Assessment: acute COPD exacerbation Acute tracheobronchitis is suspected with positive sputum culture Chronic hypoxic respiratory failure Mild transaminitis Paroxysmal atrial fibrillation on liquids Plan: Continuous IV Solu-Medrol 60 mg Start doxycycline and ceftazidime Continue with Eliquis Pulmonary team on the case Labs and medication were reviewed.. Continue same treatment. Continue with symptomatic treatment. Resume home medication. Monitor labs and vitals. DVT and GI prophylaxis. Further recommendations as per clinical course of the patient DVT prophylaxis: Eliquis GI Prophylaxis: Pepcid Prognosis is guarded
[2023-04-20] MEDS: lisinopriL 5 MG TAB PO SCH (23:08)
[2023-04-20] MEDS: ATORVASTATIN 80 MG TAB PO SCH (23:08)
[2023-04-20] MEDS: MONTELUKAST 10 MG TAB PO SCH (23:08)
[2023-04-21] MEDS: ALBUTEROL NEBULIZED 2.5 MG/3 ML INHALATION PRN ×2 (00:21→03:53)
[2023-04-21] MEDS: methylPREDNISolone SOD SUCCI 125 MG/2 ML VIAL IV SCH ×4 (05:21→23:54)
[2023-04-21 06:27] LABS: Glucose,Whole Blood 146 mg/dL (70-110)
[2023-04-21] MEDS: INSULIN ASPART (NovoLOG) 100 UNIT/ML VIAL SQ SCH ×4 (06:29→20:24)
[2023-04-21] MEDS: ALBUTEROL NEBULIZED 2.5 MG/3 ML INHALATION SCH ×4 (08:31→20:27)
[2023-04-21] MEDS: SYMBICORT 160-4.5 MCG INHALER INHALATION SCH ×2 (08:32→20:27)
[2023-04-21] MEDS: AMIODARONE 200 MG TAB PO SCH ×2 (09:12→20:24)
[2023-04-21] MEDS: POTASSIUM CHLORIDE ER 10 MEQ TAB.ER.PRT PO SCH (09:12)
[2023-04-21] MEDS: FAMOTIDINE 20 MG TAB PO SCH ×2 (09:12→20:24)
[2023-04-21] MEDS: APIXABAN 5 MG TAB PO SCH ×2 (09:12→20:24)
[2023-04-21] MEDS: DOXYCYCLINE 100 MG CAP PO SCH (09:12)
[2023-04-21] MEDS: ALPRAZolam 0.25 MG TAB PO PRN ×2 (09:16→17:55)
--- NOTE | 2023-04-21 11:41 | P.PN ---
Subjective Progress Note Date: 04/21/23 I am seeing this patient in new consultation today 04/14/2023 for a COPD exacerbation. Patient is a 67-year-old female with past medical history significant for severe oxygen dependent COPD with an FEV1 40% of predicted, atrial fibrillation anticoagulated with Eliquis, hypertension, hyperlipidemia, coronary artery disease with prior stent placement, CVA, brain aneurysms with previous clipping, GERD, and scoliosis. She does follow in the office for management of her severe COPD which she takes Symbicort inhaler and albuterol nebulizations. Her primary care provider is Dr. Juárez. Patient came to the emergency room yesterday afternoon complaining of shortness of breath and wheezing for the last 2 days. She also reports an associated cough with initially yellow sputum production, which is now clear. She denies any fever, chills, chest pain, hemoptysis. Denies sick contacts or recent travel. Patient is currently sitting up in bed, on 3 L nasal cannula, in no acute distress. She does utilize 3 L/m nasal cannula at home. She states that her breathing has improved since her admission. She is still quite bronchospastic on examination. Chest x-ray on arrival shows chronic COPD-like changes without any acute cardiopulmonary process. CBC and BMP on arrival were unremarkable. Patient does have some mild LFT elevation. Troponins were negative 1. Negative for influenza, RSV, COVID-19. Currently on empiric Rocephin. She is afebrile. Vital signs are stable. On today's evaluation of 07/26/2023, the patient remains bronchospastic wheezing and shortness of breath. Limited improvement since yesterday. She did experience some side effects to Perforomist and based on a combination Perforomist and Pulmicort will be discontinued and the patient will be started on Symbicort as maintenance. Otherwise, no new complaints for now. She'll be continued on albuterol neb treatments [id number] and IV Solu-Medrol. As mentioned, she remains actively bronchospastic and wheezy. No signs of any CO2 narcosis. Oxygen requirements remain unchanged and the patient remains on oxyg en at 3 L per minute nasal cannula. On today's evaluation of 04/16/2023, the patient is feeling slightly better compared to yesterday. No new complaints. Remains on broke about it since steroids. No new labs from today. Remains on IV Solu-Medrol 60 mg every 6 hours. She remains on oxygen at 2 L with a pulse ox of 98%. On today's evaluation of 04/17/2023, the patient is essentially untreated and the patient is still having cough congestion chest that is wheezing and minimal exercise capacity as the patient gets short of breath even while walking in her room. On 04/18/2023, patient is stable. No new complaints. She reports ongoing slow improvement. Labs from today are unchanged. Sodium is at 141 and a potassium level is at 4.2 that chloride of 103 and a bicarb of 30. BUN is at 24 and a creatinine is at 0.6. There is some mild transaminitis with AST of 51, LDL 127 and a alkaline phosphatase of 127. The sputum sample was positive for stenotrophomonas, the patient is ALLERGIC to sulfa. The patient will be started on IV Fortaz. I'm not sure this patient is infected. Nevertheless, based on her very borderline respiratory status and lack of recovery, I think is reasonable to cover this patient for underlying tracheobronchitis. 04/19/2023, no new complaints and the patient's condition is improving. She was started on IV antibiotics With IV Fortaz and the patient was found to have Pseudomonas in her sputum. I believe she is improving. She is on bronchodilators. She is on steroids patient is ambulating. No fever or chills. The patient is seen today 04/20/2023 in follow-up on the regular medical floor. She is awake and alert in no acute distress. She continues with a loose productive cough. Some end expiratory wheeze. She remains on Fortaz and doxycycline. Sputum culture was positive for stenotrophomonas maltophilia. Blood cultures revealed no growth. Blood glucose 157. Continued on Symbicort, albuterol, Singulair and Solu-Medrol. Anticoagulated with Eliquis. The patient is seen today 04/21/2023 in follow-up on the regular medical floor. She is currently sitting up at the bedside. Awake and alert in no acute distress. She is maintaining good O2 saturations in the mid 90s on 3 L/m per nasal cannula. Afebrile. Hemodynamically stable. Not quite back to her baseline. We'll continue with Symbicort, albuterol, IV Solu-Medrol. Antibi otics in the form of ceftazidime. Blood sugar 146. Objective - Vital Signs Vital signs: Vital Signs Temp 98.2 F 04/21/23 06:47 Pulse 70 04/21/23 08:32 Resp 18 04/21/23 06:47 BP 183/70 04/21/23 06:47 Pulse Ox 96 04/21/23 08:32 FiO2 Intake & Output 04/20/23 04/21/23 04/21/23 18:59 06:59 18:59 Intake Total 712 Balance 712 Intake: Oral 712 Other: # Voids 1 2 # Bowel Movements 1 - Exam GENERAL EXAM: Alert, pleasant 67-year-old female, on 3 L nasal cannula, comfortable in no apparent distress. HEAD: Normocephalic. EYES: Normal reaction of pupils, equal size. NOSE: Clear with pink turbinates. THROAT: No erythema or exudates. NECK: No masses, no JVD. CHEST: No chest wall deformity. LUNGS: Equal air entry with bilateral end expiratory wheeze, diminished. CVS: S1 and S2 normal with no audible murmur, regular rhythm. ABDOMEN: No hepatosplenomegaly, normal bowel sounds, no guarding or rigidity. SPINE: No scoliosis or deformity SKIN: No rashes CENTRAL NERVOUS SYSTEM: No focal deficits, tone is normal in all 4 extremities. EXTREMITIES: There is no peripheral edema. No clubbing, no cyanosis. Peripheral pulses are intact. - Labs CBC & Chem 7: 04/16/23 06:33 04/18/23 05:30 Labs: Abnormal Lab Results - Last 24 Hours (Table) 04/20/23 04/20/23 04/20/23 Range/Units 12:26 17:22 20:30 POC Glucose (mg/dL) 147 H 153 H 164 H (70-110) mg/dL 04/21/23 Range/Units 06:25 POC Glucose (mg/dL) 146 H (70-110) mg/dL Assessment and Plan Assessment: Acute on chronic hypoxemic respiratory failure secondary to an acute exacerbation of chronic obstructive pulmonary disease. Chest x-ray shows no acute cardiopulmonary process or evidence of pneumonia. Negative for influenza, RSV, COVID-19. Consider possibility of underlying stenotrophomonal bronchitis and currently on Fortaz Chronic hypoxemic respiratory failure, on 3 L/m nasal cannula, FEV1 value 40% of predicted History of atrial fibrillation, currently anticoagulated on Eliquis, in normal sinus rhythm Essential hypertension Hyperlipidemia Coronary artery disease, with prior stent placement History of CVA/TIA History of brain aneurysm status post clipping GERD without esophagitis Scoliosis Ex-smoker, no smoking for 3 years Plan: The patient was seen and evaluated Medications reviewed Continue the current treatment plan Possibly home in the a.m., we'll switch to Levaquin then We will continue to follow I have personally seen and examined the patient, performed the documentation and the assessment and plan as written. Number of minutes spent on the visit: 10.
[2023-04-21 11:55] VITALS: BMI 27.3
[2023-04-21 12:17] LABS: Glucose,Whole Blood 118 mg/dL (70-110)
[2023-04-21 17:38] LABS: Glucose,Whole Blood 159 mg/dL (70-110)
[2023-04-21 20:18] LABS: Glucose,Whole Blood 167 mg/dL (70-110)
[2023-04-21] MEDS: MONTELUKAST 10 MG TAB PO SCH (20:24)
[2023-04-21] MEDS: lisinopriL 5 MG TAB PO SCH (20:24)
[2023-04-21] MEDS: ATORVASTATIN 80 MG TAB PO SCH (20:24)
--- NOTE | 2023-04-21 22:08 | P.PN ---
Subjective This is a pleasant 67 years old female with acute COPD exacerbation with significant history of paroxysmal atrial fibrillation on liquids Patient currently not hypoxic, on home dose of oxygen through the car per minute, she is mildly tachypneic at rest but she has decreased air entry and significant wheezing She remains on ampicillin Medrol 60 mg, also from gastrostomy and is negative at 0.09. DC ceftriaxone. Patient on doxycycline for COPD. 04/18/2023 Wheezing today still present but looks slightly better. She is kept on IV Solu-Medrol and doxycycline. Ceftazidime is admitted today. Patient has positive sputum culture. Chest x-ray is negative for infiltrate. Broadcalcitonin is negative. She is also on liquids 04/19/2023 Patient today is improving compared to yesterday as she has less wheezing and the secretion although not completely resolved I would estimate improvement by 30-40%. No significant respiratory distress at rest. Patient remains on IV salmeterol 60 mg and Eliquis 5 mg dose home Her sputum culture was growing stenotrphomonas, acute tracheobronchitis is suspected and patient was placed on doxycycline and ceftazidime 04/20/2023 Patient still on salmeterol 60 mg, doxycycline and ceftazidime She is improving slowly and gradually Still has wheezing Pulmonary input is appreciated 04/21/2023 Patient still with wheezing on examination and tachypnea while at rest, she is improving slowly and gradually However she is improving every day since she was started on antibiotic with doxycycline and ceftazidime We are assessing her response every day and she may be considered for discharge tomorrow if she keeps improvement. Patient that denies any other symptoms and Vitas looks stable. Continue with steroids on Medrol 60 mg Objective - Vital Signs Vital signs: Vital Signs Temp 98.3 F 04/21/23 19:27 Pulse 84 04/21/23 20:43 Resp 18 04/21/23 19:27 BP 163/54 04/21/23 19:27 Pulse Ox 94 L 04/21/23 19:27 FiO2 Intake & Output 04/21/23 04/21/23 04/22/23 06:59 18:59 06:59 Intake Total 414 Balance 414 Weight 79.379 kg Intake: Oral 414 Other: Voiding Method Bedside Commode Bedside Commode # Voids 2 2 - Exam GENERAL: The patient is alert and oriented x3, not in any acute distress. Well developed, well nourished. HEENT: Pupils are round and equally reacting to light. EOMI. No scleral icterus. No conjunctival pallor. Normocephalic, atraumatic. No pharyngeal erythema. No thyromegaly. CARDIOVASCULAR: S1 and S2 present. No murmurs, rubs, or gallops. PULMONARY: Chest is clear to auscultation, no wheezing . no crackles. ABDOMEN: Soft, nontender, nondistended, normoactive bowel sounds. No palpable organomegaly. MUSCULOSKELETAL: No joint swelling or deformity. EXTREMITIES: No cyanosis, clubbing, or pedal edema. NEUROLOGICAL: Gross neurological examination did not reveal any focal deficits. SKIN: No rashes. no petechiae. - Labs CBC & Chem 7: 04/16/23 06:33 04/18/23 05:30 Labs: Abnormal Lab Results - Last 24 Hours (Table) 04/21/23 04/21/23 04/21/23 Range/Units 06:25 12:16 17:35 POC Glucose (mg/dL) 146 H 118 H 159 H (70-110) mg/dL 04/21/23 Range/Units 20:16 POC Glucose (mg/dL) 167 H (70-110) mg/dL Assessment and Plan Assessment: acute COPD exacerbation Acute tracheobronchitis is suspected with positive sputum culture Chronic hypoxic respiratory failure Mild transaminitis Paroxysmal atrial fibrillation on liquids Plan: Continuous IV Solu-Medrol 60 mg Start doxycycline and ceftazidime Continue with Eliquis Pulmonary team on the case Labs and medication were reviewed.. Continue same treatment. Continue with symptomatic treatment. Resume home medication. Monitor labs and vitals. DVT and GI prophylaxis. Further recommendations as per clinical course of the patient DVT prophylaxis: Eliquis GI Prophylaxis: Pepcid Prognosis is guarded
[2023-04-22] MEDS: ALBUTEROL NEBULIZED 2.5 MG/3 ML INHALATION PRN (03:23)
[2023-04-22 06:00] LABS: Glucose,Whole Blood 133 mg/dL (70-110)
[2023-04-22] MEDS: INSULIN ASPART (NovoLOG) 100 UNIT/ML VIAL SQ SCH ×4 (06:05→22:28)
[2023-04-22] MEDS: methylPREDNISolone SOD SUCCI 125 MG/2 ML VIAL IV SCH ×3 (06:20→17:52)
[2023-04-22] MEDS: ALPRAZolam 0.25 MG TAB PO PRN ×3 (06:20→21:25)
[2023-04-22] MEDS: ALBUTEROL NEBULIZED 2.5 MG/3 ML INHALATION SCH ×4 (07:36→20:34)
[2023-04-22] MEDS: SYMBICORT 160-4.5 MCG INHALER INHALATION SCH ×2 (07:36→20:33)
[2023-04-22] MEDS: FAMOTIDINE 20 MG TAB PO SCH ×2 (09:36→21:21)
[2023-04-22] MEDS: POTASSIUM CHLORIDE ER 10 MEQ TAB.ER.PRT PO SCH (09:36)
[2023-04-22] MEDS: AMIODARONE 200 MG TAB PO SCH ×2 (09:36→21:21)
[2023-04-22] MEDS: APIXABAN 5 MG TAB PO SCH ×2 (09:36→21:21)
--- NOTE | 2023-04-22 10:24 | P.PN ---
Subjective Progress Note Date: 04/22/23 I am seeing this patient in new consultation today 04/14/2023 for a COPD exacerbation. Patient is a 67-year-old female with past medical history significant for severe oxygen dependent COPD with an FEV1 40% of predicted, atrial fibrillation anticoagulated with Eliquis, hypertension, hyperlipidemia, coronary artery disease with prior stent placement, CVA, brain aneurysms with previous clipping, GERD, and scoliosis. She does follow in the office for management of her severe COPD which she takes Symbicort inhaler and albuterol nebulizations. Her primary care provider is Dr. Juárez. Patient came to the emergency room yesterday afternoon complaining of shortness of breath and wheezing for the last 2 days. She also reports an associated cough with initially yellow sputum production, which is now clear. She denies any fever, chills, chest pain, hemoptysis. Denies sick contacts or recent travel. Patient is currently sitting up in bed, on 3 L nasal cannula, in no acute distress. She does utilize 3 L/m nasal cannula at home. She states that her breathing has improved since her admission. She is still quite bronchospastic on examination. Chest x-ray on arrival shows chronic COPD-like changes without any acute cardiopulmonary process. CBC and BMP on arrival were unremarkable. Patient does have some mild LFT elevation. Troponins were negative 1. Negative for influenza, RSV, COVID-19. Currently on empiric Rocephin. She is afebrile. Vital signs are stable. On today's evaluation of 07/26/2023, the patient remains bronchospastic wheezing and shortness of breath. Limited improvement since yesterday. She did experience some side effects to Perforomist and based on a combination Perforomist and Pulmicort will be discontinued and the patient will be started on Symbicort as maintenance. Otherwise, no new complaints for now. She'll be continued on albuterol neb treatments [id number] and IV Solu-Medrol. As mentioned, she remains actively bronchospastic and wheezy. No signs of any CO2 narcosis. Oxygen requirements remain unchanged and the patient remains on oxyg en at 3 L per minute nasal cannula. On today's evaluation of 04/16/2023, the patient is feeling slightly better compared to yesterday. No new complaints. Remains on broke about it since steroids. No new labs from today. Remains on IV Solu-Medrol 60 mg every 6 hours. She remains on oxygen at 2 L with a pulse ox of 98%. On today's evaluation of 04/17/2023, the patient is essentially untreated and the patient is still having cough congestion chest that is wheezing and minimal exercise capacity as the patient gets short of breath even while walking in her room. On 04/18/2023, patient is stable. No new complaints. She reports ongoing slow improvement. Labs from today are unchanged. Sodium is at 141 and a potassium level is at 4.2 that chloride of 103 and a bicarb of 30. BUN is at 24 and a creatinine is at 0.6. There is some mild transaminitis with AST of 51, LDL 127 and a alkaline phosphatase of 127. The sputum sample was positive for stenotrophomonas, the patient is ALLERGIC to sulfa. The patient will be started on IV Fortaz. I'm not sure this patient is infected. Nevertheless, based on her very borderline respiratory status and lack of recovery, I think is reasonable to cover this patient for underlying tracheobronchitis. 04/19/2023, no new complaints and the patient's condition is improving. She was started on IV antibiotics With IV Fortaz and the patient was found to have Pseudomonas in her sputum. I believe she is improving. She is on bronchodilators. She is on steroids patient is ambulating. No fever or chills. The patient is seen today 04/20/2023 in follow-up on the regular medical floor. She is awake and alert in no acute distress. She continues with a loose productive cough. Some end expiratory wheeze. She remains on Fortaz and doxycycline. Sputum culture was positive for stenotrophomonas maltophilia. Blood cultures revealed no growth. Blood glucose 157. Continued on Symbicort, albuterol, Singulair and Solu-Medrol. Anticoagulated with Eliquis. The patient is seen today 04/21/2023 in follow-up on the regular medical floor. She is currently sitting up at the bedside. Awake and alert in no acute distress. She is maintaining good O2 saturations in the mid 90s on 3 L/m per nasal cannula. Afebrile. Hemodynamically stable. Not quite back to her baseline. We'll continue with Symbicort, albuterol, IV Solu-Medrol. Antibi otics in the form of ceftazidime. Blood sugar 146. The patient is seen today 04/22/2023 in follow-up on the regular medical floor. She remains awake and alert in no acute distress. She has been slow to progress. Still not quite back to her baseline. Still with bronchospasm and wheezing. Maintaining good O2 saturations in the 90s on 3 L/m per nasal cannula. She's been afebrile. Sputum culture was positive for Stenotrophomonas maltophilia. Blood glucose 133. She remains on ceftazidime. Continued on Symbicort, albuterol, Solu-Medrol. Objective - Vital Signs Vital signs: Vital Signs Temp 97.9 F 04/22/23 08:00 Pulse 69 04/22/23 08:00 Resp 18 04/22/23 08:00 BP 173/62 04/22/23 08:00 Pulse Ox 96 04/22/23 08:00 FiO2 Intake & Output 04/21/23 04/22/23 04/22/23 18:59 06:59 18:59 Intake Total 414 240 Balance 414 240 Weight 79.379 kg Intake: Oral 414 240 Other: Voiding Method Bedside Commode Bedside Commode # Voids 2 - Exam GENERAL EXAM: Alert, oriented 67-year-old female patient, on 3 L nasal cannula, comfortable in no apparent distress. HEAD: Normocephalic. EYES: Normal reaction of pupils, equal size. NOSE: Clear with pink turbinates. THROAT: No erythema or exudates. NECK: No masses, no JVD. CHEST: No chest wall deformity. LUNGS: Equal air entry with bilateral end expiratory wheeze, diminished. CVS: S1 and S2 normal with no audible murmur, regular rhythm. ABDOMEN: No hepatosplenomegaly, normal bowel sounds, no guarding or rigidity. SPINE: No scoliosis or deformity SKIN: No rashes CENTRAL NERVOUS SYSTEM: No focal deficits, tone is normal in all 4 extremities. EXTREMITIES: There is no peripheral edema. No clubbing, no cyanosis. Peripheral pulses are intact. - Labs CBC & Chem 7: 04/16/23 06:33 04/18/23 05:30 Labs: Abnormal Lab Results - Last 24 Hours (Table) 04/21/23 04/21/23 04/21/23 Range/Units 12:16 17:35 20:16 POC Glucose (mg/dL) 118 H 159 H 167 H (70-110) mg/dL 04/22/23 Range/Units 05:59 POC Glucose (mg/dL) 133 H (70-110) mg/dL Assessment and Plan Assessment: Acute on chronic hypoxemic respiratory failure secondary to an acute exacerbatio n of chronic obstructive pulmonary disease. Chest x-ray shows no acute cardiopulmonary process or evidence of pneumonia. Negative for influenza, RSV, COVID-19. Consider possibility of underlying stenotrophomonal bronchitis and currently on Fortaz Chronic hypoxemic respiratory failure, on 3 L/m nasal cannula, FEV1 value 40% of predicted History of atrial fibrillation, currently anticoagulated on Eliquis, in normal sinus rhythm Essential hypertension Hyperlipidemia Coronary artery disease, with prior stent placement History of CVA/TIA History of brain aneurysm status post clipping GERD without esophagitis Scoliosis Ex-smoker, no smoking for 3 years Plan: The patient was seen and evaluated Medications reviewed Still bronchospastic and wheezing Continue the current treatment plan We will continue to follow I have personally seen and examined the patient, performed the documentation and the assessment and plan as written. Number of minutes spent on the visit: 10.
[2023-04-22 11:46] LABS: Glucose,Whole Blood 145 mg/dL (70-110)
--- NOTE | 2023-04-22 15:43 | P.PN ---
Subjective This is a pleasant 67 years old female with acute COPD exacerbation with significant history of paroxysmal atrial fibrillation on liquids Patient currently not hypoxic, on home dose of oxygen through the car per minute, she is mildly tachypneic at rest but she has decreased air entry and significant wheezing She remains on ampicillin Medrol 60 mg, also from gastrostomy and is negative at 0.09. DC ceftriaxone. Patient on doxycycline for COPD. 04/18/2023 Wheezing today still present but looks slightly better. She is kept on IV Solu-Medrol and doxycycline. Ceftazidime is admitted today. Patient has positive sputum culture. Chest x-ray is negative for infiltrate. Broadcalcitonin is negative. She is also on liquids 04/19/2023 Patient today is improving compared to yesterday as she has less wheezing and the secretion although not completely resolved I would estimate improvement by 30-40%. No significant respiratory distress at rest. Patient remains on IV salmeterol 60 mg and Eliquis 5 mg dose home Her sputum culture was growing stenotrphomonas, acute tracheobronchitis is suspected and patient was placed on doxycycline and ceftazidime 04/20/2023 Patient still on salmeterol 60 mg, doxycycline and ceftazidime She is improving slowly and gradually Still has wheezing Pulmonary input is appreciated 04/21/2023 Patient still with wheezing on examination and tachypnea while at rest, she is improving slowly and gradually However she is improving every day since she was started on antibiotic with doxycycline and ceftazidime We are assessing her response every day and she may be considered for discharge tomorrow if she keeps improvement. Patient that denies any other symptoms and Vitas looks stable. Continue with steroids on Medrol 60 mg 04/22/2023 Patient is not ready for discharge today although she is improving. She still have significant wheezing although it's better than yesterday We will check labs today We will reevaluate tomorrow for possible discharge. Objective - Vital Signs Vital signs: Vital Signs Temp 98.5 F 04/22/23 14:00 Pulse 72 04/22/23 15:26 Resp 20 04/22/23 14:00 BP 149/63 04/22/23 14:00 Pulse Ox 94 L 04/22/23 14:00 FiO2 Intake & Output 04/21/23 04/22/23 04/22/23 18:59 06:59 18:59 Intake Total 414 390 Balance 414 390 Weight 79.379 kg Intake: Oral 414 390 Other: Voiding Method Bedside Commode Bedside Commode # Voids 2 - Exam GENERAL: The patient is alert and oriented x3, not in any acute distress. Well developed, well nourished. HEENT: Pupils are round and equally reacting to light. EOMI. No scleral icterus. No conjunctival pallor. Normocephalic, atraumatic. No pharyngeal erythema. No thyromegaly. CARDIOVASCULAR: S1 and S2 present. No murmurs, rubs, or gallops. PULMONARY: Chest is clear to auscultation, no wheezing . no crackles. ABDOMEN: Soft, nontender, nondistended, normoactive bowel sounds. No palpable organomegaly. MUSCULOSKELETAL: No joint swelling or deformity. EXTREMITIES: No cyanosis, clubbing, or pedal edema. NEUROLOGICAL: Gross neurological examination did not reveal any focal deficits. SKIN: No rashes. no petechiae. - Labs CBC & Chem 7: 04/16/23 06:33 04/18/23 05:30 Labs: Abnormal Lab Results - Last 24 Hours (Table) 04/21/23 04/21/23 04/22/23 Range/Units 17:35 20:16 05:59 POC Glucose (mg/dL) 159 H 167 H 133 H (70-110) mg/dL 04/22/23 Range/Units 11:43 POC Glucose (mg/dL) 145 H (70-110) mg/dL Assessment and Plan Assessment: acute COPD exacerbation Acute tracheobronchitis is suspected with positive sputum culture Chronic hypoxic respiratory failure Mild transaminitis Paroxysmal atrial fibrillation on liquids Plan: Continuous IV Solu-Medrol 60 mg Start doxycycline and ceftazidime Continue with Eliquis Pulmonary team on the case Labs and medication were reviewed.. Continue same treatment. Continue with symptomatic treatment. Resume home medication. Monitor labs and vitals. DVT and GI prophylaxis. Further recommendations as per clinical course of the patient DVT prophylaxis: Eliquis GI Prophylaxis: Pepcid Prognosis is guarded
[2023-04-22 16:03] LABS: Basophils % (A) 0 %; Eosinophils % (A) 0 %; HCT 34.6 % (34.0-46.0); Hypochromasia Slight; Lymphocytes # (A) 0.2 k/uL (1.0-4.8); Lymphocytes % (A) 3 %; MCH 26.5 pg (25.0-35.0); MCHC 31.7 g/dL (31.0-37.0); MCV 83.5 fL (80.0-100.0); Mean Platelet Volume 8.7; Monocytes # (A) 0.2 k/uL (0-1.0); Monocytes % (A) 3 %; Neutrophils # (A) 6.9 k/uL (1.3-7.7); Neutrophils % (A) 93 %; Platelet Count 123 k/uL (150-450); RBC 4.14 m/uL (3.80-5.40); RDW 15.8 % (11.5-15.5); WBC 7.4 k/uL (3.8-10.6)
[2023-04-22 16:36] LABS: African American GFR (CKD) >90 (>60 ml/min/1.73 sqM); Anion Gap 0 mmol/L; Blood Urea Nitrogen 27 mg/dL (7-17); Carbon Dioxide 32 mmol/L (22-30); Chloride 105 mmol/L (98-107); Glucose 141 mg/dL (74-99); Non-African American GFR(CKD) >90 (>60 ml/min/1.73 sqM); Sodium 137 mmol/L (137-145)
[2023-04-22 17:24] LABS: Glucose,Whole Blood 150 mg/dL (70-110)
[2023-04-22 20:03] LABS: Glucose,Whole Blood 161 mg/dL (70-110)
[2023-04-22] MEDS: ATORVASTATIN 80 MG TAB PO SCH (21:21)
[2023-04-22] MEDS: lisinopriL 5 MG TAB PO SCH (21:21)
[2023-04-22] MEDS: MONTELUKAST 10 MG TAB PO SCH (21:21)
[2023-04-23] MEDS: methylPREDNISolone SOD SUCCI 125 MG/2 ML VIAL IV SCH ×5 (00:30→23:48)
[2023-04-23] MEDS: ALBUTEROL NEBULIZED 2.5 MG/3 ML INHALATION PRN (01:15)
[2023-04-23 06:19] LABS: Glucose,Whole Blood 146 mg/dL (70-110)
[2023-04-23] MEDS: INSULIN ASPART (NovoLOG) 100 UNIT/ML VIAL SQ SCH ×4 (06:27→21:31)
[2023-04-23] MEDS: ALBUTEROL NEBULIZED 2.5 MG/3 ML INHALATION SCH ×4 (08:18→20:37)
[2023-04-23] MEDS: SYMBICORT 160-4.5 MCG INHALER INHALATION SCH ×2 (08:18→20:37)
[2023-04-23] MEDS ORDERED: amLODIPine 5 MG TAB PO SCH (09:00)
[2023-04-23] MEDS: AMIODARONE 200 MG TAB PO SCH ×2 (09:37→21:31)
[2023-04-23] MEDS: POTASSIUM CHLORIDE ER 10 MEQ TAB.ER.PRT PO SCH (09:37)
[2023-04-23] MEDS: ALPRAZolam 0.25 MG TAB PO PRN ×2 (09:37→17:48)
[2023-04-23] MEDS: FAMOTIDINE 20 MG TAB PO SCH ×2 (09:37→21:31)
--- NOTE | 2023-04-23 10:45 | P.PN ---
Subjective Progress Note Date: 04/23/23 I am seeing this patient in new consultation today 04/14/2023 for a COPD exacerbation. Patient is a 67-year-old female with past medical history significant for severe oxygen dependent COPD with an FEV1 40% of predicted, atrial fibrillation anticoagulated with Eliquis, hypertension, hyperlipidemia, coronary artery disease with prior stent placement, CVA, brain aneurysms with previous clipping, GERD, and scoliosis. She does follow in the office for management of her severe COPD which she takes Symbicort inhaler and albuterol nebulizations. Her primary care provider is Dr. Juárez. Patient came to the emergency room yesterday afternoon complaining of shortness of breath and wheezing for the last 2 days. She also reports an associated cough with initially yellow sputum production, which is now clear. She denies any fever, chills, chest pain, hemoptysis. Denies sick contacts or recent travel. Patient is currently sitting up in bed, on 3 L nasal cannula, in no acute distress. She does utilize 3 L/m nasal cannula at home. She states that her breathing has improved since her admission. She is still quite bronchospastic on examination. Chest x-ray on arrival shows chronic COPD-like changes without any acute cardiopulmonary process. CBC and BMP on arrival were unremarkable. Patient does have some mild LFT elevation. Troponins were negative 1. Negative for influenza, RSV, COVID-19. Currently on empiric Rocephin. She is afebrile. Vital signs are stable. On today's evaluation of 07/26/2023, the patient remains bronchospastic wheezing and shortness of breath. Limited improvement since yesterday. She did experience some side effects to Perforomist and based on a combination Perforomist and Pulmicort will be discontinued and the patient will be started on Symbicort as maintenance. Otherwise, no new complaints for now. She'll be continued on albuterol neb treatments [id number] and IV Solu-Medrol. As mentioned, she remains actively bronchospastic and wheezy. No signs of any CO2 narcosis. Oxygen requirements remain unchanged and the patient remains on oxyg en at 3 L per minute nasal cannula. On today's evaluation of 04/16/2023, the patient is feeling slightly better compared to yesterday. No new complaints. Remains on broke about it since steroids. No new labs from today. Remains on IV Solu-Medrol 60 mg every 6 hours. She remains on oxygen at 2 L with a pulse ox of 98%. On today's evaluation of 04/17/2023, the patient is essentially untreated and the patient is still having cough congestion chest that is wheezing and minimal exercise capacity as the patient gets short of breath even while walking in her room. On 04/18/2023, patient is stable. No new complaints. She reports ongoing slow improvement. Labs from today are unchanged. Sodium is at 141 and a potassium level is at 4.2 that chloride of 103 and a bicarb of 30. BUN is at 24 and a creatinine is at 0.6. There is some mild transaminitis with AST of 51, LDL 127 and a alkaline phosphatase of 127. The sputum sample was positive for stenotrophomonas, the patient is ALLERGIC to sulfa. The patient will be started on IV Fortaz. I'm not sure this patient is infected. Nevertheless, based on her very borderline respiratory status and lack of recovery, I think is reasonable to cover this patient for underlying tracheobronchitis. 04/19/2023, no new complaints and the patient's condition is improving. She was started on IV antibiotics With IV Fortaz and the patient was found to have Pseudomonas in her sputum. I believe she is improving. She is on bronchodilators. She is on steroids patient is ambulating. No fever or chills. The patient is seen today 04/20/2023 in follow-up on the regular medical floor. She is awake and alert in no acute distress. She continues with a loose productive cough. Some end expiratory wheeze. She remains on Fortaz and doxycycline. Sputum culture was positive for stenotrophomonas maltophilia. Blood cultures revealed no growth. Blood glucose 157. Continued on Symbicort, albuterol, Singulair and Solu-Medrol. Anticoagulated with Eliquis. The patient is seen today 04/21/2023 in follow-up on the regular medical floor. She is currently sitting up at the bedside. Awake and alert in no acute distress. She is maintaining good O2 saturations in the mid 90s on 3 L/m per nasal cannula. Afebrile. Hemodynamically stable. Not quite back to her baseline. We'll continue with Symbicort, albuterol, IV Solu-Medrol. Antibi otics in the form of ceftazidime. Blood sugar 146. The patient is seen today 04/22/2023 in follow-up on the regular medical floor. She remains awake and alert in no acute distress. She has been slow to progress. Still not quite back to her baseline. Still with bronchospasm and wheezing. Maintaining good O2 saturations in the 90s on 3 L/m per nasal cannula. She's been afebrile. Sputum culture was positive for Stenotrophomonas maltophilia. Blood glucose 133. She remains on ceftazidime. Continued on Symbicort, albuterol, Solu-Medrol. The patient is seen today 04/23/2023 in follow-up on the regular medical floor. She is sitting up in bed. Awake and alert in no acute distress. She has been very slow to progress. Still coughing and congested. Still bronchus spastic and wheezing. Maintaining O2 saturations in the 90s on 3 L/m per nasal cannula. She's been afebrile. Sputum cultures positive for Stenotrophomonas maltophilia. Blood sugar 146. She is continued on Symbicort, albuterol, IV Solu-Medrol and Singulair. Antibiotics in the form of ceftazidime. Anticoagulated with Eliquis. We'll plan for bronchoscopy with BAL tomorrow. Objective - Vital Signs Vital signs: Vital Signs Temp 98 F 04/23/23 07:55 Pulse 68 04/23/23 08:32 Resp 20 04/23/23 07:55 BP 174/71 04/23/23 07:55 Pulse Ox 92 L 04/23/23 08:18 FiO2 Intake & Output 04/22/23 04/23/23 04/23/23 18:59 06:59 18:59 Intake Total 390 Balance 390 Intake: Oral 390 Other: Voiding Method Bedside Commode Bedside Commode # Voids 2 0 # Bowel Movements 1 - Exam GENERAL EXAM: Alert, pleasant 67-year-old female patient, sitting up in bed, on 3 L nasal cannula, comfortable in no apparent distress. HEAD: Normocephalic. EYES: Normal reaction of pupils, equal size. NOSE: Clear with pink turbinates. THROAT: No erythema or exudates. NECK: No masses, no JVD. CHEST: No chest wall deformity. LUNGS: Equal air entry with bilateral end expiratory wheeze, diminished. CVS: S1 and S2 normal with no audible murmur, regular rhythm. ABDOMEN: No hepatosplenomegaly, normal bowel sounds, no guarding or rigidity. SPINE: No scoliosis or deformity SKIN: No rashes CENTRAL NERVOUS SYSTEM: No focal deficits, tone is normal in all 4 extremities. EXTREMITIES: There is no peripheral edema. No clubbing, no cyanosis. Peripheral pulses are intact. - Labs CBC & Chem 7: 04/22/23 15:51 04/22/23 15:51 Labs: Abnormal Lab Results - Last 24 Hours (Table) 04/22/23 04/22/23 04/22/23 Range/Units 11:43 15:51 15:51 Hgb 11.0 L (11.4-16.0) gm/dL RDW 15.8 H (11.5-15.5) % Plt Count 123 L (150-450) k/uL Lymphocytes # 0.2 L (1.0-4.8) k/uL Carbon Dioxide 32 H (22-30) mmol/L BUN 27 H (7-17) mg/dL Glucose 141 H (74-99) mg/dL POC Glucose (mg/dL) 145 H (70-110) mg/dL Calcium 8.0 L (8.4-10.2) mg/dL 04/22/23 04/22/23 04/23/23 Range/Units 17:22 20:02 06:07 Hgb (11.4-16.0) gm/dL RDW (11.5-15.5) % Plt Count (150-450) k/uL Lymphocytes # (1.0-4.8) k/uL Carbon Dioxide (22-30) mmol/L BUN (7-17) mg/dL Glucose (74-99) mg/dL POC Glucose (mg/dL) 150 H 161 H 146 H (70-110) mg/dL Calcium (8.4-10.2) mg/dL Assessment and Plan Assessment: Acute on chronic hypoxemic respiratory failure secondary to an acute exacerbation of chronic obstructive pulmonary disease. Chest x-ray shows no acute cardiopulmonary process or evidence of pneumonia. Negative for influenza, RSV, COVID-19. Consider possibility of underlying stenotrophomonal bronchitis and currently on Fortaz. Slow to progress. We will plan for bronchoscopy with BAL on 04/24/2023 Chronic hypoxemic respiratory failure, on 3 L/m nasal cannula, FEV1 value 40% of predicted History of atrial fibrillation, currently anticoagulated on Eliquis, in normal sinus rhythm Essential hypertension Hyperlipidemia Coronary artery disease, with prior stent placement History of CVA/TIA History of brain aneurysm status post clipping GERD without esophagitis Scoliosis Ex-smoker, no smoking for 3 years Plan: The patient was seen and evaluated Medications reviewed Continue the current treatment plan We will plan for bronchoscopy with BAL tomorrow We will continue to follow I have personally seen and examined the patient, performed the documentation and the assessment and plan as written. Number of minutes spent on the visit: 10.
--- NOTE | 2023-04-23 10:48 | XR ---
EXAMINATION TYPE: XR chest 1V portable DATE OF EXAM: 04/23/2023 10:44 AM COMPARISON: Chest radiographs from 1922 TECHNIQUE: XR chest 1V portable Frontal view of the chest. CLINICAL INDICATION:Female, 67 years old with history of Dyspnea; FINDINGS: Lungs/Pleura: There is no evidence of pleural effusion, focal consolidation, or pneumothorax. Pulmonary vascularity: Unremarkable. Heart/mediastinum: Cardiomediastinal silhouette is unremarkable. Musculoskeletal: Degenerative changes of the shoulder joints. IMPRESSION: No acute cardiopulmonary disease/process. No significant change from prior.
[2023-04-23 12:10] LABS: Glucose,Whole Blood 158 mg/dL (70-110)
[2023-04-23] MEDS ORDERED: amLODIPine 2.5 MG TAB PO STA (14:30)
[2023-04-23 17:28] LABS: Glucose,Whole Blood 147 mg/dL (70-110)
--- NOTE | 2023-04-23 20:13 | P.PN ---
Subjective This is a pleasant 67 years old female with acute COPD exacerbation with significant history of paroxysmal atrial fibrillation on liquids Patient currently not hypoxic, on home dose of oxygen through the car per minute, she is mildly tachypneic at rest but she has decreased air entry and significant wheezing She remains on ampicillin Medrol 60 mg, also from gastrostomy and is negative at 0.09. DC ceftriaxone. Patient on doxycycline for COPD. 04/18/2023 Wheezing today still present but looks slightly better. She is kept on IV Solu-Medrol and doxycycline. Ceftazidime is admitted today. Patient has positive sputum culture. Chest x-ray is negative for infiltrate. Broadcalcitonin is negative. She is also on liquids 04/19/2023 Patient today is improving compared to yesterday as she has less wheezing and the secretion although not completely resolved I would estimate improvement by 30-40%. No significant respiratory distress at rest. Patient remains on IV salmeterol 60 mg and Eliquis 5 mg dose home Her sputum culture was growing stenotrphomonas, acute tracheobronchitis is suspected and patient was placed on doxycycline and ceftazidime 04/20/2023 Patient still on salmeterol 60 mg, doxycycline and ceftazidime She is improving slowly and gradually Still has wheezing Pulmonary input is appreciated 04/21/2023 Patient still with wheezing on examination and tachypnea while at rest, she is improving slowly and gradually However she is improving every day since she was started on antibiotic with doxycycline and ceftazidime We are assessing her response every day and she may be considered for discharge tomorrow if she keeps improvement. Patient that denies any other symptoms and Vitas looks stable. Continue with steroids on Medrol 60 mg 04/22/2023 Patient is not ready for discharge today although she is improving. She still have significant wheezing although it's better than yesterday We will check labs today We will reevaluate tomorrow for possible discharge. 04/23/2023 Patient still have significant wheezing and SECRETIONS, still complaining of from exertional dyspnea although her improvement is a slow and incomplete Therefore a shunt planned to undergo bronchoscopy tomorrow with BAL, Eliquis was held She's continue on salmeterol 60 mg and doxycycline and ceftazidime Objective - Vital Signs Vital signs: Vital Signs Temp 98 F 04/23/23 07:55 Pulse 76 04/23/23 11:56 Resp 20 04/23/23 07:55 BP 174/71 04/23/23 07:55 Pulse Ox 92 L 04/23/23 08:18 FiO2 Intake & Output 04/22/23 04/23/23 04/23/23 18:59 06:59 18:59 Intake Total 390 120 Balance 390 120 Intake: Oral 390 120 Other: Voiding Method Bedside Commode Bedside Commode # Voids 2 0 # Bowel Movements 1 - Exam GENERAL: The patient is alert and oriented x3, not in any acute distress. Well developed, well nourished. HEENT: Pupils are round and equally reacting to light. EOMI. No scleral icterus. No conjunctival pallor. Normocephalic, atraumatic. No pharyngeal erythema. No thyromegaly. CARDIOVASCULAR: S1 and S2 present. No murmurs, rubs, or gallops. PULMONARY: Chest is clear to auscultation, no wheezing . no crackles. ABDOMEN: Soft, nontender, nondistended, normoactive bowel sounds. No palpable organomegaly. MUSCULOSKELETAL: No joint swelling or deformity. EXTREMITIES: No cyanosis, clubbing, or pedal edema. NEUROLOGICAL: Gross neurological examination did not reveal any focal deficits. SKIN: No rashes. no petechiae. - Labs CBC & Chem 7: 04/22/23 15:51 04/22/23 15:51 Labs: Abnormal Lab Results - Last 24 Hours (Table) 04/22/23 04/22/23 04/22/23 Range/Units 15:51 15:51 17:22 Hgb 11.0 L (11.4-16.0) gm/dL RDW 15.8 H (11.5-15.5) % Plt Count 123 L (150-450) k/uL Lymphocytes # 0.2 L (1.0-4.8) k/uL Carbon Dioxide 32 H (22-30) mmol/L BUN 27 H (7-17) mg/dL Glucose 141 H (74-99) mg/dL POC Glucose (mg/dL) 150 H (70-110) mg/dL Calcium 8.0 L (8.4-10.2) mg/dL 04/22/23 04/23/23 04/23/23 Range/Units 20:02 06:07 12:07 Hgb (11.4-16.0) gm/dL RDW (11.5-15.5) % Plt Count (150-450) k/uL Lymphocytes # (1.0-4.8) k/uL Carbon Dioxide (22-30) mmol/L BUN (7-17) mg/dL Glucose (74-99) mg/dL POC Glucose (mg/dL) 161 H 146 H 158 H (70-110) mg/dL Calcium (8.4-10.2) mg/dL Assessment and Plan Assessment: acute COPD exacerbation Acute tracheobronchitis is suspected with positive sputum culture Chronic hypoxic respiratory failure Mild transaminitis Paroxysmal atrial fibrillation on liquids Plan: Continuous IV Solu-Medrol 60 mg Start doxycycline and ceftazidime Continue with Eliquis Pulmonary team on the case Labs and medication were reviewed.. Continue same treatment. Continue with symptomatic treatment. Resume home medication. Monitor labs and vitals. DVT and GI prophylaxis. Further recommendations as per clinical course of the patient DVT prophylaxis: Eliquis GI Prophylaxis: Pepcid Prognosis is guarded
[2023-04-23 20:19] LABS: Glucose,Whole Blood 154 mg/dL (70-110)
[2023-04-23] MEDS ORDERED: hydrALAZINE HCL 10 MG TAB PO ONE (21:09)
[2023-04-23] MEDS: ATORVASTATIN 80 MG TAB PO SCH (21:31)
[2023-04-23] MEDS: MONTELUKAST 10 MG TAB PO SCH (21:31)
[2023-04-23] MEDS: lisinopriL 5 MG TAB PO SCH (21:31)
[2023-04-24] MEDS: ALBUTEROL NEBULIZED 2.5 MG/3 ML INHALATION PRN (03:14)
[2023-04-24] MEDS: methylPREDNISolone SOD SUCCI 125 MG/2 ML VIAL IV SCH ×4 (05:23→23:55)
[2023-04-24] MEDS: ALPRAZolam 0.25 MG TAB PO PRN ×2 (05:29→15:02)
[2023-04-24 06:01] LABS: Glucose,Whole Blood 114 mg/dL (70-110)
[2023-04-24] MEDS: INSULIN ASPART (NovoLOG) 100 UNIT/ML VIAL SQ SCH ×4 (06:18→20:38)
[2023-04-24] MEDS: ALBUTEROL NEBULIZED 2.5 MG/3 ML INHALATION SCH ×4 (08:44→20:33)
[2023-04-24] MEDS: SYMBICORT 160-4.5 MCG INHALER INHALATION SCH ×2 (08:44→20:33)
[2023-04-24] MEDS: FAMOTIDINE 20 MG TAB PO SCH ×2 (09:55→21:31)
[2023-04-24] MEDS: amLODIPine 10 MG TAB PO SCH (09:56)
[2023-04-24] MEDS: POTASSIUM CHLORIDE ER 10 MEQ TAB.ER.PRT PO SCH (09:56)
[2023-04-24] MEDS: AMIODARONE 200 MG TAB PO SCH ×2 (09:56→21:31)
--- NOTE | 2023-04-24 11:52 | P.PN ---
Subjective Progress Note Date: 04/24/23 I am seeing this patient in new consultation today 04/14/2023 for a COPD exacerbation. Patient is a 67-year-old female with past medical history significant for severe oxygen dependent COPD with an FEV1 40% of predicted, atrial fibrillation anticoagulated with Eliquis, hypertension, hyperlipidemia, coronary artery disease with prior stent placement, CVA, brain aneurysms with previous clipping, GERD, and scoliosis. She does follow in the office for management of her severe COPD which she takes Symbicort inhaler and albuterol nebulizations. Her primary care provider is Dr. Juárez. Patient came to the emergency room yesterday afternoon complaining of shortness of breath and wheezing for the last 2 days. She also reports an associated cough with initially yellow sputum production, which is now clear. She denies any fever, chills, chest pain, hemoptysis. Denies sick contacts or recent travel. Patient is currently sitting up in bed, on 3 L nasal cannula, in no acute distress. She does utilize 3 L/m nasal cannula at home. She states that her breathing has improved since her admission. She is still quite bronchospastic on examination. Chest x-ray on arrival shows chronic COPD-like changes without any acute cardiopulmonary process. CBC and BMP on arrival were unremarkable. Patient does have some mild LFT elevation. Troponins were negative 1. Negative for influenza, RSV, COVID-19. Currently on empiric Rocephin. She is afebrile. Vital signs are stable. On today's evaluation of 07/26/2023, the patient remains bronchospastic wheezing and shortness of breath. Limited improvement since yesterday. She did experience some side effects to Perforomist and based on a combination Perforomist and Pulmicort will be discontinued and the patient will be started on Symbicort as maintenance. Otherwise, no new complaints for now. She'll be continued on albuterol neb treatments [id number] and IV Solu-Medrol. As mentioned, she remains actively bronchospastic and wheezy. No signs of any CO2 narcosis. Oxygen requirements remain unchanged and the patient remains on oxyg en at 3 L per minute nasal cannula. On today's evaluation of 04/16/2023, the patient is feeling slightly better compared to yesterday. No new complaints. Remains on broke about it since steroids. No new labs from today. Remains on IV Solu-Medrol 60 mg every 6 hours. She remains on oxygen at 2 L with a pulse ox of 98%. On today's evaluation of 04/17/2023, the patient is essentially untreated and the patient is still having cough congestion chest that is wheezing and minimal exercise capacity as the patient gets short of breath even while walking in her room. On 04/18/2023, patient is stable. No new complaints. She reports ongoing slow improvement. Labs from today are unchanged. Sodium is at 141 and a potassium level is at 4.2 that chloride of 103 and a bicarb of 30. BUN is at 24 and a creatinine is at 0.6. There is some mild transaminitis with AST of 51, LDL 127 and a alkaline phosphatase of 127. The sputum sample was positive for stenotrophomonas, the patient is ALLERGIC to sulfa. The patient will be started on IV Fortaz. I'm not sure this patient is infected. Nevertheless, based on her very borderline respiratory status and lack of recovery, I think is reasonable to cover this patient for underlying tracheobronchitis. 04/19/2023, no new complaints and the patient's condition is improving. She was started on IV antibiotics With IV Fortaz and the patient was found to have Pseudomonas in her sputum. I believe she is improving. She is on bronchodilators. She is on steroids patient is ambulating. No fever or chills. The patient is seen today 04/20/2023 in follow-up on the regular medical floor. She is awake and alert in no acute distress. She continues with a loose productive cough. Some end expiratory wheeze. She remains on Fortaz and doxycycline. Sputum culture was positive for stenotrophomonas maltophilia. Blood cultures revealed no growth. Blood glucose 157. Continued on Symbicort, albuterol, Singulair and Solu-Medrol. Anticoagulated with Eliquis. The patient is seen today 04/21/2023 in follow-up on the regular medical floor. She is currently sitting up at the bedside. Awake and alert in no acute distress. She is maintaining good O2 saturations in the mid 90s on 3 L/m per nasal cannula. Afebrile. Hemodynamically stable. Not quite back to her baseline. We'll continue with Symbicort, albuterol, IV Solu-Medrol. Antibi otics in the form of ceftazidime. Blood sugar 146. The patient is seen today 04/22/2023 in follow-up on the regular medical floor. She remains awake and alert in no acute distress. She has been slow to progress. Still not quite back to her baseline. Still with bronchospasm and wheezing. Maintaining good O2 saturations in the 90s on 3 L/m per nasal cannula. She's been afebrile. Sputum culture was positive for Stenotrophomonas maltophilia. Blood glucose 133. She remains on ceftazidime. Continued on Symbicort, albuterol, Solu-Medrol. The patient is seen today 04/23/2023 in follow-up on the regular medical floor. She is sitting up in bed. Awake and alert in no acute distress. She has been very slow to progress. Still coughing and congested. Still bronchus spastic and wheezing. Maintaining O2 saturations in the 90s on 3 L/m per nasal cannula. She's been afebrile. Sputum cultures positive for Stenotrophomonas maltophilia. Blood sugar 146. She is continued on Symbicort, albuterol, IV Solu-Medrol and Singulair. Antibiotics in the form of ceftazidime. Anticoagulated with Eliquis. We'll plan for bronchoscopy with BAL tomorrow. The patient is seen today 04/24/2023 in follow-up on the regular medical floor. She is currently resting comfortably in bed. Awake and alert in no acute distress. Continues with a loose nonproductive cough. Still some chest tightness and wheezing. Plan is for bronchoscopy with BAL today. She is continued on Symbicort, albuterol, Singulair, IV Solu-Medrol. Antibiotics in the form of ceftazidime for her sputum positive Stenotrophomonas maltophilia. Blood sugar 114. Eliquis currently on hold. Objective - Vital Signs Vital signs: Vital Signs Temp 97.9 F 04/24/23 06:57 Pulse 76 04/24/23 08:57 Resp 18 04/24/23 06:57 BP 158/54 04/24/23 06:57 Pulse Ox 96 04/24/23 06:57 FiO2 Intake & Output 04/23/23 04/24/23 04/24/23 18:59 06:59 18:59 Intake Total 360 Output Total 1 0 Balance 359 0 Intake: Oral 360 Output: Stool 1 Emesis 0 Other: Voiding Method Bedside Commode Bedside Commode Bedside Commode # Voids 2 1 # Bowel Movements 1 - Exam GENERAL EXAM: Alert, 67-year-old female, resting in bed, on 3 L nasal cannula, comfortable in no apparent distress. HEAD: Normocephalic. EYES: Normal reaction of pupils, equal size. NOSE: Clear with pink turbinates. THROAT: No erythema or exudates. NECK: No masses, no JVD. CHEST: No chest wall deformity. LUNGS: Equal air entry with bilateral end expiratory wheeze, diminished. CVS: S1 and S2 normal with no audible murmur, regular rhythm. ABDOMEN: No hepatosplenomegaly, normal bowel sounds, no guarding or rigidity. SPINE: No scoliosis or deformity SKIN: No rashes CENTRAL NERVOUS SYSTEM: No focal deficits, tone is normal in all 4 extremities. EXTREMITIES: There is no peripheral edema. No clubbing, no cyanosis. Peripheral pulses are intact. - Labs CBC & Chem 7: 04/22/23 15:51 04/22/23 15:51 Labs: Abnormal Lab Results - Last 24 Hours (Table) 04/23/23 04/23/23 04/23/23 Range/Units 12:07 17:24 20:18 POC Glucose (mg/dL) 158 H 147 H 154 H (70-110) mg/dL 04/24/23 Range/Units 06:00 POC Glucose (mg/dL) 114 H (70-110) mg/dL Assessment and Plan Assessment: Acute on chronic hypoxemic respiratory failure secondary to an acute exacerbation of chronic obstructive pulmonary disease. Chest x-ray shows no acute cardiopulmonary process or evidence of pneumonia. Negative for influenza, RSV, COVID-19. Consider possibility of underlying stenotrophomonal bronchitis and currently on Fortaz. Slow to progress. Bronchoscopy with BAL today 04/24/2023 Chronic hypoxemic respiratory failure, on 3 L/m nasal cannula, FEV1 value 40% of predicted History of atrial fibrillation, currently anticoagulated on Eliquis, in normal sinus rhythm Essential hypertension Hyperlipidemia Coronary artery disease, with prior stent placement History of CVA/TIA History of brain aneurysm status post clipping GERD without esophagitis Scoliosis Ex-smoker, no smoking for 3 years Plan: The patient was seen and evaluated Stable but slow to progress Continue the current treatment plan We will plan for bronchoscopy with BAL today We will continue to follow I have personally seen and examined the patient, performed the documentation and the assessment and plan as written. Number of minutes spent on the visit: 10.
--- NOTE | 2023-04-24 12:16 | P.PN ---
Subjective This is a pleasant 67 years old female with acute COPD exacerbation with significant history of paroxysmal atrial fibrillation on liquids Patient currently not hypoxic, on home dose of oxygen through the car per minute, she is mildly tachypneic at rest but she has decreased air entry and significant wheezing She remains on ampicillin Medrol 60 mg, also from gastrostomy and is negative at 0.09. DC ceftriaxone. Patient on doxycycline for COPD. 04/18/2023 Wheezing today still present but looks slightly better. She is kept on IV Solu-Medrol and doxycycline. Ceftazidime is admitted today. Patient has positive sputum culture. Chest x-ray is negative for infiltrate. Broadcalcitonin is negative. She is also on liquids 04/19/2023 Patient today is improving compared to yesterday as she has less wheezing and the secretion although not completely resolved I would estimate improvement by 30-40%. No significant respiratory distress at rest. Patient remains on IV salmeterol 60 mg and Eliquis 5 mg dose home Her sputum culture was growing stenotrphomonas, acute tracheobronchitis is suspected and patient was placed on doxycycline and ceftazidime 04/20/2023 Patient still on salmeterol 60 mg, doxycycline and ceftazidime She is improving slowly and gradually Still has wheezing Pulmonary input is appreciated 04/21/2023 Patient still with wheezing on examination and tachypnea while at rest, she is improving slowly and gradually However she is improving every day since she was started on antibiotic with doxycycline and ceftazidime We are assessing her response every day and she may be considered for discharge tomorrow if she keeps improvement. Patient that denies any other symptoms and Vitas looks stable. Continue with steroids on Medrol 60 mg 04/22/2023 Patient is not ready for discharge today although she is improving. She still have significant wheezing although it's better than yesterday We will check labs today We will reevaluate tomorrow for possible discharge. 04/23/2023 Patient still have significant wheezing and SECRETIONS, still complaining of from exertional dyspnea although her improvement is a slow and incomplete Therefore a shunt planned to undergo bronchoscopy tomorrow with BAL, Eliquis was held She's continue on salmeterol 60 mg and doxycycline and ceftazidime 04/24/2023 patient continued to improve slowly and gradually and she is taking a prolonged course of therapy. Patient will require bronchoscopy and BAL today with pulmonary team given her slow response to therapy Patient states that she she had bronchoscopy previously for similar indication Objective - Vital Signs Vital signs: Vital Signs Temp 97.9 F 04/24/23 06:57 Pulse 76 04/24/23 08:57 Resp 18 04/24/23 06:57 BP 158/54 04/24/23 06:57 Pulse Ox 96 04/24/23 06:57 FiO2 Intake & Output 04/23/23 04/24/23 04/24/23 18:59 06:59 18:59 Intake Total 360 Output Total 1 0 Balance 359 0 Intake: Oral 360 Output: Stool 1 Emesis 0 Other: Voiding Method Bedside Commode Bedside Commode Bedside Commode # Voids 2 1 # Bowel Movements 1 - Exam GENERAL: The patient is alert and oriented x3, not in any acute distress. Well developed, well nourished. HEENT: Pupils are round and equally reacting to light. EOMI. No scleral icterus. No conjunctival pallor. Normocephalic, atraumatic. No pharyngeal erythema. No thyromegaly. CARDIOVASCULAR: S1 and S2 present. No murmurs, rubs, or gallops. PULMONARY: Chest is clear to auscultation, no wheezing . no crackles. ABDOMEN: Soft, nontender, nondistended, normoactive bowel sounds. No palpable organomegaly. MUSCULOSKELETAL: No joint swelling or deformity. EXTREMITIES: No cyanosis, clubbing, or pedal edema. NEUROLOGICAL: Gross neurological examination did not reveal any focal deficits. SKIN: No rashes. no petechiae. - Labs CBC & Chem 7: 04/22/23 15:51 04/22/23 15:51 Labs: Abnormal Lab Results - Last 24 Hours (Table) 04/23/23 04/23/23 04/24/23 Range/Units 17:24 20:18 06:00 POC Glucose (mg/dL) 147 H 154 H 114 H (70-110) mg/dL Assessment and Plan Assessment: acute COPD exacerbation Acute tracheobronchitis is suspected with positive sputum culture Chronic hypoxic respiratory failure Mild transaminitis Paroxysmal atrial fibrillation on liquids Plan: Continuous IV Solu-Medrol 60 mg Start doxycycline and ceftazidime Continue with [facility] Pulmonary team on the case Labs and medication were reviewed.. Continue same treatment. Continue with symptomatic treatment. Resume home medication. Monitor labs and vitals. DVT and GI prophylaxis. Further recommendations as per clinical course of the patient DVT prophylaxis: Eliquis GI Prophylaxis: Pepcid Prognosis is guarded
[2023-04-24 12:21] LABS: Glucose,Whole Blood 133 mg/dL (70-110)
[2023-04-24] MEDS ORDERED: IV FLUID CONTINUATION 1,000 ML IV ONE ×2 (12:40)
[2023-04-24] MEDS ORDERED: PROPOFOL 10 MG/ML 20 ML VIAL IV ONE (12:40)
[2023-04-24] MEDS ORDERED: LIDOCAINE 2% INJ 20 MG/ML (2 ML VIAL) ONE (12:40)
[2023-04-24] MEDS ORDERED: LIDOCAINE 2% INJ 20 MG/ML INTRATRACH ONE (12:51)
--- NOTE | 2023-04-24 14:14 | OP ---
OPERATIVE REPORT DATE OF SERVICE : PROCEDURES PERFORMED: Bronchoscopy, bronchoalveolar lavage, and bronchial washings and suctioning of secretions from airways. PREOPERATIVE DIAGNOSES: Acute chronic obstructive pulmonary disease exacerbation and purulent tracheobronchitis, unable to clear secretions. POSTOPERATIVE DIAGNOSES: Acute chronic obstructive pulmonary disease exacerbation and purulent tracheobronchitis, unable to clear secretions. ANESTHESIA USED: IV conscious sedation. DESCRIPTION OF PROCEDURE: The patient was prepared according to the bronchoscopy protocol. The patient was brought into the bronchoscopy suite, placed in the supine position, O2 was applied via nasal cannula, we monitored her O2 saturation continuously. Blood pressure was intermittently monitored. Cardiac rhythm was continuously monitored. A bite block was applied, and the patient had O2 applied via nasal cannula. After adequate IV conscious sedation, the bronchoscope was advanced through the bite block down to the area of the vocal cords, which were noted to be patent. Purulent secretions were noted in the upper airway above the vocal cords. Lidocaine was applied on the vocal cords, and thorough examination was done of the trachea, live, right upper lobe, right middle lobe, right lower lobe, left upper lobe lingula and left lower lobe. There were diffuse purulent secretions throughout the airways including the right upper lobe, right middle lobe, right lower lobe, left upper lobe lingula and left lower lobe. These were suctioned and lavaged, and BAL of the different lobes was also done, and apparent secretions were suctioned easily. These were sent for different diagnostic studies. Procedure was well tolerated, no complications, and no evidence of any endobronchial tumors. MMODL / IJN: [id number] /
[2023-04-24 17:37] LABS: Glucose,Whole Blood 157 mg/dL (70-110)
[2023-04-24 20:09] LABS: Glucose,Whole Blood 142 mg/dL (70-110)
[2023-04-24] MEDS: APIXABAN 5 MG TAB PO SCH (21:31)
[2023-04-24] MEDS: MONTELUKAST 10 MG TAB PO SCH (21:31)
[2023-04-24] MEDS: lisinopriL 5 MG TAB PO SCH (21:31)
[2023-04-24] MEDS: ATORVASTATIN 80 MG TAB PO SCH (21:31)
[2023-04-24 22:54] LABS: Appearance,BF Turbid (Clear); RBC, Body Fluid 65 (0-2000)
[2023-04-25] MEDS: ALPRAZolam 0.25 MG TAB PO PRN (04:30)
[2023-04-25] MEDS: methylPREDNISolone SOD SUCCI 125 MG/2 ML VIAL IV SCH (05:59)
[2023-04-25 06:18] LABS: Glucose,Whole Blood 124 mg/dL (70-110)
[2023-04-25] MEDS: INSULIN ASPART (NovoLOG) 100 UNIT/ML VIAL SQ SCH ×4 (06:24→20:33)
[2023-04-25] MEDS: amLODIPine 10 MG TAB PO SCH (06:25)
[2023-04-25] MEDS: ALBUTEROL NEBULIZED 2.5 MG/3 ML INHALATION SCH ×4 (07:50→20:17)
[2023-04-25] MEDS: SYMBICORT 160-4.5 MCG INHALER INHALATION SCH ×2 (07:50→20:17)
[2023-04-25] MEDS: AMIODARONE 200 MG TAB PO SCH ×2 (08:58→19:58)
[2023-04-25] MEDS: POTASSIUM CHLORIDE ER 10 MEQ TAB.ER.PRT PO SCH (08:58)
[2023-04-25] MEDS: FAMOTIDINE 20 MG TAB PO SCH ×2 (08:58→19:57)
[2023-04-25] MEDS: APIXABAN 5 MG TAB PO SCH ×2 (08:58→19:57)
[2023-04-25] MEDS: ALPRAZolam 0.5 MG TAB PO PRN ×2 (09:04→18:31)
--- NOTE | 2023-04-25 09:26 | P.PN ---
Subjective Progress Note Date: 04/25/23 I am seeing this patient in new consultation today 04/14/2023 for a COPD exacerbation. Patient is a 67-year-old female with past medical history significant for severe oxygen dependent COPD with an FEV1 40% of predicted, atrial fibrillation anticoagulated with Eliquis, hypertension, hyperlipidemia, coronary artery disease with prior stent placement, CVA, brain aneurysms with previous clipping, GERD, and scoliosis. She does follow in the office for management of her severe COPD which she takes Symbicort inhaler and albuterol nebulizations. Her primary care provider is Dr. Juárez. Patient came to the emergency room yesterday afternoon complaining of shortness of breath and wheezing for the last 2 days. She also reports an associated cough with initially yellow sputum production, which is now clear. She denies any fever, chills, chest pain, hemoptysis. Denies sick contacts or recent travel. Patient is currently sitting up in bed, on 3 L nasal cannula, in no acute distress. She does utilize 3 L/m nasal cannula at home. She states that her breathing has improved since her admission. She is still quite bronchospastic on examination. Chest x-ray on arrival shows chronic COPD-like changes without any acute cardiopulmonary process. CBC and BMP on arrival were unremarkable. Patient does have some mild LFT elevation. Troponins were negative 1. Negative for influenza, RSV, COVID-19. Currently on empiric Rocephin. She is afebrile. Vital signs are stable. On today's evaluation of 07/26/2023, the patient remains bronchospastic wheezing and shortness of breath. Limited improvement since yesterday. She did experience some side effects to Perforomist and based on a combination Perforomist and Pulmicort will be discontinued and the patient will be started on Symbicort as maintenance. Otherwise, no new complaints for now. She'll be continued on albuterol neb treatments [id number] and IV Solu-Medrol. As mentioned, she remains actively bronchospastic and wheezy. No signs of any CO2 narcosis. Oxygen requirements remain unchanged and the patient remains on oxyg en at 3 L per minute nasal cannula. On today's evaluation of 04/16/2023, the patient is feeling slightly better compared to yesterday. No new complaints. Remains on broke about it since steroids. No new labs from today. Remains on IV Solu-Medrol 60 mg every 6 hours. She remains on oxygen at 2 L with a pulse ox of 98%. On today's evaluation of 04/17/2023, the patient is essentially untreated and the patient is still having cough congestion chest that is wheezing and minimal exercise capacity as the patient gets short of breath even while walking in her room. On 04/18/2023, patient is stable. No new complaints. She reports ongoing slow improvement. Labs from today are unchanged. Sodium is at 141 and a potassium level is at 4.2 that chloride of 103 and a bicarb of 30. BUN is at 24 and a creatinine is at 0.6. There is some mild transaminitis with AST of 51, LDL 127 and a alkaline phosphatase of 127. The sputum sample was positive for stenotrophomonas, the patient is ALLERGIC to sulfa. The patient will be started on IV Fortaz. I'm not sure this patient is infected. Nevertheless, based on her very borderline respiratory status and lack of recovery, I think is reasonable to cover this patient for underlying tracheobronchitis. 04/19/2023, no new complaints and the patient's condition is improving. She was started on IV antibiotics With IV Fortaz and the patient was found to have Pseudomonas in her sputum. I believe she is improving. She is on bronchodilators. She is on steroids patient is ambulating. No fever or chills. The patient is seen today 04/20/2023 in follow-up on the regular medical floor. She is awake and alert in no acute distress. She continues with a loose productive cough. Some end expiratory wheeze. She remains on Fortaz and doxycycline. Sputum culture was positive for stenotrophomonas maltophilia. Blood cultures revealed no growth. Blood glucose 157. Continued on Symbicort, albuterol, Singulair and Solu-Medrol. Anticoagulated with Eliquis. The patient is seen today 04/21/2023 in follow-up on the regular medical floor. She is currently sitting up at the bedside. Awake and alert in no acute distress. She is maintaining good O2 saturations in the mid 90s on 3 L/m per nasal cannula. Afebrile. Hemodynamically stable. Not quite back to her baseline. We'll continue with Symbicort, albuterol, IV Solu-Medrol. Antibi otics in the form of ceftazidime. Blood sugar 146. The patient is seen today 04/22/2023 in follow-up on the regular medical floor. She remains awake and alert in no acute distress. She has been slow to progress. Still not quite back to her baseline. Still with bronchospasm and wheezing. Maintaining good O2 saturations in the 90s on 3 L/m per nasal cannula. She's been afebrile. Sputum culture was positive for Stenotrophomonas maltophilia. Blood glucose 133. She remains on ceftazidime. Continued on Symbicort, albuterol, Solu-Medrol. The patient is seen today 04/23/2023 in follow-up on the regular medical floor. She is sitting up in bed. Awake and alert in no acute distress. She has been very slow to progress. Still coughing and congested. Still bronchus spastic and wheezing. Maintaining O2 saturations in the 90s on 3 L/m per nasal cannula. She's been afebrile. Sputum cultures positive for Stenotrophomonas maltophilia. Blood sugar 146. She is continued on Symbicort, albuterol, IV Solu-Medrol and Singulair. Antibiotics in the form of ceftazidime. Anticoagulated with Eliquis. We'll plan for bronchoscopy with BAL tomorrow. The patient is seen today 04/24/2023 in follow-up on the regular medical floor. She is currently resting comfortably in bed. Awake and alert in no acute distress. Continues with a loose nonproductive cough. Still some chest tightness and wheezing. Plan is for bronchoscopy with BAL today. She is continued on Symbicort, albuterol, Singulair, IV Solu-Medrol. Antibiotics in the form of ceftazidime for her sputum positive Stenotrophomonas maltophilia. Blood sugar 114. Eliquis currently on hold. The patient is seen today 04/25/2023 in follow-up on the regular medical floor. She is sitting up in bed. Awake and alert in no acute distress. Breathing much easier. She did undergo bronchoscopy with BAL yesterday. Many retained secretions were removed. She is continued on Symbicort, albuterol, IV Solu- Medrol. Remains on antibiotics in the form of ceftazidime for her Stenotrophomonas maltophilia. Anticoagulated with Eliquis. She remains anxious. She remains hypertensive. Objective - Vital Signs Vital signs: Vital Signs Temp 97.8 F 04/25/23 08:00 Pulse 68 04/25/23 08:03 Resp 18 04/25/23 08:00 BP 193/73 04/25/23 08:00 Pulse Ox 96 04/25/23 08:00 FiO2 Intake & Output 04/24/23 04/25/23 04/25/23 18:59 06:59 18:59 Intake Total 100 118 Balance 100 118 Intake: IV 100 Oral 118 Other: Voiding Method Bedside Commode Bedside Commode # Voids 1 2 # Bowel Movements 1 - Exam GENERAL EXAM: Alert, oriented, very pleasant 67-year-old female, on 3 L nasal cannula, comfortable in no apparent distress. HEAD: Normocephalic. EYES: Normal reaction of pupils, equal size. NOSE: Clear with pink turbinates. THROAT: No erythema or exudates. NECK: No masses, no JVD. CHEST: No chest wall deformity. LUNGS: Equal air entry with bilateral end expiratory wheeze, diminished. CVS: S1 and S2 normal with no audible murmur, regular rhythm. ABDOMEN: No hepatosplenomegaly, normal bowel sounds, no guarding or rigidity. SPINE: No scoliosis or deformity SKIN: No rashes CENTRAL NERVOUS SYSTEM: No focal deficits, tone is normal in all 4 extremities. EXTREMITIES: There is no peripheral edema. No clubbing, no cyanosis. Peripheral pulses are intact. - Labs CBC & Chem 7: 04/22/23 15:51 04/22/23 15:51 Labs: Abnormal Lab Results - Last 24 Hours (Table) 04/24/23 04/24/23 04/24/23 Range/Units 12:00 12:19 17:36 POC Glucose (mg/dL) 133 H 157 H (70-110) mg/dL Fluid Appearance Turbid A (Clear) 04/24/23 04/25/23 Range/Units 20:07 06:17 POC Glucose (mg/dL) 142 H 124 H (70-110) mg/dL Fluid Appearance (Clear) Assessment and Plan Assessment: Acute on chronic hypoxemic respiratory failure secondary to an acute exacerbation of chronic obstructive pulmonary disease. Chest x-ray shows no acute cardiopulmonary process or evidence of pneumonia. Negative for influenza, RSV, COVID-19. Consider possibility of underlying stenotrophomonal bronchitis and currently on Fortaz. Slow to progress. Bronchoscopy with BAL completed 04/24/2023. Cultures pending. Chronic hypoxemic respiratory failure, on 3 L/m nasal cannula, FEV1 value 40% of predicted History of atrial fibrillation, currently anticoagulated on Eliquis, in normal sinus rhythm Essential hypertension Hyperlipidemia Coronary artery disease, with prior stent placement History of CVA/TIA History of brain aneurysm status post clipping GERD without esophagitis Scoliosis Ex-smoker, no smoking for 3 years Plan: The patient was seen and evaluated Increase Xanax 0.5 mg by mouth 3 times a day when necessary Increase lisinopril to 10 mg daily Discontinue Solu-Medrol, initiate prednisone taper Cleared for discharge from the pulmonary standpoint Continue her home pulmonary medications, oxygen Follow-up in the office in 1 week I have personally seen and examined the patient, performed the documentation and the assessment and plan as written. Number of minutes spent on the visit: 10.
[2023-04-25 11:42] LABS: Glucose,Whole Blood 165 mg/dL (70-110)
[2023-04-25 17:45] LABS: Glucose,Whole Blood 149 mg/dL (70-110)
[2023-04-25] MEDS: MONTELUKAST 10 MG TAB PO SCH (19:57)
[2023-04-25] MEDS: lisinopriL 10 MG TAB PO SCH (19:57)
[2023-04-25] MEDS: ATORVASTATIN 80 MG TAB PO SCH (19:58)
--- NOTE | 2023-04-25 20:12 | P.PN ---
Subjective This is a pleasant 67 years old female with acute COPD exacerbation with significant history of paroxysmal atrial fibrillation on liquids Patient currently not hypoxic, on home dose of oxygen through the car per minute, she is mildly tachypneic at rest but she has decreased air entry and significant wheezing She remains on ampicillin Medrol 60 mg, also from gastrostomy and is negative at 0.09. DC ceftriaxone. Patient on doxycycline for COPD. 04/18/2023 Wheezing today still present but looks slightly better. She is kept on IV Solu-Medrol and doxycycline. Ceftazidime is admitted today. Patient has positive sputum culture. Chest x-ray is negative for infiltrate. Broadcalcitonin is negative. She is also on liquids 04/19/2023 Patient today is improving compared to yesterday as she has less wheezing and the secretion although not completely resolved I would estimate improvement by 30-40%. No significant respiratory distress at rest. Patient remains on IV salmeterol 60 mg and Eliquis 5 mg dose home Her sputum culture was growing stenotrphomonas, acute tracheobronchitis is suspected and patient was placed on doxycycline and ceftazidime 04/20/2023 Patient still on salmeterol 60 mg, doxycycline and ceftazidime She is improving slowly and gradually Still has wheezing Pulmonary input is appreciated 04/21/2023 Patient still with wheezing on examination and tachypnea while at rest, she is improving slowly and gradually However she is improving every day since she was started on antibiotic with doxycycline and ceftazidime We are assessing her response every day and she may be considered for discharge tomorrow if she keeps improvement. Patient that denies any other symptoms and Vitas looks stable. Continue with steroids on Medrol 60 mg 04/22/2023 Patient is not ready for discharge today although she is improving. She still have significant wheezing although it's better than yesterday We will check labs today We will reevaluate tomorrow for possible discharge. 04/23/2023 Patient still have significant wheezing and SECRETIONS, still complaining of from exertional dyspnea although her improvement is a slow and incomplete Therefore a shunt planned to undergo bronchoscopy tomorrow with BAL, Eliquis was held She's continue on salmeterol 60 mg and doxycycline and ceftazidime 04/24/2023 patient continued to improve slowly and gradually and she is taking a prolonged course of therapy. Patient will require bronchoscopy and BAL today with pulmonary team given her slow response to therapy Patient states that she she had bronchoscopy previously for similar indication 04/25/2023 Patient feels better slowly and gradually every day She is status post bronchoscopy and bronchoalveolar lavage yesterday Continued and salmeterol 60 mg and ceftazidime Lisinopril dose increased to 10 mg daily. Possible discharge in 24-48 hrs. Objective - Vital Signs Vital signs: Vital Signs Temp 98.1 F 04/25/23 14:00 Pulse 79 04/25/23 15:24 Resp 19 04/25/23 14:00 BP 149/55 04/25/23 14:00 Pulse Ox 91 L 04/25/23 14:00 FiO2 Intake & Output 04/25/23 04/25/23 04/26/23 06:59 18:59 06:59 Intake Total 418 Balance 418 Intake: Oral 418 Other: Voiding Method Bedside Commode Bedside Commode # Voids 2 4 - Exam GENERAL: The patient is alert and oriented x3, not in any acute distress. Well developed, well nourished. HEENT: Pupils are round and equally reacting to light. EOMI. No scleral icterus. No conjunctival pallor. Normocephalic, atraumatic. No pharyngeal erythema. No thyromegaly. CARDIOVASCULAR: S1 and S2 present. No murmurs, rubs, or gallops. PULMONARY: Chest is clear to auscultation, no wheezing . no crackles. ABDOMEN: Soft, nontender, nondistended, normoactive bowel sounds. No palpable organomegaly. MUSCULOSKELETAL: No joint swelling or deformity. EXTREMITIES: No cyanosis, clubbing, or pedal edema. NEUROLOGICAL: Gross neurological examination did not reveal any focal deficits. SKIN: No rashes. no petechiae. - Labs CBC & Chem 7: 04/22/23 15:51 04/22/23 15:51 Labs: Abnormal Lab Results - Last 24 Hours (Table) 04/24/23 04/24/23 04/25/23 Range/Units 12:00 20:07 06:17 POC Glucose (mg/dL) 142 H 124 H (70-110) mg/dL Fluid Appearance Turbid A (Clear) 04/25/23 04/25/23 Range/Units 11:41 17:44 POC Glucose (mg/dL) 165 H 149 H (70-110) mg/dL Fluid Appearance (Clear) Microbiology - Last 24 Hours (Table) 04/24/23 12:00 Gram Stain - Preliminary Bronchial Washings - Random Assessment and Plan Assessment: acute COPD exacerbation Acute tracheobronchitis is suspected with positive sputum culture Chronic hypoxic respiratory failure Mild transaminitis Paroxysmal atrial fibrillation on liquids Plan: Continuous IV Solu-Medrol 60 mg Continue with ceftazidime Continue with Eliquis Pulmonary team on the case Labs and medication were reviewed.. Continue same treatment. Continue with symptomatic treatment. Resume home medication. Monitor labs and vitals. DVT and GI prophylaxis. Further recommendations as per clinical course of the patient DVT prophylaxis: Eliquis GI Prophylaxis: Pepcid Prognosis is guarded
[2023-04-25 20:24] LABS: Glucose,Whole Blood 147 mg/dL (70-110)
[2023-04-26] MEDS: ALPRAZolam 0.5 MG TAB PO PRN (06:01)
[2023-04-26] MEDS: ALBUTEROL NEBULIZED 2.5 MG/3 ML INHALATION PRN (06:11)
[2023-04-26 06:14] LABS: Glucose,Whole Blood 98 mg/dL (70-110)
[2023-04-26] MEDS: INSULIN ASPART (NovoLOG) 100 UNIT/ML VIAL SQ SCH ×4 (06:19→20:33)
[2023-04-26] MEDS: ALBUTEROL NEBULIZED 2.5 MG/3 ML INHALATION SCH ×4 (07:10→19:06)
[2023-04-26] MEDS: SYMBICORT 160-4.5 MCG INHALER INHALATION SCH ×2 (07:10→19:15)
[2023-04-26] MEDS: FAMOTIDINE 20 MG TAB PO SCH ×2 (08:21→20:21)
[2023-04-26] MEDS: POTASSIUM CHLORIDE ER 10 MEQ TAB.ER.PRT PO SCH (08:21)
[2023-04-26] MEDS: amLODIPine 10 MG TAB PO SCH (08:21)
[2023-04-26] MEDS: predniSONE 20 MG TAB PO SCH (08:21)
[2023-04-26] MEDS: APIXABAN 5 MG TAB PO SCH ×2 (08:21→20:20)
[2023-04-26] MEDS: AMIODARONE 200 MG TAB PO SCH ×2 (08:21→20:21)
--- NOTE | 2023-04-26 11:49 | P.PN ---
Subjective Progress Note Date: 04/26/23 I am seeing this patient in new consultation today 04/14/2023 for a COPD exacerbation. Patient is a 67-year-old female with past medical history significant for severe oxygen dependent COPD with an FEV1 40% of predicted, atrial fibrillation anticoagulated with Eliquis, hypertension, hyperlipidemia, coronary artery disease with prior stent placement, CVA, brain aneurysms with previous clipping, GERD, and scoliosis. She does follow in the office for management of her severe COPD which she takes Symbicort inhaler and albuterol nebulizations. Her primary care provider is Dr. Juárez. Patient came to the emergency room yesterday afternoon complaining of shortness of breath and wheezing for the last 2 days. She also reports an associated cough with initially yellow sputum production, which is now clear. She denies any fever, chills, chest pain, hemoptysis. Denies sick contacts or recent travel. Patient is currently sitting up in bed, on 3 L nasal cannula, in no acute distress. She does utilize 3 L/m nasal cannula at home. She states that her breathing has improved since her admission. She is still quite bronchospastic on examination. Chest x-ray on arrival shows chronic COPD-like changes without any acute cardiopulmonary process. CBC and BMP on arrival were unremarkable. Patient does have some mild LFT elevation. Troponins were negative 1. Negative for influenza, RSV, COVID-19. Currently on empiric Rocephin. She is afebrile. Vital signs are stable. On today's evaluation of 07/26/2023, the patient remains bronchospastic wheezing and shortness of breath. Limited improvement since yesterday. She did experience some side effects to Perforomist and based on a combination Perforomist and Pulmicort will be discontinued and the patient will be started on Symbicort as maintenance. Otherwise, no new complaints for now. She'll be continued on albuterol neb treatments [id number] and IV Solu-Medrol. As mentioned, she remains actively bronchospastic and wheezy. No signs of any CO2 narcosis. Oxygen requirements remain unchanged and the patient remains on oxyg en at 3 L per minute nasal cannula. On today's evaluation of 04/16/2023, the patient is feeling slightly better compared to yesterday. No new complaints. Remains on broke about it since steroids. No new labs from today. Remains on IV Solu-Medrol 60 mg every 6 hours. She remains on oxygen at 2 L with a pulse ox of 98%. On today's evaluation of 04/17/2023, the patient is essentially untreated and the patient is still having cough congestion chest that is wheezing and minimal exercise capacity as the patient gets short of breath even while walking in her room. On 04/18/2023, patient is stable. No new complaints. She reports ongoing slow improvement. Labs from today are unchanged. Sodium is at 141 and a potassium level is at 4.2 that chloride of 103 and a bicarb of 30. BUN is at 24 and a creatinine is at 0.6. There is some mild transaminitis with AST of 51, LDL 127 and a alkaline phosphatase of 127. The sputum sample was positive for stenotrophomonas, the patient is ALLERGIC to sulfa. The patient will be started on IV Fortaz. I'm not sure this patient is infected. Nevertheless, based on her very borderline respiratory status and lack of recovery, I think is reasonable to cover this patient for underlying tracheobronchitis. 04/19/2023, no new complaints and the patient's condition is improving. She was started on IV antibiotics With IV Fortaz and the patient was found to have Pseudomonas in her sputum. I believe she is improving. She is on bronchodilators. She is on steroids patient is ambulating. No fever or chills. The patient is seen today 04/20/2023 in follow-up on the regular medical floor. She is awake and alert in no acute distress. She continues with a loose productive cough. Some end expiratory wheeze. She remains on Fortaz and doxycycline. Sputum culture was positive for stenotrophomonas maltophilia. Blood cultures revealed no growth. Blood glucose 157. Continued on Symbicort, albuterol, Singulair and Solu-Medrol. Anticoagulated with Eliquis. The patient is seen today 04/21/2023 in follow-up on the regular medical floor. She is currently sitting up at the bedside. Awake and alert in no acute distress. She is maintaining good O2 saturations in the mid 90s on 3 L/m per nasal cannula. Afebrile. Hemodynamically stable. Not quite back to her baseline. We'll continue with Symbicort, albuterol, IV Solu-Medrol. Antibi otics in the form of ceftazidime. Blood sugar 146. The patient is seen today 04/22/2023 in follow-up on the regular medical floor. She remains awake and alert in no acute distress. She has been slow to progress. Still not quite back to her baseline. Still with bronchospasm and wheezing. Maintaining good O2 saturations in the 90s on 3 L/m per nasal cannula. She's been afebrile. Sputum culture was positive for Stenotrophomonas maltophilia. Blood glucose 133. She remains on ceftazidime. Continued on Symbicort, albuterol, Solu-Medrol. The patient is seen today 04/23/2023 in follow-up on the regular medical floor. She is sitting up in bed. Awake and alert in no acute distress. She has been very slow to progress. Still coughing and congested. Still bronchus spastic and wheezing. Maintaining O2 saturations in the 90s on 3 L/m per nasal cannula. She's been afebrile. Sputum cultures positive for Stenotrophomonas maltophilia. Blood sugar 146. She is continued on Symbicort, albuterol, IV Solu-Medrol and Singulair. Antibiotics in the form of ceftazidime. Anticoagulated with Eliquis. We'll plan for bronchoscopy with BAL tomorrow. The patient is seen today 04/24/2023 in follow-up on the regular medical floor. She is currently resting comfortably in bed. Awake and alert in no acute distress. Continues with a loose nonproductive cough. Still some chest tightness and wheezing. Plan is for bronchoscopy with BAL today. She is continued on Symbicort, albuterol, Singulair, IV Solu-Medrol. Antibiotics in the form of ceftazidime for her sputum positive Stenotrophomonas maltophilia. Blood sugar 114. Eliquis currently on hold. The patient is seen today 04/25/2023 in follow-up on the regular medical floor. She is sitting up in bed. Awake and alert in no acute distress. Breathing much easier. She did undergo bronchoscopy with BAL yesterday. Many retained secretions were removed. She is continued on Symbicort, albuterol, IV Solu- Medrol. Remains on antibiotics in the form of ceftazidime for her Stenotrophomonas maltophilia. Anticoagulated with Eliquis. She remains anxious. She remains hypertensive. The patient is seen today 04/26/2023 in follow-up on the regular medical floor. She remains awake and alert in no acute distress. Breathing quite a bit better. Blood pressure improves. Maintaining good O2 saturations in the 90s on 3 L/m per nasal cannula. She is now planning on subacute rehabilitation due to her extended length of stay and weakness. Bronchial wash cultures were also positive for Stenotrophomonas maltophilia. She has completed one week of ceftazidime. His continued on Symbicort and albuterol, prednisone taper. Anticoagulated with Eliquis. Objective - Vital Signs Vital signs: Vital Signs Temp 99.5 F 04/26/23 08:00 Pulse 78 04/26/23 11:10 Resp 16 04/26/23 08:00 BP 153/71 04/26/23 08:00 Pulse Ox 93 L 04/26/23 08:00 FiO2 Intake & Output 04/25/23 04/26/23 04/26/23 18:59 06:59 18:59 Intake Total 418 118 Output Total 1 Balance 418 117 Intake: Oral 418 118 Output: Stool 1 Other: Voiding Method Bedside Commode Bedside Commode Bedside Commode # Voids 4 3 - Exam GENERAL EXAM: Alert, 67-year-old female, on 3 L nasal cannula, comfortable in no apparent distress. HEAD: Normocephalic. EYES: Normal reaction of pupils, equal size. NOSE: Clear with pink turbinates. THROAT: No erythema or exudates. NECK: No masses, no JVD. CHEST: No chest wall deformity. LUNGS: Equal air entry with few scattered rhonchi, wheeze, diminished. CVS: S1 and S2 normal with no audible murmur, regular rhythm. ABDOMEN: No hepatosplenomegaly, normal bowel sounds, no guarding or rigidity. SPINE: No scoliosis or deformity SKIN: No rashes CENTRAL NERVOUS SYSTEM: No focal deficits, tone is normal in all 4 extremities. EXTREMITIES: There is no peripheral edema. No clubbing, no cyanosis. Peripheral pulses are intact. - Labs CBC & Chem 7: 04/22/23 15:51 04/22/23 15:51 Labs: Abnormal Lab Results - Last 24 Hours (Table) 04/25/23 04/25/23 Range/Units 17:44 20:22 POC Glucose (mg/dL) 149 H 147 H (70-110) mg/dL Microbiology - Last 24 Hours (Table) 04/24/23 12:00 Gram Stain - Final Bronchial Washings - Random Bronchial Washings Culture - Final Stenotrophomonas maltophilia Assessment and Plan Assessment: Acute on chronic hypoxemic respiratory failure secondary to an acute exacerbation of chronic obstructive pulmonary disease. Chest x-ray shows no acute cardiopulmonary process or evidence of pneumonia. Negative for influenza, RSV, COVID-19. Bronchoscopy with BAL completed 04/24/2023. Cultures revealing stenotrophomonas maltophilia. Completed a course of Fortaz. Chronic hypoxemic respiratory failure, on 3 L/m nasal cannula, FEV1 value 40% of predicted History of atrial fibrillation, currently anticoagulated on Eliquis, in normal sinus rhythm Essential hypertension Hyperlipidemia Coronary artery disease, with prior stent placement History of CVA/TIA History of brain aneurysm status post clipping GERD without esophagitis Scoliosis Ex-smoker, no smoking for 3 years Plan: The patient was seen and evaluated Medications and cultures reviewed Positive for Stenotrophomonas maltophilia Continued on Fortaz We will switch to Levaquin at discharge Plan now is for possible subacute rehabilitation I have personally seen and examined the patient, performed the documentation and the assessment and plan as written. Number of minutes spent on the visit: 10.
[2023-04-26 12:15] LABS: Glucose,Whole Blood 115 mg/dL (70-110)
--- NOTE | 2023-04-26 13:52 | P.PN ---
Subjective This is a pleasant 67 years old female with acute COPD exacerbation with significant history of paroxysmal atrial fibrillation on liquids Patient currently not hypoxic, on home dose of oxygen through the car per minute, she is mildly tachypneic at rest but she has decreased air entry and significant wheezing She remains on ampicillin Medrol 60 mg, also from gastrostomy and is negative at 0.09. DC ceftriaxone. Patient on doxycycline for COPD. 04/18/2023 Wheezing today still present but looks slightly better. She is kept on IV Solu-Medrol and doxycycline. Ceftazidime is admitted today. Patient has positive sputum culture. Chest x-ray is negative for infiltrate. Broadcalcitonin is negative. She is also on liquids 04/19/2023 Patient today is improving compared to yesterday as she has less wheezing and the secretion although not completely resolved I would estimate improvement by 30-40%. No significant respiratory distress at rest. Patient remains on IV salmeterol 60 mg and Eliquis 5 mg dose home Her sputum culture was growing stenotrphomonas, acute tracheobronchitis is suspected and patient was placed on doxycycline and ceftazidime 04/20/2023 Patient still on salmeterol 60 mg, doxycycline and ceftazidime She is improving slowly and gradually Still has wheezing Pulmonary input is appreciated 04/21/2023 Patient still with wheezing on examination and tachypnea while at rest, she is improving slowly and gradually However she is improving every day since she was started on antibiotic with doxycycline and ceftazidime We are assessing her response every day and she may be considered for discharge tomorrow if she keeps improvement. Patient that denies any other symptoms and Vitas looks stable. Continue with steroids on Medrol 60 mg 04/22/2023 Patient is not ready for discharge today although she is improving. She still have significant wheezing although it's better than yesterday We will check labs today We will reevaluate tomorrow for possible discharge. 04/23/2023 Patient still have significant wheezing and SECRETIONS, still complaining of from exertional dyspnea although her improvement is a slow and incomplete Therefore a shunt planned to undergo bronchoscopy tomorrow with BAL, Eliquis was held She's continue on salmeterol 60 mg and doxycycline and ceftazidime 04/24/2023 patient continued to improve slowly and gradually and she is taking a prolonged course of therapy. Patient will require bronchoscopy and BAL today with pulmonary team given her slow response to therapy Patient states that she she had bronchoscopy previously for similar indication 04/25/2023 Patient feels better slowly and gradually every day She is status post bronchoscopy and bronchoalveolar lavage yesterday Continued and salmeterol 60 mg and ceftazidime Lisinopril dose increased to 10 mg daily. Possible discharge in 24-48 hrs. 04/26/2023 Patient much improved after the buckle of patch done yesterday Wheezing is less extensive and better air entry and exit through his lungs. Patient kept on IV antibiotics ceftazidime with the plan to change to fluoroquinolones upon discharge. Patient feels just generally weak and she would benefit from subacute rehab upon discharge Possible discharge in 24-48 hours Eliquis resumed Objective - Vital Signs Vital signs: Vital Signs Temp 99.5 F 04/26/23 08:00 Pulse 78 04/26/23 11:10 Resp 16 04/26/23 08:00 BP 153/71 04/26/23 08:00 Pulse Ox 93 L 04/26/23 08:00 FiO2 Intake & Output 04/25/23 04/26/23 04/26/23 18:59 06:59 18:59 Intake Total 418 118 Output Total 1 Balance 418 117 Intake: Oral 418 118 Output: Stool 1 Other: Voiding Method Bedside Commode Bedside Commode Bedside Commode # Voids 4 3 - Exam GENERAL: The patient is alert and oriented x3, not in any acute distress. Well developed, well nourished. HEENT: Pupils are round and equally reacting to light. EOMI. No scleral icterus. No conjunctival pallor. Normocephalic, atraumatic. No pharyngeal erythema. No thyromegaly. CARDIOVASCULAR: S1 and S2 present. No murmurs, rubs, or gallops. PULMONARY: Chest is clear to auscultation, no wheezing . no crackles. ABDOMEN: Soft, nontender, nondistended, normoactive bowel sounds. No palpable organomegaly. MUSCULOSKELETAL: No joint swelling or deformity. EXTREMITIES: No cyanosis, clubbing, or pedal edema. NEUROLOGICAL: Gross neurological examination did not reveal any focal deficits. SKIN: No rashes. no petechiae. - Labs CBC & Chem 7: 04/22/23 15:51 04/22/23 15:51 Labs: Abnormal Lab Results - Last 24 Hours (Table) 04/25/23 04/25/23 04/26/23 Range/Units 17:44 20:22 12:14 POC Glucose (mg/dL) 149 H 147 H 115 H (70-110) mg/dL Microbiology - Last 24 Hours (Table) 04/24/23 12:00 Gram Stain - Final Bronchial Washings - Random Bronchial Washings Culture - Final Stenotrophomonas maltophilia Assessment and Plan Assessment: acute COPD exacerbation Acute tracheobronchitis is suspected with positive sputum culture Chronic hypoxic respiratory failure Mild transaminitis Paroxysmal atrial fibrillation on liquids Plan: Continuous IV Solu-Medrol 60 mg Continue with ceftazidime Continue with Eliquis Pulmonary team on the case Labs and medication were reviewed.. Continue same treatment. Continue with symptomatic treatment. Resume home medication. Monitor labs and vitals. DVT and GI prophylaxis. Further recommendations as per clinical course of the patient DVT prophylaxis: Eliquis GI Prophylaxis: Pepcid Prognosis is guarded Possible discharge in 24-48 hours. Patient may benefit from subacute rehab
[2023-04-26 17:06] LABS: Glucose,Whole Blood 143 mg/dL (70-110)
[2023-04-26] MEDS: MONTELUKAST 10 MG TAB PO SCH (20:20)
[2023-04-26] MEDS: ATORVASTATIN 80 MG TAB PO SCH (20:21)
[2023-04-26] MEDS: lisinopriL 10 MG TAB PO SCH (20:21)
[2023-04-26 20:28] LABS: Glucose,Whole Blood 141 mg/dL (70-110)
[2023-04-27] MEDS: ALBUTEROL NEBULIZED 2.5 MG/3 ML INHALATION PRN (03:53)
[2023-04-27 06:23] LABS: Glucose,Whole Blood 93 mg/dL (70-110)
[2023-04-27] MEDS: INSULIN ASPART (NovoLOG) 100 UNIT/ML VIAL SQ SCH ×2 (06:36→12:25)
[2023-04-27 07:25] VITALS: BP 142/61; RESP 18; TEMP 98.9
[2023-04-27] MEDS: ALBUTEROL NEBULIZED 2.5 MG/3 ML INHALATION SCH ×3 (07:46→15:11)
[2023-04-27] MEDS: SYMBICORT 160-4.5 MCG INHALER INHALATION SCH (07:46)
[2023-04-27] MEDS: POTASSIUM CHLORIDE ER 10 MEQ TAB.ER.PRT PO SCH (08:34)
[2023-04-27] MEDS: APIXABAN 5 MG TAB PO SCH (08:35)
[2023-04-27] MEDS: predniSONE 20 MG TAB PO SCH (08:35)
[2023-04-27] MEDS: AMIODARONE 200 MG TAB PO SCH (08:35)
[2023-04-27] MEDS: ALPRAZolam 0.5 MG TAB PO PRN ×2 (08:35→15:48)
[2023-04-27] MEDS: amLODIPine 10 MG TAB PO SCH (08:35)
[2023-04-27] MEDS: FAMOTIDINE 20 MG TAB PO SCH (08:35)
[2023-04-27 08:36] LABS: Nucleated Cells, Body Fluid 475 X 10*3/uL
--- NOTE | 2023-04-27 11:28 | P.PN ---
Subjective Progress Note Date: 04/27/23 I am seeing this patient in new consultation today 04/14/2023 for a COPD exacerbation. Patient is a 67-year-old female with past medical history significant for severe oxygen dependent COPD with an FEV1 40% of predicted, atrial fibrillation anticoagulated with Eliquis, hypertension, hyperlipidemia, coronary artery disease with prior stent placement, CVA, brain aneurysms with previous clipping, GERD, and scoliosis. She does follow in the office for management of her severe COPD which she takes Symbicort inhaler and albuterol nebulizations. Her primary care provider is Dr. Juárez. Patient came to the emergency room yesterday afternoon complaining of shortness of breath and wheezing for the last 2 days. She also reports an associated cough with initially yellow sputum production, which is now clear. She denies any fever, chills, chest pain, hemoptysis. Denies sick contacts or recent travel. Patient is currently sitting up in bed, on 3 L nasal cannula, in no acute distress. She does utilize 3 L/m nasal cannula at home. She states that her breathing has improved since her admission. She is still quite bronchospastic on examination. Chest x-ray on arrival shows chronic COPD-like changes without any acute cardiopulmonary process. CBC and BMP on arrival were unremarkable. Patient does have some mild LFT elevation. Troponins were negative 1. Negative for influenza, RSV, COVID-19. Currently on empiric Rocephin. She is afebrile. Vital signs are stable. On today's evaluation of 07/26/2023, the patient remains bronchospastic wheezing and shortness of breath. Limited improvement since yesterday. She did experience some side effects to Perforomist and based on a combination Perforomist and Pulmicort will be discontinued and the patient will be started on Symbicort as maintenance. Otherwise, no new complaints for now. She'll be continued on albuterol neb treatments [id number] and IV Solu-Medrol. As mentioned, she remains actively bronchospastic and wheezy. No signs of any CO2 narcosis. Oxygen requirements remain unchanged and the patient remains on oxyg en at 3 L per minute nasal cannula. On today's evaluation of 04/16/2023, the patient is feeling slightly better compared to yesterday. No new complaints. Remains on broke about it since steroids. No new labs from today. Remains on IV Solu-Medrol 60 mg every 6 hours. She remains on oxygen at 2 L with a pulse ox of 98%. On today's evaluation of 04/17/2023, the patient is essentially untreated and the patient is still having cough congestion chest that is wheezing and minimal exercise capacity as the patient gets short of breath even while walking in her room. On 04/18/2023, patient is stable. No new complaints. She reports ongoing slow improvement. Labs from today are unchanged. Sodium is at 141 and a potassium level is at 4.2 that chloride of 103 and a bicarb of 30. BUN is at 24 and a creatinine is at 0.6. There is some mild transaminitis with AST of 51, LDL 127 and a alkaline phosphatase of 127. The sputum sample was positive for stenotrophomonas, the patient is ALLERGIC to sulfa. The patient will be started on IV Fortaz. I'm not sure this patient is infected. Nevertheless, based on her very borderline respiratory status and lack of recovery, I think is reasonable to cover this patient for underlying tracheobronchitis. 04/19/2023, no new complaints and the patient's condition is improving. She was started on IV antibiotics With IV Fortaz and the patient was found to have Pseudomonas in her sputum. I believe she is improving. She is on bronchodilators. She is on steroids patient is ambulating. No fever or chills. The patient is seen today 04/20/2023 in follow-up on the regular medical floor. She is awake and alert in no acute distress. She continues with a loose productive cough. Some end expiratory wheeze. She remains on Fortaz and doxycycline. Sputum culture was positive for stenotrophomonas maltophilia. Blood cultures revealed no growth. Blood glucose 157. Continued on Symbicort, albuterol, Singulair and Solu-Medrol. Anticoagulated with Eliquis. The patient is seen today 04/21/2023 in follow-up on the regular medical floor. She is currently sitting up at the bedside. Awake and alert in no acute distress. She is maintaining good O2 saturations in the mid 90s on 3 L/m per nasal cannula. Afebrile. Hemodynamically stable. Not quite back to her baseline. We'll continue with Symbicort, albuterol, IV Solu-Medrol. Antibi otics in the form of ceftazidime. Blood sugar 146. The patient is seen today 04/22/2023 in follow-up on the regular medical floor. She remains awake and alert in no acute distress. She has been slow to progress. Still not quite back to her baseline. Still with bronchospasm and wheezing. Maintaining good O2 saturations in the 90s on 3 L/m per nasal cannula. She's been afebrile. Sputum culture was positive for Stenotrophomonas maltophilia. Blood glucose 133. She remains on ceftazidime. Continued on Symbicort, albuterol, Solu-Medrol. The patient is seen today 04/23/2023 in follow-up on the regular medical floor. She is sitting up in bed. Awake and alert in no acute distress. She has been very slow to progress. Still coughing and congested. Still bronchus spastic and wheezing. Maintaining O2 saturations in the 90s on 3 L/m per nasal cannula. She's been afebrile. Sputum cultures positive for Stenotrophomonas maltophilia. Blood sugar 146. She is continued on Symbicort, albuterol, IV Solu-Medrol and Singulair. Antibiotics in the form of ceftazidime. Anticoagulated with Eliquis. We'll plan for bronchoscopy with BAL tomorrow. The patient is seen today 04/24/2023 in follow-up on the regular medical floor. She is currently resting comfortably in bed. Awake and alert in no acute distress. Continues with a loose nonproductive cough. Still some chest tightness and wheezing. Plan is for bronchoscopy with BAL today. She is continued on Symbicort, albuterol, Singulair, IV Solu-Medrol. Antibiotics in the form of ceftazidime for her sputum positive Stenotrophomonas maltophilia. Blood sugar 114. Eliquis currently on hold. The patient is seen today 04/25/2023 in follow-up on the regular medical floor. She is sitting up in bed. Awake and alert in no acute distress. Breathing much easier. She did undergo bronchoscopy with BAL yesterday. Many retained secretions were removed. She is continued on Symbicort, albuterol, IV Solu- Medrol. Remains on antibiotics in the form of ceftazidime for her Stenotrophomonas maltophilia. Anticoagulated with Eliquis. She remains anxious. She remains hypertensive. The patient is seen today 04/26/2023 in follow-up on the regular medical floor. She remains awake and alert in no acute distress. Breathing quite a bit better. Blood pressure improves. Maintaining good O2 saturations in the 90s on 3 L/m per nasal cannula. She is now planning on subacute rehabilitation due to her extended length of stay and weakness. Bronchial wash cultures were also positive for Stenotrophomonas maltophilia. She has completed one week of ceftazidime. His continued on Symbicort and albuterol, prednisone taper. Anticoagulated with Eliquis. The patient is seen today 04/27/2023 in follow-up on the regular medical floor. She is currently sitting up in bed. Awake and alert in no acute distress. Maintaining good O2 saturations in the 90s on 4 L/m per nasal cannula. She's been afebrile. Hemodynamically stable. Sputum and bronchial wash cultures were positive stenotrophomonas maltophilia. She has been maintained on ceftaz edema. Remains on Symbicort, albuterol, Singulair and a prednisone taper. Anticoagul ated with Eliquis. Objective - Vital Signs Vital signs: Vital Signs Temp 98.9 F 04/27/23 07:25 Pulse 68 04/27/23 08:02 Resp 18 04/27/23 07:25 BP 142/61 04/27/23 07:25 Pulse Ox 94 L 04/27/23 07:46 FiO2 Intake & Output 04/26/23 04/27/23 04/27/23 18:59 06:59 18:59 Intake Total 236 118 Output Total 1 Balance 235 118 Intake: Oral 236 118 Output: Stool 1 Other: Voiding Method Bedside Commode Bedside Commode External Catheter # Voids 1 0 - Exam GENERAL EXAM: Alert, pleasant 67-year-old female, resting in bed, on 4 L nasal cannula, comfortable in no apparent distress. HEAD: Normocephalic. EYES: Normal reaction of pupils, equal size. NOSE: Clear with pink turbinates. THROAT: No erythema or exudates. NECK: No masses, no JVD. CHEST: No chest wall deformity. LUNGS: Equal air entry with few scattered rhonchi, wheeze, diminished. CVS: S1 and S2 normal with no audible murmur, regular rhythm. ABDOMEN: No hepatosplenomegaly, normal bowel sounds, no guarding or rigidity. SPINE: No scoliosis or deformity SKIN: No rashes CENTRAL NERVOUS SYSTEM: No focal deficits, tone is normal in all 4 extremities. EXTREMITIES: There is no peripheral edema. No clubbing, no cyanosis. Peripheral pulses are intact. - Labs CBC & Chem 7: 04/22/23 15:51 04/22/23 15:51 Labs: Abnormal Lab Results - Last 24 Hours (Table) 04/26/23 04/26/23 04/26/23 Range/Units 12:14 17:05 20:26 POC Glucose (mg/dL) 115 H 143 H 141 H (70-110) mg/dL Microbiology - Last 24 Hours (Table) 04/24/23 12:00 Gram Stain - Final Bronchial Washings - Random Bronchial Washings Culture - Final Stenotrophomonas maltophilia Assessment and Plan Assessment: Acute on chronic hypoxemic respiratory failure secondary to an acute exacerbation of chronic obstructive pulmonary disease. Chest x-ray shows no acute cardiopulmonary process or evidence of pneumonia. Negative for influenza, RSV, COVID-19. Bronchoscopy with BAL completed 04/24/2023. Cultures revealing stenotrophomonas maltophilia. Completed a course of Fortaz. Chronic hypoxemic respiratory failure, on 3 L/m nasal cannula, FEV1 value 40% of predicted History of atrial fibrillation, currently anticoagulated on Eliquis, in normal sinus rhythm Essential hypertension Hyperlipidemia Coronary artery disease, with prior stent placement History of CVA/TIA History of brain aneurysm status post clipping GERD without esophagitis Scoliosis Ex-smoker, no smoking for 3 years Plan: The patient was seen and evaluated Medications and cultures reviewed Cleared for discharge from the pulmonary standpoint Completed a course of antibiotics Continue her home pulmonary medications, oxygen Complete a prednisone taper I have personally seen and examined the patient, performed the documentation and the assessment and plan as written. Number of minutes spent on the visit: 10.
[2023-04-27 11:34] LABS: Glucose,Whole Blood 142 mg/dL (70-110)
--- NOTE | 2023-04-27 12:49 | P.DS ---
Providers Date of admission: 04/14/23 15:03 Attending physician: Delroy Alfaro MD Consults: 04/13/23 16:15 Consult Physician Routine Consulting Provider: Uma Artis Consult Reason/Comments: copd Do you want consulting provider notified?: Yes Primary care physician: [facility] Course: diagnoses: acute COPD exacerbation Acute tracheobronchitis is suspected with positive sputum culture Chronic hypoxic respiratory failure Mild transaminitis Paroxysmal atrial fibrillation on [facility] course: This is a pleasant 67 years old female with acute COPD exacerbation with significant history of paroxysmal atrial fibrillation on [facility] She presents because of severe acute COPD exacerbation associated with a lot of secretions and extensive wheezing found secondary to acute tracheobronchitis secondary to stenotrphomonas (2 cultures) one of them after she underwent bronchoscopy and bronchoalveolar lavage which helped her a lot and hasten her healing. From yesterday there was significant improvement down close to her baseline and she would be considered for discharge. Today she still feeling fine, breathing is stable and improving, no chest pain no significant coughing. No other neurological GI or urinary complaints. However patient very weak after prolonged course of therapy and extensive infection and medication effect. Patient agrees to go to rehab. Patient was cleared for discharge by stave bolt equalizer. Problems and management plan were discussed with the patient and he verbalized understanding and acceptance Patient was found stable and can be discharged home in guarded prognosis however he needs follow-up as an outpatient. Patient was instructed to follow up with PCP Dr. Campos within one week and patient agrees We recommend patient follow up with her stave bolt equalizer Dr. Artis in 2-3 weeks after discharge and she is agreeable Physical exam Gen: patient is a AAOx3, no distress CVS: S1-S2, RRR, no murmur Lungs: B/L CTA, mild bilateral scattered wheezing Abdomen: soft, no distention, no tenderness, positive bowel sounds Extremity: no leg edema or induration Time spent more than 35 minutes Plan - Discharge Summary New Discharge Prescriptions: No Action Famotidine [Pepcid] 20 mg PO BID Budesonide/Formoterol Fumarate [Symbicort 160-4.5 Mcg Inhaler] 2 puff INHALATION RT-BID Amiodarone [Cordarone] 200 mg PO BID Atorvastatin [Lipitor] 80 mg PO HS Potassium Chloride [Klor-Con 10 ER] 10 meq PO DAILY Montelukast [Singulair] 10 mg PO HS Apixaban [Eliquis] 5 mg PO BID lisinopriL [Zestril] 5 mg PO HS Albuterol Nebulized [Ventolin Nebulized] 2.5 mg INHALATION RT-QID Discharge Medication List Famotidine [Pepcid] 20 mg PO BID 08/04/20 [History] Amiodarone [Cordarone] 200 mg PO BID 02/27/21 [History] Apixaban [Eliquis] 5 mg PO BID 02/27/21 [History] Budesonide/Formoterol Fumarate [Symbicort 160-4.5 Mcg Inhaler] 2 puff INHALATION RT-BID 02/27/21 [History] Montelukast [Singulair] 10 mg PO HS 02/27/21 [History] Atorvastatin [Lipitor] 80 mg PO HS 02/06/22 [History] Potassium Chloride [Klor-Con 10 ER] 10 meq PO DAILY 02/06/22 [History] lisinopriL [Zestril] 5 mg PO HS 02/06/22 [History] Albuterol Nebulized [Ventolin Nebulized] 2.5 mg INHALATION RT-QID 12/08/22 [History] Follow up Appointment(s)/Referral(s): Tello Juárez MD [Primary Care Provider] - 1-2 days Uma Artis MD [STAFF PHYSICIAN] - 05/14/23 1:00 pm
[2023-04-27 15:14] VITALS: PULSE 72
== END 2023-04-27 15:52 | DRG 190 ==
LOC: EC 14:12 → 6NMEDSUR 17:05 → OBSVTOIN 04-14 15:03 → 6NMEDSUR 04-23 02:52
PROVIDERS: ADMIT Internal Medicine; ATTEND Internal Medicine
PROC: 0B9J8ZZ Drainage of Left Lower Lung Lobe, Via Natural or Artificial Opening Endoscopic (ICD-10-PCS; principal; 2023-04-24 07:30)
PROC: 0B9F8ZZ Drainage of Right Lower Lung Lobe, Via Natural or Artificial Opening Endoscopic (ICD-10-PCS; principal; 2023-04-24 07:30)
PROC: 0B9H8ZZ Drainage of Lung Lingula, Via Natural or Artificial Opening Endoscopic (ICD-10-PCS; principal; 2023-04-24 07:30)
PROC: 0B9C8ZZ Drainage of Right Upper Lung Lobe, Via Natural or Artificial Opening Endoscopic (ICD-10-PCS; principal; 2023-04-24 07:30)
DX: J44.0 Chronic obstructive pulmonary disease with (acute) lower respiratory infection (principal); J96.21 Acute and chronic respiratory failure with hypoxia; J20.8 Acute bronchitis due to other specified organisms; J44.1 Chronic obstructive pulmonary disease with (acute) exacerbation; E78.5 Hyperlipidemia, unspecified; Z87.891 Personal history of nicotine dependence; I25.10 Atherosclerotic heart disease of native coronary artery without angina pectoris; Z95.5 Presence of coronary angioplasty implant and graft; Z60.2 Problems related to living alone; F32.A Depression, unspecified; R74.01 Elevation of levels of liver transaminase levels; I48.0 Paroxysmal atrial fibrillation; K21.9 Gastro-esophageal reflux disease without esophagitis; M41.9 Scoliosis, unspecified; Z79.01 Long term (current) use of anticoagulants; Z99.81 Dependence on supplemental oxygen; G89.29 Other chronic pain; Z86.16 Personal history of COVID-19; M15.9 Polyosteoarthritis, unspecified; Z20.822 Contact with and (suspected) exposure to COVID-19; I25.2 Old myocardial infarction; Z79.51 Long term (current) use of inhaled steroids; J30.2 Other seasonal allergic rhinitis; Q24.9 Congenital malformation of heart, unspecified; Z79.899 Other long term (current) drug therapy; Z71.3 Dietary counseling and surveillance; Z86.79 Personal history of other diseases of the circulatory system; Z86.73 Personal history of transient ischemic attack (TIA), and cerebral infarction without residual deficits; Z82.49 Family history of ischemic heart disease and other diseases of the circulatory system; Z98.1 Arthrodesis status; Z88.6 Allergy status to analgesic agent; Z88.2 Allergy status to sulfonamides; Z88.8 Allergy status to other drugs, medicaments and biological substances; Z87.01 Personal history of pneumonia (recurrent)
CPT/HCPCS: 31624; 36415; 71045; 71046; 80048; 80053; 80076; 82803; 83605; 83735; 84145; 84484; 85025; 85610; 85730; 87040; 87070; 87077; 87102; 87116; 87186; 87205; 87206; 87252; 87636; 88108; 88305; 89050; 93005; 94640; 94760; 99285

== ENCOUNTER 2023-07-27 12:33 | Inpatient (IN) | payer MEDICARE, OTHER ==
[2023-07-27] MEDS ORDERED: ALBUTEROL NEBULIZED 2.5 MG/3 ML INHALATION STA (12:50)
[2023-07-27] MEDS ORDERED: IPRATROPIUM 0.5 MG/2.5 ML NEBU INHALATION STA (12:50)
--- NOTE | 2023-07-27 12:53 | ED ---
General Adult HPI - General Chief complaint: Shortness of Breath Stated complaint: SOB,AFIB Time Seen by Provider: 07/27/23 12:45 Source: patient, RN notes reviewed, old records reviewed Mode of arrival: wheelchair - History of Present Illness Initial comments: This is a 68-year-old female who presents emergency Department stating that she woke up this morning having difficulty breathing. Patient states she's been also coughing up quite a bit of clear phlegm which is more than normal. Patient denies any fever chills. Patient denies any chest pain. Patient denies any grazyna k pain. Patient's headache patient denies numbness weakness. Patient denies any lightheadedness or dizziness. Patient states normally when she gets this bad she goes to see Dr. Artis but it was too late this morning so she came to the emergency department. - Related Data Home Medications Medication Instructions Recorded Confirmed Famotidine [Pepcid] 20 mg PO BID 08/04/20 07/27/23 Apixaban [Eliquis] 5 mg PO BID 02/27/21 07/27/23 Montelukast [Singulair] 10 mg PO HS 02/27/21 07/27/23 Atorvastatin [Lipitor] 80 mg PO HS 02/06/22 07/27/23 Potassium Chloride [Klor-Con 10 ER] 10 meq PO DAILY 02/06/22 07/27/23 Albuterol Nebulized [Ventolin 2.5 mg INHALATION RT-QID 12/08/22 07/27/23 Nebulized] Albuterol Sulfate [Albuterol 2 puff PO RT-QID PRN 07/27/23 07/27/23 Sulfate Hfa] Amiodarone [Cordarone] 200 mg PO HS 07/27/23 07/27/23 Ezetimibe [Zetia] 10 mg PO HS 07/27/23 07/27/23 Fluticasone/Umeclidin/Vilanter 1 puff INHALATION RT-DAILY 07/27/23 07/27/23 [Trelegy Ellipta 100-62.5-25] lisinopriL [Zestril] 5 mg PO HS 07/27/23 07/27/23 Allergies Allergy/AdvReac Type Severity Reaction Status Date / Time naproxen [From Naprosyn] Allergy Anaphylaxis Verified 07/27/23 14:32 Sulfa (Sulfonamide Allergy Anaphylaxis Verified 07/27/23 14:32 Antibiotics) azithromycin [From Zithromax] AdvReac does not Verified 07/27/23 14:32 take due to A-Fib Review of Systems ROS Statement: Those systems with pertinent positive or pertinent negative responses have been documented in the HPI. ROS Other: All systems not noted in ROS Statement are negative. Past Medical History Past Medical History: Atrial Fibrillation, Asthma, Coronary Artery Disease (CAD), COPD, CVA/TIA, GERD/Reflux, Hyperlipidemia, Myocardial Infarction ([place]), Osteoarthritis (OA), Vascular Disorder Additional Past Medical History / Comment(s): Pt tested covid + 01/30/21 [facility] ER. Pt recently admitted to [facility] on 01/08/21 with acute on chronic respiratory failure/tracheobronchitis severe or bronchopneumonia. 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 Last Myocardial Infarction Date:: 10/19/2019 History of Any Multi-Drug Resistant Organisms: None Reported Past Surgical History: Heart Catheterization With Stent, Orthopedic Surgery, Tubal Ligation Additional Past Surgical History / Comment(s): 2019 PCI/stent R PDA, 2000 angiogram/brain aneurysum that is clipped, abdominal aortogram with R common iliac artery PTBA/stent, left shoulder rotator cuff repair, spine lumbar disc 3x fused Past Anesthesia/Blood Transfusion Reactions: No Reported Reaction Date of Last Stent Placement:: 10/19/19 Past Psychological History: Anxiety, Depression Smoking Status: Former smoker Past Alcohol Use History: None Reported Past Drug Use History: None Reported - Past Family History Father Family Medical History: Coronary Artery Disease (CAD), Diabetes Mellitus Additional Family Medical History / Comment(s): Father had 3 vessel CABG. He at the age of 69 from heart disease. Mother Family Medical History: Myocardial Infarction ([place]) Additional Family Medical History / Comment(s): Mother of a [place] at the age of 42 yrs. General Exam - General Exam Comments Initial Comments: GENERAL: Patient is well-developed and well-nourished. Patient is nontoxic and well- hydrated and is in mild distress. ENT: Neck is soft and supple. No significant lymphadenopathy is noted. Oropharynx is clear. Moist mucous membranes. Neck has full range of motion without eliciting any pain. EYES: The sclera were anicteric and conjunctiva were pink and moist. Extraocular movements were intact and pupils were equal round and reactive to light. Eyelids were unremarkable. PULMONARY: Unlabored respirations. Good breath sounds bilaterally. Patient has diffuse rhonchi CARDIOVASCULAR: There is a regular rate and rhythm without any murmurs gallops or rubs. ABDOMEN: Soft and nontender with normal bowel sounds. No palpable organomegaly was noted. There is no palpable pulsatile mass. SKIN: Skin is clear with no lesions or rashes and otherwise unremarkable. NEUROLOGIC: Patient is alert and oriented x3. Cranial nerves II through XII are grossly intact. Motor and sensory are also intact. Normal speech, volume and content. Symmetrical smile. MUSCULOSKELETAL: Normal extremities with adequate strength and full range of motion. Patient has swelling of the right ankle there is no calf tenderness LYMPHATICS: No significant lymphadenopathy is noted PSYCHIATRIC: Normal psychiatric evaluation. Course Vital Signs 07/27/23 07/27/23 07/27/23 12:38 14:38 14:40 Temperature 97.7 F Pulse Rate 75 66 64 Respiratory 22 20 Rate Blood Pressure 145/64 165/63 O2 Sat by Pulse 95 98 Oximetry 07/27/23 14:50 Temperature Pulse Rate 68 Respiratory Rate Blood Pressure O2 Sat by Pulse Oximetry Medical Decision Making - Medical Decision Making EKG is interpreted by myself. EKG shows a sinus rhythm at 72 bpm ID interval is 210 QRS is 149 QT intervals 447 QTC is 471. Patient's EKG shows a right bundle branch block is no ST segment Was pt. sent in by a medical professional or institution (, PA, LINING REPAIRER, urgent care, hospital, or assisted...) When possible be specific @ -No Did you speak to anyone other than the patient for history (EMS, parent, family, police, friend...)? What history was obtained from this source @ -No Did you review nursing and triage notes (agree or disagree)? Why? @ -I reviewed and agree with nursing and triage notes Were old charts reviewed (outside hosp., previous admission, EMS record, old EKG, old radiological studies, urgent care reports/EKG's, assisted records)? Report findings @ -I reviewed prior charts in prior lab work as well as prior radiological studies Differential Diagnosis (chest pain, altered mental status, abdominal pain women, abdominal pain men, vaginal bleeding, weakness, fever, dyspnea, syncope, headache, dizziness, GI bleed, back pain, seizure, CVA, palpatations, mental health, musculoskeletal)? @ -Differential Dyspnea: Coronary syndrome, arrhythmia, tamponade, asthma, COPD, pulmonary embolism, pneumonia, pneumothorax, pulmonary effusion, anaphylaxis, diabetic ketoacidosis, flailed chest, pulmonary contusion, diaphragmatic rupture, anemia, neuromuscular, this is not meant to be an all-inclusive list. EKG interpreted by me (3pts min.). @ -As above X-rays interpreted by me (1pt min.). @ -Chest x-ray shows COPD no acute abnormality CT interpreted by me (1pt min.). @ -None done U/S interpreted by me (1pt. min.). @ -None done What testing was considered but not performed or refused? (CT, X-rays, U/S, labs)? Why? @ -None What meds were considered but not given or refused? Why? @ -None Did you discuss the management of the patient with other professionals (professionals i.e. , PA, LINING REPAIRER, lab, RT, psych nurse, mental health social worker, product merchandiser, teacher, chief quality officer, immigration case worker)? Give summary @ -. I spoke with Dr. Alfaro he agreed to admit the patient I admitted the patient wrote admitting orders Was smoking cessation discussed for >3mins.? @ -No Was critical care preformed (if so, how long)? @ -No Were there social determinants of health that impacted care today? How? (Homelessness, low income, unemployed, alcoholism, drug addiction, transportation, low edu. Level, literacy, decrease access to med. care, halfway, rehab)? @ -No Was there de-escalation of care discussed even if they declined (Discuss DNR or withdrawal of care, Hospice)? DNR status @ -No What co-morbidities impacted this encounter? (DM, HTN, Smoking, COPD, CAD, Cancer, CVA, ARF, Chemo, Hep., AIDS, mental health diagnosis, sleep apnea, morbid obesity)? @ -None Was patient admitted / discharged? Hospital course, mention meds given and route, prescriptions, significant lab abnormalities, going to OR and other pertinent info. @ -To breathing treatments while in the emergency department and continued to be short of breath and sound very rhonchorous. Patient also was given antibiotics and steroids in the emergency department. Spoke with Dr. Alfaro he agreed to admit the patient admitted the patient wrote admitting orders I did consult pulmonary Undiagnosed new problem with uncertain prognosis? @ -No Drug Therapy requiring intensive monitoring for toxicity (Heparin, Nitro, Insulin, Cardizem)? @ -No Were any procedures done? @ -No Diagnosis/symptom? @ -COPD exacerbation Acute, or Chronic, or Acute on Chronic? @ -Acute Uncomplicated (without systemic symptoms) or Complicated (systemic symptoms)? @ -Complicated Side effects of treatment? @ -No Exacerbation, Progression, or Severe Exacerbation? @ -No Poses a threat to life or bodily function? How? (Chest pain, [place], HI, pneumonia, PE, COPD, DKA, ARF, appy, cholecystitis, CVA, Diverticulitis, Homicidal, Suicidal, threat to staff... and all critical care pts) @ -Yes this could lead to hypoxia and in the organ dysfunction - Lab Data Result diagrams: 07/27/23 13:19 07/27/23 13:19 Lab Results 07/27/23 07/27/23 07/27/23 Range/Units 13:19 13:19 13:19 WBC 7.8 (3.8-10.6) k/uL RBC 4.00 (3.80-5.40) m/uL Hgb 10.7 L (11.4-16.0) gm/dL Hct 33.4 L (34.0-46.0) % MCV 83.7 (80.0-100.0) fL MCH 26.9 (25.0-35.0) pg MCHC 32.1 (31.0-37.0) g/dL RDW 15.8 H (11.5-15.5) % Plt Count 201 (150-450) k/uL MPV 8.2 Neutrophils % 59 % Lymphocytes % 13 % Monocytes % 6 % Eosinophils % 20 % Basophils % 0 % Neutrophils # 4.6 (1.3-7.7) k/uL Lymphocytes # 1.0 (1.0-4.8) k/uL Monocytes # 0.4 (0-1.0) k/uL Eosinophils # 1.6 H (0-0.7) k/uL Basophils # 0.0 (0-0.2) k/uL Hypochromasia Slight PT 10.7 (9.0-12.0) sec INR 1.0 (<1.2) APTT 25.0 (22.0-30.0) sec Sodium 139 (137-145) mmol/L Potassium 4.8 (3.5-5.1) mmol/L Chloride 103 (98-107) mmol/L Carbon Dioxide 30 (22-30) mmol/L Anion Gap 6 mmol/L BUN 16 (7-17) mg/dL Creatinine 0.55 (0.52-1.04) mg/dL Est GFR (CKD-EPI)AfAm >90 (>60 ml/min/1.73 sqM) Est GFR (CKD-EPI)NonAf >90 (>60 ml/min/1.73 sqM) Glucose 92 (74-99) mg/dL Plasma Lactic Acid Jack (0.7-2.0) mmol/L Calcium 9.3 (8.4-10.2) mg/dL Magnesium 1.8 (1.6-2.3) mg/dL Total Bilirubin 0.4 (0.2-1.3) mg/dL AST 185 H (14-36) U/L ALT 241 H (4-34) U/L Alkaline Phosphatase 71 (38-126) U/L Troponin I (0.000-0.034) ng/mL NT-Pro-B Natriuret Pep 615 pg/mL Total Protein 6.7 (6.3-8.2) g/dL Albumin 3.6 (3.5-5.0) g/dL Influenza Type A (PCR) (Not Detectd) Influenza Type B (PCR) (Not Detectd) RSV (PCR) (Not Detectd) SARS-CoV-2 (PCR) (Not Detectd) 07/27/23 07/27/23 07/27/23 Range/Units 13:19 13:19 13:19 WBC (3.8-10.6) k/uL RBC (3.80-5.40) m/uL Hgb (11.4-16.0) gm/dL Hct (34.0-46.0) % MCV (80.0-100.0) fL MCH (25.0-35.0) pg MCHC (31.0-37.0) g/dL RDW (11.5-15.5) % Plt Count (150-450) k/uL MPV Neutrophils % % Lymphocytes % % Monocytes % % Eosinophils % % Basophils % % Neutrophils # (1.3-7.7) k/uL Lymphocytes # (1.0-4.8) k/uL Monocytes # (0-1.0) k/uL Eosinophils # (0-0.7) k/uL Basophils # (0-0.2) k/uL Hypochromasia PT (9.0-12.0) sec INR (<1.2) APTT (22.0-30.0) sec Sodium (137-145) mmol/L Potassium (3.5-5.1) mmol/L Chloride (98-107) mmol/L Carbon Dioxide (22-30) mmol/L Anion Gap mmol/L BUN (7-17) mg/dL Creatinine (0.52-1.04) mg/dL Est GFR (CKD-EPI)AfAm (>60 ml/min/1.73 sqM) Est GFR (CKD-EPI)NonAf (>60 ml/min/1.73 sqM) Glucose (74-99) mg/dL Plasma Lactic Acid Jack 0.8 (0.7-2.0) mmol/L Calcium (8.4-10.2) mg/dL Magnesium (1.6-2.3) mg/dL Total Bilirubin (0.2-1.3) mg/dL AST (14-36) U/L ALT (4-34) U/L Alkaline Phosphatase (38-126) U/L Troponin I <0.012 (0.000-0.034) ng/mL NT-Pro-B Natriuret Pep pg/mL Total Protein (6.3-8.2) g/dL Albumin (3.5-5.0) g/dL Influenza Type A (PCR) Not Detected (Not Detectd) Influenza Type B (PCR) Not Detected (Not Detectd) RSV (PCR) Not Detected (Not Detectd) SARS-CoV-2 (PCR) Not Detected (Not Detectd) Disposition Clinical Impression: COPD exacerbation Disposition: ADMITTED IP TO THIS HOSP Referrals: Tello Juárez MD [Primary Care Provider] - 1-2 days Time of Disposition: 15:13
[2023-07-27 13:31] LABS: Basophils % (A) 0 %; Eosinophils # (A) 1.6 k/uL (0-0.7); Eosinophils % (A) 20 %; HCT 33.4 % (34.0-46.0); HGB 10.7 gm/dL (11.4-16.0); Hypochromasia Slight; Lymphocytes % (A) 13 %; MCH 26.9 pg (25.0-35.0); MCHC 32.1 g/dL (31.0-37.0); MCV 83.7 fL (80.0-100.0); Mean Platelet Volume 8.2; Monocytes # (A) 0.4 k/uL (0-1.0); Monocytes % (A) 6 %; Neutrophils # (A) 4.6 k/uL (1.3-7.7); Neutrophils % (A) 59 %; Platelet Count 201 k/uL (150-450); RDW 15.8 % (11.5-15.5); WBC 7.8 k/uL (3.8-10.6)
--- NOTE | 2023-07-27 13:38 | XR ---
EXAMINATION TYPE: XR chest 2V DATE OF EXAM: 07/27/2023 1:34 PM COMPARISON: Chest radiographs from TECHNIQUE: XR chest 2V Frontal and lateral views of the chest. CLINICAL INDICATION:Female, 68 years old with history of difficulty breathing; FINDINGS: Lungs/Pleura: There is no evidence of pleural effusion, focal consolidation, or pneumothorax. Chroni c senescent parenchyma change. Hyperinflation. Pulmonary vascularity: Unremarkable. Heart/mediastinum: Cardiomediastinal silhouette is unremarkable. Atherosclerotic calcifications are seen in the aorta. Musculoskeletal: No acute osseous pathology. IMPRESSION: 1. No acute cardiopulmonary disease process. 2. COPD changes.
[2023-07-27 13:40] LABS: Prothrombin Time 10.7 sec (9.0-12.0)
[2023-07-27 13:44] LABS: ALT 241 U/L (4-34); AST 185 U/L (14-36); African American GFR (CKD) >90 (>60 ml/min/1.73 sqM); Albumin 3.6 g/dL (3.5-5.0); Alkaline Phosphatase 71 U/L (38-126); Anion Gap 6 mmol/L; Blood Urea Nitrogen 16 mg/dL (7-17); Calcium 9.3 mg/dL (8.4-10.2); Carbon Dioxide 30 mmol/L (22-30); Chloride 103 mmol/L (98-107); Glucose 92 mg/dL (74-99); Magnesium 1.8 mg/dL (1.6-2.3); Non-African American GFR(CKD) >90 (>60 ml/min/1.73 sqM); Potassium 4.8 mmol/L (3.5-5.1); Sodium 139 mmol/L (137-145); Total Bilirubin 0.4 mg/dL (0.2-1.3); Total Protein 6.7 g/dL (6.3-8.2)
[2023-07-27 13:52] LABS: NT-Pro-B-Type Natriuretic Pept 615 pg/mL
[2023-07-27] MEDS ORDERED: methylPREDNISolone SOD SUCCI 125 MG/2 ML VIAL IV STA (14:55)
[2023-07-27] MEDS ORDERED: cefTRIAXone IN SWFI 1,000 MG/10 ML SYRINGE IVP STA (14:55)
[2023-07-27] MEDS ORDERED: NALOXONE 0.4 MG/ML 1 ML VIAL IVP PRN (15:15)
[2023-07-27] MEDS: IPRATROPIUM-ALBUTEROL 3 ML NEB INHALATION SCH ×4 (16:53→20:19)
[2023-07-27] MEDS: AMOXIC-POT CLAV 875-125MG 1 EACH TAB PO SCH (21:34)
[2023-07-27] MEDS: methylPREDNISolone SOD SUCCI 125 MG/2 ML VIAL IV SCH (21:35)
[2023-07-28] MEDS: methylPREDNISolone SOD SUCCI 125 MG/2 ML VIAL IV SCH ×4 (00:35→18:10)
[2023-07-28] MEDS: IPRATROPIUM-ALBUTEROL 3 ML NEB INHALATION PRN (01:27)
--- NOTE | 2023-07-28 01:50 | P.CNPUL ---
History of Present Illness Consult date: 07/28/23 Requesting physician: Enmanuel Flores Reason for consult: COPD Chief complaint: Shortness of breath and cough History of present illness: I am seeing this patient in new consultation today 07/28/2023 for a acute COPD exacerbation. Patient is a 68-year-old female with past medical history signi ficant for severe oxygen dependent COPD with an FEV1 40% of predicted, atrial fibrillation anticoagulated with Eliquis, hypertension, hyperlipidemia, coronary artery disease with prior stent placement, CVA, brain aneurysms with previous clipping, GERD, and scoliosis. Her primary care provider is Dr. Juárez. She currently takes a combination of Trelegy inhaler, DuoNeb's [id number], and when necessary Ventolin HFA. Patient presented to the emergency room yesterday afternoon complaining of progressively worsening shortness of breath over the last 24 hours. This was accompanied with wheezing, chest congestion, chest tightness, a minimally productive persistent cough with clear sputum. She thinks she might have contracted her granddaughter's cold. Denies any fevers or hemoptysis. Admits intermittent heart palpitations. Denies any chest pain, lightheadedness, syncope, lower extremity swelling, orthopnea. She contacted her home health nurse, who recommended that she come to the hospital. Patient is currently sitting up in bed, on 3 L/m nasal cannula, in no acute distress. Chest x-ray on arrival showed no acute infiltrates or evidence of pneumonia. CBC on arrival showed a WBC count of 7.8, hemoglobin 10.7, hematocrit 33.4, platelets 201. BMP on arrival is unremarkable. LFTs were mildly elevated with an AST of 185, ALT of 241, ALP 71. Troponin less than 0.012. NT proBNP 615. Negative for influenza, RSV, COVID-19. Empirically covered on Augmentin. She has been started on appropriate medications for COPD. Patient seems hemodynamically stable. Review of Systems REVIEW OF SYSTEMS: CONSTITUTIONAL: Denies any recent significant weight loss or weight gain. EYES: Denies change in vision. EARS, NOSE, MOUTH, THROAT: Denies headaches, denies sore throat. CARDIOVASCULAR: Denies chest pain, palpitations or syncopal episodes. RESPIRATORY: See HPI GASTROINTESTINAL: Denies change in appetite, abdominal pain, nausea and vomiting, or diarrhea GENITOURINARY: Denies hematuria, denies infections. MUSKULOSKELETAL: Denies pain, denies swelling. INTEGUMENTARY: Denies rash, denies eczema. NEUROLOGICAL: Denies recent memory loss, no recent seizure activity. PSYCHIATRIC: Denies anxiety, denies depression. HEMATOLOGIC/LYMPHATIC: Denies anemia, denies enlarged lymph node Past Medical History Past Medical History: Atrial Fibrillation, Asthma, Coronary Artery Disease (CAD ), COPD, CVA/TIA, GERD/Reflux, Hyperlipidemia, Myocardial Infarction ([place]), Osteoarthritis (OA), Vascular Disorder Additional Past Medical History / Comment(s): Pt tested covid + 01/30/21 [facility] ER. Pt recently admitted to [facility] on 01/08/21 with acute on chronic respiratory failur e/tracheobronchitis severe or bronchopneumonia. 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 CVA X2 (no deficits). Last Myocardial Infarction Date:: 10/19/2019 History of Any Multi-Drug Resistant Organisms: None Reported Past Surgical History: Heart Catheterization With Stent, Orthopedic Surgery, Tubal Ligation Additional Past Surgical History / Comment(s): 2019 PCI/stent R PDA, 2000 angiogram/brain aneurysum that is clipped, abdominal aortogram with R common iliac artery PTBA/stent, left shoulder rotator cuff repair, spine lumbar disc 3x fused Past Anesthesia/Blood Transfusion Reactions: No Reported Reaction Date of Last Stent Placement:: 10/19/19 Past Psychological History: Anxiety, Depression Additional Psychological History / Comment(s): Pt resides alone. She has oxygen and a nebulizer. She does not drive, she uses a cab to get places. Smoking Status: Former smoker Past Alcohol Use History: None Reported Additional Past Alcohol Use History / Comment(s): Pt started smoking in 1975 and has quit august 2021 Past Drug Use History: None Reported - Past Family History Father Family Medical History: Coronary Artery Disease (CAD), Diabetes Mellitus Additional Family Medical History / Comment(s): Father had 3 vessel CABG. He at the age of 69 from heart disease. Mother Family Medical History: Myocardial Infarction ([place]) Additional Family Medical History / Comment(s): Mother of a [place] at the age of 42 yrs. Medications and Allergies Home Medications Medication Instructions Recorded Confirmed Type Famotidine [Pepcid] 20 mg PO BID 08/04/20 07/27/23 History Apixaban [Eliquis] 5 mg PO BID 02/27/21 07/27/23 History Montelukast [Singulair] 10 mg PO HS 02/27/21 07/27/23 History Atorvastatin [Lipitor] 80 mg PO HS 02/06/22 07/27/23 History Potassium Chloride [Klor-Con 10 ER] 10 meq PO DAILY 02/06/22 07/27/23 History Albuterol Nebulized [Ventolin 2.5 mg INHALATION RT-QID 12/08/22 07/27/23 History Nebulized] Albuterol Sulfate [Albuterol 2 puff PO RT-QID PRN 07/27/23 07/27/23 History Sulfate Hfa] Amiodarone [Cordarone] 200 mg PO HS 07/27/23 07/27/23 History Ezetimibe [Zetia] 10 mg PO HS 07/27/23 07/27/23 History Fluticasone/Umeclidin/Vilanter 1 puff INHALATION RT-DAILY 07/27/23 07/27/23 History [Trelegy Ellipta 100-62.5-25] lisinopriL [Zestril] 5 mg PO HS 07/27/23 07/27/23 History Allergies Allergy/AdvReac Type Severity Reaction Status Date / Time naproxen [From Naprosyn] Allergy Anaphylaxis Verified 07/27/23 14:32 Sulfa (Sulfonamide Allergy Anaphylaxis Verified 07/27/23 14:32 Antibiotics) azithromycin [From Zithromax] AdvReac does not Verified 07/27/23 14:32 take due to A-Fib Physical Exam Vitals: Vital Signs Temp Pulse Pulse Resp BP BP Pulse Ox 07/27/23 20:31 98.1 F 72 20 145/60 96 07/27/23 20:29 76 07/27/23 20:21 75 07/27/23 17:45 70 20 185/71 97 07/27/23 17:22 76 07/27/23 17:09 74 07/27/23 15:31 68 20 153/66 98 07/27/23 14:50 68 07/27/23 14:40 64 07/27/23 14:38 66 20 165/63 98 07/27/23 12:38 97.7 F 75 22 145/64 95 Intake and Output 07/27/23 07/27/23 07/28/23 14:59 22:59 06:59 Intake Total 120 Balance 120 Intake: Oral 120 Other: Voiding Method Toilet # Voids 1 Weight 65.771 kg 65.771 kg GENERAL EXAM: Alert, 68-year-old white female appearing stated age, comfortable in no apparent distress. HEAD: Normocephalic and atraumatic EYES: Normal reaction of pupils, equal size. NOSE: Clear with pink turbinates. THROAT: No erythema or exudates. NECK: No masses, no JVD. CHEST: No chest wall deformity. LUNGS: Equal air entry with diffuse rhonchi and expiratory wheezes heard throughout. On 3 L/m nasal cannula. No conversational dyspnea or accessory muscle use.. CVS: S1 and S2 normal with no audible murmur, regular rhythm. No extra heart sounds ABDOMEN: No hepatosplenomegaly, active bowel sounds, no guarding or rigidity. SPINE: No scoliosis or deformity SKIN: No rashes CENTRAL NERVOUS SYSTEM: No focal deficits, tone is normal in all 4 extremities. EXTREMITIES: There is no peripheral edema, clubbing, or cyanosis. Peripheral pu lses are intact. Results - Laboratory Findings CBC and BMP: 07/27/23 13:19 07/27/23 13:19 PT/INR, D-dimer PT 10.7 sec (9.0-12.0) 07/27/23 13:19 INR 1.0 (<1.2) 07/27/23 13:19 Abnormal lab findings: Abnormal Labs 07/27/23 07/27/23 13:19 13:19 Hgb 10.7 L Hct 33.4 L RDW 15.8 H Eosinophils # 1.6 H AST 185 H ALT 241 H - Diagnostic Findings Chest x-ray: image reviewed Assessment and Plan Assessment: Acute on chronic hypoxemic respiratory failure, secondary to an acute exacerbation of chronic obstructive pulmonary disease. Chest x-ray shows no acute cardiopulmonary process or evidence of pneumonia. Negative for influenza, RSV, COVID-19. On the patient's most recent previous admission for COPD, she did have a bronchoscopy with BAL completed on 04/24/2023 which had cultures positive for stenotrophomonas maltophilia. Patient completed a course of Fortaz and was discharged home. Chronic hypoxemic respiratory failure, on 3 L/m nasal cannula History of atrial fibrillation, currently anticoagulated on Eliquis, in normal sinus rhythm Chronic normocytic normochromic anemia, no obvious acute blood loss Mild transaminitis, possibly iatrogenic, chronically maintained a combination of statins and amiodarone. Essential hypertension Hyperlipidemia Coronary artery disease, with prior PCI History of CVA/TIA History of brain aneurysm status post clipping GERD without esophagitis Scoliosis Ex tobacco smoker, quitting over 3 years ago Plan: Patient's medications, labs, chest x-ray reviewed Continue supplemental oxygen Patient was started on empiric antibiotics, procalcitonin level pending Started on a combination of DuoNeb's, Symbicort inhaler, and IV Solu-Medrol Negative for influenza, RSV, COVID-19 Chest x-ray clear of infiltrates or evidence of pneumonia We will continue to follow I have personally seen and examined the patient, performed the documentation and the assessment and plan as written. Number of minutes spent on the visit:20 Is a joint evaluation that was done along with the nurse practitioner. The patient was advised for an acute choked exacerbation. The patient is broken spastic and wheezing. Chest x-ray is consistent with COPD without any acute cardiac pulmonary abnormalities. Previous bronchoscopy from March 2023 showed stenotrophomonas. The patient was treated accordingly. For now, the patient will be treated for acute COPD exacerbation with accommodation bronchodilators and steroids. She has a home oxygen concentrator and she is using it at 2-3 L/m nasal cannula. She will need portable oxygen tanks. Home medications resumed. We'll continue to follow. Time with Patient: Greater than 30
[2023-07-28] MEDS ORDERED: DEXTROSE 50% SYRINGE 50 ML IVP PRN ×2 (06:12)
[2023-07-28 06:20] LABS: Glucose,Whole Blood 153 mg/dL (70-110)
[2023-07-28] MEDS: INSULIN ASPART (NovoLOG) 100 UNIT/ML VIAL SQ SCH ×4 (06:40→21:12)
[2023-07-28] MEDS ORDERED: SYMBICORT 80-4.5 MCG INHALER INHALATION SCH (08:00)
[2023-07-28] MEDS: APIXABAN 5 MG TAB PO SCH ×2 (08:20→20:15)
[2023-07-28] MEDS: AMOXIC-POT CLAV 875-125MG 1 EACH TAB PO SCH ×2 (08:20→20:15)
[2023-07-28] MEDS: FAMOTIDINE 20 MG TAB PO SCH ×2 (08:20→20:15)
[2023-07-28] MEDS: IPRATROPIUM-ALBUTEROL 3 ML NEB INHALATION SCH ×4 (09:17→21:11)
[2023-07-28] MEDS: SYMBICORT 160-4.5 MCG INHALER INHALATION SCH ×2 (09:17→21:11)
[2023-07-28 12:15] LABS: Glucose,Whole Blood 166 mg/dL (70-110)
--- NOTE | 2023-07-28 14:18 | P.HPIM ---
History of Present Illness H&P Date: 07/28/23 History of present illness; patient is 68-year-old lady with past medical histor y significant for COPD ,atrial fibrillation anticoagulated with Eliquis, hypertension, hyperlipidemia, coronary artery disease with prior stent placement, CVA, brain aneurysms with previous clipping, GERD presented to the ER because of worsening shortness of breath. She stated that she was all right yesterday evening when she started noticing worsening shortness of breath. Patient also complaining of chest congestion. Patient complaining of productive cough. Denied any fever or chills. No pain of chest pain. Because his worsening shortness of breath she came to the ER Initial lab work done in the ER showed WBC 7.8, hemoglobin 10.7, platelet count 201, sodium 139 potassium 4.8, BUN 16, creatinine 0.55, AST 185, ALT 241 Influenza AMB not detected COVID-19 not detected RSV not detected Chest x-ray done in the ER showed no acute cardiopulmonary process She was admitted to medicine service REVIEW OF SYSTEMS: CONSTITUTIONAL: No fever, no malaise, no fatigue. HEENT: No recent visual problems or hearing problems. Denied any sore throat. CARDIOVASCULAR: As mentioned in HPI PULMONARY: As mentioned in HPI GASTROINTESTINAL: No diarrhea, no nausea, no vomiting, no abdominal pain. NEUROLOGICAL: No headaches, no weakness, no numbness. HEMATOLOGICAL: Denies any bleeding or petechiae. GENITOURINARY: Denies any burning micturition, frequency, or urgency. MUSCULOSKELETAL/RHEUMATOLOGICAL: Denies any joint pain, swelling, or any muscle pain. ENDOCRINE: Denies any polyuria or polydipsia. The rest of the 14-point review of systems is negative. PHYSICAL EXAMINATION: GENERAL: The patient is alert and oriented x3, not in any acute distress. Well developed, well nourished. HEENT: Pupils are round and equally reacting to light. EOMI. No scleral icterus. No conjunctival pallor. Normocephalic, atraumatic. No pharyngeal erythema. No thyromegaly. CARDIOVASCULAR: S1 and S2 present. No murmurs, rubs, or gallops. PULMONARY: Coarse breath sounds bilaterally, expiratory wheeze audible ABDOMEN: Soft, nontender, nondistended, normoactive bowel sounds. No palpable organomegaly. MUSCULOSKELETAL: No joint swelling or deformity. EXTREMITIES: No cyanosis, clubbing, or pedal edema. NEUROLOGICAL: Gross neurological examination did not reveal any focal deficits. SKIN: No rashes. Assessment and plan Acute COPD exacerbation Elevated LFTs Atrial fibrillation Hypertension Hyperlipidemia Coronary artery disease History of CVA Monitor vital signs Monitor CBC Monitor CMP Continue telemetry monitoring Continue breathing treatments Continue IV Solu-Medrol Continue Amiodarone and Eliquis Pulmonology consulted Labs and medication were reviewed.. Continue same treatment. Continue with symptomatic treatment. Resume home medication. Monitor labs and vitals. DVT and GI prophylaxis. Further recommendations as per clinical course of the patient Dictation was produced using [employer] dictation software. please excuse any grammatical, word or spelling errors. Past Medical History Past Medical History: Atrial Fibrillation, Asthma, Coronary Artery Disease (CAD), COPD, CVA/TIA, GERD/Reflux, Hyperlipidemia, Myocardial Infarction ([place]), Osteoarthritis (OA), Vascular Disorder Additional Past Medical History / Comment(s): Pt tested covid + 01/30/21 [facility] ER. Pt recently admitted to [facility] on 01/08/21 with acute on chronic respiratory failure/tracheobronchitis severe or bronchopneumonia. 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 CVA X2 (no deficits). Last Myocardial Infarction Date:: 10/19/2019 History of Any Multi-Drug Resistant Organisms: None Reported Past Surgical History: Heart Catheterization With Stent, Orthopedic Surgery, Tubal Ligation Additional Past Surgical History / Comment(s): 2019 PCI/stent R PDA, 2000 angiogram/brain aneurysum that is clipped, abdominal aortogram with R common iliac artery PTBA/stent, left shoulder rotator cuff repair, spine lumbar disc 3x fused Past Anesthesia/Blood Transfusion Reactions: No Reported Reaction Date of Last Stent Placement:: 10/19/19 Past Psychological History: Anxiety, Depression Additional Psychological History / Comment(s): Pt resides alone. She has oxygen and a nebulizer. She does not drive, she uses a cab to get places. Smoking Status: Former smoker Past Alcohol Use History: None Reported Additional Past Alcohol Use History / Comment(s): Pt started smoking in 1975 and has quit august 2021 Past Drug Use History: None Reported - Past Family History Father Family Medical History: Coronary Artery Disease (CAD), Diabetes Mellitus Additional Family Medical History / Comment(s): Father had 3 vessel CABG. He at the age of 69 from heart disease. Mother Family Medical History: Myocardial Infarction (MN) Additional Family Medical History / Comment(s): Mother of a MN at the age of 42 yrs. Medications and Allergies Home Medications Medication Instructions Recorded Confirmed Type Famotidine [Pepcid] 20 mg PO BID 08/04/20 07/27/23 History Apixaban [Eliquis] 5 mg PO BID 02/27/21 07/27/23 History Montelukast [Singulair] 10 mg PO HS 02/27/21 07/27/23 History Atorvastatin [Lipitor] 80 mg PO HS 02/06/22 07/27/23 History Potassium Chloride [Klor-Con 10 ER] 10 meq PO DAILY 02/06/22 07/27/23 History Albuterol Nebulized [Ventolin 2.5 mg INHALATION RT-QID 12/08/22 07/27/23 History Nebulized] Albuterol Sulfate [Albuterol 2 puff PO RT-QID PRN 07/27/23 07/27/23 History Sulfate Hfa] Amiodarone [Cordarone] 200 mg PO HS 07/27/23 07/27/23 History Ezetimibe [Zetia] 10 mg PO HS 07/27/23 07/27/23 History Fluticasone/Umeclidin/Vilanter 1 puff INHALATION RT-DAILY 07/27/23 07/27/23 H istory [Trelegy Ellipta 100-62.5-25] lisinopriL [Zestril] 5 mg PO HS 07/27/23 07/27/23 History Allergies Allergy/AdvReac Type Severity Reaction Status Date / Time naproxen [From Naprosyn] Allergy Anaphylaxis Verified 07/27/23 14:32 Sulfa (Sulfonamide Allergy Anaphylaxis Verified 07/27/23 14:32 Antibiotics) azithromycin [From Zithromax] AdvReac does not Verified 07/27/23 14:32 take due to A-Fib Physical Exam Vitals: Vital Signs Temp Pulse Pulse Resp BP BP Pulse Ox 07/28/23 13:33 97.8 F 80 16 143/76 95 07/28/23 12:37 79 07/28/23 12:25 79 07/28/23 09:26 79 07/28/23 09:18 79 95 07/28/23 08:00 62 16 07/28/23 07:00 98.1 F 62 16 174/68 95 07/28/23 03:06 97.6 F 75 17 159/65 98 07/28/23 01:34 82 07/28/23 01:27 80 07/27/23 20:31 98.1 F 72 20 145/60 96 07/27/23 20:29 76 07/27/23 20:21 75 07/27/23 17:45 70 20 185/71 97 07/27/23 17:22 76 07/27/23 17:09 74 07/27/23 15:31 68 20 153/66 98 07/27/23 14:50 68 07/27/23 14:40 64 07/27/23 14:38 66 20 165/63 98 Intake and Output 07/27/23 07/28/23 07/28/23 22:59 06:59 14:59 Intake Total 120 118 Balance 120 118 Intake: Oral 120 118 Other: Voiding Method Toilet Toilet # Voids 1 2 1 Weight 65.771 kg Results CBC & Chem 7: 07/27/23 13:19 07/27/23 13:19 Labs: Abnormal Lab Results - Last 24 Hours (Table) 07/27/23 07/28/23 07/28/23 Range/Units 13:19 06:20 12:14 POC Glucose (mg/dL) 153 H 166 H (70-110) mg/dL Procalcitonin 0.18 H (0.02-0.09) ng/mL Thrombosis Risk Factor Assmnt - Choose All That Apply Any of the Below Risk Factors Present?: Yes Each Factor Represents 1 point: Abnormal pulmonary function (COPD) Each Risk Factor Represents 2 Points: Age 61-74 years Thrombosis Risk Factor Assessment Total Risk Factor Score: 3 Thrombosis Risk Factor Assessment Level: Moderate Risk
[2023-07-28 18:01] LABS: Glucose,Whole Blood 134 mg/dL (70-110)
[2023-07-28 20:17] LABS: Glucose,Whole Blood 174 mg/dL (70-110)
[2023-07-28] MEDS ORDERED: lisinopriL 5 MG TAB PO SCH (21:00)
[2023-07-28] MEDS ORDERED: MONTELUKAST 10 MG TAB PO SCH (21:00)
[2023-07-28] MEDS ORDERED: AMIODARONE 200 MG TAB PO SCH (21:00)
[2023-07-28] MEDS ORDERED: ATORVASTATIN 80 MG TAB PO SCH (21:00)
[2023-07-28] MEDS ORDERED: EZETIMIBE 10 MG TAB PO SCH (21:00)
[2023-07-29] MEDS: methylPREDNISolone SOD SUCCI 125 MG/2 ML VIAL IV SCH ×3 (00:04→11:17)
[2023-07-29] MEDS: IPRATROPIUM-ALBUTEROL 3 ML NEB INHALATION PRN ×2 (00:18→03:56)
[2023-07-29 05:46] LABS: Glucose,Whole Blood 159 mg/dL (70-110)
[2023-07-29] MEDS: INSULIN ASPART (NovoLOG) 100 UNIT/ML VIAL SQ SCH ×2 (05:48→12:49)
[2023-07-29] MEDS: APIXABAN 5 MG TAB PO SCH (08:11)
[2023-07-29] MEDS: FAMOTIDINE 20 MG TAB PO SCH (08:11)
[2023-07-29] MEDS: AMOXIC-POT CLAV 875-125MG 1 EACH TAB PO SCH (08:11)
[2023-07-29 09:11] VITALS: RESP 18; TEMP 97.9
[2023-07-29] MEDS: SYMBICORT 160-4.5 MCG INHALER INHALATION SCH (09:16)
[2023-07-29] MEDS: IPRATROPIUM-ALBUTEROL 3 ML NEB INHALATION SCH ×3 (09:16→16:46)
[2023-07-29 11:36] LABS: Glucose,Whole Blood 238 mg/dL (70-110)
[2023-07-29 15:41] VITALS: BP 116/62; PULSE 70
== END 2023-07-29 16:46 | disposition home or self-care (01) | DRG 190 ==
LOC: EC 12:33 → 6NMEDSUR 15:17 → OBSVTOIN 07-28 12:21
PROVIDERS: ADMIT Internal Medicine; ATTEND Internal Medicine
DX: J44.1 Chronic obstructive pulmonary disease with (acute) exacerbation (principal); J96.21 Acute and chronic respiratory failure with hypoxia; I48.91 Unspecified atrial fibrillation; D64.9 Anemia, unspecified; E78.5 Hyperlipidemia, unspecified; R74.01 Elevation of levels of liver transaminase levels; Z20.822 Contact with and (suspected) exposure to COVID-19; Z86.73 Personal history of transient ischemic attack (TIA), and cerebral infarction without residual deficits; I25.10 Atherosclerotic heart disease of native coronary artery without angina pectoris; I10 Essential (primary) hypertension; Z79.01 Long term (current) use of anticoagulants; Z88.1 Allergy status to other antibiotic agents; Z88.5 Allergy status to narcotic agent; Z88.2 Allergy status to sulfonamides; Z87.891 Personal history of nicotine dependence; F41.9 Anxiety disorder, unspecified; F32.A Depression, unspecified; M41.9 Scoliosis, unspecified; J30.2 Other seasonal allergic rhinitis; I25.2 Old myocardial infarction; M19.90 Unspecified osteoarthritis, unspecified site; K21.9 Gastro-esophageal reflux disease without esophagitis; Z79.899 Other long term (current) drug therapy; Z82.49 Family history of ischemic heart disease and other diseases of the circulatory system; Z95.5 Presence of coronary angioplasty implant and graft; Z86.16 Personal history of COVID-19; Z99.81 Dependence on supplemental oxygen
CPT/HCPCS: 36415; 71046; 80053; 83036; 83605; 83735; 83880; 84145; 84484; 85025; 85610; 85730; 87040; 87636; 93005; 94640; 94760; 96374; 96375; 99285

== ENCOUNTER 2024-02-13 16:35 | Emergency (ER) | payer MEDICARE, OTHER ==
--- NOTE | 2024-02-13 16:52 | ED ---
Back Pain HPI - General Source: patient Limitations: no limitations <Paige Westonshua - Last Filed: 02/13/24 16:59> - General Source: patient, RN notes reviewed Limitations: no limitations <Nneka Garza - Last Filed: 02/13/24 23:20> - General Chief Complaint: Back Pain/Injury Stated Complaint: Back Pain Time Seen by Provider: 02/13/24 16:50 - History of Present Illness Initial Comments: 68-year-old female with history of degenerative disc disease presenting with mid back pain worsening over 2 weeks. States the pain is constant and tender to touch. Denies fall or injury. States she has had 3 spinal surgeries in the past, however has not been seen or had imaging done in the past 3 to 4 years. Denies fever, nausea, vomiting, weight loss, chest pain, shortness of breath, abdominal pain, weakness, numbness, tingling. She does not take any long-term management for pain. (Nneka Garza) - Related Data Home Medications Medication Instructions Recorded Confirmed Famotidine [Pepcid] 20 mg PO BID 08/04/20 07/27/23 Apixaban [Eliquis] 5 mg PO BID 02/27/21 07/27/23 Montelukast [Singulair] 10 mg PO HS 02/27/21 07/27/23 Atorvastatin [Lipitor] 80 mg PO HS 02/06/22 07/27/23 Potassium Chloride [Klor-Con 10 ER] 10 meq PO DAILY 02/06/22 07/27/23 Albuterol Nebulized [Ventolin 2.5 mg INHALATION RT-QID 12/08/22 07/27/23 Nebulized] Albuterol Sulfate [Albuterol 2 puff PO RT-QID PRN 07/27/23 07/27/23 Sulfate Hfa] Amiodarone [Cordarone] 200 mg PO HS 07/27/23 07/27/23 Ezetimibe [Zetia] 10 mg PO HS 07/27/23 07/27/23 Fluticasone/Umeclidin/Vilanter 1 puff INHALATION RT-DAILY 07/27/23 07/27/23 [Trelegy Ellipta 100-62.5-25] lisinopriL [Zestril] 5 mg PO HS 07/27/23 07/27/23 Previous Rx's Medication Instructions Recorded Amoxic-Pot Clav 875-125Mg 1 each PO Q12HR 7 Days #14 tab 07/29/23 [Augmentin 875-125] Budesonide-Formot 160-4.5 Mcg 2 puff INHALATION RT-BID 30 Days 07/29/23 [Symbicort 160-4.5 Mcg Inhaler] #1 each Ipratropium-Albuterol Nebulize 3 ml INHALATION RT-Q2H PRN each 07/29/23 [Duoneb 0.5 mg-3 mg/3 ml Soln] Ipratropium-Albuterol Nebulize 3 ml INHALATION RT-QID each 07/29/23 [Duoneb 0.5 mg-3 mg/3 ml Soln] predniSONE 10 mg PO DIRECTED #30 tab 07/29/23 methocarbamoL [Robaxin] 500 mg PO TID PRN #15 tab 02/13/24 Allergies Allergy/AdvReac Type Severity Reaction Status Date / Time naproxen [From Naprosyn] Allergy Anaphylaxis Verified 02/13/24 16:41 Sulfa (Sulfonamide Allergy Anaphylaxis Verified 02/13/24 16:41 Antibiotics) azithromycin [From Zithromax] AdvReac does not Verified 02/13/24 16:41 take due to A-Fib Review of Systems ROS Other: All systems not noted in ROS Statement are negative. <Cornelius Weston - Last Filed: 02/13/24 16:59> ROS Other: All systems not noted in ROS Statement are negative. <Nneka Garza - Last Filed: 02/13/24 23:20> ROS Statement: Those systems with pertinent positive or pertinent negative responses have been documented in the HPI. Past Medical History Past Medical History: Atrial Fibrillation, Asthma, Coronary Artery Disease (CAD), COPD, CVA/TIA, GERD/Reflux, Hyperlipidemia, Myocardial Infarction ([place]), Osteoarthritis (OA), Vascular Disorder Additional Past Medical History / Comment(s): Pt tested covid + 01/30/21 [facility] ER. Pt recently admitted to [facility] on 01/08/21 with acute on chronic respiratory fail ure/tracheobronchitis severe or bronchopneumonia. 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 CVA X2 (no deficits). Last Myocardial Infarction Date:: 10/19/2019 History of Any Multi-Drug Resistant Organisms: None Reported Past Surgical History: Heart Catheterization With Stent, Orthopedic Surgery, Tubal Ligation Additional Past Surgical History / Comment(s): 2019 PCI/stent R PDA, 2001 angiogram/brain aneurysum that is clipped, abdominal aortogram with R common iliac artery PTBA/stent, left shoulder rotator cuff repair, spine lumbar disc 3x fused Past Anesthesia/Blood Transfusion Reactions: No Reported Reaction Date of Last Stent Placement:: 10/19/19 Past Psychological History: Anxiety, Depression Smoking Status: Former smoker Past Alcohol Use History: None Reported Past Drug Use History: None Reported - Past Family History Father Family Medical History: Coronary Artery Disease (CAD), Diabetes Mellitus Additional Family Medical History / Comment(s): Father had 3 vessel CABG. He at the age of 69 from heart disease. Mother Family Medical History: Myocardial Infarction (CO) Additional Family Medical History / Comment(s): Mother of a CO at the age of 42 yrs. <Cornelius Weston - Last Filed: 02/13/24 16:59> General Exam Limitations: no limitations <Cornelius Weston - Last Filed: 02/13/24 16:59> General appearance: alert, in no apparent distress Head exam: Present: atraumatic, normocephalic, normal inspection Neck exam: Present: normal inspection. Absent: tenderness, meningismus, lymphadenopathy Respiratory exam: Present: normal lung sounds bilaterally. Absent: respiratory distress, wheezes, rales, rhonchi, stridor Cardiovascular Exam: Present: regular rate, normal rhythm, normal heart sounds. Absent: systolic murmur, diastolic murmur, rubs, gallop, clicks GI/Abdominal exam: Present: soft, normal bowel sounds. Absent: distended, tenderness, guarding, rebound, rigid, pulsatile mass Extremities exam: Present: normal inspection, full ROM, normal capillary refill, other (Full range of motion, sensation, and radial pulses in bilateral upper extremities.). Absent: tenderness, pedal edema, joint swelling, calf tenderness Back exam: Present: normal inspection, full ROM, tenderness (Diffuse tenderness along thoracic spine.). Absent: CVA tenderness (R), CVA tenderness (L), paraspinal tenderness, rash noted Neurological exam: Present: alert, oriented X3, CN II-XII intact Skin exam: Present: warm, dry, intact, normal color. Absent: rash <Nneka Garza - Last Filed: 02/13/24 23:20> Course Vital Signs 02/13/24 02/13/24 16:39 20:00 Temperature 98.4 F 98.9 F Pulse Rate 77 68 Respiratory 20 16 Rate Blood Pressure 170/75 149/55 O2 Sat by Pulse 100 97 Oximetry Medical Decision Making <Nneka Garza - Last Filed: 02/13/24 23:20> - Medical Decision Making Was pt. sent in by a medical professional or institution (, PA, RECEIVING CLERK, urgent care, hospital, or group home...) When possible be specific @ -No Did you speak to anyone other than the patient for history (EMS, parent, family, police, friend...)? What history was obtained from this source @ -No Did you review nursing and triage notes (agree or disagree)? Why? @ -I reviewed and agree with nursing and triage notes Were old charts reviewed (outside hosp., previous admission, EMS record, old EKG, old radiological studies, urgent care reports/EKG's, group home records)? Report findings @ -No old charts were reviewed Differential Diagnosis (chest pain, altered mental status, abdominal pain women, abdominal pain men, vaginal bleeding, weakness, fever, dyspnea, syncope, headache, dizziness, GI bleed, back pain, seizure, CVA, palpatations, mental health, musculoskeletal)? @ -Differential Back Pain: Strain, zoster, cauda equina syndrome, epidural abscess, vertebral osteomyelitis, discitis, fracture, subluxation, disc herniation, DJD, spinal stenosis, dissection, AAA, pancreatitis, peptic ulcer disease, pyelonephritis, kidney stone, this is not meant to be an all-inclusive list. EKG interpreted by me (3pts min.). @ -None X-rays interpreted by me (1pt min.). @ -X-ray of thoracic spine reveals degenerative disc disease CT interpreted by me (1pt min.). @ -None done U/S interpreted by me (1pt. min.). @ -None done What testing was considered but not performed or refused? (CT, X-rays, U/S, labs)? Why? @ -None What meds were considered but not given or refused? Why? @ -None Did you discuss the management of the patient with other professionals (professionals i.e. , PA, RECEIVING CLERK, lab, RT, psych nurse, social media campaign manager, splunk consultant, teacher, ski patrol officer, case checker)? Give summary @ -No Was smoking cessation discussed for >3mins.? @ -No Was critical care preformed (if so, how long)? @ -No Were there social determinants of health that impacted care today? How? (Homelessness, low income, unemployed, alcoholism, drug addiction, transportation, low edu. Level, literacy, decrease access to med. care, penitentiary, rehab)? @ -No Was there de-escalation of care discussed even if they declined (Discuss DNR or withdrawal of care, Hospice)? DNR status @ -No What co-morbidities impacted this encounter? (DM, HTN, Smoking, COPD, CAD, Ca ncer, CVA, ARF, Chemo, Hep., AIDS, mental health diagnosis, sleep apnea, morbid obesity)? @ -None Was patient admitted / discharged? Hospital course, mention meds given and route, prescriptions, significant lab abnormalities, going to OR and other pertinent info. @ -Patient was discharged. Patient was seen and evaluated for back pain x 2 weeks. Patient has history of DDD. Vitals were stable, tenderness to palpation of thoracic spine and paraspinal muscles are consistent with MSK related pain. Neurovascularly intact. X-ray reveals degenerative disc disease of the thoracic spine, no acute process. Patient was given morphine which improved pain. Patient was discharged with Tylenol 3's and Robaxin. Given orthopedic follow- up. Strict alarm symptoms discussed, return to ER if symptoms worsen. Patient discharged in stable condition. Case discussed with Dr. Traore Undiagnosed new problem with uncertain prognosis? @ -No Drug Therapy requiring intensive monitoring for toxicity (Heparin, Nitro, Insulin, Cardizem)? @ -No Were any procedures done? @ -No Diagnosis/symptom? @ -Degenerative disc disease Acute, or Chronic, or Acute on Chronic? @ -Acute on chronic Uncomplicated (without systemic symptoms) or Complicated (systemic symptoms)? @ -Uncomplicated Side effects of treatment? @ -No Exacerbation, Progression, or Severe Exacerbation? @ -No Poses a threat to life or bodily function? How? (Chest pain, [place], CO, pneumonia, PE, COPD, DKA, ARF, appy, cholecystitis, CVA, Diverticulitis, Homicidal, Suicidal, threat to staff... and all critical care pts) @ -No (Nneka Garza) Disposition <Cornelius Weston - Last Filed: 02/13/24 16:59> Is patient prescribed a controlled substance at d/c from ED?: No Time of Disposition: 19:21 <Nneka Garza - Last Filed: 02/13/24 23:20> Clinical Impression: Thoracic back pain Disposition: HOME SELF-CARE Condition: Stable Instructions (If sedation given, give patient instructions): Degenerative Disc Disease (ED) Additional Instructions: Please return to the Emergency Department if symptoms worsen or any other concerns. Prescriptions: methocarbamoL [Robaxin] 500 mg PO TID PRN #15 tab PRN Reason: muscle spasms Referrals: Tello Juárez MD [Primary Care Provider] - 1-2 days Betty Luna DO [Doctor of Osteopathic Medicine] - 1-2 days
[2024-02-13] MEDS: MORPHINE SULFATE 2 MG/ML SYRINGE IM STA (17:32)
--- NOTE | 2024-02-13 18:02 | XR ---
EXAMINATION TYPE: XR thoracic spine complete DATE OF EXAM: 02/13/2024 5:33 PM CLINICAL INDICATION:Female, 68 years old with history of back pain; [facility] COMPARISON: TECHNIQUE: 3 views of the thoracic spine in Frontal and lateral projections. FINDINGS: Bones appear somewhat demineralized. There is mild multilevel degenerative disc disease throughout th e thoracic spine with slight exaggerated thoracic kyphosis and mild apex right scoliosis. No compress ion fracture is seen. Pedicles are visible in each level. No paraspinous soft tissue abnormality is seen. Atherosclerotic calcifications of the aorta. Chronic appearing interstitial coarsening without acute abnormality of the imaged lungs. IMPRESSION: 1. Mild diffuse degenerative changes of the thoracic spine. 2. No evidence of an acute bony abnormality.
[2024-02-13] MEDS: ACET/COD 300 MG/30 MG STARTER PACK 6 TAB BTL PO STA (19:58)
[2024-02-13 20:19] VITALS: BP 149/55; PULSE 68; RESP 16; TEMP 98.9
== END 2024-02-13 20:16 | disposition home or self-care (01) ==
LOC: EC 16:35
DX: M47.814 Spondylosis without myelopathy or radiculopathy, thoracic region (principal); Z87.891 Personal history of nicotine dependence; Z88.2 Allergy status to sulfonamides; Z88.6 Allergy status to analgesic agent; Z88.1 Allergy status to other antibiotic agents
CPT/HCPCS: 72072; 99283; 96372; J2270

== ENCOUNTER 2024-12-28 12:20 | Emergency (ER) | payer MEDICARE, OTHER ==
[2024-12-28 12:26] VITALS: RESP 18
--- NOTE | 2024-12-28 12:39 | ED ---
General Adult HPI - General Chief complaint: Recheck/Abnormal Lab/Rx Stated complaint: left side facial swelling Time Seen by Provider: 12/28/24 12:20 Source: patient, EMS, RN notes reviewed, old records reviewed Mode of arrival: EMS Limitations: no limitations - History of Present Illness Initial comments: This is a 69-year-old female who presents to the emergency department stating that the other day her face was swollen as well as her tongue. Patient states today she woke up her lip was swollen and the side of her face is swollen. Patient denies any pain. Patient denies any fever chills. Patient has any redness. Patient denies any pain in her teeth. Denies any chest pain difficulty breathing or shortness of breath. Patient denies any problem swallowing. Patient denies any other complaints besides the swelling in her lip and face - Related Data Home Medications Medication Instructions Recorded Confirmed Famotidine [Pepcid] 20 mg PO BID 08/04/20 07/27/23 Apixaban [Eliquis] 5 mg PO BID 02/27/21 07/27/23 Montelukast [Singulair] 10 mg PO HS 02/27/21 07/27/23 Atorvastatin [Lipitor] 80 mg PO HS 02/06/22 07/27/23 Potassium Chloride [Klor-Con 10 ER] 10 meq PO DAILY 02/06/22 07/27/23 Albuterol Nebulized [Ventolin 2.5 mg INHALATION RT-QID 12/08/22 07/27/23 Nebulized] Albuterol Sulfate [Albuterol 2 puff PO RT-QID PRN 07/27/23 07/27/23 Sulfate Hfa] Amiodarone [Cordarone] 200 mg PO HS 07/27/23 07/27/23 Ezetimibe [Zetia] 10 mg PO HS 07/27/23 07/27/23 Fluticasone/Umeclidin/Vilanter 1 puff INHALATION RT-DAILY 07/27/23 07/27/23 [Trelegy Ellipta 100-62.5-25] lisinopriL [Zestril] 5 mg PO HS 07/27/23 07/27/23 Previous Rx's Medication Instructions Recorded Amoxic-Pot Clav 875-125Mg 1 each PO Q12HR 7 Days #14 tab 07/29/23 [Augmentin 875-125] Budesonide-Formot 160-4.5 Mcg 2 puff INHALATION RT-BID 30 Days 07/29/23 [Symbicort 160-4.5 Mcg Inhaler] #1 each Ipratropium-Albuterol Nebulize 3 ml INHALATION RT-Q2H PRN each 07/29/23 [Duoneb 0.5 mg-3 mg/3 ml Soln] Ipratropium-Albuterol Nebulize 3 ml INHALATION RT-QID each 07/29/23 [Duoneb 0.5 mg-3 mg/3 ml Soln] predniSONE 10 mg PO DIRECTED #30 tab 07/29/23 methocarbamoL [Robaxin] 500 mg PO TID PRN #15 tab 02/13/24 predniSONE [Deltasone] 40 mg PO DAILY #8 tab 12/28/24 Allergies Allergy/AdvReac Type Severity Reaction Status Date / Time naproxen [From Naprosyn] Allergy Anaphylaxis Verified 12/28/24 12:26 Sulfa (Sulfonamide Allergy Anaphylaxis Verified 12/28/24 12:26 Antibiotics) azithromycin [From Zithromax] AdvReac does not Verified 12/28/24 12:26 take due to A-Fib Review of Systems ROS Statement: Those systems with pertinent positive or pertinent negative responses have been documented in the HPI. ROS Other: All systems not noted in ROS Statement are negative. Past Medical History Past Medical History: Atrial Fibrillation, Asthma, Coronary Artery Disease (CAD), COPD, CVA/TIA, GERD/Reflux, Hyperlipidemia, Myocardial Infarction ([place]), Osteoarthritis (OA), Vascular Disorder Additional Past Medical History / Comment(s): Pt tested covid + 01/30/21 [facility] ER. Pt recently admitted to [facility] on 01/08/21 with acute on chronic respiratory failure/tracheobronchitis severe or bronchopneumonia. 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 CVA X2 (no deficits). Last Myocardial Infarction Date:: 10/19/2019 History of Any Multi-Drug Resistant Organisms: None Reported Past Surgical History: Heart Catheterization With Stent, Orthopedic Surgery, Tubal Ligation Additional Past Surgical History / Comment(s): 2019 PCI/stent R PDA, 2001 angiogram/brain aneurysum that is clipped, abdominal aortogram with R common iliac artery PTBA/stent, left shoulder rotator cuff repair, spine lumbar disc 3x fused Past Anesthesia/Blood Transfusion Reactions: No Reported Reaction Date of Last Stent Placement:: 10/19/19 Past Psychological History: Anxiety, Depression Smoking Status: Former smoker Past Alcohol Use History: None Reported Past Drug Use History: None Reported - Past Family History Father Family Medical History: Coronary Artery Disease (CAD), Diabetes Mellitus Additional Family Medical History / Comment(s): Father had 3 vessel CABG. He at the age of 69 from heart disease. Mother Family Medical History: Myocardial Infarction ([place]) Additional Family Medical History / Comment(s): Mother of a [place] at the age of 42 yrs. General Exam - General Exam Comments Initial Comments: GENERAL: Patient is well-developed and well-nourished. Patient is nontoxic and well- hydrated and is in no acute distress. ENT: Neck is soft and supple. No significant lymphadenopathy is noted. Oropharynx is clear. Moist mucous membranes. Neck has full range of motion without eliciting any pain. EYES: The sclera were anicteric and conjunctiva were pink and moist. Extraocular movements were intact and pupils were equal round and reactive to light. Eyelids were unremarkable. PULMONARY: Unlabored respirations. Good breath sounds bilaterally. No audible rales rhonchi or wheezing was noted. CARDIOVASCULAR: There is a regular rate and rhythm without any murmurs gallops or rubs. ABDOMEN: Soft and nontender with normal bowel sounds. SKIN: There is classic angioedema of the lip and side of the face. Patient also brought a picture of what her tongue look like earlier it was classic angioedema of the tongue NEUROLOGIC: Patient is alert and oriented x3. Cranial nerves II through XII are grossly intact. Motor and sensory are also intact. Normal speech, volume and content. Symmetrical smile. MUSCULOSKELETAL: Normal extremities with adequate strength and full range of motion. No lower extremity swelling or edema. No calf tenderness. LYMPHATICS: No significant lymphadenopathy is noted PSYCHIATRIC: Normal psychiatric evaluation. Limitations: no limitations Course Vital Signs 12/28/24 12:21 Temperature 98.4 F Pulse Rate 73 Respiratory 18 Rate Blood Pressure 179/72 O2 Sat by Pulse 94 L Oximetry Medical Decision Making - Medical Decision Making Was pt. sent in by a medical professional or institution ([facility] Lee, PHARMACOGENETICIST, urgent care, hospital, or shelter...) When possible be specific @ -No Did you speak to anyone other than the patient for history (EMS, parent, family, police, friend...)? What history was obtained from this source @ -No Did you review nursing and triage notes (agree or disagree)? Why? @ -I reviewed and agree with nursing and triage notes Were old charts reviewed (outside hosp., previous admission, EMS record, old EKG, old radiological studies, urgent care reports/EKG's, shelter records)? Report findings @ -No old charts were reviewed Differential Diagnosis? @ -Allergic reaction, angioedema, infected tooth, parotiditis this is not an all-inclusive list EKG interpreted by me (3pts min.). @ -As above X-rays interpreted by me (1pt min.). @ -None done CT interpreted by me (1pt min.). @ -None done U/S interpreted by me (1pt. min.). @ -None done What testing was considered but not performed or refused? (CT, X-rays, U/S, labs)? Why? @ -None What meds were considered but not given or refused? Why? @ -None Did you discuss the management of the patient with other professionals (professionals i.e. [facility]BERT Lee, PHARMACOGENETICIST, lab, RT, psych nurse, bilingual social worker, admiralty lawyer, teacher, military police officer, casework manager)? Give summary @ -No Was smoking cessation discussed for >3mins.? @ -No Was critical care preformed (if so, how long)? @ -No Were there social determinants of health that impacted care today? How? (Homelessness, low income, unemployed, alcoholism, drug addiction, transportation, low edu. Level, literacy, decrease access to med. care, care home, rehab)? @ -No Was there de-escalation of care discussed even if they declined (Discuss DNR or withdrawal of care, Hospice)? DNR status @ -No What co-morbidities impacted this encounter? (DM, HTN, Smoking, COPD, CAD, Cancer, CVA, ARF, Chemo, Hep., AIDS, mental health diagnosis, sleep apnea, morbid obesity)? @ -None Was patient admitted / discharged? Hospital course, mention meds given and route, prescriptions, significant lab abnormalities, going to OR and other pertinent info. @ -Patient had classic angioedema and I looked at the patient's med list she is on lisinopril. Patient states this happened a couple days ago she showed me a picture and that was even more classic picture of angioedema with tongue involvement on the left side of the tongue. Undiagnosed new problem with uncertain prognosis? @ -No Drug Therapy requiring intensive monitoring for toxicity (Heparin, Nitro, Insulin, Cardizem)? @ -No Were any procedures done? @ -No Diagnosis/symptom? @ -Angioedema Acute, or Chronic, or Acute on Chronic? @ -Acute Uncomplicated (without systemic symptoms) or Complicated (systemic symptoms)? @ -Uncomplicated Side effects of treatment? @ -No Exacerbation, Progression, or Severe Exacerbation? @ -No Poses a threat to life or bodily function? How? (Chest pain, [place], [place], pneumonia, PE, COPD, DKA, ARF, appy, cholecystitis, CVA, Diverticulitis, Homicidal, Suicidal, threat to staff... and all critical care pts) @ -No Disposition Clinical Impression: Angioedema Disposition: HOME SELF-CARE Condition: Good Instructions (If sedation given, give patient instructions): Angioedema (ED) Additional Instructions: Patient should stop taking lisinopril follow-up with the primary medical care doctor to be placed on another hypertensive if he deems necessary Prescriptions: predniSONE [Deltasone] 40 mg PO DAILY #8 tab Is patient prescribed a controlled substance at d/c from ED?: No Referrals: Tello Juárez MD [Primary Care Provider] - 1-2 days Time of Disposition: 12:39
[2024-12-28 13:07] VITALS: BP 168/55; PULSE 70; TEMP 98.3
== END 2024-12-28 13:15 | disposition home or self-care (01) ==
LOC: EC 12:20
DX: K14.8 Other diseases of tongue (principal); Z87.891 Personal history of nicotine dependence
CPT/HCPCS: 99283

== ENCOUNTER 2025-05-14 19:36 | Outpatient (CLI) | payer MEDICARE, OTHER ==
[2025-05-15 20:00] LABS: Urine Alcohol Negative (Negative); Urine Barbiturate Negative (Negative)
--- NOTE | 2025-06-05 22:59 | P.PCN ---
Date of Procedure: 05/14/25 Operative Findings: Polysomnography report Date of service is 05/14/2025 69-year-old male patient, known history of COPD with chronic hypoxic respiratory failure, hypertension, hyperlipidemia, coronary artery disease, history of CVA, history of [employer] aneurysm clipping, scoliosis and paroxysmal atrial fibrillation. The patient patient was also suspected to have obstructive sleep apnea. Based on that, the patient was given a PSG and followed by an MSLT. Pertinent physical findings Weight is 145 with a body mass index of 22.7 Technical description The patient was studied using a standard complex polysomnography protocol that included recording of the Lead II EKG, Central, occipital and frontal EEG, right and left outer canthus EOG, submental EMG, right and left anterior tibialis EMG, respiratory airflow by thermocouple and or pressure/flow transducer, respiratory efforts by abdominal and thoracic PVDF belts, oxygen saturation by cable oximetry. Position by observation synchronized the PSG. Equipment used: [employer]. Sleep architecture The total recording duration was 497.5 minutes. The total sleep time was 370.5 minutes. The wake after sleep onset time was 73 minutes. Overall sleep efficiency was 74.5%. Latency to sleep onset was 53.5 minutes. The sleep architecture was catheterized by 3.8% stage I, 62.6% stage II, 6.2% stage III and a total of 27.7% REM sleep. Respiratory analysis The patient had a total of 2 obstructive events of which 2 were obstructive apneas, 0 were mixed apneas and 0 were obstructive hypopneas. The resulting AHI was 0.5. Oxygenation analysis The baseline pulse ox while awake was 96%. Lowest oxygen saturation was 86% and the patient spent approximately 1.4 minutes at the sleep time below pulse ox of 89%. Cardiac rates The patient had an average heart rate of 68 with a minimum heart rate of 65 and a maximum heart of 72 Periodic limb movements There was a total of 24 periodic limb movement activity with an index of 3.9 Arousal event The patient had a total of 50 arousals with an index of 8.1. The respiratory arousal index was 0. Assessment No evidence of any sleep breathing disorder. AHI 0.5. No evidence of any nocturnal oxygen desaturations Adequate sleep architecture No significant sleep fragmentation no significant periodic limb movement activity. MSLT The patient underwent a full night polysomnography during which there was more than 6 hours of sleep. The patient was complaining of excessive daytime sleepiness and for that reason an MSLT was performed. The electrographic variables included EEG, EMG, EOG and ECG. The patient was monitored throughout 520-minute opportunities to nap at 2-hour intervals. For each nap, the patient was allowed 20 minutes to fall asleep. Once asleep, the patient was awakened after 15 minutes. Between naps, the patient was kept as alert as possible. Results The patient was able to fall asleep in 5 different naps. The latency for not #1 was 15.5 minutes, night #2 was 9.5 minutes, not #3 was 9.5 minutes/min, 4 was 9 minutes and not #5 was 10.5 minutes. The mean sleep latency for 5 naps was 10.8 minutes. There was no REM onset sleep. Impression No evidence of any pathologic hypersomnia or narcolepsy. No evidence of any REM onset sleep Plan Treat medically. Optimize sleep hygiene measures. Stimulants if needed. No need for CPAP therapy.
== END 2025-05-15 16:30 | disposition home or self-care (01) ==
LOC: 3 N SLEEP 19:36
PROVIDERS: ATTEND Internal Medicine Critical Care Medicine
DX: G47.33 Obstructive sleep apnea (adult) (pediatric)
CPT/HCPCS: 80306; 95805; 95810